=== PATIENT | male | born 1945 | race Caucasian/White ===

== ENCOUNTER 2022-12-07 10:12 | Outpatient (OUT) | payer MEDICARE, OTHER, SELFPAY ==
[2022-12-07 22:19] LABS: Anion Gap 13.2; BUN Creatinine Ratio 16.8; Calcium 8.9 mg/dL (8.5-10.1); Carbon Dioxide 28.4 mmol/L (21.0-32.0); Chloride 99 mmol/L (98-107); Estimated GFR (African America 43 (>=60); Estimated GFR (Non-African Ame 35 (>=60); Glucose 217 mg/dL (74-106); Potassium 3.6 mmol/L (3.5-5.1); Sodium 137 mmol/L (136-145)
== END 2022-12-07 10:13 ==
LOC: LAB 10:23
PROVIDERS: PCP Family Medicine; Visit Provider Nurse Practitioner Family
DX: I50.33 Acute on chronic diastolic (congestive) heart failure (principal); N18.32 Chronic kidney disease, stage 3b
CPT/HCPCS: 36415; 80048

== ENCOUNTER 2023-02-10 11:10 | Outpatient (OUT) | payer MEDICARE, OTHER, SELFPAY ==
[2023-02-10 11:43] LABS: Hematocrit 38.2 % (42.0-54.0); Hemoglobin 12.7 g/dL (14.0-18.0)
[2023-02-10 11:47] LABS: Creatinine Urine Random 67.46 mg/dL (20.00-300.00); Microalbum Creatinine Ratio Ur 25.2 mg/g (0.0-29.9); Microalbumin Urine Random 1.7 mg/dL (<=30.0)
[2023-02-10 12:13] LABS: Albumin Level 3.8 g/dL (3.4-5.0); Anion Gap 11.8; Calcium 8.7 mg/dL (8.5-10.1); Carbon Dioxide 30.2 mmol/L (21.0-32.0); Chloride 99 mmol/L (98-107); Estimated GFR (African America 45 (>=60); Estimated GFR (Non-African Ame 37 (>=60); Glucose 280 mg/dL (74-106); Magnesium 1.8 mg/dL (1.8-2.4); Phosphorus 3.9 mg/dL (2.6-4.7); Sodium 137 mmol/L (136-145); Uric Acid 7.6 mg/dL (3.5-7.2)
[2023-02-10 12:31] LABS: Bilirubin Urine NEGATIVE (NEGATIVE); Blood Urine NEGATIVE (NEGATIVE); Clarity Urine CLEAR (CLEAR); Color Urine YELLOW (YELLOW); Glucose Urine UA 250 mg/dL (NEGATIVE); Ketones Urine NEGATIVE (NEGATIVE); Leukocyte Esterase Urine NEGATIVE (NEGATIVE); Nitrite Urine NEGATIVE (NEGATIVE); Protein Urine NEGATIVE (NEG/TRACE); Specific Gravity Urine 1.015 (1.005-1.025); Urobilinogen Urine 0.2 EU/dL (0.2-1.0)
[2023-02-11 15:11] LABS: PTH, Intact 54 pg/mL (15-65)
== END 2023-02-10 11:11 | disposition home or self-care (01) ==
LOC: LAB 11:10
PROVIDERS: PCP Family Medicine
DX: N18.32 Chronic kidney disease, stage 3b (principal)
CPT/HCPCS: 36415; 80048; 81003; 82042; 82043; 82306; 82570; 83735; 83970; 84100; 84550; 85014; 85018

== ENCOUNTER 2023-03-28 13:01 | Outpatient (OUT) | payer MEDICARE, OTHER, SELFPAY ==
--- NOTE | 2023-03-28 14:02 | CA_ITS ---
Patient: JASON DEAN Exam Date: 03/28/2023 : 1945 Gender:M Ordering : [facility] Admission #: [id number] Family : Order #: [id number] CLICK HERE TO VIEW EXAM ECHOCARDIOGRAM REPORT PROCEDURE: CA ECHO DOPPLER COMPLETE INDICATIONS: Nonrheumatic aortic stenosis, Aortic valve replacement COMPARISON: None. DESCRIPTION: COMPLETE ECHOCARDIOGRAM Real-time transthoracic echocardiography with 2D, M-mode, spectral and color flow Doppler performed. QUALITY: Technical quality was good. LEFT VENTRICLE: Normal chamber size. Borderline left ventricular hypertrophy. LV EF: Global left ventricular systolic function is hyperdynamic. Calculated left ventricular ejection fraction is 70%. DIASTOLIC: Normal diastolic function. ATRIAL SEPTUM: Inadequately seen. LEFT ATRIUM: Normal chamber size. RIGHT ATRIUM: Normal chamber size. RIGHT VENTRICLE: Normal chamber size. Normal right ventricular systolic function. Pacer wire present. TRICUSPID VALVE: Normal mobility and thickness. No stenosis with mild regurgitation. No evidence of pulmonary hypertension. RVSP 33mmHg MITRAL VALVE: Normal mobility and thickness. No evidence of mitral valve stenosis. There is no mitral annular calcification. Mild mitral regurgitation. AORTIC VALVE: Bio-Prosthetic valve appears well seated in the aortic position with elevated Doppler flows; these may be exaggerated due to hyperdynamic left ventricular systolic function. DVI 0.30. No perivalvular regurgitation. No aortic regurgitation. AORTIC ROOT: Normal diameter and appearance. PULMONIC VALVE: Normal thickness and mobility. No stenosis. Trivial regurgitation. PERICARDIUM: No evidence of pericardial effusion. IVC: Collapses with inspirations. Normal size. CONCLUSION: 1. Global left ventricular systolic function is hyperdynamic; visually estimated ejection fraction is 65 to 70% 2. Borderline left ventricular hypertrophy 3. Normal diastolic function 4. The right ventricle is normal in size and systolic function 5. Mild tricuspid regurgitation 6. Mild mitral regurgitation 7. A bioprosthetic aortic valve is seen with elevated Doppler flows; these may be exaggerated due to hyperdynamic left ventricular systolic function. No significant valvular or perivalvular regurgitation Adult Echocardiography Procedure Report Left Ventricle LVEDD (3.7 - 5.6 cm): 4.29 cm LVESD (2.2 - 4.0 cm): 3.00 cm LVIVS thickness (0.6 - 1.2 cm): 1.08 cm LVPW thickness (0.5 - 1.0 cm): 1.04 cm e': 0.11 m/s E - e': 10.81 LVOT Max Gradient: 3.19 mm[Hg] LVOT Area (cm2): 0.89 m/s Peak Velocity (LVOT): 0.89 m/s Mean Velocity (LVOT): 0.57 m/s LVOT Diameter 1.96 cm Left Ventricular Ejection Fraction: 70.04 % Left Atrium LA Volume Index (2D A2C): 32.29 ml/m2 Left Atrium Systolic Dimension: 3.98 cm Mitral Valve MV E to A Ratio: 1.26 Mitral Valve A-Wave Peak Velocity: 0.92 m/s Mitral Valve E-Wave Peak Velocity: 1.17 m/s Right Ventricle RV Internal Diastolic Dimension: 3.29 cm Aorta AO Root Diam: 2.83 cm Ascending Ao Diam: 2.87 cm Aortic Valve AoV Area (Peak Jerardo): 1.00 cm2, 0.90 cm2 AoV Area (VTI): 1.02 cm2, 0.94 cm2 Peak Velocity(Antegrade Flow): 2.98 m/s, 2.39 m/s, 2.65 m/s Peak Gradient(Antegrade Flow): 35.62 mm[Hg], 22.91 mm[Hg], 28.11 mm[Hg] Mean Velocity(Antegrade Flow): 2.05 m/s, 1.67 m/s, 1.73 m/s Mean Gradient(Antegrade Flow): 18.51 mm[Hg], 12.62 mm[Hg], 13.66 mm[Hg] Velocity Time Integral: 76.92 cm, 67.10 cm, 69.69 cm Tricuspid Valve Peak Velocity (Regurgitant Flow): 2.51 m/s, 2.77 m/s, 2.74 m/s Pulmonic Valve Mean Gradient: 3.85 mm[Hg], 3.12 mm[Hg] Mean Velocity: 0.90 m/s, 0.80 m/s Peak Velocity: 1.29 m/s Peak Gradient: 7.03 mm[Hg], 6.20 mm[Hg] Right Atrium Right Atrium Systolic Pressure: 47.10 ml, 47.10 ml Dictated by: Johnathan Bowman M.D. on 03/30/2023 at 16:31 Approved by: Johnathan Bowman M.D. on 03/30/2023 at 16:37
== END 2023-03-28 13:02 | disposition home or self-care (01) ==
LOC: CARD 13:02
PROVIDERS: PCP Family Medicine; Visit Provider Nurse Practitioner Family
DX: I08.3 Combined rheumatic disorders of mitral, aortic and tricuspid valves (principal); Z95.2 Presence of prosthetic heart valve
CPT/HCPCS: 93306

== ENCOUNTER 2023-07-22 12:38 | Emergency (ER) | payer MEDICARE, OTHER, SELFPAY ==
[2023-07-22 12:49] VITALS: BP 162/66; PULSE 71; RESP 18; TEMP 36.5; O2SAT 97; BMI 27.6
--- NOTE | 2023-07-22 13:12 | ED.LOWEXI1 ---
HPI - Extremity Injury (Lower) General Chief Complaint: Extremity Injury, Lower Stated Complaint: LOW EXTREMITY PAIN Time Seen by Provider: 07/22/23 12:50 Source: patient and family Mode of arrival: Wheelchair Limitations: physical limitation History of Present Illness HPI Narrative: the patient was helping his apply a fitted sheet to the bed. He bent over and leaned and felt pain in the left hamstring. This occurred about 4 days ago. He initially had to lay on the floor until the spasms in the hamstring stopped in order to allow the muscles to calm down . The pain lessened but is not going away. He has been taking tylenol for pain. He admits that he has nt decreased his activity since the injury. No application of ice or heat at home. Related Data Previous Rx's Medication Instructions Recorded methocarbamol 750 mg tablet 750 mg PO Q6H PRN pain #30 tabs 07/22/23 Allergies Allergy/AdvReac Type Severity Reaction Status Date / Time Sulfa (Sulfonamide AdvReac Intermediate swelling Verified 07/22/23 12:49 Antibiotics) [facility] Social History Smoking status: Former smoker Exam Narrative Exam Narrative: Nurses notes and vital signs reviewed and patient is not hypoxic. afebrile General: Well-appearing and in no apparent distress. Skin: Warm, dry, no pallor noted. No rash. Cardiovascular: Regular Rate and Rhythm without murmur, gallop or rub. Normal peripheral perfusion. Respiratory: No accessory muscle use or respiratory distress. Lungs are clear to auscultation, no wheezing, rales or rhonchi Musculoskeletal: Left LE with normal ROM. Soft tissue tenderness to the left hamstring without ecchymosis, palpable mass or deficit in movement of the hip and knee. No calf or popliteal tenderness, no lower extremity edema/swelling Neurological: A&O x4. No cranial nerve dysfunction observed. No truncal ataxia. Moves all extremities. Sensation intact. Psychiatric: Cooperative and interactive. Normal mood and affect. Constitutional Vital Signs, click to edit/add: Last Vital Signs Temp 97.7 F 07/22/23 12:49 Pulse 71 07/22/23 12:49 Resp 18 07/22/23 12:49 BP 162/66 H 07/22/23 12:49 Pulse Ox 97 07/22/23 12:49 O2 Del Method Room Air 07/22/23 12:49 Course Vital Signs Vital signs: Vital Signs Temperature 97.7 F 07/22/23 12:49 Pulse Rate 71 07/22/23 12:49 Respiratory Rate 18 07/22/23 12:49 Blood Pressure 162/66 H 07/22/23 12:49 Pulse Oximetry 97 07/22/23 12:49 Oxygen Delivery Method Room Air 07/22/23 12:49 Temperature 97.7 F 07/22/23 12:49 Pulse Rate 71 07/22/23 12:49 Respiratory Rate 18 07/22/23 12:49 Blood Pressure 162/66 H 07/22/23 12:49 Pulse Oximetry 97 07/22/23 12:49 Oxygen Delivery Method Room Air 07/22/23 12:49 MDM - Extremity Injury (Lower) MDM Narrative Medical decision making narrative: Patient has a muscular strain of the left hamstring muscles. He was given reassurance and discharged home with prescription for Robaxin and recommendation to curtail activity to allow the area to heal. Discussed application of heat to the area to facilitate healing. Discharge Plan Discharge Chief Complaint: Extremity Injury, Lower Clinical Impression: Left hamstring muscle strain Qualifiers: Encounter type: initial encounter Qualified Code(s): S76.312A - Strain of muscle, fascia and tendon of the posterior muscle group at thigh level, left thigh, initial encounter Patient Disposition: Home, Self-Care Time of Disposition Decision: 13:18 Prescriptions / Home Meds: New methocarbamol 750 mg tablet 750 mg PO Q6H PRN (Reason: pain) Qty: 30 0RF Instructions: Hamstring Injury (ED), Hamstring Exercises (ED) Stand Alone Forms: Portal Instructions Referrals: Idris Donnelly MD [Primary Care Provider] - 1 week
== END 2023-07-22 13:43 | disposition home or self-care (01) ==
PROVIDERS: Emergency Provider Emergency Medicine; PCP Family Medicine
DX: S76.312A Strain of muscle, fascia and tendon of the posterior muscle group at thigh level, left thigh, initial encounter (principal); Z87.891 Personal history of nicotine dependence; X50.9XXA Other and unspecified overexertion or strenuous movements or postures, initial encounter
CPT/HCPCS: 99283

== ENCOUNTER 2023-08-09 10:54 | Outpatient (OUT) | payer MEDICARE, OTHER, SELFPAY ==
--- OUTSIDE RECORDS SUMMARY | 2023-08-09 11:13 | XMS_ITS | CCD ---
Author Name Unknown Address [address] [place] [address] Organization [facility] Care Team Providers Care Fire Sprinkler Installer Name Role Phone MASROOR, JANETH Admitting Unavailable JORGE, JANETH Attending Unavailable IDRIS JOSE Primary Care Unavailable IDRIS JOSE Referring Unavailable MASROOR, JANETH Surgeon Unavailable SC Procedure Practitioner Unavailab MINE Stafford Surgeon Unavailable SC Procedure Practitioner Unavailab GILBEROT Peña Surgeon Unavailable SC Procedure Practitioner Unavailab BRYAN Nelson AM Surgeon Unavailable SC Procedure Practitioner Unavailab Sonali Fowler Unavailable Darien Escamilla Unavailable MD Idris Jose Primary Care Provider MD Darien Escamilla Attending Provider Idris Jose Primary Care Unavailable Idris Jose Admitting Unavailable Idris Jose Attending Unavailable Idris Jose Primary Care Unavailable Idris Jose Admitting Unavailable Idris Jose Attending Unavailable Idris Jose Primary Care Unavailable Darien Escamilla Attending Unavailable Darien Escamilla Admitting Unavailable Idris Jose Primary Care Unavailable Darien Escamilla Attending Unavailable Darien Escamilla Admitting Unavailable Kylah Valenzuela Unavailable SALVADOR, DR RAJENDRA Ramírez Consulting Unavailable APLRAHEL RAMOS Admitting Unavailable APLRAHEL RAMOS Attending Unavailable DAMON, DR IDRIS Valdivia Primary Care Unavailable RAHEL HENSLEY Consulting Unavailable MISC, DR HAMPTON Admitting Unavailable MISC, DR HAMPTON Attending Unavailable MISC, DR HAMPTON Consulting Unavailable NADERER, DR IDRIS Valdivia Primary Care Unavailable NADERER, DR IDRIS Valdivia Primary Care Unavailable ORLANDO TELLEZ Consulting Unavailable ORLANDO TELLEZ Admitting Unavailable ORLANDO TELLEZ Attending Unavailable FAWWAD, ALLRED H Consulting Unavailable FAWWAD, ALLRED H Primary Care Unavailable FAWWAD, ALLRED H Admitting Unavailable FAWWAD, ALLRED H Attending Unavailable NADERER, DR IDRIS Valdivia Primary Care Unavailable ROSALINDA, ORLANDO Admitting Unavailable WEST, DR RAJENDRA Ramírez Consulting Unavailable ROSALINDA, ORLANDO Attending Unavailable ROSALINDAORLANDO Consulting Unavailable NADERER, DR IDRIS Valdivia Primary Care Unavailable YIFAN, EB Admitting Unavailable YIFAN, EB Attending Unavailable YIFAN, EB Consulting Unavailable ELTAHAWY, DR DENG Admitting Unavailable NADERER, DR IDRIS Valdivia Primary Care Unavailable ELTAHAWY, DR DENG Attending Unavailable ELTAHAWY, DR DENG Consulting Unavailable MISC, DR HAMPTON Admitting Unavailable NADERER, DR IDRIS Valdivia Primary Care Unavailable MISC, DR HAMPTON Attending Unavailable MISC, DR HAMPTON Consulting Unavailable NADERER, DR IDRIS Valdivia Consulting Unavailable NADERER, DR IDRIS Valdivia Primary Care Unavailable NADERER, DR IDRIS Valdivia Admitting Unavailable NADERER, DR IDRIS Valdivia Attending Unavailable NADERER, DR IDRIS Valdivia Consulting Unavailable MARKER ., DR PARSON Admitting Unavailable MARKER ., DR PARSON Attending Unavailable MARKER ., DR PARSON Consulting Unavailable NADERER, DR IDRIS Valdivia Primary Care Unavailable ZIEBER, DR PAPITO Sky Consulting Unavailable NADERER, DR IDRIS Valdivia Primary Care Unavailable NADERER, DR IDRIS Valdivia Admitting Unavailable NADERER, DR IDRIS Valdivia Attending Unavailable NADERER, DR IDRIS Valdivia Consulting Unavailable GRECHNY ., REUBEN AMADO Consulting Unavailabl e HAY ., DR MEMBRENO Consulting Unavailable DERROW, GEOVANNA Consulting Unavailable NEFCY, PETER Consulting Unavailable FAWWAD, ALLRED H Primary Care Unavailable FAWWAD, ALLRED H Admitting Unavailable FAWWAD, ALLRED H Attending Unavailable FAWWAD, ALLRED H Consulting Unavailable NEFCY, PETER Consulting Unavailable ELTAHAWY, KAMILAHAB Attending Unavailable YIFAN, EB Attending Unavailable ROSALINDAORLANDO Referring Unavailable ROSALINDA, ORLANDO Attending Unavailable WITHERELLAMADOR Attending Unavailable YIFAN, EB Attending Unavailable MARYCHAMP Attending Unavailable ORLANDO TELLEZ Referring Unavailable Allergies Allergy Classification Reported Allergen(s) Allergy Type Date of Onset Reaction(s) Facility (5 sources) Sulfonamides (Antibiotic); Translations: [SULFA (SULFONAMIDE ANTIBIOTICS)] Drug allergy (disorder) 02-25-20 17 Rash [facility] Repository (5 sources) Sulfonamides (Antibiotic) Propensity to adverse reactions (Ishaan) 07/31/2013 Skin Rash Skin Rash [employer] Other (1 source) Sulfonamides (Antibiotic) Drug allergy (disorder) 07-06-19 [facility] Repository Medications Current Medications Medication Drug Class(es) Dates Sig (Normalized) Sig (Original) acetaminophen 325 mg oral tablet (6 sources) Start: 06-22-2022 take 650 mg by mouth once daily Acetaminophen Active 650 MG PO Daily June 22, 2022 10:34am Start: 05-07-2020 End: 06-22-2022 take 650 mg by mouth every four hours Acetaminophen Discontinued 650 MG PO Q4H 0 June 02, 2020 12:00am June 22, 2022 10:34am amoxicillin 875 mg / clavulanate 125 mg oral tablet (1 source) Penicillin-class Antibacterial Start: 07-31-2023 take 1 tablet by mouth every twelve hours Amoxicillin-Pot Clavulanate 875-125 MG 1 tablet Orally every 12 hrs for 10 day(s) Jul, Active aspirin 81 mg delayed release oral tablet (9 sources) Platelet Aggregation Inhibitor, Nonsteroidal Anti-inflammatory Drug Start: 04-24-2020 End: 06-02-2020 take 81 mg by mouth once daily Aspirin Active 81 MG PO Daily June 02, 2020 12:00am take 1 tablet by dominic th every twenty-four hours Aspirin 81 MG 1 tablet Orally Once a day Active atorvastatin 40 mg oral tablet (9 sources) HMG-CoA Reductase Inhibitor Start: 09-26-2018 End: 06-02-2020 take 40 mg by mouth once daily in the evening Atorvastatin Active 40 MG PO Every evening June 02, 2020 12:00am azelastine hydrochloride 0.137 mg/actuat metered dose nasal spray (2 sources) Histamine-1 Receptor Antagonist Start: 06-02-2020 Azelastine Active 1 SPRAY NARES-BOTH Daily at bedtime 11 29June 02, 2020 12:00am carvedilol 25 mg oral tablet (11 sources) alpha-Adrenergic Robert, beta-Adrenergic Robert Start: 06-22-2022 take 12.5 mg by mouth twice daily at mealtime Carvedilol Active 12.5 MG PO Twice daily with meals June 22, 2022 10:34am Start: 04-24-2020 End: 06-22-2022 take 25 mg by mouth twice daily at mealtime Carvedilol Discontinued 25 MG PO Twice daily with meals 60 June 02, 2020 12:00am June 22, 2022 10:34am cephalexin 500 mg oral capsule (1 source) Cephalosporin Antibacterial Start: 07-06-2022 take 500 mg by mouth three times daily Cephalexin Active 500 MG PO Three times daily July 06, 2022 12:00am gabapentin 600 mg oral tablet (4 sources) Anti-epileptic Agent Start: 04-24-2020 End: 06-02-2020 take 600 mg by mouth three times daily Gabapentin Active 600 MG PO Three times daily 90 June 02, 2020 12:00am glimepiride 2 mg oral tablet (9 sources) Sulfonylurea Start: 09-26-2018 End: 06-02-2020 take 2 mg by mouth once daily at breakfast Glimepiride Active 2 MG PO Daily with breakfast 30 June 02, 2020 12:00am omeprazole 20 mg delayed release oral capsule (11 sources) Proton Pump Inhibitor Start: 06-02-2020 take 20 mg by mouth twice daily Omeprazole Active 20 MG PO Twice daily 60 June 02, 2020 12:00am Start: 05-07-2020 End: 06-02-2020 take 20 mg by mouth once daily Omeprazole Discontinued 20 MG PO Daily 0 May 07, 2020 1:26pm June 02, 2020 1:26pm Start: 04-24-2020 End: 05-07-2020 take 20 mg by mouth twice daily Omeprazole Discontinue d 20 MG PO Twice daily April 23, 2020 11:00pm May 07, 2020 3:16pm take 2 capsules by m outh every twenty-four hours Omeprazole 20 MG 2 capsules Orally Once a day Active oxyCODONE hydrochloride 5 mg oral tablet (1 source) Opioid Agonist Start: 07-06-2022 take 5-10 mg by mouth every six hours Oxycodone Active 5 - 10 MG PO Q6H 30 July 06, 2022 Start: 07-06-2022 take 5-10 mg by mout h every six hours Oxycodone Active 5 - 10 MG PO Q6H 30 July 06, 2022 pioglitazone 30 mg oral tablet (2 sources) Peroxisome Proliferator Receptor alpha Agonist, Peroxisome Proliferator Receptor gamma Agonist, Thiazolidinedione Start: 06-22-2022 take 30 mg by mouth once daily in the morning Pioglitazone Active 30 MG PO Every morning June 22, 2022 12:00am rivaroxaban 20 mg oral tablet (6 sources) Factor Xa Inhibitor Start: 05-25-2020 End: 06-22-2022 take 1 tablet by mouth once daily in the morning Rivaroxaban (Xarelto) 20 mg tablet Active 20 MG PO Every morning June 22, 2022 10:34am Start: 05-25-2020 End: 06-22-2022 take 1 tablet by mouth twice daily Rivaroxaban (Xarelto) 15 mg Tablet Discontinued 15 MG PO Twice daily 21 04May 25, 2020 12:00am June 22, 2022 10:25am tamsulosin hydrochloride 0.4 mg oral capsule (9 sources) alpha-Adrenergic Robert Start: 09-26-2018 End: 06-02-2020 take 0.4 mg by mouth once daily Tamsulosin Active 0.4 MG PO Daily after supper June 02, 2020 12:00am Warfarin (5 sources) Vitamin K Antagonist Warfarin So dium Active Completed/Discontinued Medications Medication Drug Class(es) Dates Sig (Normalized) Sig (Original) amLODIPine 5 mg oral tablet (2 sources) Dihydropyridine Calcium Channel Robert Start: 05-07-20 End: 06-02-20 take 10 mg by mouth once daily Amlodipine Discontinued 10 MG PO Daily May 07, 2020 12:00am June 02, 2020 1:26pm azelastine / fluticasone (2 sources) Corticosteroid, Histamine-1 Receptor Antagonist Start: 09-27-19 End: 06-02-20 Azelastine-Fluticasone Discontinued 1 SPRAY INTRANASAL Bedtime September 25, 2018 11:00pm June 02, 2020 1:26pm Balsam Ana Maria-Locke Oil (Venelex) Ointment (2 sources) Start: 06-02-20 End: 06-22-20 Balsam Ana Maria-Locke Oil (Venelex) Ointment Discontinued 1 APPLIC TOPICAL Three times daily June 02, 2020 12:00am June 22, 2022 10:19am citalopram 10 mg oral tablet (2 sources) Serotonin Reuptake Inhibitor Start: 06-02-20 End: 06-22-20 take 10 mg by mouth once daily in the morning Citalopram Discontinued 10 MG PO Every morning June 02, 2020 12:00am June 22, 2022 10:22am docusate sodium 100 mg oral capsule (2 sources) Start: 06-02-20 End: 06-22-20 take 1 capsule by mouth twice daily Docusate Sodium (Dok) 100 mg Capsule Discontinued 100 MG PO Twice daily 60 June 02, 2020 12:00am June 22, 2022 10:22am doxazosin 4 mg oral tablet (7 sources) alpha-Adrenergic Robert Start: 09-27-19 End: 06-02-20 take 1 tablet by mouth once daily Doxazosin Discontinued 1 TAB PO Daily September 25, 2018 11:00pm June 02, 2020 1:26pm hydroCHLOROthiazide 50 mg oral tablet (2 sources) Thiazide Diuretic Start: 09-27-19 End: 04-24-20 take 50 mg by mouth once daily Hydrochlorothiazide Discontinued 50 MG PO Daily September 25, 2018 11:00pm April 24, 2020 2:17pm 3 ml insulin aspart, human 100 unt/ml pen injector (2 sources) Insulin Analog Start: 05-07-20 End: 06-02-20 Insulin Aspart U-100 (Novolog Flexpen U-100 Insulin) 100 unit/mL (3 mL) Insulin Pen Discontinued 0 UNITS SUBCUT 3X/Day with meals and bedtime May 07, 2020 12:00am June 02, 2020 1:26pm 3 ml insulin detemir 100 unt/ml pen injector (4 sources) Insulin Analog Start: 05-07-20 End: 06-22-20 Insulin Detemir U-100 (Levemir Flextouch U-100 Insuln) 100 unit/mL (3 mL) Insulin Pen Discontinued 12 UNITS SUBCUT Daily 4 June 02, 2020 12:00am June 22, 2022 10:23am lisinopril 40 mg oral tablet (2 sources) Angiotensin Converting Enzyme Inhibitor Start: 09-27-19 End: 04-24-20 take 1 tablet by mouth once daily Lisinopril Discontinued 1 TAB PO Daily September 25, 2018 11:00pm April 24, 2020 2:17pm suprep bowel prep kit 17.5-3.13-1.6 gm/177ml solution (5 sources) Start: 09-22-19 19 Suprep Bowel Prep Kit 17.5-3.13-1.6 GM/177ML 177ml at 4pm, 177ml at 11pm the day prior to colonoscopy Orally bid for 1 days PLEASE FILL WITH GENERIC IF SUPREP NOT COVERED BY INS Aug, Not-Taking/PRN Start: 09-21-2018 Suprep Bowel P rep Kit 17.5-3.13-1.6 GM/177ML 177ml at 4pm, 177ml at 11pm the day prior to colonoscopy Orally bid for 1 days PLEASE FILL WITH GENERIC IF SUPREP NOT COVERED BY INS Aug, Active montelukast 10 mg oral tablet (11 sources) Leukotriene Receptor Antagonist Start: 09-26-2018 End: 06-22-2022 take 10 mg by mouth once daily Montelukast Discontinued 10 MG PO Daily June 02, 2020 12:00am June 22, 2022 10:34am mupirocin 0.02 mg/mg topical ointment (2 sources) RNA Synthetase Inhibitor Antibacterial Start: 09-26-2018 End: 04-24-2020 apply 1 [IU] topically at bedtime Mupirocin Discontinued 1 UNIT TOPICAL Bedtime September 25, 2018 11:00pm April 24, 2020 2:18pm nebivolol 10 mg oral tablet (2 sources) Start: 09-26-2018 End: 04-24-2020 take 1 tablet by mouth once daily Nebivolol Discontinued 1 TAB PO Daily September 25, 2018 11:00pm April 24, 2020 2:18pm pantoprazole 40 mg delayed release oral tablet (4 sources) Proton Pump Inhibitor Start: 06-22-2022 End: 07-06-2022 take 40 mg by mouth once daily Pantoprazole Discontinued 40 MG PO Daily June 22, 2022 12:00am July 06, 2022 6:17am Start: 09-26-2018 End: 04-24-2020 take 1 tablet by mouth twice daily Pantoprazole Discontinued 1 TAB PO Twice daily September 25, 2018 11:00pm April 24, 2020 2:18pm rOPINIRole 0.25 mg oral tablet (13 sources) Nonergot Dopamine Agonist Start: 09-26-2018 End: 06-22-2022 take 0.25 mg by mouth once daily Ropinirole Discontinued 0.25 MG PO Daily June 22, 2022 12:00am June 22, 2022 10:36am torsemide 5 mg oral tablet (2 sources) Loop Diuretic Start: 09-26-2018 End: 04-24-2020 take 1 tablet by mouth once daily Torsemide Discontinued 1 TAB PO Daily September 25, 2018 11:00pm April 24, 2020 2:18pm Problems Active Problems Problem Classification Problem Date Documented Da te Episodic/Chronic Abdominal pain (5 sources) Left upper quadrant pain; Translations: [Left upper quadrant pain] Episodic Administrative/social admission (2 sources) Other reduced mobility; Translations: [Impaired mobility and activities of daily living] 05-08-2020 Episodic Anxiety disorders (2 sources) Anxiety; Translations: [Anxiety disorder, unspecified] 05-09-2020 Chronic Cancer of prostate (1 source) Personal history of malignant neoplasm of prostate; Translations: [PERSONAL HX MALIG NEOPLASM PROSTATE] Onset: 3 Episodic Cardiac dysrhythmias (6 sources) Paroxysmal atrial fibrillation; Translations: [PAROXYSMAL ATRIAL FIBRILLATION] Onset: 2 Chronic Chronic kidney disease (1 source) Chronic kidney disease, unspecified; Translations: [CHRONIC KIDNEY DISEASE UNSPECIFIED] Onset: 2 Chronic Chronic kidney disease (6 sources) Chronic kidney disease; Translations: [CHRONIC KIDNEY DISEASE STAGE 3B] Onset: 2 Conduction disorders (4 sources) Unspecified right bundle-branch block; Translations: [Presence of cardiac pacemaker] Onset: 2 Chronic Congestive heart failure; nonhypertensive (6 sources) Acute on chronic diastolic (congestive) heart failure; Translations: [ACUTE ON CHRONIC DIASTOLIC CHF] Onset: 3 Chronic Diabetes mellitus with complications (5 sources) Type 2 diabetes mellitus with diabetic chronic kidney disease; Translations: [Type 2 diabetes mellitus with hyperglycemia] Onset: 2 Chronic Diabetes mellitus without complication (1 source) Type 2 diabetes mellitus without complications; Translations: [TYPE 2 DM WITHOUT COMPLICATIONS] Onset: 2 Chronic Diseases of white blood cells (2 sources) Leukocytosis; Translations: [Elevated white blood cell count, unspecified] 05-08-2020 Chronic Disorders of lipid metabolism (1 source) Hyperlipidemia, unspecified; Translations: [HYPERLIPIDEMIA UNSPECIFIED] Onset: 2 Chronic E Codes: Natural/environment (1 source) Bitten by cat, initial encounter Episodic Esophageal disorders (5 sources) Gastroesophageal reflux disease; Translations: [Gastro-esophageal reflux disease without esophagitis] Chronic Essential hypertension (7 sources) Essential hypertension; Translations: [Essential (primary) hypertension] Onset: 2 Chronic Heart valve disorders (9 sources) Presence of prosthetic heart valve; Translations: [Nonrheumatic aortic (valve) stenosis] Onset: 2 Chronic Hypertension with complications and secondary hypertension (1 source) Hypertensive chronic kidney disease with stage 1 through stage 4 chronic kidney disease, or unspecified chronic kidney disease; Translations: [HTN CKD W/STAGE 1-4 CKD/UNS CKD] Onset: 2 Chronic Open wounds of extremities (1 source) Open bite of left hand, initial encounter Episodic Other aftercare (3 sources) Long-term current use of anticoagulant; Translations: [half-way (current) use of anticoagulants] Episodic Other and unspecified benign neoplasm (2 sources) History of polyp of colon; Translations: [Personal history of colonic polyps] 10-02-2018 Episodic Other circulatory disease (2 sources) Orthostatic hypotension; Translations: [Orthostatic hypotension] 05-22-2020 Episodic Other gastrointestinal disorders (2 sources) Dysphagia; Translations: [Dysphagia, unspecified] 05-11-2020 Episodic Other hereditary and degenerative nervous system conditions (2 sources) Restless legs; Translations: [Restless legs syndrome] 05-19-2020 Chronic Other nervous system disorders (7 sources) Cervical myelopathy; Translations: [Disease of spinal cord, unspecified] 04-30-2020 Chronic Other nervous system disorders (6 sources) Carpal tunnel syndrome; Translations: [Carpal tunnel syndrome, bilateral upper limbs] 07-06-2022 Chronic Other nervous system disorders (4 sources) Carpal tunnel syndrome of left wrist; Translations: [Carpal tunnel syndrome, left upper limb] Chronic Other nervous system disorders (1 source) Disease of spinal cord, unspecified Onset: 2 Resolved: 2 Chronic Other nervous system disorders (2 sources) Carpal tunnel syndrome, left upper limb Onset: 2 Resolved: 2 Chronic Other nervous system disorders (2 sources) Postoperative pain ; Translations: [Other acute postprocedural pain] 05-08-2020 Episodic Other nervous system disorders (2 sources) Abnormal gait; Translations: [Unspecified abnormalities of gait and mobility] 05-08-2020 Episodic Paralysis (2 sources) Tetraplegia; Translations: [Quadriplegia, C5-C7 incomplete] 05-08-2020 Chronic Residual codes; unclassified (2 sources) Difficulty sleeping ; Translations: [Sleep deprivation] 05-19-2020 Episodic Residual codes; unclassified (2 sources) Patient encounter status; Translations: [Encounter for prophylactic measures, unspecified] 05-08-2020 Episodic Residual codes; unclassified (1 source) Other specified postprocedural states Episodic Spondylosis; intervertebral disc disorders; other back problems (5 sources) Prolapsed cervical intervertebral disc; Translations: [Other cervical disc displacement, high cervical region] Chronic Unclassified (1 source) Carpal tunnel syndrome, left upper limb; Translations: [Carpal tunnel syndrome, left upper limb] Onset: 3 Unclassified (1 source) Encounter for preprocedural laboratory examination; Translations: [Encounter for preprocedural laboratory examination] Onset: 2 Unclassified (1 source) Encounter for checking and testing of cardiac pacemaker pulse generator [battery]; Translations: [Encounter for checking and testing of cardiac pacemaker pulse generator [battery]] Onset: 2 Unclassified (3 sources) LOW BACK PAIN, UNSPECIFIED; Translations: [LOW BACK PAIN, UNSPECIFIED] Onset: 3 Unclassified (4 sources) CONTACT W/AND (SUSP) EXPOS COVID-19; Translations: [CONTACT W/AND (SUSP) EXPOS COVID-19] Onset: 2 Past or Other Problems Problem Classification Problem Date Documented Date Episodic/Chronic Complications of surgical procedures or medical care (4 sources) Postprocedural hemorrhage of skin and subcutaneous tissue following a dermatologic procedure; Translations: [POSTP H SKIN AND SC TISS FLW DERM PCR] Onset: 05-12-2022 Episodic Other aftercare (2 sources) half-way (current) use of anticoagulants; Translations: [PENITENTIARY CURRNT USE ANTICOAGULANTS] Onset: 05-16-2022 Episodic Other aftercare (1 source) Other long lines operator (current) drug therapy; Translations: [OTH BARTENDER CURRENT DRUG THERAPY] Onset: 05-16-2022 Episodic Other aftercare (1 source) half-way (current) use of aspirin; Translations: [BARTENDER CURRENT USE OF ASPIRIN] Onset: 05-16-2022 Episodic Other connective tissue disease (1 source) Arthrodesis status Onset: 03-18-2022 Resolved: 03-18-2022 Episodic Other connective tissue disease (3 sources) Facial weakness; Translations: [FACIAL WEAKNESS] Onset: 12-15-2021 Episodic Other lower respiratory disease (1 source) Other nonspecific abnormal finding of lung field; Translations: [OTH NONSPECIFIC ABN FIND LNG FIELD] Onset: 04-06-2022 Episodic Other nervous system disorders (1 source) Cedeño's palsy; 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] Onset: 12-20-2021 Episodic Other non-traumatic joint disorders (1 source) Pain in right knee; Translations: [Acute pain of right knee M25.561] Onset: 05-01-2021 Resolved: 05-01-2021 Episodic Other non-traumatic joint disorders (1 source) Pain in right ankle and joints of right foot; Translations: [Acute right ankle pain M25.571] Onset: 05-01-2021 Resolved: 05-01-2021 Episodic Other screening for suspected conditions (not mental disorders or infectious disease) (1 source) Encounter for screening for malignant neoplasm of prostate; Translations: [ENC SCREEN MALIG NEOPLASM PROSTATE] Onset: 12-16-2021 Episodic Screening and history of mental health and substance abuse codes (1 source) Personal history of nicotine dependence; Translations: [PERSONAL HISTORY OF NICOTINE DEPEND] Onset: 05-16-2022 Episodic Spondylosis; intervertebral disc disorders; other back problems (2 sources) Spinal stenosis, cervical region; Translations: [Spinal stenosis, cervical region] Onset: 01-28-2022 Episodic Sprains and strains (2 sources) Sprain of unspecified site of right knee, initial encounter; Translations: [Sprain of unspecified ligament of right ankle, initial encounter] Onset: 05-01-2021 Resolved: 05-01-2021 Episodic Unclassified (1 source) LOW BACK PAIN, UNSPECIFIED; Translations: [LOW BACK PAIN, UNSPECIFIED] Onset: 11-14-2022 Unclassified (1 source) CONTACT W/AND (SUSP) EXPOS COVID-19; Translations: [CONTACT W/AND (SUSP) EXPOS COVID-19] Onset: 04-19-2022 Results Test Name Value Interpretation Reference Range Facility Office Visiton 05-04-2023 Follow-up visit [id number] Jason Bartholomew 1945 Date Provider Department Center 05/04/2023 [id number] MEYER CARD [facility] Family History Problem Relation Age of Onset Heart failure Mother Stroke Brother Heart failure Brother Family Status - Relation Status Age at Mother Brother Level of Service:65159 SC OFFICE/OUTPATIENT ESTABLISHED LOW MDM 20-29 MIN Normal [facility] Office Visiton 04-05-2023 Follow-up visit [id number] Jason Bartholomew 1945 Provider Department Center 04/05/2023 [id number] STOVER CARD [facility] Family History Problem Relation Age of Onset Heart failure Mother Stroke Brother Heart failure Brother Family Status - Relation Status Age at Mother Brother Level of Service:60307 SC OFFICE/OUTPATIENT ESTABLISHED MOD MDM 30-39 MIN Normal [facility] 37on 12-07-2022 37 *Recommend to take acetaminophen or tylenol instead of ibuprofen/aleve/mot rin *Get blood work done to check kidney function *Monitor BP at home. If BP continues to run elevated let us know. Normal [facility] Office Visiton 12-07-2022 Follow-up visit [id number] Jason Bartholomew 1945 Date Provider Department Center 12/07/2022 [id number] HERNANDEZ CARD [facility] Family History Problem Relation Age of Onset Heart failure Mother Stroke Brother Heart failure Brother Family Status - Relation Status Age at Mother Brother Level of Service:79261 SC OFFICE/OUTPATIENT ESTABLISHED MOD MDM 30-39 MIN Reason for Visit and Comments: Congestive Heart Failure [127] Normal [facility] Office Visiton 11-30-2022 Follow-up visit [id number] Jason Bartholomew 1945 Date Provider Department Center 11/30/2022 [id number] SAHA CARD [facility] Family History Problem Relation Age of Onset Heart failure Mother Stroke Brother Heart failure Brother Family Status - Relation Status Age at Mother Brother Level of Service:51871 SC OFFICE/OUTPATIENT ESTABLISHED MOD MDM 30-39 MIN Normal [facility] PROF CHEM 8 (BAS METB)on Anion gap [Moles/Vol] 11.0 mmol/L Normal [facility] Comment on above: Performed By: #### M G, BMP, URIC, ALB, PHOS #### [facility] [facility] [address] [place] [address] Dr. Terence Love Calcium [Mass/Vol] 9.2 mg/dL Normal 8.5-10.1 [facility] Comment on above: Performed By: #### M G, BMP, URIC, ALB, PHOS #### [facility] [address] [place] [address] Dr. Terence Love Chloride [Moles/Vol] 101 mmol/L Normal 98-107 [facility] Comment on above: Performed By: #### M G, BMP, URIC, ALB, PHOS #### [facility] [address] [place] [address] Dr. Terence Love CO2 [Moles/Vol] 32.1 mmol/L Critically high 21.0-32.0 [facility] Comment on above: Performed By: #### M G, BMP, URIC, ALB, PHOS #### [facility] [address] [place] [address] Dr. Terence Love Creatinine [Mass/Vol] 1.70 mg/dL Critically high 0.70-1.30 [facility] Comment on above: Performed By: #### M G, BMP, URIC, ALB, PHOS #### [facility] [address] [place] [address] Dr. Terence Love EGFR-AF CHILEAN 47 mL/min/1.73m2 Critically low >=60 [facility] Comment on above: Performed By: #### M G, BMP, URIC, ALB, PHOS #### [facility] [address] [place] [address] Dr. Terence Love EGFR-NON AF CHILEAN 39 mL/min/1.73m2 Critically low >=60 [facility] Comment on above: Performed By: #### M G, BMP, URIC, ALB, PHOS #### [facility] [address] [place] [address] Dr. Terence Love Glucose [Mass/Vol] 188 mg/dL Critically high 74-106 T [facility] Comment on above: Performed By: #### M G, BMP, URIC, ALB, PHOS #### [facility] [address] [place] [address] Dr. Terence Love Potassium [Moles/Vol] 4.1 mmol/L Normal 3.5-5.1 [facility] Comment on above: Performed By: #### M G, BMP, URIC, ALB, PHOS #### [facility] [address] [place] [address] Dr. Terence Love Sodium [Moles/Vol] 140 mmol/L Normal 136-145 [facility] Comment on above: Performed By: #### M G, BMP, URIC, ALB, PHOS #### [facility] [address] [place] [address] Dr. Terence Love Urea nitrogen [Mass/Vol] 26.0 mg/dL Critically high 7.0-18.0 [facility] Comment on above: Performed By: #### M G, BMP, URIC, ALB, PHOS #### [facility] [address] [place] [address] Dr. Terence Love Urea nitrogen/Creatinine [Mass ratio] 15.3 mg/mg Normal [facility] Comment on above: Performed By: #### M G, BMP, URIC, ALB, PHOS #### [facility] [address] [place] [address] Dr. Terence Love BNPon 11-17-2022 Natriuretic peptide B (Bld) [Mass/Vol] 305.0 pg/mL Normal <=1,800.0 [facility] Comment on above: Performed By: #### M G, BMP, URIC, ALB, PHOS #### [facility] [address] [place] [address] Dr. Terence Love CBC AUTO DIFFon 11-17-2022 BASO # 0.0 103/ul Normal 0.0-0.1 [facility] Comment on above: Performed By: #### M G, BMP, URIC, ALB, PHOS #### [facility] [address] [place] [address] Dr. Terence Love Basophils/100 WBC (Bld) 0.5 % Normal 0.2-2.0 [facility] Comment on above: Performed By: #### M G, BMP, URIC, ALB, PHOS #### [facility] [address] [place] [address] Dr. Terence Love EO # 0.1 103/ul Normal 0.0-0.7 [facility] Comment on above: Performed By: #### M G, BMP, URIC, ALB, PHOS #### [facility] [address] [place] [address] Dr. Terence Love Eosinophils/100 WBC (Bld) 2.0 % Normal 0.9-7.0 [facility] Comment on above: Performed By: #### M G, BMP, URIC, ALB, PHOS #### [facility] [address] [place] [address] Dr. Terence Love Erythrocyte distribution width (RBC) [Ratio] 14.5 % Normal 11.0-15.0 [facility] Comment on above: Performed By: #### M G, BMP, URIC, ALB, PHOS #### [facility] [address] [place] [address] Dr. Terence Love Hematocrit (Bld) [Volume fraction] 40.8 % Critically low 42.0-54.0 [facility] Comment on above: Performed By: #### M G, BMP, URIC, ALB, PHOS #### [facility] [address] [place] [address] Dr. Terence Love Hemoglobin (Bld) [Mass/Vol] 13.3 g/dL Critically low 14.0-18.0 [facility] Comment on above: Performed By: #### M G, BMP, URIC, ALB, PHOS #### [facility] [address] [place] [address] Dr. Terence Love IG # 0.02 10e3/ul Normal 0.00-0.03 [facility] Comment on above: Performed By: #### M G, BMP, URIC, ALB, PHOS #### [facility] [address] [place] [address] Dr. Terence Love IG % 0.3 % Normal 0.0-0.5 [facility] Comment on above: Performed By: #### M G, BMP, URIC, ALB, PHOS #### [facility] [address] [place] [address] Dr. Terence Love LYMPH # 1.1 103/ul Critically low 1.2-3.8 [facility] Comment on above: Performed By: #### M G, BMP, URIC, ALB, PHOS #### [facility] [address] [place] [address] Dr. Terence Love Lymphocytes/100 WBC (Bld) 18.9 % Critically low 20.5-60.0 [facility] Comment on above: Performed By: #### M G, BMP, URIC, ALB, PHOS #### [facility] [address] [place] [address] Dr. Terence Love MANUAL DIFF REQ NO Normal [facility] Comment on above: Performed By: #### M G, BMP, URIC, ALB, PHOS #### [facility] [address] [place] [address] Dr. Terence Love MCH (RBC) [Entitic mass] 30.2 pg Normal 25.9-34.0 [facility] Comment on above: Performed By: #### M G, BMP, URIC, ALB, PHOS #### [facility] [address] [place] [address] Dr. Terence Love MCHC (RBC) [Mass/Vol] 32.6 g/dL Normal 29.9-35.2 [facility] Comment on above: Performed By: #### M G, BMP, URIC, ALB, PHOS #### [facility] [address] [place] [address] Dr. Terence Love MCV (RBC) [Entitic vol] 92.5 fL Normal 80.0-94.0 [facility] Comment on above: Performed By: #### M G, BMP, URIC, ALB, PHOS #### [facility] [address] [place] [address] Dr. Terence Love MONO # 0.7 103/ul Normal 0.3-0.8 [facility] Comment on above: Performed By: #### M G, BMP, URIC, ALB, PHOS #### [facility] [address] [place] [address] Dr. Terence Love Monocytes/100 WBC (Bld) 10.9 % Normal 1.7-12.0 [facility] Comment on above: Performed By: #### M G, BMP, URIC, ALB, PHOS #### [facility] [address] [place] [address] Dr. Terence Love NEUT # 4.1 103/ul Normal 1.4-6.5 [facility] Comment on above: Performed By: #### M G, BMP, URIC, ALB, PHOS #### [facility] [address] [place] [address] Dr. Terence Love Neutrophils/100 WBC (Bld) 67.4 % Normal 43.0-75.0 [facility] Comment on above: Performed By: #### M G, BMP, URIC, ALB, PHOS #### [facility] [address] [place] [address] Dr. Terence Love Platelet mean volume (Bld) [Entitic vol] 10.6 fL Normal 9.5-13.5 [facility] Comment on above: Performed By: #### M G, BMP, URIC, ALB, PHOS #### [facility] [address] [place] [address] Dr. Terence Love PLT 219 103/ul Normal 150-450 [facility] Comment on above: Performed By: #### M G, BMP, URIC, ALB, PHOS #### [facility] [address] [place] [address] Dr. Terence Love RBC 4.41 106/ul Critically low 4.70-6.10 [facility] Comment on above: Performed By: #### M G, BMP, URIC, ALB, PHOS #### [facility] [address] [address] [address] Terence Love WBC 6.0 103/ul Normal 4.0-11.0 [facility] Comment on above: Performed By: #### M G, BMP, URIC, ALB, PHOS #### [facility] [address] [place] [address] Dr. Terence Love PROF 14(COMP METB)on 023 Albumin [Mass/Vol] 3.9 g/dL Normal 3.4-5.0 [facility] Comment on above: Performed By: #### M G, BMP, URIC, ALB, PHOS #### [facility] [address] [place] [address] Dr. Terence Love Albumin/Globulin [Mass ratio] 1.1 {ratio} Normal [facility] Comment on above: Performed By: #### M G, BMP, URIC, ALB, PHOS #### [facility] [address] [place] [address] Dr. Terence Love ALP [Catalytic activity/Vol] 69 U/L Normal 46-116 [facility] Comment on above: Performed By: #### M G, BMP, URIC, ALB, PHOS #### [facility] [address] [place] [address] Dr. Terence Love ALT [Catalytic activity/Vol] 33 U/L Normal 16-63 [facility] Comment on above: Performed By: #### M G, BMP, URIC, ALB, PHOS #### [facility] [address] [place] [address] Dr. Terence Love Anion gap [Moles/Vol] 11.9 mmol/L Normal [facility] Comment on above: Performed By: #### M G, BMP, URIC, ALB, PHOS #### [facility] [address] [place] [address] Dr. Terence Love AST [Catalytic activity/Vol] 21 U/L Normal 15-37 [facility] Comment on above: Performed By: #### M G, BMP, URIC, ALB, PHOS #### [facility] [address] [place] [address] Dr. Terence Love Bilirubin [Mass/Vol] 0.6 mg/dL Normal 0.2-1.0 [facility] Comment on above: Performed By: #### M G, BMP, URIC, ALB, PHOS #### [facility] [address] [place] [address] Dr. Terence Love Calcium [Mass/Vol] 9.3 mg/dL Normal 8.5-10.1 [facility] Comment on above: Performed By: #### M G, BMP, URIC, ALB, PHOS #### [facility] [address] [place] [address] Dr. Terence Love Chloride [Moles/Vol] 101 mmol/L Normal 98-107 [facility] Comment on above: Performed By: #### M G, BMP, URIC, ALB, PHOS #### [facility] [address] [place] [address] Dr. Terence Love CO2 [Moles/Vol] 31.3 mmol/L Normal 21.0-32.0 [facility] Comment on above: Performed By: #### M G, BMP, URIC, ALB, PHOS #### [facility] [address] [place] [address] Dr. Terence Love Creatinine [Mass/Vol] 1.94 mg/dL Critically high 0.70-1.30 [facility] Comment on above: Performed By: #### M G, BMP, URIC, ALB, PHOS #### [facility] [address] [place] [address] Dr. Terence Love EGFR-AF CHILEAN 41 mL/min/1.73m2 Critically low >=60 [facility] Comment on above: Performed By: #### M G, BMP, URIC, ALB, PHOS #### [facility] [address] [place] [address] Dr. Terence Love EGFR-NON AF CHILEAN 34 mL/min/1.73m2 Critically low >=60 [facility] Comment on above: Performed By: #### M G, BMP, URIC, ALB, PHOS #### [facility] [address] [place] [address] Dr. Terence Love Globulin (S) [Mass/Vol] 3.5 g/dL Normal [facility] Comment on above: Performed By: #### M G, BMP, URIC, ALB, PHOS #### [facility] [address] [place] [address] Dr. Terence Love Glucose [Mass/Vol] 127 mg/dL Critically high 74-106 [facility] Comment on above: Performed By: #### M G, BMP, URIC, ALB, PHOS #### [facility] [address] [place] [address] Dr. Terence Love Potassium [Moles/Vol] 4.2 mmol/L Normal 3.5-5.1 [facility] Comment on above: Performed By: #### M G, BMP, URIC, ALB, PHOS #### [facility] [address] [place] [address] Dr. Terence Love Protein [Mass/Vol] 7.4 g/dL Normal 6.4-8.2 [facility] Comment on above: Performed By: #### M G, BMP, URIC, ALB, PHOS #### [facility] [address] [place] [address] Dr. Terence Love Sodium [Moles/Vol] 140 mmol/L Normal 136-145 [facility] Comment on above: Performed By: #### M G, BMP, URIC, ALB, PHOS #### [facility] [address] [place] [address] Dr. Terence Love Urea nitrogen [Mass/Vol] 26.0 mg/dL Critically high 7.0-18.0 [facility] Comment on above: Performed By: #### M G, BMP, URIC, ALB, PHOS #### [facility] [address] [place] [address] Dr. Terence Love Urea nitrogen/Creatinine [Mass ratio] 13.4 mg/mg Normal [facility] Comment on above: Performed By: #### M G, BMP, URIC, ALB, PHOS #### [facility] [address] [address] [address] Terence Love XR CHEST 2 Von 11-17-2022 XR CHEST 2 V EXAM: XR CHEST 2 V HISTORY: Acute on chronic diastolic heart failure COMPARISON: 12/15/2021 TECHNIQUE: Upright PA and lateral chest x-ray FINDINGS: The heart is not enlarged and the vasculature is not distended. 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 No acute infiltrate, effusion or pneumothorax is identified. The osseous structures are grossly intact. There is evidence of prior surgery to the left shoulder. IMPRESSION: No acute infiltrate or evidence of cardiac decompensation. The overall appearance of the chest is unchanged. Electronically authenticated by: GEORGIE CHARLES Date: 2022-11-17 13:11 Normal [facility] CT LSPINE WO CONon 3 CT LSPINE WO CON EXAMINATION: CT LSPINE WO CON HISTORY: Low back pain COMPARISON: 02/21/2020 TECHNIQUE: Axial, Coronal, and Sagittal CT images were created without I.V. contrast material. Dose reduction techniques were achieved by using automated exposure control and/or adjustment of mA and/or kV according to patient size and/or use of iterative reconstruction technique. FINDINGS: PARASPINAL AREA: Normal with no visible mass. Stents of atherosclerosis BONES: Normal alignment with no acute fracture or spondylolisthesis. Moderate degenerative spondylosis and facet osteoarthropathy. DISC LEVELS: 12-L1: Early degenerative disc disease is present without focal protrusion or neural impingement. L1-L2: Early degenerative disc disease is present without focal protrusion or neural impingement. L2-L3: Early degenerative disc disease is present without focal protrusion or neural impingement. L3-L4: Early degenerative disc disease is present without focal protrusion or neural impingement. L4-L5: Severe disc space narrowing with endplate sclerosis and vacuum disc. Moderate diffuse disc/osteophyte complex and facet osteoarthropathy. No definite central canal stenosis. Moderate bilateral foraminal stenosis. L5-S1: Severe disc space narrowing with endplate sclerosis and vacuum disc. Moderate diffuse disc/osteophyte complex and facet osteoarthropathy. No definite central canal stenosis. Moderate bilateral foraminal stenosis. 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 where bilateral foraminal stenosis is observed Electronically authenticated by: RAJENDRA FRANCO Date: 2022-11-15 07:36 Normal [facility] Office Visiton 09-20-2022 Follow-up visit [id number] Jason Bartholomew A 1945 M Date Provider Department Center 09/20/2022 [place] [facility] Family History Problem Relation Age of Onset Heart failure Mother Stroke Brother Heart failure Brother Family Status - Relation Status Age at Mother Brother Level of Service:54950 [place] OFFICE/OUTPATIENT ESTABLISHED MOD MDM 30-39 MIN Reason for Visit and Comments: Follow-up [658348] - 6 month Normal [facility] ALBUMINon 08-12-2022 Albumin [Mass/Vol] 3.8 g/dL Normal 3.4-5.0 [facility] Comment on above: Performed By: #### M G, BMP, URIC, ALB, PHOS #### [facility] [address] [place] [address] Dr. Terence Love HEMOGRAM AND PLATELon 2022 Hematocrit (Bld) [Volume fraction] 38.3 % Critically low 42.0-54.0 [facility] Comment on above: Performed By: #### M G, BMP, URIC, ALB, PHOS #### [facility] [address] [place] [address] Dr. Terence Love Hemoglobin (Bld) [Mass/Vol] 12.5 g/dL Critically low 14.0-18.0 [facility] Comment on above: Performed By: #### M G, BMP, URIC, ALB, PHOS #### [facility] [address] [place] [address] Dr. Terence Love MCH (RBC) [Entitic mass] 29.7 pg Normal 25.9-34.0 [facility] Comment on above: Performed By: #### M G, BMP, URIC, ALB, PHOS #### [facility] [address] [place] [address] Dr. Terence Love MCHC (RBC) [Mass/Vol] 32.6 g/dL Normal 29.9-35.2 [facility] Comment on above: Performed By: #### M G, BMP, URIC, ALB, PHOS #### [facility] [address] [place] [address] Dr. Terence Love MCV (RBC) [Entitic vol] 91.0 fL Normal 80.0-94.0 [facility] Comment on above: Performed By: #### M G, BMP, URIC, ALB, PHOS #### [facility] [address] [place] [address] Dr. Terence Love PLT 192 103/ul Normal 150-450 [facility] Comment on above: Performed By: #### M G, BMP, URIC, ALB, PHOS #### [facility] [address] [place] [address] Dr. Terence Love RBC 4.21 106/ul Critically low 4.70-6.10 [facility] Comment on above: Performed By: #### M G, BMP, URIC, ALB, PHOS #### [facility] [address] [place] [address] Dr. Terence Love WBC 6.2 103/ul Normal 4.0-11.0 [facility] Comment on above: Performed By: #### M G, BMP, URIC, ALB, PHOS #### [facility] [address] [place] [address] Dr. Terence Love MAGNESIUMon 08-12-2022 Magnesium [Mass/Vol] 1.8 mg/dL Normal 1.8-2.4 [facility] Comment on above: Performed By: #### B MP #### [facility] [address] [place] [address] Dr. Terence Love PHOSPHORUSon 08-12-2022 Phosphate [Mass/Vol] 4.1 mg/dL Normal 2.6-4.7 [facility] Comment on above: Performed By: #### B MP #### [facility] [address] [place] [address] Dr. Terence Love PROF CHEM 8 (BAS METB)on Anion gap [Moles/Vol] 14.2 mmol/L Normal [facility] Comment on above: Performed By: #### M G, BMP, URIC, ALB, PHOS #### [facility] [address] [place] [address] Dr. Terence Love Calcium [Mass/Vol] 9.4 mg/dL Normal 8.5-10.1 [facility] Comment on above: Performed By: #### M G, BMP, URIC, ALB, PHOS #### [facility] [address] [place] [address] Dr. Terence Love Chloride [Moles/Vol] 102 mmol/L Normal 98-107 [facility] Comment on above: Performed By: #### M G, BMP, URIC, ALB, PHOS #### [facility] [address] [place] [address] Dr. Terence Love CO2 [Moles/Vol] 29.4 mmol/L Normal 21.0-32.0 [facility] Comment on above: Performed By: #### M G, BMP, URIC, ALB, PHOS #### [facility] [address] [place] [address] Dr. Terence Love Creatinine [Mass/Vol] 1.54 mg/dL Critically high 0.70-1.30 [facility] Comment on above: Performed By: #### M G, BMP, URIC, ALB, PHOS #### [facility] [address] [place] [address] Dr. Terence Love EGFR-AF CHILEAN 53 mL/min/1.73m2 Critically low >=60 [facility] Comment on above: Performed By: #### M G, BMP, URIC, ALB, PHOS #### [facility] [address] [place] [address] Dr. Terence Love EGFR-NON AF CHILEAN 44 mL/min/1.73m2 Critically low >=60 [facility] Comment on above: Performed By: #### M G, BMP, URIC, ALB, PHOS #### [facility] [address] [place] [address] Dr. Terence Love Glucose [Mass/Vol] 196 mg/dL Critically high 74-106 T [facility] Comment on above: Performed By: #### M G, BMP, URIC, ALB, PHOS #### [facility] [address] [address] [address] Terence Love Potassium [Moles/Vol] 4.6 mmol/L Normal 3.5-5.1 [facility] Comment on above: Performed By: #### M G, BMP, URIC, ALB, PHOS #### [facility] [address] [address] [address] Terence Love Sodium [Moles/Vol] 141 mmol/L Normal 136-145 [facility] Comment on above: Performed By: #### M G, BMP, URIC, ALB, PHOS #### [facility] [address] [address] [address] Terence Love Urea nitrogen [Mass/Vol] 26.0 mg/dL Critically high 7.0-18.0 [facility] Comment on above: Performed By: #### M G, BMP, URIC, ALB, PHOS #### [facility] [address] [address] [address] Terence Love Urea nitrogen/Creatinine [Mass ratio] 16.9 mg/mg Normal [facility] Comment on above: Performed By: #### M G, BMP, URIC, ALB, PHOS #### [facility] [address] [address] [address] Terence Love URIC ACID SERUMon 08-12-2022 Urate [Mass/Vol] 6.0 mg/dL Normal 3.5-7.2 [facility] Comment on above: Performed By: #### M G, BMP, URIC, ALB, PHOS #### [facility] [address] [address] [address] Terence Love Glucose Glucometer (BldC) [M ass/Vol]Ordered By: Darien Escamilla on 07-06-2022 Glucose [Mass/Vol] 82 mg/dL [facility] Comment on above: Random Glucose Refer ence Range is dependent on time and content of last meal. Glucose of more than 200 mg/dL in a nonstressed, ambulatory subject supports the diagnosis of Diabetes Mellitus. Glucose Poct Glucometerson 0 07-06-2022 Commemt1 Glu2: Cleaned Meter Normal [facility] Comment on above: Result Comment: PERF ORMED BY: [address] [place] [address] PATHOLOGIST GUINEA PIG BREEDER KEZIA MUÑOZ M.D. Performed By: #### G LULS #### Point of Care testing , Glucose [Mass/Vol] 82 mg/dL Normal [facility] Comment on above: Result Comment: [facility] Glucose Reference Range is dependent on time and content of last meal. Glucose of more than 200 mg/dL in a nonstressed, ambulatory subject supports the diagnosis of Diabetes Mellitus. Performed By: #### G LULS #### Point of Care testing , No Panel InformationOrdered By: Darien Escamilla on 07-06-2022 Bedside Glucose Comment Glu2: cleaned meter [facility] Basic Metabolic Panelon 12-2 Anion gap [Moles/Vol] 10.3 mmol/L Normal 6.0-15.[address] [facility] Comment on above: Performed By: #### C BC, BMP #### [facility] [address] [place] [address] [place] Calcium [Mass/Vol] 9.3 mg/dL Normal 8.2-10.2 [facility] Comment on above: Result Comment: PERF ORMED BY: [facility] [address] [place] [address] PATHOLOGIST GUINEA PIG BREEDER KEZIA MUÑOZ M.D. Performed By: #### C BC, BMP #### [facility] [address] [place] [address] [place] Chloride [Moles/Vol] 102 mmol/L Normal 95-[address] [facility] Comment on above: Performed By: #### C BC, BMP #### [facility] [address] [id number] [place] CO2 [Moles/Vol] 28.3 mmol/L Normal 22.0-30.0 [facility] Comment on above: Performed By: #### C BC, BMP #### [facility] [address] [id number] [place] Creatinine [Mass/Vol] 1.62 mg/dL High 0.64-1.27 [facility] Comment on above: Performed By: #### C BC, BMP #### [facility] [address] Estimated GFR ( [place] 50 [facility] Comment on above: Result Comment: GFR estimated reference range: According to KDOQI guidelines, <60 ml/min/1.73m2 is sufficient to diagnose a patient with chronic kidney disease. Performed By: #### C BC, BMP #### [facility] [address] Estimated GFR (Non- Am 41 [facility] Comment on above: Performed By: #### C BC, BMP #### [address] Glucose [Mass/Vol] 202 mg/dL High 70-100 [facility] Comment on above: Result Comment: [place] Glucose Reference Range is dependent on time and content of last meal. Glucose of more than 200 mg/dL in a nonstressed, ambulatory subject supports the diagnosis of Diabetes Mellitus. ADA recommended reference range Performed By: #### C BC, BMP #### [address] Potassium [Moles/Vol] 4.6 mmol/L Normal 3.5-5.1 [facility] Comment on above: Performed By: #### C BC, BMP #### [place] [address] [place] Sodium [Moles/Vol] 136 mmol/L Normal 136-146 [facility] Comment on above: Performed By: #### C BC, BMP #### [facility] [address] Urea nitrogen [Mass/Vol] 25 mg/dL High 9-23 [facility] Comment on above: Performed By: #### C BC, BMP #### [place] [address] [place] Basophils Auto (Bld) [#/Vol] Ordered By: Darien Escamilla on 06-22-2022 Basophils (Bld) [#/Vol] 0.0 10*3/uL 0.0-0.2 [facility] Basophils/100 WBC Auto (Bld) Ordered By: Darien Escamilla on 06-22-2022 Basophils/100 WBC (Bld) 0.5 % . [facility] Complete Blood Count Auto Di ffon 06-22-2022 Basophils (Bld) [#/Vol] 0.0 10*3/uL Normal 0.0-0.2 [facility] Comment on above: Result Comment: PERF ORMED BY: [place] [address] PATHOLOGIST GUINEA PIG BREEDER KEZIA MUÑOZ M.D. Performed By: #### C BC, BMP #### [address] Basophils/100 WBC (Bld) 0.5 % Normal . [facility] Comment on above: Performed By: #### C BC, BMP #### [address] Eosinophils (Bld) [#/Vol] 0.1 10*3/uL Normal 0.0-0.45 [facility] Comment on above: Performed By: #### C BC, BMP #### [address] Eosinophils/100 WBC (Bld) 1.5 % Normal . [facility] Comment on above: Performed By: #### C BC, BMP #### [address] Erythrocyte distribution width (RBC) [Ratio] 14.3 % Normal 12.0-14.8 [facility] Comment on above: Performed By: #### C BC, BMP #### [address] Hematocrit (Bld) [Volume fraction] 38.3 % Low 38.8-50.0 [facility] Comment on above: Performed By: #### C BC, BMP #### [address] Hemoglobin (Bld) [Mass/Vol] 12.6 g/dL Low 13.0-17.0 [facility] Comment on above: Performed By: #### C BC, BMP #### [facility] [address] Lymphocytes (Bld) [#/Vol] 0.9 10*3/uL Low 1.00-4.8 [facility] Comment on above: Performed By: #### C BC, BMP #### [facility] [address] [place] [address] [place] Lymphocytes/100 WBC (Bld) 16.3 % Normal . [facility] Comment on above: Performed By: #### C BC, BMP #### [facility] [address] MCH (RBC) [Entitic mass] 29.8 pg Normal 27.5-35.2 [facility] Comment on above: Performed By: #### C BC, BMP #### [facility] [address] MCV (RBC) [Entitic vol] 90.2 fL Normal 83.5-101 [facility] Comment on above: Performed By: #### C BC, BMP #### [address] Mean Corpuscular HGB Conc 33.0 g/dL Normal 32.5-35.6 [facility] Comment on above: Performed By: #### C BC, BMP #### [facility] [address] [place] [address] [place] Monocytes (Bld) [#/Vol] 0.6 10*3/uL Normal 0.0-0.8 [facility] Comment on above: Performed By: #### C BC, BMP #### [facility] [address] [place] [address] [place] Monocytes/100 WBC (Bld) 9.9 % Normal . [facility] Comment on above: Performed By: #### C BC, BMP #### [facility] [address] [place] [address] [place] Neutrophils (Bld) [#/Vol] 4.2 10*3/uL Normal 1.8-7.7 [facility] Comment on above: Performed By: #### C BC, BMP #### [facility] [address] Neutrophils/100 WBC (Bld) 71.8 % Normal . [facility] Comment on above: Performed By: #### C BC, BMP #### [facility] [address] NRBC% 0.2 /100{WBC} Normal 0-0.5 [facility] Comment on above: Performed By: #### C BC, BMP #### [facility] [address] Platelet mean volume (Bld) [Entitic vol] 9.0 fL Normal 6.6-10.1 [facility] Comment on above: Performed By: #### C BC, BMP #### [facility] [address] [place] [address] [place] Platelets (Bld) [#/Vol] 180 10*3/uL Normal 150-450 [facility] Comment on above: Performed By: #### C BC, BMP #### [facility] [address] RBC (Bld) [#/Vol] 4.25 10*6/uL Normal 3.90-5.60 [facility] Comment on above: Performed By: #### C BC, BMP #### [facility] [address] [place] [address] [place] WBC (Bld) [#/Vol] 5.8 10*3/uL Normal 4.1-10.5 [facility] Comment on above: Performed By: #### C BC, BMP #### [facility] [address] [place] [address] [place] Creatinine and Glomerular fi ltration rate.predicted panel (S/P/Bld)Ordered By: Darien Escamilla on 06-22-2022 Creatinine [Mass/Vol] 1.62 mg/dL 0.64-1.27 [facility] ECG 12 lead ECGon 06-22-2022 ECG 12 lead ECG [facility] [place] [address] Electrocardiograph Report Signed Patient: Jason Bartholomew MR#: [id number] : 1945 Acct:[id number] Age/Sex: 76 / M ADM Date: 06/22/22 Loc: PS Room: Type: [facility] Attending Dr: Darien Escamilla MD Ordering Provider: Darien Escamilla MD Date of Service: 06/22/22 ECG/ECG 12 lead ECG: surgery 07-06-2022 Copies to: Test Reason : Blood Pressure : / mmHG Vent. Rate : 071 BPM Atrial Rate : 071 BPM P-R Int : 166 ms QRS Dur : 144 ms QT Int : 408 ms P-R-T Axes : 032 -20 023 degrees QTc Int : 443 ms Normal sinus rhythm Right bundle branch block Abnormal ECG When compared with ECG of 24-APR-2020 14:53, Sinus rhythm has replaced Electronic atrial pacemaker Confirmed by GABBY CELIS DO ([id number]) on 06/22/2022 1:06:31 PM Referred By: DR ESCAMILLA Electronically Signed By:GABBY CELIS DO Transcribed By: MUS Signed By Gabby Celis DO 06/22 1306 Normal [facility] Eosinophils Auto (Bld) [#/Vo l]Ordered By: Darien Escamilla on 06-22-2022 Eosinophils (Bld) [#/Vol] 0.1 10*3/uL 0.0-0.45 [facility] Eosinophils/100 WBC Auto (Bl d)Ordered By: Darien Escamilla on 06-22-2022 Eosinophils/100 WBC (Bld) 1.5 % . [facility] Erythrocyte distribution wid th Auto (RBC) [Ratio]Ordered By: Darien Escamilla on 06-22-2022 Erythrocyte distribution width (RBC) [Ratio] 14.3 % 12.0-14.8 [facility] Estimated glomerular filtrat ion rate (GFR) non- AmericanOrdered By: Darien Escamilla on 06-22-2022 GFR/1.73 sq M.predicted among non-blacks MDRD (S/P/Bld) [Vol rate/Area] 41 mL/Min [facility] Hematocrit Auto (Bld) [Volum e fraction]Ordered By: Darien Escamilla on 06-22-2022 Hematocrit (Bld) [Volume fraction] 38.3 % 38.8-50.0 [facility] Hemoglobin [Mass/volume] in BloodOrdered By: Darien Escamilla on 06-22-2022 Hemoglobin (Bld) [Mass/Vol] 12.6 g/dL 13.0-17.0 [facility] Leukocytes [#/volume] correc jose for nucleated erythrocytes in Blood by Automated counOrdered By: Darien Escamilla on 06-22-2022 WBC corrected for nucl RBC Auto (Bld) [#/Vol] 5.8 10*3/uL 4.1-10.5 [facility] Lymphocytes Auto (Bld) [#/Vo l]Ordered By: Darien Escamilla on 06-22-2022 Lymphocytes (Bld) [#/Vol] 0.9 10*3/uL 1.00-4.8 [facility] Lymphocytes/100 WBC Auto (Bl d)Ordered By: Darien Escamilla on 06-22-2022 Lymphocytes/100 WBC (Bld) 16.3 % . [facility] MCH Auto (RBC) [Entitic mass ]Ordered By: Darien Escamilla on 06-22-2022 MCH (RBC) [Entitic mass] 29.8 pg 27.5-35.2 [facility] MCHC Auto (RBC) [Mass/Vol]Or dered By: Darien Escamilla on 06-22-2022 MCHC (RBC) [Mass/Vol] 33.0 g/dL 32.5-35.6 [facility] MCV Auto (RBC) [Entitic vol] Ordered By: Darien Escamilla on 06-22-2022 MCV (RBC) [Entitic vol] 90.2 fL 83.5-101 [facility] Monocytes Auto (Bld) [#/Vol] Ordered By: Darien Escamilla on 06-22-2022 Monocytes (Bld) [#/Vol] 0.6 10*3/uL 0.0-0.8 [facility] Monocytes/100 WBC Auto (Bld) Ordered By: Darien Escamilla on 06-22-2022 Monocytes/100 WBC (Bld) 9.9 % . [facility] Neutrophils Auto (Bld) [#/Vo l]Ordered By: Darien Escamilla on 06-22-2022 Neutrophils (Bld) [#/Vol] 4.2 10*3/uL 1.8-7.7 [facility] Neutrophils/100 WBC Auto (Bl d)Ordered By: Darien Escamilla on 06-22-2022 Neutrophils/100 WBC (Bld) 71.8 % . [facility] No Panel InformationOrdered By: Darien Escamilla on 06-22-2022 Estimated GFR () 50 mL/Min [facility] Comment on above: GFR estimated refere nce range: According to KDOQI guidelines, <60 ml/min/1.73m2 is sufficient to diagnose a patient with chronic kidney disease. Pharmacy Creatinine Clearance (Chem N/A [facility] Nucleated erythrocytes [Pres ence] in Blood by Automated countOrdered By: Darien Escamilla on 06-22-2022 Nucleated RBC Auto Ql (Bld) 0.2 /100{WBC} 0-0.5 [facility] Platelet mean volume Auto (B ld) [Entitic vol]Ordered By: Darien Escamilla on 06-22-2022 Platelet mean volume (Bld) [Entitic vol] 9.0 fL 6.6-10.1 [facility] Platelets Auto (Bld) [#/Vol] Ordered By: Darien Escamilla on 06-22-2022 Platelets (Bld) [#/Vol] 180 10*3/uL 150-450 [facility] RBC Auto (Bld) [#/Vol]Ordere d By: Darien Escamilla on 06-22-2022 RBC (Bld) [#/Vol] 4.25 10*6/uL 3.90-5.60 [facility] Serum or plasma anion gap de terminationOrdered By: Darien Escamilla on 06-22-2022 Anion gap [Moles/Vol] 10.3 mmol/L 6.0-15.[address] [facility] Serum or plasma calcium abhishek urement (mass/volume)Ordered By: Darien Escamilla on 06-22-2022 Calcium [Mass/Vol] 9.3 mg/dL 8.2-10.2 [facility] Serum or plasma chloride abraham surement (moles/volume)Ordered By: Darien Escamilla on 06-22-2022 Chloride [Moles/Vol] 102 mmol/L 95-[address] [facility] Serum or plasma glucose abhishek urement (mass/volume)Ordered By: Darien Escamilla on 06-22-2022 Glucose [Mass/Vol] 202 mg/dL 70-100 [facility] Comment on above: ADA recommended refe rence rangeRandom Glucose Reference Range is dependent on time and content of last meal. Glucose of more than 200 mg/dL in a nonstressed, ambulatory subject supports the diagnosis of Diabetes Mellitus. Serum or plasma potassium me asurement (moles/volume)Ordered By: Darein Escamilla on 06-22-2022 Potassium [Moles/Vol] 4.6 mmol/L 3.5-5.1 [facility] Serum or plasma sodium measu rement (moles/volume)Ordered By: Darien Escamilla on 06-22-2022 Sodium [Moles/Vol] 136 mmol/L 136-146 [facility] Serum or plasma total carbon dioxide measurement (moles/volume)Ordered By: Darien Escamilla on 06-22-2022 CO2 [Moles/Vol] 28.3 mmol/L 22.0-30.0 [facility] Serum or plasma urea nitroge n measurement (mass/volume)Ordered By: Darien Escamilla on 06-22-2022 Urea nitrogen [Mass/Vol] 25 mg/dL 9-23 [facility] WBC Auto (Bld) [#/Vol]Ordere d By: Darien Escamilla on 06-22-2022 WBC (Bld) [#/Vol] 5.8 10*3/uL 4.1-10.5 [facility] Covid-19 PCR (CVDTBH)on 04-02 SARS-CoV-2 (COVID-19) RNA KOLTON+probe Ql (Unsp spec) Not detected Normal NOT DETECTED [facility] Comment on above: Result Comment: This test is not yet approved or cleared by the [place] FDA. When there are no FDA-approved or cleared tests available, and other criteria are met, FDA can make tests available under an emergency access mechanism called an Emergency Use Authorization (EUA). The EUA for this test is supported by the Mail Handler of Health and Human Service's (HHS's) declaration that circumstances exist to justify the emergency use of in vitro diagnostics for the detection and/or diagnosis of the virus that causes COVID-19. This EUA will remain in effect (meaning this test can be used) for the duration of the COVID-19 declaration justifying emergency of IVDs, unless it is terminated or revoked by FDA (after which the test may no longer be used). When diagnostic testing is negative, the possibility of a false negative should be considered in the context of a patient's recent exposures and the presence of clinical signs and symptoms consistent with SARS-CoV-2. Performed By: #### C [facility] #### [facility] [address] [place] [address] Dr. Terence Love CTA CHEST WO W CONon 022 CTA CHEST WO W CON EXAMINATION: CTA CHEST WO W CON HISTORY: Paroxysmal atrial fibrillation COMPARISON: No relevant comparison available. TECHNIQUE: Axial, Coronal, and Sagittal images were created without and with IV contrast. Dose reduction techniques were achieved by using automated exposure control and/or adjustment of mA and/or kV according to patient size and/or use of iterative reconstruction technique. FINDINGS: LUNGS: Mild dependent opacities, atelectasis is favored. Scattered subcentimeter pulmonary nodules the largest in the right upper lobe measures 4.5 mm axial image 50. PLEURA: No mass, effusion, or pneumothorax. VASCULATURE: No abnormality. SIL: No mass or adenopathy. MEDIASTINUM: No mass or adenopathy. CARDIAC: No enlargement or pericardial effusion. Pacemaker wires. Mild coronary atherosclerosis AORTA: Suspected aortic valve replacement. No aortic aneurysm or dissection. CHEST WALL: Left pacemaker. Hypodense right thyroid nodule BONES: No bone lesion or fracture. LIMITED ABDOMEN: No suspicious findings. Limited images of the upper abdomen. OTHER: Negative. IMPRESSION: Scattered pulmonary nodules measuring up to 4.5 mm, nonspecific Electronically authenticated by: RAJENDRA FRANCO Date: 2022-04-04 08:00 Normal [facility] CBC AUTO DIFFon 04-02-2022 BASO # 0.0 103/ul Normal 0.0-0.1 [facility] Comment on above: Performed By: #### M G, BMP, URIC, ALB, PHOS #### [facility] [address] [place] [address] Dr. Terence Love Basophils/100 WBC (Bld) 0.5 % Normal 0.2-2.0 [facility] Comment on above: Performed By: #### M G, BMP, URIC, ALB, PHOS #### [facility] [address] [place] [address] Dr. Terence Love EO # 0.1 103/ul Normal 0.0-0.7 [facility] Comment on above: Performed By: #### M G, BMP, URIC, ALB, PHOS #### [facility] [address] [place] [address] Dr. Terence Love Eosinophils/100 WBC (Bld) 1.9 % Normal 0.9-7.0 [facility] Comment on above: Performed By: #### M G, BMP, URIC, ALB, PHOS #### [facility] [address] [place] [address] Dr. Terence Love Erythrocyte distribution width (RBC) [Ratio] 13.8 % Normal 11.0-15.0 [facility] Comment on above: Performed By: #### M G, BMP, URIC, ALB, PHOS #### [facility] [address] [place] [address] Dr. Terence Love Hematocrit (Bld) [Volume fraction] 40.9 % Critically low 42.0-54.0 [facility] Comment on above: Performed By: #### M G, BMP, URIC, ALB, PHOS #### [facility] [address] [place] [address] Dr. Terence Love Hemoglobin (Bld) [Mass/Vol] 13.6 g/dL Critically low 14.0-18.0 [facility] Comment on above: Performed By: #### M G, BMP, URIC, ALB, PHOS #### [facility] [address] [place] [address] Dr. Terence Love IG # 0.02 10e3/ul Normal 0.00-0.03 [facility] Comment on above: Performed By: #### M G, BMP, URIC, ALB, PHOS #### [facility] [address] [place] [address] Dr. Terence Love IG % 0.3 % Normal 0.0-0.5 [facility] Comment on above: Performed By: #### M G, BMP, URIC, ALB, PHOS #### [facility] [address] [place] [address] Dr. Terence Love LYMPH # 1.1 103/ul Critically low 1.2-3.8 [facility] Comment on above: Performed By: #### M G, BMP, URIC, ALB, PHOS #### [facility] [address] [place] [address] Dr. Terence Love Lymphocytes/100 WBC (Bld) 16.9 % Critically low 20.5-60.0 [facility] Comment on above: Performed By: #### M G, BMP, URIC, ALB, PHOS #### [facility] [address] [place] [address] Dr. Terence Love MANUAL DIFF REQ NO Normal [facility] Comment on above: Performed By: #### M G, BMP, URIC, ALB, PHOS #### [facility] [address] [place] [address] Dr. Terence Love MCH (RBC) [Entitic mass] 30.3 pg Normal 25.9-34.0 [facility] Comment on above: Performed By: #### M G, BMP, URIC, ALB, PHOS #### [facility] [address] [place] [address] Dr. Terence Love MCHC (RBC) [Mass/Vol] 33.3 g/dL Normal 29.9-35.2 [facility] Comment on above: Performed By: #### M G, BMP, URIC, ALB, PHOS #### [facility] [address] [place] [address] Dr. Terence Love MCV (RBC) [Entitic vol] 91.1 fL Normal 80.0-94.0 [facility] Comment on above: Performed By: #### M G, BMP, URIC, ALB, PHOS #### [facility] [address] [place] [address] Dr. Terence Love MONO # 0.6 103/ul Normal 0.3-0.8 [facility] Comment on above: Performed By: #### M G, BMP, URIC, ALB, PHOS #### [facility] [address] [place] [address] Dr. Terence Love Monocytes/100 WBC (Bld) 10.1 % Normal 1.7-12.0 [facility] Comment on above: Performed By: #### M G, BMP, URIC, ALB, PHOS #### [facility] [address] [place] [address] Dr. Terence Love NEUT # 4.4 103/ul Normal 1.4-6.5 [facility] Comment on above: Performed By: #### M G, BMP, URIC, ALB, PHOS #### [facility] [address] [place] [address] Dr. Terence Love Neutrophils/100 WBC (Bld) 70.3 % Normal 43.0-75.0 [facility] Comment on above: Performed By: #### M G, BMP, URIC, ALB, PHOS #### [facility] [address] [place] [address] Dr. Terence Love Platelet mean volume (Bld) [Entitic vol] 10.6 fL Normal 9.5-13.5 [facility] Comment on above: Performed By: #### M G, BMP, URIC, ALB, PHOS #### [facility] [address] [place] [address] Dr. Terence Love PLT 179 103/ul Normal 150-450 [facility] Comment on above: Performed By: #### M G, BMP, URIC, ALB, PHOS #### [facility] [address] [place] [address] Dr. Terence Love RBC 4.49 106/ul Critically low 4.70-6.10 [facility] Comment on above: Performed By: #### M G, BMP, URIC, ALB, PHOS #### [facility] [address] [address] [address] Terence Love WBC 6.2 103/ul Normal 4.0-11.0 [facility] Comment on above: Performed By: #### M G, BMP, URIC, ALB, PHOS #### [facility] [address] [place] [address] Dr. Terence Love PROF CHEM 8 (BAS METB)on Anion gap [Moles/Vol] 8.8 mmol/L Normal [facility] Comment on above: Performed By: #### B MP #### [facility] [address] [place] [address] Dr. Terence Love Calcium [Mass/Vol] 9.1 mg/dL Normal 8.5-10.1 [facility] Comment on above: Performed By: #### B MP #### [facility] [address] [place] [address] Dr. Terence Love Chloride [Moles/Vol] 102 mmol/L Normal 98-107 [facility] Comment on above: Performed By: #### B MP #### [facility] [address] [place] [address] Dr. Terence Love CO2 [Moles/Vol] 31.6 mmol/L Normal 21.0-32.0 [facility] Comment on above: Performed By: #### B MP #### [facility] [address] [place] [address] Dr. Terence Love Creatinine [Mass/Vol] 1.48 mg/dL Critically high 0.70-1.30 [facility] Comment on above: Performed By: #### B MP #### [facility] [address] [place] [address] Dr. Terence Love EGFR-AF CHILEAN 56 mL/min/1.73m2 Critically low >=60 [facility] Comment on above: Performed By: #### B MP #### [facility] [address] [place] [address] Dr. Terence Love EGFR-NON AF CHILEAN 46 mL/min/1.73m2 Critically low >=60 [facility] Comment on above: Performed By: #### B MP #### [facility] [address] [address] [address] Terence Love Glucose [Mass/Vol] 125 mg/dL Critically high 74-106 [facility] Comment on above: Performed By: #### B MP #### [facility] [address] [address] [address] Terence Love Potassium [Moles/Vol] 4.4 mmol/L Normal 3.5-5.1 [facility] Comment on above: Performed By: #### B MP #### [facility] [address] [address] [address] Terence Love Sodium [Moles/Vol] 138 mmol/L Normal 136-145 [facility] Comment on above: Performed By: #### B MP #### [facility] [address] [address] [address] Terence Love Urea nitrogen [Mass/Vol] 24.0 mg/dL Critically high 7.0-18.0 [facility] Comment on above: Performed By: #### B MP #### [facility] [address] [address] [address] Terence Love Urea nitrogen/Creatinine [Mass ratio] 16.2 mg/mg Normal [facility] Comment on above: Performed By: #### B MP #### [facility] [address] [address] [address] Terence Love PROF CHEM 8 (BAS METB)on Anion gap [Moles/Vol] 13.4 mmol/L Normal [facility] Comment on above: Performed By: #### M G, BMP, URIC, ALB, PHOS #### [facility] [address] [place] [address] Dr. Terence Love Calcium [Mass/Vol] 9.1 mg/dL Normal 8.5-10.1 [facility] Comment on above: Performed By: #### M G, BMP, URIC, ALB, PHOS #### [facility] [address] [place] [address] [address] Terence Love Chloride [Moles/Vol] 103 mmol/L Normal 98-107 [facility] Comment on above: Performed By: #### M G, BMP, URIC, ALB, PHOS #### [facility] [address] [place] [address] [address] Terence Love CO2 [Moles/Vol] 27.9 mmol/L Normal 21.0-32.0 [facility] Comment on above: Performed By: #### M G, BMP, URIC, ALB, PHOS #### [facility] [address] [place] [address] [address] Terence Love Creatinine [Mass/Vol] 1.66 mg/dL Critically high 0.70-1.30 [facility] Comment on above: Performed By: #### M G, BMP, URIC, ALB, PHOS #### [facility] [address] [place] [address] Dr. Terence Love EGFR-AF CHILEAN 49 mL/min/1.73m2 Critically low >=60 [facility] Comment on above: Performed By: #### M G, BMP, URIC, ALB, PHOS #### [facility] [address] [place] [address] Dr. Terence Love EGFR-NON AF CHILEAN 40 mL/min/1.73m2 Critically low >=60 [facility] Comment on above: Performed By: #### M G, BMP, URIC, ALB, PHOS #### [facility] [address] [place] [address] Dr. Terence Love Glucose [Mass/Vol] 211 mg/dL Critically high 74-106 [facility] Comment on above: Performed By: #### M G, BMP, URIC, ALB, PHOS #### [facility] [address] [place] [address] [address] Terence Love Potassium [Moles/Vol] 4.3 mmol/L Normal 3.5-5.1 [facility] Comment on above: Performed By: #### M G, BMP, URIC, ALB, PHOS #### [facility] [address] [address] [address] Terence Love Sodium [Moles/Vol] 140 mmol/L Normal 136-145 [facility] Comment on above: Performed By: #### M G, BMP, URIC, ALB, PHOS #### [facility] [address] [place] [address] [address] Terence Love Urea nitrogen [Mass/Vol] 31.0 mg/dL Critically high 7.0-18.0 [facility] Comment on above: Performed By: #### M G, BMP, URIC, ALB, PHOS #### [facility] [address] [place] [address] [address] Terence Love Urea nitrogen/Creatinine [Mass ratio] 18.7 mg/mg Normal [facility] Comment on above: Performed By: #### M G, BMP, URIC, ALB, PHOS #### [facility] [address] [place] [address] [address] Terence Love ECHOCARDIO M/2D COMPLETEon 0 02-02-2022 ECHOCARDIO M/2D COMPLETE Patient: JASON BARTHOLOMEW Exam Date: 02/02/2022 : 1945 Gender:M Ordering : DR ISH STOVER M.D. Admission #: [id number] Family : DR IDRIS JOSE . Order #: [id number] CLICK HERE TO VIEW EXAM ECHOCARDIOGRAM REPORT PROCEDURE: CARDIO PULMONARY ECHOCARDIO M/2D COMP INDICATIONS: Minimally invasive aortic valve replacement; 21 mm Zhang Inspiris Bovine COMPARISON: None. DESCRIPTION: COMPLETE ECHOCARDIOGRAM Real-time transthoracic echocardiography with 2D, M-mode, spectral and color flow Doppler performed. QUALITY: Technical quality was adequate. 69 191# 118/64 HR 83 LEFT VENTRICLE: Normal chamber size. Normal left ventricular wall thickness. Global left ventricular systolic function is normal. Visual estimation of left ventricular ejection fraction is 65%. No regional wall motion abnormalities. LV EF: DIASTOLIC: Grade II diastolic dysfunction. ATRIAL SEPTUM: LEFT ATRIUM: Left atrium is at upper normal limits in size. RIGHT ATRIUM: Normal chamber size. Pacemaker wire is seen. RIGHT VENTRICLE: Normal chamber size. Normal right ventricular systolic function. Pacemaker wire is seen. TRICUSPID VALVE: Normal mobility and thickness. No stenosis with mild regurgitation. No evidence of pulmonary hypertension. RVSP 29 mmHg MITRAL VALVE: Normal mobility and thickness. No evidence of mitral valve stenosis. Mild mitral annular calcification. Trivial mitral regurgitation. AORTIC VALVE: Bioprosthetic valve appears well seated in the aortic position with increased Doppler flows (peak velocity 3.04 m/s) with a slight increase from previous 2.6 m/s. Mean gradient 19 mmHg. No aortic regurgitation. AORTIC ROOT: Normal diameter and appearance. PULMONIC VALVE: Not well visualized. No stenosis. Trivial regurgitation. PERICARDIUM: No evidence of pericardial effusion. IVC: Collapses with inspirations. IVC is normal in size. PLEURA: CONCLUSION: 1. Left ventricular systolic function is normal. LVEF is 65%. 2. Normal right ventricular systolic function. 3. Bioprosthetic aortic valve is seen with mildly increased Doppler flows. 4. Mild tricuspid regurgitation. 5. Normal right-sided pressures. 6. No pericardial effusion. Adult Echocardiography Procedure Report Left Ventricle Left Atrium Mitral Valve Right Ventricle Aorta Aortic Valve Peak Velocity (Antegrade Flow): 3.04 m/s, 3.03 m/s, 3.04 m/s AoV Area (Peak Jerardo): 0.89 cm2, 0.89 cm2, 0.88 cm2, 0.88 cm2, 0.88 cm2, 0.88 cm2, 0.89 cm2, 0.89 cm2 AoV Area (VTI): 0.93 cm2, 0.93 cm2 Peak Velocity(Antegrade Flow): 3.04 m/s, 3.04 m/s Peak Gradient(Antegrade Flow): 37.01 mm[Hg], 37.01 mm[Hg] Mean Velocity(Antegrade Flow): 2.01 m/s Mean Gradient(Antegrade Flow): 18.89 mm[Hg] Velocity Time Integral: 71.50 cm Tricuspid Valve Peak Velocity (Regurgitant Flow): 2.04 m/s, 2.56 m/s Peak Velocity: 0.53 m/s Pulmonic Valve PV Max Jerardo (0.6 - 0.9 m per sec): 1.39 m/s PV Max Gradient: 7.70 mm[Hg] Right Atrium Dictated by: Dedrick Boyd M.D. on 02/02/2022 at 16:50 Approved by: Dedrick Boyd M.D. on 02/02/2022 at 16:[address] [facility] MR cervical spine wo conon 0 01-28-2022 MR cervical spine wo con [facility] [place] [address] [place] [address] MRI Report Signed Patient: Jason Bartholomew MR#: [id number] : 1945 Acct:[id number] Age/Sex: 76 / M ADM Date: 01/28/22 Loc: MR Room: Type: [facility] Attending Dr: Idris Jose MD Copies to: Idris Jose MD Ordering Provider: Idris Jose MD Date of Service: 01/28/22 MR/MR cervical spine wo con: M48.02 MR cervical spine wo con 01/28/2022 8:32 AM SIGNS AND SYMPTOMS: Bilateral hand numbness, history of cervical fracture radiographs from 02/11/2021 and MRI from 05/06/2020 PROTOCOL: Multiplanar multisequence MR images of the cervical spine were obtained without contrast COMPARISON: October 2020 FINDINGS: The bones of the cervical spine are in anatomic alignment. There is preservation of vertebral body. There is anterior fusion at C3-C4. There is moderate disc height loss at C5-C6 and C6-C7. The marrow signal is within normal limits. T2 hyperintense signal accompanied by atrophy within the cord at the C3-C4 disc level. This is consistent with chronic myelomalacia. No epidural or paraspinous fluid collection is appreciated. The visualized paraspinous soft tissues are within normal limits. The prevertebral soft tissues are within normal limits. At C2-C3: Facet and uncovertebral joint degenerative changes are present contributing to mild to moderate narrowing of the neural foramen bilaterally without spinal canal narrowing. This is unchanged. At C3-C4: Facet and uncovertebral degenerative changes are present contributing to severe left and moderate right neural foraminal narrowing with mild spinal canal. Spinal canal narrowing has improved in the interval. At C4-C5: Facet and uncovertebral joint degenerative changes are present contributing to severe bilateral neural foraminal narrowing with mild spinal canal narrowing. This is unchanged. At C5-C6: There is a broad-based disc bulge with right greater than left facet and uncovertebral joint degenerative change contributing to moderate to severe right and mild left neural foraminal narrowing. There is mild spinal canal narrowing. Neural foraminal narrowing slightly greater on the right when compared to the prior exam. At C6-C7: There is a broad-based disc bulge with facet and uncovertebral degenerative change contributing to mild right neural foraminal narrowing with mild spinal canal narrowing. This is slightly worse when compared to the prior exam. At C7-T1: There is uncovertebral joint spurring right greater than left. There is mild right neural foraminal narrowing. This is unchanged. MR/MR cervical spine wo con IMPRESSION: At C3-C4: Facet and uncovertebral degenerative changes are present contributing to severe left and moderate right neural foraminal narrowing with mild spinal canal. Spinal canal narrowing has improved in the interval. Chronic myelomalacia has developed in this location within the spinal cord. At C5-C6: There is a broad-based disc bulge with right greater than left facet and uncovertebral joint degenerative change contributing to moderate to severe right and mild left neural foraminal narrowing. There is mild spinal canal narrowing. Neural foraminal narrowing slightly greater on the right when compared to the prior exam. At C6-C7: There is a broad-based disc bulge with facet and uncovertebral degenerative change contributing to mild right neural foraminal narrowing with mild spinal canal narrowing. This is sl ightly worse when compared to the prior exam. Impression dictated by: Elie Gerardo M.D.01/28/2022 12:25 PM Dictation Location: [place] [address] Transcribed By: [facility] 01/28/22 1225 Dictated By: Elie Gerardo II, MD 01/28/22 1211 Signed By: 01/28/22 1225 [facility] PTH INTACTon 01-08-2022 PTH, Intact 27 pg/mL Normal 15-65 [facility] Comment on above: Performed By: #### M G, BMP, URIC, ALB, PHOS #### [facility] [address] [place] [address] Dr. Terence Love ALBUMINon 01-07-2022 Albumin [Mass/Vol] 3.9 g/dL Normal 3.4-5.0 [facility] Comment on above: Performed By: #### M G, BMP, URIC, ALB, PHOS #### [facility] [address] [address] [address] Terence Love CBC AUTO DIFFon 01-07-2022 BASO # 0.0 103/ul Normal 0.0-0.1 [facility] Comment on above: Performed By: #### C BC #### [facility] [address] [place] [address] [address] Terence Love Basophils/100 WBC (Bld) 0.3 % Normal 0.2-2.0 [facility] Comment on above: Performed By: #### C BC #### [facility] [address] [place] [address] Dr. Terence Love EO # 0.1 103/ul Normal 0.0-0.7 [facility] Comment on above: Performed By: #### C BC #### [facility] [address] [place] [address] Dr. Terence Love Eosinophils/100 WBC (Bld) 2.0 % Normal 0.9-7.0 [facility] Comment on above: Performed By: #### C BC #### [facility] [address] [place] [address] Dr. Terence Love Erythrocyte distribution width (RBC) [Ratio] 13.9 % Normal 11.0-15.0 [facility] Comment on above: Performed By: #### C BC #### [facility] [address] [place] [address] Dr. Terence Love Hematocrit (Bld) [Volume fraction] 45.2 % Normal 42.0-54.0 [facility] Comment on above: Performed By: #### C BC #### [facility] [address] [place] [address] Dr. Terence Love Hemoglobin (Bld) [Mass/Vol] 14.4 g/dL Normal 14.0-18.0 [facility] Comment on above: Performed By: #### C BC #### [facility] [address] [place] [address] Dr. Terence Love IG # 0.03 10e3/ul Normal 0.00-0.03 [facility] Comment on above: Performed By: #### C BC #### [facility] [address] [place] [address] Dr. Terence Love IG % 0.5 % Normal 0.0-0.5 [facility] Comment on above: Performed By: #### C BC #### [facility] [address] [place] [address] [address] Terence Love LYMPH # 1.0 103/ul Critically low 1.2-3.8 [facility] Comment on above: Performed By: #### C BC #### [facility] [address] [place] [address] [address] Terence Love Lymphocytes/100 WBC (Bld) 16.3 % Critically low 20.5-60.0 [facility] Comment on above: Performed By: #### C BC #### [facility] [address] [place] [address] [address] Terence Love MANUAL DIFF REQ NO Normal [facility] Comment on above: Performed By: #### C BC #### [facility] [address] [place] [address] Dr. Terence Love MCH (RBC) [Entitic mass] 29.3 pg Normal 25.9-34.0 [facility] Comment on above: Performed By: #### C BC #### [facility] [address] [place] [address] Dr. Terence Love MCHC (RBC) [Mass/Vol] 31.9 g/dL Normal 29.9-35.2 [facility] Comment on above: Performed By: #### C BC #### [facility] [address] [place] [address] Dr. Terence Love MCV (RBC) [Entitic vol] 92.1 fL Normal 80.0-94.0 [facility] Comment on above: Performed By: #### C BC #### [facility] [address] [place] [address] [address] Terence Love MONO # 0.6 103/ul Normal 0.3-0.8 [facility] Comment on above: Performed By: #### C BC #### [facility] [address] [place] [address] Dr. Terence Love Monocytes/100 WBC (Bld) 9.3 % Normal 1.7-12.0 [facility] Comment on above: Performed By: #### C BC #### [facility] [address] [place] [address] Dr. Terence Love NEUT # 4.4 103/ul Normal 1.4-6.5 [facility] Comment on above: Performed By: #### C BC #### [facility] [address] [place] [address] Dr. Terence Love Neutrophils/100 WBC (Bld) 71.6 % Normal 43.0-75.0 [facility] Comment on above: Performed By: #### C BC #### [facility] [address] [place] [address] Dr. Terence Love Platelet mean volume (Bld) [Entitic vol] 10.8 fL Normal 9.5-13.5 [facility] Comment on above: Performed By: #### C BC #### [facility] [address] [place] [address] Dr. Terence Love PLT 203 103/ul Normal 150-450 [facility] Comment on above: Performed By: #### C BC #### [facility] [address] [place] [address] Dr. Terence Love RBC 4.91 106/ul Normal 4.70-6.10 [facility] Comment on above: Performed By: #### C BC #### [facility] [address] [place] [address] Dr. Terence Love WBC 6.1 103/ul Normal 4.0-11.0 [facility] Comment on above: Performed By: #### C BC #### [facility] [address] [place] [address] Dr. Terence Love MAGNESIUMon 01-07-2022 Magnesium [Mass/Vol] 1.7 mg/dL Critically low 1.8-2.4 [facility] Comment on above: Performed By: #### M G, BMP, URIC, ALB, PHOS #### [facility] [address] [place] [address] Dr. Terence Love MICROALB CREAT RATIO RANDOMo n 01-07-2022 mALB 2.3 mg/L Normal <=30.0 [facility] Comment on above: Performed By: #### M CRR #### [facility] [address] [place] [address] [address] Terence DOMINGUEZ CR RATIO 18.9 mg/g Normal 0.0-29.9 [facility] Comment on above: Performed By: #### M CRR #### [facility] [address] [place] [address] [address] Terence DOMINGUEZ CR RATIO RANGE SEE BELOW Normal [facility] Comment on above: Result Comment: NO M ICROALBUMINURIA 0-29 MG/G CLINICAL MICROALBUMINURIA 30-300 MG/G MACROALBUMINURIA >300 MG/G Performed By: #### M CRR #### [facility] [address] [place] [address] Dr. Terence Love URINE CREAT 121.78 mg/dL Normal 20.00-300.00 [facility] Comment on above: Performed By: #### M CRR #### [facility] [address] [place] [address] Dr. Terence Love PHOSPHORUSon 01-07-2022 Phosphate [Mass/Vol] 4.2 mg/dL Normal 2.6-4.7 [facility] Comment on above: Performed By: #### M G, BMP, URIC, ALB, PHOS #### [facility] [address] [place] [address] [address] Terence Love PROF CHEM 8 (BAS METB)on Anion gap [Moles/Vol] 11.0 mmol/L Normal [facility] Comment on above: Performed By: #### M G, BMP, URIC, ALB, PHOS #### [facility] [address] [place] [address] [address] Terence Love Calcium [Mass/Vol] 9.2 mg/dL Normal 8.5-10.1 [facility] Comment on above: Performed By: #### M G, BMP, URIC, ALB, PHOS #### [facility] [address] [place] [place] [address] [address] Terence Love Chloride [Moles/Vol] 102 mmol/L Normal 98-107 [facility] Comment on above: Performed By: #### M G, BMP, URIC, ALB, PHOS #### [facility] [address] [place] [address] [address] Terence Love CO2 [Moles/Vol] 29.2 mmol/L Normal 21.0-32.0 [facility] Comment on above: Performed By: #### M G, BMP, URIC, ALB, PHOS #### [facility] [address] [place] [address] [address] Terence Love Creatinine [Mass/Vol] 1.58 mg/dL Critically high 0.70-1.30 [facility] Comment on above: Performed By: #### M G, BMP, URIC, ALB, PHOS #### [facility] [address] [place] [address] Dr. Terence Love EGFR-AF CHILEAN 52 mL/min/1.73m2 Critically low >=60 [facility] Comment on above: Performed By: #### M G, BMP, URIC, ALB, PHOS #### [facility] [address] [place] [address] Dr. Terence Love EGFR-NON AF CHILEAN 43 mL/min/1.73m2 Critically low >=60 [facility] Comment on above: Performed By: #### M G, BMP, URIC, ALB, PHOS #### [facility] [address] [place] [address] Dr. Terence Love Glucose [Mass/Vol] 220 mg/dL Critically high 74-106 [facility] Comment on above: Performed By: #### M G, BMP, URIC, ALB, PHOS #### [facility] [address] [place] [address] [address] Terence Love Potassium [Moles/Vol] 4.9 mmol/L Normal 3.5-5.1 [facility] Comment on above: Performed By: #### M G, BMP, URIC, ALB, PHOS #### [facility] [address] [place] [address] [address] Terence Love Sodium [Moles/Vol] 138 mmol/L Normal 136-145 [facility] Comment on above: Performed By: #### M G, BMP, URIC, ALB, PHOS #### [facility] [address] [place] [address] Dr. Terence Love Urea nitrogen [Mass/Vol] 22.0 mg/dL Critically high 7.0-18.0 [facility] Comment on above: Performed By: #### M G, BMP, URIC, ALB, PHOS #### [facility] [address] [place] [address] Dr. Terence Love Urea nitrogen/Creatinine [Mass ratio] 13.9 mg/mg Normal [facility] Comment on above: Performed By: #### M G, BMP, URIC, ALB, PHOS #### [facility] [address] [place] [address] Dr. Terence Love UA RANDOMon 01-07-2022 Bilirubin Ql (U) Negative Normal NEGATIVE [facility] Comment on above: Performed By: #### M G, BMP, URIC, ALB, PHOS #### [facility] [address] [place] [address] Dr. Terence Love Clarity (U) CLEAR Normal CLEAR [facility] Comment on above: Performed By: #### M G, BMP, URIC, ALB, PHOS #### [facility] [address] [place] [address] Dr. Terence Love Color (U) YELLOW Normal YELLOW [facility] Comment on above: Performed By: #### M G, BMP, URIC, ALB, PHOS #### [facility] [address] [place] [address] Dr. Terence Love Glucose Ql (U) 250 mg/dl Abnormal NEGATIVE [facility] Comment on above: Performed By: #### M G, BMP, URIC, ALB, PHOS #### [facility] [address] [place] [address] Dr. Terence Love Hemoglobin Ql (U) Negative Normal NEGATIVE [facility] Comment on above: Performed By: #### M G, BMP, URIC, ALB, PHOS #### [facility] [address] [place] [address] Dr. Terence Love Ketones Ql (U) Negative Normal NEGATIVE [facility] Comment on above: Performed By: #### M G, BMP, URIC, ALB, PHOS #### [facility] [address] [place] [address] Dr. Terence Love LEUKOCYTES Negative Normal NEGATIVE [facility] Comment on above: Performed By: #### M G, BMP, URIC, ALB, PHOS #### [facility] [address] [place] [address] Dr. Terence Love Nitrite Ql (U) Negative Normal NEGATIVE [facility] Comment on above: Performed By: #### M G, BMP, URIC, ALB, PHOS #### [facility] [address] [place] [address] Dr. Terence Love pH (U) 5.5 [pH] Normal 5-9 [facility] Comment on above: Performed By: #### M G, BMP, URIC, ALB, PHOS #### [facility] [address] [place] [address] Dr. Terence Love SPEC GRAVITY 1.020 Normal 1.005-<=1.[address] [facility] Comment on above: Performed By: #### M G, BMP, URIC, ALB, PHOS #### [facility] [address] [place] [address] Dr. Terence Love UA PROTEIN Negative Normal NEGATIVE/ TRACE [facility] Comment on above: Performed By: #### M G, BMP, URIC, ALB, PHOS #### [facility] [address] [place] [address] Dr. Terence Love Urobilinogen Qn (U) 0.2 {Cherise'U}/dL Normal 0.2 - 1. 0 [facility] Comment on above: Performed By: #### M G, BMP, URIC, ALB, PHOS #### [facility] [address] [place] [address] Dr. Terence Love URIC ACID SERUMon 01-07-2022 Urate [Mass/Vol] 5.7 mg/dL Normal 3.5-7.2 [facility] Comment on above: Performed By: #### M G, BMP, URIC, ALB, PHOS #### [facility] [address] [place] [address] Dr. Terence Love VITAMIN D 25 OHon 01-07-2022 VIT D 25-OH 32.1 ng/mL Normal [facility] Comment on above: Performed By: #### V ITAD #### [facility] [address] [place] [address] Dr. Terence Love VIT D RANGES SEE BELOW Normal [facility] Comment on above: Result Comment: <20 ng/mL Vit D deficient 20 - <30 ng/mL Vit D insufficient 30 - 100 ng/mL Vit D sufficient >100 ng/mL Potential Toxicity Performed By: #### V ITAD #### [facility] [address] [place] [address] Dr. Terence Love CBC W MANUAL DIFFon 12-17-19 22 ATYPICAL LYMPH # 0.29 103/ul Normal [facility] Comment on above: Performed By: #### M G, BMP, URIC, ALB, PHOS #### [facility] [address] [place] [address] Dr. Terence Love ATYPICAL LYMPH % 3 % Normal [facility] Comment on above: Performed By: #### M G, BMP, URIC, ALB, PHOS #### [facility] [address] [place] [address] Dr. Terence Love BAND # 0.2 103/ul Normal 0.0-0.3 [facility] Comment on above: Performed By: #### M G, BMP, URIC, ALB, PHOS #### [facility] [address] [place] [address] Dr. Terence Love BAND % 2 % Normal 0-5 [facility] Comment on above: Performed By: #### M G, BMP, URIC, ALB, PHOS #### [facility] [address] [place] [address] Dr. Terence Love BASOM # 0.00 103/ul Normal 0.00-0.10 [facility] Comment on above: Performed By: #### M G, BMP, URIC, ALB, PHOS #### [facility] [facility] [address] [address] [address] Terence Love BASOM % 0.0 % Critically low 0.2-2.0 [facility] Comment on above: Performed By: #### M G, BMP, URIC, ALB, PHOS #### [facility] [address] [address] [address] Terence Love BLAST # Normal [facility] Comment on above: Performed By: #### M G, BMP, URIC, ALB, PHOS #### [facility] [address] [address] [address] Terence Love BLAST % Normal [facility] Comment on above: Performed By: #### M G, BMP, URIC, ALB, PHOS #### [facility] [address] [address] [address] Terence Love CORRECTED WBC Normal 4.0-11.0 [facility] Comment on above: Performed By: #### M G, BMP, URIC, ALB, PHOS #### [facility] [address] [address] [address] Terence Love EOS # 0.00 103/ul Normal 0.00-0.70 [facility] Comment on above: Performed By: #### M G, BMP, URIC, ALB, PHOS #### [facility] [address] [address] [address] Terence Love EOS% 0.0 % Critically low 0.9-7.0 [facility] Comment on above: Performed By: #### M G, BMP, URIC, ALB, PHOS #### [facility] [address] [address] [address] Terence Love HCT 41.3 % Critically low 42.0-54.0 [facility] Comment on above: Performed By: #### M G, BMP, URIC, ALB, PHOS #### [facility] [address] [address] [address] Terence Love HGB 13.8 g/dl Critically low 14.0-18.0 [facility] Comment on above: Performed By: #### M G, BMP, URIC, ALB, PHOS #### [facility] [address] [place] [address] Dr. Terence Love LYMPHM # 0.19 103/ul Critically low 1.20-3.80 [facility] Comment on above: Performed By: #### M G, BMP, URIC, ALB, PHOS #### [facility] [address] [place] [address] Dr. Terence Love LYMPHM% 2.0 % Critically low 20.5-60.0 [facility] Comment on above: Performed By: #### M G, BMP, URIC, ALB, PHOS #### [facility] [address] [place] [address] Dr. Terence Love MCH 29.4 pg Normal 25.9-34.0 [facility] Comment on above: Performed By: #### M G, BMP, URIC, ALB, PHOS #### [facility] [address] [place] [address] Dr. Terence Love MCHC 33.4 g/dl Normal 29.9-35.2 [facility] Comment on above: Performed By: #### M G, BMP, URIC, ALB, PHOS #### [facility] [address] [place] [address] Dr. Terence Love MCV 87.9 fL Normal 80.0-94.0 [facility] Comment on above: Performed By: #### M G, BMP, URIC, ALB, PHOS #### [facility] [address] [place] [address] Dr. Terence Love METAMYELOCYTE # Normal [facility] Comment on above: Performed By: #### M G, BMP, URIC, ALB, PHOS #### [facility] [address] [place] [address] Dr. Terence Love METAMYELOCYTE % Normal [facility] Comment on above: Performed By: #### M G, BMP, URIC, ALB, PHOS #### [facility] [address] [place] [address] Dr. Terence Love MONOM# 0.10 103/ul Critically low 0.30-0.80 [facility] Comment on above: Performed By: #### M G, BMP, URIC, ALB, PHOS #### [facility] [address] [place] [address] Dr. Terence Love MONOM% 1.0 % Critically low 1.7-12.0 [facility] Comment on above: Performed By: #### M G, BMP, URIC, ALB, PHOS #### [facility] [address] [address] [address] Terence Love MPV 10.7 fL Normal 9.5-13.5 [facility] Comment on above: Performed By: #### M G, BMP, URIC, ALB, PHOS #### [facility] [address] [place] [address] Dr. Terence Love MYELOCYTE # Normal [facility] Comment on above: Performed By: #### M G, BMP, URIC, ALB, PHOS #### [facility] [address] [place] [address] Dr. eTrence Love MYELOCYTE % Normal [facility] Comment on above: Performed By: #### M G, BMP, URIC, ALB, PHOS #### [facility] [address] [place] [address] Dr. Terence Love NRBC Normal [facility] Comment on above: Performed By: #### M G, BMP, URIC, ALB, PHOS #### [facility] [address] [place] [address] Dr. Terence Love PLT 214 103/ul Normal 150-450 [facility] Comment on above: Performed By: #### M G, BMP, URIC, ALB, PHOS #### [facility] [address] [place] [address] Dr. Terence Love RBC 4.70 106/ul Normal 4.70-6.10 [facility] Comment on above: Performed By: #### M G, BMP, URIC, ALB, PHOS #### [facility] [address] [place] [address] Dr. Terence Love RDW 13.2 % Normal 11.0-15.0 [facility] Comment on above: Performed By: #### M G, BMP, URIC, ALB, PHOS #### [facility] [address] [place] [address] Dr. Terence Love SEG # 8.83 103/ul Critically high 1.40-6.50 [facility] Comment on above: Performed By: #### M G, BMP, URIC, ALB, PHOS #### [facility] [address] [place] [address] Dr. Terence Love SEG % 92.0 % Critically high 43.0-75.0 [facility] Comment on above: Performed By: #### M G, BMP, URIC, ALB, PHOS #### [facility] [address] [place] [address] Dr. Terence Love WBC 9.6 103/ul Normal 4.0-11.0 [facility] Comment on above: Performed By: #### M G, BMP, URIC, ALB, PHOS #### [facility] [address] [place] [address] Dr. Terence Love PROF CHEM 8 (BAS METB)on Anion gap [Moles/Vol] 13.7 mmol/L Normal [facility] Comment on above: Performed By: #### M G, BMP, URIC, ALB, PHOS #### [facility] [address] [place] [address] Dr. Terence Love Calcium [Mass/Vol] 9.1 mg/dL Normal 8.5-10.1 [facility] Comment on above: Performed By: #### M G, BMP, URIC, ALB, PHOS #### [facility] [address] [place] [address] Dr. Terence Love Chloride [Moles/Vol] 102 mmol/L Normal 98-107 [facility] Comment on above: Performed By: #### M G, BMP, URIC, ALB, PHOS #### [facility] [address] [place] [address] Dr. Terence Love CO2 [Moles/Vol] 25.2 mmol/L Normal 21.0-32.0 [facility] Comment on above: Performed By: #### M G, BMP, URIC, ALB, PHOS #### [facility] [address] [place] [address] Dr. Terence Love Creatinine [Mass/Vol] 1.57 mg/dL Critically high 0.70-1.30 [facility] Comment on above: Performed By: #### M G, BMP, URIC, ALB, PHOS #### [facility] [address] [address] [address] Terence Love EGFR-AF CHILEAN 52 mL/min/1.73m2 Critically low >=60 [facility] Comment on above: Performed By: #### M G, BMP, URIC, ALB, PHOS #### [facility] [address] [place] [address] Dr. Terence Love EGFR-NON AF CHILEAN 43 mL/min/1.73m2 Critically low >=60 [facility] Comment on above: Performed By: #### M G, BMP, URIC, ALB, PHOS #### [facility] [address] [place] [address] Dr. Terence Love Glucose [Mass/Vol] 193 mg/dL Critically high 74-106 [facility] Comment on above: Performed By: #### M G, BMP, URIC, ALB, PHOS #### [facility] [address] [place] [address] Dr. Terence Love Potassium [Moles/Vol] 3.9 mmol/L Normal 3.5-5.1 [facility] Comment on above: Performed By: #### M G, BMP, URIC, ALB, PHOS #### [facility] [address] [address] [address] Terence Love Sodium [Moles/Vol] 137 mmol/L Normal 136-145 [facility] Comment on above: Performed By: #### M G, BMP, URIC, ALB, PHOS #### [facility] [address] [place] [address] Dr. Terence Love Urea nitrogen [Mass/Vol] 26.0 mg/dL Critically high 7.0-18.0 [facility] Comment on above: Performed By: #### M G, BMP, URIC, ALB, PHOS #### [facility] [address] [place] [address] Dr. Terence Love Urea nitrogen/Creatinine [Mass ratio] 16.6 mg/mg Normal [facility] Comment on above: Performed By: #### M G, BMP, URIC, ALB, PHOS #### [facility] [address] [place] [address] Dr. Terence Love CBC AUTO DIFFon 12-15-2021 BASO # 0.0 103/ul Normal 0.0-0.1 [facility] Comment on above: Performed By: #### M G, BMP, URIC, ALB, PHOS #### [facility] [address] [place] [address] Dr. Terence Love Basophils/100 WBC (Bld) 0.4 % Normal 0.2-2.0 [facility] Comment on above: Performed By: #### M G, BMP, URIC, ALB, PHOS #### [facility] [address] [place] [address] Dr. Terence Love EO # 0.1 103/ul Normal 0.0-0.7 [facility] Comment on above: Performed By: #### M G, BMP, URIC, ALB, PHOS #### [facility] [address] [place] [address] Dr. Terence Love Eosinophils/100 WBC (Bld) 1.2 % Normal 0.9-7.0 [facility] Comment on above: Performed By: #### M G, BMP, URIC, ALB, PHOS #### [facility] [address] [place] [address] Dr. Terence Love Erythrocyte distribution width (RBC) [Ratio] 13.2 % Normal 11.0-15.0 [facility] Comment on above: Performed By: #### M G, BMP, URIC, ALB, PHOS #### [facility] [address] [place] [address] Dr. Terence Love Hematocrit (Bld) [Volume fraction] 43.3 % Normal 42.0-54.0 [facility] Comment on above: Performed By: #### M G, BMP, URIC, ALB, PHOS #### [facility] [address] [place] [address] Dr. Terence Love Hemoglobin (Bld) [Mass/Vol] 14.1 g/dL Normal 14.0-18.0 [facility] Comment on above: Performed By: #### M G, BMP, URIC, ALB, PHOS #### [facility] [address] [place] [address] Dr. Terence Love IG # 0.02 10e3/ul Normal 0.00-0.03 [facility] Comment on above: Performed By: #### M G, BMP, URIC, ALB, PHOS #### [facility] [address] [place] [address] Dr. Terence Love IG % 0.3 % Normal 0.0-0.5 [facility] Comment on above: Performed By: #### M G, BMP, URIC, ALB, PHOS #### [facility] [address] [place] [address] Dr. Terence Love LYMPH # 1.3 103/ul Normal 1.2-3.8 [facility] Comment on above: Performed By: #### M G, BMP, URIC, ALB, PHOS #### [facility] [address] [place] [address] Dr. Terence Love Lymphocytes/100 WBC (Bld) 18.0 % Critically low 20.5-60.0 [facility] Comment on above: Performed By: #### M G, BMP, URIC, ALB, PHOS #### [facility] [address] [place] [address] Dr. Terence Love MANUAL DIFF REQ NO Normal [facility] Comment on above: Performed By: #### M G, BMP, URIC, ALB, PHOS #### [facility] [address] [place] [address] Dr. Terence Love MCH (RBC) [Entitic mass] 29.4 pg Normal 25.9-34.0 [facility] Comment on above: Performed By: #### M G, BMP, URIC, ALB, PHOS #### [facility] [address] [place] [address] Dr. Terence Love MCHC (RBC) [Mass/Vol] 32.6 g/dL Normal 29.9-35.2 [facility] Comment on above: Performed By: #### M G, BMP, URIC, ALB, PHOS #### [facility] [address] [place] [address] Dr. Terence Love MCV (RBC) [Entitic vol] 90.2 fL Normal 80.0-94.0 [facility] Comment on above: Performed By: #### M G, BMP, URIC, ALB, PHOS #### [facility] [address] [place] [address] Dr. Terence Love MONO # 0.8 103/ul Normal 0.3-0.8 [facility] Comment on above: Performed By: #### M G, BMP, URIC, ALB, PHOS #### [facility] [address] [place] [address] Dr. Terence Love Monocytes/100 WBC (Bld) 11.2 % Normal 1.7-12.0 [facility] Comment on above: Performed By: #### M G, BMP, URIC, ALB, PHOS #### [facility] [address] [place] [address] Dr. Terence Love NEUT # 5.0 103/ul Normal 1.4-6.5 [facility] Comment on above: Performed By: #### M G, BMP, URIC, ALB, PHOS #### [facility] [address] [place] [address] Dr. Terence Love Neutrophils/100 WBC (Bld) 68.9 % Normal 43.0-75.0 [facility] Comment on above: Performed By: #### M G, BMP, URIC, ALB, PHOS #### [facility] [address] [place] [address] Dr. Terence Love Platelet mean volume (Bld) [Entitic vol] 10.5 fL Normal 9.5-13.5 [facility] Comment on above: Performed By: #### M G, BMP, URIC, ALB, PHOS #### [facility] [address] [address] [address] Terence Love PLT 211 103/ul Normal 150-450 [facility] Comment on above: Performed By: #### M G, BMP, URIC, ALB, PHOS #### [facility] [address] [address] [address] Terence Love RBC 4.80 106/ul Normal 4.70-6.10 [facility] Comment on above: Performed By: #### M G, BMP, URIC, ALB, PHOS #### [facility] [address] [place] [address] Dr. Terence Love WBC 7.3 103/ul Normal 4.0-11.0 [facility] Comment on above: Performed By: #### M G, BMP, URIC, ALB, PHOS #### [facility] [address] [place] [address] STROKE HEAD WOon 12-16-[address] STROKE HEAD WO NONCONTRAST HEAD CT COMPARISON: .Head CT 10/23/32 CLINICAL HISTORY: .mental status change TECHNIQUE: Routine noncontrast images of the brain obtained. CT examination of the head without IV contrast. Dose reduction techniques were achieved by using: automated exposure control and/or adjustment of mA and /or kV according to patient size and/or use of iterative reconstruction technique. FINDINGS: Paranasal sinuses and mastoid air cells are clear. Intraorbital contents are unremarkable. No acute bony abnormality. Intracranially, there is no evidence of hemorrhage, mass effect, or midline shift. Ventricles and cisternal spaces are age appropriate. Dense carotid calcifications. IMPRESSION: No acute intracranial abnormality. Electronically authenticated by: GEOVANNA URBINA Date: 2021-12-15 14:54 Normal [facility] CTA HEAD WO W CONon 12-16-19 22 CTA HEAD WO W CON EXAMINATION: CTA HEAD WO W CON, CTA NECK WO W CON HISTORY: Cerebrovascular accident ; right facial droop and weakness COMPARISON: CT head without contrast 12/15/2021 TECHNIQUE: Axial, Coronal, and Sagittal CT images with IV contrast. Multi-planar/3-D imaging to optimize visualization of vascular anatomy. Percent stenosis is based on NASCET criteria. Dose reduction techniques were achieved by using automated exposure control and/or adjustment of mA and/or kV according to patient size and/or use of iterative reconstruction technique. FINDINGS: HEAD: VASCULATURE: Mild atherosclerotic disease of the parasellar carotid arteries.. No significant stenosis. No visible aneurysm or vascular malformation. VENTRICLES: Normal for age. No enlargement or displacement. CEREBRUM: Normal for age. No excessive atrophy, mass, or hemorrhage, or abnormal enhancement. CEREBELLUM: Normal for age. No excessive atrophy, mass, or hemorrhage, or abnormal enhancement. BRAINSTEM: Normal for age. No excessive atrophy, mass, or hemorrhage, or abnormal enhancement. BASAL CISTERNS: Normal. No subarachnoid hemorrhage or effacement. SKULL: Negative. NECK: RIGHT INTERNAL CAROTID: Mild atherosclerotic narrowing of the bulb and proximal ICA. EXTERNAL CAROTID: No hemodynamically significant stenosis or dissection. COMMON CAROTID: No hemodynamically significant stenosis or dissection. VERTEBRAL: Moderate atherosclerotic narrowing at base of skull. LEFT INTERNAL CAROTID: No hemodynamically significant stenosis or dissection. EXTERNAL CAROTID: No hemodynamically significant stenosis or dissection. COMMON CAROTID: No hemodynamically significant stenosis or dissection. VERTEBRAL: Moderate atherosclerotic narrowing at base of skull. OTHER: 1.5 cm nodule versus colloid cyst within right thyroid lobe. C3-C4 anterior mechanical fusion. Multilevel moderate degenerative disc disease and marked degenerative facet arthropathy of the cervical spine. IMPRESSION: 1. No aneurysm or occlusion of the carotid arteries, vertebral arteries, or [place]. 2. 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 3. No specific findings to account for patient's symptoms. Electronically authenticated by: PAPITO GUAMAN Date: 2021-12-15 17:12 Normal [facility] Covid-19 PCR (CVDTB)on 12-01 SARS-CoV-2 (COVID-19) RNA KOLTON+probe Ql (Unsp spec) Not detected Normal NOT DETECTED [facility] Comment on above: Result Comment: When diagnostic testing is negative, the possibility of a false negative should be considered in the context of a patient's recent exposures and the presence of clinical signs and symptoms consistent with SARS-CoV-2. This test is not yet approved or cleared by the [place] FDA. When there are no FDA-approved or cleared tests available, and other criteria are met, FDA can make tests available under an emergency access mechanism called an Emergency Use Authorization (EUA). The EUA for this test is supported by the [place] of Health and Human Service's declaration that circumstances exist to justify the emergency use of in vitro diagnostics for the detection and/or diagnosis of the virus that causes COVID-19. This EUA will remain in effect for the duration of the COVID-19 declaration justifying emergency of IVDs, unless it is terminated or revoked by the FDA (after which the test may no longer be used). Performed By: #### M G, BMP, URIC, ALB, PHOS #### [facility] [address] [place] [address] Dr. Terence Love ER URINE PROFILEon 2 Bilirubin Ql (U) Negative Normal NEGATIVE [facility] Comment on above: Performed By: #### M G, BMP, URIC, ALB, PHOS #### [facility] [address] [place] [address] Dr. Terence Love Clarity (U) CLEAR Normal CLEAR [facility] Comment on above: Performed By: #### M G, BMP, URIC, ALB, PHOS #### [facility] [address] [place] [address] Dr. Terence Love Color (U) LT. YELLOW Normal YELLOW [facility] Comment on above: Performed By: #### M G, BMP, URIC, ALB, PHOS #### [facility] [address] [place] [address] Dr. Terence Love ERUAHD A micrscopic examination will be performed if indicated. Normal [facility] Comment on above: Performed By: #### M G, BMP, URIC, ALB, PHOS #### [facility] [address] [place] [address] Dr. Terence Love Glucose Ql (U) 100 mg/dl Abnormal NEGATIVE [facility] Comment on above: Performed By: #### M G, BMP, URIC, ALB, PHOS #### [facility] [address] [place] [address] Dr. Terence Love Hemoglobin Ql (U) Negative Normal NEGATIVE [facility] Comment on above: Performed By: #### M G, BMP, URIC, ALB, PHOS #### [facility] [address] [place] [address] Dr. Terence Love Ketones Ql (U) Negative Normal NEGATIVE [facility] Comment on above: Performed By: #### M G, BMP, URIC, ALB, PHOS #### [facility] [address] [place] [address] Dr. Terence Love LEUKOCYTES Negative Normal NEGATIVE [facility] Comment on above: Performed By: #### M G, BMP, URIC, ALB, PHOS #### [facility] [address] [place] [address] Dr. Terence Love Nitrite Ql (U) Negative Normal NEGATIVE [facility] Comment on above: Performed By: #### M G, BMP, URIC, ALB, PHOS #### [facility] [address] [place] [address] Dr. Terence Love pH (U) 5.5 [pH] Normal 5-9 [facility] Comment on above: Performed By: #### M G, BMP, URIC, ALB, PHOS #### [facility] [address] [place] [address] Dr. Terence Love SPEC GRAVITY 1.010 Normal 1.005-<=1.[address] [facility] Comment on above: Performed By: #### M G, BMP, URIC, ALB, PHOS #### [facility] [address] [place] [address] Dr. Terence Love UA PROTEIN Negative Normal NEGATIVE/ TRACE [facility] Comment on above: Performed By: #### M G, BMP, URIC, ALB, PHOS #### [facility] [address] [place] [address] Dr. Terence Love UR MICRO IND NOT INDICATED Normal [facility] Comment on above: Performed By: #### M G, BMP, URIC, ALB, PHOS #### [facility] [address] [place] [address] Dr. Terence Love Urobilinogen Qn (U) 0.2 {Cherise'U}/dL Normal 0.2 - 1. 0 [facility] Comment on above: Performed By: #### M G, BMP, URIC, ALB, PHOS #### [facility] [address] [place] [address] Dr. Terence Love POINT OF CARE GLUCOSEon 12-01 Glucose [Mass/Vol] 124 mg/dL Critically high 74-106 [facility] Comment on above: Performed By: #### M G, BMP, URIC, ALB, PHOS #### [facility] [address] [place] [address] Dr. Terence Love PROF 14(COMP METB)on 022 Albumin [Mass/Vol] 4.0 g/dL Normal 3.4-5.0 [facility] Comment on above: Performed By: #### M G, BMP, URIC, ALB, PHOS #### [facility] [address] [place] [address] Dr. Terence Love Albumin/Globulin [Mass ratio] 1.1 {ratio} Normal [facility] Comment on above: Performed By: #### M G, BMP, URIC, ALB, PHOS #### [facility] [address] [place] [address] Dr. Terence Love ALP [Catalytic activity/Vol] 81 U/L Normal 46-116 [facility] Comment on above: Performed By: #### M G, BMP, URIC, ALB, PHOS #### [facility] [address] [place] [address] Dr. Terence Love ALT [Catalytic activity/Vol] 29 U/L Normal 16-63 [facility] Comment on above: Performed By: #### M G, BMP, URIC, ALB, PHOS #### [facility] [address] [place] [address] Dr. Terence Love Anion gap [Moles/Vol] 14.5 mmol/L Normal [facility] Comment on above: Performed By: #### M G, BMP, URIC, ALB, PHOS #### [facility] [address] [place] [address] Dr. Terence Love AST [Catalytic activity/Vol] 18 U/L Normal 15-37 [facility] Comment on above: Performed By: #### M G, BMP, URIC, ALB, PHOS #### [facility] [address] [place] [address] Dr. Terence Love Bilirubin [Mass/Vol] 0.8 mg/dL Normal 0.2-1.0 [facility] Comment on above: Performed By: #### M G, BMP, URIC, ALB, PHOS #### [facility] [address] [place] [address] Dr. Terence Love Calcium [Mass/Vol] 9.3 mg/dL Normal 8.5-10.1 [facility] Comment on above: Performed By: #### M G, BMP, URIC, ALB, PHOS #### [facility] [address] [place] [address] Dr. Terence Love Chloride [Moles/Vol] 102 mmol/L Normal 98-107 [facility] Comment on above: Performed By: #### M G, BMP, URIC, ALB, PHOS #### [facility] [address] [place] [address] Dr. Terence Love CO2 [Moles/Vol] 26.7 mmol/L Normal 21.0-32.0 [facility] Comment on above: Performed By: #### M G, BMP, URIC, ALB, PHOS #### [facility] [address] [place] [address] Dr. Terence Love Creatinine [Mass/Vol] 1.56 mg/dL Critically high 0.70-1.30 [facility] Comment on above: Performed By: #### M G, BMP, URIC, ALB, PHOS #### [facility] [address] [place] [address] Dr. Terence Love EGFR-AF CHILEAN 52 mL/min/1.73m2 Critically low >=60 [facility] Comment on above: Performed By: #### M G, BMP, URIC, ALB, PHOS #### [facility] [address] [place] [address] Dr. Terence Love EGFR-NON AF CHILEAN 43 mL/min/1.73m2 Critically low >=60 [facility] Comment on above: Performed By: #### M G, BMP, URIC, ALB, PHOS #### [facility] [address] [place] [address] Dr. Terence Love Globulin (S) [Mass/Vol] 3.6 g/dL Normal [facility] Comment on above: Performed By: #### M G, BMP, URIC, ALB, PHOS #### [facility] [address] [place] [address] Dr. Terence Love Glucose [Mass/Vol] 179 mg/dL Critically high 74-106 [facility] Comment on above: Performed By: #### M G, BMP, URIC, ALB, PHOS #### [facility] [address] [place] [address] Dr. Terence Love Potassium [Moles/Vol] 4.2 mmol/L Normal 3.5-5.1 [facility] Comment on above: Performed By: #### M G, BMP, URIC, ALB, PHOS #### [facility] [address] [place] [address] Dr. Terence Love Protein [Mass/Vol] 7.6 g/dL Normal 6.4-8.2 [facility] Comment on above: Performed By: #### M G, BMP, URIC, ALB, PHOS #### [facility] [address] [place] [address] Dr. Terence Love Sodium [Moles/Vol] 139 mmol/L Normal 136-145 [facility] Comment on above: Performed By: #### M G, BMP, URIC, ALB, PHOS #### [facility] [address] [address] [address] Terence Love Urea nitrogen [Mass/Vol] 26.0 mg/dL Critically high 7.0-18.0 [facility] Comment on above: Performed By: #### M G, BMP, URIC, ALB, PHOS #### [facility] [address] [place] [address] Dr. Terence Love Urea nitrogen/Creatinine [Mass ratio] 16.7 mg/mg Normal [facility] Comment on above: Performed By: #### M G, BMP, URIC, ALB, PHOS #### [facility] [address] [place] [address] Dr. Terence Love PROTIMEon 12-15-2021 INR Coag (PPP) [Relative time] 1.01 {INR} Normal [facility] Comment on above: Performed By: #### M G, BMP, URIC, ALB, PHOS #### [facility] [address] [place] [address] Dr. Terence Love INR GUIDELINES SEE BELOW Normal [facility] Comment on above: Result Comment: THERESA RED INR: 2.0 - 3.0 CONDITIONS NOT LISTED BELOW 2.5 - 3.5 FOR PROSTHETIC HEART VALVE REPLACEMENT 2.5 - 3.5 RECURRENT THROMBOSIS Performed By: #### M G, BMP, URIC, ALB, PHOS #### [facility] [address] [place] [address] Dr. Terence Love PT Coag (PPP) [Time] 10.9 s Normal 9.0-11.6 [facility] Comment on above: Performed By: #### M G, BMP, URIC, ALB, PHOS #### [facility] [address] [place] [address] Dr. Terence Love PTTon 12-15-2021 aPTT Coag (Bld) [Time] 26.8 s Normal 22.3-36.2 [facility] Comment on above: Performed By: #### M G, BMP, URIC, ALB, PHOS #### [facility] [address] [place] [address] Dr. Terence Love TROPONIN, HIGH SENSITIVITYon 12-15-2021 HSTROP 6.0 pg/mL Normal 4.0-76.1 [facility] Comment on above: Result Comment: CUT- OFF POINTS HAVE BEEN ESTABLISHED BASED ON THE FOURTH UNIVERSAL DEFINITIONS OF MYOCARDIAL INFARCTION. THE UPPER REFERENCE LIMIT (URL) OF TROPONIN, DEFINED THE 99TH PERCENTILE OF cTnI DISTRIBUTION IN A REFERENCE POPULATION, HAS BEEN CONFIRMED THE DECISION THRESHOLD FOR CT DIAGNOSIS. Performed By: #### M G, BMP, URIC, ALB, PHOS #### [facility] [address] [address] [address] Terence Love TSHon 12-15-2021 TSH 1.163 uIU/mL Normal 0.358-3.740 [facility] Comment on above: Performed By: #### M G, BMP, URIC, ALB, PHOS #### [facility] [address] [address] [address] Terence Love XR CHEST 2 Von 12-15-2021 XR CHEST 2 V EXAM: XR CHEST 2 V HISTORY: Cerebrovascular accident . This is a 76-year-old with facial droop and weakness on the right side of the face the past 6 months. COMPARISON: 06/21/2020 TECHNIQUE: PA and lateral chest x-ray FINDINGS: The left-sided pacemaker remains in place. The heart is not enlarged and the vasculature is not distended. No acute infiltrate, effusion or pneumothorax is identified. Mild degenerative changes are seen in the spine. IMPRESSION: No acute infiltrate or evidence of cardiac decompensation. The overall appearance of the chest is unchanged. Electronically authenticated by: GEORGIE CHARLES Date: 2021-12-15 14:50 Normal [facility] CBC AUTO DIFFon 12-14-2021 BASO # 0.0 103/ul Normal 0.0-0.1 [facility] Comment on above: Performed By: #### M G, BMP, URIC, ALB, PHOS #### [facility] [address] [place] [address] Dr. Terence Love Basophils/100 WBC (Bld) 0.6 % Normal 0.2-2.0 [facility] Comment on above: Performed By: #### M G, BMP, URIC, ALB, PHOS #### [facility] [address] [address] [address] Terence Love EO # 0.1 103/ul Normal 0.0-0.7 [facility] Comment on above: Performed By: #### M G, BMP, URIC, ALB, PHOS #### [facility] [address] [address] [address] Terence Love Eosinophils/100 WBC (Bld) 1.4 % Normal 0.9-7.0 [facility] Comment on above: Performed By: #### M G, BMP, URIC, ALB, PHOS #### [facility] [address] [place] [address] Dr. Terence Love Erythrocyte distribution width (RBC) [Ratio] 13.2 % Normal 11.0-15.0 [facility] Comment on above: Performed By: #### M G, BMP, URIC, ALB, PHOS #### [facility] [address] [place] [address] Dr. Terence Love Hematocrit (Bld) [Volume fraction] 40.6 % Critically low 42.0-54.0 [facility] Comment on above: Performed By: #### M G, BMP, URIC, ALB, PHOS #### [facility] [address] [place] [address] Dr. Terence Love Hemoglobin (Bld) [Mass/Vol] 13.3 g/dL Critically low 14.0-18.0 [facility] Comment on above: Performed By: #### M G, BMP, URIC, ALB, PHOS #### [facility] [address] [place] [address] Dr. Terence Love IG # 0.03 10e3/ul Normal 0.00-0.03 [facility] Comment on above: Performed By: #### M G, BMP, URIC, ALB, PHOS #### [facility] [address] [place] [address] Dr. Terence Love IG % 0.4 % Normal 0.0-0.5 [facility] Comment on above: Performed By: #### M G, BMP, URIC, ALB, PHOS #### [facility] [address] [place] [address] Dr. Terence Love LYMPH # 1.2 103/ul Normal 1.2-3.8 [facility] Comment on above: Performed By: #### M G, BMP, URIC, ALB, PHOS #### [facility] [address] [place] [address] Dr. Terence Love Lymphocytes/100 WBC (Bld) 17.5 % Critically low 20.5-60.0 [facility] Comment on above: Performed By: #### M G, BMP, URIC, ALB, PHOS #### [facility] [address] [place] [address] Dr. Terence Love MANUAL DIFF REQ NO Normal [facility] Comment on above: Performed By: #### M G, BMP, URIC, ALB, PHOS #### [facility] [address] [place] [address] Dr. Terence Love MCH (RBC) [Entitic mass] 29.6 pg Normal 25.9-34.0 [facility] Comment on above: Performed By: #### M G, BMP, URIC, ALB, PHOS #### [facility] [address] [place] [address] Dr. Terence Love MCHC (RBC) [Mass/Vol] 32.8 g/dL Normal 29.9-35.2 [facility] Comment on above: Performed By: #### M G, BMP, URIC, ALB, PHOS #### [facility] [address] [place] [address] Dr. Terence Love MCV (RBC) [Entitic vol] 90.4 fL Normal 80.0-94.0 [facility] Comment on above: Performed By: #### M G, BMP, URIC, ALB, PHOS #### [facility] [address] [place] [address] Dr. Terence Love MONO # 0.7 103/ul Normal 0.3-0.8 [facility] Comment on above: Performed By: #### M G, BMP, URIC, ALB, PHOS #### [facility] [address] [place] [address] Dr. Terence Love Monocytes/100 WBC (Bld) 10.4 % Normal 1.7-12.0 [facility] Comment on above: Performed By: #### M G, BMP, URIC, ALB, PHOS #### [facility] [address] [place] [address] Dr. Terence Love NEUT # 4.8 103/ul Normal 1.4-6.5 [facility] Comment on above: Performed By: #### M G, BMP, URIC, ALB, PHOS #### [facility] [address] [address] [address] Terence Love Neutrophils/100 WBC (Bld) 69.7 % Normal 43.0-75.0 [facility] Comment on above: Performed By: #### M G, BMP, URIC, ALB, PHOS #### [facility] [address] [address] [address] Terence Love Platelet mean volume (Bld) [Entitic vol] 11.0 fL Normal 9.5-13.5 [facility] Comment on above: Performed By: #### M G, BMP, URIC, ALB, PHOS #### [facility] [address] [place] [address] Dr. Terence Love PLT 202 103/ul Normal 150-450 [facility] Comment on above: Performed By: #### M G, BMP, URIC, ALB, PHOS #### [facility] [address] [place] [address] Dr. Terence Love RBC 4.49 106/ul Critically low 4.70-6.10 [facility] Comment on above: Performed By: #### M G, BMP, URIC, ALB, PHOS #### [facility] [address] [place] [address] Dr. Terence Love WBC 6.9 103/ul Normal 4.0-11.0 [facility] Comment on above: Performed By: #### M G, BMP, URIC, ALB, PHOS #### [facility] [address] [place] [address] Dr. Terence Love GLYCOHEMOGLOBIN A1Con 2021 ADA RECOMMENDATION SEE BELOW Normal [facility] Comment on above: Result Comment: ADA RECOMMENDED LIMIT 4.0 - 6.0 ADA THERAPEUTIC TARGET < 7.0 ACTION SUGGESTED > 7.0 Performed By: #### M G, BMP, URIC, ALB, PHOS #### [facility] [address] [place] [address] Dr. Terence Love Glucose [Mass/Vol] 180 mg/dL Normal [facility] Comment on above: Performed By: #### M G, BMP, URIC, ALB, PHOS #### [facility] [address] [address] [address] Terence Love HbA1c (Bld) [Mass fraction] 7.9 % Critically high 4.5-6.2 [facility] Comment on above: Performed By: #### M G, BMP, URIC, ALB, PHOS #### [facility] [address] [address] [address] Terence Love LIPID PROFILEon 12-14-2021 CHOL-HDL RATIO NORM SEE BELOW Normal [facility] Comment on above: Result Comment: 3.3 - 4.4 LOW RISK 4.4 - 7.1 AVERAGE RISK 7.1 - 11.0 MODERATE RISK >11.0 HIGH RISK Performed By: #### M G, BMP, URIC, ALB, PHOS #### [facility] [address] [place] [address] Dr. Terence Love Cholesterol [Mass/Vol] 156 mg/dL Normal <=200 Th [facility] Comment on above: Performed By: #### M G, BMP, URIC, ALB, PHOS #### [facility] [address] [place] [address] Dr. Terence Love Cholesterol in HDL [Mass/Vol] 55 mg/dL Normal 40-60 [facility] Comment on above: Performed By: #### M G, BMP, URIC, ALB, PHOS #### [facility] [address] [address] [address] Terence Love Cholesterol in LDL [Mass/Vol] 76.2 mg/dL Normal [facility] Comment on above: Performed By: #### M G, BMP, URIC, ALB, PHOS #### [facility] [address] [place] [address] Dr. Terence Love Cholesterol.total/Dotty sterol in HDL [Mass ratio] 2.8 {ratio} Normal [facility] Comment on above: Performed By: #### M G, BMP, URIC, ALB, PHOS #### [facility] [address] [place] [address] Dr. Terence Love HDL NORMAL > or = 60 mg/dl - LOW CARDIOVASCULAR RISK <40 mg/dl - HIGH CARDIOVASCULAR RISK Normal [facility] Comment on above: Performed By: #### M G, BMP, URIC, ALB, PHOS #### [facility] [address] [address] [address] Terence Love LDL CALC NORMAL SEE BELOW Normal [facility] Comment on above: Result Comment: <100 mg/dl OPTIMAL 100 - 129 mg/dl NEAR OR ABOVE OPTIMAL 130 - 159 mg/dl BORDERLINE HIGH 160 - 189 mg/dl HIGH >190 mg/dl VERY HIGH Performed By: #### M G, BMP, URIC, ALB, PHOS #### [facility] [address] [address] [address] Terence Love Triglyceride [Mass/Vol] 124 mg/dL Normal <=150 T [facility] Comment on above: Performed By: #### M G, BMP, URIC, ALB, PHOS #### [facility] [address] [address] [address] Terence Love VLDL CALC 24.8 mg/dL Normal [facility] Comment on above: Performed By: #### M G, BMP, URIC, ALB, PHOS #### [facility] [address] [address] [address] Terence Love MICROALBUMIN, RAND URon 12-01 mALB 1.3 mg/L Normal <=30.0 [facility] Comment on above: Performed By: #### M G, BMP, URIC, ALB, PHOS #### [facility] [address] [place] [address] Dr. Terence Love PROF CHEM 8 (BAS METB)on Anion gap [Moles/Vol] 8.9 mmol/L Normal [facility] Comment on above: Performed By: #### M G, BMP, URIC, ALB, PHOS #### [facility] [address] [place] [address] Dr. Terence Love Calcium [Mass/Vol] 8.6 mg/dL Normal 8.5-10.1 [facility] Comment on above: Performed By: #### M G, BMP, URIC, ALB, PHOS #### [facility] [address] [address] [address] Terence Love Chloride [Moles/Vol] 104 mmol/L Normal 98-107 [facility] Comment on above: Performed By: #### M G, BMP, URIC, ALB, PHOS #### [facility] [address] [place] [address] Dr. Terence Love CO2 [Moles/Vol] 30.5 mmol/L Normal 21.0-32.0 [facility] Comment on above: Performed By: #### M G, BMP, URIC, ALB, PHOS #### [facility] [address] [place] [address] Dr. Terence Love Creatinine [Mass/Vol] 1.71 mg/dL Critically high 0.70-1.30 [facility] Comment on above: Performed By: #### M G, BMP, URIC, ALB, PHOS #### [facility] [address] [place] [address] Dr. Terence Love EGFR-AF CHILEAN 47 mL/min/1.73m2 Critically low >=60 [facility] Comment on above: Performed By: #### M G, BMP, URIC, ALB, PHOS #### [facility] [address] [place] [address] Dr. Terence Love EGFR-NON AF CHILEAN 39 mL/min/1.73m2 Critically low >=60 [facility] Comment on above: Performed By: #### M G, BMP, URIC, ALB, PHOS #### [facility] [address] [place] [address] Dr. Terence Love Glucose [Mass/Vol] 214 mg/dL Critically high 74-106 [facility] Comment on above: Performed By: #### M G, BMP, URIC, ALB, PHOS #### [facility] [address] [place] [address] Dr. Terence Love Potassium [Moles/Vol] 4.4 mmol/L Normal 3.5-5.1 [facility] Comment on above: Performed By: #### M G, BMP, URIC, ALB, PHOS #### [facility] [address] [address] [address] Terence Love Sodium [Moles/Vol] 139 mmol/L Normal 136-145 [facility] Comment on above: Performed By: #### M G, BMP, URIC, ALB, PHOS #### [facility] [address] [address] [address] Terence Love Urea nitrogen [Mass/Vol] 32.0 mg/dL Critically high 7.0-18.0 [facility] Comment on above: Performed By: #### M G, BMP, URIC, ALB, PHOS #### [facility] [address] [address] [address] Terence Love Urea nitrogen/Creatinine [Mass ratio] 18.7 mg/mg Normal [facility] Comment on above: Performed By: #### M G, BMP, URIC, ALB, PHOS #### [facility] [address] [address] [address] Terence Love SGOTon 12-14-2021 AST [Catalytic activity/Vol] 14 U/L Critically low 15-37 [facility] Comment on above: Performed By: #### M G, BMP, URIC, ALB, PHOS #### [facility] [address] [place] [address] Dr. Te[facility] 12-14-2021 ALT [Catalytic activity/Vol] 27 U/L Normal 16-63 [facility] Comment on above: Performed By: #### M G, BMP, URIC, ALB, PHOS #### [facility] [address] [address] [address] Terence Love XR knee RT 4V*on 05-01-2021 XR knee RT 4V* [facility] [employer] Other XR knee RT 4V* [facility] [employer] Other XR knee RT 4V* [address] [place] [address] [employer] Other XR knee RT 4V* [place] [address] No rt [employer] Other XR knee RT 4V* XRay Report [employer] Other XR knee RT 4V* Signed [employer] Other XR knee RT 4V* Patient: Jason Bartholomew MR#: [id number] [employer] Other XR knee RT 4V* 778 [employer] Other XR knee RT 4V* : 1945 Acct:[id number] [employer] Other XR knee RT 4V* Age/Sex: 75 / M ADM Date: 05/01/21 [employer] Other XR knee RT 4V* Loc: XDUCLY Room: Type: [facility] [employer] Other XR knee RT 4V* Attending Dr: Sonali JUNG [employer] Other XR knee RT 4V* Ordering Provider: ERICH Rosen [employer] Other XR knee RT 4V* Date of Service: 05/01/21 [employer] Other XR knee RT 4V* XR/XR knee RT 4V*: Acute pain of right knee [employer] Other XR knee RT 4V* ([id number]) XR/XR ankle RT min 3V*: Acute pain of right knee;Acute right ankle pain [employer] Other XR knee RT 4V* Copies to: ERICH Rosen [employer] Other XR knee RT 4V* CLINICAL DATA: Patient was moving a box and slipped and fell yesterday. Lateral right ankle and [employer] Other XR knee RT 4V* medial right knee pain. [facility] [employer] Other XR knee RT 4V* RIGHT ANKLE - 3 views [facility] [employer] Other XR knee RT 4V* COMPARISON: None [place] [employer] Other XR knee RT 4V* AP, lateral and oblique views were obtained. There is osteopenia. There is no evidence of [place] [employer] Other XR knee RT 4V* fracture or dislocation. There are minor degenerative changes with spurring at the dorsum of the [place] [employer] Other XR knee RT 4V* talus and calcaneal spurs. There is mild anterolateral soft tissue swelling. There is [employer] Other XR knee RT 4V* atherosclerotic disease. [employer] Other XR knee RT 4V* XR/XR ankle RT min 3V* [place] [employer] Other XR knee RT 4V* IMPRESSION: [facility] [employer] Other XR knee RT 4V* NO DEFINITE ACUTE BONY INJURY. [place] [employer] Other XR knee RT 4V* RIGHT KNEE - 4 views [place] [employer] Other XR knee RT 4V* AP, lateral and both oblique views were obtained. There is no acute fracture or dislocation. There [place] [employer] Other XR knee RT 4V* is mild narrowing of the medial tibiofemoral and patellofemoral joint compartments. There is mild [employer] Other XR knee RT 4V* marginal spurring. There is a trace amount of joint fluid. No focal soft tissue swelling is noted. [employer] Other XR knee RT 4V* OSTEOPENIA AND DEGENERATIVE CHANGES. [employer] Other XR knee RT 4V* NO ACUTE BONY INJURY. [employer] Other XR knee RT 4V* Impression dictated by: Char Jade M.D.05/01/2021 12:06 PM [employer] Other XR knee RT 4V* Dictation Location: [place] [address] [employer] Other XR knee RT 4V* Transcribed By: STEVEN 05/01/21 1206 [employer] Other XR knee RT 4V* Dictated By: Char Jade MD 05/01/21 1203 [employer] Other XR knee RT 4V* Signed By: [employer] Other XR knee RT 4V* 05/01/21 120 [employer] Other Cardiovascular Lab Reporton 06-14-2019 Cardiovascular Lab Report [facility] Patient Name: Puma [facility] A MR #: [id number] Department of Physician: Gilberto Manning M.D. Division of Service Date: 06/12/2019 Cardiology Birthdate: 1945 Adult Cardiovascular Room #: 3CD [id number] [place] [address] Cardiovascular Laboratory Report INDICATIONS: The patient is a gentleman who is post aortic valve replacement. He had intermittent complete heart block. 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 He needs a permanent pacemaker, however, because of the situation, we elected to place an emergent transvenous pacemaker to stabilize the patient. His sternal wires at one point stopped working and he had to be paced transcutaneously. He was brought to the EP suite, sterile prepped and draped. He had an existing introducer sheath in his right internal jugular vein. That sheath was exchanged out for a new one and a balloon-tipped temporary pacemaker wire was placed successfully with no complications. During the procedure at point, the transcutaneous pacemaker was also not functioning, so it was apparent this transvenous pacemaker was absolutely necessary. The pacemaker was sewn in place and he will subsequently go on to a permanent pacing today. There were no apparent complications. ASSESSMENT: Placement of a temporary transvenous pacemaker for complete heart block under the situation described. Administratively Signed Eliza Lee M.D. 07/19/2019 10:45 A Gilberto aMnning M.D. Date Dict: 06/14/201909:06 Skip/Gilberto Manning M.D. Date Trans: 06/14/2019 10:16 Skip/bert [id number] cc: Idris Jose M.D. [address] [facility] [address] Normal [facility] BASIC METABOLIC PANELon 06-02 Calcium [Mass/Vol] 8.8 mg/dL Normal 8.6-10.3 [facility] Comment on above: Order Comment: No: D o not add to previous draw Performed By: #### 1 69, [id number] ####[facility] [facility] [place] [address], [facility] Chloride [Moles/Vol] 104 mmol/L Normal 98-107 [facility] Comment on above: Order Comment: No: D o not add to previous draw Performed By: #### 1 69, [id number] ####[facility] [facility] [address], [place] CO2 [Moles/Vol] 28 mmol/L Normal 21-31 [facility] Comment on above: Order Comment: No: D o not add to previous draw Performed By: #### 1 69, [id number] ####[facility] [facility] [place] [address], [place] Creatinine [Mass/Vol] 1.39 mg/dL High 0.70-1.30 The [facility] Comment on above: Order Comment: No: D o not add to previous draw Performed By: #### 1 69, [id number] ####[facility] [place] [address], [facility] GFR/1.73 sq M predicted among blacks MDRD (S/P/Bld) [Vol rate/Area] 60 ml/min/1.73sq m Abnormal >60 The [facility] Comment on above: Order Comment: No: D o not add to previous draw Result Comment: Calc ulation may not be valid for patients over 70 years Performed By: #### 1 69, 79510 ####[facility] [facility] [id number], [facility] GFR/1.73 sq M predicted among non-blacks MDRD (S/P/Bld) [Vol rate/Area] 50 ml/min/1.73sq m Abnormal >60 [facility] Comment on above: Order Comment: No: D o not add to previous draw Result Comment: Calc ulation may not be valid for patients over 70 years Performed By: #### 1 69, 30835 ####[facility] [facility] [address], [facility] Glucose [Mass/Vol] 128 mg/dL High 70-100 [facility] Comment on above: Order Comment: No: D o not add to previous draw Performed By: #### 1 69, 51264 ####[facility] [place] [address], [place] Potassium [Moles/Vol] 3.3 mmol/L Low 3.5-5.1 [facility] Comment on above: Order Comment: No: D o not add to previous draw Performed By: #### 1 69, 13140 ####[facility] [place] [address], [place] Sodium [Moles/Vol] 143 mmol/L Normal 136-145 The [facility] Comment on above: Order Comment: No: D o not add to previous draw Performed By: #### 1 0070, 39066 ####[facility] [place] [address], [facility] Urea nitrogen [Mass/Vol] 40 mg/dL High 7-25 [facility] Comment on above: Order Comment: No: D o not add to previous draw Performed By: #### 1 0, 00016 ####[facility] [place] [address], [facility] CBC COMPLETE BLOOD COUNTon 08-14-2018 Erythrocyte distribution width (RBC) [Ratio] 14.0 % Normal 11.5-15.0 [facility] Comment on above: Order Comment: No: D o not add to previous draw Dup Performed By: #### 5 0608 #### [facility] [address] [place] [address], [facility] Hematocrit (Bld) [Volume fraction] 30.5 % Low 39.0-50.0 [facility] Comment on above: Order Comment: No: D o not add to previous draw Dup Performed By: #### 5 0608 #### [facility] [address] [place] [address], [facility] Hemoglobin (Bld) [Mass/Vol] 9.9 g/dL Low 13.0-17.0 [facility] Comment on above: Order Comment: No: D o not add to previous draw Dup Performed By: #### 5 0608 #### [facility] [address] [place] [address], [place] MCH (RBC) [Entitic mass] 30.0 pg Normal 27.0-33.0 [facility] Comment on above: Order Comment: No: D o not add to previous draw Dup Performed By: #### 5 0608 #### [facility] [address] [place] [address], [place] MCHC (RBC) [Mass/Vol] 32.5 g/dL Normal 32.0-35.0 [facility] Comment on above: Order Comment: No: D o not add to previous draw Dup Performed By: #### 5 0608 #### [facility] [address] [place] [address], [facility] MCV (RBC) [Entitic vol] 92.4 fL Normal 82.0-98.0 T [facility] Comment on above: Order Comment: No: D o not add to previous draw Dup Performed By: #### 5 0608 #### [facility] [address] [place] [address], [facility] Nucleated RBC/100 WBC (Bld) [Ratio] 0 % Normal 0-0 [facility] Comment on above: Order Comment: No: D o not add to previous draw Dup Performed By: #### 5 0608 #### [facility] [address] [facility] [place] [address], [facility] PLAT CNT 154 10*3/uL Normal 150-400 [facility] Comment on above: Order Comment: No: D o not add to previous draw Dup Performed By: #### 5 0608 #### [facility] [address] [facility] [place] [address], [facility] RBC (Bld) [#/Vol] 3.30 10*6/uL Low 4.20-5.70 The [facility] Comment on above: Order Comment: No: D o not add to previous draw Dup Performed By: #### 5 0608 #### [facility] [address] [place] [id number], [facility] WBC (Bld) [#/Vol] 11.68 10*3/uL High 4.00-10.60 [facility] Comment on above: Order Comment: No: D o not add to previous draw Dup Performed By: #### 5 0608 #### [facility] [address] [place] [id number], [facility] MAGNESIUM BLOODon 12-12-2019 Magnesium [Mass/Vol] 1.8 mg/dL Low 1.9-2.7 [facility] Comment on above: Order Comment: No: D o not add to previous draw Performed By: #### 8 7002 #### [facility] [address] [facility] [address], [facility] POC GLUCOSE LABon 06-13-2019 Glucose [Mass/Vol] 341 mg/dL High 70-100 [facility] Comment on above: Performed By: #### 8 5499 #### [facility] [address] [facility] [place] [address], [facility] Glucose [Mass/Vol] 124 mg/dL High 70-100 [facility] Comment on above: Performed By: #### 3 0738 #### [facility] [address] [facility] [place] [address], [facility] PORTABLE CHEST 1 VIEWon 06-02 PORTABLE CHEST 1 VIEW [facility] Department of Radiology [address] [place] [address] [id number] Patient Name: JASON BARTHOLOMEW : 1945 Sex: M Age: Race: White Pt. Location: [id number] Patient Status: I Ordered Date: 06/13/2019 7:00:00 AM Completed Date: 06/13/2019 08:06 AM Requesting Provider: YA LITTLE Attending Provider: JANETH HUTTON Report Copy To: Signs & Symptoms: Post Chest Tube Removal History: See Comments Comments: R/O Pneumothorax Exam: PORTABLE CHEST 1 VIEW PORTABLE CHEST 1 VIEW 06/13/2019 8:06 AM EST SIGNS AND SYMPTOMS: Post Chest Tube Removal TECHNOLOGIST COMMENTS: post chest tube removal QUESTION FOR THE RADIOLOGIST: R/O Pneumothorax PROTOCOL: AP(PA) view was obtained. COMPARISON: Prior study from the day before. FINDINGS: Frontal view of the chest revealed mild cardiomegaly. No change in left subclavian pacemaker with intact wires to meeting the right atrium and right ventricle. Interval removal of right chest tube, and mediastinal drains since prior exam with no evidence of pneumothorax. No focal infiltrates, effusion or pulmonary edema. Platelike atelectasis in the right midlung zone. 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 IMPRESSION: Interval removal of right chest tube and mediastinal drain with no evidence of pneumothorax. Platelike atelectasis in the right midlung. No acute pathology is appreciated. Electronically signed by:Noreen Menendez. Transcribed by: [email or web address], User Resident: Electronically Signed by: NOREEN MENENDEZ @ 06/13/2019 08:20 AM Normal [facility] Comment on above: Order Comment: R/O P neumothorax PROTHROMBIN TIMEon 9 INR Coag (PPP) [Relative time] 1.14 {INR} Normal 0.91-1.16 [facility] Comment on above: Order Comment: No: D o not add to previous draw Result Comment: ACCC P RECOMMENDED INR FOR WARFARIN THERAPY ------- CONDITION INR PROPHYLAXIS OF VENOUS THROMBOSIS 2-3 (HIGH-RISK SURGERY) TREATMENT OF VENOUS THROMBOSIS 2-3 TREATMENT OF PULMONARY EMBOLISM 2-3 PREVENTION OF SYSTEMIC EMBOLISM: 2-3 ACUTE MYOCARDIAL INFARCTION TISSUE HEART VALVES VALVULAR HEART DISEASE ATRIAL FIBRILLATION RECURRENT SYSTEMIC EMBOLISM MECHANICAL HEART VALVE 2.5-3.5 FROM: ORAL ANTICOAGULANTS. MECHANISM OF ACTION, CLINICAL EFFECTIVENESS, AND OPTIMAL THERAPEUTIC RANGE. CHEST 1995;108:231S-246S. Performed By: #### 8 5499 #### [facility] [address] PT Coag (PPP) [Time] 14.7 s Normal 12.3-14.8 [facility] Comment on above: Order Comment: No: D o not add to previous draw Result Comment: ALL RESULTS MUST BE INTERPRETED WITH RESPECT TO BLOOD DRAWING ARTIFACT OR DILUTION ERROR OF ANTICOAGULANT AT THE TIME OF SAMPLING. Performed By: #### 8 5499 #### [facility] [address] BASIC METABOLIC PANELon 12- Calcium [Mass/Vol] 9.1 mg/dL Normal 8.6-10.3 [facility] Comment on above: Order Comment: No: D o not add to previous draw Performed By: #### 8 5499 #### [facility] [address] [facility] [place] [address], [facility] Chloride [Moles/Vol] 110 mmol/L High 98-107 [facility] Comment on above: Order Comment: No: D o not add to previous draw Performed By: #### 8 5499 #### [facility] [address] [facility]. [place] [id number], [facility] CO2 [Moles/Vol] 27 mmol/L Normal 21-31 The [facility] Comment on above: Order Comment: No: D o not add to previous draw Performed By: #### 8 5499 #### [facility] [address] [facility] [place] [address], [facility] Creatinine [Mass/Vol] 1.48 mg/dL High 0.70-1.30 [facility] Comment on above: Order Comment: No: D o not add to previous draw Performed By: #### 8 5499 #### [facility] [address] [place] [address], [facility] GFR/1.73 sq M predicted among blacks MDRD (S/P/Bld) [Vol rate/Area] 56 ml/min/1.73sq m Abnormal >60 [facility] Comment on above: Order Comment: No: D o not add to previous draw Result Comment: Calc ulation may not be valid for patients over 70 years Performed By: #### 8 5499 #### [facility] [address] [place] [address], [facility] GFR/1.73 sq M predicted among non-blacks MDRD (S/P/Bld) [Vol rate/Area] 46 ml/min/1.73sq m Abnormal >60 [facility] Comment on above: Order Comment: No: D o not add to previous draw Result Comment: Calc ulation may not be valid for patients over 70 years Performed By: #### 8 5499 #### [facility] [address] [place] [address], [facility] Glucose [Mass/Vol] 152 mg/dL High 70-100 [facility] Comment on above: Order Comment: No: D o not add to previous draw Performed By: #### 8 5499 #### [facility] [address] [place] [address], [facility] Potassium [Moles/Vol] 3.4 mmol/L Low 3.5-5.1 [facility] Comment on above: Order Comment: No: D o not add to previous draw Performed By: #### 8 5499 #### [facility] [address] [place] [address], [place] Sodium [Moles/Vol] 147 mmol/L High 136-145 [facility] Comment on above: Order Comment: No: D o not add to previous draw Performed By: #### 8 5499 #### [facility] [address] [place] [address], [facility] Urea nitrogen [Mass/Vol] 54 mg/dL High 7-25 [facility] Comment on above: Order Comment: No: D o not add to previous draw Performed By: #### 8 5499 #### [facility] [address] [place] [address], [facility] CBC COMPLETE BLOOD COUNTon 1 08-13-2018 Erythrocyte distribution width (RBC) [Ratio] 14.4 % Normal 11.5-15.0 [facility] Comment on above: Order Comment: No: D o not add to previous draw Dup Performed By: #### 5 0608 #### [facility] [address] [place] [address], [facility] Hematocrit (Bld) [Volume fraction] 27.7 % Low 39.0-50.0 [facility] Comment on above: Order Comment: No: D o not add to previous draw Dup Performed By: #### 5 0608 #### [facility] [address] [place] [id number], [facility] Hemoglobin (Bld) [Mass/Vol] 9.0 g/dL Low 13.0-17.0 [facility] Comment on above: Order Comment: No: D o not add to previous draw Dup Performed By: #### 5 0608 #### [facility] [address] [place] [address], [facility] MCH (RBC) [Entitic mass] 30.0 pg Normal 27.0-33.0 [facility] Comment on above: Order Comment: No: D o not add to previous draw Dup Performed By: #### 5 0608 #### [facility] [address] [place] [address], [facility] MCHC (RBC) [Mass/Vol] 32.5 g/dL Normal 32.0-35.0 [facility] Comment on above: Order Comment: No: D o not add to previous draw Dup Performed By: #### 5 0608 #### [facility] [address] [place] [address], [facility] MCV (RBC) [Entitic vol] 92.3 fL Normal 82.0-98.0 T he [facility] Comment on above: Order Comment: No: D o not add to previous draw Dup Performed By: #### 5 0608 #### [facility] [address] [place] [address], [place] Nucleated RBC/100 WBC (Bld) [Ratio] 0 % Normal 0-0 [facility] Comment on above: Order Comment: No: D o not add to previous draw Dup Performed By: #### 5 0608 #### [facility] [address] [place] [address], [place] PLAT CNT 121 10*3/uL Low 150-400 [facility] Comment on above: Order Comment: No: D o not add to previous draw Dup Performed By: #### 5 0608 #### [facility] [address] [place] [address], [place] RBC (Bld) [#/Vol] 3.00 10*6/uL Low 4.20-5.70 The [facility] Comment on above: Order Comment: No: D o not add to previous draw Dup Performed By: #### 5 0608 #### [facility] [address] [place] [address], [place] WBC (Bld) [#/Vol] 10.60 10*3/uL Normal 4.00-10.60 [facility] Comment on above: Order Comment: No: D o not add to previous draw Dup Performed By: #### 5 0608 #### [facility] [address] [place] [address], [facility] Cardiovascular Lab Reporton 06-12-2019 Cardiovascular Lab Report [facility] Patient Name: [facility] A MR #: [id number] Department of Physician: Bryan Curtis, Medicine MMichelle Division of Service Date: 06/11/2019 Cardiology Birthdate: 1945 Adult Cardiovascular Room #: 3CD [id number] [facility] [address] [place] [id number] Cardiovascular Laboratory Report DONOR RECRUITER: Hardeep Grimes M.D. PROCEDURE: Pacemaker in the patient with complete AV block for minutes at a time requiring external pacing. Of note, the patient required a temporary wire and he was pacing externally. He was brought down to the lab and then temporary wire was put in then he was taken to the EP lab and a dual-chamber pacemaker was put in as well on an emergency basis. PROCEDURE IN DETAIL: The patient received sedation for the temporary pacer and though understood that he was going to get a permanent pacer consent was not truly available even in short time frame from the temporary wire to the pacemaker. He had received sedation, but he knew prior but the temp was emergency as the pauses were long and repeated. He and his are in total agreement for getting this placement. The patient was given antibiotics and then brought to the EP lab and the left upper chest was prepped and draped in the usual sterile fashion. A 1% lidocaine was used to locally anesthetize the left upper chest and the modified Seldinger technique was used to access the vein x2 and an incision was made with these access wires medial and caudal to the deltopectoral groove and blunt dissection was used down to the prepectoral fascia. Electrocautery was used to hemostasis. A 7-Danish SafeSheath was then advanced over the first guidewire. The guidewire and dilator were removed and SafeSheath was flushed. A pace sensing lead was then advanced under fluoroscopic guidance and positioned in the right ventricle with adequate sensing and pacing characteristics. Then the sheath was removed and a second SafeSheath was advanced under fluoroscopic guidance and the dilator wire removed and the SafeSheath was flushed. A pace sensing lead was then advanced under fluoroscopic guidance and the patient had a huge coughing spell, so I had the RV rechecked and sure enough the sensing decreased a little, but more importantly the pacing threshold had significantly increased thus I repositioned the RV lead. Unfortunately, the patient had no response and he I believe remained stable throughout the case with adequate sensing and pacing characteristics. Then, the RA lead was placed with adequate sensing and pacing characteristics and the sheath was removed and both leads were sutured to the prepectoral fascia and pectoralis muscle using 0 nonabsorbable suture. A pocket was fashioned. The pocket was irrigated with antibiotic solution. The leads were connected to the pulse generator. This was placed in the pocket and then the incision closed with a 2-0, 3-0, and 4-0 absorbable sutures. The top layer was done in a subcuticular technique. The patient tolerated the procedure well. DEVICE DATA: Medtronic battery/pulse generator, model #W1DI01, serial #[id number]. Leads/[employer]. RA model #5076-45, serial #[id number]. RV lead, model #85078-98, serial #[id number]. MEASURED DATA: RA lead, P-wage 1.4 mV, impedance 419 ohms and a threshold of 0.5 V at 0.4 milliseconds. RV lead has no sensing down to a date of 40 and even 30, impedance of 428 ohms and threshold of 1.1 V at 0.4 milliseconds. The patient required 6 mg of Versed and 125 mcg of fentanyl. He required 62 minutes of sedation. SUSAN PARAMETERS: DDDR, lower rate of 60, upper rate of 130. Paced AV interval equals 189 milliseconds. Sensed AV interval equals 150 milliseconds. CONCLUSION: Successful dual-chamber placement implant. Electronically Signed by: Brayn Curtis M.D. 07/09/2019 03:38 P Bryan Curtis M.D. Date Dict: 06/12/2019/06:41 Skip/Bryan Curtis M.D. Date Trans: 06/12/2019 07:42 Darren [id number] cc: Idirs Jose M.D. [address] [facility] [address] [facility] BLOOD 06-12-2019 Magnesium [Mass/Vol] 2.2 mg/dL Normal 1.9-2.7 The [facility] Comment on above: Order Comment: No: D o not add to previous draw Performed By: #### 8 [id number] #### [facility] [address] [facility] [address], [facility] POC GLUCOSE LABon 06-12-2019 Glucose [Mass/Vol] 219 mg/dL High 70-100 [facility] Comment on above: Performed By: #### 8 5499 #### [facility] [address] [facility] [place] [address], [place] Glucose [Mass/Vol] 56 mg/dL Low 70-100 [facility] Comment on above: Performed By: #### 3 0738 #### [facility] [address] [facility] [place] [address], [place] Glucose [Mass/Vol] 270 mg/dL High 70-100 [facility] Comment on above: Performed By: #### 8 5499 #### [facility] [address] [facility] [place] [address], [place] Glucose [Mass/Vol] 156 mg/dL High 70-100 [facility] Comment on above: Performed By: #### 3 0313 #### [facility] [address] [facility] [place] [address], [facility] PORTABLE CHEST 1 VIEWon 06-02 PORTABLE CHEST 1 VIEW [facility] Department of Radiology [address] [place] [address] Patient Name: JASON BARTHOLOMEW : 1945 Sex: M Age: Race: White Pt. Location: [id number] Patient Status: I Ordered Date: 06/12/2019 5:00:00 AM Completed Date: 06/12/2019 06:42 AM Requesting Provider: ANDRAE CÁRDENAS Attending Provider: JANETH HUTTON Report Copy To: Signs & Symptoms: CABG History: See Comments Comments: R/O Pneumothorax Exam: PORTABLE CHEST 1 VIEW PORTABLE CHEST 1 VIEW 06/12/2019 6:42 AM EST SIGNS AND SYMPTOMS: CABG TECHNOLOGIST COMMENTS: s/p CABG QUESTION FOR THE RADIOLOGIST: R/O Pneumothorax PROTOCOL: AP(PA) view was obtained. COMPARISON: May 12 0742 hours FINDINGS: June 12: Heart remains mildly prominent centrally by AP technique. Bipolar pacers in place. Used to drain and chest tubes remain. No pneumothorax. Differential lung densities due to rotational artifact. Right chest tube remains in place. Right midlung field infiltrate has probably completely cleared. No significant effusion. Right central line is in satisfactory position. IMPRESSION: Satisfactory postoperative appearance. Rotational artifact. No pneumothorax. Electronically signed by:Lazaro Capone. Transcribed by: [email or web address], User Resident: Electronically Signed by: LAZARO CAPONE @ 06/12/2019 08:09 AM Normal [facility] Comment on above: Order Comment: R/O P neumothorax US RENALon 06-12-2019 US RENAL [facility] Department of Radiology [address] [place] [id number] Patient Name: JASON BARTHOLOMEW : 1945 Sex: M Age: Race: White Pt. Location: [id number] Patient Status: I Ordered Date: 06/10/2019 3:25:00 PM Completed Date: 06/12/2019 09:37 AM Requesting Provider: BLAKE SALAZAR Attending Provider: JANETH HUTTON Report Copy To: Signs & Symptoms: Decreased Urine Output/Anuria History: See Comments Comments: R/O Hydronephrosis Exam: US RENAL US RENAL 06/12/2019 9:37 AM EST SIGNS AND SYMPTOMS: Decreased Urine Output/Anuria TECHNOLOGIST COMMENTS: decreased urine output, rule out hydronephrosis QUESTION FOR THE RADIOLOGIST: R/O Hydronephrosis TECHNIQUE: Limited retroperitoneal ultrasound. COMPARISON: none FINDINGS: The right kidney measures 11. 2 x 6.3 x 6.2 cm and the left kidney measures 12.0 x 6.3 x 6.3 cm. No cyst, mass or hydronephrosis was identified. IMPRESSION: Unremarkable renal ultrasound, no evidence of hydronephrosis. Electronically signed by:Gabby Bedolla. Transcribed by: [email or web address], User Resident: Electronically Signed by: GABBY BEDOLLA @ 06/12/2019 10:27 AM Normal [facility] Comment on above: Order Comment: R/O H ydronephrosis ARTERIAL BLOOD GAS WITH ICAo n 06-11-2019 BASE EXCESS 3 mmol/L Normal -2-3 [facility] Comment on above: Performed By: #### 8 4511 ####[facility] [place] [address], [facility] DELIVERY SYSTEMS BIPAP 06/07 Normal [facility] Comment on above: Performed By: #### 8 4511 ####[facility] [place] [address], [facility] FIO2 40 % Normal [facility] Comment on above: Performed By: #### 8 4511 ####[facility] [place] [address], [place] HCO3 (Bld) [Moles/Vol] 26 mmol/L Normal 21-28 Th e [facility] Comment on above: Performed By: #### 8 4511 ####[facility] [place] [address], [facility] IONIZED CALCIUM 1.20 mmol/L Normal 1.13-1.32 The [facility] Comment on above: Performed By: #### 8 4511 ####[facility] [place] [address], [place] Oxygen (Bld) [Partial pressure] 62 mm[Hg] Low 83-108 [facility] Comment on above: Performed By: #### 8 4511 ####[facility] [place] [address], [facility] Oxygen saturation in Blood 93.8 % Low 94.0-97.0 [facility] Comment on above: Performed By: #### 8 4511 ####[facility] [place] [address], [facility] PCO2 32 mmHg Low 35-45 [facility] Comment on above: Performed By: #### 8 4511 ####[facility] [place] [address], [place] pH (Bld) 7.52 [pH] High 7.35-7.45 [facility] Comment on above: Performed By: #### 8 4511 ####[facility] [place] [address], [place] BASIC METABOLIC PANELon 12-1 0-2019 Calcium [Mass/Vol] 9.1 mg/dL Normal 8.6-10.3 [facility] Comment on above: Order Comment: No: D o not add to previous draw Performed By: #### 0 0071 ####[facility] [facility] [place] [address], [facility] Chloride [Moles/Vol] 107 mmol/L Normal 98-107 [facility] Comment on above: Order Comment: No: D o not add to previous draw Performed By: #### 0 0071 ####[facility] [place] [address], [facility] CO2 [Moles/Vol] 28 mmol/L Normal 21-31 [facility] Comment on above: Order Comment: No: D o not add to previous draw Performed By: #### 0 0071 ####[facility] [facility] [place] [address], [facility] Creatinine [Mass/Vol] 2.17 mg/dL High 0.70-1.30 [facility] Comment on above: Order Comment: No: D o not add to previous draw Performed By: #### 0 0071 ####[facility] [facility] [place] [address], [facility] GFR/1.73 sq M predicted among blacks MDRD (S/P/Bld) [Vol rate/Area] 36 ml/min/1.73sq m Abnormal >60 [facility] Comment on above: Order Comment: No: D o not add to previous draw Result Comment: Calc ulation may not be valid for patients over 70 years Performed By: #### 0 0071 ####[facility] [facility] [place] [address], [facility] GFR/1.73 sq M predicted among non-blacks MDRD (S/P/Bld) [Vol rate/Area] 30 ml/min/1.73sq m Abnormal >60 [facility] Comment on above: Order Comment: No: D o not add to previous draw Result Comment: Calc ulation may not be valid for patients over 70 years Performed By: #### 0 0071 ####[facility] [place] [address], [place] Glucose [Mass/Vol] 121 mg/dL High 70-100 [facility] Comment on above: Order Comment: No: D o not add to previous draw Performed By: #### 0 0071 ####[facility] [place] [address], [place] Potassium [Moles/Vol] 3.5 mmol/L Normal 3.5-5.1 [facility] Comment on above: Order Comment: No: D o not add to previous draw Performed By: #### 0 0071 ####[facility] [place] [address], [place] Sodium [Moles/Vol] 143 mmol/L Normal 136-145 [facility] Comment on above: Order Comment: No: D o not add to previous draw Performed By: #### 0 0071 ####[facility] [place] [address], [place] Urea nitrogen [Mass/Vol] 66 mg/dL High 7-25 [facility] Comment on above: Order Comment: No: D o not add to previous draw Performed By: #### 0 0071 ####[facility] [place] [address], [place] Calcium [Mass/Vol] 9.2 mg/dL Normal 8.6-10.3 [facility] Comment on above: Order Comment: No: D o not add to previous draw Performed By: #### 8 [id number] #### [facility] [address] [place] [address], [place] Chloride [Moles/Vol] 105 mmol/L Normal 98-107 [facility] Comment on above: Order Comment: No: D o not add to previous draw Performed By: #### 8 5499 #### [facility] [address] [place] [address], [place] CO2 [Moles/Vol] 26 mmol/L Normal 21-31 [facility] Comment on above: Order Comment: No: D o not add to previous draw Performed By: #### 8 5499 #### [facility] [address] [place] [address], [place] Creatinine [Mass/Vol] 2.43 mg/dL High 0.70-1.30 [facility] Comment on above: Order Comment: No: D o not add to previous draw Performed By: #### 8 5499 #### [facility] [address] [place] [address], [place] GFR/1.73 sq M predicted among blacks MDRD (S/P/Bld) [Vol rate/Area] 32 ml/min/1.73sq m Abnormal >60 [facility] Comment on above: Order Comment: No: D o not add to previous draw Result Comment: Calc ulation may not be valid for patients over 70 years Performed By: #### 8 [id number] #### [facility] [address] [place] [address], [place] GFR/1.73 sq M predicted among non-blacks MDRD (S/P/Bld) [Vol rate/Area] 26 ml/min/1.73sq m Abnormal >60 [facility] Comment on above: Order Comment: No: D o not add to previous draw Result Comment: Calc ulation may not be valid for patients over 70 years Performed By: #### 8 5499 #### [facility] [address] [place] [address], [place] Glucose [Mass/Vol] 160 mg/dL High 70-100 [facility] Comment on above: Order Comment: No: D o not add to previous draw Performed By: #### 8 5499 #### [facility] [address] [place] [address], [place] Potassium [Moles/Vol] 3.6 mmol/L Normal 3.5-5.1 [facility] Comment on above: Order Comment: No: D o not add to previous draw Performed By: #### 8 5499 #### [facility] [address] [place] [address], [place] Sodium [Moles/Vol] 140 mmol/L Normal 136-145 [facility] Comment on above: Order Comment: No: D o not add to previous draw Performed By: #### 8 5499 #### [facility] [address] [place] [address], [place] Urea nitrogen [Mass/Vol] 68 mg/dL High 7-25 [facility] Comment on above: Order Comment: No: D o not add to previous draw Performed By: #### 8 [id number] #### [facility] [address] [place] [address], [facility] CBC COMPLETE BLOOD COUNTon 1 08-12-2018 Erythrocyte distribution width (RBC) [Ratio] 14.3 % Normal 11.5-15.0 [facility] Comment on above: Order Comment: No: D o not add to previous draw Performed By: #### 3 0313 #### [facility] [address] [place] [address], [place] Hematocrit (Bld) [Volume fraction] 25.1 % Low 39.0-50.0 [facility] Comment on above: Order Comment: No: D o not add to previous draw Performed By: #### 3 0313 #### [facility] [address] [place] [address], [place] Hemoglobin (Bld) [Mass/Vol] 8.3 g/dL Low 13.0-17.0 [facility] Comment on above: Order Comment: No: D o not add to previous draw Performed By: #### 3 0313 #### [facility] [address] [place] [address], [place] MCH (RBC) [Entitic mass] 29.9 pg Normal 27.0-33.0 [facility] Comment on above: Order Comment: No: D o not add to previous draw Performed By: #### 3 0313 #### [facility] [address] [place] [id number], [facility] MCHC (RBC) [Mass/Vol] 33.1 g/dL Normal 32.0-35.0 [facility] Comment on above: Order Comment: No: D o not add to previous draw Performed By: #### 3 0313 #### [facility] [address] [place] [id number], [facility] MCV (RBC) [Entitic vol] 90.3 fL Normal 82.0-98.0 [facility] Comment on above: Order Comment: No: D o not add to previous draw Performed By: #### 3 0313 #### [facility] [address] [place] [address], [facility] Nucleated RBC/100 WBC (Bld) [Ratio] 0 % Normal 0-0 [facility] Comment on above: Order Comment: No: D o not add to previous draw Performed By: #### 3 0313 #### [facility] [address] [place] [id number], [place] PLAT CNT 101 10*3/uL Low 150-400 [facility] Comment on above: Order Comment: No: D o not add to previous draw Performed By: #### 3 0313 #### [facility] [address] [place] [id number], [place] RBC (Bld) [#/Vol] 2.78 10*6/uL Low 4.20-5.70 [facility] Comment on above: Order Comment: No: D o not add to previous draw Performed By: #### 3 0313 #### [facility] [address] [place] [id number], [place] WBC (Bld) [#/Vol] 14.45 10*3/uL High 4.00-10.60 [facility] Comment on above: Order Comment: No: D o not add to previous draw Performed By: #### 3 0313 #### [facility] [address] [place] [address], [facility] Cardiovascular Lab Reporton 06-11-2019 Cardiovascular Lab Report [facility] Patient Name: Jason Bartholomew [facility] Skip MR #: [id number] Department of Physician: Gilberto Manning M.D. Division of Service Date: 06/11/2019 Cardiology Birthdate: 1945 Adult Cardiovascular Room #: [facility] [address] [place] [address] Cardiovascular Laboratory Report INDICATIONS: This is the gentleman who 4 days ago underwent aortic valve replacement. He has had intermittent complete heart block with asystolic. His sternal wires were noted earlier in the day to not be functioning intermittently and then were not functioning at all. He was being rescued paced from external pacing pad. He was brought emergently down to the veterinarian laboratory animal care. It was an emergent procedure. He was brought to the lab sterile prepped and draped. He had an existing right internal jugular vein Cordis, which was exchanged out and a balloon tipped pacemaker was placed into the right ventricular apex. Pacer function was confirmed. It was sutured in. He had been given vancomycin in preparation for permanent pacemaker today. Total fluoroscopy time was 1.24 minutes. ASSESSMENT: Emergent placement of a temporary pacemaker for complete heart block with no escape rhythm in a patient status post aortic valve replacement. The patient will go for temporary pacemaker. Electronically Signed by: Gilberto Manning M.D. 06/14/2019 01:03 P Gilberto Manning M.D. Date Dict: 06/11/2019/11:32 A/Gilberto Manning M.D. Date Trans: 06/11/2019 01:20 P/mmo [id number] cc: Idris Jose M.D. [address] [place] [id number] Normal [facility] Cardiovascular Lab Report [facility] Patient Name: Jason Bartholomew [facility] Skip MR #: [id number] Department of Physician: Gilberto Manning M.D. Division of Service Date: 06/11/2019 Cardiology Birthdate: 1945 Adult Cardiovascular Room #: [id number] [facility] [address] [facility]. [place] [address] Cardiovascular Laboratory Report INDICATIONS: This is the gentleman who 4 days ago underwent aortic valve replacement. He has had intermittent complete heart block with asystolic. His sternal wires were noted earlier in the day to not be functioning intermittently and then were not functioning at all. He was being rescued paced from external pacing pad. He was brought emergently down to the veterinarian laboratory animal care. It was an emergent procedure. He was brought to the lab sterile prepped and draped. He had an existing right internal jugular vein Cordis, which was exchanged out and a balloon tipped pacemaker was placed into the right ventricular apex. Pacer function was confirmed. It was sutured in. He had been given vancomycin in preparation for permanent pacemaker today. Total fluoroscopy time was 1.24 minutes. ASSESSMENT: Emergent placement of a temporary pacemaker for complete heart block with no escape rhythm in a patient status post aortic valve replacement. The patient will go for temporary pacemaker. Electronically Signed by: Gilberto Manning M.D. 06/14/2019 01:03 P Gilberto Manning M.D. Date Dict: 06/11/2019/11:32 Skip/Gilberto Manning M.D. Date Trans: 06/11/2019 01:20 P/mmo [id number] cc: Idris Jose M.D. [address] [place] [id number] Normal [facility] MAGNESIUM BLOODon 06-11-2019 Magnesium [Mass/Vol] 2.4 mg/dL Normal 1.9-2.7 [facility] Comment on above: Order Comment: No: D o not add to previous draw Performed By: #### 8 [id number] #### [facility] [address] [address], [facility] PHOSPHORUS BLOODon 9 Phosphate [Mass/Vol] 3.7 mg/dL Normal 2.5-5.0 [facility] Comment on above: Order Comment: No: D o not add to previous draw Performed By: #### 8 7002 #### [facility] [address] [facility] [place] [address], [facility] POC GLUCOSE LABon 06-11-2019 Glucose [Mass/Vol] 181 mg/dL High 70-100 [facility] Comment on above: Performed By: #### 8 5499 #### [facility] [address] [facility] [place] [address], [facility] Glucose [Mass/Vol] 121 mg/dL High 70-100 [facility] Comment on above: Performed By: #### 8 5499 ####[facility] [facility] [address], [facility] Glucose [Mass/Vol] 153 mg/dL High 70-100 [facility] Comment on above: Performed By: #### 8 5499 ####[facility] [facility] [address], [facility] PORTABLE CHEST 1 VIEWon 06-02 PORTABLE CHEST 1 VIEW [facility] Department of Radiology [address] [place] [id number] Patient Name: JASON BARTHOLOMEW : 1945 Sex: M Age: Race: White Pt. Location: [id number] Patient Status: I Ordered Date: 06/11/2019 6:30:00 AM Completed Date: 06/11/2019 07:57 AM Requesting Provider: YA LITTLE Attending Provider: JANETH HUTTON Report Copy To: Signs & Symptoms: Post OP History: See Comments Comments: R/O Pneumothorax, post-op AVR Exam: PORTABLE CHEST 1 VIEW PORTABLE CHEST 1 VIEW 06/11/2019 7:57 AM EST SIGNS AND SYMPTOMS: Post OP TECHNOLOGIST COMMENTS: Shortness of breath QUESTION FOR THE RADIOLOGIST: R/O Pneumothorax, post-op AVR PROTOCOL: AP(PA) view was obtained. COMPARISON: June 10, 2019 FINDINGS: Frontal view of the chest again revealed mild cardiomegaly. Prosthetic aortic valve is again visualized. Left lung and costophrenic recesses are clear. There is blunting of the right costophrenic angle and improvement in right upper lobe consolidation since prior study. No change in right chest tube and mediastinal drain since prior examination IMPRESSION: No residual pneumothorax and no change in right chest tube and mediastinal drain. Small right pleural effusion and progressive improvement in right upper lobe consolidation over the past few days Electronically signed by:Noreen Menendez. Transcribed by: [email or web address], User Resident: Electronically Signed by: NOREEN MENENDEZ @ 06/11/2019 08:37 AM Normal [facility] Comment on above: Order Comment: R/O P neumothorax, post-op AVR *BLOOD CULTUREon 06-10-2019 Bacteria identified Cx Nom (Bld) Clinical Report: (D) Specimen: BLOOD CULTURE Collected: 06/10/2019 14:21 Status: Final Last Updated: 06/16/2019 06:09 CULT RES (Final) No Growth Day 5 Normal [facility] Comment on above: Performed By: #### 3 0313 #### [facility] [address] [place] [address], [place] BASIC METABOLIC PANELon 12-0 Calcium [Mass/Vol] 9.4 mg/dL Normal 8.6-10.3 [facility] Comment on above: Order Comment: No: D o not add to previous draw Performed By: #### 8 [id number] #### [facility] [address] [place] [address], [place] Chloride [Moles/Vol] 101 mmol/L Normal 98-107 [facility] Comment on above: Order Comment: No: D o not add to previous draw Performed By: #### 8 5499 #### [facility] [address] [place] [address], [place] CO2 [Moles/Vol] 25 mmol/L Normal 21-31 [facility] Comment on above: Order Comment: No: D o not add to previous draw Performed By: #### 8 5499 #### [facility] [address] [place] [address], [place] Creatinine [Mass/Vol] 2.71 mg/dL High 0.70-1.30 [facility] Comment on above: Order Comment: No: D o not add to previous draw Performed By: #### 8 5499 #### [facility] [address] [place] [address], [place] GFR/1.73 sq M predicted among blacks MDRD (S/P/Bld) [Vol rate/Area] 28 ml/min/1.73sq m Abnormal >60 [facility] Comment on above: Order Comment: No: D o not add to previous draw Result Comment: Calc ulation may not be valid for patients over 70 years Performed By: #### 8 5499 #### [facility] [address] [place] [address], [place] GFR/1.73 sq M predicted among non-blacks MDRD (S/P/Bld) [Vol rate/Area] 23 ml/min/1.73sq m Abnormal >60 [facility] Comment on above: Order Comment: No: D o not add to previous draw Result Comment: Calc ulation may not be valid for patients over 70 years Performed By: #### 8 5499 #### [facility] [address] [place] [address], [place] Glucose [Mass/Vol] 246 mg/dL High 70-100 [facility] Comment on above: Order Comment: No: D o not add to previous draw Performed By: #### 8 5499 #### [facility] [address] [place] [address], [place] Potassium [Moles/Vol] 4.3 mmol/L Normal 3.5-5.1 [facility] Comment on above: Order Comment: No: D o not add to previous draw Performed By: #### 8 5499 #### [facility] [address] [place] [address], [place] Sodium [Moles/Vol] 139 mmol/L Normal 136-145 [facility] Comment on above: Order Comment: No: D o not add to previous draw Performed By: #### 8 5499 #### [facility] [address] [place] [address], [place] Urea nitrogen [Mass/Vol] 59 mg/dL High 7-25 [facility] Comment on above: Order Comment: No: D o not add to previous draw Performed By: #### 8 5499 #### [facility] [address] [place] [address], [place] Calcium [Mass/Vol] 9.6 mg/dL Normal 8.6-10.3 [facility] Comment on above: Performed By: #### 8 5499 #### [facility] [address] [place] [address], [place] Chloride [Moles/Vol] 104 mmol/L Normal 98-107 [facility] Comment on above: Performed By: #### 8 5499 #### [facility] [address] [place] [address], [place] CO2 [Moles/Vol] 25 mmol/L Normal 21-31 [facility] Comment on above: Performed By: #### 8 5499 #### [facility] [address] [place] [address], [place] Creatinine [Mass/Vol] 2.12 mg/dL High 0.70-1.30 [facility] Comment on above: Performed By: #### 8 5499 #### [facility] [address] [place] [address], [place] GFR/1.73 sq M predicted among blacks MDRD (S/P/Bld) [Vol rate/Area] 37 ml/min/1.73sq m Abnormal >60 [facility] Comment on above: Result Comment: Calc ulation may not be valid for patients over 70 years Performed By: #### 8 [id number] #### [facility] [address] [place] [address], [place] GFR/1.73 sq M predicted among non-blacks MDRD (S/P/Bld) [Vol rate/Area] 31 ml/min/1.73sq m Abnormal >60 [facility] Comment on above: Result Comment: Calc ulation may not be valid for patients over 70 years Performed By: #### 8 [id number] #### [facility] [address] [place] [address], [place] Glucose [Mass/Vol] 170 mg/dL High 70-100 [facility] Comment on above: Performed By: #### 8 5499 #### [facility] [address] [place] [address], [facility] Potassium [Moles/Vol] 3.3 mmol/L Low 3.5-5.1 [facility] Comment on above: Performed By: #### 8 5499 #### [facility] [address] [place] [address], [place] Sodium [Moles/Vol] 141 mmol/L Normal 136-145 [facility] Comment on above: Performed By: #### 8 5499 #### [facility] [address] [place] [address], [facility] Urea nitrogen [Mass/Vol] 52 mg/dL High 7-25 [facility] Comment on above: Performed By: #### 8 [id number] #### [facility] [address] [place] [address], [facility] CBC COMPLETE BLOOD COUNTon 08-11-2018 Erythrocyte distribution width (RBC) [Ratio] 14.6 % Normal 11.5-15.0 [facility] Comment on above: Order Comment: No: D o not add to previous draw Performed By: #### 3 0313 #### [facility] [address] [place] [address], [facility] Hematocrit (Bld) [Volume fraction] 27.8 % Low 39.0-50.0 [facility] Comment on above: Order Comment: No: D o not add to previous draw Performed By: #### 3 0313 #### [facility] [address] [place] [address], [facility] Hemoglobin (Bld) [Mass/Vol] 9.4 g/dL Low 13.0-17.0 [facility] Comment on above: Order Comment: No: D o not add to previous draw Performed By: #### 3 0313 #### [facility] [address] [place] [address], [place] IMM PLATELET FRAC 5.2 % Normal 0.8-6.3 [facility] Comment on above: Order Comment: No: D o not add to previous draw Performed By: #### 3 0313 #### [facility] [address] [place] [address], [facility] MCH (RBC) [Entitic mass] 29.9 pg Normal 27.0-33.0 [facility] Comment on above: Order Comment: No: D o not add to previous draw Performed By: #### 3 0313 #### [facility] [address] [facility] [address], [facility] MCHC (RBC) [Mass/Vol] 33.8 g/dL Normal 32.0-35.0 [facility] Comment on above: Order Comment: No: D o not add to previous draw Performed By: #### 3 0313 #### [facility] [address] [place] [address], [facility] MCV (RBC) [Entitic vol] 88.5 fL Normal 82.0-98.0 [facility] Comment on above: Order Comment: No: D o not add to previous draw Performed By: #### 3 0313 #### [facility] [address] Nucleated RBC/100 WBC (Bld) [Ratio] 0 % Normal 0-0 [facility] Comment on above: Order Comment: No: D o not add to previous draw Performed By: #### 3 0313 #### [facility] [address] [place] [address], [facility] PLAT CNT 96 10*3/uL Low 150-400 [facility] Comment on above: Order Comment: No: D o not add to previous draw Performed By: #### 3 0313 #### [facility] [address] [place] [address], [facility] RBC (Bld) [#/Vol] 3.14 10*6/uL Low 4.20-5.70 [facility] Comment on above: Order Comment: No: D o not add to previous draw Performed By: #### 3 0313 #### [facility] [address] [place] [address], [facility] WBC (Bld) [#/Vol] 17.03 10*3/uL High 4.00-10.60 [facility] Comment on above: Order Comment: No: D o not add to previous draw Performed By: #### 3 0313 #### [facility] [address] [place] [address], [facility] CREATININE URINE RANDOMon Creatinine [Mass/Vol] 77.0 mg/dL Normal [facility] Comment on above: Order Comment: No: D o not add to previous draw Result Comment: Ther e are no established reference values for random urine specimens Performed By: #### 8 [id number] #### [facility] [address] [place] [address], [facility] MAGNESIUM BLOODon 06-10-2019 Magnesium [Mass/Vol] 2.6 mg/dL Normal 1.9-2.7 [facility] Comment on above: Performed By: #### 8 [id number] #### [facility] [address] [facility] [address], [facility] Magnesium [Mass/Vol] 1.8 mg/dL Low 1.9-2.7 [facility] Comment on above: Order Comment: No: D o not add to previous draw Performed By: #### 8 [id number] #### [facility] [address] [place] [address], [facility] OSMOLALITY BLOODon 9 Osmolality [Osmolality] 308 mOsm/kg High 285-305 [facility] Comment on above: Performed By: #### 8 [id number] #### [facility] [address] [place] [id number], [facility] PHOSPHORUS BLOODon 9 Phosphate [Mass/Vol] 2.9 mg/dL Normal 2.5-5.0 [facility] Comment on above: Order Comment: No: D o not add to previous draw Performed By: #### 8 [id number] #### [facility] [address] [facility] [place] [address], [facility] POC GLUCOSE LABon 06-10-2019 Glucose [Mass/Vol] 153 mg/dL High 70-100 The [facility] Comment on above: Performed By: #### 8 [id number] #### [facility] [address] [facility] [place] [address], [place] Glucose [Mass/Vol] 186 mg/dL High 70-100 [facility] Comment on above: Performed By: #### 8 [id number] #### [facility] [address] [facility] [place] [address], [place] Glucose [Mass/Vol] 256 mg/dL High 70-100 [facility] Comment on above: Performed By: #### 8 [id number] ####[facility] [facility] [address], [facility] Glucose [Mass/Vol] 178 mg/dL High 70-100 [facility] Comment on above: Performed By: #### 3 0738 #### [facility] [address] [facility] [place] [address], [facility] PORTABLE CHEST 1 VIEWon PORTABLE CHEST 1 VIEW [facility] Department of Radiology [address] [place] [id number] Patient Name: JASON BARTHOLOMEW : 1945 Sex: M Age: Race: White Pt. 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 COMPARISON: June 09 FINDINGS: The heart remains mildly enlarged. Round infiltrate noted right midlung field. There is mild interstitial prominence. No gross effusion or additional signs of airspace disease. IMPRESSION: Diminishing right midlung field infiltrate. Chronic cardiomegaly. Electronically signed by:Lazaro Capone. Transcribed by: [email or web address], User Resident: Electronically Signed by: LAZARO CAPONE @ 06/10/2019 07:38 AM Normal [facility] Comment on above: Order Comment: R/O P neumothorax SODIUM URINE RANDOMon 2018 Sodium (U) [Moles/Vol] 65 mmol/L Normal Th e [facility] Comment on above: Order Comment: No: D o not add to previous draw Result Comment: Ther e are no established reference values for random urine specimens Performed By: #### 8 [id number] #### [facility] [address] [place] [address], [facility] APTTon 06-09-2019 aPTT Coag (Bld) [Time] 31.4 s Normal 25.0-35.0 Th e [facility] Comment on above: Order Comment: No: D o not add to previous draw Dup Result Comment: ALL RESULTS MUST BE INTERPRETED WITH RESPECT TO BLOOD DRAWING ARTIFACT OR DILUTION ERROR OF ANTICOAGULANT AT THE TIME OF SAMPLING. THE APTT SHOULD NOT BE USED TO MONITOR UNFRACTIONATED HEPARIN THERAPY, THIS LABORATORY NO LONGER HAS AN ESTABLISHED THERAPEUTIC RANGE BASED ON THE APTT. IT IS RECOMMENDED THAT THE [facility] - HEPARIN ASSAY (ANTI-XA ACTIVITY) BE USED FOR THIS PURPOSE. Performed By: #### 5 0608 #### [facility] [address] aPTT Coag (Bld) [Time] 31.1 s Normal 25.0-35.0 Th e [facility] Comment on above: Order Comment: No: D o not add to previous draw Result Comment: ALL RESULTS MUST BE INTERPRETED WITH RESPECT TO BLOOD DRAWING ARTIFACT OR DILUTION ERROR OF ANTICOAGULANT AT THE TIME OF SAMPLING. THE APTT SHOULD NOT BE USED TO MONITOR UNFRACTIONATED HEPARIN THERAPY, THIS LABORATORY NO LONGER HAS AN ESTABLISHED THERAPEUTIC RANGE BASED ON THE APTT. IT IS RECOMMENDED THAT THE [facility] - HEPARIN ASSAY (ANTI-XA ACTIVITY) BE USED FOR THIS PURPOSE. Performed By: #### 8 [id number] #### [facility] [address] ARTERIAL BLOOD GAS WITH ICAo n 06-09-2019 BASE EXCESS -4 mmol/L Low -2-3 [facility] Comment on above: Performed By: #### 8 4511 ####[facility] [facility].[address] [employer] BiPAP Normal [facility] Comment on above: Performed By: #### 8 4511 ####[facility] [facility] [place] [address], [facility] FIO2 100 % Normal [facility] Comment on above: Performed By: #### 8 4511 ####[facility] [facility] [place] [address], [facility] HCO3 (Bld) [Moles/Vol] 19 mmol/L Low 21-28 Th e [facility] Comment on above: Performed By: #### 8 4511 ####[facility] [place] [address], [facility] IONIZED CALCIUM 1.24 mmol/L Normal 1.13-1.32 The [facility] Comment on above: Performed By: #### 8 4511 ####[facility] [place] [address], [facility] Oxygen (Bld) [Partial pressure] 179 mm[Hg] Critically high 83-108 [facility] Comment on above: Performed By: #### 8 4511 ####[facility] [place] [address], [facility] Oxygen saturation in Blood 96.9 % Normal 94.0-97.0 [facility] Comment on above: Performed By: #### 8 4511 ####[facility] [facility] [address], [facility] PCO2 29 mmHg Low 35-45 [facility] Comment on above: Performed By: #### 8 4511 ####[facility] [facility] [address], [facility] PEEP 6.0 CMH20 Normal [facility] Comment on above: Performed By: #### 8 4511 ####[facility] [address], [facility] pH (Bld) 7.43 [pH] Normal 7.35-7.45 [facility] Comment on above: Performed By: #### 8 4511 ####[facility] [facility] [address], [facility] PRESSURE SUPPORT 12 Normal [facility] Comment on above: Performed By: #### 8 4511 ####[facility] [facility] [address], [facility] BASE EXCESS -5 mmol/L Low -2-3 The [facility] Comment on above: Order Comment: RESUL TS CHECKED AND CALLED. ACCURATELY READ BACK BY Savanna TRUONG RN-SAMPLE IS MIXED Performed By: #### 8 4511 ####[facility] [employer] NASAL CANNULA Normal The [facility] Comment on above: Order Comment: RESUL TS CHECKED AND CALLED. ACCURATELY READ BACK BY Savanna TRUONG RN-SAMPLE IS MIXED Performed By: #### 8 4511 ####[facility] HCO3 (Bld) [Moles/Vol] 18 mmol/L Low 21-28 Th e [facility] Comment on above: Order Comment: RESUL TS CHECKED AND CALLED. ACCURATELY READ BACK BY Savanna TRUONG RN-SAMPLE IS MIXED Performed By: #### 8 4511 ####[facility] IONIZED CALCIUM 1.23 mmol/L Normal 1.13-1.32 [facility] Comment on above: Order Comment: RESUL TS CHECKED AND CALLED. ACCURATELY READ BACK BY Savanna TRUONG RN-SAMPLE IS MIXED Performed By: #### 8 4511 ####[facility] [facility] [place] [address], [facility] LPM 6.0 LPM Normal [facility] Comment on above: Order Comment: RESUL TS CHECKED AND CALLED. ACCURATELY READ BACK BY Savanna TRUONG RN-SAMPLE IS MIXED Performed By: #### 8 4511 ####[facility] Oxygen (Bld) [Partial pressure] 40 mm[Hg] Critically low 83-108 [facility] Comment on above: Order Comment: RESUL TS CHECKED AND CALLED. ACCURATELY READ BACK BY Savanna TRUONG RN-SAMPLE IS MIXED Performed By: #### 8 4511 ####[facility] [place] [address], [facility] Oxygen saturation in Blood 80.5 % Critically low 94.0-97.0 [facility] Comment on above: Order Comment: RESUL TS CHECKED AND CALLED. ACCURATELY READ BACK BY Savanna TRUONG, RN-SAMPLE IS MIXED Performed By: #### 8 4511 ####[facility] [place] [address], [facility] PCO2 27 mmHg Low 35-45 [facility] Comment on above: Order Comment: RESUL TS CHECKED AND CALLED. ACCURATELY READ BACK BY Savanna TRUONG, RN-SAMPLE IS MIXED Performed By: #### 8 4511 ####[facility] [place] [address], [facility] pH (Bld) 7.43 [pH] Normal 7.35-7.45 [facility] Comment on above: Order Comment: RESUL TS CHECKED AND CALLED. ACCURATELY READ BACK BY Savanna TRUONG, RN-SAMPLE IS MIXED Performed By: #### 8 4511 ####[facility] [place] [address], [facility] BASIC METABOLIC PANELon 12-0 Calcium [Mass/Vol] 9.1 mg/dL Normal 8.6-10.3 [facility] Comment on above: Order Comment: No: D o not add to previous draw Performed By: #### 8 7002 #### [facility] [address] [place] [address], [place] Chloride [Moles/Vol] 106 mmol/L Normal 98-107 [facility] Comment on above: Order Comment: No: D o not add to previous draw Performed By: #### 8 7002 #### [facility] [address] [place] [address], [place] CO2 [Moles/Vol] 19 mmol/L Low 21-31 The [facility] Comment on above: Order Comment: No: D o not add to previous draw Performed By: #### 8 7002 #### [facility] [address] [place] [address], [place] Creatinine [Mass/Vol] 2.33 mg/dL High 0.70-1.30 [facility] Comment on above: Order Comment: No: D o not add to previous draw Performed By: #### 8 7002 #### [facility] [address] [place] [address], [place] GFR/1.73 sq M predicted among blacks MDRD (S/P/Bld) [Vol rate/Area] 33 ml/min/1.73sq m Abnormal >60 The [facility] Comment on above: Order Comment: No: D o not add to previous draw Result Comment: Calc ulation may not be valid for patients over 70 years Performed By: #### 8 7002 #### [facility] [address] [place] [address], [facility] GFR/1.73 sq M predicted among non-blacks MDRD (S/P/Bld) [Vol rate/Area] 27 ml/min/1.73sq m Abnormal >60 [facility] Comment on above: Order Comment: No: D o not add to previous draw Result Comment: Calc ulation may not be valid for patients over 70 years Performed By: #### 8 7002 #### [facility] [address] [place] [address], [place] Glucose [Mass/Vol] 215 mg/dL High 70-100 [facility] Comment on above: Order Comment: No: D o not add to previous draw Performed By: #### 8 7002 #### [facility] [address] [place] [address], [place] Potassium [Moles/Vol] 4.1 mmol/L Normal 3.5-5.1 [facility] Comment on above: Order Comment: No: D o not add to previous draw Performed By: #### 8 7002 #### [facility] [address] [place] [address], [place] Sodium [Moles/Vol] 137 mmol/L Normal 136-145 [facility] Comment on above: Order Comment: No: D o not add to previous draw Performed By: #### 8 7002 #### [facility] [address] [place] [address], [place] Urea nitrogen [Mass/Vol] 49 mg/dL High 7-25 [facility] Comment on above: Order Comment: No: D o not add to previous draw Performed By: #### 8 7002 #### [facility] [address] [place] [address], [place] Calcium [Mass/Vol] 9.2 mg/dL Normal 8.6-10.3 [facility] Comment on above: Order Comment: No: D o not add to previous draw Performed By: #### 8 7002 #### [facility] [address] [place] [address], [place] Chloride [Moles/Vol] 108 mmol/L High 98-107 [facility] Comment on above: Order Comment: No: D o not add to previous draw Performed By: #### 8 7002 #### [facility] [address] [place] [address], [place] CO2 [Moles/Vol] 24 mmol/L Normal 21-31 [facility] Comment on above: Order Comment: No: D o not add to previous draw Performed By: #### 8 7002 #### [facility] [address] [place] [address], [place] Creatinine [Mass/Vol] 1.71 mg/dL High 0.70-1.30 [facility] Comment on above: Order Comment: No: D o not add to previous draw Performed By: #### 8 7002 #### [facility] [address] [place] [address], [place] GFR/1.73 sq M predicted among blacks MDRD (S/P/Bld) [Vol rate/Area] 47 ml/min/1.73sq m Abnormal >60 [facility] Comment on above: Order Comment: No: D o not add to previous draw Result Comment: Calc ulation may not be valid for patients over 70 years Performed By: #### 8 7002 #### [facility] [address] [place] [address], [place] GFR/1.73 sq M predicted among non-blacks MDRD (S/P/Bld) [Vol rate/Area] 39 ml/min/1.73sq m Abnormal >60 [facility] Comment on above: Order Comment: No: D o not add to previous draw Result Comment: Calc ulation may not be valid for patients over 70 years Performed By: #### 8 7002 #### [facility] [address] [place] [address], [place] Glucose [Mass/Vol] 89 mg/dL Normal 70-100 [facility] Comment on above: Order Comment: No: D o not add to previous draw Performed By: #### 8 7002 #### [facility] [address] [place] [address], [place] Potassium [Moles/Vol] 3.8 mmol/L Normal 3.5-5.1 [facility] Comment on above: Order Comment: No: D o not add to previous draw Performed By: #### 8 7002 #### [facility] [address] [place] [address], [place] Sodium [Moles/Vol] 140 mmol/L Normal 136-145 [facility] Comment on above: Order Comment: No: D o not add to previous draw Performed By: #### 8 7002 #### [facility] [address] [place] [address], [place] Urea nitrogen [Mass/Vol] 36 mg/dL High 7-25 [facility] Comment on above: Order Comment: No: D o not add to previous draw Performed By: #### 8 7002 #### [facility] [address] [place] [address], [place] CBC COMPLETE BLOOD COUNTon 1 08-10-2018 Erythrocyte distribution width (RBC) [Ratio] 14.9 % Normal 11.5-15.0 [facility] Comment on above: Order Comment: No: D o not add to previous draw Performed By: #### 3 0313 #### [facility] [address] [place] [address], [facility] Hematocrit (Bld) [Volume fraction] 26.4 % Low 39.0-50.0 [facility] Comment on above: Order Comment: No: D o not add to previous draw Performed By: #### 3 0313 #### [facility] [address] [place] [address], [facility] Hemoglobin (Bld) [Mass/Vol] 9.0 g/dL Low 13.0-17.0 [facility] Comment on above: Order Comment: No: D o not add to previous draw Performed By: #### 3 0313 #### [facility] [address] [place] [address], [facility] IMM PLATELET FRAC 5.0 % Normal 0.8-6.3 The [facility] Comment on above: Order Comment: No: D o not add to previous draw Performed By: #### 3 0313 #### [facility] [address] [place] [address], [facility] MCH (RBC) [Entitic mass] 30.2 pg Normal 27.0-33.0 [facility] Comment on above: Order Comment: No: D o not add to previous draw Performed By: #### 3 0313 #### [facility] [address] [place] [address], [facility] MCHC (RBC) [Mass/Vol] 34.1 g/dL Normal 32.0-35.0 [facility] Comment on above: Order Comment: No: D o not add to previous draw Performed By: #### 3 0313 #### [facility] [address] [place] [address], [facility] MCV (RBC) [Entitic vol] 88.6 fL Normal 82.0-98.0 T he [facility] Comment on above: Order Comment: No: D o not add to previous draw Performed By: #### 3 0313 #### [facility] [address] [place] [id number], [facility] Nucleated RBC/100 WBC (Bld) [Ratio] 0 % Normal 0-0 [facility] Comment on above: Order Comment: No: D o not add to previous draw Performed By: #### 3 0313 #### [facility] [address] [place] [address], [place] PLAT CNT 81 10*3/uL Low 150-400 [facility] Comment on above: Order Comment: No: D o not add to previous draw Result Comment: Prev iously Resulted 81 Performed By: #### 3 0313 #### [facility] [address] [place] [address], [facility] RBC (Bld) [#/Vol] 2.98 10*6/uL Low 4.20-5.70 The [facility] Comment on above: Order Comment: No: D o not add to previous draw Performed By: #### 3 0313 #### [facility] [address] [place] [id number], [place] WBC (Bld) [#/Vol] 10.77 10*3/uL High 4.00-10.60 The [facility] Comment on above: Order Comment: No: D o not add to previous draw Performed By: #### 3 0313 #### [facility] [address] [place] [address], [facility] Erythrocyte distribution width (RBC) [Ratio] 14.7 % Normal 11.5-15.0 [facility] Comment on above: Order Comment: No: D o not add to previous draw Performed By: #### 3 3 #### [facility] [address] [place] Hematocrit (Bld) [Volume fraction] 23.6 % Low 39.0-50.0 [facility] Comment on above: Order Comment: No: D o not add to previous draw Performed By: #### 3 0313 #### [facility] [address] [place] [address], [facility] Hemoglobin (Bld) [Mass/Vol] 7.9 g/dL Low 13.0-17.0 [facility] Comment on above: Order Comment: No: D o not add to previous draw Performed By: #### 3 0313 #### [facility] [address] [place] [address], [facility] IMM PLATELET FRAC 5.4 % Normal 0.8-6.3 The [facility] Comment on above: Order Comment: No: D o not add to previous draw Performed By: #### 3 0313 #### [facility] [address] [place] [address], [facility] MCH (RBC) [Entitic mass] 29.5 pg Normal 27.0-33.0 [facility] Comment on above: Order Comment: No: D o not add to previous draw Performed By: #### 3 0313 #### [facility] [address] [place] [id number], [facility] MCHC (RBC) [Mass/Vol] 33.5 g/dL Normal 32.0-35.0 [facility] Comment on above: Order Comment: No: D o not add to previous draw Performed By: #### 3 0313 #### [facility] [address] [place] [address], [facility] MCV (RBC) [Entitic vol] 88.1 fL Normal 82.0-98.0 T is[facility] Comment on above: Order Comment: No: D o not add to previous draw Performed By: #### 3 0313 #### [facility] [address] [place] [id number] Nucleated RBC/100 WBC (Bld) [Ratio] 0 % Normal 0-0 [facility] Comment on above: Order Comment: No: D o not add to previous draw Performed By: #### 3 0313 #### [facility] [address] [place] [address], [facility] PLAT CNT 81 10*3/uL Low 150-400 The [facility] Comment on above: Order Comment: No: D o not add to previous draw Performed By: #### 3 0313 #### [facility] [address] [place] [id number], [facility] RBC (Bld) [#/Vol] 2.68 10*6/uL Low 4.20-5.70 The [facility] Comment on above: Order Comment: No: D o not add to previous draw Performed By: #### 3 0313 #### [facility] [address] [place] [id number], [facility] WBC (Bld) [#/Vol] 10.66 10*3/uL High 4.00-10.60 [facility] Comment on above: Order Comment: No: D o not add to previous draw Performed By: #### 3 0313 #### [facility] [address] [place] [address], [facility] MAGNESIUM BLOODon 06-09-2019 Magnesium [Mass/Vol] 2.0 mg/dL Normal 1.9-2.7 [facility] Comment on above: Order Comment: No: D o not add to previous draw Performed By: #### 8 7002 #### [facility] [address] [place] [address], [facility] PHOSPHORUS BLOODon 9 Phosphate [Mass/Vol] 3.5 mg/dL Normal 2.5-5.0 [facility] Comment on above: Order Comment: No: D o not add to previous draw Performed By: #### 8 7002 #### [facility] [address] [place] [address], [place] POC GLUCOSE LABon 06-09-2019 Glucose [Mass/Vol] 235 mg/dL High 70-100 [facility] Comment on above: Performed By: #### 8 5499 #### [facility] [address] [place] [address], [place] Glucose [Mass/Vol] 201 mg/dL High 70-100 [facility] Comment on above: Performed By: #### 3 0738 #### [facility] [address] [place] [address], [place] Glucose [Mass/Vol] 180 mg/dL High 70-100 [facility] Comment on above: Performed By: #### 8 5499 #### [facility] [address] [place] [address], [place] Glucose [Mass/Vol] 160 mg/dL High 70-100 [facility] Comment on above: Performed By: #### 8 [id number] #### [facility] [address] [place] [address], [place] Glucose [Mass/Vol] 92 mg/dL Normal 70-100 [facility] Comment on above: Performed By: #### 8 [id number] #### [facility] [address] [place] [address], [place] Glucose [Mass/Vol] 115 mg/dL High 70-100 [facility] Comment on above: Performed By: #### 8 [id number] #### [facility] [address] [place] [address], [place] Glucose [Mass/Vol] 130 mg/dL High 70-100 [facility] Comment on above: Performed By: #### 3 0738 #### [facility] [address] [place] [address], [place] Glucose [Mass/Vol] 210 mg/dL High 70-100 [facility] Comment on above: Performed By: #### 8 [id number] #### [facility] [address] [facility]. [address] Glucose [Mass/Vol] 240 mg/dL High 70-100 The [facility] Comment on above: Performed By: #### 3 0738 #### [facility] [address] [facility]. [address] PORTABLE CHEST 1 VIEWon PORTABLE CHEST 1 VIEW [facility] Department of Radiology [address] [place] [id number] Patient Name: JASON BARTHOLOMEW : 1945 Sex: M Age: Race: White Pt. Location: [id number] Patient Status: I Ordered Date: 06/09/2019 3:25:00 PM Completed Date: 06/09/2019 03:40 PM Requesting Provider: JANETH HUTTON Attending Provider: JANETH HUTTON Report Copy To: Signs & Symptoms: Shortness of Breath History: See Comments Comments: R/O Pneumothorax Exam: PORTABLE CHEST 1 VIEW PORTABLE CHEST 1 VIEW 06/09/2019 3:40 PM EST SIGNS AND SYMPTOMS: Shortness of Breath TECHNOLOGIST COMMENTS: Shortness of Breath post cabg done on expiration for pneumo QUESTION FOR THE RADIOLOGIST: R/O Pneumothorax PROTOCOL: AP(PA) view was obtained. COMPARISON: June 09 0835 hours FINDINGS: June 09 1530 hours: The right apical pneumothorax is resolved. The heart is enlarged. No gross effusion. There is consolidation right midlung which is slightly more prominent. No additional signs of CHF. Right chest tube remains in position. IMPRESSION: Resolution of pneumothorax. Chronic cardiomegaly. Worsening infiltrate right midlung. Electronically signed by:Lazaro Capone. Transcribed by: [email or web address], User Resident: Electronically Signed by: LAZARO CAPONE @ 06/10/2019 08:11 AM Normal The [facility] Comment on above: Order Comment: R/O P neumothorax PORTABLE CHEST 1 VIEW [facility] Department of Radiology [address] [place] [id number] Patient Name: JASON BARTHOLOMEW : 1945 Sex: M Age: Race: White Pt. Location: [address] [place] [address] Patient Status: I Ordered Date: 06/09/2019 8:15:00 AM Completed Date: 06/09/2019 09:01 AM Requesting Provider: YA LITTLE Attending Provider: JANETH HUTTON Report Copy To: Signs & Symptoms: Post CABG History: See Comments Comments: R/O Pneumothorax Exam: PORTABLE CHEST 1 VIEW PORTABLE CHEST 1 VIEW 06/09/2019 9:01 AM EST SIGNS AND SYMPTOMS: Post CABG TECHNOLOGIST COMMENTS: R/O Pneumothorax per ordering physician. QUESTION FOR THE RADIOLOGIST: R/O Pneumothorax PROTOCOL: AP(PA) view was obtained. COMPARISON: Chest radiograph June 08, 2019 FINDINGS: Cardiomediastinal silhouette remains unchanged. Interval removal of [place]-Teresa catheter. Mediastinal drain present. Aortic valve prosthesis. Right-sided chest tube remains with small right apical pneumothorax measuring 6 mm from the pleura. No significant change in right-sided loculated pleural effusion or right-sided upper lobe airspace disease. Left lung is clear. No subdiaphragmatic free air. IMPRESSION: 1. Small right apical pneumothorax. 2. Interval removal of [place]-Teresa catheter. Remaining tubes are stable. 3. No significant change in right-sided pleural parenchymal process. Findings were discussed with FADIA Thomas at 9:15 AM on 06/09/2019. Approved by:Misbah Jo on 06/09/2019 9:16 AM EST. I, Noreen Menendez, have reviewed the images and report and concur with these findings. Electronically signed by:Noreen Menendez. Transcribed by: [email or web address], User Resident: MISBAH JO Electronically Signed by: NOREEN MENENDEZ @ 06/10/2019 07:11 AM I personally read this/these film(s) with this resident Normal [facility] Comment on above: Order Comment: R/O P neumothorax PROTHROMBIN TIMEon 9 INR Coag (PPP) [Relative time] 1.26 {INR} High 0.91-1.16 [facility] Comment on above: Order Comment: No: D o not add to previous draw Dup Result Comment: ACCC P RECOMMENDED INR FOR WARFARIN THERAPY ------- CONDITION INR PROPHYLAXIS OF VENOUS THROMBOSIS 2-3 (HIGH-RISK SURGERY) TREATMENT OF VENOUS THROMBOSIS 2-3 TREATMENT OF PULMONARY EMBOLISM 2-3 PREVENTION OF SYSTEMIC EMBOLISM: 2-3 ACUTE MYOCARDIAL INFARCTION TISSUE HEART VALVES VALVULAR HEART DISEASE ATRIAL FIBRILLATION RECURRENT SYSTEMIC EMBOLISM MECHANICAL HEART VALVE 2.5-3.5 FROM: ORAL ANTICOAGULANTS. MECHANISM OF ACTION, CLINICAL EFFECTIVENESS, AND OPTIMAL THERAPEUTIC RANGE. CHEST 1995;108:231S-246S. Performed By: #### 5 [id number] #### [facility] [address] [facility] [address], [facility] PT Coag (PPP) [Time] 15.9 s High 12.3-14.8 [facility] Comment on above: Order Comment: No: D o not add to previous draw Dup Result Comment: ALL RESULTS MUST BE INTERPRETED WITH RESPECT TO BLOOD DRAWING ARTIFACT OR DILUTION ERROR OF ANTICOAGULANT AT THE TIME OF SAMPLING. Performed By: #### 5 [id number] #### [facility] [address] [facility] [address], [facility] INR Coag (PPP) [Relative time] 1.30 {INR} High 0.91-1.16 [facility] Comment on above: Order Comment: No: D o not add to previous draw Result Comment: ACCC P RECOMMENDED INR FOR WARFARIN THERAPY ------- CONDITION INR PROPHYLAXIS OF VENOUS THROMBOSIS 2-3 (HIGH-RISK SURGERY) TREATMENT OF VENOUS THROMBOSIS 2-3 TREATMENT OF PULMONARY EMBOLISM 2-3 PREVENTION OF SYSTEMIC EMBOLISM: 2-3 ACUTE MYOCARDIAL INFARCTION TISSUE HEART VALVES VALVULAR HEART DISEASE ATRIAL FIBRILLATION RECURRENT SYSTEMIC EMBOLISM MECHANICAL HEART VALVE 2.5-3.5 FROM: ORAL ANTICOAGULANTS. MECHANISM OF ACTION, CLINICAL EFFECTIVENESS, AND OPTIMAL THERAPEUTIC RANGE. CHEST 1995;108:231S-246S. Performed By: #### 8 [id number] #### [facility] [address] [place] [address], [facility] PT Coag (PPP) [Time] 16.3 s High 12.3-14.8 [facility] Comment on above: Order Comment: No: D o not add to previous draw Result Comment: ALL RESULTS MUST BE INTERPRETED WITH RESPECT TO BLOOD DRAWING ARTIFACT OR DILUTION ERROR OF ANTICOAGULANT AT THE TIME OF SAMPLING. Performed By: #### 8 [id number] #### [facility] [address] [facility]. [address] APTTon 06-08-2019 aPTT Coag (Bld) [Time] 31.6 s Normal 25.0-35.0 [facility] Comment on above: Order Comment: No: D o not add to previous draw Result Comment: ALL RESULTS MUST BE INTERPRETED WITH RESPECT TO BLOOD DRAWING ARTIFACT OR DILUTION ERROR OF ANTICOAGULANT AT THE TIME OF SAMPLING. THE APTT SHOULD NOT BE USED TO MONITOR UNFRACTIONATED HEPARIN THERAPY, THIS LABORATORY NO LONGER HAS AN ESTABLISHED THERAPEUTIC RANGE BASED ON THE APTT. IT IS RECOMMENDED THAT THE [facility] - HEPARIN ASSAY (ANTI-XA ACTIVITY) BE USED FOR THIS PURPOSE. Performed By: #### 8 [id number] #### [facility] [address] [facility] [address], [facility] aPTT Coag (Bld) [Time] 32.6 s Normal 25.0-35.0 [facility] Comment on above: Order Comment: No: D o not add to previous draw Dup Result Comment: ALL RESULTS MUST BE INTERPRETED WITH RESPECT TO BLOOD DRAWING ARTIFACT OR DILUTION ERROR OF ANTICOAGULANT AT THE TIME OF SAMPLING. THE APTT SHOULD NOT BE USED TO MONITOR UNFRACTIONATED HEPARIN THERAPY, THIS LABORATORY NO LONGER HAS AN ESTABLISHED THERAPEUTIC RANGE BASED ON THE APTT. IT IS RECOMMENDED THAT THE [facility]FH - HEPARIN ASSAY (ANTI-XA ACTIVITY) BE USED FOR THIS PURPOSE. Performed By: #### 5 [id number] #### [facility] [address] ARTERIAL BLOOD GAS WITH ICAo n 06-08-2019 BASE EXCESS -1 mmol/L Normal -2-3 [facility] Comment on above: Performed By: #### 8 [id number] ####[facility] [place] [address], [facility] [employer] NASAL CANNULA Normal [facility] Comment on above: Performed By: #### 8 [id number] ####[facility] [place] [address], [facility] HCO3 (Bld) [Moles/Vol] 24 mmol/L Normal 21-28 Th e [facility] Comment on above: Performed By: #### 8 [id number] ####[facility] [place] [address], [facility] IONIZED CALCIUM 1.37 mmol/L High 1.13-1.32 [facility] Comment on above: Performed By: #### 8 [id number] ####[facility] [place] [address], [facility] LPM 2.0 LPM Normal [facility] Comment on above: Performed By: #### 8 [id number] ####[facility] [place] [address], [facility] Oxygen (Bld) [Partial pressure] 93 mm[Hg] Normal 83-108 [facility] Comment on above: Performed By: #### 8 [id number] ####[facility] [place] [address], [facility] Oxygen saturation in Blood 96.6 % Normal 94.0-97.0 [facility] Comment on above: Performed By: #### 8 [id number] ####[facility] [place] [address], [place] PCO2 39 mmHg Normal 35-45 [facility] Comment on above: Performed By: #### 8 [id number] ####[facility] [place] [address], [place] pH (Bld) 7.40 [pH] Normal 7.35-7.45 [facility] Comment on above: Performed By: #### 8 [id number] ####[facility] [place] [address], [facility] BASIC METABOLIC PANELon 12-0 Calcium [Mass/Vol] 9.6 mg/dL Normal 8.6-10.3 [facility] Comment on above: Order Comment: post op day 1No: Do not add to previous draw Performed By: #### 8 [id number] #### [facility] [address] [place] [address], [place] Chloride [Moles/Vol] 107 mmol/L Normal 98-107 [facility] Comment on above: Order Comment: post op day 1No: Do not add to previous draw Performed By: #### 8 [id number] #### [facility] [address] [place] [address], [place] CO2 [Moles/Vol] 24 mmol/L Normal 21-31 [facility] Comment on above: Order Comment: post op day 1No: Do not add to previous draw Performed By: #### 8 [id number] #### [facility] [address] [place] [address], [place] Creatinine [Mass/Vol] 1.55 mg/dL High 0.70-1.30 [facility] Comment on above: Order Comment: post op day 1No: Do not add to previous draw Performed By: #### 8 [id number] #### [facility] [address] [place] [address], [place] GFR/1.73 sq M predicted among blacks MDRD (S/P/Bld) [Vol rate/Area] 53 ml/min/1.73sq m Abnormal >60 [facility] Comment on above: Order Comment: post op day 1No: Do not add to previous draw Result Comment: Calc ulation may not be valid for patients over 70 years Performed By: #### 8 [id number] #### [facility] [address] [place] [address], [place] GFR/1.73 sq M predicted among non-blacks MDRD (S/P/Bld) [Vol rate/Area] 44 ml/min/1.73sq m Abnormal >60 [facility] Comment on above: Order Comment: post op day 1No: Do not add to previous draw Result Comment: Calc ulation may not be valid for patients over 70 years Performed By: #### 8 [id number] #### [facility] [address] [place] [address], [place] Glucose [Mass/Vol] 103 mg/dL High 70-100 [facility] Comment on above: Order Comment: post op day 1No: Do not add to previous draw Performed By: #### 8 [id number] #### [facility] [address] [place] [address], [place] Potassium [Moles/Vol] 4.1 mmol/L Normal 3.5-5.1 [facility] Comment on above: Order Comment: post op day 1No: Do not add to previous draw Performed By: #### 8 [id number] #### [facility] [address] [place] [address], [place] Sodium [Moles/Vol] 138 mmol/L Normal 136-145 [facility] Comment on above: Order Comment: post op day 1No: Do not add to previous draw Performed By: #### 8 [id number] #### [facility] [address] [place] [address], [place] Urea nitrogen [Mass/Vol] 29 mg/dL High 7-25 [facility] Comment on above: Order Comment: post op day 1No: Do not add to previous draw Performed By: #### 8 [id number] #### [facility] [address] [place] [address], [place] CBC COMPLETE BLOOD COUNTon 1 08-09-2018 Erythrocyte distribution width (RBC) [Ratio] 13.9 % Normal 11.5-15.0 The [facility] [place] [facility] Comment on above: Order Comment: No: D o not add to previous draw Dup Performed By: #### 5 [id number] #### [facility] [address] [place] [address], [facility] Hematocrit (Bld) [Volume fraction] 18.6 % Low 39.0-50.0 [facility] Comment on above: Order Comment: No: D o not add to previous draw Dup Performed By: #### 5 [id number] #### [facility] [address] [place] [address], [facility] Hemoglobin (Bld) [Mass/Vol] 6.4 g/dL Low 13.0-17.0 [facility] Comment on above: Order Comment: No: D o not add to previous draw Dup Performed By: #### 5 0608 #### [facility] [address] [facility] [address], [facility] IMM PLATELET FRAC 3.7 % Normal 0.8-6.3 The [facility] Comment on above: Order Comment: No: D o not add to previous draw Dup Performed By: #### 5 [id number] #### [facility] [address] [facility] [address], [facility] MCH (RBC) [Entitic mass] 29.6 pg Normal 27.0-33.0 [facility] Comment on above: Order Comment: No: D o not add to previous draw Dup Performed By: #### 5 [id number] #### [facility] [address] [facility] [address], [facility] MCHC (RBC) [Mass/Vol] 34.4 g/dL Normal 32.0-35.0 [facility] Comment on above: Order Comment: No: D o not add to previous draw Dup Performed By: #### 5 [id number] #### [facility] [address] [place] [address], [facility] MCV (RBC) [Entitic vol] 86.1 fL Normal 82.0-98.0 Salomon mason [facility] Comment on above: Order Comment: No: D o not add to previous draw Dup Performed By: #### 5 [id number] #### [facility] [address] [place] [id number], [facility] Nucleated RBC/100 WBC (Bld) [Ratio] 0 % Normal 0-0 [facility] Comment on above: Order Comment: No: D o not add to previous draw Dup Performed By: #### 5 [id number] #### [facility] [address] [place] [address], [facility] PLAT CNT 103 10*3/uL Low 150-400 The [facility] Comment on above: Order Comment: No: D o not add to previous draw Dup Performed By: #### 5 0608 #### [facility] [address] [place] [address], [facility] RBC (Bld) [#/Vol] 2.16 10*6/uL Low 4.20-5.70 The [facility] Comment on above: Order Comment: No: D o not add to previous draw Dup Performed By: #### 5 0608 #### [facility] [address] [facility] [address], [facility] WBC (Bld) [#/Vol] 9.48 10*3/uL Normal 4.00-10.60 The [facility] Comment on above: Order Comment: No: D o not add to previous draw Dup Performed By: #### 5 [id number] #### [facility] [address] [place] [address], [facility] COOXIMETRYon 06-08-2019 COHB 3 % Normal [facility] Comment on above: Performed By: #### 7 0207 ####[facility] [place] [address], [facility] METHB 1 % Normal [facility] Comment on above: Performed By: #### 7 7 ####[facility] [place] [address], [facility] Oxygen saturation in Blood 67.9 % Normal 65.0-75.0 [facility] Comment on above: Performed By: #### 7 0207 ####[facility] [place] [address], [facility] THB 6.6 g/dL Normal [facility] Comment on above: Performed By: #### 7 0207 ####[facility] [place] [address], [facility] HEMOGLOBINon 06-08-2019 Hemoglobin (Bld) [Mass/Vol] 7.5 g/dL Low 13.0-17.0 [facility] Comment on above: Order Comment: No: D o not add to previous draw Dup Performed By: #### 5 0608 #### [facility] [address] [place] [address], [facility] Hemoglobin (Bld) [Mass/Vol] 8.3 g/dL Low 13.0-17.0 [facility] Comment on above: Order Comment: No: D o not add to previous draw Performed By: #### 3 0313 #### [facility] [address] [place] [address], [facility] LACTATE BLOODon 06-08-2019 Lactate [Moles/Vol] 0.8 mmol/L Normal 0.5-2.2 The [facility] Comment on above: Order Comment: post op day 1No: Do not add to previous draw Performed By: #### 8 [id number] #### [facility] [address] [place] [address], [facility] MAGNESIUM BLOODon 06-08-2019 Magnesium [Mass/Vol] 2.2 mg/dL Normal 1.9-2.7 The [facility] Comment on above: Order Comment: post op day 1No: Do not add to previous draw Performed By: #### 8 [id number] #### [facility] [address] [place], [place] [id number] [place] [address] Operative Reporton 9 Operative Report MR#: [id number] I [facility] Pt. Name: Jason Bartholomew Room #: [id number] Discharge Date: Birthdate: 1945 OPERATIVE REPORT DATE OF SURGERY: 06/07/2019 SURGEON: Janeth Hutton MD PREOPERATIVE DIAGNOSIS: Postoperative bleeding status post minimally invasive aortic valve replacement. POSTOPERATIVE DIAGNOSIS: Postoperative bleeding status post minimally invasive aortic valve replacement. OPERATION: Exploration of right medial thoracotomy wound and washout of the chest, correction of coagulopathy. DONOR RECRUITER: Mattie. ANESTHESIA: General with endotracheal intubation. ANESTHESIOLOGIST: Dr. Dobbins. INDICATIONS: This is a 73-year-old male who has just undergone minimally invasive aortic valve replacement. Postoperatively, he had 1 L output in 4 hours and was taken back to the operating room for exploration and control of bleeding. PROCEDURE IN DETAIL: The patient was brought to the operating room, and prepped and draped in the routine fashion. Previous incision was opened. At this time, the lab called back with repeat PTT and was found to have a PTT of 73 with significant heparin content in the blood. Chest was re-explored and large amount of blood and clot blood was removed from the pleural cavity as well as from the surgical field involving the proximal aorta and the right atrial region. Clot was removed and the wound was copiously irrigated with saline, which was noted from the suture line. However, the coagulopathy seemed to be the big part. FFP was given. Protamine was given and a 4-0 Prolene pledgeted stitch was placed. There was no more bleeding noted after we corrected all these parameters. The Oneil drains were left and the chest was closed with #2 pericostal, #1 rectal fascial, 2-0 Vicryl, 4-0 Monocryl stitches. The patient was taken back to the ICU in a stable condition. TACHO was done, which showed good ventricular function and no paravalvular leaks. Electronically Signed by: Janeth Hutton MD 06/11/2019 01:27 P Janeth Hutton MD Date Dict: 06/07/2019/07:23 P/Janeth Hutton MD Date Trans: 06/08/2019 08:25 Skip/bert [id number] cc: Idris Jose M.D. [address] [facility] [address] [place] [facility] Operative Report MR#: [id number] I [facility] Pt. Name: Jason Bartholomew Room #: [id number] Discharge Date: Birthdate: 1945 OPERATIVE REPORT DATE OF SURGERY: 06/07/2019 SURGEON: Janeth Hutton MD PREOPERATIVE DIAGNOSIS: Severe aortic stenosis. POSTOPERATIVE DIAGNOSIS: Severe aortic stenosis. OPERATION: Minimally invasive aortic valve replacement with 21 mm Inspiris pericardial valve via right mini-thoracotomy. ASSISTANTS: Loc and Deb. ANESTHESIA: General with endotracheal intubation. ANESTHESIOLOGIST: Dr. Dobbins. CARDIOPULMONARY BYPASS TIME: 129 minutes. CROSS-CLAMP TIME: 80 minutes. INDICATIONS: This is a 73-year-old male with worsening symptomatic severe aortic stenosis. He was taken to the operating room for the above procedure. He also had chronic kidney disease with creatinine of 1.9. PROCEDURE IN DETAIL: The patient was brought to the operating room, and prepped and draped in the routine fashion. Surgery was started in the right groin, where a 2-inch incision was made and femoral artery and vein were dissected out. Next, an incision was made in the right chest in 2nd intercostal space in the parasternal location. The muscles were divided and down through the 2nd intercostal space, the internal mammary artery and vein were clipped and divided. At this time, the patient was heparinized and femoral artery and vein were cannulated in the usual fashion with TACHO guidance. Cardiopulmonary bypass was initiated and ventilation was stopped at this point. Chest was entered and the pericardium was opened longitudinally. The traction stitches were placed and a superior pulmonary vein vent was placed. Transthoracic Vince clamp was applied. Cold blood antegrade cardioplegia was given directly in the aortic root, total of 1 L after which the oblique aortotomy was performed and direct coronary ostial cardioplegia delivery was performed through the left as well as the right coronary arteries. The valve was a little difficult to expose. However, we were able to expose all the regions adequately with multiple maneuvers. It was a trileaflet valve with severe calcification in the anulus and the leaflets were divided and sent for pathology. The anulus was carefully debrided and decalcified. A #21 Zhang Inspiris valve was chosen to be the right size. This was placed in a supra-annular position using two Ethibond pledgeted stitches using cor-knots. The valve seated quite well and the LV vent was not functioning very well, therefore we used direct LV vent through the surgical site. Aortotomy was closed in 2 layers using 4-0 Prolene pledgeted stitches and the patient was placed in a Trendelenburg position. The cross-clamp was released. Aortic root vent was turned on through a 14-gauge Angiocath. LV vent was removed and superior pulmonary vein entry site was tied down. Ventricular pacing wires were placed and atrial pacing wires were also placed. The patient soon had to be cardioverted and then regained his own sinus rhythm. After adequate de-airing had been done, the aortic root vent was moved and the aortotomy was secured with 4-0 Prolene pledgeted stitches. Ventilation was begun and the patient was weaned off cardiopulmonary bypass. A TACHO was done showed good ventricular function. No paravalvular leak. Excellent aortic valve function. After completion of protamine administration, arterial cannula was removed. Venous cannula was removed. Hemostasis was secured. Two Oneil drains were placed, one in the pericardium, one in the pericardiophrenic angle. The 3rd costal cartilage which had been divided was sutured back with the 0 Ethibond stitch and #1 pericostal stitch was placed and the fascia was closed with #1 Vicryl, 2-0 Vicryl, 4-0 Monocryl stitch was used to close the skin. The leg wound was also closed in layers using 0 Vicryl, 2-0 Vicryl, 4-0 Monocryl stitches. The patient tolerated the procedure well, was taken to the ICU in stable condition. Electronically Signed by: Janeth Hutton MD 06/11/2019 01:27 P Janeth Hutton MD Date Dict: 06/07/2019/01:52 P/Janeth Hutton MD Date Trans: 06/08/2019 01:08 Skip/bert [id number] cc: Idris Jose M.D. [address] [facility] [address] Normal The [facility] POC GLUCOSE LABon 06-08-2019 Glucose [Mass/Vol] 104 mg/dL High 70-100 [facility] Comment on above: Performed By: #### 3 0738 #### [facility] [address] [place] [address], [place] Glucose [Mass/Vol] 79 mg/dL Normal 70-100 [facility] Comment on above: Performed By: #### 8 [id number] #### [facility] [address] [place] [address], [place] Glucose [Mass/Vol] 105 mg/dL High 70-100 [facility] Comment on above: Performed By: #### 3 0738 #### [facility] [address] [place] [address], [place] Glucose [Mass/Vol] 112 mg/dL High 70-100 [facility] Comment on above: Performed By: #### 3 0313 #### [facility] [address] [place] [address], [place] Glucose [Mass/Vol] 134 mg/dL High 70-100 [facility] Comment on above: Performed By: #### 3 0313 #### [facility] [address] [place] [address], [place] Glucose [Mass/Vol] 99 mg/dL Normal 70-100 [facility] Comment on above: Performed By: #### 3 0738 #### [facility] [address] [place] [address], [place] Glucose [Mass/Vol] 97 mg/dL Normal 70-100 The [facility] Comment on above: Performed By: #### 3 0738 #### [facility] [address] [place] [address], [place] Glucose [Mass/Vol] 117 mg/dL High 70-100 The [facility] Comment on above: Performed By: #### 8 5499 #### [facility] [address] [place] [address], [place] Glucose [Mass/Vol] 96 mg/dL Normal 70-100 The [facility] Comment on above: Performed By: #### 8 5499 #### [facility] [address] [place] [address], [place] Glucose [Mass/Vol] 105 mg/dL High 70-100 The [facility] Comment on above: Performed By: #### 8 5499 #### [facility] [address] [place] [address], [facility] PORTABLE CHEST 1 VIEWon 12-0 PORTABLE CHEST 1 VIEW [facility] Department of Radiology [address] [place], [place] [id number] Patient Name: JASON BARTHOLOMEW : 1945 Sex: M Age: Race: White Pt. Location: [id number] Patient Status: I Ordered Date: 06/08/2019 7:00:00 AM Completed Date: 06/08/2019 06:07 AM Requesting Provider: YA LITTLE Attending Provider: JANETH HUTTON Report Copy To: Signs & Symptoms: Post CABG History: See Comments Comments: Check Chest Tube Position Exam: PORTABLE CHEST 1 VIEW PORTABLE CHEST 1 VIEW 06/08/2019 6:07 AM EST SIGNS AND SYMPTOMS: Post CABG TECHNOLOGIST COMMENTS: s/p CABG, chest tubes QUESTION FOR THE RADIOLOGIST: Check Chest Tube Position PROTOCOL: AP(PA) view was obtained. COMPARISON: June 07, 2019 FINDINGS: Interval removal of the ET tube, enteric tube since prior study. Right side chest the tube, right-sided [place]-Teresa catheter again noted, and mediastinal drain are similar to prior study. The right side loculated pleural effusion, unchanged. Worsening of airspace disease in the right lung especially the upper lobe. Left lung is clear. Stable cardiovascular silhouette. IMPRESSION: 1. Satisfactory position of the supportive lines and tubes with interval removal of the ET tube and enteric tube. 2. Worsening of the right lung airspace disease. Approved by:Nicholas Casey on 06/08/2019 6:17 AM EST. I, Noreen Menendez, have reviewed the images and report and concur with these findings. Electronically signed by:Noreen Menendez. Transcribed by: [email or web address], User Resident: NICHOLAS CASEY Electronically Signed by: NOREEN MENENDEZ @ 06/08/2019 03:39 PM I personally read this/these film(s) with this resident Normal The [facility] Comment on above: Order Comment: Check Chest Tube Position PROTHROMBIN TIMEon 9 INR Coag (PPP) [Relative time] 1.30 {INR} High 0.91-1.16 The [facility] Comment on above: Order Comment: post op day 1No: Do not add to previous draw Result Comment: ACCC P RECOMMENDED INR FOR WARFARIN THERAPY ------- CONDITION INR PROPHYLAXIS OF VENOUS THROMBOSIS 2-3 (HIGH-RISK SURGERY) TREATMENT OF VENOUS THROMBOSIS 2-3 TREATMENT OF PULMONARY EMBOLISM 2-3 PREVENTION OF SYSTEMIC EMBOLISM: 2-3 ACUTE MYOCARDIAL INFARCTION TISSUE HEART VALVES VALVULAR HEART DISEASE ATRIAL FIBRILLATION RECURRENT SYSTEMIC EMBOLISM MECHANICAL HEART VALVE 2.5-3.5 FROM: ORAL ANTICOAGULANTS. MECHANISM OF ACTION, CLINICAL EFFECTIVENESS, AND OPTIMAL THERAPEUTIC RANGE. CHEST 1995;108:231S-246S. Performed By: #### 8 [id number] #### [facility] [address] [facility]. [address] PT Coag (PPP) [Time] 16.3 s High 12.3-14.8 [facility] Comment on above: Order Comment: post op day 1No: Do not add to previous draw Result Comment: ALL RESULTS MUST BE INTERPRETED WITH RESPECT TO BLOOD DRAWING ARTIFACT OR DILUTION ERROR OF ANTICOAGULANT AT THE TIME OF SAMPLING. Performed By: #### 8 [id number] #### [facility] [address] [facility]. [address] RBC'S 2 UNITSon 06-08-2019 CROSSMATCH INTERP 1 COMP Normal [facility] Comment on above: Performed By: #### 8 6002 ####[facility] CROSSMATCH INTERP 2 COMP Normal [facility] Comment on above: Performed By: #### 8 6002 ####[facility] PRODUCT CODE 1 E0336 Normal The [facility] Comment on above: Performed By: #### 8 6002 ####[facility] [facility] [place] [address] PRODUCT CODE 2 E0336 Normal The [facility] Comment on above: Performed By: #### 8 6002 ####[facility] [place] [address], [facility] PRODUCT STATUS 1 RE Normal The [facility] Comment on above: Result Comment: Resu lt changed by IF on 06/10/2019 07:04. The previous value was XM. Performed By: #### 8 6002 ####[facility] [facility] [place] [address], [facility] PRODUCT STATUS 2 PT Normal The [facility] Comment on above: Result Comment: Resu lt changed by IF on 06/08/2019 23:37. The previous value was XM. Result changed by IF on 06/09/2019 02:00. The previous value was IS. Performed By: #### 8 6002 ####[facility] [facility] [place] [address], [facility] UNIT ABO 1 A Normal [facility] Comment on above: Performed By: #### 8 6002 ####[facility] [facility] [place] [address], [facility] UNIT ABO 2 A Normal [facility] Comment on above: Performed By: #### 8 6002 ####[facility] [place] [address], [facility] UNIT ID 1 [id number] Normal The [facility] Comment on above: Performed By: #### 8 6002 ####[facility] [place] [address], [facility] UNIT ID 2 [id number] Normal The [facility] Comment on above: Performed By: #### 8 6002 ####[facility] [place] [address], [place] UNIT RH 1 Positive Normal The [facility] Comment on above: Performed By: #### 8 6002 ####[facility] [place] [address], [place] UNIT RH 2 Positive Normal [facility] Comment on above: Performed By: #### 8 6002 ####[facility] [place] [address], [place] ACTIVATED CLOTTING TIMEon ACTIVATED CLOTTING TIME 121 sec Normal 82-152 T he [facility] Comment on above: Performed By: #### 8 [id number] #### [facility] [address] [place] [address], [place] ACTIVATED CLOTTING TIME 104 sec Normal 82-152 T he [facility] Comment on above: Performed By: #### 8 [id number] #### [facility] [address] [place] [address], [place] ACTIVATED CLOTTING TIME 443 sec High 82-152 T he [facility] Comment on above: Performed By: #### 8 5499 #### [facility] [address] [place] [address], [place] ACTIVATED CLOTTING TIME 467 sec High 82-152 T he [facility] Comment on above: Performed By: #### 8 [id number] #### [facility] [address] [place] [address], [place] ACTIVATED CLOTTING TIME 380 sec High 82-152 T he [facility] Comment on above: Performed By: #### 8 [id number] #### [facility] [address] [place] [address], [place] ACTIVATED CLOTTING TIME 443 sec High 82-152 T he [facility] Comment on above: Performed By: #### 8 [id number] #### [facility] [address] [place] [address], [place] ACTIVATED CLOTTING TIME 479 sec High 82-152 T he [facility] Comment on above: Performed By: #### 8 [id number] #### [facility] [address] [place] [address], [facility] ACTIVATED CLOTTING TIME 121 sec Normal 82-152 T he [facility] Comment on above: Performed By: #### 8 [id number] #### [facility] [address] [place] [address], [facility] APTTon 06-07-2019 aPTT Coag (Bld) [Time] 63.3 s High 25.0-35.0 Th e [facility] Comment on above: Result Comment: ALL RESULTS MUST BE INTERPRETED WITH RESPECT TO BLOOD DRAWING ARTIFACT OR DILUTION ERROR OF ANTICOAGULANT AT THE TIME OF SAMPLING. THE APTT SHOULD NOT BE USED TO MONITOR UNFRACTIONATED HEPARIN THERAPY, THIS LABORATORY NO LONGER HAS AN ESTABLISHED THERAPEUTIC RANGE BASED ON THE APTT. IT IS RECOMMENDED THAT THE [facility] - HEPARIN ASSAY (ANTI-XA ACTIVITY) BE USED FOR THIS PURPOSE. RESULTS CHECKED AND CALLED. ACCURATELY READ BACK BY Kylah Truong RN @ 19:52 Performed By: #### 8 [id number] #### [facility] [address] [place] [address], [facility] aPTT Coag (Bld) [Time] 72.3 s Critically high 25.0-35. 0 The [facility] Comment on above: Order Comment: No: D o not add to previous draw Result Comment: ALL RESULTS MUST BE INTERPRETED WITH RESPECT TO BLOOD DRAWING ARTIFACT OR DILUTION ERROR OF ANTICOAGULANT AT THE TIME OF SAMPLING. THE APTT SHOULD NOT BE USED TO MONITOR UNFRACTIONATED HEPARIN THERAPY, THIS LABORATORY NO LONGER HAS AN ESTABLISHED THERAPEUTIC RANGE BASED ON THE APTT. IT IS RECOMMENDED THAT THE [facility] - HEPARIN ASSAY (ANTI-XA ACTIVITY) BE USED FOR THIS PURPOSE. CLINICAL SIGNIFICANCE OF THE PTT RESULT IS QUESTIONABLE IN THE PRESENCE OF HEPARIN. RESULTS CHECKED AND CALLED. ACCURATELY READ BACK BY WALI MCKINNON RN @ 18:39 Performed By: #### 8 [id number] #### [facility] [address] [place] [address], [facility] aPTT Coag (Bld) [Time] 32.6 s Normal 25.0-35.0 Th e [facility] Comment on above: Result Comment: ALL RESULTS MUST BE INTERPRETED WITH RESPECT TO BLOOD DRAWING ARTIFACT OR DILUTION ERROR OF ANTICOAGULANT AT THE TIME OF SAMPLING. THE APTT SHOULD NOT BE USED TO MONITOR UNFRACTIONATED HEPARIN THERAPY, THIS LABORATORY NO LONGER HAS AN ESTABLISHED THERAPEUTIC RANGE BASED ON THE APTT. IT IS RECOMMENDED THAT THE [facility] - HEPARIN ASSAY (ANTI-XA ACTIVITY) BE USED FOR THIS PURPOSE. Performed By: #### 8 [id number] #### [facility] [address] ARTERIAL BLOOD GAS WITH ICAo n 06-07-2019 BASE EXCESS -3 mmol/L Low -2-3 [facility] Comment on above: Performed By: #### 8 4511 ####[facility] [facility].[address] DELIVERY SYSTEMS VENTILATOR Normal [facility] Comment on above: Performed By: #### 8 4511 ####[facility] [facility] FIO2 40 % Normal [facility] Comment on above: Performed By: #### 8 4511 ####[facility] [facility].[address] HCO3 (Bld) [Moles/Vol] 22 mmol/L Normal 21-28 Th e [facility] Comment on above: Performed By: #### 8 4511 ####[facility] IONIZED CALCIUM 1.38 mmol/L High 1.13-1.32 The [facility] Comment on above: Performed By: #### 8 4511 ####[facility] [facility] [place] [address], [facility] MIN VOLUME 14.5 Normal [facility] Comment on above: Performed By: #### 8 4511 ####[facility] [place] [address], [facility] MODALITY Positive Normal The [facility] Comment on above: Performed By: #### 8 4511 ####[facility] [place] [address], [facility] Oxygen (Bld) [Partial pressure] 144 mm[Hg] Critically high 83-108 The [facility] Comment on above: Performed By: #### 8 4511 ####[facility] [facility] [place] [id number] [place] [address] Oxygen saturation in Blood 96.7 % Normal 94.0-97.0 The [facility] Comment on above: Performed By: #### 8 4511 ####[facility] [facility] [place] [address], [facility] PCO2 35 mmHg Normal 35-45 The [facility] Comment on above: Performed By: #### 8 4511 ####[facility] [facility] [place] [address], [facility] PEEP 8.0 CMH20 Normal The [facility] Comment on above: Performed By: #### 8 4511 ####[facility] [facility] [address], [facility] pH (Bld) 7.40 [pH] Normal 7.35-7.45 The [facility] Comment on above: Performed By: #### 8 4511 ####[facility] [facility] [address], [facility] PRESSURE SUPPORT 8 Normal The [facility] Comment on above: Performed By: #### 8 4511 ####[facility] [facility] [address], [facility] BASE EXCESS -2 mmol/L Normal -2-3 The [facility] Comment on above: Performed By: #### 8 4511 ####[facility] [facility] [address], [facility] DELIVERY SYSTEMS VENT Normal The [facility] Comment on above: Performed By: #### 8 4511 ####[facility] [place] [address], [facility] FIO2 40 % Normal The [facility] Comment on above: Performed By: #### 8 4511 ####[facility] [place] [address], [facility] HCO3 (Bld) [Moles/Vol] 23 mmol/L Normal 21-28 Th e [facility] Comment on above: Performed By: #### 8 4511 ####[facility] [place] [address], [facility] IONIZED CALCIUM 1.48 mmol/L High 1.13-1.32 The [facility] Comment on above: Performed By: #### 8 4511 ####[facility] [place] [address], [facility] MIN VOLUME 6.0 Normal [facility] Comment on above: Performed By: #### 8 4511 ####[facility] [place] [address], [facility] MODALITY SIMV Normal [facility] Comment on above: Performed By: #### 8 4511 ####[facility] [place] [address], [facility] Oxygen (Bld) [Partial pressure] 105 mm[Hg] Normal 83-108 The [facility] Comment on above: Performed By: #### 8 4511 ####[facility] [place] [address], [facility] Oxygen saturation in Blood 96.7 % Normal 94.0-97.0 The [facility] Comment on above: Performed By: #### 8 4511 ####[facility] [place] [address], [facility] PCO2 42 mmHg Normal 35-45 The [facility] Comment on above: Performed By: #### 8 4511 ####[facility] [place] [address], [facility] PEEP 8.0 CMH20 Normal [facility] Comment on above: Performed By: #### 8 4511 ####[facility] [place] [address], [facility] pH (Bld) 7.35 [pH] Normal 7.35-7.45 The [facility] Comment on above: Performed By: #### 8 4511 ####[facility] [place] [address], [facility] PRESSURE SUPPORT 5 Normal The [facility] Comment on above: Performed By: #### 8 4511 ####[facility] [place] [address], [facility] TIDAL VOLUME (VT) CC 500 cc Normal [facility] Comment on above: Performed By: #### 8 4511 ####[facility] [place] [address], [facility] BASE EXCESS 0 mmol/L Normal -2-3 [facility] Comment on above: Performed By: #### 8 [id number] #### [facility] [address] [place] [address], [place] DELIVERY SYSTEMS VENT Normal [facility] Comment on above: Performed By: #### 8 [id number] #### [facility] [address] [place] [address], [place] FIO2 40 % Normal [facility] Comment on above: Performed By: #### 8 [id number] #### [facility] [address] [place] [address], [place] HCO3 (Bld) [Moles/Vol] 24 mmol/L Normal 21-28 Th e [facility] Comment on above: Performed By: #### 8 [id number] #### [facility] [address] [place] [address], [place] IONIZED CALCIUM 1.34 mmol/L High 1.13-1.32 The [facility] Comment on above: Performed By: #### 8 5499 #### [facility] [address] [place] [address], [place] MIN VOLUME 11.0 Normal The [facility] Comment on above: Performed By: #### 8 [id number] #### [facility] [address] [place] [address], [facility] MODALITY Positive Normal The [facility] Comment on above: Performed By: #### 8 [id number] #### [facility] [address] [place] [address], [place] Oxygen (Bld) [Partial pressure] 157 mm[Hg] Critically high 83-108 The [facility] Comment on above: Performed By: #### 8 [id number] #### [facility] [address] [place] [address], [place] Oxygen saturation in Blood 96.5 % Normal 94.0-97.0 The [facility] Comment on above: Performed By: #### 8 [id number] #### [facility] [address] [place] [address], [facility] PCO2 33 mmHg Low 35-45 The [facility] Comment on above: Performed By: #### 8 [id number] #### [facility] [address] [place] [address], [place] PEEP 8.0 CMH20 Normal The [facility] Comment on above: Performed By: #### 8 [id number] #### [facility] [address] [place] [address], [place] pH (Bld) 7.46 [pH] High 7.35-7.45 The [facility] Comment on above: Performed By: #### 8 [id number] #### [facility] [address] [place] [address], [facility] PRESSURE SUPPORT 10 Normal [facility] Comment on above: Performed By: #### 8 [id number] #### [facility] [address] [place] [address], [facility] BASE EXCESS -2 mmol/L Normal -2-3 The [facility] Comment on above: Order Comment: R/O P neumothorax Performed By: #### 8 4511 ####[facility] [place] [address], [facility] DELIVERY SYSTEMS VENT Normal [facility] Comment on above: Order Comment: R/O P neumothorax Performed By: #### 8 4511 ####[facility] [facility] FIO2 50 % Normal [facility] Comment on above: Order Comment: R/O P neumothorax Performed By: #### 8 4511 ####[facility] [facility] [address], [facility] HCO3 (Bld) [Moles/Vol] 23 mmol/L Normal 21-28 e [facility] Comment on above: Order Comment: R/O P neumothorax Performed By: #### 8 4511 ####[facility] [facility] [address], [facility] IONIZED CALCIUM 1.39 mmol/L High 1.13-1.32 The [facility] Comment on above: Order Comment: R/O P neumothorax Performed By: #### 8 4511 ####[facility] [facility] [place] [address], [facility] MIN VOLUME 6.0 Normal [facility] Comment on above: Order Comment: R/O P neumothorax Performed By: #### 8 4511 ####[facility] [place] [address], [facility] MODALITY SIMV Normal The [facility] Comment on above: Order Comment: R/O P neumothorax Performed By: #### 8 4511 ####[facility] [place] [address], [facility] Oxygen (Bld) [Partial pressure] 168 mm[Hg] Critically high 83-108 The [facility] Comment on above: Order Comment: R/O P neumothorax Performed By: #### 8 4511 ####[facility] [place] [address], [facility] Oxygen saturation in Blood 97.2 % High 94.0-97.0 The [facility] Comment on above: Order Comment: R/O P neumothorax Performed By: #### 8 4511 ####[facility] [place] [address], [facility] PCO2 42 mmHg Normal 35-45 The [facility] Comment on above: Order Comment: R/O P neumothorax Performed By: #### 8 4511 ####[facility] [place] [address], [facility] PEEP 8.0 CMH20 Normal [facility] Comment on above: Order Comment: R/O P neumothorax Performed By: #### 8 4511 ####[facility] [place] [address], [facility] pH (Bld) 7.35 [pH] Normal 7.35-7.45 [facility] Comment on above: Order Comment: R/O P neumothorax Performed By: #### 8 4511 ####[facility] [place] [address], [facility] PRESSURE SUPPORT 5 Normal [facility] Comment on above: Order Comment: R/O P neumothorax Performed By: #### 8 4511 ####[facility] [place] [address], [facility] TIDAL VOLUME (VT) CC 500 cc Normal [facility] Comment on above: Order Comment: R/O P neumothorax Performed By: #### 8 4511 ####[facility] [place] [address], [facility] BASIC METABOLIC PANELon 12-0 Calcium [Mass/Vol] 10.1 mg/dL Normal 8.6-10.3 [facility] Comment on above: Order Comment: No: D o not add to previous draw Performed By: #### 8 5499 #### [facility] [address] [place] [address], [facility] Chloride [Moles/Vol] 107 mmol/L Normal 98-107 [facility] Comment on above: Order Comment: No: D o not add to previous draw Performed By: #### 8 5499 #### [facility] [address] [place] [address], [facility] CO2 [Moles/Vol] 24 mmol/L Normal 21-31 [facility] Comment on above: Order Comment: No: D o not add to previous draw Performed By: #### 8 5499 #### [facility] [address] [place] [address], [place] Creatinine [Mass/Vol] 1.66 mg/dL High 0.70-1.30 [facility] Comment on above: Order Comment: No: D o not add to previous draw Performed By: #### 8 5499 #### [facility] [address] [place] [address], [place] GFR/1.73 sq M predicted among blacks MDRD (S/P/Bld) [Vol rate/Area] 49 ml/min/1.73sq m Abnormal >60 [facility] Comment on above: Order Comment: No: D o not add to previous draw Result Comment: Calc ulation may not be valid for patients over 70 years Performed By: #### 8 5499 #### [facility] [address] [place] [address], [place] GFR/1.73 sq M predicted among non-blacks MDRD (S/P/Bld) [Vol rate/Area] 41 ml/min/1.73sq m Abnormal >60 [facility] Comment on above: Order Comment: No: D o not add to previous draw Result Comment: Calc ulation may not be valid for patients over 70 years Performed By: #### 8 5499 #### [facility] [address] [place] [address], [place] Glucose [Mass/Vol] 115 mg/dL High 70-100 [facility] Comment on above: Order Comment: No: D o not add to previous draw Performed By: #### 8 5499 #### [facility] [address] [place] [address], [place] Sodium [Moles/Vol] 136 mmol/L Normal 136-145 [facility] Comment on above: Order Comment: No: D o not add to previous draw Performed By: #### 8 5499 #### [facility] [address] [place] [address], [place] Urea nitrogen [Mass/Vol] 31 mg/dL High 7-25 [facility] Comment on above: Order Comment: No: D o not add to previous draw Performed By: #### 8 5499 #### [facility] [address] [place] [address], [place] Calcium [Mass/Vol] 9.4 mg/dL Normal 8.6-10.3 [facility] Comment on above: Order Comment: No: D o not add to previous draw Performed By: #### 8 7002 #### [facility] [address] [place] [address], [place] Chloride [Moles/Vol] 104 mmol/L Normal 98-107 [facility] Comment on above: Order Comment: No: D o not add to previous draw Performed By: #### 8 7002 #### [facility] [address] [place] [address], [place] CO2 [Moles/Vol] 23 mmol/L Normal 21-31 [facility] Comment on above: Order Comment: No: D o not add to previous draw Performed By: #### 8 7002 #### [facility] [address] [place] [address], [place] Creatinine [Mass/Vol] 1.73 mg/dL High 0.70-1.30 [facility] Comment on above: Order Comment: No: D o not add to previous draw Performed By: #### 8 7002 #### [facility] [address] [place] [address], [facility] GFR/1.73 sq M predicted among blacks MDRD (S/P/Bld) [Vol rate/Area] 47 ml/min/1.73sq m Abnormal >60 [facility] Comment on above: Order Comment: No: D o not add to previous draw Result Comment: Calc ulation may not be valid for patients over 70 years Performed By: #### 8 7002 #### [facility] [address] [place] [address], [facility] GFR/1.73 sq M predicted among non-blacks MDRD (S/P/Bld) [Vol rate/Area] 39 ml/min/1.73sq m Abnormal >60 [facility] Comment on above: Order Comment: No: D o not add to previous draw Result Comment: Calc ulation may not be valid for patients over 70 years Performed By: #### 8 7002 #### [facility] [address] [place] [address], [place] Glucose [Mass/Vol] 128 mg/dL High 70-100 [facility] Comment on above: Order Comment: No: D o not add to previous draw Performed By: #### 8 7002 #### [facility] [address] [place] [address], [place] Potassium [Moles/Vol] 3.9 mmol/L Normal 3.5-5.1 [facility] Comment on above: Order Comment: No: D o not add to previous draw Performed By: #### 8 5499 #### [facility] [address] [place] [address], [place] Performed By: #### 8 7002 #### [facility] [address] [place] [address], [place] Sodium [Moles/Vol] 134 mmol/L Low 136-145 [facility] Comment on above: Order Comment: No: D o not add to previous draw Performed By: #### 8 7002 #### [facility] [address] [place] [address], [place] Urea nitrogen [Mass/Vol] 34 mg/dL High 7-25 [facility] Comment on above: Order Comment: No: D o not add to previous draw Performed By: #### 8 7002 #### [facility] [address] [place] [address], [place] Calcium [Mass/Vol] 10.7 mg/dL High 8.6-10.3 [facility] Comment on above: Performed By: #### 4 1000, 85524, 63770 ####[facility] [place] [address], [place] Chloride [Moles/Vol] 101 mmol/L Normal 98-107 [facility] Comment on above: Performed By: #### 4 1000, 51498, 35084 ####[facility] [place] [address], [place] CO2 [Moles/Vol] 20 mmol/L Low 21-31 [facility] Comment on above: Performed By: #### 4 1000, 56057, 27053 ####[facility] [place] [address], [facility] Creatinine [Mass/Vol] 1.79 mg/dL High 0.70-1.30 [facility] Comment on above: Performed By: #### 4 999, 80346, 29555 ####[facility] [facility] [address], [facility] GFR/1.73 sq M predicted among blacks MDRD (S/P/Bld) [Vol rate/Area] 45 ml/min/1.73sq m Abnormal >60 [facility] Comment on above: Result Comment: Calc ulation may not be valid for patients over 70 years Performed By: #### 4 999, 40852, 40307 ####[facility] [facility] [place] [address], [facility] GFR/1.73 sq M predicted among non-blacks MDRD (S/P/Bld) [Vol rate/Area] 37 ml/min/1.73sq m Abnormal >60 [facility] Comment on above: Result Comment: Calc ulation may not be valid for patients over 70 years Performed By: #### 4 999, 41910, 96706 ####[facility] [facility] [place] [address], [facility] Glucose [Mass/Vol] 219 mg/dL High 70-100 [facility] Comment on above: Performed By: #### 4 999, 61934, 61040 ####[facility] [facility] [place] [address], [facility] Potassium [Moles/Vol] 4.2 mmol/L Normal 3.5-5.1 [facility] Comment on above: Performed By: #### 4 999, 09649, 81734 ####[facility] [facility] [address], [facility] Sodium [Moles/Vol] 128 mmol/L Low 136-145 [facility] Comment on above: Performed By: #### 4 999, 63000, 13615 ####[facility] [facility] Urea nitrogen [Mass/Vol] 37 mg/dL High 7-25 [facility] Comment on above: Performed By: #### 4 1000, 65378, 10535 ####[facility] [place] [address], [facility] CARDIAC MAGNESIUM BLOODon Magnesium [Mass/Vol] 2.1 mg/dL Normal 1.9-2.7 [facility] Comment on above: Performed By: #### 8 7002 #### [facility] [address] CBC COMPLETE BLOOD COUNTon 1 08-08-2018 Hematocrit (Bld) [Volume fraction] 23.0 % Low 39.0-50.0 [facility] Comment on above: Order Comment: No: D o not add to previous draw Dup Performed By: #### 5 0608 #### [facility] [address] [place] [address], [facility] MCH (RBC) [Entitic mass] 29.4 pg Normal 27.0-33.0 [facility] Comment on above: Order Comment: No: D o not add to previous draw Dup Performed By: #### 5 0608 #### [facility] [address] [place] [address], [facility] MCHC (RBC) [Mass/Vol] 33.9 g/dL Normal 32.0-35.0 [facility] Comment on above: Order Comment: No: D o not add to previous draw Dup Performed By: #### 5 0608 #### [facility] [address] [place] [address], [facility] MCV (RBC) [Entitic vol] 86.8 fL Normal 82.0-98.0 T isabella [facility] Comment on above: Order Comment: No: D o not add to previous draw Dup Performed By: #### 5 0608 #### [facility] [address] [place] [id number], [facility] PLAT CNT 101 10*3/uL Low 150-400 [facility] Comment on above: Order Comment: No: D o not add to previous draw Dup Performed By: #### 5 0608 #### [facility] [address] [place] [address], [facility] RBC (Bld) [#/Vol] 2.65 10*6/uL Low 4.20-5.70 [facility] Comment on above: Order Comment: No: D o not add to previous draw Dup Performed By: #### 5 0608 #### [facility] [address] [place] [id number], [facility] WBC (Bld) [#/Vol] 11.51 10*3/uL High 4.00-10.60 [facility] Comment on above: Order Comment: No: D o not add to previous draw Dup Performed By: #### 5 0608 #### [facility] [address] [place] [id number], [facility] Erythrocyte distribution width (RBC) [Ratio] 13.2 % Normal 11.5-15.0 [facility] Comment on above: Order Comment: No: D o not add to previous draw Dup Performed By: #### 5 0608 #### [facility] [address] [place] [id number], [facility] Hematocrit (Bld) [Volume fraction] 24.4 % Low 39.0-50.0 [facility] Comment on above: Performed By: #### 5 0608 #### [facility] [address] [place] [id number], [facility] Hemoglobin (Bld) [Mass/Vol] 8.1 g/dL Low 13.0-17.0 [facility] Comment on above: Performed By: #### 5 0608 #### [facility] [address] MCH (RBC) [Entitic mass] 29.1 pg Normal 27.0-33.0 [facility] Comment on above: Performed By: #### 5 0608 #### [facility] [address] [place] [address], [facility] MCHC (RBC) [Mass/Vol] 33.2 g/dL Normal 32.0-35.0 [facility] Comment on above: Performed By: #### 5 0608 #### [facility] [address] [facility] [place] [address], [facility] MCV (RBC) [Entitic vol] 87.8 fL Normal 82.0-98.0 [facility] Comment on above: Performed By: #### 5 0608 #### [facility] [address] [facility]. [address] Nucleated RBC/100 WBC (Bld) [Ratio] 0 % Normal 0-0 [facility] Comment on above: Order Comment: No: D o not add to previous draw Dup Performed By: #### 5 0608 #### [facility] [address] Order Comment: No: D o not add to previous draw Performed By: #### 3 0313 #### [facility] [address] [facility] [place] [address], [facility] PLAT CNT 125 10*3/uL Low 150-400 [facility] Comment on above: Performed By: #### 5 0608 #### [facility] [address] [facility] [place] [address], [facility] RBC (Bld) [#/Vol] 2.78 10*6/uL Low 4.20-5.70 [facility] Comment on above: Performed By: #### 5 0608 #### [facility] [address] [place] [address], [facility] WBC (Bld) [#/Vol] 14.37 10*3/uL High 4.00-10.60 [facility] Comment on above: Performed By: #### 5 0608 #### [facility] [address] Erythrocyte distribution width (RBC) [Ratio] 13.1 % Normal 11.5-15.0 [facility] Comment on above: Order Comment: No: D o not add to previous draw Dup Performed By: #### 5 0608 #### [facility] [address] [place] [address], [facility] Hematocrit (Bld) [Volume fraction] 25.4 % Low 39.0-50.0 [facility] Comment on above: Order Comment: No: D o not add to previous draw Dup Performed By: #### 5 0608 #### [facility] [address] [facility] [address] Hemoglobin (Bld) [Mass/Vol] 8.7 g/dL Low 13.0-17.0 [facility] Comment on above: Order Comment: No: D o not add to previous draw Dup Performed By: #### 5 0608 #### [facility] [address] [place] [address], [facility] MCH (RBC) [Entitic mass] 29.6 pg Normal 27.0-33.0 [facility] Comment on above: Order Comment: No: D o not add to previous draw Dup Performed By: #### 5 0608 #### [facility] [address] [place] [address], [facility] MCHC (RBC) [Mass/Vol] 34.3 g/dL Normal 32.0-35.0 [facility] Comment on above: Order Comment: No: D o not add to previous draw Dup Performed By: #### 5 0608 #### [facility] [address] [place] [address], [facility] MCV (RBC) [Entitic vol] 86.4 fL Normal 82.0-98.0 T he [facility] Comment on above: Order Comment: No: D o not add to previous draw Dup Performed By: #### 5 0608 #### [facility] [address] [place] [address], [facility] PLAT CNT 145 10*3/uL Low 150-400 [facility] Comment on above: Order Comment: No: D o not add to previous draw Dup Performed By: #### 5 0608 #### [facility] [address] [place] [address], [facility] Order Comment: No: D o not add to previous draw Performed By: #### 3 0313 #### [facility] [address] [place] [address], [facility] RBC (Bld) [#/Vol] 2.94 10*6/uL Low 4.20-5.70 [facility] Comment on above: Order Comment: No: D o not add to previous draw Dup Performed By: #### 5 0608 #### [facility] [address] [place] [address], [facility] WBC (Bld) [#/Vol] 13.47 10*3/uL High 4.00-10.60 [facility] Comment on above: Order Comment: No: D o not add to previous draw Dup Performed By: #### 5 0608 #### [facility] [address] [place] [address], [facility] Hematocrit (Bld) [Volume fraction] 22.6 % Low 39.0-50.0 [facility] Comment on above: Order Comment: No: D o not add to previous draw Performed By: #### 3 0313 #### [facility] [address] [place] [id number], [facility] Hemoglobin (Bld) [Mass/Vol] 7.7 g/dL Low 13.0-17.0 [facility] Comment on above: Order Comment: No: D o not add to previous draw Performed By: #### 3 0313 #### [facility] [address] [place] [id number], [facility] MCH (RBC) [Entitic mass] 30.0 pg Normal 27.0-33.0 [facility] Comment on above: Order Comment: No: D o not add to previous draw Performed By: #### 3 0313 #### [facility] [address] [place] [address], [facility] MCHC (RBC) [Mass/Vol] 34.1 g/dL Normal 32.0-35.0 [facility] Comment on above: Order Comment: No: D o not add to previous draw Performed By: #### 3 0313 #### [facility] [address] [place] [address], [facility] MCV (RBC) [Entitic vol] 87.9 fL Normal 82.0-98.0 [facility] Comment on above: Order Comment: No: D o not add to previous draw Performed By: #### 3 0313 #### [facility] [address] [place] [address], [facility] RBC (Bld) [#/Vol] 2.57 10*6/uL Low 4.20-5.70 [facility] Comment on above: Order Comment: No: D o not add to previous draw Performed By: #### 3 0313 #### [facility] [address] [place] [address], [place] WBC (Bld) [#/Vol] 12.23 10*3/uL High 4.00-10.60 [facility] Comment on above: Order Comment: No: D o not add to previous draw Performed By: #### 3 0313 #### [facility] [address] [place] [address], [facility] Erythrocyte distribution width (RBC) [Ratio] 12.7 % Normal 11.5-15.0 [facility] Comment on above: Order Comment: No: D o not add to previous draw Performed By: #### 3 0313 #### [facility] [address] Performed By: #### 5 0608 #### [facility] [address] [facility] [address] Hematocrit (Bld) [Volume fraction] 21.9 % Low 39.0-50.0 [facility] Comment on above: Performed By: #### 5 0608 #### [facility] [address] [facility] [address] Hemoglobin (Bld) [Mass/Vol] 7.2 g/dL Low 13.0-17.0 [facility] Comment on above: Performed By: #### 5 0608 #### [facility] [address] [facility]. [address] MCH (RBC) [Entitic mass] 29.6 pg Normal 27.0-33.0 [facility] Comment on above: Performed By: #### 5 0608 #### [facility] [address] MCHC (RBC) [Mass/Vol] 32.9 g/dL Normal 32.0-35.0 [facility] Comment on above: Performed By: #### 5 0608 #### [facility] [address] [facility] MCV (RBC) [Entitic vol] 90.1 fL Normal 82.0-98.0 T isabella [facility] Comment on above: Performed By: #### 5 0608 #### [facility] [address] [place] [address], [facility] PLAT CNT 168 10*3/uL Normal 150-400 [facility] Comment on above: Performed By: #### 5 0608 #### [facility] [address] [place] [address], [facility] RBC (Bld) [#/Vol] 2.43 10*6/uL Low 4.20-5.70 [facility] Comment on above: Performed By: #### 5 0608 #### [facility] [address] [place] [address], [facility] WBC (Bld) [#/Vol] 17.05 10*3/uL High 4.00-10.60 [facility] Comment on above: Performed By: #### 5 0608 #### [facility] [address] [place] [address], [facility] Hemoglobin (Bld) [Mass/Vol] 7.8 g/dL Low 12.0-17.0 [facility] Comment on above: Order Comment: No: D o not add to previous draw Dup Performed By: #### 5 0608 #### [facility] [address] [place] [address], [facility] Performed By: #### 8 5499 #### [facility] [address] [place] [address], [facility] COOXIMETRYon 06-07-2019 COHB 2 % Normal [facility] Comment on above: Performed By: #### 7 0207 ####[facility] [place] [address], [facility] METHB 1 % Normal [facility] Comment on above: Performed By: #### 7 7 ####[facility] [place] [address], [facility] Oxygen saturation in Blood 72.8 % Normal 65.0-75.0 [facility] Comment on above: Performed By: #### 7 0207 ####[facility] [place] [address], [facility] THB 8.5 g/dL Normal [facility] Comment on above: Performed By: #### 7 0207 ####[facility] [place] [address], [facility] FIBRINOGENon 06-07-2019 FIBRINOGEN 217 mg/dL Normal 150-425 [facility] Comment on above: Performed By: #### 8 5499 #### [facility] [address] [place] [address], [facility] FRESH FROZEN PLASMA 2 UNITSo n 06-07-2019 PRODUCT CODE 1 E2701 Normal The [facility] Comment on above: Performed By: #### 8 7002 #### [facility] [address] [place] [address], [facility] PRODUCT CODE 2 E2701 Normal The [facility] Comment on above: Performed By: #### 8 7002 #### [facility] [address] [place] [address], [facility] PRODUCT STATUS 1 PT Normal [facility] Comment on above: Result Comment: Resu lt changed by IF on 06/07/2019 19:01. The previous value was XM. Result changed by IF on 06/08/2019 00:30. The previous value was IS. Performed By: #### 8 7002 #### [facility] [address] [place] [address], [facility] PRODUCT STATUS 2 PT Normal [facility] Comment on above: Result Comment: Resu lt changed by IF on 06/07/2019 19:01. The previous value was XM. Result changed by IF on 06/07/2019 19:40. The previous value was IS. Result changed by IF on 06/07/2019 21:57. The previous value was XM. Result changed by IF on 06/08/2019 00:30. The previous value was IS. Performed By: [id number] #### [facility] [address] [place] [address], [facility] UNIT ABO 1 AB Normal [facility] Comment on above: Performed By: [id number] #### [facility] [address] [place] [address], [facility] UNIT ABO 2 AB Normal [facility] Comment on above: Performed By: [id number] #### [facility] [address] [place] [address], [facility] UNIT ID 1 [id number] Normal The [facility] Comment on above: Performed By: #### 8 7002 #### [facility] [address] [place] [address], [facility] UNIT ID 2 [id number] Normal The [facility] Comment on above: Performed By: #### 8 7002 #### [facility] [address] [place] [address], [facility] UNIT RH 1 Positive Normal The [facility] Comment on above: Performed By: #### 8 7002 #### [facility] [address] [place] [address], [facility] UNIT RH 2 Positive Normal The [facility] Comment on above: Performed By: #### 8 7002 #### [facility] [address] [facility] [place] [address], [facility] LACTATE BLOODon 06-07-2019 Lactate [Moles/Vol] 1.7 mmol/L Normal 0.5-2.2 The [facility] Comment on above: Order Comment: No: D o not add to previous draw Performed By: #### 8 5499 #### [facility] [address] [place] [address], [place] Lactate [Moles/Vol] 1.3 mmol/L Normal 0.5-2.2 The [facility] Comment on above: Order Comment: No: D o not add to previous draw Performed By: #### 8 7002 #### [facility] [address] [place] [address], [place] Lactate [Moles/Vol] 1.4 mmol/L Normal 0.5-2.2 The [facility] Comment on above: Performed By: #### 8 [id number] #### [facility] [address] [place] [address], [facility] MAGNESIUM BLOODon 06-07-2019 Magnesium [Mass/Vol] 2.0 mg/dL Normal 1.9-2.7 The [facility] Comment on above: Order Comment: No: D o not add to previous draw Performed By: #### 8 [id number] #### [facility] [address] [place] [address], [facility] Magnesium [Mass/Vol] 2.7 mg/dL Normal 1.9-2.7 The [facility] Comment on above: Performed By: #### 4 1000, 62783, 97550 ####[facility] [facility] [place] [address], [facility] OSMOLALITY BLOODon 9 Osmolality [Osmolality] 292 mOsm/kg Normal 285-305 The [facility] Comment on above: Order Comment: No: D o not add to previous draw Performed By: #### 8 7002 #### [facility] [address] [address], [facility] PERFUSION BLOOD PANELon 12-0 BASE EXCESS -2.0 mmol/L Normal -2.0-3.0 The [facility] Comment on above: Performed By: #### 8 5499 #### [facility] [address] [place] [address], [facility] Glucose [Mass/Vol] 125 mg/dL High 70-105 [facility] Comment on above: Performed By: #### 8 5499 #### [facility] [address] [place] [address], [facility] Hematocrit (Bld) [Volume fraction] 27 % Low 38-51 The [facility] Comment on above: Performed By: #### 8 5499 #### [facility] [address] [place] [address], [facility] Hemoglobin (Bld) [Mass/Vol] 9.2 g/dL Low 12.0-17.0 [facility] Comment on above: Performed By: #### 8 5499 #### [facility] [address] [place] [address], [facility] IONIZED CALCIUM 1.36 mmol/L High 1.12-1.32 [facility] Comment on above: Performed By: #### 8 5499 #### [facility] [address] [place] [address], [facility] Oxygen (Bld) [Partial pressure] 300.0 mm[Hg] High 80.0-105.0 [facility] Comment on above: Performed By: #### 8 5499 #### [facility] [address] [place] [address], [facility] PCO2 50.8 mmHg High 35.0-45.0 [facility] Comment on above: Performed By: #### 8 5499 #### [facility] [address] [address], [facility] pH (Bld) 7.30 [pH] Low 7.35-7.45 [facility] Comment on above: Performed By: #### 8 5499 #### [facility] [address] [place] [id number], [facility] Potassium [Moles/Vol] 3.6 mmol/L Normal 3.5-4.9 [facility] Comment on above: Performed By: #### 8 5499 #### [facility] [address] [place] [address], [facility] Sodium [Moles/Vol] 138 mmol/L Normal 138-146 [facility] Comment on above: Performed By: #### 8 5499 #### [facility] [address] [place] [id number], [place] BASE EXCESS -6.0 mmol/L Low -2.0-3.0 The [facility] Comment on above: Performed By: #### 8 5499 #### [facility] [address] [place] [address], [facility] Glucose [Mass/Vol] 186 mg/dL High 70-105 [facility] Comment on above: Performed By: #### 8 5499 #### [facility] [address] [place] [address], [facility] Hematocrit (Bld) [Volume fraction] 21 % Low 38-51 The [facility] Comment on above: Performed By: #### 8 5499 #### [facility] [address] [place] [address], [facility] Hemoglobin (Bld) [Mass/Vol] 7.1 g/dL Low 12.0-17.0 The [facility] Comment on above: Performed By: #### 8 5499 #### [facility] [address] [place] [address], [facility] IONIZED CALCIUM 1.71 mmol/L Critically high 1.12-1.32 [facility] Comment on above: Performed By: #### 8 5499 #### [facility] [address] [place] [address], [facility] Oxygen (Bld) [Partial pressure] 112.0 mm[Hg] High 80.0-105.0 The [facility] Comment on above: Performed By: #### 8 [id number] #### [facility] [address] [place] [address], [facility] PCO2 44.6 mmHg Normal 35.0-45.0 The [facility] Comment on above: Performed By: #### 8 [id number] #### [facility] [address] [place] [address], [facility] pH (Bld) 7.26 [pH] Low 7.35-7.45 The [facility] Comment on above: Performed By: #### 8 5499 #### [facility] [address] [place] [address], [facility] Potassium [Moles/Vol] 4.2 mmol/L Normal 3.5-4.9 [facility] Comment on above: Performed By: #### 8 5499 #### [facility] [address] [place] [address], [facility] Sodium [Moles/Vol] 132 mmol/L Low 138-146 The [facility] Comment on above: Performed By: #### 8 5499 #### [facility] [address] [place] [address], [facility] BASE EXCESS -6.0 mmol/L Low -2.0-3.0 The [facility] Comment on above: Performed By: #### 8 5499 #### [facility] [address] [place] [address], [facility] Glucose [Mass/Vol] 211 mg/dL High 70-105 [facility] Comment on above: Performed By: #### 8 [id number] #### [facility] [address] [place] [address], [facility] Hematocrit (Bld) [Volume fraction] 21 % Low 38-51 The [facility] Comment on above: Performed By: #### 8 [id number] #### [facility] [address] [place] [address], [facility] Hemoglobin (Bld) [Mass/Vol] 7.1 g/dL Low 12.0-17.0 The [facility] Comment on above: Performed By: #### 8 5499 #### [facility] [address] [place] [id number], [facility] IONIZED CALCIUM 1.71 mmol/L Critically high 1.12-1.32 The [facility] Comment on above: Performed By: #### 8 [id number] #### [facility] [address] [place] [address], [facility] Oxygen (Bld) [Partial pressure] 103.0 mm[Hg] Normal 80.0-105.0 The [facility] Comment on above: Performed By: #### 8 [id number] #### [facility] [address] [place] [address], [facility] PCO2 39.8 mmHg Normal 35.0-45.0 The [facility] Comment on above: Performed By: #### 8 5499 #### [facility] [address] [place] [address], [facility] pH (Bld) 7.30 [pH] Low 7.35-7.45 The [facility] Comment on above: Performed By: #### 8 5499 #### [facility] [address] [place] [address], [place] Potassium [Moles/Vol] 4.1 mmol/L Normal 3.5-4.9 [facility] Comment on above: Performed By: #### 8 5499 #### [facility] [address] [place] [address], [place] Sodium [Moles/Vol] 130 mmol/L Low 138-146 The [facility] Comment on above: Performed By: #### 8 5499 #### [facility] [address] [place] [address], [facility] BASE EXCESS -2.0 mmol/L Normal -2.0-3.0 The [facility] Comment on above: Performed By: #### 3 0738 #### [facility] [address] [place] [address], [place] Glucose [Mass/Vol] 219 mg/dL High 70-105 [facility] Comment on above: Performed By: #### 3 0738 #### [facility] [address] [place] [address], [place] Hematocrit (Bld) [Volume fraction] 26 % Low 38-51 The [facility] Comment on above: Performed By: #### 3 0738 #### [facility] [address] [place] [address], [facility] Hemoglobin (Bld) [Mass/Vol] 8.8 g/dL Low 12.0-17.0 The [facility] Comment on above: Performed By: #### 3 0738 #### [facility] [address] [place] [address], [facility] IONIZED CALCIUM 1.07 mmol/L Low 1.12-1.32 [facility] Comment on above: Performed By: #### 3 0738 #### [facility] [address] [place] [id number], [facility] Oxygen (Bld) [Partial pressure] 308.0 mm[Hg] High 80.0-105.0 The [facility] Comment on above: Performed By: #### 3 0738 #### [facility] [address] [place] [address], [facility] PCO2 33.2 mmHg Low 35.0-45.0 The [facility] Comment on above: Performed By: #### 3 0738 #### [facility] [address] [place] [address], [facility] pH (Bld) 7.42 [pH] Normal 7.35-7.45 [facility] Comment on above: Performed By: #### 3 0738 #### [facility] [address] [place] [address], [place] Potassium [Moles/Vol] 5.3 mmol/L High 3.5-4.9 The [facility] Comment on above: Performed By: #### 3 0738 #### [facility] [address] [place] [address], [place] Sodium [Moles/Vol] 130 mmol/L Low 138-146 [facility] Comment on above: Performed By: #### 3 0738 #### [facility] [address] [place] [address], [facility] BASE EXCESS 0.0 mmol/L Normal -2.0-3.0 [facility] Comment on above: Performed By: #### 8 [id number] #### [facility] [address] [place] [address], [place] Glucose [Mass/Vol] 187 mg/dL High 70-105 [facility] Comment on above: Performed By: #### 8 5499 #### [facility] [address] [place] [address], [facility] Hematocrit (Bld) [Volume fraction] 23 % Low 38-51 [facility] Comment on above: Performed By: #### 8 5499 #### [facility] [address] [place] [address], [facility] IONIZED CALCIUM 1.13 mmol/L Normal 1.12-1.32 [facility] Comment on above: Performed By: #### 8 5499 #### [facility] [address] [place] [address], [facility] Oxygen (Bld) [Partial pressure] 434.0 mm[Hg] High 80.0-105.0 [facility] Comment on above: Performed By: #### 8 5499 #### [facility] [address] [place] [address], [facility] PCO2 37.2 mmHg Normal 35.0-45.0 [facility] Comment on above: Performed By: #### 8 5499 #### [facility] [address] [place] [address], [facility] pH (Bld) 7.43 [pH] Normal 7.35-7.45 [facility] Comment on above: Performed By: #### 8 5499 #### [facility] [address] [place] [address], [facility] Potassium [Moles/Vol] 4.7 mmol/L Normal 3.5-4.9 [facility] Comment on above: Performed By: #### 8 5499 #### [facility] [address] [place] [address], [facility] Sodium [Moles/Vol] 131 mmol/L Low 138-146 [facility] Comment on above: Performed By: #### 8 5499 #### [facility] [address] [place] [address], [facility] BASE EXCESS -2.0 mmol/L Normal -2.0-3.0 The [facility] Comment on above: Performed By: #### 8 5499 #### [facility] [address] [place] [address], [facility] Glucose [Mass/Vol] 163 mg/dL High 70-105 [facility] Comment on above: Performed By: #### 8 5499 #### [facility] [address] [place] [address], [facility] Hematocrit (Bld) [Volume fraction] 28 % Low 38-51 [facility] Comment on above: Performed By: #### 8 5499 #### [facility] [address] [place] [address], [facility] Hemoglobin (Bld) [Mass/Vol] 9.5 g/dL Low 12.0-17.0 [facility] Comment on above: Performed By: #### 8 5499 #### [facility] [address] [place] [address], [facility] IONIZED CALCIUM 1.12 mmol/L Normal 1.12-1.32 The [facility] Comment on above: Performed By: #### 8 5499 #### [facility] [address] [place] [address], [facility] Oxygen (Bld) [Partial pressure] 372.0 mm[Hg] High 80.0-105.0 [facility] Comment on above: Performed By: #### 8 5499 #### [facility] [address] [place] [address], [facility] PCO2 39.6 mmHg Normal 35.0-45.0 [facility] Comment on above: Performed By: #### 8 5499 #### [facility] [address] [place] [address], [facility] pH (Bld) 7.37 [pH] Normal 7.35-7.45 [facility] Comment on above: Performed By: #### 8 5499 #### [facility] [address] [place] [address], [facility] Potassium [Moles/Vol] 4.3 mmol/L Normal 3.5-4.9 [facility] Comment on above: Performed By: #### 8 5499 #### [facility] [address] [place] [address], [facility] Sodium [Moles/Vol] 131 mmol/L Low 138-146 [facility] Comment on above: Performed By: #### 8 5499 #### [facility] [address] [place] [address], [facility] BASE EXCESS -3.0 mmol/L Low -2.0-3.0 The [facility] Comment on above: Performed By: #### 8 5499 #### [facility] [address] [place] [address], [facility] Glucose [Mass/Vol] 159 mg/dL High 70-105 [facility] Comment on above: Performed By: #### 8 5499 #### [facility] [address] [place] [id number], [facility] Hematocrit (Bld) [Volume fraction] 30 % Low 38-51 [facility] Comment on above: Performed By: #### 8 5499 #### [facility] [address] [place] [address], [facility] Hemoglobin (Bld) [Mass/Vol] 10.2 g/dL Low 12.0-17.0 [facility] Comment on above: Performed By: #### 8 5499 #### [facility] [address] [place] [address], [facility] IONIZED CALCIUM 1.18 mmol/L Normal 1.12-1.32 [facility] Comment on above: Performed By: #### 8 5499 #### [facility] [address] [place] [address], [facility] Oxygen (Bld) [Partial pressure] 207.0 mm[Hg] High 80.0-105.0 [facility] Comment on above: Performed By: #### 8 5499 #### [facility] [address] [place] [address], [facility] PCO2 41.7 mmHg Normal 35.0-45.0 [facility] Comment on above: Performed By: #### 8 5499 #### [facility] [address] [place] [address], [facility] pH (Bld) 7.34 [pH] Low 7.35-7.45 [facility] Comment on above: Performed By: #### 8 5499 #### [facility] [address] [place] [address], [facility] Potassium [Moles/Vol] 4.3 mmol/L Normal 3.5-4.9 [facility] Comment on above: Performed By: #### 8 5499 #### [facility] [address] [place] [address], [place] Sodium [Moles/Vol] 132 mmol/L Low 138-146 [facility] Comment on above: Performed By: #### 8 5499 #### [facility] [address] [place] [address], [facility] Hematocrit (Bld) [Volume fraction] 30 % Low 38-51 [facility] Comment on above: Performed By: #### 8 [id number] #### [facility] [address] [place] [address], [place] Hemoglobin (Bld) [Mass/Vol] 10.2 g/dL Low 12.0-17.0 [facility] Comment on above: Performed By: #### 8 5499 #### [facility] [address] [place] [address], [place] Oxygen (Bld) [Partial pressure] 48.0 mm[Hg] Normal [facility] Comment on above: Performed By: #### 8 5499 #### [facility] [address] [place] [address], [place] BASE EXCESS -1.0 mmol/L Normal -2.0-3.0 [facility] Comment on above: Performed By: #### 8 5499 #### [facility] [address] [place] [address], [place] Glucose [Mass/Vol] 113 mg/dL High 70-105 [facility] Comment on above: Performed By: #### 8 5499 #### [facility] [address] [place] [address], [place] Hematocrit (Bld) [Volume fraction] 28 % Low 38-51 [facility] Comment on above: Performed By: #### 8 [id number] #### [facility] [address] [place] [address], [place] Hemoglobin (Bld) [Mass/Vol] 9.5 g/dL Low 12.0-17.0 [facility] Comment on above: Performed By: #### 8 5499 #### [facility] [address] [place] [address], [place] IONIZED CALCIUM 1.18 mmol/L Normal 1.12-1.32 [facility] Comment on above: Performed By: #### 8 5499 #### [facility] [address] [place] [address], [facility] Oxygen (Bld) [Partial pressure] 250.0 mm[Hg] High 80.0-105.0 [facility] Comment on above: Performed By: #### 8 [id number] #### [facility] [address] [place] [address], [place] PCO2 36.1 mmHg Normal 35.0-45.0 [facility] Comment on above: Performed By: #### 8 [id number] #### [facility] [address] [place] [address], [place] pH (Bld) 7.42 [pH] Normal 7.35-7.45 [facility] Comment on above: Performed By: #### 8 [id number] #### [facility] [address] [place] [address], [place] Potassium [Moles/Vol] 4.1 mmol/L Normal 3.5-4.9 [facility] Comment on above: Performed By: #### 8 5499 #### [facility] [address] [place] [address], [place] Sodium [Moles/Vol] 130 mmol/L Low 138-146 [facility] Comment on above: Performed By: #### 8 5499 #### [facility] [address] [place] [address], [place] PHOSPHORUS BLOODon 9 Phosphate [Mass/Vol] 3.8 mg/dL Normal 2.5-5.0 [facility] Comment on above: Order Comment: No: D o not add to previous draw Performed By: #### 8 [id number] #### [facility] [address] [place] [address], [place] Phosphate [Mass/Vol] 3.4 mg/dL Normal 2.5-5.0 [facility] Comment on above: Performed By: #### 4 1000, [address], 45182 ####[facility] [facility] [address], [facility] POC GLUCOSE LABon 06-07-2019 Glucose [Mass/Vol] 104 mg/dL High 70-100 [facility] Comment on above: Performed By: #### 8 5499 #### [facility] [address] [place] [address], [place] Glucose [Mass/Vol] 120 mg/dL High 70-100 [facility] Comment on above: Performed By: #### 8 5499 ####[facility] [facility] [address], [place] Glucose [Mass/Vol] 146 mg/dL High 70-100 [facility] Comment on above: Performed By: #### 8 5499 #### [facility] [address] [facility] [place] [address], [place] Glucose [Mass/Vol] 151 mg/dL High 70-100 [facility] Comment on above: Performed By: #### 8 5499 #### [facility] [address] [facility] [place] [address], [place] Glucose [Mass/Vol] 150 mg/dL High 70-100 [facility] on above: Performed By: #### 8 5499 #### [facility] [address] [facility] [place] [address], [place] Glucose [Mass/Vol] 128 mg/dL High 70-100 [facility] Comment on above: Performed By: #### [id number] #### [facility] [address] [facility] [place] [address], [place] PORTABLE CHEST 1 VIEWon PORTABLE CHEST 1 VIEW [facility] Department of Radiology [address] [place] [id number] Patient Name: JASON BARTHOLOMEW : 1945 Sex: M Age: Race: White Pt. Location: [id number] Patient Status: I Ordered Date: 06/07/2019 1:45:00 PM Completed Date: 06/07/2019 02:49 PM Requesting Provider: YA LITTLE Attending Provider: JANETH HUTTON Report Copy To: Signs & Symptoms: Post CABG History: See Comments Comments: Check Chest Tube Position, ON ARRIVAL TO CVU Exam: PORTABLE CHEST 1 VIEW PORTABLE CHEST 1 VIEW 06/07/2019 2:49 PM EST SIGNS AND SYMPTOMS: Post CABG TECHNOLOGIST COMMENTS: Post CABG QUESTION FOR THE RADIOLOGIST: Check Chest Tube Position, ON ARRIVAL TO CVU PROTOCOL: AP(PA) view was obtained. COMPARISON: None FINDINGS: Right chest tube. No evidence of right-sided pneumothorax. [place]-Teresa catheter present tip is just inside the right pulmonary artery. Endotracheal tube present tip is 4 cm above the wm and nasogastric tube present coiled below the diaphragm. Mediastinal drain present coiled over the heart. Status post aortic valve replacement. There is some vague increased density in the right upper lung may represent atelectasis cannot exclude small IMPRESSION: * Tubes and lines as described. * Date/subtle airspace density upper right lung likely atelectasis cannot exclude early developing pneumonia * No pneumothorax Electronically signed by:Paige Hameed. Transcribed by: [email or web address], User Resident: Electronically Signed by: PAIGE HAMEED @ 06/07/2019 03:11 PM Normal [facility] Comment on above: Order Comment: Check Chest Tube Position, ON ARRIVAL TO CVU PORTABLE CHEST FOREIGN BODYo n 06-07-2019 PORTABLE CHEST FOREIGN BODY [facility] Department of Radiology [address] [place] [id number] Patient Name: JASON BARTHOLOMEW : 1945 Sex: M Age: Race: White Pt. Location: [id number] Patient Status: I Ordered Date: 06/07/2019 7:00:00 PM Completed Date: 06/07/2019 07:20 PM Requesting Provider: JANETH HUTTON Attending Provider: JANETH HUTTON Report Copy To: Signs & Symptoms: R/O foreign body History: R/O foreign body Comments: R/O foreign body Exam: PORTABLE CHEST FOREIGN BODY PORTABLE CHEST FOREIGN BODY 06/07/2019 7:20 PM EST SIGNS AND SYMPTOMS: R/O foreign body TECHNOLOGIST COMMENTS: R/O foreign body QUESTION FOR THE RADIOLOGIST: R/O foreign body PROTOCOL: AP(PA) view was obtained. COMPARISON: Earlier on the same day FINDINGS: Right-sided chest tube, mediastinal drain, ET tube, enteric tube, and [place]-Teresa catheter are in satisfactory position with no significant change since prior study. There are multiple small needle shape radiopaque density with threadlike line seen in the right lower chest and right upper quadrant of the abdomen. Patchy opacity in the right lung with loculated small pleural effusion over the lateral side and in the minor fissure slightly increased since prior study. Left lung is clear. Cardiac mediastinal silhouette is enlarged, unchanged with prosthetic aortic valve in place. IMPRESSION: 1. Satisfactory position of supportive lines and tubes. 2. There are multiple small needle shape radiopaque density with threadlike line seen on the right lower chest and right upper quadrant, this could be outside of the body over the skin, please correlate clinically. No other radiopaque foreign body identified. 3. Right lung airspace disease with loculated/layering pleural effusion, slightly increased since prior study. Approved by:Nicholas Casey on 06/07/2019 7:55 PM EST. I, Noreen Menendez, have reviewed the images and report and concur with these findings. Electronically signed by:Noreen Menendez. Transcribed by: [email or web address], User Resident: NICHOLAS CASEY Electronically Signed by: NOREEN MENENDEZ @ 06/08/2019 06:13 AM I personally read this/these film(s) with this resident Normal [facility] Comment on above: Order Comment: R/O f oreign body PROTHROMBIN TIMEon 9 INR Coag (PPP) [Relative time] 1.44 {INR} High 0.91-1.16 [facility] Comment on above: Result Comment: ACCC P RECOMMENDED INR FOR WARFARIN THERAPY ------- CONDITION INR PROPHYLAXIS OF VENOUS THROMBOSIS 2-3 (HIGH-RISK SURGERY) TREATMENT OF VENOUS THROMBOSIS 2-3 TREATMENT OF PULMONARY EMBOLISM 2-3 PREVENTION OF SYSTEMIC EMBOLISM: 2-3 ACUTE MYOCARDIAL INFARCTION TISSUE HEART VALVES VALVULAR HEART DISEASE ATRIAL FIBRILLATION RECURRENT SYSTEMIC EMBOLISM MECHANICAL HEART VALVE 2.5-3.5 FROM: ORAL ANTICOAGULANTS. MECHANISM OF ACTION, CLINICAL EFFECTIVENESS, AND OPTIMAL THERAPEUTIC RANGE. CHEST 1995;108:231S-246S. Performed By: #### [id number] #### [facility] [address] [place] [address], [place] PT Coag (PPP) [Time] 17.7 s High 12.3-14.8 [facility] Comment on above: Result Comment: ALL RESULTS MUST BE INTERPRETED WITH RESPECT TO BLOOD DRAWING ARTIFACT OR DILUTION ERROR OF ANTICOAGULANT AT THE TIME OF SAMPLING. Performed By: #### 8 [id number] #### [facility] [address] [place] [address], [place] INR Coag (PPP) [Relative time] 1.33 {INR} High 0.91-1.16 [facility] Comment on above: Order Comment: No: D o not add to previous draw Result Comment: ACCC P RECOMMENDED INR FOR WARFARIN THERAPY ------- CONDITION INR PROPHYLAXIS OF VENOUS THROMBOSIS 2-3 (HIGH-RISK SURGERY) TREATMENT OF VENOUS THROMBOSIS 2-3 TREATMENT OF PULMONARY EMBOLISM 2-3 PREVENTION OF SYSTEMIC EMBOLISM: 2-3 ACUTE MYOCARDIAL INFARCTION TISSUE HEART VALVES VALVULAR HEART DISEASE ATRIAL FIBRILLATION RECURRENT SYSTEMIC EMBOLISM MECHANICAL HEART VALVE 2.5-3.5 FROM: ORAL ANTICOAGULANTS. MECHANISM OF ACTION, CLINICAL EFFECTIVENESS, AND OPTIMAL THERAPEUTIC RANGE. CHEST 1995;108:231S-246S. Performed By: #### 8 [id number] #### [facility] [address] [place] [address], [place] PT Coag (PPP) [Time] 16.6 s High 12.3-14.8 [facility] Comment on above: Order Comment: No: D o not add to previous draw Result Comment: ALL RESULTS MUST BE INTERPRETED WITH RESPECT TO BLOOD DRAWING ARTIFACT OR DILUTION ERROR OF ANTICOAGULANT AT THE TIME OF SAMPLING. Performed By: #### [id number] #### [facility] [address] [facility]. [address] INR Coag (PPP) [Relative time] 1.42 {INR} High 0.91-1.16 [facility] Comment on above: Result Comment: ACCC P RECOMMENDED INR FOR WARFARIN THERAPY ------- CONDITION INR PROPHYLAXIS OF VENOUS THROMBOSIS 2-3 (HIGH-RISK SURGERY) TREATMENT OF VENOUS THROMBOSIS 2-3 TREATMENT OF PULMONARY EMBOLISM 2-3 PREVENTION OF SYSTEMIC EMBOLISM: 2-3 ACUTE MYOCARDIAL INFARCTION TISSUE HEART VALVES VALVULAR HEART DISEASE ATRIAL FIBRILLATION RECURRENT SYSTEMIC EMBOLISM MECHANICAL HEART VALVE 2.5-3.5 FROM: ORAL ANTICOAGULANTS. MECHANISM OF ACTION, CLINICAL EFFECTIVENESS, AND OPTIMAL THERAPEUTIC RANGE. CHEST 1995;108:231S-246S. Performed By: #### [id number] #### [facility] [address] [facility] [address], [facility] PT Coag (PPP) [Time] 17.5 s High 12.3-14.8 [facility] Comment on above: Result Comment: ALL RESULTS MUST BE INTERPRETED WITH RESPECT TO BLOOD DRAWING ARTIFACT OR DILUTION ERROR OF ANTICOAGULANT AT THE TIME OF SAMPLING. Performed By: #### 8 [id number] #### [facility] [address] [place] [address], [facility] RBC'S 2 UNITSon 06-07-2019 CROSSMATCH INTERP 1 COMP Normal The [facility] Comment on above: Performed By: #### [id number] ####[facility] [place] [address], [facility] CROSSMATCH INTERP 2 COMP Normal The [facility] Comment on above: Performed By: #### 8 [id number] ####[facility] [place] [address], [facility] PRODUCT CODE 1 E0336 Normal The [facility] Comment on above: Performed By: #### 8 [id number] ####[facility] [facility] [address], [facility] PRODUCT CODE 2 E0336 Normal The [facility] Comment on above: Performed By: #### 8 [id number] ####[facility] [place] [address], [facility] PRODUCT STATUS 1 PT Normal The [facility] Comment on above: Result Comment: Resu lt changed by IF on 06/07/2019 18:23. The previous value was XM. Result changed by IF on 06/07/2019 19:40. The previous value was IS. Result changed by IF on 06/08/2019 04:52. The previous value was XM. Result changed by IF on 06/09/2019 00:30. The previous value was IS. Performed By: #### [id number] ####[facility] [facility] [place] [address], [facility] PRODUCT STATUS 2 PT Normal The [facility] Comment on above: Result Comment: Resu lt changed by IF on 06/07/2019 18:23. The previous value was XM. Result changed by IF on 06/07/2019 19:40. The previous value was IS. Result changed by IF on 06/08/2019 03:43. The previous value was XM. Result changed by IF on 06/09/2019 00:30. The previous value was IS. Performed By: #### 8 [id number] ####[facility] [facility] [place] [address], [facility] UNIT ABO 1 AB Normal [facility] Comment on above: Performed By: #### 8 [id number] ####[facility] [place] [address], [facility] UNIT ABO 2 AB Normal [facility] Comment on above: Performed By: #### 8 [id number] ####[facility] [place] [address], [facility] UNIT ID 1 [id number] Normal The [facility] Comment on above: Performed By: #### 8 [id number] ####[facility] [place] [address], [facility] UNIT ID 2 [id number] Normal The [facility] Comment on above: Performed By: #### 8 [id number] ####[facility] [place] [address], [facility] UNIT RH 1 Positive Normal [facility] Comment on above: Performed By: #### 8 [id number] ####[facility] [place] [address], [facility] UNIT RH 2 Positive Normal [facility] Comment on above: Performed By: #### 8 [id number] ####[facility] [place] [address], [place] CROSSMATCH INTERP 1 COMP Normal [facility] Comment on above: Performed By: #### 8 [id number] #### [facility] [address] [place] [address], [place] CROSSMATCH INTERP 2 COMP Normal [facility] Comment on above: Performed By: #### 8 [id number] #### [facility] [address] [place] [address], [place] PRODUCT CODE 1 E0336 Normal The [facility] Comment on above: Performed By: #### 8 [id number] #### [facility] [address] [place] [address], [facility] PRODUCT CODE 2 E0336 Normal [facility] Comment on above: Performed By: #### 8 [id number] #### [facility] [address] [place] [address], [facility] PRODUCT STATUS 1 PT Normal The [facility] Comment on above: Result Comment: Resu lt changed by IF on 06/07/2019 09:27. The previous value was XM. Result changed by IF on 06/07/2019 14:24. The previous value was IS. Result changed by IF on 06/07/2019 15:56. The previous value was XM. Result changed by IF on 06/08/2019 00:30. The previous value was IS. Performed By: #### 8 [id number] #### [facility] [address] [place], [place] [id number] [place] [address] PRODUCT STATUS 2 PT Normal The [facility] Comment on above: Result Comment: Resu lt changed by IF on 06/07/2019 09:27. The previous value was XM. Result changed by IF on 06/07/2019 14:24. The previous value was IS. Result changed by IF on 06/07/2019 17:35. The previous value was XM. Result changed by IF on 06/08/2019 00:30. The previous value was IS. Performed By: #### 8 [id number] #### [facility] [address] [place] [address], [facility] UNIT ABO 1 AB Normal [facility] Comment on above: Performed By: #### 8 [id number] #### [facility] [address] [place] [address], [place] UNIT ABO 2 AB Normal [facility] Comment on above: Performed By: #### 8 [id number] #### [facility] [address] [place] [address], [place] UNIT ID 1 [id number] Normal The [facility] Comment on above: Performed By: #### 8 [id number] #### [facility] [address] UNIT ID 2 [id number] Normal The [facility] Comment on above: Performed By: #### 8 [id number] #### [facility] [address] UNIT RH 1 Positive Normal [facility] Comment on above: Performed By: #### 8 [id number] #### [facility] [address] [place] [address], [facility] UNIT RH 2 Positive Normal [facility] Comment on above: Performed By: #### 8 [id number] #### [facility] [address] UFH HEPARIN ASSAYon 06-07-20 19 UNFRACTIONATED HEPARIN 0.18 IU/mL Low 0.30-0.70 Th e [facility] Comment on above: Result Comment: Izzy roxaban and Apixaban will interfere with the anti Xa assay used to monitor UFH and LMWH. Added per Protocol Performed By: #### 8 [id number] #### [facility] [address] [place] [address], [facility] UNFRACTIONATED HEPARIN 0.40 IU/mL Normal 0.30-0.70 Th e [facility] Comment on above: Result Comment: [place]clenny roxaban and Apixaban will interfere with the anti Xa assay used to monitor UFH and LMWH. UFH add per Protocol Performed By: #### 8 [id number] #### [facility] [address] Vital Signs Date Time Vital Sign Value Performing Clinician Facility 07-28-2023 14:00-0500 Body height 175.26 cm Sonali Hadadd [facility] Other 07-28-2023 14:00-0500 Body mass index (BMI) [Ratio] 28.35 kg/m2 Sonali Haddad [facility] Other 07-28-2023 14:00-0500 Body temperature 97.6 [degF] Sonali Haddad [facility] Other 07-28-2023 14:00-0500 Body weight 87.09 kg Sonali Haddad Other [facility] Other 07-28-2023 14:00-0500 Diastolic blood pressure 84 mm[Hg] Sonali Haddad Other [facility] Other 07-28-2023 14:00-0500 Respiratory rate 18 /min Sonali Haddad [facility] Other 07-28-2023 14:00-0500 SaO2% (BldA) [Mass fraction] 97 % Sonali Haddad Other [facility] Other 07-28-2023 14:00-0500 Systolic blood pressure 114 mm[Hg] Sonali Haddad [facility] Other 07-21-2022 14:00-0500 Body height 175.26 cm Kylah Valenzuela Other [facility] Other 07-21-2022 14:00-0500 Body mass index (BMI) [Ratio] 27.32 kg/m2 Kylah Valenzuela Other [facility] Other 07-21-2022 14:00-0500 Body weight 83.92 kg Kylah Valenzuela Other [facility] Other 07-06-2022 08:35-0500 Diastolic blood pressure 80 mm[Hg] MD Idris Jose Work Phone: [facility] 07-06-2022 08:35-0500 Heart rate 63 /min MD Idris Jose Work Phone: [facility] 07-06-2022 08:35-0500 Respiratory rate 16 /min MD Idris Jose Work Phone: [facility] 07-06-2022 08:35-0500 SaO2% (BldA) [Mass fraction] 95 % MD Idris Jose Work Phone: [facility] 07-06-2022 08:35-0500 Systolic blood pressure 159 mm[Hg] MD Idris Jose Work Phone: [facility] 07-06-2022 07:37-0500 Body mass index (BMI) [Ratio] 27.3 kg/m2 MD Idris Jose Work Phone: [facility] 07-06-2022 07:27-0500 Body height 175.26 cm MD Idris Jose Work Phone: [facility] 07-06-2022 07:27-0500 Body weight 83.91 kg MD Idris Jose Work Phone: [facility] 07-06-2022 06:11-0500 Body temperature 97.9 [degF] MD Idris Jose Work Phone: [facility] 03-18-2022 11:20-0400 Body height 175.26 cm Darien Escamilla Other [facility] Other 03-18-2022 11:20-0400 Body mass index (BMI) [Ratio] 27.32 kg/m2 Darien Escamilla Other [facility] Other 03-18-2022 11:20-0400 Body weight 83.92 kg Darien Escamilla Other [facility] Other 05-01-2021 11:40-0400 Body height 175.26 cm Sonali Haddad Other [facility] Other 05-01-2021 11:40-0400 Body mass index (BMI) [Ratio] 28.06 kg/m2 Sonali Haddad Other [facility] Other 05-01-2021 11:40-0400 Body temperature 96.4 [degF] Sonali Haddad Other [facility] Other 05-01-2021 11:40-0400 Body weight 86.18 kg Sonali Haddad Other [facility] Other 05-01-2021 11:40-0400 Diastolic blood pressure 71 mm[Hg] Sonali Haddad Other [facility] Other 05-01-2021 11:40-0400 Respiratory rate 18 /min Sonali Haddad Other [facility] Other 05-01-2021 11:40-0400 SaO2% (BldA) [Mass fraction] 99 % Sonali Haddad Other [facility] Other 05-01-2021 11:40-0400 Systolic blood pressure 161 mm[Hg] Sonali Haddad Other [facility] Other 06-07-2019 22:15-0500 Respiratory rate 12 /min JANETH HUTTON [facility] Comment on above: Performed By: #### [id number] ####[place] [id number] [place] [address], [facility] 06-07-2019 16:49-0500 Respiratory rate 12 /min JANETH HUTTON [facility] Comment on above: Order Comment: R/O Pneumothorax Performed By: #### [id number] ####[facility] Encounters Encounter Date Encounter Type Care Provider Facility Start: 07-28-2023 End: 07-28-2023 ambulatory Sonali Haddad [facility] Other Start: 07-28-2023 Office outpatient visit 15 minutes Sonali Haddad [facility] Start: 05-04-2023 ambulatory [facility] Start: 04-05-2023 End: 04-05-2023 ambulatory IS[facility] Start: 03-21-2023 End: 03-21-2023 ambulatory [facility] Start: 12-07-2022 End: 12-07-2022 ambulatory CHAMP [facility] Start: 11-30-2022 End: 11-30-2022 ambulatory SHAIKH Iván YOON Facility:[facility] Start: 11-17-2022 End: 11-18-2022 ambulatory SHAIKH Iván YOON Facility:[facility] Start: 11-14-2022 End: 11-15-[address] RAJENDRA FRANCO Facility:[facility] Start: 09-20-2022 End: 09-20-2022 ambulatory [facility] Start: 08-30-2022 End: 08-30-2022 ambulatory [facility] Start: 08-12-2022 End: 08-13-[address] DOCTOR LADD Facility:[facility] Start: 07-21-2022 End: 07-21-2022 ambulatory Kylah Valenzuela [facility] Other Start: 07-21-2022 Postop follow up vis it related to original px Kylah Valenzuela [facility] Start: 07-06-2022 End: 07-06-2022 ambulatory Idris Jose Facility:[facility] Start: 07-06-2022 End: 07-06-2022 Admission to same day surgery center MD Idris Jose Work Phone: [facility] [place] Start: 07-06-2022 End: 07-06-2022 ambulatory MD Idris Jose Work Phone: [facility] Work Phone: Start: 06-22-2022 End: 06-22-2022 ambulatory Idris Jose Facility:[facility] Start: 06-22-2022 End: 06-22-2022 ambulatory MD Idris Jose Work Phone: [facility] Work Phone: Start: 06-22-2022 End: 06-22-2022 Patient encounter procedure MD Idris Jose Work Phone: [facility]Pre[facility] Start: 06-10-2022 End: 06-10-2022 ambulatory EB SAHA [facility] Start: 06-02-2022 End: 06-02-2022 ambulatory Darien Escamilla [facility] Other Start: 06-02-2022 Office outpatient visit 25 minutes Darien Escamilla [facility] Start: 05-12-2022 End: 05-12-[address] EB BETANCOURT . Facility:[facility] Start: 04-19-2022 End: 04-20-[address] IDRIS JOSE Facility:[facility] Start: 04-02-2022 End: 04-03-[address] IDRIS JOSE Facility:[facility] Start: 03-18-2022 End: 03-18-2022 ambulatory Darien Escamilla Other [facility] Other Start: 03-18-2022 Office outpatient visit 15 minutes Darien Escamilla [facility] Start: 02-09-2022 End: 02-10-[address] IDRIS JOSE Facility:[facility] Start: 02-02-2022 End: 02-03-[address] ISH STOVER Facility:[facility] Start: 01-28-2022 ambulatory Facility:[id number] Start: 01-28-2022 End: 01-28-2022 ambulatory Idris Jose Facility:[facility] Start: 01-12-2022 ambulatory Facility:9 [id number] Start: 01-12-2022 End: 01-12-2022 ambulatory Idris Jose Facility:[facility] Start: 01-07-2022 End: 01-08-[address] DOCTOR LADD Facility:[facility] Start: 12-15-2021 End: 12-16-[address] PAPITO GUAMAN Facility:[facility] Start: 12-14-2021 End: 12-15-[address] IDRIS JOSE Facility:[facility] Start: 05-01-2021 Office outpatient visit 15 minutes Sonali Haddad [facility] Start: 06-07-2019 End: 06-13-2019 [facility] Procedures Date Procedure Procedure Detail Performing Clinician Start: 11-17-[address] RAJENDRA FRANCO Comment on above: Performed By: #### M G, BMP, URIC, ALB, PHOS #### [facility] [address] [place] [address] Dr. Terence Love Start: 09-20-2022 Follow-up visit Follow-up ORLANDO ABDON ROBERTS Start: 07-06-2022 Decompression of med yakelin nerve MD Idris Jose Work Phone: Start: 12-14-[address] RAJENDRA FRANCO Comment on above: Performed By: #### M G, BMP, URIC, ALB, PHOS #### [facility] [address] [place] [address] Dr. Terence Love Start: 06-12-2019 INSERTION OF PACEMAK ER LEAD INTO R VENTRICLE, PERC APPROACH GILBERTO MANNING Start: 06-11-2019 INSERT PACE. DUAL CH AM IN CHEST SUBCU/FASCIA, OPEN BRYAN CURTIS Start: 06-11-2019 INSERTION OF PACEMAK ER LEAD INTO R VENTRICLE, PERC APPROACH GILBERTO MANNING Start: 06-11-2019 INSERTION OF PACEMAK ER LEAD INTO RIGHT ATRIUM, PERC APPROACH BRYANSkip CURTIS Start: 06-07-2019 EXTIRPATION OF MATTE R FROM RIGHT PLEURA, OPEN APPROACH JANETH MASROOR Start: 06-07-2019 MEASURE OF ARTERIAL SATURATION, PERIPHERAL, PERC APPROACH JANETH MASROOR Start: 06-07-2019 Performance of Cardi ac Output, Continuous JANETH MASROOR Start: 06-07-2019 REPLACEMENT OF AORTI C VALVE WITH AUTOL SUB, OPEN APPROACH JANETH MASROOR Start: 06-07-2019 TRANSFUSE NONAUT FRO BRIJESH PLASMA IN PERIPH VEIN, PERC JANETH MASROOR Start: 06-07-2019 TRANSFUSE NONAUT RED BLOOD CELLS IN PERIPH VEIN, PERC JANETH MASROOR Start: 06-07-2019 ULTRASONOGRAPHY OF R IGHT AND LEFT HEART, TRANSESOPHAGEAL MINE DOBBINS Plan of Treatment Date Care Activity Detail Author Start: 07-06-2022 End: 07-06-2022 [facility] Patient referral [facility] Work Phone: Immunizations Immunization Date Immunization Notes Care Provider Fa [facility]3]ty 05-06-2022 COVID-19 mRNA Bivale nt Booster (Moderna) MD Idris Jose Work Phone: [facility] 09-02-2020 COVID-19 mRNA-1273 (Moderna) MD Idris Jose Work Phone: [facility] 08-05-2020 COVID-19 mRNA-1273 (Moderna) MD Idris Jose Work Phone: [facility] Payers Date Payer Category Payer Self-pay [id number] 1961 Medicare [id number] 1961 Private Health Insurance [id number] 1945 Unknown [id number] [id number] 47 1945 Unknown [id number] 2.16.840.1.935789.3.579.2.3 56 1945 Unknown [id number] 2.16.840.1.667235.3.579.2.3 56 1945 Unknown [id number] 2.16.840.1.305727.3.579.2.5 93 1943 Unknown [id number] 2.16.840.1.681154.3.579.2.5 93 1943 Unknown [id number] 2.16.840.1.349663.3.579.2.5 93 1943 Unknown [id number] 2.16.840.1.695552.3.579.2.5 93 1943 Unknown [id number] 2.16.840.1.513141.3.579.2.5 93 1943 Unknown [id number] 2.16.840.1.413926.3.579.2.5 93 1943 Unknown [id number] 2.16.840.1.875597.3.579.2.5 93 1943 Unknown [id number] 2.16.840.1.597153.3.579.2.5 93 1943 Unknown [id number] 2.16.840.1.778904.3.579.2.5 93 1943 Unknown [id number] 2.16.840.1.601363.3.579.2.5 93 1943 Unknown [id number] 2.16.840.1.921380.3.579.2.5 93 1943 Unknown [id number] 2.16.840.1.082142.3.579.2.5 93 Medicare [id number] Private Health Insurance Unknown [employer] Benefit [id number] Unknown [id number] Unknown [id number] 31 Unknown [id number] 31 Unknown [id number] 31 Social History Date Type Detail Facility Unknown if ever smoked [employer] Other Sex Assigned At Sex Assigned At Bir th [employer] Other Start: 06-22-2022 End: 07-06-2022 Tobacco smoking status PRIS Ex-smoker (finding) [facility] Start: 1945 Sex Assigned At Male F [facility] Medical Equipment Procedure Code Equipment Code Equipment Origin al Text Equipment Identifier Dates Intervertebral-b yosvany internal spinal fixation system [id number] FDA Start: 04-29-2020 Spinal fixation plate, non-bioabsorbable ()[id number] FDA Start: 04-29-2020 Spinal fixation plate, non-bioabsorbable ()[id number] FDA Start: 05-01-2020 Spinal fixation plate, non-bioabsorbable ()[id number] FDA Start: 04-29-2020 Goals Date Patient Goal Desired Activity /State Clinical Notes 05-01-2021 to 07-28-2023 Note Date & Type Note Facility 07-28-2023 Evaluation note Encounter Date Diagnosis Assessment Notes Jul, Open bite of left hand, initial encounter (ICD-10 - S61.452A) Keep the wound clean and dry. Apply antibiotic ointment and a dressing to the wound daily. Take Tylenol as needed for pain. Take the amoxicillin with clavulanate as prescribed until gone. Follow-up with your primary care physician or go to the ER for any signs of fever chills drainage pain or any other concerns. Jul, Bitten by cat, initial encounter (ICD-10 - W55.01XA) [employer] Other 11-02-2023 NoteCardiology Clinic Note Subjective Jason Bartholomew is a 77 y.o. year old male patientWith past medical history of heart failure preserved ejection fraction, hypertension, paroxysmal atrial fibrillation status post ablation on Xarelto, aortic valve stenosis status post bioprosthetic AVR, and stage III CKD seen in follow-up. Patient Active Problem List Diagnosis Aortic valve stenosis Carcinoma of prostate (CMS/HCC) Carotid atherosclerosis Essential hypertension History of deep vein thrombosis Stage 3 chronic kidney disease (CMS/HCC) Type 2 diabetes mellitus (CMS/HCC) Paroxysmal atrial fibrillation (CMS/HCC) Arthritis of right knee Laceration of left lower extremity Laceration without foreign body, left lower leg, initial encounter Osteoarthritis of knee CHF (congestive heart failure), NYHA class III, acute on chronic, diastolic (CMS/HCC) Chronic rhinitis Hematospermia Family History Problem Relation Name Age of Onset Heart failure Mother Stroke Brother Heart failure Brother Social History Tobacco Use Smoking status: Former Years: 10.00 Types: Cigarettes Quit date: 1959 Years since quittin.8 Smokeless tobacco: Never Substance Use Topics Alcohol use: Yes Comment: OCCASIONAL Update: 05/04/2023 Here for sick visit to follow-up on hypotension Blood pressure was systolic in the 70s prior to appointment, BP here is 155 systolic He has a wrist monitor He has had intermittent lightheadedness Review of Systems Cardiovascular: Negative for chest pain, dyspnea on exertion, irregular heartbeat and leg swelling. Neurological: Positive for light-headedness. Objective Visit Vitals BP 155/72 (BP Location: Right arm, Patient Position: Sitting) Pulse 79 Ht 1.753 m (5' 9 ) Wt 87.5 kg (193 lb) SpO2 99% BMI 28.50 kg/m??? Smoking Status Former BSA 2.06 m??? Physical Exam General: Awake, alert, NAD Pulm: Breath sounds clear to ascultation bilaterally with no wheeze, crackles or rhonchi Cards: Regular rate and rhythm, S1, S2. No S3 or S4 gallop. Murmur: none Extr: Lower extremity edema: None. Skin: warm, dry, well perfused Neuro: A&Ox3, No gross deficits Allergies Allergies Allergen Reactions Sulfa (Sulfonamide Antibiotics) Swelling Medications Current Outpatient Medications: aspirin 81 mg EC tablet, Take 1 tablet by mouth in the morning., Disp: , Rfl: atorvastatin (Lipitor) 40 mg tablet, Take 1 tablet by mouth in the evening., Disp: , Rfl: azelastine-fluticasone 137-50 mcg/spray spray,non-aerosol, INSTILL 2 SPRAYS INTO EACH NOSTRIL 2 TIMES DAILY, Disp: , Rfl: carvedilol (Coreg) 25 mg tablet, Take 6.25 tablets by mouth in the morning and at bedtime., Disp: , Rfl: famotidine (Pepcid) 20 mg tablet, Take 1 tablet (20 mg) by mouth in the morning and at bedtime., Disp: 60 tablet, Rfl: 0 furosemide (Lasix) 20 mg tablet, Take 1 tablet (20 mg) by mouth with breakfast and with evening meal., Disp: 180 tablet, Rfl: 3 gabapentin (Neurontin) 600 mg tablet, Take 1 tablet by mouth in the morning, at noon, and at bedtime., Disp: , Rfl: glimepiride (Amaryl) 2 mg tablet, Take 1 tablet by mouth with breakfast., Disp: , Rfl: montelukast (Singulair) 10 mg tablet, Take 1 tablet by mouth in the morning., Disp: , Rfl: omeprazole (PriLOSEC) [address] capsule, Take 20 mg by mouth in the morning and 20 mg in the evening., Disp: , Rfl: pantoprazole (ProtoNix) 40 mg EC tablet, Take 1 tablet twice a day by oral route for 90 days., Disp: , Rfl: pioglitazone (Actos) 30 mg tablet, Take 30 mg by mouth in the morning., Disp: , Rfl: rOPINIRole (Requip) 0.25 mg tablet, Take 1 tablet as needed by oral route for 90 days., Disp: , Rfl: tamsulosin (Flomax) 0.4 mg 24 hr capsule, Take 1 capsule as needed by oral route for 90 days., Disp: , Rfl: Xarelto 20 mg tablet, TAKE 1 TABLET WITH EVENING MEAL, TAKE WITH FOOD, Disp: 90 tablet, Rfl: 3 hydrALAZINE (Apresoline) 25 mg tablet, TAKE 1 TABLET IN THE MORNING AND AT BEDTIME (Patient not taking: Reported on 05/04/2023), Disp: 180 tablet, Rfl: 3 Recent Labs 02/10/2023 Hemoglobin 12.7, hematocrit 38.2, Sodium 137, potassium 4, chloride 99, CO2 30.2, serum creatinine one-point1.79, estimated GFR 37%, magnesium 1.8 Imaging and other tests ECHO (04/21/2022) Left Ventricle: The left ventricle is normal size. The EF is 55 % visually. Right Ventricle: The right ventricle is normal in size. Right ventricular systolic function appears normal. Left Atrium: The left atrium is moderately to severely enlarged. Left Atrium Appendage: Normal left atrial appendage, no thrombus seen. Aortic Valve: Doppler flows of the prosthetic aortic valve are abnormally high, however with short acceleration time of 92 msec and DVI of 0.45 and a calculated ALEJANDRO 1.35cm2 and iEOA of 0.67 denoting the possibility of PPM (Patient prothesis mismatch) as the cause of the elevated velocity. EP study 04/2022 EP study LA baseline (more content not included)...[facility] 05-04-2023 NotePatient here today c/o hypotension and lightheadedness. BP before he came today was 78/51. Says he's taking carvedilol 6.25mg bid. Denies chest pain, SOB, and bleeding on warfarin. Review of Systems Gastrointestinal: Positive for heartburn. Neurological: Positive for light-headedness. All other systems reviewed and are negative.[facility] Chief Complaint: Patient here for 4 mo follow up acute on chronic diastolic heart failure, aortic valve stenosis, hypertension, and PAF. He had echo last week. Denies chest pain and bleeding on Xarelto. Says his HAJI remains unchanged. HPI: Florencio Bartholomew is a 77 y.o. male With a history of aortic valve stenosis s/p bioprosthetic aortic valve replacement here in routine follow-up He has been doing fairly well. He tells me of problems with his cervical spine that apparently occurred after a fall during his hospitalization for valve replacement. 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 This makes his walk challenging. He appears to be deconditioned because of it. He denies chest pain, he has had no palpitations, he denies orthopnea or paroxysmal tunnel dyspnea. He has had no significant lower extremity edema although because of the neurological deficits his right leg tends to swell up. His shortness of breath has been stable since his valve surgery. He does not believe this is worsened. He has not gained any unintentional weight and indeed has lost weight recently. Cardiology ROS: Review of Systems Cardiovascular: Positive for dyspnea on exertion. Hematologic/Lymphatic: Bruises/bleeds easily. Musculoskeletal: Positive for muscle weakness and myalgias. Neurological: Positive for light-headedness. All other systems reviewed and are negative. Past Medical History He has a past medical history of Atrial fibrillation (CMS/HCC), Cedeño's palsy, BPH (benign prostatic hyperplasia), Coronary artery disease, Diabetes mellitus (CMS/HCC), GERD (gastroesophageal reflux disease), Hyperlipidemia, and Hypertension. Surgical History He has a past surgical history that includes Appendectomy; Carotid endarterectomy; Cardiac valve replacement; Shoulder surgery; Insert / replace / remove pacemaker; and Carpal tunnel release (Left, 07/06/2022). Social History He reports that he quit smoking about 63 years ago. His smoking use included cigarettes. He has never used smokeless tobacco. He reports current alcohol use. No history on file for drug use. Family History Family History Problem Relation Name Age of Onset Heart failure Mother Stroke Brother Heart failure Brother Allergies Sulfa (sulfonamide antibiotics) Medications Current Outpatient Medications: aspirin 81 mg EC tablet, Take 1 tablet by mouth in the morning., Disp: , Rfl: atorvastatin (Lipitor) 40 mg tablet, Take 1 tablet by mouth in the evening., Disp: , Rfl: azelastine-fluticasone 137-50 mcg/spray spray,non-aerosol, INSTILL 2 SPRAYS INTO EACH NOSTRIL 2 TIMES DAILY, Disp: , Rfl: carvedilol (Coreg) 25 mg tablet, Take 1 tablet by mouth in the morning and at bedtime., Disp: , Rfl: famotidine (Pepcid) 20 mg tablet, Take 1 tablet (20 mg) by mouth in the morning and at bedtime., Disp: 60 tablet, Rfl: 0 furosemide (Lasix) 20 mg tablet, Take 1 tablet (20 mg) by mouth with breakfast and with evening meal., Disp: 60 tablet, Rfl: 3 gabapentin (Neurontin) 600 mg tablet, Take 1 tablet by mouth in the morning, at noon, and at bedtime., Disp: , Rfl: glimepiride (Amaryl) 2 mg tablet, Take 1 tablet by mouth with breakfast., Disp: , Rfl: hydrALAZINE (Apresoline) 25 mg tablet, TAKE 1 TABLET IN THE MORNING AND AT BEDTIME, Disp: 180 tablet, Rfl: 3 montelukast (Singulair) 10 mg tablet, Take 1 tablet by mouth in the morning., Disp: , Rfl: omeprazole (PriLOSEC) [address] capsule, Take 20 mg by mouth in the morning and 20 mg in the evening., Disp: , Rfl: pioglitazone (Actos) 30 mg tablet, Take 30 mg by mouth in the morning., Disp: , Rfl: rOPINIRole (Requip) 0.25 mg tablet, Take 1 tablet as needed by oral route for 90 days., Disp: , Rfl: tamsulosin (Flomax) 0.4 mg 24 hr capsule, Take 1 capsule as needed by oral route for 90 days., Disp: , Rfl: Xarelto 20 mg tablet, TAKE 1 TABLET WITH EVENING MEAL, TAKE WITH FOOD, Disp: 90 tablet, Rfl: 3 Last Recorded Vitals BP 152/86 (BP Location: Left arm, Patient Position: Sitting) Pulse 80 Ht 1.753 m (5' 9 ) Wt 87.5 kg (193 lb) SpO2 97% BMI 28.50 kg/m??? Physical Examination: GENERAL: alert and oriented x3, well developed, in no acute distress. HEAD: atraumatic, normocephalic. EYES: JYOTHI, EOMI. NECK: trachea midline, no JVD present, no carotid bruits present. CARDIAC: S1, S2 present. RRR. Harsh, ejection systolic murmur heard best over the second right intercostal space with radiation to the right carotid. RESPIRATORY: CTAB, no increased effort of breathing, no rales, rhonchi, or wheezing. ABDOMEN: soft, nontender, nondistended. EXTREMITIES: no lower extremity edema, peripheral pulses are 2+ bilaterally. No rash/skin discoloration present. NEURO: strength/sensation equal and symmetric in bilateral upper and lower extremities. PSYCH: appropriate mood, affect, and judgement. In (more content not included)...[facility]06-07-2023 NotePatient here for 1 week follow up CHF. His lasix was increased to 20mg bid at last apt. He is down 8# since last visit. He is breathing better and LE edema is much better. Review of Systems Constitutional: Positive for weight loss (8# since 11/30/2022). Cardiovascular: Positive for dyspnea on exertion (improving) and leg swelling (improving). Musculoskeletal: Positive for arthritis and joint pain. Gastrointestinal: Positive for heartburn. Neurological: Positive for light-headedness. All other systems reviewed and are negative.[facility] 12-07-2022 NoteCardiovascular Medicine [facility] SUBJECTIVE Chief Complaint Patient presents with Congestive Heart Failure Jason Bartholmoew is a 77 y.o. male here for follow-up. HPI Patient here for 1 week follow up CHF. His lasix was increased to 20mg bid at last apt. He is down 8# since last visit. He is breathing better and LE edema is much better. His BP is elevated today. He reports he just took his medications about 30 mins prior to appt. He admits he is currently taking ibuprofen daily for his hip pain. Advised he avoid ibuprofen/motrion/aleve/naproxen as this can elevate his BP. Recommended switching to tylenol, can take 1000mg [id number]. He states he is feeling much better since we saw him last week. His leg swelling and breathing are better. He denies CP, orthopnea, palpitations. Last HPI per LITA Saha: Jason Bartholomew is a 77 y.o. male here for ble edema, SOB. Admits weight gain, leg swelling and orthopnea. He saw PCP last week and started lasix 40 mg daily- he decreased it to 20 mg daily r/t dizziness and low b/p. States leg swelling is a bit better than last week. Currently he is up 4 pounds from his visit in Jun. He does not follow a fluid restriction, or sodium restriction. States last night he had a couple beers (2) with Cracklins (fried pork fat). States this week he had peanuts and I looked at the label and there is not that much salt. Previous HPI per Dr Tellez Pt had afib ablation on 04/21/2022 Patient had a device check performed on 08/30/2022 this revealed that his A-fib burden is nil since ablation. Thresholds are good. He is paced in the atrium 42% of the time and 3.4% in the ventricle. Echocardiogram on 06/16/2021 shows EF of 55%04/21/2022 Patient Active Problem List Diagnosis Aortic valve stenosis Carcinoma of prostate (CMS/HCC) Carotid atherosclerosis Essential hypertension History of deep vein thrombosis Stage 3 chronic kidney disease (CMS/HCC) Type 2 diabetes mellitus (CMS/HCC) Paroxysmal atrial fibrillation (CMS/HCC) Arthritis of right knee Laceration of left lower extremity Laceration without foreign body, left lower leg, initial encounter Osteoarthritis of knee CHF (congestive heart failure), NYHA class III, acute on chronic, diastolic (CMS/HCC) Past Medical History: Diagnosis Date Atrial fibrillation (CMS/HCC) Cedeño's palsy BPH (benign prostatic hyperplasia) Coronary artery disease Diabetes mellitus (CMS/HCC) GERD (gastroesophageal reflux disease) Hyperlipidemia Hypertension Family History Problem Relation Name Age of Onset Heart failure Mother Stroke Brother Heart failure Brother Social History Tobacco Use Smoking status: Former Years: 10.00 Types: Cigarettes Quit date: 1959 Years since quittin.4 Smokeless tobacco: Never Substance Use Topics Alcohol use: Yes Comment: OCCASIONAL Allergies Allergen Reactions Sulfa (Sulfonamide Antibiotics) Swelling ROS Constitutional: Positive for weight loss (8# since 11/30/2022). Cardiovascular: Positive for dyspnea on exertion (improving) and leg swelling (improving). Musculoskeletal: Positive for arthritis and joint pain. Gastrointestinal: Positive for heartburn. Neurological: Positive for light-headedness. All other systems reviewed and are negative. OBJECTIVE Visit Vitals BP 162/77 (BP Location: Left arm, Patient Position: Sitting) Pulse 90 Ht 1.753 m (5' 9 ) Wt 86.2 kg (190 lb) SpO2 98% BMI 28.06 kg/m??? Smoking Status Former BSA 2.05 m??? Medications: Current Outpatient Medications: aspirin 81 mg EC tablet, Take 1 tablet by mouth in the morning., Disp: , Rfl: atorvastatin (Lipitor) 40 mg tablet, Take 1 tablet by mouth in the evening., Disp: , Rfl: azelastine-fluticasone 137-50 mcg/spray spray,non-aerosol, INSTILL 2 SPRAYS INTO EACH NOSTRIL 2 TIMES DAILY, Disp: , Rfl: carvedilol (Coreg) 25 mg tablet, Take 1 tablet by mouth in the morning and at bedtime., Disp: , Rfl: furosemide (Lasix) 20 mg tablet, Take 1 tablet (20 mg) by mouth with breakfast and with evening meal., Disp: 60 tablet, Rfl: 3 gabapentin (Neurontin) 600 mg tablet, Take 1 tablet by mouth in the morning, at noon, and at bedtime., Disp: , Rfl: glimepiride (Amaryl) 2 mg tablet, Take 1 tablet by mouth with breakfast., Disp: , Rfl: hydrALAZINE (Apresoline) 25 mg tablet, Take 1 tablet (25 mg) by mouth in the morning and at bedtime., Disp: 180 tablet, Rfl: 3 montelukast (Singulair) 10 mg tablet, Take 1 tablet by mouth in the morning., Disp: , Rfl: omeprazole (PriLOSEC) [address] capsule, Take 20 mg by mouth in the morning and 20 mg in the evening., Disp: , Rfl: pioglitazone (Actos) 30 mg tablet, Take 30 mg by mouth in the morning., Disp: , Rfl: rivaroxaban (Xarelto) 20 mg tablet, Take 1 tablet (20 mg) by mouth with evening meal. Take with food., Disp: 90 tablet, Rfl: 3 r (more content not included)...[facility]05-31-2023 NoteCurrently in sinus rhythm per EKG today. Continue coreg and xarelto anticoagulationUnThe [facility] 11-30-2022 NoteHypertension is stable- D/W pt that his low b/p is not really hypotensive.[facility]05-31-2023 NoteNYHC III- SOB with ADLs, minimal exertion. + edema and weight gain with CKD Continue GDMT- Asked pt to increase lasix back to 40 mg daily or 20 mg bid. He is currently taking 20 mg daily r/t low b/p and dizziness B/P 116/70 at home Had extended d/w pt regarding low sodium diet, and fluid restriction of 1.5-2L/day, and to weight himself daily- call office for weight gain of 2 pounds in 1 day or 5 pounds in 1 week- he voiced understanding Monitor daily weights, I&O, fluid restriction 1.5-2L/day, renal function and electrolytes- please maintain K+>4 and Mg > 2UnThe [facility] 11-30-2022 NoteF/U with nephrologyUnThe [facility]05-31-2023 NotePatient here c/o LE edema and increased SOB. Dr. Yoon started him on lasix 40mg recently. Then it was cut down to 20mg daily. He does get a little lightheaded from the furosemide, but it is better with loser dose. Had labs and CXR 2 weeks ago, and labs again this afternoon. Review of Systems Cardiovascular: Positive for dyspnea on exertion and leg swelling. Gastrointestinal: Positive for heartburn. All other systems reviewed and are negative.[facility] 11-30-2022 NoteUTP CARDIOLOGY PROGRESS NOTE HPI: Jason Bartholomew is a 77 y.o. male here for ble edema, SOB. Admits weight gain, leg swelling and orthopnea. He saw PCP last week and started lasix 40 mg daily- he decreased it to 20 mg daily r/t dizziness and low b/p. States leg swelling is a bit better than last week. Currently he is up 4 pounds from his visit in Jun. He does not follow a fluid restriction, or sodium restriction. States last night he had a couple beers (2) with Cracklins (fried pork fat). States this week he had peanuts and I looked at the label and there is not that much salt. Review of Systems Constitutional: Negative. Respiratory: Positive for shortness of breath. + orthopnea Cardiovascular: Positive for leg swelling. Negative for chest pain and palpitations. Neurological: Negative. All other systems reviewed and are negative. Previous HPI per Dr Tellez Pt had afib ablation on 04/21/2022 Patient had a device check performed on 08/30/2022 this revealed that his A-fib burden is nil since ablation. Thresholds are good. He is paced in the atrium 42% of the time and 3.4% in the ventricle. Echocardiogram on 06/16/2021 shows EF of 55%04/21/2022 EP study LA baseline (mmHg) 1st and 2nd 19/11 (HR 100bpm), 21/6 LA 600ms pacing (mmHg) NA LA 550ms pacing (mmHg) NA AHms 111 HVms 70 VERPms 600/240, VA condunction- AV Wenkebach ms 430 AH jump ms NA AVNERP ms Straight to AVNERP AERP ms 600/250 POST PROCEDURE DIAGNOSIS 1. Persistent atrial fibrillation s/p PVI ([facility]). 2. Atrial flutter s/p CTI ablation, confirmed block. 3. EP study revealing no VA conduction. 4. No inducible arrhythmia with Adenosine. 5. Mildly elevated LA filling pressures with tachycardia Prior HPI: Jason Bartholomew is a 77 y.o. year old with past medical history of aortic valve stenosis s/p AVR, CAD, hypertension, recent admission to [facility] ED in December for possible stroke like symptoms and was discharged with Dx of Cedeño's Palsy. Since then he has been feeling reasonably well. He has some weakness of the left arm because of his underlying cervical neuropathy. Device check that was performed by me personally reveals the patient to have atrial fibrillation on numerous occasions. His last episode was noted on 03/18/2022 where he was in A. fib most of the day. Patient does endorse some fatigue. Visit Vitals BP 136/78 (BP Location: Left arm, Patient Position: Sitting) Pulse 71 Ht 1.753 m (5' 9 ) Wt 89.8 kg (198 lb) SpO2 97% BMI 29.24 kg/m??? Smoking Status Former BSA 2.09 m??? Allergies Allergen Reactions Sulfa (Sulfonamide Antibiotics) Swelling Medications: Current Outpatient Medications on File Prior to Visit Medication Sig Dispense Refill aspirin 81 mg EC tablet Take 1 tablet by mouth in the morning. atorvastatin (Lipitor) 40 mg tablet Take 1 tablet by mouth in the evening. azelastine-fluticasone 137-50 mcg/spray spray,non-aerosol INSTILL 2 SPRAYS INTO EACH NOSTRIL 2 TIMES DAILY carvedilol (Coreg) 25 mg tablet Take 1 tablet by mouth in the morning and at bedtime. furosemide (Lasix) 40 mg tablet Take 20 mg by mouth in the morning. gabapentin (Neurontin) 600 mg tablet Take 1 tablet by mouth in the morning, at noon, and at bedtime. glimepiride (Amaryl) 2 mg tablet Take 1 tablet by mouth with breakfast. montelukast (Singulair) 10 mg tablet Take 1 tablet by mouth in the morning. omeprazole (PriLOSEC) [address] capsule Take 20 mg by mouth in the morning and 20 mg in the evening. pioglitazone (Actos) 30 mg tablet Take 30 mg by mouth in the morning. rivaroxaban (Xarelto) 20 mg tablet Take 1 tablet (20 mg) by mouth with evening meal. Take with food. 90 tablet 3 rOPINIRole (Requip) 0.25 mg tablet Take 1 tablet as needed by oral route for 90 days. tamsulosin (Flomax) 0.4 mg 24 hr capsule Take 1 capsule as needed by oral route for 90 days. famotidine (Pepcid) 20 mg tablet Take 1 tablet (20 mg) by mouth in the morning and at bedtime. 60 tablet 0 hydrALAZINE (Apresoline) 25 mg tablet Take 1 tablet (25 mg) by mouth in the morning and at bedtime. 180 tablet 3 [DISCONTINUED] oxyCODONE (Roxicodone) 5 mg immediate release tablet TAKE 1 TO 2 TABLET(S) BY MOUTH EVERY 6 HOURS NEEDED FOR PAIN [DISCONTINUED] pantoprazole (ProtoNix) 40 mg EC tablet [DISCONTINUED] torsemide (Demadex) 5 mg tablet Take 5 mg by mouth in the morning. [DISCONTINUED] valACYclovir (Valtrex) 1 gram tablet Take 1,000 mg by mouth every 8 (eight) hours. No current facility-administered medications on file prior to visit. Physical Exam: Constitutional: Appearance: Normal appearance. Without apparent distress, obese, chronically ill HENT: Head: Normocephalic and atraumatic. Nose: Nose normal. Mouth/Throat: Mouth: Mucous membranes are moist. Eyes: Extraocular Movements: Extraocular movements intact. Conjunctiva/sclera: Conjunctivae normal. Neck: Vascular: No JVD. Cardiovascular: Rate and Rhythm: (more content not included)...[facility]03-21-2023 NoteUT Electrophysiology Consult Note Reason for Consultation: Afib Pt had afib ablation on 04/21/2022 Patient had a device check performed on 08/30/2022 this revealed that his A-fib burden is nil since ablation. Thresholds are good. He is paced in the atrium 42% of the time and 3.4% in the ventricle. Echocardiogram on 06/16/2021 shows EF of 55%04/21/2022 EP study LA baseline (mmHg) 1st and 2nd 19/11 (HR 100bpm), / LA 600ms pacing (mmHg) NA LA 550ms pacing (mmHg) NA AHms 111 HVms 70 VERPms 600/240, VA condunction- AV Wenkebach ms 430 AH jump ms NA AVNERP ms Straight to AVNERP AERP ms 600/250 POST PROCEDURE DIAGNOSIS 1. Persistent atrial fibrillation s/p PVI ([facility]). 2. Atrial flutter s/p CTI ablation, confirmed block. 3. EP study revealing no VA conduction. 4. No inducible arrhythmia with Adenosine. 5. Mildly elevated LA filling pressures with tachycardia Prior HPI: Jason Bartholomew is a 77 y.o. year old with past medical history of aortic valve stenosis s/p AVR, CAD, hypertension, recent admission to [facility] ED in December for possible stroke like symptoms and was discharged with Dx of Cedeño's Palsy. Since then he has been feeling reasonably well. He has some weakness of the left arm because of his underlying cervical neuropathy. Device check that was performed by me personally reveals the patient to have atrial fibrillation on numerous occasions. His last episode was noted on 03/18/2022 where he was in A. fib most of the day. Patient does endorse some fatigue. PMH: Past Medical History: Diagnosis Date Atrial fibrillation (CMS/HCC) Cedeño's palsy BPH (benign prostatic hyperplasia) Coronary artery disease Diabetes mellitus (CMS/HCC) GERD (gastroesophageal reflux disease) Hyperlipidemia Hypertension As above PSH: Past Surgical History: Procedure Laterality Date APPENDECTOMY CARDIAC VALVE REPLACEMENT CAROTID ENDARTERECTOMY CARPAL TUNNEL RELEASE Left 07/06/2022 INSERT / REPLACE / REMOVE PACEMAKER SHOULDER SURGERY SH: Social Determinants of Health Tobacco Use: Medium Risk Smoking Tobacco Use: Former Smokeless Tobacco Use: Never Passive Exposure: Not on file Alcohol Use: Not on file Financial Resource Strain: Not on file Food Insecurity: Not on file Transportation Needs: Not on file Physical Activity: Not on file Stress: Not on file Social Connections: Not on file Intimate Partner Violence: Not on file Depression: Not on file Housing Stability: Not on file Meds: Current Outpatient Medications on File Prior to Visit Medication Sig Dispense Refill aspirin 81 mg EC tablet Take 1 tablet by mouth in the morning. atorvastatin (Lipitor) 40 mg tablet Take 1 tablet by mouth in the evening. azelastine-fluticasone 137-50 mcg/spray spray,non-aerosol INSTILL 2 SPRAYS INTO EACH NOSTRIL 2 TIMES DAILY carvedilol (Coreg) 25 mg tablet Take 1 tablet by mouth in the morning and at bedtime. gabapentin (Neurontin) 600 mg tablet Take 1 tablet by mouth in the morning, at noon, and at bedtime. glimepiride (Amaryl) 2 mg tablet Take 1 tablet by mouth with breakfast. montelukast (Singulair) 10 mg tablet Take 1 tablet by mouth in the morning. omeprazole (PriLOSEC) [address] capsule Take 20 mg by mouth in the morning and 20 mg in the evening. pantoprazole (ProtoNix) 40 mg EC tablet pioglitazone (Actos) 30 mg tablet Take 30 mg by mouth in the morning. rivaroxaban (Xarelto) 20 mg tablet Take 1 tablet (20 mg) by mouth with evening meal. Take with food. 90 tablet 3 rOPINIRole (Requip) 0.25 mg tablet Take 1 tablet as needed by oral route for 90 days. tamsulosin (Flomax) 0.4 mg 24 hr capsule Take 1 capsule as needed by oral route for 90 days. torsemide (Demadex) 5 mg tablet Take 5 mg by mouth in the morning. famotidine (Pepcid) 20 mg tablet Take 1 tablet (20 mg) by mouth in the morning and at bedtime. 60 tablet 0 hydrALAZINE (Apresoline) 25 mg tablet Take 1 tablet (25 mg) by mouth in the morning and at bedtime. (Patient not taking: No sig reported) 180 tablet 3 oxyCODONE (Roxicodone) 5 mg immediate release tablet TAKE 1 TO 2 TABLET(S) BY MOUTH EVERY 6 HOURS NEEDED FOR PAIN valACYclovir (Valtrex) 1 gram tablet Take 1,000 mg by mouth every 8 (eight) hours. No current facility-administered medications on file prior to visit. ROS: Cardio Basic Cardiovascular Symptoms: no lightheadedness, no leg edema, no syncope, no orthopnea, Positive for orthopnea. Constitutional: no fever, no night sweats, no significant weight gain, no significant weight loss, no exercise intolerance Eyes Eyes: no dry eyes, no irritation, no vision change ENMT Ears: no difficulty hearing, no ear pain Nose: no frequent nosebleeds, Mouth/Throat: no sore throat, no bleeding gums, no snoring, no dry mouth, no mouth ulcers, no oral abnormalities, no teeth problems Respiratory Respiratory: no cough, no wheezing, no coughing up blood, no sleep apnea Musculoskeletal Mus (more content not included)...[facility]01-19-2023 Evaluation note* Encounter Date Diagnosis Assessment Notes Treatment Notes Treatment Clinical Notes Jul, Status post carpal tunnel release (ICD-10 - Z98.890) Mr Bartholomew is doing well. 3 sutures removed. Edcuation completed to continue strenghting hands with exercises given. Patient can be return on as needed basis [employer] Other 12-09-2022 NoteP A fib s/p A fib ablation with Dr Tellez Remains on xarelto anticoagulation, and coreg. EKG today sinus rhythm with Rt BBB- Lt axis deviation.[facility]12-09-2022 NotePatient here for follow up afib ablation on 04/[address] Tellez. Had some melanoma removed from his chest and has been bleeding heavily. He was started on hydralazine in Apr and isn't sure if he's still taking it. Review of Systems Cardiovascular: Positive for palpitations. Hematologic/Lymphatic: Bruises/bleeds easily. Musculoskeletal: Positive for muscle weakness. Neurological: Positive for headaches. All other systems reviewed and are negative.[facility] 06-10-2022 NoteUTP CARDIOLOGY PROGRESS NOTE HPI: Jason Bartholomew is a 76 y.o. male here for Atrial Fibrillation, Valve Disorder, and Coronary Artery Disease Presents today for f/U s/p recent a fib ablation. Denied chest pain, shortness of breath, orthopnea, palpiations. States he had Lt upper chest basal cell CA removed this week and site continues to ooze/bleed. Denied leg pain/groin pain, fever, chills, Abd or back pain. States b/p at home is well controlled- 120/70 Visit Vitals BP (!) 190/93 (BP Location: Right arm, Patient Position: Sitting) Pulse 82 Ht 1.753 m (5' 9 ) Wt 88 kg (194 lb) SpO2 97% BMI 28.65 kg/m??? Smoking Status Former BSA 2.07 m??? Allergies Allergen Reactions Sulfa (Sulfonamide Antibiotics) Swelling Medications: Current Outpatient Medications on File Prior to Visit Medication Sig Dispense Refill aspirin 81 mg EC tablet Take 1 tablet by mouth in the morning. atorvastatin (Lipitor) 40 mg tablet Take 1 tablet by mouth in the evening. azelastine-fluticasone 137-50 mcg/spray spray,non-aerosol INSTILL 2 SPRAYS INTO EACH NOSTRIL 2 TIMES DAILY carvedilol (Coreg) 25 mg tablet Take 1 tablet by mouth in the morning and at bedtime. gabapentin (Neurontin) 600 mg tablet Take 1 tablet by mouth in the morning, at noon, and at bedtime. glimepiride (Amaryl) 2 mg tablet Take 1 tablet by mouth with breakfast. montelukast (Singulair) 10 mg tablet Take 1 tablet by mouth in the morning. pioglitazone (Actos) 30 mg tablet Take 30 mg by mouth in the morning. rivaroxaban (Xarelto) 20 mg tablet Take 1 tablet (20 mg) by mouth with evening meal. Take with food. 90 tablet 3 rOPINIRole (Requip) 0.25 mg tablet Take 1 tablet as needed by oral route for 90 days. tamsulosin (Flomax) 0.4 mg 24 hr capsule Take 1 capsule as needed by oral route for 90 days. famotidine (Pepcid) 20 mg tablet Take 1 tablet (20 mg) by mouth in the morning and at bedtime. 60 tablet 0 hydrALAZINE (Apresoline) 25 mg tablet Take 1 tablet (25 mg) by mouth in the morning and at bedtime. (Patient not taking: Reported on 06/10/2022) 180 tablet 3 [DISCONTINUED] blood sugar diagnostic strip [DISCONTINUED] doxazosin (Cardura) 4 mg tablet 1 (one) time each day at the same time. [DISCONTINUED] doxycycline (Vibramycin) 100 mg capsule doxycycline hyclate 100 mg capsule TAKE 1 CAPSULE BY MOUTH TWICE DAILY FOR 10 DAYS [DISCONTINUED] hydroCHLOROthiazide (HYDRODiuril) 50 mg tablet [DISCONTINUED] HYDROcodone-acetaminophen (Antimony) 5-325 mg tablet [DISCONTINUED] lisinopril 40 mg tablet [DISCONTINUED] nebivolol (Bystolic) 10 mg tablet [DISCONTINUED] omeprazole (PriLOSEC) [address] capsule Take 20 mg by mouth in the morning and 20 mg in the evening. [DISCONTINUED] pantoprazole (ProtoNix) 40 mg EC tablet Take 1 tablet twice a day by oral route for 90 days. [DISCONTINUED] potassium chloride CR (Klor-Con) 10 mEq ER tablet potassium chloride ER 10 mEq tablet,extended release TAKE 1 TABLET BY MOUTH DAILY NEEDED (take with lasix DAILY for the next 2-3 days, may take NEEDED for leg swelling and SHORTNESS OF BREATH) [DISCONTINUED] silver sulfADIAZINE (SSD) 1 % cream SSD 1 % topical cream APPLY a /16 (1.5mm) thick layer to entire burn area TWICE DAILY (topically) [DISCONTINUED] torsemide (Demadex) 5 mg tablet Take 5 mg by mouth in the morning. No current facility-administered medications on file prior to visit. Physical Exam: Constitutional: Appearance: Normal appearance. Without apparent distress HENT: Head: Normocephalic and atraumatic. Nose: Nose normal. Mouth/Throat: Mouth: Mucous membranes are moist. Eyes: Extraocular Movements: Extraocular movements intact. Conjunctiva/sclera: Conjunctivae normal. Neck: Vascular: No JVD. Cardiovascular: Rate and Rhythm: Normal rate and regular rhythm. Pulses: Dorsalis pedis pulses are 3 on the right side and 3on the left side. Posterior tibial pulses are 3 on the right side and 3 on the left side. Heart sounds: Normal heart sounds, S1 normal and S2 normal. Pulmonary: Effort: Pulmonary effort is normal. Breath sounds: Normal breath sounds. Abdominal: General: Bowel sounds are normal. Palpations: Abdomen is soft. Musculoskeletal: General: Normal range of motion. Cervical back: Normal range of motion. Right lower leg: No edema. Left lower leg: No edema. Skin: General: Skin is warm and dry. Capillary Refill: Capillary refill takes less than 2 seconds. Neurological: General: No focal deficit present. Mental Status: She is alert and oriented to person, place, and time. Psychiatric: Mood and Affect: Mood normal. Behavior: Behavior normal. Thought Content: Thought content normal. Judgment: Judgment normal. Labs: stable Last lab values have been reviewed CV Testin04/21/22 EP- PROCEDURES PERFORMED: 1. Sonosite guided venous access as noted below and images stored in PACS. 2. Comprehensive EP study and catheter ablation for pers (more content not included)...[facility]12-01-2022 Evaluation note* Encounter Date Diagnosis Assessment Notes Treatment Notes Treatment Clinical Notes Jun, Carpal tunnel syndrome, left (ICD-10 - G56.02) I independently reviewed the EMG which shows left carpal tunnel. Patient has a positive phalens test with worsening of daily activies with use of the left hand, and difficulty holding phone without numbness. I reviewed th EMG results face to face with the patient and discussed treatment options, along with risks and benefits of surgery. Risks and benefits include regional pain syndrome, incomplete relief of symptoms, nerve damage, and infection. Patient would like to proceed. Will schedule for surgery.The patient has comorbidity/pre-exist ing cardiac disease and will need cardiac clearance and to be off anticoagualtion thaerapy. Jun, half-way current use of anticoagulant therapy (ICD-10 - Z79.01) Jun, Primary hypertension (ICD-10 - I10) [employer] Other 09-16-2022 Evaluation note* Encounter Date Diagnosis Assessment Notes Treatment Notes Treatment Clinical Notes Mar, Cervical myelopathy (ICD-10 - G95.9) After a fall the patient had some change in numbness in his hands but the MRI today which was independently reviewed shows no evidence of significant cord compression. His postop x-ray actually looks good. The numbness in his hands seems to have gotten a little bit better since its initial event. He walks the same his arm function is the same. Mar, History of fusion of cervical spine (ICD-10 - Z98.1) Mar, Carpal tunnel syndrome, left (ICD-10 - G56.02) He is bothered by carpal tunnel on the left that continues to bother him nightly, multiple other times, and when doing certain daily activities. Given the symptoms he already has in his hands and the fact that this carpal tunnel is significant enough I would recommend a new EMG of the left upper extremity and then reevaluate this with him. The patient agrees. A referral will be sent [employer] Other 10-30-2021 Evaluation note* Encounter Date Diagnosis Assessment Notes Treatment Notes Treatment Clinical Notes Apr, Acute pain of right knee (ICD-10 - M25.561) Apr, Sprain of right knee, unspecified ligament, initial encounter (ICD-10 - S83.91XA) Wear the Reagan wrap to your knee and ankle for comfort and compression. Continue to use your crutches for the next few days. Follow-up with your family physician if no improvement in 4 to 5 days. You may take Tylenol or Motrin as needed for pain. Apr, Acute right ankle pain (ICD-10 - M25.571) Apr, Sprain of right ankle, unspecified ligament, initial encounter (ICD-10 - S93.401A) [employer] Other Evaluation noteNo assessment information available [facility] Work Phone: Hisesrn general Narrative - Reported* Type Description Date Medical History HTN Medical History DM II Medical History GERD Medical History hyperlipidemia Medical History asthma Surgical History BILATERAL ROTATOR CUFF Surgical History APPENDECTOMY Surgical History neck surgery on vessles Surgical History carpal tunnel release right Surgical History cardiac pacemeker Surgical History broken neck Hospitalization History see above [employer] Other Hisfdtp general Narrative - Reported* Type Description Date Medical History HTN Medical History DM II Medical History GERD Medical History hyperlipidemia Medical History asthma Surgical History BILATERAL ROTATOR CUFF Surgical History APPENDECTOMY Surgical History neck surgery on vessles Surgical History carpal tunnel release right Surgical History cardiac pacemeker Surgical History broken neck Surgical History carpel tunnel L Hospitalization History see above [employer] Other Hisjdrx general Narrative - Reported* Type Description Date Medical History HTN (hypertension) Medical History Diabetes Medical History Hyperlipidemia Medical History Asthma Surgical History BILATERAL ROTATOR CUFF Surgical History APPENDECTOMY Surgical History neck surgery on vessles Surgical History carpal tunnel release right Surgical History cardiac pacemeker Surgical History broken neck Surgical History carpel tunnel L Hospitalization History see above [employer] Other Hospital Discharge instructions Additional Instructions DISCHARGE INSTRUCTIONS FOR CARPAL TUNNEL RELEASE DIET -No restrictions unless diabetic or cardiac patient ACTIVITY -Activity as tolerated -Use hand is much as possible. -May drive in the a.m. as tolerated; may ride in car -Remove the white dressing 48 hours after surgery -Keep incision clean and dry, when showering place a bag with a rubber band over the operative area -Apply small amount of antibiotic ointment 1 time daily to wound after dressing is off OTHER -Call your physician's office for any fever, chills, nausea, vomiting, drainage, or headache. -Please call your physician's office and make an appointment to see your physician in two weeks.[facility] Work Phone: Summary Purpose Family History Relationship Condition Age at Onset Recorded Date/T sarina brother Heart disease Unknown Cerebrovascular accident (CVA) Unknown Not Specified Heart disease Unknown father Cerebrovascular accident (CVA) Unknown Advance Directives Advance Directive Response Recorded Date/ Time Advance Directives No October 01 11:34am Hospital Course Note MR#: [id number] [facility] Pt. Name: Jason Bartholomew Admitted: 06/07/2019 Discharged: 06/13/2019 Date of : 1945 Physician: Janeth Hutton MD DISCHARGE SUMMARY REASON FOR HOSPITALIZATION: Aortic valve disease. SURGERY/PROCEDURE: Minimally invasive aortic valve replacement with 21 mm Inspiris pericardial valve via right mini-thoracotomy. SURGERY DATE: 06/07/2019. CLINICAL COURSE: The patient is a 73-year-old male with history of severe aortic stenosis. He also has a past medical history of hypertension, type 2 diabetes, and chronic kidney disease. He was found to have severe aortic stenosis with worsening exertional dyspnea and activity intolerance. He tolerated the surgery well and was discharged to the ICU. He experienced postoperative bleeding, where he had a 1 L output in 4 hours. He was taken back to the operating room for exploration and control of bleeding. A clot was removed and the wound was copiously irrigated with saline. He was also fo (more content not included)... Reason for Referral Reason EMG/NCV LUE Diagnosis 1 Carpal tunnel syndro me, left (G56.02) Referral Organization [facility] Referring Provider First Name Darien Referring Provider Last Name Pina Referring Provider Specialty Neurologica l Surgery Referred Organization [facility] Referred Provider Papito Mortensen Referred Address [address] [place], [place],[address] Referred Provider Specialty Neurology Referral Priority Routine Chief Complaint and Reason for Visit Chief Complaint Left Carpal Tunnel Chief Complaint Left Carpal Tunnel Left Carpal Tunnel Additional Source Comments (unrecognized sect ion and content) No Status Records FoundNo Status Records FoundNo Status Records FoundNo Status Records FoundNo Status Records Found INFORMATION SOURCE (unrecogn ized section and content) DATE CREATED AUTHOR 05/16/2020 [facility] DATE CREATED AUTHOR AUTHOR'S ORGANIZ ATION 04/04/2022 [facility] DATE CREATED AUTHOR AUTHOR'S ORGANIZ ATION 08/06/2022 [facility] DATE CREATED AUTHOR AUTHOR'S ORGANIZ ATION 12/13/2022 [facility] DATE CREATED AUTHOR AUTHOR'S ORGANIZ ATION 05/05/2023 [facility] REASON FOR VISIT (unrecogniz ed section and content) RIGHT ANKLE AND KNEE INJURYc /o Hand Numbness new MRIfollow up EMG2 wk po/ ctr left/ [id number] BITE Care Teams (unrecognized sec tion and content) Team Status: Inactive Member Role Status Dates Idris Jose MD Primary Care Provider Active Darien Escamilla MD Attending Provider Active Team Status: Active Member Role Status Dates Idris Jose MD Primary Care Provider Active Goals (unrecognized section and content) Goals may be documented in a n alternate section FOR RECORDS PERTAINING TO PATIENTS WHO ARE OR HAVE BEEN ENROLLED IN A CHEMICAL DEPENDENCY/SUBSTANCEABUSE PROGRAM, SOME INFORMATION MAY BE OMITTED. This clinical summary was aggregated from multiple sources. Caution should be exercised in using it in the provision of clinical care. This summary normalizes information from multiple sources, and as a consequence, information in this document may materially change the coding, format and clinical context of patient data. In addition, data may be omitted in some cases. CLINICAL DECISIONS SHOULD BE BASED ON THE PRIMARY CLINICAL RECORDS. [facility] [employer] [facility]. provides no warranty or guarantee of the accuracy or completeness of information in this document.
[2023-08-09 11:27] LABS: Hematocrit 35.7 % (42.0-54.0); Mean Corpuscular HGB Conc 30.8 g/dL (29.9-35.2); Mean Corpuscular Volume 87.7 fL (80.0-94.0); Mean Platelet Volume 10.9 fL (9.5-13.5); Platelet Count 244 10^3/uL (150-450); Red Blood Count 4.07 10^6/uL (4.70-6.10); Red Cell Distribution Width 15.3 % (11.0-15.0); White Blood Count 7.4 10^3/uL (4.0-11.0)
[2023-08-09 11:57] LABS: Albumin Level 3.4 g/dL (3.4-5.0); Anion Gap 13.3; BUN Creatinine Ratio 14.8; Calcium 8.6 mg/dL (8.5-10.1); Carbon Dioxide 29.5 mmol/L (21.0-32.0); Chloride 100 mmol/L (98-107); Estimated GFR (African America 43 (>=60); Estimated GFR (Non-African Ame 36 (>=60); Glucose 231 mg/dL (74-106); Magnesium 1.7 mg/dL (1.8-2.4); Phosphorus 3.8 mg/dL (2.6-4.7); Potassium 3.8 mmol/L (3.5-5.1); Sodium 139 mmol/L (136-145); Uric Acid 7.4 mg/dL (3.5-7.2)
== END 2023-08-09 10:55 | disposition home or self-care (01) ==
LOC: LAB 10:55
PROVIDERS: PCP Family Medicine
DX: N18.32 Chronic kidney disease, stage 3b (principal)
CPT/HCPCS: 36415; 80048; 82042; 83735; 84100; 84550; 85027

== ENCOUNTER 2023-10-30 08:50 | Outpatient (OUT) | payer MEDICARE, OTHER, SELFPAY ==
--- NOTE | 2023-10-30 | PCN_ITS ---
CARDIAC STRESS TEST Requesting Physician: Procedure Date: 10/30/2023 INDICATION: Chest pain, preoperative evaluation. METHOD: After risks, benefits, and alternatives were explained, written informed consent was obtained. The patient was brought to the Stress Lab in a resting and fasting state. He underwent a Lexiscan pharmacological stress test. Technetium Cardiolite was injected per protocol. He was monitored for the standard duration and discharged in a stable state. There were no complications. STRESS TEST INFORMATION: 0.4 mg of IV Lexiscan was infused. Resting heart rate was 61 beats per minute, increasing to a maximum of 85 beats per minute. Resting blood pressure was 162/82, with a maximum blood pressure of 168/76. ELECTROCARDIOGRAPHY: Rest EKG showed sinus rhythm, first degree AV block, right bundle branch block. Abnormal EKG. DURING INFUSION AND RECOVERY: No significant ST-T wave changes noted. No significant arrhythmia seen. FINAL IMPRESSIONS: 1. No ischemic EKG changes seen on Lexiscan pharmacologic stress test. 2. Nuclear images are to be read, interpreted and reported in a separate dictation. [facility] NURSING FACILITYVenkata
--- NOTE | 2023-10-30 08:30 | NM_ITS ---
Patient Name: JASON DEAN MR#: [id number] : 1945 Exam Date: 10/30/2023 Ordering Doctor: DR ISH STOVER M.D. RADIOLOGY REPORT PROCEDURE: NM DIONISIO PERF SPECT REST STR COMPARISON: None. INDICATIONS: CHEST PAIN, SOB, ENCOUNTER FOR OTHER PREPROCEDURAL TECHNIQUE: Exam Description: Stress/Rest one day protocol gated SPECT Rest Imagin.0 mCi Tc-99m Cardiolite IV on 10/30/2023 Stress Imaging 29.9 mCi Tc-99m Cardiolite IV on 10/30/2023 Exercise Protocol: 0.4 mg Lexiscan given IV Heart Rate (bpm): Rest: 61 Max: 85 PMHR: 60 Blood Pressure: Rest: 162/82 Max: 168/76 Symptoms: Rest and peak stress ECG findings were pending and the exercise portion of the study was pending per attending physician Dr. MONGE . For more details please see separate cardiac stress test report. FINDINGS: QUALITY OF STUDY: Excellent. PERFUSION DEFECT: None. LOCATION: N/A SIZE: N/A. SEVERITY: N/A. TYPE: N/A. WALL MOTION: Normal. LV SIZE: Normal. 81 mL. TID / TCD: None; 0.9 LVEF: Normal. Calculated EF 74%. SUMMARY: Myocardial perfusion imaging study is NORMAL. CONCLUSION: 1. Normal nuclear medicine myocardial perfusion scan. Dictated by: Ronan Mackenzie M.D. on 10/30/2023 at 14:05 Approved by: Ronan Mackenzie M.D. on 10/30/2023 at 14:06
[2023-10-30] MEDS: REGADENOSON 0.4 MG/5 ML SYRINGE 0.400000000000000022 MG IV (11:06)
== END 2023-10-30 08:51 | disposition home or self-care (01) ==
LOC: NM 08:50
PROVIDERS: PCP Family Medicine; Visit Provider Internal Medicine Interventional Cardiology
DX: Z01.818 Encounter for other preprocedural examination (principal); R07.9 Chest pain, unspecified
CPT/HCPCS: 78452; 93017; A9500; J2785

== ENCOUNTER 2023-12-11 13:33 | Outpatient (OUT) | payer MEDICARE, OTHER, SELFPAY ==
--- NOTE | 2023-12-11 13:37 | US_ITS ---
[address] [address] Patient Name: JASON DEAN MRN: [id number] date: 1945 Sex: M Assigned Patient Location: [place] Current Patient Location: [place] Accession/Order Number: [id number] Exam Date: 12/11/2023 13:38 Report Date: 12/11/2023 15:47 At the request of: CHRIS JOSE Procedure: US arterial duplex LE BI EXAMINATION: US arterial duplex LE BI HISTORY: Peripheral Vascular Disease I73.9 COMPARISON: No relevant comparison available. TECHNIQUE: Color duplex Doppler ultrasound evaluation analysis was performed in the usual manner. FINDINGS: RIGHT LOWER EXTREMITY ARTERIAL Mild atherosclerotic plaque. Triphasic waveforms proximally. Biphasic waveforms popliteal and posterior tibial arteries External Iliac PSV: 95.1 cm/s External Iliac EDV: 0.0 cm/s Common Femoral PSV: 91.1 cm/s Common Femoral EDV: 0.0 cm/s Superficial Femoral Proximal PSV: 118.2 cm/s Proximal EDV: 0.0 cm/s Mid PSV: 94.9 cm/s Mid EDV: 0.0 cm/s Distal PSV: 157.4 cm/s Distal EDV: 0.0 cm/s Popliteal Proximal PSV: 92.5 cm/s Popliteal Proximal EDV: 0.0 cm/s Posterior Tibial Proximal PSV: 72.5 cm/s Proximal EDV: 6.3 cm/s Mid PSV: 56.4 cm/s Mid EDV: 6.3 cm/s Distal PSV: 64.7 cm/s Distal EDV: 0.0 cm/s Anterior Tibial Proximal PSV: 61.2 cm/s Proximal EDV: 0.0 cm/s Mid PSV: 96.7 cm/s Mid EDV: 0.0 cm/s Distal PSV: 95.1 cm/s Distal EDV: 7.9 cm/s LEFT LOWER EXTREMITY ARTERIAL Mild atherosclerotic plaque. Triphasic waveforms proximally. Biphasic waveform distal popliteal posterior tibial and anterior tibial arteries External Iliac PSV: 131.9 cm/s External Iliac EDV: 0.0 cm/s Common Femoral PSV: 155.5 cm/s Common Femoral EDV: 0.0 cm/s Superficial Femoral Proximal PSV: 115.9 cm/s Proximal EDV: 0.0 cm/s Mid PSV: 102.0 cm/s Mid EDV: 0.0 cm/s Distal PSV: 113.6 cm/s Distal EDV: 0.0 cm/s Popliteal Proximal PSV: Popliteal Proximal EDV: Posterior Tibial Proximal PSV: 35.7 cm/s Proximal EDV: 0.0 cm/s Mid PSV: 21.7 cm/s Mid EDV: 0.0 cm/s Distal PSV: 37.4 cm/s Distal EDV: Anterior Tibial Proximal PSV: 78.6 cm/s Proximal EDV: 0.0 cm/s Mid PSV: 74.7 cm/s Mid EDV: 0.0 cm/s Distal PSV: 127.9 cm/s Distal EDV: 9.7 cm/s US/US arterial duplex LE BI IMPRESSION: Wave forms suggest mild distal peripheral arterial disease Electronically authenticated by: RAJENDRA FRANCO Date: 12/11/2023 15:47
== END 2023-12-11 13:34 | disposition home or self-care (01) ==
LOC: US 13:33
PROVIDERS: PCP Family Medicine; Visit Provider Family Medicine
DX: E78.5 Hyperlipidemia, unspecified (principal); E11.65 Type 2 diabetes mellitus with hyperglycemia; I10 Essential (primary) hypertension; Z79.899 Other long term (current) drug therapy; Z12.5 Encounter for screening for malignant neoplasm of prostate; I73.9 Peripheral vascular disease, unspecified; R60.0 Localized edema
CPT/HCPCS: 93925

== ENCOUNTER 2024-03-06 13:00 | Outpatient (OUT) | payer MEDICARE, OTHER, SELFPAY ==
[2024-03-06 13:29] LABS: Bilirubin Urine NEGATIVE (NEGATIVE); Blood Urine NEGATIVE (NEGATIVE); Clarity Urine CLEAR (CLEAR); Color Urine LT. YELLOW (YELLOW); Glucose Urine UA NEGATIVE (NEGATIVE); Ketones Urine NEGATIVE (NEGATIVE); Leukocyte Esterase Urine NEGATIVE (NEGATIVE); Nitrite Urine NEGATIVE (NEGATIVE); Protein Urine NEGATIVE (NEG/TRACE); Urobilinogen Urine 0.2 EU/dL (0.2-1.0)
[2024-03-06 13:30] LABS: Hematocrit 28.2 % (42.0-54.0); Hemoglobin 8.7 g/dL (14.0-18.0); Mean Corpuscular HGB Conc 30.9 g/dL (29.9-35.2); Mean Corpuscular Hemoglobin 25.8 pg (25.9-34.0); Mean Corpuscular Volume 83.7 fL (80.0-94.0); Mean Platelet Volume 10.4 fL (9.5-13.5); Platelet Count 248 10^3/uL (150-450); Red Blood Count 3.37 10^6/uL (4.70-6.10); White Blood Count 4.9 10^3/uL (4.0-11.0)
[2024-03-06 13:47] LABS: Albumin Level 3.7 g/dL (3.4-5.0); BUN Creatinine Ratio 14.5; Chloride 101 mmol/L (98-107); Estimated GFR (African America 46 (>=60); Estimated GFR (Non-African Ame 38 (>=60); Glucose 188 mg/dL (74-106); Magnesium 1.8 mg/dL (1.8-2.4); Phosphorus 3.6 mg/dL (2.6-4.7); Potassium 3.8 mmol/L (3.5-5.1); Sodium 140 mmol/L (136-145); Uric Acid 8.2 mg/dL (3.5-7.2)
[2024-03-06 13:53] LABS: Creatinine Urine Random 29.42 mg/dL (20.00-300.00); Microalbumin Urine Random <1.3 mg/dL (<=30.0)
[2024-03-06 13:54] LABS: Anion Gap 11.8
== END 2024-03-06 13:01 | disposition home or self-care (01) ==
LOC: LAB 13:00
PROVIDERS: PCP Family Medicine
DX: N18.32 Chronic kidney disease, stage 3b (principal)
CPT/HCPCS: 36415; 80048; 81003; 82042; 82043; 82570; 83735; 84100; 84550; 85027

== ENCOUNTER 2024-03-23 12:18 | Emergency (ER) | payer MEDICARE, OTHER, SELFPAY ==
[2024-03-23 12:25] VITALS: BP 167/76; PULSE 91; O2SAT 97; BMI 27.0
--- NOTE | 2024-03-23 12:28 | XR_ITS ---
[address] [address] Patient Name: JASON DEAN MRN: [id number] date: 1945 Sex: M Assigned Patient Location: ER Current Patient Location: ER Accession/Order Number: [id number] Exam Date: 03/23/2024 12:45 Report Date: 03/23/2024 13:51 At the request of: ROSITA VAZ Procedure: XR tibia fibula RT 2V EXAM: XR tibia fibula RT 2V HISTORY: Fall, injury COMPARISON: None. FINDINGS/IMPRESSION: 1. No acute fracture or dislocation. 2. Moderate degeneration at the medial compartment with joint space loss and marginal osteophytes. 3. Subcutaneous soft tissue edema of the below-knee lower extremity. 4. Mild degeneration of the ankle joint. 5. Calcaneal Achilles and plantar enthesophyte. 6. No ankle joint effusion. Electronically authenticated by: DIVYA EDMONDS Date: 03/23/2024 13:51
--- NOTE | 2024-03-23 12:30 | ED.LOWEXI1 ---
HPI HPI - Extremity Injury (Lower) General Chief Complaint: Extremity Injury, Lower Stated Complaint: LOWER RIGHT EXTREMITY INJURY Time Seen by Provider: 03/23/24 12:26 Source: patient Mode of arrival: walk-in History of Present Illness HPI Narrative: 78-year-old male presents to the emergency department for an injury to his right lower anterior leg. A week ago today he fell and scraped his knee in a minor fashion and created a large abrasion on the right lower anterior leg. Its become a bit more swollen and painful so he came in to get checked. He is not sure when his last tetanus shot was, he thinks it may have been more than 10 years. Related Data Home Medications ?Medication ?Instructions ?Recorded ?Confirmed atorvastatin 40 mg tablet mg 03/23/24 azelastine 137 mcg (0.1 %) nasal intranasal 03/23/24 spray azelastine 137 mcg-fluticasone 50 intranasal 03/23/24 mcg/spray nasal spray carvedilol 6.25 mg tablet mg 03/23/24 furosemide 20 mg tablet mg 03/23/24 gabapentin 600 mg tablet mg 03/23/24 glimepiride 2 mg tablet mg 03/23/24 hydralazine 25 mg tablet mg 03/23/24 montelukast 10 mg tablet mg 03/23/24 pioglitazone 30 mg tablet mg 03/23/24 rivaroxaban 20 mg tablet (Xarelto) mg 03/23/24 ropinirole 0.25 mg tablet mg 03/23/24 tamsulosin 0.4 mg capsule mg PO 03/23/24 Previous Rx's ?Medication ?Instructions ?Recorded methocarbamol 750 mg tablet 750 mg PO Q6H PRN pain #30 tabs 07/22/23 amoxicillin 875 mg-potassium 1 tab PO BID #20 tabs 03/23/24 clavulanate 125 mg tablet Allergies Allergy/AdvReac Type Severity Reaction Status Date / Time Sulfa (Sulfonamide AdvReac Intermediate swelling Verified 07/22/23 12:49 Antibiotics) Opioid HPI Opioid Management Most Recent Pain and Opioid Data: No Data to Display Review of Systems ROS Narrative A ten point review of systems is negative except as noted above. PFSH PFSH Social History Smoking status: Former smoker Exam Narrative Exam Narrative: Nurses note and vital signs reviewed and patient is not hypoxic. General: The patient appears well and in no apparent distress. Patient is resting comfortably on cart. Skin: Warm, dry, no pallor noted. There is no rash noted. Head: Normocephalic, atraumatic Eye: Normal conjunctiva, no drainage Ears, Nose, Mouth, and Throat: oral mucosa is moist. Nares patent. Cardiovascular: Not tachycardic Respiratory: Patient is in no distress, no accessory muscle use, lungs are clear to auscultation, no wheezing, rales or rhonchi Back: non-tender GI: Normal bowel sounds, no tenderness to palpation, no masses appreciated. No rebound, guarding, or rigidity noted. Musculoskeletal: He has a superficial abrasion of the right knee anteriorly. In the mid tibial region he has a larger abrasion with eschar at the center. There is some swelling around it and some mild erythema as well. Neurological: A&O, normal speech Psychiatric: Cooperative Constitutional Vital Signs, click to edit/add: Last Vital Signs Pulse 91 H 03/23/24 12:25 Resp 20 03/23/24 12:25 BP 167/76 H 03/23/24 12:25 Pulse Ox 97 03/23/24 12:25 O2 Del Method Room Air 03/23/24 12:25 Course Vital Signs Vital signs: Vital Signs Pulse Rate 91 H 03/23/24 12:25 Respiratory Rate 20 03/23/24 12:25 Blood Pressure 167/76 H 03/23/24 12:25 Pulse Oximetry 97 03/23/24 12:25 Oxygen Delivery Method Room Air 03/23/24 12:25 Pulse Rate 91 H 03/23/24 12:25 Respiratory Rate 20 03/23/24 12:25 Blood Pressure 167/76 H 03/23/24 12:25 Pulse Oximetry 97 03/23/24 12:25 Oxygen Delivery Method Room Air 03/23/24 12:25 MDM - Extremity Injury (Lower) MDM Narrative Medical decision making narrative: Blood work is appropriate, WBC not elevated. My clinical impression is that he has cellulitis and at this point I do not feel that he requires admission to the hospital. He was given IV Ancef and prescribed Augmentin and he will see his doctor in a few days for recheck. To return if symptoms worsen. Treatment diagnosis and follow-up were discussed with the patient. Differential Diagnosis Differential diagnosis: Likely other (Contusion, hematoma, fracture, cellulitis) Lab Data Attestation: I reviewed the patient's lab results. Lab results narrative: WBC normal Imaging Data Right tibia: Radiologist's impression: Procedure: XR tibia fibula RT 2V EXAM: XR tibia fibula RT 2V HISTORY: Fall, injury COMPARISON: None. FINDINGS/IMPRESSION: 1. No acute fracture or dislocation. 2. Moderate degeneration at the medial compartment with joint space loss and marginal osteophytes. 3. Subcutaneous soft tissue edema of the below-knee lower extremity. 4. Mild degeneration of the ankle joint. 5. Calcaneal Achilles and plantar enthesophyte. 6. No ankle joint effusion. Electronically authenticated by: DIVYA EDMONDS Date: 03/23/2024 13 Discharge Plan Discharge Chief Complaint: Extremity Injury, Lower Clinical Impression: Cellulitis of right leg Patient Disposition: Home, Self-Care Time of Disposition Decision: 14:07 Condition: Good Mode of Transportation: Private Vehicle Prescriptions / Home Meds: New amoxicillin-pot clavulanate 875-125 mg tablet 1 tab PO BID Qty: 20 0RF No Action methocarbamol 750 mg tablet 750 mg PO Q6H PRN (Reason: pain) Qty: 30 0RF atorvastatin 40 mg tablet carvedilol 6.25 mg tablet gabapentin 600 mg tablet hydralazine 25 mg tablet glimepiride 2 mg tablet tamsulosin 0.4 mg capsule PO ropinirole 0.25 mg tablet montelukast 10 mg tablet furosemide 20 mg tablet azelastine 137 mcg (0.1 %) spray,non-aerosol INTRANASAL pioglitazone 30 mg tablet Xarelto 20 mg tablet azelastine-fluticasone 137-50 mcg/spray spray,non-aerosol INTRANASAL Print Language: [place] Instructions: Cellulitis (ED) Additional Instructions: See your family doctor in 3 to 4 days. Return to ED if symptoms worsen or you develop a fever. Referrals: Idris Donnelly MD [Primary Care Provider] - 1 week
--- OUTSIDE RECORDS SUMMARY | 2024-03-23 12:36 | XMS_ITS | CCD ---
Author Organization [facility] Care Team Providers Care Human Anatomy Teacher Name Role Phone MASROOR, JANETH Admitting Unavailable KELSEYROOR, JANETH Attending Unavailable IDRIS JOSE Primary Care Unavailable ZACHEREIDRIS Sky Referring Unavailable MASROOR, JANETH Surgeon Unavailable [place] Procedure Practitioner Unavailab MINE Stafford Surgeon Unavailable [place] Procedure Practitioner Unavailab GILBERTO Peña Surgeon Unavailable [place] Procedure Practitioner Unavailab BRYAN Nelson AM Surgeon Unavailable [place] Procedure Practitioner Unavailab Sonali Fowler Unavailable Darien Escamilla Unavailable MD Idris Jose Primary Care Provider MD Darien Escamilla Attending Provider [phone] Idris Jose Primary Care Unavailable Idris Jose Admitting Unavailable Idris Jose Attending Unavailable Idris Jose Primary Care Unavailable Idris Jose Admitting Unavailable Idris Jose Attending Unavailable Idris Jose Primary Care Unavailable Darien Escamilla Attending Unavailable Darien Escamilla Admitting Unavailable Idris Jose Primary Care Unavailable Darien Escamilla Attending Unavailable Darien Escamilla Admitting Unavailable Kylah Valenzuela Unavailable DR RAJENDRA FRANCO V Consulting Unavailable APLING, RAHEL B Admitting Unavailable APLINGRAHEL Attending Unavailable ZACHEREJose Daniel, DR IDRIS Valdivia Primary Care Unavailable APLING, RAHEL Gopal Consulting Unavailable MISC, DR HAMPTON Admitting Unavailable MISC, DR HAMPTON Attending Unavailable MISC, DR HAMPTON Consulting Unavailable NADERER, DR IDRIS Valdivia Primary Care Unavailable NADERER, DR IDRIS Valdivia Primary Care Unavailable ORLANDO TELLEZ Consulting Unavailable ORLANDO TELLEZ Admitting Unavailable ORLANDO TELLEZ Attending Unavailable SHAIKH EDDY H Consulting Unavailable SHAIKH EDDY H Primary Care Unavailable FAWWAD, ALLRED H Admitting Unavailable FAWWAD, ALLRED H Attending Unavailable NADERER, DR IDRIS Valdivia Primary Care Unavailable ROSALINDAORLANDO Admitting Unavailable WEST, DR RAJENDRA Ramírez Consulting Unavailable ROSALINDA, ORLANDO Attending Unavailable ROSALINDAORLANDO Bangura Consulting Unavailable NADERER, DR IDRIS Valdivia Primary [...] H Consulting Unavailable NEFCY, PETER Consulting Unavailable Naderer Idris MALDONADO Primary Care Provider RAHEL HENSLEY Attending Unavailable NADERER, IDRIS Attending Unavailable ORLANDO TELLEZ Referring Unavailable ELTAHAWY, ISH Attending Unavailable ROSALINDAORLANDO Bangura Referring Unavailable ELTAHAWY, ISH Referring Unavailable ROSALINDAORLANDO Referring Unavailable ELTAHAWY, ISH Attending Unavailable WITHERELLAMADOR Attending Unavailable Allergies Allergy Classification Reported Allergen(s) Allergy Type Date of Onset Reaction(s) Facility (5 sources) Sulfonamides (Antibiotic); Translations: [SULFA (SULFONAMIDE ANTIBIOTICS)] Drug allergy (disorder) 02-25-20 17 Rash [facility] Repository (5 sources) Sulfonamides (Antibiotic) Propensity to adverse reactions (Ishaan) 07/31/2013 Skin Rash Skin Rash [facility] Other (1 source) Sulfonamides (Antibiotic) Drug allergy (disorder) 07-06-19 23 [facility] Repository Medications Current Medications Medication Drug Class(es) [...] 2022 12:00am gabapentin 600 mg oral tablet (5 sources) Anti-epileptic Agent Start: 08-08-2023 take 1 tablet by mouth three times daily gabapentin (Neurontin) 600 MG tablet Indications: Spinal stenosis, cervical region TAKE 1 TABLET BY MOUTH THREE TIMES DAILY 90 tablet 2 08/08/2023 Active Start: 04-24-2020 End: 06-02-2020 take 600 mg [...] 5 - 10 MG PO Q6H 30 8 July 06, 2022 Start: 07-06-2022 take 5-10 mg by mout h every six hours Oxycodone Active 5 - 10 MG PO Q6H 30 July 06, 2022 pioglitazone 30 mg oral tablet (3 sources) Peroxisome Proliferator Receptor alpha Agonist, Peroxisome Proliferator Receptor gamma Agonist, Thiazolidinedione Start: 06-19-2023 take 1 tablet by mouth once daily pioglitazone (Actos) 30 MG tablet Indications: Type 2 diabetes mellitus with hyperglycemia (CMS/HCC) TAKE 1 TABLET BY MOUTH DAILY 90 tablet 3 06/19/2023 Active Start: 06-22-2022 take 30 mg by mouth [...] Active 0.4 MG PO Daily after supper 30 June 02, 2020 12:00am Warfarin (5 sources) [...] 1 SPRAY INTRANASAL Bedtime September 25, 2018 11:00June 02, 2020 1:26pm Balsam [place] Oil (Venelex) Ointment (2 sources) Start: 06-02-20 End: 06-22-20 Balsam [place] Oil (Venelex) Ointment Discontinued 1 APPLIC TOPICAL [...] Capsule Discontinued 100 MG PO Twice daily June 02, 2020 12:00am June 22, [...] Insulin Pen Discontinued 12 UNITS SUBCUT Daily 10 30June 02, 2020 12:00am June 22, 2022 10:23am lisinopril 40 mg oral tablet (2 sources) Angiotensin Converting Enzyme Inhibitor Start: 09-27-19 End: 04-24-20 take 1 tablet by mouth once daily Lisinopril Discontinued 1 TAB PO Daily September 25, 2018 11:00pm April 24, 2020 2:17pm suprep bowel prep kit 17.5-3.13-1.6 gm/177ml solution (5 sources) Start: 09-22-19 Suprep Bowel Prep Kit 17.5-3.13-1.6 GM/177ML 177ml [...] NEOPLASM PROSTATE] Onset: 3 Episodic Cardiac dysrhythmias (4 sources) Paroxysmal atrial fibrillation; Translations: [PAROXYSMAL ATRIAL [...] Onset: 2 Chronic Congestive heart failure; nonhypertensive (4 sources) Acute on chronic diastolic (congestive) heart failure; Translations: [ACUTE ON CHRONIC DIASTOLIC CHF] Onset: 3 Chronic Coronary atherosclerosis and other heart disease (4 sources) Unstable angina; Translations: [Atherosclerotic heart disease of samish coronary artery without angina pectoris] Onset: 4 Chronic Diabetes mellitus with complications (5 sources) [...] sources) Long-term current use of anticoagulant; Translations: [terminal carman (current) use of anticoagulants] Episodic Other and [...] Translations: [CONTACT W/AND (SUSP) EXPOS COVID-19] Onset: Past or Other Problems Problem Classification Problem Date Documented Date Episodic/Chronic Complications of surgical procedures or medical care (4 sources) Postprocedural hemorrhage of skin and subcutaneous tissue following a dermatologic procedure; Translations: [POSTP H SKIN AND SC TISS FLW DERM PCR] Onset: 05-12-2022 Episodic Other aftercare (2 sources) half-way (current) use of anticoagulants; Translations: [PHARMACY MANAGER CURRNT USE ANTICOAGULANTS] Onset: 05-16-2022 Episodic Other aftercare (1 source) Other long-term (current) drug therapy; Translations: [OTH LONG-TERM CURRENT DRUG THERAPY] Onset: 05-16-2022 Episodic Other aftercare (1 source) half-way (current) use of aspirin; Translations: [PHARMACY MANAGER CURRENT USE OF ASPIRIN] Onset: 05-16-2022 Episodic Other connective tissue disease (1 source) Arthrodesis status Onset: 03-18-2022 Resolved: 03-18-2022 Episodic Other connective tissue disease (3 sources) Facial weakness; Translations: [FACIAL WEAKNESS] Onset: 12-15-2021 Episodic Other lower respiratory disease (1 source) Other nonspecific abnormal finding of lung field; Translations: [OTH NONSPECIFIC ABN FIND LNG FIELD] Onset: 04-06-2022 Episodic Other lower respiratory disease (2 sources) Other forms of dyspnea; Translations: [Other forms of dyspnea] Onset: 10-18-2023 Episodic Other nervous system disorders (1 source) [...] Test Name Value Interpretation Reference Range Facility 36on 11-02-2023 36 Regarding stress test result from 10/30/2023: MD Veronica Rios MA Please let him know the stress test was normal Thanks Patient's made aware and she verbalized understanding. Normal [facility] Office Visiton 10-18-2023 Follow-up visit [id number] Jason Bartholomew 1945 M Date Provider Department Center 10/18/2023 ISH GARCIA DEONTE [facility] Family History Problem Relation Age of Onset Heart failure Mother Stroke Brother Heart failure Brother Family Status - Relation Status Age at Mother Brother Level of Service:78438 [place] OFFICE/OUTPATIENT ESTABLISHED MOD MDM 30 MIN [facility] WITH PLATELET NO DI FFERENTIALon 08-09-2023 Erythrocyte distribution width (RBC) [Ratio] 15.3 % High 11.0 - 15.0 % [facility] Hematocrit (Bld) [Volume fraction] 35.7 % Low 42.0 - 54.0 % [facility] Hemoglobin (Bld) [Mass/Vol] 11.0 g/dL Low 14.0 - 18.0 g/dL [facility] Interpretation and review of laboratory results Abnormal [facility] MCH (RBC) [Entitic mass] 27.0 pg 25.9 - 34.0 pg [facility] MCHC (RBC) [Mass/Vol] 30.8 g/dL 29.9 - 35.2 g/dL [facility] MCV (RBC) [Entitic vol] 87.7 fL 80.0 - 94.0 fL [facility] Platelet mean volume (Bld) [Entitic vol] 10.9 fL 9.5 - 13.5 fL [facility] PLT 244 [facility] RBC 4.07 Low [facility] WBC 7.4 [facility] Vis[facility] 05-04-2023 Follow-up visit [id number] Jason Bartholomew 1945 Date Provider Department Center 05/04/2023 [id number] MEYER DEONTE [facility] Family History Problem Relation Age of Onset Heart failure Mother Stroke Brother Heart failure Brother Family Status - Relation Status Age at Mother Brother Level of Service:76034 [place] OFFICE/OUTPATIENT ESTABLISHED LOW MDM 20-29 MIN Normal [facility] Office Visiton 04-05-2023 Follow-up visit [id number] Jason Bartholomew 1945 Date Provider Department Center 04/05/2023 271-ISH [place] DEONTE [facility] Family History Problem Relation Age of Onset Heart failure Mother Stroke Brother Heart failure Brother Family Status - Relation Status Age at Mother Brother Level of Service:57927 [place] OFFICE/OUTPATIENT ESTABLISHED MOD MDM 30-39 MIN Normal [facility] PROF CHEM 8 (BAS METB)on Anion gap [Moles/Vol] 11.0 mmol/L Normal [facility] Comment on above: Performed By: #### M G, BMP, URIC, ALB, PHOS #### [facility] [address] [place], [place] [address] Dr. Terence Love Calcium [Mass/Vol] 9.2 mg/dL Normal 8.5-10.1 [facility] Comment on above: Performed By: #### M G, BMP, URIC, ALB, PHOS #### [facility] [address] [place] [address] [address] Terence Love Chloride [Moles/Vol] 101 mmol/L Normal 98-107 [facility] Comment on above: Performed By: #### M G, BMP, URIC, ALB, PHOS #### [facility] [address] [place] [address] Dr. Terence Love CO2 [Moles/Vol] 32.1 mmol/L Critically high 21.0-32.0 [facility] Comment on above: Performed By: #### M G, BMP, URIC, ALB, PHOS #### [facility] [address] [place] [address] Dr. Terence Love Creatinine [Mass/Vol] 1.70 mg/dL Critically high 0.70-1.30 [facility] Comment on above: Performed By: #### M G, BMP, URIC, ALB, PHOS #### [facility] [address] [place] [address] Dr. Terence Love EGFR-AF TOGOLESE 47 mL/min/1.73m2 Critically low >=60 [facility] Comment on above: Performed By: #### M G, BMP, URIC, ALB, PHOS #### [facility] [address] [place] [address] Dr. Terence Love EGFR-NON AF TOGOLESE 39 mL/min/1.73m2 Critically low >=60 [facility] Comment on above: Performed By: #### M G, BMP, URIC, ALB, PHOS #### [facility] [address] [place] [address] Dr. Terence Love Glucose [Mass/Vol] 188 mg/dL Critically high 74-106 [facility] Comment on above: Performed By: #### M G, BMP, URIC, ALB, PHOS #### [facility] [address] [place] [address] Dr. Terence Love Potassium [Moles/Vol] 4.1 mmol/L Normal 3.5-5.1 [facility] Comment on above: Performed By: #### M G, BMP, URIC, ALB, PHOS #### [facility] [address] [place] [address] Dr. Terence Love Sodium [Moles/Vol] 140 mmol/L Normal 136-145 [facility] Comment on above: Performed By: #### M G, BMP, URIC, ALB, PHOS #### [facility] [address] [place] [address] Dr. Terence Love Urea nitrogen [Mass/Vol] 26.0 mg/dL Critically high 7.0-18.0 [facility] Comment on above: Performed By: #### M G, BMP, URIC, ALB, PHOS #### [facility] [address] [place] [address] Dr. Terence Love Urea nitrogen/Creatinine [Mass ratio] 15.3 mg/mg Normal [facility] Comment on above: Performed By: #### M G, BMP, URIC, ALB, PHOS #### [facility] [address] [place] [address] Dr. Terence Love BNPon 11-17-2022 Natriuretic peptide B (Bld) [Mass/Vol] 305.0 pg/mL Normal <=1,800.0 [facility] Comment on above: Performed By: #### M G, BMP, URIC, ALB, PHOS #### [facility] [address] [place] [address] Dr. Terence Love CBC AUTO DIFFon 11-17-2022 BASO # 0.0 103/ul Normal 0.0-0.1 [facility] Comment on above: Performed By: #### M G, BMP, URIC, ALB, PHOS #### [facility] [address] [place] [address] Dr. Terence Love Basophils/100 WBC (Bld) 0.5 % Normal 0.2-2.0 [facility] Comment on above: Performed By: #### M G, BMP, URIC, ALB, PHOS #### [facility] [address] [place] [address] Dr. Terence Love EO # 0.1 103/ul Normal 0.0-0.7 [facility] Comment on above: Performed By: #### M G, BMP, URIC, ALB, PHOS #### [facility] [address] [place] [address] Dr. Terence Love Eosinophils/100 WBC (Bld) 2.0 % Normal 0.9-7.0 [facility] Comment on above: Performed By: #### M G, BMP, URIC, ALB, PHOS #### [facility] [address] [place] [address] Dr. Terence Love Erythrocyte distribution width (RBC) [Ratio] 14.5 % Normal 11.0-15.0 [facility] Comment on above: Performed By: #### M G, BMP, URIC, ALB, PHOS #### [facility] [address] [place] [address] Dr. Terence Love Hematocrit (Bld) [Volume fraction] 40.8 % Critically low 42.0-54.0 [facility] Comment on above: Performed By: #### M G, BMP, URIC, ALB, PHOS #### [facility] [address] [place] [address] Dr. Terence Love Hemoglobin (Bld) [Mass/Vol] 13.3 g/dL Critically low 14.0-18.0 [facility] Comment on above: Performed By: #### M G, BMP, URIC, ALB, PHOS #### [facility] [address] [place] [address] Dr. Terence Love IG # 0.02 10e3/ul Normal 0.00-0.03 [facility] Comment on above: Performed By: #### M G, BMP, URIC, ALB, PHOS #### [facility] [address] [place] [address] Dr. Terence Love IG % 0.3 % Normal 0.0-0.5 [facility] Comment on above: Performed By: #### M G, BMP, URIC, ALB, PHOS #### [facility] [address] [place] [address] Dr. Terence Love LYMPH # 1.1 103/ul Critically low 1.2-3.8 [facility] Comment on above: Performed By: #### M G, BMP, URIC, ALB, PHOS #### [facility] [address] [place] [address] Dr. Terence Love Lymphocytes/100 WBC (Bld) 18.9 % Critically low 20.5-60.0 [facility] Comment on above: Performed By: #### M G, BMP, URIC, ALB, PHOS #### [facility] [address] [place] [address] Dr. eTrence Love MANUAL DIFF REQ NO Normal [facility] Comment on above: Performed By: #### M G, BMP, URIC, ALB, PHOS #### [facility] [address] [place] [address] Dr. Terence Love MCH (RBC) [Entitic mass] 30.2 pg Normal 25.9-34.0 [facility] Comment on above: Performed By: #### M G, BMP, URIC, ALB, PHOS #### [facility] [address] [place] [address] Dr. Terence Love MCHC (RBC) [Mass/Vol] 32.6 g/dL Normal 29.9-35.2 [facility] Comment on above: Performed By: #### M G, BMP, URIC, ALB, PHOS #### [facility] [address] [place] [address] Dr. Terence Love MCV (RBC) [Entitic vol] 92.5 fL Normal 80.0-94.0 [facility] Comment on above: Performed By: #### M G, BMP, URIC, ALB, PHOS #### [facility] [address] [place] [address] Dr. Terence Love MONO # 0.7 103/ul Normal 0.3-0.8 [facility] Comment on above: Performed By: #### M G, BMP, URIC, ALB, PHOS #### [facility] [address] [place] [address] Dr. Terence Love Monocytes/100 WBC (Bld) 10.9 % Normal 1.7-12.0 [facility] Comment on above: Performed By: #### M G, BMP, URIC, ALB, PHOS #### [facility] [address] [place] [address] Dr. Terence Love NEUT # 4.1 103/ul Normal 1.4-6.5 [facility] Comment on above: Performed By: #### M G, BMP, URIC, ALB, PHOS #### [facility] [address] [place] [address] Dr. Terence Love Neutrophils/100 WBC (Bld) 67.4 % Normal 43.0-75.0 [facility] Comment on above: Performed By: #### M G, BMP, URIC, ALB, PHOS #### [facility] [address] [place] [address] Dr. Terence Love Platelet mean volume (Bld) [Entitic vol] 10.6 fL Normal 9.5-13.5 [facility] Comment on above: Performed By: #### M G, BMP, URIC, ALB, PHOS #### [facility] [address] [place] [address] Dr. Terence Love PLT 219 103/ul Normal 150-450 [facility] Comment on above: Performed By: #### M G, BMP, URIC, ALB, PHOS #### [facility] [address] [place] [address] Dr. Terence Love RBC 4.41 106/ul Critically low 4.70-6.10 [facility] Comment on above: Performed By: #### M G, BMP, URIC, ALB, PHOS #### [facility] [address] [place] [address] Dr. Terence Love WBC 6.0 103/ul Normal 4.0-11.0 [facility] Comment on above: Performed By: #### M G, BMP, URIC, ALB, PHOS #### [facility] [address] [place] [address] Dr. Terence Love PROF 14(COMP METB)on 023 Albumin [Mass/Vol] 3.9 g/dL Normal 3.4-5.0 [facility] Comment on above: Performed By: #### M G, BMP, URIC, ALB, PHOS #### [facility] [address] [place] [address] Dr. Terence Love Albumin/Globulin [Mass ratio] 1.1 {ratio} Normal [facility] Comment on above: Performed By: #### M G, BMP, URIC, ALB, PHOS #### [facility] [address] [place] [address] [address] Terence Love ALP [Catalytic activity/Vol] 69 U/L Normal 46-116 [facility] Comment on above: Performed By: #### M G, BMP, URIC, ALB, PHOS #### [facility] [address] [place] [address] [address] Terence Love ALT [Catalytic activity/Vol] 33 U/L Normal 16-63 [facility] Comment on above: Performed By: #### M G, BMP, URIC, ALB, PHOS #### [facility] [address] [place] [address] Dr. Terence Love Anion gap [Moles/Vol] 11.9 mmol/L Normal [facility] Comment on above: Performed By: #### M G, BMP, URIC, ALB, PHOS #### [facility] [address] [place] [address] Dr. Terence Love AST [Catalytic activity/Vol] 21 U/L Normal 15-37 [facility] Comment on above: Performed By: #### M G, BMP, URIC, ALB, PHOS #### [facility] [address] [place] [address] Dr. Terence Love Bilirubin [Mass/Vol] 0.6 mg/dL Normal 0.2-1.0 [facility] Comment on above: Performed By: #### M G, BMP, URIC, ALB, PHOS #### [facility] [address] [place] [address] Dr. Terence Love Calcium [Mass/Vol] 9.3 mg/dL Normal 8.5-10.1 [facility] Comment on above: Performed By: #### M G, BMP, URIC, ALB, PHOS #### [facility] [address] [place] [address] Dr. Terence Love Chloride [Moles/Vol] 101 mmol/L Normal 98-107 [facility] Comment on above: Performed By: #### M G, BMP, URIC, ALB, PHOS #### [facility] [address] [place] [address] [address] Terence Love CO2 [Moles/Vol] 31.3 mmol/L Normal 21.0-32.0 [facility] Comment on above: Performed By: #### M G, BMP, URIC, ALB, PHOS #### [facility] [address] [place] [address] [address] Terence Love Creatinine [Mass/Vol] 1.94 mg/dL Critically high 0.70-1.30 [facility] Comment on above: Performed By: #### M G, BMP, URIC, ALB, PHOS #### [facility] [address] [place] [address] Dr. Terence Love EGFR-AF TOGOLESE 41 mL/min/1.73m2 Critically low >=60 [facility] Comment on above: Performed By: #### M G, BMP, URIC, ALB, PHOS #### [facility] [address] [place] [address] Dr. Terence Love EGFR-NON AF TOGOLESE 34 mL/min/1.73m2 Critically low >=60 [facility] Comment on above: Performed By: #### M G, BMP, URIC, ALB, PHOS #### [facility] [address] [place] [address] [address] Terence Love Globulin (S) [Mass/Vol] 3.5 g/dL Normal [facility] Comment on above: Performed By: #### M G, BMP, URIC, ALB, PHOS #### [facility] [address] [place] [address] [address] Terence Love Glucose [Mass/Vol] 127 mg/dL Critically high 74-106 [facility] Comment on above: Performed By: #### M G, BMP, URIC, ALB, PHOS #### [facility] [address] [place] [address] [address] Terence Love Potassium [Moles/Vol] 4.2 mmol/L Normal 3.5-5.1 [facility] Comment on above: Performed By: #### M G, BMP, URIC, ALB, PHOS #### [facility] [address] [place] [address] [address] Terence Love Protein [Mass/Vol] 7.4 g/dL Normal 6.4-8.2 [facility] Comment on above: Performed By: #### M G, BMP, URIC, ALB, PHOS #### [facility] [address] [place] [address] [address] Terence Love Sodium [Moles/Vol] 140 mmol/L Normal 136-145 [facility] Comment on above: Performed By: #### M G, BMP, URIC, ALB, PHOS #### [facility] [address] [place] [address] Dr. Terence Love Urea nitrogen [Mass/Vol] 26.0 mg/dL Critically high 7.0-18.0 [facility] Comment on above: Performed By: #### M G, BMP, URIC, ALB, PHOS #### [facility] [address] [place] [address] [address] Terence Love Urea nitrogen/Creatinine [Mass ratio] 13.4 mg/mg Normal [facility] Comment on above: Performed By: #### M G, BMP, URIC, ALB, PHOS #### [facility] [address] [place] [address] Dr. Terence Love XR CHEST 2 Von [...] GEORGIE CHARLES Date: 2022-11-17 13:11 Normal [facility] CT LSPINE WO CONon 05-16-[address] [facility] WO CON EXAMINATION: [facility] CON HISTORY: Low back pain COMPARISON: 02/21/2020 [...] by: RAJENDRA FRANCO Date: 2022-11-15 07:36 Normal [facility] ALBUMINon 08-12-2022 Albumin [Mass/Vol] 3.8 g/dL Normal 3.4-5.0 [facility] Comment on above: Performed By: #### M G, BMP, URIC, ALB, PHOS #### [facility] [address] [place] [address] [address] Terence Love HEMOGRAM AND PLATELon 2022 Hematocrit (Bld) [Volume fraction] 38.3 % Critically low 42.0-54.0 [facility] Comment on above: Performed By: #### M G, BMP, URIC, ALB, PHOS #### [facility] [address] [place] [address] [address] Terence Love Hemoglobin (Bld) [Mass/Vol] 12.5 g/dL Critically low 14.0-18.0 [facility] Comment on above: Performed By: #### M G, BMP, URIC, ALB, PHOS #### [facility] [address] [place] [address] Dr. Terence Love MCH (RBC) [Entitic mass] 29.7 pg Normal 25.9-34.0 [facility] Comment on above: Performed By: #### M G, BMP, URIC, ALB, PHOS #### [facility] [address] [place] [address] Dr. Terence Love MCHC (RBC) [Mass/Vol] 32.6 g/dL Normal 29.9-35.2 [facility] Comment on above: Performed By: #### M G, BMP, URIC, ALB, PHOS #### [facility] [address] [place] [address] Dr. Terence Love MCV (RBC) [Entitic vol] 91.0 fL Normal 80.0-94.0 [facility] Comment on above: Performed By: #### M G, BMP, URIC, ALB, PHOS #### [facility] [address] [place] [address] Dr. eTrence Love PLT 192 103/ul Normal 150-450 [facility] Comment on above: Performed By: #### M G, BMP, URIC, ALB, PHOS #### [facility] [address] [place] [address] Dr. Terence Love RBC 4.21 106/ul Critically low 4.70-6.10 [facility] Comment on above: Performed By: #### M G, BMP, URIC, ALB, PHOS #### [facility] [address] [place] [address] Dr. Terence Love WBC 6.2 103/ul Normal 4.0-11.0 [facility] Comment on above: Performed By: #### M G, BMP, URIC, ALB, PHOS #### [facility] [address] [place] [address] Dr. Terence Love MAGNESIUMon 08-12-2022 Magnesium [Mass/Vol] 1.8 mg/dL Normal 1.8-2.4 [facility] Comment on above: Performed By: #### B MP #### [facility] [address] [place] [address] Dr. Terence Love PHOSPHORUSon 08-12-2022 Phosphate [Mass/Vol] 4.1 mg/dL Normal 2.6-4.7 [facility] Comment on above: Performed By: #### B MP #### [facility] [address] [place] [address] Dr. Terence Love PROF CHEM 8 (BAS METB)on Anion gap [Moles/Vol] 14.2 mmol/L Normal [facility] Comment on above: Performed By: #### M G, BMP, URIC, ALB, PHOS #### [facility] [address] [place] [address] Dr. Terence Love Calcium [Mass/Vol] 9.4 mg/dL Normal 8.5-10.1 [facility] Comment on above: Performed By: #### M G, BMP, URIC, ALB, PHOS #### [facility] [address] [place] [address] Dr. Terence Love Chloride [Moles/Vol] 102 mmol/L Normal 98-107 [facility] Comment on above: Performed By: #### M G, BMP, URIC, ALB, PHOS #### [facility] [address] [place] [address] Dr. Terence Love CO2 [Moles/Vol] 29.4 mmol/L Normal 21.0-32.0 [facility] Comment on above: Performed By: #### M G, BMP, URIC, ALB, PHOS #### [facility] [address] [place] [address] Dr. Terence Love Creatinine [Mass/Vol] 1.54 mg/dL Critically high 0.70-1.30 [facility] Comment on above: Performed By: #### M G, BMP, URIC, ALB, PHOS #### [facility] [address] [place], [place] [id number] Dr. Terence Love EGFR-AF TOGOLESE 53 mL/min/1.73m2 Critically low >=60 [facility] Comment on above: Performed By: #### M G, BMP, URIC, ALB, PHOS #### [facility] [address] [place] [address] Dr. Terence Love EGFR-NON AF TOGOLESE 44 mL/min/1.73m2 Critically low >=60 [facility] Comment on above: Performed By: #### M G, BMP, URIC, ALB, PHOS #### [facility] [address] [place] [address] Dr. Terence Love Glucose [Mass/Vol] 196 mg/dL Critically high 74-106 [facility] Comment on above: Performed By: #### M G, BMP, URIC, ALB, PHOS #### [facility] [address] [place] [address] Dr. Terence Love Potassium [Moles/Vol] 4.6 mmol/L Normal 3.5-5.1 [facility] Comment on above: Performed By: #### M G, BMP, URIC, ALB, PHOS #### [facility] [address] [place] [address] Dr. Terence Love Sodium [Moles/Vol] 141 mmol/L Normal 136-145 [facility] Comment on above: Performed By: #### M G, BMP, URIC, ALB, PHOS #### [facility] [address] [place] [address] Dr. Terence Love Urea nitrogen [Mass/Vol] 26.0 mg/dL Critically high 7.0-18.0 [facility] Comment on above: Performed By: #### M G, BMP, URIC, ALB, PHOS #### [facility] [address] [place] [address] Dr. Terence Love Urea nitrogen/Creatinine [Mass ratio] 16.9 mg/mg Normal [facility] Comment on above: Performed By: #### M G, BMP, URIC, ALB, PHOS #### [facility] [address] [place] [address] Dr. Terence Love URIC ACID SERUMon 08-12-2022 Urate [Mass/Vol] 6.0 mg/dL Normal 3.5-7.2 [facility] Comment on above: Performed By: #### M G, BMP, URIC, ALB, PHOS #### [facility] [address] [place], [place] [address] Dr. Terence Love Glucose Glucometer (dC) [M ass/Vol]Ordered By: Darien Escamilla on 07-06-2022 Glucose [Mass/Vol] 82 mg/dL [facility] Comment on above: Random Glucose Refer ence Range is dependent on time and content of last meal. Glucose of more than 200 mg/dL in a nonstressed, ambulatory subject supports the diagnosis of Diabetes Mellitus. Glucose Poct Glucometerson 0 07-06-2022 Commemt1 Glu2: Cleaned Meter Normal [facility] Comment on above: Result Comment: PERF ORMED BY: [place] [address] PATHOLOGIST [employer] KEZIA MUÑOZ M.D. Performed By: #### G LULS #### Point of Care testing , Glucose [Mass/Vol] 82 mg/dL Normal [facility] Comment on above: Result Comment: [place] Glucose Reference Range is dependent on time and content of last meal. Glucose of more than 200 mg/dL in a nonstressed, ambulatory subject supports the diagnosis of Diabetes Mellitus. Performed By: #### G LULS #### Point of Care testing , No Panel InformationOrdered By: Darien Escamilla on 07-06-2022 Bedside Glucose Comment Glu2: cleaned meter [facility] Basic Metabolic Panelon 12-2 Anion gap [Moles/Vol] 10.3 mmol/L Normal 6.0-15.0 [facility] Comment on above: Performed By: #### C BC, BMP #### [facility] [address] Calcium [Mass/Vol] 9.3 mg/dL Normal 8.2-10.2 [facility] Comment on above: Result Comment: PERF ORMED BY: [place] [address] PATHOLOGIST [employer] KEZIA MUÑOZ M.D. Performed By: #### C BC, BMP #### [address] Chloride [Moles/Vol] 102 mmol/L Normal 95-114 [facility] Comment on above: Performed By: #### C BC, BMP #### [address] CO2 [Moles/Vol] 28.3 mmol/L Normal 22.0-30.0 [facility] Comment on above: Performed By: #### C BC, BMP #### [address] Creatinine [Mass/Vol] 1.62 mg/dL High 0.64-1.27 [facility] Comment on above: Performed By: #### C BC, BMP #### [address] Estimated GFR ( [place] 50 [facility] Comment on above: Result Comment: GFR estimated reference range: According to KDOQI guidelines, <60 ml/min/1.73m2 is sufficient to diagnose a patient with chronic kidney disease. Performed By: #### C BC, BMP #### [address] Estimated GFR (Non- Am 41 Normal [facility] Comment on above: Performed By: #### C BC, BMP #### [address] Glucose [Mass/Vol] 202 mg/dL High 70-100 [facility] Comment on above: Result Comment: [place] om Glucose Reference Range is dependent on time and content of last meal. Glucose of more than 200 mg/dL in a nonstressed, ambulatory subject supports the diagnosis of Diabetes Mellitus. ADA recommended reference range Performed By: #### C BC, BMP #### [address] Potassium [Moles/Vol] 4.6 mmol/L Normal 3.5-5.1 [facility] Comment on above: Performed By: #### C BC, BMP #### [facility] [address] Sodium [Moles/Vol] 136 mmol/L Normal 136-146 [facility] Comment on above: Performed By: #### C BC, BMP #### [facility] [address] Urea nitrogen [Mass/Vol] 25 mg/dL High 9-23 [facility] Comment on above: Performed By: #### C BC, BMP #### [facility] [address] Basophils Auto (Bld) [#/Vol] Ordered By: Darien Escamilla on 06-22-2022 Basophils (Bld) [#/Vol] 0.0 10*3/uL 0.0-0.2 [facility] Basophils/100 WBC Auto (Bld) Ordered By: Darien Escamilla on 06-22-2022 Basophils/100 WBC (Bld) 0.5 % . [facility] Complete Blood Count Auto Di ffon 06-22-2022 Basophils (Bld) [#/Vol] 0.0 10*3/uL Normal 0.0-0.2 [facility] Comment on above: Result Comment: PERF ORMED BY: [place] [address] PATHOLOGIST [employer] KEZIA MUÑOZ M.D. Performed By: #### C BC, BMP #### [address] Basophils/100 WBC (Bld) 0.5 % Normal . [facility] Comment on above: Performed By: #### C BC, BMP #### [facility] [address] [place] [address] [place] Eosinophils (Bld) [#/Vol] 0.1 10*3/uL Normal 0.0-0.45 [facility] Comment on above: Performed By: #### C BC, BMP #### [facility] [address] [place] [address] [place] Eosinophils/100 WBC (Bld) 1.5 % Normal . [facility] Comment on above: Performed By: #### C BC, BMP #### [address] Erythrocyte distribution width (RBC) [Ratio] 14.3 % Normal 12.0-14.8 [facility] Comment on above: Performed By: #### C BC, BMP #### [address] Hematocrit (Bld) [Volume fraction] 38.3 % Low 38.8-50.0 [facility] Comment on above: Performed By: #### C BC, BMP #### [address] Hemoglobin (Bld) [Mass/Vol] 12.6 g/dL Low 13.0-17.0 [facility] Comment on above: Performed By: #### C BC, BMP #### [address] Lymphocytes (Bld) [#/Vol] 0.9 10*3/uL Low 1.00-4.8 [facility] Comment on above: Performed By: #### C BC, BMP #### [address] Lymphocytes/100 WBC (Bld) 16.3 % Normal . [facility] Comment on above: Performed By: #### C BC, BMP #### [address] MCH (RBC) [Entitic mass] 29.8 pg Normal 27.5-35.2 [facility] Comment on above: Performed By: #### C BC, BMP #### [address] MCV (RBC) [Entitic vol] 90.2 fL Normal 83.5-101 [facility] Comment on above: Performed By: #### C BC, BMP #### [address] Mean Corpuscular HGB Conc 33.0 g/dL Normal 32.5-35.6 [facility] Comment on above: Performed By: #### C BC, BMP #### [facility] [address] [place] [address] [place] Monocytes (Bld) [#/Vol] 0.6 10*3/uL Normal 0.0-0.8 [facility] Comment on above: Performed By: #### C BC, BMP #### [facility] [address] [place] [address] [place] Monocytes/100 WBC (Bld) 9.9 % Normal . [facility] Comment on above: Performed By: #### C BC, BMP #### [facility] [address] Neutrophils (Bld) [#/Vol] 4.2 10*3/uL Normal 1.8-7.7 [facility] Comment on above: Performed By: #### C BC, BMP #### [place] [address] [place] Neutrophils/100 WBC (Bld) 71.8 % Normal . [facility] Comment on above: Performed By: #### C BC, BMP #### [place] [address] [place] NRBC% 0.2 /100{WBC} Normal 0-0.5 [facility] Comment on above: Performed By: #### C BC, BMP #### [facility] [address] [place] [address] [place] Platelet mean volume (Bld) [Entitic vol] 9.0 fL Normal 6.6-10.1 [facility] Comment on above: Performed By: #### C BC, BMP #### [facility] [address] [place] [address] [place] Platelets (Bld) [#/Vol] 180 10*3/uL Normal 150-450 [facility] Comment on above: Performed By: #### C BC, BMP #### [facility] [address] [place] [address] [place] RBC (Bld) [#/Vol] 4.25 10*6/uL Normal 3.90-5.60 [facility] Comment on above: Performed By: #### C BC, BMP #### [facility] [address] WBC (Bld) [#/Vol] 5.8 10*3/uL Normal 4.1-10.5 [facility] Comment on above: Performed By: #### C BC, BMP #### [facility] [address] Creatinine and Glomerular fi ltration rate.predicted panel (S/P/Bld)Ordered By: Darien Escamilla on 06-22-2022 Creatinine [Mass/Vol] 1.62 mg/dL 0.64-1.27 [facility] ECG 12 lead ECGon 06-22-2022 ECG 12 lead ECG [facility] [place] [address] [place] [address] Electrocardiograph Report Signed Patient: Jason Bartholomew MR#: [id number] : 1945 Acct:[id number] Age/Sex: 76 / M ADM Date: 06/22/22 Loc: Room: Type: [facility] Attending Dr: Darien Escamilla MD Ordering Provider: [...] By Gabby Celis DO 06/22 1306 Normal [facility] Eosinophils Auto (Bld) [#/Vo l]Ordered By: Darien Escamilla on 06-22-2022 Eosinophils (Bld) [#/Vol] 0.1 10*3/uL 0.0-0.45 [facility] Eosinophils/100 WBC Auto (Bl d)Ordered By: Darien Escamilla on 06-22-2022 Eosinophils/100 WBC (Bld) 1.5 % . [facility] Erythrocyte distribution wid th Auto (RBC) [Ratio]Ordered By: Darien Escamilla on 06-22-2022 Erythrocyte distribution width (RBC) [Ratio] 14.3 % 12.0-14.8 [facility] Estimated glomerular filtrat ion rate (GFR) non- AmericanOrdered By: Darien Escamilla on 06-22-2022 GFR/1.73 sq M.predicted among non-blacks MDRD (S/P/Bld) [Vol rate/Area] 41 mL/Min [facility] Hematocrit Auto (Bld) [Volum e fraction]Ordered By: Darien Escamilla on 06-22-2022 Hematocrit (Bld) [Volume fraction] 38.3 % 38.8-50.0 [facility] Hemoglobin [Mass/volume] in BloodOrdered By: Darien Escamilla on 06-22-2022 Hemoglobin (Bld) [Mass/Vol] 12.6 g/dL 13.0-17.0 [facility] Leukocytes [#/volume] correc jose for nucleated erythrocytes in Blood by Automated counOrdered By: Darien Escamilla on 06-22-2022 WBC corrected for nucl RBC Auto (Bld) [#/Vol] 5.8 10*3/uL 4.1-10.5 [facility] Lymphocytes Auto (Bld) [#/Vo l]Ordered By: Darien Escamilla on 06-22-2022 Lymphocytes (Bld) [#/Vol] 0.9 10*3/uL 1.00-4.8 [facility] Lymphocytes/100 WBC Auto (Bl d)Ordered By: Darien Escamilla on 06-22-2022 Lymphocytes/100 WBC (Bld) 16.3 % . [facility] MCH Auto (RBC) [Entitic mass ]Ordered By: Darien Escamilla on 06-22-2022 MCH (RBC) [Entitic mass] 29.8 pg 27.5-35.2 [facility] MCHC Auto (RBC) [Mass/Vol]Or dered By: Darien Escamilla on 06-22-2022 MCHC (RBC) [Mass/Vol] 33.0 g/dL 32.5-35.6 [facility] MCV Auto (RBC) [Entitic vol] Ordered By: Darien Escamilla on 06-22-2022 MCV (RBC) [Entitic vol] 90.2 fL 83.5-101 [facility] Monocytes Auto (Bld) [#/Vol] Ordered By: Darien Escamilla on 06-22-2022 Monocytes (Bld) [#/Vol] 0.6 10*3/uL 0.0-0.8 [facility] Monocytes/100 WBC Auto (Bld) Ordered By: Darien Escamilla on 06-22-2022 Monocytes/100 WBC (Bld) 9.9 % . [facility] Neutrophils Auto (Bld) [#/Vo l]Ordered By: Darien Escamilla on 06-22-2022 Neutrophils (Bld) [#/Vol] 4.2 10*3/uL 1.8-7.7 [facility] Neutrophils/100 WBC Auto (Bl d)Ordered By: Darien Escamilla on 06-22-2022 Neutrophils/100 WBC (Bld) 71.8 % . [facility] No Panel InformationOrdered By: Darien Escamilla on 06-22-2022 Estimated GFR () 50 mL/Min [facility] Comment on above: GFR estimated refere nce range: According to KDOQI guidelines, <60 ml/min/1.73m2 is sufficient to diagnose a patient with chronic kidney disease. Pharmacy Creatinine Clearance (Chem N/A [facility] Nucleated erythrocytes [Pres ence] in Blood by Automated countOrdered By: Darien Escamilla on 06-22-2022 Nucleated RBC Auto Ql (Bld) 0.2 /100{WBC} 0-0.5 [facility] Platelet mean volume Auto (B ld) [Entitic vol]Ordered By: Darien Escamilla on 06-22-2022 Platelet mean volume (Bld) [Entitic vol] 9.0 fL 6.6-10.1 [facility] Platelets Auto (Bld) [#/Vol] Ordered By: Darien Escamilla on 06-22-2022 Platelets (Bld) [#/Vol] 180 10*3/uL 150-450 [facility] RBC Auto (Bld) [#/Vol]Ordere d By: Darien Escamilla on 06-22-2022 RBC (Bld) [#/Vol] 4.25 10*6/uL 3.90-5.60 [facility] Serum or plasma anion gap de terminationOrdered By: Darien Escamilla on 06-22-2022 Anion gap [Moles/Vol] 10.3 mmol/L 6.0-15.0 [facility] Serum or plasma calcium abhishek urement (mass/volume)Ordered By: Darien Escamilla on 06-22-2022 Calcium [Mass/Vol] 9.3 mg/dL 8.2-10.2 [facility] Serum or plasma chloride abraham surement (moles/volume)Ordered By: Darien Escamilla on 06-22-2022 Chloride [Moles/Vol] 102 mmol/L 95-114 [facility] Serum or plasma glucose abhishek urement (mass/volume)Ordered By: Darien Escamilla on 06-22-2022 Glucose [Mass/Vol] 202 mg/dL 70-100 [facility] Comment on above: ADA recommended refe rence rangeRandom Glucose Reference Range is dependent on time and content of last meal. Glucose of more than 200 mg/dL in a nonstressed, ambulatory subject supports the diagnosis of Diabetes Mellitus. Serum or plasma potassium me asurement (moles/volume)Ordered By: Darien Escamilla on 06-22-2022 Potassium [Moles/Vol] 4.6 mmol/L 3.5-5.1 [facility] Serum or plasma sodium measu rement (moles/volume)Ordered By: Darien Escamilla on 06-22-2022 Sodium [Moles/Vol] 136 mmol/L 136-146 [facility] Serum or plasma total carbon dioxide measurement (moles/volume)Ordered By: Darien Escamilla on 06-22-2022 CO2 [Moles/Vol] 28.3 mmol/L 22.0-30.0 [facility] Serum or plasma urea nitroge n measurement (mass/volume)Ordered By: Darien Escamilla on 06-22-2022 Urea nitrogen [Mass/Vol] 25 mg/dL 03-25 [facility] WBC Auto (Bld) [#/Vol]Ordere d By: Darienaroldo Escamilla on 06-22-2022 WBC (Bld) [#/Vol] 5.8 10*3/uL 4.1-10.5 [facility] Covid-19 PCR ([facility])on 04-02 SARS-CoV-2 (COVID-19) RNA KOLTON+probe Ql (Unsp spec) Not detected Normal NOT DETECTED [facility] Comment on above: Result Comment: This test is not yet approved or cleared by the [place] FDA. When there are no FDA-approved or cleared tests available, and other criteria are met, FDA can make tests available under an emergency access mechanism called an Emergency Use Authorization (EUA). The EUA for this test is supported by the [place] of Health and Human Service's (HHS's) declaration [...] consistent with SARS-CoV-2. Performed By: #### [facility] #### [facility] [address] [address] [address] Terence Love CTA CHEST WO W [...] by: RAJENDRA FRANCO Date: 2022-04-04 08:00 Normal [facility] CBC AUTO DIFFon 04-02-2022 BASO # 0.0 103/ul Normal 0.0-0.1 [facility] Comment on above: Performed By: #### M G, BMP, URIC, ALB, PHOS #### [facility] [address] [place] [address] Dr. Terence Love Basophils/100 WBC (Bld) 0.5 % Normal 0.2-2.0 [facility] Comment on above: Performed By: #### M G, BMP, URIC, ALB, PHOS #### [facility] [address] [place] [address] Dr. Terence Love EO # 0.1 103/ul Normal 0.0-0.7 [facility] Comment on above: Performed By: #### M G, BMP, URIC, ALB, PHOS #### [facility] [address] [place] [address] Dr. Terence Love Eosinophils/100 WBC (Bld) 1.9 % Normal 0.9-7.0 [facility] Comment on above: Performed By: #### M G, BMP, URIC, ALB, PHOS #### [facility] [address] [place] [address] Dr. Terence Love Erythrocyte distribution width (RBC) [Ratio] 13.8 % Normal 11.0-15.0 [facility] Comment on above: Performed By: #### M G, BMP, URIC, ALB, PHOS #### [facility] [address] [place] [address] Dr. Terence Love Hematocrit (Bld) [Volume fraction] 40.9 % Critically low 42.0-54.0 [facility] Comment on above: Performed By: #### M G, BMP, URIC, ALB, PHOS #### [facility] [address] [place] [address] Dr. Terence Love Hemoglobin (Bld) [Mass/Vol] 13.6 g/dL Critically low 14.0-18.0 [facility] Comment on above: Performed By: #### M G, BMP, URIC, ALB, PHOS #### [facility] [address] [place] [address] Dr. Terence Love IG # 0.02 10e3/ul Normal 0.00-0.03 [facility] Comment on above: Performed By: #### M G, BMP, URIC, ALB, PHOS #### [facility] [address] [place] [address] Dr. Terence Love IG % 0.3 % Normal 0.0-0.5 [facility] Comment on above: Performed By: #### M G, BMP, URIC, ALB, PHOS #### [facility] [address] [place] [address] Dr. Terence Love LYMPH # 1.1 103/ul Critically low 1.2-3.8 [facility] Comment on above: Performed By: #### M G, BMP, URIC, ALB, PHOS #### [facility] [address] [place] [address] Dr. Terence Love Lymphocytes/100 WBC (Bld) 16.9 % Critically low 20.5-60.0 [facility] Comment on above: Performed By: #### M G, BMP, URIC, ALB, PHOS #### [facility] [address] [place] [address] Dr. Terence Love MANUAL DIFF REQ NO Normal [facility] Comment on above: Performed By: #### M G, BMP, URIC, ALB, PHOS #### [facility] [address] [place] [address] Dr. Terence Love MCH (RBC) [Entitic mass] 30.3 pg Normal 25.9-34.0 [facility] Comment on above: Performed By: #### M G, BMP, URIC, ALB, PHOS #### [facility] [address] [place] [address] Dr. Terence Love MCHC (RBC) [Mass/Vol] 33.3 g/dL Normal 29.9-35.2 [facility] Comment on above: Performed By: #### M G, BMP, URIC, ALB, PHOS #### [facility] [address] [place] [address] Dr. Terence Love MCV (RBC) [Entitic vol] 91.1 fL Normal 80.0-94.0 [facility] Comment on above: Performed By: #### M G, BMP, URIC, ALB, PHOS #### [facility] [address] [place] [address] Dr. Terence Love MONO # 0.6 103/ul Normal 0.3-0.8 [facility] Comment on above: Performed By: #### M G, BMP, URIC, ALB, PHOS #### [facility] [address] [place] [address] Dr. Terence Love Monocytes/100 WBC (Bld) 10.1 % Normal 1.7-12.0 [facility] Comment on above: Performed By: #### M G, BMP, URIC, ALB, PHOS #### [facility] [address] [place] [address] Dr. Terence Love NEUT # 4.4 103/ul Normal 1.4-6.5 [facility] Comment on above: Performed By: #### M G, BMP, URIC, ALB, PHOS #### [facility] [address] [place] [address] Dr. Terence Love Neutrophils/100 WBC (Bld) 70.3 % Normal 43.0-75.0 [facility] Comment on above: Performed By: #### M G, BMP, URIC, ALB, PHOS #### [facility] [address] [place] [address] Dr. Terence Love Platelet mean volume (Bld) [Entitic vol] 10.6 fL Normal 9.5-13.5 [facility] Comment on above: Performed By: #### M G, BMP, URIC, ALB, PHOS #### [facility] [address] [place] [address] Dr. Terence Love PLT 179 103/ul Normal 150-450 [facility] [facility] Comment on above: Performed By: #### M G, BMP, URIC, ALB, PHOS #### [facility] [address] [place] [address] Dr. Terence Love RBC 4.49 106/ul Critically low 4.70-6.10 [facility] Comment on above: Performed By: #### M G, BMP, URIC, ALB, PHOS #### [facility] [address] [place] [address] Dr. Terence Love WBC 6.2 103/ul Normal 4.0-11.0 [facility] Comment on above: Performed By: #### M G, BMP, URIC, ALB, PHOS #### [facility] [address] [place] [address] Dr. Terence Love PROF CHEM 8 (BAS METB)on Anion gap [Moles/Vol] 8.8 mmol/L Normal [facility] Comment on above: Performed By: #### B MP #### [facility] [address] [place] [address] Dr. Terence Love Calcium [Mass/Vol] 9.1 mg/dL Normal 8.5-10.1 [facility] Comment on above: Performed By: #### B MP #### [facility] [address] [place] [address] Dr. Terence Love Chloride [Moles/Vol] 102 mmol/L Normal 98-107 [facility] Comment on above: Performed By: #### B MP #### [facility] [address] [place] [address] Dr. Terence Love CO2 [Moles/Vol] 31.6 mmol/L Normal 21.0-32.0 [facility] Comment on above: Performed By: #### B MP #### [facility] [address] [address] [address] Terence Love Creatinine [Mass/Vol] 1.48 mg/dL Critically high 0.70-1.30 [facility] Comment on above: Performed By: #### B MP #### [facility] [address] [address] [address] Terence Love EGFR-AF TOGOLESE 56 mL/min/1.73m2 Critically low >=60 [facility] Comment on above: Performed By: #### B MP #### [facility] [address] [address] [address] Terence Love EGFR-NON AF TOGOLESE 46 mL/min/1.73m2 Critically low >=60 [facility] Comment on above: Performed By: #### B MP #### [facility] [address] [address] [address] Terence Love Glucose [Mass/Vol] 125 mg/dL Critically high 74-106 [facility] Comment on above: Performed By: #### B MP #### [facility] [address] [address] [address] Terence Love Potassium [Moles/Vol] 4.4 mmol/L Normal 3.5-5.1 [facility] Comment on above: Performed By: #### B MP #### [facility] [address] [address] [address] Terence Love Sodium [Moles/Vol] 138 mmol/L Normal 136-145 [facility] Comment on above: Performed By: #### B MP #### [facility] [address] [address] [address] Terence Love Urea nitrogen [Mass/Vol] 24.0 mg/dL Critically high 7.0-18.0 [facility] Comment on above: Performed By: #### B MP #### [facility] [address] [address] [address] Terence Love Urea nitrogen/Creatinine [Mass ratio] 16.2 mg/mg Normal [facility] Comment on above: Performed By: #### B MP #### [facility] [address] [place] [address] Dr. Terence Love PROF CHEM 8 (BAS METB)on Anion gap [Moles/Vol] 13.4 mmol/L Normal [facility] Comment on above: Performed By: #### M G, BMP, URIC, ALB, PHOS #### [facility] [address] [place] [address] Dr. Terence Love Calcium [Mass/Vol] 9.1 mg/dL Normal 8.5-10.1 [facility] Comment on above: Performed By: #### M G, BMP, URIC, ALB, PHOS #### [facility] [address] [place] [address] Dr. Terence Love Chloride [Moles/Vol] 103 mmol/L Normal 98-107 [facility] Comment on above: Performed By: #### M G, BMP, URIC, ALB, PHOS #### [facility] [address] [place] [address] Dr. Terence Love CO2 [Moles/Vol] 27.9 mmol/L Normal 21.0-32.0 [facility] Comment on above: Performed By: #### M G, BMP, URIC, ALB, PHOS #### [facility] [address] [place] [address] Dr. Terence Love Creatinine [Mass/Vol] 1.66 mg/dL Critically high 0.70-1.30 [facility] Comment on above: Performed By: #### M G, BMP, URIC, ALB, PHOS #### [facility] [address] [place] [address] Dr. Terence Love EGFR-AF TOGOLESE 49 mL/min/1.73m2 Critically low >=60 [facility] Comment on above: Performed By: #### M G, BMP, URIC, ALB, PHOS #### [facility] [address] [place] [address] Dr. Terence Love EGFR-NON AF TOGOLESE 40 mL/min/1.73m2 Critically low >=60 [facility] Comment on above: Performed By: #### M G, BMP, URIC, ALB, PHOS #### [facility] [address] [address] [address] Terence Love Glucose [Mass/Vol] 211 mg/dL Critically high 74-106 [facility] Comment on above: Performed By: #### M G, BMP, URIC, ALB, PHOS #### [facility] [address] [place] [address] Dr. Terence Love Potassium [Moles/Vol] 4.3 mmol/L Normal 3.5-5.1 [facility] Comment on above: Performed By: #### M G, BMP, URIC, ALB, PHOS #### [facility] [address] [place] [address] Dr. Terence Love Sodium [Moles/Vol] 140 mmol/L Normal 136-145 [facility] Comment on above: Performed By: #### M G, BMP, URIC, ALB, PHOS #### [facility] [address] [place] [address] Dr. Terence Love Urea nitrogen [Mass/Vol] 31.0 mg/dL Critically high 7.0-18.0 [facility] Comment on above: Performed By: #### M G, BMP, URIC, ALB, PHOS #### [facility] [address] [place] [address] Dr. Terence Love Urea nitrogen/Creatinine [Mass ratio] 18.7 mg/mg Normal [facility] Comment on above: Performed By: #### M G, BMP, URIC, ALB, PHOS #### [facility] [address] [place] [address] Dr. Terence Love ECHOCARDIO M/2D COMPLETEon 0 02-02-2022 ECHOCARDIO M/2D COMPLETE Patient: JASON BARTHOLOMEW Exam Date: 02/02/2022 : 1945 Gender:M Ordering : DR ISH STOVER M.D. Admission #: [id number] Family : DR IDRIS JOSE . Order #: [id number] CLICK HERE TO VIEW EXAM ECHOCARDIOGRAM REPORT [...] Boyd M.D. on 02/02/2022 at 16:56 Normal [facility] MR cervical spine wo conon 0 01-28-2022 MR cervical spine wo con [facility] [place] [address] MRI Report Signed Patient: Jason Bartholomew MR#: [id number] : 1945 Acct:[id number] Age/Sex: 76 / M ADM Date: 01/28/22 Loc: Room: Type: [facility] Attending Dr: Idris Jose MD Copies to: [...] Elie Gerardo M.D.01/28/2022 12:25 PM Dictation Location: [place] [address] Transcribed By: STEVEN 01/28/22 1225 Dictated By: Elie Gerardo II, MD 01/28/22 1211 Signed By: 01/28/22 1225 Normal [facility] PTH INTACTon 01-08-2022 PTH, Intact 27 pg/mL Normal 15-65 [facility] Comment on above: Performed By: #### M G, BMP, URIC, ALB, PHOS #### [facility] [address] [place] [address] Dr. Terence Love ALBUMINon 01-07-2022 Albumin [Mass/Vol] 3.9 g/dL Normal 3.4-5.0 [facility] Comment on above: Performed By: #### M G, BMP, URIC, ALB, PHOS #### [facility] [address] [place] [address] Dr. Terence Love CBC AUTO DIFFon 01-07-2022 BASO # 0.0 103/ul Normal 0.0-0.1 [facility] Comment on above: Performed By: #### C BC #### [facility] [address] [place] [address] Dr. Terence Love Basophils/100 WBC (Bld) 0.3 % Normal 0.2-2.0 [facility] Comment on above: Performed By: #### C BC #### [facility] [address] [place] [address] Dr. Terence Love EO # 0.1 103/ul Normal 0.0-0.7 [facility] Comment on above: Performed By: #### C BC #### [facility] [address] [place] [address] Dr. Terence Love Eosinophils/100 WBC (Bld) 2.0 % Normal 0.9-7.0 [facility] Comment on above: Performed By: #### C BC #### [facility] [address] [place] [address] Dr. Terence Love Erythrocyte distribution width (RBC) [Ratio] 13.9 % Normal 11.0-15.0 [facility] Comment on above: Performed By: #### C BC #### [facility] [address] [place] [address] Dr. Terence Love Hematocrit (Bld) [Volume fraction] 45.2 % Normal 42.0-54.0 [facility] Comment on above: Performed By: #### C BC #### [facility] [address] [place] [address] Dr. Terence Love Hemoglobin (Bld) [Mass/Vol] 14.4 g/dL Normal 14.0-18.0 [facility] Comment on above: Performed By: #### C BC #### [facility] [address] [place] [address] Dr. Terence Love IG # 0.03 10e3/ul Normal 0.00-0.03 [facility] Comment on above: Performed By: #### C BC #### [facility] [address] [place] [address] Dr. Terence Love IG % 0.5 % Normal 0.0-0.5 [facility] Comment on above: Performed By: #### C BC #### [facility] [address] [place] [address] Dr. Terence Love LYMPH # 1.0 103/ul Critically low 1.2-3.8 [facility] Comment on above: Performed By: #### C BC #### [facility] [address] [place] [address] Dr. Terence Love Lymphocytes/100 WBC (Bld) 16.3 % Critically low 20.5-60.0 [facility] Comment on above: Performed By: #### C BC #### [facility] [address] [place] [address] Dr. Terence Love MANUAL DIFF REQ NO Normal [facility] Comment on above: Performed By: #### C BC #### [facility] [address] [place] [address] Dr. Terence Love MCH (RBC) [Entitic mass] 29.3 pg Normal 25.9-34.0 [facility] Comment on above: Performed By: #### C BC #### [facility] [address] [place] [address] Dr. Terence Love MCHC (RBC) [Mass/Vol] 31.9 g/dL Normal 29.9-35.2 [facility] Comment on above: Performed By: #### C BC #### [facility] [address] [address] [address] Terence Love MCV (RBC) [Entitic vol] 92.1 fL Normal 80.0-94.0 [facility] Comment on above: Performed By: #### C BC #### [facility] [address] [address] [address] Terence Love MONO # 0.6 103/ul Normal 0.3-0.8 [facility] Comment on above: Performed By: #### C BC #### [facility] [address] [address] [address] Terence Love Monocytes/100 WBC (Bld) 9.3 % Normal 1.7-12.0 [facility] Comment on above: Performed By: #### C BC #### [facility] [address] [place] [address] Dr. Terence Love NEUT # 4.4 103/ul Normal 1.4-6.5 [facility] Comment on above: Performed By: #### C BC #### [facility] [address] [place] [address] Dr. Terence Love Neutrophils/100 WBC (Bld) 71.6 % Normal 43.0-75.0 [facility] Comment on above: Performed By: #### C BC #### [facility] [address] [address] [address] Terence Love Platelet mean volume (Bld) [Entitic vol] 10.8 fL Normal 9.5-13.5 [facility] Comment on above: Performed By: #### C BC #### [facility] [address] [address] [address] Terence Love PLT 203 103/ul Normal 150-450 [facility] Comment on above: Performed By: #### C BC #### [facility] [address] [address] [address] Terence Love RBC 4.91 106/ul Normal 4.70-6.10 [facility] Comment on above: Performed By: #### C BC #### [facility] [address] [place] [address] Dr. Terence Love WBC 6.1 103/ul Normal 4.0-11.0 [facility] Comment on above: Performed By: #### C BC #### [facility] [address] [place] [address] Dr. Ternece Love MAGNESIUMon 01-07-2022 Magnesium [Mass/Vol] 1.7 mg/dL Critically low 1.8-2.4 [facility] Comment on above: Performed By: #### M G, BMP, URIC, ALB, PHOS #### [facility] [address] [place] [address] Dr. Terence Love MICROALB CREAT RATIO RANDOMo n 01-07-2022 mALB 2.3 mg/L Normal <=30.0 [facility] Comment on above: Performed By: #### M CRR #### [facility] [address] [place] [address] Dr. Terence Love MALB CR RATIO 18.9 mg/g Normal 0.0-29.9 [facility] Comment on above: Performed By: #### M CRR #### [facility] [address] [place] [address] Dr. Terence Love MALB CR RATIO RANGE SEE BELOW Normal [facility] Comment on above: Result Comment: NO M ICROALBUMINURIA 0-29 MG/G CLINICAL MICROALBUMINURIA 30-300 MG/G MACROALBUMINURIA >300 MG/G Performed By: #### M CRR #### [facility] [address] [place] [address] Dr. Terence Love URINE CREAT 121.78 mg/dL Normal 20.00-300.00 [facility] Comment on above: Performed By: #### M CRR #### [facility] [address] [place] [address] Dr. Terence Love PHOSPHORUSon 01-07-2022 Phosphate [Mass/Vol] 4.2 mg/dL Normal 2.6-4.7 [facility] Comment on above: Performed By: #### M G, BMP, URIC, ALB, PHOS #### [facility] [address] [place] [address] Dr. Terence Love PROF CHEM 8 (BAS METB)on Anion gap [Moles/Vol] 11.0 mmol/L Normal Th [facility] Comment on above: Performed By: #### M G, BMP, URIC, ALB, PHOS #### [facility] [address] [address] [address] Terence Love Calcium [Mass/Vol] 9.2 mg/dL Normal 8.5-10.1 [facility] Comment on above: Performed By: #### M G, BMP, URIC, ALB, PHOS #### [facility] [address] [place] [address] Dr. Terence Love Chloride [Moles/Vol] 102 mmol/L Normal 98-107 [facility] Comment on above: Performed By: #### M G, BMP, URIC, ALB, PHOS #### [facility] [address] [place] [address] Dr. Terence Love CO2 [Moles/Vol] 29.2 mmol/L Normal 21.0-32.0 [facility] Comment on above: Performed By: #### M G, BMP, URIC, ALB, PHOS #### [facility] [address] [place] [address] Dr. Terence Love Creatinine [Mass/Vol] 1.58 mg/dL Critically high 0.70-1.30 [facility] Comment on above: Performed By: #### M G, BMP, URIC, ALB, PHOS #### [facility] [address] [place] [address] Dr. Terence Love EGFR-AF TOGOLESE 52 mL/min/1.73m2 Critically low >=60 [facility] Comment on above: Performed By: #### M G, BMP, URIC, ALB, PHOS #### [facility] [address] [place] [address] Dr. Terence Love EGFR-NON AF TOGOLESE 43 mL/min/1.73m2 Critically low >=60 [facility] Comment on above: Performed By: #### M G, BMP, URIC, ALB, PHOS #### [facility] [address] [address] [address] Terence Love Glucose [Mass/Vol] 220 mg/dL Critically high 74-106 [facility] Comment on above: Performed By: #### M G, BMP, URIC, ALB, PHOS #### [facility] [address] [place] [address] Dr. Terence Love Potassium [Moles/Vol] 4.9 mmol/L Normal 3.5-5.1 [facility] Comment on above: Performed By: #### M G, BMP, URIC, ALB, PHOS #### [facility] [address] [place] [address] Dr. Terence Love Sodium [Moles/Vol] 138 mmol/L Normal 136-145 [facility] Comment on above: Performed By: #### M G, BMP, URIC, ALB, PHOS #### [facility] [address] [place] [address] Dr. Terence Love Urea nitrogen [Mass/Vol] 22.0 mg/dL Critically high 7.0-18.0 [facility] Comment on above: Performed By: #### M G, BMP, URIC, ALB, PHOS #### [facility] [address] [place] [address] Dr. Terence Love Urea nitrogen/Creatinine [Mass ratio] 13.9 mg/mg Normal [facility] Comment on above: Performed By: #### M G, BMP, URIC, ALB, PHOS #### [facility] [address] [place] [address] Dr. Terence Love UA RANDOMon 01-07-2022 Bilirubin Ql (U) Negative Normal NEGATIVE [facility] Comment on above: Performed By: #### M G, BMP, URIC, ALB, PHOS #### [facility] [address] [place] [address] Dr. Terence Love Clarity (U) CLEAR Normal CLEAR [facility] Comment on above: Performed By: #### M G, BMP, URIC, ALB, PHOS #### [facility] [address] [address] [address] Terence Love Color (U) YELLOW Normal YELLOW [facility] Comment on above: Performed By: #### M G, BMP, URIC, ALB, PHOS #### [facility] [address] [place] [address] Dr. Terence Love Glucose Ql (U) 250 mg/dl Abnormal NEGATIVE [facility] Comment on above: Performed By: #### M G, BMP, URIC, ALB, PHOS #### [facility] [address] [place] [address] Dr. Terence Love Hemoglobin Ql (U) Negative Normal NEGATIVE [facility] Comment on above: Performed By: #### M G, BMP, URIC, ALB, PHOS #### [facility] [address] [place] [address] Dr. Terence Love Ketones Ql (U) Negative Normal NEGATIVE [facility] Comment on above: Performed By: #### M G, BMP, URIC, ALB, PHOS #### [facility] [address] [place] [address] Dr. Terence Love LEUKOCYTES Negative Normal NEGATIVE [facility] Comment on above: Performed By: #### M G, BMP, URIC, ALB, PHOS #### [facility] [address] [place] [address] Dr. Terence Love Nitrite Ql (U) Negative Normal NEGATIVE [facility] Comment on above: Performed By: #### M G, BMP, URIC, ALB, PHOS #### [facility] [address] [place] [address] Dr. Terence Love pH (U) 5.5 [pH] Normal 5-9 [facility] Comment on above: Performed By: #### M G, BMP, URIC, ALB, PHOS #### [facility] [address] [place] [address] Dr. Terence Love SPEC GRAVITY 1.020 Normal 1.005-<=1.02 5 [facility] Comment on above: Performed By: #### M G, BMP, URIC, ALB, PHOS #### [facility] [address] [place] [address] Dr. Terence Love UA PROTEIN Negative Normal NEGATIVE/ TRACE [facility] Comment on above: Performed By: #### M G, BMP, URIC, ALB, PHOS #### [facility] [address] [place] [address] Dr. Terence Love Urobilinogen Qn (U) 0.2 {Cherise'U}/dL Normal 0.2 - 1. 0 [facility] Comment on above: Performed By: #### M G, BMP, URIC, ALB, PHOS #### [facility] [address] [place] [address] Dr. Terence Love URIC ACID SERUMon 01-07-2022 Urate [Mass/Vol] 5.7 mg/dL Normal 3.5-7.2 [facility] Comment on above: Performed By: #### M G, BMP, URIC, ALB, PHOS #### [facility] [address] [place] [address] Dr. Terence Love VITAMIN D 25 OHon 01-07-2022 VIT D 25-OH 32.1 ng/mL Normal [facility] Comment on above: Performed By: #### V ITAD #### [facility] [address] [place] [address] Dr. Terence Love VIT D RANGES SEE BELOW Normal [facility] Comment on above: Result Comment: <20 ng/mL Vit D deficient 20 - <30 ng/mL Vit D insufficient 30 - 100 ng/mL Vit D sufficient >100 ng/mL Potential Toxicity Performed By: #### V ITAD #### [facility] [address] [place] [address] Dr. Terence Love CBC W MANUAL DIFFon 12-17-19 22 ATYPICAL LYMPH # 0.29 103/ul Normal [facility] Comment on above: Performed By: #### M G, BMP, URIC, ALB, PHOS #### [facility] [address] [place] [address] Dr. Terence Love ATYPICAL LYMPH % 3 % Normal [facility] Comment on above: Performed By: #### M G, BMP, URIC, ALB, PHOS #### [facility] [address] [place] [address] Dr. Terence Love BAND # 0.2 103/ul Normal 0.0-0.3 [facility] Comment on above: Performed By: #### M G, BMP, URIC, ALB, PHOS #### [facility] [address] [place] [address] Dr. Terence Love BAND % 2 % Normal 0-5 [facility] Comment on above: Performed By: #### M G, BMP, URIC, ALB, PHOS #### [facility] [address] [place] [address] Dr. Terence Love BASOM # 0.00 103/ul Normal 0.00-0.10 [facility] Comment on above: Performed By: #### M G, BMP, URIC, ALB, PHOS #### [facility] [address] [place] [address] Dr. Terence Love BASOM % 0.0 % Critically low 0.2-2.0 [facility] Comment on above: Performed By: #### M G, BMP, URIC, ALB, PHOS #### [facility] [address] [place] [address] Dr. Terence Love BLAST # Normal [facility] Comment on above: Performed By: #### M G, BMP, URIC, ALB, PHOS #### [facility] [address] [place] [address] Dr. Terence Love BLAST % Normal [facility] Comment on above: Performed By: #### M G, BMP, URIC, ALB, PHOS #### [facility] [address] [place] [address] Dr. Terence Love CORRECTED WBC Normal 4.0-11.0 [facility] Comment on above: Performed By: #### M G, BMP, URIC, ALB, PHOS #### [facility] [address] [place] [address] Dr. Terence Love EOS # 0.00 103/ul Normal 0.00-0.70 [facility] Comment on above: Performed By: #### M G, BMP, URIC, ALB, PHOS #### [facility] [address] [place] [address] Dr. Terence Love EOS% 0.0 % Critically low 0.9-7.0 [facility] Comment on above: Performed By: #### M G, BMP, URIC, ALB, PHOS #### [facility] [address] [place] [address] Dr. Terence Love HCT 41.3 % Critically low 42.0-54.0 [facility] Comment on above: Performed By: #### M G, BMP, URIC, ALB, PHOS #### [facility] [address] [place] [address] Dr. Terence Love HGB 13.8 g/dl Critically low 14.0-18.0 [facility] Comment on above: Performed By: #### M G, BMP, URIC, ALB, PHOS #### [facility] [address] [place] [address] Dr. Terence Loev LYMPHM # 0.19 103/ul Critically low 1.20-3.80 [facility] Comment on above: Performed By: #### M G, BMP, URIC, ALB, PHOS #### [facility] [address] [place] [address] Dr. Terence Love LYMPHM% 2.0 % Critically low 20.5-60.0 [facility] Comment on above: Performed By: #### M G, BMP, URIC, ALB, PHOS #### [facility] [address] [place] [address] Dr. Terence Love MCH 29.4 pg Normal 25.9-34.0 [facility] Comment on above: Performed By: #### M G, BMP, URIC, ALB, PHOS #### [facility] [address] [place] [address] Dr. Terence Love MCHC 33.4 g/dl Normal 29.9-35.2 [facility] [facility] Comment on above: Performed By: #### M G, BMP, URIC, ALB, PHOS #### [facility] [address] [place] [address] Dr. Terence Love MCV 87.9 fL Normal 80.0-94.0 [facility] Comment on above: Performed By: #### M G, BMP, URIC, ALB, PHOS #### [facility] [address] [place] [address] Dr. Terence Love METAMYELOCYTE # Normal [facility] Comment on above: Performed By: #### M G, BMP, URIC, ALB, PHOS #### [facility] [address] [address] [address] Terence Love METAMYELOCYTE % Normal [facility] Comment on above: Performed By: #### M G, BMP, URIC, ALB, PHOS #### [facility] [address] [place] [address] Dr. Terence Love MONOM# 0.10 103/ul Critically low 0.30-0.80 [facility] Comment on above: Performed By: #### M G, BMP, URIC, ALB, PHOS #### [facility] [address] [place] [address] Dr. Terence Love MONOM% 1.0 % Critically low 1.7-12.0 [facility] Comment on above: Performed By: #### M G, BMP, URIC, ALB, PHOS #### [facility] [address] [place] [address] Dr. Terence Love MPV 10.7 fL Normal 9.5-13.5 [facility] Comment on above: Performed By: #### M G, BMP, URIC, ALB, PHOS #### [facility] [address] [place] [address] Dr. Terence Love MYELOCYTE # Normal [facility] Comment on above: Performed By: #### M G, BMP, URIC, ALB, PHOS #### [facility] [address] [place] [address] Dr. Terence Love MYELOCYTE % Normal [facility] Comment on above: Performed By: #### M G, BMP, URIC, ALB, PHOS #### [facility] [address] [place] [address] Dr. Terence Love NRBC Normal [facility] Comment on above: Performed By: #### M G, BMP, URIC, ALB, PHOS #### [facility] [address] [place] [address] Dr. Terence Love PLT 214 103/ul Normal 150-450 [facility] Comment on above: Performed By: #### M G, BMP, URIC, ALB, PHOS #### [facility] [address] [place] [address] Dr. Terence Love RBC 4.70 106/ul Normal 4.70-6.10 [facility] Comment on above: Performed By: #### M G, BMP, URIC, ALB, PHOS #### [facility] [address] [place] [address] Dr. Terence Love RDW 13.2 % Normal 11.0-15.0 [facility] Comment on above: Performed By: #### M G, BMP, URIC, ALB, PHOS #### [facility] [address] [place] [address] Dr. Terence Love SEG # 8.83 103/ul Critically high 1.40-6.50 [facility] Comment on above: Performed By: #### M G, BMP, URIC, ALB, PHOS #### [facility] [address] [place] [address] Dr. Terence Love SEG % 92.0 % Critically high 43.0-75.0 [facility] Comment on above: Performed By: #### M G, BMP, URIC, ALB, PHOS #### [facility] [address] [place] [address] Dr. Terence Love WBC 9.6 103/ul Normal 4.0-11.0 [facility] Comment on above: Performed By: #### M G, BMP, URIC, ALB, PHOS #### [facility] [address] [place] [address] Dr. Terence Love PROF CHEM 8 (BAS METB)on Anion gap [Moles/Vol] 13.7 mmol/L Normal Th [facility] Comment on above: Performed By: #### M G, BMP, URIC, ALB, PHOS #### [facility] [address] [address] [address] Terence Love Calcium [Mass/Vol] 9.1 mg/dL Normal 8.5-10.1 [facility] Comment on above: Performed By: #### M G, BMP, URIC, ALB, PHOS #### [facility] [address] [place] [address] Dr. Terence Love Chloride [Moles/Vol] 102 mmol/L Normal 98-107 [facility] Comment on above: Performed By: #### M G, BMP, URIC, ALB, PHOS #### [facility] [address] [place] [address] Dr. Terence Love CO2 [Moles/Vol] 25.2 mmol/L Normal 21.0-32.0 [facility] Comment on above: Performed By: #### M G, BMP, URIC, ALB, PHOS #### [facility] [address] [place] [address] Dr. Terence Love Creatinine [Mass/Vol] 1.57 mg/dL Critically high 0.70-1.30 [facility] Comment on above: Performed By: #### M G, BMP, URIC, ALB, PHOS #### [facility] [address] [place] [address] Dr. Terence Love EGFR-AF TOGOLESE 52 mL/min/1.73m2 Critically low >=60 [facility] Comment on above: Performed By: #### M G, BMP, URIC, ALB, PHOS #### [facility] [address] [place] [address] Dr. eTrence Love EGFR-NON AF TOGOLESE 43 mL/min/1.73m2 Critically low >=60 [facility] Comment on above: Performed By: #### M G, BMP, URIC, ALB, PHOS #### [facility] [address] [place] [address] Dr. Terence Love Glucose [Mass/Vol] 193 mg/dL Critically high 74-106 [facility] Comment on above: Performed By: #### M G, BMP, URIC, ALB, PHOS #### [facility] [address] [place] [address] Dr. Terence Love Potassium [Moles/Vol] 3.9 mmol/L Normal 3.5-5.1 [facility] Comment on above: Performed By: #### M G, BMP, URIC, ALB, PHOS #### [facility] [address] [place] [address] Dr. Terence Love Sodium [Moles/Vol] 137 mmol/L Normal 136-145 [facility] Comment on above: Performed By: #### M G, BMP, URIC, ALB, PHOS #### [facility] [address] [place] [address] Dr. Terence Love Urea nitrogen [Mass/Vol] 26.0 mg/dL Critically high 7.0-18.0 [facility] Comment on above: Performed By: #### M G, BMP, URIC, ALB, PHOS #### [facility] [address] [place] [address] Dr. Terence Love Urea nitrogen/Creatinine [Mass ratio] 16.6 mg/mg Normal [facility] Comment on above: Performed By: #### M G, BMP, URIC, ALB, PHOS #### [facility] [address] [place] [address] Dr. Terence Love CBC AUTO DIFFon 12-15-2021 BASO # 0.0 103/ul Normal 0.0-0.1 [facility] Comment on above: Performed By: #### M G, BMP, URIC, ALB, PHOS #### [facility] [address] [place] [address] Dr. Terence Love Basophils/100 WBC (Bld) 0.4 % Normal 0.2-2.0 [facility] Comment on above: Performed By: #### M G, BMP, URIC, ALB, PHOS #### [facility] [address] [place] [address] Dr. Terence Love EO # 0.1 103/ul Normal 0.0-0.7 [facility] Comment on above: Performed By: #### M G, BMP, URIC, ALB, PHOS #### [facility] [address] [place] [address] Dr. Terence Love Eosinophils/100 WBC (Bld) 1.2 % Normal 0.9-7.0 [facility] Comment on above: Performed By: #### M G, BMP, URIC, ALB, PHOS #### [facility] [address] [place] [address] Dr. Terence Love Erythrocyte distribution width (RBC) [Ratio] 13.2 % Normal 11.0-15.0 [facility] Comment on above: Performed By: #### M G, BMP, URIC, ALB, PHOS #### [facility] [address] [place] [address] Dr. Terence Love Hematocrit (Bld) [Volume fraction] 43.3 % Normal 42.0-54.0 [facility] Comment on above: Performed By: #### M G, BMP, URIC, ALB, PHOS #### [facility] [address] [place] [address] Dr. Terence Love Hemoglobin (Bld) [Mass/Vol] 14.1 g/dL Normal 14.0-18.0 [facility] Comment on above: Performed By: #### M G, BMP, URIC, ALB, PHOS #### [facility] [address] [place] [address] Dr. Terence Love IG # 0.02 10e3/ul Normal 0.00-0.03 [facility] Comment on above: Performed By: #### M G, BMP, URIC, ALB, PHOS #### [facility] [address] [place] [address] Dr. Terence Love IG % 0.3 % Normal 0.0-0.5 [facility] Comment on above: Performed By: #### M G, BMP, URIC, ALB, PHOS #### [facility] [address] [place] [address] Dr. Terence Love LYMPH # 1.3 103/ul Normal 1.2-3.8 [facility] Comment on above: Performed By: #### M G, BMP, URIC, ALB, PHOS #### [facility] [address] [place] [address] Dr. Terence Love Lymphocytes/100 WBC (Bld) 18.0 % Critically low 20.5-60.0 [facility] Comment on above: Performed By: #### M G, BMP, URIC, ALB, PHOS #### [facility] [address] [place] [address] Dr. Terence Love MANUAL DIFF REQ NO Normal [facility] Comment on above: Performed By: #### M G, BMP, URIC, ALB, PHOS #### [facility] [address] [place] [address] Dr. Terence Love MCH (RBC) [Entitic mass] 29.4 pg Normal 25.9-34.0 [facility] Comment on above: Performed By: #### M G, BMP, URIC, ALB, PHOS #### [facility] [address] [place] [address] Dr. Terence Love MCHC (RBC) [Mass/Vol] 32.6 g/dL Normal 29.9-35.2 [facility] Comment on above: Performed By: #### M G, BMP, URIC, ALB, PHOS #### [facility] [address] [place] [address] Dr. Terence Love MCV (RBC) [Entitic vol] 90.2 fL Normal 80.0-94.0 [facility] Comment on above: Performed By: #### M G, BMP, URIC, ALB, PHOS #### [facility] [address] [place] [address] Dr. Terence Love MONO # 0.8 103/ul Normal 0.3-0.8 [facility] Comment on above: Performed By: #### M G, BMP, URIC, ALB, PHOS #### [facility] [address] [place] [address] Dr. Terence Love Monocytes/100 WBC (Bld) 11.2 % Normal 1.7-12.0 [facility] Comment on above: Performed By: #### M G, BMP, URIC, ALB, PHOS #### [facility] [address] [place] [address] Dr. Terence Love NEUT # 5.0 103/ul Normal 1.4-6.5 [facility] Comment on above: Performed By: #### M G, BMP, URIC, ALB, PHOS #### [facility] [address] [place] [address] Dr. Terence Love Neutrophils/100 WBC (Bld) 68.9 % Normal 43.0-75.0 [facility] Comment on above: Performed By: #### M G, BMP, URIC, ALB, PHOS #### [facility] [address] [place] [address] Dr. Terence Love Platelet mean volume (Bld) [Entitic vol] 10.5 fL Normal 9.5-13.5 [facility] Comment on above: Performed By: #### M G, BMP, URIC, ALB, PHOS #### [facility] [address] [place] [address] Dr. Terence Love PLT 211 103/ul Normal 150-450 [facility] Comment on above: Performed By: #### M G, BMP, URIC, ALB, PHOS #### [facility] [address] [place] [address] Dr. Terence Love RBC 4.80 106/ul Normal 4.70-6.10 [facility] Comment on above: Performed By: #### M G, BMP, URIC, ALB, PHOS #### [facility] [address] [place] [address] Dr. Terence Love WBC 7.3 103/ul Normal 4.0-11.0 [facility] Comment on above: Performed By: #### M G, BMP, URIC, ALB, PHOS #### [facility] [address] [place] [address] STROKE HEAD WOon 12-16-19 CT STROKE HEAD WO NONCONTRAST HEAD CT [...] by: GEOVANNA URBINA Date: 2021-12-15 14:54 Normal [facility] CTA HEAD WO W CONon 12-16-19 22 [...] of the carotid arteries, vertebral arteries, or [place]. 2. 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 3. No specific findings to account for patient's symptoms. Electronically authenticated by: PAPITO GUAMAN Date: 2021-12-15 17:12 Normal [facility] Covid-19 PCR (CVDTB)on 12-01 SARS-CoV-2 (COVID-19) RNA KOLTON+probe Ql (Unsp spec) Not detected Normal NOT DETECTED [facility] Comment on above: Result Comment: When diagnostic [...] for this test is supported by the [employer] of Health and Human Service's declaration that [...] M G, BMP, URIC, ALB, PHOS #### [facility] [address] [place] [address] Dr. Terence Love ER URINE PROFILEon 2 Bilirubin Ql (U) Negative Normal NEGATIVE [facility] Comment on above: Performed By: #### M G, BMP, URIC, ALB, PHOS #### [facility] [address] [place] [address] Dr. Terence Love Clarity (U) CLEAR Normal CLEAR [facility] Comment on above: Performed By: #### M G, BMP, URIC, ALB, PHOS #### [facility] [address] [place] [address] Dr. Terence Love Color (U) LT. YELLOW Normal YELLOW [facility] Comment on above: Performed By: #### M G, BMP, URIC, ALB, PHOS #### [facility] [address] [place] [address] Dr. Terence TORIBIO A micrscopic examination will be performed if indicated. Normal [facility] Comment on above: Performed By: #### M G, BMP, URIC, ALB, PHOS #### [facility] [address] [address] [address] Terence Love Glucose Ql (U) 100 mg/dl Abnormal NEGATIVE [facility] Comment on above: Performed By: #### M G, BMP, URIC, ALB, PHOS #### [facility] [address] [place] [address] Dr. Terence Love Hemoglobin Ql (U) Negative Normal NEGATIVE [facility] Comment on above: Performed By: #### M G, BMP, URIC, ALB, PHOS #### [facility] [address] [place] [address] Dr. Terence Love Ketones Ql (U) Negative Normal NEGATIVE [facility] Comment on above: Performed By: #### M G, BMP, URIC, ALB, PHOS #### [facility] [address] [place] [address] Dr. Terence Love LEUKOCYTES Negative Normal NEGATIVE [facility] Comment on above: Performed By: #### M G, BMP, URIC, ALB, PHOS #### [facility] [address] [address] [address] Terence Love Nitrite Ql (U) Negative Normal NEGATIVE [facility] Comment on above: Performed By: #### M G, BMP, URIC, ALB, PHOS #### [facility] [address] [address] [address] Terence Love pH (U) 5.5 [pH] Normal 5-9 [facility] Comment on above: Performed By: #### M G, BMP, URIC, ALB, PHOS #### [facility] [address] [place] [address] Dr. Terence Love SPEC GRAVITY 1.010 Normal 1.005-<=1.02 5 [facility] Comment on above: Performed By: #### M G, BMP, URIC, ALB, PHOS #### [facility] [address] [place] [address] Dr. Terence Love UA PROTEIN Negative Normal NEGATIVE/ TRACE [facility] Comment on above: Performed By: #### M G, BMP, URIC, ALB, PHOS #### [facility] [address] [place] [address] Dr. Terence Love UR MICRO IND NOT INDICATED Normal [facility] Comment on above: Performed By: #### M G, BMP, URIC, ALB, PHOS #### [facility] [address] [place] [address] Dr. Terence Love Urobilinogen Qn (U) 0.2 {Cherise'U}/dL Normal 0.2 - 1. 0 [facility] Comment on above: Performed By: #### M G, BMP, URIC, ALB, PHOS #### [facility] [address] [place] [address] Dr. Terence Love POINT OF CARE GLUCOSEon 12-01 Glucose [Mass/Vol] 124 mg/dL Critically high 74-106 [facility] Comment on above: Performed By: #### M G, BMP, URIC, ALB, PHOS #### [facility] [address] [place] [address] Dr. Terence Love PROF 14(COMP METB)on 022 Albumin [Mass/Vol] 4.0 g/dL Normal 3.4-5.0 [facility] Comment on above: Performed By: #### M G, BMP, URIC, ALB, PHOS #### [facility] [address] [place] [address] Dr. Terence Love Albumin/Globulin [Mass ratio] 1.1 {ratio} Normal [facility] Comment on above: Performed By: #### M G, BMP, URIC, ALB, PHOS #### [facility] [address] [place] [address] Dr. Terence Love ALP [Catalytic activity/Vol] 81 U/L Normal 46-116 [facility] Comment on above: Performed By: #### M G, BMP, URIC, ALB, PHOS #### [facility] [address] [place] [address] Dr. Terence Love ALT [Catalytic activity/Vol] 29 U/L Normal 16-63 [facility] Comment on above: Performed By: #### M G, BMP, URIC, ALB, PHOS #### [facility] [address] [place] [address] Dr. Terence Love Anion gap [Moles/Vol] 14.5 mmol/L Normal Th [facility] Comment on above: Performed By: #### M G, BMP, URIC, ALB, PHOS #### [facility] [address] [place] [address] Dr. Terence Love AST [Catalytic activity/Vol] 18 U/L Normal 15-37 [facility] Comment on above: Performed By: #### M G, BMP, URIC, ALB, PHOS #### [facility] [address] [place] [address] Dr. Terence Love Bilirubin [Mass/Vol] 0.8 mg/dL Normal 0.2-1.0 [facility] Comment on above: Performed By: #### M G, BMP, URIC, ALB, PHOS #### [facility] [address] [place] [address] Dr. Terence Love Calcium [Mass/Vol] 9.3 mg/dL Normal 8.5-10.1 [facility] Comment on above: Performed By: #### M G, BMP, URIC, ALB, PHOS #### [facility] [address] [place] [address] Dr. Terence Love Chloride [Moles/Vol] 102 mmol/L Normal 98-107 [facility] Comment on above: Performed By: #### M G, BMP, URIC, ALB, PHOS #### [facility] [address] [place] [address] Dr. Terence Love CO2 [Moles/Vol] 26.7 mmol/L Normal 21.0-32.0 [facility] Comment on above: Performed By: #### M G, BMP, URIC, ALB, PHOS #### [facility] [address] [place] [address] Dr. Terence Love Creatinine [Mass/Vol] 1.56 mg/dL Critically high 0.70-1.30 [facility] Comment on above: Performed By: #### M G, BMP, URIC, ALB, PHOS #### [facility] [address] [place] [address] Dr. Terence Love EGFR-AF TOGOLESE 52 mL/min/1.73m2 Critically low >=60 [facility] Comment on above: Performed By: #### M G, BMP, URIC, ALB, PHOS #### [facility] [address] [place] [address] Dr. Terence Love EGFR-NON AF TOGOLESE 43 mL/min/1.73m2 Critically low >=60 [facility] Comment on above: Performed By: #### M G, BMP, URIC, ALB, PHOS #### [facility] [address] [place] [address] Dr. Terence Love Globulin (S) [Mass/Vol] 3.6 g/dL Normal [facility] Comment on above: Performed By: #### M G, BMP, URIC, ALB, PHOS #### [facility] [address] [place] [address] Dr. Terence Love Glucose [Mass/Vol] 179 mg/dL Critically high 74-106 [facility] Comment on above: Performed By: #### M G, BMP, URIC, ALB, PHOS #### [facility] [address] [place] [address] Dr. Terence Love Potassium [Moles/Vol] 4.2 mmol/L Normal 3.5-5.1 [facility] Comment on above: Performed By: #### M G, BMP, URIC, ALB, PHOS #### [facility] [address] [place] [address] Dr. Terence Love Protein [Mass/Vol] 7.6 g/dL Normal 6.4-8.2 [facility] Comment on above: Performed By: #### M G, BMP, URIC, ALB, PHOS #### [facility] [address] [address] [address] Terence Love Sodium [Moles/Vol] 139 mmol/L Normal 136-145 [facility] Comment on above: Performed By: #### M G, BMP, URIC, ALB, PHOS #### [facility] [address] [place] [address] Dr. Terence Love Urea nitrogen [Mass/Vol] 26.0 mg/dL Critically high 7.0-18.0 [facility] Comment on above: Performed By: #### M G, BMP, URIC, ALB, PHOS #### [facility] [address] [place] [address] Dr. Terence Love Urea nitrogen/Creatinine [Mass ratio] 16.7 mg/mg Normal [facility] Comment on above: Performed By: #### M G, BMP, URIC, ALB, PHOS #### [facility] [address] [place] [address] Dr. Terence Love PROTIMEon 12-15-2021 INR Coag (PPP) [Relative time] 1.01 {INR} Normal [facility] Comment on above: Performed By: #### M G, BMP, URIC, ALB, PHOS #### [facility] [address] [place] [address] Dr. Terence Love INR GUIDELINES SEE BELOW Normal [facility] Comment on above: Result Comment: THERESA RED INR: 2.0 - 3.0 CONDITIONS NOT LISTED BELOW 2.5 - 3.5 FOR PROSTHETIC HEART VALVE REPLACEMENT 2.5 - 3.5 RECURRENT THROMBOSIS Performed By: #### M G, BMP, URIC, ALB, PHOS #### [facility] [address] [place] [address] Dr. Terence Love PT Coag (PPP) [Time] 10.9 s Normal 9.0-11.6 [facility] Comment on above: Performed By: #### M G, BMP, URIC, ALB, PHOS #### [facility] [address] [place] [address] Dr. Terence Love PTTon 12-15-2021 aPTT Coag (Bld) [Time] 26.8 s Normal 22.3-36.2 Th [facility] Comment on above: Performed By: #### M G, BMP, URIC, ALB, PHOS #### [facility] [address] [address] [address] Terence Love TROPONIN, HIGH SENSITIVITYon 12-15-2021 HSTROP 6.0 pg/mL Normal 4.0-76.1 [facility] Comment on above: Result Comment: CUT- OFF POINTS HAVE BEEN ESTABLISHED BASED ON THE FOURTH UNIVERSAL DEFINITIONS OF MYOCARDIAL INFARCTION. THE UPPER REFERENCE LIMIT (URL) OF TROPONIN, DEFINED THE 99TH PERCENTILE OF cTnI DISTRIBUTION IN A REFERENCE POPULATION, HAS BEEN CONFIRMED THE DECISION THRESHOLD FOR [place] DIAGNOSIS. Performed By: #### M G, BMP, URIC, ALB, PHOS #### [facility] [address] [address] [address] [facility] TSH 1.163 uIU/mL Normal 0.358-3.740 [facility] Comment on above: Performed By: #### M G, BMP, URIC, ALB, PHOS #### [facility] [address] [address] [address] Terence Love XR CHEST 2 Von [...] by: GEORGIE CHARLES Date: 2021-12-15 14:50 Normal [facility] CBC AUTO DIFFon 12-14-2021 BASO # 0.0 103/ul Normal 0.0-0.1 [facility] Comment on above: Performed By: #### M G, BMP, URIC, ALB, PHOS #### [facility] [address] [place] [address] Dr. Terence Love Basophils/100 WBC (Bld) 0.6 % Normal 0.2-2.0 [facility] Comment on above: Performed By: #### M G, BMP, URIC, ALB, PHOS #### [facility] [address] [place] [address] Dr. Terence Love EO # 0.1 103/ul Normal 0.0-0.7 [facility] Comment on above: Performed By: #### M G, BMP, URIC, ALB, PHOS #### [facility] [address] [place] [address] Dr. Terence Love Eosinophils/100 WBC (Bld) 1.4 % Normal 0.9-7.0 [facility] Comment on above: Performed By: #### M G, BMP, URIC, ALB, PHOS #### [facility] [address] [place] [address] Dr. Terence Love Erythrocyte distribution width (RBC) [Ratio] 13.2 % Normal 11.0-15.0 [facility] Comment on above: Performed By: #### M G, BMP, URIC, ALB, PHOS #### [facility] [address] [place] [address] Dr. Terence Love Hematocrit (Bld) [Volume fraction] 40.6 % Critically low 42.0-54.0 [facility] Comment on above: Performed By: #### M G, BMP, URIC, ALB, PHOS #### [facility] [address] [place] [address] Dr. Terence Love Hemoglobin (Bld) [Mass/Vol] 13.3 g/dL Critically low 14.0-18.0 [facility] Comment on above: Performed By: #### M G, BMP, URIC, ALB, PHOS #### [facility] [address] [place] [address] Dr. Terence Love IG # 0.03 10e3/ul Normal 0.00-0.03 [facility] Comment on above: Performed By: #### M G, BMP, URIC, ALB, PHOS #### [facility] [address] [place] [address] Dr. Terence Love IG % 0.4 % Normal 0.0-0.5 [facility] Comment on above: Performed By: #### M G, BMP, URIC, ALB, PHOS #### [facility] [address] [place] [address] Dr. Terence Love LYMPH # 1.2 103/ul Normal 1.2-3.8 [facility] Comment on above: Performed By: #### M G, BMP, URIC, ALB, PHOS #### [facility] [address] [place] [address] Dr. Terence Love Lymphocytes/100 WBC (Bld) 17.5 % Critically low 20.5-60.0 [facility] Comment on above: Performed By: #### M G, BMP, URIC, ALB, PHOS #### [facility] [address] [place] [address] Dr. Terence Love MANUAL DIFF REQ NO Normal [facility] Comment on above: Performed By: #### M G, BMP, URIC, ALB, PHOS #### [facility] [address] [place] [address] Dr. Terence Love MCH (RBC) [Entitic mass] 29.6 pg Normal 25.9-34.0 [facility] Comment on above: Performed By: #### M G, BMP, URIC, ALB, PHOS #### [facility] [address] [place] [address] Dr. Terence Love MCHC (RBC) [Mass/Vol] 32.8 g/dL Normal 29.9-35.2 [facility] Comment on above: Performed By: #### M G, BMP, URIC, ALB, PHOS #### [facility] [address] [place] [address] Dr. Terence Love MCV (RBC) [Entitic vol] 90.4 fL Normal 80.0-94.0 [facility] Comment on above: Performed By: #### M G, BMP, URIC, ALB, PHOS #### [facility] [address] [place] [address] Dr. Terence Love MONO # 0.7 103/ul Normal 0.3-0.8 [facility] Comment on above: Performed By: #### M G, BMP, URIC, ALB, PHOS #### [facility] [address] [place] [address] Dr. Terence Love Monocytes/100 WBC (Bld) 10.4 % Normal 1.7-12.0 [facility] Comment on above: Performed By: #### M G, BMP, URIC, ALB, PHOS #### [facility] [address] [place] [address] Dr. Terence Love NEUT # 4.8 103/ul Normal 1.4-6.5 [facility] Comment on above: Performed By: #### M G, BMP, URIC, ALB, PHOS #### [facility] [address] [place] [address] Dr. Terence Love Neutrophils/100 WBC (Bld) 69.7 % Normal 43.0-75.0 [facility] Comment on above: Performed By: #### M G, BMP, URIC, ALB, PHOS #### [facility] [address] [place] [address] Dr. Terence Love Platelet mean volume (Bld) [Entitic vol] 11.0 fL Normal 9.5-13.5 [facility] Comment on above: Performed By: #### M G, BMP, URIC, ALB, PHOS #### [facility] [address] [place] [address] Dr. Terence Love PLT 202 103/ul Normal 150-450 [facility] Comment on above: Performed By: #### M G, BMP, URIC, ALB, PHOS #### [facility] [address] [place] [address] Dr. Terence Love RBC 4.49 106/ul Critically low 4.70-6.10 [facility] Comment on above: Performed By: #### M G, BMP, URIC, ALB, PHOS #### [facility] [address] [address] [address] Terence Love WBC 6.9 103/ul Normal 4.0-11.0 [facility] Comment on above: Performed By: #### M G, BMP, URIC, ALB, PHOS #### [facility] [address] [address] [address] Terence Love GLYCOHEMOGLOBIN A1Con 2021 ADA RECOMMENDATION SEE BELOW Normal [facility] Comment on above: Result Comment: ADA RECOMMENDED LIMIT 4.0 - 6.0 ADA THERAPEUTIC TARGET < 7.0 ACTION SUGGESTED > 7.0 Performed By: #### M G, BMP, URIC, ALB, PHOS #### [facility] [address] [place] [address] Dr. Terence Love Glucose [Mass/Vol] 180 mg/dL Normal [facility] Comment on above: Performed By: #### M G, BMP, URIC, ALB, PHOS #### [facility] [address] [place] [address] Dr. Terence Love HbA1c (Bld) [Mass fraction] 7.9 % Critically high 4.5-6.2 [facility] Comment on above: Performed By: #### M G, BMP, URIC, ALB, PHOS #### [facility] [address] [place] [address] Dr. Terence Love LIPID PROFILEon 12-14-2021 CHOL-HDL RATIO NORM SEE BELOW Normal [facility] Comment on above: Result Comment: 3.3 - 4.4 LOW RISK 4.4 - 7.1 AVERAGE RISK 7.1 - 11.0 MODERATE RISK >11.0 HIGH RISK Performed By: #### M G, BMP, URIC, ALB, PHOS #### [facility] [address] [place] [address] Dr. Terence Love Cholesterol [Mass/Vol] 156 mg/dL Normal <=200 Th [facility] Comment on above: Performed By: #### M G, BMP, URIC, ALB, PHOS #### [facility] [address] [place] [address] Dr. Terence Love Cholesterol in HDL [Mass/Vol] 55 mg/dL Normal 40-60 [facility] Comment on above: Performed By: #### M G, BMP, URIC, ALB, PHOS #### [facility] [address] [address] [address] Terence Love Cholesterol in LDL [Mass/Vol] 76.2 mg/dL Normal [facility] Comment on above: Performed By: #### M G, BMP, URIC, ALB, PHOS #### [facility] [address] [address] [address] Terence Love Cholesterol.total/Dotty sterol in HDL [Mass ratio] 2.8 {ratio} Normal [facility] Comment on above: Performed By: #### M G, BMP, URIC, ALB, PHOS #### [facility] [address] [place] [address] Dr. Terence Love HDL NORMAL > or = 60 mg/dl - LOW CARDIOVASCULAR RISK <40 mg/dl - HIGH CARDIOVASCULAR RISK Normal [facility] Comment on above: Performed By: #### M G, BMP, URIC, ALB, PHOS #### [facility] [address] [place] [address] Dr. Terence Love LDL CALC NORMAL SEE BELOW Normal [facility] Comment on above: Result Comment: <100 mg/dl OPTIMAL 100 - 129 mg/dl NEAR OR ABOVE OPTIMAL 130 - 159 mg/dl BORDERLINE HIGH 160 - 189 mg/dl HIGH >190 mg/dl VERY HIGH Performed By: #### M G, BMP, URIC, ALB, PHOS #### [facility] [address] [address] [address] Terence Lvoe Triglyceride [Mass/Vol] 124 mg/dL Normal <=150 [facility] Comment on above: Performed By: #### M G, BMP, URIC, ALB, PHOS #### [facility] [address] [place] [address] Dr. Terence Love VLDL CALC 24.8 mg/dL Normal [facility] Comment on above: Performed By: #### M G, BMP, URIC, ALB, PHOS #### [facility] [address] [place] [address] Dr. Terence Love MICROALBUMIN, RAND URon 06- mALB 1.3 mg/L Normal <=30.0 [facility] Comment on above: Performed By: #### M G, BMP, URIC, ALB, PHOS #### [facility] [address] [place] [address] Dr. Terence Love PROF CHEM 8 (BAS METB)on Anion gap [Moles/Vol] 8.9 mmol/L Normal [facility] Comment on above: Performed By: #### M G, BMP, URIC, ALB, PHOS #### [facility] [address] [place] [address] Dr. Terence Love Calcium [Mass/Vol] 8.6 mg/dL Normal 8.5-10.1 [facility] Comment on above: Performed By: #### M G, BMP, URIC, ALB, PHOS #### [facility] [address] [place] [address] Dr. Terence Love Chloride [Moles/Vol] 104 mmol/L Normal 98-107 [facility] Comment on above: Performed By: #### M G, BMP, URIC, ALB, PHOS #### [facility] [address] [place] [address] Dr. Terence Love CO2 [Moles/Vol] 30.5 mmol/L Normal 21.0-32.0 [facility] Comment on above: Performed By: #### M G, BMP, URIC, ALB, PHOS #### [facility] [address] [place] [address] Dr. Terence Love Creatinine [Mass/Vol] 1.71 mg/dL Critically high 0.70-1.30 [facility] Comment on above: Performed By: #### M G, BMP, URIC, ALB, PHOS #### [facility] [address] [place] [address] Dr. Terence Love EGFR-AF TOGOLESE 47 mL/min/1.73m2 Critically low >=60 [facility] Comment on above: Performed By: #### M G, BMP, URIC, ALB, PHOS #### [facility] [address] [place] [address] Dr. Terence Love EGFR-NON AF TOGOLESE 39 mL/min/1.73m2 Critically low >=60 [facility] Comment on above: Performed By: #### M G, BMP, URIC, ALB, PHOS #### [facility] [address] [place] [address] Dr. Terence Love Glucose [Mass/Vol] 214 mg/dL Critically high 74-106 [facility] Comment on above: Performed By: #### M G, BMP, URIC, ALB, PHOS #### [facility] [address] [place] [address] Dr. Terence Love Potassium [Moles/Vol] 4.4 mmol/L Normal 3.5-5.1 [facility] Comment on above: Performed By: #### M G, BMP, URIC, ALB, PHOS #### [facility] [address] [place] [address] Dr. Terence Love Sodium [Moles/Vol] 139 mmol/L Normal 136-145 [facility] Comment on above: Performed By: #### M G, BMP, URIC, ALB, PHOS #### [facility] [address] [place] [address] Dr. Terence Love Urea nitrogen [Mass/Vol] 32.0 mg/dL Critically high 7.0-18.0 [facility] Comment on above: Performed By: #### M G, BMP, URIC, ALB, PHOS #### [facility] [address] [place] [address] Dr. Terence Love Urea nitrogen/Creatinine [Mass ratio] 18.7 mg/mg Normal [facility] Comment on above: Performed By: #### M G, BMP, URIC, ALB, PHOS #### [facility] [address] [place] [address] Dr. Terence Sánchez 12-14-2021 AST [Catalytic activity/Vol] 14 U/L Critically low 15-37 [facility] Comment on above: Performed By: #### M G, BMP, URIC, ALB, PHOS #### [facility] [address] [address] [address] Terence [facility] 12-14-2021 ALT [Catalytic activity/Vol] 27 U/L Normal 16-63 [facility] Comment on above: Performed By: #### M G, BMP, URIC, ALB, PHOS #### [facility] [address] [place], [place] [address] Dr. Terence Love XR knee RT 4V*on 05-01-2021 XR knee RT 4V* [facility] [employer] Other XR knee RT 4V* [facility] [employer] Other XR knee RT 4V* [address] [place] [address] [employer] Other XR knee RT 4V* [place] [address] No rt [employer] Other XR knee RT 4V* XRay Report [facility] Other XR knee RT 4V* Signed [email or web address] Other XR knee RT 4V* Patient: Jason Bartholomew MR#: [id number] [employer] Other XR knee RT 4V* 778 [email or web address] Other XR knee RT 4V* : 1945 Acct:[id number] [employer] Other XR knee RT 4V* Age/Sex: 75 / M ADM Date: 05/01/21 [employer] Other XR knee RT 4V* Loc: XDUCLY Room: Type: REG CLI [employer] Other XR knee RT 4V* Attending Dr: Sonali JUNG [employer] Other XR knee RT 4V* Ordering Provider: ERICH Rosen [employer] Other XR knee RT 4V* Date of Service: 05/01/21 [employer] Other XR knee RT 4V* XR/XR knee RT 4V*: Acute pain of right knee [employer] Other XR knee RT 4V* ([id number]) XR/XR ankle RT min 3V*: Acute pain of right knee;Acute right ankle pain [employer] Other XR knee RT 4V* Copies to: ARIANE RosenC [employer] Other XR knee RT 4V* CLINICAL DATA: Patient was moving a box and slipped and fell yesterday. Lateral right ankle and [employer] Other XR knee RT 4V* medial right knee pain. [employer] Other XR knee RT 4V* RIGHT ANKLE - 3 views [employer] Other XR knee RT 4V* COMPARISON: None [facility] [employer] Other XR knee RT 4V* AP, lateral and oblique views were obtained. There is osteopenia. There is no evidence of [employer] Other XR knee RT 4V* fracture or dislocation. There are minor degenerative changes with spurring at the dorsum of the [employer] Other XR knee RT 4V* talus and calcaneal spurs. There is mild anterolateral soft tissue swelling. There is [employer] Other XR knee RT 4V* atherosclerotic disease. [employer] Other XR knee RT 4V* XR/XR ankle RT min 3V* [employer] Other XR knee RT 4V* IMPRESSION: [employer] [facility] be2 Other XR knee RT 4V* NO DEFINITE ACUTE BONY INJURY. [employer] Other XR knee RT 4V* RIGHT KNEE - 4 views [employer] Other XR knee RT 4V* AP, lateral and both oblique views were obtained. There is no acute fracture or dislocation. There [employer] Other XR knee RT 4V* is mild narrowing of the medial tibiofemoral and patellofemoral joint compartments. There is mild [employer] Other XR knee RT 4V* marginal spurring. There is a trace amount of joint fluid. No focal soft tissue swelling is noted. [employer] Other XR knee RT 4V* OSTEOPENIA AND DEGENERATIVE CHANGES. [employer] Other XR knee RT 4V* NO ACUTE BONY INJURY. [employer] Other XR knee RT 4V* Impression dictated by: Char Jade M.D.05/01/2021 12:06 PM [employer] Other XR knee RT 4V* Dictation Location: [place] [address] [employer] Other XR knee RT 4V* Transcribed By: STEVEN 05/01/21 1206 [employer] Other XR knee RT 4V* Dictated By: Char Jade MD 05/01/21 1203 [employer] Other XR knee RT 4V* Signed By: [email or web address] Other XR knee RT 4V* 05/01/21 1206 [facility] Other Cardiovascular Lab Reporton 06-14-2019 Cardiovascular Lab Report [facility] Patient Name: Jason Bartholomew [facility] A MR #: [id number] Department of Physician: Gilberto Manning M.D. Division of Service Date: 06/12/2019 Cardiology Birthdate: 1945 Adult Cardiovascular Room #: [id number] [place] [address] [address] [place], [place] [address] Cardiovascular Laboratory Report INDICATIONS: The patient is [...] Eliza Lee M.D. 07/19/2019 10:45 A Gilberto Manning M.D. Date Dict: 06/14/2019/09:06 Skip/Gilberto Manning M.D. Date Trans: 06/14/2019 10:16 Skip/bert [id number] cc: Idris Jose M.D. [address] [facility] [address] Normal The [facility] BASIC METABOLIC PANELon 06-02 Calcium [Mass/Vol] 8.8 mg/dL Normal 8.6-10.3 [facility] Comment on above: Order Comment: No: D o not add to previous draw Performed By: #### 1 0070, 37147 ####[facility] [place] [address], [facility] Chloride [Moles/Vol] 104 mmol/L Normal 98-107 [facility] Comment on above: Order Comment: No: D o not add to previous draw Performed By: #### 1 69, 13005 ####[facility] [place] [address], [place] CO2 [Moles/Vol] 28 mmol/L Normal 21-31 The [facility] Comment on above: Order Comment: No: D o not add to previous draw Performed By: #### 1 69, [address] ####[id number] [place] [address], [facility] Creatinine [Mass/Vol] 1.39 mg/dL High 0.70-1.30 [facility] Comment on above: Order Comment: No: D o not add to previous draw Performed By: #### 1 69, [address]73 ####[address] [place] [address], [facility] GFR/1.73 sq M predicted among blacks MDRD (S/P/Bld) [Vol rate/Area] 60 ml/min/1.73sq m Abnormal >60 [facility] Comment on above: Order Comment: No: D o not add to previous draw Result Comment: Calc ulation may not be valid for patients over 70 years Performed By: #### 1 69, [address]8762 ####[id number] [facility].[place] [id number], [facility] GFR/1.73 sq M predicted among non-blacks MDRD (S/P/Bld) [Vol rate/Area] 50 ml/min/1.73sq m Abnormal >60 [facility] Comment on above: Order Comment: No: D o not add to previous draw Result Comment: Calc ulation may not be valid for patients over 70 years Performed By: #### 1 69, 93975 ####[address] [place] [address], [facility] Glucose [Mass/Vol] 128 mg/dL High 70-100 [facility] Comment on above: Order Comment: No: D o not add to previous draw Performed By: #### 1 69, 37159 ####[facility] [place] [address], [facility] Potassium [Moles/Vol] 3.3 mmol/L Low 3.5-5.1 [facility] Comment on above: Order Comment: No: D o not add to previous draw Performed By: #### 1 69, 54800 ####[facility] [place] [address], [facility] Sodium [Moles/Vol] 143 mmol/L Normal 136-145 [facility] Comment on above: Order Comment: No: D o not add to previous draw Performed By: #### 1 69, 67035 ####[facility] [facility] [address], [facility] Urea nitrogen [Mass/Vol] 40 mg/dL High 7-25 [facility] Comment on above: Order Comment: No: D o not add to previous draw Performed By: #### 1 69, 94471 ####[facility] [facility] [address], [facility] CBC COMPLETE BLOOD COUNTon 08-14-2018 Erythrocyte distribution width (RBC) [Ratio] 14.0 % Normal 11.5-15.0 [facility] Comment on above: Order Comment: No: D o not add to previous draw Dup Performed By: #### 5 0608 #### [facility] [address] [place] [address], [facility] Hematocrit (Bld) [Volume fraction] 30.5 % Low 39.0-50.0 [facility] Comment on above: Order Comment: No: D o not add to previous draw Dup Performed By: #### 5 0608 #### [facility] [address] Hemoglobin (Bld) [Mass/Vol] 9.9 g/dL Low 13.0-17.0 [facility] Comment on above: Order Comment: No: D o not add to previous draw Dup Performed By: #### 5 0608 #### [facility] [address] [place] [address], [facility] MCH (RBC) [Entitic mass] 30.0 pg Normal 27.0-33.0 [facility] Comment on above: Order Comment: No: D o not add to previous draw Dup Performed By: #### 5 0608 #### [facility] [address] [facility]. [address] MCHC (RBC) [Mass/Vol] 32.5 g/dL Normal 32.0-35.0 [facility] Comment on above: Order Comment: No: D o not add to previous draw Dup Performed By: #### 5 0608 #### [facility] [address] [place] [address], [facility] MCV (RBC) [Entitic vol] 92.4 fL Normal 82.0-98.0 T [facility] Comment on above: Order Comment: No: D o not add to previous draw Dup Performed By: #### 5 0608 #### [facility] [address] [facility]. [address] Nucleated RBC/100 WBC (Bld) [Ratio] 0 % Normal 0-0 [facility] Comment on above: Order Comment: No: D o not add to previous draw Dup Performed By: #### 5 0608 #### [facility] [address] [place] [address], [facility] PLAT CNT 154 10*3/uL Normal 150-400 [facility] Comment on above: Order Comment: No: D o not add to previous draw Dup Performed By: #### 5 0608 #### [facility] [address] [facility] [place] [address], [facility] RBC (Bld) [#/Vol] 3.30 10*6/uL Low 4.20-5.70 [facility] Comment on above: Order Comment: No: D o not add to previous draw Dup Performed By: #### 5 0608 #### [facility] [address] [facility] [place] [address], [facility] WBC (Bld) [#/Vol] 11.68 10*3/uL High 4.00-10.60 [facility] Comment on above: Order Comment: No: D o not add to previous draw Dup Performed By: #### 5 0608 #### [facility] [address] [place] [address], [facility] MAGNESIUM BLOODon 06-13-2019 Magnesium [Mass/Vol] 1.8 mg/dL Low 1.9-2.7 [facility] Comment on above: Order Comment: No: D o not add to previous draw Performed By: #### 8 7002 #### [facility] [address] [place] [address], [facility] POC GLUCOSE LABon 06-13-2019 Glucose [Mass/Vol] 341 mg/dL High 70-100 [facility] Comment on above: Performed By: #### 8 5499 #### [facility] [address] [place] [address], [facility] Glucose [Mass/Vol] 124 mg/dL High 70-100 [facility] Comment on above: Performed By: #### 3 0738 #### [facility] [address] [place] [address], [facility] PORTABLE CHEST 1 VIEWon 06-02 PORTABLE CHEST 1 VIEW [facility] Department of Radiology [address] [place] [id number] Patient Name: JASON BARTHOLOMEW : 1945 Sex: M Age: Race: White Pt. Location: [address] [place] [address] Patient Status: I Ordered Date: 06/13/2019 7:00:00 [...] appreciated. Electronically signed by:Noreen Menendez. Transcribed by: [email or web address], User Resident: Electronically Signed by: NOREEN MENENDEZ @ 06/13/2019 08:20 AM [place] [facility] Comment on above: Order Comment: R/O P neumothorax PROTHROMBIN TIMEon 9 INR Coag (PPP) [Relative time] 1.14 {INR} Normal 0.91-1.16 [facility] Comment on above: Order Comment: No: D o not add to previous draw Result Comment: [facility] P RECOMMENDED INR FOR WARFARIN THERAPY ------- [...] 1995;108:[id number]-246S. Performed By: #### 8 5499 #### [facility] [address] [facility] PT Coag (PPP) [Time] 14.7 s Normal 12.3-14.8 [facility] Comment on above: Order Comment: No: D o not add to previous draw Result Comment: ALL RESULTS MUST BE INTERPRETED WITH RESPECT TO BLOOD DRAWING ARTIFACT OR DILUTION ERROR OF ANTICOAGULANT AT THE TIME OF SAMPLING. Performed By: #### 8 5499 #### [facility] [address] BASIC METABOLIC PANELon 06-02 Calcium [Mass/Vol] 9.1 mg/dL Normal 8.6-10.3 [facility] Comment on above: Order Comment: No: D o not add to previous draw Performed By: #### 8 5499 #### [facility] [address] [place] [address], [place] Chloride [Moles/Vol] 110 mmol/L High 98-107 [facility] Comment on above: Order Comment: No: D o not add to previous draw Performed By: #### 8 5499 #### [facility] [address] [place] [address], [place] CO2 [Moles/Vol] 27 mmol/L Normal 21-31 [facility] Comment on above: Order Comment: No: D o not add to previous draw Performed By: #### 8 5499 #### [facility] [address] [place] [address], [place] Creatinine [Mass/Vol] 1.48 mg/dL High 0.70-1.30 [facility] Comment on above: Order Comment: No: D o not add to previous draw Performed By: #### 8 5499 #### [facility] [address] [place] [address], [place] GFR/1.73 sq M predicted among blacks MDRD (S/P/Bld) [Vol rate/Area] 56 ml/min/1.73sq m Abnormal >60 [facility] Comment on above: Order Comment: No: D o not add to previous draw Result Comment: Calc ulation may not be valid for patients over 70 years Performed By: #### 8 5499 #### [facility] [address] [place] [address], [place] GFR/1.73 sq M predicted among non-blacks MDRD (S/P/Bld) [Vol rate/Area] 46 ml/min/1.73sq m Abnormal >60 [facility] Comment on above: Order Comment: No: D o not add to previous draw Result Comment: Calc ulation may not be valid for patients over 70 years Performed By: #### 8 5499 #### [facility] [address] [place] [address], [place] Glucose [Mass/Vol] 152 mg/dL High 70-100 The [facility] Comment on above: Order Comment: No: D o not add to previous draw Performed By: #### 8 5499 #### [facility] [address] [place] [address], [place] Potassium [Moles/Vol] 3.4 mmol/L Low 3.5-5.1 The [facility] Comment on above: Order Comment: No: D o not add to previous draw Performed By: #### 8 5499 #### [facility] [address] [place] [address], [place] Sodium [Moles/Vol] 147 mmol/L High 136-145 The [facility] Comment on above: Order Comment: No: D o not add to previous draw Performed By: #### 8 5499 #### [facility] [address] [place] [address], [place] Urea nitrogen [Mass/Vol] 54 mg/dL High 7-25 The [facility] Comment on above: Order Comment: No: D o not add to previous draw Performed By: #### 8 5499 #### [facility] [address] [place] [id number], [place] CBC COMPLETE BLOOD COUNTon 1 08-13-2018 Erythrocyte distribution width (RBC) [Ratio] 14.4 % Normal 11.5-15.0 The [facility] Comment on above: Order Comment: No: D o not add to previous draw Dup Performed By: #### 5 0608 #### [facility] [address] [place] [address], [place] Hematocrit (Bld) [Volume fraction] 27.7 % Low 39.0-50.0 The [facility] Comment on above: Order Comment: No: D o not add to previous draw Dup Performed By: #### 5 0608 #### [facility] [address] [place] [address], [place] Hemoglobin (Bld) [Mass/Vol] 9.0 g/dL Low 13.0-17.0 The [facility] Comment on above: Order Comment: No: D o not add to previous draw Dup Performed By: #### 5 0608 #### [facility] [address] [place] [address], [facility] MCH (RBC) [Entitic mass] 30.0 pg Normal 27.0-33.0 The [facility] Comment on above: Order Comment: No: D o not add to previous draw Dup Performed By: #### 5 0608 #### [facility] [address] [place] [id number], [facility] MCHC (RBC) [Mass/Vol] 32.5 g/dL Normal 32.0-35.0 The [facility] Comment on above: Order Comment: No: D o not add to previous draw Dup Performed By: #### 5 0608 #### [facility] [address] [place] [address], [facility] MCV (RBC) [Entitic vol] 92.3 fL Normal 82.0-98.0 T [facility] Comment on above: Order Comment: No: D o not add to previous draw Dup Performed By: #### 5 0608 #### [facility] [address] [place] [address], [facility] Nucleated RBC/100 WBC (Bld) [Ratio] 0 % Normal 0-0 The [facility] Comment on above: Order Comment: No: D o not add to previous draw Dup Performed By: #### 5 0608 #### [facility] [address] [place] [id number], [place] PLAT CNT 121 10*3/uL Low 150-400 [facility] Comment on above: Order Comment: No: D o not add to previous draw Dup Performed By: #### 5 0608 #### [facility] [address] [place] [address], [facility] RBC (Bld) [#/Vol] 3.00 10*6/uL Low 4.20-5.70 The [facility] Comment on above: Order Comment: No: D o not add to previous draw Dup Performed By: #### 5 0608 #### [facility] [address] [facility] WBC (Bld) [#/Vol] 10.60 10*3/uL Normal 4.00-10.60 The [facility] Comment on above: Order Comment: No: D o not add to previous draw Dup Performed By: #### 5 0608 #### [facility] [address] [facility] Cardiovascular Lab Reporton 06-12-2019 Cardiovascular Lab Report [facility] Patient Name: Puma [facility]ly [facility] Skip MR #: [id number] Department of Physician: Bryan Curtis, Medicine M.DWalt Division of Service Date: 06/11/2019 Cardiology Birthdate: 1945 Adult Cardiovascular Room #: [id number] [facility] [address] [place] [address] Cardiovascular Laboratory Report AUTOMOTIVE PARTS MANAGER: Hardeep Grimes M.D. PROCEDURE: Pacemaker in the [...] fascia. Electrocautery was used to hemostasis. A 7-[place] SafeSheath was then advanced over the first [...] patient tolerated the procedure well. DEVICE DATA: MedControl4 battery/pulse generator, model #W1DI01, serial #[id number]. Leads/Medtronic. RA model #5076-45, serial #[id number]. RV lead, model #20559-55, serial #[id number]. MEASURED DATA: RA lead, P-wage 1.4 mV, [...] Successful dual-chamber placement implant. Electronically Signed by: Bryan Curtis M.D. 07/09/2019 03:38 P Bryan Curtis M.D. Date Dict: 06/12/2019/06:41 Skip/Bryan Curtis M.D. Date Trans: 06/12/2019 07:42 A/mmo [id number] cc: Idris Jose M.D. [address] [facility] [address] Normal The [facility] MAGNESIUM BLOODon 06-12-2019 Magnesium [Mass/Vol] 2.2 mg/dL Normal 1.9-2.7 The [facility] Comment on above: Order Comment: No: D o not add to previous draw Performed By: #### 8 5499 #### [facility] [address] [place] [address], [facility] POC GLUCOSE LABon 06-12-2019 Glucose [Mass/Vol] 219 mg/dL High 70-100 The [facility] Comment on above: Performed By: #### 8 5499 #### [facility] [address] [place] [address], [place] Glucose [Mass/Vol] 56 mg/dL Low 70-100 The [facility] Comment on above: Performed By: #### 3 0738 #### [facility] [address] [place] [address], [place] Glucose [Mass/Vol] 270 mg/dL High 70-100 The [facility] Comment on above: Performed By: #### 8 5499 #### [facility] [address] [place] [address], [place] Glucose [Mass/Vol] 156 mg/dL High 70-[address] [facility] [address] Comment on above: Performed By: #### 3 0313 #### [address] PORTABLE CHEST 1 VIEWon 06-02 PORTABLE CHEST 1 VIEW [facility] Department of Radiology [address] [place] [phone] Patient Name: JASON BARTHOLOMEW : 1945 Sex: M Age: Race: White Pt. Location: [id number] Patient Status: I Ordered Date: 06/12/2019 5:00:00 [...] pneumothorax. Electronically signed by:Lazaro Capone. Transcribed by: [email or web address], User Resident: Electronically Signed by: LAZARO CAPONE @ 06/12/2019 08:09 AM Normal The [facility] Comment on above: Order Comment: R/O P neumothorax US RENALon 06-12-2019 RENAL [facility] Department of Radiology [address] [place] [phone] Patient Name: JASON BARTHOLOMEW : 1945 Sex: M Age: Race: White Pt. Location: [id number] Patient Status: I Ordered Date: 06/10/2019 3:25:00 [...] hydronephrosis. Electronically signed by:Gabby Bedolla. Transcribed by: [email or web address], User Resident: Electronically Signed by: GABBY BEDOLLA @ 06/12/2019 10:27 AM Normal [facility] Comment on above: Order Comment: R/O H ydronephrosis ARTERIAL BLOOD GAS WITH ICAo n 06-11-2019 BASE EXCESS 3 mmol/L Normal -2-3 [facility] Comment on above: Performed By: #### 8 4511 ####[facility] [place] [address], [facility] DELIVERY SYSTEMS BIPAP 06/07 Normal [facility] Comment on above: Performed By: #### 8 4511 ####[facility] [place] [address], [place] FIO2 40 % Normal [facility] Comment on above: Performed By: #### 8 4511 ####[facility] [place] [address], [place] HCO3 (Bld) [Moles/Vol] 26 mmol/L Normal 21-28 Th e [facility] Comment on above: Performed By: #### 8 4511 ####[facility] [place] [address], [place] IONIZED CALCIUM 1.20 mmol/L Normal 1.13-1.32 The [facility] Comment on above: Performed By: #### 8 4511 ####[facility] [place] [address], [place] Oxygen (Bld) [Partial pressure] 62 mm[Hg] Low 83-108 The [facility] Comment on above: Performed By: #### 8 4511 ####[facility] [place] [address], [place] Oxygen saturation in Blood 93.8 % Low 94.0-97.0 The [facility] Comment on above: Performed By: #### 8 4511 ####[facility] [place] [address], [facility] PCO2 32 mmHg Low 35-45 The [facility] Comment on above: Performed By: #### 8 4511 ####[facility] [place] [address], [facility] pH (Bld) 7.52 [pH] High 7.35-7.45 The [facility] Comment on above: Performed By: #### 8 4511 ####[facility] [place] [address], [facility] BASIC METABOLIC PANELon 12- Calcium [Mass/Vol] 9.1 mg/dL Normal 8.6-10.3 [facility] Comment on above: Order Comment: No: D o not add to previous draw Performed By: #### 0 0071 ####[facility] [place] [address], [place] Chloride [Moles/Vol] 107 mmol/L Normal 98-107 [facility] Comment on above: Order Comment: No: D o not add to previous draw Performed By: #### 0 0071 ####[facility] [place] [address], [place] CO2 [Moles/Vol] 28 mmol/L Normal 21-31 [facility] Comment on above: Order Comment: No: D o not add to previous draw Performed By: #### 0 0071 ####[facility] [place] [address], [place] Creatinine [Mass/Vol] 2.17 mg/dL High 0.70-1.30 The [facility] Comment on above: Order Comment: No: D o not add to previous draw Performed By: #### 0 0071 ####[facility] [place] [address], [place] GFR/1.73 sq M predicted among blacks MDRD (S/P/Bld) [Vol rate/Area] 36 ml/min/1.73sq m Abnormal >60 [facility] Comment on above: Order Comment: No: D o not add to previous draw Result Comment: Calc ulation may not be valid for patients over 70 years Performed By: #### 0 0071 ####[facility] [place] [address], [facility] GFR/1.73 sq M predicted among non-blacks MDRD (S/P/Bld) [Vol rate/Area] 30 ml/min/1.73sq m Abnormal >60 [facility] Comment on above: Order Comment: No: D o not add to previous draw Result Comment: Calc ulation may not be valid for patients over 70 years Performed By: #### 0 0071 ####[facility] [place] [address], [facility] Glucose [Mass/Vol] 121 mg/dL High 70-100 [facility] Comment on above: Order Comment: No: D o not add to previous draw Performed By: #### 0 0071 ####[facility] [place] [address], [facility] Potassium [Moles/Vol] 3.5 mmol/L Normal 3.5-5.1 The [facility] Comment on above: Order Comment: No: D o not add to previous draw Performed By: #### 0 0071 ####[facility] [place] [address], [place] Sodium [Moles/Vol] 143 mmol/L Normal 136-145 The [facility] Comment on above: Order Comment: No: D o not add to previous draw Performed By: #### 0 0071 ####[facility] [place] [address], [place] Urea nitrogen [Mass/Vol] 66 mg/dL High 7-25 The [facility] Comment on above: Order Comment: No: D o not add to previous draw Performed By: #### 0 0071 ####[facility] [place] [address], [place] Calcium [Mass/Vol] 9.2 mg/dL Normal 8.6-10.3 [facility] Comment on above: Order Comment: No: D o not add to previous draw Performed By: #### 8 5499 #### [facility] [address] [place] [address], [place] Chloride [Moles/Vol] 105 mmol/L Normal 98-107 The [facility] Comment on above: Order Comment: No: D o not add to previous draw Performed By: #### 8 5499 #### [facility] [address] [place] [address], [place] CO2 [Moles/Vol] 26 mmol/L Normal 21-31 [facility] Comment on above: Order Comment: No: D o not add to previous draw Performed By: #### 8 5499 #### [facility] [address] [place] [address], [place] Creatinine [Mass/Vol] 2.43 mg/dL High 0.70-1.30 [facility] Comment on above: Order Comment: No: D o not add to previous draw Performed By: #### 8 5499 #### [facility] [address] [place] [address], [place] GFR/1.73 sq M predicted among blacks MDRD (S/P/Bld) [Vol rate/Area] 32 ml/min/1.73sq m Abnormal >60 [facility] Comment on above: Order Comment: No: D o not add to previous draw Result Comment: Calc ulation may not be valid for patients over 70 years Performed By: #### 8 5499 #### [facility] [address] [place] [address], [place] GFR/1.73 sq M predicted among non-blacks MDRD (S/P/Bld) [Vol rate/Area] 26 ml/min/1.73sq m Abnormal >60 [facility] Comment on above: Order Comment: No: D o not add to previous draw Result Comment: Calc ulation may not be valid for patients over 70 years Performed By: #### 8 5499 #### [facility] [address] [place] [address], [place] Glucose [Mass/Vol] 160 mg/dL High 70-100 The [facility] Comment on above: Order Comment: No: D o not add to previous draw Performed By: #### 8 5499 #### [facility] [address] [place] [address], [place] Potassium [Moles/Vol] 3.6 mmol/L Normal 3.5-5.1 [facility] Comment on above: Order Comment: No: D o not add to previous draw Performed By: #### 8 5499 #### [facility] [address] [place] [address], [place] Sodium [Moles/Vol] 140 mmol/L Normal 136-145 The [facility] Comment on above: Order Comment: No: D o not add to previous draw Performed By: #### 8 5499 #### [facility] [address] [place] [address], [place] Urea nitrogen [Mass/Vol] 68 mg/dL High 7-25 The [facility] Comment on above: Order Comment: No: D o not add to previous draw Performed By: #### 8 5499 #### [facility] [address] [place] [address], [place] CBC COMPLETE BLOOD COUNTon 08-12-2018 Erythrocyte distribution width (RBC) [Ratio] 14.3 % Normal 11.5-15.0 The [facility] Comment on above: Order Comment: No: D o not add to previous draw Performed By: #### 3 0313 #### [facility] [address] [place] [address], [facility] Hematocrit (Bld) [Volume fraction] 25.1 % Low 39.0-50.0 The [facility] Comment on above: Order Comment: No: D o not add to previous draw Performed By: #### 3 0313 #### [facility] [address] [place] [address], [facility] Hemoglobin (Bld) [Mass/Vol] 8.3 g/dL Low 13.0-17.0 The [facility] Comment on above: Order Comment: No: D o not add to previous draw Performed By: #### 3 0313 #### [facility] [address] [place] [address], [facility] MCH (RBC) [Entitic mass] 29.9 pg Normal 27.0-33.0 The [facility] Comment on above: Order Comment: No: D o not add to previous draw Performed By: #### 3 0313 #### [facility] [address] [place] [address], [facility] MCHC (RBC) [Mass/Vol] 33.1 g/dL Normal 32.0-35.0 The [facility] Comment on above: Order Comment: No: D o not add to previous draw Performed By: #### 3 0313 #### [facility] [address] [facility] [place] [address], [facility] MCV (RBC) [Entitic vol] 90.3 fL Normal 82.0-98.0 T [facility] Comment on above: Order Comment: No: D o not add to previous draw Performed By: #### 3 0313 #### [facility] [address] [facility] [address], [facility] Nucleated RBC/100 WBC (Bld) [Ratio] 0 % Normal 0-0 The [facility] Comment on above: Order Comment: No: D o not add to previous draw Performed By: #### 3 0313 #### [facility] [address] [facility]. [address] PLAT CNT 101 10*3/uL Low 150-400 [facility] Comment on above: Order Comment: No: D o not add to previous draw Performed By: #### 3 0313 #### [facility] [address] [place] [address], [facility] RBC (Bld) [#/Vol] 2.78 10*6/uL Low 4.20-5.70 The [facility] Comment on above: Order Comment: No: D o not add to previous draw Performed By: #### 3 0313 #### [facility] [address] [place] [address], [facility] WBC (Bld) [#/Vol] 14.45 10*3/uL High 4.00-10.60 The [facility] Comment on above: Order Comment: No: D o not add to previous draw Performed By: #### 3 0313 #### [facility] [address] Cardiovascular Lab Reporton 06-11-2019 Cardiovascular Lab Report [facility] Patient Name: Jason Bartholomew [facility] Skip MR #: [id number] Department of Physician: Gilberto Manning M.D. Division of Service Date: 06/11/2019 Cardiology Birthdate: 1945 Adult Cardiovascular Room #: [place] [address] Cardiovascular Laboratory Report INDICATIONS: This is the gentleman who 4 days ago underwent aortic valve replacement. He has had intermittent complete heart block with asystolic. His sternal wires were noted earlier in the day to not be functioning intermittently and then were not functioning at all. He was being rescued paced from external pacing pad. He was brought emergently down to the stores laborer. It was an emergent procedure. He was [...] A/Gilberto Manning M.D. Date Trans: 06/11/2019 01:20 P/bert [id number] cc: Idris Jose M.D. [address] [facility] [address] Normal The [facility] Cardiovascular Lab Report [facility] Patient Name: Puma [facility] A MR #: [id number] Department of Physician: Gilberto Manning M.D. Division of Service Date: 06/11/2019 Cardiology Birthdate: 1945 Adult Cardiovascular Room #: [id number] [address] [place] [address] Cardiovascular Laboratory Report INDICATIONS: This is the gentleman who 4 days ago underwent aortic valve replacement. He has had intermittent complete heart block with asystolic. His sternal wires were noted earlier in the day to not be functioning intermittently and then were not functioning at all. He was being rescued paced from external pacing pad. He was brought emergently down to the stores laborer. It was an emergent procedure. He was [...] Manning M.D. Date Trans: 06/11/2019 01:20 P/mmo [id number] cc: Idris Jose M.D. [address] [facility] [address] Normal The [facility] MAGNESIUM BLOODon 06-11-2019 Magnesium [Mass/Vol] 2.4 mg/dL Normal 1.9-2.7 The [facility] Comment on above: Order Comment: No: D o not add to previous draw Performed By: #### 8 5499 #### [facility] [address] [place] [address], [facility] PHOSPHORUS BLOODon 9 Phosphate [Mass/Vol] 3.7 mg/dL Normal 2.5-5.0 The [facility] Comment on above: Order Comment: No: D o not add to previous draw Performed By: #### 8 7002 #### [facility] [address] [place] [address], [facility] POC GLUCOSE LABon 06-11-2019 Glucose [Mass/Vol] 181 mg/dL High 70-100 The [facility] Comment on above: Performed By: #### 8 5499 #### [facility] [address] [place] [address], [facility] Glucose [Mass/Vol] 121 mg/dL High 70-100 The [facility] Comment on above: Performed By: #### 8 5499 ####[facility] [place] [address], [facility] Glucose [Mass/Vol] 153 mg/dL High 70-100 [facility] Comment on above: Performed By: #### 8 5499 ####[facility] [place] [address], [facility] PORTABLE CHEST 1 VIEWon 06-02 PORTABLE CHEST 1 VIEW [facility] Department of Radiology [address] [place] [phone] Patient Name: JASON BARTHOLOMEW : 1945 Sex: M Age: Race: White Pt. Location: [id number] Patient Status: I Ordered Date: 06/11/2019 6:30:00 [...] days Electronically signed by:Noreen Menendez. Transcribed by: [email or web address], User Resident: Electronically Signed by: NOREEN MENENDEZ @ 06/11/2019 08:37 AM Normal [facility] Comment on above: Order Comment: R/O P neumothorax, post-op AVR *BLOOD CULTUREon 06-10-2019 Bacteria identified Cx Nom (Bld) Clinical Report: (D) Specimen: BLOOD CULTURE Collected: 06/10/2019 14:21 Status: Final Last Updated: 06/16/2019 06:09 CULT RES (Final) No Growth Day 5 Normal [facility] Comment on above: Performed By: #### 3 0313 #### [facility] [address] [facility] [place], [place] [id number] [place] [address] BASIC METABOLIC PANELon 12-0 Calcium [Mass/Vol] 9.4 mg/dL Normal 8.6-10.3 [facility] Comment on above: Order Comment: No: D o not add to previous draw Performed By: #### 8 5499 #### [facility] [address] [place] [address], [place] Chloride [Moles/Vol] 101 mmol/L Normal 98-107 [facility] Comment on above: Order Comment: No: D o not add to previous draw Performed By: #### 8 5499 #### [facility] [address] [place] [address], [place] CO2 [Moles/Vol] 25 mmol/L Normal 21-31 The [facility] Comment on above: Order Comment: No: D o not add to previous draw Performed By: #### 8 5499 #### [facility] [address] [place] [address], [place] Creatinine [Mass/Vol] 2.71 mg/dL High 0.70-1.30 [facility] Comment on above: Order Comment: No: D o not add to previous draw Performed By: #### 8 [id number] #### [facility] [address] [place] [address], [place] GFR/1.73 sq M predicted among blacks MDRD (S/P/Bld) [Vol rate/Area] 28 ml/min/1.73sq m Abnormal >60 [facility] Comment on above: Order Comment: No: D o not add to previous draw Result Comment: Calc ulation may not be valid for patients over 70 years Performed By: #### 8 [id number] #### [facility] [address] [place] [address], [place] GFR/1.73 sq M predicted among non-blacks MDRD (S/P/Bld) [Vol rate/Area] 23 ml/min/1.73sq m Abnormal >60 [facility] Comment on above: Order Comment: No: D o not add to previous draw Result Comment: Calc ulation may not be valid for patients over 70 years Performed By: #### 8 [id number] #### [facility] [address] [place] [address], [place] Glucose [Mass/Vol] 246 mg/dL High 70-100 [facility] Comment on above: Order Comment: No: D o not add to previous draw Performed By: #### 8 5499 #### [facility] [address] [place] [address], [place] Potassium [Moles/Vol] 4.3 mmol/L Normal 3.5-5.1 [facility] Comment on above: Order Comment: No: D o not add to previous draw Performed By: #### 8 5499 #### [facility] [address] [place] [address], [place] Sodium [Moles/Vol] 139 mmol/L Normal 136-145 [facility] Comment on above: Order Comment: No: D o not add to previous draw Performed By: #### 8 5499 #### [facility] [address] [place] [address], [place] Urea nitrogen [Mass/Vol] 59 mg/dL High 7-25 [facility] Comment on above: Order Comment: No: D o not add to previous draw Performed By: #### 8 5499 #### [facility] [address] [place] [address], [place] Calcium [Mass/Vol] 9.6 mg/dL Normal 8.6-10.3 [facility] Comment on above: Performed By: #### 8 5499 #### [facility] [address] [place] [address], [place] Chloride [Moles/Vol] 104 mmol/L Normal 98-107 The [facility] Comment on above: Performed By: #### 8 5499 #### [facility] [address] [place] [address], [place] CO2 [Moles/Vol] 25 mmol/L Normal 21-31 [facility] Comment on above: Performed By: #### 8 5499 #### [facility] [address] [place] [address], [place] Creatinine [Mass/Vol] 2.12 mg/dL High 0.70-1.30 The [facility] Comment on above: Performed By: #### 8 5499 #### [facility] [address] [place] [address], [place] GFR/1.73 sq M predicted among blacks MDRD (S/P/Bld) [Vol rate/Area] 37 ml/min/1.73sq m Abnormal >60 [facility] Comment on above: Result Comment: Calc ulation may not be valid for patients over 70 years Performed By: #### 8 5499 #### [facility] [address] [place] [address], [place] GFR/1.73 sq M predicted among non-blacks MDRD (S/P/Bld) [Vol rate/Area] 31 ml/min/1.73sq m Abnormal >60 [facility] Comment on above: Result Comment: Calc ulation may not be valid for patients over 70 years Performed By: #### 8 5499 #### [facility] [address] [place] [address], [place] Glucose [Mass/Vol] 170 mg/dL High 70-100 [facility] Comment on above: Performed By: #### 8 5499 #### [facility] [address] [place] [address], [place] Potassium [Moles/Vol] 3.3 mmol/L Low 3.5-5.1 [facility] Comment on above: Performed By: #### 8 5499 #### [facility] [address] [place] [address], [place] Sodium [Moles/Vol] 141 mmol/L Normal 136-145 [facility] Comment on above: Performed By: #### 8 5499 #### [facility] [address] [place] [address], [place] Urea nitrogen [Mass/Vol] 52 mg/dL High 7-25 The [facility] Comment on above: Performed By: #### 8 [id number] #### [facility] [address] [place] [address], [place] CBC COMPLETE BLOOD COUNTon 1 08-11-2018 Erythrocyte distribution width (RBC) [Ratio] 14.6 % Normal 11.5-15.0 The [facility] Comment on above: Order Comment: No: D o not add to previous draw Performed By: #### 3 0313 #### [facility] [address] [place] [address], [place] Hematocrit (Bld) [Volume fraction] 27.8 % Low 39.0-50.0 [facility] Comment on above: Order Comment: No: D o not add to previous draw Performed By: #### 3 0313 #### [facility] [address] [place] [address], [facility] Hemoglobin (Bld) [Mass/Vol] 9.4 g/dL Low 13.0-17.0 The [facility] Comment on above: Order Comment: No: D o not add to previous draw Performed By: #### 3 0313 #### [facility] [address] [place] [address], [facility] IMM PLATELET FRAC 5.2 % Normal 0.8-6.3 [facility] Comment on above: Order Comment: No: D o not add to previous draw Performed By: #### 3 3 #### [facility] [address] [place] [address], [facility] MCH (RBC) [Entitic mass] 29.9 pg Normal 27.0-33.0 The [facility] Comment on above: Order Comment: No: D o not add to previous draw Performed By: #### 3 0313 #### [facility] [address] [place] [address], [facility] MCHC (RBC) [Mass/Vol] 33.8 g/dL Normal 32.0-35.0 [facility] Comment on above: Order Comment: No: D o not add to previous draw Performed By: #### 3 0313 #### [facility] [address] [place] [address], [facility] MCV (RBC) [Entitic vol] 88.5 fL Normal 82.0-98.0 [facility] Comment on above: Order Comment: No: D o not add to previous draw Performed By: #### 3 0313 #### [facility] [address] [place] [address], [facility] Nucleated RBC/100 WBC (Bld) [Ratio] 0 % Normal 0-0 The [facility] Comment on above: Order Comment: No: D o not add to previous draw Performed By: #### 3 0313 #### [facility] [address] [place] [address], [facility] PLAT CNT 96 10*3/uL Low 150-400 The [facility] Comment on above: Order Comment: No: D o not add to previous draw Performed By: #### 3 0313 #### [facility] [address] [place] [address], [place] RBC (Bld) [#/Vol] 3.14 10*6/uL Low 4.20-5.70 [facility] Comment on above: Order Comment: No: D o not add to previous draw Performed By: #### 3 0313 #### [facility] [address] [place] [address], [place] WBC (Bld) [#/Vol] 17.03 10*3/uL High 4.00-10.60 The [facility] Comment on above: Order Comment: No: D o not add to previous draw Performed By: #### 3 0313 #### [facility] [address] [place] [address], [place] CREATININE URINE RANDOMon Creatinine [Mass/Vol] 77.0 mg/dL Normal The [facility] Comment on above: Order Comment: No: D o not add to previous draw Result Comment: Ther e are no established reference values for random urine specimens Performed By: #### 8 [id number] #### [facility] [address] [place] [address], [facility] MAGNESIUM BLOODon 06-10-2019 Magnesium [Mass/Vol] 2.6 mg/dL Normal 1.9-2.7 The [facility] Comment on above: Performed By: #### 8 5499 #### [facility] [address] [place] [address], [place] Magnesium [Mass/Vol] 1.8 mg/dL Low 1.9-2.7 The [facility] Comment on above: Order Comment: No: D o not add to previous draw Performed By: #### 8 5499 #### [facility] [address] [place] [address], [facility] OSMOLALITY BLOODon 9 Osmolality [Osmolality] 308 mOsm/kg High 285-305 The [facility] Comment on above: Performed By: #### 8 5499 #### [facility] [address] [place] [address], [place] PHOSPHORUS BLOODon 9 Phosphate [Mass/Vol] 2.9 mg/dL Normal 2.5-5.0 The [facility] Comment on above: Order Comment: No: D o not add to previous draw Performed By: #### 8 5499 #### [facility] [address] [place] [address], [facility] POC GLUCOSE LABon 06-10-2019 Glucose [Mass/Vol] 153 mg/dL High 70-100 [facility] Comment on above: Performed By: #### 8 5499 #### [facility] [address] [facility] [place] [address], [place] Glucose [Mass/Vol] 186 mg/dL High 70-100 [facility] Comment on above: Performed By: #### 8 5499 #### [facility] [address] [place] [address], [place] Glucose [Mass/Vol] 256 mg/dL High 70-100 [facility] Comment on above: Performed By: #### 8 5499 ####[facility] [place] [address], [place] Glucose [Mass/Vol] 178 mg/dL High 70-100 [facility] Comment on above: Performed By: #### 3 0738 #### [facility] [address] PORTABLE CHEST 1 VIEWon PORTABLE CHEST 1 VIEW [facility] Department of Radiology [address] [place] [id number] Patient Name: JASON BARTHOLOMEW : 1945 Sex: M Age: Race: White Pt. Location: [id number] Patient Status: I Ordered Date: 06/10/2019 5:00:00 [...] cardiomegaly. Electronically signed by:Lazaro Capone. Transcribed by: [email or web address], User Resident: Electronically Signed by: LAZARO CAPONE @ 06/10/2019 07:38 AM Normal The [facility] Comment on above: Order Comment: R/O P neumothorax SODIUM URINE RANDOMon 2018 Sodium (U) [Moles/Vol] 65 mmol/L Normal Th e [facility] Comment on above: Order Comment: No: D o not add to previous draw Result Comment: Ther e are no established reference values for random urine specimens Performed By: #### 8 5499 #### [facility] [address] [place] [address], [facility] APTTon 06-09-2019 aPTT Coag (Bld) [Time] 31.4 s Normal 25.0-35.0 Th e [facility] Comment on above: Order Comment: [...] PURPOSE. Performed By: #### 5 0608 #### [facility] [address] [facility] [address], [facility] aPTT Coag (Bld) [Time] 31.1 s Normal 25.0-35.0 Th e [facility] Comment on above: Order Comment: [...] PURPOSE. Performed By: #### 8 5499 #### [facility] [address] [place] [address], [facility] ARTERIAL BLOOD GAS WITH ICAo n 06-09-2019 BASE EXCESS -4 mmol/L Low -2-3 [facility] Comment on above: Performed By: #### 8 4511 ####[facility] [place] [address], [facility] DELIVERY SYSTEMS BiPAP Normal The [facility] Comment on above: Performed By: #### 8 4511 ####[facility] [place] [address], [facility] FIO2 100 % Normal The [facility] Comment on above: Performed By: #### 8 4511 ####[facility] [place] [address], [facility] HCO3 (Bld) [Moles/Vol] 19 mmol/L Low 21-28 Th e [facility] Comment on above: Performed By: #### 8 4511 ####[facility] [place] [address], [facility] IONIZED CALCIUM 1.24 mmol/L Normal 1.13-1.32 [facility] Comment on above: Performed By: #### 8 4511 ####[facility] [place] [address], [place] Oxygen (Bld) [Partial pressure] 179 mm[Hg] Critically high 83-108 The [facility] Comment on above: Performed By: #### 8 4511 ####[facility] [place] [address], [facility] Oxygen saturation in Blood 96.9 % Normal 94.0-97.0 The [facility] Comment on above: Performed By: #### 8 4511 ####[facility] [place] [address], [place] PCO2 29 mmHg Low 35-45 The [facility] Comment on above: Performed By: #### 8 4511 ####[facility] [place] [address], [place] PEEP 6.0 CMH20 Normal The [facility] Comment on above: Performed By: #### 8 4511 ####[facility] [facility] pH (Bld) 7.43 [pH] Normal 7.35-7.45 The [facility] Comment on above: Performed By: #### 8 4511 ####[facility] [place] [address], [facility] PRESSURE SUPPORT 12 Normal The [facility] Comment on above: Performed By: #### 8 4511 ####[facility] [facility].[address] BASE EXCESS -5 mmol/L Low -2-3 [facility] Comment on above: Order Comment: RESUL TS CHECKED AND CALLED. ACCURATELY READ BACK BY Savanna TRUONG RN-SAMPLE IS MIXED Performed By: #### 8 4511 ####[address] [employer] NASAL CANNULA Normal The [facility] Comment on above: Order Comment: RESUL TS CHECKED AND CALLED. ACCURATELY READ BACK BY Savanna TRUONG RN-SAMPLE IS MIXED Performed By: #### 8 4511 ####[place] [id number] [facility].[address] HCO3 (Bld) [Moles/Vol] 18 mmol/L Low 21-28 Th e [facility] Comment on above: Order Comment: RESUL TS CHECKED AND CALLED. ACCURATELY READ BACK BY Savanna TRUONG RN-SAMPLE IS MIXED Performed By: #### 8 4511 ####[facility] [facility].[address] IONIZED CALCIUM 1.23 mmol/L Normal 1.13-1.32 The [facility] Comment on above: Order Comment: RESUL TS CHECKED AND CALLED. ACCURATELY READ BACK BY Savanna TRUONG RN-SAMPLE IS MIXED Performed By: #### 8 4511 ####[address] [place] [address], [facility] LPM 6.0 LPM Normal The [facility] Comment on above: Order Comment: RESUL TS CHECKED AND CALLED. ACCURATELY READ BACK BY Savanna TRUONG, RN-SAMPLE IS MIXED Performed By: #### 8 4511 ####[facility] [place] [address], [facility] Oxygen (Bld) [Partial pressure] 40 mm[Hg] Critically low 83-108 The [facility] Comment on above: Order Comment: RESUL TS CHECKED AND CALLED. ACCURATELY READ BACK BY Savanna TRUONG, RN-SAMPLE IS MIXED Performed By: #### 8 4511 ####[facility] [facility] Oxygen saturation in Blood 80.5 % Critically low 94.0-97.0 The [facility] Comment on above: Order Comment: RESUL TS CHECKED AND CALLED. ACCURATELY READ BACK BY Savanna TRUONG, RN-SAMPLE IS MIXED Performed By: #### 8 4511 ####[facility] [place] [address], [facility] PCO2 27 mmHg Low 35-45 The [facility] Comment on above: Order Comment: RESUL TS CHECKED AND CALLED. ACCURATELY READ BACK BY Savanna TRUONG, RN-SAMPLE IS MIXED Performed By: #### 8 4511 ####[facility] [place] [address], [facility] pH (Bld) 7.43 [pH] Normal 7.35-7.45 The [facility] Comment on above: Order Comment: RESUL TS CHECKED AND CALLED. ACCURATELY READ BACK BY Savanna TRUONG, RN-SAMPLE IS MIXED Performed By: #### 8 4511 ####[facility] [place] [address], [facility] BASIC METABOLIC PANELon 12-0 Calcium [Mass/Vol] 9.1 mg/dL Normal 8.6-10.3 The [facility] Comment on above: Order Comment: No: D o not add to previous draw Performed By: #### 8 7002 #### [facility] [address] [place] [address], [place] Chloride [Moles/Vol] 106 mmol/L Normal 98-107 The [facility] Comment on above: Order Comment: No: D o not add to previous draw Performed By: #### 8 7002 #### [facility] [address] [place] [address], [place] CO2 [Moles/Vol] 19 mmol/L Low 21-31 The [facility] Comment on above: Order Comment: No: D o not add to previous draw Performed By: #### 8 7002 #### [facility] [address] [place] [address], [facility] Creatinine [Mass/Vol] 2.33 mg/dL High 0.70-1.30 The [facility] Comment on above: Order Comment: No: D o not add to previous draw Performed By: #### 8 7002 #### [facility] [address] [place] [address], [place] GFR/1.73 sq M predicted among blacks MDRD (S/P/Bld) [Vol rate/Area] 33 ml/min/1.73sq m Abnormal >60 [facility] Comment on above: Order Comment: No: D o not add to previous draw Result Comment: Calc ulation may not be valid for patients over 70 years Performed By: #### 8 7002 #### [facility] [address] [place] [address], [place] GFR/1.73 sq M predicted among non-blacks MDRD (S/P/Bld) [Vol rate/Area] 27 ml/min/1.73sq m Abnormal >60 [facility] Comment on above: Order Comment: No: D o not add to previous draw Result Comment: Calc ulation may not be valid for patients over 70 years Performed By: #### 8 7002 #### [facility] [address] [place] [address], [place] Glucose [Mass/Vol] 215 mg/dL High 70-100 The [facility] Comment on above: Order Comment: No: D o not add to previous draw Performed By: #### 8 7002 #### [facility] [address] [place] [address], [place] Potassium [Moles/Vol] 4.1 mmol/L Normal 3.5-5.1 The [facility] Comment on above: Order Comment: No: D o not add to previous draw Performed By: #### 8 700 #### [facility] [address] [place] [address], [place] Sodium [Moles/Vol] 137 mmol/L Normal 136-145 The [facility] Comment on above: Order Comment: No: D o not add to previous draw Performed By: #### 8 700 #### [facility] [address] [place] [address], [place] Urea nitrogen [Mass/Vol] 49 mg/dL High 7-25 The [facility] Comment on above: Order Comment: No: D o not add to previous draw Performed By: #### 8 700 #### [facility] [address] [place] [address], [place] Calcium [Mass/Vol] 9.2 mg/dL Normal 8.6-10.3 The [facility] Comment on above: Order Comment: No: D o not add to previous draw Performed By: #### 8 700 #### [facility] [address] [place] [address], [place] Chloride [Moles/Vol] 108 mmol/L High 98-107 The [facility] Comment on above: Order Comment: No: D o not add to previous draw Performed By: #### 8 700 #### [facility] [address] [place] [address], [place] CO2 [Moles/Vol] 24 mmol/L Normal 21-[address] [facility] Comment on above: Order Comment: No: D o not add to previous draw Performed By: #### 8 7002 #### [facility] [address] [place] [address], [place] Creatinine [Mass/Vol] 1.71 mg/dL High 0.70-1.30 The [facility] Comment on above: Order Comment: No: D o not add to previous draw Performed By: #### 8 7002 #### [facility] [address] [place] [address], [facility] GFR/1.73 sq M predicted among blacks MDRD (S/P/Bld) [Vol rate/Area] 47 ml/min/1.73sq m Abnormal >60 [facility] Comment on above: Order Comment: No: D o not add to previous draw Result Comment: Calc ulation may not be valid for patients over 70 years Performed By: #### 8 7002 #### [facility] [address] [place] [address], [facility] GFR/1.73 sq M predicted among non-blacks MDRD (S/P/Bld) [Vol rate/Area] 39 ml/min/1.73sq m Abnormal >60 [facility] Comment on above: Order Comment: No: D o not add to previous draw Result Comment: Calc ulation may not be valid for patients over 70 years Performed By: #### 8 7002 #### [facility] [address] [place] [address], [place] Glucose [Mass/Vol] 89 mg/dL Normal 70-100 [facility] Comment on above: Order Comment: No: D o not add to previous draw Performed By: #### 8 7002 #### [facility] [address] [place] [address], [place] Potassium [Moles/Vol] 3.8 mmol/L Normal 3.5-5.1 [facility] Comment on above: Order Comment: No: D o not add to previous draw Performed By: #### 8 7002 #### [facility] [address] [place] [address], [facility] Sodium [Moles/Vol] 140 mmol/L Normal 136-145 The [facility] Comment on above: Order Comment: No: D o not add to previous draw Performed By: #### 8 7002 #### [facility] [address] [place] [address], [facility] Urea nitrogen [Mass/Vol] 36 mg/dL High 7-25 [facility] Comment on above: Order Comment: No: D o not add to previous draw Performed By: #### 8 7002 #### [facility] [address] [place] [address], [facility] CBC COMPLETE BLOOD COUNTon 1 08-10-2018 Erythrocyte distribution width (RBC) [Ratio] 14.9 % Normal 11.5-15.0 [facility] Comment on above: Order Comment: No: D o not add to previous draw Performed By: #### 3 0313 #### [facility] [address] [place] [address], [facility] Hematocrit (Bld) [Volume fraction] 26.4 % Low 39.0-50.0 [facility] Comment on above: Order Comment: No: D o not add to previous draw Performed By: #### 3 3 #### [facility] [address] [place] [address], [facility] Hemoglobin (Bld) [Mass/Vol] 9.0 g/dL Low 13.0-17.0 [facility] Comment on above: Order Comment: No: D o not add to previous draw Performed By: #### 3 0313 #### [facility] [address] [place] [address], [facility] IMM PLATELET FRAC 5.0 % Normal 0.8-6.3 [facility] Comment on above: Order Comment: No: D o not add to previous draw Performed By: #### 3 0313 #### [facility] [address] [place] [address], [facility] MCH (RBC) [Entitic mass] 30.2 pg Normal 27.0-33.0 The [facility] Comment on above: Order Comment: No: D o not add to previous draw Performed By: #### 3 3 #### [facility] [address] [place] [address], [facility] MCHC (RBC) [Mass/Vol] 34.1 g/dL Normal 32.0-35.0 The [facility] Comment on above: Order Comment: No: D o not add to previous draw Performed By: #### 3 3 #### [facility] [address] [facility] [place] [address], [facility] MCV (RBC) [Entitic vol] 88.6 fL Normal 82.0-98.0 T he [facility] Comment on above: Order Comment: No: D o not add to previous draw Performed By: #### 3 3 #### [facility] [address] [facility] [place], [place] [address], [facility] Nucleated RBC/100 WBC (Bld) [Ratio] 0 % Normal 0-0 The [facility] Comment on above: Order Comment: No: D o not add to previous draw Performed By: #### 3 3 #### [facility] [address] [place] [address], [facility] PLAT CNT 81 10*3/uL Low 150-400 [facility] Comment on above: Order Comment: No: D o not add to previous draw Result Comment: Prev iously Resulted 81 Performed By: #### 3 3 #### [facility] [address] [place] [address], [facility] RBC (Bld) [#/Vol] 2.98 10*6/uL Low 4.20-5.70 [facility] Comment on above: Order Comment: No: D o not add to previous draw Performed By: #### 3 3 #### [facility] [address] [place] [address], [facility] WBC (Bld) [#/Vol] 10.77 10*3/uL High 4.00-10.60 [facility] Comment on above: Order Comment: No: D o not add to previous draw Performed By: #### 3 3 #### [facility] [address] [place] [address], [facility] Erythrocyte distribution width (RBC) [Ratio] 14.7 % Normal 11.5-15.0 [facility] Comment on above: Order Comment: No: D o not add to previous draw Performed By: #### 3 3 #### [facility] [address] [place] [address], [facility] Hematocrit (Bld) [Volume fraction] 23.6 % Low 39.0-50.0 The [facility] Comment on above: Order Comment: No: D o not add to previous draw Performed By: #### 3 3 #### [facility] [address] [place] [address], [facility] Hemoglobin (Bld) [Mass/Vol] 7.9 g/dL Low 13.0-17.0 [facility] Comment on above: Order Comment: No: D o not add to previous draw Performed By: #### 3 3 #### [facility] [address] [place] [id number], [facility] IMM PLATELET FRAC 5.4 % Normal 0.8-6.3 [facility] Comment on above: Order Comment: No: D o not add to previous draw Performed By: #### 3 0313 #### [facility] [address] [place] [address], [facility] MCH (RBC) [Entitic mass] 29.5 pg Normal 27.0-33.0 [facility] Comment on above: Order Comment: No: D o not add to previous draw Performed By: #### 3 0313 #### [facility] [address] [place] [address], [facility] MCHC (RBC) [Mass/Vol] 33.5 g/dL Normal 32.0-35.0 [facility] Comment on above: Order Comment: No: D o not add to previous draw Performed By: #### 3 0313 #### [facility] [address] [place] [id number], [facility] MCV (RBC) [Entitic vol] 88.1 fL Normal 82.0-98.0 T he [facility] Comment on above: Order Comment: No: D o not add to previous draw Performed By: #### 3 0313 #### [facility] [address] [place] [address], [facility] Nucleated RBC/100 WBC (Bld) [Ratio] 0 % Normal 0-0 [facility] Comment on above: Order Comment: No: D o not add to previous draw Performed By: #### 3 0313 #### [facility] [address] [place] [address], [facility] PLAT CNT 81 10*3/uL Low 150-400 [facility] Comment on above: Order Comment: No: D o not add to previous draw Performed By: #### 3 3 #### [facility] [address] [place] [id number], [facility] RBC (Bld) [#/Vol] 2.68 10*6/uL Low 4.20-5.70 [facility] Comment on above: Order Comment: No: D o not add to previous draw Performed By: #### 3 0313 #### [facility] [address] [place] [id number], [facility] WBC (Bld) [#/Vol] 10.66 10*3/uL High 4.00-10.60 [facility] Comment on above: Order Comment: No: D o not add to previous draw Performed By: #### 3 0313 #### [facility] [address] [place] [address], [place] MAGNESIUM BLOODon 06-09-2019 Magnesium [Mass/Vol] 2.0 mg/dL Normal 1.9-2.7 The [facility] Comment on above: Order Comment: No: D o not add to previous draw Performed By: #### 8 7002 #### [facility] [address] [place] [address], [place] PHOSPHORUS BLOODon 9 Phosphate [Mass/Vol] 3.5 mg/dL Normal 2.5-5.0 The [facility] Comment on above: Order Comment: No: D o not add to previous draw Performed By: #### 8 7002 #### [facility] [address] [place] [address], [place] POC GLUCOSE LABon 06-09-2019 Glucose [Mass/Vol] 235 mg/dL High 70-[address] [facility] Comment on above: Performed By: #### 8 5499 #### [facility] [address] [place] [address], [place] Glucose [Mass/Vol] 201 mg/dL High 70-[address] [facility] Comment on above: Performed By: #### 3 0738 #### [facility] [address] [place] [address], [place] Glucose [Mass/Vol] 180 mg/dL High 70-[address] [facility] Comment on above: Performed By: #### 8 5499 #### [facility] [address] [place] [address], [place] Glucose [Mass/Vol] 160 mg/dL High 70-[address] [facility] Comment on above: Performed By: #### 8 5499 #### [facility] [address] [place] [address], [place] Glucose [Mass/Vol] 92 mg/dL Normal 70-[address] [facility] Comment on above: Performed By: #### 8 5499 #### [facility] [address] [place] [address], [place] Glucose [Mass/Vol] 115 mg/dL High 70-100 The [facility] Comment on above: Performed By: #### 8 5499 #### [facility] [address] [place] [address], [place] Glucose [Mass/Vol] 130 mg/dL High 70-100 The [facility] Comment on above: Performed By: #### 3 0738 #### [facility] [address] [place] [address], [place] Glucose [Mass/Vol] 210 mg/dL High 70-100 The [facility] Comment on above: Performed By: #### 8 5499 #### [facility] [address] [place] [address], [place] Glucose [Mass/Vol] 240 mg/dL High 70-100 The [facility] Comment on above: Performed By: #### 3 0738 #### [facility] [address] [place] [address], [facility] PORTABLE CHEST 1 VIEWon 12-0 PORTABLE CHEST 1 VIEW [facility] Department of Radiology [address] [place] [id number] Patient Name: JASON BARTHOLOMEW : 1945 Sex: M Age: Race: White Pt. Location: [id number] Patient Status: I Ordered Date: 06/09/2019 3:25:00 [...] midlung. Electronically signed by:Lazaro Capone. Transcribed by: [email or web address], User Resident: Electronically Signed by: LAZARO CAPONE @ 06/10/2019 08:11 AM Normal [facility] Comment on above: Order Comment: R/O P neumothorax PORTABLE CHEST 1 VIEW [facility] Department of Radiology [address] [place] [id number] Patient Name: JASON BARTHOLOMEW : 1945 Sex: M Age: Race: White Pt. Location: [id number] Patient Status: I Ordered Date: 06/09/2019 8:15:00 [...] Cardiomediastinal silhouette remains unchanged. Interval removal of [place]-Teresa catheter. Mediastinal drain present. Aortic valve prosthesis. Right-sided chest tube remains with small right apical pneumothorax measuring 6 mm from the pleura. No significant change in right-sided loculated pleural effusion or right-sided upper lobe airspace disease. Left lung is clear. No subdiaphragmatic free air. IMPRESSION: 1. Small right apical pneumothorax. 2. Interval removal of [place]-Teresa catheter. Remaining tubes are stable. 3. No significant change in right-sided pleural parenchymal process. Findings were discussed with FADIA Thomas at 9:15 AM on 06/09/2019. Approved by:Misbah Jo on 06/09/2019 9:16 AM EST. I, Noreen Menendez, have reviewed the images and report and concur with these findings. Electronically signed by:Noreen Menendez. Transcribed by: [email or web address], User Resident: MISBAH JO Electronically Signed by: NOREEN MENENDEZ @ 06/10/2019 07:11 AM I personally read this/these film(s) with this resident Normal [facility] Comment on above: Order Comment: R/O P neumothorax PROTHROMBIN TIMEon 9 INR Coag (PPP) [Relative time] 1.26 {INR} High 0.91-1.16 [facility] Comment on above: Order Comment: No: D o not add to previous draw Dup Result Comment: [facility] P RECOMMENDED INR FOR WARFARIN THERAPY ------- [...] 1995;108:231S-246S. Performed By: #### 5 0608 #### [facility] [address] [place] [address], [facility] PT Coag (PPP) [Time] 15.9 s High 12.3-14.8 [facility] Comment on above: Order Comment: No: D o not add to previous draw Dup Result Comment: ALL RESULTS MUST BE INTERPRETED WITH RESPECT TO BLOOD DRAWING ARTIFACT OR DILUTION ERROR OF ANTICOAGULANT AT THE TIME OF SAMPLING. Performed By: #### 5 0608 #### [facility] [address] [place] [address], [place] INR Coag (PPP) [Relative time] 1.30 {INR} High 0.91-1.16 [facility] Comment on above: Order Comment: No: D o not add to previous draw Result Comment: [facility] P RECOMMENDED INR FOR WARFARIN THERAPY ------- [...] 1995;108:231S-246S. Performed By: #### 8 5499 #### [address] PT Coag (PPP) [Time] 16.3 s High 12.3-14.8 [facility] Comment on above: Order Comment: No: D o not add to previous draw Result Comment: ALL RESULTS MUST BE INTERPRETED WITH RESPECT TO BLOOD DRAWING ARTIFACT OR DILUTION ERROR OF ANTICOAGULANT AT THE TIME OF SAMPLING. Performed By: #### 8 5499 #### [facility] [address] APTTon 06-08-2019 aPTT Coag (Bld) [Time] 31.6 s Normal 25.0-35.0 Th e [facility] Comment on above: Order Comment: [...] PURPOSE. Performed By: #### 8 5499 #### [facility] [address] aPTT Coag (Bld) [Time] 32.6 s Normal 25.0-35.0 Th e [facility] Comment on above: Order Comment: [...] PURPOSE. Performed By: #### 5 0608 #### [facility] [address] ARTERIAL BLOOD GAS WITH ICAo n 06-08-2019 BASE EXCESS -1 mmol/L Normal -2-3 [facility] Comment on above: Performed By: #### 8 4511 ####[facility] [employer] NASAL CANNULA Normal [facility] Comment on above: Performed By: #### 8 4511 ####[facility] HCO3 (Bld) [Moles/Vol] 24 mmol/L Normal 21-28 Th e [facility] Comment on above: Performed By: #### 8 4511 ####[facility] IONIZED CALCIUM 1.37 mmol/L High 1.13-1.32 [facility] Comment on above: Performed By: #### 8 4511 ####[facility] [place] [address], [facility] LPM 2.0 LPM Normal [facility] Comment on above: Performed By: #### 8 4511 ####[facility] [place] [address], [facility] Oxygen (Bld) [Partial pressure] 93 mm[Hg] Normal 83-108 [facility] Comment on above: Performed By: #### 8 4511 ####[facility] [place] [address], [facility] Oxygen saturation in Blood 96.6 % Normal 94.0-97.0 [facility] Comment on above: Performed By: #### 8 4511 ####[facility] [place] [address], [place] PCO2 39 mmHg Normal 35-45 [facility] Comment on above: Performed By: #### 8 4511 ####[facility] [place] [address], [facility] pH (Bld) 7.40 [pH] Normal 7.35-7.45 [facility] Comment on above: Performed By: #### 8 4511 ####[facility] [place] [address], [facility] BASIC METABOLIC PANELon 12-0 Calcium [Mass/Vol] 9.6 mg/dL Normal 8.6-10.3 [facility] Comment on above: Order Comment: post op day 1No: Do not add to previous draw Performed By: #### 8 5499 #### [facility] [address] [place] [address], [place] Chloride [Moles/Vol] 107 mmol/L Normal 98-107 [facility] Comment on above: Order Comment: post op day 1No: Do not add to previous draw Performed By: #### 8 5499 #### [facility] [address] [place] [address], [place] CO2 [Moles/Vol] 24 mmol/L Normal 21-31 The [facility] Comment on above: Order Comment: post op day 1No: Do not add to previous draw Performed By: #### 8 5499 #### [facility] [address] [place] [address], [place] Creatinine [Mass/Vol] 1.55 mg/dL High 0.70-1.30 [facility] Comment on above: Order Comment: post op day 1No: Do not add to previous draw Performed By: #### 8 5499 #### [facility] [address] [place] [address], [place] GFR/1.73 sq M predicted among blacks MDRD (S/P/Bld) [Vol rate/Area] 53 ml/min/1.73sq m Abnormal >60 [facility] Comment on above: Order Comment: post op day 1No: Do not add to previous draw Result Comment: Calc ulation may not be valid for patients over 70 years Performed By: #### 8 5499 #### [facility] [address] [place] [address], [place] GFR/1.73 sq M predicted among non-blacks MDRD (S/P/Bld) [Vol rate/Area] 44 ml/min/1.73sq m Abnormal >60 [facility] Comment on above: Order Comment: post op day 1No: Do not add to previous draw Result Comment: Calc ulation may not be valid for patients over 70 years Performed By: #### 8 5499 #### [facility] [address] [place] [address], [place] Glucose [Mass/Vol] 103 mg/dL High 70-100 [facility] Comment on above: Order Comment: post op day 1No: Do not add to previous draw Performed By: #### 8 5499 #### [facility] [address] [place] [address], [place] Potassium [Moles/Vol] 4.1 mmol/L Normal 3.5-5.1 [facility] Comment on above: Order Comment: post op day 1No: Do not add to previous draw Performed By: #### 8 5499 #### [facility] [address] [place] [address], [place] Sodium [Moles/Vol] 138 mmol/L Normal 136-145 The [facility] Comment on above: Order Comment: post op day 1No: Do not add to previous draw Performed By: #### 8 5499 #### [facility] [address] [place] [address], [facility] Urea nitrogen [Mass/Vol] 29 mg/dL High 7-25 The [facility] Comment on above: Order Comment: post op day 1No: Do not add to previous draw Performed By: #### 8 5499 #### [facility] [address] [place] [address], [facility] CBC COMPLETE BLOOD COUNTon 1 08-09-2018 Erythrocyte distribution width (RBC) [Ratio] 13.9 % Normal 11.5-15.0 [facility] Comment on above: Order Comment: No: D o not add to previous draw Dup Performed By: #### 5 0608 #### [facility] [address] [place] [address], [facility] Hematocrit (Bld) [Volume fraction] 18.6 % Low 39.0-50.0 The [facility] Comment on above: Order Comment: No: D o not add to previous draw Dup Performed By: #### 5 0608 #### [facility] [address] [place] [address], [facility] Hemoglobin (Bld) [Mass/Vol] 6.4 g/dL Low 13.0-17.0 [facility] Comment on above: Order Comment: No: D o not add to previous draw Dup Performed By: #### 5 0608 #### [facility] [address] [place] [address], [place] IMM PLATELET FRAC 3.7 % Normal 0.8-6.3 [facility] Comment on above: Order Comment: No: D o not add to previous draw Dup Performed By: #### 5 0608 #### [facility] [address] [place] [address], [facility] MCH (RBC) [Entitic mass] 29.6 pg Normal 27.0-33.0 [facility] Comment on above: Order Comment: No: D o not add to previous draw Dup Performed By: #### 5 0608 #### [facility] [address] [place] [id number], [facility] MCHC (RBC) [Mass/Vol] 34.4 g/dL Normal 32.0-35.0 [facility] Comment on above: Order Comment: No: D o not add to previous draw Dup Performed By: #### 5 0608 #### [facility] [address] [facility] [place] [address], [facility] MCV (RBC) [Entitic vol] 86.1 fL Normal 82.0-98.0 T he [facility] Comment on above: Order Comment: No: D o not add to previous draw Dup Performed By: #### 5 0608 #### [facility] [address] [facility] [place] [address], [facility] Nucleated RBC/100 WBC (Bld) [Ratio] 0 % Normal 0-0 [facility] Comment on above: Order Comment: No: D o not add to previous draw Dup Performed By: #### 5 0608 #### [facility] [address] [place] [address], [facility] PLAT CNT 103 10*3/uL Low 150-400 [facility] Comment on above: Order Comment: No: D o not add to previous draw Dup Performed By: #### 5 0608 #### [facility] [address] [place] [id number], [facility] RBC (Bld) [#/Vol] 2.16 10*6/uL Low 4.20-5.70 [facility] Comment on above: Order Comment: No: D o not add to previous draw Dup Performed By: #### 5 0608 #### [facility] [address] [place] [address], [facility] WBC (Bld) [#/Vol] 9.48 10*3/uL Normal 4.00-10.60 [facility] Comment on above: Order Comment: No: D o not add to previous draw Dup Performed By: #### 5 0608 #### [facility] [address] [place] [address], [facility] COOXIMETRYon 06-08-2019 COHB 3 % Normal The [facility] Comment on above: Performed By: #### 7 0207 ####[facility] [place] [address], [facility] METHB 1 % Normal The [facility] Comment on above: Performed By: #### 7 0207 ####[facility] [place] [address], [facility] Oxygen saturation in Blood 67.9 % Normal 65.0-75.0 [facility] Comment on above: Performed By: #### 7 0207 ####[facility] [place] [address], [facility] THB 6.6 g/dL Normal The [facility] Comment on above: Performed By: #### 7 0207 ####[facility] [place] [address], [facility] HEMOGLOBINon 06-08-2019 Hemoglobin (Bld) [Mass/Vol] 7.5 g/dL Low 13.0-17.0 [facility] Comment on above: Order Comment: No: D o not add to previous draw Dup Performed By: #### 5 0608 #### [facility] [address] [place] [address], [facility] Hemoglobin (Bld) [Mass/Vol] 8.3 g/dL Low 13.0-17.0 The [facility] Comment on above: Order Comment: No: D o not add to previous draw Performed By: #### 3 0313 #### [facility] [address] LACTATE BLOODon 06-08-2019 Lactate [Moles/Vol] 0.8 mmol/L Normal 0.5-2.2 [facility] Comment on above: Order Comment: post op day 1No: Do not add to previous draw Performed By: #### 8 5499 #### [facility] [address] MAGNESIUM BLOODon 06-08-2019 Magnesium [Mass/Vol] 2.2 mg/dL Normal 1.9-2.7 The [facility] Comment on above: Order Comment: post op day 1No: Do not add to previous draw Performed By: #### 8 5499 #### [facility] [address] Operative Reporton 9 Operative Report MR#: [id number] I [facility] Pt. Name: Jason Bartholomew Room #: [id number] Discharge Date: Birthdate: 1945 OPERATIVE REPORT DATE OF SURGERY: 06/07/2019 SURGEON: Janeth Hutton MD PREOPERATIVE DIAGNOSIS: Postoperative bleeding status post minimally invasive aortic valve replacement. POSTOPERATIVE DIAGNOSIS: Postoperative bleeding status post minimally invasive aortic valve replacement. OPERATION: Exploration of right medial thoracotomy wound and washout of the chest, correction of coagulopathy. AUTOMOTIVE PARTS MANAGER: Mattie. ANESTHESIA: General with endotracheal intubation. ANESTHESIOLOGIST: [...] P/Janeth Hutton MD Date Trans: 06/08/2019 08:25 A/bert [id number] cc: Idris Jose M.D. [address] [facility] [address] [place] The [facility] Operative Report MR#: [id number] I [facility] Pt. Name: Jason Bartholomew Room #: [id number] Discharge Date: Birthdate: 1945 OPERATIVE REPORT DATE OF SURGERY: 06/07/2019 SURGEON: Janeth Hutton MD PREOPERATIVE DIAGNOSIS: Severe aortic stenosis. POSTOPERATIVE DIAGNOSIS: Severe aortic stenosis. OPERATION: Minimally invasive aortic valve replacement with 21 mm Inspiris pericardial valve via right mini-thoracotomy. ASSISTANTS: Herman. ANESTHESIA: General with endotracheal intubation. ANESTHESIOLOGIST: Dr. [...] P/Janeth Hutton MD Date Trans: 06/08/2019 01:08 A/bert [id number] cc: Idris Jose M.D. [address] [facility] [id number] Normal The [facility] POC GLUCOSE LABon 06-08-2019 Glucose [Mass/Vol] 104 mg/dL High 70-100 The [facility] Comment on above: Performed By: #### 3 0738 #### [facility] [address] [place] [address], [place] Glucose [Mass/Vol] 79 mg/dL Normal 70-100 [facility] Comment on above: Performed By: #### 8 5499 #### [facility] [address] [place] [address], [place] Glucose [Mass/Vol] 105 mg/dL High 70-100 The [facility] Comment on above: Performed By: #### 3 0738 #### [facility] [address] [place] [address], [place] Glucose [Mass/Vol] 112 mg/dL High 70-[address] [facility] Comment on above: Performed By: #### 3 0313 #### [facility] [address] [place] [address], [place] Glucose [Mass/Vol] 134 mg/dL High 70-100 [facility] Comment on above: Performed By: #### 3 0313 #### [facility] [address] [place] [address], [place] Glucose [Mass/Vol] 99 mg/dL Normal 70-100 [facility] Comment on above: Performed By: #### 3 0738 #### [facility] [address] [place] [address], [place] Glucose [Mass/Vol] 97 mg/dL Normal 70-[address] [facility] [address] [facility] Comment on above: Performed By: #### 3 0738 #### [facility] [address] [address], [place] Glucose [Mass/Vol] 117 mg/dL High 70-[address] [facility] Comment on above: Performed By: #### 8 [id number] #### [facility] [address] [place] [address], [place] Glucose [Mass/Vol] 96 mg/dL Normal 70-[address] [facility] Comment on above: Performed By: #### 8 [id number] #### [facility] [address] [place] [address], [place] Glucose [Mass/Vol] 105 mg/dL High 70-[address] [facility] Comment on above: Performed By: #### 8 [id number] #### [facility] [address] [place] [address], [place] PORTABLE CHEST 1 VIEWon 12-0 PORTABLE CHEST 1 VIEW [facility] Department of Radiology [address] [place] [id number] Patient Name: JASON BARTHOLOMEW : 1945 Sex: M Age: Race: White Pt. Location: [id number] Patient Status: I Ordered Date: 06/08/2019 7:00:00 [...] study. Right side chest the tube, right-sided [place]resa catheter again noted, and mediastinal drain are [...] findings. Electronically signed by:Noreen Menendez. Transcribed by: [email or web address], User Resident: NICHOLAS CASEY Electronically Signed by: NORENE MENENDEZ @ 06/08/2019 03:39 PM I personally read this/these film(s) with this resident Normal The [facility] Comment on above: Order Comment: Check Chest Tube Position PROTHROMBIN TIMEon 9 INR Coag (PPP) [Relative time] 1.30 {INR} High 0.91-1.16 The [facility] Comment on above: Order Comment: [...] 1995;108:[id number]. Performed By: #### 8 [id number] #### [facility] [address] [place] [address], [facility] PT Coag (PPP) [Time] 16.3 s High 12.3-14.8 The [facility] Comment on above: Order Comment: post op day 1No: Do not add to previous draw Result Comment: ALL RESULTS MUST BE INTERPRETED WITH RESPECT TO BLOOD DRAWING ARTIFACT OR DILUTION ERROR OF ANTICOAGULANT AT THE TIME OF SAMPLING. Performed By: #### 8 [id number] #### [facility] [address] [address], [facility] RBC'S 2 UNITSon 06-08-2019 CROSSMATCH INTERP 1 COMP Normal [facility] Comment on above: Performed By: #### 8 6002 ####[facility] [place] [address], [facility] CROSSMATCH INTERP 2 COMP Normal [facility] Comment on above: Performed By: #### 8 6002 ####[facility] [place] [address], [facility] PRODUCT CODE 1 E0336 Normal The [facility] Comment on above: Performed By: #### 8 6002 ####[facility] [place] [address], [facility] PRODUCT CODE 2 E0336 Normal The [facility] Comment on above: Performed By: #### 8 6002 ####[facility] [place] [address], [facility] PRODUCT STATUS 1 RE Normal The [facility] Comment on above: Result Comment: Resu lt changed by IF on 06/10/2019 07:04. The previous value was XM. Performed By: #### 8 6002 ####[facility] [place] [address], [facility] PRODUCT STATUS 2 PT Normal The [facility] Comment on above: Result Comment: Resu lt changed by IF on 06/08/2019 23:37. The previous value was XM. Result changed by IF on 06/09/2019 02:00. The previous value was IS. Performed By: #### 8 6002 ####[facility] [place] [address], [place] UNIT ABO 1 A Normal The [facility] Comment on above: Performed By: #### 8 6002 ####[facility] UNIT ABO 2 A Normal The [facility] Comment on above: Performed By: #### 8 6002 ####[facility] UNIT ID 1 [id number] Normal The [facility] Comment on above: Performed By: #### 8 6002 ####[facility] UNIT ID 2 [id number] Normal The [facility] Comment on above: Performed By: #### 8 6002 ####[facility] UNIT RH 1 Positive Normal [facility] Comment on above: Performed By: #### 8 6002 ####[facility] UNIT RH 2 Positive Normal [facility] Comment on above: Performed By: #### 8 6002 ####[facility] [place] [address], [facility] ACTIVATED CLOTTING TIMEon ACTIVATED CLOTTING TIME 121 sec Normal 82-152 T [facility] Comment on above: Performed By: #### 8 [id number] #### [facility] [address] [place] [address], [facility] ACTIVATED CLOTTING TIME 104 sec Normal 82-152 T [facility] Comment on above: Performed By: #### 8 5499 #### [facility] [address] [place] [address], [facility] ACTIVATED CLOTTING TIME 443 sec High 82-152 T [facility] Comment on above: Performed By: #### 8 5499 #### [facility] [address] [place] [address], [facility] ACTIVATED CLOTTING TIME 467 sec High 82-152 T he [facility] Comment on above: Performed By: #### 8 5499 #### [facility] [address] [place] [address], [facility] ACTIVATED CLOTTING TIME 380 sec High 82-152 T he [facility] Comment on above: Performed By: #### 8 5499 #### [facility] [address] [place] [address], [facility] ACTIVATED CLOTTING TIME 443 sec High 82-152 T [facility] Comment on above: Performed By: #### 8 5499 #### [facility] [address] [place] [address], [facility] ACTIVATED CLOTTING TIME 479 sec High 82-152 T [facility] Comment on above: Performed By: #### 8 [id number] #### [facility] [address] [place] [address], [facility] ACTIVATED CLOTTING TIME 121 sec Normal 82-152 T [facility] Comment on above: Performed By: #### 8 [id number] #### [facility] [address] [place] [address], [facility] APTTon 06-07-2019 aPTT Coag (Bld) [Time] 63.3 s High 25.0-35.0 Th e [facility] Comment on above: Result Comment: [...] 19:52 Performed By: #### 8 [id number] #### [facility] [address] [place] [address], [facility] aPTT Coag (Bld) [Time] 72.3 s Critically high 25.0-35. 0 The [facility] Comment on above: Order Comment: [...] 18:39 Performed By: #### 8 [id number] #### [facility] [address] [place] [address], [facility] aPTT Coag (Bld) [Time] 32.6 s Normal 25.0-35.0 Th e [facility] Comment on above: Result Comment: [...] PURPOSE. Performed By: #### 8 [id number] #### [facility] [address] [place] [address], [facility] ARTERIAL BLOOD GAS WITH ICAo n 06-07-2019 BASE EXCESS -3 mmol/L Low -2-3 [facility] Comment on above: Performed By: #### 8 4511 ####[facility] [place] [address], [facility] DELIVERY SYSTEMS VENTILATOR Normal [facility] Comment on above: Performed By: #### 8 4511 ####[facility] [place] [address], [facility] FIO2 40 % Normal [facility] Comment on above: Performed By: #### 8 4511 ####[facility] [place] [address], [facility] HCO3 (Bld) [Moles/Vol] 22 mmol/L Normal 21-28 Th e [facility] Comment on above: Performed By: #### 8 4511 ####[facility] [facility] [place] [address], [facility] IONIZED CALCIUM 1.38 mmol/L High 1.13-1.32 [facility] Comment on above: Performed By: #### 8 4511 ####[facility] [place] [address], [facility] MIN VOLUME 14.5 Normal The [facility] Comment on above: Performed By: #### 8 4511 ####[facility] [place] [address], [facility] MODALITY Positive Normal The [facility] Comment on above: Performed By: #### 8 4511 ####[facility], [place] [address] [place] [address] Oxygen (Bld) [Partial pressure] 144 mm[Hg] Critically high 83-108 The [facility] Comment on above: Performed By: #### 8 4511 ####[facility] [place] [address], [facility] Oxygen saturation in Blood 96.7 % Normal 94.0-97.0 The [facility] Comment on above: Performed By: #### 8 4511 ####[facility] [place] [address], [facility] PCO2 35 mmHg Normal 35-45 The [facility] Comment on above: Performed By: #### 8 4511 ####[facility] [place] [address], [facility] PEEP 8.0 CMH20 Normal The [facility] Comment on above: Performed By: #### 8 4511 ####[facility], [address] pH (Bld) 7.40 [pH] Normal 7.35-7.45 The [facility] Comment on above: Performed By: #### 8 4511 ####[facility] [facility].[address] PRESSURE SUPPORT 8 Normal The [facility] Comment on above: Performed By: #### 8 4511 ####[facility] BASE EXCESS -2 mmol/L Normal -2-3 The [facility] Comment on above: Performed By: #### 8 4511 ####[facility] DELIVERY SYSTEMS VENT Normal The [facility] Comment on above: Performed By: #### 8 4511 ####[facility] [facility].[address] FIO2 40 % Normal [facility] Comment on above: Performed By: #### 8 4511 ####[facility] HCO3 (Bld) [Moles/Vol] 23 mmol/L Normal 21-28 Th e [facility] Comment on above: Performed By: #### 8 4511 ####[facility] [facility].[address] IONIZED CALCIUM 1.48 mmol/L High 1.13-1.32 The [facility] Comment on above: Performed By: #### 8 4511 ####[facility] [place] [address], [facility] MIN VOLUME 6.0 Normal [facility] Comment on above: Performed By: #### 8 4511 ####[facility] [place] [address], [facility] MODALITY SIMV Normal [facility] Comment on above: Performed By: #### 8 4511 ####[facility] [place] [address], [facility] Oxygen (Bld) [Partial pressure] 105 mm[Hg] Normal 83-108 [facility] Comment on above: Performed By: #### 8 4511 ####[facility] [place] [address], [facility] Oxygen saturation in Blood 96.7 % Normal 94.0-97.0 [facility] Comment on above: Performed By: #### 8 4511 ####[facility] [place] [address], [facility] PCO2 42 mmHg Normal 35-45 [facility] Comment on above: Performed By: #### 8 4511 ####[facility] [place] [address], [facility] PEEP 8.0 CMH20 Normal [facility] Comment on above: Performed By: #### 8 4511 ####[facility] [place] [address], [facility] pH (Bld) 7.35 [pH] Normal 7.35-7.45 [facility] Comment on above: Performed By: #### 8 4511 ####[facility] [place] [address], [facility] PRESSURE SUPPORT 5 Normal [facility] Comment on above: Performed By: #### 8 4511 ####[facility] [place] [address], [place] TIDAL VOLUME (VT) CC 500 cc Normal [facility] Comment on above: Performed By: #### 8 4511 ####[facility] [place] [address], [place] BASE EXCESS 0 mmol/L Normal -2-3 [facility] Comment on above: Performed By: #### 8 5499 #### [facility] [address] [place] [address], [place] DELIVERY SYSTEMS VENT Normal [facility] Comment on above: Performed By: #### 8 5499 #### [facility] [address] [place] [address], [place] FIO2 40 % Normal [facility] Comment on above: Performed By: #### 8 5499 #### [facility] [address] [place] [address], [place] HCO3 (Bld) [Moles/Vol] 24 mmol/L Normal 21-28 e [facility] Comment on above: Performed By: #### 8 5499 #### [facility] [address] [place] [address], [place] IONIZED CALCIUM 1.34 mmol/L High 1.13-1.32 The [facility] Comment on above: Performed By: #### 8 5499 #### [facility] [address] [place] [address], [place] MIN VOLUME 11.0 Normal The [facility] Comment on above: Performed By: #### 8 5499 #### [facility] [address] [place] [address], [place] MODALITY Positive Normal The [facility] Comment on above: Performed By: #### 8 5499 #### [facility] [address] [place] [address], [place] Oxygen (Bld) [Partial pressure] 157 mm[Hg] Critically high 83-108 The [facility] Comment on above: Performed By: #### 8 5499 #### [facility] [address] [place] [address], [place] Oxygen saturation in Blood 96.5 % Normal 94.0-97.0 The [facility] Comment on above: Performed By: #### 8 5499 #### [facility] [address] [place] [address], [place] PCO2 33 mmHg Low 35-45 [facility] Comment on above: Performed By: #### 8 5499 #### [facility] [address] [place] [address], [place] PEEP 8.0 CMH20 Normal [facility] Comment on above: Performed By: #### 8 5499 #### [facility] [address] [place] [address], [place] pH (Bld) 7.46 [pH] High 7.35-7.45 The [facility] Comment on above: Performed By: #### 8 5499 #### [facility] [address] [place] [address], [place] PRESSURE SUPPORT 10 Normal [facility] Comment on above: Performed By: #### 8 5499 #### [facility] [address] [place] [address], [facility] BASE EXCESS -2 mmol/L Normal -2-3 [facility] Comment on above: Order Comment: R/O P neumothorax Performed By: #### 8 4511 ####[facility] [place] [address], [facility] DELIVERY SYSTEMS VENT Normal The [facility] Comment on above: Order Comment: R/O P neumothorax Performed By: #### 8 4511 ####[facility] [place] [address], [place] FIO2 50 % Normal [facility] Comment on above: Order Comment: R/O P neumothorax Performed By: #### 8 4511 ####[facility] [place] [address], [place] HCO3 (Bld) [Moles/Vol] 23 mmol/L Normal 21-28 e [facility] Comment on above: Order Comment: R/O P neumothorax Performed By: #### 8 4511 ####[facility] [place] [address], [facility] IONIZED CALCIUM 1.39 mmol/L High 1.13-1.32 [facility] Comment on above: Order Comment: R/O P neumothorax Performed By: #### 8 4511 ####[facility] [place] [address], [facility] MIN VOLUME 6.0 Normal [facility] Comment on above: Order Comment: R/O P neumothorax Performed By: #### 8 4511 ####[facility] [place] [address], [facility] MODALITY SIMV Normal [facility] Comment on above: Order Comment: R/O P neumothorax Performed By: #### 8 4511 ####[facility] [place] [address], [facility] Oxygen (Bld) [Partial pressure] 168 mm[Hg] Critically high 83-108 The [facility] Comment on above: Order Comment: R/O P neumothorax Performed By: #### 8 4511 ####[facility] [place] [address], [facility] Oxygen saturation in Blood 97.2 % High 94.0-97.0 The [facility] Comment on above: Order Comment: R/O P neumothorax Performed By: #### 8 4511 ####[facility] [place] [address], [facility] PCO2 42 mmHg Normal 35-45 The [facility] Comment on above: Order Comment: R/O P neumothorax Performed By: #### 8 4511 ####[facility] [place] [address], [place] PEEP 8.0 CMH20 Normal The [facility] Comment on above: Order Comment: R/O P neumothorax Performed By: #### 8 4511 ####[facility] [place] [address], [facility] pH (Bld) 7.35 [pH] Normal 7.35-7.45 [facility] Comment on above: Order Comment: R/O P neumothorax Performed By: #### 8 4511 ####[facility] [place] [address], [facility] PRESSURE SUPPORT 5 Normal [facility] Comment on above: Order Comment: R/O P neumothorax Performed By: #### 8 4511 ####[facility] [place] [address], [facility] TIDAL VOLUME (VT) CC 500 cc Normal The [facility] Comment on above: Order Comment: R/O P neumothorax Performed By: #### 8 4511 ####[facility] [place] [address], [facility] BASIC METABOLIC PANELon 12-0 2019 Calcium [Mass/Vol] 10.1 mg/dL Normal 8.6-10.3 [facility] Comment on above: Order Comment: No: D o not add to previous draw Performed By: #### 8 [id number] #### [facility] [address] [place] [address], [place] Chloride [Moles/Vol] 107 mmol/L Normal 98-107 The [facility] Comment on above: Order Comment: No: D o not add to previous draw Performed By: #### 8 5499 #### [facility] [address] [place] [address], [place] CO2 [Moles/Vol] 24 mmol/L Normal 21-31 The [facility] Comment on above: Order Comment: No: D o not add to previous draw Performed By: #### 8 5499 #### [facility] [address] [place] [address], [place] Creatinine [Mass/Vol] 1.66 mg/dL High 0.70-1.30 The [facility] Comment on above: Order Comment: No: D o not add to previous draw Performed By: #### 8 5499 #### [facility] [address] [place] [address], [place] GFR/1.73 sq M predicted among blacks MDRD (S/P/Bld) [Vol rate/Area] 49 ml/min/1.73sq m Abnormal >60 [facility] Comment on above: Order Comment: No: D o not add to previous draw Result Comment: Calc ulation may not be valid for patients over 70 years Performed By: #### 8 [id number] #### [facility] [address] [place] [address], [place] GFR/1.73 sq M predicted among non-blacks MDRD (S/P/Bld) [Vol rate/Area] 41 ml/min/1.73sq m Abnormal >60 [facility] Comment on above: Order Comment: No: D o not add to previous draw Result Comment: Calc ulation may not be valid for patients over 70 years Performed By: #### 8 [id number] #### [facility] [address] [place] [address], [place] Glucose [Mass/Vol] 115 mg/dL High 70-100 The [facility] Comment on above: Order Comment: No: D o not add to previous draw Performed By: #### 8 5499 #### [facility] [address] [place] [address], [place] Sodium [Moles/Vol] 136 mmol/L Normal 136-145 The [facility] Comment on above: Order Comment: No: D o not add to previous draw Performed By: #### 8 5499 #### [facility] [address] [place] [address], [place] Urea nitrogen [Mass/Vol] 31 mg/dL High 7-25 The [facility] Comment on above: Order Comment: No: D o not add to previous draw Performed By: #### 8 5499 #### [facility] [address] [place] [address], [place] Calcium [Mass/Vol] 9.4 mg/dL Normal 8.6-10.3 [facility] Comment on above: Order Comment: No: D o not add to previous draw Performed By: #### 8 7002 #### [facility] [address] [place] [address], [place] Chloride [Moles/Vol] 104 mmol/L Normal 98-107 The [facility] Comment on above: Order Comment: No: D o not add to previous draw Performed By: #### 8 7002 #### [facility] [address] [place] [address], [place] CO2 [Moles/Vol] 23 mmol/L Normal 21-31 The [facility] Comment on above: Order Comment: No: D o not add to previous draw Performed By: #### 8 7002 #### [facility] [address] [place] [address], [place] Creatinine [Mass/Vol] 1.73 mg/dL High 0.70-1.30 The [facility] Comment on above: Order Comment: No: D o not add to previous draw Performed By: #### 8 7002 #### [facility] [address] [place] [address], [place] GFR/1.73 sq M predicted among blacks MDRD (S/P/Bld) [Vol rate/Area] 47 ml/min/1.73sq m Abnormal >60 [facility] Comment on above: Order Comment: No: D o not add to previous draw Result Comment: Calc ulation may not be valid for patients over 70 years Performed By: #### 8 7002 #### [facility] [address] [place] [address], [place] GFR/1.73 sq M predicted among non-blacks MDRD (S/P/Bld) [Vol rate/Area] 39 ml/min/1.73sq m Abnormal >60 [facility] Comment on above: Order Comment: No: D o not add to previous draw Result Comment: Calc ulation may not be valid for patients over 70 years Performed By: #### 8 7002 #### [facility] [address] [place] [address], [place] Glucose [Mass/Vol] 128 mg/dL High 70-100 [facility] Comment on above: Order Comment: No: D o not add to previous draw Performed By: #### 8 7002 #### [facility] [address] [place] [address], [place] Potassium [Moles/Vol] 3.9 mmol/L Normal 3.5-5.1 [facility] Comment on above: Order Comment: No: D o not add to previous draw Performed By: #### 8 5499 #### [facility] [address] [place] [address], [place] Performed By: #### 8 7002 #### [facility] [address] [place] [address], [place] Sodium [Moles/Vol] 134 mmol/L Low 136-145 [facility] Comment on above: Order Comment: No: D o not add to previous draw Performed By: #### 8 7002 #### [facility] [address] [place] [address], [place] Urea nitrogen [Mass/Vol] 34 mg/dL High 7-25 The [facility] Comment on above: Order Comment: No: D o not add to previous draw Performed By: #### 8 7002 #### [facility] [address] [place] [address], [place] Calcium [Mass/Vol] 10.7 mg/dL High 8.6-10.3 [facility] Comment on above: Performed By: #### 4 1000, 03239, 14960 ####[facility] [place] [address], [facility] Chloride [Moles/Vol] 101 mmol/L Normal 98-107 [facility] Comment on above: Performed By: #### 4 1000, 94885, 07025 ####[facility] [place] [address], [place] CO2 [Moles/Vol] 20 mmol/L Low 21-31 [facility] Comment on above: Performed By: #### 4 1000, 02292, 97544 ####[facility] [place] [address], [facility] Creatinine [Mass/Vol] 1.79 mg/dL High 0.70-1.30 The [facility] Comment on above: Performed By: #### 4 999, 06607, 39346 ####[facility] [place] [address], [place] GFR/1.73 sq M predicted among blacks MDRD (S/P/Bld) [Vol rate/Area] 45 ml/min/1.73sq m Abnormal >60 [facility] Comment on above: Result Comment: Calc ulation may not be valid for patients over 70 years Performed By: #### 4 999, 81729, 29509 ####[facility] [place] [address], [place] GFR/1.73 sq M predicted among non-blacks MDRD (S/P/Bld) [Vol rate/Area] 37 ml/min/1.73sq m Abnormal >60 [facility] Comment on above: Result Comment: Calc ulation may not be valid for patients over 70 years Performed By: #### 4 1000, 34008, 10463 ####[facility] Glucose [Mass/Vol] 219 mg/dL High 70-100 [facility] Comment on above: Performed By: #### 4 1000, 17203, 36952 ####[facility] [place] [address], [facility] Potassium [Moles/Vol] 4.2 mmol/L Normal 3.5-5.1 The [facility] Comment on above: Performed By: #### 4 1000, 56826, 21685 ####[facility] [facility] [address], [facility] Sodium [Moles/Vol] 128 mmol/L Low 136-145 [facility] Comment on above: Performed By: #### 4 1000, 22012, 45379 ####[facility] [facility] Urea nitrogen [Mass/Vol] 37 mg/dL High 7-25 The [facility] Comment on above: Performed By: #### 4 1000, 56159, 35110 ####[facility] [facility].[address] CARDIAC MAGNESIUM BLOODon Magnesium [Mass/Vol] 2.1 mg/dL Normal 1.9-2.7 The [facility] Comment on above: Performed By: #### 8 7002 #### [facility] [address] [facility] CBC COMPLETE BLOOD COUNTon 1 08-08-2018 Hematocrit (Bld) [Volume fraction] 23.0 % Low 39.0-50.0 The [facility] Comment on above: Order Comment: No: D o not add to previous draw Dup Performed By: #### 5 5346 #### [facility] [address] [place] [address], [facility] MCH (RBC) [Entitic mass] 29.4 pg Normal 27.0-33.0 [facility] Comment on above: Order Comment: No: D o not add to previous draw Dup Performed By: #### 5 0608 #### [facility] [address] [place] [id number], [facility] MCHC (RBC) [Mass/Vol] 33.9 g/dL Normal 32.0-35.0 [facility] Comment on above: Order Comment: No: D o not add to previous draw Dup Performed By: #### 5 0608 #### [facility] [address] [place] [address], [facility] MCV (RBC) [Entitic vol] 86.8 fL Normal 82.0-98.0 [facility] Comment on above: Order Comment: No: D o not add to previous draw Dup Performed By: #### 5 0608 #### [facility] [address] [place] [id number], [facility] PLAT CNT 101 10*3/uL Low 150-400 [facility] Comment on above: Order Comment: No: D o not add to previous draw Dup Performed By: #### 5 0608 #### [facility] [address] [facility] [place] [id number], [facility] RBC (Bld) [#/Vol] 2.65 10*6/uL Low 4.20-5.70 [facility] Comment on above: Order Comment: No: D o not add to previous draw Dup Performed By: #### 5 0608 #### [facility] [address] [place] [address], [facility] WBC (Bld) [#/Vol] 11.51 10*3/uL High 4.00-10.60 [facility] Comment on above: Order Comment: No: D o not add to previous draw Dup Performed By: #### 5 0608 #### [facility] [address] [place] [address], [facility] Erythrocyte distribution width (RBC) [Ratio] 13.2 % Normal 11.5-15.0 The [facility] Comment on above: Order Comment: No: D o not add to previous draw Dup Performed By: #### 5 0608 #### [facility] [address] [place] [address], [facility] Hematocrit (Bld) [Volume fraction] 24.4 % Low 39.0-50.0 [facility] Comment on above: Performed By: #### 5 0608 #### [facility] [address] [place] [address], [facility] Hemoglobin (Bld) [Mass/Vol] 8.1 g/dL Low 13.0-17.0 [facility] Comment on above: Performed By: #### 5 0608 #### [facility] [address] [place] [address], [facility] MCH (RBC) [Entitic mass] 29.1 pg Normal 27.0-33.0 The [facility] Comment on above: Performed By: #### 5 0608 #### [facility] [address] MCHC (RBC) [Mass/Vol] 33.2 g/dL Normal 32.0-35.0 The [facility] Comment on above: Performed By: #### 5 0608 #### [facility] [address] [place] [address], [facility] MCV (RBC) [Entitic vol] 87.8 fL Normal 82.0-98.0 T isabella [facility] Comment on above: Performed By: #### 5 0608 #### [facility] [address] [place] [address], [facility] Nucleated RBC/100 WBC (Bld) [Ratio] 0 % Normal 0-0 The [facility] Comment on above: Order Comment: No: D o not add to previous draw Dup Performed By: #### 5 0608 #### [facility] [address] Order Comment: No: D o not add to previous draw Performed By: #### 3 0313 #### [facility] [address] [place] [address], [facility] PLAT CNT 125 10*3/uL Low 150-400 [facility] Comment on above: Performed By: #### 5 0608 #### [facility] [address] [place] [address], [facility] RBC (Bld) [#/Vol] 2.78 10*6/uL Low 4.20-5.70 [facility] Comment on above: Performed By: #### 5 0608 #### [facility] [address] [place] [address], [facility] WBC (Bld) [#/Vol] 14.37 10*3/uL High 4.00-10.60 [facility] Comment on above: Performed By: #### 5 0608 #### [facility] [address] [place] [address], [facility] Erythrocyte distribution width (RBC) [Ratio] 13.1 % Normal 11.5-15.0 The [facility] Comment on above: Order Comment: No: D o not add to previous draw Dup Performed By: #### 5 0608 #### [facility] [address] [place] [address], [facility] Hematocrit (Bld) [Volume fraction] 25.4 % Low 39.0-50.0 The [facility] Comment on above: Order Comment: No: D o not add to previous draw Dup Performed By: #### 5 0608 #### [facility] [address] [place] [address], [facility] Hemoglobin (Bld) [Mass/Vol] 8.7 g/dL Low 13.0-17.0 The [facility] Comment on above: Order Comment: No: D o not add to previous draw Dup Performed By: #### 5 0608 #### [facility] [address] [place] [address], [facility] MCH (RBC) [Entitic mass] 29.6 pg Normal 27.0-33.0 [facility] Comment on above: Order Comment: No: D o not add to previous draw Dup Performed By: #### 5 0608 #### [facility] [address] [place] [address], [facility] MCHC (RBC) [Mass/Vol] 34.3 g/dL Normal 32.0-35.0 [facility] Comment on above: Order Comment: No: D o not add to previous draw Dup Performed By: #### 5 0608 #### [facility] [address] [facility] [address], [facility] MCV (RBC) [Entitic vol] 86.4 fL Normal 82.0-98.0 T [facility] Comment on above: Order Comment: No: D o not add to previous draw Dup Performed By: #### 5 0608 #### [facility] [address] [place] [address], [facility] PLAT CNT 145 10*3/uL Low 150-400 [facility] Comment on above: Order Comment: No: D o not add to previous draw Dup Performed By: #### 5 0608 #### [facility] [address] [facility] [address], [facility] Order Comment: No: D o not add to previous draw Performed By: #### 3 0313 #### [facility] [address] [place] [address], [facility] RBC (Bld) [#/Vol] 2.94 10*6/uL Low 4.20-5.70 [facility] Comment on above: Order Comment: No: D o not add to previous draw Dup Performed By: #### 5 0608 #### [facility] [address] [place] [address], [facility] WBC (Bld) [#/Vol] 13.47 10*3/uL High 4.00-10.60 The [facility] Comment on above: Order Comment: No: D o not add to previous draw Dup Performed By: #### 5 0608 #### [facility] [address] [place] [address], [facility] Hematocrit (Bld) [Volume fraction] 22.6 % Low 39.0-50.0 The [facility] Comment on above: Order Comment: No: D o not add to previous draw Performed By: #### 3 0313 #### [facility] [address] [place] [id number], [facility] Hemoglobin (Bld) [Mass/Vol] 7.7 g/dL Low 13.0-17.0 [facility] Comment on above: Order Comment: No: D o not add to previous draw Performed By: #### 3 0313 #### [facility] [address] [place] [address], [facility] MCH (RBC) [Entitic mass] 30.0 pg Normal 27.0-33.0 [facility] Comment on above: Order Comment: No: D o not add to previous draw Performed By: #### 3 0313 #### [facility] [address] [place] [address], [facility] MCHC (RBC) [Mass/Vol] 34.1 g/dL Normal 32.0-35.0 [facility] Comment on above: Order Comment: No: D o not add to previous draw Performed By: #### 3 0313 #### [facility] [address] [place] [address], [facility] MCV (RBC) [Entitic vol] 87.9 fL Normal 82.0-98.0 T isabella [facility] Comment on above: Order Comment: No: D o not add to previous draw Performed By: #### 3 0313 #### [facility] [address] [place] [id number], [facility] RBC (Bld) [#/Vol] 2.57 10*6/uL Low 4.20-5.70 [facility] Comment on above: Order Comment: No: D o not add to previous draw Performed By: #### 3 0313 #### [facility] [address] [place] [address], [facility] WBC (Bld) [#/Vol] 12.23 10*3/uL High 4.00-10.60 [facility] Comment on above: Order Comment: No: D o not add to previous draw Performed By: #### 3 0313 #### [facility] [address] [place] [address], [facility] Erythrocyte distribution width (RBC) [Ratio] 12.7 % Normal 11.5-15.0 [facility] Comment on above: Order Comment: No: D o not add to previous draw Performed By: #### 3 0313 #### [facility] [address] Performed By: #### 5 0608 #### [facility] [address] [place] [address], [facility] Hematocrit (Bld) [Volume fraction] 21.9 % Low 39.0-50.0 [facility] Comment on above: Performed By: #### 5 0608 #### [facility] [address] [place] [address], [facility] Hemoglobin (Bld) [Mass/Vol] 7.2 g/dL Low 13.0-17.0 [facility] Comment on above: Performed By: #### 5 0608 #### [facility] [address] [place] [address], [facility] MCH (RBC) [Entitic mass] 29.6 pg Normal 27.0-33.0 [facility] Comment on above: Performed By: #### 5 0608 #### [facility] [address] [place] [address], [facility] MCHC (RBC) [Mass/Vol] 32.9 g/dL Normal 32.0-35.0 [facility] Comment on above: Performed By: #### 5 0608 #### [facility] [address] [place] [address], [facility] MCV (RBC) [Entitic vol] 90.1 fL Normal 82.0-98.0 T he [facility] Comment on above: Performed By: #### 5 0608 #### [facility] [address] [place] [address], [facility] PLAT CNT 168 10*3/uL Normal 150-400 [facility] Comment on above: Performed By: #### 5 0608 #### [facility] [address] [place] [address], [facility] RBC (Bld) [#/Vol] 2.43 10*6/uL Low 4.20-5.70 [facility] Comment on above: Performed By: #### 5 0608 #### [facility] [address] [place] [address], [facility] WBC (Bld) [#/Vol] 17.05 10*3/uL High 4.00-10.60 [facility] Comment on above: Performed By: #### 5 0608 #### [facility] [address] [place] [address], [facility] Hemoglobin (Bld) [Mass/Vol] 7.8 g/dL Low 12.0-17.0 [facility] Comment on above: Order Comment: No: D o not add to previous draw Dup Performed By: #### 5 0608 #### [facility] [address] Performed By: #### 8 5499 #### [facility] [address] [place] [address], [facility] COOXIMETRYon 06-07-2019 COHB 2 % Normal The [facility] Comment on above: Performed By: #### 7 0207 ####[facility] [place] [address], [facility] METHB 1 % Normal [facility] Comment on above: Performed By: #### 7 0207 ####[facility] [place] [address], [facility] Oxygen saturation in Blood 72.8 % Normal 65.0-75.0 [facility] Comment on above: Performed By: #### 7 0207 ####[facility] [place] [address], [facility] THB 8.5 g/dL Normal The [facility] Comment on above: Performed By: #### 7 0207 ####[facility] [place] [address], [facility] FIBRINOGENon 06-07-2019 FIBRINOGEN 217 mg/dL Normal 150-425 [facility] Comment on above: Performed By: #### 8 5499 #### [facility] [address] [place] [address], [facility] FRESH FROZEN PLASMA 2 UNITSo n 06-07-2019 PRODUCT CODE 1 E2701 Normal [facility] Comment on above: Performed By: #### 8 7002 #### [facility] [address] [place] [address], [facility] PRODUCT CODE 2 E2701 Normal [facility] Comment on above: Performed By: #### 8 7002 #### [facility] [address] [place] [address], [facility] PRODUCT STATUS 1 PT Normal [facility] Comment on above: Result Comment: Resu lt changed by IF on 06/07/2019 19:01. The previous value was XM. Result changed by IF on 06/08/2019 00:30. The previous value was IS. Performed By: #### 8 7002 #### [facility] [address] [place] [address], [facility] PRODUCT STATUS 2 PT Normal The [facility] Comment on above: Result Comment: Resu lt changed by IF on 06/07/2019 19:01. The previous value was XM. Result changed by IF on 06/07/2019 19:40. The previous value was IS. Result changed by IF on 06/07/2019 21:57. The previous value was XM. Result changed by IF on 06/08/2019 00:30. The previous value was IS. Performed By: #### 8 700 #### [facility] [address] [place] [address], [facility] UNIT ABO 1 AB Normal The [facility] Comment on above: Performed By: #### 8 7001 #### [facility] [address] [place] [address], [facility] UNIT ABO 2 AB Normal The [facility] Comment on above: Performed By: #### 8 7001 #### [facility] [address] [place] [address], [facility] UNIT ID 1 [id number] Normal The [facility] Comment on above: Performed By: #### 8 7001 #### [facility] [address] [place] [address], [facility] UNIT ID 2 [id number] Normal The [facility] Comment on above: Performed By: #### 8 7001 #### [facility] [address] [place] [address], [facility] UNIT RH 1 Positive Normal The [facility] Comment on above: Performed By: #### 8 7001 #### [facility] [address] [place] [address], [place] UNIT RH 2 Positive Normal The [facility] Comment on above: Performed By: #### 8 7001 #### [facility] [address] [place] [address], [place] LACTATE BLOODon 06-07-2019 Lactate [Moles/Vol] 1.7 mmol/L Normal 0.5-2.2 [facility] Comment on above: Order Comment: No: D o not add to previous draw Performed By: #### 8 5499 #### [facility] [address] [place] [address], [facility] Lactate [Moles/Vol] 1.3 mmol/L Normal 0.5-2.2 [facility] Comment on above: Order Comment: No: D o not add to previous draw Performed By: #### 8 7002 #### [facility] [address] [place] [address], [facility] Lactate [Moles/Vol] 1.4 mmol/L Normal 0.5-2.2 [facility] Comment on above: Performed By: #### 8 5499 #### [facility] [address] [place] [address], [facility] MAGNESIUM BLOODon 06-07-2019 Magnesium [Mass/Vol] 2.0 mg/dL Normal 1.9-2.7 [facility] Comment on above: Order Comment: No: D o not add to previous draw Performed By: #### 8 5499 #### [facility] [address] [place] [address], [facility] Magnesium [Mass/Vol] 2.7 mg/dL Normal 1.9-2.7 [facility] Comment on above: Performed By: #### 4 1000, 92194, 80893 ####[facility] [place] [address], [facility] OSMOLALITY BLOODon 9 Osmolality [Osmolality] 292 mOsm/kg Normal 285-305 [facility] Comment on above: Order Comment: No: D o not add to previous draw Performed By: #### 8 7002 #### [facility] [address] [place] [address], [facility] PERFUSION BLOOD PANELon 12-0 BASE EXCESS -2.0 mmol/L Normal -2.0-3.0 The [facility] Comment on above: Performed By: #### 8 5499 #### [facility] [address] [place] [address], [facility] Glucose [Mass/Vol] 125 mg/dL High 70-105 [facility] Comment on above: Performed By: #### 8 5499 #### [facility] [address] [place] [address], [facility] Hematocrit (Bld) [Volume fraction] 27 % Low 38-51 [facility] Comment on above: Performed By: #### 8 5499 #### [facility] [address] [place] [address], [facility] Hemoglobin (Bld) [Mass/Vol] 9.2 g/dL Low 12.0-17.0 [facility] Comment on above: Performed By: #### 8 5499 #### [facility] [address] [place] [address], [facility] IONIZED CALCIUM 1.36 mmol/L High 1.12-1.32 [facility] Comment on above: Performed By: #### [id number] #### [facility] [address] [place] [address], [facility] Oxygen (Bld) [Partial pressure] 300.0 mm[Hg] High 80.0-105.0 [facility] Comment on above: Performed By: #### [id number] #### [facility] [address] [place] [id number], [facility] PCO2 50.8 mmHg High 35.0-45.0 [facility] Comment on above: Performed By: #### [id number] #### [facility] [address] [place] [address], [facility] pH (Bld) 7.30 [pH] Low 7.35-7.45 [facility] Comment on above: Performed By: #### [id number] #### [facility] [address] [place] [address], [facility] Potassium [Moles/Vol] 3.6 mmol/L Normal 3.5-4.9 [facility] Comment on above: Performed By: #### [id number] #### [facility] [address] [place] [address], [facility] Sodium [Moles/Vol] 138 mmol/L Normal 138-146 The [facility] Comment on above: Performed By: #### 8 5499 #### [facility] [address] [place] [address], [facility] BASE EXCESS -6.0 mmol/L Low -2.0-3.0 The [facility] Comment on above: Performed By: #### 8 5499 #### [facility] [address] [place] [address], [facility] Glucose [Mass/Vol] 186 mg/dL High 70-105 [facility] Comment on above: Performed By: #### 8 5499 #### [facility] [address] [place] [address], [facility] Hematocrit (Bld) [Volume fraction] 21 % Low 38-51 The [facility] Comment on above: Performed By: #### 8 5499 #### [facility] [address] [place] [address], [facility] Hemoglobin (Bld) [Mass/Vol] 7.1 g/dL Low 12.0-17.0 The [facility] Comment on above: Performed By: #### 8 5499 #### [facility] [address] [place] [address], [facility] IONIZED CALCIUM 1.71 mmol/L Critically high 1.12-1.32 The [facility] Comment on above: Performed By: #### 8 5499 #### [facility] [address] [place] [address], [facility] Oxygen (Bld) [Partial pressure] 112.0 mm[Hg] High 80.0-105.0 [facility] Comment on above: Performed By: #### 8 5499 #### [facility] [address] [place] [address], [place] PCO2 44.6 mmHg Normal 35.0-45.0 [facility] Comment on above: Performed By: #### 8 5499 #### [facility] [address] [place] [address], [place] pH (Bld) 7.26 [pH] Low 7.35-7.45 The [facility] Comment on above: Performed By: #### 8 5499 #### [facility] [address] [place] [address], [place] Potassium [Moles/Vol] 4.2 mmol/L Normal 3.5-4.9 [facility] Comment on above: Performed By: #### 8 5499 #### [facility] [address] [place] [address], [place] Sodium [Moles/Vol] 132 mmol/L Low 138-146 [facility] Comment on above: Performed By: #### 8 5499 #### [facility] [address] [place] [address], [place] BASE EXCESS -6.0 mmol/L Low -2.0-3.0 The [facility] Comment on above: Performed By: #### 8 5499 #### [facility] [address] [place] [address], [place] Glucose [Mass/Vol] 211 mg/dL High 70-105 [facility] Comment on above: Performed By: #### 8 5499 #### [facility] [address] [place] [address], [place] Hematocrit (Bld) [Volume fraction] 21 % Low 38-51 The [facility] Comment on above: Performed By: #### 8 5499 #### [facility] [address] [place] [address], [facility] Hemoglobin (Bld) [Mass/Vol] 7.1 g/dL Low 12.0-17.0 [facility] Comment on above: Performed By: #### 8 5499 #### [facility] [address] [place] [address], [facility] IONIZED CALCIUM 1.71 mmol/L Critically high 1.12-1.32 The [facility] Comment on above: Performed By: #### 8 5499 #### [facility] [address] [place] [address], [facility] Oxygen (Bld) [Partial pressure] 103.0 mm[Hg] Normal 80.0-105.0 [facility] Comment on above: Performed By: #### 8 5499 #### [facility] [address] [place] [address], [facility] PCO2 39.8 mmHg Normal 35.0-45.0 [facility] Comment on above: Performed By: #### 8 5499 #### [facility] [address] [place] [address], [facility] pH (Bld) 7.30 [pH] Low 7.35-7.45 [facility] Comment on above: Performed By: #### 8 5499 #### [facility] [address] [place] [address], [place] Potassium [Moles/Vol] 4.1 mmol/L Normal 3.5-4.9 [facility] Comment on above: Performed By: #### 8 5499 #### [facility] [address] [place] [address], [place] Sodium [Moles/Vol] 130 mmol/L Low 138-146 [facility] Comment on above: Performed By: #### 8 5499 #### [facility] [address] [place] [address], [facility] BASE EXCESS -2.0 mmol/L Normal -2.0-3.0 [facility] Comment on above: Performed By: #### 3 0738 #### [facility] [address] [place] [address], [facility] Glucose [Mass/Vol] 219 mg/dL High 70-105 [facility] Comment on above: Performed By: #### 3 0738 #### [facility] [address] [facility] Hematocrit (Bld) [Volume fraction] 26 % Low 38-51 [facility] Comment on above: Performed By: #### 3 0738 #### [facility] [address] [facility] Hemoglobin (Bld) [Mass/Vol] 8.8 g/dL Low 12.0-17.0 [facility] Comment on above: Performed By: #### 3 0738 #### [facility] [address] [place] [address], [facility] IONIZED CALCIUM 1.07 mmol/L Low 1.12-1.32 [facility] Comment on above: Performed By: #### 3 0738 #### [facility] [address] [facility] Oxygen (Bld) [Partial pressure] 308.0 mm[Hg] High 80.0-105.0 [facility] Comment on above: Performed By: #### 3 0738 #### [facility] [address] [place] [address], [facility] PCO2 33.2 mmHg Low 35.0-45.0 [facility] Comment on above: Performed By: #### 3 0738 #### [facility] [address] [place] [address], [facility] pH (Bld) 7.42 [pH] Normal 7.35-7.45 [facility] Comment on above: Performed By: #### 3 0738 #### [facility] [address] [place] [address], [facility] Potassium [Moles/Vol] 5.3 mmol/L High 3.5-4.9 [facility] Comment on above: Performed By: #### 3 0738 #### [facility] [address] [place] [address], [facility] Sodium [Moles/Vol] 130 mmol/L Low 138-146 [facility] Comment on above: Performed By: #### 3 0738 #### [facility] [address] [place] [address], [facility] BASE EXCESS 0.0 mmol/L Normal -2.0-3.0 [facility] Comment on above: Performed By: #### 8 5499 #### [facility] [address] [place] [address], [facility] Glucose [Mass/Vol] 187 mg/dL High 70-105 [facility] Comment on above: Performed By: #### 8 5499 #### [facility] [address] [place] [address], [facility] Hematocrit (Bld) [Volume fraction] 23 % Low 38-51 [facility] Comment on above: Performed By: #### 8 5499 #### [facility] [address] [place] [address], [facility] IONIZED CALCIUM 1.13 mmol/L Normal 1.12-1.32 [facility] Comment on above: Performed By: #### 8 5499 #### [facility] [address] [place] [address], [facility] Oxygen (Bld) [Partial pressure] 434.0 mm[Hg] High 80.0-105.0 [facility] Comment on above: Performed By: #### 8 5499 #### [facility] [address] [place] [address], [facility] PCO2 37.2 mmHg Normal 35.0-45.0 [facility] Comment on above: Performed By: #### 8 5499 #### [facility] [address] [place] [address], [facility] pH (Bld) 7.43 [pH] Normal 7.35-7.45 [facility] Comment on above: Performed By: #### 8 5499 #### [facility] [address] [place] [address], [facility] Potassium [Moles/Vol] 4.7 mmol/L Normal 3.5-4.9 [facility] Comment on above: Performed By: #### 8 5499 #### [facility] [address] [place] [address], [place] Sodium [Moles/Vol] 131 mmol/L Low 138-146 [facility] Comment on above: Performed By: #### 8 5499 #### [facility] [address] [place] [address], [facility] BASE EXCESS -2.0 mmol/L Normal -2.0-3.0 [facility] Comment on above: Performed By: #### 8 5499 #### [facility] [address] [place] [address], [place] Glucose [Mass/Vol] 163 mg/dL High 70-105 [facility] Comment on above: Performed By: #### 8 5499 #### [facility] [address] [place] [address], [place] Hematocrit (Bld) [Volume fraction] 28 % Low 38-51 [facility] Comment on above: Performed By: #### 8 5499 #### [facility] [address] [place] [address], [facility] Hemoglobin (Bld) [Mass/Vol] 9.5 g/dL Low 12.0-17.0 [facility] Comment on above: Performed By: #### 8 5499 #### [facility] [address] [place] [address], [facility] IONIZED CALCIUM 1.12 mmol/L Normal 1.12-1.32 [facility] Comment on above: Performed By: #### 8 5499 #### [facility] [address] [facility] [address], [facility] Oxygen (Bld) [Partial pressure] 372.0 mm[Hg] High 80.0-105.0 [facility] Comment on above: Performed By: #### 8 5499 #### [facility] [address] [facility] [address], [facility] PCO2 39.6 mmHg Normal 35.0-45.0 The [facility] Comment on above: Performed By: #### 8 5499 #### [facility] [address] [place] [address], [facility] pH (Bld) 7.37 [pH] Normal 7.35-7.45 [facility] Comment on above: Performed By: #### 8 5499 #### [facility] [address] [place] [address], [facility] Potassium [Moles/Vol] 4.3 mmol/L Normal 3.5-4.9 [facility] Comment on above: Performed By: #### 8 5499 #### [facility] [address] [place] [address], [facility] Sodium [Moles/Vol] 131 mmol/L Low 138-146 [facility] Comment on above: Performed By: #### 8 5499 #### [facility] [address] [place] [address], [facility] BASE EXCESS -3.0 mmol/L Low -2.0-3.0 [facility] Comment on above: Performed By: #### 8 5499 #### [facility] [address] [place] [address], [place] Glucose [Mass/Vol] 159 mg/dL High 70-105 [facility] Comment on above: Performed By: #### 8 5499 #### [facility] [address] [place] [address], [facility] Hematocrit (Bld) [Volume fraction] 30 % Low 38-51 [facility] Comment on above: Performed By: #### 8 5499 #### [facility] [address] [place] [address], [facility] Hemoglobin (Bld) [Mass/Vol] 10.2 g/dL Low 12.0-17.0 [facility] Comment on above: Performed By: #### 8 5499 #### [facility] [address] [place] [address], [facility] IONIZED CALCIUM 1.18 mmol/L Normal 1.12-1.32 [facility] Comment on above: Performed By: #### 8 5499 #### [facility] [address] [place] [address], [facility] Oxygen (Bld) [Partial pressure] 207.0 mm[Hg] High 80.0-105.0 [facility] Comment on above: Performed By: #### 8 5499 #### [facility] [address] [place] [address], [facility] PCO2 41.7 mmHg Normal 35.0-45.0 [facility] Comment on above: Performed By: #### 8 5499 #### [facility] [address] [place] [address], [facility] pH (Bld) 7.34 [pH] Low 7.35-7.45 [facility] Comment on above: Performed By: #### 8 5499 #### [facility] [address] [place] [address], [facility] Potassium [Moles/Vol] 4.3 mmol/L Normal 3.5-4.9 [facility] Comment on above: Performed By: #### 8 5499 #### [facility] [address] [place] [address], [facility] Sodium [Moles/Vol] 132 mmol/L Low 138-146 [facility] Comment on above: Performed By: #### 8 5499 #### [facility] [address] [place] [address], [facility] Hematocrit (Bld) [Volume fraction] 30 % Low 38-51 [facility] Comment on above: Performed By: #### 8 5499 #### [facility] [address] [place] [address], [facility] Hemoglobin (Bld) [Mass/Vol] 10.2 g/dL Low 12.0-17.0 [facility] Comment on above: Performed By: #### 8 5499 #### [facility] [address] [place] [address], [facility] Oxygen (Bld) [Partial pressure] 48.0 mm[Hg] Normal [facility] Comment on above: Performed By: #### 8 5499 #### [facility] [address] [place] [address], [facility] BASE EXCESS -1.0 mmol/L Normal -2.0-3.0 [facility] Comment on above: Performed By: #### 8 5499 #### [facility] [address] [place] [address], [place] Glucose [Mass/Vol] 113 mg/dL High 70-105 [facility] Comment on above: Performed By: #### 8 5499 #### [facility] [address] [place] [address], [facility] Hematocrit (Bld) [Volume fraction] 28 % Low 38-51 [facility] Comment on above: Performed By: #### 8 5499 #### [facility] [address] [place] [address], [facility] Hemoglobin (Bld) [Mass/Vol] 9.5 g/dL Low 12.0-17.0 [facility] Comment on above: Performed By: #### 8 5499 #### [facility] [address] [place] [address], [facility] IONIZED CALCIUM 1.18 mmol/L Normal 1.12-1.32 [facility] Comment on above: Performed By: #### 8 5499 #### [facility] [address] [place] [address], [facility] Oxygen (Bld) [Partial pressure] 250.0 mm[Hg] High 80.0-105.0 [facility] Comment on above: Performed By: #### 8 5499 #### [facility] [address] [place] [address], [facility] PCO2 36.1 mmHg Normal 35.0-45.0 [facility] Comment on above: Performed By: #### 8 5499 #### [facility] [address] [place] [address], [facility] pH (Bld) 7.42 [pH] Normal 7.35-7.45 [facility] Comment on above: Performed By: #### 8 5499 #### [facility] [address] [place] [address], [place] Potassium [Moles/Vol] 4.1 mmol/L Normal 3.5-4.9 [facility] Comment on above: Performed By: #### 8 5499 #### [facility] [address] [place] [address], [facility] Sodium [Moles/Vol] 130 mmol/L Low 138-146 [facility] Comment on above: Performed By: #### 8 5499 #### [facility] [address] [place] [address], [place] PHOSPHORUS BLOODon 9 Phosphate [Mass/Vol] 3.8 mg/dL Normal 2.5-5.0 [facility] Comment on above: Order Comment: No: D o not add to previous draw Performed By: #### 8 5499 #### [facility] [address] [place] [address], [place] Phosphate [Mass/Vol] 3.4 mg/dL Normal 2.5-5.0 [facility] Comment on above: Performed By: #### 4 1000, [address], [address]7020 ####[facility] [place] [address], [place] POC GLUCOSE LABon 06-07-2019 Glucose [Mass/Vol] 104 mg/dL High 70-100 [facility] Comment on above: Performed By: #### 8 5499 #### [facility] [address] [place] [address], [place] Glucose [Mass/Vol] 120 mg/dL High 70-100 [facility] Comment on above: Performed By: #### 8 5499 ####[facility] [place] [address], [place] Glucose [Mass/Vol] 146 mg/dL High 70-100 [facility] Comment on above: Performed By: #### 8 5499 #### [facility] [address] [place] [address], [place] Glucose [Mass/Vol] 151 mg/dL High 70-100 [facility] Comment on above: Performed By: #### 8 5499 #### [facility] [address] [place] [address], [facility] Glucose [Mass/Vol] 150 mg/dL High 70-100 [facility] Comment on above: Performed By: #### 8 5499 #### [facility] [address] [place] [address], [facility] Glucose [Mass/Vol] 128 mg/dL High 70-100 [facility] on above: Performed By: #### 8 5499 #### [facility] [address] [place] [address], [facility] PORTABLE CHEST 1 VIEWon PORTABLE CHEST 1 VIEW [facility] Department of Radiology [address] [place] [address] [phone] Patient Name: JASON BARTHOLOMEW : 1945 Sex: M Age: Race: White Pt. Location: [id number] Patient Status: I Ordered Date: 06/07/2019 1:45:00 [...] chest tube. No evidence of right-sided pneumothorax. [place]-Teresa catheter present tip is just inside the [...] pneumothorax Electronically signed by:Paige Hameed. Transcribed by: [email or web address], User Resident: Electronically Signed by: PAIGE HAMEED @ 06/07/2019 03:11 PM Normal [facility] Comment on above: Order Comment: Check Chest Tube Position, ON ARRIVAL TO CVU PORTABLE CHEST FOREIGN BODYo n 06-07-2019 PORTABLE CHEST FOREIGN BODY [facility] Department of Radiology [address] [place] [phone] Patient Name: JASON BARTHOLOMEW : 1945 Sex: M Age: Race: White Pt. Location: [id number] Patient Status: I Ordered Date: 06/07/2019 7:00:00 [...] mediastinal drain, ET tube, enteric tube, and [place]-Teresa catheter are in satisfactory position with no [...] findings. Electronically signed by:Noreen Menendez. Transcribed by: [email or web address], User Resident: NICHOLAS CASEY Electronically Signed by: NOREEN MENENDEZ @ 06/08/2019 06:13 AM I personally read this/these film(s) with this resident Normal [facility] Comment on above: Order Comment: R/O f oreign body PROTHROMBIN TIMEon 9 INR Coag (PPP) [Relative time] 1.44 {INR} High 0.91-1.16 [facility] Comment on above: Result Comment: [...] 1995;108:231S-246S. Performed By: #### 8 5499 #### [facility] [address] PT Coag (PPP) [Time] 17.7 s High 12.3-14.8 [facility] Comment on above: Result Comment: ALL RESULTS MUST BE INTERPRETED WITH RESPECT TO BLOOD DRAWING ARTIFACT OR DILUTION ERROR OF ANTICOAGULANT AT THE TIME OF SAMPLING. Performed By: #### 8 5499 #### [facility] [address] [place] [address], [facility] INR Coag (PPP) [Relative time] 1.33 {INR} High 0.91-1.16 [facility] Comment on above: Order Comment: [...] 1995;108:231S-246S. Performed By: #### 8 5499 #### [facility] [address] [place] [address], [facility] PT Coag (PPP) [Time] 16.6 s High 12.3-14.8 [facility] Comment on above: Order Comment: No: D o not add to previous draw Result Comment: ALL RESULTS MUST BE INTERPRETED WITH RESPECT TO BLOOD DRAWING ARTIFACT OR DILUTION ERROR OF ANTICOAGULANT AT THE TIME OF SAMPLING. Performed By: #### 8 5499 #### [facility] [address] [facility] INR Coag (PPP) [Relative time] 1.42 {INR} High 0.91-1.16 [facility] Comment on above: Result Comment: [...] CLINICAL EFFECTIVENESS, AND OPTIMAL THERAPEUTIC RANGE. CHEST 1994;108:231S-246S. Performed By: #### 8 5499 #### [facility] [address] [place] [address], [facility] PT Coag (PPP) [Time] 17.5 s High 12.3-14.8 [facility] Comment on above: Result Comment: ALL RESULTS MUST BE INTERPRETED WITH RESPECT TO BLOOD DRAWING ARTIFACT OR DILUTION ERROR OF ANTICOAGULANT AT THE TIME OF SAMPLING. Performed By: #### 8 5499 #### [facility] [address] [place] [address], [facility] RBC'S 2 UNITSon 06-07-2019 CROSSMATCH INTERP 1 COMP Normal [facility] Comment on above: Performed By: #### 8 6002 ####[facility] [place] [address], [facility] CROSSMATCH INTERP 2 COMP Normal [facility] Comment on above: Performed By: #### 8 6002 ####[facility] [facility] PRODUCT CODE 1 E0336 Normal [facility] Comment on above: Performed By: #### 8 6002 ####[facility] [place] [address], [facility] PRODUCT CODE 2 E0336 Normal [facility] Comment on above: Performed By: #### 8 6002 ####[facility] [place] [address], [facility] PRODUCT STATUS 1 PT Normal [facility] Comment on above: Result Comment: Resu lt changed by IF on 06/07/2019 18:23. The previous value was XM. Result changed by IF on 06/07/2019 19:40. The previous value was IS. Result changed by IF on 06/08/2019 04:52. The previous value was XM. Result changed by IF on 06/09/2019 00:30. The previous value was IS. Performed By: #### [id number] ####[facility] PRODUCT STATUS 2 PT Normal [facility] Comment on above: Result Comment: Resu lt changed by IF on 06/07/2019 18:23. The previous value was XM. Result changed by IF on 06/07/2019 19:40. The previous value was IS. Result changed by IF on 06/08/2019 03:43. The previous value was XM. Result changed by IF on 06/09/2019 00:30. The previous value was IS. Performed By: #### [id number] ####[facility] [facility].[address] UNIT ABO 1 AB Normal The [facility] Comment on above: Performed By: #### [id number] ####[facility] [facility] HEALTH.[address] UNIT ABO 2 AB Normal The [facility] Comment on above: Performed By: #### [id number] ####[facility].[address] UNIT ID 1 [id number] Normal The [facility] Comment on above: Performed By: #### 8 [id number] ####[facility].[address] UNIT ID 2 [id number] Normal The [facility] Comment on above: Performed By: #### 8 [id number] ####[facility] UNIT RH 1 Positive Normal The [facility] Comment on above: Performed By: #### 8 [id number] ####[facility].[address] UNIT RH 2 Positive Normal The [facility] Comment on above: Performed By: #### 8 [id number] ####[facility] [place] [address], [facility] CROSSMATCH INTERP 1 COMP Normal [facility] Comment on above: Performed By: #### [id number] #### [facility] [address] [place] [address], [place] CROSSMATCH INTERP 2 COMP Normal [facility] Comment on above: Performed By: #### [id number] #### [facility] [address] [place] [address], [facility] PRODUCT CODE 1 E0336 Normal The [facility] Comment on above: Performed By: #### [id number] #### [facility] [address] [place] [address], [facility] PRODUCT CODE 2 E0336 Normal The [facility] Comment on above: Performed By: #### [id number] #### [facility] [address] [place] [address], [facility] PRODUCT STATUS 1 PT Normal The [facility] Comment on above: Result Comment: Resu lt changed by IF on 06/07/2019 09:27. The previous value was XM. Result changed by IF on 06/07/2019 14:24. The previous value was IS. Result changed by IF on 06/07/2019 15:56. The previous value was XM. Result changed by IF on 06/08/2019 00:30. The previous value was IS. Performed By: #### [id number] #### [facility] [address] [place] [address], [facility] PRODUCT STATUS 2 PT Normal The [facility] Comment on above: Result Comment: Resu lt changed by IF on 06/07/2019 09:27. The previous value was XM. Result changed by IF on 06/07/2019 14:24. The previous value was IS. Result changed by IF on 06/07/2019 17:35. The previous value was XM. Result changed by IF on 06/08/2019 00:30. The previous value was IS. Performed By: #### [id number] #### [facility] [address] UNIT ABO 1 AB Normal [facility] Comment on above: Performed By: #### [id number] #### [facility] [address] UNIT ABO 2 AB Normal [facility] Comment on above: Performed By: #### 8 [id number] #### [facility] [address] UNIT ID 1 [id number] Normal The [facility] Comment on above: Performed By: #### 8 [id number] #### [facility] 3000 [facility]. [address] UNIT ID 2 [id number] Normal The [facility] Comment on above: Performed By: #### 8 [id number] #### [facility] 3000 [facility]. [address] UNIT RH 1 Positive Normal [facility] Comment on above: Performed By: #### 8 [id number] #### [facility] 3000 [facility]. [address] UNIT RH 2 Positive Normal [facility] Comment on above: Performed By: #### [id number] #### [facility] [address] UFH HEPARIN ASSAYon 06-07-20 19 UNFRACTIONATED HEPARIN 0.18 IU/mL Low 0.30-0.70 Th e [facility] Comment on above: Result Comment: [place] roxaban and Apixaban will interfere with the anti Xa assay used to monitor UFH and LMWH. Added per Protocol Performed By: #### 8 [id number] #### [facility]. [address] UNFRACTIONATED HEPARIN 0.40 IU/mL Normal 0.30-0.70 Th e [facility] Comment on above: Result Comment: [place] roxaban and Apixaban will interfere with the anti Xa assay used to monitor UFH and LMWH. UFH add per Protocol Performed By: #### 8 [id number] #### [facility] [address] Vital Signs Date Time Vital Sign Value Performing Clinician Facility 07-28-2023 14:00-0500 Body height 175.26 cm Sonali Haddad Other [facility] Other 07-28-2023 14:00-0500 Body mass index (BMI) [Ratio] 28.35 kg/m2 Sonali Haddad Other [facility] Other 07-28-2023 14:00-0500 Body temperature 97.6 [degF] Sonali Haddad Other [facility] Other 07-28-2023 14:00-0500 Body weight 87.09 kg Sonali Haddad Other [facility] Other 07-28-2023 14:00-0500 Diastolic blood pressure 84 mm[Hg] Sonali Haddad Other [facility] Other 07-28-2023 14:00-0500 Respiratory rate 18 /min Sonali Haddad Other [facility] Other 07-28-2023 14:00-0500 SaO2% (BldA) [Mass fraction] 97 % Sonali Haddad Other [facility] Other 07-28-2023 14:00-0500 Systolic blood pressure 114 mm[Hg] Sonali Haddad Other [place] [facility] Other 07-21-2022 14:00-0500 Body height 175.26 cm Kylah Valenzuela Other [facility] Other 07-21-2022 14:00-0500 Body mass index (BMI) [Ratio] 27.32 kg/m2 Kylah [email or web address] Other [facility] Other 07-21-2022 14:00-0500 Body weight 83.92 kg Kylah Valenzuela Other [facility] Other 07-06-2022 08:35-0500 Diastolic blood pressure 80 mm[Hg] MD Idris Jose Work Phone: [facility] 07-06-2022 08:35-0500 Heart rate 63 /min MD Idris Jose Work Phone: [facility] 07-06-2022 08:35-0500 Respiratory rate 16 /min MD Idris Jose Work Phone: [facility] 07-06-2022 08:35-0500 SaO2% (BldA) [Mass fraction] 95 % MD Idris Jose Work Phone: [facility] 07-06-2022 08:35-0500 Systolic blood pressure 159 mm[Hg] MD Idris Jose Work Phone: [facility] 07-06-2022 07:37-0500 Body mass index (BMI) [Ratio] 27.3 kg/m2 MD Idris Jose Work Phone: [facility] 07-06-2022 07:27-0500 Body height 175.26 cm MD Idris Jose Work Phone: [facility] 07-06-2022 07:27-0500 Body weight 83.91 kg MD Idris Jose Work Phone: [facility] 07-06-2022 06:11-0500 Body temperature 97.9 [degF] MD Idris Jose Work Phone: [facility] 03-18-2022 11:20-0400 Body height 175.26 cm Darien Escamilla Other [facility] Other 03-18-2022 11:20-0400 Body mass index (BMI) [Ratio] 27.32 kg/m2 Darien Escamilla Other [facility] Other 03-18-2022 11:20-0400 Body weight 83.92 kg Darien Escamilla Other [facility] Other 05-01-2021 11:40-0400 Body height 175.26 cm Sonali Haddad Other [facility] Other 05-01-2021 11:40-0400 Body mass index (BMI) [Ratio] 28.06 kg/m2 Sonali Catie Other [facility] Other 05-01-2021 11:40-0400 Body temperature 96.4 [degF] Sonali Haddad Other [facility] Other 05-01-2021 11:40-0400 Body weight 86.18 kg Sonali Catie Other [facility] Other 05-01-2021 11:40-0400 Diastolic blood pressure 71 mm[Hg] Sonali Catie Other [facility] Other 05-01-2021 11:40-0400 Respiratory rate 18 /min Sonali Haddad Other [facility] Other 05-01-2021 11:40-0400 SaO2% (BldA) [Mass fraction] 99 % Sonali Haddad Other [facility] Other 05-01-2021 11:40-0400 Systolic blood pressure 161 mm[Hg] Sonali Haddad Other [facility] Other 06-07-2019 22:15-0500 Respiratory rate 12 /min JANETH [facility] Comment on above: Performed By: #### [id number] ####[facility] 06-07-2019 16:49-0500 Respiratory rate 12 /min [facility] Comment on above: Order Comment: R/O Pneumothorax Performed By: #### [id number] ####[address] Encounters Encounter Date Encounter Type Care Provider Facility Start: 03-12-2024 End: 03-12-2024 ambulatory [facility] Start: 12-04-2023 End: 12-04-2023 ambulatory IDRIS JOSE Not Available Start: 10-18-2023 End: 10-18-2023 ambulatory [facility] Start: 09-28-2023 End: 09-28-2023 ambulatory [facility] Start: 09-12-2023 End: 09-12-2023 ambulatory [facility] Start: 08-21-2023 End: 08-21-2023 ambulatory RAHEL HENSLEY Not Available Start: 08-09-2023 [facility] Result Encounter Generic External Data Provider [facility] External Department Unsolicited Start: 08-09-2023 Clinisync Result Encounter Generic External Data Provider [facility] External Department Unsolicited Start: 07-28-2023 End: 07-28-2023 ambulatory Sonali Haddad Other [place] [facility] Other Start: 07-28-2023 Office outpatient visit 15 minutes Sonali Haddad [facility] Start: 05-04-2023 ambulatory AMADOR MEYER [facility] Start: 04-05-2023 End: 04-05-2023 ambulatory EHAB CK [facility] Start: 03-21-2023 End: 03-21-2023 ambulatory ORLANDO TELLEZ [facility] Start: 11-30-2022 ambulatory SHAIKH Iván EDDY Facilit y:H1 Start: 11-17-2022 End: 11-18-2022 ambulatory SHAIKH Iván EDDY Facility:H1 Start: 11-14-2022 End: 11-15-[address] RAJENDRA FRANCO Facility:H1 Start: 08-12-2022 End: 08-13-[address] DOCTOR LADD Facility:H1 Start: 07-21-2022 End: 07-21-2022 ambulatory Kylah Valenzuela Other [facility] Other Start: 07-21-2022 Postop follow up vis it related to original px Kylah Valenzuela [facility] Start: 07-06-2022 End: 07-06-2022 ambulatory Idris Jose Facility:[facility] Start: 07-06-2022 End: 07-06-2022 Admission to same day surgery center MD Idris Jose Work Phone: [facility] [place] Start: 07-06-2022 End: 07-06-2022 ambulatory MD Idris Jose Work Phone: [facility] Work Phone: Start: 06-22-2022 End: 06-22-2022 ambulatory Idris Jose Facility:[facility] Start: 06-22-2022 End: 06-22-2022 ambulatory MD Idris Jose Work Phone: [facility] Work Phone: Start: 06-22-2022 End: 06-22-2022 Patient encounter procedure MD Idris Jose Work Phone: [facility] Start: 06-02-2022 End: 06-02-2022 ambulatory Darien Escamilla Other [facility] Other Start: 06-02-2022 Office outpatient visit 25 minutes Darien Escamilla [facility] Start: 05-12-2022 End: 05-12-[address] EB BETANCOURT . Facility:H1 Start: 04-19-2022 End: 04-20-[address] IDRIS JOSE Facility:H1 Start: 04-02-2022 End: 04-03-[address] IDRIS JOSE Facility:H1 Start: 03-18-2022 End: 03-18-2022 ambulatory Darien Escamilla Other [facility] Other Start: 03-18-2022 Office outpatient visit 15 minutes Darien Escamilla [facility] Start: 02-09-2022 End: 02-10-[address] IDRIS JOSE Facility:H1 Start: 02-02-2022 End: 02-03-[address] ISH STOVER Facility:H1 Start: 01-28-2022 ambulatory Facility:[id number] Start: 01-28-2022 End: 01-28-2022 ambulatory Idris Jose Facility:[facility] Start: 01-12-2022 ambulatory Facility:[id number] Start: 01-12-2022 End: 01-12-2022 ambulatory Idris Jose Facility:[facility] Start: 01-07-2022 End: 01-08-[address] DOCTOR LADD Facility:H1 Start: 12-15-2021 End: 12-16-[address] PAPITO GUAMAN Facility:H1 Start: 12-14-2021 End: 12-15-[address] IDRIS JOSE Facility:H1 Start: 05-01-2021 Office outpatient visit 15 minutes Sonali Haddad [facility] Start: 06-07-2019 End: 06-13-2019 Evaluation and management of inpatient JANETH MASROOR Facility:[facility] Procedures Date Procedure Procedure Detail Performing Clinician Start: 08-09-2023 [facility] CBC WITH PLATEL ET NO DIFFERENTIAL Generic External Data Provider Start: 11-17-[address] RAJENDRA FRANCO Comment on above: Performed By: #### M G, BMP, URIC, ALB, PHOS #### [facility] [address] [address] [address] Terence Love Start: 07-06-2022 Decompression of med yakelin nerve MD Idris Jose Work Phone: Start: 12-14-[address] RAJENDRA FRANCO Comment on above: Performed By: #### M G, BMP, URIC, ALB, PHOS #### [facility] [address] [address] [address] Terence Love Start: 06-12-2019 INSERTION OF PACEMAK ER LEAD INTO R VENTRICLE, PERC APPROACH GILBERTO MANNING Start: 06-11-2019 INSERT PACE. DUAL CH AM IN CHEST SUBCU/FASCIA, OPEN BRYAN CURTIS Start: 06-11-2019 INSERTION OF PACEMAK ER LEAD INTO R VENTRICLE, PERC APPROACH GILBERTO MANNING Start: 06-11-2019 INSERTION OF PACEMAK ER LEAD INTO RIGHT ATRIUM, PERC APPROACH BRYAN CURTIS Start: 06-07-2019 EXTIRPATION OF MATTE R [...] Treatment Date Care Activity Detail Author Start: 03-03-2023 Influenza vaccination Influenza Vacc ine (#1) [facility] Start: 07-06-2022 End: 07-06-2022 [facility] Start: 12-01-2017 Hemoglobin A1c measurement Diabetes: Hemoglobin A1C [facility] Start: 1962 Urine screening for protein Diabetes: Urine Protein Screening [facility] Start: 1953 Glaucoma screening Diabetes: R etinopathy Screening [facility] Start: 1945 Medicare Annual Wellness (AWV) Medicare Annual Wellness (AWV) [facility] Patient referral [facility] Work Phone: Immunizations Immunization Date Immunization Notes Care Provider Fa cility 05-06-2022 COVID-19 mRNA Bivale nt Booster (Moderna) MD Idris Jose Work Phone: [facility] 05-06-2022 influenza virus vaccine, unspecified formulation Generic Provider [facility] 09-02-2020 COVID-19 mRNA-1273 (Moderna) MD Idris Jose Work Phone: [facility] 08-05-2020 COVID-19 mRNA-1273 (Moderna) MD Idris Jose Work Phone: [facility] Payers Date Payer Category Payer Self-pay [id number] 2017 Managed Care HMO (unspecified) AETNA AETNA [id number] 2017-Present [address] [place] [address] HMO [id number] 2008 Medicare MEDICARE MEDICAR E PART B [id number] 2008-Present [address] [address] [place] [address] Medicare [id number] 1959 Medicare [id number] 1959 Private Health Insurance [id number] 1945 Unknown [id number] 2.16.840.1.092387.3.579.2 .647 1945 Unknown [id number] 2.16.840.1.347265.3.579.2 .356 1943 Unknown [id number] 2.16.840.1.464983.3.579.2 .356 1943 Unknown [id number] 2.16.840.1.825663.3.579.2 .593 1943 Unknown [id number] 2.16.840.1.305768.3.579.2 .593 1943 Unknown [id number] 2.16.840.1.026076.3.579.2 .593 1943 Unknown [id number] 2.16.840.1.201999.3.579.2 .593 1943 Unknown [id number] 2.16.840.1.156851.3.579.2 .593 1943 Unknown [id number] 2.16.840.1.701300.3.579.2 .593 1943 Unknown [id number] 2.16.840.1.149724.3.579.2 .593 1943 Unknown [id number] 2.16.840.1.558380.3.579.2 .593 1943 Unknown [id number] 2.16.840.1.405791.3.579.2 .593 1943 Unknown [id number] 2.16.840.1.646196.3.579.2 .593 1943 Unknown [id number] 2.16.840.1.773345.3.579.2 .593 1943 Unknown [id number] 2.16.840.1.924687.3.579.2 .593 1943 Unknown [id number] 2.16.840.1.524018.3.579.2 .1259 1945 Unknown [id number] 2.16.840.1.548409.3.579.2 .1259 Medicare [id number] Private Health Insurance Unknown [employer] Benefit [id number] Unknown [id number] 2.16.840.1.147259.3.579.2 .531 Unknown [id number] 2.16.840.1.261017.3.579.2 .531 Unknown [id number] 2.16.840.1.604966.3.579.2 .531 Unknown [id number] 2.16.840.1.353217.3.579.2 .531 Social History Date Type Detail Facility Unknown if ever smoked [facility] Other Start: 12-22-2022 Sex Assigned At N [facility] Other Start: 06-22-2022 End: 07-06-2022 Tobacco smoking status [facility] Ex-smoker (finding) [facility] Start: 1945 Sex Assigned At Male [facility] Start: 12-22-2022 Tobacco smoking status [facility] Never smoked tobacco [facility] Start: 12-22-2022 Alcohol intake Current drinke r of alcohol (finding) [facility] Start: 12-22-2022 History of Social function [facility] Start: 12-22-2022 Alcohol Comment Caffeine 2-3 c ups per day [facility] Start: 1945 Sex Assigned At Not on file N [facility] Medical Equipment Procedure Code Equipment Code Equipment Origin al Text Equipment Identifier Dates Intervertebral-b yosvany internal spinal fixation system [id number] FDA Start: 04-29-2020 Spinal fixation plate, non-bioabsorbable ()[id number] FDA Start: 04-29-2020 Spinal fixation plate, non-bioabsorbable ()[id number] FDA Start: 05-01-2020 Spinal fixation plate, non-bioabsorbable ()[id number] FDA Start: 04-29-2020 Goals Date Patient Goal Desired Activity /State Clinical Notes 05-01-2021 to 10-18-2023 Note Date & Type Note Facility 10-18-2023 Note [facility] Cardiology Clinic Note Chief Complaint: Patient here for follow up echo performed at [facility] a few weeks ago. Had routine labs in Aug 2023. Says his BP has been very good lately. C/o LE edema. Says his R ankle turns blue. Denies chest pain, SOB, palpitations, and lightheadedness/syncope, and bleeding on Xarelto. HPI: Florencio Bartholomew is a 78 y.o. male With a history of mild to moderate coronary artery disease, prior aortic valve replacement with a bioprosthetic valve here in routine follow-up States that he is more short of breath than he used to be several months ago. Denies chest pain. No orthopnea, no paroxysmal external dyspnea, no lower extremity edema. Cardiology ROS: Review of Systems Constitutional: Positive for malaise/fatigue. Cardiovascular: Positive for leg swelling. Skin: Positive for color change. Musculoskeletal: Positive for muscle weakness and myalgias. Gastrointestinal: Positive for heartburn. Neurological: Positive for [...] He reports that he quit smoking about 64 years ago. His smoking use included cigarettes. [...] on 05/04/2023), Disp: 180 tablet, Rfl: 3 montelukast (Singulair) [...] tablet, Rfl: 3 Last Recorded Vitals BP 142/66 (BP Location: Right arm, Patient Position: Sitting) Pulse 66 Ht 1.753 m (5' 9 ) Wt 86.6 kg (191 lb) SpO2 96% BMI 28.21 kg/m??? Physical Examination: GENERAL: alert and oriented x3, well developed, in no acute distress. HEAD: atraumatic, normocephalic. EYES: JYOTHI, EOMI. NECK: trachea midline, no JVD present, no carotid bruits present. CARDIAC: S1, S2 present. RRR. 2 out of 6 harsh ejection systolic murmur heard best over the aortic area. No radiation. RESPIRATORY: CTAB, no increased effort of breathing, no rales, rhonchi, or wheezing. ABDOMEN: soft, nontender, nondistended. EXTREMITIES: no lower extremity edema, peripheral pulses are 2+ bilaterally. No rash/skin discoloration present. NEURO: strength/sensation equal and symmetric in bilateral upper and lower extremities. PSYCH: appropriate mood, affect, and judgement. INVESTIGATIONS: Echocardiogram-[facility] Name: JASON BARTHOLOMEW Study Date: 09/28/2023 02:28 PM B/P: / HR: Date of : 1945 Location: [facility] Height: 69 in. Age: 78 year(s) Patient Room : Weight: 193 lb. Gender: Male Patient Status: OutPt BSA: 2.03 m2 Indica (more content not included)... [facility] 07-28-2023 Evaluation note Encounter Date Diagnosis Assessment [...] by cat, initial encounter (ICD-10 - W55.01XA) [facility] Other 11-02-2023 NotePatient here today c/o hypotension and lightheadedness. BP before he came today was 78/51. Says he's taking carvedilol 6.25mg bid. Denies chest pain, SOB, and bleeding on warfarin. Review of Systems Gastrointestinal: Positive for heartburn. Neurological: Positive for light-headedness. All other systems reviewed and are negative.[facility] 05-04-2023 NoteCardiology Clinic Note Subjective Jason Bartholomew is [...] EP study LA baseline (more content not included)...[facility] [...] affect, and judgement. In (more content not included)...[facility]01-19-2023 Evaluation note* Encounter Date Diagnosis Assessment Notes Treatment Notes Treatment Clinical Notes Jul, Status post carpal tunnel release (ICD-10 - Z98.890) Mr Bartholomew is doing well. 3 sutures removed. Edcuation completed to continue strenghting hands with exercises given. Patient can be return on as needed basis [facility] Other 12-01-2022 Evaluation note* Encounter Date Diagnosis Assessment Notes [...] and to be off anticoagualtion thaerapy. Jun, terminal carman current use of anticoagulant therapy (ICD-10 - Z79.01) Jun, Primary hypertension (ICD-10 - I10) [facility] Other 09-16-2022 Evaluation note* Encounter Date Diagnosis [...] patient agrees. A referral will be sent [facility] Other 10-30-2021 Evaluation note* Encounter Date Diagnosis [...] unspecified ligament, initial encounter (ICD-10 - S93.401A) [facility] Other Evaluation noteNo assessment information available [facility] Work Phone: Hisuygv general Narrative - Reported* Type Description Date Medical History HTN Medical History DM II Medical History GERD Medical History hyperlipidemia Medical History asthma Surgical History BILATERAL ROTATOR CUFF Surgical History APPENDECTOMY Surgical History neck surgery on vessles Surgical History carpal tunnel release right Surgical History cardiac pacemeker Surgical History broken neck Hospitalization History see above [facility] Other [facility] general Narrative - Reported* Type Description Date Medical History HTN Medical History DM II Medical History GERD Medical History hyperlipidemia Medical History asthma Surgical History BILATERAL ROTATOR CUFF Surgical History APPENDECTOMY Surgical History neck surgery on vessles Surgical History carpal tunnel release right Surgical History cardiac pacemeker Surgical History broken neck Surgical History carpel tunnel L Hospitalization History see above [facility] Other Hispytt general Narrative - Reported* Type Description Date Medical History HTN (hypertension) Medical History Diabetes Medical History Hyperlipidemia Medical History Asthma Surgical History BILATERAL ROTATOR CUFF Surgical History APPENDECTOMY Surgical History neck surgery on vessles Surgical History carpal tunnel release right Surgical History cardiac pacemeker Surgical History broken neck Surgical History carpel tunnel L Hospitalization History see above [facility] Other Hospital Discharge instructions Additional Instructions DISCHARGE [...] appointment to see your physician in two weeks.[facility] Work Phone: Summary Purpose Family History No Family History Records Found Relationship Condition Age at Onset Recorded Date/T sarina brother Heart disease Unknown Cerebrovascular accident (CVA) Unknown Not Specified Heart disease Unknown father Cerebrovascular accident (CVA) Unknown Advance Directives No Advanced Directives Records Found Advance Directive Response Recorded Date/ Time Advance Directives No October 01 11:34am Hospital Course Note MR#: [id number] [facility] Pt. Name: Jason Bartholomew Admitted: 06/07/2019 Discharged: [...] tunnel syndro me, left (G56.02) Referral Organization [facility] Referring Provider First Name Darien Referring Provider Last Name Pina Referring Provider Specialty Neurologica l Surgery Referred Organization [facility] Referred Provider Papito Mortensen Referred Address [id number] [place], [place],[address] Referred Provider Specialty Neurology Referral Priority Routine [...] section and content) DATE CREATED AUTHOR 05/16/2020 [facility] DATE CREATED AUTHOR AUTHOR'S ORGANIZ ATION 04/04/2022 [facility] DATE CREATED AUTHOR AUTHOR'S ORGANIZ ATION 08/06/2022 [facility] DATE CREATED AUTHOR AUTHOR'S ORGANIZ ATION 12/13/2022 [facility] DATE CREATED AUTHOR AUTHOR'S ORGANIZ ATION 12/05/2023 [facility] EPIC DATE CREATED AUTHOR AUTHOR'S ORGANIZ ATION 03/13/2024 [facility] REASON FOR VISIT (unrecogniz ed section and content) RIGHT ANKLE AND KNEE INJURYc /o Hand Numbness new MRIfollow up EMG2 wk po/ ctr [id number] BITE Care Teams (unrecognized sec tion and content) Team Status: Inactive Member Role Status Dates Idris Jose MD Primary Care Provider Active Darien Escamilla MD Attending Provider Active Team Status: Active Member Role Status Dates Idris Jose MD Primary Care Provider Active 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 [facility] [employer] [facility]. provides no warranty or guarantee of the accuracy or completeness of information in this document.
[2024-03-23 12:44] LABS: Basophils Percent Auto 0.3 % (0.2-2.0); Eosinophils Absolute Auto 0.1 10^3/uL (0.0-0.7); Eosinophils Percent Auto 0.6 % (0.9-7.0); Hematocrit 28.9 % (42.0-54.0); Hemoglobin 8.9 g/dL (14.0-18.0); Immature Granulocytes Abs Auto 0.03 10^3/uL (0.00-0.03); Immature Granulocytes Pct Auto 0.3 % (0.0-0.5); Lymphocytes Absolute Auto 0.8 10^3/uL (1.2-3.8); Lymphocytes Percent Auto 9.2 % (20.5-60.0); Mean Corpuscular HGB Conc 30.8 g/dL (29.9-35.2); Mean Corpuscular Hemoglobin 25.9 pg (25.9-34.0); Mean Corpuscular Volume 84.3 fL (80.0-94.0); Mean Platelet Volume 10.3 fL (9.5-13.5); Monocytes Absolute Auto 0.6 10^3/uL (0.3-0.8); Monocytes Percent Auto 6.9 % (1.7-12.0); Neutrophils Absolute Auto 7.1 10^3/uL (1.4-6.5); Neutrophils Percent Auto 82.7 % (43.0-75.0); Platelet Count 256 10^3/uL (150-450); Red Blood Count 3.43 10^6/uL (4.70-6.10); Red Cell Distribution Width 19.2 % (11.0-15.0); White Blood Count 8.7 10^3/uL (4.0-11.0)
[2024-03-23] MEDS: ADACEL DIPH,PERTUSS(ACELL),TET VAC/PF 0.5 ML ADULT SYRINGE IM (12:50)
[2024-03-23 12:55] LABS: Anion Gap 11.2; BUN Creatinine Ratio 15.2; Calcium 8.8 mg/dL (8.5-10.1); Carbon Dioxide 30.5 mmol/L (21.0-32.0); Chloride 98 mmol/L (98-107); Estimated GFR (African America 41 (>=60); Estimated GFR (Non-African Ame 34 (>=60); Glucose 271 mg/dL (74-106); Potassium 3.7 mmol/L (3.5-5.1); Sodium 136 mmol/L (136-145)
[2024-03-23] MEDS: CEFAZOLIN SODIUM/DEXTROSE,ISO 1 GM/50 ML PREMIX IV (13:22)
== END 2024-03-23 14:22 | disposition home or self-care (01) ==
PROVIDERS: Emergency Provider Emergency Medicine; PCP Family Medicine
DX: L03.115 Cellulitis of right lower limb (principal); Z87.891 Personal history of nicotine dependence; Z23 Encounter for immunization
CPT/HCPCS: 36415; 73590; 80048; 85025; 90471; 90715; 96365; 99285; J0690

== ENCOUNTER 2024-04-24 13:55 | Outpatient (OUT) | payer MEDICARE, OTHER, SELFPAY ==
--- NOTE | 2024-04-24 14:00 | CA_ITS ---
Patient Name: JASON DEAN MR#: [id number] : 1945 Exam Date: 04/24/2024 Ordering Doctor: DR ISH STOVER M.D. ECHOCARDIOGRAM REPORT PROCEDURE: CA ECHO DOPPLER COMPLETE INDICATIONS: Aortic valve stenosis - aortic valve replacement, pacemaker, hypertension, diabetes COMPARISON: None. DESCRIPTION: COMPLETE ECHOCARDIOGRAM Real-time transthoracic echocardiography with 2D, M-mode, spectral and color flow Doppler performed. QUALITY: Technical quality was good. LEFT VENTRICLE: Normal chamber size. Normal left ventricular wall thickness. Normal systolic function. LV EF: Normal left ventricular ejection fraction, (55-60%). DIASTOLIC: Grade II diastolic dysfunction. ATRIAL SEPTUM: Visually appears intact. LEFT ATRIUM: Mild dilatation. RIGHT ATRIUM: Moderate dilatation. RIGHT VENTRICLE: Mild chamber dilatation. Normal right ventricular systolic function. Pacer wire present. TRICUSPID VALVE: Normal mobility and thickness. No stenosis with mild regurgitation. Doppler studies reveal moderately (45-60) elevated right sided pressures. RVSP 55 mmHg MITRAL VALVE: Normal mobility and thickness. Mild mitral regurgitation. AORTIC VALVE: Bio-Prosthetic valve appears well seated in the aortic position with abnormal doppler flow. Mean gradient 12 mmHg. DVI 0.3. No aortic regurgitation. AORTIC ROOT: Normal diameter and appearance. PULMONIC VALVE: Normal thickness and mobility. No stenosis. Trivial regurgitation. PERICARDIUM: No evidence of pericardial effusion. IVC: IVC is dilated (2.3 cm) with no collapse. PLEURA: CONCLUSION: 1. Normal left ventricular size and systolic function. LVEF is 55-60%. 2. Mildly dilated right ventricle with normal systolic function. 3. Grade II diastolic dysfunction. 4. Bioprosthetic aortic valve with normal Doppler flows and no regurgitation. 5. Mild mitral and tricuspid regurgitation. 6. Moderately elevated right sided pressures. RVSP is 55 mmHg. Adult Echocardiography Procedure Report Left Ventricle LVEDD (3.7 - 5.6 cm): 4.13 cm LVESD (2.2 - 4.0 cm): 2.96 cm LVIVS thickness (0.6 - 1.2 cm): 0.95 cm LVPW thickness (0.5 - 1.0 cm): 0.80 cm e': 0.07 m/s E - e': 12.19 LVOT Max Gradient: 2.44 mm[Hg] LVOT Area (cm2): 0.78 m/s Peak Velocity (LVOT): 0.78 m/s Mean Velocity (LVOT): 0.53 m/s LVOT Diameter 1.80 cm Left Atrium LA Volume Index (2D A2C): 32.63 ml/m2 Left Atrium Systolic Dimension: 4.08 cm Mitral Valve MV E to A Ratio: 0.92 Mitral Valve A-Wave Peak Velocity: 0.94 m/s Mitral Valve E-Wave Peak Velocity: 0.86 m/s Right Ventricle Aorta AO Root Diam: 2.93 cm Aortic Valve AoV Area (Peak Jerardo): 0.79 cm2, 0.79 cm2 AoV Area (VTI): 0.96 cm2, 0.96 cm2 Peak Velocity(Antegrade Flow): 2.51 m/s Peak Gradient(Antegrade Flow): 25.22 mm[Hg] Mean Velocity(Antegrade Flow): 1.59 m/s Mean Gradient(Antegrade Flow): 12.25 mm[Hg] Velocity Time Integral: 58.22 cm Tricuspid Valve Peak Velocity (Regurgitant Flow): 2.62 m/s, 3.17 m/s Pulmonic Valve Mean Gradient: 3.83 mm[Hg] Mean Velocity: 0.91 m/s Peak Velocity: 1.36 m/s, 1.32 m/s Peak Gradient: 7.01 mm[Hg], 7.35 mm[Hg] Right Atrium Right Atrium Systolic Pressure: 63.28 ml, 63.28 ml Dictated by: Dedrick Boyd M.D. on 04/24/2024 at 19:05 Approved by: Dedrick Boyd M.D. on 04/24/2024 at 19:15
== END 2024-04-24 13:56 | disposition home or self-care (01) ==
LOC: CARD 13:55
PROVIDERS: PCP Family Medicine; Visit Provider Internal Medicine Interventional Cardiology
DX: I35.0 Nonrheumatic aortic (valve) stenosis (principal)
CPT/HCPCS: 93306

== ENCOUNTER 2024-05-01 12:10 | Outpatient (OUT) | payer MEDICARE, OTHER, SELFPAY ==
--- OUTSIDE RECORDS SUMMARY | 2024-05-01 12:33 | XMS_ITS | CCD ---
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 Name Role Phone MASROOR, JANETH Admitting Unavailable JAKEOR, JANETH Attending Unavailable IDRIS JOSE Primary Care Unavailable IDRIS JOSE Referring Unavailable MASROOR, JANETH Surgeon Unavailable ND Procedure Practitioner Unavailab MINE Stafford Surgeon Unavailable ND Procedure Practitioner Unavailab GILBERTO Peña Surgeon Unavailable ND Procedure Practitioner Unavailab BRYAN Nelson AM Surgeon Unavailable ND Procedure Practitioner Unavailab Sonali Fowler Unavailable Darien Escamilla Unavailable MD Idris Jose Primary Care Provider [phone] MD Darien Escamilla Attending Provider [phone] Idris Jose Primary Care Unavailable Idris Jose Admitting Unavailable Idris Jose Attending Unavailable Idris Jose Primary Care Unavailable Idris Jose Admitting Unavailable Idris Jose Attending Unavailable Idris Jose Primary Care Unavailable Darien Escamilla Attending Unavailable Darien Escamilla Admitting Unavailable Idris Jose Primary Care Unavailable Darien Escamilla Attending Unavailable Darien Escamilla Admitting Unavailable Kylah Valenzuela Unavailable TIFTONDR RAJENDRA V Consulting Unavailable APLINGRAHEL Admitting Unavailable APLINGRAHEL Attending Unavailable ZACHEREJose Daniel, DR IDRIS Valdivia Primary Care Unavailable RAHEL HENSLEY Consulting Unavailable MISC, DR HAMPTON Admitting Unavailable MISC, DR HAMPTON Attending Unavailable MISC, DR HAMPTON Consulting Unavailable NADERER, DR IDRIS Valdivia Primary Care Unavailable NADERER, DR IDRIS Valdivia Primary Care Unavailable ORLANDO TELLEZ Consulting Unavailable ORLANDO TELLEZ Admitting Unavailable ORLANDO TELLEZ Attending Unavailable SHAIKH Iván EDDY Consulting Unavailable FAWWAD, ALLRED H Primary Care Unavailable FAWWAD, ALLRED H Admitting Unavailable FAWWAD, ALLRED H Attending Unavailable NADERER, DR IDRIS Valdivia Primary Care Unavailable ROSALINDA, ORLANDO Admitting Unavailable WEST, DR RAJENDRA Ramírez Consulting Unavailable ROSALINDA, ORLANDO Attending Unavailable ROSALINDA, ORLANDO Consulting Unavailable NADERER, DR IDRIS Valdivia Primary [...] H Consulting Unavailable NEFCY, PETER Consulting Unavailable NadIdris admae MD Primary Care Provider RAHEL HENSLEY Attending Unavailable NADERER, IDRIS Attending Unavailable NADERER, IDRIS Attending Unavailable NADEREJose Daniel, IDRIS Attending Unavailable Idris Jose MD Primary Care Provider Idris Jose MD Primary Care Provider [phone] LION LLOYD Attending Unavailable IDRIS JOSE Referring Unavailable NADEREJose Daniel, IDRIS Primary Care Unavailable LEXI GOLDMAN Attending Unavailable NADEREIRDIS Sky Referring Unavailable NADERER, IDRIS Primary Care Unavailable ISH STOVER Referring Unavailable ISH STOVER Attending Unavailable ORLANDO TELLEZ Referring Unavailable ISH STOVER Attending Unavailable ORLANDO TELLEZ Referring Unavailable AMADOR MEYER Attending Unavailable Allergies Allergy Classification Reported Allergen(s) Allergy Type Date of Onset Reaction(s) Facility (6 sources) Sulfonamides (Antibiotic); Translations: [SULFA (SULFONAMIDE ANTIBIOTICS)] Drug allergy (disorder) 10-05-19 17 Rash [facility] Repository (5 sources) Sulfonamides (Antibiotic) Propensity to adverse reactions (Ishaan) 07/31/2013 Skin Rash Skin Rash [facility] Other (1 source) Sulfonamides (Antibiotic) Drug allergy (disorder) 07-06-19 23 [facility] Repository (6 sources) Sulfonamides (Antibiotic) Drug Allergy 10-05-19 17 Swelling, Unknown [facility] Medications Current Medications Medication Drug Class(es) Dates [...] mg / clavulanate 125 mg oral tablet (3 sources) Penicillin-class Antibacterial Start: 04-10-2024 End: 04-24-2024 take 1 tablet by mouth in the morning amoxicillin-clavulanate (Augmentin) 875-125 MG tablet Indications: Cellulitis of right lower leg Take 1 tablet (875 mg) by mouth in the morning and 1 tablet (875 mg) before bedtime. Do all this for 14 days. 28 tablet 04/10/2024 04/24/2024 Active Start: 07-31-2023 take 1 tablet by dominic th every twelve hours Amoxicillin-Pot Clavulanate 875-125 MG 1 tablet Orally every 12 hrs for 10 day(s) Jul, Active aspirin 81 mg delayed release oral tablet (15 sources) Platelet Aggregation Inhibitor, Nonsteroidal Anti-inflammatory Drug Start: 04-24-2020 End: 06-02-2020 take 81 mg by mouth once daily Aspirin Active 81 MG PO Daily June 02, 2020 12:00am take 1 tablet by dominic th every twenty-four hours Aspirin 81 MG 1 tablet Orally Once a day Active atorvastatin 40 mg oral tablet (15 sources) HMG-CoA Reductase Inhibitor Start: 01-08-2024 atorvastatin (Lipito r) 40 MG tablet Indications: Dyslipidemia (CMS/HCC) TAKE 1 TABLET DAILY 90 tablet 3 01/08/2024 Active Start: 09-26-2018 End: 06-02-2020 take 40 mg by mouth once daily in the evening Atorvastatin Active 40 MG PO Every evening June 02, 2020 12:00am azelastine hydrochloride 0.137 mg/actuat metered dose nasal spray (2 sources) Histamine-1 Receptor Antagonist Start: 06-02-2020 Azelastine Active 1 SPRAY NARES-BOTH Daily at bedtime 11 29June 02, 2020 12:00am Azelastine & Fluticasone 137 & 50 MCG/ACT therapy (3 sources) Start: 10-23-2023 take 2 spray(s) nasal route in the morning Azelastine & Fluticasone 137 & 50 MCG/ACT therapy Indications: Seasonal allergic rhinitis due to pollen Administer 2 sprays into affected nostril(s) in the morning and at noon 3 each 3 10/23/2023 Active azelastine hydrochloride 0.137 mg/actuat / fluticasone propionate 0.05 mg/actuat metered dose nasal spray (5 sources) Corticosteroid, Histamine-1 Receptor Antagonist Start: 11-01-2022 take 2 spray(s) nasal route twice daily azelastine-flutic asone (DYMISTA) 137-50 mcg/spray spray,non-aerosol Indications: Chronic rhinitis USE 2 SPRAYS IN EACH NOSTRIL TWICE DAILY 69 g 11/01/2022 Active Start: 09-26-2018 End: 06-02-2020 Azelastine-Fluticasone Disco ntinued 1 SPRAY INTRANASAL Bedtime September 25, 2018 11:00pm June 02, 2020 1:26pm carvedilol 6.25 mg oral tablet (17 sources) alpha-Adrenergic Robert, beta-Adrenergic Robert Start: 08-09-2023 carvedilol (Core g) 6.25 MG tablet 08/09/2023 Active Start: 06-22-2022 take 12.5 mg by mout h twice daily at mealtime Carvedilol Active 12.5 MG PO Twice daily with meals June 22, 2022 10:34am Start: 04-24-2020 End: 06-22-2022 take 25 mg by mouth twice daily at mealtime Carvedilol Discontinued 25 MG PO Twice daily with meals 60 June 02, 2020 12:00am June 22, 2022 10:34am take 1 tablet by dominic th in the morning, then take 1 tablet by mouth at bedtime carvediloL (COREG) 12.5 mg tablet Take 1 tablet (12.5 mg total) by mouth in the morning and 1 tablet (12.5 mg total) before bedtime. Active cephalexin 500 mg oral capsule (1 source) Cephalosporin Antibacterial Start: 07-06-2022 take 500 mg by mouth three times daily Cephalexin Active 500 MG PO Three times daily July 06, 2022 12:00am furosemide 20 mg oral tablet (3 sources) Loop Diuretic take 1 tablet by mouth once daily as needed furosemide (Lasix) 20 MG tablet TAKE 1 TABLET BY MOUTH DAILY NEEDED (take for the next 2-3 days, may take NEEDED for leg swelling and SHORTNESS OF BREATH) Active gabapentin 600 mg oral tablet (11 sources) Anti-epileptic Agent Start: 08-13-2021 take 1 tablet by mouth three times daily gabapentin (NEURONTIN) 600 mg tablet Take 1 tablet (600 mg total) by mouth 3 (three) times a day. 08/13/2021 Active Start: 04-24-2020 End: 06-02-2020 take 600 mg by mouth three times daily Gabapentin Active 600 MG PO Three times daily June 02, 2020 12:00am glimepiride 2 mg oral tablet (15 sources) Sulfonylurea Start: 12-27-2023 take 1 tablet by mouth in the morning glimepiride (Amaryl) 2 MG tablet Indications: Type 2 diabetes mellitus with hyperglycemia, with long-term current use of insulin ([facility]) Take 1 tablet (2 mg) by mouth in the morning and 1 tablet (2 mg) before bedtime. 180 tablet 3 12/27/2023 Active Start: 09-26-2018 End: 06-02-2020 take 2 mg by mouth once daily at breakfast Glimepiride Active 2 MG PO Daily with breakfast June 02, 2020 12:00am hydrALAZINE hydrochloride 25 mg oral tablet (3 sources) Arteriolar Vasodilator Start: 11-23-2023 hydrALAZINE (Apresoline) 25 MG tablet 11/23/2023 Active montelukast 10 mg oral tablet (17 sources) Leukotriene Receptor Antagonist Start: 07-25-2022 take 1 tablet by mouth in the morning montelukast (SINGULAIR) 10 mg tablet Indications: Chronic rhinitis Take 1 tablet (10 mg total) by mouth in the morning. 90 tablet 2 07/25/2022 Active Start: 09-26-2018 End: 06-22-2022 take 10 mg by mouth once daily Montelukast Discontinue d 10 MG PO Daily June 02, 2020 12:00am June 22, 2022 10:34am omeprazole 20 mg delayed release oral capsule (14 sources) Proton Pump Inhibitor Start: 06-02-2020 take 20 mg by mouth twice daily Omeprazole Active 20 MG PO Twice daily June 02, 2020 12:00am Start: 05-07-2020 End: [...] MG PO Q6H 30 July 06, 2022 pantoprazole 40 mg delayed release oral tablet (7 sources) Proton Pump Inhibitor Start: 09-12-2023 take 1 tablet by mouth twice daily pantoprazole (ProtoNix) 40 MG EC tablet Indications: Gastroesophageal reflux disease, unspecified whether esophagitis present Take 1 tablet twice a day by oral route for 90 days. 180 tablet 3 09/12/2023 Active Start: 06-22-2022 End: 07-06-2022 take 40 mg by mouth once daily Pantoprazole Discontinu ed 40 MG PO Daily June 22, 2022 12:00am July 06, 2022 6:17am Start: 09-26-2018 End: 04-24-2020 take 1 tablet by mouth twice daily Pantoprazole Discontinued 1 TAB PO Twice daily September 25, 2018 11:00pm April 24, 2020 2:18pm pioglitazone 30 mg oral tablet (6 sources) Peroxisome Proliferator Receptor alpha Agonist, Peroxisome Proliferator Receptor gamma Agonist, Thiazolidinedione Start: 01-08-2024 pioglitazone (Actos) 30 MG tablet Indications: Type 2 diabetes mellitus with hyperglycemia (CMS/HCC) TAKE 1 TABLET DAILY 90 tablet 3 01/08/2024 Active Start: 06-19-2023 take 1 tablet by dominic th once daily pioglitazone (Actos) 30 MG tablet Indications: Type 2 diabetes mellitus with hyperglycemia (CMS/HCC) TAKE 1 TABLET BY MOUTH DAILY 90 tablet 3 06/19/2023 Active Start: 06-22-2022 take 30 mg by mouth once daily in the morning Pioglitazone Active 30 MG PO Every morning June 22, 2022 12:00am rivaroxaban 20 mg oral tablet (12 sources) Factor Xa Inhibitor Start: 04-03-2023 Xarelto 20 MG tablet TAKE 1 TABLET WITH EVENING MEAL, TAKE WITH FOOD 04/03/2023 Active Start: 05-25-2020 End: 06-22-2022 take 1 tablet by mouth once daily in the morning Rivaroxaban (Xarelto) 20 mg tablet Active 20 MG PO Every morning June 22, 2022 10:34am Start: 05-25-2020 End: 06-22-2022 take 1 tablet by mouth twice daily Rivaroxaban (Xarelto) 15 mg Tablet Discontinued 15 MG PO Twice daily 21 04May 25, 2020 12:00am June 22, 2022 10:25am rOPINIRole 0.25 mg oral tablet (19 sources) Nonergot Dopamine Agonist Start: 01-03-2024 End: 01-02-2025 take 1 tablet by mouth at bedtime rOPINIRole (Requip) 0.25 MG tablet Indications: Restless legs Take 1 tablet (0.25 mg) by mouth at bedtime 90 tablet 3 01/03/2024 01/02/2025 Active Start: 09-26-2018 End: 06-22-2022 take 0.25 mg by mouth once daily Ropinirole Discontinued 0.25 MG PO Daily June 22, 2022 12:00am June 22, 2022 10:36am tamsulosin hydrochloride 0.4 mg oral capsule (15 sources) alpha-Adrenergic Robert Start: 08-17-2021 take 1 capsule by mouth in the morning tamsulosin (FLOMAX) 0.4 mg capsule Take 1 capsule (0.4 mg total) by mouth in the morning. 08/17/2021 Active Start: 09-26-2018 End: 06-02-2020 take 0.4 mg [...] 07, 2020 12:00am June 02, 2020 1:26pm Balsam [place] Oil (Venelex) Ointment (2 sources) Start: 06-02-20 End: 06-22-20 Balsam [place] Oil (Venelex) Ointment Discontinued 1 APPLIC TOPICAL [...] 25, 2018 11:00pm April 24, 2020 2:17pm sodium hypochlorite 1.25 mg/ml topical solution (4 sources) Start: 04-26-20 End: 04-26-20 1 Application, topical, Once, On Mon04/26/24 at 1430, For 1 dose Start: 04-19-2024 sodium hypochl orite (DAKIN'S SOLUTION) 0.25 % external solution Indications: Hematoma of right lower leg Apply onto gauze and apply to leg ulcer two times daily. 473 mL 1 04/19/2024 Active 3 ml insulin aspart, human 100 unt/ml pen injector (2 sources) Insulin Analog Start: 05-07-2020 End: 06-02-2020 Insulin Aspart U-100 (Novolog Flexpen U-100 Insulin) 100 unit/mL (3 mL) Insulin Pen Discontinued 0 UNITS SUBCUT 3X/Day with meals and bedtime May 07, 2020 12:00am June 02, 2020 1:26pm 3 ml insulin detemir 100 unt/ml pen injector (4 sources) Insulin Analog Start: 05-07-2020 End: 06-22-2022 Insulin Detemir U-100 (Levemir Flextouch U-100 Insuln) 100 unit/mL (3 mL) Insulin Pen Discontinued 12 UNITS SUBCUT Daily 10 30June 02, 2020 12:00am June 22, 2022 10:23am lidocaine 25 mg/ml / prilocaine 25 mg/ml topical cream (1 source) Antiarrhythmic, Amide Local Anesthetic Start: 04-26-2024 End: 04-26-2024 1 Application, topical, Once, On Mon04/26/24 at 1415, For 1 dose, If no allergy, apply topically to wounds with each wound care appointment with practitioner for pain control. Start: 04-26-2024 End: 04-26-2024 1 Application, topical, Once , On Mon04/26/24 at 1415, For 1 dose, If no allergy, apply topically to wounds with each wound care appointment with practitioner for pain control. lisinopril 40 mg oral tablet (5 sources) Angiotensin Converting Enzyme Inhibitor Start: 09-26-2018 End: 04-24-2020 take 1 tablet by mouth once daily Lisinopril Discontinued 1 TAB PO Daily September 25, 2018 11:00pm April 24, 2020 2:17pm lisinopril 40 MG tablet Oral for 90 Active suprep bowel prep kit 17.5-3.13-1.6 gm/177ml solution (5 sources) Start: 09-21-2018 Suprep Bowel P rep Kit [...] SUPREP NOT COVERED BY INS Aug, Active mupirocin 0.02 mg/mg topical ointment (2 sources) [...] 25, 2018 11:00pm April 24, 2020 2:18pm torsemide 5 mg oral tablet (5 sources) Loop Diuretic Start: 09-26-2018 End: 04-24-2020 take 1 tablet by mouth once daily Torsemide Discontinued 1 TAB PO Daily September 25, 2018 11:00pm April 24, 2020 2:18pm Problems Active Problems Problem Classification Problem Date Documented Date Episodic/Chronic Abdominal pain (5 sources) Left upper quadrant pain; Translations: [Left upper quadrant pain] Episodic Administrative/social admission (2 sources) Other reduced mobility; Translations: [Impaired mobility and activities of daily living] 05-08-2020 Episodic Anxiety disorders (5 sources) Anxiety; Translations: [Anxiety disorder, unspecified] Onset: 10-18-2023 05-09-2020 Chronic Cancer of prostate (3 sources) Carcinoma of prostate; Translations: [Malignant neoplasm of prostate] Onset: 05-17-2019 04-19-2024 Chronic Cancer of prostate (1 source) Personal history of malignant neoplasm of prostate; Translations: [PERSONAL HX MALIG NEOPLASM PROSTATE] Onset: 11-22-2022 Episodic Cardiac dysrhythmias (10 sources) Paroxysmal atrial fibrillation; Translations: [Paroxysmal atrial fibrillation] Onset: 03-22-2022 Chronic Chronic kidney disease (10 sources) Chronic kidney disease, unspecified; Translations: [Chronic kidney disease stage 3B ] Onset: 05-17-2019 12-04-2023 Chronic Chronic kidney disease (6 sources) Chronic kidney disease; Translations: [CHRONIC KIDNEY DISEASE STAGE 3B] Onset: 03-09-2022 Chronic ulcer of skin (7 sources) Ulcer of lower extremity; Translations: [Non-pressure chronic ulcer of unspecified part of right lower leg with fat layer exposed] Onset: 04-19-2024 04-19-2024 Chronic Conduction disorders (10 sources) Unspecified right bundle-branch block; Translations: [Presence of cardiac pacemaker] Onset: 12-20-2021 11-03-2023 Chronic Congestive heart failure; nonhypertensive (13 sources) Acute on chronic diastolic (congestive) heart failure; Translations: [Chronic heart failure co-occurrent with normal ejection fraction] Onset: 11-17-2022 Chronic Coronary atherosclerosis and other heart disease (4 sources) Unstable angina; Translations: [Atherosclerotic heart disease of [place] coronary artery without angina pectoris] Onset: 10-18-2023 Chronic Diabetes mellitus with complications (17 sources) Type 2 diabetes mellitus with diabetic chronic kidney disease; Translations: [Type 2 diabetes mellitus with hyperglycemia] Onset: 12-14-2021 Chronic Diabetes mellitus without complication (1 source) Type 2 diabetes mellitus without complications; Translations: [TYPE 2 DM WITHOUT COMPLICATIONS] Onset: 12-20-2021 Chronic Diseases of white blood cells (5 sources) Leukocytosis; Translations: [Elevated white blood cell count, unspecified] Onset: 10-18-2023 05-08-2020 Chronic Disorders of lipid metabolism (7 sources) Hyperlipidemia, unspecified; Translations: [Dyslipidemia] Onset: 12-16-2021 11-03-2023 Chronic E Codes: Natural/environment (1 source) Bitten by cat, initial encounter Episodic Esophageal disorders (11 sources) Gastroesophageal reflux disease; Translations: [Gastro-esophageal reflux disease without esophagitis] Onset: 11-03-2023 11-03-2023 Chronic Essential hypertension (13 sources) Essential hypertension; Translations: [Essential (primary) hypertension] Onset: 05-17-2019 Chronic Heart valve disorders (15 sources) Presence of prosthetic heart valve; Translations: [Nonrheumatic aortic (valve) stenosis] Onset: 12-18-2020 Chronic Hyperplasia of prostate (6 sources) Benign prostatic hypertrophy without outflow obstruction; Translations: [Benign prostatic hyperplasia without lower urinary tract symptoms] Onset: 11-03-2023 11-03-2023 Chronic Hypertension with complications and secondary hypertension (3 sources) Hypertensive chronic kidney disease with stage 1 through stage 4 chronic kidney disease, or unspecified chronic kidney disease; Translations: [Hypertensive heart disease with heart failure] Onset: 05-16-2022 Chronic Occlusion or stenosis of precerebral arteries (3 sources) Carotid atherosclerosis; Translations: [Occlusion and stenosis of unspecified carotid artery] Onset: 05-17-2019 04-19-2024 Chronic Open wounds of extremities (5 sources) Injury of right leg; Translations: [Unspecified open wound, right lower leg, subsequent encounter] Onset: 04-10-2024 04-10-2024 Episodic Osteoarthritis (3 sources) Arthritis of right knee; Translations: [Unilateral primary osteoarthritis, right knee] Onset: 06-08-2022 04-19-2024 Chronic Other aftercare (3 sources) Long-term current use of anticoagulant; Translations: [terminal gauger (current) use of anticoagulants] Episodic Other circulatory disease (2 sources) Orthostatic hypotension; Translations: [Orthostatic hypotension] 05-22-2020 Episodic Other hereditary and degenerative nervous system conditions (2 sources) Restless legs; Translations: [Restless legs syndrome] 05-19-2020 Chronic Other nervous system disorders (10 sources) Cervical myelopathy; Translations: [Disease of spinal cord, unspecified] Onset: 10-18-2023 04-30-2020 Chronic Other nervous system disorders (6 sources) Carpal tunnel syndrome; Translations: [Carpal tunnel syndrome, bilateral upper limbs] 07-06-2022 Chronic Other nervous system disorders (7 sources) Carpal tunnel syndrome of left wrist; Translations: [Carpal tunnel syndrome, left upper limb] Onset: 10-18-2023 04-19-2024 Chronic Other nervous system disorders (1 source) Disease of spinal cord, unspecified Onset: 03-18-2022 Resolved: 03-18-2022 Chronic Other nervous system disorders (2 sources) Carpal tunnel syndrome, left upper limb Onset: 03-18-2022 Resolved: 03-18-2022 Chronic Other nervous system disorders (2 sources) Postoperative pain ; Translations: [Other acute postprocedural pain] 05-08-2020 Episodic Other nervous system disorders (2 sources) Abnormal gait; Translations: [Unspecified abnormalities of gait and mobility] 05-08-2020 Episodic Other upper respiratory disease (3 sources) Chronic rhinitis; Translations: [Chronic rhinitis] Onset: 07-25-2022 07-25-2022 Chronic Paralysis (5 sources) Tetraplegia; Translations: [Quadriplegia, C5-C7 incomplete] Onset: 10-18-2023 05-08-2020 Chronic Peripheral and visceral atherosclerosis (6 sources) Peripheral vascular disease; Translations: [Peripheral vascular disease, unspecified] Onset: 11-03-2023 11-03-2023 Chronic Residual codes; unclassified (2 sources) Difficulty sleeping ; Translations: [Sleep deprivation] 05-19-2020 Episodic Residual codes; unclassified (1 source) Other specified postprocedural states Episodic Skin and subcutaneous tissue infections (8 sources) Cellulitis of lower leg; Translations: [Cellulitis of right lower limb] Onset: 03-28-2024 03-28-2024 Episodic Spondylosis; intervertebral disc disorders; other back problems (5 sources) Prolapsed cervical intervertebral disc; Translations: [Other cervical disc displacement, high cervical region] Chronic Superficial injury; contusion (3 sources) Hematoma of right lower leg; Translations: [Contusion of right lower leg, initial encounter] Onset: 04-26-2024 04-19-2024 Episodic Unclassified (1 source) Carpal tunnel syndrome, left upper limb; Translations: [Carpal tunnel syndrome, left upper limb] Onset: 07-06-2022 Unclassified (1 source) Encounter for preprocedural laboratory examination; Translations: [Encounter for preprocedural laboratory examination] Onset: 06-22-2022 Unclassified (1 source) Encounter for checking and testing of cardiac pacemaker pulse generator [battery]; Translations: [Encounter for checking and testing of cardiac pacemaker pulse generator [battery]] Onset: 01-12-2022 Unclassified (3 sources) LOW BACK PAIN, UNSPECIFIED; Translations: [LOW BACK PAIN, UNSPECIFIED] Onset: 11-18-2022 Unclassified (4 sources) CONTACT W/AND (SUSP) EXPOS COVID-19; Translations: [CONTACT W/AND (SUSP) EXPOS COVID-19] Onset: 12-20-2021 Unclassified (1 source) Wound Check Onset: 04-19-2024 Past or Other Problems Problem Classification Problem Date Documented Da te Episodic/Chronic Complications of surgical procedures or medical care (4 sources) Postprocedural hemorrhage of skin and subcutaneous tissue following a dermatologic procedure; Translations: [POSTP H SKIN AND SC TISS FLW DERM PCR] Onset: 05-12-2022 Episodic Mood disorders (3 sources) Recurrent major depressive episodes, mild ; Translations: [Major depressive disorder, recurrent, mild] Onset: 11-03-2023 Resolved: 12-04-2023 12-04-2023 Chronic Open wounds of extremities (4 sources) Open bite of left hand, initial encounter; Translations: [Laceration of lower leg without foreign body] Onset: 06-08-2022 Episodic Other aftercare (2 sources) care home (current) use of anticoagulants; Translations: [AUTOMOBILE INSURANCE CLAIM EXAMINER CURRNT USE ANTICOAGULANTS] Onset: 05-16-2022 Episodic Other aftercare (1 source) Other terminal gauger (current) drug therapy; Translations: [OTH [facility] CURRENT DRUG THERAPY] Onset: 05-16-2022 Episodic Other aftercare (1 source) terminal gauger (current) use of aspirin; Translations: [AUTOMOBILE INSURANCE CLAIM EXAMINER CURRENT USE OF ASPIRIN] Onset: 05-16-2022 Episodic Other aftercare (3 sources) Long-term current use of drug therapy; Translations: [Other shelter (current) drug therapy] Onset: 12-04-2023 12-04-2023 Episodic Other and unspecified benign neoplasm (5 sources) History of polyp of colon; Translations: [Personal history of colonic polyps] Onset: 10-18-2023 10-02-2018 Episodic Other connective tissue disease (1 source) Arthrodesis status Onset: 03-18-2022 Resolved: 03-18-2022 Episodic Other connective tissue disease (3 sources) Facial weakness; Translations: [FACIAL WEAKNESS] Onset: 12-15-2021 Episodic Other gastrointestinal disorders (5 sources) Dysphagia; Translations: [Dysphagia, unspecified] Onset: 10-18-2023 05-11-2020 Episodic Other lower respiratory disease (1 source) Other nonspecific abnormal finding of lung field; Translations: [OTH NONSPECIFIC ABN FIND LNG FIELD] Onset: 04-06-2022 Episodic Other lower respiratory disease (2 sources) Other forms of dyspnea; Translations: [Other forms of dyspnea] Onset: 10-18-2023 Episodic Other male genital disorders (6 sources) Hemospermia; Translations: [Hematospermia] Onset: 02-14-2023 11-03-2023 Episodic Other nervous system disorders (1 source) Cedeño's palsy; 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] Onset: 12-20-2021 Episodic Other nervous system disorders (6 sources) Cedeño's palsy; 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] Onset: 11-03-2023 11-03-2023 Episodic Other non-traumatic joint disorders (1 source) [...] SCREEN MALIG NEOPLASM PROSTATE] Onset: 12-16-2021 Episodic Phlebitis; thrombophlebitis and thromboembolism (6 sources) Bilateral deep vein thrombosis of lower extremities; Translations: [Acute embolism and thrombosis of unspecified deep veins of lower extremity, bilateral] Onset: 11-03-2023 11-03-2023 Episodic Residual codes; unclassified (5 sources) Patient encounter status; Translations: [Encounter for prophylactic measures, unspecified] Onset: 12-04-2023 05-08-2020 Episodic Residual codes; unclassified (6 sources) Bilateral lower limb edema; Translations: [Localized edema] Onset: 11-03-2023 11-03-2023 Episodic Screening and history of mental health and substance abuse codes (1 source) Personal history of nicotine dependence; Translations: [PERSONAL HISTORY OF NICOTINE DEPEND] Onset: 05-16-2022 Episodic Spondylosis; intervertebral disc disorders; other back problems (14 sources) Spinal stenosis, cervical region; Translations: [Degenerative cervical spinal stenosis] Onset: 01-28-2022 11-03-2023 Episodic Sprains and strains (2 sources) Sprain [...] Value Interpretation Reference Range Facility Office Visiton 04-29-2024 Follow-up visit [id number] Jason Bartholomew 1945 M Date Provider Department Center 04/29/2024 ISH GARCIA Hos Family History Problem Relation Age of Onset Heart failure Mother Stroke Brother Heart failure Brother Family Status - Relation Status Age at Mother Brother Level of Service:75998 ND OFFICE/OUTPATIENT ESTABLISHED MOD MDM 30 MIN [facility] Optifoam Non-Adhesive [place] 04-26-2024 Applied in clinic today MANUALLY TRANSCRIBED RESULTS Diaphonics 36on 11-02-2023 36 Regarding stress test result from 10/30/2023: MD Veronica Rios MA Please let him know the stress test was normal Thanks Patient's made aware and she verbalized understanding. Normal [facility] Office Visiton 10-18-2023 Follow-up visit [id number] Jason Bartholomew 1945 Date Provider Department Center 10/18/2023 271-[address] [place] DEONTE Doherty Family History Problem Relation Age of Onset Heart failure Mother Stroke Brother Heart failure Brother Family Status - Relation Status Age at Mother Brother Level of Service:92079 [place] OFFICE/OUTPATIENT ESTABLISHED MOD [facility] NO DI FFERENTIALon 08-09-2023 Erythrocyte distribution width (RBC) [Ratio] 15.3 % High 11.0 - 15.0 % [facility] Hematocrit (Bld) [Volume fraction] 35.7 % Low 42.0 - 54.0 % [facility] Hemoglobin (Bld) [Mass/Vol] 11.0 g/dL Low 14.0 - 18.0 g/dL [facility] Interpretation and review of laboratory results [facility] MCH (RBC) [Entitic mass] 27.0 pg 25.9 - 34.0 pg [facility] MCHC (RBC) [Mass/Vol] 30.8 g/dL 29.9 - 35.2 g/dL [facility] MCV (RBC) [Entitic vol] 87.7 fL 80.0 - 94.0 fL [facility] Platelet mean volume (Bld) [Entitic vol] 10.9 fL 9.5 - 13.5 fL [facility] PLT 244 [facility] RBC 4.07 Low [facility] WBC 7.4 [facility] 05-04-2023 Follow-up visit [id number] Jason Bartholomew 1945 Date Provider Department Center 05/04/2023 [id number]-NHARREZZXAMADOR MEYER DEONTE Doherty Family History Problem Relation Age of Onset Heart failure Mother Stroke Brother Heart failure Brother Family Status - Relation Status Age at Mother Brother Level of Service:92036 ND OFFICE/OUTPATIENT ESTABLISHED LOW MDM 20-29 MIN Normal [facility] PROF CHEM 8 (BAS METB)on Anion gap [Moles/Vol] 11.0 mmol/L Normal [facility] Comment on above: Performed By: #### M G, BMP, URIC, ALB, PHOS #### [facility] [address] [place] [address] Dr. Terence Love Calcium [Mass/Vol] 9.2 mg/dL Normal 8.5-10.1 [facility] Comment on above: Performed By: #### M G, BMP, URIC, ALB, PHOS #### [facility] [address] [place] [address] Dr. Terence Love Chloride [Moles/Vol] 101 mmol/L Normal 98-107 [facility] Comment on above: Performed By: #### M G, BMP, URIC, ALB, PHOS #### [facility] [address] [place] [address] Dr. Terence Love CO2 [Moles/Vol] 32.1 mmol/L Critically high 21.0-32.0 [facility] Comment on above: Performed By: #### M G, BMP, URIC, ALB, PHOS #### [facility] [address] [place] [address] Dr. Terence Love Creatinine [Mass/Vol] 1.70 mg/dL Critically high 0.70-1.30 [facility] Comment on above: Performed By: #### M G, BMP, URIC, ALB, PHOS #### [facility] [address] [place] [address] Dr. Terence Love EGFR-AF COLOMBIAN 47 mL/min/1.73m2 Critically low >=60 [facility] Comment on above: Performed By: #### M G, BMP, URIC, ALB, PHOS #### [facility] [address] [place] [address] Dr. Terence Love EGFR-NON AF COLOMBIAN 39 mL/min/1.73m2 Critically low >=60 [facility] Comment on above: Performed By: #### M G, BMP, URIC, ALB, PHOS #### [facility] [address] [address] [address] Terence Love Glucose [Mass/Vol] 188 mg/dL Critically high 74-106 T [facility] Comment on above: Performed By: #### M G, BMP, URIC, ALB, PHOS #### [facility] [address] [place] [address] Dr. Terence Love Potassium [Moles/Vol] 4.1 mmol/L Normal 3.5-5.1 [facility] Comment on above: Performed By: #### M G, BMP, URIC, ALB, PHOS #### [facility] [address] [place] [address] Dr. Terence Love Sodium [Moles/Vol] 140 mmol/L Normal 136-145 [facility] Comment on above: Performed By: #### M G, BMP, URIC, ALB, PHOS #### [facility] [address] [place] [address] Dr. Terence Love Urea nitrogen [Mass/Vol] 26.0 mg/dL Critically high 7.0-18.0 [facility] Comment on above: Performed By: #### M G, BMP, URIC, ALB, PHOS #### [facility] [address] [place] [address] Dr. Terence Love Urea nitrogen/Creatinine [Mass ratio] 15.3 mg/mg Normal [facility] Comment on above: Performed By: #### M G, BMP, URIC, ALB, PHOS #### [facility] [address] [place] [address] Dr. Terence Love BNPon 11-17-2022 Natriuretic peptide B (Bld) [Mass/Vol] 305.0 pg/mL Normal <=1,800.0 [facility] Comment on above: Performed By: #### M G, BMP, URIC, ALB, PHOS #### [facility] [address] [place] [address] Dr. Terence Love CBC AUTO DIFFon 11-17-2022 BASO # 0.0 103/ul Normal 0.0-0.1 [facility] Comment on above: Performed By: #### M G, BMP, URIC, ALB, PHOS #### [facility] [address] [place] [address] Dr. Terence Love Basophils/100 WBC (Bld) 0.5 % Normal 0.2-2.0 [facility] Comment on above: Performed By: #### M G, BMP, URIC, ALB, PHOS #### [facility] [address] [place] [address] Dr. Terence Love EO # 0.1 103/ul Normal 0.0-0.7 [facility] Comment on above: Performed By: #### M G, BMP, URIC, ALB, PHOS #### [facility] [address] [place] [address] Dr. Terence Love Eosinophils/100 WBC (Bld) 2.0 % Normal 0.9-7.0 [facility] Comment on above: Performed By: #### M G, BMP, URIC, ALB, PHOS #### [facility] [address] [place] [address] Dr. Terence Love Erythrocyte distribution width (RBC) [Ratio] 14.5 % Normal 11.0-15.0 [facility] Comment on above: Performed By: #### M G, BMP, URIC, ALB, PHOS #### [facility] [address] [place] [address] Dr. Terence Love Hematocrit (Bld) [Volume fraction] 40.8 % Critically low 42.0-54.0 [facility] Comment on above: Performed By: #### M G, BMP, URIC, ALB, PHOS #### [facility] [address] [place] [address] Dr. Terence Love Hemoglobin (Bld) [Mass/Vol] 13.3 g/dL Critically low 14.0-18.0 [facility] Comment on above: Performed By: #### M G, BMP, URIC, ALB, PHOS #### [facility] [address] [place] [address] Dr. Terence Love IG # 0.02 10e3/ul Normal 0.00-0.03 [facility] Comment on above: Performed By: #### M G, BMP, URIC, ALB, PHOS #### [facility] [address] [place] [address] Dr. Terence Love IG % 0.3 % Normal 0.0-0.5 [facility] Comment on above: Performed By: #### M G, BMP, URIC, ALB, PHOS #### [facility] [address] [place] [address] Dr. Terence Love LYMPH # 1.1 103/ul Critically low 1.2-3.8 [facility] Comment on above: Performed By: #### M G, BMP, URIC, ALB, PHOS #### [facility] [address] [place] [address] Dr. Terence Love Lymphocytes/100 WBC (Bld) 18.9 % Critically low 20.5-60.0 [facility] Comment on above: Performed By: #### M G, BMP, URIC, ALB, PHOS #### [facility] [address] [place] [address] Dr. Terence Love MANUAL DIFF REQ NO Normal [facility] Comment on above: Performed By: #### M G, BMP, URIC, ALB, PHOS #### [facility] [address] [place] [address] Dr. Terence Love MCH (RBC) [Entitic mass] 30.2 pg Normal 25.9-34.0 [facility] Comment on above: Performed By: #### M G, BMP, URIC, ALB, PHOS #### [facility] [address] [place] [address] Dr. Terence Love MCHC (RBC) [Mass/Vol] 32.6 g/dL Normal 29.9-35.2 [facility] Comment on above: Performed By: #### M G, BMP, URIC, ALB, PHOS #### [facility] [address] [place] [address] Dr. Terence Love MCV (RBC) [Entitic vol] 92.5 fL Normal 80.0-94.0 [facility] Comment on above: Performed By: #### M G, BMP, URIC, ALB, PHOS #### [facility] [address] [place] [address] Dr. Terence Love MONO # 0.7 103/ul Normal 0.3-0.8 [facility] Comment on above: Performed By: #### M G, BMP, URIC, ALB, PHOS #### [facility] [address] [address] [address] Terence Love Monocytes/100 WBC (Bld) 10.9 % Normal 1.7-12.0 [facility] Comment on above: Performed By: #### M G, BMP, URIC, ALB, PHOS #### [facility] [address] [place] [address] Dr. Terence Love NEUT # 4.1 103/ul Normal 1.4-6.5 [facility] Comment on above: Performed By: #### M G, BMP, URIC, ALB, PHOS #### [facility] [address] [place] [address] Dr. Terence Love Neutrophils/100 WBC (Bld) 67.4 % Normal 43.0-75.0 [facility] Comment on above: Performed By: #### M G, BMP, URIC, ALB, PHOS #### [facility] [address] [place] [address] Dr. Terence Love Platelet mean volume (Bld) [Entitic vol] 10.6 fL Normal 9.5-13.5 [facility] Comment on above: Performed By: #### M G, BMP, URIC, ALB, PHOS #### [facility] [address] [place] [address] Dr. Terence Love PLT 219 103/ul Normal 150-450 [facility] Comment on above: Performed By: #### M G, BMP, URIC, ALB, PHOS #### [facility] [address] [place] [address] Dr. Terence Love RBC 4.41 106/ul Critically low 4.70-6.10 [facility] Comment on above: Performed By: #### M G, BMP, URIC, ALB, PHOS #### [facility] [address] [place] [address] Dr. Terence Love WBC 6.0 103/ul Normal 4.0-11.0 [facility] Comment on above: Performed By: #### M G, BMP, URIC, ALB, PHOS #### [facility] [address] [place] [address] Dr. Terence Love PROF 14(COMP METB)on 023 Albumin [Mass/Vol] 3.9 g/dL Normal 3.4-5.0 [facility] Comment on above: Performed By: #### M G, BMP, URIC, ALB, PHOS #### [facility] [address] [place] [address] Dr. Terence Love Albumin/Globulin [Mass ratio] 1.1 {ratio} Normal [facility] Comment on above: Performed By: #### M G, BMP, URIC, ALB, PHOS #### [facility] [address] [place] [address] Dr. Terence Love ALP [Catalytic activity/Vol] 69 U/L Normal 46-116 [facility] Comment on above: Performed By: #### M G, BMP, URIC, ALB, PHOS #### [facility] [address] [place] [address] Dr. Terence Love ALT [Catalytic activity/Vol] 33 U/L Normal 16-63 [facility] Comment on above: Performed By: #### M G, BMP, URIC, ALB, PHOS #### [facility] [address] [place] [address] Dr. Terence Love Anion gap [Moles/Vol] 11.9 mmol/L Normal [facility] Comment on above: Performed By: #### M G, BMP, URIC, ALB, PHOS #### [facility] [address] [place] [address] Dr. Terence Love AST [Catalytic activity/Vol] 21 U/L Normal 15-37 [facility] Comment on above: Performed By: #### M G, BMP, URIC, ALB, PHOS #### [facility] [address] [place] [address] Dr. Terence Love Bilirubin [Mass/Vol] 0.6 mg/dL Normal 0.2-1.0 [facility] Comment on above: Performed By: #### M G, BMP, URIC, ALB, PHOS #### [facility] [address] [place] [address] Dr. Terence Love Calcium [Mass/Vol] 9.3 mg/dL Normal 8.5-10.1 [facility] Comment on above: Performed By: #### M G, BMP, URIC, ALB, PHOS #### [facility] [address] [place] [address] Dr. Terence Love Chloride [Moles/Vol] 101 mmol/L Normal 98-107 [facility] Comment on above: Performed By: #### M G, BMP, URIC, ALB, PHOS #### [facility] [address] [place] [address] Dr. Terence Love CO2 [Moles/Vol] 31.3 mmol/L Normal 21.0-32.0 [facility] Comment on above: Performed By: #### M G, BMP, URIC, ALB, PHOS #### [facility] [address] [place] [address] Dr. Terence Love Creatinine [Mass/Vol] 1.94 mg/dL Critically high 0.70-1.30 [facility] Comment on above: Performed By: #### M G, BMP, URIC, ALB, PHOS #### [facility] [address] [place] [address] Dr. Terence Love EGFR-AF COLOMBIAN 41 mL/min/1.73m2 Critically low >=60 [facility] Comment on above: Performed By: #### M G, BMP, URIC, ALB, PHOS #### [facility] [address] [place] [address] Dr. Terence Love EGFR-NON AF COLOMBIAN 34 mL/min/1.73m2 Critically low >=60 [facility] Comment on above: Performed By: #### M G, BMP, URIC, ALB, PHOS #### [facility] [address] [place] [address] Dr. Terence Love Globulin (S) [Mass/Vol] 3.5 g/dL Normal T [facility] Comment on above: Performed By: #### M G, BMP, URIC, ALB, PHOS #### [facility] [address] [address] [address] Terence Love Glucose [Mass/Vol] 127 mg/dL Critically high 74-106 T [facility] Comment on above: Performed By: #### M G, BMP, URIC, ALB, PHOS #### [facility] [address] [address] [address] Terence Love Potassium [Moles/Vol] 4.2 mmol/L Normal 3.5-5.1 [facility] Comment on above: Performed By: #### M G, BMP, URIC, ALB, PHOS #### [facility] [address] [place] [address] Dr. Terence Love Protein [Mass/Vol] 7.4 g/dL Normal 6.4-8.2 [facility] Comment on above: Performed By: #### M G, BMP, URIC, ALB, PHOS #### [facility] [address] [place] [address] Dr. Terence Love Sodium [Moles/Vol] 140 mmol/L Normal 136-145 [facility] Comment on above: Performed By: #### M G, BMP, URIC, ALB, PHOS #### [facility] [address] [place] [address] Dr. Terence Love Urea nitrogen [Mass/Vol] 26.0 mg/dL Critically high 7.0-18.0 [facility] Comment on above: Performed By: #### M G, BMP, URIC, ALB, PHOS #### [facility] [address] [address] [address] Terence Love Urea nitrogen/Creatinine [Mass ratio] 13.4 mg/mg Normal [facility] Comment on above: Performed By: #### M G, BMP, URIC, ALB, PHOS #### [facility] [address] [place] [address] Dr. Terence Love XR CHEST 2 Von [...] by: GEORGIE CHARLES Date: 2022-11-17 13:[address] [facility] [address] LSPINE WO CONon 3 CT LSVULCAN WO CON EXAMINATION: CT LSPINE WO CON [...] by: RAJENDRA FRANCO Date: 2022-11-15 07:36 Normal [facility] ALBUMINon 08-12-2022 Albumin [Mass/Vol] 3.8 g/dL Normal 3.4-5.0 [facility] Comment on above: Performed By: #### M G, BMP, URIC, ALB, PHOS #### [facility] [address] [place] [address] Dr. Terence Love HEMOGRAM AND PLATELon 2022 Hematocrit (Bld) [Volume fraction] 38.3 % Critically low 42.0-54.0 [facility] Comment on above: Performed By: #### M G, BMP, URIC, ALB, PHOS #### [facility] [address] [place] [address] Dr. Terence Love Hemoglobin (Bld) [Mass/Vol] 12.5 g/dL Critically low 14.0-18.0 [facility] Comment on above: Performed By: #### M G, BMP, URIC, ALB, PHOS #### [facility] [address] [place] [address] Dr. Terence Love MCH (RBC) [Entitic mass] 29.7 pg Normal 25.9-34.0 [facility] Comment on above: Performed By: #### M G, BMP, URIC, ALB, PHOS #### [facility] [address] [place] [address] Dr. Terence Love MCHC (RBC) [Mass/Vol] 32.6 g/dL Normal 29.9-35.2 [facility] Comment on above: Performed By: #### M G, BMP, URIC, ALB, PHOS #### [facility] [address] [place] [address] Dr. Terence Love MCV (RBC) [Entitic vol] 91.0 fL Normal 80.0-94.0 [facility] Comment on above: Performed By: #### M G, BMP, URIC, ALB, PHOS #### [facility] [address] [place] [address] Dr. Terence Love PLT 192 103/ul Normal 150-450 [facility] Comment on above: Performed By: #### M G, BMP, URIC, ALB, PHOS #### [facility] [address] [place] [address] Dr. Terence Love RBC 4.21 106/ul Critically low 4.70-6.10 [facility] Comment on above: Performed By: #### M G, BMP, URIC, ALB, PHOS #### [facility] [address] [place] [address] Dr. Terence Love WBC 6.2 103/ul Normal 4.0-11.0 [facility] Comment on above: Performed By: #### M G, BMP, URIC, ALB, PHOS #### [facility] [address] [place] [address] Dr. Terence Love MAGNESIUMon 08-12-2022 Magnesium [Mass/Vol] 1.8 mg/dL Normal 1.8-2.4 [facility] Comment on above: Performed By: #### B MP #### [facility] [address] [place] [address] Dr. Terence Love PHOSPHORUSon 08-12-2022 Phosphate [Mass/Vol] 4.1 mg/dL Normal 2.6-4.7 [facility] Comment on above: Performed By: #### B MP #### [facility] [address] [place] [address] Dr. Terence Love PROF CHEM 8 (BAS METB)on Anion gap [Moles/Vol] 14.2 mmol/L Normal [facility] Comment on above: Performed By: #### M G, BMP, URIC, ALB, PHOS #### [facility] [address] [place] [address] Dr. Terence Love Calcium [Mass/Vol] 9.4 mg/dL Normal 8.5-10.1 [facility] Comment on above: Performed By: #### M G, BMP, URIC, ALB, PHOS #### [facility] [address] [place] [address] Dr. Terence Love Chloride [Moles/Vol] 102 mmol/L Normal 98-107 [facility] Comment on above: Performed By: #### M G, BMP, URIC, ALB, PHOS #### [facility] [address] [place] [address] Dr. Terence Love CO2 [Moles/Vol] 29.4 mmol/L Normal 21.0-32.0 [facility] Comment on above: Performed By: #### M G, BMP, URIC, ALB, PHOS #### [facility] [address] [place] [address] Dr. Terence Love Creatinine [Mass/Vol] 1.54 mg/dL Critically high 0.70-1.30 [facility] Comment on above: Performed By: #### M G, BMP, URIC, ALB, PHOS #### [facility] [address] [address] [address] Terence Love EGFR-AF COLOMBIAN 53 mL/min/1.73m2 Critically low >=60 [facility] Comment on above: Performed By: #### M G, BMP, URIC, ALB, PHOS #### [facility] [address] [place] [address] Dr. Terence Love EGFR-NON AF COLOMBIAN 44 mL/min/1.73m2 Critically low >=60 [facility] Comment on above: Performed By: #### M G, BMP, URIC, ALB, PHOS #### [facility] [address] [place] [address] Dr. Terence Love Glucose [Mass/Vol] 196 mg/dL Critically high 74-106 [facility] Comment on above: Performed By: #### M G, BMP, URIC, ALB, PHOS #### [facility] [address] [place] [address] Dr. Terence Love Potassium [Moles/Vol] 4.6 mmol/L Normal 3.5-5.1 [facility] Comment on above: Performed By: #### M G, BMP, URIC, ALB, PHOS #### [facility] [address] [address] [address] Terence Love Sodium [Moles/Vol] 141 mmol/L Normal 136-145 [facility] Comment on above: Performed By: #### M G, BMP, URIC, ALB, PHOS #### [facility] [address] [place] [address] Dr. Terence Love Urea nitrogen [Mass/Vol] 26.0 mg/dL Critically high 7.0-18.0 [facility] Comment on above: Performed By: #### M G, BMP, URIC, ALB, PHOS #### [facility] [address] [address] [address] Terence Love Urea nitrogen/Creatinine [Mass ratio] 16.9 mg/mg Normal [facility] Comment on above: Performed By: #### M G, BMP, URIC, ALB, PHOS #### [facility] [address] [address] [address] Terence Love URIC ACID SERUMon 08-12-2022 Urate [Mass/Vol] 6.0 mg/dL Normal 3.5-7.2 [facility] Comment on above: Performed By: #### M G, BMP, URIC, ALB, PHOS #### [facility] [address] [address] [address] Terence Love Glucose Glucometer (BldC) [M ass/Vol]Ordered By: Darien Escamilla on 07-06-2022 Glucose [Mass/Vol] 82 mg/dL [facility] Comment on above: Random Glucose Refer ence Range is dependent on time and content of last meal. Glucose of more than 200 mg/dL in a nonstressed, ambulatory subject supports the diagnosis of Diabetes Mellitus. Glucose Poct Glucometerson 0 07-06-2022 Commemt1 Glu2: Cleaned Meter Normal [facility] Comment on above: Result Comment: PERF ORMED BY: [facility] [address] [place] [address] PATHOLOGIST MEDIA CONSULTANT KEZIA MUÑOZ M.D. Performed By: #### G LULS #### Point of Care testing , Glucose [Mass/Vol] 82 mg/dL Normal [facility] Comment on above: Result Comment: [place] Glucose Reference Range is dependent on time and content of last meal. Glucose of more than 200 mg/dL in a nonstressed, ambulatory subject supports the diagnosis of Diabetes Mellitus. Performed By: #### G LULS #### Point of Care testing , No Panel InformationOrdered By: Darien Escamilla on 07-06-2022 Bedside Glucose Comment Glu2: cleaned meter [facility] Basic Metabolic Panelon 12-2 Anion gap [Moles/Vol] 10.3 mmol/L Normal 6.0-15.0 [facility] Comment on above: Performed By: #### C BC, BMP #### [facility] [address] Calcium [Mass/Vol] 9.3 mg/dL Normal 8.2-10.2 [facility] Comment on above: Result Comment: PERF ORMED BY: [place] [address] PATHOLOGIST MEDIA CONSULTANT KEZIA MUÑOZ M.D. Performed By: #### C BC, BMP #### [address] Chloride [Moles/Vol] 102 mmol/L Normal 95-114 [facility] Comment on above: Performed By: #### C BC, BMP #### [address] CO2 [Moles/Vol] 28.3 mmol/L Normal 22.0-30.0 [facility] Comment on above: Performed By: #### C BC, BMP #### [address] Creatinine [Mass/Vol] 1.62 mg/dL High 0.64-1.27 [facility] Comment on above: Performed By: #### C BC, BMP #### [address] Estimated GFR ( [place] [address] [facility] Comment on above: Result Comment: GFR estimated reference range: According to KDOQI guidelines, <60 ml/min/1.73m2 is sufficient to diagnose a patient with chronic kidney disease. Performed By: #### C BC, BMP #### [address] Estimated GFR (Non- Am [address] [facility] Comment on above: Performed By: #### C BC, BMP #### [place] [address] [place] Glucose [Mass/Vol] 202 mg/dL High 70-100 [facility] System Comment on above: Result Comment: [facility] Glucose Reference Range is dependent on time and content of last meal. Glucose of more than 200 mg/dL in a nonstressed, ambulatory subject supports the diagnosis of Diabetes Mellitus. ADA recommended reference range Performed By: #### C BC, BMP #### [facility] [address] Potassium [Moles/Vol] 4.6 mmol/L Normal 3.5-5.1 [facility] Comment on above: Performed By: #### C BC, BMP #### [facility] [address] Sodium [Moles/Vol] 136 mmol/L Normal 136-146 [facility] Comment on above: Performed By: #### C BC, BMP #### [facility] [address] Urea nitrogen [Mass/Vol] 25 mg/dL High 9-23 [facility] Comment on above: Performed By: #### C BC, BMP #### [facility] [address] [place] [address] [place] Basophils Auto (Bld) [#/Vol] Ordered By: Darien Escamilla on 06-22-2022 Basophils (Bld) [#/Vol] 0.0 10*3/uL 0.0-0.2 [facility] Basophils/100 WBC Auto (Bld) Ordered By: Darien Escamilla on 06-22-2022 Basophils/100 WBC (Bld) 0.5 % . [facility] Complete Blood Count Auto Di ffon 06-22-2022 Basophils (Bld) [#/Vol] 0.0 10*3/uL Normal 0.0-0.2 [facility] Comment on above: Result Comment: PERF ORMED BY: [place] [address] PATHOLOGIST MEDIA CONSULTANT KEZIA MUÑOZ M.D. Performed By: #### C BC, BMP #### [facility] [address] [place] [address] [place] Basophils/100 WBC (Bld) 0.5 % Normal . [facility] Comment on above: Performed By: #### C BC, BMP #### [facility] [address] Eosinophils (Bld) [#/Vol] 0.1 10*3/uL Normal 0.0-0.45 [facility] Comment on above: Performed By: #### C BC, BMP #### [facility] [address] Eosinophils/100 WBC (Bld) 1.5 % Normal . [facility] Comment on above: Performed By: #### C BC, BMP #### [address] Erythrocyte distribution width (RBC) [Ratio] 14.3 % Normal 12.0-14.8 [facility] Comment on above: Performed By: #### C BC, BMP #### [address] Hematocrit (Bld) [Volume fraction] 38.3 % Low 38.8-50.0 [facility] Comment on above: Performed By: #### C BC, BMP #### [address] Hemoglobin (Bld) [Mass/Vol] 12.6 g/dL Low 13.0-17.0 [facility] Comment on above: Performed By: #### C BC, BMP #### [address] Lymphocytes (Bld) [#/Vol] 0.9 10*3/uL Low 1.00-4.8 [facility] Comment on above: Performed By: #### C BC, BMP #### [address] Lymphocytes/100 WBC (Bld) 16.3 % Normal . [facility] Comment on above: Performed By: #### C BC, BMP #### [address] MCH (RBC) [Entitic mass] 29.8 pg Normal 27.5-35.2 [facility] Comment on above: Performed By: #### C BC, BMP #### [facility] [address] MCV (RBC) [Entitic vol] 90.2 fL Normal 83.5-101 F [facility] Comment on above: Performed By: #### C BC, BMP #### [facility] [address] Mean Corpuscular HGB Conc 33.0 g/dL Normal 32.5-35.6 [facility] Comment on above: Performed By: #### C BC, BMP #### [facility] [address] Monocytes (Bld) [#/Vol] 0.6 10*3/uL Normal 0.0-0.8 [facility] Comment on above: Performed By: #### C BC, BMP #### [place] [address] [place] Monocytes/100 WBC (Bld) 9.9 % Normal . [facility] Comment on above: Performed By: #### C BC, BMP #### [facility] [address] [place] [address] [place] Neutrophils (Bld) [#/Vol] 4.2 10*3/uL Normal 1.8-7.7 [facility] Comment on above: Performed By: #### C BC, BMP #### [place] [address] [place] Neutrophils/100 WBC (Bld) 71.8 % Normal . [facility] Comment on above: Performed By: #### C BC, BMP #### [facility] [address] [place] [address] [place] NRBC% 0.2 /100{WBC} Normal 0-0.5 [facility] Comment on above: Performed By: #### C BC, BMP #### [facility] [address] Platelet mean volume (Bld) [Entitic vol] 9.0 fL Normal 6.6-10.1 [facility] Comment on above: Performed By: #### C BC, BMP #### [facility] [address] Platelets (Bld) [#/Vol] 180 10*3/uL Normal 150-450 [facility] Comment on above: Performed By: #### C BC, BMP #### [facility] [address] RBC (Bld) [#/Vol] 4.25 10*6/uL Normal 3.90-5.60 [facility] Comment on above: Performed By: #### C BC, BMP #### [facility] [address] WBC (Bld) [#/Vol] 5.8 10*3/uL Normal 4.1-10.5 [facility] Comment on above: Performed By: #### C BC, BMP #### [facility] [address] Creatinine and Glomerular fi ltration rate.predicted panel (S/P/Bld)Ordered By: Darien Escamilla on 06-22-2022 Creatinine [Mass/Vol] 1.62 mg/dL 0.64-1.27 [facility] ECG 12 lead ECGon 06-22-2022 ECG 12 lead ECG [facility] [place] [address] [place] [address] Electrocardiograph Report Signed Patient: Jason Bartholomew MR#: [id number] : 1945 Acct:[id number] Age/Sex: 76 / M ADM Date: 06/22/22 Loc: Room: Type: [facility] Attending Dr: Darien Escamilla MD Ordering Provider: [...] By Gabby Celis DO 06/22 1306 Normal [facility] Eosinophils Auto (Bld) [#/Vo l]Ordered By: Darien Escamilla on 06-22-2022 Eosinophils (Bld) [#/Vol] 0.1 10*3/uL 0.0-0.45 [facility] Eosinophils/100 WBC Auto (Bl d)Ordered By: Darien Escamilla on 06-22-2022 Eosinophils/100 WBC (Bld) 1.5 % . [facility] Erythrocyte distribution wid th Auto (RBC) [Ratio]Ordered By: Darien Escamilla on 06-22-2022 Erythrocyte distribution width (RBC) [Ratio] 14.3 % 12.0-14.8 [facility] Estimated glomerular filtrat ion rate (GFR) non- AmericanOrdered By: Darien Escamilla on 06-22-2022 GFR/1.73 sq M.predicted among non-blacks MDRD (S/P/Bld) [Vol rate/Area] 41 mL/Min [facility] Hematocrit Auto (Bld) [Volum e fraction]Ordered By: Darien Escamilla on 06-22-2022 Hematocrit (Bld) [Volume fraction] 38.3 % 38.8-50.0 [facility] Hemoglobin [Mass/volume] in BloodOrdered By: Darien Escamilla on 06-22-2022 Hemoglobin (Bld) [Mass/Vol] 12.6 g/dL 13.0-17.0 [facility] Leukocytes [#/volume] correc jose for nucleated erythrocytes in Blood by Automated counOrdered By: Darien Escamilla on 06-22-2022 WBC corrected for nucl RBC Auto (Bld) [#/Vol] 5.8 10*3/uL 4.1-10.5 [facility] Lymphocytes Auto (Bld) [#/Vo l]Ordered By: Darien Escamilla on 06-22-2022 Lymphocytes (Bld) [#/Vol] 0.9 10*3/uL 1.00-4.8 [facility] Lymphocytes/100 WBC Auto (Bl d)Ordered By: Darien Escamilla on 06-22-2022 Lymphocytes/100 WBC (Bld) 16.3 % . [facility] MCH Auto (RBC) [Entitic mass ]Ordered By: Darien Escamilla on 06-22-2022 MCH (RBC) [Entitic mass] 29.8 pg 27.5-35.2 [facility] MCHC Auto (RBC) [Mass/Vol]Or dered By: Darien Escamilla on 06-22-2022 MCHC (RBC) [Mass/Vol] 33.0 g/dL 32.5-35.6 [facility] MCV Auto (RBC) [Entitic vol] Ordered By: Darien Escamilla on 06-22-2022 MCV (RBC) [Entitic vol] 90.2 fL 83.5-101 F [facility] Monocytes Auto (Bld) [#/Vol] Ordered By: Darien Escamilla on 06-22-2022 Monocytes (Bld) [#/Vol] 0.6 10*3/uL 0.0-0.8 [facility] Monocytes/100 WBC Auto (Bld) Ordered By: Darien Escamilla on 06-22-2022 Monocytes/100 WBC (Bld) 9.9 % . F [facility] Neutrophils Auto (Bld) [#/Vo l]Ordered By: Darien Escamilla on 06-22-2022 Neutrophils (Bld) [#/Vol] 4.2 10*3/uL 1.8-7.7 [facility] Neutrophils/100 WBC Auto (Bl d)Ordered By: Darien Escamilla on 06-22-2022 Neutrophils/100 WBC (Bld) 71.8 % . [facility] No Panel InformationOrdered By: Darien Escamilla on 06-22-2022 Estimated GFR () 50 mL/Min [facility] Comment on above: GFR estimated refere nce range: According to KDOQI guidelines, <60 ml/min/1.73m2 is sufficient to diagnose a patient with chronic kidney disease. Pharmacy Creatinine Clearance (Chem N/A [facility] Nucleated erythrocytes [Pres ence] in Blood by Automated countOrdered By: Darien Escamilla on 06-22-2022 Nucleated RBC Auto Ql (Bld) 0.2 /100{WBC} 0-0.5 [facility] Platelet mean volume Auto (B ld) [Entitic vol]Ordered By: Darien Escamilla on 06-22-2022 Platelet mean volume (Bld) [Entitic vol] 9.0 fL 6.6-10.1 [facility] Platelets Auto (Bld) [#/Vol] Ordered By: Darien Escamilla on 06-22-2022 Platelets (Bld) [#/Vol] 180 10*3/uL 150-450 [facility] RBC Auto (Bld) [#/Vol]Ordere d By: Darien Escamilla on 06-22-2022 RBC (Bld) [#/Vol] 4.25 10*6/uL 3.90-5.60 [facility] Serum or plasma anion gap de terminationOrdered By: Darien Escamilla on 06-22-2022 Anion gap [Moles/Vol] 10.3 mmol/L 6.0-15.0 [facility] Serum or plasma calcium abhishek urement (mass/volume)Ordered By: Darien Escamilla on 06-22-2022 Calcium [Mass/Vol] 9.3 mg/dL 8.2-10.2 [facility] Serum or plasma chloride abraham surement (moles/volume)Ordered By: Darien Escamilla on 06-22-2022 Chloride [Moles/Vol] 102 mmol/L 95-114 [facility] Serum or plasma glucose abhishek urement (mass/volume)Ordered By: Darien Escamilla on 06-22-2022 Glucose [Mass/Vol] 202 mg/dL 70-100 [facility] Comment on above: ADA recommended refe rence rangeRandom Glucose Reference Range is dependent on time and content of last meal. Glucose of more than 200 mg/dL in a nonstressed, ambulatory subject supports the diagnosis of Diabetes Mellitus. Serum or plasma potassium me asurement (moles/volume)Ordered By: Darien Escamilla on 06-22-2022 Potassium [Moles/Vol] 4.6 mmol/L 3.5-5.1 [facility] Serum or plasma sodium measu rement (moles/volume)Ordered By: Darien Escamilla on 06-22-2022 Sodium [Moles/Vol] 136 mmol/L 136-146 [facility] Serum or plasma total carbon dioxide measurement (moles/volume)Ordered By: Darien Escamilla on 06-22-2022 CO2 [Moles/Vol] 28.3 mmol/L 22.0-30.0 [facility] Serum or plasma urea nitroge n measurement (mass/volume)Ordered By: Darien Escamilla on 06-22-2022 Urea nitrogen [Mass/Vol] 25 mg/dL 03-25 [facility] WBC Auto (Bld) [#/Vol]Ordere d By: Darien Escamilla on 06-22-2022 WBC (Bld) [#/Vol] 5.8 10*3/uL 4.1-10.5 [facility] Covid-19 PCR (CVDTB)on 04-02 SARS-CoV-2 (COVID-19) RNA KOLTON+probe Ql (Unsp spec) Not detected Normal NOT DETECTED [facility] Comment on above: Result Comment: This test is not yet approved or cleared by the [place] FDA. When there are no FDA-approved or cleared tests available, and other criteria are met, FDA can make tests available under an emergency access mechanism called an Emergency Use Authorization (EUA). The EUA for this test is supported by the [place] of Health and Human Service's (HHS's) declaration [...] SARS-CoV-2. Performed By: #### C [facility] #### [facility] [address] [place] [address] Dr. Terence Love CTA CHEST WO W [...] by: RAJENDRA FRANCO Date: 2022-04-04 08:00 Normal [facility] CBC AUTO DIFFon 04-02-2022 BASO # 0.0 103/ul Normal 0.0-0.1 [facility] Comment on above: Performed By: #### M G, BMP, URIC, ALB, PHOS #### [facility] [address] [address] [address] Terenec Love Basophils/100 WBC (Bld) 0.5 % Normal 0.2-2.0 [facility] Comment on above: Performed By: #### M G, BMP, URIC, ALB, PHOS #### [facility] [address] [address] [address] Terence Love EO # 0.1 103/ul Normal 0.0-0.7 [facility] Comment on above: Performed By: #### M G, BMP, URIC, ALB, PHOS #### [facility] [address] [address] [address] Terence Love Eosinophils/100 WBC (Bld) 1.9 % Normal 0.9-7.0 [facility] Comment on above: Performed By: #### M G, BMP, URIC, ALB, PHOS #### [facility] [address] [place] [address] Dr. Terence Love Erythrocyte distribution width (RBC) [Ratio] 13.8 % Normal 11.0-15.0 [facility] Comment on above: Performed By: #### M G, BMP, URIC, ALB, PHOS #### [facility] [address] [place] [address] Dr. Terence Love Hematocrit (Bld) [Volume fraction] 40.9 % Critically low 42.0-54.0 [facility] Comment on above: Performed By: #### M G, BMP, URIC, ALB, PHOS #### [facility] [address] [place] [address] Dr. Terence Love Hemoglobin (Bld) [Mass/Vol] 13.6 g/dL Critically low 14.0-18.0 [facility] Comment on above: Performed By: #### M G, BMP, URIC, ALB, PHOS #### [facility] [address] [place] [address] Dr. Terence Love IG # 0.02 10e3/ul Normal 0.00-0.03 [facility] Comment on above: Performed By: #### M G, BMP, URIC, ALB, PHOS #### [facility] [address] [place] [address] Dr. Terence Love IG % 0.3 % Normal 0.0-0.5 [facility] Comment on above: Performed By: #### M G, BMP, URIC, ALB, PHOS #### [facility] [address] [place] [address] Dr. Terence Love LYMPH # 1.1 103/ul Critically low 1.2-3.8 [facility] Comment on above: Performed By: #### M G, BMP, URIC, ALB, PHOS #### [facility] [address] [place] [address] Dr. Terence Love Lymphocytes/100 WBC (Bld) 16.9 % Critically low 20.5-60.0 [facility] Comment on above: Performed By: #### M G, BMP, URIC, ALB, PHOS #### [facility] [address] [place] [address] Dr. Terence Love MANUAL DIFF REQ NO Normal [facility] Comment on above: Performed By: #### M G, BMP, URIC, ALB, PHOS #### [facility] [address] [place] [address] Dr. Terence Love MCH (RBC) [Entitic mass] 30.3 pg Normal 25.9-34.0 [facility] Comment on above: Performed By: #### M G, BMP, URIC, ALB, PHOS #### [facility] [address] [place] [address] Dr. Terence Love MCHC (RBC) [Mass/Vol] 33.3 g/dL Normal 29.9-35.2 [facility] Comment on above: Performed By: #### M G, BMP, URIC, ALB, PHOS #### [facility] [address] [place] [address] Dr. Terence Love MCV (RBC) [Entitic vol] 91.1 fL Normal 80.0-94.0 [facility] Comment on above: Performed By: #### M G, BMP, URIC, ALB, PHOS #### [facility] [address] [place] [address] Dr. Terence Love MONO # 0.6 103/ul Normal 0.3-0.8 [facility] Comment on above: Performed By: #### M G, BMP, URIC, ALB, PHOS #### [facility] [address] [place] [address] Dr. Terence Love Monocytes/100 WBC (Bld) 10.1 % Normal 1.7-12.0 [facility] Comment on above: Performed By: #### M G, BMP, URIC, ALB, PHOS #### [facility] [address] [place] [address] Dr. Terence Love NEUT # 4.4 103/ul Normal 1.4-6.5 [facility] Comment on above: Performed By: #### M G, BMP, URIC, ALB, PHOS #### [facility] [address] [place] [address] Dr. Terence Love Neutrophils/100 WBC (Bld) 70.3 % Normal 43.0-75.0 [facility] Comment on above: Performed By: #### M G, BMP, URIC, ALB, PHOS #### [facility] [address] [place] [address] Dr. Terence Love Platelet mean volume (Bld) [Entitic vol] 10.6 fL Normal 9.5-13.5 [facility] Comment on above: Performed By: #### M G, BMP, URIC, ALB, PHOS #### [facility] [address] [place] [address] Dr. Terence Love PLT 179 103/ul Normal 150-450 [facility] Comment on above: Performed By: #### M G, BMP, URIC, ALB, PHOS #### [facility] [address] [place] [address] Dr. Terence Love RBC 4.49 106/ul Critically low 4.70-6.10 [facility] Comment on above: Performed By: #### M G, BMP, URIC, ALB, PHOS #### [facility] [address] [place] [address] Dr. Terence Love WBC 6.2 103/ul Normal 4.0-11.0 [facility] Comment on above: Performed By: #### M G, BMP, URIC, ALB, PHOS #### [facility] [address] [place] [address] Dr. Terence Love PROF CHEM 8 (BAS METB)on Anion gap [Moles/Vol] 8.8 mmol/L Normal [facility] Comment on above: Performed By: #### B MP #### [facility] [address] [place] [address] Dr. Terence Love Calcium [Mass/Vol] 9.1 mg/dL Normal 8.5-10.1 [facility] Comment on above: Performed By: #### B MP #### [facility] [address] [address] [address] Terence Love Chloride [Moles/Vol] 102 mmol/L Normal 98-107 [facility] Comment on above: Performed By: #### B MP #### [facility] [address] [address] [address] Terence Love CO2 [Moles/Vol] 31.6 mmol/L Normal 21.0-32.0 [facility] Comment on above: Performed By: #### B MP #### [facility] [address] [address] [address] Terence Love Creatinine [Mass/Vol] 1.48 mg/dL Critically high 0.70-1.30 [facility] Comment on above: Performed By: #### B MP #### [facility] [address] [address] [address] Terence Love EGFR-AF COLOMBIAN 56 mL/min/1.73m2 Critically low >=60 [facility] Comment on above: Performed By: #### B MP #### [facility] [address] [address] [address] Terence Love EGFR-NON AF COLOMBIAN 46 mL/min/1.73m2 Critically low >=60 [facility] Comment on above: Performed By: #### B MP #### [facility] [address] [address] [address] Terence Love Glucose [Mass/Vol] 125 mg/dL Critically high 74-106 [facility] Comment on above: Performed By: #### B MP #### [facility] [address] [address] [address] Terence Love Potassium [Moles/Vol] 4.4 mmol/L Normal 3.5-5.1 [facility] Comment on above: Performed By: #### B MP #### [facility] [address] [address] [address] Terence Love Sodium [Moles/Vol] 138 mmol/L Normal 136-145 [facility] Comment on above: Performed By: #### B MP #### [facility] [address] [place] [address] Dr. Terence Love Urea nitrogen [Mass/Vol] 24.0 mg/dL Critically high 7.0-18.0 [facility] Comment on above: Performed By: #### B MP #### [facility] [address] [place] [address] Dr. Terence Love Urea nitrogen/Creatinine [Mass ratio] 16.2 mg/mg Normal [facility] Comment on above: Performed By: #### B MP #### [facility] [address] [place] [address] Dr. Terence Love PROF CHEM 8 (BAS METB)on Anion gap [Moles/Vol] 13.4 mmol/L Normal [facility] Comment on above: Performed By: #### M G, BMP, URIC, ALB, PHOS #### [facility] [address] [place] [address] Dr. Terence Love Calcium [Mass/Vol] 9.1 mg/dL Normal 8.5-10.1 [facility] Comment on above: Performed By: #### M G, BMP, URIC, ALB, PHOS #### [facility] [address] [place] [address] Dr. Terence Love Chloride [Moles/Vol] 103 mmol/L Normal 98-107 [facility] Comment on above: Performed By: #### M G, BMP, URIC, ALB, PHOS #### [facility] [address] [place] [address] Dr. Terence Love CO2 [Moles/Vol] 27.9 mmol/L Normal 21.0-32.0 [facility] Comment on above: Performed By: #### M G, BMP, URIC, ALB, PHOS #### [facility] [address] [place] [address] Dr. Terence Love Creatinine [Mass/Vol] 1.66 mg/dL Critically high 0.70-1.30 [facility] Comment on above: Performed By: #### M G, BMP, URIC, ALB, PHOS #### [facility] [address] [address] [address] Terence Love EGFR-AF COLOMBIAN 49 mL/min/1.73m2 Critically low >=60 [facility] Comment on above: Performed By: #### M G, BMP, URIC, ALB, PHOS #### [facility] [address] [address] [address] Terence Love EGFR-NON AF COLOMBIAN 40 mL/min/1.73m2 Critically low >=60 [facility] Comment on above: Performed By: #### M G, BMP, URIC, ALB, PHOS #### [facility] [address] [address] [address] Terence Love Glucose [Mass/Vol] 211 mg/dL Critically high 74-106 [facility] Comment on above: Performed By: #### M G, BMP, URIC, ALB, PHOS #### [facility] [address] [place] [address] Dr. Terence Love Potassium [Moles/Vol] 4.3 mmol/L Normal 3.5-5.1 [facility] Comment on above: Performed By: #### M G, BMP, URIC, ALB, PHOS #### [facility] [address] [address] [address] Terence Love Sodium [Moles/Vol] 140 mmol/L Normal 136-145 [facility] Comment on above: Performed By: #### M G, BMP, URIC, ALB, PHOS #### [facility] [address] [place] [address] Dr. Terence Love Urea nitrogen [Mass/Vol] 31.0 mg/dL Critically high 7.0-18.0 [facility] Comment on above: Performed By: #### M G, BMP, URIC, ALB, PHOS #### [facility] [address] [place] [address] Dr. Terence Love Urea nitrogen/Creatinine [Mass ratio] 18.7 mg/mg Normal [facility] Comment on above: Performed By: #### M G, BMP, URIC, ALB, PHOS #### [facility] [address] [place] [address] Dr. Terence Love ECHOCARDIO M/2D COMPLETEon 0 02-02-2022 ECHOCARDIO M/2D COMPLETE Patient: JASON BARTHOLOMEW Exam Date: 02/02/2022 : 1945 Gender:M Ordering : DR ISH STOVER M.D. Admission #: [id number] Family : DR IDRIS JOSE . Order #: [id number] CLICK HERE TO VIEW EXAM ECHOCARDIOGRAM REPORT [...] Boyd M.D. on 02/02/2022 at 16:56 Normal [facility] MR cervical spine wo conon 0 01-28-2022 MR cervical spine wo con [facility] [place] [address] MRI Report Signed Patient: Jason Bartholomew MR#: [id number] : 1945 Acct:[id number] Age/Sex: 76 / M ADM Date: 01/28/22 Loc: MR Room: Type: [facility] Attending Dr: Idris Jose MD Copies to: [...] Elie Gerardo M.D.01/28/2022 12:25 PM Dictation Location: [place] [address] Transcribed By: [facility] 01/28/22 1225 Dictated By: Elie Gerardo II, MD 01/28/22 1211 Signed By: 01/28/22 1225 Normal [facility] PTH INTACTon 01-08-2022 PTH, Intact 27 pg/mL Normal 15-65 [facility] Comment on above: Performed By: #### M G, BMP, URIC, ALB, PHOS #### [facility] [address] [place] [address] Dr. Terence Love ALBUMINon 01-07-2022 Albumin [Mass/Vol] 3.9 g/dL Normal 3.4-5.0 [facility] Comment on above: Performed By: #### M G, BMP, URIC, ALB, PHOS #### [facility] [address] [place] [address] Dr. Terence Love CBC AUTO DIFFon 01-07-2022 BASO # 0.0 103/ul Normal 0.0-0.1 [facility] Comment on above: Performed By: #### C BC #### [facility] [address] [place] [address] Dr. Terence Love Basophils/100 WBC (Bld) 0.3 % Normal 0.2-2.0 [facility] Comment on above: Performed By: #### C BC #### [facility] [address] [place] [address] Dr. Terence Love EO # 0.1 103/ul Normal 0.0-0.7 [facility] Comment on above: Performed By: #### C BC #### [facility] [address] [place] [address] Dr. Terence Love Eosinophils/100 WBC (Bld) 2.0 % Normal 0.9-7.0 [facility] Comment on above: Performed By: #### C BC #### [facility] [address] [place] [address] Dr. Terence Love Erythrocyte distribution width (RBC) [Ratio] 13.9 % Normal 11.0-15.0 [facility] Comment on above: Performed By: #### C BC #### [facility] [address] [place] [address] Dr. Terence Love Hematocrit (Bld) [Volume fraction] 45.2 % Normal 42.0-54.0 [facility] Comment on above: Performed By: #### C BC #### [facility] [address] [place] [address] Dr. Terence Love Hemoglobin (Bld) [Mass/Vol] 14.4 g/dL Normal 14.0-18.0 [facility] Comment on above: Performed By: #### C BC #### [facility] [address] [place] [address] Dr. Terence Love IG # 0.03 10e3/ul Normal 0.00-0.03 [facility] Comment on above: Performed By: #### C BC #### [facility] [address] [place] [address] Dr. Terence Love IG % 0.5 % Normal 0.0-0.5 [facility] Comment on above: Performed By: #### C BC #### [facility] [address] [place] [address] Dr. Terence Love LYMPH # 1.0 103/ul Critically low 1.2-3.8 [facility] Comment on above: Performed By: #### C BC #### [facility] [address] [place] [address] Dr. Terence Love Lymphocytes/100 WBC (Bld) 16.3 % Critically low 20.5-60.0 [facility] Comment on above: Performed By: #### C BC #### [facility] [address] [place] [address] Dr. Terence Love MANUAL DIFF REQ NO Normal [facility] Comment on above: Performed By: #### C BC #### [facility] [address] [address] [address] Terence Love MCH (RBC) [Entitic mass] 29.3 pg Normal 25.9-34.0 [facility] Comment on above: Performed By: #### C BC #### [facility] [address] [place] [address] Dr. Terence Love MCHC (RBC) [Mass/Vol] 31.9 g/dL Normal 29.9-35.2 [facility] Comment on above: Performed By: #### C BC #### [facility] [address] [place] [address] Dr. Terence Love MCV (RBC) [Entitic vol] 92.1 fL Normal 80.0-94.0 [facility] Comment on above: Performed By: #### C BC #### [facility] [address] [place] [address] Dr. Terence Love MONO # 0.6 103/ul Normal 0.3-0.8 [facility] Comment on above: Performed By: #### C BC #### [facility] [address] [place] [address] Dr. Terence Love Monocytes/100 WBC (Bld) 9.3 % Normal 1.7-12.0 [facility] Comment on above: Performed By: #### C BC #### [facility] [address] [place] [address] Dr. Terence Love NEUT # 4.4 103/ul Normal 1.4-6.5 [facility] Comment on above: Performed By: #### C BC #### [facility] [address] [place] [address] Dr. Terence Love Neutrophils/100 WBC (Bld) 71.6 % Normal 43.0-75.0 [facility] Comment on above: Performed By: #### C BC #### [facility] [address] [place] [address] Dr. Terence Love Platelet mean volume (Bld) [Entitic vol] 10.8 fL Normal 9.5-13.5 [facility] Comment on above: Performed By: #### C BC #### [facility] [address] [address] [address] Terence Love PLT 203 103/ul Normal 150-450 [facility] Comment on above: Performed By: #### C BC #### [facility] [address] [place] [address] Dr. Terence Love RBC 4.91 106/ul Normal 4.70-6.10 [facility] Comment on above: Performed By: #### C BC #### [facility] [address] [address] [address] Terence Love WBC 6.1 103/ul Normal 4.0-11.0 [facility] Comment on above: Performed By: #### C BC #### [facility] [address] [place] [address] Dr. Terence Love MAGNESIUMon 01-07-2022 Magnesium [Mass/Vol] 1.7 mg/dL Critically low 1.8-2.4 [facility] Comment on above: Performed By: #### M G, BMP, URIC, ALB, PHOS #### [facility] [address] [place] [address] Dr. Terence Love MICROALB CREAT RATIO RANDOMo n 01-07-2022 mALB 2.3 mg/L Normal <=30.0 [facility] Comment on above: Performed By: #### M CRR #### [facility] [address] [place] [address] Dr. Terence Love MALB CR RATIO 18.9 mg/g Normal 0.0-29.9 [facility] Comment on above: Performed By: #### M CRR #### [facility] [address] [place] [address] Dr. Terence FRASERB CR RATIO RANGE SEE BELOW Normal [facility] Comment on above: Result Comment: NO M ICROALBUMINURIA 0-29 MG/G CLINICAL MICROALBUMINURIA 30-300 MG/G MACROALBUMINURIA >300 MG/G Performed By: #### M CRR #### [facility] [address] [place], [place] [id number] Dr. Terence Love URINE CREAT 121.78 mg/dL Normal 20.00-300.00 [facility] Comment on above: Performed By: #### M CRR #### [facility] [address] [place] [address] Dr. Terence Love PHOSPHORUSon 01-07-2022 Phosphate [Mass/Vol] 4.2 mg/dL Normal 2.6-4.7 [facility] Comment on above: Performed By: #### M G, BMP, URIC, ALB, PHOS #### [facility] [address] [place] [address] Dr. Terence Love PROF CHEM 8 (BAS METB)on Anion gap [Moles/Vol] 11.0 mmol/L Normal [facility] Comment on above: Performed By: #### M G, BMP, URIC, ALB, PHOS #### [facility] [address] [place] [address] Dr. Terence Love Calcium [Mass/Vol] 9.2 mg/dL Normal 8.5-10.1 [facility] Comment on above: Performed By: #### M G, BMP, URIC, ALB, PHOS #### [facility] [address] [place] [address] Dr. Terence Love Chloride [Moles/Vol] 102 mmol/L Normal 98-107 [facility] Comment on above: Performed By: #### M G, BMP, URIC, ALB, PHOS #### [facility] [address] [place] [address] Dr. Terence Love CO2 [Moles/Vol] 29.2 mmol/L Normal 21.0-32.0 [facility] Comment on above: Performed By: #### M G, BMP, URIC, ALB, PHOS #### [facility] [address] [place] [address] Dr. Terence Love Creatinine [Mass/Vol] 1.58 mg/dL Critically high 0.70-1.30 [facility] Comment on above: Performed By: #### M G, BMP, URIC, ALB, PHOS #### [facility] [address] [place] [address] Dr. Terence Love EGFR-AF COLOMBIAN 52 mL/min/1.73m2 Critically low >=60 [facility] Comment on above: Performed By: #### M G, BMP, URIC, ALB, PHOS #### [facility] [address] [place] [address] Dr. Terence Love EGFR-NON AF COLOMBIAN 43 mL/min/1.73m2 Critically low >=60 [facility] Comment on above: Performed By: #### M G, BMP, URIC, ALB, PHOS #### [facility] [address] [place] [address] Dr. Terence Love Glucose [Mass/Vol] 220 mg/dL Critically high 74-106 T [facility] Comment on above: Performed By: #### M G, BMP, URIC, ALB, PHOS #### [facility] [address] [place] [address] Dr. Terence Love Potassium [Moles/Vol] 4.9 mmol/L Normal 3.5-5.1 [facility] Comment on above: Performed By: #### M G, BMP, URIC, ALB, PHOS #### [facility] [address] [place] [address] Dr. Terence Love Sodium [Moles/Vol] 138 mmol/L Normal 136-145 [facility] Comment on above: Performed By: #### M G, BMP, URIC, ALB, PHOS #### [facility] [address] [place] [address] Dr. Terence Love Urea nitrogen [Mass/Vol] 22.0 mg/dL Critically high 7.0-18.0 [facility] Comment on above: Performed By: #### M G, BMP, URIC, ALB, PHOS #### [facility] [address] [place] [address] Dr. Terence Love Urea nitrogen/Creatinine [Mass ratio] 13.9 mg/mg Normal [facility] Comment on above: Performed By: #### M G, BMP, URIC, ALB, PHOS #### [facility] [address] [address] [address] Terence Love UA RANDOMon 01-07-2022 Bilirubin Ql (U) Negative Normal NEGATIVE [facility] Comment on above: Performed By: #### M G, BMP, URIC, ALB, PHOS #### [facility] [address] [place] [address] Dr. Terence Love Clarity (U) CLEAR Normal CLEAR [facility] Comment on above: Performed By: #### M G, BMP, URIC, ALB, PHOS #### [facility] [address] [place] [address] Dr. Terence Love Color (U) YELLOW Normal YELLOW [facility] Comment on above: Performed By: #### M G, BMP, URIC, ALB, PHOS #### [facility] [address] [place] [address] Dr. Terence Love Glucose Ql (U) 250 mg/dl Abnormal NEGATIVE [facility] Comment on above: Performed By: #### M G, BMP, URIC, ALB, PHOS #### [facility] [address] [place] [address] Dr. Terence Love Hemoglobin Ql (U) Negative Normal NEGATIVE [facility] Comment on above: Performed By: #### M G, BMP, URIC, ALB, PHOS #### [facility] [address] [place] [address] Dr. Terence Love Ketones Ql (U) Negative Normal NEGATIVE [facility] Comment on above: Performed By: #### M G, BMP, URIC, ALB, PHOS #### [facility] [address] [place] [address] Dr. Terence Love LEUKOCYTES Negative Normal NEGATIVE [facility] Comment on above: Performed By: #### M G, BMP, URIC, ALB, PHOS #### [facility] [address] [place] [address] Dr. Terence Love Nitrite Ql (U) Negative Normal NEGATIVE [facility] Comment on above: Performed By: #### M G, BMP, URIC, ALB, PHOS #### [facility] [address] [place] [address] Dr. Terence Love pH (U) 5.5 [pH] Normal 5-9 [facility] Comment on above: Performed By: #### M G, BMP, URIC, ALB, PHOS #### [facility] [address] [place] [address] Dr. Terence Love SPEC GRAVITY 1.020 Normal 1.005-<=1.02 5 [facility] Comment on above: Performed By: #### M G, BMP, URIC, ALB, PHOS #### [facility] [address] [place] [address] Dr. Terence Love UA PROTEIN Negative Normal NEGATIVE/ TRACE [facility] Comment on above: Performed By: #### M G, BMP, URIC, ALB, PHOS #### [facility] [address] [place] [address] Dr. Terence Love Urobilinogen Qn (U) 0.2 {Cherise'U}/dL Normal 0.2 - 1. 0 [facility] Comment on above: Performed By: #### M G, BMP, URIC, ALB, PHOS #### [facility] [address] [place] [address] Dr. Terence Love URIC ACID SERUMon 01-07-2022 Urate [Mass/Vol] 5.7 mg/dL Normal 3.5-7.2 [facility] Comment on above: Performed By: #### M G, BMP, URIC, ALB, PHOS #### [facility] [address] [place] [address] Dr. Terence Love VITAMIN D 25 OHon 01-07-2022 VIT D 25-OH 32.1 ng/mL Normal [facility] Comment on above: Performed By: #### V ITAD #### [facility] [address] [place] [address] Dr. Terence Love VIT D RANGES SEE BELOW Normal [facility] Comment on above: Result Comment: <20 ng/mL Vit D deficient 20 - <30 ng/mL Vit D insufficient 30 - 100 ng/mL Vit D sufficient >100 ng/mL Potential Toxicity Performed By: #### V ITAD #### [facility] [address] [address] [address] Terence Love CBC W MANUAL DIFFon 12-17-19 22 ATYPICAL LYMPH # 0.29 103/ul Normal [facility] Comment on above: Performed By: #### M G, BMP, URIC, ALB, PHOS #### [facility] [address] [place] [address] Dr. Terence Love ATYPICAL LYMPH % 3 % Normal [facility] Comment on above: Performed By: #### M G, BMP, URIC, ALB, PHOS #### [facility] [address] [place] [address] Dr. Terence Love BAND # 0.2 103/ul Normal 0.0-0.3 [facility] Comment on above: Performed By: #### M G, BMP, URIC, ALB, PHOS #### [facility] [address] [place] [address] Dr. Terence Love BAND % 2 % Normal 0-5 [facility] Comment on above: Performed By: #### M G, BMP, URIC, ALB, PHOS #### [facility] [address] [place] [address] Dr. Terence Love BASOM # 0.00 103/ul Normal 0.00-0.10 [facility] Comment on above: Performed By: #### M G, BMP, URIC, ALB, PHOS #### [facility] [address] [place] [address] Dr. Terence Love BASOM % 0.0 % Critically low 0.2-2.0 [facility] Comment on above: Performed By: #### M G, BMP, URIC, ALB, PHOS #### [facility] [address] [place] [address] Dr. Terence Love BLAST # Normal [facility] Comment on above: Performed By: #### M G, BMP, URIC, ALB, PHOS #### [facility] [address] [place] [address] Dr. Terence Love BLAST % Normal [facility] Comment on above: Performed By: #### M G, BMP, URIC, ALB, PHOS #### [facility] [address] [place] [address] Dr. Terence Love CORRECTED WBC Normal 4.0-11.0 [facility] Comment on above: Performed By: #### M G, BMP, URIC, ALB, PHOS #### [facility] [address] [place] [address] Dr. Terence Love EOS # 0.00 103/ul Normal 0.00-0.70 [facility] Comment on above: Performed By: #### M G, BMP, URIC, ALB, PHOS #### [facility] [address] [place] [address] Dr. Terence Love EOS% 0.0 % Critically low 0.9-7.0 [facility] Comment on above: Performed By: #### M G, BMP, URIC, ALB, PHOS #### [facility] [address] [place] [address] Dr. Terence Love HCT 41.3 % Critically low 42.0-54.0 [facility] Comment on above: Performed By: #### M G, BMP, URIC, ALB, PHOS #### [facility] [address] [place] [address] Dr. Terence Love HGB 13.8 g/dl Critically low 14.0-18.0 [facility] Comment on above: Performed By: #### M G, BMP, URIC, ALB, PHOS #### [facility] [address] [place] [address] Dr. Terence Love LYMPHM # 0.19 103/ul Critically low 1.20-3.80 [facility] Comment on above: Performed By: #### M G, BMP, URIC, ALB, PHOS #### [facility] [address] [place] [address] Dr. Terence Love LYMPHM% 2.0 % Critically low 20.5-60.0 [facility] Comment on above: Performed By: #### M G, BMP, URIC, ALB, PHOS #### [facility] [address] [place] [address] Dr. Terence Love MCH 29.4 pg Normal 25.9-34.0 [facility] Comment on above: Performed By: #### M G, BMP, URIC, ALB, PHOS #### [facility] [address] [place] [address] Dr. Terence Love MCHC 33.4 g/dl Normal 29.9-35.2 [facility] Comment on above: Performed By: #### M G, BMP, URIC, ALB, PHOS #### [facility] [address] [address] [address] Terence Love MCV 87.9 fL Normal 80.0-94.0 [facility] Comment on above: Performed By: #### M G, BMP, URIC, ALB, PHOS #### [facility] [address] [place] [address] Dr. Terence Love METAMYELOCYTE # Normal [facility] Comment on above: Performed By: #### M G, BMP, URIC, ALB, PHOS #### [facility] [address] [place] [address] Dr. Terence Love METAMYELOCYTE % Normal [facility] Comment on above: Performed By: #### M G, BMP, URIC, ALB, PHOS #### [facility] [address] [place] [address] Dr. Terence Love MONOM# 0.10 103/ul Critically low 0.30-0.80 [facility] Comment on above: Performed By: #### M G, BMP, URIC, ALB, PHOS #### [facility] [address] [place] [address] Dr. Terence Love MONOM% 1.0 % Critically low 1.7-12.0 [facility] Comment on above: Performed By: #### M G, BMP, URIC, ALB, PHOS #### [facility] [address] [place] [address] Dr. Terence Love MPV 10.7 fL Normal 9.5-13.5 [facility] Comment on above: Performed By: #### M G, BMP, URIC, ALB, PHOS #### [facility] [address] [place] [address] Dr. Terence Love MYELOCYTE # Normal [facility] Comment on above: Performed By: #### M G, BMP, URIC, ALB, PHOS #### [facility] [address] [place] [address] Dr. Terence Love MYELOCYTE % Normal [facility] Comment on above: Performed By: #### M G, BMP, URIC, ALB, PHOS #### [facility] [address] [address] [address] Terence Love NRBC Normal [facility] Comment on above: Performed By: #### M G, BMP, URIC, ALB, PHOS #### [facility] [address] [place] [address] Dr. Terence Love PLT 214 103/ul Normal 150-450 [facility] Comment on above: Performed By: #### M G, BMP, URIC, ALB, PHOS #### [facility] [address] [place] [address] Dr. Terence Love RBC 4.70 106/ul Normal 4.70-6.10 [facility] Comment on above: Performed By: #### M G, BMP, URIC, ALB, PHOS #### [facility] [address] [place] [address] Dr. Terence Love RDW 13.2 % Normal 11.0-15.0 [facility] Comment on above: Performed By: #### M G, BMP, URIC, ALB, PHOS #### [facility] [address] [place] [address] Dr. Terence Love SEG # 8.83 103/ul Critically high 1.40-6.50 [facility] Comment on above: Performed By: #### M G, BMP, URIC, ALB, PHOS #### [facility] [address] [place] [address] Dr. Terence Love SEG % 92.0 % Critically high 43.0-75.0 [facility] Comment on above: Performed By: #### M G, BMP, URIC, ALB, PHOS #### [facility] [address] [address] [address] Terence Love WBC 9.6 103/ul Normal 4.0-11.0 [facility] Comment on above: Performed By: #### M G, BMP, URIC, ALB, PHOS #### [facility] [address] [place] [address] Dr. Terence Love PROF CHEM 8 (BAS METB)on Anion gap [Moles/Vol] 13.7 mmol/L Normal [facility] Comment on above: Performed By: #### M G, BMP, URIC, ALB, PHOS #### [facility] [address] [place] [address] Dr. Terence Love Calcium [Mass/Vol] 9.1 mg/dL Normal 8.5-10.1 [facility] Comment on above: Performed By: #### M G, BMP, URIC, ALB, PHOS #### [facility] [address] [place] [address] Dr. Terence Love Chloride [Moles/Vol] 102 mmol/L Normal 98-107 [facility] Comment on above: Performed By: #### M G, BMP, URIC, ALB, PHOS #### [facility] [address] [place] [address] Dr. Terence Love CO2 [Moles/Vol] 25.2 mmol/L Normal 21.0-32.0 [facility] Comment on above: Performed By: #### M G, BMP, URIC, ALB, PHOS #### [facility] [address] [place] [address] Dr. Terence Love Creatinine [Mass/Vol] 1.57 mg/dL Critically high 0.70-1.30 [facility] Comment on above: Performed By: #### M G, BMP, URIC, ALB, PHOS #### [facility] [address] [place] [address] Dr. Terence Love EGFR-AF COLOMBIAN 52 mL/min/1.73m2 Critically low >=60 [facility] Comment on above: Performed By: #### M G, BMP, URIC, ALB, PHOS #### [facility] [address] [place] [address] Dr. Terence Love EGFR-NON AF COLOMBIAN 43 mL/min/1.73m2 Critically low >=60 [facility] Comment on above: Performed By: #### M G, BMP, URIC, ALB, PHOS #### [facility] [address] [place] [address] Dr. Terence Love Glucose [Mass/Vol] 193 mg/dL Critically high 74-106 T [facility] Comment on above: Performed By: #### M G, BMP, URIC, ALB, PHOS #### [facility] [address] [place] [address] Dr. Terence Love Potassium [Moles/Vol] 3.9 mmol/L Normal 3.5-5.1 [facility] Comment on above: Performed By: #### M G, BMP, URIC, ALB, PHOS #### [facility] [address] [place] [address] Dr. Terence Love Sodium [Moles/Vol] 137 mmol/L Normal 136-145 [facility] Comment on above: Performed By: #### M G, BMP, URIC, ALB, PHOS #### [facility] [address] [place] [address] Dr. Terence Love Urea nitrogen [Mass/Vol] 26.0 mg/dL Critically high 7.0-18.0 [facility] Comment on above: Performed By: #### M G, BMP, URIC, ALB, PHOS #### [facility] [address] [place] [address] Dr. Terence Love Urea nitrogen/Creatinine [Mass ratio] 16.6 mg/mg Normal [facility] Comment on above: Performed By: #### M G, BMP, URIC, ALB, PHOS #### [facility] [address] [place] [address] Dr. Terence Love CBC AUTO DIFFon 12-15-2021 BASO # 0.0 103/ul Normal 0.0-0.1 [facility] Comment on above: Performed By: #### M G, BMP, URIC, ALB, PHOS #### [facility] [address] [place] [address] Dr. Terence Love Basophils/100 WBC (Bld) 0.4 % Normal 0.2-2.0 [facility] Comment on above: Performed By: #### M G, BMP, URIC, ALB, PHOS #### [facility] [address] [place] [address] Dr. Terence Love EO # 0.1 103/ul Normal 0.0-0.7 [facility] Comment on above: Performed By: #### M G, BMP, URIC, ALB, PHOS #### [facility] [address] [place] [address] Dr. Terence Love Eosinophils/100 WBC (Bld) 1.2 % Normal 0.9-7.0 [facility] Comment on above: Performed By: #### M G, BMP, URIC, ALB, PHOS #### [facility] [address] [place] [address] Dr. Terence Love Erythrocyte distribution width (RBC) [Ratio] 13.2 % Normal 11.0-15.0 [facility] Comment on above: Performed By: #### M G, BMP, URIC, ALB, PHOS #### [facility] [address] [place] [address] Dr. Terence Love Hematocrit (Bld) [Volume fraction] 43.3 % Normal 42.0-54.0 [facility] Comment on above: Performed By: #### M G, BMP, URIC, ALB, PHOS #### [facility] [address] [place] [address] Dr. Terence Love Hemoglobin (Bld) [Mass/Vol] 14.1 g/dL Normal 14.0-18.0 [facility] Comment on above: Performed By: #### M G, BMP, URIC, ALB, PHOS #### [facility] [address] [place] [address] Dr. Terence Love IG # 0.02 10e3/ul Normal 0.00-0.03 [facility] Comment on above: Performed By: #### M G, BMP, URIC, ALB, PHOS #### [facility] [address] [place] [address] Dr. Terence Love IG % 0.3 % Normal 0.0-0.5 [facility] Comment on above: Performed By: #### M G, BMP, URIC, ALB, PHOS #### [facility] [address] [place] [address] Dr. Terence Love LYMPH # 1.3 103/ul Normal 1.2-3.8 [facility] Comment on above: Performed By: #### M G, BMP, URIC, ALB, PHOS #### [facility] [address] [place] [address] Dr. Terence Love Lymphocytes/100 WBC (Bld) 18.0 % Critically low 20.5-60.0 [facility] Comment on above: Performed By: #### M G, BMP, URIC, ALB, PHOS #### [facility] [address] [place] [address] Dr. Terence Love MANUAL DIFF REQ NO Normal [facility] Comment on above: Performed By: #### M G, BMP, URIC, ALB, PHOS #### [facility] [address] [place] [address] Dr. Terence Love MCH (RBC) [Entitic mass] 29.4 pg Normal 25.9-34.0 [facility] Comment on above: Performed By: #### M G, BMP, URIC, ALB, PHOS #### [facility] [address] [place] [address] Dr. Terence Love MCHC (RBC) [Mass/Vol] 32.6 g/dL Normal 29.9-35.2 [facility] Comment on above: Performed By: #### M G, BMP, URIC, ALB, PHOS #### [facility] [address] [place] [address] Dr. Terence Love MCV (RBC) [Entitic vol] 90.2 fL Normal 80.0-94.0 [facility] Comment on above: Performed By: #### M G, BMP, URIC, ALB, PHOS #### [facility] [address] [place] [address] Dr. Terence Love MONO # 0.8 103/ul Normal 0.3-0.8 [facility] Comment on above: Performed By: #### M G, BMP, URIC, ALB, PHOS #### [facility] [address] [place] [address] Dr. Terence Love Monocytes/100 WBC (Bld) 11.2 % Normal 1.7-12.0 [facility] Comment on above: Performed By: #### M G, BMP, URIC, ALB, PHOS #### [facility] [address] [place] [address] Dr. Terence Love NEUT # 5.0 103/ul Normal 1.4-6.5 [facility] Comment on above: Performed By: #### M G, BMP, URIC, ALB, PHOS #### [facility] [address] [place] [address] Dr. Terence Love Neutrophils/100 WBC (Bld) 68.9 % Normal 43.0-75.0 [facility] Comment on above: Performed By: #### M G, BMP, URIC, ALB, PHOS #### [facility] [address] [place] [address] Dr. Terence Love Platelet mean volume (Bld) [Entitic vol] 10.5 fL Normal 9.5-13.5 [facility] Comment on above: Performed By: #### M G, BMP, URIC, ALB, PHOS #### [facility] [address] [place] [address] Dr. Terence Love PLT 211 103/ul Normal 150-450 [facility] Comment on above: Performed By: #### M G, BMP, URIC, ALB, PHOS #### [facility] [address] [place] [address] Dr. Terence Love RBC 4.80 106/ul Normal 4.70-6.10 [facility] Comment on above: Performed By: #### M G, BMP, URIC, ALB, PHOS #### [facility] [address] [place] [address] Dr. Terence Love WBC 7.3 103/ul Normal 4.0-11.0 [facility] Comment on above: Performed By: #### M G, BMP, URIC, ALB, PHOS #### [facility] [address] [address] STROKE HEAD WOon [...] by: GEOVANNA URBINA Date: 2021-12-15 14:54 Normal [facility] CTA HEAD WO W CONon 12-16-19 22 [...] of the carotid arteries, vertebral arteries, or viejas of Enrique. 2. 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 3. No specific findings to account for patient's symptoms. Electronically authenticated by: PAPITO GUAMAN Date: 2021-12-15 17:12 Normal [facility] Covid-19 PCR (CVDTBH)on 12-01 SARS-CoV-2 (COVID-19) RNA KOLTON+probe Ql (Unsp spec) Not detected Normal NOT DETECTED [facility] Comment on above: Result Comment: When [...] for this test is supported by the [place] of Health and Human Service's declaration that [...] M G, BMP, URIC, ALB, PHOS #### [facility] [address] [place] [address] Dr. Terence Love ER URINE PROFILEon 2 Bilirubin Ql (U) Negative Normal NEGATIVE [facility] Comment on above: Performed By: #### M G, BMP, URIC, ALB, PHOS #### [facility] [address] [place] [address] Dr. Terence Love Clarity (U) CLEAR Normal CLEAR [facility] Comment on above: Performed By: #### M G, BMP, URIC, ALB, PHOS #### [facility] [address] [address] [address] Terence Love Color (U) LT. YELLOW Normal YELLOW [facility] Comment on above: Performed By: #### M G, BMP, URIC, ALB, PHOS #### [facility] [address] [place] [address] Dr. Terence TORIBIO A micrscopic examination will be performed if indicated. Normal [facility] Comment on above: Performed By: #### M G, BMP, URIC, ALB, PHOS #### [facility] [address] [place] [address] Dr. Terence Love Glucose Ql (U) 100 mg/dl Abnormal NEGATIVE [facility] Comment on above: Performed By: #### M G, BMP, URIC, ALB, PHOS #### [facility] [address] [place] [address] Dr. Terence Love Hemoglobin Ql (U) Negative Normal NEGATIVE [facility] Comment on above: Performed By: #### M G, BMP, URIC, ALB, PHOS #### [facility] [address] [address] [address] Terence Love Ketones Ql (U) Negative Normal NEGATIVE [facility] Comment on above: Performed By: #### M G, BMP, URIC, ALB, PHOS #### [facility] [address] [place] [address] Dr. Terence Love LEUKOCYTES Negative Normal NEGATIVE [facility] Comment on above: Performed By: #### M G, BMP, URIC, ALB, PHOS #### [facility] [address] [place] [address] Dr. Terence Love Nitrite Ql (U) Negative Normal NEGATIVE [facility] Comment on above: Performed By: #### M G, BMP, URIC, ALB, PHOS #### [facility] [address] [place] [address] Dr. Terence Love pH (U) 5.5 [pH] Normal 5-9 [facility] Comment on above: Performed By: #### M G, BMP, URIC, ALB, PHOS #### [facility] [address] [place] [address] Dr. Terence Love SPEC GRAVITY 1.010 Normal 1.005-<=1.02 5 [facility] Comment on above: Performed By: #### M G, BMP, URIC, ALB, PHOS #### [facility] [address] [place] [address] Dr. Terence Love UA PROTEIN Negative Normal NEGATIVE/ TRACE [facility] Comment on above: Performed By: #### M G, BMP, URIC, ALB, PHOS #### [facility] [address] [place] [address] Dr. Terence Love UR MICRO IND NOT INDICATED Normal [facility] Comment on above: Performed By: #### M G, BMP, URIC, ALB, PHOS #### [facility] [address] [place] [address] Dr. Terence Love Urobilinogen Qn (U) 0.2 {Cherise'U}/dL Normal 0.2 - 1. 0 [facility] Comment on above: Performed By: #### M G, BMP, URIC, ALB, PHOS #### [facility] [address] [place] [address] Dr. Terence Love POINT OF CARE GLUCOSEon 12-01 Glucose [Mass/Vol] 124 mg/dL Critically high 74-106 T [facility] Comment on above: Performed By: #### M G, BMP, URIC, ALB, PHOS #### [facility] [address] [place] [address] Dr. Terence Love PROF 14(COMP METB)on 022 Albumin [Mass/Vol] 4.0 g/dL Normal 3.4-5.0 [facility] Comment on above: Performed By: #### M G, BMP, URIC, ALB, PHOS #### [facility] [address] [place] [address] Dr. Terence Love Albumin/Globulin [Mass ratio] 1.1 {ratio} Normal [facility] Comment on above: Performed By: #### M G, BMP, URIC, ALB, PHOS #### [facility] [address] [place] [address] Dr. Terence Love ALP [Catalytic activity/Vol] 81 U/L Normal 46-116 [facility] Comment on above: Performed By: #### M G, BMP, URIC, ALB, PHOS #### [facility] [address] [place] [address] Dr. Terence Love ALT [Catalytic activity/Vol] 29 U/L Normal 16-63 [facility] Comment on above: Performed By: #### M G, BMP, URIC, ALB, PHOS #### [facility] [address] [place] [address] Dr. Terence Love Anion gap [Moles/Vol] 14.5 mmol/L Normal [facility] Comment on above: Performed By: #### M G, BMP, URIC, ALB, PHOS #### [facility] [address] [place] [address] Dr. Terence Love AST [Catalytic activity/Vol] 18 U/L Normal 15-37 [facility] Comment on above: Performed By: #### M G, BMP, URIC, ALB, PHOS #### [facility] [address] [place] [address] Dr. Terence Love Bilirubin [Mass/Vol] 0.8 mg/dL Normal 0.2-1.0 [facility] Comment on above: Performed By: #### M G, BMP, URIC, ALB, PHOS #### [facility] [address] [place] [address] Dr. Terence Love Calcium [Mass/Vol] 9.3 mg/dL Normal 8.5-10.1 [facility] Comment on above: Performed By: #### M G, BMP, URIC, ALB, PHOS #### [facility] [address] [place] [address] Dr. Terence Love Chloride [Moles/Vol] 102 mmol/L Normal 98-107 [facility] Comment on above: Performed By: #### M G, BMP, URIC, ALB, PHOS #### [facility] [address] [place] [address] Dr. Terence Love CO2 [Moles/Vol] 26.7 mmol/L Normal 21.0-32.0 [facility] Comment on above: Performed By: #### M G, BMP, URIC, ALB, PHOS #### [facility] [address] [place] [address] Dr. Terence Love Creatinine [Mass/Vol] 1.56 mg/dL Critically high 0.70-1.30 [facility] Comment on above: Performed By: #### M G, BMP, URIC, ALB, PHOS #### [facility] [address] [place] [address] Dr. Terence Love EGFR-AF COLOMBIAN 52 mL/min/1.73m2 Critically low >=60 [facility] Comment on above: Performed By: #### M G, BMP, URIC, ALB, PHOS #### [facility] [address] [place] [address] Dr. Terence Love EGFR-NON AF COLOMBIAN 43 mL/min/1.73m2 Critically low >=60 [facility] Comment on above: Performed By: #### M G, BMP, URIC, ALB, PHOS #### [facility] [address] [place] [address] Dr. Terence Love Globulin (S) [Mass/Vol] 3.6 g/dL Normal [facility] Comment on above: Performed By: #### M G, BMP, URIC, ALB, PHOS #### [facility] [address] [place] [address] Dr. Terence Love Glucose [Mass/Vol] 179 mg/dL Critically high 74-106 [facility] Comment on above: Performed By: #### M G, BMP, URIC, ALB, PHOS #### [facility] [address] [place] [address] Dr. Terence Love Potassium [Moles/Vol] 4.2 mmol/L Normal 3.5-5.1 [facility] Comment on above: Performed By: #### M G, BMP, URIC, ALB, PHOS #### [facility] [address] [place] [address] Dr. Terence Love Protein [Mass/Vol] 7.6 g/dL Normal 6.4-8.2 [facility] Comment on above: Performed By: #### M G, BMP, URIC, ALB, PHOS #### [facility] [address] [place] [address] Dr. Terence Love Sodium [Moles/Vol] 139 mmol/L Normal 136-145 [facility] Comment on above: Performed By: #### M G, BMP, URIC, ALB, PHOS #### [facility] [address] [place] [address] Dr. Terence Love Urea nitrogen [Mass/Vol] 26.0 mg/dL Critically high 7.0-18.0 [facility] Comment on above: Performed By: #### M G, BMP, URIC, ALB, PHOS #### [facility] [address] [place] [address] Dr. Terence Love Urea nitrogen/Creatinine [Mass ratio] 16.7 mg/mg Normal [facility] Comment on above: Performed By: #### M G, BMP, URIC, ALB, PHOS #### [facility] [address] [place] [address] Dr. Terence Love PROTIMEon 12-15-2021 INR Coag (PPP) [Relative time] 1.01 {INR} Normal [facility] Comment on above: Performed By: #### M G, BMP, URIC, ALB, PHOS #### [facility] [address] [place] [address] Dr. Terence Love INR GUIDELINES SEE BELOW Normal [facility] Comment on above: Result Comment: THERESA RED INR: 2.0 - 3.0 CONDITIONS NOT LISTED BELOW 2.5 - 3.5 FOR PROSTHETIC HEART VALVE REPLACEMENT 2.5 - 3.5 RECURRENT THROMBOSIS Performed By: #### M G, BMP, URIC, ALB, PHOS #### [facility] [address] [place] [address] Dr. Terence Love PT Coag (PPP) [Time] 10.9 s Normal 9.0-11.6 [facility] Comment on above: Performed By: #### M G, BMP, URIC, ALB, PHOS #### [facility] [address] [place] [address] Dr. Terence Love PTTon 12-15-2021 aPTT Coag (Bld) [Time] 26.8 s Normal 22.3-36.2 [facility] Comment on above: Performed By: #### M G, BMP, URIC, ALB, PHOS #### [facility] [address] [place] [address] Dr. Terence Love TROPONIN, HIGH SENSITIVITYon 12-15-2021 HSTROP 6.0 pg/mL Normal 4.0-76.1 [facility] Comment on above: Result Comment: CUT- OFF POINTS HAVE BEEN ESTABLISHED BASED ON THE FOURTH UNIVERSAL DEFINITIONS OF MYOCARDIAL INFARCTION. THE UPPER REFERENCE LIMIT (URL) OF TROPONIN, DEFINED THE 99TH PERCENTILE OF cTnI DISTRIBUTION IN A REFERENCE POPULATION, HAS BEEN CONFIRMED THE DECISION THRESHOLD FOR TX DIAGNOSIS. Performed By: #### M G, BMP, URIC, ALB, PHOS #### [facility] [address] [place] [address] Dr. Terence Love TSHon 12-15-2021 TSH 1.163 uIU/mL Normal 0.358-3.740 [facility] Comment on above: Performed By: #### M G, BMP, URIC, ALB, PHOS #### [facility] [address] [place] [address] Dr. Terence Love XR CHEST 2 Von [...] GEORGIE CHARLES Date: 2021-12-15 14:50 Normal [facility] CBC AUTO DIFFon 12-14-2021 BASO # 0.0 103/ul Normal 0.0-0.1 [facility] Comment on above: Performed By: #### M G, BMP, URIC, ALB, PHOS #### [facility] [address] [place] [address] Dr. Terence Love Basophils/100 WBC (Bld) 0.6 % Normal 0.2-2.0 [facility] Comment on above: Performed By: #### M G, BMP, URIC, ALB, PHOS #### [facility] [address] [place] [address] Dr. Terence Love EO # 0.1 103/ul Normal 0.0-0.7 [facility] Comment on above: Performed By: #### M G, BMP, URIC, ALB, PHOS #### [facility] [address] [place] [address] Dr. Terence Love Eosinophils/100 WBC (Bld) 1.4 % Normal 0.9-7.0 [facility] Comment on above: Performed By: #### M G, BMP, URIC, ALB, PHOS #### [facility] [address] [place] [address] Dr. Terence Love Erythrocyte distribution width (RBC) [Ratio] 13.2 % Normal 11.0-15.0 [facility] Comment on above: Performed By: #### M G, BMP, URIC, ALB, PHOS #### [facility] [address] [place] [address] Dr. Terence Love Hematocrit (Bld) [Volume fraction] 40.6 % Critically low 42.0-54.0 [facility] Comment on above: Performed By: #### M G, BMP, URIC, ALB, PHOS #### [facility] [address] [place] [address] Dr. Terence Love Hemoglobin (Bld) [Mass/Vol] 13.3 g/dL Critically low 14.0-18.0 [facility] Comment on above: Performed By: #### M G, BMP, URIC, ALB, PHOS #### [facility] [address] [place] [address] Dr. Terence Love IG # 0.03 10e3/ul Normal 0.00-0.03 [facility] Comment on above: Performed By: #### M G, BMP, URIC, ALB, PHOS #### [facility] [address] [place] [address] Dr. Terence Love IG % 0.4 % Normal 0.0-0.5 [facility] Comment on above: Performed By: #### M G, BMP, URIC, ALB, PHOS #### [facility] [address] [place] [address] Dr. Terence Love LYMPH # 1.2 103/ul Normal 1.2-3.8 [facility] Comment on above: Performed By: #### M G, BMP, URIC, ALB, PHOS #### [facility] [address] [place] [address] Dr. Terence Love Lymphocytes/100 WBC (Bld) 17.5 % Critically low 20.5-60.0 [facility] Comment on above: Performed By: #### M G, BMP, URIC, ALB, PHOS #### [facility] [address] [place] [address] Dr. Terence Love MANUAL DIFF REQ NO Normal [facility] Comment on above: Performed By: #### M G, BMP, URIC, ALB, PHOS #### [facility] [address] [place] [address] Dr. Terence Love MCH (RBC) [Entitic mass] 29.6 pg Normal 25.9-34.0 [facility] Comment on above: Performed By: #### M G, BMP, URIC, ALB, PHOS #### [facility] [address] [place] [address] Dr. Terence Love MCHC (RBC) [Mass/Vol] 32.8 g/dL Normal 29.9-35.2 [facility] Comment on above: Performed By: #### M G, BMP, URIC, ALB, PHOS #### [facility] [address] [place] [address] Dr. Terence Love MCV (RBC) [Entitic vol] 90.4 fL Normal 80.0-94.0 [facility] Comment on above: Performed By: #### M G, BMP, URIC, ALB, PHOS #### [facility] [address] [place] [address] Dr. Terence Love MONO # 0.7 103/ul Normal 0.3-0.8 [facility] Comment on above: Performed By: #### M G, BMP, URIC, ALB, PHOS #### [facility] [address] [place] [address] Dr. Terence Love Monocytes/100 WBC (Bld) 10.4 % Normal 1.7-12.0 [facility] Comment on above: Performed By: #### M G, BMP, URIC, ALB, PHOS #### [facility] [address] [place] [address] Dr. Terence Love NEUT # 4.8 103/ul Normal 1.4-6.5 [facility] Comment on above: Performed By: #### M G, BMP, URIC, ALB, PHOS #### [facility] [address] [place] [address] Dr. Terence Love Neutrophils/100 WBC (Bld) 69.7 % Normal 43.0-75.0 [facility] Comment on above: Performed By: #### M G, BMP, URIC, ALB, PHOS #### [facility] [address] [place] [address] Dr. Terence Love Platelet mean volume (Bld) [Entitic vol] 11.0 fL Normal 9.5-13.5 [facility] Comment on above: Performed By: #### M G, BMP, URIC, ALB, PHOS #### [facility] [address] [address] [address] Terence Love PLT 202 103/ul Normal 150-450 [facility] Comment on above: Performed By: #### M G, BMP, URIC, ALB, PHOS #### [facility] [address] [place] [address] Dr. Terence Love RBC 4.49 106/ul Critically low 4.70-6.10 [facility] Comment on above: Performed By: #### M G, BMP, URIC, ALB, PHOS #### [facility] [address] [place] [address] Dr. Terence Love WBC 6.9 103/ul Normal 4.0-11.0 [facility] Comment on above: Performed By: #### M G, BMP, URIC, ALB, PHOS #### [facility] [address] [place] [address] Dr. Terence Love GLYCOHEMOGLOBIN A1Con 2021 ADA RECOMMENDATION SEE BELOW Normal [facility] Comment on above: Result Comment: ADA RECOMMENDED LIMIT 4.0 - 6.0 ADA THERAPEUTIC TARGET < 7.0 ACTION SUGGESTED > 7.0 Performed By: #### M G, BMP, URIC, ALB, PHOS #### [facility] [address] [place] [address] Dr. Terence Love Glucose [Mass/Vol] 180 mg/dL Normal [facility] Comment on above: Performed By: #### M G, BMP, URIC, ALB, PHOS #### [facility] [address] [place] [address] Dr. Terence Love HbA1c (Bld) [Mass fraction] 7.9 % Critically high 4.5-6.2 [facility] Comment on above: Performed By: #### M G, BMP, URIC, ALB, PHOS #### [facility] [address] [place] [address] Dr. Terence Love LIPID PROFILEon 12-14-2021 CHOL-HDL RATIO NORM SEE BELOW Normal [facility] Comment on above: Result Comment: 3.3 - 4.4 LOW RISK 4.4 - 7.1 AVERAGE RISK 7.1 - 11.0 MODERATE RISK >11.0 HIGH RISK Performed By: #### M G, BMP, URIC, ALB, PHOS #### [facility] [address] [address] [address] Terence Love Cholesterol [Mass/Vol] 156 mg/dL Normal <=200 [facility] Comment on above: Performed By: #### M G, BMP, URIC, ALB, PHOS #### [facility] [address] [place] [address] Dr. Terence Love Cholesterol in HDL [Mass/Vol] 55 mg/dL Normal 40-60 [facility] Comment on above: Performed By: #### M G, BMP, URIC, ALB, PHOS #### [facility] [address] [place] [address] Dr. Terence Love Cholesterol in LDL [Mass/Vol] 76.2 mg/dL Normal [facility] Comment on above: Performed By: #### M G, BMP, URIC, ALB, PHOS #### [facility] [address] [place] [address] Dr. Terence Love Cholesterol.total/Dotty sterol in HDL [Mass ratio] 2.8 {ratio} Normal [facility] Comment on above: Performed By: #### M G, BMP, URIC, ALB, PHOS #### [facility] [address] [place] [address] Dr. Terence Love HDL NORMAL > or = 60 mg/dl - LOW CARDIOVASCULAR RISK <40 mg/dl - HIGH CARDIOVASCULAR RISK Normal [facility] Comment on above: Performed By: #### M G, BMP, URIC, ALB, PHOS #### [facility] [address] [place] [address] Dr. Terence Love LDL CALC NORMAL SEE BELOW Normal [facility] Comment on above: Result Comment: <100 mg/dl OPTIMAL 100 - 129 mg/dl NEAR OR ABOVE OPTIMAL 130 - 159 mg/dl BORDERLINE HIGH 160 - 189 mg/dl HIGH >190 mg/dl VERY HIGH Performed By: #### M G, BMP, URIC, ALB, PHOS #### [facility] [address] [place] [address] Dr. Terence Love Triglyceride [Mass/Vol] 124 mg/dL Normal <=150 T [facility] Comment on above: Performed By: #### M G, BMP, URIC, ALB, PHOS #### [facility] [address] [address] [address] Terence Love VLDL CALC 24.8 mg/dL Normal [facility] Comment on above: Performed By: #### M G, BMP, URIC, ALB, PHOS #### [facility] [address] [address] [address] Terence Love MICROALBUMIN, RAND URon 06- mALB 1.3 mg/L Normal <=30.0 [facility] Comment on above: Performed By: #### M G, BMP, URIC, ALB, PHOS #### [facility] [address] [place] [address] Dr. Terence Love PROF CHEM 8 (BAS METB)on Anion gap [Moles/Vol] 8.9 mmol/L Normal [facility] Comment on above: Performed By: #### M G, BMP, URIC, ALB, PHOS #### [facility] [address] [place] [address] Dr. Terence Love Calcium [Mass/Vol] 8.6 mg/dL Normal 8.5-10.1 [facility] Comment on above: Performed By: #### M G, BMP, URIC, ALB, PHOS #### [facility] [address] [address] [address] Terence Love Chloride [Moles/Vol] 104 mmol/L Normal 98-107 [facility] Comment on above: Performed By: #### M G, BMP, URIC, ALB, PHOS #### [facility] [address] [place] [address] Dr. Terence Love CO2 [Moles/Vol] 30.5 mmol/L Normal 21.0-32.0 [facility] Comment on above: Performed By: #### M G, BMP, URIC, ALB, PHOS #### [facility] [address] [place] [address] Dr. Terence Love Creatinine [Mass/Vol] 1.71 mg/dL Critically high 0.70-1.30 [facility] Comment on above: Performed By: #### M G, BMP, URIC, ALB, PHOS #### [facility] [address] [place] [address] Dr. Terence Love EGFR-AF COLOMBIAN 47 mL/min/1.73m2 Critically low >=60 [facility] Comment on above: Performed By: #### M G, BMP, URIC, ALB, PHOS #### [facility] [address] [place] [address] Dr. Terence Love EGFR-NON AF COLOMBIAN 39 mL/min/1.73m2 Critically low >=60 [facility] Comment on above: Performed By: #### M G, BMP, URIC, ALB, PHOS #### [facility] [address] [place] [address] Dr. Terence Love Glucose [Mass/Vol] 214 mg/dL Critically high 74-106 [facility] Comment on above: Performed By: #### M G, BMP, URIC, ALB, PHOS #### [facility] [address] [place] [address] Dr. Terence Love Potassium [Moles/Vol] 4.4 mmol/L Normal 3.5-5.1 [facility] Comment on above: Performed By: #### M G, BMP, URIC, ALB, PHOS #### [facility] [address] [address] [address] Terence Love Sodium [Moles/Vol] 139 mmol/L Normal 136-145 [facility] Comment on above: Performed By: #### M G, BMP, URIC, ALB, PHOS #### [facility] [address] [address] [address] Terence Love Urea nitrogen [Mass/Vol] 32.0 mg/dL Critically high 7.0-18.0 [facility] Comment on above: Performed By: #### M G, BMP, URIC, ALB, PHOS #### [facility] [address] [place] [address] Dr. Terence Love Urea nitrogen/Creatinine [Mass ratio] 18.7 mg/mg Normal [facility] Comment on above: Performed By: #### M G, BMP, URIC, ALB, PHOS #### [facility] [address] [place], [place] [address] Dr. Terence Normann 12-14-2021 AST [Catalytic activity/Vol] 14 U/L Critically low 15-37 [facility] Comment on above: Performed By: #### M G, BMP, URIC, ALB, PHOS #### [facility] [address] [place], [place] [address] Dr. Terence Love SGPTon 12-14-2021 ALT [Catalytic activity/Vol] 27 U/L Normal 16-63 [facility] Comment on above: Performed By: #### M G, BMP, URIC, ALB, PHOS #### [facility] [address] [place], [place] [address] Dr. Terence Love XR knee RT 4V*on 05-01-2021 XR knee RT 4V* [facility] [employer] Other XR knee RT 4V* [facility] [employer] Other XR knee RT 4V* [address] [place] [address] [employer] Other XR knee RT 4V* [place] [address] No rt [employer] Other XR knee RT 4V* [facility] [employer] Other XR knee RT 4V* Signed [employer] Other XR knee RT 4V* Patient: Jason Bartholomew MR#: [id number] Price [employer] Other XR knee RT 4V* [address] [employer] Other XR knee RT 4V* : 1945 Acct:[id number] [employer] Other XR knee RT 4V* Age/Sex: 75 / M ADM Date: 05/01/21 [employer] Other XR knee RT 4V* Loc: XDUCLY Room: Type: REG I [employer] Other XR knee RT 4V* Attending Dr: Sonali JUNG [employer] Other XR knee RT 4V* Ordering Provider: ERICH Rosen [employer] Other XR knee RT 4V* Date of Service: 05/01/21 [employer] Other XR knee RT 4V* XR/XR knee RT 4V*: Acute pain of right knee [employer] Other XR knee RT 4V* ([id number]) XR/XR ankle RT min 3V*: Acute pain of right knee;Acute right ankle pain [employer] Other XR knee RT 4V* Copies to: ERICH Rosen [employer] Other XR knee RT 4V* CLINICAL DATA: Patient was moving a box and slipped and fell yesterday. Lateral right ankle and [employer] Other XR knee RT 4V* medial right knee pain. [employer] Other XR knee RT 4V* RIGHT ANKLE - 3 views [employer] Other XR knee RT 4V* COMPARISON: None [facility] Other XR knee RT 4V* AP, lateral and oblique views were obtained. There is osteopenia. There is no evidence of [employer] Other XR knee RT 4V* fracture or dislocation. There are minor degenerative changes with spurring at the dorsum of the [employer] Other XR knee RT 4V* talus and calcaneal spurs. There is mild anterolateral soft tissue swelling. There is Conmio Other XR knee RT 4V* atherosclerotic disease. Conmio Other XR knee RT 4V* XR/XR ankle RT min 3V* Conmio Other XR knee RT 4V* IMPRESSION: Sociall Other XR knee RT 4V* NO DEFINITE ACUTE BONY INJURY. Conmio Other XR knee RT 4V* RIGHT KNEE - 4 views Conmio Other XR knee RT 4V* AP, lateral and both oblique views were obtained. There is no acute fracture or dislocation. There Conmio Other XR knee RT 4V* is mild narrowing of the medial tibiofemoral and patellofemoral joint compartments. There is mild Conmio Other XR knee RT 4V* marginal spurring. There is a trace amount of joint fluid. No focal soft tissue swelling is noted. Conmio Other XR knee RT 4V* OSTEOPENIA AND DEGENERATIVE CHANGES. Conmio Other XR knee RT 4V* NO ACUTE BONY INJURY. Conmio Other XR knee RT 4V* Impression dictated by: Char Jade M.D.05/01/2021 12:06 PM Conmio Other XR knee RT 4V* Dictation Location: [place] [address] Conmio Other XR knee RT 4V* Transcribed By: STEVEN 05/01/21 1206 Conmio Other XR knee RT 4V* Dictated By: Char Jade MD 05/01/21 1208 Conmio Other XR knee RT 4V* Signed By: Maven Other XR knee RT 4V* 05/01/[address] [facility] [employer] Other Cardiovascular Lab Reporton 06-14-2019 Cardiovascular Lab Report [facility] Patient Name: Jason Bartholomew [facility] Skip MR #: [id number] Department of Physician: Gilberto Manning M.D. Division of Service Date: 06/12/2019 Cardiology Birthdate: 1945 Adult Cardiovascular Room #: [id number] [facility] [address] [facility]. [place] [address] Cardiovascular Laboratory Report INDICATIONS: The patient is [...] Skip/Gilberto Manning M.D. Date Trans: 06/14/2019 10:16 A/bert [id number] cc: Idris Jose M.D. [address] [facility] [address] Normal [facility] BASIC METABOLIC PANELon 06-02 Calcium [Mass/Vol] 8.8 mg/dL Normal 8.6-10.3 [facility] Comment on above: Order Comment: No: D o not add to previous draw Performed By: #### 1 69, 40405 ####[facility] [facility] [place] [address], [facility] Chloride [Moles/Vol] 104 mmol/L Normal 98-107 [facility] Comment on above: Order Comment: No: D o not add to previous draw Performed By: #### 1 69, 20619 ####[facility] [facility] [place] [place] [address], [facility] CO2 [Moles/Vol] 28 mmol/L Normal 21-31 [facility] Comment on above: Order Comment: No: D o not add to previous draw Performed By: #### 1 69, 10700 ####[facility] [facility] [place] [address], [facility] Creatinine [Mass/Vol] 1.39 mg/dL High 0.70-1.30 [facility] Comment on above: Order Comment: No: D o not add to previous draw Performed By: #### 1 69, 38166 ####[facility] [facility] [place] [address], [facility] GFR/1.73 sq M predicted among blacks MDRD (S/P/Bld) [Vol rate/Area] 60 ml/min/1.73sq m Abnormal >60 [facility] Comment on above: Order Comment: No: D o not add to previous draw Result Comment: Calc ulation may not be valid for patients over 70 years Performed By: #### 1 69, 89736 ####[facility] [facility] GFR/1.73 sq M predicted among non-blacks MDRD (S/P/Bld) [Vol rate/Area] 50 ml/min/1.73sq m Abnormal >60 [facility] Comment on above: Order Comment: No: D o not add to previous draw Result Comment: Calc ulation may not be valid for patients over 70 years Performed By: #### 1 69, 58593 ####[facility] Glucose [Mass/Vol] 128 mg/dL High 70-100 [facility] Comment on above: Order Comment: No: D o not add to previous draw Performed By: #### 1 69, 76469 ####[facility] Potassium [Moles/Vol] 3.3 mmol/L Low 3.5-5.1 [facility] Comment on above: Order Comment: No: D o not add to previous draw Performed By: #### 1 69, 83731 ####[facility] Sodium [Moles/Vol] 143 mmol/L Normal 136-145 [facility] Comment on above: Order Comment: No: D o not add to previous draw Performed By: #### 1 69, 34006 ####[facility] Urea nitrogen [Mass/Vol] 40 mg/dL High 7-25 [facility] Comment on above: Order Comment: No: D o not add to previous draw Performed By: #### 1 69, 69357 ####[facility] [facility].[address] CBC COMPLETE BLOOD COUNTon 08-14-2018 Erythrocyte distribution width (RBC) [Ratio] 14.0 % Normal 11.5-15.0 [facility] Comment on above: Order Comment: No: D o not add to previous draw Dup Performed By: #### 5 0608 #### [facility] [address] [place] [address], [facility] Hematocrit (Bld) [Volume fraction] 30.5 % Low 39.0-50.0 [facility] Comment on above: Order Comment: No: D o not add to previous draw Dup Performed By: #### 5 0608 #### [facility] [address] [place] [address], [facility] Hemoglobin (Bld) [Mass/Vol] 9.9 g/dL Low 13.0-17.0 [facility] Comment on above: Order Comment: No: D o not add to previous draw Dup Performed By: #### 5 0608 #### [facility] [address] [place] [address], [facility] MCH (RBC) [Entitic mass] 30.0 pg Normal 27.0-33.0 [facility] Comment on above: Order Comment: No: D o not add to previous draw Dup Performed By: #### 5 0608 #### [facility] [address] [facility] [place] [address], [facility] MCHC (RBC) [Mass/Vol] 32.5 g/dL Normal 32.0-35.0 [facility] Comment on above: Order Comment: No: D o not add to previous draw Dup Performed By: #### 5 0608 #### [facility] [address] [place] [address], [facility] MCV (RBC) [Entitic vol] 92.4 fL Normal 82.0-98.0 T isabella [facility] Comment on above: Order Comment: No: D o not add to previous draw Dup Performed By: #### 5 0608 #### [facility] [address] [place] [address], [facility] Nucleated RBC/100 WBC (Bld) [Ratio] 0 % Normal 0-0 [facility] Comment on above: Order Comment: No: D o not add to previous draw Dup Performed By: #### 5 0608 #### [facility] [address] [place] [address], [facility] PLAT CNT 154 10*3/uL Normal 150-400 [facility] Comment on above: Order Comment: No: D o not add to previous draw Dup Performed By: #### 5 0608 #### [facility] [address] [place] [address], [facility] RBC (Bld) [#/Vol] 3.30 10*6/uL Low 4.20-5.70 [facility] Comment on above: Order Comment: No: D o not add to previous draw Dup Performed By: #### 5 0608 #### [facility] [address] [place] [address], [facility] WBC (Bld) [#/Vol] 11.68 10*3/uL High 4.00-10.60 [facility] Comment on above: Order Comment: No: D o not add to previous draw Dup Performed By: #### 5 0608 #### [facility] [address] [place] [id number], [facility] MAGNESIUM BLOODon 06-13-2019 Magnesium [Mass/Vol] 1.8 mg/dL Low 1.9-2.7 [facility] Comment on above: Order Comment: No: D o not add to previous draw Performed By: #### 8 7002 #### [facility] [address] [place] [address], [facility] POC GLUCOSE LABon 06-13-2019 Glucose [Mass/Vol] 341 mg/dL High 70-100 [facility] Comment on above: Performed By: #### 8 5499 #### [facility] [address] [place] [address], [place] Glucose [Mass/Vol] 124 mg/dL High 70-100 [facility] Comment on above: Performed By: #### 3 0738 #### [address] PORTABLE CHEST 1 VIEWon 06-02 PORTABLE CHEST 1 VIEW [facility] Department of Radiology [address] [place] [id number] Patient Name: JASON BARTHOLOMEW : 1945 Sex: M Age: Race: White Pt. Location: [address] [place] [address] Patient Status: I Ordered Date: 06/13/2019 7:00:00 [...] appreciated. Electronically signed by:Noreen Menendez. Transcribed by: [email or web address], User Resident: Electronically Signed by: NOREEN MENENDEZ @ 06/13/2019 08:20 AM Normal [facility] Comment on above: Order Comment: R/O P neumothorax PROTHROMBIN TIMEon 9 INR Coag (PPP) [Relative time] 1.14 {INR} Normal 0.91-1.16 [facility] Comment on above: Order Comment: No: [...] 1995;108:[id number]. Performed By: #### 8 5499 #### [place] [address] [address] PT Coag (PPP) [Time] 14.7 s Normal 12.3-14.8 [facility] Comment on above: Order Comment: No: D o not add to previous draw Result Comment: ALL RESULTS MUST BE INTERPRETED WITH RESPECT TO BLOOD DRAWING ARTIFACT OR DILUTION ERROR OF ANTICOAGULANT AT THE TIME OF SAMPLING. Performed By: #### 8 5499 #### [facility] [address] [place] [address], [facility] BASIC METABOLIC PANELon 06-02 Calcium [Mass/Vol] 9.1 mg/dL Normal 8.6-10.3 [facility] Comment on above: Order Comment: No: D o not add to previous draw Performed By: #### 8 5499 #### [facility] [address] [place] [address], [facility] Chloride [Moles/Vol] 110 mmol/L High 98-107 [facility] Comment on above: Order Comment: No: D o not add to previous draw Performed By: #### 8 5499 #### [facility] [address] [place] [address], [facility] CO2 [Moles/Vol] 27 mmol/L Normal 21-31 The [facility] Comment on above: Order Comment: No: D o not add to previous draw Performed By: #### 8 5499 #### [facility] [address] [place] [address], [facility] Creatinine [Mass/Vol] 1.48 mg/dL High 0.70-1.30 [facility] Comment on above: Order Comment: No: D o not add to previous draw Performed By: #### 8 5499 #### [facility] [address] [place] [address], [facility] GFR/1.73 sq M predicted among blacks MDRD (S/P/Bld) [Vol rate/Area] 56 ml/min/1.73sq m Abnormal >60 [facility] Comment on above: Order Comment: No: D o not add to previous draw Result Comment: Calc ulation may not be valid for patients over 70 years Performed By: #### 8 5499 #### [facility] [address] [place] [address], [facility] GFR/1.73 sq M predicted among non-blacks MDRD (S/P/Bld) [Vol rate/Area] 46 ml/min/1.73sq m Abnormal >60 [facility] Comment on above: Order Comment: No: D o not add to previous draw Result Comment: Calc ulation may not be valid for patients over 70 years Performed By: #### 8 5499 #### [facility] [address] [place] [address], [facility] Glucose [Mass/Vol] 152 mg/dL High 70-100 [facility] Comment on above: Order Comment: No: D o not add to previous draw Performed By: #### 8 5499 #### [facility] [address] [place] [address], [facility] Potassium [Moles/Vol] 3.4 mmol/L Low 3.5-5.1 [facility] Comment on above: Order Comment: No: D o not add to previous draw Performed By: #### 8 5499 #### [facility] [address] [place] [address], [place] Sodium [Moles/Vol] 147 mmol/L High 136-145 [facility] Comment on above: Order Comment: No: D o not add to previous draw Performed By: #### 8 5499 #### [facility] [address] [place] [address], [place] Urea nitrogen [Mass/Vol] 54 mg/dL High 7-25 [facility] Comment on above: Order Comment: No: D o not add to previous draw Performed By: #### 8 5499 #### [facility] [address] [place] [address], [facility] CBC COMPLETE BLOOD COUNTon 1 08-13-2018 Erythrocyte distribution width (RBC) [Ratio] 14.4 % Normal 11.5-15.0 [facility] Comment on above: Order Comment: No: D o not add to previous draw Dup Performed By: #### 5 0608 #### [facility] [address] [place] [id number], [facility] Hematocrit (Bld) [Volume fraction] 27.7 % Low 39.0-50.0 [facility] Comment on above: Order Comment: No: D o not add to previous draw Dup Performed By: #### 5 0608 #### [facility] [address] [place] [address], [facility] Hemoglobin (Bld) [Mass/Vol] 9.0 g/dL Low 13.0-17.0 [facility] Comment on above: Order Comment: No: D o not add to previous draw Dup Performed By: #### 5 0608 #### [facility] [address] [place] [id number], [facility] MCH (RBC) [Entitic mass] 30.0 pg Normal 27.0-33.0 [facility] Comment on above: Order Comment: No: D o not add to previous draw Dup Performed By: #### 5 0608 #### [facility] [address] [place] [id number], [facility] MCHC (RBC) [Mass/Vol] 32.5 g/dL Normal 32.0-35.0 [facility] Comment on above: Order Comment: No: D o not add to previous draw Dup Performed By: #### 5 0608 #### [facility] [address] [facility] [place] [address], [facility] MCV (RBC) [Entitic vol] 92.3 fL Normal 82.0-98.0 [facility] Comment on above: Order Comment: No: D o not add to previous draw Dup Performed By: #### 5 0608 #### [facility] [address] [place] [id number], [facility] Nucleated RBC/100 WBC (Bld) [Ratio] 0 % Normal 0-0 [facility] Comment on above: Order Comment: No: D o not add to previous draw Dup Performed By: #### 5 0608 #### [facility] [address] [facility] [address], [facility] PLAT CNT 121 10*3/uL Low 150-400 [facility] Comment on above: Order Comment: No: D o not add to previous draw Dup Performed By: #### 5 0608 #### [facility] [address] [facility] [place] [address], [facility] RBC (Bld) [#/Vol] 3.00 10*6/uL Low 4.20-5.70 [facility] Comment on above: Order Comment: No: D o not add to previous draw Dup Performed By: #### 5 0608 #### [facility] [address] [facility] [place] [address], [facility] WBC (Bld) [#/Vol] 10.60 10*3/uL Normal 4.00-10.60 [facility] Comment on above: Order Comment: No: D o not add to previous draw Dup Performed By: #### 5 0608 #### [facility] [address] [facility]. [address] Cardiovascular Lab Reporton 06-12-2019 Cardiovascular Lab Report [facility] Patient Name: [facility] Skip MR #: [id number] Department of Physician: Alyx Patel M.Verna Division of Service Date: 06/11/2019 Cardiology Birthdate: 1945 Adult Cardiovascular Room #: [id number] Services [place] [address] Cardiovascular Laboratory Report CARDIOGRAPHER: Hardeep Grimes M.D. PROCEDURE: Pacemaker in the [...] fascia. Electrocautery was used to hemostasis. A 7-[place] [employer] was then advanced over the first [...] DATA: Medtronic battery/pulse generator, model #W1DI01, serial #[id number]. Leads/Medtronic. RA model #5076-45, serial #[id number]. RV lead, model #48256-74, serial #[id number]. MEASURED DATA: RA lead, P-wage 1.4 mV, [...] Skip/Bryan Curtis M.D. Date Trans: 06/12/2019 07:42 Skip/bert [id number] cc: Idris Jose M.D. [address] [facility] [address] Normal [facility] MAGNESIUM BLOODon 06-12-2019 Magnesium [Mass/Vol] 2.2 mg/dL Normal 1.9-2.7 [facility] Comment on above: Order Comment: No: D o not add to previous draw Performed By: #### 8 5499 #### [facility] [address] [facility] [place] [address], [facility] POC GLUCOSE LABon 06-12-2019 Glucose [Mass/Vol] 219 mg/dL High 70-100 [facility] Comment on above: Performed By: #### 8 5499 #### [facility] [address] [place] [address], [place] Glucose [Mass/Vol] 56 mg/dL Low 70-100 [facility] Comment on above: Performed By: #### 3 0738 #### [facility] [address] [facility] [place] [address], [facility] Glucose [Mass/Vol] 270 mg/dL High 70-100 [facility] Comment on above: Performed By: #### 8 5499 #### [facility] [address] [facility] [place] [address], [facility] Glucose [Mass/Vol] 156 mg/dL High 70-100 [facility] Comment on above: Performed By: #### 3 0313 #### [facility] [address] [facility] [place] [address], [facility] PORTABLE CHEST 1 VIEWon 06-02 PORTABLE CHEST 1 VIEW [facility] Department of Radiology [address] [place] [id number] Patient Name: JASON BARTHOLOMEW : 1945 Sex: M Age: Race: White Pt. Location: [id number] Patient Status: I Ordered Date: 06/12/2019 5:00:00 [...] pneumothorax. Electronically signed by:Lazaro Capone. Transcribed by: [email or web address], User Resident: Electronically Signed by: LAZARO CAPONE @ 06/12/2019 08:09 AM Normal [facility] Comment on above: Order Comment: R/O P neumothorax US RENALon 06-12-2019 US RENAL [facility] Department of Radiology [address] [place] [id number] Patient Name: JASON BARTHOLOMEW : 1945 Sex: M Age: Race: White Pt. Location: [address] [place] [address] Patient Status: I Ordered Date: 06/10/2019 3:25:00 [...] hydronephrosis. Electronically signed by:Gabby Bedolla. Transcribed by: [email or web address], User Resident: Electronically Signed by: GABBY BEDOLLA @ 06/12/2019 10:27 AM Normal [facility] Comment on above: Order Comment: R/O H ydronephrosis ARTERIAL BLOOD GAS WITH ICAo n 06-11-2019 BASE EXCESS 3 mmol/L Normal -2-3 [facility] Comment on above: Performed By: #### 8 4511 ####[facility] [place] [address], [facility] DELIVERY SYSTEMS BIPAP 06/07 Normal [facility] Comment on above: Performed By: #### 8 4511 ####[facility] [place] [address], [place] FIO2 40 % Normal [facility] Comment on above: Performed By: #### 8 4511 ####[facility] [place] [address], [place] HCO3 (Bld) [Moles/Vol] 26 mmol/L Normal 21-28 Th e [facility] Comment on above: Performed By: #### 8 4511 ####[facility] [place] [address], [place] IONIZED CALCIUM 1.20 mmol/L Normal 1.13-1.32 [facility] Comment on above: Performed By: #### 8 4511 ####[facility] [place] [address], [place] Oxygen (Bld) [Partial pressure] 62 mm[Hg] Low 83-108 [facility] Comment on above: Performed By: #### 8 4511 ####[facility] [place] [address], [place] Oxygen saturation in Blood 93.8 % Low 94.0-97.0 [facility] Comment on above: Performed By: #### 8 4511 ####[facility] [place] [address], [place] PCO2 32 mmHg Low 35-45 [facility] Comment on above: Performed By: #### 8 4511 ####[facility] [place] [address], [place] pH (Bld) 7.52 [pH] High 7.35-7.45 [facility] Comment on above: Performed By: #### 8 4511 ####[facility] [place] [address], [place] BASIC METABOLIC PANELon 12- Calcium [Mass/Vol] 9.1 mg/dL Normal 8.6-10.3 [facility] Comment on above: Order Comment: No: D o not add to previous draw Performed By: #### 0 0071 ####[facility] [place] [address], [place] Chloride [Moles/Vol] 107 mmol/L Normal 98-107 [facility] Comment on above: Order Comment: No: D o not add to previous draw Performed By: #### 0 0071 ####[facility] [place] [address], [place] CO2 [Moles/Vol] 28 mmol/L Normal 21-31 The [facility] Comment on above: Order Comment: No: D o not add to previous draw Performed By: #### 0 0071 ####[facility] [facility] [place] [place] [address], [facility] Creatinine [Mass/Vol] 2.17 mg/dL High 0.70-1.30 [facility] Comment on above: Order Comment: No: D o not add to previous draw Performed By: #### 0 0071 ####[facility] [facility] [place] [address], [facility] GFR/1.73 sq M predicted among blacks MDRD (S/P/Bld) [Vol rate/Area] 36 ml/min/1.73sq m Abnormal >60 [facility] Comment on above: Order Comment: No: D o not add to previous draw Result Comment: Calc ulation may not be valid for patients over 70 years Performed By: #### 0 0071 ####[facility] [facility] [place] [address], [facility] GFR/1.73 sq M predicted among non-blacks MDRD (S/P/Bld) [Vol rate/Area] 30 ml/min/1.73sq m Abnormal >60 [facility] Comment on above: Order Comment: No: D o not add to previous draw Result Comment: Calc ulation may not be valid for patients over 70 years Performed By: #### 0 0071 ####[facility] [facility] [place] [address], [facility] Glucose [Mass/Vol] 121 mg/dL High 70-100 [facility] Comment on above: Order Comment: No: D o not add to previous draw Performed By: #### 0 0071 ####[facility] [facility] [place] [address], [facility] Potassium [Moles/Vol] 3.5 mmol/L Normal 3.5-5.1 [facility] Comment on above: Order Comment: No: D o not add to previous draw Performed By: #### 0 0071 ####[facility] [place] [address], [place] Sodium [Moles/Vol] 143 mmol/L Normal 136-145 [facility] Comment on above: Order Comment: No: D o not add to previous draw Performed By: #### 0 0071 ####[facility] [place] [address], [place] Urea nitrogen [Mass/Vol] 66 mg/dL High 7-25 [facility] [facility] Comment on above: Order Comment: No: D o not add to previous draw Performed By: #### 0 0071 ####[facility] [place] [address], [place] Calcium [Mass/Vol] 9.2 mg/dL Normal 8.6-10.3 [facility] Comment on above: Order Comment: No: D o not add to previous draw Performed By: #### 8 [id number] #### [facility] [address] [place] [address], [place] Chloride [Moles/Vol] 105 mmol/L Normal 98-107 [facility] Comment on above: Order Comment: No: D o not add to previous draw Performed By: #### 8 [id number] #### [facility] [address] [place] [address], [place] CO2 [Moles/Vol] 26 mmol/L Normal 21-31 The [facility] Comment on above: Order Comment: No: D o not add to previous draw Performed By: #### 8 [id number] #### [facility] [address] [place] [address], [place] Creatinine [Mass/Vol] 2.43 mg/dL High 0.70-1.30 [facility] Comment on above: Order Comment: No: D o not add to previous draw Performed By: #### 8 [id number] #### [facility] [address] [place] [address], [place] GFR/1.73 sq M predicted among blacks MDRD (S/P/Bld) [Vol rate/Area] 32 ml/min/1.73sq m Abnormal >60 [facility] Comment on above: Order Comment: No: D o not add to previous draw Result Comment: Calc ulation may not be valid for patients over 70 years Performed By: #### 8 [id number] #### [facility] [address] [place] [address], [place] GFR/1.73 sq M predicted among non-blacks MDRD (S/P/Bld) [Vol rate/Area] 26 ml/min/1.73sq m Abnormal >60 [facility] Comment on above: Order Comment: No: D o not add to previous draw Result Comment: Calc ulation may not be valid for patients over 70 years Performed By: #### 8 [id number] #### [facility] [address] [place] [address], [place] Glucose [Mass/Vol] 160 mg/dL High 70-100 [facility] Comment on above: Order Comment: No: D o not add to previous draw Performed By: #### 8 [id number] #### [facility] [address] [place] [address], [place] Potassium [Moles/Vol] 3.6 mmol/L Normal 3.5-5.1 [facility] Comment on above: Order Comment: No: D o not add to previous draw Performed By: #### 8 [id number] #### [facility] [address] [place] [address], [place] Sodium [Moles/Vol] 140 mmol/L Normal 136-145 [facility] Comment on above: Order Comment: No: D o not add to previous draw Performed By: #### 8 [id number] #### [facility] [address] [place] [address], [place] Urea nitrogen [Mass/Vol] 68 mg/dL High 7-25 [facility] Comment on above: Order Comment: No: D o not add to previous draw Performed By: #### 8 [id number] #### [facility] [address] [place] [address], [facility] CBC COMPLETE BLOOD COUNTon 08-12-2018 Erythrocyte distribution width (RBC) [Ratio] 14.3 % Normal 11.5-15.0 [facility] Comment on above: Order Comment: No: D o not add to previous draw Performed By: #### 3 0313 #### [facility] [address] [place] [address], [facility] Hematocrit (Bld) [Volume fraction] 25.1 % Low 39.0-50.0 [facility] Comment on above: Order Comment: No: D o not add to previous draw Performed By: #### 3 0313 #### [facility] [address] [place] [address], [facility] Hemoglobin (Bld) [Mass/Vol] 8.3 g/dL Low 13.0-17.0 [facility] Comment on above: Order Comment: No: D o not add to previous draw Performed By: #### 3 0313 #### [facility] [address] [place] [address], [facility] MCH (RBC) [Entitic mass] 29.9 pg Normal 27.0-33.0 [facility] Comment on above: Order Comment: No: D o not add to previous draw Performed By: #### 3 0313 #### [facility] [address] [place] [address], [facility] MCHC (RBC) [Mass/Vol] 33.1 g/dL Normal 32.0-35.0 [facility] Comment on above: Order Comment: No: D o not add to previous draw Performed By: #### 3 0313 #### [facility] [address] [place] [address], [facility] MCV (RBC) [Entitic vol] 90.3 fL Normal 82.0-98.0 T he [facility] Comment on above: Order Comment: No: D o not add to previous draw Performed By: #### 3 0313 #### [facility] [address] Nucleated RBC/100 WBC (Bld) [Ratio] 0 % Normal 0-0 [facility] Comment on above: Order Comment: No: D o not add to previous draw Performed By: #### 3 0313 #### [facility] [address] [address], [facility] PLAT CNT 101 10*3/uL Low 150-400 [facility] Comment on above: Order Comment: No: D o not add to previous draw Performed By: #### 3 0313 #### [facility] [address] [place] [address], [facility] RBC (Bld) [#/Vol] 2.78 10*6/uL Low 4.20-5.70 [facility] Comment on above: Order Comment: No: D o not add to previous draw Performed By: #### 3 0313 #### [facility] [address] [place] [address], [facility] WBC (Bld) [#/Vol] 14.45 10*3/uL High 4.00-10.60 [facility] Comment on above: Order Comment: No: D o not add to previous draw Performed By: #### 3 0313 #### [facility] [address] Cardiovascular Lab Reporton 06-11-2019 Cardiovascular Lab Report [facility] Patient Name: Jason Bartholomew [facility] Skip MR #: [id number] Department of Physician: Gilberto Manning M.D. Division of Service Date: 06/11/2019 Cardiology Birthdate: 1945 Adult Cardiovascular Room #: [facility] [address] [place] [address] Cardiovascular Laboratory Report INDICATIONS: This is the gentleman who 4 days ago underwent aortic valve replacement. He has had intermittent complete heart block with asystolic. His sternal wires were noted earlier in the day to not be functioning intermittently and then were not functioning at all. He was being rescued paced from external pacing pad. He was brought emergently down to the slab installer. It was an emergent procedure. He was [...] Manning M.D. Date Trans: 06/11/2019 01:20 P/bert [id number] cc: Idris Jose M.D. [address] [facility] [address] [place] [facility] Cardiovascular Lab Report [facility] Patient Name: Jason Bartholomew [facility] Skip MR #: [id number] Department of Physician: Gilberto Manning M.D. Division of Service Date: 06/11/2019 Cardiology Birthdate: 1945 Adult Cardiovascular Room #: [id number] Services [facility] [address] [facility]. [place] [address] Cardiovascular Laboratory Report INDICATIONS: This is the gentleman who 4 days ago underwent aortic valve replacement. He has had intermittent complete heart block with asystolic. His sternal wires were noted earlier in the day to not be functioning intermittently and then were not functioning at all. He was being rescued paced from external pacing pad. He was brought emergently down to the slab installer. It was an emergent procedure. He was [...] A/Gilberto Manning M.D. Date Trans: 06/11/2019 01:20 P/hanselo [id number] cc: Idris Jose M.D. [address] [facility] [address] Normal [facility] MAGNESIUM BLOODon 06-11-2019 Magnesium [Mass/Vol] 2.4 mg/dL Normal 1.9-2.7 [facility] Comment on above: Order Comment: No: D o not add to previous draw Performed By: #### 8 [id number] #### [facility] [address] [facility] [place] [address], [facility] PHOSPHORUS BLOODon 9 Phosphate [Mass/Vol] 3.7 mg/dL Normal 2.5-5.0 [facility] Comment on above: Order Comment: No: D o not add to previous draw Performed By: #### 8 7002 #### [facility] [address] [facility] [place] [address], [facility] POC GLUCOSE LABon 06-11-2019 Glucose [Mass/Vol] 181 mg/dL High 70-100 [facility] Comment on above: Performed By: #### 8 [id number] #### [facility] [address] [facility] [place] [address], [facility] Glucose [Mass/Vol] 121 mg/dL High 70-100 [facility] Comment on above: Performed By: #### 8 [id number] ####[facility] [facility] [place] [address], [place] Glucose [Mass/Vol] 153 mg/dL High 70-100 [facility] Comment on above: Performed By: #### 8 5499 ####[facility] [place] [address], [facility] PORTABLE CHEST 1 VIEWon 06-02 PORTABLE CHEST 1 VIEW [facility] Department of Radiology [address] [place] [id number] Patient Name: JASON BARTHOLOMEW : 1945 Sex: M Age: Race: White Pt. Location: [id number] Patient Status: I Ordered Date: 06/11/2019 6:30:00 [...] days Electronically signed by:Noreen Menendez. Transcribed by: [email or web address], User Resident: Electronically Signed by: NOREEN MENENDEZ @ 06/11/2019 08:37 AM Normal [facility] Comment on above: Order Comment: R/O P neumothorax, post-op AVR *BLOOD CULTUREon 06-10-2019 Bacteria identified Cx Nom (Bld) Clinical Report: (D) Specimen: BLOOD CULTURE Collected: 06/10/2019 14:21 Status: Final Last Updated: 06/16/2019 06:09 CULT RES (Final) No Growth Day 5 Normal [facility] Comment on above: Performed By: #### 3 0313 #### [facility] [address] [place] [address], [facility] BASIC METABOLIC PANELon -0 Calcium [Mass/Vol] 9.4 mg/dL Normal 8.6-10.3 [facility] Comment on above: Order Comment: No: D o not add to previous draw Performed By: #### 8 [id number] #### [facility] [address] [place] [address], [facility] Chloride [Moles/Vol] 101 mmol/L Normal 98-107 [facility] Comment on above: Order Comment: No: D o not add to previous draw Performed By: #### 8 5499 #### [facility] [address] [place] [address], [place] CO2 [Moles/Vol] 25 mmol/L Normal 21-31 [facility] Comment on above: Order Comment: No: D o not add to previous draw Performed By: #### 8 5499 #### [facility] [address] [place] [address], [place] Creatinine [Mass/Vol] 2.71 mg/dL High 0.70-1.30 [facility] Comment on above: Order Comment: No: D o not add to previous draw Performed By: #### 8 [id number] #### [facility] [address] [place] [address], [place] GFR/1.73 sq M predicted among blacks MDRD (S/P/Bld) [Vol rate/Area] 28 ml/min/1.73sq m Abnormal >60 [facility] Comment on above: Order Comment: No: D o not add to previous draw Result Comment: Calc ulation may not be valid for patients over 70 years Performed By: #### 8 [id number] #### [facility] [address] [place] [address], [place] GFR/1.73 sq M predicted among non-blacks MDRD (S/P/Bld) [Vol rate/Area] 23 ml/min/1.73sq m Abnormal >60 [facility] Comment on above: Order Comment: No: D o not add to previous draw Result Comment: Calc ulation may not be valid for patients over 70 years Performed By: #### 8 [id number] #### [facility] [address] [place] [address], [place] Glucose [Mass/Vol] 246 mg/dL High 70-100 [facility] Comment on above: Order Comment: No: D o not add to previous draw Performed By: #### 8 5499 #### [facility] [address] [place] [address], [place] Potassium [Moles/Vol] 4.3 mmol/L Normal 3.5-5.1 [facility] Comment on above: Order Comment: No: D o not add to previous draw Performed By: #### 8 5499 #### [facility] [address] [place] [address], [place] Sodium [Moles/Vol] 139 mmol/L Normal 136-145 [facility] Comment on above: Order Comment: No: D o not add to previous draw Performed By: #### 8 5499 #### [facility] [address] [place] [address], [place] Urea nitrogen [Mass/Vol] 59 mg/dL High 7-25 [facility] Comment on above: Order Comment: No: D o not add to previous draw Performed By: #### 8 [id number] #### [facility] [address] [place] [address], [place] Calcium [Mass/Vol] 9.6 mg/dL Normal 8.6-10.3 [facility] Comment on above: Performed By: #### 8 5499 #### [facility] [address] [place] [address], [place] Chloride [Moles/Vol] 104 mmol/L Normal 98-107 [facility] Comment on above: Performed By: #### 8 [id number] #### [facility] [address] [place] [address], [place] CO2 [Moles/Vol] 25 mmol/L Normal 21-31 The [facility] Comment on above: Performed By: #### 8 5499 #### [facility] [address] [place] [address], [place] Creatinine [Mass/Vol] 2.12 mg/dL High 0.70-1.30 [facility] Comment on above: Performed By: #### 8 [id number] #### [facility] [address] [place] [address], [place] GFR/1.73 sq M predicted among blacks MDRD (S/P/Bld) [Vol rate/Area] 37 ml/min/1.73sq m Abnormal >60 [facility] Comment on above: Result Comment: Calc ulation may not be valid for patients over 70 years Performed By: #### 8 [id number] #### [facility] [address] [place] [address], [place] GFR/1.73 sq M predicted among non-blacks MDRD (S/P/Bld) [Vol rate/Area] 31 ml/min/1.73sq m Abnormal >60 [facility] Comment on above: Result Comment: Calc ulation may not be valid for patients over 70 years Performed By: #### 8 [id number] #### [facility] [address] [place] [address], [place] Glucose [Mass/Vol] 170 mg/dL High 70-100 [facility] Comment on above: Performed By: #### 8 5499 #### [facility] [address] [place] [address], [place] Potassium [Moles/Vol] 3.3 mmol/L Low 3.5-5.1 [facility] Comment on above: Performed By: #### 8 [id number] #### [facility] [address] [place] [address], [place] Sodium [Moles/Vol] 141 mmol/L Normal 136-145 [facility] Comment on above: Performed By: #### 8 5499 #### [facility] [address] [place] [address], [place] Urea nitrogen [Mass/Vol] 52 mg/dL High 7-25 [facility] Comment on above: Performed By: #### 8 [id number] #### [facility] [address] CBC COMPLETE BLOOD COUNTon 08-11-2018 Erythrocyte distribution width (RBC) [Ratio] 14.6 % Normal 11.5-15.0 [facility] Comment on above: Order Comment: No: D o not add to previous draw Performed By: #### 3 0313 #### [facility] [address] [place] [address], [facility] Hematocrit (Bld) [Volume fraction] 27.8 % Low 39.0-50.0 [facility] Comment on above: Order Comment: No: D o not add to previous draw Performed By: #### 3 3 #### [facility] [address] [place] [address], [facility] Hemoglobin (Bld) [Mass/Vol] 9.4 g/dL Low 13.0-17.0 [facility] Comment on above: Order Comment: No: D o not add to previous draw Performed By: #### 3 0313 #### [facility] [address] [place] [address], [facility] IMM PLATELET FRAC 5.2 % Normal 0.8-6.3 The [facility] Comment on above: Order Comment: No: D o not add to previous draw Performed By: #### 3 0313 #### [facility] [address] [place] [address], [facility] MCH (RBC) [Entitic mass] 29.9 pg Normal 27.0-33.0 [facility] Comment on above: Order Comment: No: D o not add to previous draw Performed By: #### 3 0313 #### [facility] [address] [place] [address], [facility] MCHC (RBC) [Mass/Vol] 33.8 g/dL Normal 32.0-35.0 [facility] Comment on above: Order Comment: No: D o not add to previous draw Performed By: #### 3 0313 #### [facility] [address] [place] [address], [facility] MCV (RBC) [Entitic vol] 88.5 fL Normal 82.0-98.0 T he [facility] Comment on above: Order Comment: No: D o not add to previous draw Performed By: #### 3 0313 #### [facility] [address] [place] [id number], [facility] Nucleated RBC/100 WBC (Bld) [Ratio] 0 % Normal 0-0 [facility] Comment on above: Order Comment: No: D o not add to previous draw Performed By: #### 3 0313 #### [facility] [address] [place] [id number], [facility] PLAT CNT 96 10*3/uL Low 150-400 [facility] Comment on above: Order Comment: No: D o not add to previous draw Performed By: #### 3 0313 #### [facility] [address] [place] [id number], [facility] RBC (Bld) [#/Vol] 3.14 10*6/uL Low 4.20-5.70 The [facility] Comment on above: Order Comment: No: D o not add to previous draw Performed By: #### 3 0313 #### [facility] [address] [facility] [place] [id number], [facility] WBC (Bld) [#/Vol] 17.03 10*3/uL High 4.00-10.60 [facility] Comment on above: Order Comment: No: D o not add to previous draw Performed By: #### 3 0313 #### [facility] [address] [place] [id number], [facility] CREATININE URINE RANDOMon Creatinine [Mass/Vol] 77.0 mg/dL Normal [facility] Comment on above: Order Comment: No: D o not add to previous draw Result Comment: Ther e are no established reference values for random urine specimens Performed By: #### 8 [id number] #### [facility] [address] [place] [address], [place] MAGNESIUM BLOODon 06-10-2019 Magnesium [Mass/Vol] 2.6 mg/dL Normal 1.9-2.7 [facility] Comment on above: Performed By: #### 8 5499 #### [facility] [address] [place] [address], [place] Magnesium [Mass/Vol] 1.8 mg/dL Low 1.9-2.7 [facility] Comment on above: Order Comment: No: D o not add to previous draw Performed By: #### 8 [id number] #### [facility] [address] [place] [address], [place] OSMOLALITY BLOODon 9 Osmolality [Osmolality] 308 mOsm/kg High 285-305 [facility] Comment on above: Performed By: #### 8 5499 #### [facility] [address] [place] [address], [place] PHOSPHORUS BLOODon 9 Phosphate [Mass/Vol] 2.9 mg/dL Normal 2.5-5.0 [facility] Comment on above: Order Comment: No: D o not add to previous draw Performed By: #### 8 5499 #### [facility] [address] [place] [address], [place] POC GLUCOSE LABon 06-10-2019 Glucose [Mass/Vol] 153 mg/dL High 70-100 [facility] Comment on above: Performed By: #### 8 [id number] #### [facility] [address] [place] [address], [place] Glucose [Mass/Vol] 186 mg/dL High 70-100 [facility] Comment on above: Performed By: #### 8 5499 #### [facility] [address] [place] [address], [place] Glucose [Mass/Vol] 256 mg/dL High 70-100 [facility] Comment on above: Performed By: #### 8 5499 ####[facility] [facility] [place] [address], [facility] Glucose [Mass/Vol] 178 mg/dL High 70-100 [facility] Comment on above: Performed By: #### 3 0738 #### [facility] [address] [place] [address], [facility] PORTABLE CHEST 1 VIEWon PORTABLE CHEST 1 VIEW [facility] Department of Radiology [address] [place] [address] Patient Name: JASON BARTHOLOMEW : 1945 Sex: M Age: Race: White Pt. Location: [id number] Patient Status: I Ordered Date: 06/10/2019 5:00:00 [...] cardiomegaly. Electronically signed by:Lazaro Capone. Transcribed by: [email or web address], User Resident: Electronically Signed by: LAZARO CAPONE @ 06/10/2019 07:38 AM Normal The [facility] Comment on above: Order Comment: R/O P neumothorax SODIUM URINE RANDOMon 2018 Sodium (U) [Moles/Vol] 65 mmol/L Normal Th e [facility] Comment on above: Order Comment: No: D o not add to previous draw Result Comment: Ther e are no established reference values for random urine specimens Performed By: #### 8 [id number] #### [facility] [address] [place] [address], [facility] APTTon 06-09-2019 aPTT Coag (Bld) [Time] 31.4 s Normal 25.0-35.0 Th e [facility] Comment on above: Order Comment: No: [...] PURPOSE. Performed By: #### 5 0608 #### [facility] [address] [place] [address], [facility] aPTT Coag (Bld) [Time] 31.1 s Normal 25.0-35.0 Th e [facility] Comment on above: Order Comment: No: [...] PURPOSE. Performed By: #### 8 [id number] #### [facility] [address] [facility]. [address] ARTERIAL BLOOD GAS WITH ICAo n 06-09-2019 BASE EXCESS -4 mmol/L Low -2-3 [facility] Comment on above: Performed By: #### 8 4511 ####[facility] [facility].[address] DELIVERY SYSTEMS BiPAP Normal The [facility] Comment on above: Performed By: #### 8 4511 ####[facility] [facility].[address] FIO2 100 % Normal The [facility] Comment on above: Performed By: #### 8 4511 ####[facility] [facility].[address] HCO3 (Bld) [Moles/Vol] 19 mmol/L Low 21-28 e [facility] Comment on above: Performed By: #### 8 4511 ####[facility] [facility].[address] IONIZED CALCIUM 1.24 mmol/L Normal 1.13-1.32 The [facility] Comment on above: Performed By: #### 8 4511 ####[facility] [facility].[address] Oxygen (Bld) [Partial pressure] 179 mm[Hg] Critically high 83-108 [facility] Comment on above: Performed By: #### 8 4511 ####[facility] [facility].[address] Oxygen saturation in Blood 96.9 % Normal 94.0-97.0 [facility] Comment on above: Performed By: #### 8 4511 ####[facility] [place] [address], [facility] PCO2 29 mmHg Low 35-45 [facility] Comment on above: Performed By: #### 8 4511 ####[facility] [place] [address], [facility] PEEP 6.0 CMH20 Normal The [facility] Comment on above: Performed By: #### 8 4511 ####[facility] [place] [address], [facility] [facility] pH (Bld) 7.43 [pH] Normal 7.35-7.45 [facility] Comment on above: Performed By: #### 8 4511 ####[facility] [place] [address], [facility] PRESSURE SUPPORT 12 Normal [facility] Comment on above: Performed By: #### 8 4511 ####[facility] [facility] [place] [id number] [place] [address] BASE EXCESS -5 mmol/L Low -2-3 The [facility] Comment on above: Order Comment: RESUL TS CHECKED AND CALLED. ACCURATELY READ BACK BY Savanna TRUONG RN-SAMPLE IS MIXED Performed By: #### 8 4511 ####[facility] [facility] [place] [address], [facility] DELIVERY SYSTEMS NASAL CANNULA Normal The [facility] Comment on above: Order Comment: RESUL TS CHECKED AND CALLED. ACCURATELY READ BACK BY Savanna TRUONG RN-SAMPLE IS MIXED Performed By: #### 8 4511 ####[facility] [facility] [place] [address], [facility] HCO3 (Bld) [Moles/Vol] 18 mmol/L Low 21-28 Th e [facility] Comment on above: Order Comment: RESUL TS CHECKED AND CALLED. ACCURATELY READ BACK BY Savanna TRUONG RN-SAMPLE IS MIXED Performed By: #### 8 4511 ####[facility] [place] [address], [facility] IONIZED CALCIUM 1.23 mmol/L Normal 1.13-1.32 The [facility] Comment on above: Order Comment: RESUL TS CHECKED AND CALLED. ACCURATELY READ BACK BY Savanna TRUONG RN-SAMPLE IS MIXED Performed By: #### 8 4511 ####[facility] [facility] [place] [address], [facility] LPM 6.0 LPM Normal [facility] Comment on above: Order Comment: RESUL TS CHECKED AND CALLED. ACCURATELY READ BACK BY Savanna TRUONG RN-SAMPLE IS MIXED Performed By: #### 8 4511 ####[facility] [facility] Oxygen (Bld) [Partial pressure] 40 mm[Hg] Critically low 83-108 [facility] Comment on above: Order Comment: RESUL TS CHECKED AND CALLED. ACCURATELY READ BACK BY Savanna TRUONG RN-SAMPLE IS MIXED Performed By: #### 8 4511 ####[facility] [facility].[address] Oxygen saturation in Blood 80.5 % Critically low 94.0-97.0 The [facility] Comment on above: Order Comment: RESUL TS CHECKED AND CALLED. ACCURATELY READ BACK BY Savanna TRUONG RN-SAMPLE IS MIXED Performed By: #### 8 4511 ####[facility] [facility].[address] PCO2 27 mmHg Low 35-45 The [facility] Comment on above: Order Comment: RESUL TS CHECKED AND CALLED. ACCURATELY READ BACK BY Savanna TRUONG RN-SAMPLE IS MIXED Performed By: #### 8 4511 ####[facility] [place] [address], [facility] pH (Bld) 7.43 [pH] Normal 7.35-7.45 The [facility] Comment on above: Order Comment: RESUL TS CHECKED AND CALLED. ACCURATELY READ BACK BY Savanna TRUONG RN-SAMPLE IS MIXED Performed By: #### 8 4511 ####[facility] [place] [address], [facility] BASIC METABOLIC PANELon 12-0 Calcium [Mass/Vol] 9.1 mg/dL Normal 8.6-10.3 [facility] Comment on above: Order Comment: No: D o not add to previous draw Performed By: #### 8 7002 #### [facility] [address] [place] [address], [place] Chloride [Moles/Vol] 106 mmol/L Normal 98-107 [facility] Comment on above: Order Comment: No: D o not add to previous draw Performed By: #### 8 7002 #### [facility] [address] [place] [address], [place] CO2 [Moles/Vol] 19 mmol/L Low 21-31 The [facility] Comment on above: Order Comment: No: D o not add to previous draw Performed By: #### 8 7002 #### [facility] [address] [place] [address], [place] Creatinine [Mass/Vol] 2.33 mg/dL High 0.70-1.30 [facility] Comment on above: Order Comment: No: D o not add to previous draw Performed By: #### 8 7002 #### [facility] [address] [place] [address], [place] GFR/1.73 sq M predicted among blacks MDRD (S/P/Bld) [Vol rate/Area] 33 ml/min/1.73sq m Abnormal >60 The [facility] Comment on above: Order Comment: No: D o not add to previous draw Result Comment: Calc ulation may not be valid for patients over 70 years Performed By: #### 8 7002 #### [facility] [address] [place] [address], [place] GFR/1.73 sq M predicted among non-blacks MDRD (S/P/Bld) [Vol rate/Area] 27 ml/min/1.73sq m Abnormal >60 [facility] Comment on above: Order Comment: No: D o not add to previous draw Result Comment: Calc ulation may not be valid for patients over 70 years Performed By: #### 8 [id number] #### [facility] [address] [place] [address], [place] Glucose [Mass/Vol] 215 mg/dL High 70-100 [facility] Comment on above: Order Comment: No: D o not add to previous draw Performed By: #### 8 700 #### [facility] [address] [place] [address], [place] Potassium [Moles/Vol] 4.1 mmol/L Normal 3.5-5.1 The [facility] Comment on above: Order Comment: No: D o not add to previous draw Performed By: #### 8 700 #### [facility] [address] [place] [address], [place] Sodium [Moles/Vol] 137 mmol/L Normal 136-145 [facility] Comment on above: Order Comment: No: D o not add to previous draw Performed By: #### 8 7002 #### [facility] [address] [place] [address], [place] Urea nitrogen [Mass/Vol] 49 mg/dL High 7-25 [facility] Comment on above: Order Comment: No: D o not add to previous draw Performed By: #### 8 700 #### [facility] [address] [place] [address], [place] Calcium [Mass/Vol] 9.2 mg/dL Normal 8.6-10.3 [facility] Comment on above: Order Comment: No: D o not add to previous draw Performed By: #### 8 700 #### [facility] [address] [place] [address], [place] Chloride [Moles/Vol] 108 mmol/L High 98-107 [facility] Comment on above: Order Comment: No: D o not add to previous draw Performed By: #### 8 7002 #### [facility] [address] [place] [address], [place] CO2 [Moles/Vol] 24 mmol/L Normal 21-31 The [facility] Comment on above: Order Comment: No: D o not add to previous draw Performed By: #### 8 7002 #### [facility] [address] [place] [address], [place] Creatinine [Mass/Vol] 1.71 mg/dL High 0.70-1.30 The [facility] Comment on above: Order Comment: No: D o not add to previous draw Performed By: #### 8 7002 #### [facility] [address] [place] [address], [facility] GFR/1.73 sq M predicted among blacks MDRD (S/P/Bld) [Vol rate/Area] 47 ml/min/1.73sq m Abnormal >60 [facility] Comment on above: Order Comment: No: D o not add to previous draw Result Comment: Calc ulation may not be valid for patients over 70 years Performed By: #### 8 7002 #### [facility] [address] [place] [address], [place] GFR/1.73 sq M predicted among non-blacks MDRD (S/P/Bld) [Vol rate/Area] 39 ml/min/1.73sq m Abnormal >60 [facility] Comment on above: Order Comment: No: D o not add to previous draw Result Comment: Calc ulation may not be valid for patients over 70 years Performed By: #### 8 7002 #### [facility] [address] [place] [address], [place] Glucose [Mass/Vol] 89 mg/dL Normal 70-100 [facility] Comment on above: Order Comment: No: D o not add to previous draw Performed By: #### 8 7002 #### [facility] [address] [place] [address], [facility] Potassium [Moles/Vol] 3.8 mmol/L Normal 3.5-5.1 [facility] Comment on above: Order Comment: No: D o not add to previous draw Performed By: #### 8 7002 #### [facility] [address] [place] [address], [place] Sodium [Moles/Vol] 140 mmol/L Normal 136-145 [facility] Comment on above: Order Comment: No: D o not add to previous draw Performed By: #### 8 7002 #### [facility] [address] [place] [address], [place] Urea nitrogen [Mass/Vol] 36 mg/dL High 7-25 [facility] Comment on above: Order Comment: No: D o not add to previous draw Performed By: #### 8 7002 #### [facility] [address] [place] [address], [facility] CBC COMPLETE BLOOD COUNTon 1 08-10-2018 Erythrocyte distribution width (RBC) [Ratio] 14.9 % Normal 11.5-15.0 [facility] Comment on above: Order Comment: No: D o not add to previous draw Performed By: #### 3 0313 #### [facility] [address] [place] [address], [place] Hematocrit (Bld) [Volume fraction] 26.4 % Low 39.0-50.0 The [facility] Comment on above: Order Comment: No: D o not add to previous draw Performed By: #### 3 0313 #### [facility] [address] [place] [address], [place] Hemoglobin (Bld) [Mass/Vol] 9.0 g/dL Low 13.0-17.0 The [facility] Comment on above: Order Comment: No: D o not add to previous draw Performed By: #### 3 0313 #### [facility] [address] [place] [address], [facility] IMM PLATELET FRAC 5.0 % Normal 0.8-6.3 The [facility] Comment on above: Order Comment: No: D o not add to previous draw Performed By: #### 3 0313 #### [facility] [address] [place] [address], [facility] MCH (RBC) [Entitic mass] 30.2 pg Normal 27.0-33.0 The [facility] Comment on above: Order Comment: No: D o not add to previous draw Performed By: #### 3 0313 #### [facility] [address] [place] [address], [facility] MCHC (RBC) [Mass/Vol] 34.1 g/dL Normal 32.0-35.0 The [facility] Comment on above: Order Comment: No: D o not add to previous draw Performed By: #### 3 0313 #### [facility] [address] [facility] [place] [address], [facility] MCV (RBC) [Entitic vol] 88.6 fL Normal 82.0-98.0 T he [facility] Comment on above: Order Comment: No: D o not add to previous draw Performed By: #### 3 0313 #### [facility] [address] [facility] [place] [address], [facility] Nucleated RBC/100 WBC (Bld) [Ratio] 0 % Normal 0-0 [facility] Comment on above: Order Comment: No: D o not add to previous draw Performed By: #### 3 0313 #### [facility] [address] [place] [id number], [facility] PLAT CNT 81 10*3/uL Low 150-400 [facility] Comment on above: Order Comment: No: D o not add to previous draw Result Comment: Prev iously Resulted 81 Performed By: #### 3 0313 #### [facility] [address] [place] [id number], [facility] RBC (Bld) [#/Vol] 2.98 10*6/uL Low 4.20-5.70 The [facility] Comment on above: Order Comment: No: D o not add to previous draw Performed By: #### 3 0313 #### [facility] [address] [place] [address], [place] WBC (Bld) [#/Vol] 10.77 10*3/uL High 4.00-10.60 The [facility] Comment on above: Order Comment: No: D o not add to previous draw Performed By: #### 3 0313 #### [facility] [address] [place] [address], [facility] Erythrocyte distribution width (RBC) [Ratio] 14.7 % Normal 11.5-15.0 The [facility] Comment on above: Order Comment: No: D o not add to previous draw Performed By: #### 3 0313 #### [facility] [address] [place] [address], [place] Hematocrit (Bld) [Volume fraction] 23.6 % Low 39.0-50.0 The [facility] Comment on above: Order Comment: No: D o not add to previous draw Performed By: #### 3 0313 #### [facility] [address] [place] [address], [facility] Hemoglobin (Bld) [Mass/Vol] 7.9 g/dL Low 13.0-17.0 The [facility] Comment on above: Order Comment: No: D o not add to previous draw Performed By: #### 3 0313 #### [facility] [address] [place] [address], [place] IMM PLATELET FRAC 5.4 % Normal 0.8-6.3 The [facility] Comment on above: Order Comment: No: D o not add to previous draw Performed By: #### 3 0313 #### [facility] [address] [facility] [place] [address], [facility] MCH (RBC) [Entitic mass] 29.5 pg Normal 27.0-33.0 The [facility] Comment on above: Order Comment: No: D o not add to previous draw Performed By: #### 3 0313 #### [facility] [address] [place] [address], [facility] MCHC (RBC) [Mass/Vol] 33.5 g/dL Normal 32.0-35.0 The [facility] Comment on above: Order Comment: No: D o not add to previous draw Performed By: #### 3 0313 #### [facility] [address] [facility] [place] [address], [facility] MCV (RBC) [Entitic vol] 88.1 fL Normal 82.0-98.0 T [facility] Comment on above: Order Comment: No: D o not add to previous draw Performed By: #### 3 0313 #### [facility] [address] [facility] [place] [address], [facility] Nucleated RBC/100 WBC (Bld) [Ratio] 0 % Normal 0-0 The [facility] Comment on above: Order Comment: No: D o not add to previous draw Performed By: #### 3 0313 #### [facility] [address] [facility] [place] [id number], [facility] PLAT CNT 81 10*3/uL Low 150-400 The [facility] Comment on above: Order Comment: No: D o not add to previous draw Performed By: #### 3 0313 #### [facility] [address] [place] [address], [facility] RBC (Bld) [#/Vol] 2.68 10*6/uL Low 4.20-5.70 The [facility] Comment on above: Order Comment: No: D o not add to previous draw Performed By: #### 3 0313 #### [facility] [address] [place] [address], [facility] WBC (Bld) [#/Vol] 10.66 10*3/uL High 4.00-10.60 The [facility] Comment on above: Order Comment: No: D o not add to previous draw Performed By: #### 3 0313 #### [facility] [address] [place] [address], [place] MAGNESIUM BLOODon 06-09-2019 Magnesium [Mass/Vol] 2.0 mg/dL Normal 1.9-2.7 The [facility] Comment on above: Order Comment: No: D o not add to previous draw Performed By: #### 8 7002 #### [facility] [address] [place] [address], [place] PHOSPHORUS BLOODon 9 Phosphate [Mass/Vol] 3.5 mg/dL Normal 2.5-5.0 The [facility] Comment on above: Order Comment: No: D o not add to previous draw Performed By: #### 8 7002 #### [facility] [address] [place] [address], [place] POC GLUCOSE LABon 06-09-2019 Glucose [Mass/Vol] 235 mg/dL High 70-100 [facility] Comment on above: Performed By: #### 8 5499 #### [facility] [address] [place] [address], [place] Glucose [Mass/Vol] 201 mg/dL High 70-100 [facility] Comment on above: Performed By: #### 3 0738 #### [facility] [address] [place] [address], [place] Glucose [Mass/Vol] 180 mg/dL High 70-100 [facility] Comment on above: Performed By: #### 8 5499 #### [facility] [address] [place] [address], [place] Glucose [Mass/Vol] 160 mg/dL High 70-100 [facility] Comment on above: Performed By: #### 8 5499 #### [facility] [address] [place] [address], [place] Glucose [Mass/Vol] 92 mg/dL Normal 70-100 [facility] Comment on above: Performed By: #### 8 5499 #### [facility] [address] [place] [address], [place] Glucose [Mass/Vol] 115 mg/dL High 70-100 [facility] Comment on above: Performed By: #### 8 5499 #### [facility] [address] [place] [address], [place] Glucose [Mass/Vol] 130 mg/dL High 70-100 [facility] Comment on above: Performed By: #### 3 0738 #### [facility] [address] [facility] [place] [address], [place] Glucose [Mass/Vol] 210 mg/dL High 70-100 [facility] Comment on above: Performed By: #### 8 5499 #### [facility] [address] [facility] [place] [address], [place] Glucose [Mass/Vol] 240 mg/dL High 70-100 [facility] Comment on above: Performed By: #### 3 0738 #### [facility] [address] [facility] [place] [address], [place] PORTABLE CHEST 1 VIEWon 12-0 PORTABLE CHEST 1 VIEW [facility] Department of Radiology [address] [place] [id number] Patient Name: JASON BARTHOLOMEW : 1945 Sex: M Age: Race: White Pt. Location: [address] [place] [address] Patient Status: I Ordered Date: 06/09/2019 3:25:00 [...] midlung. Electronically signed by:Lazaro Capone. Transcribed by: [email or web address], User Resident: Electronically Signed by: LAZARO CAPONE @ 06/10/2019 08:11 AM Normal The [facility] Comment on above: Order Comment: R/O P neumothorax PORTABLE CHEST 1 VIEW [facility] Department of Radiology [address] [place] [id number] Patient Name: JASON BARTHOLOMEW : 1945 Sex: M Age: Race: White Pt. Location: [id number] Patient Status: I Ordered Date: 06/09/2019 8:15:00 [...] Cardiomediastinal silhouette remains unchanged. Interval removal of Mayslick-Teresa catheter. Mediastinal drain present. Aortic valve prosthesis. Right-sided chest tube remains with small right apical pneumothorax measuring 6 mm from the pleura. No significant change in right-sided loculated pleural effusion or right-sided upper lobe airspace disease. Left lung is clear. No subdiaphragmatic free air. IMPRESSION: 1. Small right apical pneumothorax. 2. Interval removal of Mayslick-Teresa catheter. Remaining tubes are stable. 3. No significant change in right-sided pleural parenchymal process. Findings were discussed with FADIA Thomas at 9:15 AM on 06/09/2019. Approved by:Misbah Jo on 06/09/2019 9:16 AM EST. INoreen, have reviewed the images and report and concur with these findings. Electronically signed by:Noreen Menendez. Transcribed by: [email or web address], User Resident: [email or web address] Electronically Signed by: NOREEN MENENDEZ @ 06/10/2019 07:11 AM I personally read this/these film(s) with this resident Normal The [facility] Comment on above: Order Comment: R/O P neumothorax PROTHROMBIN TIMEon 9 INR Coag (PPP) [Relative time] 1.26 {INR} High 0.91-1.16 The [facility] Comment on above: Order Comment: No: [...] 1995;108:[id number]. Performed By: #### 5 0608 #### [facility] [address] [facility]. [address] PT Coag (PPP) [Time] 15.9 s High 12.3-14.8 The [facility] Comment on above: Order Comment: No: D o not add to previous draw Dup Result Comment: ALL RESULTS MUST BE INTERPRETED WITH RESPECT TO BLOOD DRAWING ARTIFACT OR DILUTION ERROR OF ANTICOAGULANT AT THE TIME OF SAMPLING. Performed By: #### 5 0608 #### [facility] [address] [facility]. [address] INR Coag (PPP) [Relative time] 1.30 {INR} High 0.91-1.16 The [facility] Comment on above: Order Comment: No: [...] 1995;[id number]. Performed By: #### 8 5499 #### [facility] [address] [facility]. [address] PT Coag (PPP) [Time] 16.3 s High 12.3-14.8 The [facility] Comment on above: Order Comment: No: D o not add to previous draw Result Comment: ALL RESULTS MUST BE INTERPRETED WITH RESPECT TO BLOOD DRAWING ARTIFACT OR DILUTION ERROR OF ANTICOAGULANT AT THE TIME OF SAMPLING. Performed By: #### 8 [id number] #### [facility] [address] [facility]. [address] APTTon 06-08-2019 aPTT Coag (Bld) [Time] 31.6 s Normal 25.0-35.0 Th e [facility] Comment on above: Order Comment: No: [...] PURPOSE. Performed By: #### 8 [id number] #### [facility] [address] [place] [address], [facility] aPTT Coag (Bld) [Time] 32.6 s Normal 25.0-35.0 Th e [facility] Comment on above: Order Comment: No: [...] PURPOSE. Performed By: #### 5 0608 #### [facility] [address] ARTERIAL BLOOD GAS WITH ICAo n 06-08-2019 BASE EXCESS -1 mmol/L Normal -2-3 The [facility] Comment on above: Performed By: #### 8 4511 ####[facility] [facility].[address] DELIVERY SYSTEMS NASAL CANNULA Normal The [facility] Comment on above: Performed By: #### 8 4511 ####[facility] [place] [address], [facility] HCO3 (Bld) [Moles/Vol] 24 mmol/L Normal 21-28 Th e [facility] Comment on above: Performed By: #### 8 4511 ####[facility] [place] [address], [facility] IONIZED CALCIUM 1.37 mmol/L High 1.13-1.32 The [facility] Comment on above: Performed By: #### 8 4511 ####[facility] [place] [address], [facility] LPM 2.0 LPM Normal The [facility] Comment on above: Performed By: #### 8 4511 ####[facility] [place] [address], [facility] Oxygen (Bld) [Partial pressure] 93 mm[Hg] Normal 83-108 The [facility] Comment on above: Performed By: #### 8 4511 ####[facility] [address], [facility] Oxygen saturation in Blood 96.6 % Normal 94.0-97.0 [facility] Comment on above: Performed By: #### 8 4511 ####[facility] [place] [address], [facility] PCO2 39 mmHg Normal 35-45 The [facility] Comment on above: Performed By: #### 8 4511 ####[facility] [place] [address], [facility] pH (Bld) 7.40 [pH] Normal 7.35-7.45 [facility] Comment on above: Performed By: #### 8 4511 ####[facility] [place] [address], [facility] BASIC METABOLIC PANELon 12-0 Calcium [Mass/Vol] 9.6 mg/dL Normal 8.6-10.3 [facility] Comment on above: Order Comment: post op day 1No: Do not add to previous draw Performed By: #### 8 [id number] #### [facility] [address] [place] [address], [facility] Chloride [Moles/Vol] 107 mmol/L Normal 98-107 [facility] Comment on above: Order Comment: post op day 1No: Do not add to previous draw Performed By: #### 8 [id number] #### [facility] [address] [place] [address], [place] CO2 [Moles/Vol] 24 mmol/L Normal 21-31 [facility] Comment on above: Order Comment: post op day 1No: Do not add to previous draw Performed By: #### 8 [id number] #### [facility] [address] [place] [address], [place] Creatinine [Mass/Vol] 1.55 mg/dL High 0.70-1.30 [facility] Comment on above: Order Comment: post op day 1No: Do not add to previous draw Performed By: #### 8 [id number] #### [facility] [address] [place] [address], [place] GFR/1.73 sq M predicted among blacks MDRD (S/P/Bld) [Vol rate/Area] 53 ml/min/1.73sq m Abnormal >60 [facility] Comment on above: Order Comment: post op day 1No: Do not add to previous draw Result Comment: Calc ulation may not be valid for patients over 70 years Performed By: #### 8 [id number] #### [facility] [address] [place] [address], [place] GFR/1.73 sq M predicted among non-blacks MDRD (S/P/Bld) [Vol rate/Area] 44 ml/min/1.73sq m Abnormal >60 [facility] Comment on above: Order Comment: post op day 1No: Do not add to previous draw Result Comment: Calc ulation may not be valid for patients over 70 years Performed By: #### 8 [id number] #### [facility] [address] [place] [address], [place] Glucose [Mass/Vol] 103 mg/dL High 70-100 [facility] Comment on above: Order Comment: post op day 1No: Do not add to previous draw Performed By: #### 8 [id number] #### [facility] [address] [place] [address], [place] Potassium [Moles/Vol] 4.1 mmol/L Normal 3.5-5.1 [facility] Comment on above: Order Comment: post op day 1No: Do not add to previous draw Performed By: #### 8 [id number] #### [facility] [address] [address], [place] Sodium [Moles/Vol] 138 mmol/L Normal 136-145 [facility] Comment on above: Order Comment: post op day 1No: Do not add to previous draw Performed By: #### 8 [id number] #### [facility] [address] [place] [address], [place] Urea nitrogen [Mass/Vol] 29 mg/dL High 7-25 [facility] Comment on above: Order Comment: post op day 1No: Do not add to previous draw Performed By: #### 8 [id number] #### [facility] [address] [place] [address], [place] CBC COMPLETE BLOOD COUNTon 1 08-09-2018 Erythrocyte distribution width (RBC) [Ratio] 13.9 % Normal 11.5-15.0 [facility] Comment on above: Order Comment: No: D o not add to previous draw Dup Performed By: #### 5 0608 #### [facility] [address] [place] [address], [place] Hematocrit (Bld) [Volume fraction] 18.6 % Low 39.0-50.0 [facility] Comment on above: Order Comment: No: D o not add to previous draw Dup Performed By: #### 5 0608 #### [facility] [address] [place] [address], [place] Hemoglobin (Bld) [Mass/Vol] 6.4 g/dL Low 13.0-17.0 [facility] Comment on above: Order Comment: No: D o not add to previous draw Dup Performed By: #### 5 0608 #### [facility] [address] [place] [address], [facility] IMM PLATELET FRAC 3.7 % Normal 0.8-6.3 [facility] Comment on above: Order Comment: No: D o not add to previous draw Dup Performed By: #### 5 0608 #### [facility] [address] MCH (RBC) [Entitic mass] 29.6 pg Normal 27.0-33.0 [facility] Comment on above: Order Comment: No: D o not add to previous draw Dup Performed By: #### 5 0608 #### [facility] [address] [facility] [place] [address], [facility] MCHC (RBC) [Mass/Vol] 34.4 g/dL Normal 32.0-35.0 [facility] Comment on above: Order Comment: No: D o not add to previous draw Dup Performed By: #### 5 0608 #### [facility] [address] [facility] [place] [address], [facility] MCV (RBC) [Entitic vol] 86.1 fL Normal 82.0-98.0 [facility] Comment on above: Order Comment: No: D o not add to previous draw Dup Performed By: #### 5 0608 #### [facility] [address] [facility] [place] [address], [facility] Nucleated RBC/100 WBC (Bld) [Ratio] 0 % Normal 0-0 [facility] Comment on above: Order Comment: No: D o not add to previous draw Dup Performed By: #### 5 0608 #### [facility] [address] [place] [address], [facility] PLAT CNT 103 10*3/uL Low 150-400 [facility] Comment on above: Order Comment: No: D o not add to previous draw Dup Performed By: #### 5 0608 #### [facility] [address] [place] [address], [facility] RBC (Bld) [#/Vol] 2.16 10*6/uL Low 4.20-5.70 [facility] Comment on above: Order Comment: No: D o not add to previous draw Dup Performed By: #### 5 0608 #### [facility] [address] [place] [address], [facility] WBC (Bld) [#/Vol] 9.48 10*3/uL Normal 4.00-10.60 [facility] Comment on above: Order Comment: No: D o not add to previous draw Dup Performed By: #### 5 0608 #### [facility] [address] [place] [address], [facility] COOXIMETRYon 06-08-2019 COHB 3 % Normal [facility] Comment on above: Performed By: #### 7 0207 ####[facility] [facility] [place] [address], [facility] METHB 1 % Normal [facility] Comment on above: Performed By: #### 7 0207 ####[facility] [place] [address], [facility] Oxygen saturation in Blood 67.9 % Normal 65.0-75.0 [facility] Comment on above: Performed By: #### 7 0207 ####[facility] [place] [address], [facility] THB 6.6 g/dL Normal [facility] Comment on above: Performed By: #### 7 0207 ####[facility] [place] [address], [facility] HEMOGLOBINon 06-08-2019 Hemoglobin (Bld) [Mass/Vol] 7.5 g/dL Low 13.0-17.0 [facility] Comment on above: Order Comment: No: D o not add to previous draw Dup Performed By: #### 5 0608 #### [facility] [address] Hemoglobin (Bld) [Mass/Vol] 8.3 g/dL Low 13.0-17.0 [facility] Comment on above: Order Comment: No: D o not add to previous draw Performed By: #### 3 0313 #### [facility] [address] LACTATE BLOODon 06-08-2019 Lactate [Moles/Vol] 0.8 mmol/L Normal 0.5-2.2 [facility] Comment on above: Order Comment: post op day 1No: Do not add to previous draw Performed By: #### 8 [id number] #### [facility] [address] [facility] [address] MAGNESIUM BLOODon 06-08-2019 Magnesium [Mass/Vol] 2.2 mg/dL Normal 1.9-2.7 [facility] Comment on above: Order Comment: post op day 1No: Do not add to previous draw Performed By: #### 8 [id number] #### [facility] [address] Operative Reporton 9 Operative Report MR#: [id number] I [facility] Pt. Name: Jason Bartholomew Room #: [id number] Discharge Date: Birthdate: 1945 OPERATIVE REPORT DATE OF SURGERY: 06/07/2019 SURGEON: Janeth Hutton MD PREOPERATIVE DIAGNOSIS: Postoperative bleeding status post minimally invasive aortic valve replacement. POSTOPERATIVE DIAGNOSIS: Postoperative bleeding status post minimally invasive aortic valve replacement. OPERATION: Exploration of right medial thoracotomy wound and washout of the chest, correction of coagulopathy. CARDIOGRAPHER: Mattie. ANESTHESIA: General with endotracheal intubation. ANESTHESIOLOGIST: [...] Hutton MD Date Trans: 06/08/2019 08:25 A/bert [id number] cc: Idris Jose M.D. [address] [facility] [address] [place] [facility] Operative Report MR#: [id number] I [facility] Pt. Name: Jason Bartholomew Room #: [id number] Discharge Date: Birthdate: 1945 OPERATIVE REPORT DATE [...] Hutton MD Date Trans: 06/08/2019 01:08 Skip/bert [id number] cc: Idris Jose M.D. [address] [facility] [address] Normal [facility] POC GLUCOSE LABon 06-08-2019 Glucose [Mass/Vol] 104 mg/dL High 70-100 [facility] Comment on above: Performed By: #### 3 0738 #### [facility] [address] [place] [address], [facility] Glucose [Mass/Vol] 79 mg/dL Normal 70-100 [facility] Comment on above: Performed By: #### 8 [id number] #### [facility] [address] [place] [address], [place] Glucose [Mass/Vol] 105 mg/dL High 70-100 [facility] Comment on above: Performed By: #### 3 0738 #### [facility] [address] [place] [address], [place] Glucose [Mass/Vol] 112 mg/dL High 70-100 [facility] Comment on above: Performed By: #### 3 0313 #### [facility] [address] [place] [address], [place] Glucose [Mass/Vol] 134 mg/dL High 70-100 [facility] Comment on above: Performed By: #### 3 0313 #### [facility] [address] [place] [address], [place] Glucose [Mass/Vol] 99 mg/dL Normal 70-100 [facility] Comment on above: Performed By: #### 3 0738 #### [facility] [address] [place] [address], [place] Glucose [Mass/Vol] 97 mg/dL Normal 70-100 [facility] Comment on above: Performed By: #### 3 0738 #### [facility] [address] [place] [address], [place] Glucose [Mass/Vol] 117 mg/dL High 70-100 [facility] Comment on above: Performed By: #### 8 5499 #### [facility] [address] [place] [address], [place] Glucose [Mass/Vol] 96 mg/dL Normal 70-100 [facility] Comment on above: Performed By: #### 8 5499 #### [facility] [address] [facility] [place] [address], [facility] Glucose [Mass/Vol] 105 mg/dL High 70-100 [facility] Comment on above: Performed By: #### 8 5499 #### [facility] [address] [facility] [place] [address], [facility] PORTABLE CHEST 1 VIEWon PORTABLE CHEST 1 VIEW [facility] Department of Radiology [address] [place] [address] [id number] Patient Name: JASON BARTHOLOMEW : 1945 Sex: M Age: Race: White Pt. Location: [id number] Patient Status: I Ordered Date: 06/08/2019 7:00:00 [...] study. Right side chest the tube, right-sided [place]-Teresa catheter again noted, and mediastinal drain are [...] findings. Electronically signed by:Noreen Menendez. Transcribed by: [email or web address], User Resident: NICHOLAS CASEY Electronically Signed by: NOREEN MENENDEZ @ 06/08/2019 03:39 PM I personally read this/these film(s) with this resident Normal [facility] Comment on above: Order Comment: Check Chest Tube Position PROTHROMBIN TIMEon 9 INR Coag (PPP) [Relative time] 1.30 {INR} High 0.91-1.16 [facility] Comment on above: Order Comment: post op [...] 1995;108:[id number]. Performed By: #### 8 [id number] #### [facility] [address] [place] [address], [facility] PT Coag (PPP) [Time] 16.3 s High 12.3-14.8 [facility] Comment on above: Order Comment: post op day 1No: Do not add to previous draw Result Comment: ALL RESULTS MUST BE INTERPRETED WITH RESPECT TO BLOOD DRAWING ARTIFACT OR DILUTION ERROR OF ANTICOAGULANT AT THE TIME OF SAMPLING. Performed By: #### 8 [id number] #### [facility] [address] [place] [address], [facility] RBC'S 2 UNITSon 06-08-2019 CROSSMATCH INTERP 1 COMP Normal [facility] Comment on above: Performed By: #### 8 6002 ####[facility] [facility] [place] [address], [facility] CROSSMATCH INTERP 2 COMP Normal [facility] Comment on above: Performed By: #### 8 6002 ####[facility] [facility] [place] [address], [facility] PRODUCT CODE 1 E[address] [facility] Comment on above: Performed By: #### 8 6002 ####[facility] [facility] [place] [address], [facility] PRODUCT CODE 2 E[address] Normal [address] [facility] Comment on above: Performed By: #### 8 6002 ####[facility] [facility] [place] [address], [facility] PRODUCT STATUS 1 RE Normal The [facility] Comment on above: Result Comment: Resu lt changed by IF on 06/10/2019 07:04. The previous value was XM. Performed By: #### 8 6002 ####[facility] [facility] [place] [address], [facility] PRODUCT STATUS 2 PT Normal The [facility] Comment on above: Result Comment: Resu lt changed by IF on 06/08/2019 23:37. The previous value was XM. Result changed by IF on 06/09/2019 02:00. The previous value was IS. Performed By: #### 8 6002 ####[facility] UNIT ABO 1 A Normal [facility] Comment on above: Performed By: #### 8 6002 ####[facility], [place] [address] [place] [address] UNIT ABO 2 A Normal [facility] Comment on above: Performed By: #### 8 6002 ####[facility] [facility] UNIT ID 1 [id number] Normal The [facility] Comment on above: Performed By: #### 8 6002 ####[facility] [facility].[address] UNIT ID 2 [id number] Normal The [facility] Comment on above: Performed By: #### 8 6002 ####[facility] [facility].[address] UNIT RH 1 Positive Normal [facility] Comment on above: Performed By: #### 8 6002 ####[facility] UNIT RH 2 Positive Normal [facility] Comment on above: Performed By: #### 8 6002 ####[facility] [facility].[address] ACTIVATED CLOTTING TIMEon ACTIVATED CLOTTING TIME 121 sec Normal 82-152 T he [facility] Comment on above: Performed By: #### 8 [id number] #### [facility] [address] [place] [address], [place] ACTIVATED CLOTTING TIME 104 sec Normal 82-152 T he [facility] Comment on above: Performed By: #### 8 5499 #### [facility] [address] [place] [address], [place] ACTIVATED CLOTTING TIME 443 sec High 82-152 T he [facility] Comment on above: Performed By: #### 8 [id number] #### [facility] [address] [place] [address], [place] ACTIVATED CLOTTING TIME 467 sec High 82-152 T he [facility] Comment on above: Performed By: #### 8 [id number] #### [facility] [address] [place] [address], [place] ACTIVATED CLOTTING TIME 380 sec High 82-152 T he [facility] Comment on above: Performed By: #### 8 [id number] #### [facility] [address] [place] [address], [facility] ACTIVATED CLOTTING TIME 443 sec High 82-152 T [facility] Comment on above: Performed By: #### 8 5499 #### [facility] [address] [place] [address], [place] ACTIVATED CLOTTING TIME 479 sec High 82-152 [facility] Comment on above: Performed By: #### 8 5499 #### [facility] [address] [place] [address], [facility] ACTIVATED CLOTTING TIME 121 sec Normal 82-152 [facility] Comment on above: Performed By: #### 8 5499 #### [facility] [address] [place] [address], [facility] APTTon 06-07-2019 aPTT Coag (Bld) [Time] 63.3 s High 25.0-35.0 Th e [facility] Comment on above: Result Comment: ALL RESULTS [...] 19:52 Performed By: #### 8 [id number] #### [facility] [address] [place] [address], [facility] aPTT Coag (Bld) [Time] 72.3 s Critically high 25.0-35. 0 [facility] Comment on above: Order Comment: No: D [...] 18:39 Performed By: #### 8 [id number] #### [facility] [address] [facility] [place] [address], [facility] aPTT Coag (Bld) [Time] 32.6 s Normal 25.0-35.0 e [facility] Comment on above: Result Comment: ALL RESULTS [...] PURPOSE. Performed By: #### 8 [id number] #### [facility] [address] [facility] [place] [address], [facility] ARTERIAL BLOOD GAS WITH ICAo n 06-07-2019 BASE EXCESS -3 mmol/L Low -2-3 [facility] Comment on above: Performed By: #### 8 4511 ####[facility] [facility] [place] [address], [facility] DELIVERY SYSTEMS VENTILATOR Normal The [facility] Comment on above: Performed By: #### 8 4511 ####[facility] [facility] [place] [address], [facility] FIO2 40 % Normal The [facility] Comment on above: Performed By: #### 8 4511 ####[facility] [facility] [place] [address], [facility] HCO3 (Bld) [Moles/Vol] 22 mmol/L Normal 21-28 Th e [facility] Comment on above: Performed By: #### 8 4511 ####[place] [id number] [facility] [place] [address], [facility] IONIZED CALCIUM 1.38 mmol/L High 1.13-1.32 The [facility] Comment on above: Performed By: #### 8 4511 ####[facility] [facility] [place] [address], [facility] MIN VOLUME 14.5 Normal The [facility] Comment on above: Performed By: #### 8 4511 ####[facility] [facility] [place] [address], [facility] MODALITY Positive Normal The [facility] Comment on above: Performed By: #### 8 4511 ####[facility] [facility] [place] [address], [facility] Oxygen (Bld) [Partial pressure] 144 mm[Hg] Critically high 83-108 The [facility] Comment on above: Performed By: #### 8 4511 ####[facility] [facility] [place] [address], [facility] Oxygen saturation in Blood 96.7 % Normal 94.0-97.0 The [facility] Comment on above: Performed By: #### 8 4511 ####[facility] [facility] [place] [address], [facility] PCO2 35 mmHg Normal 35-45 The [facility] Comment on above: Performed By: #### 8 4511 ####[facility] [address], [facility] PEEP 8.0 CMH20 Normal [facility] Comment on above: Performed By: #### 8 4511 ####[facility] [place] [address], [facility] pH (Bld) 7.40 [pH] Normal 7.35-7.45 The [facility] Comment on above: Performed By: #### 8 4511 ####[facility] [facility] [place] [address], [facility] PRESSURE SUPPORT 8 Normal The [facility] Comment on above: Performed By: #### 8 4511 ####[facility] BASE EXCESS -2 mmol/L Normal -2-3 The [facility] Comment on above: Performed By: #### 8 4511 ####[facility] [facility].[address] DELIVERY SYSTEMS VENT Normal The [facility] Comment on above: Performed By: #### 8 4511 ####[facility] [place] [address], [facility] FIO2 40 % Normal [facility] Comment on above: Performed By: #### 8 4511 ####[facility] [place] [address], [facility] HCO3 (Bld) [Moles/Vol] 23 mmol/L Normal 21-28 Th e [facility] Comment on above: Performed By: #### 8 4511 ####[facility] [place] [address], [facility] IONIZED CALCIUM 1.48 mmol/L High 1.13-1.32 The [facility] Comment on above: Performed By: #### 8 4511 ####[facility] [place] [address], [facility] MIN VOLUME 6.0 Normal The [facility] Comment on above: Performed By: #### 8 4511 ####[facility] [place] [address], [facility] MODALITY SIMV Normal The [facility] Comment on above: Performed By: #### 8 4511 ####[facility] [place] [address], [facility] Oxygen (Bld) [Partial pressure] 105 mm[Hg] Normal 83-108 The [facility] Comment on above: Performed By: #### 8 4511 ####[facility] [place] [address], [facility] Oxygen saturation in Blood 96.7 % Normal 94.0-97.0 The [facility] Comment on above: Performed By: #### 8 4511 ####[facility] [place] [address], [facility] PCO2 42 mmHg Normal 35-45 The [facility] Comment on above: Performed By: #### 8 4511 ####[facility] [place] [address], [facility] PEEP 8.0 CMH20 Normal The [facility] Comment on above: Performed By: #### 8 4511 ####[facility] [place] [address], [place] pH (Bld) 7.35 [pH] Normal 7.35-7.45 [facility] Comment on above: Performed By: #### 8 4511 ####[facility] [place] [address], [facility] PRESSURE SUPPORT 5 Normal [facility] Comment on above: Performed By: #### 8 4511 ####[facility] [place] [address], [facility] TIDAL VOLUME (VT) CC 500 cc Normal [facility] Comment on above: Performed By: #### 8 4511 ####[facility] [place] [address], [place] BASE EXCESS 0 mmol/L Normal -2-3 [facility] Comment on above: Performed By: #### 8 5499 #### [facility] [address] [place] [address], [facility] DELIVERY SYSTEMS VENT Normal [facility] Comment on above: Performed By: #### 8 5499 #### [facility] [address] [place] [address], [place] FIO2 40 % Normal [facility] Comment on above: Performed By: #### 8 5499 #### [facility] [address] [place] [address], [place] HCO3 (Bld) [Moles/Vol] 24 mmol/L Normal 21-28 [facility] Comment on above: Performed By: #### 8 5499 #### [facility] [address] [place] [address], [place] IONIZED CALCIUM 1.34 mmol/L High 1.13-1.32 [facility] Comment on above: Performed By: #### 8 5499 #### [facility] [address] [place] [address], [place] MIN VOLUME 11.0 Normal [facility] Comment on above: Performed By: #### 8 5499 #### [facility] [address] [place] [address], [place] MODALITY Positive Normal [facility] Comment on above: Performed By: #### 8 5499 #### [facility] [address] [place] [address], [facility] Oxygen (Bld) [Partial pressure] 157 mm[Hg] Critically high 83-108 [facility] Comment on above: Performed By: #### 8 5499 #### [facility] [address] [place] [address], [place] Oxygen saturation in Blood 96.5 % Normal 94.0-97.0 [facility] Comment on above: Performed By: #### 8 5499 #### [facility] [address] [place] [address], [place] PCO2 33 mmHg Low 35-45 [facility] Comment on above: Performed By: #### 8 5499 #### [facility] [address] [place] [address], [place] PEEP 8.0 CMH20 Normal [facility] Comment on above: Performed By: #### 8 5499 #### [facility] [address] [place] [address], [place] pH (Bld) 7.46 [pH] High 7.35-7.45 [facility] Comment on above: Performed By: #### 8 5499 #### [facility] [address] [place] [address], [facility] PRESSURE SUPPORT 10 Normal [facility] Comment on above: Performed By: #### 8 5499 #### [facility] [address] [place] [address], [place] BASE EXCESS -2 mmol/L Normal -2-3 [facility] Comment on above: Order Comment: R/O P neumothorax Performed By: #### 8 4511 ####[facility] [place] [address], [place] DELIVERY SYSTEMS VENT Normal [facility] Comment on above: Order Comment: R/O P neumothorax Performed By: #### 8 4511 ####[facility] [place] [address], [facility] FIO2 50 % Normal [facility] Comment on above: Order Comment: R/O P neumothorax Performed By: #### 8 4511 ####[facility] [place] [address], [facility] HCO3 (Bld) [Moles/Vol] 23 mmol/L Normal 21-28 e [facility] Comment on above: Order Comment: R/O P neumothorax Performed By: #### 8 4511 ####[facility] [place] [address], [facility] IONIZED CALCIUM 1.39 mmol/L High 1.13-1.32 [facility] Comment on above: Order Comment: R/O P neumothorax Performed By: #### 8 4511 ####[facility] [facility] [place] [address], [facility] MIN VOLUME 6.0 Normal [facility] Comment on above: Order Comment: R/O P neumothorax Performed By: #### 8 4511 ####[facility] [facility] [place] [address], [facility] MODALITY SIMV Normal [facility] Comment on above: Order Comment: R/O P neumothorax Performed By: #### 8 4511 ####[facility] [place] [address], [facility] Oxygen (Bld) [Partial pressure] 168 mm[Hg] Critically high 83-108 [facility] Comment on above: Order Comment: R/O P neumothorax Performed By: #### 8 4511 ####[facility] [place] [address], [facility] Oxygen saturation in Blood 97.2 % High 94.0-97.0 [facility] Comment on above: Order Comment: R/O P neumothorax Performed By: #### 8 4511 ####[facility] [place] [address], [facility] PCO2 42 mmHg Normal 35-45 [facility] Comment on above: Order Comment: R/O P neumothorax Performed By: #### 8 4511 ####[facility] [place] [address], [facility] PEEP 8.0 CMH20 Normal [facility] Comment on above: Order Comment: R/O P neumothorax Performed By: #### 8 4511 ####[facility] [place] [address], [facility] pH (Bld) 7.35 [pH] Normal 7.35-7.45 [facility] Comment on above: Order Comment: R/O P neumothorax Performed By: #### 8 4511 ####[facility] [place] [address], [facility] PRESSURE SUPPORT 5 Normal [facility] Comment on above: Order Comment: R/O P neumothorax Performed By: #### 8 4511 ####[facility] TIDAL VOLUME (VT) CC 500 cc Normal [facility] Comment on above: Order Comment: R/O P neumothorax Performed By: #### 8 4511 ####[facility] [place] [address], [facility] BASIC METABOLIC PANELon 12-0 -2019 Calcium [Mass/Vol] 10.1 mg/dL Normal 8.6-10.3 [facility] Comment on above: Order Comment: No: D o not add to previous draw Performed By: #### 8 5499 #### [facility] [address] [place] [address], [facility] Chloride [Moles/Vol] 107 mmol/L Normal 98-107 [facility] Comment on above: Order Comment: No: D o not add to previous draw Performed By: #### 8 5499 #### [facility] [address] [place] [address], [place] CO2 [Moles/Vol] 24 mmol/L Normal 21-31 [facility] Comment on above: Order Comment: No: D o not add to previous draw Performed By: #### 8 5499 #### [facility] [address] [place] [address], [place] Creatinine [Mass/Vol] 1.66 mg/dL High 0.70-1.30 [facility] Comment on above: Order Comment: No: D o not add to previous draw Performed By: #### 8 5499 #### [facility] [address] [place] [address], [place] GFR/1.73 sq M predicted among blacks MDRD (S/P/Bld) [Vol rate/Area] 49 ml/min/1.73sq m Abnormal >60 [facility] Comment on above: Order Comment: No: D o not add to previous draw Result Comment: Calc ulation may not be valid for patients over 70 years Performed By: #### 8 5499 #### [facility] [address] [place] [address], [place] GFR/1.73 sq M predicted among non-blacks MDRD (S/P/Bld) [Vol rate/Area] 41 ml/min/1.73sq m Abnormal >60 [facility] Comment on above: Order Comment: No: D o not add to previous draw Result Comment: Calc ulation may not be valid for patients over 70 years Performed By: #### 8 5499 #### [facility] [address] [place] [address], [place] Glucose [Mass/Vol] 115 mg/dL High 70-100 [facility] Comment on above: Order Comment: No: D o not add to previous draw Performed By: #### 8 5499 #### [facility] [address] [place] [address], [place] Sodium [Moles/Vol] 136 mmol/L Normal 136-145 [facility] Comment on above: Order Comment: No: D o not add to previous draw Performed By: #### 8 5499 #### [facility] [address] [place] [address], [place] Urea nitrogen [Mass/Vol] 31 mg/dL High 7-25 [facility] Comment on above: Order Comment: No: D o not add to previous draw Performed By: #### 8 5499 #### [facility] [address] [place] [address], [place] Calcium [Mass/Vol] 9.4 mg/dL Normal 8.6-10.3 [facility] Comment on above: Order Comment: No: D o not add to previous draw Performed By: #### 8 7002 #### [facility] [address] [place] [address], [place] Chloride [Moles/Vol] 104 mmol/L Normal 98-107 [facility] Comment on above: Order Comment: No: D o not add to previous draw Performed By: #### 8 7002 #### [facility] [address] [place] [address], [place] CO2 [Moles/Vol] 23 mmol/L Normal 21-31 The [facility] Comment on above: Order Comment: No: D o not add to previous draw Performed By: #### 8 7002 #### [facility] [address] [place] [address], [place] Creatinine [Mass/Vol] 1.73 mg/dL High 0.70-1.30 [facility] Comment on above: Order Comment: No: D o not add to previous draw Performed By: #### 8 7002 #### [facility] [address] [place] [address], [facility] GFR/1.73 sq M predicted among blacks MDRD (S/P/Bld) [Vol rate/Area] 47 ml/min/1.73sq m Abnormal >60 [facility] Comment on above: Order Comment: No: D o not add to previous draw Result Comment: Calc ulation may not be valid for patients over 70 years Performed By: #### 8 7002 #### [facility] [address] [place] [address], [facility] GFR/1.73 sq M predicted among non-blacks MDRD (S/P/Bld) [Vol rate/Area] 39 ml/min/1.73sq m Abnormal >60 [facility] Comment on above: Order Comment: No: D o not add to previous draw Result Comment: Calc ulation may not be valid for patients over 70 years Performed By: #### 8 7002 #### [facility] [address] [place] [address], [facility] Glucose [Mass/Vol] 128 mg/dL High 70-100 [facility] Comment on above: Order Comment: No: D o not add to previous draw Performed By: #### 8 7002 #### [facility] [address] [place] [address], [place] Potassium [Moles/Vol] 3.9 mmol/L Normal 3.5-5.1 [facility] Comment on above: Order Comment: No: D o not add to previous draw Performed By: #### 8 5499 #### [facility] [address] [place] [address], [place] Performed By: #### 8 7002 #### [facility] [address] [place] [address], [place] Sodium [Moles/Vol] 134 mmol/L Low 136-145 [facility] Comment on above: Order Comment: No: D o not add to previous draw Performed By: #### 8 7002 #### [facility] [address] [place] [address], [place] Urea nitrogen [Mass/Vol] 34 mg/dL High 7-25 [facility] Comment on above: Order Comment: No: D o not add to previous draw Performed By: #### 8 7002 #### [facility] [address] [place] [address], [place] Calcium [Mass/Vol] 10.7 mg/dL High 8.6-10.3 [facility] Comment on above: Performed By: #### 4 1000, 83070, 43339 ####[facility] [place] [address], [place] Chloride [Moles/Vol] 101 mmol/L Normal 98-107 [facility] Comment on above: Performed By: #### 4 1000, 08202, 62772 ####[facility] [place] [address], [place] CO2 [Moles/Vol] 20 mmol/L Low 21-31 The [facility] Comment on above: Performed By: #### 4 999, 92740, 24452 ####[facility] [place] [address], [place] Creatinine [Mass/Vol] 1.79 mg/dL High 0.70-1.30 [facility] Comment on above: Performed By: #### 4 1000, 46775, 75649 ####[facility] [place] [address], [place] GFR/1.73 sq M predicted among blacks MDRD (S/P/Bld) [Vol rate/Area] 45 ml/min/1.73sq m Abnormal >60 [facility] Comment on above: Result Comment: Calc ulation may not be valid for patients over 70 years Performed By: #### 4 999, 84271, 13415 ####[facility] [place] [address], [facility] GFR/1.73 sq M predicted among non-blacks MDRD (S/P/Bld) [Vol rate/Area] 37 ml/min/1.73sq m Abnormal >60 [facility] Comment on above: Result Comment: Calc ulation may not be valid for patients over 70 years Performed By: #### 4 1000, 84077, 59737 ####[facility] [place] [address], [facility] Glucose [Mass/Vol] 219 mg/dL High 70-100 [facility] Comment on above: Performed By: #### 4 1000, 62516, 34739 ####[facility] [place] [address], [facility] Potassium [Moles/Vol] 4.2 mmol/L Normal 3.5-5.1 [facility] Comment on above: Performed By: #### 4 1000, 07857, 35595 ####[facility] [place] [address], [facility] Sodium [Moles/Vol] 128 mmol/L Low 136-145 [facility] Comment on above: Performed By: #### 4 1000, 64978, 12066 ####[facility] [place] [address], [facility] Urea nitrogen [Mass/Vol] 37 mg/dL High 7-25 [facility] Comment on above: Performed By: #### 4 1000, 89825, 53726 ####[facility] [place] [address], [facility] CARDIAC MAGNESIUM BLOODon Magnesium [Mass/Vol] 2.1 mg/dL Normal 1.9-2.7 [facility] Comment on above: Performed By: #### 8 7002 #### [facility] [address] [place] [address], [facility] CBC COMPLETE BLOOD COUNTon 1 08-08-2018 Hematocrit (Bld) [Volume fraction] 23.0 % Low 39.0-50.0 [facility] Comment on above: Order Comment: No: D o not add to previous draw Dup Performed By: #### 5 0608 #### [facility] [address] [place] [address], [facility] MCH (RBC) [Entitic mass] 29.4 pg Normal 27.0-33.0 [facility] Comment on above: Order Comment: No: D o not add to previous draw Dup Performed By: #### 5 0608 #### [facility] [address] [place] [id number], [facility] MCHC (RBC) [Mass/Vol] 33.9 g/dL Normal 32.0-35.0 [facility] Comment on above: Order Comment: No: D o not add to previous draw Dup Performed By: #### 5 0608 #### [facility] [address] [place] [address], [facility] MCV (RBC) [Entitic vol] 86.8 fL Normal 82.0-98.0 [facility] Comment on above: Order Comment: No: D o not add to previous draw Dup Performed By: #### 5 0608 #### [facility] [address] [facility] [place] [address], [facility] PLAT CNT 101 10*3/uL Low 150-400 [facility] Comment on above: Order Comment: No: D o not add to previous draw Dup Performed By: #### 5 0608 #### [facility] [address] [place] [address], [facility] RBC (Bld) [#/Vol] 2.65 10*6/uL Low 4.20-5.70 [facility] Comment on above: Order Comment: No: D o not add to previous draw Dup Performed By: #### 5 0608 #### [facility] [address] WBC (Bld) [#/Vol] 11.51 10*3/uL High 4.00-10.60 [facility] Comment on above: Order Comment: No: D o not add to previous draw Dup Performed By: #### 5 0608 #### [facility] [address] Erythrocyte distribution width (RBC) [Ratio] 13.2 % Normal 11.5-15.0 [facility] Comment on above: Order Comment: No: D o not add to previous draw Dup Performed By: #### 5 0608 #### [facility] [address] Hematocrit (Bld) [Volume fraction] 24.4 % Low 39.0-50.0 [facility] Comment on above: Performed By: #### 5 0608 #### [facility] [address] Hemoglobin (Bld) [Mass/Vol] 8.1 g/dL Low 13.0-17.0 [facility] Comment on above: Performed By: #### 5 0608 #### [facility] [address] [place] [address], [facility] MCH (RBC) [Entitic mass] 29.1 pg Normal 27.0-33.0 [facility] Comment on above: Performed By: #### 5 0608 #### [facility] [address] [place] [address], [facility] MCHC (RBC) [Mass/Vol] 33.2 g/dL Normal 32.0-35.0 [facility] Comment on above: Performed By: #### 5 0608 #### [facility] [address] [place] [address], [facility] MCV (RBC) [Entitic vol] 87.8 fL Normal 82.0-98.0 T [facility] Comment on above: Performed By: #### 5 0608 #### [facility] [address] [place] [address], [facility] Nucleated RBC/100 WBC (Bld) [Ratio] 0 % Normal 0-0 [facility] Comment on above: Order Comment: No: D o not add to previous draw Dup Performed By: #### 5 0608 #### [facility] [address] [place] [address], [facility] Order Comment: No: D o not add to previous draw Performed By: #### 3 0313 #### [facility] [address] [place] [address], [facility] PLAT CNT 125 10*3/uL Low 150-400 [facility] Comment on above: Performed By: #### 5 0608 #### [facility] [address] [place] [address], [facility] RBC (Bld) [#/Vol] 2.78 10*6/uL Low 4.20-5.70 [facility] Comment on above: Performed By: #### 5 0608 #### [facility] [address] [place] [address], [facility] WBC (Bld) [#/Vol] 14.37 10*3/uL High 4.00-10.60 [facility] Comment on above: Performed By: #### 5 0608 #### [facility] [address] [place] [address], [facility] Erythrocyte distribution width (RBC) [Ratio] 13.1 % Normal 11.5-15.0 [facility] Comment on above: Order Comment: No: D o not add to previous draw Dup Performed By: #### 5 0608 #### [facility] [address] [place] [address], [facility] Hematocrit (Bld) [Volume fraction] 25.4 % Low 39.0-50.0 [facility] Comment on above: Order Comment: No: D o not add to previous draw Dup Performed By: #### 5 0608 #### [facility] [address] [place] [address], [facility] Hemoglobin (Bld) [Mass/Vol] 8.7 g/dL Low 13.0-17.0 [facility] Comment on above: Order Comment: No: D o not add to previous draw Dup Performed By: #### 5 0608 #### [facility] [address] [place] [address], [facility] MCH (RBC) [Entitic mass] 29.6 pg Normal 27.0-33.0 [facility] Comment on above: Order Comment: No: D o not add to previous draw Dup Performed By: #### 5 0608 #### [facility] [address] [place] [address], [facility] MCHC (RBC) [Mass/Vol] 34.3 g/dL Normal 32.0-35.0 [facility] Comment on above: Order Comment: No: D o not add to previous draw Dup Performed By: #### 5 0608 #### [facility] [address] [place] [address], [facility] MCV (RBC) [Entitic vol] 86.4 fL Normal 82.0-98.0 [facility] Comment on above: Order Comment: No: D o not add to previous draw Dup Performed By: #### 5 0608 #### [facility] [address] [place] [address], [facility] PLAT CNT 145 10*3/uL Low 150-400 [facility] Comment on above: Order Comment: No: D o not add to previous draw Dup Performed By: #### 5 0608 #### [facility] [address] [place] [address], [facility] Order Comment: No: D o not add to previous draw Performed By: #### 3 0313 #### [facility] [address] [place] [address], [facility] RBC (Bld) [#/Vol] 2.94 10*6/uL Low 4.20-5.70 [facility] Comment on above: Order Comment: No: D o not add to previous draw Dup Performed By: #### 5 0608 #### [facility] [address] [place] [id number], [facility] WBC (Bld) [#/Vol] 13.47 10*3/uL High 4.00-10.60 [facility] Comment on above: Order Comment: No: D o not add to previous draw Dup Performed By: #### 5 0608 #### [facility] [address] [facility] [place] [address], [facility] Hematocrit (Bld) [Volume fraction] 22.6 % Low 39.0-50.0 [facility] Comment on above: Order Comment: No: D o not add to previous draw Performed By: #### 3 0313 #### [facility] [address] [facility] [place] [address], [facility] Hemoglobin (Bld) [Mass/Vol] 7.7 g/dL Low 13.0-17.0 [facility] Comment on above: Order Comment: No: D o not add to previous draw Performed By: #### 3 [id number] #### [facility] [address] [facility] [address] [place] [address], [facility] MCH (RBC) [Entitic mass] 30.0 pg Normal 27.0-33.0 [facility] Comment on above: Order Comment: No: D o not add to previous draw Performed By: #### 3 [id number] #### [facility] [address] [facility] [place] [address], [facility] MCHC (RBC) [Mass/Vol] 34.1 g/dL Normal 32.0-35.0 [facility] Comment on above: Order Comment: No: D o not add to previous draw Performed By: #### 3 [id number] #### [facility] [address] [place] [address], [facility] [facility] MCV (RBC) [Entitic vol] 87.9 fL Normal 82.0-98.0 T he [facility] Comment on above: Order Comment: No: D o not add to previous draw Performed By: #### 3 0313 #### [facility] [address] [place] [address], [facility] RBC (Bld) [#/Vol] 2.57 10*6/uL Low 4.20-5.70 [facility] Comment on above: Order Comment: No: D o not add to previous draw Performed By: #### 3 0313 #### [facility] [address] [place] [address], [facility] WBC (Bld) [#/Vol] 12.23 10*3/uL High 4.00-10.60 [facility] Comment on above: Order Comment: No: D o not add to previous draw Performed By: #### 3 0313 #### [facility] [address] [place] [address], [facility] Erythrocyte distribution width (RBC) [Ratio] 12.7 % Normal 11.5-15.0 The [facility] Comment on above: Order Comment: No: D o not add to previous draw Performed By: #### 3 0313 #### [facility] [address] [place] [address], [facility] Performed By: #### 5 0608 #### [facility] [address] [place] [address], [place] Hematocrit (Bld) [Volume fraction] 21.9 % Low 39.0-50.0 [facility] Comment on above: Performed By: #### 5 0608 #### [facility] [address] [place] [address], [place] Hemoglobin (Bld) [Mass/Vol] 7.2 g/dL Low 13.0-17.0 The [facility] Comment on above: Performed By: #### 5 0608 #### [facility] [address] [place] [address], [facility] MCH (RBC) [Entitic mass] 29.6 pg Normal 27.0-33.0 [facility] Comment on above: Performed By: #### 5 0608 #### [facility] [address] [place] [address], [facility] MCHC (RBC) [Mass/Vol] 32.9 g/dL Normal 32.0-35.0 [facility] Comment on above: Performed By: #### 5 0608 #### [facility] [address] [facility] [place] [address], [facility] MCV (RBC) [Entitic vol] 90.1 fL Normal 82.0-98.0 T he [facility] Comment on above: Performed By: #### 5 0608 #### [facility] [address] [facility] [address], [facility] PLAT CNT 168 10*3/uL Normal 150-400 The [facility] Comment on above: Performed By: #### 5 0608 #### [facility] [address] [facility] [place] [place] [address], [facility] RBC (Bld) [#/Vol] 2.43 10*6/uL Low 4.20-5.70 The [facility] Comment on above: Performed By: #### 5 0608 #### [facility] [address] [address], [facility] WBC (Bld) [#/Vol] 17.05 10*3/uL High 4.00-10.60 [facility] Comment on above: Performed By: #### 5 0608 #### [facility] [address] [place] [id number], [facility] Hemoglobin (Bld) [Mass/Vol] 7.8 g/dL Low 12.0-17.0 The [facility] Comment on above: Order Comment: No: D o not add to previous draw Dup Performed By: #### 5 0608 #### [facility] [address] [place] [address], [facility] Performed By: #### 8 5499 #### [facility] [address] [place] [address], [facility] COOXIMETRYon 06-07-2019 COHB 2 % Normal The [facility] Comment on above: Performed By: #### 7 0207 ####[facility] [place] [address], [facility] METHB 1 % Normal The [facility] Comment on above: Performed By: #### 7 0207 ####[facility] [place] [address], [facility] Oxygen saturation in Blood 72.8 % Normal 65.0-75.0 The [facility] Comment on above: Performed By: #### 7 0207 ####[facility] [place] [address], [facility] THB 8.5 g/dL Normal The [facility] Comment on above: Performed By: #### 7 0207 ####[facility] [place] [address], [facility] FIBRINOGENon 06-07-2019 FIBRINOGEN 217 mg/dL Normal 150-425 The [facility] Comment on above: Performed By: #### 8 5499 #### [facility] [address] [place] [address], [facility] FRESH FROZEN PLASMA 2 UNITSo n 06-07-2019 PRODUCT CODE 1 E[address] Normal [address] [facility] Comment on above: Performed By: #### 8 7002 #### [facility] [address] [place] [address], [facility] PRODUCT CODE 2 E[address] Normal [address] [facility] Comment on above: Performed By: #### 8 7002 #### [facility] [address] [place] [address], [facility] PRODUCT STATUS 1 PT Normal The [facility] Comment on above: Result Comment: Resu lt changed by IF on 06/07/2019 19:01. The previous value was XM. Result changed by IF on 06/08/2019 00:30. The previous value was IS. Performed By: #### 8 7002 #### [facility] [address] [place] [address], [place] PRODUCT STATUS 2 PT Normal The [facility] Comment on above: Result Comment: Resu lt changed by IF on 06/07/2019 19:01. The previous value was XM. Result changed by IF on 06/07/2019 19:40. The previous value was IS. Result changed by IF on 06/07/2019 21:57. The previous value was XM. Result changed by IF on 06/08/2019 00:30. The previous value was IS. Performed By: #### 8 7002 #### [facility] [address] [place] [address], [place] UNIT ABO 1 AB Normal The [facility] Comment on above: Performed By: #### 8 700 #### [facility] [address] [place] [address], [place] UNIT ABO 2 AB Normal The [facility] Comment on above: Performed By: #### 8 700 #### [facility] [address] [place] [address], [place] UNIT ID 1 [id number] Normal The [facility] Comment on above: Performed By: #### 8 700 #### [facility] [address] [place] [address], [place] UNIT ID 2 [id number] Normal The [facility] Comment on above: Performed By: #### 8 700 #### [facility] [address] [place] [address], [place] UNIT RH 1 Positive Normal The [facility] Comment on above: Performed By: #### 8 7002 #### [facility] [address] [place] [address], [place] UNIT RH 2 Positive Normal The [facility] Comment on above: Performed By: #### 8 7002 #### [facility] [address] [place] [address], [place] LACTATE BLOODon 06-07-2019 Lactate [Moles/Vol] 1.7 mmol/L Normal 0.5-2.2 The [facility] Comment on above: Order Comment: No: D o not add to previous draw Performed By: #### 8 5499 #### [facility] [address] [place] [address], [place] Lactate [Moles/Vol] 1.3 mmol/L Normal 0.5-2.2 The [facility] Comment on above: Order Comment: No: D o not add to previous draw Performed By: #### 8 7002 #### [facility] [address] [place] [address], [place] Lactate [Moles/Vol] 1.4 mmol/L Normal 0.5-2.2 [facility] Comment on above: Performed By: #### 8 5499 #### [facility] [address] [place] [address], [place] MAGNESIUM BLOODon 06-07-2019 Magnesium [Mass/Vol] 2.0 mg/dL Normal 1.9-2.7 The [facility] Comment on above: Order Comment: No: D o not add to previous draw Performed By: #### 8 5499 #### [facility] [address] [place] [address], [place] Magnesium [Mass/Vol] 2.7 mg/dL Normal 1.9-2.7 [facility] Comment on above: Performed By: #### 4 1000, [id number], 42731 ####[facility] [place] [address], [facility] OSMOLALITY BLOODon 9 Osmolality [Osmolality] 292 mOsm/kg Normal 285-305 [facility] Comment on above: Order Comment: No: D o not add to previous draw Performed By: #### 8 7002 #### [facility] [address] [place] [address], [facility] PERFUSION BLOOD PANELon 12-0 BASE EXCESS -2.0 mmol/L Normal -2.0-3.0 [facility] Comment on above: Performed By: #### 8 5499 #### [facility] [address] [place] [address], [facility] Glucose [Mass/Vol] 125 mg/dL High 70-105 [facility] Comment on above: Performed By: #### 8 5499 #### [facility] [address] [place] [address], [facility] Hematocrit (Bld) [Volume fraction] 27 % Low 38-51 [facility] Comment on above: Performed By: #### 8 [id number] #### [facility] [address] [place] [address], [facility] Hemoglobin (Bld) [Mass/Vol] 9.2 g/dL Low 12.0-17.0 [facility] Comment on above: Performed By: #### 8 [id number] #### [facility] [address] [place] [address], [facility] IONIZED CALCIUM 1.36 mmol/L High 1.12-1.32 [facility] Comment on above: Performed By: #### 8 5499 #### [facility] [address] [place] [address], [facility] Oxygen (Bld) [Partial pressure] 300.0 mm[Hg] High 80.0-105.0 [facility] Comment on above: Performed By: #### 8 [id number] #### [facility] [address] [place] [address], [facility] PCO2 50.8 mmHg High 35.0-45.0 [facility] Comment on above: Performed By: #### 8 5499 #### [facility] [address] [place] [address], [facility] pH (Bld) 7.30 [pH] Low 7.35-7.45 [facility] Comment on above: Performed By: #### 8 [id number] #### [facility] [address] [place] [id number], [facility] Potassium [Moles/Vol] 3.6 mmol/L Normal 3.5-4.9 [facility] Comment on above: Performed By: #### 8 5499 #### [facility] [address] [place] [address], [facility] Sodium [Moles/Vol] 138 mmol/L Normal 138-146 [facility] Comment on above: Performed By: #### 8 5499 #### [facility] [address] [place] [address], [facility] BASE EXCESS -6.0 mmol/L Low -2.0-3.0 [facility] Comment on above: Performed By: #### 8 5499 #### [facility] [address] [place] [id number], [facility] Glucose [Mass/Vol] 186 mg/dL High 70-105 [facility] Comment on above: Performed By: #### 8 5499 #### [facility] [address] [place] [id number], [facility] Hematocrit (Bld) [Volume fraction] 21 % Low 38-51 [facility] Comment on above: Performed By: #### 8 [id number] #### [facility] [address] [place] [id number], [facility] Hemoglobin (Bld) [Mass/Vol] 7.1 g/dL Low 12.0-17.0 [facility] Comment on above: Performed By: #### 8 [id number] #### [facility] [address] [place] [address], [facility] IONIZED CALCIUM 1.71 mmol/L Critically high 1.12-1.32 [facility] Comment on above: Performed By: #### 8 [id number] #### [facility] [address] [place] [address], [facility] Oxygen (Bld) [Partial pressure] 112.0 mm[Hg] High 80.0-105.0 [facility] Comment on above: Performed By: #### 8 [id number] #### [facility] [address] [facility] [place] [address], [facility] PCO2 44.6 mmHg Normal 35.0-45.0 [facility] Comment on above: Performed By: #### 8 [id number] #### [facility] [address] [place] [address], [facility] pH (Bld) 7.26 [pH] Low 7.35-7.45 [facility] Comment on above: Performed By: #### 8 [id number] #### [facility] [address] [place] [address], [facility] Potassium [Moles/Vol] 4.2 mmol/L Normal 3.5-4.9 [facility] Comment on above: Performed By: #### 8 [id number] #### [facility] [address] [place] [address], [place] Sodium [Moles/Vol] 132 mmol/L Low 138-146 [facility] Comment on above: Performed By: #### 8 [id number] #### [facility] [address] [place] [address], [facility] BASE EXCESS -6.0 mmol/L Low -2.0-3.0 [facility] Comment on above: Performed By: #### 8 [id number] #### [facility] [address] [place] [address], [facility] Glucose [Mass/Vol] 211 mg/dL High 70-105 [facility] Comment on above: Performed By: #### 8 [id number] #### [facility] [address] [place] [address], [facility] Hematocrit (Bld) [Volume fraction] 21 % Low 38-51 [facility] Comment on above: Performed By: #### 8 [id number] #### [facility] [address] [place] [address], [facility] Hemoglobin (Bld) [Mass/Vol] 7.1 g/dL Low 12.0-17.0 [facility] Comment on above: Performed By: #### 8 [id number] #### [facility] [address] [place] [address], [place] IONIZED CALCIUM 1.71 mmol/L Critically high 1.12-1.32 [facility] Comment on above: Performed By: #### 8 [id number] #### [facility] [address] [place] [address], [facility] Oxygen (Bld) [Partial pressure] 103.0 mm[Hg] Normal 80.0-105.0 [facility] Comment on above: Performed By: #### 8 [id number] #### [facility] [address] [place] [address], [place] PCO2 39.8 mmHg Normal 35.0-45.0 [facility] Comment on above: Performed By: #### 8 [id number] #### [facility] [address] [place] [address], [place] pH (Bld) 7.30 [pH] Low 7.35-7.45 [facility] Comment on above: Performed By: #### 8 [id number] #### [facility] [address] [place] [address], [facility] Potassium [Moles/Vol] 4.1 mmol/L Normal 3.5-4.9 [facility] Comment on above: Performed By: #### 8 [id number] #### [facility] [address] [place] [address], [place] Sodium [Moles/Vol] 130 mmol/L Low 138-146 [facility] Comment on above: Performed By: #### 8 [id number] #### [facility] [address] [place] [address], [facility] BASE EXCESS -2.0 mmol/L Normal -2.0-3.0 [facility] Comment on above: Performed By: #### 3 0738 #### [facility] [address] [place] [address], [facility] Glucose [Mass/Vol] 219 mg/dL High 70-105 [facility] Comment on above: Performed By: #### 3 0738 #### [facility] [address] [place] [address], [facility] Hematocrit (Bld) [Volume fraction] 26 % Low 38-51 [facility] Comment on above: Performed By: #### 3 0738 #### [facility] [address] [place] [address], [facility] Hemoglobin (Bld) [Mass/Vol] 8.8 g/dL Low 12.0-17.0 [facility] Comment on above: Performed By: #### 3 0738 #### [facility] [address] [place] [address], [facility] IONIZED CALCIUM 1.07 mmol/L Low 1.12-1.32 [facility] Comment on above: Performed By: #### 3 0738 #### [facility] [address] [place] [address], [facility] Oxygen (Bld) [Partial pressure] 308.0 mm[Hg] High 80.0-105.0 [facility] Comment on above: Performed By: #### 3 0738 #### [facility] [address] [place] [address], [place] PCO2 33.2 mmHg Low 35.0-45.0 [facility] Comment on above: Performed By: #### 3 0738 #### [facility] [address] [place] [address], [place] pH (Bld) 7.42 [pH] Normal 7.35-7.45 [facility] Comment on above: Performed By: #### 3 0738 #### [facility] [address] [place] [address], [place] Potassium [Moles/Vol] 5.3 mmol/L High 3.5-4.9 [facility] Comment on above: Performed By: #### 3 0738 #### [facility] [address] [place] [address], [place] Sodium [Moles/Vol] 130 mmol/L Low 138-146 [facility] Comment on above: Performed By: #### 3 0738 #### [facility] [address] [place] [address], [place] BASE EXCESS 0.0 mmol/L Normal -2.0-3.0 [facility] Comment on above: Performed By: #### 8 [id number] #### [facility] [address] [place] [address], [place] Glucose [Mass/Vol] 187 mg/dL High 70-105 [facility] Comment on above: Performed By: #### 8 [id number] #### [facility] [address] [place] [address], [place] Hematocrit (Bld) [Volume fraction] 23 % Low 38-51 [facility] Comment on above: Performed By: #### 8 [id number] #### [facility] [address] [place] [address], [facility] IONIZED CALCIUM 1.13 mmol/L Normal 1.12-1.32 [facility] Comment on above: Performed By: #### 8 [id number] #### [facility] [address] [facility] Oxygen (Bld) [Partial pressure] 434.0 mm[Hg] High 80.0-105.0 [facility] Comment on above: Performed By: #### 8 [id number] #### [facility] [address] [facility] [place] [address], [facility] PCO2 37.2 mmHg Normal 35.0-45.0 [facility] Comment on above: Performed By: #### 8 [id number] #### [facility] [address] [facility]. [address] pH (Bld) 7.43 [pH] Normal 7.35-7.45 [facility] Comment on above: Performed By: #### 8 [id number] #### [facility] [address] [facility] [place] [address], [facility] Potassium [Moles/Vol] 4.7 mmol/L Normal 3.5-4.9 [facility] Comment on above: Performed By: #### 8 [id number] #### [facility] [address] [facility] [place] [address], [facility] Sodium [Moles/Vol] 131 mmol/L Low 138-146 [facility] Comment on above: Performed By: #### 8 [id number] #### [facility] [address] [place] [address], [facility] BASE EXCESS -2.0 mmol/L Normal -2.0-3.0 [facility] Comment on above: Performed By: #### 8 5499 #### [facility] [address] [place] [address], [place] Glucose [Mass/Vol] 163 mg/dL High 70-105 [facility] Comment on above: Performed By: #### 8 [id number] #### [facility] [address] [place] [address], [place] Hematocrit (Bld) [Volume fraction] 28 % Low 38-51 [facility] Comment on above: Performed By: #### 8 [id number] #### [facility] [address] [place] [address], [place] Hemoglobin (Bld) [Mass/Vol] 9.5 g/dL Low 12.0-17.0 [facility] Comment on above: Performed By: #### 8 [id number] #### [facility] [address] [place] [address], [facility] IONIZED CALCIUM 1.12 mmol/L Normal 1.12-1.32 [facility] Comment on above: Performed By: #### 8 [id number] #### [facility] [address] [place] [address], [place] Oxygen (Bld) [Partial pressure] 372.0 mm[Hg] High 80.0-105.0 [facility] Comment on above: Performed By: #### 8 [id number] #### [facility] [address] [place] [address], [place] PCO2 39.6 mmHg Normal 35.0-45.0 [facility] Comment on above: Performed By: #### 8 [id number] #### [facility] [address] [place] [address], [place] pH (Bld) 7.37 [pH] Normal 7.35-7.45 [facility] Comment on above: Performed By: #### 8 [id number] #### [facility] [address] [place] [address], [place] Potassium [Moles/Vol] 4.3 mmol/L Normal 3.5-4.9 [facility] Comment on above: Performed By: #### 8 [id number] #### [facility] [address] [place] [address], [facility] Sodium [Moles/Vol] 131 mmol/L Low 138-146 [facility] Comment on above: Performed By: #### 8 [id number] #### [facility] [address] [place] [address], [facility] BASE EXCESS -3.0 mmol/L Low -2.0-3.0 [facility] Comment on above: Performed By: #### 8 [id number] #### [facility] [address] [place] [address], [facility] Glucose [Mass/Vol] 159 mg/dL High 70-105 [facility] Comment on above: Performed By: #### 8 [id number] #### [facility] [address] [facility] [place] [address], [facility] Hematocrit (Bld) [Volume fraction] 30 % Low 38-51 [facility] Comment on above: Performed By: #### [id number] #### [facility] [address] [place] [address], [facility] Hemoglobin (Bld) [Mass/Vol] 10.2 g/dL Low 12.0-17.0 [facility] Comment on above: Performed By: #### [id number] #### [facility] [address] [facility] [place] [address], [facility] IONIZED CALCIUM 1.18 mmol/L Normal 1.12-1.32 [facility] Comment on above: Performed By: #### [id number] #### [facility] [address] [place] [address], [facility] Oxygen (Bld) [Partial pressure] 207.0 mm[Hg] High 80.0-105.0 [facility] Comment on above: Performed By: #### [id number] #### [facility] [address] [place] [address], [facility] PCO2 41.7 mmHg Normal 35.0-45.0 [facility] Comment on above: Performed By: #### [id number] #### [facility] [address] [place] [address], [facility] pH (Bld) 7.34 [pH] Low 7.35-7.45 [facility] - [place] Comment on above: Performed By: #### 8 [id number] #### [facility] [address] [place] [id number], [facility] Potassium [Moles/Vol] 4.3 mmol/L Normal 3.5-4.9 [facility] Comment on above: Performed By: #### 8 [id number] #### [facility] [address] [place] [address], [facility] Sodium [Moles/Vol] 132 mmol/L Low 138-146 [facility] Comment on above: Performed By: #### 8 [id number] #### [facility] [address] [place] [address], [facility] Hematocrit (Bld) [Volume fraction] 30 % Low 38-51 [facility] Comment on above: Performed By: #### 8 [id number] #### [facility] [address] [place] [id number], [facility] Hemoglobin (Bld) [Mass/Vol] 10.2 g/dL Low 12.0-17.0 [facility] Comment on above: Performed By: #### 8 [id number] #### [facility] [address] [place] [id number], [facility] Oxygen (Bld) [Partial pressure] 48.0 mm[Hg] Normal [facility] Comment on above: Performed By: #### 8 [id number] #### [facility] [address] [place] [address], [facility] BASE EXCESS -1.0 mmol/L Normal -2.0-3.0 [facility] Comment on above: Performed By: #### 8 [id number] #### [facility] [address] [place] [address], [place] Glucose [Mass/Vol] 113 mg/dL High 70-105 [facility] Comment on above: Performed By: #### 8 [id number] #### [facility] [address] [place] [address], [facility] Hematocrit (Bld) [Volume fraction] 28 % Low 38-51 [facility] Comment on above: Performed By: #### 8 [id number] #### [facility] [address] [place] [address], [facility] Hemoglobin (Bld) [Mass/Vol] 9.5 g/dL Low 12.0-17.0 [facility] Comment on above: Performed By: #### 8 [id number] #### [facility] [address] [place] [address], [facility] IONIZED CALCIUM 1.18 mmol/L Normal 1.12-1.32 [facility] Comment on above: Performed By: #### 8 [id number] #### [facility] [address] [place] [address], [facility] Oxygen (Bld) [Partial pressure] 250.0 mm[Hg] High 80.0-105.0 [facility] Comment on above: Performed By: #### 8 [id number] #### [facility] [address] [place] [address], [facility] PCO2 36.1 mmHg Normal 35.0-45.0 [facility] Comment on above: Performed By: #### 8 [id number] #### [facility] [address] [place] [address], [facility] pH (Bld) 7.42 [pH] Normal 7.35-7.45 [facility] Comment on above: Performed By: #### 8 [id number] #### [facility] [address] [place] [address], [place] Potassium [Moles/Vol] 4.1 mmol/L Normal 3.5-4.9 [facility] Comment on above: Performed By: #### 8 [id number] #### [facility] [address] [place] [address], [place] Sodium [Moles/Vol] 130 mmol/L Low 138-146 [facility] Comment on above: Performed By: #### 8 [id number] #### [facility] [address] [place] [address], [place] PHOSPHORUS BLOODon 9 Phosphate [Mass/Vol] 3.8 mg/dL Normal 2.5-5.0 [facility] Comment on above: Order Comment: No: D o not add to previous draw Performed By: #### 8 [id number] #### [facility] [address] [place] [address], [place] Phosphate [Mass/Vol] 3.4 mg/dL Normal 2.5-5.0 [facility] Comment on above: Performed By: #### 4 1000, [id number], 10843 ####[facility] [place] [address], [place] POC GLUCOSE LABon 06-07-2019 Glucose [Mass/Vol] 104 mg/dL High 70-100 [facility] Comment on above: Performed By: #### 8 [id number] #### [facility] [address] [place] [address], [place] Glucose [Mass/Vol] 120 mg/dL High 70-100 [facility] Comment on above: Performed By: #### 8 [id number] ####[facility] [place] [address], [place] Glucose [Mass/Vol] 146 mg/dL High 70-100 [facility] Comment on above: Performed By: #### 8 [id number] #### [facility] [address] [facility] [place] [address], [place] Glucose [Mass/Vol] 151 mg/dL High 70-100 [facility] Comment on above: Performed By: #### 8 [id number] #### [facility] [address] [facility] [place] [address], [place] Glucose [Mass/Vol] 150 mg/dL High 70-100 [facility] Comment on above: Performed By: #### 8 [id number] #### [facility] [address] [facility] [place] [address], [place] Glucose [Mass/Vol] 128 mg/dL High 70-100 [facility] Comment on above: Performed By: #### 8 [id number] #### [facility] [address] [facility] [place] [address], [facility] PORTABLE CHEST 1 VIEW 12-0 PORTABLE CHEST 1 VIEW [facility] Department of Radiology [address] [place] [id number] Patient Name: JASON BARTHOLOMEW : 1945 Sex: M Age: Race: White Pt. Location: [id number] Patient Status: I Ordered Date: 06/07/2019 1:45:00 [...] chest tube. No evidence of right-sided pneumothorax. [place]-Teresa catheter present tip is just inside the [...] pneumothorax Electronically signed by:Paige Hameed. Transcribed by: [email or web address], User Resident: Electronically Signed by: PAIGE HAMEED @ 06/07/2019 03:11 PM Normal [facility] Comment on above: Order Comment: Check Chest Tube Position, ON ARRIVAL TO CVU PORTABLE CHEST FOREIGN BODYo n 06-07-2019 PORTABLE CHEST FOREIGN BODY [facility] Department of Radiology [address] [place] [id number] Patient Name: JASON BARTHOLOMEW : 1945 Sex: M Age: Race: White Pt. Location: [id number] Patient Status: I Ordered Date: 06/07/2019 7:00:00 [...] mediastinal drain, ET tube, enteric tube, and [place]-Teresa catheter are in satisfactory position with no [...] findings. Electronically signed by:Noreen Menendez. Transcribed by: [email or web address], User Resident: NICHOLAS DHAYIHI Electronically Signed by: NOREEN MENENDEZ @ 06/08/2019 06:13 AM I personally read this/these film(s) with this resident Normal [facility] Comment on above: Order Comment: R/O f quinn body PROTHROMBIN TIMEon 9 INR Coag (PPP) [Relative time] 1.44 {INR} High 0.91-1.16 [facility] Comment on above: Result Comment: ACCC P [...] 1995;108:231S-246S. Performed By: #### 8 [id number] #### [facility] [address] [place] [address], [facility] PT Coag (PPP) [Time] 17.7 s High 12.3-14.8 [facility] Comment on above: Result Comment: ALL RESULTS MUST BE INTERPRETED WITH RESPECT TO BLOOD DRAWING ARTIFACT OR DILUTION ERROR OF ANTICOAGULANT AT THE TIME OF SAMPLING. Performed By: #### 8 [id number] #### [facility] [address] [place] [id number], [place] INR Coag (PPP) [Relative time] 1.33 {INR} High 0.91-1.16 [facility] Comment on above: Order Comment: No: D o not add to previous draw Result Comment: [facility] P RECOMMENDED INR FOR WARFARIN THERAPY ------- [...] 1995;108:231S-246S. Performed By: #### 8 [id number] #### [facility] [address] [facility]. [address] PT Coag (PPP) [Time] 16.6 s High 12.3-14.8 [facility] Comment on above: Order Comment: No: D o not add to previous draw Result Comment: ALL RESULTS MUST BE INTERPRETED WITH RESPECT TO BLOOD DRAWING ARTIFACT OR DILUTION ERROR OF ANTICOAGULANT AT THE TIME OF SAMPLING. Performed By: #### 8 [id number] #### [facility] [address] [facility] [place] [address], [facility] INR Coag (PPP) [Relative time] 1.42 {INR} High 0.91-1.16 [facility] Comment on above: Result Comment: [facility] P RECOMMENDED INR FOR WARFARIN THERAPY ------- [...] 1995;108:231S-246S. Performed By: #### 8 [id number] #### [facility] [address] [place] [address], [facility] PT Coag (PPP) [Time] 17.5 s High 12.3-14.8 [facility] Comment on above: Result Comment: ALL RESULTS MUST BE INTERPRETED WITH RESPECT TO BLOOD DRAWING ARTIFACT OR DILUTION ERROR OF ANTICOAGULANT AT THE TIME OF SAMPLING. Performed By: #### 8 [id number] #### [facility] [address] [place] [address], [facility] RBC'S 2 UNITSon 06-07-2019 CROSSMATCH INTERP 1 COMP Normal [facility] Comment on above: Performed By: #### 8 [id number] ####[facility] [facility] [place] [address], [facility] CROSSMATCH INTERP 2 COMP Normal [facility] Comment on above: Performed By: #### 8 [id number] ####[facility] [place] [address], [facility] PRODUCT CODE 1 E[address] [facility] Comment on above: Performed By: #### 8 [id number] ####[facility] [place] [address], [facility] PRODUCT CODE 2 E0336 Normal The [facility] Comment on above: Performed By: #### 8 [id number] ####[facility] [place] [address], [facility] PRODUCT STATUS 1 PT Normal The [facility] Comment on above: Result Comment: Resu lt changed by IF on 06/07/2019 18:23. The previous value was XM. Result changed by IF on 06/07/2019 19:40. The previous value was IS. Result changed by IF on 06/08/2019 04:52. The previous value was XM. Result changed by IF on 06/09/2019 00:30. The previous value was IS. Performed By: #### 8 [id number] ####[facility] [place] [address], [facility] PRODUCT STATUS 2 PT Normal The [facility] Comment on above: Result Comment: Resu lt changed by IF on 06/07/2019 18:23. The previous value was XM. Result changed by IF on 06/07/2019 19:40. The previous value was IS. Result changed by IF on 06/08/2019 03:43. The previous value was XM. Result changed by IF on 06/09/2019 00:30. The previous value was IS. Performed By: #### 8 [id number] ####[facility] UNIT ABO 1 AB Normal [facility] Comment on above: Performed By: #### 8 [id number] ####[facility] [place] [address], [facility] UNIT ABO 2 AB Normal [facility] Comment on above: Performed By: #### 8 [id number] ####[facility] [place] [address], [facility] UNIT ID 1 [id number] Normal The [facility] Comment on above: Performed By: #### 8 [id number] ####[facility] [place] [address], [facility] UNIT ID 2 [id number] Normal The [facility] Comment on above: Performed By: #### 8 [id number] ####[facility] [place] [address], [facility] UNIT RH 1 Positive Normal [facility] Comment on above: Performed By: #### 8 [id number] ####[facility] [place] [address], [place] UNIT RH 2 Positive Normal [facility] Comment on above: Performed By: #### 8 [id number] ####[facility] [place] [address], [place] CROSSMATCH INTERP 1 COMP Normal [facility] Comment on above: Performed By: #### 8 [id number] #### [facility] [address] [place] [address], [place] CROSSMATCH INTERP 2 COMP Normal [facility] Comment on above: Performed By: #### 8 [id number] #### [facility] [address] [place] [address], [place] PRODUCT CODE 1 E0336 Normal [address] [facility] Comment on above: Performed By: #### 8 [id number] #### [facility] [address] [place] [address], [place] PRODUCT CODE 2 E0336 Normal [address] [facility] Comment on above: Performed By: #### 8 [id number] #### [facility] [address] [place] [address], [place] PRODUCT STATUS 1 PT Normal The [facility] Comment on above: Result Comment: Resu lt changed by IF on 06/07/2019 09:27. The previous value was XM. Result changed by IF on 06/07/2019 14:24. The previous value was IS. Result changed by IF on 06/07/2019 15:56. The previous value was XM. Result changed by IF on 06/08/2019 00:30. The previous value was IS. Performed By: #### 8 [id number] #### [facility] [address] PRODUCT STATUS 2 PT Normal [facility] Comment on above: Result Comment: Resu lt changed by IF on 06/07/2019 09:27. The previous value was XM. Result changed by IF on 06/07/2019 14:24. The previous value was IS. Result changed by IF on 06/07/2019 17:35. The previous value was XM. Result changed by IF on 06/08/2019 00:30. The previous value was IS. Performed By: #### 8 [id number] #### [facility] [address] UNIT ABO 1 AB Normal [facility] Comment on above: Performed By: #### 8 [id number] #### [facility] [address] UNIT ABO 2 AB Normal [facility] Comment on above: Performed By: #### 8 [id number] #### [facility] [address] UNIT ID 1 [id number] Normal The [facility] Comment on above: Performed By: #### 8 [id number] #### [facility] [address] [place] [address], [facility] UNIT ID 2 [id number] Normal The [facility] Comment on above: Performed By: #### 8 [id number] #### [facility] [address] [place] [address], [facility] UNIT RH 1 Positive Normal [facility] Comment on above: Performed By: #### 8 [id number] #### [facility] [address] [place] [address], [facility] UNIT RH 2 Positive Normal [facility] Comment on above: Performed By: #### 8 [id number] #### [facility] [address] [place] [address], [facility] UFH HEPARIN ASSAYon 06-07-20 UNFRACTIONATED HEPARIN 0.18 IU/mL Low 0.30-0.70 Th e [facility] Comment on above: Result Comment: [place] roxaban and Apixaban will interfere with the anti Xa assay used to monitor UFH and LMWH. Added per Protocol Performed By: #### 8 [id number] #### [facility] [address] [place] [address], [facility] UNFRACTIONATED HEPARIN 0.40 IU/mL Normal 0.30-0.70 Th e [facility] Comment on above: Result Comment: [place] roxaban and Apixaban will interfere with the anti Xa assay used to monitor UFH and LMWH. UFH add per Protocol Performed By: #### 8 [id number] #### [facility] [address] [facility]. [address] Vital Signs Date Time Vital Sign Value Performing Clinician Facility 04-26-2024 13:48-0400 Body temperature 97.7 [degF] Lexi Dwayne WATER SERVICE DISPATCHER-HUMAN RELATIONS MANAGER Work Phone: [facility] 04-26-2024 13:48-0400 Diastolic blood pressure 65 mm[Hg] Lexi Dwayne WATER SERVICE DISPATCHER-HUMAN RELATIONS MANAGER Work Phone: [facility] 04-26-2024 13:48-0400 Heart rate 74 /min Lexi Dwayne WATER SERVICE DISPATCHER-HUMAN RELATIONS MANAGER Work Phone: [facility] 04-26-2024 13:48-0400 Respiratory rate 16 /min Lexi Dwayne WATER SERVICE DISPATCHER-HUMAN RELATIONS MANAGER Work Phone: [facility] 04-26-2024 13:48-0400 Systolic blood pressure 107 mm[Hg] Lexi Dwayne WATER SERVICE DISPATCHER-HUMAN RELATIONS MANAGER Work Phone: [facility] 04-19-2024 10:34-0400 Body temperature 97.5 [degF] Lion Lloyd WATER SERVICE DISPATCHER-HUMAN RELATIONS MANAGER Work Phone: [facility] 04-19-2024 10:34-0400 Diastolic blood pressure 78 mm[Hg] Lion Lloyd WATER SERVICE DISPATCHER-HUMAN RELATIONS MANAGER Work Phone: [facility] 04-19-2024 10:34-0400 Heart rate 90 /min Lion Lloyd WATER SERVICE DISPATCHER-HUMAN RELATIONS MANAGER Work Phone: [facility] 04-19-2024 10:34-0400 Respiratory rate 16 /min Lion Lloyd WATER SERVICE DISPATCHER-HUMAN RELATIONS MANAGER Work Phone: [facility] 04-19-2024 10:34-0400 Systolic blood pressure 160 mm[Hg] Lion Lloyd WATER SERVICE DISPATCHER-HUMAN RELATIONS MANAGER Work Phone: [facility] 04-10-2024 10:54-0400 Body height 175.3 cm Idris Jose MD Work Phone: [facility] 04-10-2024 10:54-0400 Body mass index (BMI) [Ratio] 27.47 kg/m2 Idris Jose MD Work Phone: [facility] 04-10-2024 10:54-0400 Body temperature 97.11 [degF] Idris Jose MD Work Phone: [facility] 04-10-2024 10:54-0400 Body weight 84.37 kg Idris Jose MD Work Phone: [facility] 04-10-2024 10:54-0400 Diastolic blood pressure 76 mm[Hg] Idris Jose MD Work Phone: [facility] 04-10-2024 10:54-0400 Heart rate 102 /min Idris Jose MD Work Phone: [facility] 04-10-2024 10:54-0400 Respiratory rate 20 /min Idris Jose MD Work Phone: [facility] 04-10-2024 10:54-0400 SaO2% (BldA) [Mass fraction] 98 % Idris Jose MD Work Phone: [facility] 04-10-2024 10:54-0400 Systolic blood pressure 150 mm[Hg] Idris Jose MD Work Phone: [facility] 07-28-2023 14:00-0500 Body height 175.26 cm Sonali Catie Other [employer] Other 07-28-2023 14:00-0500 Body mass index (BMI) [Ratio] 28.35 kg/m2 Sonali Catie Other [employer] Other 07-28-2023 14:00-0500 Body temperature 97.6 [degF] Snoali Catie Other [employer] Other 07-28-2023 14:00-0500 Body weight 87.09 kg Sonali Catie Other [employer] Other 07-28-2023 14:00-0500 Diastolic blood pressure 84 mm[Hg] Sonali Catie Other [facility] Other 07-28-2023 14:00-0500 Respiratory rate 18 /min Sonali Weavermond Other [facility] Other 07-28-2023 14:00-0500 SaO2% (BldA) [Mass fraction] 97 % Sonali Catie Other [employer] Other 07-28-2023 14:00-0500 Systolic blood pressure 114 mm[Hg] Sonali Catie Other [employer] Other 07-21-2022 14:00-0500 Body height 175.26 cm Kylah Valenzuela Other [employer] Other 07-21-2022 14:00-0500 Body mass index (BMI) [Ratio] 27.32 kg/m2 Kylah Valenzuela Other [facility] [employer] Other 07-21-2022 14:00-0500 Body weight 83.92 kg Kylah Valenzuela Other [employer] Other 07-06-2022 08:35-0500 Diastolic blood pressure 80 mm[Hg] MD Idris Jose Work Phone: [facility] 07-06-2022 08:35-0500 Heart rate 63 /min MD Idirs Jose Work Phone: [facility] 07-06-2022 08:35-0500 Respiratory rate 16 /min MD Idris Jose Work Phone: [facility] 07-06-2022 08:35-0500 SaO2% (BldA) [Mass fraction] 95 % MD Idris Jose Work Phone: [facility] 07-06-2022 08:35-0500 Systolic blood pressure 159 mm[Hg] MD Idris Jose Work Phone: [facility] 07-06-2022 07:37-0500 Body mass index (BMI) [Ratio] 27.3 kg/m2 MD Idirs Jose Work Phone: [facility] 07-06-2022 07:27-0500 Body height 175.26 cm MD Idris Jose Work Phone: [facility] 07-06-2022 07:27-0500 Body weight 83.91 kg MD Idris Jose Work Phone: [facility] 07-06-2022 06:11-0500 Body temperature 97.9 [degF] MD Idris Jose Work Phone: [facility] 03-18-2022 11:20-0400 Body height 175.26 cm Darien Escamilla Other [employer] Other 03-18-2022 11:20-0400 Body mass index (BMI) [Ratio] 27.32 kg/m2 Darien Escamilla Other [employer] Other 03-18-2022 11:20-0400 Body weight 83.92 kg Darien Escamilla Other [employer] Other 05-01-2021 11:40-0400 Body height 175.26 cm Sonali Catie Other [employer] Other 05-01-2021 11:40-0400 Body mass index (BMI) [Ratio] 28.06 kg/m2 Sonali Catie Other [employer] Other 05-01-2021 11:40-0400 Body temperature 96.4 [degF] Snoali Catie Other [employer] Other 05-01-2021 11:40-0400 Body weight 86.18 kg Sonali Catie Other [facility] Other 05-01-2021 11:40-0400 Diastolic blood pressure 71 mm[Hg] Sonali Catie Other [employer] Other 05-01-2021 11:40-0400 Respiratory rate 18 /min Sonali Catie Other [employer] Other 05-01-2021 11:40-0400 SaO2% (BldA) [Mass fraction] 99 % Sonali Catie Other [employer] Other 05-01-2021 11:40-0400 Systolic blood pressure 161 mm[Hg] Sonali Catie Other [employer] Other 06-07-2019 22:15-0500 Respiratory rate 12 /min JANETH HUTTON [facility] Comment on above: Performed By: #### [id number] ####[facility] 06-07-2019 16:49-0500 Respiratory rate 12 /min JANETH HUTTON [facility] Comment on above: Order Comment: R/O Pneumothorax Performed By: #### [id number] ####[facility] Encounters Encounter Date Encounter Type Care Provider Facility Start: 04-29-2024 End: 04-29-2024 ambulatory [facility] Start: 04-26-2024 End: 04-26-2024 ambulatory LEXI GOLDMAN [facility] Start: 04-26-2024 End: 04-26-2024 Patient encounter procedure Lion Agarwaliván WATER SERVICE DISPATCHER-HUMAN RELATIONS MANAGER Work Phone: [facility] Comment on above: 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); Hematoma of right lower leg Start: 04-22-2024 End: 04-22-2024 Telephone encounter Lexi Quiroz RN [facility] Comment on above: Care Navigation Start: 04-19-2024 End: 04-19-2024 ambulatory LION Funmi PREMA [facility] Start: 04-19-2024 End: 04-19-2024 Office outpatient new 20 minutes Lion Funmi Prema WATER SERVICE DISPATCHER-HUMAN RELATIONS MANAGER Work Phone: [facility] Comment on above: 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); Hematoma of right lower leg Start: 04-10-2024 End: 04-10-2024 Gareth Jose MD Work Phone: [facility] Start: 04-10-2024 End: 04-10-2024 Bamboo flowsheet Idris Jose MD Work Phone: [facility] Start: 04-10-2024 End: 04-10-2024 Office outpatient visit 15 minutes Idris Jose MD Work Phone: [facility] Comment on above: Cellulitis of right lower leg (Primary Dx); Wound of right leg, subsequent encounter Start: 04-10-2024 End: 04-10-2024 ambulatory IDRIS JOSE Not Available Start: 03-28-2024 End: 03-28-2024 ambulatory IDRIS JOSE Not Available Start: 03-12-2024 End: 03-12-2024 ambulatory [facility] Start: 12-04-2023 End: 12-04-2023 ambulatory IDRIS JOSE Not Available Start: 10-18-2023 End: 10-18-2023 ambulatory [facility] Start: 09-28-2023 End: 09-28-2023 ambulatory [facility] Start: 09-12-2023 End: 09-12-2023 ambulatory [facility] Start: 08-21-2023 End: 08-21-2023 ambulatory RAHEL Herron [employer]PL[employer] Not Available Start: 08-09-2023 Clinis[facility] Result Encounter Generic External Data Provider [facility] External Department Unsolicited Start: 08-09-2023 [facility]inis[facility] Result Encounter Generic External Data Provider [facility] External Department Unsolicited Start: 07-28-2023 End: 07-28-2023 ambulatory Sonali Haddad Other [employer] Other Start: 07-28-2023 Office outpatient visit 15 minutes Sonali Haddad [facility] [place] Start: 05-04-2023 ambulatory [facility] Start: 11-30-2022 ambulatory SHAIKH Iván Dooley y:H1 Start: 11-17-2022 End: 11-18-2022 ambulatory Iván NUNU Facility:H1 Start: 11-14-2022 End: 11-15-[address] RAJENDRA FRANCO Facility:H1 Start: 08-12-2022 End: 08-13-[address] DOCTOR LADD Facility:H1 Start: 07-21-2022 End: 07-21-2022 ambulatory Kylah Valenzuela Other [employer] Other Start: 07-21-2022 Postop follow up vis it related to original px Kylah Valenzuela [facility] Start: 07-06-2022 End: 07-06-2022 ambulatory Idris Jose Facility:[facility] Start: 07-06-2022 End: 07-06-2022 Admission to same day surgery center MD Idris Jose Work Phone: [facility] [place] Start: 07-06-2022 End: 07-06-2022 ambulatory MD Idris Jose Work Phone: [facility] Work Phone: Start: 06-22-2022 End: 06-22-2022 ambulatory Idris Jose Facility:[facility] Start: 06-22-2022 End: 06-22-2022 ambulatory MD Idris Jose Work Phone: [facility] Work Phone: Start: 06-22-2022 End: 06-22-2022 Patient encounter procedure MD Idris Jose Work Phone: [facility] Start: 06-02-2022 End: 06-02-2022 ambulatory Darien Escamilla Other [facility] [employer] Other Start: 06-02-2022 Office outpatient visit 25 minutes Darien Escamilla [facility] Start: 05-12-2022 End: 05-12-[address] EB BETANCOURT . Facility:H1 Start: 04-19-2022 End: 04-20-[address] IDRIS JOSE Facility:H1 Start: 04-02-2022 End: 04-03-[address] IDRIS JOSE Facility:H1 Start: 03-18-2022 End: 03-18-2022 ambulatory Darien Escamilla Other [facility] [employer] Other Start: 03-18-2022 Office outpatient visit 15 minutes Darien Escamilla [facility] Start: 02-09-2022 End: 02-10-[address] IDRIS JOSE Facility:H1 Start: 02-02-2022 End: 02-03-[address] ISH STOVER Facility:H1 Start: 01-28-2022 ambulatory Facility:[id number] Start: 01-28-2022 End: 01-28-2022 ambulatory Idris Jose Facility:[facility] Start: 01-12-2022 ambulatory Facility:[id number] Start: 01-12-2022 End: 01-12-2022 ambulatory Idris Jose Facility:[facility] Start: 01-07-2022 End: 01-08-[address] DOCTOR LADD Facility:H1 Start: 12-15-2021 End: 12-16-[address] PAPITO GUAMAN Facility:H1 Start: 12-14-2021 End: 12-15-[address] IDRIS JOSE Facility:H1 Start: 05-01-2021 Office outpatient visit 15 minutes Sonali Haddad [facility] [place] Start: 06-07-2019 End: 06-13-2019 Evaluation and management of inpatient [facility] Facility:[facility] Procedures Date Procedure Procedure Detail Performing Clinician Start: 04-26-2024 NURSING COMMUNICATION A yandy Lloyd WATER SERVICE DISPATCHER-HUMAN RELATIONS MANAGER Work Phone: Start: 08-09-2023 [facility] CBC WITH PLATEL ET NO DIFFERENTIAL Generic External Data Provider Start: 11-17-[address] RAJENDRA FRANCO Comment on above: Performed By: #### M G, BMP, URIC, ALB, PHOS #### [facility] [address] [place] [address] Dr. Terence Love Start: 07-06-2022 Decompression of med yakelin nerve MD Idris Jose Work Phone: Start: 12-14-[address] RAJENDRA FRANCO Comment on above: Performed By: #### M G, BMP, URIC, ALB, PHOS #### [facility] [address] [address] [address] Terence Love Start: 06-12-2019 INSERTION OF [...] Treatment Date Care Activity Detail Author Start: 03-23-2034 DTaP,Tdap and Td Vaccines (2 - Td or Tdap) DTaP,Tdap and Td Vaccines (2 - Td or Tdap) [facility] Start: 03-06-2025 Urine screening for protein Diabetes: Urine Protein Screening [facility] Start: 05-03-2024 End: 05-03-2024 Patient encounter procedure 05/03/2024 2:00 PM EDT Office Visit [facility] [address] [place] [address] Lion Lloyd, WATER SERVICE DISPATCHER-HUMAN RELATIONS MANAGER [address] [place] [address] Lexi Goldman, WATER SERVICE DISPATCHER-HUMAN RELATIONS MANAGER [address] [place] [address] [facility] Start: 05-01-2024 End: 05-01-2024 Patient encounter procedure 05/01/2024 11:30 AM EDT Office Visit [facility] [address] [place] [address] Idris Jose MD [address] [place] [address] [facility] Start: 04-26-2024 End: 04-26-2024 Patient encounter procedure 04/26/2024 1:40 PM EDT Office Visit [facility] [address] [place] [address] Lion Lloyd, WATER SERVICE DISPATCHER-HUMAN RELATIONS MANAGER [address] [place] [address] Lexi Goldman, WATER SERVICE DISPATCHER-HUMAN RELATIONS MANAGER [address] [place] [address] [facility] Start: 03-03-2024 COVID-19 Vaccine ( season) COVID-19 Vaccine ( season) [facility] Start: 03-03-2024 Influenza vaccination [facility] Start: 02-15-2024 Adult BMI Screening Adult BMI Screening [facility] Start: 02-15-2024 Tobacco Screening Tobacco Screening [facility] Start: 03-03-2023 Influenza vaccination Influenza Vaccine (#1) [facility] Start: 07-06-2022 End: 07-06-2022 [facility] Start: 12-01-2017 Hemoglobin A1c measurement Diabetes: Hemoglobin A1C [facility] Start: 2008 Fall Risk Screening Fall Risk Screening [facility] Start: 1993 Administration of varicella zoster vaccine Zoster (Shingles) Vaccine (1 of 2) [facility] Start: 1962 Administration of varicella zoster vaccine Zoster (Shingles) Vaccine (1 of 2) [facility] Start: 1962 Urine screening for protein Diabetes: Urine Protein Screening [facility] Start: 1955 Depression Screening Depression Screening [facility] Start: 1953 Glaucoma screening Diabetes: Retinopathy Screening [facility] Start: 1945 Medicare Annual Wellness (AWV) Medicare Annual Wellness (AWV) [facility] Start: 1945 Medicare Annual Wellness Visit Medicare Annual Wellness Visit [facility] Patient referral [facility] Work Phone: Immunizations Immunization Date Immunization Notes Care Provider Fa cili 05-11-2023 influenza virus vaccine, unspecified formulation Idris Jose MD Work Phone: [facility] 05-06-2022 COVID-19 mRNA Bivale nt Booster (Moderna) MD Idris Jose Work Phone: [facility] 05-06-2022 influenza virus vaccine, unspecified formulation Generic Provider [facility] 09-02-2020 COVID-19 mRNA-1273 (Moderna) MD Idris Jose Work Phone: [facility] 08-05-2020 COVID-19 mRNA-1273 (Moderna) MD Idris Jose Work Phone: [facility] 06-04-2014 influenza virus vaccine, unspecified formulation Lion Lloyd WATER SERVICE DISPATCHER-HUMAN RELATIONS MANAGER Work Phone: [facility] 06-04-2014 pneumococcal conjuga te vaccine, 13 valent Lion Lloyd WATER SERVICE DISPATCHER-HUMAN RELATIONS MANAGER Work Phone: [facility] Payers Date Payer Category Payer Self-pay [id number] 2017 Commercial Managed C are - POS [employer] [id number] 2017 Managed Care HMO (unspecified) [employer] AETNA [id number] 2017-Present [id number] [place] [id number] HMO [id number] 2008 Medicare [id number] 1959 Medicare [id number] 1959 Private Health Insurance [id number] 1945 Unknown [id number] 2.16.840.1.811850.3.57 9.2.647 1943 Unknown [id number] 2.16840.1.336594.3.57 9.2.356 1943 Unknown [id number] 2.16.840.1.124139.3.57 9.2.356 1943 Unknown [id number] 2.16.840.1.897791.3.57 9.2.593 1943 Unknown [id number] 2.16.840.1.642539.3.57 9.2.593 1943 Unknown [id number] 2.16.840.1.989974.3.57 9.2.593 1943 Unknown [id number] 2.16.840.1.027952.3.57 9.2.593 194 Unknown [id number] 2.16.840.1.096804.3.57 9.2.593 194 Unknown [id number] 2.16.840.1.717141.3.57 9.2.593 194 Unknown [id number] 2.16.840.1.077723.3.57 9.2.593 194 Unknown [id number] 2.16.840.1.057327.3.57 9.2.593 194 Unknown [id number] 2.16.840.1.364484.3.57 9.2.593 1943 Unknown [id number] 2.16.840.1.846289.3.57 9.2.593 1943 Unknown [id number] 2.16.840.1.502173.3.57 9.2.593 1943 Unknown [id number] 2.16.840.1.885934.3.57 9.2.593 1943 Unknown [id number] 2.16.840.1.774042.3.57 9.2.1259 1943 Unknown [id number] 2.16.840.1.648598.3.57 9.2.1259 1943 Unknown [id number] 2.16.840.1.811113.3.57 9.2.1259 1943 Unknown [id number] 2.16.840.1.476032.3.57 9.2.1259 1943 Unknown [id number] 2.16.840.1.939611.3.57 9.2.1286 1943 Unknown [id number] 2.16.840.1.691996.3.57 9.2.1286 Medicare [id number] Private Health Insurance Unknown [employer] Benefit [id number] Unknown [id number] 2.16.840.1.727372.3.57 9.2.531 Unknown [id number] 2.16.840.1.019354.3.57 9.2.531 Unknown [id number] 2.16.840.1.526154.3.57 9.2.531 Unknown [id number] 2.16.840.1.802806.3.57 9.2.531 Social History Date Type Detail Facility Unknown if ever smoked [facility] Other Start: 08-13-2020 End: 12-22-2022 Sex Assigned At [facility] [employer] Other Start: 06-22-2022 End: 03-28-2024 Tobacco smoking status [facility] Ex-smoker (finding) [facility] Start: 1945 Sex Assigned At Male F [facility] Start: 07-25-2022 End: 12-22-2022 Tobacco smoking status [facility] Never smoked tobacco [facility] Start: 12-22-2022 End: 04-26-2024 Alcohol intake Current drinker of alcohol (finding) [facility] Start: 08-13-2020 End: 12-22-2022 History of Social function [facility] Start: 12-22-2022 Alcohol Comment Caffeine 2-3 c ups per day [facility] Start: 1945 Sex Assigned At Not on file [facility] End: 07-03-1969 History of tobacco use Current smoker [facility] End: 07-03-1969 History of tobacco use Cigarette Smoker [facility] History of tobacco use Passive smoker [facility] Start: 07-25-2022 Tobacco use and exposure Smokeless tobacco non-user [facility] Start: 02-05-2015 Sex Male (finding) [facility] Medical Equipment Procedure Code Equipment Code Equipment Origin al Text Equipment Identifier Dates Intervertebral-b yosvany internal spinal fixation system ([id number] FDA Start: 04-29-2020 Spinal fixation plate, non-bioabsorbable ()[id number] FDA Start: 04-29-2020 Spinal fixation plate, non-bioabsorbable ()[id number] FDA Start: 05-01-2020 Spinal fixation plate, non-bioabsorbable ()[id number] FDA Start: 04-29-2020 by miscellaneous route. Goals Date Patient Goal Desired Activity /State Clinical Notes 05-01-2021 to 04-29-2024 Lexi Goldman APRN-SHINE - 04/26/2024 1:40 PM EDTPatient InstructionsTelephone Encounter - Lexi Quiroz RN - 04/22/2024 11:43 AM EDTTelephone Encounter - Lexi Quiroz RN - 04/22/2024 11:43 AM EDT Note Date & Type Note Facility 04-29-2024 Note [facility] Cardiology Clinic Note Chief Complaint: Patient here for 6 mo follow up HFpEF, CAD, valve disorder, and PAF. Had echo last week and labs in Mar 2024. He's now seeing wound care for RLE wound s/p fall. Also being treated for anemia. Denies chest pain, SOB, syncope, and bleeding on Xarelto. Gets lightheaded in the mornings when he wakes up. HPI: Florencio Bartholomew is a 78 y.o. male With a history of mild to moderate coronary artery disease, prior aortic valve replacement with a bioprosthetic valve here in routine follow-up States that he is more short of breath than he used to be several months ago. Denies chest pain. No orthopnea, no paroxysmal external dyspnea, no lower extremity edema. UPDATE 04/29/2024 He has lost 12 to 13 pounds since his last visit Cardiology ROS: Review of Systems Constitutional: Positive for malaise/fatigue. Skin: Positive for color change. Musculoskeletal: Positive for falls, muscle weakness and myalgias. Gastrointestinal: Positive for [...] Rfl: 0 furosemide (Lasix) 20 mg tablet, TAKE 1 TABLET BY MOUTH WITH BREAKFAST and WITH evening meal, Disp: 180 tablet, Rfl: 3 gabapentin (Neurontin) [...] tablet, Rfl: 3 Last Recorded Vitals BP 96/60 (BP Location: Left arm, Patient Position: Sitting) Pulse 86 Ht 1.753 m (5' 9 ) Wt 81.2 kg (179 lb) SpO2 99% BMI 26.43 kg/m??? Physical Examination: GENERAL: alert and oriented [...] PSYCH: appropriate mood, affect, and judgement. INVESTIGATIONS: Echocardiogram-[facility] Name: JASON BARTHOLOMEW Study Date: 09/28/2023 02:28 PM B/P: / HR: Date of : 1945 Location: [facility] Height: 69 in. Age: 78 year(s) Patient Room : Weight: 193 lb. Gender: Male Patient Status: OutPt BSA: 2.03 m2 (more content not included)... [facility] 04-26-2024 History of Presen t illness Narrative Images from the original note were not included. Wound Care Progress Note Patient: Jason Bartholomew Date of : 1945 Chief Complaint: Traumatic right lower leg wound, follow up Subjective/HPI: Jason is a 78 y.o. male who present to [facility] for evaluation of 1 ulcer(s) on the right lateral Lower leg. Patient established with wound clinic 04/19/2024. Current daily wound care includes: Solution moist to moist dressing changes twice daily. Patient has daughters performing dressing changes without difficulty. Patient presented to the ER 03/23/2024 for cellulitis of the right leg. Patient states proximally 1 week prior to his ER admission he fell on a drill battery. He developed a large what he thought was a scab. Patient is taking is a Xarelto for atrial fibrillation and history of bilateral DVT. X-ray and ESR was normal. Patient has been treated with antibiotic and soft and Augmentin. Patient's chart was reviewed for all available supporting documentation, laboratory results and radiographic examination. Measurable wound changes: Decreased wound measurement 1.0 cm decrease right lower leg calf circumference Patient accompanied by: Self, arrives in wheelchair, ambulates with the use of a cane Nutritional screen shows patient does not take in three servings of protein per day. Patient does deny fever, chills, sweats or other symptoms of infection. Prescribed antibiotics: Completed as prescribed Today's reported Blood sugar:95 Lab Results Component Value Date HGBA1C 7.2 (H) 08/31/2017 HGBA1C 6.8 (H) 08/11/2015 Tobacco:denied - never a smoker Contributing comorbid conditions: Atrial fibrillation treated with Xarelto Patient Active Problem List Diagnosis Chronic rhinitis Hematospermia Traumatic ulcer of right lower leg with fat layer exposed ([facility]) Aortic valve stenosis Anxiety Arthritis of right knee Cedeño's palsy Benign essential hypertension Bilateral leg edema BPH without urinary obstruction Carcinoma of prostate ([facility]) Carotid atherosclerosis Carpal tunnel syndrome, left upper limb Cellulitis of right lower leg Cervical myelopathy ([facility]) CHF (congestive heart failure), NYHA class III, acute on chronic, diastolic ([facility]) Chronic heart failure with preserved ejection fraction (HFpEF) ([facility]) Complete heart block ([facility]) Degenerative cervical spinal stenosis Degenerative lumbar spinal stenosis Diabetic polyneuropathy ([facility]) DVT of lower extremity, bilateral ([facility]) Dyslipidemia Dysphagia Gastroesophageal reflux disease History of colon polyps Incomplete 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 ([facility]) Laceration without foreign body, left lower leg, initial encounter Leukocytosis Paroxysmal atrial fibrillation ([facility]) Peripheral vascular disease, unspecified ([facility]) Type 2 diabetes mellitus with hyperglycemia, without long-term current use of insulin ([facility]) Stage 3 chronic kidney disease ([facility]) CKD stage 3b, GFR 30-44 ml/min ([facility]) Past Medical History: Diagnosis Date Blood in semen Cancer ([facility]) SKIN, PROSTATE Diabetes mellitus ([facility]) GERD (gastroesophageal reflux disease) Hyperlipidemia Hypertension Hypertensive heart disease Past Surgical History: Procedure Laterality Date APPENDECTOMY CAROTID ARTERY ANGIOPLASTY Left 07/03/2010 CERVICAL SPINE SURGERY c clamp in neck RELEASE TRIGGER FINGER Left 09/08/2021 Performed by Quan Chong DO at [facility]PAIR Bilateral Current Outpatient Medications Medication Sig Dispense Refill aspirin 81 mg Take 1 tablet (81 mg total) by mouth in the morning. atorvastatin (LIPITOR) 40 mg tablet Take 1 tablet (40 mg total) by mouth in the morning. azelastine-fluticasone (DYMISTA) 137-50 mcg/spray spray,non-aerosol USE 2 SPRAYS IN EACH NOSTRIL TWICE DAILY 69 g 0 blood sugar diagnostic strip by miscellaneous route. carvediloL (COREG) 12.5 mg tablet Take 1 tablet (12.5 mg total) by mouth in the morning and 1 tablet (12.5 mg total) before bedtime. gabapentin (NEURONTIN) 600 mg tablet Take 1 tablet (600 mg total) by mouth 3 (three) times a day. glimepiride (AMARYL) 2 mg tablet Take 1 tablet (2 mg total) by mouth every morning before breakfast. montelukast (SINGULAIR) 10 mg tablet Take 1 tablet (10 mg total) by mouth in the morning. 90 tablet 2 omeprazole (PriLOSEC) 20 mg capsule Take 1 capsule (20 mg total) by mouth in the morning and 1 capsule (20 mg total) before bedtime. rivaroxaban (XARELTO) 15 mg tablet Xarelto 15 mg tablet rOPINIRole (REQUIP) 0.25 mg tablet Take 1 tablet (0.25 mg total) by mouth nightly. TAKE 2 HRS BEFORE BED sodium hypochlorite (DAKIN'S SOLUTION) 0.25 % external solution Apply onto gauze and apply to leg ulcer two times daily. 473 mL 1 tamsulosin (FLOMAX) 0.4 mg capsule Take 1 capsule (0.4 mg total) by mouth in the morning. torsemide (DEMADEX) 5 mg tablet Take 1 tablet (5 mg total) by mouth daily. No current facility-administered medications for this visit. Allergies Allergen Reactions Sulfa (Sulfonamide Antibiotics) The following portions of the patient's history were reviewed and updated as appropriate: allergies, current medications, past family history, past medical history, past social history, past surgical history, problem list, and medication reconciliation was completed including current medication and post discharge medication. PAIN: Pain Description: Burning, Sharp, Intermittent Pain Scale 0/10: 8 Relieved by: Rest Review of Systems Constitutional: Negative for activity change, appetite change, chills, diaphoresis, fatigue, fever and unexpected weight change. HENT: Negative for sneezing and sore throat. Respiratory: Negative for cough and shortness of breath. Cardiovascular: Positive for leg swelling. Gastrointestinal: Negative for abdominal pain, constipation, diarrhea, nausea and vomiting. Genitourinary: Negative for difficulty urinating and flank pain. Musculoskeletal: Positive for arthralgias and gait problem. Skin: Positive for wound. Negative for color change and rash. Neurological: Negative for dizziness and syncope. Psychiatric/Behavioral: Negative for behavioral problems, confusion and decreased concentration. The patient is nervous/anxious. Objective: Vitals: 04/26/24 1348 BP: 107/65 Pulse: 74 Resp: 16 Temp: 36.5 C (97.7 F) Physical Exam Vitals reviewed. Constitutional: General: He is not in acute distress. Appearance: He is not ill-appearing or diaphoretic. Cardiovascular: Rate and Rhythm: Normal rate. Pulses: Dorsalis pedis pulses are 2+ on the right side. Posterior tibial pulses are 2+ on the right side. Comments: Right pedal pulses strongly palpable Right leg with 1 to 2+ soft pitting edema Right leg warm, diminished hair growth Pulmonary: Effort: Pulmonary effort is normal. No respiratory distress. Breath sounds: No wheezing. Musculoskeletal: General: Swelling and tenderness present. Right lower leg: No edema. Left lower leg: No edema. Skin: General: Skin is warm and dry. Capillary Refill: Capillary refill takes less than 2 seconds. Findings: Bruising and wound present. No erythema or rash. Neurological: Mental Status: He is alert and oriented to person, place, and time. Psychiatric: Mood and Affect: Mood normal. Behavior: Behavior normal. Wound Assessment: Wound 04/19/24 1 Traumatic Leg Right;Anterior (Active) Wound Image Pre debridement Post debridement 04/26/24 135 Site Assessment Red;Yellow;Moist;Hatfield;Brown 04/26/241349 Daya-wound Assessment Wing[place];Blanchable erythema 04/26/241349 Wound Length (cm) 3.9 cm 04/26/241405 Wound Width (cm) 3.7 cm 04/26/241405 Wound Surface Area (cm^2) 14.43 cm^2 04/26/246 Wound Depth (cm) 0.7 cm 04/26/241405 Wound Volume (cm^3) 10.101 cm^3 04/26/241405 Change in Wound Size % 8.38 04/26/241405 Drainage Description Serosanguineous;Hatfield 04/26/241349 Drainage Amount Moderate 04/26/241349 Treatments Cleansed with;Soak with;Vashe/Hypochlorous Acid 04/26/241349 Debridement Performed? Y 04/26/241405 Type of Debridement Sharp to Muscle 04/26/241405 Debridement Area (cm^2) 14.43 cm^2 04/26/246 Dressing Type Foam;Gauze Rolled/Kerlix 04/19/24 1053 Dressing Changed New 04/19/24 1053 Dressing Status Clean;Dry;Intact 04/19/24 1053 Wound Bed Granulation (%) < 25% 04/26/241349 Wound Bed Slough (%) 50% to 75% 04/26/241349 Wound Bed Eschar (%) 25% to 50% 04/26/241349 Tunneling 1 (cm) 2.1 cm 04/26/241349 Tunneling 1 Clock Position of Wound 3 o'clock 04/26/241349 Undermining 1 (cm) 2 cm 04/26/241349 Start: Undermining 1 Clock Position 11 o'clock 04/26/241349 End: Undermining 1 Clock Position 5 o'clock 04/26/241349 Discussion: Debridement includes the removal of foreign material and/or devitalized tissue until healthy tissue is exposed. Risks, benefits and alternatives were discussed with the patient. We discussed possible complications, including infection and bleeding. Written consent was obtained prior to the procedure. Timeout procedure completed. Goals of debridement include: removal of devitalized tissue, decrease risk of infection, promote wound healing and prevent further complications. Procedure: Debridement/Procedure Level: Removal of devitalized tissue, nonviable tissue, and/or infection: Sub-q/Tissue/Muscle Removal of gelatinous blood clots Instrument Used: Adson, Curette, and Scissors Anesthesia EMLA Bleeding: Large Bleeding Control: Pressure Added Pain Control: None Specimen Taken: None Total Surface Area of Debridement: 14.43 cm2 Dressing: The wound was cleansed with wound wash and a moist 0.125%Dakins gauze covered with foam dressing was placed in wound clinic. Patient Status: Well tolerated by patient. Assessment/Plan/Education: 1. Traumatic ulcer of right lower leg with fat layer exposed (CMS-HCC) (Primary) 2. Hematoma of right lower leg Wash mild soap and water 0.125% Dakin's moist to moist dressing changes twice daily Cover with foam or other dressing of comfort Discussed with patient negative pressure wound therapy, he is agreeable. The wound needs 1 more week of cleansing and then possibly switch to negative pressure. Patient instructed in Other: Traumatic wounds care to right and leg. Patient verbalize understanding of treatment regimen and the importance of adherence. Patient verbalized understanding. We will continue to follow closely to avoid any complications or infection. Our short term goal is wound compliance. Our shelter goal is wound closure. The patient was taught to watch for S/S of infection (redness, pus, pain, increased swelling, chills or fever) and to call the PCP or wound care clinic if such occurs. The patient was educated on offloading the area by avoiding direct pressure to the wound bed. Education as well as the pathophysiology of the disease process was provided on infection, edema, necrotic tissue and its relationship to nonhealing wounds. Education was also provided on treatment plan. Patient verbalized understanding. Follow up wound clinic in 1 week. Instructed to contact wound clinic/PCP or ER should symptoms worsen. Total time spent was 24 minutes: Preparing to see the patient (e.g., review of tests) Obtaining and/or reviewing separately obtained history Performing a medically appropriate examination and/or evaluation Counseling and educating the patient/family/caregiver Ordering medications, tests, or procedures Documenting clinical information in the electronic or other health record - FARHAN GARCÍA 04/26/24 2:21 PM Lexi Goldman APRN, SHINE, CWS, CHER[facility]:[phone] FARHAN García 04/26/24 3762 documented in this encounter [facility] 04-26-2024 Instructions Apple Lam RN - 04/26/2024 1:40 PM EDT Wound Management Treatment Plan Wound Location(s): Right anterior leg HOW TO CARE FOR YOUR WOUND The following should be performed Twice daily and as needed. STEP 1: Cleanse wound with soap and water then pat dry STEP 2: Pack wound bed lightly with moistened gauze in 0.125% Dakins Also pack the undermining, tunneling areas of wound bed. (Undermining, tunneling was noted from the 11 o'clock to the 5 o'clock area. With the head as the 12 o'clock position) STEP 4: Apply triad around outside of wound then place foam over wound STEP 5: Wrap with roll gauze and tape (no tape on skin),. STEP 6: Secure dressings with Tubi/Medigrip ACTIVITY: Avoid direct pressure to wound(s) at all times NUTRITION: High protein diet SKIN CARE: Moisturize all dry and intact skin SWELLING CONTROL: Elevate legs whenever sitting to level of heart/hips or higher. ITEMS TO FOLLOW UP ON: Length Width Depth Wound 04/19/24 1 Traumatic Leg Right;Anterior-Wound Length (cm): 3.9 cm Wound 04/19/24 1 Traumatic Leg Right;Anterior-Wound Width (cm): 3.7 cm Wound 04/19/24 1 Traumatic Leg Right;Anterior-Wound Depth (cm): 0.7 cm Wound drainage Type Description moderate Sanguinous bloody documented in this encounter [facility] 04-22-2024 Miscellaneous Notes [employer] returned call to patient after message left on nurse line requesting whether he needed more antibiotics. [employer] reviewed provider's note from 04/19/24, which stated to take current antibiotics until gone and no plan for additional antibiotics at this time. [employer] informed patient of above. Patient verbalized understanding. documented in this encounter [facility] 04-22-2024 Telephone encounter Note [employer] returned call to patient after message left on nurse line requesting whether he needed more antibiotics. [employer] reviewed provider's note from 04/19/24, which stated to take current antibiotics until gone and no plan for additional antibiotics at this time. [employer] informed patient of above. Patient verbalized understanding. [facility] 04-19-2024 History of Presen t illness Narrative Images from the original note were not included. Wound Care Progress Note Patient: Jason Bartholomew Date of : 1945 Chief Complaint: nonhealing leg wound, new patient Subjective/HPI: Jason is a 78 y.o. male who present to [facility] for evaluation of 1 ulcer(s) on the right lower leg. Presented to ER on 03/23 for cellulitis right leg. Patient states wound occured week prior when he bumped his leg during a fall and later developed large scab. After several days developed redness and swelling to lower leg. Skin painful, red, and warm to touch. X-ray at that time was normal per PCP. He was treated with ancef and augmentin. Follow up PCP 04/10 for wound worsening and prescribed augmentin and referral to wound care. Patient was first assessed in wound clinic on 04/19/24. Current daily wound care includes open to air. Pain is worse with walking and standing. Patient accompanied by:patient Nutritional screen shows patient is not taking increased amounts of protein in the diet. Patient does deny fever, chills, sweats or other symptoms of infection. Area remains slightly swollen. He is taking augmentin as prescribed Reported blood sugar 96 today Tobacco use: reports that he has never smoked. He has never used smokeless tobacco. Contributing comorbid conditions:type II diabetes, CHF, PVD, CKD stage III Glucose Date Value Ref Range Status 04/18/2019 135 (H) 65 - 99 mg/dL Final Hemoglobin A1C Date Value Ref Range Status 08/31/2017 7.2 (H) 4.4 - 6.4 % Final 08/11/2015 6.8 (H) 4.3 - 5.6 % Final Comment: [place] [employer] guidelines indicate that patients with HgbA1c in the range 5.7-6.4% are at increased risk for development of diabetes, and intervention by lifestyle modification may be beneficial. HgbA1c greater or equal to 6.5% is considered diagnostic of diabetes. Wound related history: Vascular studies: Last cx: No results found for: WOUNDCX , SUPERFICIAL , TISSUECULTU Osteomyelitis check: none Prior Authorization ordered: none Travel Screening Question Response Have you been in contact with someone who was sick? No / Unsure Do you have any of the following new or worsening symptoms? None of these Have you traveled internationally or domestically in the last month? No Travel History Travel since 03/20/24 No documented travel since 03/20/24 Patient Active Problem List Diagnosis Chronic rhinitis Hematospermia Traumatic ulcer of right lower leg with fat layer exposed ([facility]) Aortic valve stenosis Anxiety Arthritis of right knee Cedeño's palsy Benign essential hypertension Bilateral leg edema BPH without urinary obstruction Carcinoma of prostate ([facility]) Carotid atherosclerosis Carpal tunnel syndrome, left upper limb Cellulitis of right lower leg Cervical myelopathy ([facility]) CHF (congestive heart failure), NYHA class III, acute on chronic, diastolic ([facility]) Chronic heart failure with preserved ejection fraction (HFpEF) ([facility]) Complete heart block ([facility]) Degenerative cervical spinal stenosis Degenerative lumbar spinal stenosis Diabetic polyneuropathy ([facility]) DVT of lower extremity, bilateral ([facility]) Dyslipidemia Dysphagia Gastroesophageal reflux disease History of colon polyps Incomplete 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 ([facility]) Laceration without foreign body, left lower leg, initial encounter Leukocytosis Paroxysmal atrial fibrillation ([facility]) Peripheral vascular disease, unspecified ([facility]) Type 2 diabetes mellitus with hyperglycemia, without long-term current use of insulin ([facility]) Stage 3 chronic kidney disease ([facility]) CKD stage 3b, GFR 30-44 ml/min ([facility]) Past Medical History: Diagnosis Date Blood in semen Cancer ([facility]) SKIN, PROSTATE Diabetes mellitus ([facility]) GERD (gastroesophageal reflux disease) Hyperlipidemia Hypertension Hypertensive heart disease Past Surgical History: Procedure Laterality Date APPENDECTOMY CAROTID ARTERY ANGIOPLASTY Left 07/03/2010 CERVICAL SPINE SURGERY c clamp in neck RELEASE TRIGGER FINGER Left 09/08/2021 Performed by Quan Chong DO at [facility] ROTATOR CUFF REPAIR Bilateral Current Outpatient Medications Medication Sig Dispense Refill aspirin 81 mg Take 1 tablet (81 mg total) by mouth in the morning. atorvastatin (LIPITOR) 40 mg tablet Take 1 tablet (40 mg total) by mouth in the morning. azelastine-fluticasone (DYMISTA) 137-50 mcg/spray spray,non-aerosol USE 2 SPRAYS IN EACH NOSTRIL TWICE DAILY 69 g 0 blood sugar diagnostic strip by miscellaneous route. carvediloL (COREG) 12.5 mg tablet Take 1 tablet (12.5 mg total) by mouth in the morning and 1 tablet (12.5 mg total) before bedtime. gabapentin (NEURONTIN) 600 mg tablet Take 1 tablet (600 mg total) by mouth 3 (three) times a day. glimepiride (AMARYL) 2 mg tablet Take 1 tablet (2 mg total) by mouth every morning before breakfast. montelukast (SINGULAIR) 10 mg tablet Take 1 tablet (10 mg total) by mouth in the morning. 90 tablet 2 omeprazole (PriLOSEC) 20 mg capsule Take 1 capsule (20 mg total) by mouth in the morning and 1 capsule (20 mg total) before bedtime. rivaroxaban (XARELTO) 15 mg tablet Xarelto 15 mg tablet rOPINIRole (REQUIP) 0.25 mg tablet Take 1 tablet (0.25 mg total) by mouth nightly. TAKE 2 HRS BEFORE BED tamsulosin (FLOMAX) 0.4 mg capsule Take 1 capsule (0.4 mg total) by mouth in the morning. sodium hypochlorite (DAKIN'S SOLUTION) 0.25 % external solution Apply onto gauze and apply to leg ulcer two times daily. 473 mL 1 torsemide (DEMADEX) 5 mg tablet Take 1 tablet (5 mg total) by mouth daily. (Patient not taking: Reported on 04/19/2024) No current facility-administered medications for this visit. Allergies Allergen Reactions Sulfa (Sulfonamide Antibiotics) Social History Tobacco Use Smoking status: Never Smokeless tobacco: Never Substance Use Topics Alcohol use: Yes The following portions of the patient's history were reviewed and updated as appropriate: allergies, current medications, past family history, past medical history, past social history, past surgical history, problem list, and medication reconciliation was completed including current medication and post discharge medication. PAIN: Pain Scale 0/10: 3 Review of Systems Constitutional: Negative for activity change, appetite change, chills, diaphoresis, fatigue, fever and unexpected weight change. HENT: Negative for sneezing and sore throat. Gastrointestinal: Negative for abdominal pain, constipation, diarrhea, nausea and vomiting. Genitourinary: Negative for difficulty urinating and flank pain. Musculoskeletal: Positive for arthralgias and gait problem. Skin: Positive for wound. Negative for color change and rash. Neurological: Negative for dizziness and syncope. Psychiatric/Behavioral: Negative for behavioral problems, confusion and decreased concentration. Objective: Vitals: 04/19/24 1034 BP: 160/78 Pulse: 90 Resp: 16 Temp: 36.4 C (97.5 F) Physical Exam Vitals reviewed. Constitutional: General: He is not in acute distress. Appearance: He is not ill-appearing or diaphoretic. HENT: Mouth/Throat: Mouth: Mucous membranes are moist. Cardiovascular: Rate and Rhythm: Normal rate. Pulses: Dorsalis pedis pulses are 2+ on the right side. Posterior tibial pulses are 2+ on the right side. Pulmonary: Effort: Pulmonary effort is normal. No respiratory distress. Abdominal: General: There is no distension. Palpations: Abdomen is soft. Tenderness: There is no abdominal tenderness. There is no guarding. Musculoskeletal: General: Swelling and tenderness present. Right lower leg: No edema. Left lower leg: No edema. Skin: General: Skin is warm and dry. Capillary Refill: Capillary refill takes less than 2 seconds. Findings: Wound present. No erythema or rash. Neurological: Mental Status: He is alert and oriented to person, place, and time. Psychiatric: Mood and Affect: Mood normal. Behavior: Behavior normal. Wound Assessment: Wound 04/19/24 1 Traumatic Leg Right;Anterior (Active) Wound Image 04/19/24 1053 Site Assessment Eschar Stable 04/19/24 1040 Daya-wound Assessment Swelling;Red 04/19/24 1040 Wound Length (cm) 4.5 cm 04/19/24 1040 Wound Width (cm) 3.5 cm 04/19/24 1040 Wound Surface Area (cm^2) 15.75 cm^2 04/19/24 1040 Wound Depth (cm) 1 cm 04/19/24 1053 Drainage Description Sanguineous 04/19/24 105 Drainage Amount Moderate 04/19/24 1053 Treatments Dakins solution 04/19/24 1053 Debridement Performed? Y 04/19/24 1053 Type of Debridement Sharp to Subcutaneous 04/19/24 1053 Dressing Type Foam;Gauze Rolled/Kerlix 04/19/24 1053 Dressing Changed New 04/19/24 1053 Dressing Status Clean;Dry;Intact 04/19/24 1053 Wound Bed Eschar (%) 100% 04/19/24 1040 Measurable Improvement: initial wound encounter Discussion:Risks, benefits and alternatives were discussed with the patient. We discussed possible complications, including infection and bleeding. Written consent was obtained prior to the procedure. Timeout procedure completed. Procedure: Debridement/Procedure Level: Removal of devitalized tissue Sub-q/Tissue Instrument Used: Curette and Scissors Anesthesia Emla Bleeding: Small Bleeding Control: None Added Pain Control: None Specimen Taken: None Total Surface Area of Debridement: 15.75cm2 Dressing: The wound was cleansed with wound wash and a dakins dressing was placed in wound clinic. Patient Status: Well tolerated by patient. Assessment/Plan/Education: 1. 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 Hematoma of right lower leg Patient educated on course of hematoma and verbalizes understanding Implement Dakins at this time, possible transition to Vashe in the next few appointments when wound is tack cleaner Patient educated on how to change dressings. He states he and his daughter will be able to change dressings declines home care. Monitor for uncontrolled bleeding. Patient is on xarelto Continue augmentin until complete Avoid prolonged leg dependency. Wash legs and feet every day, apply moisturizing lotion at night, avoid lotion between the toes. Raise feet above the level of the heart 10-15 min several times daily. Wear compression stockings as prescribed-double layer tubigrip applied Patient instructed in Other: traumatic wound care to right and leg. Patient verbalizes understanding of strategies to prevent infection, treatment regimen and the importance of adherence, and when to contact the physician, HH, and/or EMS. The patient was taught to watch for S/S of infection (redness, pus, pain, increased swelling, chills or fever) and to call the PCP or wound care clinic if such occurs. The patient was educated on offloading the area by avoiding direct pressure to the wound bed. Education as well as the pathophysiology of the disease process was provided on infection, edema and its relationship to nonhealing wounds. Education was also provided on treatment plan. Patient verbalized understanding. We will continue to follow closely to avoid any complications or infection. Our short term goal is wound compliance. Our terminal gauger goal is wound closure. Follow up wound clinic in 1 week. Instructed to contact wound clinic/PCP or ER should symptoms worsen. Total time spent was 32 minutes: Preparing to see the patient (e.g., review of tests) Obtaining and/or reviewing separately obtained history Performing a medically appropriate examination and/or evaluation Counseling and educating the patient/family/caregiver Ordering medications, tests, or procedures Documenting clinical information in the electronic or other health record Yandy REAL, DIAZ [facility] Office: [phone] Email: [email or web address] Thank you very much for allowing us to participate in your patients care. Your referrals are greatly appreciated, please do not hesitate to contact our service with any questions or concerns regarding the care management. FARHAN Scott 04/19/24 1320 documented in this encounter [facility] [employer] [facility] 04-19-2024 Instructions Amita Stevens RN - 04/19/2024 10:20 AM EDT Wound Management Treatment Plan Wound Location(s): Right anterior leg HOW TO CARE FOR YOUR WOUND The following should be performed Twice daily and as needed. STEP 1: Cleanse wound with soap and water then pat dry STEP 2: Pack with lightly with moistened gauze in 0.125% Dakins STEP 4: Apply triad around outside of wound then place foam over wound STEP 5: Wrap with roll gauze and tape (no tape on skin),. STEP 6: Secure dressings with Tubi/Medigrip ACTIVITY: Avoid direct pressure to wound(s) at all times NUTRITION: High protein diet SKIN CARE: Moisturize all dry and intact skin SWELLING CONTROL: Elevate legs whenever sitting to level of heart/hips or higher. 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 Associated Problem(s): Cellulitis of right lower leg Redness improved with antibiotics but worsened over past few days. Increased pain and swelling and repeat augmentin. Refer to wound care. Images from the original note were not included. Subjective Patient ID: Jason Bartholomew is a 78 y.o. male who presents for Leg Swelling (Open sore). C/o increased redness and swelling on right lower leg. Bumped leg in March and developed large hematoma and wound. Developed cellulitis and to ER 03/23 and treated with augmentin. Redness and swelling improved with antibiotics. Scab came off but wound continues to bleed and drain. Over past few days developed redness around room and swelling. Pain increased and difficulty walking. Concerned of infection and made appointment. Review of Systems Constitutional: Negative for fatigue. Respiratory: Negative for cough, shortness of breath and wheezing. Cardiovascular: Negative for chest pain and palpitations. Gastrointestinal: Negative for abdominal pain, diarrhea, nausea and vomiting. Genitourinary: Negative for dysuria. Objective Physical Exam Constitutional: General: He is not in acute distress. Appearance: Normal appearance. HENT: Head: Normocephalic. Right Ear: Tympanic membrane and ear canal normal. Left Ear: Tympanic membrane and ear canal normal. Eyes: Extraocular Movements: Extraocular movements intact. Pupils: Pupils are equal, round, and reactive to light. Cardiovascular: Rate and Rhythm: Normal rate and regular rhythm. Heart sounds: No murmur heard. No friction rub. No gallop. Pulmonary: Breath sounds: Normal breath sounds. No wheezing, rhonchi or rales. Abdominal: General: Bowel sounds are normal. There is no distension. Palpations: Abdomen is soft. Tenderness: There is no abdominal tenderness. There is no guarding or rebound. Musculoskeletal: Left lower leg: No edema. Neurological: Mental Status: He is alert. Assessment/Plan Problem List Items Addressed This Visit Cellulitis of right lower leg - Primary Redness improved with antibiotics but worsened over past few days. Increased pain and swelling and repeat augmentin. Refer to wound care. Relevant Medications amoxicillin-clavulanate (Augmentin) 875-125 MG tablet Other Relevant Orders Ambulatory referral to Wound Clinic Wound of right leg, subsequent encounter Wound not healing well and refer to wound care. Relevant Orders Ambulatory referral to Wound Clinic documented in this encounter [facility] 10-18-2023 Note [facility] Cardiology Clinic Note Chief Complaint: Patient here for follow up echo performed at [facility] a few weeks ago. Had routine labs [...] PSYCH: appropriate mood, affect, and judgement. INVESTIGATIONS: Echocardiogram-[facility] Name: JASON BARTHOLOMEW Study Date: 09/28/2023 02:28 PM B/P: / HR: Date of : 1945 Location: [facility] Height: 69 in. Age: 78 year(s) Patient Room : Weight: 193 lb. Gender: Male Patient Status: OutPt BSA: 2.03 m2 Indica (more content not included)... [facility] 07-28-2023 Evaluation note Encounter Date Diagnosis Assessment [...] by cat, initial encounter (ICD-10 - W55.01XA) [facility] Other 11-02-2023 NotePatient here today c/o hypotension and lightheadedness. BP before he came today was 78/51. Says he's taking carvedilol 6.25mg bid. Denies chest pain, SOB, and bleeding on warfarin. Review of Systems Gastrointestinal: Positive for heartburn. Neurological: Positive for light-headedness. All other systems reviewed and are negative.[facility] 05-04-2023 NoteCardiology Clinic Note Subjective Jason Bartholomew [...] EP study LA baseline (more content not included)...[facility] 07-21-2022 Evaluation note* Encounter Date Diagnosis Assessment Notes Treatment Notes Treatment Clinical Notes Jul, Status post carpal tunnel release (ICD-10 - Z98.890) Mr Bartholomew is doing well. 3 sutures removed. Edcuation completed to continue strenghting hands with exercises given. Patient can be return on as needed basis [facility] Other 12-01-2022 Evaluation note* Encounter Date Diagnosis [...] and to be off anticoagualtion thaerapy. Jun, care home current use of anticoagulant therapy (ICD-10 - Z79.01) Jun, Primary hypertension (ICD-10 - I10) [facility] Other 09-16-2022 Evaluation note* Encounter Date Diagnosis [...] patient agrees. 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 (CMS-HCC)- Primary Hematoma of right lower leg [facility] Diagnosis Traumatic ulcer of right lower leg with fat layer exposed (CMS-HCC)- Primary Hematoma of right lower leg documented in this encounter [facility] SystemHistory general Narrative - Reported* Type Description Date Medical History HTN Medical History DM II Medical History GERD Medical History hyperlipidemia Medical History asthma Surgical History BILATERAL ROTATOR CUFF Surgical History APPENDECTOMY Surgical History neck surgery on vessles Surgical History carpal tunnel release right Surgical History cardiac pacemeker Surgical History broken neck Hospitalization History see above [facility] Other History general Narrative - Reported* Type Description Date Medical History HTN Medical History DM II Medical History GERD Medical History hyperlipidemia Medical History asthma Surgical History BILATERAL ROTATOR CUFF Surgical History APPENDECTOMY Surgical History neck surgery on vessles Surgical History carpal tunnel release right Surgical History cardiac pacemeker Surgical History broken neck Surgical History carpel tunnel L Hospitalization History see above [facility] Other History general Narrative - Reported* Type Description Date Medical History HTN (hypertension) Medical History Diabetes Medical History Hyperlipidemia Medical History Asthma Surgical History BILATERAL ROTATOR CUFF Surgical History APPENDECTOMY Surgical History neck surgery on vessles Surgical History carpal tunnel release right Surgical History cardiac pacemeker Surgical History broken neck Surgical History carpel tunnel L Hospitalization History see above [facility] Other Hospital Discharge instructions Additional Instructions DISCHARGE [...] appointment to see your physician in two weeks.[facility] Work Phone: InstructionsNot on filedocumented in this encounter Critical access hospital for referral (narrative)* Consultation (Routine) - Pending Review Specialty Diagnoses / Procedures Referred By Lloyd harper Referred To Contact Wound Care Diagnoses Cellulitis of right lower leg Wound of right leg, subsequent encounter Procedures ND OFFICE/OUTPATIENT [facility] 60 MINUTES Idris Jose MD [address] [place] [address] Sekou Sanches MD [address], [place] [address] Referral ID Status Reason Start Date Expiration Date Visits Requested Visits Authorized [id number] Pending Review Specialty Services Required 04/10/2024 10/07/2024 1 1 [facility] Summary Purpose Family History No Family History Records Found Relationship Condition Age at Onset Recorded Date/T sarina brother Heart disease Unknown Cerebrovascular accident (CVA) Unknown Not Specified Heart disease Unknown father Cerebrovascular accident (CVA) Unknown Advance Directives No Advanced Directives Records Found Advance Directive Response Recorded Date/ Time Advance Directives No October 01 11:34am Documents on File Type Date Recorded Patient Executive Pilot Expl anation Power of Insulation Cupola Charger 02/19/2024 11:25 AM cande r of workers compensation defense attorney Documents on File Type Date Recorded Patient Executive Pilot Expl anation Power of Insulation Cupola Charger 02/19/2024 11:25 AM cande r of workers compensation defense attorney Hospital Course Note MR#: [id number] I [facility] Pt. 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 DATE CREATED AUTHOR AUTHOR'S ORGANIZ ATION 08/06/2022 [facility] DATE CREATED AUTHOR AUTHOR'S ORGANIZ ATION 12/13/2022 [facility] pital DATE CREATED AUTHOR AUTHOR'S ORGANIZ ATION 04/12/2024 [facility] EPIC DATE CREATED AUTHOR AUTHOR'S ORGANIZ ATION 04/28/2024 [facility] DATE CREATED AUTHOR AUTHOR'S ORGANIZ ATION 04/30/2024 [facility] REASON FOR VISIT (unrecogniz ed section and content) Reason Comments Leg Swelling Open sore Reason Comments Wound Check Specialty Diagnoses / Procedures Referred By Lloyd harper Referred To Contact Wound Care Diagnoses Wound of right leg, subsequent encounter Idris Jose MD [address] [place] [address] Phone: tel: fax: [facility] [address] [place] [address] Phone: tel: fax: Referral ID Status Reason Start Date Expiration Date Visits Requested Visits Authorized [id number] Pending Review Specialty Services Required 04/17/2025 1 1 Reason Onset Date Comments Care Navigation 04/22/2024 Reason Comments Wound Check Specialty Diagnoses / Procedures Referred By Lloyd harper Referred To Contact Wound Care Diagnoses Wound of right leg, subsequent encounter Idris Jose MD [address] [place] [address] Phone: tel: fax: [facility] [address] [place] [address] Phone: tel: fax: Referral ID Status Reason Start Date Expiration Date Visits Requested Visits Authorized [id number] Pending Review Specialty Services Required 4 04/17/2025 1 1 Care Teams (unrecognized sec tion and content) Team Status: Inactive Member Role Status Dates Idris Jose MD Primary Care Provider Active Darien Escamilla MD Attending Provider Active Team Status: Active Member Role Status Dates Idris Jose MD Primary Care Provider Active 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 Relationship Specialty Start Date End Date Idris Jose MD PCP - General Cardiology 11/22/22 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 Relationship Specialty Start Date End Date Idris Jose MD [address] [place] [id number] PCP - General Family Medicine 08/21/23 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 Relationship Specialty Start Date End Date Idris Jose MD [address] [place] [address] PCP - General Family Medicine 08/21/23 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 Relationship Specialty Start Date End Date Idris Jose MD PCP - General 11/02/16 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 Relationship Specialty Start Date End Date Idris Jose MD PCP - General 11/02/16 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 Relationship Specialty Start Date End Date Idris Jose MD PCP - General 11/02/16 Goals (unrecognized section and content) Goals may [...] BE BASED ON THE PRIMARY CLINICAL RECORDS. [facility] [employer] [employer] [facility]. provides no warranty or guarantee of the accuracy or completeness of information in this document.
[2024-05-01 13:02] LABS: Estimated Average Glucose 123 mg/dL; Glycohemoglobin A1C 5.9 % (4.5-6.2)
[2024-05-01 13:07] LABS: Basophils Percent Auto 0.5 % (0.2-2.0); Eosinophils Absolute Auto 0.1 10^3/uL (0.0-0.7); Eosinophils Percent Auto 1.7 % (0.9-7.0); Hematocrit 32.5 % (42.0-54.0); Hemoglobin 10.5 g/dL (14.0-18.0); Immature Granulocytes Abs Auto 0.01 10^3/uL (0.00-0.03); Immature Granulocytes Pct Auto 0.2 % (0.0-0.5); Lymphocytes Absolute Auto 1.2 10^3/uL (1.2-3.8); Lymphocytes Percent Auto 18.3 % (20.5-60.0); Mean Corpuscular HGB Conc 32.3 g/dL (29.9-35.2); Mean Corpuscular Hemoglobin 28.6 pg (25.9-34.0); Mean Corpuscular Volume 88.6 fL (80.0-94.0); Mean Platelet Volume 10.4 fL (9.5-13.5); Monocytes Absolute Auto 0.6 10^3/uL (0.3-0.8); Monocytes Percent Auto 9.6 % (1.7-12.0); Neutrophils Absolute Auto 4.6 10^3/uL (1.4-6.5); Neutrophils Percent Auto 69.7 % (43.0-75.0); Platelet Count 232 10^3/uL (150-450); Red Blood Count 3.67 10^6/uL (4.70-6.10); Red Cell Distribution Width 19.1 % (11.0-15.0); White Blood Count 6.6 10^3/uL (4.0-11.0)
[2024-05-01 13:24] LABS: Anion Gap 14.9; BUN Creatinine Ratio 13.5; Calcium 9.3 mg/dL (8.5-10.1); Carbon Dioxide 29.1 mmol/L (21.0-32.0); Chloride 102 mmol/L (98-107); Estimated GFR (African America 43 (>=60 mL/min/1.73m^2); Estimated GFR (Non-African Ame 35 (>=60 mL/min/1.73m^2); Glucose 198 mg/dL (74-106); Sodium 142 mmol/L (136-145)
[2024-05-01 13:47] LABS: Alanine Aminotransferase 20 U/L (16-63); Albumin Level 3.4 g/dL (3.4-5.0); Alkaline Phosphatase 110 U/L (46-116); Aspartate Amino Transferase 18 U/L (15-37); Bilirubin Direct 0.1 mg/dL (0.0-0.2); Bilirubin Total 0.5 mg/dL (0.2-1.0); Chol HDL Ratio 2.9; Cholesterol 140 mg/dL (<=200); Globulin 3.5 g/dL; HDL Cholesterol 49 mg/dL (40-60); LDL Cholesterol Calculated 68.8 mg/dL; Total Protein 6.9 g/dL (6.4-8.2); Triglycerides 111 mg/dL (<=150); VLDL CHOLESTEROL 22.2 mg/dL
[2024-05-01 14:03] LABS: Prostate Specific Antigen Scrn 0.29 ng/mL (<=4.00)
== END 2024-05-01 12:11 | disposition home or self-care (01) ==
LOC: LAB 12:10
PROVIDERS: PCP Family Medicine; Visit Provider Family Medicine
DX: Z79.899 Other long term (current) drug therapy (principal); E11.65 Type 2 diabetes mellitus with hyperglycemia; E78.5 Hyperlipidemia, unspecified; Z12.5 Encounter for screening for malignant neoplasm of prostate; N18.32 Chronic kidney disease, stage 3b
CPT/HCPCS: 36415; 80048; 80061; 80076; 83036; 85025; G0103

== ENCOUNTER 2024-05-01 12:12 | Outpatient (OUT) | payer MEDICARE, OTHER, SELFPAY ==
[2024-05-01 13:19] LABS: Creatinine Urine Random 59.79 mg/dL (20.00-300.00); Microalbumin Urine Random <1.3 mg/dL (<=30.0)
[2024-05-01 13:30] LABS: Percent Iron Saturation 9.2 %
[2024-05-01 14:56] LABS: Magnesium 1.4 mg/dL (1.8-2.4); Phosphorus 3.6 mg/dL (2.6-4.7)
[2024-05-02 11:10] LABS: PTH, Intact 42 pg/mL (15-65)
== END 2024-05-01 12:13 | disposition home or self-care (01) ==
LOC: LAB 12:12
PROVIDERS: PCP Family Medicine
DX: Z79.899 Other long term (current) drug therapy (principal); E11.65 Type 2 diabetes mellitus with hyperglycemia; E78.5 Hyperlipidemia, unspecified; Z12.5 Encounter for screening for malignant neoplasm of prostate; N18.32 Chronic kidney disease, stage 3b
CPT/HCPCS: 36415; 80048; 80061; 80076; 82042; 82043; 82306; 82570; 82728; 83036; 83540; 83550; 83735; 83970; 84100; 85025; G0103

== ENCOUNTER 2024-08-05 12:22 | Day surgery (SDC) | payer MEDICARE, OTHER, SELFPAY ==
--- NOTE | 2024-08-05 12:26 | FL_ITS ---
[address] [address] Patient Name: JASON DEAN MRN: [id number] date: 1945 Sex: M Assigned Patient Location: [place] Current Patient Location: [place] Accession/Order Number: [id number] Exam Date: 08/05/2024 12:50 Report Date: 08/05/2024 15:56 At the request of: RAHEL HENSLEY Procedure: FL arthrogram shoulder EXAMINATION: FL arthrogram shoulder, FL guided needle placement HISTORY: Shoulder Pain FLUORO DOSE: Cannot be calculated. mGy Reference air kerma (Ka,r) COMPARISON: No relevant comparison available. TECHNIQUE: An arthrogram was performed under fluoroscopic guidance using non-ionic contrast material in the usual sterile manner after obtaining informed consent. Standard level fluoroscopic mode of operation utilized. FINDINGS: JOINT: Right shoulder NEEDLE: 25 gauge, 3.5 spinal needle. MEDICATION: 2 mL buffered 1% lidocaine for subcutaneous anesthesia. Approximately 6 mL injected into joint space consisting of a mixture of 5 mL Omnipaque-240 and 5 mL 1% Xylocaine. TECHNIQUE: Anterior approach under fluoroscopic guidance. CLINICAL: No significant pain prior to injection or change in pain following the injection. COMPLICATIONS: None. OTHER: Negative. FL/FL arthrogram shoulder IMPRESSION: 1. Technically successful arthrogram without complication. 2. Please see separate CT arthrogram report. Electronically authenticated by: PAPITO GUAMAN Date: 08/05/2024 15:56
--- NOTE | 2024-08-05 12:26 | FL_ITS ---
[address] [address] Patient Name: JASON DEAN MRN: [id number] date: 1945 Sex: M Assigned Patient Location: [place] Current Patient Location: [place] Accession/Order Number: [id number] Exam Date: 08/05/2024 12:50 Report Date: 08/05/2024 15:56 At the request of: RAHEL HENSLEY Procedure: FL guided needle placement EXAMINATION: FL arthrogram shoulder, FL guided needle placement HISTORY: Shoulder Pain FLUORO DOSE: Cannot be calculated. mGy Reference air kerma (Ka,r) COMPARISON: No relevant comparison available. TECHNIQUE: An arthrogram was performed under fluoroscopic guidance using non-ionic contrast material in the usual sterile manner after obtaining informed consent. Standard level fluoroscopic mode of operation utilized. FINDINGS: JOINT: Right shoulder NEEDLE: 25 gauge, 3.5 spinal needle. MEDICATION: 2 mL buffered 1% lidocaine for subcutaneous anesthesia. Approximately 6 mL injected into joint space consisting of a mixture of 5 mL Omnipaque-240 and 5 mL 1% Xylocaine. TECHNIQUE: Anterior approach under fluoroscopic guidance. CLINICAL: No significant pain prior to injection or change in pain following the injection. COMPLICATIONS: None. OTHER: Negative. FL/FL guided needle placement IMPRESSION: 1. Technically successful arthrogram without complication. 2. Please see separate CT arthrogram report. Electronically authenticated by: PAPITO GUAMAN Date: 08/05/2024 15:56
[2024-08-05] MEDS: LIDOCAINE HCL 15 ML, SODIUM BICARBONATE 1 MEQ INJ (13:15)
--- NOTE | 2024-08-05 13:52 | CT_ITS ---
The [address] [address] Patient Name: JASON DEAN MRN: [id number] date: 1945 Sex: M Assigned Patient Location: [place] Current Patient Location: Accession/Order Number: [id number] Exam Date: 08/05/2024 13:48 Report Date: 08/06/2024 11:02 At the request of: RAHEL HENSLEY Procedure: CT Shoulder RT w contrast Exam Type: CT RIGHT SHOULDER Exam Date and Time: 08/05/2024 1:48 PM EST Indication: 79 years old Male with pain Comparison: No recent relevant imaging TECHNIQUE: Axial CT images of the right shoulder following the uneventful intra-articular administration of contrast. See separate arthrogram report. Coronal and sagittal reformatted images were obtained. Dose reduction techniques were achieved by using automated exposure control and/or adjustment of mA and/or kV according to patient size and/or use of iterative reconstruction technique. FINDINGS: The acromioclavicular joint appears congruent with joint space narrowing, marginal osteophytes and capsular hypertrophy. Contrast fluid within the subacromial subdeltoid bursa is consistent with a full-thickness rotator cuff tear. There are full-thickness, fullwidth tears of the supraspinatus and infraspinatus tendons with proximal retraction the glenoid. The teres minor tendon appears intact. The subscapularis tendon demonstrates full-thickness, near full width tearing. Atrophy of the supraspinatus, infraspinatus and subscapularis muscles. Intracapsular biceps tendon is not confidently identified and potentially torn. The humerus is high riding on the glenoid. Moderate osteoarthritis of the glenohumeral joint with joint space narrowing marginal osteophytes. No axillary lymphadenopathy. Limited evaluation of the right hemithorax is without acute or suspicious abnormality. CT/CT Shoulder RT w contrast IMPRESSION: 1. Massive rotator cuff tear. 2. Probable intracapsular biceps tendon rupture. 3. Moderate acromioclavicular and glenohumeral osteoarthritis. No fracture. Electronically authenticated by: DAWSON POLLARD Date: 08/06/2024 11:02
--- NOTE | 2024-08-06 09:33 | SUR.PREOP ---
07/30/23 Pt instructed on procedure, date, time,and prep. Pt states that he has been allowed to hold his Xarelto previously for surgical procedure. Pt instructed to hold Xarelto for 2 days and Aspirin for 5 days prior to procedure.
== END 2024-08-05 13:45 | disposition home or self-care (01) ==
LOC: FL 12:23
PROVIDERS: Radiology Diagnostic Radiology; PCP Family Medicine; Visit Provider Nurse Practitioner Family
DX: M24.811 Other specific joint derangements of right shoulder, not elsewhere classified (principal); M75.121 Complete rotator cuff tear or rupture of right shoulder, not specified as traumatic
CPT/HCPCS: 23350; 73201; 77002; Q9967

== ENCOUNTER 2024-10-16 12:50 | Outpatient (OUT) | payer MEDICARE, OTHER, SELFPAY ==
--- NOTE | 2024-10-16 13:00 | CA_ITS ---
Patient Name: JASON DEAN MR#: [id number] : 1945 Exam Date: 10/16/2024 Ordering Doctor: DR ISH STOVER M.D. ECHOCARDIOGRAM REPORT PROCEDURE: CA ECHO DOPPLER COMPLETE INDICATIONS: Aortic valve replacement, pacemaker, hypertension COMPARISON: None. DESCRIPTION: COMPLETE ECHOCARDIOGRAM Real-time transthoracic echocardiography with 2D, M-mode, spectral and color flow Doppler performed. QUALITY: Technical quality was good. LEFT VENTRICLE: Normal chamber size. Normal left ventricular wall thickness. Normal systolic function. LV EF: Normal left ventricular ejection fraction, (60-65%). DIASTOLIC: Grade II diastolic dysfunction. ATRIAL SEPTUM: Visually appears intact. LEFT ATRIUM: Mild dilatation. RIGHT ATRIUM: Normal chamber size. RIGHT VENTRICLE: Normal chamber size. Normal systolic function. Pacer wire present. TRICUSPID VALVE: Normal mobility and thickness. No stenosis with mild regurgitation. Doppler studies reveal moderately (45-60) elevated right sided pressures. RVSP 48 mmHg MITRAL VALVE: Normal mobility and thickness. No evidence of mitral valve stenosis. There is no mitral annular calcification. Trivial mitral regurgitation. AORTIC VALVE: Bio-Prosthetic valve appears well seated in the aortic position with abnormal doppler flow. Mean gradient 18 mmHg, peak velocity 2.74 m/s. No aortic regurgitation. AORTIC ROOT: Normal diameter and appearance, measuring 3.2 cm. PULMONIC VALVE: Normal thickness and mobility. No stenosis. Trivial regurgitation. PERICARDIUM: No evidence of pericardial effusion. IVC: Appears dilated. Does not fully collapse. PLEURA: CONCLUSION: 1. Normal left ventricular size and systolic function. LVEF is estimated at 60 to 65%. 2. Normal right ventricular size and systolic function. 3. Grade 2 diastolic dysfunction. 4. Bioprosthetic aortic valve is well-seated with normal Doppler flows and no regurgitation. 5. Mild tricuspid regurgitation. 6. Moderately elevated right-sided pressures. RVSP is 48 mmHg. Adult Echocardiography Procedure Report Left Ventricle LVEDD (3.7 - 5.6 cm): 4.15 cm LVESD (2.2 - 4.0 cm): 2.74 cm LVIVS thickness (0.6 - 1.2 cm): 0.93 cm LVPW thickness (0.5 - 1.0 cm): 0.94 cm e': 0.06 m/s E - e': 16.46 LVOT Max Gradient: 3.45 mm[Hg] LVOT Area (cm2): 0.93 m/s Peak Velocity (LVOT): 0.93 m/s Mean Velocity (LVOT): 0.64 m/s LVOT Diameter 2.00 cm Left Atrium LA Volume Index (2D A2C): 37.39 ml/m2 Left Atrium Systolic Dimension: 4.34 cm Mitral Valve MV E to A Ratio: 1.04 Mitral Valve A-Wave Peak Velocity: 0.97 m/s Mitral Valve E-Wave Peak Velocity: 1.01 m/s Right Ventricle Aorta AO Root Diam: 3.17 cm Aortic Valve AoV Area (Peak Jerardo): 1.06 cm2, 1.06 cm2 AoV Area (VTI): 1.09 cm2, 1.09 cm2 Peak Velocity(Antegrade Flow): 2.74 m/s Peak Gradient(Antegrade Flow): 29.95 mm[Hg] Mean Velocity(Antegrade Flow): 2.01 m/s Mean Gradient(Antegrade Flow): 17.79 mm[Hg] Velocity Time Integral: 66.96 cm Tricuspid Valve Peak Velocity (Regurgitant Flow): 2.50 m/s, 2.85 m/s, 2.83 m/s Pulmonic Valve Mean Gradient: 3.53 mm[Hg] Mean Velocity: 0.85 m/s Peak Velocity: 1.40 m/s, 1.26 m/s Peak Gradient: 6.31 mm[Hg], 7.85 mm[Hg] Right Atrium Right Atrium Systolic Pressure: 43.41 ml, 43.41 ml Dictated by: Dedrick Boyd M.D. on 10/16/2024 at 20:54 Approved by: Dedrick Boyd M.D. on 10/16/2024 at 20:59
== END 2024-10-16 12:51 | disposition home or self-care (01) ==
LOC: CARD 12:50
PROVIDERS: PCP Family Medicine; Visit Provider Internal Medicine Interventional Cardiology
DX: I35.9 Nonrheumatic aortic valve disorder, unspecified (principal); I35.0 Nonrheumatic aortic (valve) stenosis
CPT/HCPCS: 93306

== ENCOUNTER 2024-11-07 15:03 | Outpatient (OUT) | payer MEDICARE, OTHER, SELFPAY ==
[2024-11-07 15:20] LABS: Basophils Percent Auto 0.6 % (0.2-2.0); Eosinophils Absolute Auto 0.2 10^3/uL (0.0-0.7); Eosinophils Percent Auto 2.7 % (0.9-7.0); Hematocrit 38.9 % (42.0-54.0); Hemoglobin 12.4 g/dL (14.0-18.0); Immature Granulocytes Abs Auto 0.02 10^3/uL (0.00-0.03); Immature Granulocytes Pct Auto 0.3 % (0.0-0.5); Lymphocytes Absolute Auto 1.3 10^3/uL (1.2-3.8); Lymphocytes Percent Auto 19.8 % (20.5-60.0); Mean Corpuscular HGB Conc 31.9 g/dL (29.9-35.2); Mean Corpuscular Hemoglobin 29.7 pg (25.9-34.0); Mean Corpuscular Volume 93.1 fL (80.0-94.0); Mean Platelet Volume 10.6 fL (9.5-13.5); Monocytes Absolute Auto 0.7 10^3/uL (0.3-0.8); Monocytes Percent Auto 10.2 % (1.7-12.0); Neutrophils Absolute Auto 4.4 10^3/uL (1.4-6.5); Neutrophils Percent Auto 66.4 % (43.0-75.0); Platelet Count 217 10^3/uL (150-450); Red Blood Count 4.18 10^6/uL (4.70-6.10); Red Cell Distribution Width 14.3 % (11.0-15.0); White Blood Count 6.6 10^3/uL (4.0-11.0)
[2024-11-07 15:44] LABS: Anion Gap 4.6; BUN Creatinine Ratio 13.8; Calcium 9.4 mg/dL (8.5-10.1); Carbon Dioxide 36.4 mmol/L (21.0-32.0); Chloride 104 mmol/L (98-107); Estimated GFR (African America 34 (>=60 mL/min/1.73m^2); Estimated GFR (Non-African Ame 28 (>=60 mL/min/1.73m^2); Glucose 183 mg/dL (74-106); Sodium 141 mmol/L (136-145)
== END 2024-11-07 15:04 | disposition home or self-care (01) ==
LOC: LAB 15:07
PROVIDERS: PCP Family Medicine
DX: I50.31 Acute diastolic (congestive) heart failure (principal)
CPT/HCPCS: 36415; 80048; 83880; 85025

== ENCOUNTER 2024-12-13 11:22 | Outpatient (OUT) | payer MEDICARE, OTHER, SELFPAY ==
--- OUTSIDE RECORDS SUMMARY | 2024-03-12 06:39 | XMS_ITS ---
Author Organization [facility] in [place] Address [address] [place] [address] Care Team Providers Care Rooter Operator Name Role Phone Idris Donnelly MD Primary Care Provider Unavailab german Artloki Rashawn Unavailable [phone] REASON FOR VISIT Iron pill Medications Medication SIG (Take, Route, Frequency, Duration) Notes Start Date End Date Status Ferrous Sulfate 325 (65 Fe) MG 1 tablet Orally daily for 30 days 03/11/2024 Active Encounters Encounter Location Date Provider Diagnosis [facility] [address] [place] [address] 03/12/2024 Rashawn Becerra Chronic kidney disease, stage 3b N18.32 Assessments Encounter Date Diagnosis (ICD Code) Assessment Notes Treatment Notes Treatment Clinical Notes Section Notes 03/12/2024 Chronic kidney disease, stage 3b (ICD-10 - N18.32) Plan Of Treatment Medication Medication Name Sig Start Date Stop Date Notes Ferrous Sulfate 325 (65 Fe) MG 1 tablet Orally daily for 30 days 03/11/2024 Next Appt Details Provider Name:Rashawn Becerra, 12/23/2024 02:20:00 PM, [address] [place], [address], Progress Notes * Cole BARTHOLOMEW ADOB:[birth year] (78 yo M)Acc No.[id number]:03/12/2024 Patient: Cole VICENTE :1945 A ge:78 Y S ex:Male Address:[address] [place], [address] * Refills Refill Ferrous Sulfate Tablet Delayed Release, 325 (65 Fe) MG, Orally, 30, 1 tablet, daily, 30 days, Refills=5 * true * Date: Generated for Sadi brewer/Vera/Julio on: 0 12/13/2024 11:24 AM EDT
--- OUTSIDE RECORDS SUMMARY | 2024-11-11 10:00 | XMS_ITS ---
Author Organization The [facility] in [place] Address [address] [place] [address] Care Team Providers Care Program Proposals Coordinator Name Role Phone Idris Donnelly MD Primary Care Provider Unavailab Rashawn Benz Unavailable [phone] REASON FOR VISIT 6 month ov Encounters Encounter Location Date Provider Diagnosis [facility] [address] [place] [address] 11/11/2024 Rashawn Becerra Plan Of Treatment Next Appt Details Provider Name:Rashawn Becerra, 12/23/2024 02:20:00 PM, [address] [place], [address], Progress Notes * Cole BARTHOLOMEW ADOB:[birth year] (79 yo M)Acc No.[id number]:11/11/2024 UNLOCKED PROGRESS NOTE Progress Note Patient: Cole VICENTE Provider: Victor Hugo Becerra MD :1945 A ge:79 Y S ex:Male Date:11/11/2024 Address:[facility] [address], [id number] Pcp:Idris Donnelly MD Subjective: * Chief Complaints: * 1 . 6 month ov. * Medical History: Objective: * Vitals: Assessment: Plan: * Treatment: * * Electronic signature of Rashawn Becerra MD, [id number] on 12/13/2024 at 11:24 AM EDT Sign off status: Pending Visit Status: R /S (Rescheduled) * Provider: Victor Hugo Becerra MD Date: 0 11/11/2024 Generated for Sadi brewer/Vera/Kamilaitting on: 0 12/13/2024 11:24 AM EDT
--- OUTSIDE RECORDS SUMMARY | 2024-12-13 11:24 | XMS_ITS | Clinical Summary ---
Author Organization [facility] Address [id number] [address] [place] [address] Care Team Providers Care Sheet Metal Smith Name Role Phone Idris Donnelly MD Primary Care Provider [phone] Allergies Active Allergy Reactions Criticality Noted Date Comments Sulfa (Sulfonamide Antibiotics) 10/2016 Medications rOPINIRole (REQUIP) 0.25 mg tablet Take 1 tablet (0.25 mg total) by mouth nightly. TAKE 2 HRS BEFORE BED Active omeprazole (PriLOSEC) 20 mg capsule Take 1 capsule (20 mg total) by mouth in the morning and 1 capsule (20 mg total) before bedtime. Active atorvastatin (LIPITOR) 40 mg tablet Take 1 tablet (40 mg total) by mouth in the morning. Active glimepiride (AMARYL) 2 mg tablet Take 1 tablet (2 mg total) by mouth every morning before breakfast. Active blood sugar diagnostic strip by miscellaneous route. Active carvediloL (COREG) 12.5 mg tablet Take 1 tablet (12.5 mg total) by mouth in the morning and 1 tablet (12.5 mg total) before bedtime. Active gabapentin (NEURONTIN) 600 mg tablet Take 1 tablet (600 mg total) by mouth 3 (three) times a day. 2 Active tamsulosin (FLOMAX) 0.4 mg capsule Take 1 capsule (0.4 mg total) by mouth in the morning. 2 Active torsemide (DEMADEX) 5 mg tablet Take 1 tablet (5 mg total) by mouth daily. Active aspirin 81 mg Take 1 tablet (81 mg total) by mouth in the morning. Active montelukast (SINGULAIR) 10 mg tabletIndicati ons:Chronic rhinitis Take 1 tablet (10 mg total) by mouth in the morning. 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 Bilateral leg edema 11/03/2023 BPH without urinary obstruction 11/03/2023 Complete heart block 11/03/2023 Degenerative cervical spinal stenosis 11/03/2023 Degenerative lumbar spinal stenosis 11/03/2023 Diabetic polyneuropathy 11/03/2023 DVT of lower extremity, bilateral 11/03/2023 Dyslipidemia 11/03/2023 Gastroesophageal reflux disease 11/03/2023 Peripheral vascular disease, unspecified 024 Type 2 diabetes mellitus wit h hyperglycemia, without long-term current use of insulin 11/03/2023 CKD stage 3b, GFR 30-44 ml/min 11/03/2023 Anxiety 10/18/2023 Carpal tunnel syndrome, left upper limb 10/18/19 Cervical myelopathy 10/18/2023 Dysphagia 10/18/2023 History of colon polyps 10/18/2023 Incomplete 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 10/18/2023 Leukocytosis 10/18/2023 Neurologic gait dysfunction 10/18/2023 Orthostatic hypotension 10/18/2023 Hematospermia 02/14/2023 Overview (02/14/2023): 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 Explained to him that there are a few papers associating hematospermia with prostate cancer but given that he has already had this no additional concern. This is almost always a benign condition. Reassured him with no additional workup planned unless this becomes an ongoing issue. CHF (congestive heart failur e), NYHA class III, acute on chronic, diastolic 11/30/2022 Overview (04/19/2024): Last Assessment & Plan: [facility] III- SOB with ADLs, minimal exertion. + edema and weight gain with CKD Continue GDMT- Asked pt to increase lasix back to 40 mg daily or 20 mg bid. He is currently taking 20 mg daily r/t low b/p and dizziness B/P 116/70 at home Had extended d/w pt regarding low sodium diet, and fluid restriction of 1.5- 2L/day, and to weight himself daily- call office for weight gain of 2 pounds in 1 day or 5 pounds in 1 week- he voiced understanding Monitor daily weights, I&O, fluid restriction 1.5-2L/day, renal function and electrolytes- please maintain K+>4 and Mg > 2 Chronic rhinitis 07/25/2022 Arthritis of right knee 06/08/2022 Laceration without foreign b yosvany, left lower leg, initial encounter 06/08/2022 Paroxysmal atrial fibrillation 03/22/2022 Overview (04/19/2024): Last Assessment & Plan: Currently in sinus rhythm per EKG today. Continue coreg and xarelto anticoagulation Aortic valve stenosis 12/18/2020 Benign essential hypertension 05/17/2019 Overview (04/19/2024): Last Assessment & Plan: Hypertension is stable- D/W pt that his low b/p is not really hypotensive. Carcinoma of prostate 05/17/2019 Carotid atherosclerosis 05/17/2019 Stage 3 chronic kidney disease 05/17/2019 Overview (04/19/2024): Last Assessment & Plan: F/U with nephrology Immunizations Immunization Administration Dates Next Due Influenza, Unspecified 06/04/2014 Pneumococcal Conjugate 13-Valent 06/04/2014 Family History Medical History Relation Name Comments No Known Problems Father Heart disease Mother Mental illness Mother Relation Name Status Comments Father Mother Social History Tobacco Use Types Packs/Day Years Used Date Smoking Tobacco: Never Smokeless Tobacco: Never Tobacco Cessation:Counseling Given: Not Answered Alcohol Use Standard Drinks/Week Comments Yes 0 (1 standard drink = 0.6 oz pur e alcohol) Childcare Answer Date Recorded Childcare Unknown 12/12/2018 Employment Answer Date Recorded Employment Unknown 12/12/2018 Hunger Screening Answer Date Recorded Within the past 12 months we worried whether our food would run out before we got money to buy more. Never True 07/19/2024 Within the past 12 months th e food we bought just didn't last and we didn't have money to get more. Never True 07/19/2024 Purpose - Life Answer Date Recorded Purpose and direction in life Unknown Sex and Gender Information Value Date Recorded Sex Assigned at Not on file Legal Sex Male 11:21 AM EDT Gender Identity Not on file Sexual Orientation Not on file Last Filed Vital Signs Vital Sign Reading Time Taken Comments Blood Pressure 128/80 08/02/2024 1:21 PM EST Pulse 75 08/02/2024 1:21 PM EST Temperature 36.6 C (97.8 F) 08/02/2024 1:21 PM EST Respiratory Rate 16 08/02/2024 1:21 PM EST Oxygen Saturation 97% 08/01/2016 2:45 PM EST Inhaled Oxygen Concentration - - Weight 92.1 kg (203 lb) 02/14/2023 2:41 PM EDT Height 175.3 cm (5' 9 ) 02/14/2023 2:41 PM EDT Body Mass Index 29.98 02/14/2023 2:41 PM EDT Plan of Treatment Health Maintenance Due Date Last Done Comments Depression Screening 1955 Zoster (Shingles) Vaccine (1 of 2) 1962 Fall Risk Screening 2008 COVID-19 Vaccine (7 - Modern a risk season) 2024 05/08/2024, 05/11/2023, 05/06/2022, Additional history exists Influenza Vaccine 03/03/2025 05/08/2024, , 05/06/2022, Additional history exists Tobacco Screening 08/02/2025 08/02/2024 DTaP,Tdap and Td Vaccines (2 - Td or Tdap) 03/23/2034 03/23/2024 Medical Devices Not on file Insurance MEDICARE [facility] Care Teams Sheet Metal Smith Relationship Specialty Start Date End Date Idris Donnelly MD PCP - General 11/02/16
--- OUTSIDE RECORDS SUMMARY | 2024-12-13 11:25 | XMS_ITS | Encounter Summary ---
Author Organization [facility] Address [address] [place] [address] Care Team Providers Care Gelatin Powder Mixer Name Role Phone Idris Donnelly MD Primary Care Provider [phone] Encounter Details Date Type Department Care Team (Late Contact Info) Description 03/19/2024 Orders Only [facility] [address] [place] [phone] Idris Donnelly MD [address] [place] [phone] Social History Tobacco Use Types Packs/Day Years Used Date Smoking Tobacco: Former Cigarettes Q uit: 1970 Alcohol Use Standard Drinks/Week Comments Yes 2 (1 standard drink = 0.6 oz pur e alcohol) Caffeine 2-3 cups per day Sex and Gender Information Value Date Recorded Sex Assigned at Not on file Legal Sex Male 8:00 PM EDT Gender Identity Not on file Sexual Orientation Not on file documented as of this encounter Plan of Treatment Upcoming Encounters Date Type Department Care Team (Late Contact Info) Description 01/01/2025 1:00 PM EDT Office Visit [facility] [address] [place] [address] Ernie Burch PA [address] [place] [address] 01/02/2025 11:15 AM EDT Office Visit [facility] [address] [place] [phone] Idris Donnelly MD [address] [place] [address] documented as of this encounter Visit Diagnoses Not on filedocumented in this encounter Care Teams Gelatin Powder Mixer Relationship Specialty Start Date End Date Idris Donnelly MD [address] [place] [address] PCP - General Family Medicine 08/21/23 documented as of this encounter
--- OUTSIDE RECORDS SUMMARY | 2024-12-13 11:25 | XMS_ITS | Clinical Summary ---
Author Organization [facility] Address [address] [place] [address] Care Team Providers Care Interventional Radiology Technologist Name Role Phone Idris Donnelly MD Primary Care Provider [phone] Allergies Active Allergy Reactions Criticality Noted Date Comments Sulfa Antibiotics Swelling,Unknown Medium 10/04/2016 Other Reaction(s): Not available Medications Xarelto 20 MG tablet TAKE 1 TABLET WITH EVENING MEAL, TAKE WITH FOOD 023 Active lisinopril 40 MG tablet Oral for 90 Active furosemide (Lasix) 20 MG tablet TAKE 1 TABLET BY MOUTH DAILY NEEDED (take for the next 2-3 days, may take NEEDED for leg swelling and SHORTNESS OF BREATH) Active aspirin 81 MG EC tablet Take 1 tablet by mouth in the morning. Active hydrALAZINE (Apresoline) 25 MG tablet 024 Active glimepiride (Amaryl) 2 MG tabletIndication s:Type 2 diabetes mellitus with hyperglycemia, with long-term current use of insulin (HCC) Take 1 tablet (2 mg) by mouth in the morning and 1 tablet (2 mg) before bedtime. 180 tablet 3 024 Active pioglitazone (Actos) 30 MG tabletIndication s:Type 2 diabetes mellitus with hyperglycemia (HCC) TAKE 1 TABLET DAILY 90 tablet 3 024 Active atorvastatin (Lipitor) 40 MG tabletIndication s:Dyslipidemia TAKE 1 TABLET DAILY 90 tablet 3 024 Active tamsulosin (Flomax) 0.4 MG 24 hr capsuleIndicatio ns:BPH without urinary obstruction TAKE 1 CAPSULE DAILY 90 capsule 3 024 Active carvedilol (Coreg) 6.25 MG tabletIndication s:Chronic heart failure with preserved ejection fraction (HFpEF) ([facility]) TAKE 1 TABLET TWICE A DAY 180 tablet 3 Active ferrous sulfate (Fe Tabs) 325 (65 Fe) MG EC tabletIndication s:Iron deficiency anemia due to chronic blood loss Take 1 tablet (325 mg) by mouth in the morning. Take with meals. Do not crush, chew, or split.. 30 tablet 11 Active glucose blood test stripIndications :Type 2 diabetes mellitus with hyperglycemia, without long-term current use of insulin ([facility]) Test once daily 100 each 12 024 2024 Active methylPREDNISolo ne (Medrol Dospak) 4 MG tabletsIndicatio ns:Impingement of left shoulder Follow schedule on package instructions 21 tablet Active Additional Information Patient not taking.Reported on 07/29/2024 montelukast (Singulair) 10 MG tabletIndication s:Seasonal allergic rhinitis due to pollen TAKE 1 TABLET DAILY 30 tablet 5 025 Active Azelastine-Fluti casone 137-50 MCG/ACT suspensionIndica tions:Seasonal allergic rhinitis due to pollen ADMINISTER 2 SPRAYS INTO AFFECTED NOSTRIL(S) IN THE MORNING AND 2 SPRAYS BEFORE BEDTIME. 69 g 3 025 Active pantoprazole (ProtoNix) 40 MG EC tabletIndication s:Gastroesophage al reflux disease, unspecified whether esophagitis present TAKE 1 TABLET BY MOUTH TWICE DAILY 180 tablet 3 025 Active rOPINIRole (Requip) 0.25 MG tabletIndication s:Restless legs TAKE 1 TABLET BY MOUTH AT BEDTIME 90 tablet 3 025 Active gabapentin (Neurontin) 600 MG tabletIndication s:Spinal stenosis, cervical region Take 1 tablet (600 mg) by mouth in the morning and 1 tablet (600 mg) in the evening and 1 tablet (600 mg) before bedtime. 90 tablet 2 025 Active rOPINIRole (Requip) 0.25 MG tabletIndication s:Restless legs Take 1 tablet (0.25 mg) by mouth at bedtime 90 tablet 3 024 2024 Discontinued gabapentin (Neurontin) 600 MG tabletIndication s:Spinal stenosis, cervical region TAKE 1 TABLET BY MOUTH THREE TIMES DAILY (IN THE MORNING, IN THE EVENING, and BEFORE bedtime) 90 tablet 2 025 2024 Discontinued(R eorder) Active Problems Problem Noted Date Diagnosed Date Chronic pain of both shoulders 07/04/2024 Assessment & Plan (07/04/2024 11:24 AM EST): Severe pain and decreased ROM of arms. Prior bilateral rotator cuff surgery years ago. Refer to ortho and start PT. Use tylenol PRN. Unsteady gait 04/29/2024 Traumatic ulcer of right lower leg with fat laye r exposed 04/19/2024 Assessment & Plan (07/04/2024 11:25 AM EST): Healing well and follow with wound care. Wound of right leg, subsequent encounter Assessment & Plan (04/10/2024 11:13 AM EDT): Wound not healing well and refer to wound care. Chronic heart failure with p reserved ejection fraction (HFpEF) 12/04/2023 Assessment & Plan (07/04/2024 11:24 AM EST): Edema stable and continue medication. Elevate legs PRN. Follow up with cardiology as scheduled. Assessment & Plan (12/04/2023 1:34 PM EDT): Edema stable and continue medication. Elevate legs PRN. Follow up with cardiology as scheduled. Paroxysmal atrial fibrillation 12/04/2023 Assessment & Plan (07/04/2024 11:25 AM EST): In NSR and monitor. Follow up with cardiology as scheduled. Assessment & Plan (12/04/2023 1:35 PM EDT): In NSR and monitor. Follow up with cardiology as scheduled. 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 Assessment & Plan (12/04/2023 1:35 PM EDT): BP controlled and monitor PRN. BPH without urinary obstruction 11/03/2023 Complete heart block 11/03/2023 Degenerative cervical spinal stenosis 11/03/2023 Degenerative lumbar spinal stenosis 11/03/2023 Assessment & Plan (03/28/2024 2:24 PM EDT): Unsteady when up and moving and script for cane to patient. Dyslipidemia 11/03/2023 Bilateral leg edema 11/03/2023 Gastroesophageal reflux disease 11/03/2023 Hematospermia 11/03/2023 Peripheral vascular disease, unspecified 024 Assessment & Plan (07/04/2024 11:25 AM EST): Symptoms stable and continue medication. Assessment & Plan (12/04/2023 1:35 PM EDT): C/o discoloration and check FELICIA. CKD stage 3b, GFR 30-44 ml/min 11/03/2023 Assessment & Plan (07/04/2024 11:26 AM EST): Repeat labs next visit. Type 2 diabetes mellitus wit h hyperglycemia, without long-term current use of insulin 11/03/2023 Assessment & Plan (07/04/2024 11:26 AM EST): Not checking BS but last A1C 5.9. Stick to ADA diet and limit carbs. Assessment & Plan (03/28/2024 2:24 PM EDT): Reports BS controlled and due for A1C. Stick to ADA diet and limit carbs. Assessment & Plan (12/04/2023 1:35 PM EDT): Reports BS controlled and due for A1C. Stick to ADA diet and limit carbs. Diabetic polyneuropathy 11/03/2023 Assessment & Plan (07/04/2024 11:25 AM EST): Pain stable and continue neurontin. Assessment & Plan (12/04/2023 1:34 PM EDT): Pain stable and continue neurontin. Resolved Problems Problem Noted Date Diagnosed Date Resolved Date Cellulitis of right lower leg 03/28/2024 07/04/2024 Assessment & Plan (04/10/2024 11:12 AM EDT): Redness improved with antibiotics but worsened over past few days. Increased pain and swelling and repeat augmentin. Refer to wound care. Assessment & Plan (03/28/2024 2:23 PM EDT): Redness improved and complete antibiotics as prescribed. Major depressive disorder, r ecurrent episode, mild 11/03/2023 12/04/2023 Encounters Date Type Department Care Team Description 12/03/2024 Refill [facility] [address] [place] [phone] Idris Donnelly MD Spinal stenosis, cervical region 11/30/2024 Refill [facility] [address] [place] [address] Idris Donnelly MD Restless legs 11/07/2024 Clinisync Result Encounter [facility] External Department Unsolicited Provider, Generic External Data 10/31/2024 Refill [facility] [address] [place] [address] Idris Donnelly MD Spinal stenosis, cervical region 10/16/2024 Clinisync Result Encounter [facility] External Department Unsolicited Provider, Generic External Data 10/07/2024 Refill [facility] [address] [place] [phone] Idris Donnelly MD Gastroesophageal reflux disease, unspecified whether esophagitis present from Last 3 Months Family History Medical History Relation Name Comments Diabetes Father Stroke Father Heart disease Mother Hypertension Mother Relation Name Status Comments Father Mother Sister 1 sister Social History Tobacco Use Types Packs/Day Years Used Date Smoking Tobacco: Former Cigarettes Q uit: 1970 Passive Smoke Exposure: Past Tobacco Cessation:Counseling Given: No Alcohol Use Standard Drinks/Week Comments Yes 2 (1 standard drink = 0.6 oz pur e alcohol) Caffeine 2-3 cups per day PHQ-2 Answer Date Recorded Patient Health Questionnaire-2 Score 0 03/28/2024 Sex and Gender Information Value Date Recorded Sex Assigned at Not on file Legal Sex Male 8:00 PM EDT Gender Identity Not on file Sexual Orientation Not on file Last Filed Vital Signs Vital Sign Reading Time Taken Comments Blood Pressure 130/58 07/04/2024 10:47 AM EST Pulse 96 07/04/2024 10:47 AM EST Temperature 36.4 C (97.5 F) 07/04/2024 10:47 AM EST Respiratory Rate 20 07/04/2024 10:47 AM EST Oxygen Saturation 97% 07/04/2024 10:47 AM EST Inhaled Oxygen Concentration - - Weight 85.3 kg (188 lb) 07/04/2024 10:47 AM EST Height 175.3 cm (5' 9 ) 07/04/2024 10:47 AM EST Body Mass Index 27.76 07/04/2024 10:47 AM EST Plan of Treatment Upcoming Encounters Date Type Department Care Team (Late st Contact Info) Description 01/01/2025 1:00 PM EDT Office Visit [facility] [address] [place] [phone] Ernie Burch PA [address] [place] [address] 01/02/2025 11:15 AM EDT Office Visit [facility] [address] [place] [phone] Idris Donnelly MD [address] [place] [address] Health Maintenance Due Date Last Done Comments Diabetes: Retinopathy Screening 1955 Diabetes: Hemoglobin A1C 10/30/2024 05/01/2024, 03/0 07/2017 Diabetes: Urine Protein Screening 03/06/2025 03/06/2024, 04/18/2019, 04/26/2018, Additional history exists Pneumococcal Vaccine: 65+ Years Completed 03/23/2020, 05/03/2015, 06/04/2014, Additional history exists Influenza Vaccine Completed 05/08/2024, , 05/06/2022, Additional history exists Procedures Procedure Name Priority Date/Time Associated Diagnosis Comments ALL PRO BNP Routine 11/07/2024 3:15 PM EDT ALL BASIC METABOLIC PANEL Routine 11/07/2024 3:15 PM EDT ALL CBC WITH AUTO DIFF Routine 11/07/2024 3:15 PM EDT CA ECHO DOPPLER COMPLETE 10/16/2024 8:59 PM EDT from Last 3 Months Results * ALL PRO BNP (11/07/2024 3:15 PM EDT) NT PRO B TYPE NATRIURETIC PEPT 343.0 <=1,800.0 pg/mL [facility] 11/07/2024 3:15 PM EDT 11/07/2024 3:17 PM EDT Narrative [facility] - 11/07/2024 3:44 PM EDT Generic External Data Provider [facility] F inal Result [facility] * (ABNORMAL) ALL CBC WITH AUTO DIFF (11/07/2024 3:15 PM EDT) TB WBC 6.6 4.0 - 11.0 10 3/uL TBH TBH RBC 4.18(L) 4.70 - 6.10 10 6/uL TBH TBH HGB 12.4(L) 14.0 - 18.0 g/dL TBH TBH HCT 38.9(L) 42.0 - 54.0 % TBH TBH MCV 93.1 80.0 - 94.0 fL TBH TBH MCH 29.7 25.9 - 34.0 pg TBH TBH MCHC 31.9 29.9 - 35.2 g/dL TBH TBH RDW 14.3 11.0 - 15.0 % TBH TBH PLT 217 150 - 450 10 3/uL TBH TBH MPV 10.6 9.5 - 13.5 fL TBH NEUTROPHILS PERCENT AUTO 66.4 43.0 - 75.0 % TBH LYMPHOCYTES PERCENT AUTO 19.8(L) 20.5 - 60.0 % TBH MONOCYTES PERCENT AUTO 10.2 1.7 - 12.0 % TBH TBH EO % 2.7 0.9 - 7.0 % TBH BASOPHILS PERCENT AUTO 0.6 0.2 - 2.0 % TBH IMMATURE GRANULOCYTES PCT AUTO 0.3 0.0 - 0.5 % TBH NEUTROPHILS ABSOLUTE AUTO 4.4 1.4 - 6.5 10 3/uL TBH LYMPHOCYTES ABSOLUTE AUTO 1.3 1.2 - 3.8 10 3/uL TBH MONOCYTES ABSOLUTE AUTO 0.7 0.3 - 0.8 10 3/uL TBH TBH EO # 0.2 0.0 - 0.7 10 3/uL TBH BASOPHILS ABSOLUTE AUTO 0.0 0.0 - 0.1 10 3/uL TBH IMMATURE GRANULOCYTES ABS AUTO 0.02 0.00 - 0.03 10 3/uL TBH 11/07/2024 3:15 PM EDT 11/07/2024 3:17 PM EDT Narrative [facility] - 11/07/2024 3:21 PM EDT us Generic External Data Provider [facility] F inal Result [facility] * (ABNORMAL) ALL BASIC METABOLIC PANEL (11/07/2024 3:15 PM EDT) SODIUM 141 136 - 145 mmol/L TBH POTASSIUM 4.0 3.5 - 5.1 mmol/L TBH CHLORIDE 104 98 - 107 mmol/L TBH CARBON DIOXIDE 36.4(H) 21.0 - 32.0 mmol/L TBH ANION GAP 4.6 TBH GLUCOSE 183(H) 74 - 106 mg/dL TBH BLOOD UREA NITROGEN 31.0(H) 7.0 - 18.0 mg/dL TBH CREATININE 2.25(H) 0.70 - 1.30 mg/dL TBH TBH EGFR-AF BANGLADESHI 34(L) >=60 mL/min/1.7 3m 2 TBH TBH EGFR-NON AF BANGLADESHI 28(L) >=60 mL/min/1.7 3m 2 TBH BUN CREATININE RATIO 13.8 TBH CALCIUM 9.4 8.5 - 10.1 mg/dL TBH 11/07/2024 3:15 PM EDT 11/07/2024 3:17 PM EDT Narrative [facility] - 11/07/2024 3:44 PM EDT us Generic External Data Provider [facility] F inal Result [facility] * CA ECHO DOPPLER COMPLETE (10/16/2024 8:59 PM EDT) Anatomical Region Laterality Modality Other 10/16/2024 8:59 PM EDT Narrative 10/16/2024 9:00 [place] [address] Cardiology Report Signed Patient: JASON BARTHOLOMEW MR#: [id number] : 1945 Acct:[id number] Age/Sex: 79 / M ADM Date: 10/16/24 Loc: CARD Attending Dr: Johnathan Stover M.D. Ordering Physician: Johnathan Stover M.D. Date of Service: 10/16/24 Procedure(s): CA echo doppler complete Accession Number(s): [id number] cc: Johnathan Stover M.D.; Idris Donnelly M.D. Patient Name: JASON BARTHOLOMEW MR#: [id number] : 1945 Exam Date: 10/16/2024 Ordering Doctor: DR JOHNATHAN STOVER M.D. ECHOCARDIOGRAM REPORT PROCEDURE: CA ECHO DOPPLER COMPLETE INDICATIONS: Aortic valve replacement, pacemaker, hypertension COMPARISON: None. DESCRIPTION: COMPLETE ECHOCARDIOGRAM Real-time transthoracic echocardiography with 2D, M-mode, spectral and color flow Doppler performed. QUALITY: Technical quality was good. LEFT VENTRICLE: Normal chamber size. Normal left ventricular wall thickness. Normal systolic function. LV EF: Normal left ventricular ejection fraction, (60-65%). DIASTOLIC: Grade II diastolic dysfunction. ATRIAL SEPTUM: Visually appears intact. LEFT ATRIUM: Mild dilatation. RIGHT ATRIUM: Normal chamber size. RIGHT VENTRICLE: Normal chamber size. Normal systolic function. Pacer wire present. TRICUSPID VALVE: Normal mobility and thickness. No stenosis with mild regurgitation. Doppler studies reveal moderately (45-60) elevated right sided pressures. RVSP 48 mmHg MITRAL VALVE: Normal mobility and thickness. No evidence of mitral valve stenosis. There is no mitral annular calcification. Trivial mitral regurgitation. AORTIC VALVE: Bio-Prosthetic valve appears well seated in the aortic position with abnormal doppler flow. Mean gradient 18 mmHg, peak velocity 2.74 m/s. No aortic regurgitation. AORTIC ROOT: Normal diameter and appearance, measuring 3.2 cm. PULMONIC VALVE: Normal thickness and mobility. No stenosis. Trivial regurgitation. PERICARDIUM: No evidence of pericardial effusion. IVC: Appears dilated. Does not fully collapse. PLEURA: CONCLUSION: 1. Normal left ventricular size and systolic function. LVEF is estimated at 60 to 65%. 2. Normal right ventricular size and systolic function. 3. Grade 2 diastolic dysfunction. 4. Bioprosthetic aortic valve is well-seated with normal Doppler flows and no regurgitation. 5. Mild tricuspid regurgitation. 6. Moderately elevated right-sided pressures. RVSP is 48 mmHg. Adult Echocardiography Procedure Report Left Ventricle LVEDD (3.7 - 5.6 cm): 4.15 cm LVESD (2.2 - 4.0 cm): 2.74 cm LVIVS thickness (0.6 - 1.2 cm): 0.93 cm LVPW thickness (0.5 - 1.0 cm): 0.94 cm e': 0.06 m/s E - e': 16.46 LVOT Max Gradient: 3.45 mm[Hg] LVOT Area (cm2): 0.93 m/s Peak Velocity (LVOT): 0.93 m/s Mean Velocity (LVOT): 0.64 m/s LVOT Diameter 2.00 cm Left Atrium LA Volume Index (2D A2C): 37.39 ml/m2 Left Atrium Systolic Dimension: 4.34 cm Mitral Valve MV E to A Ratio: 1.04 Mitral Valve A-Wave Peak Velocity: 0.97 m/s Mitral Valve E-Wave Peak Velocity: 1.01 m/s Right Ventricle Aorta AO Root Diam: 3.17 cm Aortic Valve AoV Area (Peak Jerardo): 1.06 cm2, 1.06 cm2 AoV Area (VTI): 1.09 cm2, 1.09 cm2 Peak Velocity(Antegrade Flow): 2.74 m/s Peak Gradient(Antegrade Flow): 29.95 mm[Hg] Mean Velocity(Antegrade Flow): 2.01 m/s Mean Gradient(Antegrade Flow): 17.79 mm[Hg] Velocity Time Integral: 66.96 cm Tricuspid Valve Peak Velocity (Regurgitant Flow): 2.50 m/s, 2.85 m/s, 2.83 m/s Pulmonic Valve Mean Gradient: 3.53 mm[Hg] Mean Velocity: 0.85 m/s Peak Velocity: 1.40 m/s, 1.26 m/s Peak Gradient: 6.31 mm[Hg], 7.85 mm[Hg] Right Atrium Right Atrium Systolic Pressure: 43.41 ml, 43.41 ml Dictated by: Halie Boyd M.D. on 10/16/2024 at 20:54 Approved by: Halie Boyd M.D. on 10/16/2024 at 20:59 Dictated By: HALIE BOYD Signed By: 10/16/242099 DD/ 58 TD/TT: Funeral Greeter: Procedure Note Radiology, Radiologist, MD - 10/16/2024 [place] [address] Cardiology Report Signed Patient: JASON BARTHOLOMEW [facility]#: [id number] : 3Acct:[id number] Age/Sex: 79 / MADM Date: 10/16/24 Loc: CARD Attending Dr: Johnathan Stover M.D. Ordering Physician: Johnathan Stover M.D. Date of Service: 10/16/24 Procedure(s): CA echo doppler complete Accession Number(s): [id number] cc: Johnathan Stover M.D.; Idris Donnelly M.D. Patient Name: JASON BARTHOLOMEW MR#: [id number] : 1945 Exam Date: 10/16/2024 Ordering Doctor: DR JOHNATHAN STOVER M.D. ECHOCARDIOGRAM REPORT PROCEDURE: CA ECHO DOPPLER COMPLETE INDICATIONS: Aortic valve replacement, pacemaker, hypertension COMPARISON: None. DESCRIPTION: COMPLETE ECHOCARDIOGRAM Real-time transthoracic echocardiography with 2D, M-mode, spectral and color flow Dopplerperformed. QUALITY: Technical quality was good. LEFT VENTRICLE: Normal chamber size. Normal left ventricular wall thickness. Normal systolic function. LV EF: Normal left ventricular ejection fraction, (60-65%). DIASTOLIC: Grade II diastolic dysfunction. ATRIAL SEPTUM: Visually appears intact. LEFT ATRIUM: Mild dilatation. RIGHT ATRIUM: Normal chamber size. RIGHT VENTRICLE: Normal chamber size. Normal systolic function.Pacer wire present. TRICUSPID VALVE: Normal mobility and thickness. No stenosis with mild regurgitation. Doppler studies reveal moderately (45-60) elevated rightsided pressures. RVSP 48 mmHg MITRAL VALVE: Normal mobility and thickness. No evidence of mitralvalve stenosis. There is no mitral annular calcification. Trivial mitral regurgitation. AORTIC VALVE: Bio-Prosthetic valve appears well seated in the aortic position with abnormal doppler flow. Mean gradient 18 mmHg, peak velocity2.74 m/s. No aortic regurgitation. AORTIC ROOT: Normal diameter and appearance, measuring 3.2 cm. PULMONIC VALVE: Normal thickness and mobility. No stenosis. Trivial regurgitation. PERICARDIUM: No evidence of pericardial effusion. IVC: Appears dilated. Does not fully collapse. PLEURA: CONCLUSION: 1. Normal left ventricular size and systolic function. LVEF is estimatedat 60 to 65%. 2. Normal right ventricular size and systolic function. 3. Grade 2 diastolic dysfunction. 4. Bioprosthetic aortic valve is well-seated with normal Doppler flows andno regurgitation. 5. Mild tricuspid regurgitation. 6. Moderately elevated right-sided pressures. RVSP is 48 mmHg. Adult Echocardiography Procedure Report Left Ventricle LVEDD (3.7 - 5.6 cm): 4.15 cm LVESD (2.2 - 4.0 cm): 2.74 cm LVIVS thickness (0.6 - 1.2 cm): 0.93 cm LVPW thickness (0.5 - 1.0 cm): 0.94 cm e': 0.06 m/s E - e': 16.46 LVOT Max Gradient: 3.45 mm[Hg] LVOT Area (cm2): 0.93 m/s Peak Velocity (LVOT): 0.93 m/s Mean Velocity (LVOT): 0.64 m/s LVOT Diameter 2.00 cm Left Atrium LA Volume Index (2D A2C): 37.39 ml/m2 Left Atrium Systolic Dimension: 4.34 cm Mitral Valve MV E to A Ratio: 1.04 Mitral Valve A-Wave Peak Velocity: 0.97 m/s Mitral Valve E-Wave Peak Velocity: 1.01 m/s Right Ventricle Aorta AO Root Diam: 3.17 cm Aortic Valve AoV Area (Peak Jerardo): 1.06 cm2, 1.06 cm2 AoV Area (VTI): 1.09 cm2, 1.09 cm2 Peak Velocity(Antegrade Flow): 2.74 m/s Peak Gradient(Antegrade Flow): 29.95 mm[Hg] Mean Velocity(Antegrade Flow): 2.01 m/s Mean Gradient(Antegrade Flow): 17.79 mm[Hg] Velocity Time Integral: 66.96 cm Tricuspid Valve Peak Velocity (Regurgitant Flow): 2.50 m/s, 2.85 m/s, 2.83 m/s Pulmonic Valve Mean Gradient: 3.53 mm[Hg] Mean Velocity: 0.85 m/s Peak Velocity: 1.40 m/s, 1.26 m/s Peak Gradient: 6.31 mm[Hg], 7.85 mm[Hg] Right Atrium Right Atrium Systolic Pressure: 43.41 ml, 43.41 ml Dictated by: Halie Boyd M.D. on 10/16/2024 at 20:54 Approved by: Halie Boyd M.D. on 10/16/2024 at 20:59 Dictated By: HALIE BOYD Signed By:10/16/242099 DD/ 58 TD/TT: Funeral Greeter: us Generic External Data Provider [facility] Final Result from Last 3 Months Insurance MEDICARE [employer] Advance Directives Documents on File Type Date Recorded Patient Project Mgr Expl anation Power of Cloth Weigher 02/19/2024 11:25 AM cande avina of family law attorney Care Teams Interventional Radiology Technologist Relationship Specialty Start Date End Date Idris Donnelly MD [address] [place] [phone] PCP - General Family Medicine 08/21/23
--- OUTSIDE RECORDS SUMMARY | 2024-12-13 11:25 | XMS_ITS | Encounter Summary ---
Author Organization [facility] Address [address] [place] [address] Care Team Providers Care Firer Watertender Name Role Phone Idris Donnelly MD Primary Care Provider [phone] Encounter Details Date Type Department Care Team (Late Contact Info) Description 01/25/2024 [facility] [address] [place] [phone] Idris Donnelly MD [address] [place] [phone] Social History Tobacco Use Types Packs/Day Years [...] Visit [facility] [address] [place] [address] Ernie Burch PA [address] [place] [address] 01/02/2025 11:15 AM EDT [facility] [address] [place] [phone] Idris Donnelly MD [address] [place] [address] documented as of this encounter Visit Diagnoses Not on filedocumented in this encounter Care Teams Firer Watertender Relationship Specialty Start Date End Date Idris Donnelly MD [address] [place] [address] PCP - General Family Medicine 08/21/23 documented as of this encounter
--- OUTSIDE RECORDS SUMMARY | 2024-12-13 11:25 | XMS_ITS | Encounter Summary ---
Author Organization [facility] Address [address] [place] [address] Care Team Providers Care Aerial Installer Name Role Phone Idris Donnelly MD Primary Care Provider [phone] Reason for Visit * Reason Comments Med Refill Encounter Details Date Type Department Care Team (Late Contact Info) Description 11/30/2024 Refill [facility] [address] [place] [address] Idris Donnelly MD [address] [place] [address] Restless legs Social History Tobacco Use Types Packs/Day Years Used Date Smoking Tobacco: Former Cigarettes Q uit: 1970 Passive Smoke Exposure: Past Alcohol Use Standard Drinks/Week Comments Yes 2 [...] on file documented as of this encounter Miscellaneous Notes * Telephone Encounter - BINTA BURCH - 12/02/2024 12:13 PM EDT MEDICATION SENT TO [facility] documented in this encounter Plan of Treatment Upcoming Encounters Date Type Department Care Team (Late Contact Info) Description 01/01/2025 1:00 PM EDT Office Visit [facility] [address] [place] [address] Ernie Burch, PA [address] [place] [address] 01/02/2025 11:15 AM EDT Office Visit [facility] [address] [place] [phone] Idris Donnelly MD [address] [place] [address] documented as of this encounter Visit Diagnoses Diagnosis Restless legs Restless legs syndrome (RLS) documented in this encounter Care Teams Aerial Installer Relationship Specialty Start Date End Date Idris Donnelly MD [address] [place] [address] PCP - General Family Medicine 08/21/23 documented as of this encounter
--- OUTSIDE RECORDS SUMMARY | 2024-12-13 11:25 | XMS_ITS | Encounter Summary ---
Author Organization [facility] Address [address] [place] [address] Care Team Providers Care Gold Leaf Printer Name Role Phone Idris Donnelly MD Primary Care Provider [phone] Encounter Details Date Type Department Care Team (Late Contact Info) Description 09/29/2023 [facility] [address] [place] [address] Idris Donnelly MD [address] [place] [address] Social History Tobacco Use Types Packs/Day Years [...] Visit [facility] [address] [place] [address] Ernie Burch PA [address] [place] [address] 01/02/2025 11:15 AM EDT [facility] [address] [place] [address] Idris Donnelly MD [address] [place] [address] documented as of this encounter Procedures Procedure Name Priority Date/Time Associated Diagnosis Comments ECHOCARDIOGRAM WITH DOPPLER IF INDICATED Routine 09/29/2023 7:24 AM EDT documented in this encounter Results * ECHOCARDIOGRAM WITH DOPPLER IF INDICATED (09/29/2023 7:24 AM EDT) Anatomical Region Laterality Modality Radiographic Emy ging Irdis Donnelly MD IMG XR PROCEDURES Final Result documented in this encounter Visit Diagnoses Not on filedocumented in this encounter Care Teams Gold Leaf Printer Relationship Specialty Start Date End Date Idris Donnelly MD [address] [place] [address] PCP - General Family Medicine 08/21/23 documented as of this encounter
--- OUTSIDE RECORDS SUMMARY | 2024-12-13 11:25 | XMS_ITS | Encounter Summary ---
Author Organization [facility] Address [address] [place] [address] Care Team Providers Care Mining Support Worker Name Role Phone Chris Jose MD Primary Care Provider [phone] Encounter Details Date Type Department Care Team (Late st Contact Info) Description 12/11/2023 Clinisync Result Encounter [facility] External Department Unsolicited Chris Jose MD [address] [place] [address] Social History Tobacco Use Types Packs/Day Years [...] Visit [facility] [address] [place] [phone] Ernie Burch, PA [address] [place] [address] 01/02/2025 11:15 AM EDT Office Visit [facility] [address] [place] [address] Chris Jose MD [address] [place] [address] documented as of this encounter Procedures Procedure Name Priority Date/Time Associated Diagnosis Comments VASC US LOWER EXTREMITY ARTERIAL DUPLEX BILATERAL 12/11/2023 3:47 PM EDT documented in this encounter Results * Vascular US lower extremity arterial duplex bilateral (12/11/2023 3:47 PM EDT) Anatomical Region Laterality Modality Lower Extremities Ultrasound 12/11/2023 3:47 PM EDT Narrative 12/11/2023 3:50 PM EDT [address] [address] Ultrasound Report Signed Patient: COLE BARTHOLOMEW MR#: [id number] : 1945 Acct:[id number] Age/Sex: 78 / M ADM Date: 12/11/23 Loc: US Attending Dr: Chris Jose M.D. Ordering Physician: Chris Jose M.D. Date of Service: 12/11/23 Procedure(s): US arterial duplex LE BI Accession Number(s): [id number] cc: Chris Jose M.D. [address] [address] Patient Name: COLE BARTHOLOMEW MRN: [id number] date: 1945 Sex: M Assigned Patient Location: US Current Patient Location: US Accession/Order Number: [id number] Exam Date: 12/11/2023 13:38 Report Date: 12/11/2023 15:47 At the request of: CHRIS JOSE Procedure: US arterial duplex LE BI EXAMINATION: US arterial duplex LE BI HISTORY: Peripheral Vascular Disease I73.9 COMPARISON: No relevant comparison available. TECHNIQUE: Color duplex Doppler ultrasound evaluation analysis was performed in the usual manner. FINDINGS: RIGHT LOWER EXTREMITY ARTERIAL Mild atherosclerotic plaque. Triphasic waveforms proximally. Biphasic waveforms popliteal and posterior tibial arteries External Iliac PSV: 95.1 cm/s External Iliac EDV: 0.0 cm/s Common Femoral PSV: 91.1 cm/s Common Femoral EDV: 0.0 cm/s Superficial Femoral Proximal PSV: 118.2 cm/s Proximal EDV: 0.0 cm/s Mid PSV: 94.9 cm/s Mid EDV: 0.0 cm/s Distal PSV: 157.4 cm/s Distal EDV: 0.0 cm/s Popliteal Proximal PSV: 92.5 cm/s Popliteal Proximal EDV: 0.0 cm/s Posterior Tibial Proximal PSV: 72.5 cm/s Proximal EDV: 6.3 cm/s Mid PSV: 56.4 cm/s Mid EDV: 6.3 cm/s Distal PSV: 64.7 cm/s Distal EDV: 0.0 cm/s Anterior Tibial Proximal PSV: 61.2 cm/s Proximal EDV: 0.0 cm/s Mid PSV: 96.7 cm/s Mid EDV: 0.0 cm/s Distal PSV: 95.1 cm/s Distal EDV: 7.9 cm/s LEFT LOWER EXTREMITY ARTERIAL Mild atherosclerotic plaque. Triphasic waveforms proximally. Biphasic waveform distal popliteal posterior tibial and anterior tibial arteries External Iliac PSV: 131.9 cm/s External Iliac EDV: 0.0 cm/s Common Femoral PSV: 155.5 cm/s Common Femoral EDV: 0.0 cm/s Superficial Femoral Proximal PSV: 115.9 cm/s Proximal EDV: 0.0 cm/s Mid PSV: 102.0 cm/s Mid EDV: 0.0 cm/s Distal PSV: 113.6 cm/s Distal EDV: 0.0 cm/s Popliteal Proximal PSV: Popliteal Proximal EDV: Posterior Tibial Proximal PSV: 35.7 cm/s Proximal EDV: 0.0 cm/s Mid PSV: 21.7 cm/s Mid EDV: 0.0 cm/s Distal PSV: 37.4 cm/s Distal EDV: Anterior Tibial Proximal PSV: 78.6 cm/s Proximal EDV: 0.0 cm/s Mid PSV: 74.7 cm/s Mid EDV: 0.0 cm/s Distal PSV: 127.9 cm/s Distal EDV: 9.7 cm/s US/US arterial duplex LE BI IMPRESSION: Wave forms suggest mild distal peripheral arterial disease Electronically authenticated by: RAJENDRA FRANCO Date: 12/11/2023 15:47 Dictated By: Rajendra Franco M.D. Signed By: 12/11/23 1550 DD/ 1547 TD/TT: High Speed Printer Operator: Procedure Note Radiology, Radiologist, MD - 12/11/2023 [place] [address] Ultrasound Report Signed Patient: COLE BARTHOLOMEW AMR#: [id number] : 1945cct:[id number] Age/Sex: 78 / MADM Date: 12/11/23 Loc: US Attending Dr: Chris Jose M.D. Ordering Physician: Chris Jose M.D. Date of Service: 12/11/23 Procedure(s): US arterial duplex LE BI Accession Number(s): [id number] cc: Chris Jose M.D. [address] [place] [address] Patient Name: COLE BARTHOLOMEW MRN: [id number] date: 1945 Sex: M Assigned Patient Location: US Current Patient Location: US Accession/Order Number: [id number] Exam Date: 12/11/2023 13:38 Report Date: 12/11/2023 15:47 At the request of: CHRIS JOSE Procedure: US arterial duplex LE BI EXAMINATION: US arterial duplex LE BI HISTORY: Peripheral Vascular Disease I73.9 COMPARISON: No relevant comparison available. TECHNIQUE: Color duplex Doppler ultrasound evaluation analysis wasperformed in the usual manner. FINDINGS: RIGHT LOWER EXTREMITY ARTERIAL Mild atherosclerotic plaque. Triphasic waveforms proximally. Biphasic waveforms popliteal and posterior tibial arteries External Iliac PSV: 95.1 cm/s External Iliac EDV: 0.0 cm/s Common Femoral PSV: 91.1 cm/s Common Femoral EDV: 0.0 cm/s Superficial Femoral Proximal PSV: 118.2 cm/s Proximal EDV: 0.0 cm/s Mid PSV: 94.9 cm/s Mid EDV: 0.0 cm/s Distal PSV: 157.4 cm/s Distal EDV: 0.0 cm/s Popliteal Proximal PSV: 92.5 cm/s Popliteal Proximal EDV: 0.0 cm/s Posterior Tibial Proximal PSV: 72.5 cm/s Proximal EDV: 6.3 cm/s Mid PSV: 56.4 cm/s Mid EDV: 6.3 cm/s Distal PSV: 64.7 cm/s Distal EDV: 0.0 cm/s Anterior Tibial Proximal PSV: 61.2 cm/s Proximal EDV: 0.0 cm/s Mid PSV: 96.7 cm/s Mid EDV: 0.0 cm/s Distal PSV: 95.1 cm/s Distal EDV: 7.9 cm/s LEFT LOWER EXTREMITY ARTERIAL Mild atherosclerotic plaque. Triphasic waveforms proximally. Biphasicwaveform distal popliteal posterior tibial and anterior tibial arteries External Iliac PSV: 131.9 cm/s External Iliac EDV: 0.0 cm/s Common Femoral PSV: 155.5 cm/s Common Femoral EDV: 0.0 cm/s Superficial Femoral Proximal PSV: 115.9 cm/s Proximal EDV: 0.0 cm/s Mid PSV: 102.0 cm/s Mid EDV: 0.0 cm/s Distal PSV: 113.6 cm/s Distal EDV: 0.0 cm/s Popliteal Proximal PSV: Popliteal Proximal EDV: Posterior Tibial Proximal PSV: 35.7 cm/s Proximal EDV: 0.0 cm/s Mid PSV: 21.7 cm/s Mid EDV: 0.0 cm/s Distal PSV: 37.4 cm/s Distal EDV: Anterior Tibial Proximal PSV: 78.6 cm/s Proximal EDV: 0.0 cm/s Mid PSV: 74.7 cm/s Mid EDV: 0.0 cm/s Distal PSV: 127.9 cm/s Distal EDV: 9.7 cm/s US/US arterial duplex LE BI IMPRESSION: Wave forms suggest mild distal peripheral arterial disease Electronically authenticated by: RAJENDRA FRANCO Date: 12/11/2023 15:47 Dictated By: Rajendra Franco M.D. Signed By:12/11/23 1550 DD/ 1547 TD/TT: High Speed Printer Operator: us Chris Jose MD [facility] [place] PROCEDURES Final Result documented in this encounter Visit Diagnoses Not on filedocumented in this encounter Care Teams Mining Support Worker Relationship Specialty Start Date End Date Chris Jose MD [address] [place] [address] PCP - General Family Medicine 08/21/23 documented as of this encounter
--- OUTSIDE RECORDS SUMMARY | 2024-12-13 11:25 | XMS_ITS | Encounter Summary ---
Author Organization [facility] Address [id number] [address] [place] [address] Care Team Providers Care Transfer Operator Name Role Phone Idris Donnelly MD Primary Care Provider [phone] Reason for Visit * Reason Comments Med Refill Encounter Details Date Type Department Care Team ([facility] st Contact Info) Description 01/07/[address] [facility] [address] [facility] [place] [phone] Maia Cook, PA-C [address] [facility] [address] [place] [address] Chronic rhinitis Social History Tobacco Use Types Packs/Day Years Used Date Smoking Tobacco: Never Smokeless Tobacco: Never Alcohol Use Standard Drinks/Week Comments Yes 0 (1 standard drink = 0.6 oz pur e alcohol) Childcare Answer Date Recorded Childcare Unknown 12/12/2018 Employment Answer Date Recorded Employment Unknown 12/12/2018 Hunger Screening Answer Date Recorded Within the past 12 months we worried whether our food would run out before we got money to buy more. Never True 02/14/2023 Within the past 12 months th e food we bought just didn't last and we didn't have money to get more. Never True 02/14/2023 Purpose - Life Answer Date Recorded Purpose and direction in life Unknown Sex and Gender Information Value Date Recorded Sex Assigned at Not on file Legal Sex Male 11:21 AM EDT Gender Identity Not on file Sexual Orientation Not on file documented as of this encounter Plan of Treatment Not on file documented as of this encounter Visit Diagnoses Diagnosis Chronic rhinitis documented in this encounter Care Teams Transfer Operator Relationship Specialty Start Date End Date Idris Donnelly MD PCP - General 11/02/16 documented as of this encounter
--- OUTSIDE RECORDS SUMMARY | 2024-12-13 11:25 | XMS_ITS | Encounter Summary ---
Author Organization [facility] Address [address] [place] [address] Care Team Providers Care Upholstery Cutter Name Role Phone Idris Donnelly MD Primary Care Provider [phone] Encounter Details Date Type Department Care Team (Late st Contact Info) Description 12/22/2022 Abstract [facility] [address] [place] [address] Bolivar Blankenship, OLGA Social History Tobacco Use Types Packs/Day Years Used Date Smoking Tobacco: Never Tobacco Cessation:Counseling Given: Not Answered Alcohol Use Standard Drinks/Week Comments Yes 2 [...] Office Visit [facility] [address] [place] [address] Ernie Burch, PA [address] [place] [address] 01/02/2025 11:15 AM EDT Office Visit [facility] [address] [place] [address] Idris Donnelly MD [address] [place] [address] documented as of this encounter Visit Diagnoses Not on filedocumented in this encounter Care Teams Upholstery Cutter Relationship Specialty Start Date End Date Idris Donnelly MD [address] [place] [address] PCP - General Family Medicine 08/21/23 documented as of this encounter
--- OUTSIDE RECORDS SUMMARY | 2024-12-13 11:25 | XMS_ITS | Clinical Summary ---
Author Organization [facility] Address [address] [place] [address] Phone Care Team Providers Care Project Administrative Assistant Name Role Phone Unavailable Primary Care Provider Unavailabl e Social History Tobacco Use Types Packs/Day Years Used Date Smoking Tobacco: Never Assessed Sex and Gender Information Value Date Recorded Sex Assigned at Not on file Legal Sex Male 5:39 AM EST Gender Identity Not on file Sexual Orientation Not on file Plan of Treatment Health Maintenance Due Date Last Done Comments Lipid Panel 1945 Yearly Adult Physical 1945 DTaP/Tdap/Td Vaccines (1 - Tdap) 1965 Pneumococcal Vaccine (1 of 1 - PCV) 1993 Zoster Vaccines (1 of 2) 1993 RSV High Risk: (Elderly (60+ ) or Population) (1 - 1-dose 75+ series) 2018 COVID-19 Vaccine ( - 2023-2 5 season) 2024 Influenza Vaccine (Season Ended) 2025 HIB Vaccines Aged Out No longer eligi ble based on patient's age to complete this topic HPV Vaccines Aged Out No longer eligi ble based on patient's age to complete this topic Hepatitis A Vaccines Aged Out No long er eligible based on patient's age to complete this topic Hepatitis B Vaccines Aged Out No long er eligible based on patient's age to complete this topic IPV Vaccines Aged Out No longer eligi ble based on patient's age to complete this topic Meningococcal Vaccine Aged Out No mitch jerald eligible based on patient's age to complete this topic Rotavirus Vaccines Aged Out No longer eligible based on patient's age to complete this topic
--- OUTSIDE RECORDS SUMMARY | 2024-12-13 11:25 | XMS_ITS | Encounter Summary ---
Author Organization [facility] Address [id number] [address] [place] [address] Care Team Providers Care Assembler Liquid Center Name Role Phone Idris Donnelly MD Primary Care Provider [phone] Encounter Details Date Type Department Care Team (Late st Contact Info) Description 01/30/2017 [facility]ation [facility] [address] [place] [address] [place] [address] Malathi Schneider LPN Social History Tobacco Use Types Packs/Day Years Used Date Smoking Tobacco: Never Alcohol Use Standard Drinks/Week Comments Yes 0 (1 standard drink = 0.6 oz pur e alcohol) Sex and Gender Information Value Date Recorded Sex Assigned at Not on file Legal Sex Male 11:21 AM EDT Gender Identity Not on file Sexual Orientation Not on file documented as of this encounter Plan of Treatment Not on file documented as of this encounter Visit Diagnoses Not on filedocumented in this encounter Care Teams Assembler Liquid Center Relationship Specialty Start Date End Date Idris Donnelly MD PCP - General 11/02/16 documented as of this encounter
--- OUTSIDE RECORDS SUMMARY | 2024-12-13 11:25 | XMS_ITS | Encounter Summary ---
Author Organization [facility] Address [address] [place] [address] Care Team Providers Care Sales Product Specialist Name Role Phone Idris Donnelly MD Primary Care Provider [phone] Encounter Details Date Type Department Care Team (Late st Contact Info) Description 10/30/2023 Clinisync Result Encounter [facility] External Department Unsolicited Provider, Generic External Data Social History Tobacco Use Types Packs/Day Years [...] EDT Office Visit [facility] [address] [place] [address] Ernie Burch, PA [address] [place] [address] 01/02/2025 11:15 AM EDT Office Visit [facility] [address] [place] [address] Idris Donnelly MD [address] [place] [address] documented as of this encounter Procedures Procedure Name Priority Date/Time Associated Diagnosis Comments NM DIONISIO PERF SPECT REST STR 10/30/2023 2:06 PM EDT documented in this encounter Results * NM DIONISIO PERF SPECT REST STR (10/30/2023 2:06 PM EDT) Anatomical Region Laterality Modality Other 10/30/2023 2:06 PM EDT Narrative 10/30/2023 2:07 [place] [address] Nuclear Medicine Report Signed Patient: COLE BARTHOLOMEW MR#: [id number] : 1945 Acct:[id number] Age/Sex: 78 / M ADM Date: 10/30/23 Loc: [place] Attending Dr: Ish Stover M.D. Ordering Physician: Ish Stover M.D. Date of Service: 10/30/23 Procedure(s): NM dionisio perf SPECT rest str Accession Number(s): [id number] cc: Ish Stover M.D.; Idris Donnelly M.D. Patient Name: COLE BARTHOLOMEW MR#: [id number] : 1945 Exam Date: 10/30/2023 Ordering Doctor: DR ISH STOVER M.D. RADIOLOGY REPORT PROCEDURE: NM DIONISIO PERF SPECT REST STR COMPARISON: None. INDICATIONS: CHEST PAIN, SOB, ENCOUNTER FOR OTHER PREPROCEDURAL TECHNIQUE: Exam Description: Stress/Rest one day protocol gated SPECT Rest Imagin.0 mCi Tc-99m Cardiolite IV on 10/30/2023 Stress Imaging 29.9 mCi Tc-99m Cardiolite IV on 10/30/2023 Exercise Protocol: 0.4 mg Lexiscan given IV Heart Rate (bpm): Rest: 61 Max: 85 PMHR: 60 Blood Pressure: Rest: 162/82 Max: 168/76 Symptoms: Rest and peak stress ECG findings were pending and the exercise portion of the study was pending per attending physician Dr. MONGE . For more details please see separate cardiac stress test report. FINDINGS: QUALITY OF STUDY: Excellent. PERFUSION DEFECT: None. LOCATION: N/A SIZE: N/A. SEVERITY: N/A. TYPE: N/A. WALL MOTION: Normal. LV SIZE: Normal. 81 mL. TID / TCD: None; 0.9 LVEF: Normal. Calculated EF 74%. SUMMARY: Myocardial perfusion imaging study is NORMAL. CONCLUSION: 1. Normal nuclear medicine myocardial perfusion scan. Dictated by: Ronan Mackenzie M.D. on 10/30/2023 at 14:05 Approved by: Ronan Mackenzie M.D. on 10/30/2023 at 14:06 Dictated By: Ronan Mackenzie M.D. Signed By: 10/30/23 1407 DD/ 1406 TD/TT: Specimen Transporter: Procedure Note Radiology, Radiologist, MD - 10/30/2023 [place] [address] Nuclear Medicine Report Signed Patient: COLE BARTHOLOMEW AMR#: [id number] : 1945cct:[id number] Age/Sex: 78 / MADM Date: 10/30/23 Loc: [place] Attending Dr: Ish Stover M.D. Ordering Physician: Ish Stover M.D. Date of Service: 10/30/23 Procedure(s): NM dionisio perf SPECT rest str Accession Number(s): [id number] cc: Ish Stover M.D.; Idris Donnelly M.D. Patient Name: COLE BARTHOLOMEW MR#: [id number] : 1945 Exam Date: 10/30/2023 Ordering Doctor: DR ISH STOVER M.D. RADIOLOGY REPORT PROCEDURE: NM DIONISIO PERF SPECT REST STR COMPARISON: None. INDICATIONS: CHEST PAIN, SOB, ENCOUNTER FOR OTHER PREPROCEDURAL TECHNIQUE: Exam Description: Stress/Rest one day protocol gated SPECT Rest Imagin.0 mCi Tc-99m Cardiolite IV on 10/30/2023 Stress Imaging 29.9 mCi Tc-99m Cardiolite IV on 10/30/2023 Exercise Protocol: 0.4 mg Lexiscan given IV Heart Rate (bpm): Rest: 61 Max: 85 PMHR: 60 Blood Pressure: Rest: 162/82 Max: 168/76 Symptoms: Rest and peak stress ECG findings were pending and the exercise portion ofthe study was pending per attending physician Dr. MONGE . For more detailsplease see separate cardiac stress test report. FINDINGS: QUALITY OF STUDY: Excellent. PERFUSION DEFECT: None. LOCATION: N/A SIZE: N/A. SEVERITY: N/A. TYPE: N/A. WALL MOTION: Normal. LV SIZE: Normal. 81 mL. TID / TCD: None; 0.9 LVEF: Normal. Calculated EF 74%. SUMMARY: Myocardial perfusion imaging study is NORMAL. CONCLUSION: 1. Normal nuclear medicine myocardial perfusion scan. Dictated by: Ronan Mackenzie M.D. on 10/30/2023 at 14:05 Approved by: Ronan Mackenzie M.D. on 10/30/2023 at 14:06 Dictated By: Ronan Mackenzie M.D. Signed By:10/30/23 1407 DD/ 1406 TD/TT: Specimen Transporter: Generic External Data Provider [facility] Final Result documented in this encounter Visit Diagnoses Not on filedocumented in this encounter Care Teams Sales Product Specialist Relationship Specialty Start Date End Date Idris Donnelly MD [address] [place] [address] PCP - General Family Medicine 08/21/23 documented as of this encounter
--- OUTSIDE RECORDS SUMMARY | 2024-12-13 11:25 | XMS_ITS | Encounter Summary ---
Author Organization [facility] Address [address] [place] [address] Care Team Providers Care Mobile Web Application Developer Name Role Phone Idris Donnelly MD Primary Care Provider [phone] Reason for Visit * Reason Onset Date Comments Med Refill 12/03/2024 Encounter Details Date Type Department Care Team (Late st Contact Info) Description 12/03[facility] [address] [place] [address] Idris Donnelly MD [address] [place] [address] Spinal stenosis, cervical region Social History Tobacco Use Types Packs/Day Years [...] Office Visit [facility] [address] [place] [phone] Ernie Burch, REUBEN [address] [place], [place] [address] 01/02/2025 11:15 AM EDT Office Visit [facility] [address] [place] [address] Idris Donnelly MD [address] [place] [address] documented as of this encounter Visit Diagnoses Diagnosis Spinal stenosis, cervical region documented in this encounter Care Teams Mobile Web Application Developer Relationship Specialty Start Date End Date Idris Donnelly MD [address] [place] [address] PCP - General Family Medicine 08/21/23 documented as of this encounter
--- OUTSIDE RECORDS SUMMARY | 2024-12-13 11:25 | XMS_ITS | Encounter Summary ---
Author Organization [facility] Address [address] [place] [address] Care Team Providers Care Gasket Maker Name Role Phone Idris Donnelly MD Primary Care Provider [phone] Encounter Details Date Type Department Care Team (Late st Contact Info) Description 12/12/2023 Orders Only [facility] [address] [place] [address] Idris Donnelly MD [address] [place] [address] Social History Tobacco Use Types Packs/Day Years [...] Office Visit [facility] [address] [place] [address] Ernie Burch PA [address] [place] [address] 01/02/2025 11:15 AM EDT Office Visit [facility] [address] [place] [address] Idris Donnelly MD [address] [place] [address] documented as of this encounter Procedures Procedure Name Priority Date/Time Associated Diagnosis Comments US ARTERIAL DUPLEX BILATERAL Routine 12/12/2023 11:40 AM EDT documented in this encounter Results * US ARTERIAL DUPLEX BILATERAL (12/12/2023 11:40 AM EDT) Anatomical Region Laterality Modality Radiographic Emy ging Idris Donnelly MD IMG XR PROCEDURES Final Result documented in this encounter Visit Diagnoses Not on filedocumented in this encounter Care Teams Gasket Maker Relationship Specialty Start Date End Date Idris Donnelly MD [address] [place] [address] PCP - General Family Medicine 08/21/23 documented as of this encounter
--- OUTSIDE RECORDS SUMMARY | 2024-12-13 11:25 | XMS_ITS | Encounter Summary ---
Author Organization [facility] Address [id number] [address] [place] [address] Care Team Providers Care Test Borer Helper Name Role Phone Idris Donnelly MD Primary Care Provider Reason for Visit * Reason Comments Med Refill Encounter Details Date Type Department Care Team ([facility] st Contact Info) Description 08/08/2023 [facility] [address] [facility] [place] [phone] Maia Cook, PA-C [address] [facility] [address] [place] [address] Chronic rhinitis Social History Tobacco [...] encounter Miscellaneous Notes * Telephone Encounter - Meka BENJAMÍN Chávez - 08/08/2023 12:24 PM EST Left a message for patient to inform him that we need to set up an appointment for him since it hasbeen a year since he was seen so we can refill his medications, asked to give the office a call back to schedule. * Telephone Encounter - Meka BENJAMÍN Chávez - 08/08/2023 12:24 PM EST Left a second message for the patient to inform him that we have a medication refill request, askedto give the office a call back as he does need an appointment since it has been over a year since he was seen last. documented in this encounter Plan of Treatment Not on file documented as of this encounter Visit Diagnoses Diagnosis Chronic rhinitis documented in this encounter Care Teams Test Borer Helper Relationship Specialty Start Date End Date Idris Donnelly MD PCP - General 11/02/16 documented as of this encounter
--- OUTSIDE RECORDS SUMMARY | 2024-12-13 11:25 | XMS_ITS | Encounter Summary ---
Author Organization [facility] Address [address] [place] [address] Care Team Providers Care Dragline Operator Name Role Phone Idris Donnelly MD Primary Care Provider Reason for Visit * Reason Comments Med Refill Encounter Details Date Type Department Care Team (Late Contact Info) Description 08/08/2023 Refill [facility] [address] [place] [address] Idris Donnelly MD [address] [place] [address] Spinal stenosis, cervical region Social History Tobacco Use Types Packs/Day Years Used Date Smoking Tobacco: Never Alcohol Use Standard Drinks/Week Comments Yes 2 [...] Visit [facility] [address] [place] [address] Ernie Burch, PA [address] [place] [address] 01/02/2025 11:15 AM EDT Office Visit [facility] [address] [place] [address] Idris Donnelly MD [address] [place] [address] documented as of this encounter Visit Diagnoses Diagnosis Spinal stenosis, cervical region documented in this encounter Care Teams Dragline Operator Relationship Specialty Start Date End Date Idris Donnelly MD [address] [place] [address] PCP - General Family Medicine 08/21/23 documented as of this encounter
--- OUTSIDE RECORDS SUMMARY | 2024-12-13 11:25 | XMS_ITS | Encounter Summary ---
Author Organization [facility] Address [address] [place] [address] Care Team Providers Care Professional Nursing Assistant Name Role Phone Idris Donnelly MD Primary Care Provider [phone] Encounter Details Date Type Department Care Team (Late st Contact Info) Description 03/25/2024 Orders Only [facility] [address] [place] [address] Jacky Jerome MD [address] [place] [address] Social History Tobacco Use Types Packs/Day Years [...] on file documented as of this encounter Functional Status * Over the past 2 weeks, how often have you been bothered by any of the following problems? Question Answer Date of Assessment Author Little interest or pleasure in doing things Not at all 03/28/2024 2:04 PM EDT Jodee Fernandes M A Feeling down, depressed, or hopeless Not at all 03/28/2024 2:04 PM EDT Jodee Fernandes M A Patient Health Questionnaire -2 Score 0 03/28/2024 2:04 PM EDT Fernandes, Saebel, M A documented as of this encounter Plan of Treatment Upcoming Encounters Date Type Department Care Team (Late st Contact Info) Description 01/01/2025 1:00 PM EDT Office Visit [facility] [address] [place] [phone] Ernie Burch PA [address] [facility] [place] [address] 01/02/2025 11:15 AM EDT Office Visit [facility] [address] [place] [phone] Idris Donnelly MD [address] [place] [address] documented as of this encounter Procedures Procedure Name Priority Date/Time Associated Diagnosis Comments XR TIBIA FIBULA 2 VIEWS RIGHT Routine 03/25/2024 9:41 AM EDT documented in this encounter Results * XR tibia fibula 2 views right (03/25/2024 9:41 AM EDT) Anatomical Region Laterality Modality Lower Extremities, Lower Leg Right Rad iographic Imaging us Jacky Jerome MD IMG XR PROCEDURES Final Resul t documented in this encounter Visit Diagnoses Not on filedocumented in this encounter Care Teams Professional Nursing Assistant Relationship Specialty Start Date End Date Idris Donnelly MD [address] [place] [address] PCP - General Family Medicine 08/21/23 documented as of this encounter
--- OUTSIDE RECORDS SUMMARY | 2024-12-13 11:25 | XMS_ITS ---
Author Organization [facility] Address [id number] [address] [place] [address] Care Team Providers Care Group President Name Role Phone Idris Donnelly MD Primary Care Provider [phone] Active Problems Problem Noted Date Diagnosed Date [...] 11/30/2022 Overview (04/19/2024): Last Assessment & Plan: [facility] III- SOB with ADLs, minimal exertion. + [...] Last Assessment & Plan: F/U with nephrology Current Treatment and Therapy Plans No current plan information found. Past Treatment and Therapy Plans
--- OUTSIDE RECORDS SUMMARY | 2024-12-13 11:26 | XMS_ITS | Encounter Summary ---
Author Organization [facility] Address [address] [place] [address] Care Team Providers Care Rehab Services Aide Name Role Phone Idris Donnelly MD Primary Care Provider [phone] Encounter Details Date Type Department Care Team (Late st Contact Info) Description 04/24/2024 Clinisync Result Encounter [facility] External Department Unsolicited [...] Office Visit [facility] [address] [place] [address] Ernie Burch, PA [address] [place] [address] 01/02/2025 11:15 AM EDT Office Visit [facility] [address] [place] [phone] Idris Donnelly MD [address] [place] [address] documented as of this encounter Procedures Procedure Name Priority Date/Time Associated Diagnosis Comments CA ECHO DOPPLER COMPLETE 04/24/2024 7:15 PM EDT documented in this encounter Results * CA ECHO DOPPLER COMPLETE (04/24/2024 7:15 PM EDT) Anatomical Region Laterality Modality Other 04/24/2024 7:15 PM EDT Narrative 04/24/2024 7:16 [place] [address] Cardiology Report Signed Patient: COLE BARTHOLOMEW MR#: [id number] : 1945 Acct:[id number] Age/Sex: 78 / M ADM Date: 04/24/24 Loc: CARD Attending Dr: Ish Stover M.D. Ordering Physician: Ish Stover M.D. Date of Service: 04/24/24 Procedure(s): CA echo doppler complete Accession Number(s): [id number] cc: Ish Stover M.D.; Idris Donnelly M.D. Patient Name: COLE BARTHOLOMEW MR#: [id number] : 1945 Exam Date: 04/24/2024 Ordering Doctor: DR ISH STOVER M.D. ECHOCARDIOGRAM REPORT PROCEDURE: CA ECHO DOPPLER COMPLETE INDICATIONS: Aortic valve stenosis - aortic valve replacement, pacemaker, hypertension, diabetes COMPARISON: None. DESCRIPTION: COMPLETE ECHOCARDIOGRAM Real-time transthoracic echocardiography with 2D, M-mode, spectral and color flow Doppler performed. QUALITY: Technical quality was good. LEFT VENTRICLE: Normal chamber size. Normal left ventricular wall thickness. Normal systolic function. LV EF: Normal left ventricular ejection fraction, (55-60%). DIASTOLIC: Grade II diastolic dysfunction. ATRIAL SEPTUM: Visually appears intact. LEFT ATRIUM: Mild dilatation. RIGHT ATRIUM: Moderate dilatation. RIGHT VENTRICLE: Mild chamber dilatation. Normal right ventricular systolic function. Pacer wire present. TRICUSPID VALVE: Normal mobility and thickness. No stenosis with mild regurgitation. Doppler studies reveal moderately (45-60) elevated right sided pressures. RVSP 55 mmHg MITRAL VALVE: Normal mobility and thickness. Mild mitral regurgitation. AORTIC VALVE: Bio-Prosthetic valve appears well seated in the aortic position with abnormal doppler flow. Mean gradient 12 mmHg. DVI 0.3. No aortic regurgitation. AORTIC ROOT: Normal diameter and appearance. PULMONIC VALVE: Normal thickness and mobility. No stenosis. Trivial regurgitation. PERICARDIUM: No evidence of pericardial effusion. IVC: IVC is dilated (2.3 cm) with no collapse. PLEURA: CONCLUSION: 1. Normal left ventricular size and systolic function. LVEF is 55-60%. 2. Mildly dilated right ventricle with normal systolic function. 3. Grade II diastolic dysfunction. 4. Bioprosthetic aortic valve with normal Doppler flows and no regurgitation. 5. Mild mitral and tricuspid regurgitation. 6. Moderately elevated right sided pressures. RVSP is 55 mmHg. Adult Echocardiography Procedure Report Left Ventricle LVEDD (3.7 - 5.6 cm): 4.13 cm LVESD (2.2 - 4.0 cm): 2.96 cm LVIVS thickness (0.6 - 1.2 cm): 0.95 cm LVPW thickness (0.5 - 1.0 cm): 0.80 cm e': 0.07 m/s E - e': 12.19 LVOT Max Gradient: 2.44 mm[Hg] LVOT Area (cm2): 0.78 m/s Peak Velocity (LVOT): 0.78 m/s Mean Velocity (LVOT): 0.53 m/s LVOT Diameter 1.80 cm Left Atrium LA Volume Index (2D A2C): 32.63 ml/m2 Left Atrium Systolic Dimension: 4.08 cm Mitral Valve MV E to A Ratio: 0.92 Mitral Valve A-Wave Peak Velocity: 0.94 m/s Mitral Valve E-Wave Peak Velocity: 0.86 m/s Right Ventricle Aorta AO Root Diam: 2.93 cm Aortic Valve AoV Area (Peak Jerardo): 0.79 cm2, 0.79 cm2 AoV Area (VTI): 0.96 cm2, 0.96 cm2 Peak Velocity(Antegrade Flow): 2.51 m/s Peak Gradient(Antegrade Flow): 25.22 mm[Hg] Mean Velocity(Antegrade Flow): 1.59 m/s Mean Gradient(Antegrade Flow): 12.25 mm[Hg] Velocity Time Integral: 58.22 cm Tricuspid Valve Peak Velocity (Regurgitant Flow): 2.62 m/s, 3.17 m/s Pulmonic Valve Mean Gradient: 3.83 mm[Hg] Mean Velocity: 0.91 m/s Peak Velocity: 1.36 m/s, 1.32 m/s Peak Gradient: 7.01 mm[Hg], 7.35 mm[Hg] Right Atrium Right Atrium Systolic Pressure: 63.28 ml, 63.28 ml Dictated by: Dedrick Boyd M.D. on 04/24/2024 at 19:05 Approved by: Dedrick Boyd M.D. on 04/24/2024 at 19:15 Dictated By: DEDRICK BOYD Signed By: 04/24/241915 DD/ 14 TD/TT: Director Account Management: Procedure Note Radiology, Radiologist, MD - 04/24/2024 [place] [address] Cardiology Report Signed Patient: COLE BARTHOLOMEW AMR#: [id number] : 1945cct:[id number] Age/Sex: 78 / MADM Date: 04/24/24 Loc: CARD Attending Dr: Ish Stover M.D. Ordering Physician: Ish Stover M.D. Date of Service: 04/24/24 Procedure(s): CA echo doppler complete Accession Number(s): [id number] cc: Ish Stover M.D.; Idris Donnelly M.D. Patient Name: COLE BARTHOLOMEW MR#: [id number] : 1945 Exam Date: 04/24/2024 Ordering Doctor: DR ISH STOVER M.D. ECHOCARDIOGRAM REPORT PROCEDURE: CA ECHO DOPPLER COMPLETE INDICATIONS: Aortic valve stenosis - aortic valve replacement,pacemaker, hypertension, diabetes COMPARISON: None. DESCRIPTION: COMPLETE ECHOCARDIOGRAM Real-time transthoracic echocardiography with 2D, M-mode, spectral and color flow Dopplerperformed. QUALITY: Technical quality was good. LEFT VENTRICLE: Normal chamber size. Normal left ventricular wall thickness. Normal systolic function. LV EF: Normal left ventricular ejection fraction, (55-60%). DIASTOLIC: Grade II diastolic dysfunction. ATRIAL SEPTUM: Visually appears intact. LEFT ATRIUM: Mild dilatation. RIGHT ATRIUM: Moderate dilatation. RIGHT VENTRICLE: Mild chamber dilatation. Normal right ventricular systolic function. Pacer wire present. TRICUSPID VALVE: Normal mobility and thickness. No stenosis with mild regurgitation. Doppler studies reveal moderately (45-60) elevated rightsided pressures. RVSP 55 mmHg MITRAL VALVE: Normal mobility and thickness. Mild mitralregurgitation. AORTIC VALVE: Bio-Prosthetic valve appears well seated in the aortic position with abnormal doppler flow. Mean gradient 12 mmHg. DVI 0.3. Noaortic regurgitation. AORTIC ROOT: Normal diameter and appearance. PULMONIC VALVE: Normal thickness and mobility. No stenosis. Trivial regurgitation. PERICARDIUM: No evidence of pericardial effusion. IVC: IVC is dilated (2.3 cm) with no collapse. PLEURA: CONCLUSION: 1. Normal left ventricular size and systolic function. LVEF is 55-60%. 2. Mildly dilated right ventricle with normal systolic function. 3. Grade II diastolic dysfunction. 4. Bioprosthetic aortic valve with normal Doppler flows and noregurgitation. 5. Mild mitral and tricuspid regurgitation. 6. Moderately elevated right sided pressures. RVSP is 55 mmHg. Adult Echocardiography Procedure Report Left Ventricle LVEDD (3.7 - 5.6 cm): 4.13 cm LVESD (2.2 - 4.0 cm): 2.96 cm LVIVS thickness (0.6 - 1.2 cm): 0.95 cm LVPW thickness (0.5 - 1.0 cm): 0.80 cm e': 0.07 m/s E - e': 12.19 LVOT Max Gradient: 2.44 mm[Hg] LVOT Area (cm2): 0.78 m/s Peak Velocity (LVOT): 0.78 m/s Mean Velocity (LVOT): 0.53 m/s LVOT Diameter 1.80 cm Left Atrium LA Volume Index (2D A2C): 32.63 ml/m2 Left Atrium Systolic Dimension: 4.08 cm Mitral Valve MV E to A Ratio: 0.92 Mitral Valve A-Wave Peak Velocity: 0.94 m/s Mitral Valve E-Wave Peak Velocity: 0.86 m/s Right Ventricle Aorta AO Root Diam: 2.93 cm Aortic Valve AoV Area (Peak Jerardo): 0.79 cm2, 0.79 cm2 AoV Area (VTI): 0.96 cm2, 0.96 cm2 Peak Velocity(Antegrade Flow): 2.51 m/s Peak Gradient(Antegrade Flow): 25.22 mm[Hg] Mean Velocity(Antegrade Flow): 1.59 m/s Mean Gradient(Antegrade Flow): 12.25 mm[Hg] Velocity Time Integral: 58.22 cm Tricuspid Valve Peak Velocity (Regurgitant Flow): 2.62 m/s, 3.17 m/s Pulmonic Valve Mean Gradient: 3.83 mm[Hg] Mean Velocity: 0.91 m/s Peak Velocity: 1.36 m/s, 1.32 m/s Peak Gradient: 7.01 mm[Hg], 7.35 mm[Hg] Right Atrium Right Atrium Systolic Pressure: 63.28 ml, 63.28 ml Dictated by: Dedrick Boyd M.D. on 04/24/2024 at 19:05 Approved by: Dedrick Boyd M.D. on 04/24/2024 at 19:15 Dictated By: DEDRICK BOYD Signed By:04/24/241915 DD/ 14 TD/TT: Director Account Management: Generic External Data Provider [facility] Final Result documented in this encounter Visit Diagnoses Not on filedocumented in this encounter Care Teams Rehab Services Aide Relationship Specialty Start Date End Date Idris Donnelly MD [address] [facility] [place] [address] PCP - General Family Medicine 08/21/23 documented as of this encounter
--- OUTSIDE RECORDS SUMMARY | 2024-12-13 11:26 | XMS_ITS | Encounter Summary ---
Author Organization [facility] tem Address [id number] [address] [place] [address] Care Team Providers Care Tool Grinder Name Role Phone Idris Donnelly MD Primary Care Provider [phone] Encounter Details Date Type Department Care Team ([facility] st Contact Info) Description 11/01/2022 Orders Only [facility] - ENT [address] [facility] [place] [phone] Maia Cook, PA-C [address] [facility] [address] [place], [place] [phone] Chronic rhinitis Social History Tobacco Use Types Packs/Day Years Used Date Smoking Tobacco: Never Smokeless Tobacco: Never Alcohol Use Standard Drinks/Week Comments Yes 0 (1 standard drink = 0.6 oz pur e alcohol) Childcare Answer Date Recorded Childcare Unknown 12/12/2018 Employment Answer Date Recorded Employment Unknown 12/12/2018 Purpose - Life Answer Date Recorded Purpose [...] rhinitis documented in this encounter Care Teams Tool Grinder Relationship Specialty Start Date End Date Idris Donnelly MD PCP - General 11/02/16 documented as of this encounter
[2024-12-13 11:50] LABS: Hematocrit 39.2 % (42.0-54.0); Hemoglobin 12.8 g/dL (14.0-18.0); Mean Corpuscular HGB Conc 32.7 g/dL (29.9-35.2); Mean Platelet Volume 10.4 fL (9.5-13.5); Platelet Count 190 10^3/uL (150-450); Red Blood Count 4.26 10^6/uL (4.70-6.10); Red Cell Distribution Width 14.4 % (11.0-15.0); White Blood Count 6.1 10^3/uL (4.0-11.0)
[2024-12-13 11:56] LABS: Bilirubin Urine NEGATIVE (NEGATIVE); Blood Urine NEGATIVE (NEGATIVE); Clarity Urine CLEAR (CLEAR); Color Urine LT. YELLOW (YELLOW); Glucose Urine UA NEGATIVE (NEGATIVE); Ketones Urine NEGATIVE (NEGATIVE); Leukocyte Esterase Urine NEGATIVE (NEGATIVE); Nitrite Urine NEGATIVE (NEGATIVE); Protein Urine NEGATIVE (NEG/TRACE); Urobilinogen Urine 0.2 EU/dL (0.2-1.0)
[2024-12-13 12:05] LABS: Bacteria Urine NONE SEEN #/HPF (NONE SEEN); Cast Seen? NONE SEEN #/LPF (NONE SEEN); Crystals Seen? None Seen #/HPF (None Seen); Mucus Urine NONE SEEN (NONE SEEN); Squamous Epithelial Cell Urine NONE SEEN #/LPF (NONE/RARE); WBC Urine NONE SEEN #/HPF (NONE SEEN)
[2024-12-13 12:06] LABS: RBC Urine NONE SEEN #/HPF (0-2)
[2024-12-13 12:25] LABS: Albumin Level 3.5 g/dL (3.4-5.0); Anion Gap 11.7; BUN Creatinine Ratio 17.9; Calcium 9.2 mg/dL (8.5-10.1); Carbon Dioxide 31.4 mmol/L (21.0-32.0); Chloride 103 mmol/L (98-107); Estimated GFR (African America 50 (>=60 mL/min/1.73m^2); Estimated GFR (Non-African Ame 41 (>=60 mL/min/1.73m^2); Glucose 120 mg/dL (74-106); Magnesium 1.8 mg/dL (1.8-2.4); Phosphorus 3.7 mg/dL (2.6-4.7); Potassium 4.1 mmol/L (3.5-5.1); Sodium 142 mmol/L (136-145); Uric Acid 8.8 mg/dL (3.5-7.2)
[2024-12-13 14:32] LABS: Creatinine Urine Random 18.49 mg/dL (20.00-300.00); Microalbumin Urine Random <1.3 mg/dL (<=30.0)
== END 2024-12-13 11:23 | disposition home or self-care (01) ==
LOC: LAB 11:22
PROVIDERS: PCP Family Medicine; Visit Provider Internal Medicine
DX: N18.32 Chronic kidney disease, stage 3b (principal)
CPT/HCPCS: 36415; 80048; 81001; 82042; 82043; 82570; 83735; 84100; 84550; 85027

== ENCOUNTER 2025-01-04 15:47 | Emergency (ER) | payer MEDICARE, OTHER, SELFPAY ==
--- OUTSIDE RECORDS SUMMARY | 2024-11-11 10:00 | XMS_ITS ---
Author Organization The [facility] in [place] Address [address] [place] [address] Care Team Providers Care Substance Abuse Specialist Name Role Phone Idris Donnelly MD Primary Care Provider Unavailab Rashawn Benz Unavailable [phone] REASON FOR VISIT 6 month ov Encounters Encounter Location Date Provider Diagnosis [facility] [place] [address] [place] [address] 11/11/2024 Rashawn Becerra Plan Of Treatment Next Appt Details Provider Name:Rashawn Becerra, 06/09/2025 03:00:00 PM, [address] [place], [address], Progress Notes * Cole BARTHOLOMEW ADOB:[birth year] (79 yo M)Acc No.[id number]:11/11/2024 UNLOCKED PROGRESS NOTE Progress Note Patient: Cole VICENTE Provider: Victor Hugo Becerra MD :1945 A ge:79 Y S ex:Male Date:11/11/2024 Address:[facility] [address], [id number] Pcp:Idris Donnelly MD Subjective: * Chief Complaints: * 1 . 6 month ov. * Medical History: Objective: * Vitals: Assessment: Plan: * Treatment: * * Electronic signature of Rashawn Becerra MD, [id number] on 01/04/2025 at 03:53 PM EDT Sign off status: Pending Visit Status: R /S (Rescheduled) * Provider: Victor Hugo Becerra MD Date: 0 11/11/2024 Generated for Sadi brewer/Vera/Julio on: 0 01/04/2025 03:53 PM EDT
--- OUTSIDE RECORDS SUMMARY | 2025-01-02 11:15 | XMS_ITS | Encounter Summary ---
Author Organization [facility] Address [address] [place] [address] Care Team Providers Care Latent Print Examiner Name Role Phone Idris Donnelly MD Primary Care Provider [phone] Reason for Visit * Reason Comments Follow-up Encounter Details Date Type Department Care Team (Late st Contact Info) Description 01/02/2025 11:15 AM EDT Office Visit [facility] [address] [place] [address] Idris Donnelly MD [address] [place] [address] Type 2 diabetes mellitus with hyperglycemia, without long-term current use of insulin (HCC) (Primary Dx); Essential hypertension, benign ; Diabetic polyneuropathy associated with type 2 diabetes mellitus (HCC); Chronic heart failure with preserved ejection fraction (HFpEF) (HCC); Paroxysmal atrial fibrillation (HCC); Peripheral vascular disease, unspecified Social History Tobacco Use Types Packs/Day Years [...] on file documented as of this encounter Last Filed Vital Signs Vital Sign Reading Time Taken Comments Blood Pressure 148/86 01/02/2025 11:21 AM EDT Pulse 99 01/02/2025 11:21 AM EDT Temperature 36.4 C (97.5 F) 01/02/2025 11:21 AM EDT Respiratory Rate 18 01/02/2025 11:21 AM EDT Oxygen Saturation 97% 01/02/2025 11:21 AM EDT Inhaled Oxygen Concentration - - Weight 85.3 kg (188 lb) 01/02/2025 11:21 AM EDT Height 175.3 cm (5' 9 ) 01/02/2025 11:21 AM EDT Body Mass Index 27.76 01/02/2025 11:21 AM EDT documented in this encounter Progress Notes * Idris Donnelly MD - 01/02/2025 11:42 AM EDTAssociated Problem(s): Type 2 diabetes mellitus with hyperglycemia, without long-term current use of insulin (HCC) Not checking BS and due for A1C. Stick to ADA diet and limit carbs. * Idris Donnelly MD - 01/02/2025 11:42 AM EDTAssociated Problem(s): Peripheral vascular disease, unspecified Symptoms stable and continue medication. * Idris Donnelly MD - 01/02/2025 11:42 AM EDTAssociated Problem(s): Paroxysmal atrial fibrillation (HCC) In NSR and monitor. Follow up with cardiology as scheduled. * Idris Donnelly MD - 01/02/2025 11:41 AM EDTAssociated Problem(s): Essential hypertension, benign BP controlled and monitor PRN. * Idris Donnelly MD - 01/02/2025 11:41 AM EDTAssociated Problem(s): Diabetic polyneuropathy (HCC) Pain stable and continue neurontin. * Idris Donnelly MD - 01/02/2025 11:41 AM EDTAssociated Problem(s): Chronic heart failure with preserved ejection fraction (HFpEF) ([facility]) Edema stable and continue medication. Elevate legs PRN. Follow up with cardiology as scheduled. * Idris Donnelly MD - 01/02/2025 11:15 AM EDT Images from the original note were not included. Subjective Patient ID: Cole Bartholomew is a 79 y.o. male who presents for Follow-up. Follow up DM, HTN, neuropathy, CHF, and afib. Not checking BS away from office and due for A1C. Tries to eat well and stick to ADA diet. Denies signs of elevated BS such as polyuria, polyphagia or polydipsia. Checking BP PRN and typically controlled. BP normal today. Taking medication daily and tolerating without side effects. Neuropathy stable. Mild pain and burning in feet. Symptoms worse with increased walking and standing. Using neurontin and pain tolerable. Edema controlled with medication. Mild swelling at end of day and if on feet a lot. Edema improved in am and with elevation. Afib stable. No palpitations or heart racing. Not lightheaded or dizzy. PVD stable and no pain or discomfort in legs with walking. Review of Systems Constitutional: Negative for fatigue. [...] Assessment/Plan Problem List Items Addressed This Visit Essential hypertension, benign BP controlled and monitor PRN. Peripheral vascular disease, unspecified Symptoms stable and continue medication. Type 2 diabetes mellitus with hyperglycemia, without long-term current use of insulin (HCC) - Primary Not checking BS and due for A1C. Stick to ADA diet and limit carbs. Relevant Orders Hemoglobin A1c Diabetic polyneuropathy (HCC) Pain stable and continue neurontin. Chronic heart failure with preserved ejection fraction (HFpEF) (HCC) Edema stable and continue medication. Elevate legs PRN. Follow up with cardiology as scheduled. Paroxysmal atrial fibrillation (HCC) In NSR and monitor. Follow up with cardiology as scheduled. documented in this encounter Plan of Treatment Upcoming Encounters Date Type Department Care Team (Late st Contact Info) Description 07/07/2025 2:00 PM EST Office Visit [facility] [address] [place] [address] Idris Donnelly MD [address] [place] [address] Scheduled Orders Name Type Priority Associated Diagnoses Orde r Schedule Hemoglobin A1c Lab Routine Type 2 diabetes mellitus with hyperglycemia, without long-term current use of insulin (HCC) Expected: 01/02/2025 (Approximate), Expires: 01/02/2026 documented as of this encounter Visit Diagnoses Diagnosis Type 2 diabetes mellitus with hyperglycemia, without long-term current use of insulin (HCC)- Primary Essential hypertension, benign Essential hypertension, benign Diabetic polyneuropathy associated with type 2 diabetes mellitus (HCC) Chronic heart failure with preserved ejection fraction (HFpEF) (HCC) Paroxysmal atrial fibrillation (HCC) Atrial fibrillation Peripheral vascular disease, unspecified documented in this encounter Care Teams Latent Print Examiner Relationship Specialty Start Date End Date Idris Donnelly MD [address] [place] [address] PCP - General Family Medicine 08/21/23 documented as of this encounter
[2025-01-04] VITALS (16 sets, daily range): BP systolic 127–168; BP diastolic 60–82; PULSE 65–94; TEMP 36.8; O2SAT 95–98; BMI 26.6
--- OUTSIDE RECORDS SUMMARY | 2025-01-04 15:54 | XMS_ITS | Encounter Summary ---
Author Organization [facility] Address [id number] [address] [place] [address] Care Team Providers Care Housing Assistant Property Manager Name Role Phone Idris Donnelly MD Primary Care Provider [phone] Encounter Details Date Type Department Care Team (Late st Contact Info) Description 01/30/[address] [facility] [address] [place] [address] [place] [phone] Malathi Schneider LPN Social History Tobacco Use [...] on filedocumented in this encounter Care Teams Housing Assistant Property Manager Relationship Specialty Start Date End Date Idris Donnelly MD PCP - General 11/02/16 documented as of this encounter
--- OUTSIDE RECORDS SUMMARY | 2025-01-04 15:54 | XMS_ITS | Encounter Summary ---
Author Organization [facility] Address [address] [place] [address] Care Team Providers Care Horizontal Boring Mill Operator Name Role Phone Idris Donnelly MD Primary Care Provider [phone] Encounter Details Date Type Department Care Team [...] 2:00 PM EST Office Visit [facility] [address] [place] [address] Idris Donnelly MD [address] [place] [address] documented as of this encounter Procedures Procedure Name Priority Date/Time Associated Diagnosis Comments CA ECHO DOPPLER COMPLETE 04/24/2024 7:15 PM EDT documented in this encounter Results * CA ECHO DOPPLER COMPLETE (04/24/2024 7:15 PM EDT) Anatomical Region Laterality Modality Other 04/24/2024 7:15 PM EDT Narrative 04/24/2024 7:16 PM EDT The [address] [address] Cardiology Report Signed Patient: COLE BARTHOLOMEW MR#: [id number] : 1945 Acct:[id number] Age/Sex: 78 / M ADM Date: 04/24/24 Loc: CARD Attending Dr: Ish Stover M.D. Ordering Physician: Ish Stover M.D. Date of Service: 04/24/24 Procedure(s): CA echo doppler complete Accession Number(s): [id number] cc: Ish Stover M.D.; Idris Donnelly M.D. Patient Name: COLE BARTHOLOMEW MR#: [id number] : 1945 Exam Date: 04/24/2024 Ordering Doctor: [...] Pressure: 63.28 ml, 63.28 ml Dictated by: Halie Boyd M.D. on 04/24/2024 at 19:05 Approved by: Halie Boyd M.D. on 04/24/2024 at 19:15 Dictated By: HALIE BOYD Signed By: 04/24/241915 DD/ 14 TD/TT: Window Shade Cloth Sewer: Procedure Note Radiology, Radiologist, MD - 04/24/2024 [place] [address] Cardiology Report Signed Patient: COLE BARTHOLOMEW AMR#: [id number] : 1945cct:[id number] Age/Sex: 78 / MADM Date: 04/24/24 Loc: CARD Attending Dr: Ish Stover M.D. Ordering Physician: Ish Stover M.D. Date of Service: 04/24/24 Procedure(s): CA echo doppler complete Accession Number(s): [id number] cc: Ish Stover M.D.; Idris Donnelly M.D. Patient Name: COLE BARTHOLOMEW MR#: [id number] : 1945 Exam Date: 04/24/2024 Ordering Doctor: [...] Pressure: 63.28 ml, 63.28 ml Dictated by: Halie Boyd M.D. on 04/24/2024 at 19:05 Approved by: Halie Boyd M.D. on 04/24/2024 at 19:15 Dictated By: HALEI BOYD Signed By:04/24/241915 DD/ 14 TD/TT: Window Shade Cloth Sewer: us Generic External Data Provider [facility] Final Result documented in this encounter Visit Diagnoses Not on filedocumented in this encounter Care Teams Horizontal Boring Mill Operator Relationship Specialty Start Date End Date Idris Donnelly MD [address] [place] [address] PCP - General Family Medicine 08/21/23 documented as of this encounter
--- OUTSIDE RECORDS SUMMARY | 2025-01-04 15:54 | XMS_ITS | Encounter Summary ---
Author Organization [facility] Address [address] [place] [address] Care Team Providers Care Police Captain Name Role Phone Idris Donnelly MD Primary Care Provider [phone] Reason for Visit * Reason Comments Med Refill Encounter Details Date Type Department Care Team (Late Contact Info) Description 01/04/2025 Refill [facility] [address] [place] [address] Idris Donnelly MD [address] [place] [address] Dyslipidemia ; Seasonal allergic rhinitis due to pollen Social History Tobacco Use Types Packs/Day Years [...] Department Care Team (Late Contact Info) Description 07/07/2025 2:00 PM EST Office Visit [facility] [address] [place] [address] Idris Donnelly MD [address] [place] [address] documented as of this encounter Visit Diagnoses Diagnosis Dyslipidemia Other and unspecified hyperlipidemia Seasonal allergic rhinitis due to pollen documented in this encounter Care Teams Police Captain Relationship Specialty Start Date End Date Idris Donnelly MD [address] [place] [address] PCP - General Family Medicine 08/21/23 documented as of this encounter
--- OUTSIDE RECORDS SUMMARY | 2025-01-04 15:54 | XMS_ITS | Encounter Summary ---
Author Organization [facility] Address [address] [place] [address] Care Team Providers Care Social Media Marketer Name Role Phone Idris Donnelly MD Primary Care Provider [phone] Reason for Visit * Reason Comments Med Refill Encounter Details Date Type Department Care Team (Late st Contact Info) Description 04/20/[address] [facility] [address] [place] [address] Johnathan Bowman MD [address] [facility] [address] [facility] [place] [place] [address] Edema of both lower extremities; Acute on chronic diastolic heart failure (CMS/HCC) Social History Tobacco Use Types Packs/Day Years Used Date Smoking Tobacco: Former Cigarettes 1 950 - 1960 Smokeless Tobacco: Never Alcohol Use Standard Drinks/Week Comments Yes 0 (1 standard drink = 0.6 oz pur e alcohol) OCCASIONAL MA Safety & Environment Answer Date Rec orded Fear of Current or Ex-Partner Not on file Emotionally Abused Not on file 08/24/2023 Physically Abused Not on file 08/24/2023 Sexually Abused Not on file 08/24/2023 Physically or Sexually Abused Not on file Sex and Gender Information Value Date Recorded Sex Assigned at Male 11/04/2024 12:37 PM EDT Legal Sex Male 12:20 AM EDT Gender Identity Male 11/04/2024 12:37 PM EDT Sexual Orientation Heterosexual or Straight 10/2024 12:37 PM EDT documented as of this encounter Plan of Treatment Not on file documented as of this encounter Visit Diagnoses Diagnosis Edema of both lower extremities Acute on chronic diastolic heart failure (CMS/HCC) Acute on chronic diastolic heart failure documented in this encounter Care Teams Social Media Marketer Relationship Specialty Start Date End Date Idris Donnelly MD [address] [place] [address] PCP - General 03/09/22 documented as of this encounter
--- OUTSIDE RECORDS SUMMARY | 2025-01-04 15:54 | XMS_ITS | Encounter Summary ---
Author Organization [facility] Address [address] [place] [address] Care Team Providers Care Molder Sweep Name Role Phone Idris Donenlly MD Primary Care Provider [phone] Encounter Details Date Type Department Care Team [...] 07/07/2025 2:00 PM EST Office Visit [facility] [address] [place] [address] Idris Donnelly MD [address] [place] [address] documented as of this encounter Procedures Procedure Name Priority Date/Time Associated Diagnosis Comments NM DIONISIO PERF SPECT REST STR 10/30/2023 2:06 PM EDT documented in this encounter Results * NM DIONISIO PERF SPECT REST STR (10/30/2023 2:06 PM EDT) Anatomical Region Laterality Modality Other 10/30/2023 2:06 PM EDT Narrative 10/30/2023 2:07 [place] [address] Nuclear Medicine Report Signed Patient: COLE BARTHOLOMEW MR#: [id number] : 1945 Acct:[id number] Age/Sex: 78 / M ADM Date: 10/30/23 Loc: [place] Attending Dr: Ish tSover M.D. Ordering Physician: Ish Stover M.D. Date of Service: 10/30/23 Procedure(s): NM dionisio perf SPECT rest str Accession Number(s): [id number] cc: Ish Stover M.D.; Idris Donnelly M.D. Patient Name: COLE BARTHOLOMEW MR#: [id number] : 1945 Exam Date: 10/30/2023 Ordering Doctor: [...] study was pending per attending physician Dr. WILKES . For more details please see separate [...] Signed By: 10/30/23 1407 DD/ 1406 TD/TT: Server Systems Administrator: Procedure Note Radiology, Radiologist, - 10/30/2023 [place] [address] Nuclear Medicine Report Signed Patient: COLE BARTHOLOMEW AMR#: [id number] : 1945cct:[id number] Age/Sex: 78 / MADM Date: 10/30/23 Loc: [place] Attending Dr: Ish Stover M.D. Ordering Physician: Ish Stover M.D. Date of Service: 10/30/23 Procedure(s): NM dionisio perf SPECT rest str Accession Number(s): [id number] cc: Ish Stover M.D.; Idris Donnelly M.D. Patient Name: COLE BARTHOLOMEW MR#: [id number] : 1945 Exam Date: 10/30/2023 Ordering Doctor: [...] M.D. Signed By:10/30/23 1407 DD/ 1406 TD/TT: Server Systems Administrator: us Generic External Data Provider [facility] Final Result documented in this encounter Visit Diagnoses Not on filedocumented in this encounter Care Teams Molder Sweep Relationship Specialty Start Date End Date Idris Donnelly MD [address] [place] [address] PCP - General Family Medicine 08/21/23 documented as of this encounter
--- OUTSIDE RECORDS SUMMARY | 2025-01-04 15:54 | XMS_ITS | Encounter Summary ---
Author Organization [facility] Address [address] [place] [address] Care Team Providers Care Publications Sales Representative Name Role Phone Idris Donnelly MD Primary Care Provider Encounter Details Date Type Department Care Team (Late Contact Info) Description 09/29/2023 Orders Only [facility] [address] [place] [address] Idris Donnelly MD [address] [place] [address] Social History Tobacco Use Types Packs/Day Years [...] 07/07/2025 2:00 PM EST Office Visit [facility] [address] [place] [address] Idris Donnelly MD [address] [place] [address] documented as of this encounter Procedures Procedure [...] on filedocumented in this encounter Care Teams Publications Sales Representative Relationship Specialty Start Date End Date Idris Donnelly MD [address] [place] [address] PCP - General Family Medicine 08/21/23 documented as of this encounter
--- OUTSIDE RECORDS SUMMARY | 2025-01-04 15:54 | XMS_ITS | Encounter Summary ---
Author Organization [facility] Address [address] [place] [address] Care Team Providers Care Voice Data Communications Engineer Name Role Phone Chris Jose MD Primary Care Provider [phone] Encounter Details Date Type Department Care Team (Late st Contact Info) Description 12/11/2023 Clinisync Result Encounter [facility] External Department Unsolicited Chris Jose MD [address] [place] [address] Social History Tobacco Use Types Packs/Day Years [...] 07/07/2025 2:00 PM EST Office Visit [facility] [address] [place] [address] Chris Jose MD [address] [place] [address] documented as of this encounter Procedures Procedure Name Priority Date/Time Associated Diagnosis Comments VASC US LOWER EXTREMITY ARTERIAL DUPLEX BILATERAL 12/11/2023 3:47 PM EDT documented in this encounter Results * Vascular US lower extremity arterial duplex bilateral (12/11/2023 3:47 PM EDT) Anatomical Region Laterality Modality Lower Extremities Ultrasound 12/11/2023 3:47 PM EDT Narrative 12/11/2023 3:50 [place] [address] Ultrasound Report Signed Patient: COLE BARTHOLOMEW MR#: [id number] : 1945 Acct:[id number] Age/Sex: 78 / M ADM Date: 12/11/23 Loc: US Attending Dr: Chris Jose M.D. Ordering Physician: Chris Jose M.D. Date of Service: 12/11/23 Procedure(s): US arterial duplex LE BI Accession Number(s): [id number] cc: Chris Jose M.D. [place] [address] Patient Name: COLE BARTHOLOMEW MRN: [id number] date: 1945 Sex: M Assigned Patient Location: US Current Patient Location: US Accession/Order Number: [id number] Exam Date: 12/11/2023 13:38 Report Date: 12/11/2023 [...] Signed By: 12/11/23 1550 DD/ 1547 TD/TT: Bean Roaster: Procedure Note Radiology, Radiologist, MD - 12/11/2023 [place] [address] Ultrasound Report Signed Patient: COLE BARTHOLOMEW AMR#: [id number] : 1945cct:[id number] Age/Sex: 78 / MADM Date: 12/11/23 Loc: US Attending Dr: Chris Jose M.D. Ordering Physician: Chris Jose M.D. Date of Service: 12/11/23 Procedure(s): US arterial duplex LE BI Accession Number(s): [id number] cc: Chris Jose M.D. The [place] [address] Patient Name: COLE BARTHOLOMEW MRN: [id number] date: 1945 Sex: M Assigned Patient Location: US Current Patient Location: US Accession/Order Number: [id number] Exam Date: 12/11/2023 13:38 Report Date: 12/11/2023 [...] Dictated By: Rajendra Franco M.D. Signed By:12/11/23 9688 DD/ 1547 TD/TT: Bean Roaster: Chris Jose MD IM US PROCEDURES Final Result documented in this encounter Visit Diagnoses Not on filedocumented in this encounter Care Teams Voice Data Communications Engineer Relationship Specialty Start Date End Date Chris Jose MD [address] [place] [address] PCP - General Family Medicine 08/21/23 documented as of this encounter
--- OUTSIDE RECORDS SUMMARY | 2025-01-04 15:54 | XMS_ITS | Encounter Summary ---
Author Organization [facility] Address [id number] [address] [place] [address] Care Team Providers Care Supervisor Pipeline Maintenance Name Role Phone Idris Donnelly MD Primary Care Provider [phone] Encounter Details Date Type Department Care Team ([facility] st Contact Info) Description 11/01/2022 Orders Only [facility] Center - ENT [address] [facility] [place] [address] Maia Cook, PA-C [address] [facility] [address] [place] [address] Chronic rhinitis Social History Tobacco [...] rhinitis documented in this encounter Care Teams Supervisor Pipeline Maintenance Relationship Specialty Start Date End Date Idris Donnelly MD PCP - General 11/02/16 documented as of this encounter
--- OUTSIDE RECORDS SUMMARY | 2025-01-04 15:54 | XMS_ITS | Encounter Summary ---
Author Organization [facility] Address [id number] [address] [place] [address] Care Team Providers Care [place] Biometrics Professor Name Role Phone Idris Donnelly MD Primary Care Provider Reason for Visit * Reason Comments Med Refill Encounter Details Date Type Department Care Team ([facility] st Contact Info) Description 01/07/2024 Refill [facility] [address] [facility] [place] [phone] Maia Cook, PA-C [address] [facility] [address] [place] [address] Chronic rhinitis Social History Tobacco [...] rhinitis documented in this encounter Care Teams Forest Biometrics Professor Relationship Specialty Start Date End Date Idris Donnelly MD PCP - General 11/02/16 documented as of this encounter
--- OUTSIDE RECORDS SUMMARY | 2025-01-04 15:54 | XMS_ITS | Encounter Summary ---
Author Organization [facility] Address [address] [place] [address] Care Team Providers Care Fellmongering Machine Operator Name Role Phone Idris Donnelly MD Primary Care Provider [phone] Encounter Details Date Type Department Care Team ([facility] Contact Info) Description 03/19/2024 Orders Only [facility] [address] [place] [address] Idris Donnelly MD [address] [place] [address] Social History Tobacco Use Types Packs/Day Years [...] 07/07/2025 2:00 PM EST Office Visit [facility] [address] [place] [address] Idris Donnelly MD [address] [place] [address] documented as of this encounter Visit Diagnoses Not on filedocumented in this encounter Care Teams Fellmongering Machine Operator Relationship Specialty Start Date End Date Idris Donnelly MD [address] [place] [address] PCP - General Family Medicine 08/21/23 documented as of this encounter
--- OUTSIDE RECORDS SUMMARY | 2025-01-04 15:54 | XMS_ITS | Encounter Summary ---
Author Organization [facility] Address [id number] [address] [place] [address] Care Team Providers Care Assistant Auto Center Manager Name Role Phone Idris Donnelly MD Primary Care Provider Reason for Visit * Reason Comments Med Refill Encounter Details Date Type Department Care Team ([facility] st Contact Info) Description 08/08/2023 [facility] [address] [facility] [place] [address] Maia Cook, PA-C [address] [facility] [address] [place] [address] Chronic rhinitis Social History Tobacco [...] rhinitis documented in this encounter Care Teams Assistant Auto Center Manager Relationship Specialty Start Date End Date Idris Donnelly MD PCP - General 11/02/16 documented as of this encounter
--- OUTSIDE RECORDS SUMMARY | 2025-01-04 15:54 | XMS_ITS | Clinical Summary ---
Author Organization [facility] Address [address] [place] [address] Phone Care Team Providers Care Rivet Heater Name Role Phone Unavailable Primary Care Provider [...] - 2023-2 5 season) 2024 Influenza Vaccine (#1) 2025 HIB Vaccines Aged Out No longer eligi ble based on patient's age to complete this topic HPV Vaccines (No Doses Required) Completed Hepatitis A Vaccines Aged Out No long [...]
--- OUTSIDE RECORDS SUMMARY | 2025-01-04 15:54 | XMS_ITS | Encounter Summary ---
Author Organization [facility] Address [address] [place] [address] Care Team Providers Care Almond Cutting Machine Tender Name Role Phone Idris Donnelly MD Primary Care Provider [phone] Encounter Details Date Type Department Care Team (Late Contact Info) Description 01/02/2025 Bamboo flowsheet [facility] [address] [place] [address] Idris Donnelly MD [address] [place] [address] Social History Tobacco Use Types Packs/Day Years [...] 07/07/2025 2:00 PM EST Office Visit [facility] [address] [place] [address] Idris Donnelly MD [address] [place] [address] documented as of this encounter Visit Diagnoses Not on filedocumented in this encounter Care Teams Almond Cutting Machine Tender Relationship Specialty Start Date End Date Idris Donnelly MD [address] [place] [address] PCP - General Family Medicine 08/21/23 documented as of this encounter
--- OUTSIDE RECORDS SUMMARY | 2025-01-04 15:54 | XMS_ITS | Encounter Summary ---
Author Organization [facility] Address [address] [place] [address] Care Team Providers Care Monotype Mechanic Name Role Phone Idris Donnelly MD Primary Care Provider [phone] Reason for Visit * Reason Comments Med Refill Encounter Details Date Type Department Care Team ([facility] Contact Info) Description 08/08/2023 Refill [facility] [address] [place] [address] Idris Donnelly MD [address] [place] [address] Spinal stenosis, cervical region Social History Tobacco [...] 07/07/2025 2:00 PM EST Office Visit [facility] [address] [place] [address] Idris Donnelly MD [address] [place] [address] documented as of this encounter Visit Diagnoses Diagnosis Spinal stenosis, cervical region documented in this encounter Care Teams Monotype Mechanic Relationship Specialty Start Date End Date Idris Donnelly MD [address] [place] [address] PCP - General Family Medicine 08/21/23 documented as of this encounter
--- OUTSIDE RECORDS SUMMARY | 2025-01-04 15:54 | XMS_ITS | Clinical Summary ---
Author Organization [facility] Address [address] [place] [address] Care Team Providers Care Licensed Tax Consultant Name Role Phone Idris Donnelly MD Primary Care Provider [phone] Allergies Active Allergy Reactions Criticality Noted Date Comments Sulfa (Sulfonamide Antibiotics) Swelling Medium 12/2021 Medications aspirin 81 mg EC tablet Take 1 tablet by mouth in the morning. Active atorvastatin (Lipitor) 40 mg tablet Take 1 tablet by mouth in the evening. Active carvedilol (Coreg) 25 mg tablet Take 6.25 tablets by mouth in the morning and at bedtime. Active gabapentin (Neurontin) 600 mg tablet Take 1 tablet by mouth in the morning, at noon, and at bedtime. Active glimepiride (Amaryl) 2 mg tablet Take 1 tablet by mouth with breakfast. Active montelukast (Singulair) 10 mg tablet Take 1 tablet by mouth in the morning. Active rOPINIRole (Requip) 0.25 mg tablet Take 1 tablet as needed by oral route for 90 days. Active tamsulosin (Flomax) 0.4 mg 24 hr capsule Take 1 capsule as needed by oral route for 90 days. Active pioglitazone (Actos) 30 mg tablet Take 30 mg by mouth in the morning. Active famotidine (Pepcid) 20 mg tabletIndications :Paroxysmal A-fib (CMS/HCC) Take 1 tablet (20 mg) by mouth in the morning and at bedtime. 60 tablet 2 Active azelastine-flutic asone 137-50 mcg/spray spray,non-aerosol INSTILL 2 SPRAYS INTO EACH NOSTRIL 2 TIMES DAILY 2 Active omeprazole (PriLOSEC) [address] capsule Take 20 mg by mouth in the morning and 20 mg in the evening. Active pantoprazole (ProtoNix) 40 mg EC tablet Take 1 tablet twice a day by oral route for 90 days. Active hydrALAZINE (Apresoline) 25 mg tabletIndications :Essential hypertension TAKE 1 TABLET IN THE MORNING AND AT BEDTIME 180 tablet 3 4 Active ferrous sulfate 325 (65 Fe) MG EC tablet 1 (one) time each day at the same time. 4 Active carvedilol (Coreg) 3.125 mg tabletIndications :Benign hypertensive heart disease with heart failure (CMS/HCC) TAKE 1 TABLET BY MOUTH TWICE DAILY (WITH BREAKFAST and WITH evening meal) 90 tablet 3 4 Active furosemide (Lasix) 20 mg tabletIndications :Edema of both lower extremities,Acute on chronic diastolic heart failure (CMS/HCC) TAKE 1 TABLET BY MOUTH TWICE DAILY (WITH BREAKFAST and WITH evening meal) 180 tablet 3 5 Active rivaroxaban (Xarelto) 20 mg tabletIndications :Paroxysmal atrial fibrillation (CMS/HCC) Take 1 tablet (20 mg) by mouth daily with evening meal. Take with food. 90 tablet 3 5 Active Active Problems Problem Noted Date Diagnosed Date Chronic pain of both shoulders 07/04/2024 Cellulitis of right lower leg 03/28/2024 Overview (04/29/2024): Last Assessment & Plan: Redness improved with antibiotics but worsened over past few days. Increased pain and swelling and repeat augmentin. Refer to wound care. Chronic heart failure with p reserved ejection fraction (HFpEF) 12/04/2023 Overview (04/29/2024): Last Assessment & Plan: Edema stable and continue medication. Elevate legs PRN. Follow up with cardiology as scheduled. 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 Diabetic polyneuropathy 11/03/2023 Overview (04/29/2024): Last Assessment & Plan: Pain stable and continue neurontin. DVT of lower extremity, bilateral 11/03/2023 Dyslipidemia 11/03/2023 Gastroesophageal reflux disease 11/03/2023 Peripheral vascular disease, unspecified 024 Overview (04/29/2024): Last Assessment & Plan: C/o discoloration and check FELICIA. Type 2 diabetes mellitus wit h hyperglycemia, without long-term current use of insulin 11/03/2023 Overview (04/29/2024): Last Assessment & Plan: Reports BS controlled and due for A1C. Stick to ADA diet and limit carbs. Anxiety 10/18/2023 10/18/2023 Carpal tunnel syndrome, left upper limb 10/18/19 24 10/18/2023 Cervical myelopathy 10/18/2023 10/18/2023 Dysphagia 10/18/2023 10/18/2023 Encounter for prophylactic measures, unspecified 10/18/2023 10/18/2023 History of colon polyps 10/18/2023 10/18/19 24 Impaired mobility and ADLs 10/18/202310/17 Incomplete 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 10/18/2023 10/18/2023 Neurologic gait dysfunction 10/18/2023 0401/2024 Leukocytosis 10/18/2023 10/18/2023 Orthostatic hypotension 10/18/2023 10/18/19 24 Restless leg syndrome 10/18/2023 10/18/2023 Postoperative pain after spinal surgery 10/18/19 24 10/18/2023 Poor sleep 10/18/2023 10/18/2023 Hematospermia 02/14/2023 04/05/2023 Overview (04/05/2023): 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 [...] class III, acute on chronic, diastolic 11/30/2022 Assessment & Plan (11/30/2022 2:02 PM EDT): [facility] III- SOB with ADLs, minimal exertion. + [...] and Mg > 2 Chronic rhinitis 07/25/2022 04/05/2023 Arthritis of right knee 06/08/2022 Laceration of left lower extremity 06/08/2022 Laceration without foreign b yosvany, left lower leg, initial encounter 06/08/2022 Osteoarthritis of knee 06/08/2022 Paroxysmal atrial fibrillation 03/22/2022 Assessment & Plan (11/30/2022 2:03 PM EDT): Currently in sinus rhythm per EKG today. Continue coreg and xarelto anticoagulation Assessment & Plan (06/10/2022 3:57 PM EST): P A fib s/p A fib ablation with Dr Ponce Remains on xarelto anticoagulation, and coreg. EKG today sinus rhythm with Rt BBB- Lt axis deviation. Aortic valve stenosis 12/18/2020 History of deep vein thrombosis 12/18/2020 Carcinoma of prostate 05/17/2019 Carotid atherosclerosis 05/17/2019 Essential hypertension 05/17/2019 Assessment & Plan (11/30/2022 2:03 PM EDT): Hypertension is stable- D/W pt that his low b/p is not really hypotensive. Stage 3 chronic kidney disease 05/17/2019 Assessment & Plan (11/30/2022 1:58 PM EDT): F/U with nephrology Type 2 diabetes mellitus 05/17/2019 Encounters Date Type Department Care Team Description 12/02/2024 Refill [place] [address] [facility] [place] [address] Veronica Farley MA Paroxysmal atrial fibrillation (CMS/HCC) 11/30/2024 Refill [facility] [address] [place] [facility] [address] Johnathan Bowman MD Edema of both lower extremities; Acute on chronic diastolic heart failure (CMS/HCC) 11/13/2024 1:00 PM EDT Office Visit [place] [address] [place] [facility] [place] [address] Johnathan Bowman MD S/P aortic valve replacement with bioprosthetic valve (Primary Dx); Essential hypertension; Stage 3b chronic kidney disease (CMS/HCC); Coronary artery disease involving [place] coronary artery of [place] heart, unspecified whether angina present 11/07/2024 2:30 PM EDT Office Visit [place] [address] [place] [facility] [place] [address] Derrick Arredondo CNP Acute heart failure with preserved ejection fraction (CMS/HCC) (Primary Dx); Bilateral lower extremity edema; Benign hypertensive heart disease with heart failure (CMS/HCC); Coronary artery disease involving [place] coronary artery of [place] heart, unspecified whether angina present; Paroxysmal atrial fibrillation ([facility]); H/O prosthetic aortic valve replacement; Nonrheumatic aortic valve stenosis; Stage 3b chronic kidney disease (CMS/HCC) 10/07/2024 11:15 AM EDT Ancillary Procedure [facility] [address] [place] [address] Adjustment and management of cardiac pacemaker from Last 3 Months Family History Medical History Relation Name Comments Heart failure Brother Stroke Brother Heart failure Mother Relation Name Status Comments Brother Father Mother Sister Social History Tobacco Use Types Packs/Day Years Used Date Smoking Tobacco: Former Cigarettes 1 950 - 1960 Smokeless Tobacco: Never Tobacco Cessation:Counseling Given: Not Answered Alcohol Use Standard Drinks/Week Comments Yes 0 (1 standard drink = 0.6 oz pur e alcohol) OCCASIONAL [place] Safety & Environment Answer Date Rec orded [...] Heterosexual or Straight 10/2024 12:37 PM EDT Last Filed Vital Signs Vital Sign Reading Time Taken Comments Blood Pressure 135/69 11/13/2024 12:59 PM EDT Pulse 75 11/13/2024 12:59 PM EDT Temperature 36.8 C (98.2 F) 04/21/2022 8:00 PM EDT Respiratory Rate 16 04/21/2022 8:00 PM EDT Oxygen Saturation 95% 11/13/2024 12:59 PM EDT Inhaled Oxygen Concentration - - Weight 84.4 kg (186 lb) 11/13/2024 12:59 PM EDT Height 175.3 cm (5' 9 ) 11/13/2024 12:59 PM EDT Body Mass Index 27.47 11/13/2024 12:59 PM EDT Plan of Treatment Health Maintenance Due Date Last Done Comments Medicare Annual Wellness (AWV) 1945 Diabetes: Retinopathy Screening 1953 Depression Screening 1955 Zoster Vaccines (1 of 2) 1993 Fall Risk Screening 2008 Diabetes: Hemoglobin A1C 09/02/2019 06/03/2019, 03/0 07/2017 Diabetes: Urine Protein Screening 04/18/2020 04/18/2019 COVID-19 Vaccine ( season) 2024 05/08/2024, 05/11/2023, 05/06/2022, Additional history exists Influenza Vaccine (#1) 2025 , 05/11/2023, 05/06/2022, Additional history exists Adult Tetanus 03/23/2034 03/23/2024 Pneumococcal Vaccine: 50+ Years Completed 05/03/2015, 06/04/2014, 06/04/2014 HIB Vaccines Aged Out No longer eligi ble based on patient's age to complete this topic HPV Vaccines Aged Out No longer eligi ble based on patient's age to complete this topic IPV Vaccines Aged Out No longer eligi ble based on patient's age to complete this topic Meningococcal B Vaccine Aged Out No l onger eligible based on patient's age to complete this topic Meningococcal Vaccine Aged Out No mitch jerald eligible based on patient's age to complete this topic Rotavirus Vaccines Aged Out No longer eligible based on patient's age to complete this topic Procedures Procedure Name Priority Date/Time Associated Diagnosis Comments CARDIAC DEVICE CHECK CHECK - REMOTE Routine 11/08/2024 12:47 PM EDT Adjustment and management of cardiac pacemaker CARDIAC DEVICE CHECK CHECK - REMOTE Routine 10/25/2024 11:16 AM EDT Adjustment and management of cardiac pacemaker HEMOGLOBIN A1C STAT 06/03/2019 12:15 PM EST from Last 3 Months or Most Recently Relevant to Health Maintenance Results * CARDIAC DEVICE CHECK - REMOTE - PACEMAKER (11/08/2024 12:47 PM EDT) Only the most recent of2 resultswithin the time period is included. BSA 2.03 m2 CPACS Cullen Ponce MD CV IMPLANTABLE CARDIAC DEVICE GA OCEDURES Final Result CPACS * (ABNORMAL) Hemoglobin A1C (06/03/2019 12:15 PM EST) Hemoglobin A1C 6.9(H) 4.0 - 6.0 % LAB CONVERSIONS Estimated Average Glucose 151(H) 70 - 126 mg/dL LAB CONVERSIONS 06/03/2019 12:1 5 PM EST 06/03/2019 12:42 PM EST Ho Hutton MD LAB BLOOD ORDERABLES Final Resu lt LAB CONVERSIONS from Last 3 Months or Most Recently Relevant to Health Maintenance Insurance MEDICARE [employer] Advance Directives * Full Code (Latest Code Status on File) Date Activated Date Inactivated Comments 04/21/2022 5:50 PM 04/21/2022 10:17 PM Care Teams Licensed Tax Consultant Relationship Specialty Start Date End Date Idris Donnelly MD [address] [place] [address] [facility] - General 03/09/22
--- OUTSIDE RECORDS SUMMARY | 2025-01-04 15:54 | XMS_ITS | Encounter Summary ---
Author Organization [facility] Address [address] [place] [address] Care Team Providers Care Cripple Cutter Name Role Phone Idris Donnelly MD Primary Care Provider [phone] Encounter Details Date Type Department Care Team ([facility] Contact Info) Description 01/25/2024 Orders Only [facility] [address] [place] [phone] Idris Donnelly MD [address] [place] [address] Social History Tobacco Use Types Packs/Day Years [...] 07/07/2025 2:00 PM EST Office Visit [facility] [address] [place] [address] Idris Donnelly MD [address] [place] [address] documented as of this encounter Visit Diagnoses Not on filedocumented in this encounter Care Teams Cripple Cutter Relationship Specialty Start Date End Date Idris Donnelly MD [address] [place] [phone] PCP - General Family Medicine 08/21/23 documented as of this encounter
--- OUTSIDE RECORDS SUMMARY | 2025-01-04 15:54 | XMS_ITS | Encounter Summary ---
Author Organization [facility] Address [address] [place] [address] Care Team Providers Care Trucker Hand Name Role Phone Idris Donnelly MD Primary Care Provider [phone] Encounter Details Date Type Department Care Team (Late st Contact Info) Description 03/25/2024 Orders Only [facility] [address] [place] [address] Jacky Jerome MD [address] [place] [address] Social History Tobacco Use Types Packs/Day Years [...] 07/07/2025 2:00 PM EST Office Visit [facility] [address] [place] [address] Idris Donnelly MD [address] [place] [address] documented as of this encounter Procedures Procedure [...] on filedocumented in this encounter Care Teams Trucker Hand Relationship Specialty Start Date End Date Idris Donnelly MD [address] [place] [phone] PCP - General Family Medicine 08/21/23 documented as of this encounter
--- OUTSIDE RECORDS SUMMARY | 2025-01-04 15:54 | XMS_ITS | Clinical Summary ---
Author Organization [employer] [facility] tem Address [id number] [address] [place] [address] Care Team Providers Care Certified Tumor Registrar Name Role Phone Idris Donnelly MD Primary Care Provider [phone] Allergies Active Allergy Reactions Criticality Noted Date [...] 11/30/2022 Overview (04/19/2024): Last Assessment & Plan: [facility] III- SOB with ADLs, minimal exertion. + [...] Medical Devices Not on file Insurance [facility] Care Teams Certified Tumor Registrar Relationship Specialty Start Date End Date Idris Donnelly MD PCP - General 11/02/16
--- OUTSIDE RECORDS SUMMARY | 2025-01-04 15:54 | XMS_ITS | Encounter Summary ---
Author Organization [facility] Address [address] [place] [address] Care Team Providers Care Web Operations Specialist Name Role Phone Idris Donnelly MD Primary Care Provider [phone] Encounter Details Date Type Department Care Team (Late Contact Info) Description 12/12/2023 Orders Only [facility] [address] [place] [phone] Idris Donnelly MD [address] [place] [address] Social History Tobacco Use Types Packs/Day Years [...] Office Visit [facility] [address] [place] [phone] Idris Donnelly MD [address] [place] [address] documented as of this encounter Procedures Procedure [...] on filedocumented in this encounter Care Teams Web Operations Specialist Relationship Specialty Start Date End Date Idris Donnelly MD [address] [place] [phone] PCP - General Family Medicine 08/21/23 documented as of this encounter
--- OUTSIDE RECORDS SUMMARY | 2025-01-04 15:54 | XMS_ITS | Encounter Summary ---
Author Organization [facility] Address [address] [place] [address] Care Team Providers Care Tobacco Roller Name Role Phone Idris Donnelly MD Primary Care Provider [phone] Encounter Details Date Type Department Care Team (Late Contact Info) Description 12/22/2022 Abstract [facility] [address] [place] [address] Bolivar Blankenship PT Social History Tobacco Use Types Packs/Day Years [...] 2:00 PM EST Office Visit [facility] [address] [place] [address] Idris Donnelly MD [address] [place] [address] documented as of this encounter Visit Diagnoses Not on filedocumented in this encounter Care Teams Tobacco Roller Relationship Specialty Start Date End Date Idris Donnelly MD [address] [place] [address] PCP - General Family Medicine 08/21/23 documented as of this encounter
--- OUTSIDE RECORDS SUMMARY | 2025-01-04 15:54 | XMS_ITS | Clinical Summary ---
Author Organization [facility] Healthcare Address [address] [place] [address] Care Team Providers Care Medical Receptionist Name Role Phone Idris Donnelly MD Primary Care Provider [phone] Allergies Active Allergy Reactions Criticality Noted Date Comments Sulfa Antibiotics Swelling,Unknown Medium 10/04/2016 Other Reaction(s): Not available Medications Xarelto 20 MG tablet TAKE 1 TABLET WITH EVENING MEAL, TAKE WITH FOOD 023 Active furosemide (Lasix) 20 MG tablet TAKE 1 TABLET BY MOUTH DAILY NEEDED (take for the next 2-3 days, may take NEEDED for leg swelling and SHORTNESS OF BREATH) Active aspirin 81 MG EC tablet Take 1 tablet by mouth in the morning. Active glimepiride (Amaryl) 2 MG tabletIndication s:Type 2 diabetes mellitus with hyperglycemia, with long-term current use of insulin ([facility]) Take 1 tablet (2 mg) by mouth in the morning and 1 tablet (2 mg) before bedtime. 180 tablet 3 024 Active pioglitazone (Actos) 30 MG tabletIndication s:Type 2 diabetes mellitus with hyperglycemia ([facility]) TAKE 1 TABLET DAILY 90 tablet 3 024 Active atorvastatin (Lipitor) 40 MG tabletIndication s:Dyslipidemia TAKE 1 TABLET DAILY 90 tablet 3 024 Active tamsulosin (Flomax) 0.4 MG 24 hr capsuleIndicatio ns:BPH without urinary obstruction TAKE 1 CAPSULE DAILY 90 capsule 3 024 Active carvedilol (Coreg) 6.25 MG tabletIndication s:Chronic heart failure with preserved ejection fraction (HFpEF) ([facility]) TAKE 1 TABLET TWICE A DAY 180 tablet 3 024 Active ferrous sulfate (Fe Tabs) 325 (65 Fe) MG EC tabletIndication s:Iron deficiency anemia due to chronic blood loss Take 1 tablet (325 mg) by mouth in the morning. Take with meals. Do not crush, chew, or split.. 30 tablet 11 Active glucose blood test stripIndications :Type 2 diabetes mellitus with hyperglycemia, without long-term current use of insulin (HCC) Test once daily 100 each 12 024 2024 Active montelukast (Singulair) 10 MG tabletIndication s:Seasonal allergic rhinitis due to pollen TAKE 1 TABLET DAILY 30 tablet 5 Active Azelastine-Fluti casone 137-50 MCG/ACT suspensionIndica tions:Seasonal [...] before bedtime. 90 tablet 2 025 Active lisinopril 40 MG tablet Oral for 90 2024 Discontinued hydrALAZINE (Apresoline) 25 MG tablet 024 2024 Discontinued methylPREDNISolo ne (Medrol Dospak) 4 MG tabletsIndicatio ns:Impingement of left shoulder Follow schedule on package instructions 21 tablet 025 2024 Discontinued Active Problems Problem Noted Date Diagnosed Date [...] Healing well and follow with wound care. Chronic heart failure with p reserved ejection fraction (HFpEF) 12/04/2023 Assessment & Plan (01/02/2025 11:41 AM EDT): Edema stable and continue medication. Elevate legs PRN. Follow up with cardiology as scheduled. Assessment & Plan (07/04/2024 11:24 AM EST): Edema stable and continue medication. Elevate legs PRN. Follow up with cardiology as scheduled. Assessment & Plan (12/04/2023 1:34 PM EDT): Edema stable and continue medication. Elevate legs PRN. Follow up with cardiology as scheduled. Paroxysmal atrial fibrillation 12/04/2023 Assessment & Plan (01/02/2025 11:42 AM EDT): In NSR and monitor. Follow up with cardiology as scheduled. Assessment & Plan (07/04/2024 11:25 AM EST): [...] Essential hypertension, benign 11/03/2023 Assessment & Plan (01/02/2025 11:41 AM EDT): BP controlled and monitor PRN. Assessment & Plan (07/04/2024 11:25 AM EST): BP controlled and monitor PRN. Assessment & Plan (12/04/2023 1:35 PM EDT): BP controlled and monitor PRN. BPH without urinary obstruction 11/03/2023 Complete heart block 11/03/2023 Degenerative cervical spinal stenosis 11/03/2023 Degenerative lumbar spinal stenosis 11/03/2023 Assessment & Plan (03/28/2024 2:24 PM EDT): Unsteady when up and moving and script for cane to patient. Dyslipidemia 11/03/2023 Gastroesophageal reflux disease 11/03/2023 Hematospermia 11/03/2023 Peripheral vascular disease, unspecified 024 Assessment & Plan (01/02/2025 11:42 AM EDT): Symptoms stable and continue medication. Assessment & Plan (07/04/2024 11:25 AM EST): Symptoms stable and continue medication. Assessment & Plan (12/04/2023 1:35 PM EDT): C/o discoloration and check FELICIA. CKD stage 3b, GFR 30-44 ml/min 11/03/2023 Assessment & Plan (07/04/2024 11:26 AM EST): Repeat labs next visit. Type 2 diabetes mellitus wit h hyperglycemia, without long-term current use of insulin 11/03/2023 Assessment & Plan (01/02/2025 11:42 AM EDT): Not checking BS and due for A1C. Stick to ADA diet and limit carbs. Assessment & Plan (07/04/2024 11:26 AM EST): [...] carbs. Diabetic polyneuropathy 11/03/2023 Assessment & Plan (01/02/2025 11:41 AM EDT): Pain stable and continue neurontin. Assessment & Plan (07/04/2024 11:25 AM EST): Pain stable and continue neurontin. Assessment & Plan (12/04/2023 1:34 PM EDT): Pain stable and continue neurontin. Resolved Problems Problem Noted Date Diagnosed Date Resolved Date Wound of right leg, subsequent encounter 04/10/2024 01/02/2025 Assessment & Plan (04/10/2024 11:13 AM EDT): Wound not healing well and refer to wound care. Cellulitis of right lower leg 03/28/2024 07/04/2024 Assessment & Plan (04/10/2024 11:12 AM EDT): Redness improved with antibiotics but worsened over past few days. Increased pain and swelling and repeat augmentin. Refer to wound care. Assessment & Plan (03/28/2024 2:23 PM EDT): Redness improved and complete antibiotics as prescribed. Bilateral leg edema 11/03/2023 01/03/20 25 Major depressive disorder, r ecurrent episode, mild 11/03/2023 12/04/2023 Encounters Date Type Department Care Team Description 01/04/2025 Refill [facility] [address] [place] [phone] Idris Donnelly MD Dyslipidemia ; Seasonal allergic rhinitis due to pollen 01/02/2025 11:15 AM EDT Office Visit [facility] [address] [place] [address] Idris Donnelly MD Type 2 diabetes mellitus with hyperglycemia, without long-term current use of insulin (HCC) (Primary Dx); Essential hypertension, benign ; Diabetic polyneuropathy associated with type 2 diabetes mellitus (HCC); Chronic heart failure with preserved ejection fraction (HFpEF) (HCC); Paroxysmal atrial fibrillation (HCC); Peripheral vascular disease, unspecified 01/02/2025 Bamboo flowsheet [facility] [address] [place] [id number] Idris Donnelly MD 12/13/2024 Clinisync Result Encounter [facility] External Department Unsolicited Provider, Generic External Data 12/03/2024 Refill [facility] [address] [place] [address] Idris Donnelly MD Spinal stenosis, cervical region 11/30/2024 Refill [facility] [address] [place] [address] Idris Donnelly MD Restless legs 11/07/2024 Clinisync Result Encounter [facility] External Department Unsolicited Provider, Generic External Data 10/31/2024 Refill [facility] [address] [place] [address] Idris Donnelly MD Spinal stenosis, cervical region 10/16/2024 Clinisync Result Encounter [facility] External Department Unsolicited Provider, Generic External Data 10/07/2024 Refill [facility] [address] [place] [address] Idris Donnelly MD Gastroesophageal reflux disease, unspecified [...] Mass Index 27.76 01/02/2025 11:21 AM EDT Plan of Treatment Upcoming Encounters Date Type Department Care Team (Late st Contact Info) Description 07/07/2025 2:00 PM EST Office Visit [facility] [address] [place] [address] Idris Donnelly MD [address] [place] [address] Health Maintenance Due Date Last Done Comments Diabetes: Retinopathy Screening 1955 Diabetes: Hemoglobin A1C 10/30/2024 05/01/2024, 03/0 07/2017 Influenza Vaccine (#1) 2025 , 05/11/2023, 05/06/2022, Additional history exists Diabetes: Urine Protein Screening 12/13/2025 12/13/2024, 03/06/2024, 04/18/2019, Additional history exists Pneumococcal Vaccine: 65+ Years Completed 03/23/2020, 05/03/2015, 06/04/2014, Additional history exists Procedures Procedure Name Priority Date/Time Associated Diagnosis Comments ALL ALBUMIN Routine 12/13/2024 11:42 AM EDT ALL MAGNESIUM Routine 12/13/2024 11:42 AM EDT ALL PHOSPHOROUS Routine 12/13/2024 11:42 AM EDT ALL URIC ACID Routine 12/13/2024 11:42 AM EDT ALL BASIC METABOLIC PANEL Routine 12/13/2024 11:42 AM EDT [facility] CBC WITH PLATELET NO DIFFERENTIAL Routine 12/13/2024 11:42 AM EDT TBH MICROALB CREAT RATIO RANDOM Routine 12/13/2024 11:15 AM EDT [facility] URINALYSIS, WITH MICROSCOPIC Routine 12/13/2024 11:15 AM EDT ALL PRO BNP Routine 11/07/2024 3:15 PM EDT ALL BASIC METABOLIC PANEL Routine 11/07/2024 3:15 PM EDT ALL CBC WITH AUTO DIFF Routine 11/07/2024 3:15 PM EDT CA ECHO DOPPLER COMPLETE 10/16/2024 8:59 PM EDT from Last 3 Months Results * (ABNORMAL) [facility] CBC WITH PLATELET NO DIFFERENTIAL (12/13/2024 11:42 AM EDT) TBH WBC 6.1 4.0 - 11.0 10 3/uL TBH TBH RBC 4.26(L) 4.70 - 6.10 10 6/uL TBH TBH HGB 12.8(L) 14.0 - 18.0 g/dL TBH TBH HCT 39.2(L) 42.0 - 54.0 % TBH TBH MCV 92.0 80.0 - 94.0 fL TBH TBH MCH 30.0 25.9 - 34.0 pg TBH TBH MCHC 32.7 29.9 - 35.2 g/dL TBH TBH RDW 14.4 11.0 - 15.0 % TBH TBH PLT 190 150 - 450 10 3/uL TBH TBH MPV 10.4 9.5 - 13.5 fL TBH 12/13/2024 11:4 2 AM EDT 12/13/2024 11:43 AM EDT Narrative CLIN[facility] - 12/13/2024 11:52 AM EDT Generic External Data Provider [facility] F inal Result Performing Organization Address City/[facility] Co de Phone Number CL[facility]NC TB * (ABNORMAL) ALL URIC ACID (12/13/2024 11:42 AM EDT) URIC ACID 8.8(H) 3.5 - 7.2 mg/dL TBH 12/13/2024 11:4 2 AM EDT 12/13/2024 11:43 AM EDT Narrative CLIN[facility]NC - 12/13/2024 12:32 PM EDT Generic External Data Provider CLINISYNC F inal Result Performing Organization Address [facility] de Phone Number CL[facility] TB * ALL PHOSPHOROUS (12/13/2024 11:42 AM EDT) PHOSPHORUS 3.7 2.6 - 4.7 mg/dL TBH 12/13/2024 11:4 2 AM EDT 12/13/2024 11:43 AM EDT Narrative CLINISYNC - 12/13/2024 12:32 PM EDT Generic External Data Provider CLINISYNC F inal Result Performing Organization Address [facility] de Phone Number [facility] TB * ALL MAGNESIUM (12/13/2024 11:42 AM EDT) MAGNESIUM 1.8 1.8 - 2.4 mg/dL TBH 12/13/2024 11:4 2 AM EDT 12/13/2024 11:43 AM EDT Narrative CLINISYNC - 12/13/2024 12:32 PM EDT Generic External Data Provider CLINISYNC F inal Result Performing Organization Address [facility] de Phone Number [facility] * (ABNORMAL) ALL BASIC METABOLIC PANEL (12/13/2024 11:42 AM EDT) Only the most recent of2 resultswithin the time period is included. SODIUM 142 136 - 145 mmol/L TBH POTASSIUM 4.1 3.5 - 5.1 mmol/L TBH CHLORIDE 103 98 - 107 mmol/L TBH CARBON DIOXIDE 31.4 21.0 - 32.0 mmol/L TBH ANION GAP 11.7 TBH GLUCOSE 120(H) 74 - 106 mg/dL TBH BLOOD UREA NITROGEN 29.0(H) 7.0 - 18.0 mg/dL TBH CREATININE 1.62(H) 0.70 - 1.30 mg/dL TBH TBH EGFR-AF POLISH 50(L) >=60 mL/min/1.7 3m 2 TBH TBH EGFR-NON AF POLISH 41(L) >=60 mL/min/1.7 3m 2 TBH BUN CREATININE RATIO 17.9 TBH CALCIUM 9.2 8.5 - 10.1 mg/dL TBH 12/13/2024 11:4 2 AM EDT 12/13/2024 11:43 AM EDT Narrative CLINISYNC - 12/13/2024 12:32 PM EDT Generic External Data Provider CLINISYNC F inal Result Performing Organization Address [facility] de Phone Number CLINISYMT TB * ALL ALBUMIN (12/13/2024 11:42 AM EDT) ALBUMIN LEVEL 3.5 3.4 - 5.0 g/dL TBH 12/13/2024 11:4 2 AM EDT 12/13/2024 11:43 AM EDT Narrative CLIN[facility]YNC - 12/13/2024 12:32 PM EDT Generic External Data Provider CLINIS[facility]NC F inal Result Performing Organization Address [facility] Co de Phone Number [facility] * (ABNORMAL) TBH MICROALB CREAT RATIO RANDOM (12/13/2024 11:15 AM EDT) MICROALBUMIN URINE RANDOM <1.3 <=30.0 mg/dL TBH CREATININE URINE RANDOM 18.49(L) 20.00 - 300.00 mg/dL TBH 12/13/2024 11:1 5 AM EDT 12/13/2024 11:43 AM EDT Narrative CLINISYNC - 12/13/2024 2:33 PM EDT Generic External Data Provider CLIN[facility] F inal Result Performing Organization Address [facility] de Phone Number MARY TB * [facility] URINALYSIS, WITH MICROSCOPIC (12/13/2024 11:15 AM EDT) COLOR URINE LT. YELLOW YELLOW TBH CLARITY URINE CLEAR CLEAR TBH SPECIFIC GRAVITY URINE 1.010 1.005 - 1.025 TBH PH URINE 7.0 5.0 - 9.0 TBH PROTEIN URINE NEGATIVE NEG/TRACE mg/dL TBH GLUCOSE URINE UA NEGATIVE NEGATIVE mg/dL TBH BILIRUBIN URINE NEGATIVE NEGATIVE TBH KETONES URINE NEGATIVE NEGATIVE mg/dL TBH BLOOD URINE NEGATIVE NEGATIVE TBH NITRITE URINE NEGATIVE NEGATIVE TBH UROBILINOGEN URINE 0.2 0.2 - 1.0 EU/dL TBH LEUKOCYTE ESTERASE URINE NEGATIVE NEGATIVE TBH TBH WBC NONE SEEN NONE SEEN #/HPF TBH TBH RBC NONE SEEN 0 - 2 #/HPF TBH BACTERIA URINE NONE SEEN NONE SEEN #/HPF TBH MUCUS URINE NONE SEEN NONE SEEN TBH SQUAMOUS EPITHELIAL CELL URINE NONE SEEN NONE/RARE #/LPF TBH CRYSTALS SEEN? None Seen None Seen #/HPF TBH CAST SEEN? NONE SEEN NONE SEEN #/LPF TBH 12/13/2024 11:1 5 AM EDT 12/13/2024 11:43 AM EDT Narrative CLINISYNC - 12/13/2024 12:06 PM EDT Generic External Data Provider [facility] F inal Result [facility] * ALL PRO BNP (11/07/2024 3:15 PM EDT) NT PRO B TYPE NATRIURETIC PEPT 343.0 <=1,800.0 pg/mL TB 11/07/2024 3:15 PM EDT 11/07/2024 3:17 PM EDT Narrative CLINISYNC - 11/07/2024 3:44 PM EDT us Generic External Data Provider [facility] F inal Result [facility] * (ABNORMAL) ALL CBC WITH AUTO DIFF (11/07/2024 3:15 PM EDT) Pathologist [facility] TB WBC 6.6 4.0 - 11.0 10 3/uL TBH TBH RBC 4.18(L) 4.70 - 6.10 10 6/uL TBH TBH HGB 12.4(L) 14.0 - 18.0 g/dL TBH TB HCT 38.9(L) 42.0 - 54.0 % TBH [...] External Data Provider CLINIS[facility]NC F inal Result [facility] * CA ECHO DOPPLER COMPLETE (10/16/2024 8:59 PM EDT) Anatomical Region Laterality Modality Other 10/16/2024 8:59 PM EDT Narrative 10/16/2024 9:00 [place] [address] Cardiology Report Signed Patient: JASON BARTHOLOMEW MR#: [id number] : 1945 Acct:[id number] Age/Sex: 79 / M ADM Date: 10/16/24 Loc: CARD Attending Dr: Johnathan Stover M.D. Ordering Physician: Johnathan Stover M.D. Date of Service: 10/16/24 Procedure(s): CA echo doppler complete Accession Number(s): [id number] cc: Johnathan Stover M.D.; Idris Donnelly M.D. Patient Name: JASON BARTHOLOMEW MR#: [id number] : 1945 Exam Date: 10/16/2024 Ordering Doctor: [...] BOYD Signed By: 10/16/242099 DD/ 58 TD/TT: Field Artillery Fire Control Man: Procedure Note Radiology, Radiologist, MD - 10/16/2024 [place] [address] Cardiology Report Signed Patient: JASON BARTHOLOMEW AMR#: [id number] : 1945cct:[id number] Age/Sex: 79 / MADM Date: 10/16/24 Loc: CARD Attending Dr: Johnathan Stover M.D. Ordering Physician: Johnathan Stover M.D. Date of Service: 10/16/24 Procedure(s): CA echo doppler complete Accession Number(s): [id number] cc: Johnathan Stover M.D.; Idris Donnelly M.D. Patient Name: JASON BARTHOLOMEW MR#: [id number] : 1945 Exam Date: 10/16/2024 Ordering Doctor: [...] HALIE BOYD Signed By:10/16/242099 DD/ 58 TD/TT: Field Artillery Fire Control Man: Generic External Data Provider [facility] Final Result from Last 3 Months Insurance MEDICARE [employer] Advance Directives Documents on File Type Date Recorded Patient Cad Application Support Specialist Expl anation Power of Publication Designer 02/19/2024 11:25 AM cande avina of litigation attorney Care Teams Medical Receptionist Relationship Specialty Start Date End Date Idris Donnelly MD [address] [place] [address] PCP - General Family Medicine 08/21/23
--- OUTSIDE RECORDS SUMMARY | 2025-01-04 15:54 | XMS_ITS ---
Author Organization [facility] Address [address] [place] [address] Care Team Providers Care Assistant Boiler Operator Name Role Phone Idris Donnlely MD Primary Care Provider [phone] Active Problems Problem Noted Date Diagnosed Date [...] level 10/18/2023 10/18/2023 Neurologic gait dysfunction 10/18/2023 04/01/2024 Leukocytosis 10/18/2023 10/18/2023 Orthostatic hypotension 10/18/2023 10/18/19 [...] Assessment & Plan (11/30/2022 2:02 PM EDT): [place] III- SOB with ADLs, minimal exertion. + [...] with nephrology Type 2 diabetes mellitus 05/17/2019 Current Treatment and Therapy Plans No current plan information found. Past Treatment and Therapy Plans No past plan information found. Lifetime Dose Tracking * Chemical Lifetime Dose Automatic Entry Manual Entr y Fluoro Time 2 minutes 0 minutes 2 minutes Air Kerma 15 mGy 0 mGy 15 mGy
--- OUTSIDE RECORDS SUMMARY | 2025-01-04 15:54 | XMS_ITS ---
Author Organization [facility] tem Address [id number] [address] [place] [address] Care Team Providers Care Naturalization Examiner Name Role Phone Idris Donnelly MD Primary Care Provider [phone] Active Problems Problem Noted Date Diagnosed Date [...] 11/30/2022 Overview (04/19/2024): Last Assessment & Plan: [facility] III- SOB with ADLs, minimal exertion. [...]
--- NOTE | 2025-01-04 15:55 | XR_ITS ---
The [address] [address] Patient Name: JASON DEAN MRN: [id number] date: 1945 Sex: M Assigned Patient Location: ED.MAIN Current Patient Location: ED.MAIN Accession/Order Number: [id number] Exam Date: 01/04/2025 17:14 Report Date: 01/04/2025 17:15 At the request of: ROSITA VAZ MD Procedure: XR chest 1V Plain film chest Single view HISTORY: Chest pain COMPARISON: 11/17/2022 FINDINGS: SUPPORT DEVICES: Intact cardiac device POSTSURGICAL CHANGES: None HEART: Within normal limits PULMONARY SIL: Within normal limits MEDIASTINUM: Unremarkable LUNGS AND PLEURA: No acute lung process, pleural effusion or pneumothorax identified. BONY STRUCTURES: Intact ADDITIONAL FINDINGS None XR/XR chest 1V IMPRESSION: No acute process. Impression dictated by: Jacky Hollingsworth M.D. 01/04/2025 5:15 PM Dictation Location: [employer] Electronically authenticated by: [id number] Y Date: 01/04/2025 17:15
--- NOTE | 2025-01-04 15:55 | ECG_ITS ---
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 Measurements Intervals [place] Rate: 68 P: 63 [place]: 168 QRS: 109 QRSD: 132 T: 52 QT: 416 QTc: 433 Interpretive Statements 1100 Sinus rhythm 2450 Right bundle branch block 7300 Indeterminate axis 9150 abnormal ECG Compared to ECG 12/15/2021 15:05:10 Indeterminate axis now present Atrial-paced complex(es) or rhythm no longer present Electronically Signed On 01-05-2025 17:24:53 EDT by HALIE EPSTEIN M.D.
--- OUTSIDE RECORDS SUMMARY | 2025-01-04 15:55 | XMS_ITS | CCD ---
Author Organization [facility] Care Team Providers Care Upholstery Technician Name Role Phone MASROOR, JANETH Admitting Unavailable MASROOR, JANETH Attending Unavailable IDRIS JOSE Primary Care Unavailable NADEREIDRIS Sky Referring Unavailable MASROOR, JANETH Surgeon Unavailable OK Procedure Practitioner Unavailab MINE Stafford Surgeon Unavailable OK Procedure Practitioner Unavailab GILBERTO Peña Surgeon Unavailable OK Procedure Practitioner Unavailab BRYAN Nelson AM Surgeon Unavailable OK Procedure Practitioner Unavailab Sonali Fowler Unavailable Darien Escamilla Unavailable MD Idris Jose Primary Care Provider MD Darien Escamilla Attending Provider Idris Jose Primary Care Unavailable Idris Jose Admitting Unavailable Idris Jose Attending Unavailable Idris Jose Primary Care Unavailable Idris Jose Admitting Unavailable Idris Jose Attending Unavailable Idris Jose Primary Care Unavailable Darien Escamilla Attending Unavailable Darien Escamilla Admitting Unavailable Damon, Idris Primary Care Unavailable Darien Escamilla Attending Unavailable Darien Escamilla Admitting Unavailable Kylah Valenzuela Unavailable SHIRLEYSBURGDR RAJENDRA V Consulting Unavailable APLINGBONITA Admitting Unavailable APLINGBONITA Attending Unavailable NADEREJose Daniel, DR IDRIS Valdivia Primary Care Unavailable BONITA LOWE Consulting Unavailable MISC, DR HAMPTON Admitting Unavailable [...] DR IDRIS Valdivia Primary Care Unavailable YIFAN, KYA Admitting Unavailable YIFAN, KYA Attending Unavailable YIFAN, KYA Consulting Unavailable ELTAHAWY, DR DENG Admitting Unavailable [...] e HAY ., DR MEMBRENO Consulting Unavailable DERROWGEOVANNA Consulting Unavailable NEFCY, PETER Consulting Unavailable FAWWAD, ALLRED H Primary Care Unavailable FAWWAD, ALLRED H Admitting Unavailable FAWWAD, ALLRED H Attending Unavailable FAWWAD, ALLRED H Consulting Unavailable NEFCY, PETER Consulting Unavailable Idris Jose MD Primary Care Provider Idris Jose MD Primary Care Provider [phone] Idris Jose MD Primary Care Provider [phone] LION LLOYD Attending Unavailable ZACHEREIDRIS Sky Referring Unavailable DAMON, IDRIS Primary Care Unavailable LEXI GOLDMAN Attending Unavailable ZACHEREIDRIS Sky Referring Unavailable ZACHEREJose Daniel, IDRIS Primary Care Unavailable LEXI GOLDMAN Attending Unavailable NADEREIDRIS Sky Referring Unavailable NADERER, IDRIS Primary Care Unavailable JONES, LEXI P Attending Unavailable NADERER, IDRIS Referring Unavailable NADERER, IDRIS Primary Care Unavailable JONES, LEXI P Attending Unavailable NADERER, IDRIS Referring Unavailable NADERER, IDRIS Primary Care Unavailable JONES, LEXI P Attending Unavailable NADERER, IDRIS Referring Unavailable NADERER, IDRIS Primary Care Unavailable JONES, LEXI P Attending Unavailable NADERER, IDRIS Referring Unavailable NADERER, IDRIS Primary Care Unavailable JONES, LEXI P Attending Unavailable NADERER, IDRIS Referring Unavailable NADERER, IDRIS Primary Care Unavailable JONES, LEXI P Attending Unavailable NADERER, IDRIS Referring Unavailable NADERER, IDRIS Primary Care Unavailable BRINK, OLU Attending Unavailable NADERER, IDRIS Referring Unavailable JENKINS, EUGENIE Attending Unavailable NADERER, IDRIS Referring Unavailable APLING, BONITA Herron Attending Unavailable KELBLEY, KYA Attending Unavailable NADERER, IDRIS Referring Unavailable KELBLEY, KYA Attending Unavailable NADERER, IDRIS Referring Unavailable JR. MATHIEU, HALIE Antunez Attending Unavaila laly BURCH, VONDA Gay Attending Unavailable BURCH, VONDA Gay Referring Unavailable NADERER, IDRIS Attending Unavailable NADERER, IDRIS Attending Unavailable NADERER, IDRIS Attending Unavailable NADERER, IDRIS Attending Unavailable APLING, BONITA Herron Attending Unavailable NADERER, IDRIS Referring Unavailable APLING, BONITA Gopal Referring Unavailable JENKINS, EUGENIE Attending Unavailable NADERER, IDRIS Referring Unavailable KELBLEY, KYA Attending Unavailable NADERER, IDRIS Referring Unavailable KELBLEY, KYA Attending Unavailable NADERER, IDRIS Referring Unavailable BRINK, OLU Attending Unavailable NADERER, IDRIS Referring Unavailable YANCY, DERRICK Attending Unavailable ELTAHAWY, JOHNATHAN Attending Unavailable ROSALINDA, ORLANDO Referring Unavailable ELTAHAWY, JOHNATHAN Attending Unavailable ROSALINDA, ORLANDO Referring Unavailable ROSALINDA, ORLANDO Referring Unavailable Allergies Allergy Classification Reported Allergen(s) Allergy Type Date of Onset Reaction(s) Facility (6 sources) Sulfonamides (Antibiotic); Translations: [SULFA (SULFONAMIDE ANTIBIOTICS)] Drug allergy (disorder) 10-05-19 17 Rash [facility] Repository (5 sources) Sulfonamides (Antibiotic) Propensity to adverse reactions (Ishaan) 07/31/2013 Skin Rash Skin Rash [employer] Other (1 source) Sulfonamides (Antibiotic) Drug allergy (disorder) 07-06-19 23 [facility] Repository (20 sources) Sulfonamides (Antibiotic) Drug Allergy 10-05-19 17 [...] aspirin 81 mg delayed release oral tablet (20 sources) Platelet Aggregation Inhibitor, Nonsteroidal Anti-inflammatory Drug Start: 04-24-2020 End: 06-02-2020 take 81 mg by mouth once daily Aspirin Active 81 MG PO Daily June 02, 2020 12:00am take 1 tablet by dominic th every twenty-four hours Aspirin 81 MG 1 tablet Orally Once a day Active atorvastatin 40 mg oral tablet (20 sources) HMG-CoA Reductase Inhibitor Start: 01-08-2024 atorvastatin (Lipito r) 40 MG tablet Indications: Dyslipidemia TAKE 1 TABLET DAILY 90 tablet 3 [...] & Fluticasone 137 & 50 MCG/ACT therapy (9 sources) Start: 10-23-2023 take 2 spray(s) nasal route in the morning Azelastine & Fluticasone 137 & 50 MCG/ACT therapy Indications: Seasonal allergic rhinitis due to pollen Administer 2 sprays into affected nostril(s) in the morning and at noon 3 each 3 10/23/2023 Active azelastine hydrochloride 0.137 mg/actuat / fluticasone propionate 0.05 mg/actuat metered dose nasal spray (20 sources) Corticosteroid, Histamine-1 Receptor Antagonist Start: 08-14-2024 take 2 spray(s) nasal route in the morning Azelastine-Flutic asone 137-50 MCG/ACT suspension Indications: Seasonal allergic rhinitis due to pollen ADMINISTER 2 SPRAYS INTO AFFECTED NOSTRIL(S) IN THE MORNING AND 2 SPRAYS BEFORE BEDTIME. 69 g 3 08/14/2024 Active Start: 08-01-2024 End: 08-14-2024 take 2 spray(s) nasal route in the morning Azelastine-Fluticasone 137-50 MCG/ACT suspension Indications: Seasonal allergic rhinitis due to pollen ADMINISTER 2 SPRAYS INTO AFFECTED NOSTRIL(S) IN THE MORNING AND 2 SPRAYS BEFORE BEDTIME. 23 g 3 08/01/2024 08/14/2024 Discontinued (Reorder) Start: 07-01-2024 take 2 spray(s) nasa l route in the morning Azelastine-Fluticasone 137-50 MCG/ACT suspension Indications: Seasonal allergic rhinitis due to pollen ADMINISTER 2 SPRAYS INTO AFFECTED NOSTRIL(S) IN THE MORNING AND 2 SPRAYS BEFORE BEDTIME. 23 g 3 07/01/2024 Active Start: 11-01-2022 take 2 spray(s) nasa l route twice daily azelastine-fluticasone (DYMISTA) 137-50 mcg/spray spray,non-aerosol Indications: Chronic rhinitis USE 2 SPRAYS IN EACH NOSTRIL TWICE DAILY 69 g 11/01/2022 Active Start: 09-26-2018 End: 06-02-2020 Azelastine-Fluticasone Disco ntinued 1 SPRAY INTRANASAL Bedtime September 25, 2018 11:00pm June 02, 2020 1:26pm carvedilol 6.25 mg oral tablet (20 sources) alpha-Adrenergic Robert, beta-Adrenergic Robert Start: 04-22-2024 carvedilol (Core g) 6.25 MG tablet Indications: Chronic heart failure with preserved ejection fraction (HFpEF) (HCC) TAKE 1 TABLET TWICE A DAY 180 tablet 3 04/22/2024 Active Start: 08-09-2023 carvedilol (Co reg) 6.25 MG tablet 08/09/2023 Active Start: 06-22-2022 take 12.5 mg by mout h twice daily at mealtime Carvedilol Active 12.5 MG PO Twice daily with meals June 22, 2022 10:34am Start: 04-24-2020 End: 06-22-2022 take 25 mg by mouth twice daily at mealtime Carvedilol Discontinued 25 MG PO Twice daily with meals June 02, 2020 12:00am June 22, 2022 [...] Three times daily July 06, 2022 12:00am ferrous sulfate 325 mg delayed release oral tablet (20 sources) Start: 05-01-2024 take 1 tablet by mouth at mealtime ferrous sulfate (Fe Tabs) 325 (65 Fe) MG EC tablet Indications: Iron deficiency anemia due to chronic blood loss Take 1 tablet (325 mg) by mouth in the morning. Take with meals. Do not crush, chew, or split.. 30 tablet 11 05/01/2024 Active furosemide 20 mg oral tablet (20 sources) Loop Diuretic take 1 tablet by mouth once daily as needed furosemide (Lasix) 20 MG tablet TAKE 1 TABLET BY MOUTH DAILY NEEDED (take for the next 2-3 days, may take NEEDED for leg swelling and SHORTNESS OF BREATH) Active gabapentin 600 mg oral tablet (20 sources) Anti-epileptic Agent Start: 08-13-2021 End: 12-03-2024 take 1 tablet by mouth in the morning, then take 1 tablet by mouth in the evening, then take 1 tablet by mouth at bedtime gabapentin (Neurontin) 600 MG tablet Indications: Spinal stenosis, cervical region Take 1 tablet (600 mg) by mouth in the morning and 1 tablet (600 mg) in the evening and 1 tablet (600 mg) before bedtime. 90 tablet 2 12/04/2024 Active Start: 04-24-2020 End: 06-02-2020 take 600 mg by mouth three times daily Gabapentin Active 600 MG PO Three times daily 90 June 02, 2020 12:00am glimepiride 2 mg oral tablet (20 sources) Sulfonylurea Start: 12-27-2023 take 1 tablet [...] 12:00am hydrALAZINE hydrochloride 25 mg oral tablet (20 sources) Arteriolar Vasodilator Start: 11-23-2023 End: 01-02-2025 hydrALAZINE (Apresoline) 25 MG tablet 11/23/2023 01/02/2025 Discontinued levoFLOXacin 750 mg oral tablet (6 sources) Quinolone Antimicrobial Start: 07-18-2024 End: 07-25-2024 take 1 tablet by mouth once daily levoFLOXacin (Levaquin) 750 MG tablet Indications: Upper respiratory tract infection, unspecified type Take 1 tablet (750 mg) by mouth Daily for 7 days 7 tablet 07/18/2024 07/25/2024 Active Start: 06-24-2024 End: 07-04-2024 take 1 tablet by mouth once daily levoFLOXacin (Levaquin) 750 MG tablet Indications: Upper respiratory tract infection, unspecified type Take 1 tablet (750 mg) by mouth Daily for 7 days 7 tablet 06/24/2024 07/04/2024 Discontinued montelukast 10 mg oral tablet (20 sources) Leukotriene Receptor Antagonist Start: 08-05-2024 montelukast (Singulair) 10 MG tablet Indications: Seasonal allergic rhinitis due to pollen TAKE 1 TABLET DAILY 30 tablet 5 08/05/2024 Active Start: 07-25-2022 take 1 tablet by dominic th once daily montelukast (Singulair) 10 MG tablet Indications: Seasonal allergic rhinitis due to pollen Take 1 tablet (10 mg) by mouth Daily 90 tablet 3 10/23/2023 Active Start: 09-26-2018 End: 06-22-2022 take 10 mg by mouth once daily Montelukast Discontinue d 10 MG PO Daily 30 June 02, 2020 12:00am June 22, 2022 10:34am omeprazole 20 mg delayed release oral capsule (20 sources) Proton Pump Inhibitor Start: 06-02-2020 take [...] pantoprazole 40 mg delayed release oral tablet (20 sources) Proton Pump Inhibitor Start: 10-07-2024 take 1 tablet by mouth twice daily pantoprazole (ProtoNix) 40 MG EC tablet Indications: Gastroesophageal reflux disease, unspecified whether esophagitis present TAKE 1 TABLET BY MOUTH TWICE DAILY 180 tablet 3 10/07/2024 Active Start: 08-15-2024 take 1 tablet by dominic th twice daily pantoprazole (ProtoNix) 40 MG EC tablet Indications: Gastroesophageal reflux disease, unspecified whether esophagitis present Take 1 tablet twice a day by oral route for 90 days. 180 tablet 3 08/15/2024 Active Start: 09-12-2023 take 1 tablet by dominic th twice daily pantoprazole (ProtoNix) 40 MG EC [...] 2020 2:18pm pioglitazone 30 mg oral tablet (20 sources) Peroxisome Proliferator Receptor alpha Agonist, Peroxisome Proliferator Receptor gamma Agonist, Thiazolidinedione Start: 01-08-2024 pioglitazone (Actos) 30 MG tablet Indications: Type 2 diabetes mellitus with hyperglycemia (HCC) TAKE [...] 2022 12:00am rivaroxaban 20 mg oral tablet (20 sources) Factor Xa Inhibitor Start: 04-03-2023 Xarelto [...] 2022 10:25am rOPINIRole 0.25 mg oral tablet (20 sources) Nonergot Dopamine Agonist Start: 01-03-2024 End: 01-02-2025 take 1 tablet by mouth at bedtime rOPINIRole (Requip) 0.25 MG tablet Indications: Restless legs TAKE 1 TABLET BY MOUTH AT BEDTIME 90 tablet 3 12/02/2024 Active Start: 09-26-2018 End: 06-22-2022 take 0.25 mg by mouth once daily Ropinirole Discontinued 0.25 MG PO Daily June 22, 2022 12:00am June 22, 2022 10:36am tamsulosin hydrochloride 0.4 mg oral capsule (20 sources) alpha-Adrenergic Robert Start: 08-17-2021 tamsu losin (Flomax) 0.4 MG 24 hr capsule Indications: BPH without urinary obstruction TAKE 1 CAPSULE DAILY 90 capsule 3 01/08/2024 Active Start: 09-26-2018 End: 06-02-2020 take 0.4 [...] 2020 12:00am June 02, 2020 1:26pm Balsam [place] Oil (Venelex) Ointment (2 sources) Start: 06-02-20 End: 06-22-20 Balsam [place]inder[place] Oil (Venelex) Ointment Discontinued 1 APPLIC TOPICAL [...] 2:17pm sodium hypochlorite 1.25 mg/ml topical solution (9 sources) Start: 04-26-20 End: 04-26-20 1 Application, topical, Once, On Mon04/26/24 at 1430, For 1 dose Start: 04-19-2024 End: 06-07-2024 sodium hypochlorite (DAKIN'S SOLUTION) 0.25 % external solution Indications: Hematoma of right lower leg Apply onto gauze and apply to leg ulcer two times daily. 473 mL 1 04/19/2024 06/07/2024 Discontinued (Therapy completed) 3 ml insulin aspart, human 100 unt/ml pen injector (2 sources) Insulin Analog Start: 05-07-2020 End: 06-02-2020 Insulin Aspart U-100 (Novolog Flexpen U-100 Insulin) 100 unit/mL (3 mL) Insulin Pen Discontinued 0 UNITS SUBCUT 3X/Day with meals and bedtime 0 May 07, 2020 12:00am June 02, 2020 1:26pm 3 ml insulin detemir 100 unt/ml pen injector (4 sources) Insulin Analog Start: 05-07-2020 End: 06-22-2022 Insulin Detemir U-100 (Levemir Flextouch U-100 Insuln) 100 unit/mL (3 mL) Insulin Pen Discontinued 12 UNITS SUBCUT Daily 10 30June 02, 2020 12:00am June 22, 2022 10:23am lidocaine 25 mg/ml / prilocaine 25 mg/ml topical cream (4 sources) Antiarrhythmic, Amide Local Anesthetic Start: 07-05-2024 End: 07-05-2024 1 Application, topical, Once, On Mon07/05/24 at 1415, For 1 dose, If no allergy, apply topically to wounds with each wound care appointment with practitioner for pain control. Start: 05-17-2024 End: 05-17-2024 1 Application, topical, Once , On Mon05/17/24 at 1430, For 1 dose, If no allergy, apply topically to wounds with each wound care appointment with practitioner for pain control. Start: 05-03-2024 End: 05-03-2024 1 Application, topical, Once , On Mon05/03/24 at 1430, For 1 dose, If no allergy, apply topically to wounds with each wound care appointment with practitioner for pain control. Start: 04-26-2024 End: 04-26-2024 1 Application, topical, Once , On Mon04/26/24 at 1415, For 1 dose, If no allergy, apply topically to wounds with each wound care appointment with practitioner for pain control. lisinopril 40 mg oral tablet (20 sources) Angiotensin Converting Enzyme Inhibitor Start: 09-26-2018 End: 04-24-2020 take 1 tablet by mouth once daily Lisinopril Discontinued 1 TAB PO Daily September 25, 2018 11:00pm April 24, 2020 2:17pm End: 01-02-2025 lisinopril 40 MG tablet Oral for 90 01/02/2025 Discontinued suprep bowel prep kit 17.5-3.13-1.6 gm/177ml solution [...] SUPREP NOT COVERED BY INS Aug, Active 1 ml methylPREDNISolone acetate 40 mg/ml injection (20 sources) Corticosteroid Start: 09-04-2024 End: 09-04-2024 methylPREDNISolone acetate (DEPO-Medrol) injection 40 mg Start: 09-04-2024 End: 09-04-2024 40 mg, Intra-articular, Once PRN Procedure, Starting on Mon09/04/24 at 1354, For 1 dose Start: 07-08-2024 End: 01-02-2025 methylPREDNISolone (Medrol D ospak) 4 MG tablets Indications: Impingement of left shoulder Follow schedule on package instructions 21 tablet 07/08/2024 01/02/2025 Discontinued Start: 07-08-2024 methylPREDNISo lone (Medrol Dospak) 4 MG tablets Indications: Impingement of left shoulder Follow schedule on package instructions 21 tablet 07/08/2024 Active mupirocin 0.02 mg/mg topical ointment (2 [...] 2020 2:18pm torsemide 5 mg oral tablet (13 sources) Loop Diuretic Start: 09-26-2018 End: 04-24-2020 [...] of daily living] 05-08-2020 Episodic Anxiety disorders (13 sources) Anxiety; Translations: [Anxiety disorder, unspecified] Onset: 10-18-2023 05-09-2020 Chronic Cancer of prostate (11 sources) Carcinoma of prostate; Translations: [Malignant neoplasm of prostate] Onset: 05-17-2019 04-19-2024 Chronic Cancer of prostate (1 source) Personal history of malignant neoplasm of prostate; Translations: [PERSONAL HX MALIG NEOPLASM PROSTATE] Onset: 11-22-2022 Episodic Cardiac dysrhythmias (20 sources) Paroxysmal atrial fibrillation; Translations: [Paroxysmal atrial fibrillation] Onset: 03-22-2022 Chronic Chronic kidney disease (20 sources) Chronic kidney disease, unspecified; Translations: [Chronic kidney disease stage 3B ] Onset: 05-17-2019 12-04-2023 Chronic Chronic kidney disease (4 sources) Chronic kidney disease; Translations: [CHRONIC KIDNEY DISEASE STAGE 3B] Onset: 08-12-2022 Chronic ulcer of skin (20 sources) Ulcer of lower extremity; Translations: [Non-pressure chronic ulcer of unspecified part of right lower leg with fat layer exposed] Onset: 04-19-2024 06-21-2024 Chronic Conduction disorders (20 sources) Unspecified right bundle-branch block; Translations: [Presence of cardiac pacemaker] Onset: 12-20-2021 11-03-2023 Chronic Congestive heart failure; nonhypertensive (20 sources) Acute on chronic diastolic (congestive) heart failure; Translations: [Chronic heart failure co-occurrent with normal ejection fraction] Onset: 11-17-2022 Chronic Coronary atherosclerosis and other heart disease (2 sources) Atherosclerotic heart disease of rincon coronary artery without angina pectoris; Translations: [Atherosclerotic heart disease of rincon coronary artery without angina pectoris] Onset: 11-07-2024 Chronic Deficiency and other anemia (1 source) Iron deficiency anemia due to blood loss; Translations: [Iron deficiency anemia secondary to blood loss (chronic)] 05-01-2024 Chronic Diabetes mellitus with complications (20 sources) Type 2 diabetes mellitus with diabetic chronic kidney disease; Translations: [Type 2 diabetes mellitus with hyperglycemia] Onset: 12-14-2021 Chronic Diabetes mellitus without complication (1 source) Type 2 diabetes mellitus without complications; Translations: [TYPE 2 DM WITHOUT COMPLICATIONS] Onset: 12-20-2021 Chronic Diseases of white blood cells (13 sources) Leukocytosis; Translations: [Elevated white blood cell count, unspecified] Onset: 10-18-2023 05-08-2020 Chronic Disorders of lipid metabolism (20 sources) Hyperlipidemia, unspecified; Translations: [Dyslipidemia] Onset: 12-16-2021 11-03-2023 Chronic E Codes: Natural/environment (1 source) Bitten by cat, initial encounter Episodic Esophageal disorders (20 sources) Gastroesophageal reflux disease; Translations: [Gastro-esophageal reflux disease without esophagitis] Onset: 11-03-2023 11-03-2023 Chronic Essential hypertension (20 sources) Essential hypertension; Translations: [Essential (primary) hypertension] Onset: 05-17-2019 Chronic Heart valve disorders (20 sources) Presence of prosthetic heart valve; Translations: [Nonrheumatic aortic (valve) stenosis] Onset: 12-18-2020 Chronic Hyperplasia of prostate (20 sources) Benign prostatic hypertrophy without outflow obstruction; Translations: [Benign prostatic hyperplasia without lower urinary tract symptoms] Onset: 11-03-2023 11-03-2023 Chronic Hypertension with complications and secondary hypertension (3 sources) Hypertensive chronic kidney disease with stage 1 through stage 4 chronic kidney disease, or unspecified chronic kidney disease; Translations: [Hypertensive heart disease with heart failure] Onset: 05-16-2022 Chronic Occlusion or stenosis of precerebral arteries (11 sources) Carotid atherosclerosis; Translations: [Occlusion and stenosis of unspecified carotid artery] Onset: 05-17-2019 04-19-2024 Chronic Osteoarthritis (20 sources) Arthritis of right knee; Translations: [Unilateral primary osteoarthritis, right knee] Onset: 06-08-2022 04-19-2024 Chronic Other acquired deformities (2 sources) Eugenio legged; Translations: [Varus deformity, not elsewhere classified, left knee] 09-04-2024 Episodic Other aftercare (3 sources) Long-term current use of anticoagulant; Translations: [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] Episodic Other hereditary and degenerative nervous system conditions (2 sources) Restless legs; Translations: [Restless legs syndrome] 05-19-2020 Chronic Other nervous system disorders (18 sources) Cervical myelopathy; Translations: [Disease of spinal cord, unspecified] Onset: 10-18-2023 04-30-2020 Chronic Other nervous system disorders (6 sources) Carpal tunnel syndrome; Translations: [Carpal tunnel syndrome, bilateral upper limbs] 07-06-2022 Chronic Other nervous system disorders (15 sources) Carpal tunnel syndrome of left wrist; [...] [Other acute postprocedural pain] 05-08-2020 Episodic Other non-traumatic joint disorders (5 sources) Derangement of right shoulder joint; Translations: [Other specific joint derangements of right shoulder, not elsewhere classified] 07-29-2024 Chronic Other non-traumatic joint disorders (2 sources) Rotator cuff arthropathy of right shoulder; Translations: [Other specific arthropathies, not elsewhere classified, right shoulder] 08-21-2024 Chronic Other non-traumatic joint disorders (2 sources) Arthritis of left knee 09-05-2024 Chronic Other non-traumatic joint disorders (3 sources) Pain in right knee; Translations: [Pain in joint, lower leg] Onset: 05-01-2021 Resolved: 05-01-2021 Episodic Other non-traumatic joint disorders (4 sources) Pain in left shoulder; Translations: [Pain in joint, shoulder region] 07-08-2024 Episodic Other non-traumatic joint disorders (4 sources) Disorder of shoulder; Translations: [Other specified joint disorders, left shoulder] 07-08-2024 Episodic Other non-traumatic joint disorders (2 sources) Pain in right shoulder; Translations: [Pain in joint, shoulder region] 07-29-2024 Episodic Other non-traumatic joint disorders (2 sources) Pain in left knee; Translations: [Pain in joint, lower leg] 09-03-2024 Episodic Other non-traumatic joint disorders (2 sources) Instability of joint of left knee; Translations: [Other instability, left knee] 09-04-2024 Episodic Other upper respiratory disease (11 sources) Chronic rhinitis; Translations: [Chronic rhinitis] Onset: 07-25-2022 07-25-2022 Chronic Other upper respiratory disease (1 source) Allergic rhinitis due to pollen; Translations: [Allergic rhinitis due to pollen] 08-14-2024 Chronic Paralysis (13 sources) Tetraplegia; Translations: [Quadriplegia, C5-C7 incomplete] Onset: 10-18-2023 05-08-2020 Chronic Peripheral and visceral atherosclerosis (20 sources) Peripheral vascular disease; Translations: [Peripheral vascular [...] W/AND (SUSP) EXPOS COVID-19] Onset: 12-20-2021 Unclassified (4 sources) Bilateral chronic pain of upper limbs 07-04-2024 Unclassified (1 source) Wound Check Onset: 04-19-2024 Past or Other Problems Problem Classification Problem Date Documented Da te Episodic/Chronic Complications of surgical procedures or medical care (4 sources) Postprocedural hemorrhage of skin and subcutaneous tissue following a dermatologic procedure; Translations: [POSTP H SKIN AND SC TISS FLW DERM PCR] Onset: 05-12-2022 Episodic Mood disorders (20 sources) Recurrent major depressive episodes, mild ; Translations: [Major depressive disorder, recurrent, mild] Onset: 11-03-2023 Resolved: 12-04-2023 12-04-2023 Chronic Open wounds of extremities (12 sources) Open bite of left hand, initial encounter; Translations: [Laceration of lower leg without foreign body] Onset: 06-08-2022 Episodic Open wounds of extremities (20 sources) Injury of right leg; Translations: [Unspecified open wound, right lower leg, subsequent encounter] Onset: 04-10-2024 Resolved: 01-02-2025 04-10-2024 Episodic Other aftercare (2 sources) alf (current) use of anticoagulants; Translations: [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] Onset: 05-16-2022 Episodic Other aftercare (1 source) 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; Translations: [OTH M[facility] CURRENT DRUG THERAPY] Onset: 05-16-2022 Episodic Other aftercare (1 source) alf (current) use of aspirin; 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] Onset: 05-16-2022 Episodic Other aftercare (20 sources) Long-term current use of drug therapy; Translations: [Other mcc (current) drug therapy] Onset: 12-04-2023 12-04-2023 Episodic Other and unspecified benign neoplasm (13 sources) History of polyp of colon; Translations: [Personal history of colonic polyps] Onset: 10-18-2023 10-02-2018 Episodic Other circulatory disease (10 sources) Orthostatic hypotension; Translations: [Orthostatic hypotension] Onset: 10-18-2023 05-22-2020 Episodic Other connective tissue disease (1 source) Arthrodesis status Onset: 03-18-2022 Resolved: 03-18-2022 Episodic Other connective tissue disease (3 sources) Facial weakness; Translations: [FACIAL WEAKNESS] Onset: 12-15-2021 Episodic Other gastrointestinal disorders (13 sources) Dysphagia; Translations: [Dysphagia, unspecified] Onset: 10-18-2023 05-11-2020 Episodic Other lower respiratory disease (1 source) Other nonspecific abnormal finding of lung field; Translations: [OTH NONSPECIFIC ABN FIND LNG FIELD] Onset: 04-06-2022 Episodic Other male genital disorders (20 sources) Hemospermia; Translations: [Hematospermia] Onset: 02-14-2023 11-03-2023 Episodic Other nervous system disorders (20 sources) Abnormal gait; Translations: [Unspecified abnormalities of gait and mobility] Onset: 10-18-2023 05-08-2020 Episodic Other nervous system disorders (1 source) Cedeño's palsy; 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] Onset: 12-20-2021 Episodic Other nervous system disorders (20 sources) Cedeño's palsy; 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] Onset: 11-03-2023 11-03-2023 Episodic Other non-traumatic joint disorders (1 source) Pain in right ankle and joints of right foot; Translations: [Acute right ankle pain M25.571] Onset: 05-01-2021 Resolved: 05-01-2021 Episodic Other non-traumatic joint disorders (20 sources) Bilateral chronic pain of upper limbs; Translations: [Pain in right shoulder] Onset: 07-04-2024 07-04-2024 Episodic Other screening for suspected conditions (not mental disorders or infectious disease) (1 source) Encounter for screening for malignant neoplasm of prostate; Translations: [ENC SCREEN MALIG NEOPLASM PROSTATE] Onset: 12-16-2021 Episodic Phlebitis; thrombophlebitis and thromboembolism (20 sources) Bilateral deep vein thrombosis of lower extremities; Translations: [Acute embolism and thrombosis of unspecified deep veins of lower extremity, bilateral] Onset: 11-03-2023 11-03-2023 Episodic Residual codes; unclassified (20 sources) Patient encounter status; Translations: [Encounter for prophylactic measures, unspecified] Onset: 12-04-2023 05-08-2020 Episodic Residual codes; unclassified (20 sources) Bilateral lower limb edema; Translations: [Localized edema] Onset: 11-03-2023 Resolved: 01-02-2025 11-03-2023 Episodic Residual codes; unclassified (1 source) Localized edema; Translations: [Localized edema] Onset: 04-19-2024 Episodic Screening and history of mental health and substance abuse codes (1 source) Personal history of nicotine dependence; Translations: [PERSONAL HISTORY OF NICOTINE DEPEND] Onset: 05-16-2022 Episodic Skin and subcutaneous tissue infections (20 sources) Cellulitis of lower leg; Translations: [Cellulitis of right lower limb] Onset: 03-28-2024 Resolved: 07-04-2024 03-28-2024 Episodic Spondylosis; intervertebral disc disorders; other back problems (20 sources) Spinal stenosis, cervical region; Translations: [Degenerative cervical spinal stenosis] Onset: 01-28-2022 11-03-2023 Episodic Sprains and strains (2 sources) Sprain of unspecified site of right knee, initial encounter; Translations: [Sprain of unspecified ligament of right ankle, initial encounter] Onset: 05-01-2021 Resolved: 05-01-2021 Episodic Superficial injury; contusion (6 sources) Contusion of right lower leg, initial encounter; Translations: [Hematoma of right lower leg] Onset: 04-26-2024 04-19-2024 Episodic Unclassified (1 source) LOW BACK PAIN, UNSPECIFIED; Translations: [LOW BACK PAIN, UNSPECIFIED] Onset: 11-14-2022 Unclassified (1 source) CONTACT W/AND (SUSP) EXPOS COVID-19; Translations: [CONTACT W/AND (SUSP) EXPOS COVID-19] Onset: 04-19-2022 Unclassified (4 sources) Acute pain of right knee 09-05-2024 Results Test Name Value Interpretation Reference Range Facility [facility] CBC WITH PLATELET NO DI FFERENTIALon 12-13-2024 Erythrocyte distribution width (RBC) [Ratio] 14.4 % 11.0 - 15.0 % [facility] Hematocrit (Bld) [Volume fraction] 39.2 % Low 42.0 - 54.0 % [facility] Hemoglobin (Bld) [Mass/Vol] 12.8 g/dL Low 14.0 - 18.0 g/dL [facility] Interpretation and review of laboratory results Abnormal [facility] MCH (RBC) [Entitic mass] 30 pg 25.9 - 34.0 pg [facility] MCHC (RBC) [Mass/Vol] 32.7 g/dL 29.9 - 35.2 g/dL [facility] MCV (RBC) [Entitic vol] 92 fL 80.0 - 94.0 fL [facility] Platelet mean volume (Bld) [Entitic vol] 10.4 fL 9.5 - 13.5 fL [facility] TB PLT 190 [facility] TB RBC 4.26 Low [facility] WBC 6.1 [facility] Office Visiton 11-13-2024 Follow-up visit [id number] Jason Bartholomew 1945 M Date Provider Department Center 11/13/2024 [id number]-JOHNATHAN BOWMAN CARD [facility] Family History Problem Relation Age of Onset Heart failure Mother Stroke Brother Heart failure Brother Family Status - Relation Status Age at Mother Father Sister Brother Level of Service:48151 [place] OFFICE/OUTPATIENT ESTABLISHED LOW MDM 20 MIN Normal [facility] ALL CBC WITH AUTO DIFFon BASOPHILS ABSOLUTE AUTO 0 N [place] [facility] Healthcare Basophils/100 WBC (Bld) 0.6 % 0.2 - 2.0 % [facility] Eosinophils/100 WBC (Bld) 2.7 % 0.9 - 7.0 % [facility] Erythrocyte distribution width (RBC) [Ratio] 14.3 % 11.0 - 15.0 % [facility] Hematocrit (Bld) [Volume fraction] 38.9 % Low 42.0 - 54.0 % [facility] Hemoglobin (Bld) [Mass/Vol] 12.4 g/dL Low 14.0 - 18.0 g/dL [facility] IMMATURE GRANULOCYTES ABS AUTO 0.02 [facility] Immature granulocytes/100 WBC (Bld) 0.3 % 0.0 - 0.5 % [facility] Interpretation and review of laboratory results Abnormal [facility] LYMPHOCYTES ABSOLUTE AUTO 1.3 [facility] Lymphocytes/100 WBC (Bld) 19.8 % Low 20.5 - 60.0 % [facility] MCH (RBC) [Entitic mass] 29.7 pg 25.9 - 34.0 pg [facility] MCHC (RBC) [Mass/Vol] 31.9 g/dL 29.9 - 35.2 g/dL [facility] MCV (RBC) [Entitic vol] 93.1 fL 80.0 - 94.0 fL [facility] MONOCYTES ABSOLUTE AUTO 0.[address] [facility] Monocytes/100 WBC (Bld) 10.2 % 1.7 - 12.0 % [facility] NEUTROPHILS ABSOLUTE AUTO 4.4 [facility] Neutrophils/100 WBC (Bld) 66.4 % 43.0 - 75.0 % [facility] Platelet mean volume (Bld) [Entitic vol] 10.6 fL 9.5 - 13.5 fL [facility] TBH EO # 0.2 [facility]H PLT 217 [facility] RBC 4.18 Low [facility] WBC 6.6 [facility] Healthcare Office Visiton 11-07-2024 Follow-up visit [id number] Jason Bartholomew 1945 M Date Provider Department Center 11/07/2024 [id number] [facility] Hos Family History Problem Relation Age of Onset Heart failure Mother Stroke Brother Heart failure Brother Family Status - Relation Status Age at Mother Father Sister Brother Level of Service:90837 [place] OFFICE/OUTPATIENT ESTABLISHED HIGH MDM 40 MIN Normal [facility] CA ECHO DOPPLER COMPLETEon 0 10-16-2024 [place] [address] Cardiology Report Signed Patient: JASON BARTHOLOMEW MR#: [id number] : 1945 Acct:[id number] Age/Sex: 79 / M ADM Date: 10/16/24 Loc: CARD Attending Dr: Johnathan Bowman M.D. Ordering Physician: Johnathan Bowman M.D. Date of Service: 10/16/24 Procedure(s): CA echo doppler complete Accession Number(s): [id number] cc: Johnathan Bowman M.D.; Idris Jose M.D. Patient Name: JASON BARTHOLOMEW MR#: [id number] : 1945 Exam Date: 10/16/2024 Ordering Doctor: DR JOHNATHAN BOWMAN M.D. ECHOCARDIOGRAM REPORT PROCEDURE: CA ECHO DOPPLER [...] Halie Boyd M.D. on 10/16/2024 at 20:59 (more content not included)... [facility] Radiology, Radiologist, MD - 10/16/2024 [place] [address] Cardiology Report Signed Patient: JASON BARTHOLOMEW MR#: [id number] : 1945 Acct:[id number] Age/Sex: 79 / M ADM Date: 10/16/24 Loc: CARD Attending Dr: Johnathan Bowman M.D. Ordering Physician: Johnathan Bowman M.D. Date of Service: 10/16/24 Procedure(s): CA echo doppler complete Accession Number(s): [id number] cc: Johnathan Bowman M.D.; Idris Jose M.D. Patient Name: JASON BARTHOLOMEW MR#: [id number] : 1945 Exam Date: 10/16/2024 Ordering Doctor: DR JOHNATHAN BOWMAN M.D. ECHOCARDIOGRAM REPORT PROCEDURE: CA ECHO DOPPLER [...] BOYD Signed By: 10/16/242099 DD/ 58 TD/TT: Clinical Sales Consultant: [facility] [employer] Radiology Study observation (narrative) [facility] [employer] [facility] CA ECHO DOPPLER COMPLETEOrde red By: Radiologist Radiology on 10-16-2024 [facility] [employer] Work Phone: XR Knee - left 1 or 2 Viewso n 09-05-2024 Imaging Result: AP and Lateral left knee: Weight bearing Bilateral knees with bone on bone articulation medial joint line Moderate patellafemoral changes favroing arthritis Mild effusion. 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 no manipulation performed Immobilization: brace Post-procedure assessment neurovascularly intact Patient tolerance: patient tolerated the procedure well with no immediate complications Comments A left L1820 off the shelf, prefabricated, knee orthosis with condylar pads and joints with or without patellar control was dispensed, fitted, and adjusted at this visit. The function of the device is to provide support, decrease edema, control motion at the knee joint. It will redistribute pressure and allow more comfortable weight-bearing and better support. It is for increased stability of the knee joint. The goals of the device are to decrease pain decrease inflammation, increase stability and to allow the patient to ambulate independently. The device is medically necessary for the condition, symptoms and diagnosis. It was dispensed and fitted for the patient, and it fit properly. The patient was educated as to proper use and care, and this was reviewed in detail. Written instructions and warranty information were given with the device. A receipt for the device is on file. The current supplier standards were given to the patient. [facility] patient agreement was completed at time of dispensement.. The patient stated that the device was comfortable when fitted in the office and the patient was able to ambulate without distress with this knee orthosis. At the time of dispensement, the device was suitable and not substandard. [facility] REUBEN Herrera 09/05/2024 6:58 AM L Inj/Asp: R knee on 09/04/2024 1:54 PM Indications: pain Details: 22 G needle, anterolateral approach Medications: 40 mg methylPREDNISolone acetate 40 MG/ML Outcome: tolerated well, no immediate complications E UTILIZING ASEPTIC TECHNIQUE PT GIVEN INJECTION IN RIGHT KNEE, NEUROVASC INTACT S/P INJ, TOLERATED WELL Procedure, treatment alternatives, risks and benefits explained, specific risks discussed. Consent was given by the patient. [facility] REUBEN Herrera 09/05/2024 6:58 AM L Inj/Asp: L knee on 09/04/2024 1:54 PM Indications: pain Details: 22 G needle, anterolateral approach Medications: 40 mg methylPREDNISolone acetate 40 MG/ML Outcome: tolerated well, no immediate complications UTILIZING ASEPTIC TECHNIQUE PT GIVEN INJECTION IN LEFT KNEE, NEUROVASC INTACT S/P INJ, TOLERATED WELL Procedure, treatment alternatives, risks and benefits explained, specific risks discussed. Consent was given by the patient. Patient was prepped and draped in the usual sterile fashion. [facility] [employer] XR Knee - left 1 or 2 Viewso n 09-04-2024 Radiology Study observation (narrative) [facility] CT Shoulder - right W contra [facility] 08-06-2024 [place] [address] CT Scan Report Signed Patient: JASON BARTHOLOMEW MR#: [id number] : 1945 Acct:[id number] Age/Sex: 79 / M ADM Date: 08/05/24 Loc: [place] Attending Dr: BONITA LOWE LINUX SYSTEM ENGINEER Ordering Physician: BONITA LOWE NP Date of Service: 08/05/24 Procedure(s): CT Shoulder RT w contrast Accession Number(s): [id number] cc: Idris Jose M.D. [place] [address] Patient Name: JASON BARTHOLOMEW MRN: [id number] date: 1945 Sex: M Assigned Patient Location: [place] Current Patient Location: Accession/Order Number: [id number] Exam Date: 08/05/2024 13:48 Report Date: 08/06/2024 11:02 At the request of: BONITA LOWE Procedure: CT Shoulder RT w contrast Exam Type: CT RIGHT SHOULDER Exam Date and Time: 08/05/2024 1:48 PM EST Indication: 79 years old Male with pain Comparison: No recent relevant imaging TECHNIQUE: Axial CT images of the right shoulder following the uneventful intra-articular administration of contrast. See separate arthrogram report. Coronal and sagittal reformatted images were obtained. Dose reduction techniques were achieved by using automated exposure control and/or adjustment of mA and/or kV according to patient size and/or use of iterative reconstruction technique. FINDINGS: The acromioclavicular joint appears congruent with joint space narrowing, marginal osteophytes and capsular hypertrophy. Contrast fluid within the subacromial subdeltoid bursa is consistent with a full-thickness rotator cuff tear. There are full-thickness, fullwidth tears of the supraspinatus and infraspinatus tendons with proximal retraction the glenoid. The teres minor tendon appears intact. The subscapularis tendon demonstrates full-thickness, near full width tearing. Atrophy of the supraspinatus, infraspinatus and subscapularis muscles. Intracapsular biceps tendon is not confidently identified and potentially torn. The humerus is high riding on the glenoid. Moderate osteoarthritis of the glenohumeral joint with joint space narrowing marginal osteophytes. No axillary lymphadenopathy. Limited evaluation of the right hemithorax is without acute or suspicious abnormality. CT/CT Shoulder RT w contrast IMPRESSION: 1. Massive rotator cuff tear. 2. Probable intracapsular biceps tendon rupture. 3. Moderate acromioclavicular and glenohumeral osteoarthritis. No fracture. Electronically authenticated by: ROBERTO POLLARD Date: 08/06/2024 11:02 Dictated By: Roberto Pollard M.D. Signed By: 08/06/24 1104 DD/ 1102 TD/TT: Clinical Sales Consultant: [facility] Radiology, Radiologist, MD - 08/06/2024 [place] [address] CT Scan Report Signed Patient: JASON BARTHOLOMEW MR#: [id number] : 1945 Acct:[id number] Age/Sex: 79 / M ADM Date: 08/05/24 Loc: [place] Attending Dr: BONITA LOWE NP Ordering Physician: BONITA LOWE NP Date of Service: 08/05/24 Procedure(s): CT Shoulder RT w contrast Accession Number(s): [id number] cc: Idris Jose M.D. [facility] [place] [id number] Patient Name: JASON BARTHOLOMEW MRN: [facility]:[id number] date: 1945 Sex: M Assigned Patient Location: [place] Current Patient Location: Accession/Order Number: [id number] Exam Date: 08/05/2024 13:48 Report Date: 08/06/2024 11:02 At the request of: BONITA LOWE Procedure: CT Shoulder RT w contrast Exam Type: CT RIGHT SHOULDER Exam Date and Time: 08/05/2024 1:48 PM EST Indication: 79 years old Male with pain Comparison: No recent relevant imaging TECHNIQUE: Axial CT images of the right shoulder following the uneventful intra-articular administration of contrast. See separate arthrogram report. Coronal and sagittal reformatted images were obtained. Dose reduction techniques were achieved by using automated exposure control and/or adjustment of mA and/or kV according to patient size and/or use of iterative reconstruction technique. FINDINGS: The acromioclavicular joint appears congruent with joint space narrowing, marginal osteophytes and capsular hypertrophy. Contrast fluid within the subacromial subdeltoid bursa is consistent with a full-thickness rotator cuff tear. There are full-thickness, fullwidth tears of the supraspinatus and infraspinatus tendons with proximal retraction the glenoid. The teres minor tendon appears intact. The subscapularis tendon demonstrates full-thickness, near full width tearing. Atrophy of the supraspinatus, infraspinatus and subscapularis muscles. Intracapsular biceps tendon is not confidently identified and potentially torn. The humerus is high riding on the glenoid. Moderate osteoarthritis of the glenohumeral joint with joint space narrowing marginal osteophytes. No axillary lymphadenopathy. Limited evaluation of the right hemithorax is without acute or suspicious abnormality. CT/CT Shoulder RT w contrast IMPRESSION: 1. Massive rotator cuff tear. 2. Probable intracapsular biceps tendon rupture. 3. Moderate acromioclavicular and glenohumeral osteoarthritis. No fracture. Electronically authenticated by: ROBERTO POLLARD Date: 08/06/2024 11:02 Dictated By: Roberto Pollard M.D. Signed By: 08/06/24 1104 DD/ 1102 TD/TT: Clinical Sales Consultant: [facility] [employer] Radiology Study observation (narrative) [facility] CT Shoulder - right W contra st IVOrdered By: Radiologist Radiology on 08-06-2024 [facility] [employer] Work Phone: No Panel InformationOrdered By: Radiologist Radiology on 08-05-2024 [facility] [employer] Work Phone: No Panel Informationon 08-05 Radiology Study observation (narrative) [facility] [employer] RF Guidance for fine needle aspiration of Unspecified body regionon 08-05-2024 [place] [address] Fluoroscopy Report Signed Patient: JASON BARTHOLOMEW MR#: [id number] : 1945 Acct:[id number] Age/Sex: 79 / M ADM Date: 08/05/24 Loc: [place] Attending Dr: BONITA LOWE NP Ordering Physician: BONITA LOWE NP Date of Service: 08/05/24 Procedure(s): FL guided needle placement Accession Number(s): [id number] cc: BONITA LOWE LINUX SYSTEM ENGINEER; Idris Jose M.D. [place] [address] Patient Name: JASON BARTHOLOMEW MRN: [facility]:[id number] date: 1945 Sex: M Assigned Patient Location: [place] Current Patient Location: [place] Accession/Order Number: [id number] Exam Date: 08/05/2024 12:50 Report Date: 08/05/2024 15:56 At the request of: BONITA LOWE Procedure: FL guided needle placement EXAMINATION: FL arthrogram shoulder, FL guided needle placement HISTORY: Shoulder Pain FLUORO DOSE: Cannot be calculated. mGy Reference air kerma (Ka,r) COMPARISON: No relevant comparison available. TECHNIQUE: An arthrogram was performed under fluoroscopic guidance using non-ionic contrast material in the usual sterile manner after obtaining informed consent. Standard level fluoroscopic mode of operation utilized. FINDINGS: JOINT: Right shoulder NEEDLE: 25 gauge, 3.5 spinal needle. MEDICATION: 2 mL buffered 1% lidocaine for subcutaneous anesthesia. Approximately 6 mL injected into joint space consisting of a mixture of 5 mL Omnipaque-240 and 5 mL 1% Xylocaine. TECHNIQUE: Anterior approach under fluoroscopic guidance. CLINICAL: No significant pain prior to injection or change in pain following the injection. COMPLICATIONS: None. OTHER: Negative. FL/FL guided needle placement IMPRESSION: 1. Technically successful arthrogram without complication. 2. Please see separate CT arthrogram report. Electronically authenticated by: PAPITO GUAMAN Date: 08/05/2024 15:56 Dictated By: Papito Guaman M.D. Signed By: 08/05/24 1559 DD/ 1556 TD/TT: Clinical Sales Consultant: [facility] Radiology, Radiologist, - 08/05/2024 [place] [address] Fluoroscopy Report Signed Patient: JASON BARTHOLOMEW MR#: [id number] : 1945 Acct:[id number] Age/Sex: 79 / M ADM Date: 08/05/24 Loc: [place] Attending Dr: BONITA LOWE LINUX SYSTEM ENGINEER Ordering Physician: BONITA LOWE NP Date of Service: 08/05/24 Procedure(s): FL guided needle placement Accession Number(s): [id number] cc: BONITA LOWE LINUX SYSTEM ENGINEER; Idris Jose M.D. [facility] [place] [id number] Patient Name: JASON BARTHOLOMEW MRN: [facility]:[id number] date: 1945 Sex: M Assigned Patient Location: [place] Current Patient Location: [place] Accession/Order Number: [id number] Exam Date: 08/05/2024 12:50 Report Date: 08/05/2024 15:56 At the request of: BONITA LOWE Procedure: FL guided needle placement EXAMINATION: FL arthrogram shoulder, FL guided needle placement HISTORY: Shoulder Pain FLUORO DOSE: Cannot be calculated. mGy Reference air kerma (Ka,r) COMPARISON: No relevant comparison available. TECHNIQUE: An arthrogram was performed under fluoroscopic guidance using non-ionic contrast material in the usual sterile manner after obtaining informed consent. Standard level fluoroscopic mode of operation utilized. FINDINGS: JOINT: Right shoulder NEEDLE: 25 gauge, 3.5 spinal needle. MEDICATION: 2 mL buffered 1% lidocaine for subcutaneous anesthesia. Approximately 6 mL injected into joint space consisting of a mixture of 5 mL Omnipaque-240 and 5 mL 1% Xylocaine. TECHNIQUE: Anterior approach under fluoroscopic guidance. CLINICAL: No significant pain prior to injection or change in pain following the injection. COMPLICATIONS: None. OTHER: Negative. FL/FL guided needle placement IMPRESSION: 1. Technically successful arthrogram without complication. 2. Please see separate CT arthrogram report. Electronically authenticated by: PAPITO GUAMAN Date: 08/05/2024 15:56 Dictated By: Papito Guaman M.D. Signed By: 08/05/24 1559 DD/ 1556 TD/TT: Clinical Sales Consultant: [facility] [place] [address] Fluoroscopy Report Signed Patient: JASON BARTHOLOMEW MR#: [id number] : 1945 Acct:[id number] Age/Sex: 79 / M ADM Date: 08/05/24 Loc: [place] Attending Dr: BONITA LOWE LINUX SYSTEM ENGINEER Ordering Physician: BONITA LOWE NP Date of Service: 08/05/24 Procedure(s): FL arthrogram shoulder Accession Number(s): [id number] cc: BONITA LOWE NP; Idris Jose M.D. [place] [address] Patient Name: JASON BARTHOLOMEW MRN: [id number] date: 1945 Sex: M Assigned Patient Location: [place] Current Patient Location: [place] Accession/Order Number: [id number] Exam Date: 08/05/2024 12:50 Report Date: 08/05/2024 15:56 At the request of: BONITA LOWE Procedure: FL arthrogram shoulder EXAMINATION: FL arthrogram shoulder, FL guided needle placement HISTORY: Shoulder Pain FLUORO DOSE: Cannot be calculated. mGy Reference air kerma (Ka,r) COMPARISON: No relevant comparison available. TECHNIQUE: An arthrogram was performed under fluoroscopic guidance using non-ionic contrast material in the usual sterile manner after obtaining informed consent. Standard level fluoroscopic mode of operation utilized. FINDINGS: JOINT: Right shoulder NEEDLE: 25 gauge, 3.5 spinal needle. MEDICATION: 2 mL buffered 1% lidocaine for subcutaneous anesthesia. Approximately 6 mL injected into joint space consisting of a mixture of 5 mL Omnipaque-240 and 5 mL 1% Xylocaine. TECHNIQUE: Anterior approach under fluoroscopic guidance. CLINICAL: No significant pain prior to injection or change in pain following the injection. COMPLICATIONS: None. OTHER: Negative. FL/FL arthrogram shoulder IMPRESSION: 1. Technically successful arthrogram without complication. 2. Please see separate CT arthrogram report. Electronically authenticated by: PAPITO GUAMAN Date: 08/05/2024 15:56 Dictated By: Papito Guaman M.D. Signed By: 08/05/24 1559 DD/ 1556 TD/TT: Clinical Sales Consultant: [facility] Radiology, Radiologist, - 08/05/2024 [place] [address] Fluoroscopy Report Signed Patient: JASON BARTHOLOMEW MR#: [id number] : 1945 Acct:[id number] Age/Sex: 79 / M ADM Date: 08/05/24 Loc: [place] Attending Dr: BONITA LOWE NP Ordering Physician: BONITA LOWE NP Date of Service: 08/05/24 Procedure(s): FL arthrogram shoulder Accession Number(s): [id number] cc: BONITA LOWE LINUX SYSTEM ENGINEER; Idris Jose M.D. [address] [place] [id number] Patient Name: JASON BARTHOLOMEW MRN: [facility]:[id number] date: 1945 Sex: M Assigned Patient Location: [place] Current Patient Location: [place] Accession/Order Number: [id number] Exam Date: 08/05/2024 12:50 Report Date: 08/05/2024 15:56 At the request of: BONITA LOWE Procedure: FL arthrogram shoulder EXAMINATION: FL arthrogram shoulder, FL guided needle placement HISTORY: Shoulder Pain FLUORO DOSE: Cannot be calculated. mGy Reference air kerma (Ka,r) COMPARISON: No relevant comparison available. TECHNIQUE: An arthrogram was performed under fluoroscopic guidance using non-ionic contrast material in the usual sterile manner after obtaining informed consent. Standard level fluoroscopic mode of operation utilized. FINDINGS: JOINT: Right shoulder NEEDLE: 25 gauge, 3.5 spinal needle. MEDICATION: 2 mL buffered 1% lidocaine for subcutaneous anesthesia. Approximately 6 mL injected into joint space consisting of a mixture of 5 mL Omnipaque-240 and 5 mL 1% Xylocaine. TECHNIQUE: Anterior approach under fluoroscopic guidance. CLINICAL: No significant pain prior to injection or change in pain following the injection. COMPLICATIONS: None. OTHER: Negative. FL/FL arthrogram shoulder IMPRESSION: 1. Technically successful arthrogram without complication. 2. Please see separate CT arthrogram report. Electronically authenticated by: PAPITO GUAMAN Date: 08/05/2024 15:56 Dictated By: Papito Guaman M.D. Signed By: 08/05/24 1559 DD/ 1556 TD/TT: Clinical Sales Consultant: [facility] XR Shoulder - left 2 Viewson 07-09-2024 [facility] Imaging Result: AP, and scapular Y of left shoulder show humeral head to be well centered in the glenoid fossa without evidence of fracture or dislocation or degeneration. Metallic rotator cuff anchors appear without complication to the proximal humerus. The acromioclavicular joint was on remarkable. Cardiac device noted. Lung harrington visualized on today's x-ray showed excellent lung markings. Impression no acute bony process left shoulder. [facility] XR Shoulder - left 2 ViewsOr dered By: Jr. Felton on 07-09-2024 [facility] Work Phone: XR Shoulder - left 2 Viewson 07-08-2024 Radiology Study observation (narrative) [facility] No Panel Informationon 07-05 Applied in clinic today MANUALLY TRANSCRIBED RESULTS [facility] No Panel Informationon 06-21 Applied in clinic today MANUALLY TRANSCRIBED RESULTS [facility] No Panel Informationon 06-07 Applied in clinic today MANUALLY TRANSCRIBED RESULTS No Panel InformationOrdered By: Amita Stevens on 06-07-2024 [facility] No Panel Informationon 05-17 Applied in clinic today MANUALLY TRANSCRIBED RESULTS [facility] No Panel Informationon 05-03 Applied in clinic today MANUALLY TRANSCRIBED RESULTS [facility] ALL CBC WITH AUTO DIFFon BASOPHILS ABSOLUTE AUTO [address] [facility] Basophils/100 WBC (Bld) 0.5 % 0.2 - 2.0 % [facility] Eosinophils/100 WBC (Bld) 1.7 % 0.9 - 7.0 % [facility] Erythrocyte distribution width (RBC) [Ratio] 19.1 % High 11.0 - 15.0 % [facility] Hematocrit (Bld) [Volume fraction] 32.5 % Low 42.0 - 54.0 % [facility] Hemoglobin (Bld) [Mass/Vol] 10.5 g/dL Low 14.0 - 18.0 g/dL [facility] IMMATURE GRANULOCYTES ABS AUTO 0.01 [facility] Immature granulocytes/100 WBC (Bld) 0.2 % 0.0 - 0.5 % [facility] Interpretation and review of laboratory results Abnormal [facility] LYMPHOCYTES ABSOLUTE AUTO 1.2 [facility] Lymphocytes/100 WBC (Bld) 18.3 % Low 20.5 - 60.0 % [facility] MCH (RBC) [Entitic mass] 28.6 pg 25.9 - 34.0 pg [facility] MCHC (RBC) [Mass/Vol] 32.3 g/dL 29.9 - 35.2 g/dL [facility] MCV (RBC) [Entitic vol] 88.6 fL 80.0 - 94.0 fL [facility] MONOCYTES ABSOLUTE AUTO 0.[address] [facility] Monocytes/100 WBC (Bld) 9.6 % 1.7 - 12.0 % [facility] NEUTROPHILS ABSOLUTE AUTO 4.6 [facility] Neutrophils/100 WBC (Bld) 69.7 % 43.0 - 75.0 % [facility] Platelet mean volume (Bld) [Entitic vol] 10.4 fL 9.5 - 13.5 fL [facility]H EO # 0.1 [facility] PLT 232 [facility] RBC 3.67 Low [facility] WBC 6.6 [facility] Healthcare Office Visiton 04-29-2024 Follow-up visit [id number] Jason Bartholomew 1945 M Date Provider Department Center 04/29/2024 [facility] Family History Problem Relation Age of Onset Heart failure Mother Stroke Brother Heart failure Brother Family Status - Relation Status Age at Mother Brother Level of Service:45176 OK OFFICE/OUTPATIENT ESTABLISHED MOD MDM 30 MIN Normal [facility] Non-Adhesive [place] 04-26-2024 Applied in clinic today MANUALLY TRANSCRIBED RESULTS [facility] ALL URINALYSISon 03-06-2024 BILIRUBIN URINE Negative NEGATIVE [facility] BLOOD URINE Negative NEGATIVE [facility] Clarity (U) CLEAR CLEAR [facility] Color (U) LT. YELLOW YELLOW [facility] GLUCOSE URINE UA Negative NEGATIVE mg/dL [facility] Ketones Ql (U) Negative NEGATIVE mg/dL [facility] Leukocyte esterase Test strip Ql (U) Negative NEGATIVE [facility] NITRITE URINE Negative NEGATIVE [facility] pH (U) 6.0 [pH] 5.0 - 9.0 [facility] PROTEIN URINE Negative NEG/TRACE mg/dL [facility] SPECIFIC GRAVITY URINE 1.010 1.005 - 1.025 [facility] UROBILINOGEN URINE 0.2 EU/dL 0.2 - 1.0 EU/dL [facility] HMHP CBC WITH PLATELET NO DI FFERENTIALon 08-09-2023 Erythrocyte distribution width (RBC) [Ratio] 15.3 % High 11.0 - 15.0 % [facility] Hematocrit (Bld) [Volume fraction] 35.7 % Low 42.0 - 54.0 % [facility] Hemoglobin (Bld) [Mass/Vol] 11.0 g/dL Low 14.0 - 18.0 g/dL [facility] Interpretation and review of laboratory results Abnormal [facility] MCH (RBC) [Entitic mass] 27.0 pg 25.9 - 34.0 pg [facility] MCHC (RBC) [Mass/Vol] 30.8 g/dL 29.9 - 35.2 g/dL [facility] MCV (RBC) [Entitic vol] 87.7 fL 80.0 - 94.0 fL [facility] Platelet mean volume (Bld) [Entitic vol] 10.9 fL 9.5 - 13.5 fL [facility] TB PLT 244 [facility] RBC 4.07 Low [facility] WBC 7.4 [facility] PROF CHEM 8 (BAS METB)on Anion gap [Moles/Vol] 11.0 mmol/L Normal [facility] Comment on above: Performed By: #### M G, BMP, URIC, ALB, PHOS #### [facility] [address] [address] [address] Terence Love Calcium [Mass/Vol] 9.2 mg/dL Normal 8.5-10.1 [facility] Comment on above: Performed By: #### M G, BMP, URIC, ALB, PHOS #### [facility] [address] [place] [address] Dr. Terence Love Chloride [Moles/Vol] 101 mmol/L Normal 98-107 [facility] Comment on above: Performed By: #### M G, BMP, URIC, ALB, PHOS #### [facility] [address] [place] [address] Dr. Terence Love CO2 [Moles/Vol] 32.1 mmol/L Critically high 21.0-32.0 [facility] Comment on above: Performed By: #### M G, BMP, URIC, ALB, PHOS #### [facility] [address] [place] [address] Dr. Terence Love Creatinine [Mass/Vol] 1.70 mg/dL Critically high 0.70-1.30 [facility] Comment on above: Performed By: #### M G, BMP, URIC, ALB, PHOS #### [facility] [address] [place] [address] Dr. Terence Love EGFR-AF MOROCCAN 47 mL/min/1.73m2 Critically low >=60 [facility] Comment on above: Performed By: #### M G, BMP, URIC, ALB, PHOS #### [facility] [address] [place] [address] Dr. Terence Love EGFR-NON AF MOROCCAN 39 mL/min/1.73m2 Critically low >=60 [facility] Comment on above: Performed By: #### M G, BMP, URIC, ALB, PHOS #### [facility] [address] [place] [address] Dr. Terence Love Glucose [Mass/Vol] 188 mg/dL Critically high 74-106 [facility] Comment on above: Performed By: #### M G, BMP, URIC, ALB, PHOS #### [facility] [address] [place] [address] Dr. Terence Love Potassium [Moles/Vol] 4.1 mmol/L Normal 3.5-5.1 [facility] Comment on above: Performed By: #### M G, BMP, URIC, ALB, PHOS #### [facility] [address] [place] [address] Dr. Terence Love Sodium [Moles/Vol] 140 mmol/L Normal 136-145 [facility] Comment on above: Performed By: #### M G, BMP, URIC, ALB, PHOS #### [facility] [address] [place] [address] Dr. Terence Love Urea nitrogen [Mass/Vol] 26.0 mg/dL Critically high 7.0-18.0 [facility] Comment on above: Performed By: #### M G, BMP, URIC, ALB, PHOS #### [facility] [address] [place] [address] Dr. Terence Love Urea nitrogen/Creatinine [Mass ratio] 15.3 mg/mg Normal [facility] Comment on above: Performed By: #### M G, BMP, URIC, ALB, PHOS #### [facility] [address] [place] [address] Dr. Terence Love BNPon 11-17-2022 Natriuretic peptide B (Bld) [Mass/Vol] 305.0 pg/mL Normal <=1,800.0 [facility] Comment on above: Performed By: #### M G, BMP, URIC, ALB, PHOS #### [facility] [address] [place] [address] Dr. Terence Love CBC AUTO DIFFon 11-17-2022 BASO # 0.0 103/ul Normal 0.0-0.1 [facility] Comment on above: Performed By: #### M G, BMP, URIC, ALB, PHOS #### [facility] [address] [place] [address] Dr. Terence Love Basophils/100 WBC (Bld) 0.5 % Normal 0.2-2.0 [facility] Comment on above: Performed By: #### M G, BMP, URIC, ALB, PHOS #### [facility] [address] [place] [address] Dr. Terence Love EO # 0.1 103/ul Normal 0.0-0.7 [facility] Comment on above: Performed By: #### M G, BMP, URIC, ALB, PHOS #### [facility] [address] [place] [address] Dr. Terence Love Eosinophils/100 WBC (Bld) 2.0 % Normal 0.9-7.0 [facility] Comment on above: Performed By: #### M G, BMP, URIC, ALB, PHOS #### [facility] [address] [place] [address] Dr. Terence Love Erythrocyte distribution width (RBC) [Ratio] 14.5 % Normal 11.0-15.0 [facility] Comment on above: Performed By: #### M G, BMP, URIC, ALB, PHOS #### [facility] [address] [place] [address] Dr. Terence Love Hematocrit (Bld) [Volume fraction] 40.8 % Critically low 42.0-54.0 [facility] Comment on above: Performed By: #### M G, BMP, URIC, ALB, PHOS #### [facility] [address] [place] [address] Dr. Terence Love Hemoglobin (Bld) [Mass/Vol] 13.3 g/dL Critically low 14.0-18.0 [facility] Comment on above: Performed By: #### M G, BMP, URIC, ALB, PHOS #### [facility] [address] [place] [address] Dr. Terence Love IG # 0.02 10e3/ul Normal 0.00-0.03 [facility] Comment on above: Performed By: #### M G, BMP, URIC, ALB, PHOS #### [facility] [address] [place] [address] Dr. Terence Love IG % 0.3 % Normal 0.0-0.5 [facility] Comment on above: Performed By: #### M G, BMP, URIC, ALB, PHOS #### [facility] [address] [place] [address] Dr. Terence Love LYMPH # 1.1 103/ul Critically low 1.2-3.8 [facility] Comment on above: Performed By: #### M G, BMP, URIC, ALB, PHOS #### [facility] [address] [place] [address] Dr. Terence Love Lymphocytes/100 WBC (Bld) 18.9 % Critically low 20.5-60.0 [facility] Comment on above: Performed By: #### M G, BMP, URIC, ALB, PHOS #### [facility] [address] [place] [address] Dr. Terence Love MANUAL DIFF REQ NO Normal [facility] Comment on above: Performed By: #### M G, BMP, URIC, ALB, PHOS #### [facility] [address] [place] [address] Dr. Terence Love MCH (RBC) [Entitic mass] 30.2 pg Normal 25.9-34.0 [facility] Comment on above: Performed By: #### M G, BMP, URIC, ALB, PHOS #### [facility] [address] [place] [address] Dr. Terence Love MCHC (RBC) [Mass/Vol] 32.6 g/dL Normal 29.9-35.2 [facility] Comment on above: Performed By: #### M G, BMP, URIC, ALB, PHOS #### [facility] [address] [place] [address] Dr. Terence Love MCV (RBC) [Entitic vol] 92.5 fL Normal 80.0-94.0 [facility] Comment on above: Performed By: #### M G, BMP, URIC, ALB, PHOS #### [facility] [address] [place] [address] Dr. Terence Love MONO # 0.7 103/ul Normal 0.3-0.8 [facility] Comment on above: Performed By: #### M G, BMP, URIC, ALB, PHOS #### [facility] [address] [place] [address] Dr. Terence Love Monocytes/100 WBC (Bld) 10.9 % Normal 1.7-12.0 [facility] Comment on above: Performed By: #### M G, BMP, URIC, ALB, PHOS #### [facility] [address] [address] [address] Terence Love NEUT # 4.1 103/ul Normal 1.4-6.5 [facility] Comment on above: Performed By: #### M G, BMP, URIC, ALB, PHOS #### [facility] [address] [place] [address] Dr. Terence Love Neutrophils/100 WBC (Bld) 67.4 % Normal 43.0-75.0 [facility] Comment on above: Performed By: #### M G, BMP, URIC, ALB, PHOS #### [facility] [address] [place] [address] Dr. Terence Love Platelet mean volume (Bld) [Entitic vol] 10.6 fL Normal 9.5-13.5 [facility] Comment on above: Performed By: #### M G, BMP, URIC, ALB, PHOS #### [facility] [address] [place] [address] Dr. Terence Love PLT 219 103/ul Normal 150-450 [facility] Comment on above: Performed By: #### M G, BMP, URIC, ALB, PHOS #### [facility] [address] [place] [address] Dr. Terence Love RBC 4.41 106/ul Critically low 4.70-6.10 [facility] Comment on above: Performed By: #### M G, BMP, URIC, ALB, PHOS #### [facility] [address] [place] [address] Dr. Terence Love WBC 6.0 103/ul Normal 4.0-11.0 [facility] Comment on above: Performed By: #### M G, BMP, URIC, ALB, PHOS #### [facility] [address] [place] [address] Dr. Terence Love PROF 14(COMP METB)on 023 Albumin [Mass/Vol] 3.9 g/dL Normal 3.4-5.0 [facility] Comment on above: Performed By: #### M G, BMP, URIC, ALB, PHOS #### [facility] [address] [place] [address] Dr. Terence Love Albumin/Globulin [Mass ratio] 1.1 {ratio} Normal [facility] Comment on above: Performed By: #### M G, BMP, URIC, ALB, PHOS #### [facility] [address] [place] [address] Dr. Terence Love ALP [Catalytic activity/Vol] 69 U/L Normal 46-116 [facility] Comment on above: Performed By: #### M G, BMP, URIC, ALB, PHOS #### [facility] [address] [place] [address] Dr. Terence Love ALT [Catalytic activity/Vol] 33 U/L Normal 16-63 [facility] Comment on above: Performed By: #### M G, BMP, URIC, ALB, PHOS #### [facility] [address] [place] [address] Dr. Terence Love Anion gap [Moles/Vol] 11.9 mmol/L Normal [facility] Comment on above: Performed By: #### M G, BMP, URIC, ALB, PHOS #### [facility] [address] [place] [address] Dr. Terence Love AST [Catalytic activity/Vol] 21 U/L Normal 15-37 [facility] Comment on above: Performed By: #### M G, BMP, URIC, ALB, PHOS #### [facility] [address] [place] [address] Dr. Terence Love Bilirubin [Mass/Vol] 0.6 mg/dL Normal 0.2-1.0 [facility] Comment on above: Performed By: #### M G, BMP, URIC, ALB, PHOS #### [facility] [address] [place] [address] Dr. Terence Love Calcium [Mass/Vol] 9.3 mg/dL Normal 8.5-10.1 [facility] Comment on above: Performed By: #### M G, BMP, URIC, ALB, PHOS #### [facility] [address] [place] [address] Dr. Terence Love Chloride [Moles/Vol] 101 mmol/L Normal 98-107 [facility] Comment on above: Performed By: #### M G, BMP, URIC, ALB, PHOS #### [facility] [address] [place] [address] Dr. Terence Love CO2 [Moles/Vol] 31.3 mmol/L Normal 21.0-32.0 [facility] Comment on above: Performed By: #### M G, BMP, URIC, ALB, PHOS #### [facility] [address] [place] [address] Dr. Terence Love Creatinine [Mass/Vol] 1.94 mg/dL Critically high 0.70-1.30 [facility] Comment on above: Performed By: #### M G, BMP, URIC, ALB, PHOS #### [facility] [address] [place] [address] Dr. Terence Love EGFR-AF MOROCCAN 41 mL/min/1.73m2 Critically low >=60 [facility] Comment on above: Performed By: #### M G, BMP, URIC, ALB, PHOS #### [facility] [address] [place] [address] Dr. Terence Love EGFR-NON AF MOROCCAN 34 mL/min/1.73m2 Critically low >=60 [facility] Comment on above: Performed By: #### M G, BMP, URIC, ALB, PHOS #### [facility] [address] [place] [address] Dr. Terence Love Globulin (S) [Mass/Vol] 3.5 g/dL Normal [facility] Comment on above: Performed By: #### M G, BMP, URIC, ALB, PHOS #### [facility] [address] [place] [address] Dr. Terence Love Glucose [Mass/Vol] 127 mg/dL Critically high 74-106 [facility] Comment on above: Performed By: #### M G, BMP, URIC, ALB, PHOS #### [facility] [address] [address] [address] Terence Love Potassium [Moles/Vol] 4.2 mmol/L Normal 3.5-5.1 [facility] Comment on above: Performed By: #### M G, BMP, URIC, ALB, PHOS #### [facility] [address] [address] [address] Terence Love Protein [Mass/Vol] 7.4 g/dL Normal 6.4-8.2 [facility] Comment on above: Performed By: #### M G, BMP, URIC, ALB, PHOS #### [facility] [address] [place] [address] Dr. Terence Love Sodium [Moles/Vol] 140 mmol/L Normal 136-145 [facility] Comment on above: Performed By: #### M G, BMP, URIC, ALB, PHOS #### [facility] [address] [place] [address] Dr. Terence Love Urea nitrogen [Mass/Vol] 26.0 mg/dL Critically high 7.0-18.0 [facility] Comment on above: Performed By: #### M G, BMP, URIC, ALB, PHOS #### [facility] [address] [place] [address] Dr. Terence Love Urea nitrogen/Creatinine [Mass ratio] 13.4 mg/mg Normal [facility] Comment on above: Performed By: #### M G, BMP, URIC, ALB, PHOS #### [facility] [address] [place] [address] Dr. Terence Love XR CHEST 2 Von [...] GEORGIE CHARLES Date: 2022-11-17 13:11 Normal [facility] CT LSPINE WO CONon 3 CT LSPINE [...] RAJENDRA FRANCO Date: 2022-11-15 07:36 Normal [facility] ALBUMINon 08-12-2022 Albumin [Mass/Vol] 3.8 g/dL Normal 3.4-5.0 [facility] Comment on above: Performed By: #### M G, BMP, URIC, ALB, PHOS #### [facility] [address] [place] [address] Dr. Terence Love HEMOGRAM AND PLATELon 2022 Hematocrit (Bld) [Volume fraction] 38.3 % Critically low 42.0-54.0 [facility] Comment on above: Performed By: #### M G, BMP, URIC, ALB, PHOS #### [facility] [address] [place] [address] Dr. Terence Love Hemoglobin (Bld) [Mass/Vol] 12.5 g/dL Critically low 14.0-18.0 [facility] Comment on above: Performed By: #### M G, BMP, URIC, ALB, PHOS #### [facility] [address] [place] [address] Dr. Terence oLve MCH (RBC) [Entitic mass] 29.7 pg Normal 25.9-34.0 [facility] Comment on above: Performed By: #### M G, BMP, URIC, ALB, PHOS #### [facility] [address] [place] [address] Dr. Terence Love MCHC (RBC) [Mass/Vol] 32.6 g/dL Normal 29.9-35.2 [facility] Comment on above: Performed By: #### M G, BMP, URIC, ALB, PHOS #### [facility] [address] [place] [address] Dr. Terence Love MCV (RBC) [Entitic vol] 91.0 fL Normal 80.0-94.0 [facility] Comment on above: Performed By: #### M G, BMP, URIC, ALB, PHOS #### [facility] [address] [place] [address] Dr. Terence Love PLT 192 103/ul Normal 150-450 [facility] Comment on above: Performed By: #### M G, BMP, URIC, ALB, PHOS #### [facility] [address] [place] [address] Dr. Terence Love RBC 4.21 106/ul Critically low 4.70-6.10 [facility] Comment on above: Performed By: #### M G, BMP, URIC, ALB, PHOS #### [facility] [address] [place] [address] Dr. Terence Love WBC 6.2 103/ul Normal 4.0-11.0 [facility] Comment on above: Performed By: #### M G, BMP, URIC, ALB, PHOS #### [facility] [address] [place] [address] Dr. Terence Love MAGNESIUMon 08-12-2022 Magnesium [Mass/Vol] 1.8 mg/dL Normal 1.8-2.4 [facility] Comment on above: Performed By: #### B MP #### [facility] [address] [place] [address] Dr. Terence Love PHOSPHORUSon 08-12-2022 Phosphate [Mass/Vol] 4.1 mg/dL Normal 2.6-4.7 [facility] Comment on above: Performed By: #### B MP #### [facility] [address] [place] [address] Dr. Terence Love PROF CHEM 8 (BAS METB)on Anion gap [Moles/Vol] 14.2 mmol/L Normal [facility] Comment on above: Performed By: #### M G, BMP, URIC, ALB, PHOS #### [facility] [address] [place] [address] Dr. Terence Love Calcium [Mass/Vol] 9.4 mg/dL Normal 8.5-10.1 [facility] Comment on above: Performed By: #### M G, BMP, URIC, ALB, PHOS #### [facility] [address] [place] [address] Dr. Terence Love Chloride [Moles/Vol] 102 mmol/L Normal 98-107 [facility] Comment on above: Performed By: #### M G, BMP, URIC, ALB, PHOS #### [facility] [address] [place] [address] Dr. Terence Love CO2 [Moles/Vol] 29.4 mmol/L Normal 21.0-32.0 [facility] Comment on above: Performed By: #### M G, BMP, URIC, ALB, PHOS #### [facility] [address] [place] [address] Dr. Terence Love Creatinine [Mass/Vol] 1.54 mg/dL Critically high 0.70-1.30 [facility] Comment on above: Performed By: #### M G, BMP, URIC, ALB, PHOS #### [facility] [address] [place] [address] Dr. Terence Love EGFR-AF MOROCCAN 53 mL/min/1.73m2 Critically low >=60 [facility] Comment on above: Performed By: #### M G, BMP, URIC, ALB, PHOS #### [facility] [address] [place] [address] Dr. Terence Love EGFR-NON AF MOROCCAN 44 mL/min/1.73m2 Critically low >=60 [facility] Comment on above: Performed By: #### M G, BMP, URIC, ALB, PHOS #### [facility] [address] [place] [address] Dr. Terence Love Glucose [Mass/Vol] 196 mg/dL Critically high 74-106 T [facility] Comment on above: Performed By: #### M G, BMP, URIC, ALB, PHOS #### [facility] [address] [place] [address] Dr. Terence Love Potassium [Moles/Vol] 4.6 mmol/L Normal 3.5-5.1 [facility] Comment on above: Performed By: #### M G, BMP, URIC, ALB, PHOS #### [facility] [address] [place] [address] Dr. Terence Love Sodium [Moles/Vol] 141 mmol/L Normal 136-145 [facility] Comment on above: Performed By: #### M G, BMP, URIC, ALB, PHOS #### [facility] [address] [place] [address] Dr. Terence Love Urea nitrogen [Mass/Vol] 26.0 mg/dL Critically high 7.0-18.0 [facility] Comment on above: Performed By: #### M G, BMP, URIC, ALB, PHOS #### [facility] [address] [place] [address] Dr. Terence Love Urea nitrogen/Creatinine [Mass ratio] 16.9 mg/mg Normal [facility] Comment on above: Performed By: #### M G, BMP, URIC, ALB, PHOS #### [facility] [address] [place], [place] [address] Dr. Terence Love URIC ACID SERUMon 08-12-2022 Urate [Mass/Vol] 6.0 mg/dL Normal 3.5-7.2 [facility] Comment on above: Performed By: #### M G, BMP, URIC, ALB, PHOS #### [facility] [address] [address] [address] Terence Love Glucose Glucometer (BldC) [M ass/Vol]Ordered By: Darien Escamilla on 07-06-2022 Glucose [Mass/Vol] 82 mg/dL [facility] Comment on above: Random Glucose Refer ence Range is dependent on time and content of last meal. Glucose of more than 200 mg/dL in a nonstressed, ambulatory subject supports the diagnosis of Diabetes Mellitus. Glucose Poct Glucometerson 0 07-06-2022 Commemt1 Glu2: Cleaned Meter [facility] Comment on above: Result Comment: PERF ORMED BY: [facility] [address] [place] [address] PATHOLOGIST [employer] PR[employer] OPERATOR KEZIA MUÑOZ M.D. Performed By: #### G LULS #### Point of Care testing , Glucose [Mass/Vol] 82 mg/dL Normal [facility] Comment on above: Result Comment: [place] Glucose Reference Range is dependent on time and content of last meal. Glucose of more than 200 mg/dL in a nonstressed, ambulatory subject supports the diagnosis of Diabetes Mellitus. Performed By: #### G LULS #### Point of Care testing , No Panel InformationOrdered By: Darien Escamilla on 07-06-2022 Bedside Glucose Comment Glu2: cleaned meter [facility] Basic Metabolic Panelon 12-2 Anion gap [Moles/Vol] 10.3 mmol/L Normal 6.0-15.0 [facility] Comment on above: Performed By: #### C BC, BMP #### [facility] [address] Calcium [Mass/Vol] 9.3 mg/dL Normal 8.2-10.2 [facility] Comment on above: Result Comment: PERF ORMED BY: [place] [address] PATHOLOGIST [employer]ANT PRINT OPERATOR KEZIA MUÑOZ M.D. Performed By: #### C BC, BMP #### [facility] [address] [place] [address] [place] Chloride [Moles/Vol] 102 mmol/L Normal 95-114 [facility] Comment on above: Performed By: #### C BC, BMP #### [facility] [address] CO2 [Moles/Vol] 28.3 mmol/L Normal 22.0-30.0 [facility] Comment on above: Performed By: #### C BC, BMP #### [address] Creatinine [Mass/Vol] 1.62 mg/dL High 0.64-1.27 [facility] Comment on above: Performed By: #### C BC, BMP #### [address] Estimated GFR ( [place] 50 [facility] Comment on above: Result Comment: GFR estimated reference range: According to KDOQI guidelines, <60 ml/min/1.73m2 is sufficient to diagnose a patient with chronic kidney disease. Performed By: #### C BC, BMP #### [facility] [address] [place] [address] [place] Estimated GFR (Non- Am 41 [facility] Comment on above: Performed By: #### C BC, BMP #### [facility] [address] [place] [address] [place] Glucose [Mass/Vol] 202 mg/dL High 70-100 [facility] Comment on above: Result Comment: [place] om Glucose Reference Range is dependent on time and content of last meal. Glucose of more than 200 mg/dL in a nonstressed, ambulatory subject supports the diagnosis of Diabetes Mellitus. ADA recommended reference range Performed By: #### C BC, BMP #### [address] [place] [address] [place] Potassium [Moles/Vol] 4.6 mmol/L Normal 3.5-5.1 [facility] Comment on above: Performed By: #### C BC, BMP #### [facility] [address] Sodium [Moles/Vol] 136 mmol/L Normal 136-146 [facility] Comment on above: Performed By: #### C BC, BMP #### [facility] [address] Urea nitrogen [Mass/Vol] 25 mg/dL High 03-25 [facility] Comment on above: Performed By: #### C BC, BMP #### [address] Basophils Auto (Bld) [#/Vol] Ordered By: Darien Escamilla on 06-22-2022 Basophils (Bld) [#/Vol] 0.0 10*3/uL 0.0-0.2 [facility] Basophils/100 WBC Auto (Bld) Ordered By: Darien Escamilla on 06-22-2022 Basophils/100 WBC (Bld) 0.5 % . [facility] Complete Blood Count Auto Di ffon 06-22-2022 Basophils (Bld) [#/Vol] 0.0 10*3/uL Normal 0.0-0.2 [facility] Comment on above: Result Comment: PERF ORMED BY: [place] [address] PATHOLOGIST INSTANT PRINT OPERATOR KEZIA MUÑOZ M.D. Performed By: #### C BC, BMP #### [address] Basophils/100 WBC (Bld) 0.5 % Normal . [facility] Comment on above: Performed By: #### C BC, BMP #### [address] Eosinophils (Bld) [#/Vol] 0.1 10*3/uL Normal 0.0-0.45 [facility] Comment on above: Performed By: #### C BC, BMP #### [facility] [address] Eosinophils/100 WBC (Bld) 1.5 % Normal . [facility] Comment on above: Performed By: #### C BC, BMP #### [facility] [address] Erythrocyte distribution width (RBC) [Ratio] 14.3 % Normal 12.0-14.8 [facility] Comment on above: Performed By: #### C BC, BMP #### [facility] [address] Hematocrit (Bld) [Volume fraction] 38.3 % Low 38.8-50.0 [facility] Comment on above: Performed By: #### C BC, BMP #### [address] Hemoglobin (Bld) [Mass/Vol] 12.6 g/dL Low 13.0-17.0 [facility] Comment on above: Performed By: #### C BC, BMP #### [address] Lymphocytes (Bld) [#/Vol] 0.9 10*3/uL Low 1.00-4.8 [facility] Comment on above: Performed By: #### C BC, BMP #### [address] Lymphocytes/100 WBC (Bld) 16.3 % Normal . [facility] Comment on above: Performed By: #### C BC, BMP #### [place] [address] [place] MCH (RBC) [Entitic mass] 29.8 pg Normal 27.5-35.2 [facility] Comment on above: Performed By: #### C BC, BMP #### [address] MCV (RBC) [Entitic vol] 90.2 fL Normal 83.5-101 [facility] Comment on above: Performed By: #### C BC, BMP #### [facility] [address] Mean Corpuscular HGB Conc 33.0 g/dL Normal 32.5-35.6 [facility] Comment on above: Performed By: #### C BC, BMP #### [facility] [address] [place] [address] [place] Monocytes (Bld) [#/Vol] 0.6 10*3/uL Normal 0.0-0.8 [facility] Comment on above: Performed By: #### C BC, BMP #### [facility] [address] Monocytes/100 WBC (Bld) 9.9 % Normal . [facility] Comment on above: Performed By: #### C DERIC, BMP #### [address] Neutrophils (Bld) [#/Vol] 4.2 10*3/uL Normal 1.8-7.7 [facility] Comment on above: Performed By: #### C BC, BMP #### [address] Neutrophils/100 WBC (Bld) 71.8 % Normal . [facility] Comment on above: Performed By: #### C BC, BMP #### [address] NRBC% 0.2 /100{WBC} Normal 0-0.5 [facility] Comment on above: Performed By: #### C BC, BMP #### [facility] [address] [place] [address] [place] Platelet mean volume (Bld) [Entitic vol] 9.0 fL Normal 6.6-10.1 [facility] Comment on above: Performed By: #### C BC, BMP #### [place] [address] [place] Platelets (Bld) [#/Vol] 180 10*3/uL Normal 150-450 [facility] Comment on above: Performed By: #### C BC, BMP #### [address] [place] [address] [place] RBC (Bld) [#/Vol] 4.25 10*6/uL Normal 3.90-5.60 [facility] Comment on above: Performed By: #### C BC, BMP #### [facility] [address] WBC (Bld) [#/Vol] 5.8 10*3/uL Normal 4.1-10.5 [facility] Comment on above: Performed By: #### C BC, BMP #### [address] Creatinine and Glomerular fi ltration rate.predicted panel (S/P/Bld)Ordered By: Darien Escamilla on 06-22-2022 Creatinine [Mass/Vol] 1.62 mg/dL 0.64-1.27 [facility] ECG 12 lead ECGon 06-22-2022 ECG 12 lead ECG [facility] [place] [address] [place] [address] Electrocardiograph Report Signed Patient: Jason Bartholomew MR#: [id number] : 1945 Acct:[id number] Age/Sex: 76 / M ADM Date: 06/22/22 Loc: Room: Type: [facility] Attending Dr: Darien Escamilla MD [...] By Gabby Celis DO 06/22 1306 Normal [facility] Eosinophils Auto (Bld) [#/Vo l]Ordered By: Darien Escamilla on 06-22-2022 Eosinophils (Bld) [#/Vol] 0.1 10*3/uL 0.0-0.45 [facility] Eosinophils/100 WBC Auto (Bl d)Ordered By: Darien Escamilla on 06-22-2022 Eosinophils/100 WBC (Bld) 1.5 % . [facility] Erythrocyte distribution wid th Auto (RBC) [Ratio]Ordered By: Darien Escamilla on 06-22-2022 Erythrocyte distribution width (RBC) [Ratio] 14.3 % 12.0-14.8 [facility] Estimated glomerular filtrat ion rate (GFR) non- AmericanOrdered By: Darien Escamilla on 06-22-2022 GFR/1.73 sq M.predicted among non-blacks MDRD (S/P/Bld) [Vol rate/Area] 41 mL/Min [facility] Hematocrit Auto (Bld) [Volum e fraction]Ordered By: Darien Escamilla on 06-22-2022 Hematocrit (Bld) [Volume fraction] 38.3 % 38.8-50.0 [facility] Hemoglobin [Mass/volume] in BloodOrdered By: Darien Escamilla on 06-22-2022 Hemoglobin (Bld) [Mass/Vol] 12.6 g/dL 13.0-17.0 [facility] Leukocytes [#/volume] correc jose for nucleated erythrocytes in Blood by Automated counOrdered By: Darien Escamilla on 06-22-2022 WBC corrected for nucl RBC Auto (Bld) [#/Vol] 5.8 10*3/uL 4.1-10.5 [facility] Lymphocytes Auto (Bld) [#/Vo l]Ordered By: Darien Escamilla on 06-22-2022 Lymphocytes (Bld) [#/Vol] 0.9 10*3/uL 1.00-4.8 [facility] Lymphocytes/100 WBC Auto (Bl d)Ordered By: Darien Escamilla on 06-22-2022 Lymphocytes/100 WBC (Bld) 16.3 % . [facility] MCH Auto (RBC) [Entitic mass ]Ordered By: Darien Escamilla on 06-22-2022 MCH (RBC) [Entitic mass] 29.8 pg 27.5-35.2 [facility] MCHC Auto (RBC) [Mass/Vol]Or dered By: Darien Escamilla on 06-22-2022 MCHC (RBC) [Mass/Vol] 33.0 g/dL 32.5-35.6 [facility] MCV Auto (RBC) [Entitic vol] Ordered By: Darien Escamilla on 06-22-2022 MCV (RBC) [Entitic vol] 90.2 fL 83.5-101 [facility] Monocytes Auto (Bld) [#/Vol] Ordered By: Darien Escamilla on 06-22-2022 Monocytes (Bld) [#/Vol] 0.6 10*3/uL 0.0-0.8 [facility] Monocytes/100 WBC Auto (Bld) Ordered By: Darien Escamilla on 06-22-2022 Monocytes/100 WBC (Bld) 9.9 % . [facility] Neutrophils Auto (Bld) [#/Vo l]Ordered By: Darien Escamilla on 06-22-2022 Neutrophils (Bld) [#/Vol] 4.2 10*3/uL 1.8-7.7 [facility] Neutrophils/100 WBC Auto (Bl d)Ordered By: Darien Escamilla on 06-22-2022 Neutrophils/100 WBC (Bld) 71.8 % . [facility] No Panel InformationOrdered By: Darien Escamilla on 06-22-2022 Estimated GFR () 50 mL/Min [facility] Comment on above: GFR estimated refere nce range: According to KDOQI guidelines, <60 ml/min/1.73m2 is sufficient to diagnose a patient with chronic kidney disease. Pharmacy Creatinine Clearance (Chem N/A [facility] Nucleated erythrocytes [Pres ence] in Blood by Automated countOrdered By: Darien Escamilla on 06-22-2022 Nucleated RBC Auto Ql (Bld) 0.2 /100{WBC} 0-0.5 [facility] Platelet mean volume Auto (B ld) [Entitic vol]Ordered By: Darien Escamilla on 06-22-2022 Platelet mean volume (Bld) [Entitic vol] 9.0 fL 6.6-10.1 [facility] Platelets Auto (Bld) [#/Vol] Ordered By: Darien Escamilla on 06-22-2022 Platelets (Bld) [#/Vol] 180 10*3/uL 150-450 [facility] RBC Auto (Bld) [#/Vol]Ordere d By: Darien Escamilla on 06-22-2022 RBC (Bld) [#/Vol] 4.25 10*6/uL 3.90-5.60 [facility] Serum or plasma anion gap de terminationOrdered By: Darien Escamilla on 06-22-2022 Anion gap [Moles/Vol] 10.3 mmol/L 6.0-15.0 [facility] Serum or plasma calcium abhishek urement (mass/volume)Ordered By: Darien Escamilla on 06-22-2022 Calcium [Mass/Vol] 9.3 mg/dL 8.2-10.2 [facility] Serum or plasma chloride abraham surement (moles/volume)Ordered By: Darien Escamilla on 06-22-2022 Chloride [Moles/Vol] 102 mmol/L 95-114 [facility] Serum or plasma glucose abhishek urement (mass/volume)Ordered By: Darien Escamilla on 06-22-2022 Glucose [Mass/Vol] 202 mg/dL 70-100 [facility] Comment on above: ADA recommended refe rence rangeRandom Glucose Reference Range is dependent on time and content of last meal. Glucose of more than 200 mg/dL in a nonstressed, ambulatory subject supports the diagnosis of Diabetes Mellitus. Serum or plasma potassium me asurement (moles/volume)Ordered By: Darien Escamilla on 06-22-2022 Potassium [Moles/Vol] 4.6 mmol/L 3.5-5.1 [facility] Serum or plasma sodium measu rement (moles/volume)Ordered By: Darien Escamilla on 06-22-2022 Sodium [Moles/Vol] 136 mmol/L 136-146 [facility] Serum or plasma total carbon dioxide measurement (moles/volume)Ordered By: Darien Escamilla on 06-22-2022 CO2 [Moles/Vol] 28.3 mmol/L 22.0-30.0 [facility] Serum or plasma urea nitroge n measurement (mass/volume)Ordered By: Darien Escamilla on 06-22-2022 Urea nitrogen [Mass/Vol] 25 mg/dL 03-25 [facility] WBC Auto (Bld) [#/Vol]Ordere d By: Darien Escamilla on 06-22-2022 WBC (Bld) [#/Vol] 5.8 10*3/uL 4.1-10.5 [facility] Covid-19 PCR (CVDTB)on 04-02 SARS-CoV-2 (COVID-19) RNA KOLTON+probe Ql (Unsp spec) Not detected Normal NOT DETECTED [facility] Comment on above: Result Comment: This test is not yet approved or cleared by the [place] FDA. When there are no FDA-approved or cleared tests available, and other criteria are met, FDA can make tests available under an emergency access mechanism called an Emergency Use Authorization (EUA). The EUA for this test is supported by the [place] of Health and Human Service's (HHS's) declaration [...] consistent with SARS-CoV-2. Performed By: #### [facility] #### [facility] [address] [address] [address] Terence Love CTA CHEST WO W [...] RAJENDRA FRANCO Date: 2022-04-04 08:00 Normal [facility] CBC AUTO DIFFon 04-02-2022 BASO # 0.0 103/ul Normal 0.0-0.1 [facility] Comment on above: Performed By: #### M G, BMP, URIC, ALB, PHOS #### [facility] [address] [place] [address] Dr. Terence Love Basophils/100 WBC (Bld) 0.5 % Normal 0.2-2.0 [facility] Comment on above: Performed By: #### M G, BMP, URIC, ALB, PHOS #### [facility] [address] [place] [address] Dr. Terence Love EO # 0.1 103/ul Normal 0.0-0.7 [facility] Comment on above: Performed By: #### M G, BMP, URIC, ALB, PHOS #### [facility] [address] [place] [address] Dr. Terence Love Eosinophils/100 WBC (Bld) 1.9 % Normal 0.9-7.0 [facility] Comment on above: Performed By: #### M G, BMP, URIC, ALB, PHOS #### [facility] [address] [place] [address] Dr. Terence Love Erythrocyte distribution width (RBC) [Ratio] 13.8 % Normal 11.0-15.0 [facility] Comment on above: Performed By: #### M G, BMP, URIC, ALB, PHOS #### [facility] [address] [place] [address] Dr. Terence Love Hematocrit (Bld) [Volume fraction] 40.9 % Critically low 42.0-54.0 [facility] Comment on above: Performed By: #### M G, BMP, URIC, ALB, PHOS #### [facility] [address] [place] [address] Dr. Terence Love Hemoglobin (Bld) [Mass/Vol] 13.6 g/dL Critically low 14.0-18.0 [facility] Comment on above: Performed By: #### M G, BMP, URIC, ALB, PHOS #### [facility] [address] [place] [address] Dr. Terence Love IG # 0.02 10e3/ul Normal 0.00-0.03 [facility] Comment on above: Performed By: #### M G, BMP, URIC, ALB, PHOS #### [facility] [address] [place] [address] Dr. Terence Love IG % 0.3 % Normal 0.0-0.5 [facility] Comment on above: Performed By: #### M G, BMP, URIC, ALB, PHOS #### [facility] [address] [place] [address] Dr. Terence Love LYMPH # 1.1 103/ul Critically low 1.2-3.8 [facility] Comment on above: Performed By: #### M G, BMP, URIC, ALB, PHOS #### [facility] [address] [place] [address] Dr. Terence Love Lymphocytes/100 WBC (Bld) 16.9 % Critically low 20.5-60.0 [facility] Comment on above: Performed By: #### M G, BMP, URIC, ALB, PHOS #### [facility] [address] [place] [address] Dr. Terence Love MANUAL DIFF REQ NO Normal [facility] Comment on above: Performed By: #### M G, BMP, URIC, ALB, PHOS #### [facility] [address] [place] [address] Dr. Terence Love MCH (RBC) [Entitic mass] 30.3 pg Normal 25.9-34.0 [facility] Comment on above: Performed By: #### M G, BMP, URIC, ALB, PHOS #### [facility] [address] [place] [address] Dr. Terence Love MCHC (RBC) [Mass/Vol] 33.3 g/dL Normal 29.9-35.2 [facility] Comment on above: Performed By: #### M G, BMP, URIC, ALB, PHOS #### [facility] [address] [place] [address] Dr. Terence Love MCV (RBC) [Entitic vol] 91.1 fL Normal 80.0-94.0 [facility] Comment on above: Performed By: #### M G, BMP, URIC, ALB, PHOS #### [facility] [address] [place] [address] Dr. Terence Love MONO # 0.6 103/ul Normal 0.3-0.8 [facility] Comment on above: Performed By: #### M G, BMP, URIC, ALB, PHOS #### [facility] [address] [place] [address] Dr. Terence Love Monocytes/100 WBC (Bld) 10.1 % Normal 1.7-12.0 [facility] Comment on above: Performed By: #### M G, BMP, URIC, ALB, PHOS #### [facility] [address] [place] [address] Dr. Terence Love NEUT # 4.4 103/ul Normal 1.4-6.5 [facility] Comment on above: Performed By: #### M G, BMP, URIC, ALB, PHOS #### [facility] [address] [place] [address] Dr. Terence Love Neutrophils/100 WBC (Bld) 70.3 % Normal 43.0-75.0 [facility] Comment on above: Performed By: #### M G, BMP, URIC, ALB, PHOS #### [facility] [address] [place] [address] Dr. Terence Love Platelet mean volume (Bld) [Entitic vol] 10.6 fL Normal 9.5-13.5 [facility] Comment on above: Performed By: #### M G, BMP, URIC, ALB, PHOS #### [facility] [address] [place] [address] Dr. Terence Love PLT 179 103/ul Normal 150-450 [facility] Comment on above: Performed By: #### M G, BMP, URIC, ALB, PHOS #### [facility] [address] [place] [address] Dr. Terence Love RBC 4.49 106/ul Critically low 4.70-6.10 [facility] Comment on above: Performed By: #### M G, BMP, URIC, ALB, PHOS #### [facility] [address] [place] [address] Dr. Terence Love WBC 6.2 103/ul Normal 4.0-11.0 [facility] Comment on above: Performed By: #### M G, BMP, URIC, ALB, PHOS #### [facility] [address] [place] [address] Dr. Terence Love PROF CHEM 8 (BAS METB)on Anion gap [Moles/Vol] 8.8 mmol/L Normal [facility] Comment on above: Performed By: #### B MP #### [facility] [address] [place] [address] Dr. Terence Love Calcium [Mass/Vol] 9.1 mg/dL Normal 8.5-10.1 [facility] Comment on above: Performed By: #### B MP #### [facility] [address] [place] [address] Dr. Terence Love Chloride [Moles/Vol] 102 mmol/L Normal 98-107 [facility] Comment on above: Performed By: #### B MP #### [facility] [address] [place] [address] Dr. Terence Love CO2 [Moles/Vol] 31.6 mmol/L Normal 21.0-32.0 [facility] Comment on above: Performed By: #### B MP #### [facility] [address] [address] [address] Terence Love Creatinine [Mass/Vol] 1.48 mg/dL Critically high 0.70-1.30 [facility] Comment on above: Performed By: #### B MP #### [facility] [address] [address] [address] Terence Love EGFR-AF MOROCCAN 56 mL/min/1.73m2 Critically low >=60 [facility] Comment on above: Performed By: #### B MP #### [facility] [address] [address] [address] Terence Love EGFR-NON AF MOROCCAN 46 mL/min/1.73m2 Critically low >=60 [facility] Comment on above: Performed By: #### B MP #### [facility] [address] [address] [address] Terence Love Glucose [Mass/Vol] 125 mg/dL Critically high 74-106 [facility] Comment on above: Performed By: #### B MP #### [facility] [address] [address] [address] Terence Love Potassium [Moles/Vol] 4.4 mmol/L Normal 3.5-5.1 [facility] Comment on above: Performed By: #### B MP #### [facility] [address] [address] [address] Terence Love Sodium [Moles/Vol] 138 mmol/L Normal 136-145 [facility] Comment on above: Performed By: #### B MP #### [facility] [address] [address] [address] Terence Love Urea nitrogen [Mass/Vol] 24.0 mg/dL Critically high 7.0-18.0 [facility] Comment on above: Performed By: #### B MP #### [facility] [address] [address] [address] Terence Love Urea nitrogen/Creatinine [Mass ratio] 16.2 mg/mg Normal [facility] Comment on above: Performed By: #### B MP #### [facility] [address] [place] [address] Dr. Terence Love PROF CHEM 8 (BAS METB)on Anion gap [Moles/Vol] 13.4 mmol/L Normal [facility] Comment on above: Performed By: #### M G, BMP, URIC, ALB, PHOS #### [facility] [address] [place] [address] Dr. Terence Love Calcium [Mass/Vol] 9.1 mg/dL Normal 8.5-10.1 [facility] Comment on above: Performed By: #### M G, BMP, URIC, ALB, PHOS #### [facility] [address] [place] [address] Dr. Terence Love Chloride [Moles/Vol] 103 mmol/L Normal 98-107 [facility] Comment on above: Performed By: #### M G, BMP, URIC, ALB, PHOS #### [facility] [address] [place] [address] Dr. Terence Love CO2 [Moles/Vol] 27.9 mmol/L Normal 21.0-32.0 [facility] Comment on above: Performed By: #### M G, BMP, URIC, ALB, PHOS #### [facility] [address] [place] [address] Dr. Terence Love Creatinine [Mass/Vol] 1.66 mg/dL Critically high 0.70-1.30 [facility] Comment on above: Performed By: #### M G, BMP, URIC, ALB, PHOS #### [facility] [address] [place] [address] Dr. Terence Love EGFR-AF MOROCCAN 49 mL/min/1.73m2 Critically low >=60 [facility] Comment on above: Performed By: #### M G, BMP, URIC, ALB, PHOS #### [facility] [address] [place] [address] Dr. Terence Love EGFR-NON AF MOROCCAN 40 mL/min/1.73m2 Critically low >=60 [facility] Comment on above: Performed By: #### M G, BMP, URIC, ALB, PHOS #### [facility] [address] [address] [address] Terence Love Glucose [Mass/Vol] 211 mg/dL Critically high 74-106 [facility] Comment on above: Performed By: #### M G, BMP, URIC, ALB, PHOS #### [facility] [address] [address] [address] Terence Love Potassium [Moles/Vol] 4.3 mmol/L Normal 3.5-5.1 [facility] Comment on above: Performed By: #### M G, BMP, URIC, ALB, PHOS #### [facility] [address] [address] [address] Terence Love Sodium [Moles/Vol] 140 mmol/L Normal 136-145 [facility] Comment on above: Performed By: #### M G, BMP, URIC, ALB, PHOS #### [facility] [address] [address] [address] Terence Love Urea nitrogen [Mass/Vol] 31.0 mg/dL Critically high 7.0-18.0 [facility] Comment on above: Performed By: #### M G, BMP, URIC, ALB, PHOS #### [facility] [address] [address] [address] Terence Love Urea nitrogen/Creatinine [Mass ratio] 18.7 mg/mg Normal [facility] Comment on above: Performed By: #### M G, BMP, URIC, ALB, PHOS #### [facility] [address] [address] [address] Terence Love ECHOCARDIO M/2D COMPLETEon 0 02-02-2022 ECHOCARDIO M/2D COMPLETE Patient: JASON BARTHOLOMEW Exam Date: 02/02/2022 : 1945 Gender:M Ordering : DR JOHNTAHAN BOWMAN M.D. Admission #: [id number] Family : DR IDRIS JOSE . Order #: [id number] CLICK HERE TO VIEW EXAM ECHOCARDIOGRAM REPORT [...] Gradient: 7.70 mm[Hg] Right Atrium Dictated by: Halie Boyd M.D. on 02/02/2022 at 16:50 Approved by: Halie Boyd M.D. on 02/02/2022 at 16:56 Normal [facility] MR cervical spine wo conon 0 01-28-2022 MR cervical spine wo con [facility] [place] [address] MRI Report Signed Patient: Jason Bartholomew MR#: [id number] : 1945 Acct:[id number] Age/Sex: 76 / M ADM Date: 01/28/22 Loc: Room: Type: [facility] Attending Dr: Idris Jose MD Copies to: [...] Elie Gerardo M.D.01/28/2022 12:25 PM Dictation Location: [place] [address] Transcribed By: STEVEN 01/28/22 1225 Dictated By: Elie Gerardo II, MD 01/28/22 1211 Signed By: 01/28/22 1225 Normal [facility] PTH INTACTon 01-08-2022 PTH, Intact 27 pg/mL Normal 15-65 [facility] Comment on above: Performed By: #### M G, BMP, URIC, ALB, PHOS #### [facility] [address] [place] [address] Dr. Terence Love ALBUMINon 01-07-2022 Albumin [Mass/Vol] 3.9 g/dL Normal 3.4-5.0 [facility] Comment on above: Performed By: #### M G, BMP, URIC, ALB, PHOS #### [facility] [address] [place] [address] Dr. Terence Love CBC AUTO DIFFon 01-07-2022 BASO # 0.0 103/ul Normal 0.0-0.1 [facility] Comment on above: Performed By: #### C BC #### [facility] [address] [place] [address] Dr. Terence Love Basophils/100 WBC (Bld) 0.3 % Normal 0.2-2.0 [facility] Comment on above: Performed By: #### C BC #### [facility] [address] [place] [address] Dr. Terence Love EO # 0.1 103/ul Normal 0.0-0.7 [facility] Comment on above: Performed By: #### C BC #### [facility] [address] [place] [address] Dr. Terence Love Eosinophils/100 WBC (Bld) 2.0 % Normal 0.9-7.0 [facility] Comment on above: Performed By: #### C BC #### [facility] [address] [place] [address] Dr. Terence Love Erythrocyte distribution width (RBC) [Ratio] 13.9 % Normal 11.0-15.0 [facility] Comment on above: Performed By: #### C BC #### [facility] [address] [place] [address] Dr. Terence Love Hematocrit (Bld) [Volume fraction] 45.2 % Normal 42.0-54.0 [facility] Comment on above: Performed By: #### C BC #### [facility] [address] [place] [address] Dr. Terence Love Hemoglobin (Bld) [Mass/Vol] 14.4 g/dL Normal 14.0-18.0 [facility] Comment on above: Performed By: #### C BC #### [facility] [address] [place] [address] Dr. Terence Love IG # 0.03 10e3/ul Normal 0.00-0.03 [facility] Comment on above: Performed By: #### C BC #### [facility] [address] [place] [address] Dr. Terence Love IG % 0.5 % Normal 0.0-0.5 [facility] Comment on above: Performed By: #### C BC #### [facility] [address] [place] [address] Dr. Terence Love LYMPH # 1.0 103/ul Critically low 1.2-3.8 [facility] Comment on above: Performed By: #### C BC #### [facility] [address] [place] [address] Dr. Terence Love Lymphocytes/100 WBC (Bld) 16.3 % Critically low 20.5-60.0 [facility] Comment on above: Performed By: #### C BC #### [facility] [address] [place] [address] Dr. Terence Love MANUAL DIFF REQ NO Normal [facility] Comment on above: Performed By: #### C BC #### [facility] [address] [place] [address] Dr. Terence Love MCH (RBC) [Entitic mass] 29.3 pg Normal 25.9-34.0 [facility] Comment on above: Performed By: #### C BC #### [facility] [address] [place] [address] Dr. Terence Love MCHC (RBC) [Mass/Vol] 31.9 g/dL Normal 29.9-35.2 [facility] Comment on above: Performed By: #### C BC #### [facility] [address] [place] [address] Dr. Terence Love MCV (RBC) [Entitic vol] 92.1 fL Normal 80.0-94.0 [facility] Comment on above: Performed By: #### C BC #### [facility] [address] [place] [address] Dr. Terence Love MONO # 0.6 103/ul Normal 0.3-0.8 [facility] Comment on above: Performed By: #### C BC #### [facility] [address] [place] [address] Dr. Terence Love Monocytes/100 WBC (Bld) 9.3 % Normal 1.7-12.0 [facility] Comment on above: Performed By: #### C BC #### [facility] [address] [place] [address] Dr. Terence Love NEUT # 4.4 103/ul Normal 1.4-6.5 [facility] Comment on above: Performed By: #### C BC #### [facility] [address] [place] [address] Dr. Terence Love Neutrophils/100 WBC (Bld) 71.6 % Normal 43.0-75.0 [facility] Comment on above: Performed By: #### C BC #### [facility] [address] [place] [address] Dr. Terence Love Platelet mean volume (Bld) [Entitic vol] 10.8 fL Normal 9.5-13.5 [facility] Comment on above: Performed By: #### C BC #### [facility] [address] [place] [address] Dr. Terence Love PLT 203 103/ul Normal 150-450 [facility] Comment on above: Performed By: #### C BC #### [facility] [address] [place] [address] Dr. Terence Love RBC 4.91 106/ul Normal 4.70-6.10 [facility] Comment on above: Performed By: #### C BC #### [facility] [address] [place] [address] Dr. Terence Love WBC 6.1 103/ul Normal 4.0-11.0 [facility] Comment on above: Performed By: #### C BC #### [facility] [address] [place] [address] Dr. Terence Love MAGNESIUMon 01-07-2022 Magnesium [Mass/Vol] 1.7 mg/dL Critically low 1.8-2.4 [facility] Comment on above: Performed By: #### M G, BMP, URIC, ALB, PHOS #### [facility] [address] [place] [address] Dr. Terence Love MICROALB CREAT RATIO RANDOMo n 01-07-2022 mALB 2.3 mg/L Normal <=30.0 [facility] Comment on above: Performed By: #### M CRR #### [facility] [address] [place] [address] Dr. Terence Love MALB CR RATIO 18.9 mg/g Normal 0.0-29.9 [facility] Comment on above: Performed By: #### M CRR #### [facility] [address] [place] [address] Dr. Terence Love MALB CR RATIO RANGE SEE BELOW Normal [facility] Comment on above: Result Comment: NO M ICROALBUMINURIA 0-29 MG/G CLINICAL MICROALBUMINURIA 30-300 MG/G MACROALBUMINURIA >300 MG/G Performed By: #### M CRR #### [facility] [address] [place] [address] Dr. Terence Love URINE CREAT 121.78 mg/dL Normal 20.00-300.0 0 [facility] Comment on above: Performed By: #### M CRR #### [facility] [address] [place] [address] Dr. Terence Love PHOSPHORUSon 01-07-2022 Phosphate [Mass/Vol] 4.2 mg/dL Normal 2.6-4.7 [facility] Comment on above: Performed By: #### M G, BMP, URIC, ALB, PHOS #### [facility] [address] [place] [address] Dr. Terence Love PROF CHEM 8 (BAS METB)on Anion gap [Moles/Vol] 11.0 mmol/L Normal [facility] Comment on above: Performed By: #### M G, BMP, URIC, ALB, PHOS #### [facility] [address] [place] [address] Dr. Terence Love Calcium [Mass/Vol] 9.2 mg/dL Normal 8.5-10.1 [facility] Comment on above: Performed By: #### M G, BMP, URIC, ALB, PHOS #### [facility] [address] [place] [address] Dr. Terence Love Chloride [Moles/Vol] 102 mmol/L Normal 98-107 [facility] Comment on above: Performed By: #### M G, BMP, URIC, ALB, PHOS #### [facility] [address] [place] [address] Dr. Terence Love CO2 [Moles/Vol] 29.2 mmol/L Normal 21.0-32.0 [facility] Comment on above: Performed By: #### M G, BMP, URIC, ALB, PHOS #### [facility] [address] [place] [address] Dr. Terence Love Creatinine [Mass/Vol] 1.58 mg/dL Critically high 0.70-1.30 [facility] Comment on above: Performed By: #### M G, BMP, URIC, ALB, PHOS #### [facility] [address] [place] [address] Dr. Terence Love EGFR-AF MOROCCAN 52 mL/min/1.73m2 Critically low >=60 [facility] Comment on above: Performed By: #### M G, BMP, URIC, ALB, PHOS #### [facility] [address] [place] [address] Dr. Terence Love EGFR-NON AF MOROCCAN 43 mL/min/1.73m2 Critically low >=60 [facility] Comment on above: Performed By: #### M G, BMP, URIC, ALB, PHOS #### [facility] [address] [address] [address] Terence Love Glucose [Mass/Vol] 220 mg/dL Critically high 74-106 [facility] Comment on above: Performed By: #### M G, BMP, URIC, ALB, PHOS #### [facility] [address] [address] [address] Terence Love Potassium [Moles/Vol] 4.9 mmol/L Normal 3.5-5.1 [facility] Comment on above: Performed By: #### M G, BMP, URIC, ALB, PHOS #### [facility] [address] [place] [address] Dr. Terence Love Sodium [Moles/Vol] 138 mmol/L Normal 136-145 [facility] Comment on above: Performed By: #### M G, BMP, URIC, ALB, PHOS #### [facility] [address] [address] [address] Terence Love Urea nitrogen [Mass/Vol] 22.0 mg/dL Critically high 7.0-18.0 [facility] Comment on above: Performed By: #### M G, BMP, URIC, ALB, PHOS #### [facility] [address] [address] [address] Terence Love Urea nitrogen/Creatinine [Mass ratio] 13.9 mg/mg Normal [facility] Comment on above: Performed By: #### M G, BMP, URIC, ALB, PHOS #### [facility] [address] [address] [address] Terence Love UA RANDOMon 01-07-2022 Bilirubin Ql (U) Negative Normal NEGATIVE [facility] Comment on above: Performed By: #### M G, BMP, URIC, ALB, PHOS #### [facility] [address] [place] [address] Dr. Terence Love Clarity (U) CLEAR Normal CLEAR [facility] Comment on above: Performed By: #### M G, BMP, URIC, ALB, PHOS #### [facility] [address] [address] [address] Terence Love Color (U) YELLOW Normal YELLOW [facility] Comment on above: Performed By: #### M G, BMP, URIC, ALB, PHOS #### [facility] [address] [address] [address] Terence Love Glucose Ql (U) 250 mg/dl Abnormal NEGATIVE [facility] Comment on above: Performed By: #### M G, BMP, URIC, ALB, PHOS #### [facility] [address] [address] [address] Terence Love Hemoglobin Ql (U) Negative Normal NEGATIVE [facility] Comment on above: Performed By: #### M G, BMP, URIC, ALB, PHOS #### [facility] [address] [address] [address] Terence Loev Ketones Ql (U) Negative Normal NEGATIVE [facility] Comment on above: Performed By: #### M G, BMP, URIC, ALB, PHOS #### [facility] [address] [address] [address] Terence Love LEUKOCYTES Negative Normal NEGATIVE [facility] Comment on above: Performed By: #### M G, BMP, URIC, ALB, PHOS #### [facility] [address] [address] [address] Terence Love Nitrite Ql (U) Negative Normal NEGATIVE [facility] Comment on above: Performed By: #### M G, BMP, URIC, ALB, PHOS #### [facility] [address] [address] [address] Terence Love pH (U) 5.5 [pH] Normal 5-9 [facility] Comment on above: Performed By: #### M G, BMP, URIC, ALB, PHOS #### [facility] [address] [address] [address] Terence Love SPEC GRAVITY 1.020 Normal 1.005-<=1.0 25 [facility] Comment on above: Performed By: #### M G, BMP, URIC, ALB, PHOS #### [facility] [address] [place] [address] Dr. Terence Love UA PROTEIN Negative Normal NEGATIVE/ TRACE [facility] Comment on above: Performed By: #### M G, BMP, URIC, ALB, PHOS #### [facility] [address] [place] [address] Dr. Terence Love Urobilinogen Qn (U) 0.2 {Cherise'U}/dL Normal 0.2 - 1. 0 [facility] Comment on above: Performed By: #### M G, BMP, URIC, ALB, PHOS #### [facility] [address] [place] [address] Dr. Terence Love URIC ACID SERUMon 01-07-2022 Urate [Mass/Vol] 5.7 mg/dL Normal 3.5-7.2 [facility] Comment on above: Performed By: #### M G, BMP, URIC, ALB, PHOS #### [facility] [address] [place] [address] Dr. Terence Love VITAMIN D 25 OHon 01-07-2022 VIT D 25-OH 32.1 ng/mL Normal [facility] Comment on above: Performed By: #### V ITAD #### [facility] [address] [place] [address] Dr. Terence Love VIT D RANGES SEE BELOW Normal [facility] Comment on above: Result Comment: <20 ng/mL Vit D deficient 20 - <30 ng/mL Vit D insufficient 30 - 100 ng/mL Vit D sufficient >100 ng/mL Potential Toxicity Performed By: #### V ITAD #### [facility] [address] [place] [address] Dr. Terence Love CBC W MANUAL DIFFon 12-17-19 22 ATYPICAL LYMPH # 0.29 103/ul Normal [facility] Comment on above: Performed By: #### M G, BMP, URIC, ALB, PHOS #### [facility] [address] [place] [address] Dr. Terence Love ATYPICAL LYMPH % 3 % Normal [facility] Comment on above: Performed By: #### M G, BMP, URIC, ALB, PHOS #### [facility] [address] [place] [address] Dr. Terence Love BAND # 0.2 103/ul Normal 0.0-0.3 [facility] Comment on above: Performed By: #### M G, BMP, URIC, ALB, PHOS #### [facility] [address] [place] [address] Dr. Terence Love BAND % 2 % Normal 0-5 [facility] Comment on above: Performed By: #### M G, BMP, URIC, ALB, PHOS #### [facility] [address] [place] [address] Dr. Terence Love BASOM # 0.00 103/ul Normal 0.00-0.10 [facility] Comment on above: Performed By: #### M G, BMP, URIC, ALB, PHOS #### [facility] [address] [place] [address] Dr. Terence Love BASOM % 0.0 % Critically low 0.2-2.0 [facility] Comment on above: Performed By: #### M G, BMP, URIC, ALB, PHOS #### [facility] [address] [place] [address] Dr. Terence Love BLAST # Normal [facility] Comment on above: Performed By: #### M G, BMP, URIC, ALB, PHOS #### [facility] [address] [place] [address] Dr. Terence Love BLAST % Normal [facility] Comment on above: Performed By: #### M G, BMP, URIC, ALB, PHOS #### [facility] [address] [place] [address] Dr. Terence Love CORRECTED WBC Normal 4.0-11.0 [facility] Comment on above: Performed By: #### M G, BMP, URIC, ALB, PHOS #### [facility] [address] [place] [address] Dr. Terence Love EOS # 0.00 103/ul Normal 0.00-0.70 [facility] Comment on above: Performed By: #### M G, BMP, URIC, ALB, PHOS #### [facility] [address] [place] [address] Dr. Terence Love EOS% 0.0 % Critically low 0.9-7.0 [facility] Comment on above: Performed By: #### M G, BMP, URIC, ALB, PHOS #### [facility] [address] [place] [address] Dr. Terence Love HCT 41.3 % Critically low 42.0-54.0 [facility] Comment on above: Performed By: #### M G, BMP, URIC, ALB, PHOS #### [facility] [address] [place] [address] Dr. Terence Love HGB 13.8 g/dl Critically low 14.0-18.0 [facility] Comment on above: Performed By: #### M G, BMP, URIC, ALB, PHOS #### [facility] [address] [place] [address] Dr. Terence Love LYMPHM # 0.19 103/ul Critically low 1.20-3.80 [facility] Comment on above: Performed By: #### M G, BMP, URIC, ALB, PHOS #### [facility] [address] [place] [address] Dr. Terence Love LYMPHM% 2.0 % Critically low 20.5-60.0 [facility] Comment on above: Performed By: #### M G, BMP, URIC, ALB, PHOS #### [facility] [address] [place] [address] Dr. Terence Love MCH 29.4 pg Normal 25.9-34.0 [facility] Comment on above: Performed By: #### M G, BMP, URIC, ALB, PHOS #### [facility] [address] [place] [address] Dr. Terence Love MCHC 33.4 g/dl Normal 29.9-35.2 [facility] Comment on above: Performed By: #### M G, BMP, URIC, ALB, PHOS #### [facility] [address] [address] [address] Terence Love MCV 87.9 fL Normal 80.0-94.0 [facility] Comment on above: Performed By: #### M G, BMP, URIC, ALB, PHOS #### [facility] [address] [place] [address] Dr. Terence Love METAMYELOCYTE # Normal [facility] Comment on above: Performed By: #### M G, BMP, URIC, ALB, PHOS #### [facility] [address] [place] [address] Dr. Terence Love METAMYELOCYTE % Normal [facility] Comment on above: Performed By: #### M G, BMP, URIC, ALB, PHOS #### [facility] [address] [place] [address] Dr. Terence Love MONOM# 0.10 103/ul Critically low 0.30-0.80 [facility] Comment on above: Performed By: #### M G, BMP, URIC, ALB, PHOS #### [facility] [address] [place] [address] Dr. Terence Love MONOM% 1.0 % Critically low 1.7-12.0 [facility] Comment on above: Performed By: #### M G, BMP, URIC, ALB, PHOS #### [facility] [address] [place] [address] Dr. Terence Love MPV 10.7 fL Normal 9.5-13.5 [facility] Comment on above: Performed By: #### M G, BMP, URIC, ALB, PHOS #### [facility] [address] [place] [address] Dr. Terence Love MYELOCYTE # Normal [facility] Comment on above: Performed By: #### M G, BMP, URIC, ALB, PHOS #### [facility] [address] [place] [address] Dr. Terence Love MYELOCYTE % Normal [facility] Comment on above: Performed By: #### M G, BMP, URIC, ALB, PHOS #### [facility] [address] [address] [address] Terence Love NRBC Normal [facility] Comment on above: Performed By: #### M G, BMP, URIC, ALB, PHOS #### [facility] [address] [address] [address] Terence Love PLT 214 103/ul Normal 150-450 [facility] Comment on above: Performed By: #### M G, BMP, URIC, ALB, PHOS #### [facility] [address] [address] [address] Terence Love RBC 4.70 106/ul Normal 4.70-6.10 [facility] Comment on above: Performed By: #### M G, BMP, URIC, ALB, PHOS #### [facility] [address] [place] [address] Dr. Terence Love RDW 13.2 % Normal 11.0-15.0 [facility] Comment on above: Performed By: #### M G, BMP, URIC, ALB, PHOS #### [facility] [address] [address] [address] Terence Love SEG # 8.83 103/ul Critically high 1.40-6.50 [facility] Comment on above: Performed By: #### M G, BMP, URIC, ALB, PHOS #### [facility] [address] [address] [address] Terence Love SEG % 92.0 % Critically high 43.0-75.0 [facility] Comment on above: Performed By: #### M G, BMP, URIC, ALB, PHOS #### [facility] [address] [address] [address] Terence Love WBC 9.6 103/ul Normal 4.0-11.0 [facility] Comment on above: Performed By: #### M G, BMP, URIC, ALB, PHOS #### [facility] [address] [address] [address] Terence Love PROF CHEM 8 (BAS METB)on Anion gap [Moles/Vol] 13.7 mmol/L Normal [facility] Comment on above: Performed By: #### M G, BMP, URIC, ALB, PHOS #### [facility] [address] [address] [address] Terence Love Calcium [Mass/Vol] 9.1 mg/dL Normal 8.5-10.1 [facility] Comment on above: Performed By: #### M G, BMP, URIC, ALB, PHOS #### [facility] [address] [place] [address] Dr. Terence Love Chloride [Moles/Vol] 102 mmol/L Normal 98-107 [facility] Comment on above: Performed By: #### M G, BMP, URIC, ALB, PHOS #### [facility] [address] [place] [address] Dr. Terence Love CO2 [Moles/Vol] 25.2 mmol/L Normal 21.0-32.0 [facility] Comment on above: Performed By: #### M G, BMP, URIC, ALB, PHOS #### [facility] [address] [place] [address] Dr. Terence Love Creatinine [Mass/Vol] 1.57 mg/dL Critically high 0.70-1.30 [facility] Comment on above: Performed By: #### M G, BMP, URIC, ALB, PHOS #### [facility] [address] [place] [address] Dr. Terence Love EGFR-AF MOROCCAN 52 mL/min/1.73m2 Critically low >=60 [facility] Comment on above: Performed By: #### M G, BMP, URIC, ALB, PHOS #### [facility] [address] [place] [address] Dr. Terence Love EGFR-NON AF MOROCCAN 43 mL/min/1.73m2 Critically low >=60 [facility] Comment on above: Performed By: #### M G, BMP, URIC, ALB, PHOS #### [facility] [address] [place] [address] Dr. Terence Love Glucose [Mass/Vol] 193 mg/dL Critically high 74-106 [facility] Comment on above: Performed By: #### M G, BMP, URIC, ALB, PHOS #### [facility] [address] [place] [address] Dr. Terence Love Potassium [Moles/Vol] 3.9 mmol/L Normal 3.5-5.1 [facility] Comment on above: Performed By: #### M G, BMP, URIC, ALB, PHOS #### [facility] [address] [place] [address] Dr. eTrence Love Sodium [Moles/Vol] 137 mmol/L Normal 136-145 [facility] Comment on above: Performed By: #### M G, BMP, URIC, ALB, PHOS #### [facility] [address] [place] [address] Dr. Terence Love Urea nitrogen [Mass/Vol] 26.0 mg/dL Critically high 7.0-18.0 [facility] Comment on above: Performed By: #### M G, BMP, URIC, ALB, PHOS #### [facility] [address] [place] [address] Dr. Terence Love Urea nitrogen/Creatinine [Mass ratio] 16.6 mg/mg Normal [facility] Comment on above: Performed By: #### M G, BMP, URIC, ALB, PHOS #### [facility] [address] [place] [address] Dr. Terence Love CBC AUTO DIFFon 12-15-2021 BASO # 0.0 103/ul Normal 0.0-0.1 [facility] Comment on above: Performed By: #### M G, BMP, URIC, ALB, PHOS #### [facility] [address] [place] [address] Dr. Terence Love Basophils/100 WBC (Bld) 0.4 % Normal 0.2-2.0 [facility] Comment on above: Performed By: #### M G, BMP, URIC, ALB, PHOS #### [facility] [address] [place] [address] Dr. Terence Love EO # 0.1 103/ul Normal 0.0-0.7 [facility] Comment on above: Performed By: #### M G, BMP, URIC, ALB, PHOS #### [facility] [address] [place] [address] Dr. Terence Love Eosinophils/100 WBC (Bld) 1.2 % Normal 0.9-7.0 [facility] Comment on above: Performed By: #### M G, BMP, URIC, ALB, PHOS #### [facility] [address] [place] [address] Dr. Terence Love Erythrocyte distribution width (RBC) [Ratio] 13.2 % Normal 11.0-15.0 [facility] Comment on above: Performed By: #### M G, BMP, URIC, ALB, PHOS #### [facility] [address] [place] [address] Dr. Terence Love Hematocrit (Bld) [Volume fraction] 43.3 % Normal 42.0-54.0 [facility] Comment on above: Performed By: #### M G, BMP, URIC, ALB, PHOS #### [facility] [address] [place] [address] Dr. Terence Love Hemoglobin (Bld) [Mass/Vol] 14.1 g/dL Normal 14.0-18.0 [facility] Comment on above: Performed By: #### M G, BMP, URIC, ALB, PHOS #### [facility] [address] [place] [address] Dr. Terence Love IG # 0.02 10e3/ul Normal 0.00-0.03 [facility] Comment on above: Performed By: #### M G, BMP, URIC, ALB, PHOS #### [facility] [address] [place] [address] Dr. Terence Love IG % 0.3 % Normal 0.0-0.5 [facility] Comment on above: Performed By: #### M G, BMP, URIC, ALB, PHOS #### [facility] [address] [place] [address] Dr. Terence Love LYMPH # 1.3 103/ul Normal 1.2-3.8 [facility] Comment on above: Performed By: #### M G, BMP, URIC, ALB, PHOS #### [facility] [address] [place] [address] Dr. Terence Love Lymphocytes/100 WBC (Bld) 18.0 % Critically low 20.5-60.0 [facility] Comment on above: Performed By: #### M G, BMP, URIC, ALB, PHOS #### [facility] [address] [place] [address] Dr. Terence Love MANUAL DIFF REQ NO Normal [facility] Comment on above: Performed By: #### M G, BMP, URIC, ALB, PHOS #### [facility] [address] [place] [address] Dr. Terence Love MCH (RBC) [Entitic mass] 29.4 pg Normal 25.9-34.0 [facility] Comment on above: Performed By: #### M G, BMP, URIC, ALB, PHOS #### [facility] [address] [place] [address] Dr. Terence Love MCHC (RBC) [Mass/Vol] 32.6 g/dL Normal 29.9-35.2 [facility] Comment on above: Performed By: #### M G, BMP, URIC, ALB, PHOS #### [facility] [address] [place] [address] Dr. Terence Love MCV (RBC) [Entitic vol] 90.2 fL Normal 80.0-94.0 [facility] Comment on above: Performed By: #### M G, BMP, URIC, ALB, PHOS #### [facility] [address] [place] [address] Dr. Terence Love MONO # 0.8 103/ul Normal 0.3-0.8 [facility] Comment on above: Performed By: #### M G, BMP, URIC, ALB, PHOS #### [facility] [address] [place] [address] Dr. Terence Love Monocytes/100 WBC (Bld) 11.2 % Normal 1.7-12.0 [facility] Comment on above: Performed By: #### M G, BMP, URIC, ALB, PHOS #### [facility] [address] [place] [address] Dr. Terence Love NEUT # 5.0 103/ul Normal 1.4-6.5 [facility] Comment on above: Performed By: #### M G, BMP, URIC, ALB, PHOS #### [facility] [address] [place] [address] Dr. Terence Love Neutrophils/100 WBC (Bld) 68.9 % Normal 43.0-75.0 [facility] Comment on above: Performed By: #### M G, BMP, URIC, ALB, PHOS #### [facility] [address] [place] [address] Dr. Terence Love Platelet mean volume (Bld) [Entitic vol] 10.5 fL Normal 9.5-13.5 [facility] Comment on above: Performed By: #### M G, BMP, URIC, ALB, PHOS #### [facility] [address] [place] [address] Dr. Terence Love PLT 211 103/ul Normal 150-450 [facility] Comment on above: Performed By: #### M G, BMP, URIC, ALB, PHOS #### [facility] [address] [place] [address] Dr. Terence Love RBC 4.80 106/ul Normal 4.70-6.10 [facility] Comment on above: Performed By: #### M G, BMP, URIC, ALB, PHOS #### [facility] [address] [place] [address] Dr. Terence Love WBC 7.3 103/ul Normal 4.0-11.0 [facility] Comment on above: Performed By: #### M G, BMP, URIC, ALB, PHOS #### [facility] [address] [place] [address] STROKE HEAD WOon [...] by: GEOVANNA URBINA Date: 2021-12-15 14:54 Normal [facility] CTA HEAD WO W CONon 12-16-19 22 CTA HEAD WO W CON EXAMINATION: CTA HEA D WO W CON, CTA NECK WO W [...] of the carotid arteries, vertebral arteries, or [place] of [place]rique. 2. 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 3. No specific findings to account for patient's symptoms. Electronically authenticated by: PAPITO GUAMAN Date: 2021-12-15 17:12 Normal [facility] Covid-19 PCR (CVDTB)on 12-01 SARS-CoV-2 (COVID-19) RNA KOLTON+probe Ql (Unsp spec) Not detected Normal NOT DETECTED [facility] Comment on above: Result Comment: When diagnostic [...] for this test is supported by the [place] of Health and Human Service's declaration that [...] M G, BMP, URIC, ALB, PHOS #### [facility] [address] [place] [address] Dr. Terence Love ER URINE PROFILEon 2 Bilirubin Ql (U) Negative Normal NEGATIVE [facility] Comment on above: Performed By: #### M G, BMP, URIC, ALB, PHOS #### [facility] [address] [address] [address] Terence Love Clarity (U) CLEAR Normal CLEAR [facility] Comment on above: Performed By: #### M G, BMP, URIC, ALB, PHOS #### [facility] [address] [place] [address] Dr. Terence Love Color (U) LT. YELLOW Normal YELLOW [facility] Comment on above: Performed By: #### M G, BMP, URIC, ALB, PHOS #### [facility] [address] [place] [address] Dr. Terence TORIBIO A micrscopic examination will be performed if indicated. Normal [facility] Comment on above: Performed By: #### M G, BMP, URIC, ALB, PHOS #### [facility] [address] [place] [address] Dr. Terence Love Glucose Ql (U) 100 mg/dl Abnormal NEGATIVE [facility] Comment on above: Performed By: #### M G, BMP, URIC, ALB, PHOS #### [facility] [address] [place] [address] Dr. Terence Love Hemoglobin Ql (U) Negative Normal NEGATIVE [facility] Comment on above: Performed By: #### M G, BMP, URIC, ALB, PHOS #### [facility] [address] [place] [address] Dr. Terence Love Ketones Ql (U) Negative Normal NEGATIVE [facility] Comment on above: Performed By: #### M G, BMP, URIC, ALB, PHOS #### [facility] [address] [place] [address] Dr. Terence Love LEUKOCYTES Negative Normal NEGATIVE [facility] Comment on above: Performed By: #### M G, BMP, URIC, ALB, PHOS #### [facility] [address] [place] [address] Dr. Terence Love Nitrite Ql (U) Negative Normal NEGATIVE [facility] Comment on above: Performed By: #### M G, BMP, URIC, ALB, PHOS #### [facility] [address] [place] [address] Dr. Terence Love pH (U) 5.5 [pH] Normal 5-9 [facility] Comment on above: Performed By: #### M G, BMP, URIC, ALB, PHOS #### [facility] [address] [address] [address] Terence Love SPEC GRAVITY 1.010 Normal 1.005-<=1.0 25 [facility] Comment on above: Performed By: #### M G, BMP, URIC, ALB, PHOS #### [facility] [address] [place] [address] Dr. Terence Love UA PROTEIN Negative Normal NEGATIVE/ TRACE [facility] Comment on above: Performed By: #### M G, BMP, URIC, ALB, PHOS #### [facility] [address] [place] [address] Dr. Terence Love UR MICRO IND NOT INDICATED Normal [facility] Comment on above: Performed By: #### M G, BMP, URIC, ALB, PHOS #### [facility] [address] [place] [address] Dr. Terence Love Urobilinogen Qn (U) 0.2 {Cherise'U}/dL Normal 0.2 - 1. 0 [facility] Comment on above: Performed By: #### M G, BMP, URIC, ALB, PHOS #### [facility] [address] [place] [address] Dr. Terence Love POINT OF CARE GLUCOSEon 12-01 Glucose [Mass/Vol] 124 mg/dL Critically high 74-106 [facility] Comment on above: Performed By: #### M G, BMP, URIC, ALB, PHOS #### [facility] [address] [place] [address] Dr. Terence Love PROF 14(COMP METB)on 022 Albumin [Mass/Vol] 4.0 g/dL Normal 3.4-5.0 [facility] Comment on above: Performed By: #### M G, BMP, URIC, ALB, PHOS #### [facility] [address] [place] [address] Dr. Terence Love Albumin/Globulin [Mass ratio] 1.1 {ratio} Normal [facility] Comment on above: Performed By: #### M G, BMP, URIC, ALB, PHOS #### [facility] [address] [place] [address] Dr. Terence Love ALP [Catalytic activity/Vol] 81 U/L Normal 46-116 [facility] Comment on above: Performed By: #### M G, BMP, URIC, ALB, PHOS #### [facility] [address] [place] [address] Dr. Terence Love ALT [Catalytic activity/Vol] 29 U/L Normal 16-63 [facility] Comment on above: Performed By: #### M G, BMP, URIC, ALB, PHOS #### [facility] [address] [place] [address] Dr. Terence Love Anion gap [Moles/Vol] 14.5 mmol/L Normal [facility] Comment on above: Performed By: #### M G, BMP, URIC, ALB, PHOS #### [facility] [address] [place] [address] Dr. Terence Love AST [Catalytic activity/Vol] 18 U/L Normal 15-37 [facility] Comment on above: Performed By: #### M G, BMP, URIC, ALB, PHOS #### [facility] [address] [place] [address] Dr. Terence Love Bilirubin [Mass/Vol] 0.8 mg/dL Normal 0.2-1.0 [facility] Comment on above: Performed By: #### M G, BMP, URIC, ALB, PHOS #### [facility] [address] [place] [address] Dr. Terence Love Calcium [Mass/Vol] 9.3 mg/dL Normal 8.5-10.1 [facility] Comment on above: Performed By: #### M G, BMP, URIC, ALB, PHOS #### [facility] [address] [place] [address] Dr. Terence Love Chloride [Moles/Vol] 102 mmol/L Normal 98-107 [facility] Comment on above: Performed By: #### M G, BMP, URIC, ALB, PHOS #### [facility] [address] [place] [address] Dr. Terence Love CO2 [Moles/Vol] 26.7 mmol/L Normal 21.0-32.0 [facility] Comment on above: Performed By: #### M G, BMP, URIC, ALB, PHOS #### [facility] [address] [place] [address] Dr. Terence Love Creatinine [Mass/Vol] 1.56 mg/dL Critically high 0.70-1.30 [facility] Comment on above: Performed By: #### M G, BMP, URIC, ALB, PHOS #### [facility] [address] [address] [address] Terence Love EGFR-AF MOROCCAN 52 mL/min/1.73m2 Critically low >=60 [facility] Comment on above: Performed By: #### M G, BMP, URIC, ALB, PHOS #### [facility] [address] [place] [address] Dr. Terence Love EGFR-NON AF MOROCCAN 43 mL/min/1.73m2 Critically low >=60 [facility] Comment on above: Performed By: #### M G, BMP, URIC, ALB, PHOS #### [facility] [address] [place] [address] Dr. Terence Love Globulin (S) [Mass/Vol] 3.6 g/dL Normal [facility] Comment on above: Performed By: #### M G, BMP, URIC, ALB, PHOS #### [facility] [address] [place] [address] Dr. Terence Love Glucose [Mass/Vol] 179 mg/dL Critically high 74-106 [facility] Comment on above: Performed By: #### M G, BMP, URIC, ALB, PHOS #### [facility] [address] [place] [address] Dr. Terence Love Potassium [Moles/Vol] 4.2 mmol/L Normal 3.5-5.1 [facility] Comment on above: Performed By: #### M G, BMP, URIC, ALB, PHOS #### [facility] [address] [place] [address] Dr. Terence Love Protein [Mass/Vol] 7.6 g/dL Normal 6.4-8.2 [facility] Comment on above: Performed By: #### M G, BMP, URIC, ALB, PHOS #### [facility] [address] [place] [address] Dr. Terence Love Sodium [Moles/Vol] 139 mmol/L Normal 136-145 [facility] Comment on above: Performed By: #### M G, BMP, URIC, ALB, PHOS #### [facility] [address] [place] [address] Dr. Terence Love Urea nitrogen [Mass/Vol] 26.0 mg/dL Critically high 7.0-18.0 The [facility] Comment on above: Performed By: #### M G, BMP, URIC, ALB, PHOS #### [facility] [address] [place] [address] Dr. Terence Love Urea nitrogen/Creatinine [Mass ratio] 16.7 mg/mg Normal The [facility] Comment on above: Performed By: #### M G, BMP, URIC, ALB, PHOS #### [facility] [address] [place] [address] Dr. Terence Love PROTIMEon 12-15-2021 INR Coag (PPP) [Relative time] 1.01 {INR} Normal The [facility] Comment on above: Performed By: #### M G, BMP, URIC, ALB, PHOS #### [facility] [address] [place] [address] Dr. Terence Love INR GUIDELINES SEE BELOW Normal [facility] Comment on above: Result Comment: THERESA RED INR: 2.0 - 3.0 CONDITIONS NOT LISTED BELOW 2.5 - 3.5 FOR PROSTHETIC HEART VALVE REPLACEMENT 2.5 - 3.5 RECURRENT THROMBOSIS Performed By: #### M G, BMP, URIC, ALB, PHOS #### [facility] [address] [place] [address] Dr. Terence Love PT Coag (PPP) [Time] 10.9 s Normal 9.0-11.6 The [facility] Comment on above: Performed By: #### M G, BMP, URIC, ALB, PHOS #### [facility] [address] [address] [address] Terence Love PTTon 12-15-2021 aPTT Coag (Bld) [Time] 26.8 s Normal 22.3-36.2 Th e [facility] Comment on above: Performed By: #### M G, BMP, URIC, ALB, PHOS #### [facility] [address] [address] [address] Terence Love TROPONIN, HIGH SENSITIVITYon 12-15-2021 HSTROP 6.0 pg/mL Normal 4.0-76.1 [facility] Comment on above: Result Comment: CUT- OFF POINTS HAVE BEEN ESTABLISHED BASED ON THE FOURTH UNIVERSAL DEFINITIONS OF MYOCARDIAL INFARCTION. THE UPPER REFERENCE LIMIT (URL) OF TROPONIN, DEFINED THE 99TH PERCENTILE OF cTnI DISTRIBUTION IN A REFERENCE POPULATION, HAS BEEN CONFIRMED THE DECISION THRESHOLD FOR MO DIAGNOSIS. Performed By: #### M G, BMP, URIC, ALB, PHOS #### [facility] [address] [place] [address] Dr. Terence Love TSHon 12-15-2021 TSH 1.163 uIU/mL Normal 0.358-3.740 The [facility] Comment on above: Performed By: #### M G, BMP, URIC, ALB, PHOS #### [facility] [address] [place] [address] Dr. Terence Love XR CHEST 2 Von [...] GEORGIE CHARLES Date: 2021-12-15 14:50 Normal The [facility] CBC AUTO DIFFon 12-14-2021 BASO # 0.0 103/ul Normal 0.0-0.1 [facility] Comment on above: Performed By: #### M G, BMP, URIC, ALB, PHOS #### [facility] [address] [place] [address] Dr. Terence Love Basophils/100 WBC (Bld) 0.6 % Normal 0.2-2.0 [facility] Comment on above: Performed By: #### M G, BMP, URIC, ALB, PHOS #### [facility] [address] [place] [address] Dr. Terence Love EO # 0.1 103/ul Normal 0.0-0.7 [facility] Comment on above: Performed By: #### M G, BMP, URIC, ALB, PHOS #### [facility] [address] [place] [address] Dr. Terence Love Eosinophils/100 WBC (Bld) 1.4 % Normal 0.9-7.0 [facility] Comment on above: Performed By: #### M G, BMP, URIC, ALB, PHOS #### [facility] [address] [place] [address] Dr. Terence oLve Erythrocyte distribution width (RBC) [Ratio] 13.2 % Normal 11.0-15.0 [facility] Comment on above: Performed By: #### M G, BMP, URIC, ALB, PHOS #### [facility] [address] [place] [address] Dr. Terence Love Hematocrit (Bld) [Volume fraction] 40.6 % Critically low 42.0-54.0 [facility] Comment on above: Performed By: #### M G, BMP, URIC, ALB, PHOS #### [facility] [address] [place] [address] Dr. Terence Love Hemoglobin (Bld) [Mass/Vol] 13.3 g/dL Critically low 14.0-18.0 [facility] Comment on above: Performed By: #### M G, BMP, URIC, ALB, PHOS #### [facility] [address] [place] [address] Dr. Terence Love IG # 0.03 10e3/ul Normal 0.00-0.03 [facility] Comment on above: Performed By: #### M G, BMP, URIC, ALB, PHOS #### [facility] [address] [place] [address] Dr. Terence Love IG % 0.4 % Normal 0.0-0.5 [facility] Comment on above: Performed By: #### M G, BMP, URIC, ALB, PHOS #### [facility] [address] [place] [address] Dr. Terence Love LYMPH # 1.2 103/ul Normal 1.2-3.8 [facility] Comment on above: Performed By: #### M G, BMP, URIC, ALB, PHOS #### [facility] [address] [place] [address] Dr. Terence Love Lymphocytes/100 WBC (Bld) 17.5 % Critically low 20.5-60.0 [facility] Comment on above: Performed By: #### M G, BMP, URIC, ALB, PHOS #### [facility] [address] [place] [address] Dr. Terence Love MANUAL DIFF REQ NO Normal [facility] Comment on above: Performed By: #### M G, BMP, URIC, ALB, PHOS #### [facility] [address] [place] [address] Dr. Terence Love MCH (RBC) [Entitic mass] 29.6 pg Normal 25.9-34.0 [facility] Comment on above: Performed By: #### M G, BMP, URIC, ALB, PHOS #### [facility] [address] [place] [address] Dr. Terence Love MCHC (RBC) [Mass/Vol] 32.8 g/dL Normal 29.9-35.2 [facility] Comment on above: Performed By: #### M G, BMP, URIC, ALB, PHOS #### [facility] [address] [place] [address] Dr. Terence Love MCV (RBC) [Entitic vol] 90.4 fL Normal 80.0-94.0 [facility] Comment on above: Performed By: #### M G, BMP, URIC, ALB, PHOS #### [facility] [address] [place] [address] Dr. Terence Love MONO # 0.7 103/ul Normal 0.3-0.8 [facility] Comment on above: Performed By: #### M G, BMP, URIC, ALB, PHOS #### [facility] [address] [place] [address] Dr. Terence Love Monocytes/100 WBC (Bld) 10.4 % Normal 1.7-12.0 [facility] Comment on above: Performed By: #### M G, BMP, URIC, ALB, PHOS #### [facility] [address] [place] [address] Dr. Terence Love NEUT # 4.8 103/ul Normal 1.4-6.5 [facility] Comment on above: Performed By: #### M G, BMP, URIC, ALB, PHOS #### [facility] [address] [place] [address] Dr. Terence Love Neutrophils/100 WBC (Bld) 69.7 % Normal 43.0-75.0 [facility] Comment on above: Performed By: #### M G, BMP, URIC, ALB, PHOS #### [facility] [address] [place] [address] Dr. Terence Love Platelet mean volume (Bld) [Entitic vol] 11.0 fL Normal 9.5-13.5 [facility] Comment on above: Performed By: #### M G, BMP, URIC, ALB, PHOS #### [facility] [address] [place] [address] Dr. Terence Love PLT 202 103/ul Normal 150-450 The [facility] Comment on above: Performed By: #### M G, BMP, URIC, ALB, PHOS #### [facility] [address] [place] [address] Dr. Terence Love RBC 4.49 106/ul Critically low 4.70-6.10 The [facility] Comment on above: Performed By: #### M G, BMP, URIC, ALB, PHOS #### [facility] [address] [address] [address] Terence Love WBC 6.9 103/ul Normal 4.0-11.0 [facility] Comment on above: Performed By: #### M G, BMP, URIC, ALB, PHOS #### [facility] [address] [place] [address] Dr. Terence Love GLYCOHEMOGLOBIN A1Con 2021 ADA RECOMMENDATION SEE BELOW Normal [facility] Comment on above: Result Comment: ADA RECOMMENDED LIMIT 4.0 - 6.0 ADA THERAPEUTIC TARGET < 7.0 ACTION SUGGESTED > 7.0 Performed By: #### M G, BMP, URIC, ALB, PHOS #### [facility] [address] [place] [address] Dr. Terence Love Glucose [Mass/Vol] 180 mg/dL Normal [facility] Comment on above: Performed By: #### M G, BMP, URIC, ALB, PHOS #### [facility] [address] [place] [address] Dr. Terence Love HbA1c (Bld) [Mass fraction] 7.9 % Critically high 4.5-6.2 [facility] Comment on above: Performed By: #### M G, BMP, URIC, ALB, PHOS #### [facility] [address] [place] [address] Dr. Terence Love LIPID PROFILEon 12-14-2021 CHOL-HDL RATIO NORM SEE BELOW Normal [facility] Comment on above: Result Comment: 3.3 - 4.4 LOW RISK 4.4 - 7.1 AVERAGE RISK 7.1 - 11.0 MODERATE RISK >11.0 HIGH RISK Performed By: #### M G, BMP, URIC, ALB, PHOS #### [facility] [address] [place] [address] Dr. Terence Love Cholesterol [Mass/Vol] 156 mg/dL Normal <=200 [facility] Comment on above: Performed By: #### M G, BMP, URIC, ALB, PHOS #### [facility] [address] [address] [address] Terence Love Cholesterol in HDL [Mass/Vol] 55 mg/dL Normal 40-60 [facility] Comment on above: Performed By: #### M G, BMP, URIC, ALB, PHOS #### [facility] [address] [address] [address] Terence Love Cholesterol in LDL [Mass/Vol] 76.2 mg/dL Normal [facility] Comment on above: Performed By: #### M G, BMP, URIC, ALB, PHOS #### [facility] [address] [address] [address] Terence Love Cholesterol.total/Dotty sterol in HDL [Mass ratio] 2.8 {ratio} Normal [facility] Comment on above: Performed By: #### M G, BMP, URIC, ALB, PHOS #### [facility] [address] [place] [address] Dr. Terence Love HDL NORMAL > or = 60 mg/dl - LO W CARDIOVASCULAR RISK <40 mg/dl - HIGH CARDIOVASCULAR RISK Normal [facility] Comment on above: Performed By: #### M G, BMP, URIC, ALB, PHOS #### [facility] [address] [place] [address] Dr. Terence Love LDL CALC NORMAL SEE BELOW Normal [facility] Comment on above: Result Comment: <100 mg/dl OPTIMAL 100 - 129 mg/dl NEAR OR ABOVE OPTIMAL 130 - 159 mg/dl BORDERLINE HIGH 160 - 189 mg/dl HIGH >190 mg/dl VERY HIGH Performed By: #### M G, BMP, URIC, ALB, PHOS #### [facility] [address] [place] [address] Dr. Terence Love Triglyceride [Mass/Vol] 124 mg/dL Normal <=150 T [facility] Comment on above: Performed By: #### M G, BMP, URIC, ALB, PHOS #### [facility] [address] [address] [address] Terence Love VLDL CALC 24.8 mg/dL Normal [facility] Comment on above: Performed By: #### M G, BMP, URIC, ALB, PHOS #### [facility] [address] [place] [address] Dr. Terence Love MICROALBUMIN, RAND URon 12-01 mALB 1.3 mg/L Normal <=30.0 [facility] Comment on above: Performed By: #### M G, BMP, URIC, ALB, PHOS #### [facility] [address] [place] [address] Dr. Terence Love PROF CHEM 8 (BAS METB)on Anion gap [Moles/Vol] 8.9 mmol/L Normal [facility] Comment on above: Performed By: #### M G, BMP, URIC, ALB, PHOS #### [facility] [address] [place] [address] Dr. Terence Love Calcium [Mass/Vol] 8.6 mg/dL Normal 8.5-10.1 [facility] Comment on above: Performed By: #### M G, BMP, URIC, ALB, PHOS #### [facility] [address] [place] [address] Dr. Terence Love Chloride [Moles/Vol] 104 mmol/L Normal 98-107 The [facility] Comment on above: Performed By: #### M G, BMP, URIC, ALB, PHOS #### [facility] [address] [place] [address] Dr. Terence Love CO2 [Moles/Vol] 30.5 mmol/L Normal 21.0-32.0 [facility] Comment on above: Performed By: #### M G, BMP, URIC, ALB, PHOS #### [facility] [address] [place] [address] Dr. Terenec Love Creatinine [Mass/Vol] 1.71 mg/dL Critically high 0.70-1.30 [facility] Comment on above: Performed By: #### M G, BMP, URIC, ALB, PHOS #### [facility] [address] [place] [address] Dr. Terence Love EGFR-AF MOROCCAN 47 mL/min/1.73m2 Critically low >=60 [facility] Comment on above: Performed By: #### M G, BMP, URIC, ALB, PHOS #### [facility] [address] [address] [address] Terence Love EGFR-NON AF MOROCCAN 39 mL/min/1.73m2 Critically low >=60 [facility] Comment on above: Performed By: #### M G, BMP, URIC, ALB, PHOS #### [facility] [address] [place] [address] Dr. Terence Love Glucose [Mass/Vol] 214 mg/dL Critically high 74-106 T [facility] Comment on above: Performed By: #### M G, BMP, URIC, ALB, PHOS #### [facility] [address] [place] [address] Dr. Terence Love Potassium [Moles/Vol] 4.4 mmol/L Normal 3.5-5.1 [facility] Comment on above: Performed By: #### M G, BMP, URIC, ALB, PHOS #### [facility] [address] [place] [address] Dr. Terence Love Sodium [Moles/Vol] 139 mmol/L Normal 136-145 [facility] Comment on above: Performed By: #### M G, BMP, URIC, ALB, PHOS #### [facility] [address] [place] [address] Dr. Terence Love Urea nitrogen [Mass/Vol] 32.0 mg/dL Critically high 7.0-18.0 [facility] Comment on above: Performed By: #### M G, BMP, URIC, ALB, PHOS #### [facility] [address] [place] [address] Dr. Terence Love Urea nitrogen/Creatinine [Mass ratio] 18.7 mg/mg Normal [facility] Comment on above: Performed By: #### M G, BMP, URIC, ALB, PHOS #### [facility] [address] [place] [address] Dr. Terence Love SGOTon 12-14-2021 AST [Catalytic activity/Vol] 14 U/L Critically low 15-37 [facility] Comment on above: Performed By: #### M G, BMP, URIC, ALB, PHOS #### [facility] [address] [place], [place] [address] Dr. Terence Love REINAPTon 12-14-2021 ALT [Catalytic activity/Vol] 27 U/L Normal 16-63 [facility] Comment on above: Performed By: #### M G, BMP, URIC, ALB, PHOS #### [facility] [address] [place], [place] [address] Dr. Terence Love XR knee RT 4V*on 05-01-2021 XR knee RT 4V* [facility] [employer] Other XR knee RT 4V* [facility] [employer] Other XR knee RT 4V* [address] [place] [address] [employer] Other XR knee RT 4V* [place] [id number] No rt [employer] Other XR knee RT 4V* XRay Report [employer] Other XR knee RT 4V* Signed [employer] Other XR knee RT 4V* Patient: Jason Bartholomew MR#: [id number] [place] [employer] Other XR knee RT 4V* 778 [employer] Other XR knee RT 4V* : 1945 Acct:[id number] [employer] Other XR knee RT 4V* Age/Sex: 75 / M ADM Date: 05/01/21 [employer] Other XR knee RT 4V* Loc: XDUCLY Room: Type: [facility] [employer] Other XR knee RT 4V* Attending Dr: Sonali Haddad [employer] ENGINEER-C [employer] Other XR knee RT 4V* Ordering Provider: ERICH Rosen [place] [employer] Other XR knee RT 4V* Date of Service: 05/01/21 [place] [employer] Other XR knee RT 4V* XR/XR knee RT 4V*: Acute pain of right knee [place] [employer] Other XR knee RT 4V* ([id number]) XR/XR ankle RT min 3V*: Acute pain of right knee;Acute right ankle pain [employer] Other XR knee RT 4V* Copies to: ERICH Rosen [employer] Other XR knee RT 4V* CLINICAL DATA: Patient was moving a box and slipped and fell yesterday. Lateral right ankle and [employer] Other XR knee RT 4V* medial right knee pain. [employer] Other XR knee RT 4V* RIGHT ANKLE - 3 views [employer] Other XR knee RT 4V* COMPARISON: None [place] [employer] Other XR knee RT 4V* AP, lateral and oblique views were obtained. There is osteopenia. There is no evidence of [employer] Other XR knee RT 4V* fracture or dislocation. There are minor degenerative changes with spurring at the dorsum of the [employer] Other XR knee RT 4V* talus and calcaneal spurs. There is mild anterolateral soft tissue swelling. There is [employer] Other XR knee RT 4V* atherosclerotic disease. [employer] Other XR knee RT 4V* XR/XR ankle RT min 3V* [employer] Other XR knee RT 4V* IMPRESSION: [employer] [facility] [employer] Other XR knee RT 4V* NO DEFINITE ACUTE BONY INJURY. [employer] Other XR knee RT 4V* RIGHT KNEE - 4 views [employer] Other XR knee RT 4V* AP, lateral and both oblique views were obtained. There is no acute fracture or dislocation. There [employer] Other XR knee RT 4V* is mild narrowing of the medial tibiofemoral and patellofemoral joint compartments. There is mild [employer] Other XR knee RT 4V* marginal spurring. There is a trace amount of joint fluid. No focal soft tissue swelling is noted. [employer] Other XR knee RT 4V* OSTEOPENIA AND DEGENERATIVE CHANGES. [employer] Other XR knee RT 4V* NO ACUTE BONY INJURY. [employer] Other XR knee RT 4V* Impression dictated by: Char Jade M.D.05/01/2021 12:06 PM [employer] Other XR knee RT 4V* Dictation Location: [place] [address] [employer] Other XR knee RT 4V* Transcribed By: [facility] 05/01/21 1206 [employer] Other XR knee RT 4V* Dictated By: Char Jade MD 05/01/21 1203 [employer] Other XR knee RT 4V* Signed By: [employer] Other XR knee RT 4V* 05/01/21 1202 [employer] Other Cardiovascular Lab Reporton 06-14-2019 Cardiovascular Lab Report [facility] Patient Name: [facility] A MR #: [id number] Department of Physician: Gilberto Manning M.D. Division of Service Date: 06/12/2019 Cardiology Birthdate: 1945 Adult Cardiovascular Room #: 3CD [id number] [facility] [address] [place] [id number] Cardiovascular Laboratory Report INDICATIONS: The patient is [...] A Gilberto Manning M.D. Date Dict: 06/14/2019/09:06 Kita Manning M.D. Date Trans: 06/14/2019 10:16 Skip/bert [id number] cc: Idris Jose M.D. [address] [place] [address] Normal [facility] BASIC METABOLIC PANELon 06-02 Calcium [Mass/Vol] 8.8 mg/dL Normal 8.6-10.[address] [facility] Comment on above: Order Comment: No: D o not add to previous draw Performed By: #### 1 0, [id number] ####[facility] [place] [address], [facility] Chloride [Moles/Vol] 104 mmol/L Normal 98-107 [facility] Comment on above: Order Comment: No: D o not add to previous draw Performed By: #### 1 0, [id number] ####[facility] [place] [address], [facility] CO2 [Moles/Vol] 28 mmol/L Normal 21-31 [facility] Comment on above: Order Comment: No: D o not add to previous draw Performed By: #### 1 0, [id number] ####[facility] [place] [address], [facility] Creatinine [Mass/Vol] 1.39 mg/dL High 0.70-1.30 [facility] Comment on above: Order Comment: No: D o not add to previous draw Performed By: #### 1 69, [id number] ####[facility] [place] [address], [facility] GFR/1.73 sq M predicted among blacks MDRD (S/P/Bld) [Vol rate/Area] 60 ml/min/1.73sq m Abnormal >60 The [facility] Comment on above: Order Comment: No: D o not add to previous draw Result Comment: Calc ulation may not be valid for patients over 70 years Performed By: #### 1 69, [id number] ####[facility] [place] [address], [facility] GFR/1.73 sq M predicted among non-blacks MDRD (S/P/Bld) [Vol rate/Area] 50 ml/min/1.73sq m Abnormal >60 [facility] Comment on above: Order Comment: No: D o not add to previous draw Result Comment: Calc ulation may not be valid for patients over 70 years Performed By: #### 1 69, [id number] ####[facility] [place] [address], [facility] Glucose [Mass/Vol] 128 mg/dL High 70-[address] [facility] Comment on above: Order Comment: No: D o not add to previous draw Performed By: #### 1 69, [id number] ####[facility] [place] [address], [facility] [facility] Potassium [Moles/Vol] 3.3 mmol/L Low 3.5-5.1 [facility] Comment on above: Order Comment: No: D o not add to previous draw Performed By: #### 1 69, 98962 ####[facility] [place] [address], [facility] Sodium [Moles/Vol] 143 mmol/L Normal 136-[address] [facility] Comment on above: Order Comment: No: D o not add to previous draw Performed By: #### 1 69, 11706 ####[facility] [facility].[address] Urea nitrogen [Mass/Vol] 40 mg/dL High 7-25 [facility] Comment on above: Order Comment: No: D o not add to previous draw Performed By: #### 1 69, 97566 ####[facility] [facility].[address] CBC COMPLETE BLOOD COUNTon 08-14-2018 Erythrocyte distribution width (RBC) [Ratio] 14.0 % Normal 11.5-15.0 [facility] Comment on above: Order Comment: No: D o not add to previous draw Dup Performed By: #### 5 0608 #### [facility] [address] [place] [address], [facility] Hematocrit (Bld) [Volume fraction] 30.5 % Low 39.0-50.0 [facility] Comment on above: Order Comment: No: D o not add to previous draw Dup Performed By: #### 5 0608 #### [facility] [address] [facility] [place] [address], [facility] Hemoglobin (Bld) [Mass/Vol] 9.9 g/dL Low 13.0-17.0 [facility] Comment on above: Order Comment: No: D o not add to previous draw Dup Performed By: #### 5 0608 #### [facility] [address] [place] [address], [facility] MCH (RBC) [Entitic mass] 30.0 pg Normal 27.0-33.0 [facility] Comment on above: Order Comment: No: D o not add to previous draw Dup Performed By: #### 5 0608 #### [facility] [address] [place] [address], [facility] MCHC (RBC) [Mass/Vol] 32.5 g/dL Normal 32.0-35.0 [facility] Comment on above: Order Comment: No: D o not add to previous draw Dup Performed By: #### 5 0608 #### [facility] [address] [place] [address], [facility] MCV (RBC) [Entitic vol] 92.4 fL Normal 82.0-98.0 T [facility] Comment on above: Order Comment: No: D o not add to previous draw Dup Performed By: #### 5 0608 #### [facility] [address] [place] [address], [facility] Nucleated RBC/100 WBC (Bld) [Ratio] 0 % Normal 0-0 [facility] Comment on above: Order Comment: No: D o not add to previous draw Dup Performed By: #### 5 0608 #### [facility] [address] [place] [address], [facility] PLAT CNT 154 10*3/uL Normal 150-400 The [facility] Comment on above: Order Comment: No: D o not add to previous draw Dup Performed By: #### 5 0608 #### [facility] [address] [facility] [place] [address], [facility] RBC (Bld) [#/Vol] 3.30 10*6/uL Low 4.20-5.70 The [facility] Comment on above: Order Comment: No: D o not add to previous draw Dup Performed By: #### 5 0608 #### [facility] [address] [place] [address], [facility] WBC (Bld) [#/Vol] 11.68 10*3/uL High 4.00-10.60 [facility] Comment on above: Order Comment: No: D o not add to previous draw Dup Performed By: #### 5 0608 #### [facility] [address] [place] [address], [facility] MAGNESIUM BLOODon 06-13-2019 Magnesium [Mass/Vol] 1.8 mg/dL Low 1.9-2.7 [facility] Comment on above: Order Comment: No: D o not add to previous draw Performed By: #### 8 7002 #### [facility] [address] [place] [address], [facility] POC GLUCOSE LABon 06-13-2019 Glucose [Mass/Vol] 341 mg/dL High 70-[address] [facility] Comment on above: Performed By: #### 8 5499 #### [facility] [address] [place] [address], [facility] Glucose [Mass/Vol] 124 mg/dL High 70-[address] [facility] Comment on above: Performed By: #### 3 0738 #### [facility] [address] [place] [address], [facility] PORTABLE CHEST 1 VIEWon 06-02 PORTABLE CHEST 1 VIEW [facility] Department of Radiology [address] [place] [id number] Patient Name: JASON BARTHOLOMEW : 1945 Sex: M Age: Race: White Pt. Location: [id number] Patient Status: I Ordered Date: 06/13/2019 7:00:00 [...] appreciated. Electronically signed by:Noreen Menendez. Transcribed by: [email or web address], User Resident: Electronically Signed by: NOREEN MENENDEZ @ 06/13/2019 08:20 AM Normal [facility] Comment on above: Order Comment: R/O P neumothorax PROTHROMBIN TIMEon 9 INR Coag (PPP) [Relative time] 1.14 {INR} Normal 0.91-1.16 [facility] Comment on above: Order Comment: [...] 1995;[id number]. Performed By: #### 8 [id number] #### [facility] [address] [place] [address], [facility] PT Coag (PPP) [Time] 14.7 s Normal 12.3-14.8 [facility] Comment on above: Order Comment: No: D o not add to previous draw Result Comment: ALL RESULTS MUST BE INTERPRETED WITH RESPECT TO BLOOD DRAWING ARTIFACT OR DILUTION ERROR OF ANTICOAGULANT AT THE TIME OF SAMPLING. Performed By: #### 8 [id number] #### [facility] [address] [place] [address], [facility] BASIC METABOLIC PANELon 06-02 Calcium [Mass/Vol] 9.1 mg/dL Normal 8.6-10.3 [facility] Comment on above: Order Comment: No: D o not add to previous draw Performed By: #### 8 [id number] #### [facility] [address] [place] [address], [place] Chloride [Moles/Vol] 110 mmol/L High 98-107 [facility] Comment on above: Order Comment: No: D o not add to previous draw Performed By: #### 8 [id number] #### [facility] [address] [place] [address], [place] CO2 [Moles/Vol] 27 mmol/L Normal 21-31 [facility] Comment on above: Order Comment: No: D o not add to previous draw Performed By: #### 8 5499 #### [facility] [address] [place] [address], [place] Creatinine [Mass/Vol] 1.48 mg/dL High 0.70-1.30 [facility] Comment on above: Order Comment: No: D o not add to previous draw Performed By: #### 8 [id number] #### [facility] [address] [place] [address], [place] GFR/1.73 sq M predicted among blacks MDRD (S/P/Bld) [Vol rate/Area] 56 ml/min/1.73sq m Abnormal >60 [facility] Comment on above: Order Comment: No: D o not add to previous draw Result Comment: Calc ulation may not be valid for patients over 70 years Performed By: #### 8 [id number] #### [facility] [address] [place] [address], [place] GFR/1.73 sq M predicted among non-blacks MDRD (S/P/Bld) [Vol rate/Area] 46 ml/min/1.73sq m Abnormal >60 [facility] Comment on above: Order Comment: No: D o not add to previous draw Result Comment: Calc ulation may not be valid for patients over 70 years Performed By: #### 8 [id number] #### [facility] [address] [place] [address], [place] Glucose [Mass/Vol] 152 mg/dL High 70-[address] [facility] Comment on above: Order Comment: No: D o not add to previous draw Performed By: #### 8 [id number] #### [facility] [address] [place] [address], [place] Potassium [Moles/Vol] 3.4 mmol/L Low 3.5-5.1 [facility] Comment on above: Order Comment: No: D o not add to previous draw Performed By: #### 8 [id number] #### [facility] [address] [place] [address], [place] Sodium [Moles/Vol] 147 mmol/L High 136-[address] [facility] Comment on above: Order Comment: No: D o not add to previous draw Performed By: #### 8 [id number] #### [facility] [address] [place] [address], [facility] Urea nitrogen [Mass/Vol] 54 mg/dL High 7-25 [facility] Comment on above: Order Comment: No: D o not add to previous draw Performed By: #### 8 [id number] #### [facility] [address] [place] [address], [facility] CBC COMPLETE BLOOD COUNTon 08-13-2018 Erythrocyte distribution width (RBC) [Ratio] 14.4 % Normal 11.5-15.0 [facility] Comment on above: Order Comment: No: D o not add to previous draw Dup Performed By: #### 5 0608 #### [facility] [address] [place] [address], [facility] Hematocrit (Bld) [Volume fraction] 27.7 % Low 39.0-50.0 [facility] Comment on above: Order Comment: No: D o not add to previous draw Dup Performed By: #### 5 0608 #### [facility] [address] [place] [address], [facility] Hemoglobin (Bld) [Mass/Vol] 9.0 g/dL Low 13.0-17.0 [facility] Comment on above: Order Comment: No: D o not add to previous draw Dup Performed By: #### 5 0608 #### [facility] [address] [place] [address], [facility] MCH (RBC) [Entitic mass] 30.0 pg Normal 27.0-33.0 [facility] Comment on above: Order Comment: No: D o not add to previous draw Dup Performed By: #### 5 0608 #### [facility] [address] [place] [address], [facility] MCHC (RBC) [Mass/Vol] 32.5 g/dL Normal 32.0-35.0 [facility] Comment on above: Order Comment: No: D o not add to previous draw Dup Performed By: #### 5 0608 #### [facility] [address] [place] [address], [facility] MCV (RBC) [Entitic vol] 92.3 fL Normal 82.0-98.0 T [facility] Comment on above: Order Comment: No: D o not add to previous draw Dup Performed By: #### 5 0608 #### [facility] [address] [place] [address], [facility] Nucleated RBC/100 WBC (Bld) [Ratio] 0 % Normal 0-0 [facility] Comment on above: Order Comment: No: D o not add to previous draw Dup Performed By: #### 5 0608 #### [facility] [address] [place] [address], [facility] PLAT CNT 121 10*3/uL Low 150-400 [facility] Comment on above: Order Comment: No: D o not add to previous draw Dup Performed By: #### 5 0608 #### [facility] [address] [place] [address], [facility] RBC (Bld) [#/Vol] 3.00 10*6/uL Low 4.20-5.70 [facility] Comment on above: Order Comment: No: D o not add to previous draw Dup Performed By: #### 5 0608 #### [facility] [address] [place] [address], [facility] WBC (Bld) [#/Vol] 10.60 10*3/uL Normal 4.00-10.60 [facility] Comment on above: Order Comment: No: D o not add to previous draw Dup Performed By: #### 5 0608 #### [facility] [address] Cardiovascular Lab Reporton 06-12-2019 Cardiovascular Lab Report [facility] Patient Name: [facility] A MR #: [id number] Department of Physician: Bryan Curtis, Medicine M.D. Division of Service Date: 06/11/2019 Cardiology Birthdate: 1945 Adult Cardiovascular Room #: [id number] [place] [address] Cardiovascular Laboratory Report [employer]NAGER: Hardeep Grimes M.D. PROCEDURE: Pacemaker in [...] fascia. Electrocautery was used to hemostasis. A 7-Italian SafeSheath was then advanced over the first [...] DATA: Medtronic battery/pulse generator, model #W1DI01, serial #[id number]. Leads/Medtronic. RA model #5076-45, serial #[id number]. RV lead, model #81759-67, serial #[id number]. MEASURED DATA: RA lead, P-wage 1.4 mV, [...] P Bryan Curtis M.D. Date Dict: 06/12/2019/06:41 Brionna Curtis M.D. Date Trans: 06/12/2019 07:42 Skip/bert [id number] cc: Idris Jose M.D. [address] [facility] [address] Normal [facility] MAGNESIUM BLOODon 06-12-2019 Magnesium [Mass/Vol] 2.2 mg/dL Normal 1.9-2.7 [facility] Comment on above: Order Comment: No: D o not add to previous draw Performed By: #### 8 [id number] #### [facility] [address] [place] [address], [facility] POC GLUCOSE LABon 06-12-2019 Glucose [Mass/Vol] 219 mg/dL High 70-[address] [facility] Comment on above: Performed By: #### 8 5499 #### [facility] [address] [place] [address], [place] Glucose [Mass/Vol] 56 mg/dL Low 70-[address] [facility] Comment on above: Performed By: #### 3 0738 #### [facility] [address] [place] [address], [place] Glucose [Mass/Vol] 270 mg/dL High 70-[address] [facility] Comment on above: Performed By: #### 8 5499 #### [facility] [address] [place] [address], [facility] Glucose [Mass/Vol] 156 mg/dL High 70-100 [facility] Comment on above: Performed By: #### 3 0313 #### [facility] [address] [place] [address], [facility] PORTABLE CHEST 1 VIEWon 06-02 PORTABLE CHEST 1 VIEW [facility] Department of Radiology [address] [place] [id number] Patient Name: JASON BARTHOLOMEW : 1945 Sex: M Age: Race: White Pt. Location: [id number] Patient Status: I Ordered Date: 06/12/2019 5:00:00 [...] pneumothorax. Electronically signed by:Lazaro Capone. Transcribed by: [email or web address], User Resident: Electronically Signed by: LAZARO CAPONE @ 06/12/2019 08:09 AM Normal [facility] Comment on above: Order Comment: R/O P neumothorax US RENALon 06-12-2019 RENAL [facility] Department of Radiology [address] [place] [id number] Patient Name: JASON BARTHOLOMEW : 1945 Sex: M Age: Race: White Pt. Location: [id number] Patient Status: I Ordered Date: 06/10/2019 3:25:00 [...] hydronephrosis. Electronically signed by:Gabby Bedolla. Transcribed by: [email or web address], User Resident: Electronically Signed by: GABBY BEDOLLA @ 06/12/2019 10:27 AM Normal [facility] Comment on above: Order Comment: R/O H ydronephrosis ARTERIAL BLOOD GAS WITH ICAo n 06-11-2019 BASE EXCESS 3 mmol/L Normal -2-3 [facility] Comment on above: Performed By: #### 8 4511 ####[facility] [facility].[address] DELIVERY SYSTEMS BIPAP 06/07 Normal [facility] Comment on above: Performed By: #### 8 4511 ####[facility] [place] [address], [facility] FIO2 40 % Normal [facility] Comment on above: Performed By: #### 8 4511 ####[facility] [place] [address], [facility] HCO3 (Bld) [Moles/Vol] 26 mmol/L Normal 21-28 Th e [facility] Comment on above: Performed By: #### 8 4511 ####[facility] [place] [address], [facility] IONIZED CALCIUM 1.20 mmol/L Normal 1.13-1.32 The [facility] Comment on above: Performed By: #### 8 4511 ####[facility] [place] [address], [facility] Oxygen (Bld) [Partial pressure] 62 mm[Hg] Low 83-108 [facility] Comment on above: Performed By: #### 8 4511 ####[facility] [place] [address], [facility] Oxygen saturation in Blood 93.8 % Low 94.0-97.0 [facility] Comment on above: Performed By: #### 8 4511 ####[facility] [place] [address], [facility] PCO2 32 mmHg Low 35-45 [facility] Comment on above: Performed By: #### 8 4511 ####[facility] [place] [address], [facility] pH (Bld) 7.52 [pH] High 7.35-7.45 [facility] Comment on above: Performed By: #### 8 4511 ####[facility] [address], [facility] BASIC METABOLIC PANELon 12- Calcium [Mass/Vol] 9.1 mg/dL Normal 8.6-10.3 [facility] Comment on above: Order Comment: No: D o not add to previous draw Performed By: #### 0 0071 ####[facility] [place] [address], [facility] Chloride [Moles/Vol] 107 mmol/L Normal 98-107 [facility] Comment on above: Order Comment: No: D o not add to previous draw Performed By: #### 0 0071 ####[facility] [place] [address], [place] CO2 [Moles/Vol] 28 mmol/L Normal 21-31 The [facility] Comment on above: Order Comment: No: D o not add to previous draw Performed By: #### 0 0071 ####[facility] [id number], [facility] Creatinine [Mass/Vol] 2.17 mg/dL High 0.70-1.30 [facility] Comment on above: Order Comment: No: D o not add to previous draw Performed By: #### 0 0071 ####[facility] [place] [address], [place] GFR/1.73 sq M predicted among blacks MDRD (S/P/Bld) [Vol rate/Area] 36 ml/min/1.73sq m Abnormal >60 [facility] Comment on above: Order Comment: No: D o not add to previous draw Result Comment: Calc ulation may not be valid for patients over 70 years Performed By: #### 0 0071 ####[facility] [place] [address], [place] GFR/1.73 sq M predicted among non-blacks MDRD (S/P/Bld) [Vol rate/Area] 30 ml/min/1.73sq m Abnormal >60 [facility] Comment on above: Order Comment: No: D o not add to previous draw Result Comment: Calc ulation may not be valid for patients over 70 years Performed By: #### 0 0071 ####[facility] [place] [address], [place] Glucose [Mass/Vol] 121 mg/dL High 70-[address] [facility] Comment on above: Order Comment: No: D o not add to previous draw Performed By: #### 0 0071 ####[facility] [place] [address], [place] Potassium [Moles/Vol] 3.5 mmol/L Normal 3.5-5.1 [facility] Comment on above: Order Comment: No: D o not add to previous draw Performed By: #### 0 0071 ####[facility] [place] [address], [place] Sodium [Moles/Vol] 143 mmol/L Normal 136-[address] [facility] Comment on above: Order Comment: No: D o not add to previous draw Performed By: #### 0 0071 ####[facility] [place] [address], [place] Urea nitrogen [Mass/Vol] 66 mg/dL High 7-25 [facility] Comment on above: Order Comment: No: D o not add to previous draw Performed By: #### 0 0071 ####[facility] [place] [address], [place] Calcium [Mass/Vol] 9.2 mg/dL Normal 8.6-10.3 [facility] Comment on above: Order Comment: No: D o not add to previous draw Performed By: #### 8 5499 #### [facility] [address] [place] [address], [place] Chloride [Moles/Vol] 105 mmol/L Normal 98-107 [facility] Comment on above: Order Comment: No: D o not add to previous draw Performed By: #### 8 5499 #### [facility] [address] [place] [address], [place] CO2 [Moles/Vol] 26 mmol/L Normal 21-31 [facility] Comment on above: Order Comment: No: D o not add to previous draw Performed By: #### 8 [id number] #### [facility] [address] [place] [address], [place] Creatinine [Mass/Vol] 2.43 mg/dL High 0.70-1.30 [facility] Comment on above: Order Comment: No: D o not add to previous draw Performed By: #### 8 [id number] #### [facility] [address] [place] [address], [place] GFR/1.73 sq M predicted among blacks MDRD (S/P/Bld) [Vol rate/Area] 32 ml/min/1.73sq m Abnormal >60 [facility] Comment on above: Order Comment: No: D o not add to previous draw Result Comment: Calc ulation may not be valid for patients over 70 years Performed By: #### 8 [id number] #### [facility] [address] [place] [address], [place] GFR/1.73 sq M predicted among non-blacks MDRD (S/P/Bld) [Vol rate/Area] 26 ml/min/1.73sq m Abnormal >60 [facility] Comment on above: Order Comment: No: D o not add to previous draw Result Comment: Calc ulation may not be valid for patients over 70 years Performed By: #### 8 [id number] #### [facility] [address] [place] [address], [place] Glucose [Mass/Vol] 160 mg/dL High 70-[address] [facility] Comment on above: Order Comment: No: D o not add to previous draw Performed By: #### 8 5499 #### [facility] [address] [place] [address], [place] Potassium [Moles/Vol] 3.6 mmol/L Normal 3.5-5.1 [facility] Comment on above: Order Comment: No: D o not add to previous draw Performed By: #### 8 5499 #### [facility] [address] [place] [address], [place] Sodium [Moles/Vol] 140 mmol/L Normal 136-[address] [facility] Comment on above: Order Comment: No: D o not add to previous draw Performed By: #### 8 [id number] #### [facility] [address] [place] [address], [place] Urea nitrogen [Mass/Vol] 68 mg/dL High 7-25 [facility] Comment on above: Order Comment: No: D o not add to previous draw Performed By: #### 8 [id number] #### [facility] [address] [place] [address], [place] CBC COMPLETE BLOOD COUNTon 08-12-2018 Erythrocyte distribution width (RBC) [Ratio] 14.3 % Normal 11.5-15.0 [facility] Comment on above: Order Comment: No: D o not add to previous draw Performed By: #### 3 0313 #### [facility] [address] [place] [address], [facility] Hematocrit (Bld) [Volume fraction] 25.1 % Low 39.0-50.0 [facility] Comment on above: Order Comment: No: D o not add to previous draw Performed By: #### 3 0313 #### [facility] [address] [place] [address], [facility] Hemoglobin (Bld) [Mass/Vol] 8.3 g/dL Low 13.0-17.0 [facility] Comment on above: Order Comment: No: D o not add to previous draw Performed By: #### 3 0313 #### [facility] [address] [place] [address], [facility] MCH (RBC) [Entitic mass] 29.9 pg Normal 27.0-33.0 [facility] Comment on above: Order Comment: No: D o not add to previous draw Performed By: #### 3 0313 #### [facility] [address] [place] [address], [facility] MCHC (RBC) [Mass/Vol] 33.1 g/dL Normal 32.0-35.0 [facility] Comment on above: Order Comment: No: D o not add to previous draw Performed By: #### 3 0313 #### [facility] [address] [place] [address], [facility] MCV (RBC) [Entitic vol] 90.3 fL Normal 82.0-98.0 T [facility] Comment on above: Order Comment: No: D o not add to previous draw Performed By: #### 3 0313 #### [facility] [address] [place] [address], [place] Nucleated RBC/100 WBC (Bld) [Ratio] 0 % Normal 0-0 [facility] Comment on above: Order Comment: No: D o not add to previous draw Performed By: #### 3 0313 #### [facility] [address] [place] [address], [facility] PLAT CNT 101 10*3/uL Low 150-400 [facility] Comment on above: Order Comment: No: D o not add to previous draw Performed By: #### 3 0313 #### [facility] [address] [facility] [place] [address], [facility] RBC (Bld) [#/Vol] 2.78 10*6/uL Low 4.20-5.70 [facility] Comment on above: Order Comment: No: D o not add to previous draw Performed By: #### 3 0313 #### [facility] [address] [facility] [place] [address], [facility] WBC (Bld) [#/Vol] 14.45 10*3/uL High 4.00-10.60 [facility] Comment on above: Order Comment: No: D o not add to previous draw Performed By: #### 3 0313 #### [facility] [address] [facility] Cardiovascular Lab Reporton 06-11-2019 Cardiovascular Lab Report [facility] Patient Name: [facility] A MR #: [id number] Department of Physician: Gilberto Manning M.D. Division of Service Date: 06/11/2019 Cardiology Birthdate: 1945 Adult Cardiovascular Room #: Services [facility] [address] [place], [place] [address] Cardiovascular Laboratory Report INDICATIONS: This is the gentleman who 4 days ago underwent aortic valve replacement. He has had intermittent complete heart block with asystolic. His sternal wires were noted earlier in the day to not be functioning intermittently and then were not functioning at all. He was being rescued paced from external pacing pad. [place] emergently [place]. It was an emergent procedure. He was [...] Manning M.D. Date Trans: 06/11/2019 01:20 P/hanselo [id number] cc: Idris Jose M.D. [address] [facility] [address] [place] [facility] Cardiovascular Lab Report [facility] Patient Name: Jason Bartholomew [facility] Skip MR #: [id number] Department of Physician: Gilberto Manning M.D. Division of Service Date: 06/11/2019 Cardiology Birthdate: 1945 Adult Cardiovascular Room #: 3CD [id number] [place] [address] Cardiovascular Laboratory Report INDICATIONS: This is the gentleman who 4 days ago underwent aortic valve replacement. He has had intermittent complete heart block with asystolic. His sternal wires were noted earlier in the day to not be functioning intermittently and then were not functioning at all. He was being rescued paced from external pacing pad. He was brought emergently [place] to the [place]. It was an emergent procedure. He was [...] Manning M.D. Date Trans: 06/11/2019 01:20 P/mmo [id number] cc: Idris Jose M.D. [address] [facility] [address] Normal [facility] MAGNESIUM BLOODon 06-11-2019 Magnesium [Mass/Vol] 2.4 mg/dL Normal 1.9-2.7 [facility] Comment on above: Order Comment: No: D o not add to previous draw Performed By: #### 8 [id number] #### [facility] [address] [place] [address], [facility] PHOSPHORUS BLOODon 9 Phosphate [Mass/Vol] 3.7 mg/dL Normal 2.5-5.0 [facility] Comment on above: Order Comment: No: D o not add to previous draw Performed By: #### 8 7002 #### [facility] [address] [place] [address], [place] POC GLUCOSE LABon 06-11-2019 Glucose [Mass/Vol] 181 mg/dL High 70-[address] [facility] Comment on above: Performed By: #### 8 [id number] #### [facility] [address] [place] [address], [place] Glucose [Mass/Vol] 121 mg/dL High 70-[address] [facility] Comment on above: Performed By: #### 8 5499 ####[facility] [place] [address], [facility] Glucose [Mass/Vol] 153 mg/dL High 70-[address] [facility] Comment on above: Performed By: #### 8 5499 ####[facility] [place], [place] [address] PORTABLE CHEST 1 VIEWon 06-02 PORTABLE CHEST 1 VIEW [facility] Department of Radiology [address] [place] [address] Patient Name: JASON BARTHOLOMEW : 1945 Sex: M Age: Race: White Pt. Location: [id number] Patient Status: I Ordered Date: 06/11/2019 6:30:00 [...] days Electronically signed by:Noreen Menendez. Transcribed by: [id number], User Resident: Electronically Signed by: NOREEN MENENDEZ @ 06/11/2019 08:37 AM Normal [facility] Comment on above: Order Comment: R/O P neumothorax, post-op AVR *BLOOD CULTUREon 06-10-2019 Bacteria identified Cx Nom (Bld) Clinical Report: (D) Specimen: BLOOD CULTURE Collected: 06/10/2019 14:21 Status: Final Last Updated: 06/16/2019 06:09 CULT RES (Final) No Growth Day 5 Normal [facility] Comment on above: Performed By: #### 3 0313 #### [facility] [address] [place] [address], [facility] BASIC METABOLIC PANELon 12-0 Calcium [Mass/Vol] 9.4 mg/dL Normal 8.6-10.3 [facility] Comment on above: Order Comment: No: D o not add to previous draw Performed By: #### 8 [id number] #### [facility] [address] [place] [address], [place] Chloride [Moles/Vol] 101 mmol/L Normal 98-107 [facility] Comment on above: Order Comment: No: D o not add to previous draw Performed By: #### 8 [id number] #### [facility] [address] [place] [address], [place] CO2 [Moles/Vol] 25 mmol/L Normal 21-31 [facility] Comment on above: Order Comment: No: D o not add to previous draw Performed By: #### 8 [id number] #### [facility] [address] [place] [address], [place] Creatinine [Mass/Vol] 2.71 mg/dL High 0.70-1.30 [facility] Comment on above: Order Comment: No: D o not add to previous draw Performed By: #### 8 [id number] #### [facility] [address] [place] [address], [facility] GFR/1.73 sq M predicted among blacks MDRD (S/P/Bld) [Vol rate/Area] 28 ml/min/1.73sq m Abnormal >60 The [facility] Comment on above: Order Comment: No: D o not add to previous draw Result Comment: Calc ulation may not be valid for patients over 70 years Performed By: #### 8 [id number] #### [facility] [address] [place] [address], [facility] GFR/1.73 sq M predicted among non-blacks MDRD (S/P/Bld) [Vol rate/Area] 23 ml/min/1.73sq m Abnormal >60 The [facility] Comment on above: Order Comment: No: D o not add to previous draw Result Comment: Calc ulation may not be valid for patients over 70 years Performed By: #### 8 [id number] #### [facility] [address] [place] [address], [place] Glucose [Mass/Vol] 246 mg/dL High 70-100 [facility] Comment on above: Order Comment: No: D o not add to previous draw Performed By: #### 8 [id number] #### [facility] [address] [place] [address], [place] Potassium [Moles/Vol] 4.3 mmol/L Normal 3.5-5.1 [facility] Comment on above: Order Comment: No: D o not add to previous draw Performed By: #### 8 [id number] #### [facility] [address] [place] [address], [place] Sodium [Moles/Vol] 139 mmol/L Normal 136-[address] [facility] Comment on above: Order Comment: No: D o not add to previous draw Performed By: #### 8 [id number] #### [facility] [address] [place] [address], [place] Urea nitrogen [Mass/Vol] 59 mg/dL High 7-25 [facility] Comment on above: Order Comment: No: D o not add to previous draw Performed By: #### 8 [id number] #### [facility] [address] [place] [address], [place] Calcium [Mass/Vol] 9.6 mg/dL Normal 8.6-10.[address] [facility] Comment on above: Performed By: #### 8 5499 #### [facility] [address] [place] [address], [place] Chloride [Moles/Vol] 104 mmol/L Normal 98-107 [facility] Comment on above: Performed By: #### 8 5499 #### [facility] [address] [place] [address], [place] CO2 [Moles/Vol] 25 mmol/L Normal 21-31 [facility] Comment on above: Performed By: #### 8 5499 #### [facility] [address] [place] [address], [place] Creatinine [Mass/Vol] 2.12 mg/dL High 0.70-1.30 [facility] Comment on above: Performed By: #### 8 5499 #### [facility] [address] [place] [address], [place] GFR/1.73 sq M predicted among blacks MDRD (S/P/Bld) [Vol rate/Area] 37 ml/min/1.73sq m Abnormal >60 The [facility] Comment on above: Result Comment: Calc ulation may not be valid for patients over 70 years Performed By: #### 8 [id number] #### [facility] [address] [place] [address], [facility] GFR/1.73 sq M predicted among non-blacks MDRD (S/P/Bld) [Vol rate/Area] 31 ml/min/1.73sq m Abnormal >60 [facility] Comment on above: Result Comment: Calc ulation may not be valid for patients over 70 years Performed By: #### 8 [id number] #### [facility] [address] [place] [address], [place] Glucose [Mass/Vol] 170 mg/dL High 70-[address] [facility] Comment on above: Performed By: #### 8 5499 #### [facility] [address] [place] [address], [place] Potassium [Moles/Vol] 3.3 mmol/L Low 3.5-5.1 [facility] Comment on above: Performed By: #### 8 5499 #### [facility] [address] [place] [address], [place] Sodium [Moles/Vol] 141 mmol/L Normal 136-[address] [facility] Comment on above: Performed By: #### 8 [id number] #### [facility] [address] [place] [address], [place] Urea nitrogen [Mass/Vol] 52 mg/dL High 7-25 [facility] Comment on above: Performed By: #### 8 [id number] #### [facility] [address] [place] [address], [facility] CBC COMPLETE BLOOD COUNTon 1 08-11-2018 Erythrocyte distribution width (RBC) [Ratio] 14.6 % Normal 11.5-15.0 [facility] Comment on above: Order Comment: No: D o not add to previous draw Performed By: #### 3 4093 #### [facility] [address] [place] [address], [facility] Hematocrit (Bld) [Volume fraction] 27.8 % Low 39.0-50.0 [facility] Comment on above: Order Comment: No: D o not add to previous draw Performed By: #### 3 0313 #### [facility] [address] [place] [address], [facility] Hemoglobin (Bld) [Mass/Vol] 9.4 g/dL Low 13.0-17.0 [facility] Comment on above: Order Comment: No: D o not add to previous draw Performed By: #### 3 0313 #### [facility] [address] [place] [id number], [facility] IMM PLATELET FRAC 5.2 % Normal 0.8-6.3 The [facility] Comment on above: Order Comment: No: D o not add to previous draw Performed By: #### 3 0313 #### [facility] [address] [place] [address], [facility] MCH (RBC) [Entitic mass] 29.9 pg Normal 27.0-33.0 [facility] Comment on above: Order Comment: No: D o not add to previous draw Performed By: #### 3 0313 #### [facility] [address] [place] [address], [facility] MCHC (RBC) [Mass/Vol] 33.8 g/dL Normal 32.0-35.0 [facility] Comment on above: Order Comment: No: D o not add to previous draw Performed By: #### 3 0313 #### [facility] [address] [place] [address], [facility] MCV (RBC) [Entitic vol] 88.5 fL Normal 82.0-98.0 T isabella [facility] Comment on above: Order Comment: No: D o not add to previous draw Performed By: #### 3 0313 #### [facility] [address] [place] [address], [facility] Nucleated RBC/100 WBC (Bld) [Ratio] 0 % Normal 0-0 [facility] Comment on above: Order Comment: No: D o not add to previous draw Performed By: #### 3 0313 #### [facility] [address] [place] [address], [place] PLAT CNT 96 10*3/uL Low 150-400 [facility] Comment on above: Order Comment: No: D o not add to previous draw Performed By: #### 3 0313 #### [facility] [address] [place] [address], [facility] RBC (Bld) [#/Vol] 3.14 10*6/uL Low 4.20-5.70 The [facility] Comment on above: Order Comment: No: D o not add to previous draw Performed By: #### 3 0313 #### [facility] [address] [place] [address], [place] WBC (Bld) [#/Vol] 17.03 10*3/uL High 4.00-10.60 [facility] Comment on above: Order Comment: No: D o not add to previous draw Performed By: #### 3 0313 #### [facility] [address] [place] [id number], [facility] CREATININE URINE RANDOMon Creatinine [Mass/Vol] 77.0 mg/dL Normal [facility] Comment on above: Order Comment: No: D o not add to previous draw Result Comment: Ther e are no established reference values for random urine specimens Performed By: #### 8 [id number] #### [facility] [address] [place] [id number], [facility] MAGNESIUM BLOODon 06-10-2019 Magnesium [Mass/Vol] 2.6 mg/dL Normal 1.9-2.7 [facility] Comment on above: Performed By: #### 8 5499 #### [facility] [address] [place] [address], [place] Magnesium [Mass/Vol] 1.8 mg/dL Low 1.9-2.7 [facility] Comment on above: Order Comment: No: D o not add to previous draw Performed By: #### 8 5499 #### [facility] [address] [place] [address], [place] OSMOLALITY BLOODon 9 Osmolality [Osmolality] 308 mOsm/kg High 285-305 [facility] Comment on above: Performed By: #### 8 5499 #### [facility] [address] [place] [address], [place] PHOSPHORUS BLOODon 9 Phosphate [Mass/Vol] 2.9 mg/dL Normal 2.5-5.0 [facility] Comment on above: Order Comment: No: D o not add to previous draw Performed By: #### 8 5499 #### [facility] [address] [place] [address], [place] POC GLUCOSE LABon 06-10-2019 Glucose [Mass/Vol] 153 mg/dL High 70-[address] [facility] Comment on above: Performed By: #### 8 5499 #### [facility] [address] [place] [address], [place] Glucose [Mass/Vol] 186 mg/dL High 70-[address] [facility] [facility] Comment on above: Performed By: #### 8 5499 #### [facility] [address] [place] [address], [place] Glucose [Mass/Vol] 256 mg/dL High 70-[address] [facility] [facility] Comment on above: Performed By: #### 8 5499 ####[facility] [place] [address], [place] Glucose [Mass/Vol] 178 mg/dL High 70-100 The [facility] Comment on above: Performed By: #### 3 0738 #### [address] PORTABLE CHEST 1 VIEWon PORTABLE CHEST 1 VIEW [facility] Department of Radiology [address] [place] [address] [place] [address] Patient Name: JASON BARTHOLOMEW : 1945 Sex: M Age: Race: White Pt. Location: [id number] Patient Status: I Ordered Date: 06/10/2019 5:00:00 [...] cardiomegaly. Electronically signed by:Lazaro Capone. Transcribed by: [id number], User Resident: Electronically Signed by: LAZARO CAPONE @ 06/10/2019 07:38 AM Normal [facility] Comment on above: Order Comment: R/O P neumothorax SODIUM URINE RANDOMon 2018 Sodium (U) [Moles/Vol] 65 mmol/L Normal Th e [facility] Comment on above: Order Comment: No: D o not add to previous draw Result Comment: Ther e are no established reference values for random urine specimens Performed By: #### 8 5499 #### [facility] [address] [facility]. [address] APTTon 06-09-2019 aPTT Coag (Bld) [Time] 31.4 s Normal 25.0-35.0 Th e [facility] Comment on above: Order Comment: [...] PURPOSE. Performed By: #### 5 0608 #### [facility] [address] [place] [address], [facility] aPTT Coag (Bld) [Time] 31.1 s Normal 25.0-35.0 Th e [facility] Comment on above: Order Comment: [...] PURPOSE. Performed By: #### 8 5499 #### [facility] [address] ARTERIAL BLOOD GAS WITH ICAo n 06-09-2019 BASE EXCESS -4 mmol/L Low -2-3 [facility] Comment on above: Performed By: #### 8 4511 ####[facility] [place] [address], [facility] [employer] BiPAP Normal The [facility] Comment on above: Performed By: #### 8 4511 ####[facility] [place] [address], [facility] FIO2 100 % Normal [facility] Comment on above: Performed By: #### 8 4511 ####[facility] [place] [address], [facility] HCO3 (Bld) [Moles/Vol] 19 mmol/L Low 21-28 e [facility] Comment on above: Performed By: #### 8 4511 ####[facility] [place] [address], [facility] IONIZED CALCIUM 1.24 mmol/L Normal 1.13-1.32 The [facility] Comment on above: Performed By: #### 8 4511 ####[facility] [place] [address], [facility] Oxygen (Bld) [Partial pressure] 179 mm[Hg] Critically high 83-108 [facility] Comment on above: Performed By: #### 8 4511 ####[facility] [place] [address], [facility] Oxygen saturation in Blood 96.9 % Normal 94.0-97.0 [facility] Comment on above: Performed By: #### 8 4511 ####[facility] [place] [address], [facility] PCO2 29 mmHg Low 35-45 [facility] Comment on above: Performed By: #### 8 4511 ####[facility] [place] [address], [facility] PEEP 6.0 CMH20 Normal [facility] Comment on above: Performed By: #### 8 4511 ####[facility] [facility].[address] pH (Bld) 7.43 [pH] Normal 7.35-7.45 [facility] Comment on above: Performed By: #### 8 4511 ####[facility] [facility].[address] PRESSURE SUPPORT 12 Normal The [facility] Comment on above: Performed By: #### 8 4511 ####[facility] BASE EXCESS -5 mmol/L Low -2-3 The [facility] Comment on above: Order Comment: RESUL TS CHECKED AND CALLED. ACCURATELY READ BACK BY Savanna TRUONG RN-SAMPLE IS MIXED Performed By: #### 8 4511 ####[facility] [employer] NASAL CANNULA Normal The [facility] Comment on above: Order Comment: RESUL TS CHECKED AND CALLED. ACCURATELY READ BACK BY Savanna TRUONG RN-SAMPLE IS MIXED Performed By: #### 8 4511 ####[facility] HCO3 (Bld) [Moles/Vol] 18 mmol/L Low 21-28 Th e [facility] Comment on above: Order Comment: RESUL TS CHECKED AND CALLED. ACCURATELY READ BACK BY Savanna TRUONG RN-SAMPLE IS MIXED Performed By: #### 8 4511 ####[facility] IONIZED CALCIUM 1.23 mmol/L Normal 1.13-1.32 The [facility] Comment on above: Order Comment: RESUL TS CHECKED AND CALLED. ACCURATELY READ BACK BY Savanna TRUONG RN-SAMPLE IS MIXED Performed By: #### 8 4511 ####[facility] [place] [address], [facility] LPM 6.0 LPM Normal [facility] Comment on above: Order Comment: RESUL TS CHECKED AND CALLED. ACCURATELY READ BACK BY Savanna TRUONG RN-SAMPLE IS MIXED Performed By: #### 8 4511 ####[facility] [place] [address], [facility] Oxygen (Bld) [Partial pressure] 40 mm[Hg] Critically low 83-108 [facility] Comment on above: Order Comment: RESUL TS CHECKED AND CALLED. ACCURATELY READ BACK BY Savanna TRUONG RN-SAMPLE IS MIXED Performed By: #### 8 4511 ####[facility] Oxygen saturation in Blood 80.5 % Critically low 94.0-97.0 [facility] Comment on above: Order Comment: RESUL TS CHECKED AND CALLED. ACCURATELY READ BACK BY Savanna TRUONG RN-SAMPLE IS MIXED Performed By: #### 8 4511 ####[facility] [place] [address], [facility] PCO2 27 mmHg Low 35-45 [facility] Comment on above: Order Comment: RESUL TS CHECKED AND CALLED. ACCURATELY READ BACK BY Savanna TRUONG, RN-SAMPLE IS MIXED Performed By: #### 8 4511 ####[facility] [place] [address], [facility] pH (Bld) 7.43 [pH] Normal 7.35-7.45 [facility] Comment on above: Order Comment: RESUL TS CHECKED AND CALLED. ACCURATELY READ BACK BY Savanna TRUONG RN-SAMPLE IS MIXED Performed By: #### 8 4511 ####[facility] [place] [address], [facility] BASIC METABOLIC PANELon 12-0 Calcium [Mass/Vol] 9.1 mg/dL Normal 8.6-10.3 [facility] Comment on above: Order Comment: No: D o not add to previous draw Performed By: #### 8 7002 #### [facility] [address] [place] [address], [place] Chloride [Moles/Vol] 106 mmol/L Normal 98-107 [facility] Comment on above: Order Comment: No: D o not add to previous draw Performed By: #### 8 7002 #### [facility] [address] [place] [address], [place] CO2 [Moles/Vol] 19 mmol/L Low 21-31 [facility] Comment on above: Order Comment: No: D o not add to previous draw Performed By: #### 8 7002 #### [facility] [address] [place] [address], [place] Creatinine [Mass/Vol] 2.33 mg/dL High 0.70-1.30 [facility] Comment on above: Order Comment: No: D o not add to previous draw Performed By: #### 8 7002 #### [facility] [address] [place] [address], [place] GFR/1.73 sq M predicted among blacks MDRD (S/P/Bld) [Vol rate/Area] 33 ml/min/1.73sq m Abnormal >60 The [facility] Comment on above: Order Comment: No: D o not add to previous draw Result Comment: Calc ulation may not be valid for patients over 70 years Performed By: #### 8 7002 #### [facility] [address] [place] [address], [place] GFR/1.73 sq M predicted among non-blacks MDRD (S/P/Bld) [Vol rate/Area] 27 ml/min/1.73sq m Abnormal >60 The [facility] Comment on above: Order Comment: No: D o not add to previous draw Result Comment: Calc ulation may not be valid for patients over 70 years Performed By: #### 8 7002 #### [facility] [address] [place] [address], [place] Glucose [Mass/Vol] 215 mg/dL High 70-[address] [facility] Comment on above: Order Comment: No: D o not add to previous draw Performed By: #### 8 7002 #### [facility] [address] [place] [address], [place] Potassium [Moles/Vol] 4.1 mmol/L Normal 3.5-5.1 [facility] Comment on above: Order Comment: No: D o not add to previous draw Performed By: #### 8 7002 #### [facility] [address] [place] [address], [place] Sodium [Moles/Vol] 137 mmol/L Normal 136-[address] [facility] Comment on above: Order Comment: No: D o not add to previous draw Performed By: #### 8 7002 #### [facility] [address] [place] [address], [place] Urea nitrogen [Mass/Vol] 49 mg/dL High 7-25 [facility] Comment on above: Order Comment: No: D o not add to previous draw Performed By: #### 8 700 #### [facility] [address] [place] [address], [place] Calcium [Mass/Vol] 9.2 mg/dL Normal 8.6-10.[address] [facility] Comment on above: Order Comment: No: D o not add to previous draw Performed By: #### 8 7002 #### [facility] [address] [place] [address], [place] Chloride [Moles/Vol] 108 mmol/L High 98-107 [facility] Comment on above: Order Comment: No: D o not add to previous draw Performed By: #### 8 7002 #### [facility] [address] [address], [place] CO2 [Moles/Vol] 24 mmol/L Normal 21-31 [facility] Comment on above: Order Comment: No: D o not add to previous draw Performed By: #### 8 7002 #### [facility] [address] [place] [address], [place] Creatinine [Mass/Vol] 1.71 mg/dL High 0.70-1.30 [facility] Comment on above: Order Comment: No: D o not add to previous draw Performed By: #### 8 [id number] #### [facility] [address] [place] [address], [place] GFR/1.73 sq M predicted among blacks MDRD (S/P/Bld) [Vol rate/Area] 47 ml/min/1.73sq m Abnormal >60 The [facility] Comment on above: Order Comment: No: D o not add to previous draw Result Comment: Calc ulation may not be valid for patients over 70 years Performed By: #### 8 [id number] #### [facility] [address] [place] [address], [place] GFR/1.73 sq M predicted among non-blacks MDRD (S/P/Bld) [Vol rate/Area] 39 ml/min/1.73sq m Abnormal >60 [facility] Comment on above: Order Comment: No: D o not add to previous draw Result Comment: Calc ulation may not be valid for patients over 70 years Performed By: #### 8 [id number] #### [facility] [address] [place] [address], [place] Glucose [Mass/Vol] 89 mg/dL Normal 70-100 [facility] Comment on above: Order Comment: No: D o not add to previous draw Performed By: #### 8 7002 #### [facility] [address] [place] [address], [place] Potassium [Moles/Vol] 3.8 mmol/L Normal 3.5-5.[address] [facility] Comment on above: Order Comment: No: D o not add to previous draw Performed By: #### 8 7002 #### [facility] [address] [place] [address], [facility] Sodium [Moles/Vol] 140 mmol/L Normal 136-[address] [facility] Comment on above: Order Comment: No: D o not add to previous draw Performed By: #### 8 [id number] #### [facility] [address] [place] [address], [facility] Urea nitrogen [Mass/Vol] 36 mg/dL High 7-25 [facility] Comment on above: Order Comment: No: D o not add to previous draw Performed By: #### 8 [id number] #### [facility] [address] [place] [address], [facility] CBC COMPLETE BLOOD COUNTon 1 08-10-2018 Erythrocyte distribution width (RBC) [Ratio] 14.9 % Normal 11.5-15.0 [facility] Comment on above: Order Comment: No: D o not add to previous draw Performed By: #### 3 0313 #### [facility] [address] [place] [address], [facility] Hematocrit (Bld) [Volume fraction] 26.4 % Low 39.0-50.0 [facility] Comment on above: Order Comment: No: D o not add to previous draw Performed By: #### 3 0313 #### [facility] [address] [place] [address], [facility] Hemoglobin (Bld) [Mass/Vol] 9.0 g/dL Low 13.0-17.0 [facility] Comment on above: Order Comment: No: D o not add to previous draw Performed By: #### 3 0313 #### [facility] [address] [place] [address], [place] IMM PLATELET FRAC 5.0 % Normal 0.8-6.3 [facility] Comment on above: Order Comment: No: D o not add to previous draw Performed By: #### 3 0313 #### [facility] [address] [place] [address], [facility] MCH (RBC) [Entitic mass] 30.2 pg Normal 27.0-33.0 [facility] Comment on above: Order Comment: No: D o not add to previous draw Performed By: #### 3 0313 #### [facility] [address] [place] [address], [facility] MCHC (RBC) [Mass/Vol] 34.1 g/dL Normal 32.0-35.0 [facility] Comment on above: Order Comment: No: D o not add to previous draw Performed By: #### 3 0313 #### [facility] [address] [place] [address], [facility] MCV (RBC) [Entitic vol] 88.6 fL Normal 82.0-98.0 T [facility] Comment on above: Order Comment: No: D o not add to previous draw Performed By: #### 3 0313 #### [facility] [address] [place] [address], [facility] Nucleated RBC/100 WBC (Bld) [Ratio] 0 % Normal 0-0 [facility] Comment on above: Order Comment: No: D o not add to previous draw Performed By: #### 3 0313 #### [facility] [address] [place] [address], [facility] PLAT CNT 81 10*3/uL Low 150-400 [facility] Comment on above: Order Comment: No: D o not add to previous draw Result Comment: Prev iously Resulted 81 Performed By: #### 3 0313 #### [facility] [address] [place] [address], [facility] RBC (Bld) [#/Vol] 2.98 10*6/uL Low 4.20-5.70 The [facility] Comment on above: Order Comment: No: D o not add to previous draw Performed By: #### 3 0313 #### [facility] [address] [place] [address], [facility] WBC (Bld) [#/Vol] 10.77 10*3/uL High 4.00-10.60 [facility] Comment on above: Order Comment: No: D o not add to previous draw Performed By: #### 3 0313 #### [facility] [address] [place] [address], [facility] Erythrocyte distribution width (RBC) [Ratio] 14.7 % Normal 11.5-15.0 [facility] Comment on above: Order Comment: No: D o not add to previous draw Performed By: #### 3 0313 #### [facility] [address] [place] [address], [facility] Hematocrit (Bld) [Volume fraction] 23.6 % Low 39.0-50.0 [facility] Comment on above: Order Comment: No: D o not add to previous draw Performed By: #### 3 0313 #### [facility] [address] [place] [address], [facility] Hemoglobin (Bld) [Mass/Vol] 7.9 g/dL Low 13.0-17.0 [facility] Comment on above: Order Comment: No: D o not add to previous draw Performed By: #### 3 0313 #### [facility] [address] [place] [address], [place] IMM PLATELET FRAC 5.4 % Normal 0.8-6.3 The [facility] Comment on above: Order Comment: No: D o not add to previous draw Performed By: #### 3 0313 #### [facility] [address] [place] [address], [place] MCH (RBC) [Entitic mass] 29.5 pg Normal 27.0-33.0 [facility] Comment on above: Order Comment: No: D o not add to previous draw Performed By: #### 3 0313 #### [facility] [address] [place] [id number], [facility] MCHC (RBC) [Mass/Vol] 33.5 g/dL Normal 32.0-35.0 [facility] Comment on above: Order Comment: No: D o not add to previous draw Performed By: #### 3 0313 #### [facility] [address] [place] [id number], [facility] MCV (RBC) [Entitic vol] 88.1 fL Normal 82.0-98.0 T he [facility] Comment on above: Order Comment: No: D o not add to previous draw Performed By: #### 3 0313 #### [facility] [address] [place] [id number], [facility] Nucleated RBC/100 WBC (Bld) [Ratio] 0 % Normal 0-0 [facility] Comment on above: Order Comment: No: D o not add to previous draw Performed By: #### 3 0313 #### [facility] [address] [place] [id number], [facility] PLAT CNT 81 10*3/uL Low 150-400 [facility] Comment on above: Order Comment: No: D o not add to previous draw Performed By: #### 3 0313 #### [facility] [address] [place] [id number], [facility] RBC (Bld) [#/Vol] 2.68 10*6/uL Low 4.20-5.70 The [facility] Comment on above: Order Comment: No: D o not add to previous draw Performed By: #### 3 0313 #### [facility] [address] [place] [id number], [place] WBC (Bld) [#/Vol] 10.66 10*3/uL High 4.00-10.60 [facility] Comment on above: Order Comment: No: D o not add to previous draw Performed By: #### 3 0313 #### [facility] [address] [place] [address], [place] MAGNESIUM BLOODon 06-09-2019 Magnesium [Mass/Vol] 2.0 mg/dL Normal 1.9-2.7 [facility] Comment on above: Order Comment: No: D o not add to previous draw Performed By: #### 8 7002 #### [facility] [address] [place] [address], [place] PHOSPHORUS BLOODon 9 Phosphate [Mass/Vol] 3.5 mg/dL Normal 2.5-5.0 [facility] Comment on above: Order Comment: No: D o not add to previous draw Performed By: #### 8 7002 #### [facility] [address] [place] [address], [place] POC GLUCOSE LABon 06-09-2019 Glucose [Mass/Vol] 235 mg/dL High 70-[address] [facility] [facility] Comment on above: Performed By: #### 8 5499 #### [facility] [address] [place] [address], [place] Glucose [Mass/Vol] 201 mg/dL High 70-[address] [facility] Comment on above: Performed By: #### 3 0738 #### [facility] [address] [place] [address], [place] Glucose [Mass/Vol] 180 mg/dL High 70-[address] [facility] Comment on above: Performed By: #### 8 5499 #### [facility] [address] [place] [address], [place] Glucose [Mass/Vol] 160 mg/dL High 70-[address] [facility] Comment on above: Performed By: #### 8 [id number] #### [facility] [address] [address], [place] Glucose [Mass/Vol] 92 mg/dL Normal 70-[address] [facility] Comment on above: Performed By: #### 8 5499 #### [facility] [address] [place] [address], [place] Glucose [Mass/Vol] 115 mg/dL High 70-[address] [facility] Comment on above: Performed By: #### 8 5499 #### [facility] [address] [place] [address], [place] Glucose [Mass/Vol] 130 mg/dL High 70-[address] [facility] Comment on above: Performed By: #### 3 0738 #### [facility] [address] [facility] [place] [address], [place] Glucose [Mass/Vol] 210 mg/dL High 70-[address] [facility] Comment on above: Performed By: #### 8 5499 #### [facility] [address] [place] [address], [place] Glucose [Mass/Vol] 240 mg/dL High 70-[address] [facility] Comment on above: Performed By: #### 3 0738 #### [facility] [address] [place] [address], [facility] PORTABLE CHEST 1 VIEW 12-0 PORTABLE CHEST 1 VIEW [facility] Department of Radiology [address] [place] [id number] Patient Name: JASON BARTHOLOMEW : 1945 Sex: M Age: Race: White Pt. Location: [id number] Patient Status: I Ordered Date: 06/09/2019 3:25:00 [...] midlung. Electronically signed by:Lazaro Capone. Transcribed by: [email or web address], User Resident: Electronically Signed by: LAZARO CAPONE @ 06/10/2019 08:11 AM Normal The [facility] Comment on above: Order Comment: R/O P neumothorax PORTABLE CHEST 1 VIEW [facility] Department of Radiology [address] [place] [id number] Patient Name: JASON BARTHOLOMEW : 1945 Sex: M Age: Race: White Pt. Location: [id number] Patient Status: I Ordered Date: 06/09/2019 8:15:00 [...] Cardiomediastinal silhouette remains unchanged. Interval removal of Salem-Teresa catheter. Mediastinal drain present. Aortic valve prosthesis. Right-sided chest tube remains with small right apical pneumothorax measuring 6 mm from the pleura. No significant change in right-sided loculated pleural effusion or right-sided upper lobe airspace disease. Left lung is clear. No subdiaphragmatic free air. IMPRESSION: 1. Small right apical pneumothorax. 2. Interval removal of Salem-Teresa catheter. Remaining tubes are stable. 3. No significant change in right-sided pleural parenchymal process. Findings were discussed with FADIA Thomas at 9:15 AM on 06/09/2019. Approved by:Misbah Jo on 06/09/2019 9:16 AM EST. I, Noreen Menendez, have reviewed the images and report and concur with these findings. Electronically signed by:Noreen Menendez. Transcribed by: [email or web address], User Resident: MISBAH JO Electronically Signed by: NOREEN MENENDEZ @ 06/10/2019 07:11 AM I personally read this/these film(s) with this resident Normal The [facility] Comment on above: Order Comment: R/O P neumothorax PROTHROMBIN TIMEon 9 INR Coag (PPP) [Relative time] 1.26 {INR} High 0.91-1.16 [facility] Comment on above: Order Comment: No: D o not add to previous draw Dup Result Comment: [facility] P RECOMMENDED INR FOR WARFARIN [...] 1995;108:231S-246S. Performed By: #### 5 0608 #### [facility] [address] [place] [address], [facility] PT Coag (PPP) [Time] 15.9 s High 12.3-14.8 [facility] Comment on above: Order Comment: No: D o not add to previous draw Dup Result Comment: ALL RESULTS MUST BE INTERPRETED WITH RESPECT TO BLOOD DRAWING ARTIFACT OR DILUTION ERROR OF ANTICOAGULANT AT THE TIME OF SAMPLING. Performed By: #### 5 0608 #### [facility] [address] [place] [address], [facility] INR Coag (PPP) [Relative time] 1.30 {INR} High 0.91-1.16 [facility] Comment on above: Order Comment: No: D o not add to previous draw Result Comment: [facility] P RECOMMENDED INR FOR WARFARIN [...] 1995;108:231S-246S. Performed By: #### 8 5499 #### [facility] [address] PT Coag (PPP) [Time] 16.3 s High 12.3-14.8 [facility] Comment on above: Order Comment: No: D o not add to previous draw Result Comment: ALL RESULTS MUST BE INTERPRETED WITH RESPECT TO BLOOD DRAWING ARTIFACT OR DILUTION ERROR OF ANTICOAGULANT AT THE TIME OF SAMPLING. Performed By: #### 8 [id number] #### [facility] [address] APTTon 06-08-2019 aPTT Coag (Bld) [Time] 31.6 s Normal 25.0-35.0 Th e [facility] Comment on above: Order Comment: [...] PURPOSE. Performed By: #### 8 [id number] #### [facility] [address] [place] [address], [facility] aPTT Coag (Bld) [Time] 32.6 s Normal 25.0-35.0 Th e [facility] Comment on above: Order Comment: [...] PURPOSE. Performed By: #### 5 0608 #### [facility] [address] ARTERIAL BLOOD GAS WITH ICAo n 06-08-2019 BASE EXCESS -1 mmol/L Normal -2-3 [facility] Comment on above: Performed By: #### 8 4511 ####[facility] [place] [address], [facility] [employer] NASAL CANNULA Normal [facility] Comment on above: Performed By: #### 8 4511 ####[facility] [place] [address], [facility] HCO3 (Bld) [Moles/Vol] 24 mmol/L Normal 21-28 Th e [facility] Comment on above: Performed By: #### 8 4511 ####[facility] [place] [address], [facility] IONIZED CALCIUM 1.37 mmol/L High 1.13-1.32 [facility] Comment on above: Performed By: #### 8 4511 ####[facility] [place] [address], [facility] LPM 2.0 LPM Normal [facility] Comment on above: Performed By: #### 8 4511 ####[facility] [place] [address], [place] Oxygen (Bld) [Partial pressure] 93 mm[Hg] Normal 83-108 [facility] Comment on above: Performed By: #### 8 4511 ####[facility] [place] [address], [place] Oxygen saturation in Blood 96.6 % Normal 94.0-97.0 [facility] Comment on above: Performed By: #### 8 4511 ####[facility] [place] [address], [place] PCO2 39 mmHg Normal 35-45 [facility] Comment on above: Performed By: #### 8 4511 ####[facility] [place] [address], [place] pH (Bld) 7.40 [pH] Normal 7.35-7.45 [facility] Comment on above: Performed By: #### 8 4511 ####[facility] [place] [address], [place] BASIC METABOLIC PANELon 12-0 Calcium [Mass/Vol] 9.6 mg/dL Normal 8.6-10.3 [facility] Comment on above: Order Comment: post op day 1No: Do not add to previous draw Performed By: #### 8 [id number] #### [facility] [address] [place] [address], [place] Chloride [Moles/Vol] 107 mmol/L Normal 98-107 [facility] Comment on above: Order Comment: post op day 1No: Do not add to previous draw Performed By: #### 8 [id number] #### [facility] [address] [place] [address], [place] CO2 [Moles/Vol] 24 mmol/L Normal 21-31 [facility] Comment on above: Order Comment: post op day 1No: Do not add to previous draw Performed By: #### 8 5499 #### [facility] [address] [place] [address], [place] Creatinine [Mass/Vol] 1.55 mg/dL High 0.70-1.30 [facility] Comment on above: Order Comment: post op day 1No: Do not add to previous draw Performed By: #### 8 [id number] #### [facility] [address] [place] [address], [place] GFR/1.73 sq M predicted among blacks MDRD (S/P/Bld) [Vol rate/Area] 53 ml/min/1.73sq m Abnormal >60 [facility] Comment on above: Order Comment: post op day 1No: Do not add to previous draw Result Comment: Calc ulation may not be valid for patients over 70 years Performed By: #### 8 [id number] #### [facility] [address] [place] [address], [place] GFR/1.73 sq M predicted among non-blacks MDRD (S/P/Bld) [Vol rate/Area] 44 ml/min/1.73sq m Abnormal >60 [facility] Comment on above: Order Comment: post op day 1No: Do not add to previous draw Result Comment: Calc ulation may not be valid for patients over 70 years Performed By: #### 8 [id number] #### [facility] [address] [place] [address], [place] Glucose [Mass/Vol] 103 mg/dL High 70-100 [facility] Comment on above: Order Comment: post op day 1No: Do not add to previous draw Performed By: #### 8 [id number] #### [facility] [address] [place] [address], [place] Potassium [Moles/Vol] 4.1 mmol/L Normal 3.5-5.1 [facility] Comment on above: Order Comment: post op day 1No: Do not add to previous draw Performed By: #### 8 [id number] #### [facility] [address] [place] [address], [facility] Sodium [Moles/Vol] 138 mmol/L Normal 136-145 [facility] Comment on above: Order Comment: post op day 1No: Do not add to previous draw Performed By: #### 8 [id number] #### [facility] [address] [place] [address], [facility] Urea nitrogen [Mass/Vol] 29 mg/dL High 7-25 [facility] Comment on above: Order Comment: post op day 1No: Do not add to previous draw Performed By: #### 8 [id number] #### [facility] [address] [place] [id number], [facility] CBC COMPLETE BLOOD COUNTon 1 08-09-2018 Erythrocyte distribution width (RBC) [Ratio] 13.9 % Normal 11.5-15.0 [facility] Comment on above: Order Comment: No: D o not add to previous draw Dup Performed By: #### 5 0608 #### [facility] [address] [place] [address], [facility] Hematocrit (Bld) [Volume fraction] 18.6 % Low 39.0-50.0 [facility] Comment on above: Order Comment: No: D o not add to previous draw Dup Performed By: #### 5 0608 #### [facility] [address] [place] [address], [facility] Hemoglobin (Bld) [Mass/Vol] 6.4 g/dL Low 13.0-17.0 [facility] Comment on above: Order Comment: No: D o not add to previous draw Dup Performed By: #### 5 0608 #### [facility] [address] [place] [address], [place] IMM PLATELET FRAC 3.7 % Normal 0.8-6.3 [facility] Comment on above: Order Comment: No: D o not add to previous draw Dup Performed By: #### 5 0608 #### [facility] [address] [place] [address], [facility] MCH (RBC) [Entitic mass] 29.6 pg Normal 27.0-33.0 [facility] Comment on above: Order Comment: No: D o not add to previous draw Dup Performed By: #### 5 0608 #### [facility] [address] [place] [address], [facility] MCHC (RBC) [Mass/Vol] 34.4 g/dL Normal 32.0-35.0 [facility] Comment on above: Order Comment: No: D o not add to previous draw Dup Performed By: #### 5 0608 #### [facility] [address] [place] [address], [facility] MCV (RBC) [Entitic vol] 86.1 fL Normal 82.0-98.0 T [facility] Comment on above: Order Comment: No: D o not add to previous draw Dup Performed By: #### 5 0608 #### [facility] [address] [place] [address], [facility] Nucleated RBC/100 WBC (Bld) [Ratio] 0 % Normal 0-0 [facility] Comment on above: Order Comment: No: D o not add to previous draw Dup Performed By: #### 5 0608 #### [facility] [address] [place] [address], [facility] PLAT CNT 103 10*3/uL Low 150-400 [facility] Comment on above: Order Comment: No: D o not add to previous draw Dup Performed By: #### 5 0608 #### [facility] [address] [place] [address], [facility] RBC (Bld) [#/Vol] 2.16 10*6/uL Low 4.20-5.70 [facility] Comment on above: Order Comment: No: D o not add to previous draw Dup Performed By: #### 5 0608 #### [facility] [address] [place] [address], [facility] WBC (Bld) [#/Vol] 9.48 10*3/uL Normal 4.00-10.60 [facility] Comment on above: Order Comment: No: D o not add to previous draw Dup Performed By: #### 5 0608 #### [facility] [address] [place] [address], [facility] COOXIMETRYon 06-08-2019 COHB 3 % Normal [facility] Comment on above: Performed By: #### 7 0207 ####[facility] [facility] METHB 1 % Normal [facility] Comment on above: Performed By: #### 7 0207 ####[facility] Oxygen saturation in Blood 67.9 % Normal 65.0-75.0 [facility] Comment on above: Performed By: #### 7 0207 ####[facility] [facility] THB 6.6 g/dL Normal [facility] Comment on above: Performed By: #### 7 0207 ####[facility] HEMOGLOBINon 06-08-2019 Hemoglobin (Bld) [Mass/Vol] 7.5 g/dL Low 13.0-17.0 [facility] Comment on above: Order Comment: No: D o not add to previous draw Dup Performed By: #### 5 0608 #### [facility] [address] [place] [address], [facility] Hemoglobin (Bld) [Mass/Vol] 8.3 g/dL Low 13.0-17.0 [facility] Comment on above: Order Comment: No: D o not add to previous draw Performed By: #### 3 0313 #### [facility] [address] [place] [address], [facility] LACTATE BLOODon 06-08-2019 Lactate [Moles/Vol] 0.8 mmol/L Normal 0.5-2.2 [facility] Comment on above: Order Comment: post op day 1No: Do not add to previous draw Performed By: #### 8 [id number] #### [facility] [address] MAGNESIUM BLOODon 06-08-2019 Magnesium [Mass/Vol] 2.2 mg/dL Normal 1.9-2.7 [facility] Comment on above: Order Comment: post op day 1No: Do not add to previous draw Performed By: #### 8 [id number] #### [facility] [address] [facility] Operative Reporton 9 Operative Report MR#: [id number] I [facility] Pt. 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 POSTOPERATIVE DIAGNOSIS: Postoperative bleeding status post minimally invasive aortic valve replacement. OPERATION: Exploration of right medial thoracotomy wound and washout of the chest, correction of coagulopathy. [employer]: Mattie. ANESTHESIA: General with endotracheal intubation. [...] Hutton MD Date Trans: 06/08/2019 08:25 A/bert [id number] cc: Idris Jose M.D. [address] [address] [place] [facility] Operative Report MR#: [id number] I [facility] Pt. Name: Jason Bartholomew Room #: [id number] Discharge Date: Birthdate: 1945 OPERATIVE REPORT DATE [...] Hutton MD Date Trans: 06/08/2019 01:08 A/bert [id number] cc: Idris Jose M.D. [address] [facility] [address] Normal [facility] POC GLUCOSE LABon 06-08-2019 Glucose [Mass/Vol] 104 mg/dL High 70-[address] [facility] Comment on above: Performed By: #### 3 0763 #### [facility] [address] [place] [address], [place] Glucose [Mass/Vol] 79 mg/dL Normal 70-[address] [facility] Comment on above: Performed By: #### 8 [id number] #### [facility] [address] [place] [address], [place] Glucose [Mass/Vol] 105 mg/dL High 70-[address] [facility] Comment on above: Performed By: #### 3 0738 #### [facility] [address] [place] [address], [place] Glucose [Mass/Vol] 112 mg/dL High 70-100 [facility] Comment on above: Performed By: #### 3 0313 #### [facility] [address] [place] [address], [place] Glucose [Mass/Vol] 134 mg/dL High 70-100 [facility] Comment on above: Performed By: #### 3 0313 #### [facility] [address] [place] [address], [place] Glucose [Mass/Vol] 99 mg/dL Normal 70-100 [facility] Comment on above: Performed By: #### 3 0738 #### [facility] [address] [place] [address], [place] Glucose [Mass/Vol] 97 mg/dL Normal 70-100 [facility] Comment on above: Performed By: #### 3 0738 #### [facility] [address] [place] [address], [place] Glucose [Mass/Vol] 117 mg/dL High 70-100 [facility] Comment on above: Performed By: #### 8 [id number] #### [facility] [address] [place] [address], [place] Glucose [Mass/Vol] 96 mg/dL Normal 70-100 [facility] Comment on above: Performed By: #### 8 [id number] #### [facility] [address] [place] [address], [place] Glucose [Mass/Vol] 105 mg/dL High 70-100 [facility] Comment on above: Performed By: #### 8 [id number] #### [facility] [address] [place] [address], [place] PORTABLE CHEST 1 VIEWon 12-0 7-2019 PORTABLE CHEST 1 VIEW [facility] Department of Radiology [address] [place] [address] Patient Name: JASON BARTHOLOMEW : 1945 Sex: M Age: Race: White Pt. Location: [id number] Patient Status: I Ordered Date: 06/08/2019 7:00:00 [...] study. Right side chest the tube, right-sided Salem-Teresa catheter again noted, and mediastinal drain are [...] Approved by:Nicholas Casey on 06/08/2019 6:17 AM RILEY. Hawa, Noreen Menendez, have reviewed the images and report and concur with these findings. Electronically signed by:Noreen Menendez. Transcribed by: [email or web address], User Resident: NICHOLAS CASEY Electronically Signed by: NOREEN MENENDEZ @ 06/08/2019 03:39 PM I personally read this/these film(s) with this resident Normal [facility] Comment on above: Order Comment: Check Chest Tube Position PROTHROMBIN TIMEon 9 INR Coag (PPP) [Relative time] 1.30 {INR} High 0.91-1.16 [facility] Comment on above: Order Comment: [...] 1995;108:231S-246S. Performed By: #### 8 5499 #### [address] PT Coag (PPP) [Time] 16.3 s High 12.3-14.8 [facility] Comment on above: Order Comment: post op day 1No: Do not add to previous draw Result Comment: ALL RESULTS MUST BE INTERPRETED WITH RESPECT TO BLOOD DRAWING ARTIFACT OR DILUTION ERROR OF ANTICOAGULANT AT THE TIME OF SAMPLING. Performed By: #### 8 [id number] #### [facility] [address] [place] [address], [facility] RBC'S 2 UNITSon 06-08-2019 CROSSMATCH INTERP 1 COMP Normal [facility] Comment on above: Performed By: #### 8 [id number] ####[facility] [place] [address], [facility] CROSSMATCH INTERP 2 COMP Normal [facility] Comment on above: Performed By: #### 8 6002 ####[facility] [facility].[address] PRODUCT CODE 1 E0336 Normal The [facility] Comment on above: Performed By: #### 8 6002 ####[facility] [place] [address], [facility] PRODUCT CODE 2 E0336 Normal The [facility] Comment on above: Performed By: #### 8 6002 ####[facility] [place] [address], [facility] PRODUCT STATUS 1 RE Normal [facility] Comment on above: Result Comment: Resu lt changed by IF on 06/10/2019 07:04. The previous value was XM. Performed By: #### 8 6002 ####[facility] [facility].[address] PRODUCT STATUS 2 PT Normal [facility] Comment on above: Result Comment: Resu lt changed by IF on 06/08/2019 23:37. The previous value was XM. Result changed by IF on 06/09/2019 02:00. The previous value was IS. Performed By: #### 8 6002 ####[facility] [place] [address], [facility] UNIT ABO 1 A Normal [facility] Comment on above: Performed By: #### 8 6002 ####[facility] [place] [address], [facility] UNIT ABO 2 A Normal [facility] Comment on above: Performed By: #### 8 6002 ####[facility] [place] [address], [facility] UNIT ID 1 [id number] Normal [facility] Comment on above: Performed By: #### 8 6002 ####[facility] [place] [address], [facility] UNIT ID 2 [id number] Normal [facility] Comment on above: Performed By: #### 8 6002 ####[facility] [place] [address], [facility] UNIT RH 1 Positive Normal [facility] Comment on above: Performed By: #### 8 6002 ####[facility] [place] [address], [facility] UNIT RH 2 Positive Normal [facility] Comment on above: Performed By: #### 8 6002 ####[facility] [place] [address], [place] ACTIVATED CLOTTING TIMEon ACTIVATED CLOTTING TIME 121 sec Normal 82-152 T [facility] Comment on above: Performed By: #### 8 [id number] #### [facility] [address] [place] [address], [place] ACTIVATED CLOTTING TIME 104 sec Normal 82-152 T [facility] Comment on above: Performed By: #### 8 [id number] #### [facility] [address] [place] [address], [place] ACTIVATED CLOTTING TIME 443 sec High 82-152 T [facility] Comment on above: Performed By: #### 8 [id number] #### [facility] [address] [place] [address], [place] ACTIVATED CLOTTING TIME 467 sec High 82-152 T [facility] Comment on above: Performed By: #### 8 [id number] #### [facility] [address] [place] [address], [place] ACTIVATED CLOTTING TIME 380 sec High 82-152 T [facility] Comment on above: Performed By: #### 8 [id number] #### [facility] [address] [place] [address], [place] ACTIVATED CLOTTING TIME 443 sec High 82-152 T [facility] Comment on above: Performed By: #### 8 [id number] #### [facility] [address] [place] [address], [place] ACTIVATED CLOTTING TIME 479 sec High 82-152 T [facility] Comment on above: Performed By: #### 8 [id number] #### [facility] [address] [place] [address], [place] ACTIVATED CLOTTING TIME 121 sec Normal 82-152 T [facility] Comment on above: Performed By: #### 8 [id number] #### [facility] [address] [place] [address], [place] APTTon 06-07-2019 aPTT Coag (Bld) [Time] 63.3 s High 25.0-35.0 [facility] Comment on above: Result Comment: ALL RESULTS [...] 19:52 Performed By: #### 8 5499 #### [facility] [address] [place], [address] aPTT Coag (Bld) [Time] 72.3 s Critically high 25.0-35. 0 [facility] Comment on above: [...] 18:39 Performed By: #### 8 [id number] #### [facility] [address] [place] [address], [facility] aPTT Coag (Bld) [Time] 32.6 s Normal 25.0-35.0 [facility] Comment on above: Result Comment: ALL RESULTS [...] PURPOSE. Performed By: #### 8 [id number] #### [facility] [address] ARTERIAL BLOOD GAS WITH ICAo n 06-07-2019 BASE EXCESS -3 mmol/L Low -2-3 [facility] Comment on above: Performed By: #### 8 4511 ####[facility] [place] [address], [facility] DELIVERY SYSTEMS VENTILATOR Normal [facility] Comment on above: Performed By: #### 8 4511 ####[facility] [place] [address], [facility] FIO2 40 % Normal [facility] Comment on above: Performed By: #### 8 4511 ####[facility] [place] [address], [place] HCO3 (Bld) [Moles/Vol] 22 mmol/L Normal 21-28 [facility] Comment on above: Performed By: #### 8 4511 ####[facility] [place] [address], [place] IONIZED CALCIUM 1.38 mmol/L High 1.13-1.32 [facility] Comment on above: Performed By: #### 8 4511 ####[facility] [place] [address], [place] MIN VOLUME 14.5 Normal [facility] Comment on above: Performed By: #### 8 4511 ####[facility] [place] [address], [facility] MODALITY Positive Normal [facility] Comment on above: Performed By: #### 8 4511 ####[facility] [place] [address], [place] Oxygen (Bld) [Partial pressure] 144 mm[Hg] Critically high 83-108 [facility] Comment on above: Performed By: #### 8 4511 ####[facility] [place] [address], [facility] Oxygen saturation in Blood 96.7 % Normal 94.0-97.0 [facility] Comment on above: Performed By: #### 8 4511 ####[facility] [place] [address], [place] PCO2 35 mmHg Normal 35-45 [facility] Comment on above: Performed By: #### 8 4511 ####[facility] [place] [address], [place] PEEP 8.0 CMH20 Normal [facility] Comment on above: Performed By: #### 8 4511 ####[facility] [place] [address], [facility] pH (Bld) 7.40 [pH] Normal 7.35-7.45 [facility] Comment on above: Performed By: #### 8 4511 ####[facility] [place] [address], [place] PRESSURE SUPPORT 8 Normal [facility] Comment on above: Performed By: #### 8 4511 ####[facility] [place] [address], [facility] BASE EXCESS -2 mmol/L Normal -2-3 The [facility] Comment on above: Performed By: #### 8 4511 ####[facility] [place] [address], [facility] [employer] VENT Normal [facility] Comment on above: Performed By: #### 8 4511 ####[facility] [place] [address], [place] FIO2 40 % Normal [facility] Comment on above: Performed By: #### 8 4511 ####[facility] [place] [address], [place] HCO3 (Bld) [Moles/Vol] 23 mmol/L Normal 21-28 [facility] Comment on above: Performed By: #### 8 4511 ####[facility] [place] [address], [place] IONIZED CALCIUM 1.48 mmol/L High 1.13-1.32 [facility] Comment on above: Performed By: #### 8 4511 ####[facility] [place] [address], [place] MIN VOLUME 6.0 Normal [facility] Comment on above: Performed By: #### 8 4511 ####[facility] [place] [address], [place] MODALITY SIMV Normal [facility] Comment on above: Performed By: #### 8 4511 ####[facility] [place] [address], [place] Oxygen (Bld) [Partial pressure] 105 mm[Hg] Normal 83-108 [facility] Comment on above: Performed By: #### 8 4511 ####[facility] [place] [address], [place] Oxygen saturation in Blood 96.7 % Normal 94.0-97.0 [facility] Comment on above: Performed By: #### 8 4511 ####[facility] [place] [address], [place] PCO2 42 mmHg Normal 35-45 [facility] Comment on above: Performed By: #### 8 4511 ####[facility] [place] [address], [place] PEEP 8.0 CMH20 Normal [facility] Comment on above: Performed By: #### 8 4511 ####[facility] [place] [address], [place] pH (Bld) 7.35 [pH] Normal 7.35-7.45 [facility] Comment on above: Performed By: #### 8 4511 ####[facility] [place] [address], [place] PRESSURE SUPPORT 5 Normal [facility] Comment on above: Performed By: #### 8 4511 ####[facility] [place] [address], [place] TIDAL VOLUME (VT) CC 500 cc Normal [facility] Comment on above: Performed By: #### 8 4511 ####[facility] [place] [address], [facility] BASE EXCESS 0 mmol/L Normal -2-3 [facility] Comment on above: Performed By: #### 8 5499 #### [facility] [address] [place] [address], [facility] [employer] VENT Normal [facility] Comment on above: Performed By: #### 8 5499 #### [facility] [address] [place] [address], [facility] FIO2 40 % Normal [facility] Comment on above: Performed By: #### 8 [id number] #### [facility] [address] [place] [address], [facility] HCO3 (Bld) [Moles/Vol] 24 mmol/L Normal 21-28 e [facility] Comment on above: Performed By: #### 8 [id number] #### [facility] [address] [place] [address], [facility] IONIZED CALCIUM 1.34 mmol/L High 1.13-1.32 [facility] Comment on above: Performed By: #### 8 5499 #### [facility] [address] [place] [address], [facility] MIN VOLUME 11.0 Normal [facility] Comment on above: Performed By: #### 8 [id number] #### [facility] [address] [place] [address], [facility] MODALITY Positive Normal [facility] Comment on above: Performed By: #### 8 [id number] #### [facility] [address] [place] [address], [facility] Oxygen (Bld) [Partial pressure] 157 mm[Hg] Critically high 83-108 [facility] Comment on above: Performed By: #### 8 [id number] #### [facility] [address] [place] [address], [facility] Oxygen saturation in Blood 96.5 % Normal 94.0-97.0 [facility] Comment on above: Performed By: #### 8 [id number] #### [facility] [address] [place] [address], [facility] PCO2 33 mmHg Low 35-45 [facility] Comment on above: Performed By: #### 8 [id number] #### [facility] [address] [place] [address], [facility] PEEP 8.0 CMH20 Normal [facility] Comment on above: Performed By: #### 8 [id number] #### [facility] [address] [place] [address], [facility] pH (Bld) 7.46 [pH] High 7.35-7.45 [facility] Comment on above: Performed By: #### 8 [id number] #### [facility] [address] [place] [address], [facility] PRESSURE SUPPORT 10 Normal [facility] Comment on above: Performed By: #### 8 [id number] #### [facility] [address] [place] [address], [facility] BASE EXCESS -2 mmol/L Normal -2-3 [facility] Comment on above: Order Comment: R/O P neumothorax Performed By: #### 8 4511 ####[facility] [place] [address], [facility] [employer] VENT Normal [facility] Comment on above: Order Comment: R/O P neumothorax Performed By: #### 8 4511 ####[facility] [place] [address], [facility] FIO2 50 % Normal [facility] Comment on above: Order Comment: R/O P neumothorax Performed By: #### 8 4511 ####[facility] [place] [address], [facility] HCO3 (Bld) [Moles/Vol] 23 mmol/L Normal 21-28 [facility] Comment on above: Order Comment: R/O P neumothorax Performed By: #### 8 4511 ####[facility] [place] [address], [facility] IONIZED CALCIUM 1.39 mmol/L High 1.13-1.32 [facility] Comment on above: Order Comment: R/O P neumothorax Performed By: #### 8 4511 ####[facility] [place] [address], [facility] MIN VOLUME 6.0 Normal [facility] Comment on above: Order Comment: R/O P neumothorax Performed By: #### 8 4511 ####[facility] [place] [address], [facility] MODALITY SIMV Normal [facility] Comment on above: Order Comment: R/O P neumothorax Performed By: #### 8 4511 ####[facility] Oxygen (Bld) [Partial pressure] 168 mm[Hg] Critically high 83-108 [facility] Comment on above: Order Comment: R/O P neumothorax Performed By: #### 8 4511 ####[facility] Oxygen saturation in Blood 97.2 % High 94.0-97.0 [facility] Comment on above: Order Comment: R/O P neumothorax Performed By: #### 8 4511 ####[facility] [place] [address], [facility] PCO2 42 mmHg Normal 35-45 [facility] Comment on above: Order Comment: R/O P neumothorax Performed By: #### 8 4511 ####[facility] [place] [address], [facility] PEEP 8.0 CMH20 Normal [facility] Comment on above: Order Comment: R/O P neumothorax Performed By: #### 8 4511 ####[facility] [place] [address], [place] pH (Bld) 7.35 [pH] Normal 7.35-7.45 [facility] Comment on above: Order Comment: R/O P neumothorax Performed By: #### 8 4511 ####[facility] [place] [address], [facility] PRESSURE SUPPORT 5 Normal [facility] Comment on above: Order Comment: R/O P neumothorax Performed By: #### 8 4511 ####[facility] [place] [address], [facility] TIDAL VOLUME (VT) CC 500 cc Normal [facility] Comment on above: Order Comment: R/O P neumothorax Performed By: #### 8 4511 ####[facility] [place] [address], [facility] BASIC METABOLIC PANELon 12-0 Calcium [Mass/Vol] 10.1 mg/dL Normal 8.6-10.3 [facility] Comment on above: Order Comment: No: D o not add to previous draw Performed By: #### 8 [id number] #### [facility] [address] [place] [address], [place] Chloride [Moles/Vol] 107 mmol/L Normal 98-107 [facility] Comment on above: Order Comment: No: D o not add to previous draw Performed By: #### 8 [id number] #### [facility] [address] [place] [address], [place] CO2 [Moles/Vol] 24 mmol/L Normal 21-31 [facility] Comment on above: Order Comment: No: D o not add to previous draw Performed By: #### 8 [id number] #### [facility] [address] [place] [address], [place] Creatinine [Mass/Vol] 1.66 mg/dL High 0.70-1.30 [facility] Comment on above: Order Comment: No: D o not add to previous draw Performed By: #### 8 [id number] #### [facility] [address] [place] [address], [facility] GFR/1.73 sq M predicted among blacks MDRD (S/P/Bld) [Vol rate/Area] 49 ml/min/1.73sq m Abnormal >60 [facility] Comment on above: Order Comment: No: D o not add to previous draw Result Comment: Calc ulation may not be valid for patients over 70 years Performed By: #### 8 [id number] #### [facility] [address] [place] [address], [facility] GFR/1.73 sq M predicted among non-blacks MDRD (S/P/Bld) [Vol rate/Area] 41 ml/min/1.73sq m Abnormal >60 [facility] Comment on above: Order Comment: No: D o not add to previous draw Result Comment: Calc ulation may not be valid for patients over 70 years Performed By: #### 8 [id number] #### [facility] [address] [place] [address], [place] Glucose [Mass/Vol] 115 mg/dL High 70-[address] [facility] Comment on above: Order Comment: No: D o not add to previous draw Performed By: #### 8 [id number] #### [facility] [address] [place] [address], [place] Sodium [Moles/Vol] 136 mmol/L Normal 136-[address] [facility] Comment on above: Order Comment: No: D o not add to previous draw Performed By: #### 8 [id number] #### [facility] [address] [place] [address], [place] Urea nitrogen [Mass/Vol] 31 mg/dL High 7-25 [facility] Comment on above: Order Comment: No: D o not add to previous draw Performed By: #### 8 [id number] #### [facility] [address] [place] [address], [place] Calcium [Mass/Vol] 9.4 mg/dL Normal 8.6-10.3 [facility] Comment on above: Order Comment: No: D o not add to previous draw Performed By: #### 8 7002 #### [facility] [address] [place] [address], [place] Chloride [Moles/Vol] 104 mmol/L Normal 98-107 [facility] Comment on above: Order Comment: No: D o not add to previous draw Performed By: #### 8 7002 #### [facility] [address] [address], [place] CO2 [Moles/Vol] 23 mmol/L Normal 21-31 [facility] Comment on above: Order Comment: No: D o not add to previous draw Performed By: #### 8 7002 #### [facility] [address] [place] [address], [place] Creatinine [Mass/Vol] 1.73 mg/dL High 0.70-1.30 [facility] Comment on above: Order Comment: No: D o not add to previous draw Performed By: #### 8 7002 #### [facility] [address] [place] [address], [place] GFR/1.73 sq M predicted among blacks MDRD (S/P/Bld) [Vol rate/Area] 47 ml/min/1.73sq m Abnormal >60 [facility] Comment on above: Order Comment: No: D o not add to previous draw Result Comment: Calc ulation may not be valid for patients over 70 years Performed By: #### 8 7002 #### [facility] [address] [place] [address], [facility] GFR/1.73 sq M predicted among non-blacks MDRD (S/P/Bld) [Vol rate/Area] 39 ml/min/1.73sq m Abnormal >60 [facility] Comment on above: Order Comment: No: D o not add to previous draw Result Comment: Calc ulation may not be valid for patients over 70 years Performed By: #### 8 7002 #### [facility] [address] [place] [address], [place] Glucose [Mass/Vol] 128 mg/dL High 70-[address] [facility] Comment on above: Order Comment: No: D o not add to previous draw Performed By: #### 8 7002 #### [facility] [address] [place] [address], [place] Potassium [Moles/Vol] 3.9 mmol/L Normal 3.5-5.1 [facility] Comment on above: Order Comment: No: D o not add to previous draw Performed By: #### 8 5499 #### [facility] [address] [place] [address], [place] Performed By: #### 8 [id number] #### [facility] [address] [place] [address], [place] Sodium [Moles/Vol] 134 mmol/L Low 136-[address] [facility] Comment on above: Order Comment: No: D o not add to previous draw Performed By: #### 8 7002 #### [facility] [address] [place] [address], [place] Urea nitrogen [Mass/Vol] 34 mg/dL High 7-25 [facility] Comment on above: Order Comment: No: D o not add to previous draw Performed By: #### 8 7002 #### [facility] [address] [place] [address], [facility] Calcium [Mass/Vol] 10.7 mg/dL High 8.6-10.3 [facility] Comment on above: Performed By: #### 4 1000, 67434, 92814 ####[facility] [place] [address], [place] Chloride [Moles/Vol] 101 mmol/L Normal 98-107 [facility] Comment on above: Performed By: #### 4 1000, 65073, 41714 ####[facility] [place] [address], [place] CO2 [Moles/Vol] 20 mmol/L Low 21-31 [facility] Comment on above: Performed By: #### 4 1000, 55695, 22720 ####[facility] [place] [address], [facility] Creatinine [Mass/Vol] 1.79 mg/dL High 0.70-1.30 [facility] Comment on above: Performed By: #### 4 1000, 22960, 98628 ####[facility] [place] [address], [facility] GFR/1.73 sq M predicted among blacks MDRD (S/P/Bld) [Vol rate/Area] 45 ml/min/1.73sq m Abnormal >60 [facility] Comment on above: Result Comment: Calc ulation may not be valid for patients over 70 years Performed By: #### 4 1000, 06469, 00509 ####[facility] [id number], [facility] GFR/1.73 sq M predicted among non-blacks MDRD (S/P/Bld) [Vol rate/Area] 37 ml/min/1.73sq m Abnormal >60 [facility] Comment on above: Result Comment: Calc ulation may not be valid for patients over 70 years Performed By: #### 4 1000, 86923, 04300 ####[facility] [place] [address], [facility] Glucose [Mass/Vol] 219 mg/dL High 70-[address] [facility] Comment on above: Performed By: #### 4 1000, 26399, 74171 ####[facility] [place] [address], [facility] Potassium [Moles/Vol] 4.2 mmol/L Normal 3.5-5.1 [facility] Comment on above: Performed By: #### 4 999, 89442, 66233 ####[facility] [place] [address], [facility] Sodium [Moles/Vol] 128 mmol/L Low 136-[address] [facility] Comment on above: Performed By: #### 4 999, 94905, 05174 ####[facility] [place] [address], [facility] Urea nitrogen [Mass/Vol] 37 mg/dL High 7-25 [facility] Comment on above: Performed By: #### 4 999, 05696, 57768 ####[facility] [place] [address], [facility] CARDIAC MAGNESIUM BLOODon Magnesium [Mass/Vol] 2.1 mg/dL Normal 1.9-2.7 [facility] Comment on above: Performed By: #### 8 7002 #### [facility] [address] [place] [address], [facility] CBC COMPLETE BLOOD COUNTon 1 08-08-2018 Hematocrit (Bld) [Volume fraction] 23.0 % Low 39.0-50.0 [facility] Comment on above: Order Comment: No: D o not add to previous draw Dup Performed By: #### 5 0608 #### [facility] [address] [place] [address], [facility] MCH (RBC) [Entitic mass] 29.4 pg Normal 27.0-33.0 [facility] Comment on above: Order Comment: No: D o not add to previous draw Dup Performed By: #### 5 0608 #### [facility] [address] [place] [address], [facility] MCHC (RBC) [Mass/Vol] 33.9 g/dL Normal 32.0-35.0 [facility] Comment on above: Order Comment: No: D o not add to previous draw Dup Performed By: #### 5 0608 #### [facility] [address] [place] [address], [facility] MCV (RBC) [Entitic vol] 86.8 fL Normal 82.0-98.0 T [facility] Comment on above: Order Comment: No: D o not add to previous draw Dup Performed By: #### 5 0608 #### [facility] [address] [facility] [place] [place] [address], [facility] PLAT CNT 101 10*3/uL Low 150-400 [facility] Comment on above: Order Comment: No: D o not add to previous draw Dup Performed By: #### 5 0608 #### [facility] [address] [place] [address], [facility] RBC (Bld) [#/Vol] 2.65 10*6/uL Low 4.20-5.70 [facility] Comment on above: Order Comment: No: D o not add to previous draw Dup Performed By: #### 5 0608 #### [facility] [address] [place] [address], [facility] WBC (Bld) [#/Vol] 11.51 10*3/uL High 4.00-10.60 [facility] Comment on above: Order Comment: No: D o not add to previous draw Dup Performed By: #### 5 0608 #### [facility] [address] Erythrocyte distribution width (RBC) [Ratio] 13.2 % Normal 11.5-15.0 [facility] Comment on above: Order Comment: No: D o not add to previous draw Dup Performed By: #### 5 0608 #### [facility] [address] Hematocrit (Bld) [Volume fraction] 24.4 % Low 39.0-50.0 [facility] Comment on above: Performed By: #### 5 0608 #### [facility] [address] Hemoglobin (Bld) [Mass/Vol] 8.1 g/dL Low 13.0-17.0 [facility] Comment on above: Performed By: #### 5 0608 #### [facility] [address] MCH (RBC) [Entitic mass] 29.1 pg Normal 27.0-33.0 [facility] Comment on above: Performed By: #### 5 0608 #### [facility] [address] [place] [address], [facility] MCHC (RBC) [Mass/Vol] 33.2 g/dL Normal 32.0-35.0 [facility] Comment on above: Performed By: #### 5 0608 #### [facility] [address] MCV (RBC) [Entitic vol] 87.8 fL Normal 82.0-98.0 T [facility] Comment on above: Performed By: #### 5 0608 #### [facility] [address] Nucleated RBC/100 WBC (Bld) [Ratio] 0 % Normal 0-0 [facility] Comment on above: Order Comment: No: D o not add to previous draw Dup Performed By: #### 5 0608 #### [facility] [address] [place] [address], [facility] Order Comment: No: D o not add to previous draw Performed By: #### 3 0313 #### [facility] [address] [place] [address], [facility] PLAT CNT 125 10*3/uL Low 150-400 [facility] Comment on above: Performed By: #### 5 0608 #### [facility] [address] [place] [address], [facility] RBC (Bld) [#/Vol] 2.78 10*6/uL Low 4.20-5.70 [facility] Comment on above: Performed By: #### 5 0608 #### [facility] [address] [place] [id number], [facility] WBC (Bld) [#/Vol] 14.37 10*3/uL High 4.00-10.60 [facility] Comment on above: Performed By: #### 5 0608 #### [facility] [address] [place] [address], [facility] Erythrocyte distribution width (RBC) [Ratio] 13.1 % Normal 11.5-15.0 [facility] Comment on above: Order Comment: No: D o not add to previous draw Dup Performed By: #### 5 0608 #### [facility] [address] [place] [address], [facility] Hematocrit (Bld) [Volume fraction] 25.4 % Low 39.0-50.0 [facility] Comment on above: Order Comment: No: D o not add to previous draw Dup Performed By: #### 5 0608 #### [facility] [address] [place] [id number], [facility] Hemoglobin (Bld) [Mass/Vol] 8.7 g/dL Low 13.0-17.0 [facility] Comment on above: Order Comment: No: D o not add to previous draw Dup Performed By: #### 5 0608 #### [facility] [address] [place] [address], [facility] MCH (RBC) [Entitic mass] 29.6 pg Normal 27.0-33.0 [facility] Comment on above: Order Comment: No: D o not add to previous draw Dup Performed By: #### 5 0608 #### [facility] [address] [place] [address], [facility] MCHC (RBC) [Mass/Vol] 34.3 g/dL Normal 32.0-35.0 [facility] Comment on above: Order Comment: No: D o not add to previous draw Dup Performed By: #### 5 0608 #### [facility] [address] [place] [address], [facility] MCV (RBC) [Entitic vol] 86.4 fL Normal 82.0-98.0 T [facility] Comment on above: Order Comment: No: D o not add to previous draw Dup Performed By: #### 5 0608 #### [facility] [address] [place] [address], [facility] PLAT CNT 145 10*3/uL Low 150-400 [facility] Comment on above: Order Comment: No: D o not add to previous draw Dup Performed By: #### 5 0608 #### [facility] [address] Order Comment: No: D o not add to previous draw Performed By: #### 3 0313 #### [facility] [address] [place] [address], [facility] RBC (Bld) [#/Vol] 2.94 10*6/uL Low 4.20-5.70 [facility] Comment on above: Order Comment: No: D o not add to previous draw Dup Performed By: #### 5 0608 #### [facility] [address] WBC (Bld) [#/Vol] 13.47 10*3/uL High 4.00-10.60 [facility] Comment on above: Order Comment: No: D o not add to previous draw Dup Performed By: #### 5 0608 #### [facility] [address] [place] [address], [facility] Hematocrit (Bld) [Volume fraction] 22.6 % Low 39.0-50.0 [facility] Comment on above: Order Comment: No: D o not add to previous draw Performed By: #### 3 0313 #### [facility] [address] [place] [address], [facility] Hemoglobin (Bld) [Mass/Vol] 7.7 g/dL Low 13.0-17.0 [facility] Comment on above: Order Comment: No: D o not add to previous draw Performed By: #### 3 0313 #### [facility] [address] [place] [address], [facility] MCH (RBC) [Entitic mass] 30.0 pg Normal 27.0-33.0 [facility] Comment on above: Order Comment: No: D o not add to previous draw Performed By: #### 3 0313 #### [facility] [address] [place] [address], [facility] MCHC (RBC) [Mass/Vol] 34.1 g/dL Normal 32.0-35.0 [facility] Comment on above: Order Comment: No: D o not add to previous draw Performed By: #### 3 0313 #### [facility] [address] [place] [address], [facility] MCV (RBC) [Entitic vol] 87.9 fL Normal 82.0-98.0 T is[facility] Comment on above: Order Comment: No: D o not add to previous draw Performed By: #### 3 0313 #### [facility] [address] [place] [address], [facility] RBC (Bld) [#/Vol] 2.57 10*6/uL Low 4.20-5.70 [facility] Comment on above: Order Comment: No: D o not add to previous draw Performed By: #### 3 0313 #### [facility] [address] [place] [address], [facility] WBC (Bld) [#/Vol] 12.23 10*3/uL High 4.00-10.60 [facility] Comment on above: Order Comment: No: D o not add to previous draw Performed By: #### 3 0313 #### [facility] [address] Erythrocyte distribution width (RBC) [Ratio] 12.7 % Normal 11.5-15.0 [facility] Comment on above: Order Comment: No: D o not add to previous draw Performed By: #### 3 0313 #### [facility] [address] [facility]. [address] Performed By: #### 5 0608 #### [facility] [address] [facility]. [address] Hematocrit (Bld) [Volume fraction] 21.9 % Low 39.0-50.0 [facility] Comment on above: Performed By: #### 5 0608 #### [facility] [address] [place] [address], [facility] Hemoglobin (Bld) [Mass/Vol] 7.2 g/dL Low 13.0-17.0 [facility] Comment on above: Performed By: #### 5 0608 #### [facility] [address] [place] [address], [facility] MCH (RBC) [Entitic mass] 29.6 pg Normal 27.0-33.0 [facility] Comment on above: Performed By: #### 5 0608 #### [facility] [address] [place] [address], [facility] MCHC (RBC) [Mass/Vol] 32.9 g/dL Normal 32.0-35.0 [facility] Comment on above: Performed By: #### 5 0608 #### [facility] [address] [place] [address], [facility] MCV (RBC) [Entitic vol] 90.1 fL Normal 82.0-98.0 T [facility] Comment on above: Performed By: #### 5 0608 #### [facility] [address] [place] [address], [facility] PLAT CNT 168 10*3/uL Normal 150-400 [facility] Comment on above: Performed By: #### 5 0608 #### [facility] [address] [place] [address], [facility] RBC (Bld) [#/Vol] 2.43 10*6/uL Low 4.20-5.70 [facility] Comment on above: Performed By: #### 5 0608 #### [facility] [address] [place] [address], [facility] WBC (Bld) [#/Vol] 17.05 10*3/uL High 4.00-10.60 [facility] Comment on above: Performed By: #### 5 0608 #### [facility] [address] [place] [address], [facility] Hemoglobin (Bld) [Mass/Vol] 7.8 g/dL Low 12.0-17.0 [facility] Comment on above: Order Comment: No: D o not add to previous draw Dup Performed By: #### 5 0608 #### [facility] [address] [place] [address], [facility] Performed By: #### 8 5499 #### [facility] [address] COOXIMETRYon 06-07-2019 COHB 2 % Normal [facility] Comment on above: Performed By: #### 7 0207 ####[facility] METHB 1 % Normal [facility] Comment on above: Performed By: #### 7 0207 ####[facility] Oxygen saturation in Blood 72.8 % Normal 65.0-75.0 [facility] Comment on above: Performed By: #### 7 0207 ####[facility] THB 8.5 g/dL Normal [facility] Comment on above: Performed By: #### 7 0207 ####[facility] FIBRINOGENon 06-07-2019 FIBRINOGEN 217 mg/dL Normal 150-425 [facility] Comment on above: Performed By: #### 8 5499 #### [facility] [address] FRESH FROZEN PLASMA 2 UNITSo n 06-07-2019 PRODUCT CODE 1 E2701 Normal The [facility] Comment on above: Performed By: #### 8 7002 #### [facility] [address] PRODUCT CODE 2 E2701 Normal [facility] Comment on above: Performed By: #### 8 7002 #### [facility] [address] PRODUCT STATUS 1 PT Normal [facility] Comment on above: Result Comment: Resu lt changed by IF on 06/07/2019 19:01. The previous value was XM. Result changed by IF on 06/08/2019 00:30. The previous value was IS. Performed By: #### 8 700 #### [facility] [address] PRODUCT STATUS 2 PT Normal [facility] Comment on above: Result Comment: Resu lt changed by IF on 06/07/2019 19:01. The previous value was XM. Result changed by IF on 06/07/2019 19:40. The previous value was IS. Result changed by IF on 06/07/2019 21:57. The previous value was XM. Result changed by IF on 06/08/2019 00:30. The previous value was IS. Performed By: #### 8 700 #### [facility] [address] [facility]. [address] UNIT ABO 1 AB Normal [facility] Comment on above: Performed By: #### 8 7001 #### [facility] [address] UNIT ABO 2 AB Normal [facility] Comment on above: Performed By: #### 8 7001 #### [facility] [address] [facility]. [address] UNIT ID 1 [id number] Normal [facility] Comment on above: Performed By: #### 8 7001 #### [facility] [address] UNIT ID 2 [id number] Normal [facility] Comment on above: Performed By: #### 8 7001 #### [facility] [address] [place] [address], [facility] UNIT RH 1 Positive Normal [facility] Comment on above: Performed By: #### 8 7001 #### [facility] [address] [place] [address], [facility] UNIT RH 2 Positive Normal [facility] Comment on above: Performed By: #### 8 7002 #### [facility] [address] [place] [address], [facility] LACTATE BLOODon 06-07-2019 Lactate [Moles/Vol] 1.7 mmol/L Normal 0.5-2.2 [facility] Comment on above: Order Comment: No: D o not add to previous draw Performed By: #### 8 [id number] #### [facility] [address] [place] [address], [place] Lactate [Moles/Vol] 1.3 mmol/L Normal 0.5-2.2 [facility] Comment on above: Order Comment: No: D o not add to previous draw Performed By: #### 8 7002 #### [facility] [address] [place] [address], [place] Lactate [Moles/Vol] 1.4 mmol/L Normal 0.5-2.2 [facility] Comment on above: Performed By: #### 8 5499 #### [facility] [address] [place] [address], [facility] MAGNESIUM BLOODon 06-07-2019 Magnesium [Mass/Vol] 2.0 mg/dL Normal 1.9-2.7 [facility] Comment on above: Order Comment: No: D o not add to previous draw Performed By: #### 8 5499 #### [facility] [address] [place] [address], [facility] Magnesium [Mass/Vol] 2.7 mg/dL Normal 1.9-2.7 [facility] Comment on above: Performed By: #### 4 1000, 29593, 64425 ####[facility] [place] [address], [facility] OSMOLALITY BLOODon 9 Osmolality [Osmolality] 292 mOsm/kg Normal 285-305 [facility] Comment on above: Order Comment: No: D o not add to previous draw Performed By: #### 8 7002 #### [facility] [address] [place] [address], [facility] PERFUSION BLOOD PANELon 12-0 BASE EXCESS -2.0 mmol/L Normal -2.0-3.0 [facility] Comment on above: Performed By: #### 8 [id number] #### [facility] [address] [place] [address], [facility] Glucose [Mass/Vol] 125 mg/dL High 70-105 [facility] Comment on above: Performed By: #### 8 [id number] #### [facility] [address] [place] [address], [facility] Hematocrit (Bld) [Volume fraction] 27 % Low 38-51 [facility] Comment on above: Performed By: #### 8 [id number] #### [facility] [address] Hemoglobin (Bld) [Mass/Vol] 9.2 g/dL Low 12.0-17.0 [facility] Comment on above: Performed By: #### 8 [id number] #### [facility] [address] [place] [address], [facility] IONIZED CALCIUM 1.36 mmol/L High 1.12-1.32 [facility] Comment on above: Performed By: #### 8 5499 #### [facility] [address] Oxygen (Bld) [Partial pressure] 300.0 mm[Hg] High 80.0-105.0 [facility] Comment on above: Performed By: #### 8 [id number] #### [facility] [address] [place] [address], [facility] PCO2 50.8 mmHg High 35.0-45.0 [facility] Comment on above: Performed By: #### 8 5499 #### [facility] [address] [place] [address], [facility] pH (Bld) 7.30 [pH] Low 7.35-7.45 [facility] Comment on above: Performed By: #### 8 5499 #### [facility] [address] [place] [address], [facility] Potassium [Moles/Vol] 3.6 mmol/L Normal 3.5-4.9 [facility] Comment on above: Performed By: #### 8 [id number] #### [facility] [address] [place] [address], [facility] Sodium [Moles/Vol] 138 mmol/L Normal 138-[address] [facility] Comment on above: Performed By: #### 8 [id number] #### [facility] [address] [place] [address], [facility] BASE EXCESS -6.0 mmol/L Low -2.0-3.0 [facility] Comment on above: Performed By: #### 8 [id number] #### [facility] [address] [place] [id number], [facility] Glucose [Mass/Vol] 186 mg/dL High 70-[address] [facility] Comment on above: Performed By: #### 8 [id number] #### [facility] [address] [place] [address], [facility] Hematocrit (Bld) [Volume fraction] 21 % Low 38-51 [facility] Comment on above: Performed By: #### 8 [id number] #### [facility] [address] [place] [address], [facility] Hemoglobin (Bld) [Mass/Vol] 7.1 g/dL Low 12.0-17.0 [facility] Comment on above: Performed By: #### 8 [id number] #### [facility] [address] [place] [id number], [facility] IONIZED CALCIUM 1.71 mmol/L Critically high 1.12-1.32 [facility] Comment on above: Performed By: #### 8 [id number] #### [facility] [address] [place] [address], [facility] Oxygen (Bld) [Partial pressure] 112.0 mm[Hg] High 80.0-105.0 [facility] Comment on above: Performed By: #### 8 [id number] #### [facility] [address] [place] [address], [facility] PCO2 44.6 mmHg Normal 35.0-45.0 [facility] Comment on above: Performed By: #### 8 [id number] #### [facility] [address] [place] [address], [facility] pH (Bld) 7.26 [pH] Low 7.35-7.45 [facility] Comment on above: Performed By: #### 8 [id number] #### [facility] [address] [place] [address], [facility] Potassium [Moles/Vol] 4.2 mmol/L Normal 3.5-4.9 [facility] Comment on above: Performed By: #### 8 [id number] #### [facility] [address] [place] [address], [place] Sodium [Moles/Vol] 132 mmol/L Low 138-[address] [facility] Comment on above: Performed By: #### 8 5499 #### [facility] [address] [place] [address], [place] BASE EXCESS -6.0 mmol/L Low -2.0-3.0 [facility] Comment on above: Performed By: #### 8 [id number] #### [facility] [address] [place] [address], [place] Glucose [Mass/Vol] 211 mg/dL High 70-[address] [facility] Comment on above: Performed By: #### 8 [id number] #### [facility] [address] [place] [address], [facility] Hematocrit (Bld) [Volume fraction] 21 % Low 38-51 [facility] Comment on above: Performed By: #### 8 [id number] #### [facility] [address] [place] [address], [facility] Hemoglobin (Bld) [Mass/Vol] 7.1 g/dL Low 12.0-17.0 [facility] Comment on above: Performed By: #### 8 [id number] #### [facility] [address] [place] [address], [facility] IONIZED CALCIUM 1.71 mmol/L Critically high 1.12-1.32 [facility] Comment on above: Performed By: #### 8 [id number] #### [facility] [address] [facility] [place] [address], [facility] Oxygen (Bld) [Partial pressure] 103.0 mm[Hg] Normal 80.0-105.0 [facility] Comment on above: Performed By: #### 8 [id number] #### [facility] [address] [place] [address], [facility] PCO2 39.8 mmHg Normal 35.0-45.0 [facility] Comment on above: Performed By: #### 8 [id number] #### [facility] [address] [place] [id number], [facility] pH (Bld) 7.30 [pH] Low 7.35-7.45 [facility] Comment on above: Performed By: #### 8 [id number] #### [facility] [address] [place] [id number], [facility] Potassium [Moles/Vol] 4.1 mmol/L Normal 3.5-4.9 [facility] Comment on above: Performed By: #### 8 [id number] #### [facility] [address] [place] [address], [facility] Sodium [Moles/Vol] 130 mmol/L Low 138-[address] [facility] Comment on above: Performed By: #### 8 [id number] #### [facility] [address] [place] [address], [facility] BASE EXCESS -2.0 mmol/L Normal -2.0-3.0 [facility] Comment on above: Performed By: #### 3 0738 #### [facility] [address] [place] [address], [facility] Glucose [Mass/Vol] 219 mg/dL High 70-[address] [facility] Comment on above: Performed By: #### 3 0738 #### [facility] [address] [place] [address], [facility] Hematocrit (Bld) [Volume fraction] 26 % Low 38-51 [facility] Comment on above: Performed By: #### 3 0738 #### [facility] [address] [place] [address], [facility] Hemoglobin (Bld) [Mass/Vol] 8.8 g/dL Low 12.0-17.0 [facility] Comment on above: Performed By: #### 3 0738 #### [facility] [address] [place] [address], [facility] IONIZED CALCIUM 1.07 mmol/L Low 1.12-1.32 The [facility] Comment on above: Performed By: #### 3 0738 #### [facility] [address] [place] [address], [facility] Oxygen (Bld) [Partial pressure] 308.0 mm[Hg] High 80.0-105.0 [facility] Comment on above: Performed By: #### 3 0738 #### [facility] [address] [place] [address], [facility] PCO2 33.2 mmHg Low 35.0-45.0 [facility] Comment on above: Performed By: #### 3 0738 #### [facility] [address] [place] [address], [facility] pH (Bld) 7.42 [pH] Normal 7.35-7.45 [facility] Comment on above: Performed By: #### 3 0738 #### [facility] [address] [place] [address], [facility] Potassium [Moles/Vol] 5.3 mmol/L High 3.5-4.9 [facility] Comment on above: Performed By: #### 3 0738 #### [facility] [address] [place] [address], [facility] Sodium [Moles/Vol] 130 mmol/L Low 138-[address] [facility] Comment on above: Performed By: #### 3 0738 #### [facility] [address] [place] [address], [facility] BASE EXCESS 0.0 mmol/L Normal -2.0-3.0 [facility] Comment on above: Performed By: #### 8 [id number] #### [facility] [address] [place] [address], [facility] Glucose [Mass/Vol] 187 mg/dL High 70-[address] [facility] Comment on above: Performed By: #### 8 [id number] #### [facility] [address] [place] [address], [facility] Hematocrit (Bld) [Volume fraction] 23 % Low 38-51 [facility] Comment on above: Performed By: #### 8 [id number] #### [facility] [address] [place] [address], [facility] IONIZED CALCIUM 1.13 mmol/L Normal 1.12-1.32 [facility] Comment on above: Performed By: #### 8 [id number] #### [facility] [address] [place] [address], [facility] Oxygen (Bld) [Partial pressure] 434.0 mm[Hg] High 80.0-105.0 [facility] Comment on above: Performed By: #### 8 [id number] #### [facility] [address] [place] [address], [place] PCO2 37.2 mmHg Normal 35.0-45.0 [facility] Comment on above: Performed By: #### 8 [id number] #### [facility] [address] [place] [address], [place] pH (Bld) 7.43 [pH] Normal 7.35-7.45 [facility] Comment on above: Performed By: #### 8 [id number] #### [facility] [address] [place] [address], [place] Potassium [Moles/Vol] 4.7 mmol/L Normal 3.5-4.9 [facility] Comment on above: Performed By: #### 8 [id number] #### [facility] [address] [place] [address], [place] Sodium [Moles/Vol] 131 mmol/L Low 138-[address] [facility] Comment on above: Performed By: #### 8 [id number] #### [facility] [address] [place] [address], [place] BASE EXCESS -2.0 mmol/L Normal -2.0-3.0 [facility] Comment on above: Performed By: #### 8 [id number] #### [facility] [address] [place] [address], [place] Glucose [Mass/Vol] 163 mg/dL High 70-[address] [facility] Comment on above: Performed By: #### 8 [id number] #### [facility] [address] [place] [address], [place] Hematocrit (Bld) [Volume fraction] 28 % Low 38-51 [facility] Comment on above: Performed By: #### 8 [id number] #### [facility] [address] [place] [address], [facility] Hemoglobin (Bld) [Mass/Vol] 9.5 g/dL Low 12.0-17.0 [facility] Comment on above: Performed By: #### 8 [id number] #### [facility] [address] [place] [address], [facility] IONIZED CALCIUM 1.12 mmol/L Normal 1.12-1.32 [facility] Comment on above: Performed By: #### 8 [id number] #### [facility] [address] [place] [address], [facility] Oxygen (Bld) [Partial pressure] 372.0 mm[Hg] High 80.0-105.0 [facility] Comment on above: Performed By: #### 8 [id number] #### [facility] [address] [place] [address], [facility] PCO2 39.6 mmHg Normal 35.0-45.0 [facility] Comment on above: Performed By: #### 8 [id number] #### [facility] [address] [place] [address], [facility] pH (Bld) 7.37 [pH] Normal 7.35-7.45 [facility] Comment on above: Performed By: #### 8 [id number] #### [facility] [address] [place] [address], [place] Potassium [Moles/Vol] 4.3 mmol/L Normal 3.5-4.9 [facility] Comment on above: Performed By: #### 8 [id number] #### [facility] [address] [place] [address], [place] Sodium [Moles/Vol] 131 mmol/L Low 138-146 [facility] Comment on above: Performed By: #### 8 [id number] #### [facility] [address] [place] [address], [facility] BASE EXCESS -3.0 mmol/L Low -2.0-3.0 [facility] Comment on above: Performed By: #### 8 [id number] #### [facility] [address] [place] [address], [facility] Glucose [Mass/Vol] 159 mg/dL High 70-105 [facility] Comment on above: Performed By: #### 8 [id number] #### [facility] [address] [place] [address], [facility] Hematocrit (Bld) [Volume fraction] 30 % Low 38-51 [facility] Comment on above: Performed By: #### 8 [id number] #### [facility] [address] [place] [address], [facility] Hemoglobin (Bld) [Mass/Vol] 10.2 g/dL Low 12.0-17.0 [facility] Comment on above: Performed By: #### 8 [id number] #### [facility] [address] [place] [address], [facility] IONIZED CALCIUM 1.18 mmol/L Normal 1.12-1.32 [facility] Comment on above: Performed By: #### 8 [id number] #### [facility] [address] [place] [address], [facility] Oxygen (Bld) [Partial pressure] 207.0 mm[Hg] High 80.0-105.0 [facility] Comment on above: Performed By: #### 8 [id number] #### [facility] [address] [place] [address], [facility] PCO2 41.7 mmHg Normal 35.0-45.0 [facility] Comment on above: Performed By: #### 8 [id number] #### [facility] [address] [place] [address], [place] pH (Bld) 7.34 [pH] Low 7.35-7.45 [facility] Comment on above: Performed By: #### 8 [id number] #### [facility] [address] [place] [address], [place] Potassium [Moles/Vol] 4.3 mmol/L Normal 3.5-4.9 [facility] Comment on above: Performed By: #### 8 [id number] #### [facility] [address] [place] [address], [place] Sodium [Moles/Vol] 132 mmol/L Low 138-146 [facility] Comment on above: Performed By: #### 8 [id number] #### [facility] [address] [place] [address], [facility] Hematocrit (Bld) [Volume fraction] 30 % Low 38-51 [facility] Comment on above: Performed By: #### 8 [id number] #### [facility] [address] [place] [address], [place] Hemoglobin (Bld) [Mass/Vol] 10.2 g/dL Low 12.0-17.0 [facility] Comment on above: Performed By: #### 8 [id number] #### [facility] [address] [place] [address], [place] Oxygen (Bld) [Partial pressure] 48.0 mm[Hg] Normal [facility] Comment on above: Performed By: #### 8 [id number] #### [facility] [address] [place] [address], [place] BASE EXCESS -1.0 mmol/L Normal -2.0-3.0 [facility] Comment on above: Performed By: #### 8 [id number] #### [facility] [address] [place] [address], [place] Glucose [Mass/Vol] 113 mg/dL High 70-105 [facility] Comment on above: Performed By: #### 8 [id number] #### [facility] [address] [place] [address], [facility] Hematocrit (Bld) [Volume fraction] 28 % Low 38-51 [facility] Comment on above: Performed By: #### 8 [id number] #### [facility] [address] [place] [address], [facility] Hemoglobin (Bld) [Mass/Vol] 9.5 g/dL Low 12.0-17.0 [facility] Comment on above: Performed By: #### 8 [id number] #### [facility] [address] [place] [id number], [facility] IONIZED CALCIUM 1.18 mmol/L Normal 1.12-1.32 [facility] Comment on above: Performed By: #### 8 5499 #### [facility] [address] [place] [address], [facility] Oxygen (Bld) [Partial pressure] 250.0 mm[Hg] High 80.0-105.0 [facility] Comment on above: Performed By: #### 8 [id number] #### [facility] [address] [place] [address], [facility] PCO2 36.1 mmHg Normal 35.0-45.0 [facility] Comment on above: Performed By: #### 8 [id number] #### [facility] [address] [place] [address], [place] pH (Bld) 7.42 [pH] Normal 7.35-7.45 [facility] Comment on above: Performed By: #### 8 5499 #### [facility] [address] [place] [address], [place] Potassium [Moles/Vol] 4.1 mmol/L Normal 3.5-4.9 [facility] Comment on above: Performed By: #### 8 5499 #### [facility] [address] [place] [address], [place] Sodium [Moles/Vol] 130 mmol/L Low 138-[address] [facility] Comment on above: Performed By: #### 8 5499 #### [facility] [address] [place] [address], [place] PHOSPHORUS BLOODon 9 Phosphate [Mass/Vol] 3.8 mg/dL Normal 2.5-5.0 [facility] Comment on above: Order Comment: No: D o not add to previous draw Performed By: #### 8 [id number] #### [facility] [address] [place] [address], [place] Phosphate [Mass/Vol] 3.4 mg/dL Normal 2.5-5.0 [facility] Comment on above: Performed By: #### 4 1000, [address], [address] ####[facility] [place] [address], [place] POC GLUCOSE LABon 06-07-2019 Glucose [Mass/Vol] 104 mg/dL High 70-100 [facility] Comment on above: Performed By: #### 8 5499 #### [facility] [address] [place] [address], [place] Glucose [Mass/Vol] 120 mg/dL High 70-[address] [facility] [facility] Comment on above: Performed By: #### 8 5499 ####[facility] [place] [address], [place] Glucose [Mass/Vol] 146 mg/dL High 70-[address] [facility] Comment on above: Performed By: #### 8 5499 #### [facility] [address] [place] [address], [place] Glucose [Mass/Vol] 151 mg/dL High 70-[address] [facility] Comment on above: Performed By: #### 8 5499 #### [facility] [address] [place] [address], [facility] Glucose [Mass/Vol] 150 mg/dL High 70-[address] [facility] Comment on above: Performed By: #### 8 5499 #### [facility] [address] [place] [address], [place] Glucose [Mass/Vol] 128 mg/dL High 70-[address] [facility] Comment on above: Performed By: #### 8 5499 #### [facility] [address] [place] [address], [facility] PORTABLE CHEST 1 VIEWon PORTABLE CHEST 1 [facility]IEW [facility] Department of Radiology [address] [place] [id number] Patient Name: JASON BARTHOLOMEW : 1945 Sex: M Age: Race: White Pt. Location: [id number] Patient Status: I Ordered Date: 06/07/2019 1:45:00 [...] chest tube. No evidence of right-sided pneumothorax. Salem-Teresa catheter present tip is just inside the [...] pneumothorax Electronically signed by:Paige Hameed. Transcribed by: [email or web address], User Resident: Electronically Signed by: PAIGE HAMEED @ 06/07/2019 03:11 PM Normal The [facility] Comment on above: Order Comment: Check Chest Tube Position, ON ARRIVAL TO CVU PORTABLE CHEST FOREIGN BODYo n 06-07-2019 PORTABLE CHEST FOREIGN BODY [facility] Department of Radiology [address] [place] [id number] Patient Name: JASON BARTHOLOMEW : 1945 Sex: M Age: Race: White Pt. Location: [id number] Patient Status: I Ordered Date: 06/07/2019 7:00:00 [...] mediastinal drain, ET tube, enteric tube, and Salem-Teresa catheter are in satisfactory position with no [...] findings. Electronically signed by:Noreen Menendez. Transcribed by: [email or web address], User Resident: NICHOLAS CASEY Electronically Signed by: NOREEN MENENDEZ @ 06/08/2019 06:13 AM I personally read this/these film(s) with this resident Normal [facility] Comment on above: Order Comment: R/O f oreign body PROTHROMBIN TIMEon 9 INR Coag (PPP) [Relative time] 1.44 {INR} High 0.91-1.16 [facility] Comment on above: Result Comment: [facility] P RECOMMENDED INR FOR WARFARIN [...] 1995;108:231S-246S. Performed By: #### 8 [id number] #### [facility] [address] [place] [address], [facility] PT Coag (PPP) [Time] 17.7 s High 12.3-14.8 [facility] Comment on above: Result Comment: ALL RESULTS MUST BE INTERPRETED WITH RESPECT TO BLOOD DRAWING ARTIFACT OR DILUTION ERROR OF ANTICOAGULANT AT THE TIME OF SAMPLING. Performed By: #### 8 [id number] #### [facility] [address] [place] [address], [facility] INR Coag (PPP) [Relative time] 1.33 {INR} High 0.91-1.16 [facility] Comment on above: Order Comment: No: D o not add to previous draw Result Comment: [facility] P RECOMMENDED INR FOR WARFARIN [...] 1995;108:231S-246S. Performed By: #### 8 5499 #### [facility] [address] PT Coag (PPP) [Time] 16.6 s High 12.3-14.8 [facility] Comment on above: Order Comment: No: D o not add to previous draw Result Comment: ALL RESULTS MUST BE INTERPRETED WITH RESPECT TO BLOOD DRAWING ARTIFACT OR DILUTION ERROR OF ANTICOAGULANT AT THE TIME OF SAMPLING. Performed By: #### 8 [id number] #### [facility] [address] INR Coag (PPP) [Relative time] 1.42 {INR} High 0.91-1.16 [facility] Comment on above: Result Comment: [facility] P [...] 1995;108:231S-246S. Performed By: #### 8 5499 #### [facility] [address] PT Coag (PPP) [Time] 17.5 s High 12.3-14.8 [facility] Comment on above: Result Comment: ALL RESULTS MUST BE INTERPRETED WITH RESPECT TO BLOOD DRAWING ARTIFACT OR DILUTION ERROR OF ANTICOAGULANT AT THE TIME OF SAMPLING. Performed By: #### 8 [id number] #### [facility] [address] [facility]. [address] RBC'S 2 UNITSon 06-07-2019 CROSSMATCH INTERP 1 COMP Normal [facility] Comment on above: Performed By: #### 8 6002 ####[facility] CROSSMATCH INTERP 2 COMP Normal [facility] Comment on above: Performed By: #### 8 6002 ####[facility] PRODUCT CODE 1 E0336 Normal The [facility] Comment on above: Performed By: #### 8 6002 ####[facility] PRODUCT CODE 2 E0336 Normal The [facility] Comment on above: Performed By: #### 8 6002 ####[facility] PRODUCT STATUS 1 PT Normal The [facility] Comment on above: Result Comment: Resu lt changed by IF on 06/07/2019 18:23. The previous value was XM. Result changed by IF on 06/07/2019 19:40. The previous value was IS. Result changed by IF on 06/08/2019 04:52. The previous value was XM. Result changed by IF on 06/09/2019 00:30. The previous value was IS. Performed By: #### 8 6002 ####[facility] [place] [address], [facility] PRODUCT STATUS 2 PT Normal [facility] Comment on above: Result Comment: Resu lt changed by IF on 06/07/2019 18:23. The previous value was XM. Result changed by IF on 06/07/2019 19:40. The previous value was IS. Result changed by IF on 06/08/2019 03:43. The previous value was XM. Result changed by IF on 06/09/2019 00:30. The previous value was IS. Performed By: #### 8 6002 ####[facility] [place] [address], [facility] UNIT ABO 1 AB Normal [facility] Comment on above: Performed By: #### 8 6002 ####[facility] [place] [address], [place] UNIT ABO 2 AB Normal The [facility] Comment on above: Performed By: #### 8 6002 ####[place] [address] [place] [address], [facility] UNIT ID 1 [id number] Normal [facility] Comment on above: Performed By: #### 8 6002 ####[facility] [place] [address], [facility] UNIT ID 2 [id number] Normal [facility] Comment on above: Performed By: #### 8 6002 ####[facility] [place] [address], [place] UNIT RH 1 Positive Normal The [facility] Comment on above: Performed By: #### 8 6002 ####[facility] [place] [address], [facility] UNIT RH 2 Positive Normal The [facility] Comment on above: Performed By: #### 8 6002 ####[facility] [place] [address], [facility] CROSSMATCH INTERP 1 COMP Normal The [facility] Comment on above: Performed By: #### 8 [id number] #### [facility] [address] [place] [address], [facility] CROSSMATCH INTERP 2 COMP Normal The [facility] Comment on above: Performed By: #### 8 5499 #### [facility] [address] [place] [address], [facility] PRODUCT CODE 1 E0336 Normal The [facility] Comment on above: Performed By: #### 8 5499 #### [facility] [address] [place] [address], [facility] PRODUCT CODE 2 E0336 Normal The [facility] Comment on above: Performed By: #### 8 [id number] #### [facility] [address] [place] [address], [facility] PRODUCT STATUS 1 PT Normal The [facility] Comment on above: Result Comment: Resu lt changed by IF on 06/07/2019 09:27. The previous value was XM. Result changed by IF on 06/07/2019 14:24. The previous value was IS. Result changed by IF on 06/07/2019 15:56. The previous value was XM. Result changed by IF on 06/08/2019 00:30. The previous value was IS. Performed By: #### 8 [id number] #### [facility] [address] [place] [address], [facility] PRODUCT STATUS 2 PT Normal The [facility] Comment on above: Result Comment: Resu lt changed by IF on 06/07/2019 09:27. The previous value was XM. Result changed by IF on 06/07/2019 14:24. The previous value was IS. Result changed by IF on 06/07/2019 17:35. The previous value was XM. Result changed by IF on 06/08/2019 00:30. The previous value was IS. Performed By: #### 8 [id number] #### [facility] [address] [place] [address], [facility] UNIT ABO 1 AB Normal [facility] Comment on above: Performed By: #### 8 [id number] #### [facility] [address] [place], [place] [address] [place] [address] UNIT ABO 2 AB Normal [facility] Comment on above: Performed By: #### 8 [id number] #### [facility] [address] UNIT ID 1 [id number] Normal [facility] Comment on above: Performed By: #### 8 [id number] #### [facility] [address] UNIT ID 2 [id number] Normal [facility] Comment on above: Performed By: #### 8 [id number] #### [facility] [address] [facility] UNIT RH 1 Positive Normal [facility] Comment on above: Performed By: #### 8 [id number] #### [facility] [address] [place] [address], [facility] UNIT RH 2 Positive Normal [facility] Comment on above: Performed By: #### 8 [id number] #### [facility] [address] [facility]. [address] UFH HEPARIN ASSAYon 06-07-20 19 UNFRACTIONATED HEPARIN 0.18 IU/mL Low 0.30-0.70 Th e [facility] Comment on above: Result Comment: [place] roxaban and Apixaban will interfere with the anti Xa assay used to monitor UFH and LMWH. Added per Protocol Performed By: #### 8 [id number] #### [facility] 3000 [facility]. [address] UNFRACTIONATED HEPARIN 0.40 IU/mL Normal 0.30-0.70 Th e [facility] Comment on above: Result Comment: Izzy roxaban and Apixaban will interfere with the anti Xa assay used to monitor UFH and LMWH. UFH add per Protocol Performed By: #### [id number] #### [facility] [address] Vital Signs Date Time Vital Sign Value Performing Clinician Facility 01-02-2025 [id number] Body height 175.3 cm Idris Jose MD Work Phone: [facility] 01-02-2025 11:21-0400 Body mass index (BMI) [Ratio] 27.76 kg/m2 Idris Jose MD Work Phone: [facility] 01-02-2025 11:21-0400 Body temperature 97.5 [degF] Idris Jose MD Work Phone: [facility] 01-02-2025 11:21-0400 Body weight 85.28 kg Idris Jose MD Work Phone: [facility] 01-02-2025 11:21-0400 Diastolic blood pressure 86 mm[Hg] Idris Jose MD Work Phone: [facility] 01-02-2025 11:21-0400 Heart rate 99 /min Idris Jose MD Work Phone: [facility] 01-02-2025 11:21-0400 Respiratory rate 18 /min Idris Jose MD Work Phone: [facility] 01-02-2025 11:21-0400 SaO2% (BldA) [Mass fraction] 97 % Idris Jose MD Work Phone: [facility] 01-02-2025 11:21-0400 Systolic blood pressure 148 mm[Hg] Idris Jose MD Work Phone: [facility] 07-19-2024 13:42-0500 Body temperature 97.81 [degF] Lexi Goldman SPECIAL CLIENT BUS DRIVER-COIL CUTTER Work Phone: [facility] 07-19-2024 13:42-0500 Respiratory rate 16 /min Lexi Goldman SPECIAL CLIENT BUS DRIVER-COIL CUTTER Work Phone: [facility] 07-05-2024 13:51-0500 Body temperature 97.3 [degF] Lexi Goldman SPECIAL CLIENT BUS DRIVER-COIL CUTTER Work Phone: [facility] 07-05-2024 13:51-0500 Diastolic blood pressure 65 mm[Hg] Lexi Goldman SPECIAL CLIENT BUS DRIVER-COIL CUTTER Work Phone: [facility] 07-05-2024 13:51-0500 Heart rate 77 /min Lexi Goldman SPECIAL CLIENT BUS DRIVER-COIL CUTTER Work Phone: [facility] 07-05-2024 13:51-0500 Respiratory rate 16 /min Lexi Goldman SPECIAL CLIENT BUS DRIVER-COIL CUTTER Work Phone: [facility] 07-05-2024 13:51-0500 Systolic blood pressure 125 mm[Hg] Lexi Goldman SPECIAL CLIENT BUS DRIVER-COIL CUTTER Work Phone: [facility] 07-04-2024 10:47-0500 Body height 175.3 cm Idris Jose MD Work Phone: [facility] 07-04-2024 10:47-0500 Body mass index (BMI) [Ratio] 27.76 kg/m2 Idris Jose MD Work Phone: [facility] 07-04-2024 10:47-0500 Body temperature 97.5 [degF] Idris Jose MD Work Phone: [facility] 07-04-2024 10:47-0500 Body weight 85.28 kg Idris Jose MD Work Phone: [facility] 07-04-2024 10:47-0500 Diastolic blood pressure 58 mm[Hg] Idris Jose MD Work Phone: [facility] 07-04-2024 10:47-0500 Heart rate 96 /min Idris Jose MD Work Phone: [facility] 07-04-2024 10:47-0500 Respiratory rate 20 /min Idris Jose MD Work Phone: [facility] 07-04-2024 10:47-0500 SaO2% (BldA) [Mass fraction] 97 % Idris Jose MD Work Phone: [facility] 07-04-2024 10:47-0500 Systolic blood pressure 130 mm[Hg] Idris Jsoe MD Work Phone: [facility] 06-21-2024 13:51-0500 Body temperature 98.91 [degF] Lexi Goldman SPECIAL CLIENT BUS DRIVER-COIL CUTTER Work Phone: [facility] 06-21-2024 13:51-0500 Diastolic blood pressure 72 mm[Hg] Lexi Goldman SPECIAL CLIENT BUS DRIVER-COIL CUTTER Work Phone: [facility] 06-21-2024 13:51-0500 Heart rate 69 /min Lexi Goldman SPECIAL CLIENT BUS DRIVER-COIL CUTTER Work Phone: [facility] 06-21-2024 13:51-0500 Respiratory rate 16 /min Lexi Goldman SPECIAL CLIENT BUS DRIVER-COIL CUTTER Work Phone: [facility] 06-21-2024 13:51-0500 Systolic blood pressure 153 mm[Hg] Lexi Goldman SPECIAL CLIENT BUS DRIVER-COIL CUTTER Work Phone: [facility] 06-07-2024 13:44-0500 Body temperature 98.01 [degF] Lexi Goldman SPECIAL CLIENT BUS DRIVER-COIL CUTTER Work Phone: [facility] 06-07-2024 13:44-0500 Diastolic blood pressure 50 mm[Hg] Lexi Goldman SPECIAL CLIENT BUS DRIVER-COIL CUTTER Work Phone: [facility] 06-07-2024 13:44-0500 Heart rate 90 /min Lexi Goldman SPECIAL CLIENT BUS DRIVER-COIL CUTTER Work Phone: [facility] 06-07-2024 13:44-0500 Respiratory rate 16 /min Lexi Goldman SPECIAL CLIENT BUS DRIVER-COIL CUTTER Work Phone: [facility] 06-07-2024 13:44-0500 Systolic blood pressure 116 mm[Hg] Lexi Goldman SPECIAL CLIENT BUS DRIVER-COIL CUTTER Work Phone: [facility] 05-17-2024 13:00-0500 Body temperature 97.81 [degF] Lexi Goldman SPECIAL CLIENT BUS DRIVER-COIL CUTTER Work Phone: [facility] 05-17-2024 13:00-0500 Diastolic blood pressure 68 mm[Hg] Lexi Goldman SPECIAL CLIENT BUS DRIVER-COIL CUTTER Work Phone: [facility] 05-17-2024 13:00-0500 Heart rate 79 /min Lexi Goldman SPECIAL CLIENT BUS DRIVER-COIL CUTTER Work Phone: [facility] 05-17-2024 13:00-0500 Respiratory rate 16 /min Lexi Goldman SPECIAL CLIENT BUS DRIVER-COIL CUTTER Work Phone: [facility] 05-17-2024 13:00-0500 Systolic blood pressure 117 mm[Hg] Lexi Goldman SPECIAL CLIENT BUS DRIVER-COIL CUTTER Work Phone: [facility] 05-03-2024 14:02-0400 Body temperature 97.3 [degF] Lexi Goldman SPECIAL CLIENT BUS DRIVER-COIL CUTTER Work Phone: [facility] 05-03-2024 14:02-0400 Diastolic blood pressure 80 mm[Hg] Lexi Goldman SPECIAL CLIENT BUS DRIVER-COIL CUTTER Work Phone: [facility] 05-03-2024 14:02-0400 Heart rate 85 /min Lexi Goldman SPECIAL CLIENT BUS DRIVER-COIL CUTTER Work Phone: [facility] 05-03-2024 14:02-0400 Respiratory rate 16 /min Lexi Goldman SPECIAL CLIENT BUS DRIVER-COIL CUTTER Work Phone: [facility] 05-03-2024 14:02-0400 Systolic blood pressure 153 mm[Hg] Lexi Goldman SPECIAL CLIENT BUS DRIVER-COIL CUTTER Work Phone: [facility] 04-26-2024 13:48-0400 Body temperature 97.7 [degF] Lexi Goldman SPECIAL CLIENT BUS DRIVER-COIL CUTTER Work Phone: [facility] 04-26-2024 13:48-0400 Diastolic blood pressure 65 mm[Hg] Lexi Goldman SPECIAL CLIENT BUS DRIVER-COIL CUTTER Work Phone: [facility] 04-26-2024 13:48-0400 Heart rate 74 /min Lexi Goldman SPECIAL CLIENT BUS DRIVER-COIL CUTTER Work Phone: [facility] 04-26-2024 13:48-0400 Respiratory rate 16 /min Lexi Goldman SPECIAL CLIENT BUS DRIVER-COIL CUTTER Work Phone: [facility] 04-26-2024 13:48-0400 Systolic blood pressure 107 mm[Hg] Lexi Goldman SPECIAL CLIENT BUS DRIVER-COIL CUTTER Work Phone: [facility] 04-19-2024 10:34-0400 Body temperature 97.5 [degF] Lion Lloyd SPECIAL CLIENT BUS DRIVER-COIL CUTTER Work Phone: [facility] 04-19-2024 10:34-0400 Diastolic blood pressure 78 mm[Hg] Lion Lloyd SPECIAL CLIENT BUS DRIVER-COIL CUTTER Work Phone: [facility] 04-19-2024 10:34-0400 Heart rate 90 /min Lion Lloyd SPECIAL CLIENT BUS DRIVER-COIL CUTTER Work Phone: [facility] 04-19-2024 10:34-0400 Respiratory rate 16 /min Lion Lloyd SPECIAL CLIENT BUS DRIVER-COIL CUTTER Work Phone: [facility] 04-19-2024 10:34-0400 Systolic blood pressure 160 mm[Hg] Lion Lloyd SPECIAL CLIENT BUS DRIVER-COIL CUTTER Work Phone: [facility] 04-10-2024 10:54-0400 Body height 175.3 cm Idris Jose MD Work Phone: [facility] 04-10-2024 10:54-0400 Body mass index (BMI) [Ratio] 27.47 kg/m2 Idris Jose MD Work Phone: [facility] 04-10-2024 10:54-0400 Body temperature 97.11 [degF] Idris Jose MD Work Phone: [facility] 04-10-2024 10:54-0400 Body weight 84.37 kg Idris Jose MD Work Phone: [facility] 04-10-2024 10:54-0400 Diastolic blood pressure 76 mm[Hg] Idris Jose MD Work Phone: [facility] 04-10-2024 10:54-0400 Heart rate 102 /min Idris Jose MD Work Phone: [facility] 04-10-2024 10:54-0400 Respiratory rate 20 /min Idris Jose MD Work Phone: [facility] 04-10-2024 10:54-0400 SaO2% (BldA) [Mass fraction] 98 % Idris Jose MD Work Phone: [facility] 04-10-2024 10:54-0400 Systolic blood pressure 150 mm[Hg] Idris Jose MD Work Phone: [facility] 03-28-2024 14:00-0400 Body height 175.3 cm Idris Jose MD Work Phone: [facility] 03-28-2024 14:00-0400 Body mass index (BMI) [Ratio] 27.32 kg/m2 Idris Jose MD Work Phone: [facility] 03-28-2024 14:00-0400 Body temperature 97.11 [degF] Idris Jose MD Work Phone: [facility] 03-28-2024 14:00-0400 Body weight 83.92 kg Idris Jose MD Work Phone: [facility] 03-28-2024 14:00-0400 Diastolic blood pressure 60 mm[Hg] Idris Jose MD Work Phone: [facility] [employer] 03-28-2024 14:00-0400 Heart rate 85 /min Idris Jose MD Work Phone: [facility] [employer] 03-28-2024 14:00-0400 SaO2% (BldA) [Mass fraction] 98 % Idris Jose MD Work Phone: [facility] 03-28-2024 14:00-0400 Systolic blood pressure 120 mm[Hg] Idris Jose MD Work Phone: [facility] 07-28-2023 14:00-0500 Body height 175.26 cm Sonali Weavermond Other [employer] Other 07-28-2023 14:00-0500 Body mass index (BMI) [Ratio] 28.35 kg/m2 Sonali Catie Other [employer] Other 07-28-2023 14:00-0500 Body temperature 97.6 [degF] Sonali Catie Other [employer] Other 07-28-2023 14:00-0500 Body weight 87.09 kg Sonali Catie Other [employer] Other 07-28-2023 14:00-0500 Diastolic blood pressure 84 mm[Hg] Sonali Catie Other [employer] Other 07-28-2023 14:00-0500 Respiratory rate 18 /min Sonali Catie Other [employer] Other 07-28-2023 14:00-0500 SaO2% (BldA) [Mass fraction] 97 % Sonali Catie Other [employer] Other 07-28-2023 14:00-0500 Systolic blood pressure 114 mm[Hg] Sonali Haddad Other [employer] Other 07-21-2022 14:00-0500 Body height 175.26 cm Kylah Valenzuela Other [employer] Other 07-21-2022 14:00-0500 Body mass index (BMI) [Ratio] 27.32 kg/m2 Kylah Valenzuela Other [employer] Other 07-21-2022 14:00-0500 Body weight 83.92 kg Kylah Valenzuela Other [employer] Other 07-06-2022 08:35-0500 Diastolic blood pressure 80 mm[Hg] MD Idris Jose Work Phone: [facility] 07-06-2022 08:35-0500 Heart rate 63 /min MD Idris Jose Work Phone: [facility] 07-06-2022 08:35-0500 Respiratory rate 16 /min MD Idris Jose Work Phone: [facility] 07-06-2022 08:35-0500 SaO2% (BldA) [Mass fraction] 95 % MD Idris Jose Work Phone: [facility] 07-06-2022 08:35-0500 Systolic blood pressure 159 mm[Hg] MD Idris Jose Work Phone: [facility] 07-06-2022 07:37-0500 Body mass index (BMI) [Ratio] 27.3 kg/m2 MD Idris Jose Work Phone: [facility] 07-06-2022 07:27-0500 Body height 175.26 cm MD Idris Jose Work Phone: [facility] 07-06-2022 07:27-0500 Body weight 83.91 kg MD Idris Jose Work Phone: [facility] 07-06-2022 06:11-0500 Body temperature 97.9 [degF] MD Idris Jose Work Phone: [facility] 03-18-2022 11:20-0400 Body height 175.26 cm Darien Escamilla Other [employer] Other 03-18-2022 11:20-0400 Body mass index (BMI) [Ratio] 27.32 kg/m2 Darien Escamilla Other [employer] Other 03-18-2022 11:20-0400 Body weight 83.92 kg Darien Escamilla Other [employer] Other 05-01-2021 11:40-0400 Body height 175.26 cm Sonali Weavermond Other [employer] Other 05-01-2021 11:40-0400 Body mass index (BMI) [Ratio] 28.06 kg/m2 Sonali Catie Other [employer] Other 05-01-2021 11:40-0400 Body temperature 96.4 [degF] Sonali Catie Other [employer] Other 05-01-2021 11:40-0400 Body weight 86.18 kg Sonali Catie Other [employer] Other 05-01-2021 11:40-0400 Diastolic blood pressure 71 mm[Hg] Sonali Catie Other [employer] Other 05-01-2021 11:40-0400 Respiratory rate 18 /min Sonali Catie Other [employer] Other 05-01-2021 11:40-0400 SaO2% (BldA) [Mass fraction] 99 % Sonali Haddad Other [employer] Other 05-01-2021 11:40-0400 Systolic blood pressure 161 mm[Hg] Sonali Haddad Other [employer] Other 06-07-2019 22:15-0500 Respiratory rate 12 /min JANETH HUTTON [facility] Comment on above: Performed By: #### [id number] ####[facility] 06-07-2019 16:49-0500 Respiratory rate 12 /min JANETH HUTTON [facility] Comment on above: Order Comment: R/O Pneumothorax Performed By: [id number] ####[facility] Encounters Encounter Date Encounter Type Care Provider Facility Start: 01-02-2025 End: 01-02-2025 Gareth Jose MD Work Phone: [facility] Start: 01-02-2025 End: 01-02-2025 [facility] Work Phone: [facility] Start: 01-02-2025 End: 01-02-2025 Office outpatient visit 25 minutes Idris Jose MD Work Phone: [facility] Comment on above: Type 2 diabetes christi itus with hyperglycemia, without long-term current use of insulin (HCC) (Primary Dx); Essential hypertension, benign ; Diabetic polyneuropathy associated with type 2 diabetes mellitus (HCC); Chronic heart failure with preserved ejection fraction (HFpEF) (HCC); Paroxysmal atrial fibrillation (HCC); Peripheral vascular disease, unspecified Start: 12-13-2024 End: 12-13-2024 Clinisync Result Encounter Generic External Data Provider [facility] External Department Unsolicited Start: 12-13-2024 End: 12-13-2024 Clinisync Result Encounter Generic External Data Provider [facility] External Department Unsolicited Start: 12-03-2024 End: 12-04-2024 Refill Idris Jose MD Work Phone: [facility] Comment on above: Spinal stenosis, cer vical region Start: 11-13-2024 End: 11-13-2024 ambulatory [facility] Start: 11-08-2024 ambulatory [facility] Start: 11-07-2024 End: 11-07-2024 ambulatory [address] [facility] Start: 11-07-2024 End: 11-07-2024 Clinisync Result Encounter Generic External Data Provider [facility] External Department Unsolicited Start: 11-07-2024 End: 11-07-2024 Clinisync Result Encounter Generic External Data Provider [facility] External Department Unsolicited Start: 10-31-2024 End: 11-04-2024 Refill Idris Jose MD Work Phone: [facility] Comment on above: Spinal stenosis, cer vical region Start: 10-25-2024 ambulatory [facility] Start: 10-16-2024 End: 10-16-2024 Clinisync Result Encounter Generic External Data Provider [facility] External Department Unsolicited Start: 10-16-2024 End: 10-16-2024 Clinisync Result Encounter Generic External Data Provider [facility] External Department Unsolicited Start: 09-04-2024 End: 09-04-2024 [employer]amboo flowsheet Vonda ALEXIS Work Phone: [facility] Start: 09-04-2024 End: 09-04-2024 Bamboo flowsheet Vonda ALEXIS Work Phone: [facility] Start: 09-04-2024 End: 09-04-2024 ambulatory VONDA BURCH Not Available Start: 09-04-2024 End: 09-04-2024 Office outpatient visit 25 minutes Vonda ALEXIS Work Phone: [facility] Comment on above: Acute pain of right knee (Primary Dx); Acute pain of left knee; Arthritis of right knee; Arthritis of left knee; Instability of left knee joint; Varus deformity, not elsewhere classified, left knee Start: 08-23-2024 End: 09-02-2024 Telephone encounter Eugenie Jenkins PT [facility] Comment on above: Check on PT fu; fu; Call Back Start: 08-20-2024 End: 08-20-2024 [employer] JrWalt Felton DO Work Phone: [facility] Start: 08-20-2024 End: 08-20-2024 [employer] Jr. Halie Felton DO Work Phone: [facility] Start: 08-20-2024 End: 08-20-2024 ambulatory HALIE CHRISTIE Not Available Start: 08-20-2024 End: 08-20-2024 Office outpatient visit 15 minutes Jr. Halie Felton DO Work Phone: [facility] Comment on above: Chronic pain of both shoulders (Primary Dx); Rotator cuff arthropathy, right Start: 08-14-2024 End: 08-14-2024 Refill Idris Jose MD Work Phone: [facility] Comment on above: Seasonal allergic rh initis due to pollen Start: 08-07-2024 End: 08-07-2024 Refill Idris Jose MD Work Phone: [facility] Comment on above: Spinal stenosis, cer vical region Start: 08-06-2024 End: 08-06-2024 Clinisync Result Encounter Generic External Data Provider [facility] External Department Unsolicited Start: 08-06-2024 End: 08-06-2024 Clinisync Result Encounter Generic External Data Provider [facility] External Department Unsolicited Start: 08-05-2024 End: 08-05-2024 Clinisync Result Encounter Generic External Data Provider [facility] External Department Unsolicited Start: 08-05-2024 End: 08-05-2024 Clinisync Result Encounter Generic External Data Provider [facility] External Department Unsolicited Start: 08-02-2024 End: 08-03-2024 ambulatory Kya Espinoza EVENT MARKETING ASSISTANT [facility] Comment on above: Chronic pain of both shoulders (Primary Dx) Start: 08-02-2024 End: 08-02-2024 Bamboo flowsheet Kya Espinoza EVENT MARKETING ASSISTANT [facility] Start: 08-02-2024 End: 08-02-2024 Bamboo flowsheet Kya Espinoza EVENT MARKETING ASSISTANT [facility] Start: 08-02-2024 End: 08-02-2024 ambulatory LEXI GOLDMAN [facility] Start: 07-30-2024 End: 07-30-2024 ambulatory Kya Espinoza EVENT MARKETING ASSISTANT [facility] Comment on above: Chronic pain of both shoulders (Primary Dx) Start: 07-30-2024 End: 07-31-2024 Telephone encounter Bonita Lowe LINUX SYSTEM ENGINEER Work Phone: [facility] Comment on above: CT Scan Start: 07-29-2024 End: 07-29-2024 Bamboo flowsheet Bonita Lowe LINUX SYSTEM ENGINEER Work Phone: [facility] Start: 07-29-2024 End: 07-29-2024 Bamboo flowsheet Bonita Lowe LINUX SYSTEM ENGINEER Work Phone: [facility] Start: 07-29-2024 End: 07-29-2024 Office outpatient visit 15 minutes Bonita Lowe LINUX SYSTEM ENGINEER Work Phone: [facility] Comment on above: Left shoulder pain, unspecified chronicity (Primary Dx); Impingement of left shoulder; Glenohumeral arthritis, left; Acute pain of right shoulder; Internal derangement of right shoulder Start: 07-29-2024 End: 07-29-2024 ambulatory BONITA LOWE Not Available Start: 07-26-2024 End: 07-26-2024 ambulatory Eugenie Jenkins PT [facility] Comment on above: Chronic pain of both shoulders (Primary Dx) Start: 07-23-2024 End: 07-23-2024 Bamboo flowsheet Olu Brink EVENT MARKETING ASSISTANT [facility] Start: 07-23-2024 End: 07-23-2024 Bamboo flowsheet Olu Brink EVENT MARKETING ASSISTANT [facility] Start: 07-23-2024 End: 07-23-2024 ambulatory Olu Brink EVENT MARKETING ASSISTANT [facility] Comment on above: Chronic pain of both shoulders (Primary Dx) Start: 07-19-2024 End: 07-19-2024 Bamboo flowsheet Olu Brink EVENT MARKETING ASSISTANT [facility] Start: 07-19-2024 End: 07-19-2024 Bamboo flowsheet Olu Brink EVENT MARKETING ASSISTANT [facility] Start: 07-19-2024 End: 07-21-2024 ambulatory Olu Conwayink EVENT MARKETING ASSISTANT [facility] Comment on above: Chronic pain of both shoulders (Primary Dx) Start: 07-19-2024 End: 07-19-2024 Office outpatient visit 10 minutes Lion Lloyd APRN-COIL CUTTER Work Phone: [facility] Comment on above: Traumatic ulcer of r ight lower leg, limited to breakdown of skin (CMS-HCC) (Primary Dx); Traumatic ulcer of left lower leg, limited to breakdown of skin (CMS-HCC); Bilateral leg edema Start: 07-16-2024 End: 07-16-2024 Bamboo flowsheet Kya Kelbley EVENT MARKETING ASSISTANT [facility] Start: 07-16-2024 End: 07-16-2024 Bamboo flowsheet Kya Kelbley EVENT MARKETING ASSISTANT [facility] Start: 07-16-2024 End: 07-16-2024 ambulatory Kya Kelbley EVENT MARKETING ASSISTANT [facility] Comment on above: Chronic pain of both shoulders (Primary Dx) Start: 07-12-2024 End: 07-12-2024 Bamboo flowsheet Kya Kelbley EVENT MARKETING ASSISTANT [facility] Start: 07-12-2024 End: 07-12-2024 Bamboo flowsheet Kya Kelbley EVENT MARKETING ASSISTANT [facility] Start: 07-12-2024 End: 07-15-2024 ambulatory Kya Kelbley EVENT MARKETING ASSISTANT [facility] Comment on above: Chronic pain of both shoulders (Primary Dx) Start: 07-10-2024 End: 07-10-2024 ambulatory Eugenie Jenkins PT [facility] Comment on above: Chronic pain of both shoulders (Primary Dx) Start: 07-10-2024 End: 07-10-2024 Bamboo flowsheet Eugenie Jenkins PT [facility] Start: 07-10-2024 End: 07-10-2024 Bamboo flowsheet Eugenie Jenkins PT [facility] Start: 07-08-2024 End: 07-08-2024 Bamboo flowsheet Bonita Lowe LINUX SYSTEM ENGINEER Work Phone: [facility] Start: 07-08-2024 End: 07-08-2024 Bamboo flowsheet Bonita Herron Apljesús LINUX SYSTEM ENGINEER Work Phone: [facility] Start: 07-08-2024 End: 07-08-2024 Office outpatient visit 25 minutes Bonita Lowe LINUX SYSTEM ENGINEER Work Phone: [facility] Comment on above: Left shoulder pain, unspecified chronicity (Primary Dx); Chronic pain of both shoulders; Impingement of left shoulder; Glenohumeral arthritis, left Start: 07-08-2024 End: 07-08-2024 ambulatory BONITA LOWE Not Available Start: 07-05-2024 End: 07-05-2024 ambulatory LEXI Garduno JONES [facility] Start: 07-05-2024 End: 07-05-2024 Office outpatient visit 10 minutes Lion Lloyd APRN-COIL CUTTER Work Phone: [facility] Comment on above: 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) Start: 07-04-2024 End: 07-04-2024 Bamboo flowsheet Idris Jose MD Work Phone: [facility] Start: 07-04-2024 End: 07-04-2024 Bamboo flowsheet Idris Jose MD Work Phone: [facility] Start: 07-04-2024 End: 07-04-2024 ambulatory IDRIS JSOE Not Available Start: 07-04-2024 End: 07-04-2024 Office outpatient visit 25 minutes Idris Jose MD Work Phone: [facility] Comment on above: Type 2 diabetes christi itus with hyperglycemia, without long-term current use of insulin ([facility]/HCC) (Primary Dx); Essential hypertension, benign ([facility]); Diabetic polyneuropathy associated with type 2 diabetes mellitus ([facility]); Traumatic ulcer of right lower leg with fat layer exposed ([facility]); Chronic heart failure with preserved ejection fraction (HFpEF) ([facility]); Peripheral vascular disease, unspecified ([facility]); Paroxysmal atrial fibrillation ([facility]); Chronic pain of both shoulders; CKD stage 3b, GFR 30-44 ml/min ([facility]); Type 2 diabetes mellitus 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 ([facility]); Type 2 diabetes mellitus with diabetic chronic kidney disease ([facility]) Start: 06-21-2024 End: 06-21-2024 ambulatory [facility] Start: 06-21-2024 End: 06-21-2024 Office outpatient visit 10 minutes Lion Lloyd APRN-COIL CUTTER Work Phone: [facility] Comment on above: Traumatic ulcer of r ight lower leg with fat layer exposed ([facility]-HCC) (Primary Dx) Start: 06-07-2024 End: 06-07-2024 ambulatory [facility] Start: 06-07-2024 End: 06-07-2024 Office outpatient visit 10 minutes Lion Lloyd APRN-COIL CUTTER Work Phone: [facility] Comment on above: Traumatic ulcer of r ight lower leg with fat layer exposed ([facility]) (Primary Dx); Hematoma of right lower leg Start: 05-20-2024 End: 05-20-2024 Telephone encounter Raisa Ocampo LPN [facility] Outpatient Start: 05-17-2024 End: 05-17-2024 ambulatory [facility] Start: 05-17-2024 End: 05-17-2024 Patient encounter procedure Lion Lloyd SPECIAL CLIENT BUS DRIVER-COIL CUTTER Work Phone: [facility] Comment on above: 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); Hematoma of right lower leg Start: 05-07-2024 End: 05-07-2024 Telephone encounter Monique Noel RN [facility] Outpatient Comment on above: Care Navigation Start: 05-03-2024 End: 05-03-2024 Office outpatient visit 15 minutes Lion M Art SPECIAL CLIENT BUS DRIVER-COIL CUTTER Work Phone: [facility] Comment on above: 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); Hematoma of right lower leg Start: 05-03-2024 End: 05-03-2024 ambulatory [facility] Start: 05-01-2024 End: 05-01-2024 Clinisync Result Encounter Idris Jose MD Work Phone: [facility] Unsolicited Start: 05-01-2024 End: 05-01-2024 Clinisync Result Encounter Idris Jose MD Work Phone: [facility] Unsolicited Start: 05-01-2024 End: 05-01-2024 Orders Only Idris Jose MD Work Phone: [facility] Comment on above: Iron deficiency anem ia due to chronic blood loss (Primary Dx) Start: 04-29-2024 End: 04-29-2024 ambulatory [facility] Start: 04-26-2024 End: 04-26-2024 ambulatory [facility] Start: 04-26-2024 End: 04-26-2024 Patient encounter procedure Lion M Art SPECIAL CLIENT BUS DRIVER-COIL CUTTER Work Phone: [facility] Comment on above: 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); Hematoma of right lower leg Start: 04-22-2024 End: 04-22-2024 Telephone encounter Lexi Quiroz RN [facility] Outpatient Comment on above: Care Navigation Start: 04-19-2024 End: 04-19-2024 ambulatory LION Funmi LLOYD [facility] Start: 04-19-2024 End: 04-19-2024 Office outpatient new 20 minutes Lion Lloyd SPECIAL CLIENT BUS DRIVER-COIL CUTTER Work Phone: [facility] Comment on above: Traumatic ulcer of r ight lower leg with fat layer exposed ([facility]) (Primary Dx); Hematoma of right lower leg Start: 04-10-2024 End: 04-10-2024 Bamboo flowsheet Idris [...] JOSE Not Available Start: 03-28-2024 End: 03-28-2024 Bamboo flowsheet Idris Jose MD Work Phone: [facility] Start: 03-28-2024 End: 03-28-2024 Bamboo flowsheet Idris Jose MD Work Phone: [facility] Start: 03-28-2024 End: 03-28-2024 Office outpatient visit 25 minutes Idris Jose MD Work Phone: [facility] Comment on above: Cellulitis of right lower leg (Primary Dx); Type 2 diabetes mellitus with hyperglycemia, without long-term current use of insulin ([facility]); CKD stage 3b, GFR 30-44 ml/min ([facility]); Dyslipidemia ([facility]); Screening PSA (prostate specific antigen); Encounter for long-term (current) use of medications; Degenerative lumbar spinal stenosis Start: 03-28-2024 End: 03-28-2024 ambulatory IDRIS JOSE Not Available Start: 03-12-2024 End: 03-12-2024 ambulatory [facility] Start: 03-06-2024 End: 03-06-2024 Clinisync Result Encounter Generic External Data Provider [facility] Department Unsolicited Start: 03-06-2024 End: 03-06-2024 Clinisync Result Encounter Generic External Data Provider [facility] External Department Unsolicited Start: 12-04-2023 End: 12-04-2023 ambulatory IDRIS JOSE Not Available Start: 08-09-2023 Clinisync Result Encounter Generic External Data Provider [facility] External Department Unsolicited Start: 08-09-2023 Clinisync Result Encounter Generic External Data Provider [facility] External Department Unsolicited Start: 07-28-2023 End: 07-28-2023 ambulatory Sonali Haddad Other [employer] Other Start: 07-28-2023 Office outpatient vi sit 15 minutes Sonali Haddad [facility] [place] Start: 11-30-2022 ambulatory SHAIKH Iván EDDY Facilit y:H1 Start: 11-17-2022 End: 11-18-2022 ambulatory SHAIKH Iván EDDY Facility:[facility] Start: 11-14-2022 End: 11-15-[address] RAJENDRA FRANCO Facility:[facility] Start: 08-12-2022 End: 08-13-[address] DOCTOR LADD Facility:[facility] Start: 07-21-2022 End: 07-21-2022 ambulatory Kylah Valenzuela Other [employer] Other Start: 07-21-2022 Postop follow up vis it related to original px Kylah Valenzuela [facility] Start: 07-06-2022 End: 07-06-2022 ambulatory Idris Jose Facility:[facility] Start: 07-06-2022 End: 07-06-2022 Admission to same day surgery center MD Idris Jose Work Phone: [facility] [place] Start: 07-06-2022 End: 07-06-2022 ambulatory MD Idris Jose Work Phone: [facility] Work Phone: Start: 06-22-2022 End: 06-22-2022 ambulatory Idris Jose Facility:[facility] Start: 06-22-2022 End: 06-22-2022 ambulatory MD Idris Jose Work Phone: [facility] Work Phone: Start: 06-22-2022 End: 06-22-2022 Patient encounter procedure MD Idris Jose Work Phone: [facility] Start: 06-02-2022 End: 06-02-2022 ambulatory Darien Escamilla Other [employer] Other Start: 06-02-2022 Office outpatient vi sit [address] [facility] Start: 05-12-2022 End: 05-12-[address] KYA BETANCOURT . Facility:[facility]1 Start: 04-19-2022 End: 04-20-[address] IDRIS JOSE Facility:[facility]1 Start: 04-02-2022 End: 04-03-[address] IDRIS JOSE Facility:[facility]1 Start: 03-18-2022 End: 03-18-2022 ambulatory Darien Escamilla Other [employer] Other Start: 03-18-2022 Office outpatient vi sit [address] [facility] Neurosurgery Start: 02-09-2022 End: 02-10-[address] IDRIS JOSE Facility:[facility]1 Start: 02-02-2022 End: 02-03-[address] JOHNATHAN BOWMAN Facility:[facility]1 Start: 01-28-2022 ambulatory Facility:[id number] Start: 01-28-2022 End: 01-28-2022 ambulatory Idris Jose Facility:[facility] Start: 01-12-2022 ambulatory Facility:[id number] Start: 01-12-2022 End: 01-12-2022 ambulatory Idris Jose Facility:[facility] Start: 01-07-2022 End: 01-08-[address] DOCTOR LADD Facility:[facility]1 Start: 12-15-2021 End: 12-16-[address] PAPITO GUAMAN Facility:[facility]1 Start: 12-14-2021 End: 12-15-[address] IDRIS JOSE Facility:[facility]1 Start: 05-01-2021 Office outpatient vi sit 15 minutes Sonali Haddad [facility] [place] Start: 06-07-2019 End: 06-13-2019 Evaluation and management of inpatient JANETH JAKEAK Facility:[facility] Procedures Date Procedure Procedure Detail Performing Clinician Start: 12-13-2024 HMHP CBC WITH PLATEL ET NO DIFFERENTIAL Generic External Data Provider Start: 11-07-2024 ALL CBC WITH AUTO DIFF Generic External Data Provider Start: 10-16-2024 CA ECHO DOPPLER COMPLETE Generic External Data Provider Start: 09-04-2024 CAST / SPLINT / FX Nicholas lizzy ALEXIS Work Phone: Start: 09-04-2024 Arthrocentesis aspir &/inj major jt/bursa w/o us Vonda ALEXIS Work Phone: Start: 09-04-2024 Arthrocentesis aspir &/inj major jt/bursa w/o us Vonda ALEXIS Work Phone: Start: 09-04-2024 Radiologic examinati on knee 1/2 views Vonda ALEXIS Work Phone: Start: 08-06-2024 Ct upper extremity w/contrast material Generic External Data Provider Start: 08-05-2024 RF Guidance for fine needle aspiration of Unspecified body region Generic External Data Provider Start: 08-05-2024 XR ARTHROGRAM SHOULDER Generic External Data Provider Start: 07-08-2024 Radex shoulder compl ete minimum 2 views Bonita Lowe LINUX SYSTEM ENGINEER Work Phone: Start: 07-05-2024 NURSING COMMUNICATION A yandy Lloyd SPECIAL CLIENT BUS DRIVER-COIL CUTTER Work Phone: Start: 06-21-2024 NURSING COMMUNICATION A yandy Lloyd SPECIAL CLIENT BUS DRIVER-COIL CUTTER Work Phone: Start: 06-07-2024 NURSING COMMUNICATION A yandy Lloyd SPECIAL CLIENT BUS DRIVER-COIL CUTTER Work Phone: Start: 05-17-2024 NURSING COMMUNICATION A yandy Lloyd SPECIAL CLIENT BUS DRIVER-COIL CUTTER Work Phone: Start: 05-03-2024 NURSING COMMUNICATION A yandy Lloyd SPECIAL CLIENT BUS DRIVER-COIL CUTTER Work Phone: Start: 05-01-2024 ALL CBC WITH AUTO DIFF dIris Jose MD Work Phone: Start: 04-26-2024 NURSING COMMUNICATION A yandy Lloyd SPECIAL CLIENT BUS DRIVER-COIL CUTTER Work Phone: Start: 03-06-2024 ALL URINALYSIS Generic External Data Provider Start: 08-09-2023 [facility] CBC WITH PLATEL ET NO DIFFERENTIAL Generic External Data Provider Start: 11-17-[address] RAJENDRA FRANCO Comment on above: Performed By: #### M G, BMP, URIC, ALB, PHOS #### [facility] [address] [address] [address] Terence Love Start: 07-06-2022 Decompression of med yakelin nerve MD Idris Jose Work Phone: Start: 12-14-[address] RAJENDRA FRANCO Comment on above: Performed By: #### M G, BMP, URIC, ALB, PHOS #### [facility] [address] [address] [address] Terence Love Start: 06-12-2019 INSERTION OF [...] Td Vaccines (2 - Td or Tdap) [facility] Start: 12-13-2025 Urine screening for protein Diabetes: Urine Protein Screening [facility] Start: 07-07-2025 End: 07-07-2025 Patient encounter procedure 07/07/2025 2:00 PM EST [facility] [address] [place] [address] Idris Jose MD [address] [place] [address] [facility] Start: 07-05-2025 Tobacco Screening Tobacco Screening [facility] Start: 06-21-2025 Tobacco Screening Tobacco Screening [facility] Start: 06-07-2025 Tobacco Screening Tobacco Screening [facility] Start: 05-17-2025 Tobacco Screening Tobacco Screening [facility] Start: 05-03-2025 Tobacco Screening Tobacco Screening [facility] Start: 04-26-2025 Tobacco Screening Tobacco Screening [facility] Start: 03-06-2025 Urine screening for protein Diabetes: Urine Protein Screening [facility] Start: 03-03-2025 Influenza vaccination Influenza Vacc ine (#1) [facility] Start: 01-02-2025 End: 01-02-2026 Hemoglobin A1c/Hemoglobin.total in Blood Hemoglobin A1c Lab Routine Type 2 diabetes mellitus with hyperglycemia, without long-term current use of insulin (HCC) Expected: 01/02/2025 (Approximate), Expires: 01/02/2026 [facility] Work Phone: Comment on above: Expected: 01/02/2025 (Approximate), Expires: 01/02/2026 Start: 01-02-2025 End: 01-02-2025 Patient encounter procedure [facility] Comment on above: Arrived Start: 01-01-2025 End: 01-01-2025 Patient encounter procedure 01/01/2025 1:00 PM EDT Office Visit [facility] [address] [place] [address] Vonda Burch PA [address] [facility] [address] [place] [address] [facility] Start: 10-30-2024 Hemoglobin A1c measurement Diabetes: Hemoglobin A1C [facility] Start: 09-17-2024 End: 09-17-2024 Patient encounter procedure 09/17/2024 11:30 AM EDT Office Visit [facility] [address] Jr. Halie Felton DO [address] [facility] [address] [place] [address] [facility] Start: 09-04-2024 End: 09-04-2024 Patient encounter procedure 09/04/2024 1:15 PM EST Office Visit [facility] [address] [place] [address] Vonda Burch PA [address] [facility] [address] [place] [address] [facility] Start: 08-20-2024 End: 08-20-2024 Patient encounter procedure 08/20/2024 11:15 AM EST Office Visit [facility] [address] [place] [phone] Jr. Halie Felton, DO [address] [facility] [address] [place] [address] [facility] Start: 08-07-2024 End: 08-07-2024 Patient encounter procedure 08/07/2024 9:30 AM EST Office Visit [facility] [address] [facility] [address] [place] [phone] Jr. Halie Felton, DO [address] [facility] [address] [place] [address] [facility] Start: 08-02-2024 End: 08-02-2024 ambulatory 08/02/2024 2:30 PM EST Treatment [facility] [address] [facility] [address] [place] [phone] Kya Espinoza PTA [facility] Start: 08-02-2024 End: 08-02-2024 Patient encounter procedure 08/02/2024 1:00 PM EST Office Visit [facility] [address] [place] [phone] Lion Lloyd, SPECIAL CLIENT BUS DRIVER-COIL CUTTER [address] [facility] [address] [place] [address] Lexi Goldman, SPECIAL CLIENT BUS DRIVER-COIL CUTTER [address] [place] [address] [facility] Start: 07-30-2024 End: 07-30-2024 ambulatory 07/30/2024 3:30 PM EST Treatment [facility] [address] [place] [address] [place] [address] Kya Espinoza, EVENT MARKETING ASSISTANT [facility] Start: 07-29-2024 End: 07-29-2025 CT Shoulder - right Arthrogram CT shoulder arthrogram right Imaging Routine Internal derangement of right shoulder Expected: 07/29/2024 (Approximate), Expires: 07/29/2025 [facility] Work Phone: Comment on above: Expected: 07/29/2024 (Approximate), Expires: 07/29/2025 Start: 07-29-2024 End: 07-29-2024 Patient encounter procedure [facility] Comment on above: Left shoulder pain, unspecified chronicity (Primary Dx); Impingement of left shoulder; Glenohumeral arthritis, left Start: 07-26-2024 End: 07-26-2024 ambulatory 07/26/2024 1:30 PM EST Treatment [facility] [address] [facility] [address] [place] [phone] Eugenie Jenkins, OLGA [facility] Start: 07-23-2024 End: 07-23-2024 ambulatory [facility] Comment on above: Chronic pain of both shoulders (Primary Dx) Start: 07-19-2024 End: 07-19-2024 ambulatory [facility] Comment on above: Arrived Start: 07-19-2024 End: 07-19-2024 Patient encounter procedure 07/19/2024 1:20 PM EST Office Visit [facility] [address] [place] [phone] Lion Lloyd, SPECIAL CLIENT BUS DRIVER-COIL CUTTER [address] [facility] [address] [place] [address] Lexi Goldman, SPECIAL CLIENT BUS DRIVER-COIL CUTTER [address] [place] [address] [facility] Start: 07-16-2024 End: 07-16-2024 ambulatory 07/16/2024 1:30 PM EST Treatment [facility] [address] [facility] [address] [place] [phone] Kya Espinoza, REMBERTO [facility] Start: 07-12-2024 End: 07-12-2024 ambulatory [facility] Comment on above: Arrived Start: 07-10-2024 End: 07-10-2024 ambulatory [facility] Comment on above: Chronic pain of both shoulders Start: 07-08-2024 End: 07-08-2024 Patient encounter procedure 07/08/2024 1:30 PM EST Office Visit [facility] [address] [facility] [address] [place] [address] Bonita Lowe, LINUX SYSTEM ENGINEER [address] [facility] [address] [place] [address] Left shoulder pain, unspecified chronicity (Primary Dx); Chronic pain of both shoulders [facility] Comment on above: Left shoulder pain, unspecified chronicity (Primary Dx); Chronic pain of both shoulders Start: 07-05-2024 End: 07-05-2024 Patient encounter procedure 07/05/2024 10:20 AM EST Office Visit [facility] [address] [place] [facility] [address] Lion Lloyd, SPECIAL CLIENT BUS DRIVER-COIL CUTTER [address] [place] [address] Lexi Goldman, SPECIAL CLIENT BUS DRIVER-COIL CUTTER [address] [place] [address] [facility] Start: 07-03-2024 COVID-19 Vaccine ( season) COVID-19 Vaccine ( season) [facility] Start: 06-21-2024 End: 06-21-2024 Patient encounter procedure 06/21/2024 1:40 PM EST Office Visit [facility] [address] [place] [facility] [place] [address] Lion Lloyd, SPECIAL CLIENT BUS DRIVER-COIL CUTTER [address] [place] [address] Lexi Goldman, SPECIAL CLIENT BUS DRIVER-COIL CUTTER [address] [place] [address] [facility] Start: 06-07-2024 End: 06-07-2024 Patient encounter procedure 06/07/2024 1:40 PM EST Office Visit [facility] [address] [place] [facility] [address] Lion Lloyd, SPECIAL CLIENT BUS DRIVER-COIL CUTTER [address] [place] [address] Lexi Goldman, SPECIAL CLIENT BUS DRIVER-COIL CUTTER [address] [place] [address] [facility] Start: 05-17-2024 End: 05-17-2024 Patient encounter procedure 05/17/2024 2:00 PM EST Office Visit [facility] [address] [place] [facility] [place] [address] Lion Lloyd, SPECIAL CLIENT BUS DRIVER-COIL CUTTER [address] [place] [address] Lexi Goldman, SPECIAL CLIENT BUS DRIVER-COIL CUTTER [address] [place] [address] [facility] Start: 05-03-2024 End: 05-03-2024 Patient encounter procedure 05/03/2024 2:00 PM EDT Office Visit [facility] [address] [place] [address] Lion Lloyd, SPECIAL CLIENT BUS DRIVER-COIL CUTTER [address] [place] [address] Lexi Goldman, SPECIAL CLIENT BUS DRIVER-COIL CUTTER [address] [place] [address] [facility] Start: 05-01-2024 End: 05-01-2024 Patient encounter procedure 05/01/2024 11:30 AM EDT Office Visit [facility] [address] [place] [address] Idris Jose MD [address] [place] [address] [facility] Start: 04-26-2024 End: 04-26-2024 Patient encounter procedure 04/26/2024 1:40 PM EDT Office Visit [facility] [address] [place] [address] Lion Lloyd, SPECIAL CLIENT BUS DRIVER-COIL CUTTER [address] [place] [address] [place] [address] Lexi Goldman, SPECIAL CLIENT BUS DRIVER-COIL CUTTER [address] [place] [address] [facility] Start: 03-28-2024 End: 03-28-2025 Basic metabolic 1998 panel - Serum or Plasma Basic metabolic panel Lab Routine CKD stage 3b, GFR 30-44 ml/min ([facility]) Expected: 03/28/2024 (Approximate), Expires: 03/28/2025 [facility] Comment on above: Expected: 03/28/2024 (Approximate), Expires: 03/28/2025 Start: 03-28-2024 End: 03-28-2025 CBC W Auto Differential panel - Blood CBC and differential Lab Routine Encounter for long-term (current) use of medications Expected: 03/28/2024 (Approximate), Expires: 03/28/2025 [facility] Work Phone: Comment on above: Expected: 03/28/2024 (Approximate), Expires: 03/28/2025 Start: 03-28-2024 End: 03-28-2025 Hemoglobin A1c/Hemoglobin.total in Blood Hemoglobin A1c Lab Routine Type 2 diabetes mellitus with hyperglycemia, without long-term current use of insulin ([facility]) Expected: 03/28/2024 (Approximate), Expires: 03/28/2025 [facility] Comment on above: Expected: 03/28/2024 (Approximate), Expires: 03/28/2025 Start: 03-28-2024 End: 03-28-2025 Hepatic function 2000 panel - Serum or Plasma Hepatic function panel Lab Routine Encounter for long-term (current) use of medications Expected: 03/28/2024 (Approximate), Expires: 03/28/2025 [facility] Comment on above: Expected: 03/28/2024 (Approximate), Expires: 03/28/2025 Start: 03-28-2024 End: 03-28-2025 Lipid 1996 panel - Serum or Plasma Lipid panel Lab Routine Dyslipidemia ([facility]) Expected: 03/28/2024 (Approximate), Expires: 03/28/2025 [facility] Comment on above: Expected: 03/28/2024 (Approximate), Expires: 03/28/2025 Start: 03-28-2024 End: 03-28-2024 Patient encounter procedure 03/28/2024 2:00 PM EDT [facility] [address] [place] [phone] Idris Jose MD [address] [place] [address] Arrived KATE ROSALES Comment on above: Arrived Start: 03-28-2024 End: 03-28-2025 Prostate specific Ag [Mass/volume] in Serum or Plasma PSA Lab Routine Screening PSA (prostate specific antigen) Expected: 03/28/2024 (Approximate), Expires: 03/28/2025 [facility] Comment on above: Expected: 03/28/2024 (Approximate), Expires: 03/28/2025 Start: 03-03-2024 COVID-19 Vaccine ( season) COVID-19 Vaccine ( season) [facility] Start: 03-03-2024 COVID-19 Vaccine ( season) COVID-19 Vaccine () [facility] Start: 03-03-2024 Influenza vaccination [facility] Start: 02-15-2024 Adult BMI Screening Adult BMI Screen ing [facility] Start: 02-15-2024 Tobacco Screening Tobacco Screening [facility] Start: 03-03-2023 Influenza vaccination Influenza Vacc ine (#1) [facility] Start: 07-06-2022 End: 07-06-2022 [facility] Start: 04-18-2020 Urine screening for protein Diabetes: Urine Protein Screening [facility] Start: 12-01-2017 Hemoglobin A1c measurement Diabetes: Hemoglobin A1C [facility] Start: 2008 Fall Risk Screening Fall Risk Screen ing [facility] Start: 1993 Administration of varicella zoster vaccine Zoster (Shingles) Vaccine (1 of 2) [facility] Start: 1962 Administration of varicella zoster vaccine Zoster (Shingles) Vaccine (1 of 2) [facility] Start: 1962 Urine screening for protein Diabetes: Urine Protein Screening [facility] Start: 1955 Depression Screening Depression Scre ening [facility] Start: 1953 Glaucoma screening Diabetes: R etinopathy Screening [facility] Start: 1943 Medicare Annual Well ness (AWV) Medicare Annual Wellness (AWV) [facility] Start: 1943 Medicare Annual Well ness Visit Medicare Annual Wellness Visit [facility] Patient referral [facility] Work Phone: Immunizations Immunization Date Immunization Notes Care Provider Viviana cililynette 05-08-2024 influenza virus vaccine, unspecified formulation Idris Jose MD Work Phone: [facility] 11-09-2023 influenza virus vaccine, unspecified formulation Generic Provider [facility] 05-06-2022 COVID-19 mRNA Bivale nt Booster (Moderna) MD Idris Jose Work Phone: [facility] 05-06-2022 influenza virus vaccine, unspecified formulation Generic Provider [facility] 09-02-2020 COVID-19 mRNA-[id number] (Moderna) MD Idris Jose Work Phone: [facility] 08-05-2020 COVID-19 [id number] (Moderna) MD Idris Jose Work Phone: [facility] 06-04-2014 influenza virus vaccine, unspecified formulation Lion Lloyd SPECIAL CLIENT BUS DRIVER-COIL CUTTER Work Phone: [facility] 06-04-2014 pneumococcal conjuga te vaccine, 13 valent Lion Agarwal SPECIAL CLIENT BUS DRIVER-COIL CUTTER Work Phone: [facility] Payers Date Payer Category Payer Self-pay [id number] 2017 Commercial Managed C are - POS [employer] [id number] 2017 Managed Care HMO (unspecified) [id number] 2008 Medicare [id number]. 1.13.69 [id number] 1959 Medicare [id number] 1959 Private Health Insurance [id number] 1943 Unknown [id number] 2.16.840.1.868490.3.57 9.2.647 1943 Unknown [id number] 2.16.840.1.780505.3.57 9.2.356 1943 Unknown [id number] 2.16.840.1.046826.3.57 9.2.356 1943 Unknown [id number] 2.16.840.1.356401.3.57 9.2.593 1943 Unknown [id number] 2.16.840.1.435558.3.57 9.2.593 1943 Unknown [id number] 2.16.840.1.637916.3.57 9.2.593 1943 Unknown [id number] 2.16.840.1.370849.3.57 9.2.593 1943 Unknown [id number] 2.16.840.1.285143.3.57 9.2.593 1943 Unknown [id number] 2.16.840.1.745456.3.57 9.2.593 1943 Unknown [id number] 2.16.840.1.188998.3.57 9.2.593 1943 Unknown [id number] 2.16.840.1.541136.3.57 9.2.593 1943 Unknown [id number] 2.16.840.1.905030.3.57 9.2.593 1943 Unknown [id number] 2.16.840.1.140230.3.57 9.2.593 1943 Unknown [id number] 2.16.840.1.080620.3.57 9.2.593 1943 Unknown [id number] 2.16.840.1.713669.3.57 9.2.593 1943 Unknown [id number] 2.16.840.1.074917.3.57 9.2.1286 194 Unknown [id number] 2.16.840.1.976392.3.57 9.2.1286 1943 Unknown [id number] 2.16.840.1.273951.3.57 9.2.1286 1943 Unknown [id number] 2.16.840.1.017166.3.57 9.2.1286 1943 Unknown [id number] 2.16.840.1.440281.3.57 9.2.1286 1943 Unknown [id number] 2.16.840.1.046876.3.57 9.2.1286 1943 Unknown [id number] 2.16.840.1.574501.3.57 9.2.1286 1943 Unknown [id number] 2.16840.1.273029.3.57 9.2.1286 1943 Unknown [id number] 2.16.840.1.811867.3.57 9.2.1286 1943 Unknown [id number] 2.16.840.1.270513.3.57 9.2.1259 1943 Unknown [id number] 2.16840.1.118502.3.57 9.2.1259 1943 Unknown [id number] 2.16.840.1.120219.3.57 9.2.1259 1943 Unknown [id number] 2.16.840.1.223515.3.57 9.2.1259 1943 Unknown [id number] 2.16.840.1.256351.3.57 9.2.1259 194 Unknown [id number] 2.16.840.1.520110.3.57 9.2.1259 1943 Unknown [id number] 2.16.840.1.900136.3.57 9.2.1259 1943 Unknown [id number] 2.16.840.1.054020.3.57 9.2.1259 1943 Unknown [id number] 2.16.840.1.722786.3.57 9.2.1259 1943 Unknown [id number] 2.16.840.1.101205.3.57 9.2.1259 1943 Unknown [id number] 2.16.840.1.783094.3.57 9.2.125 1943 Unknown [id number] 2.16.840.1.482979.3.57 9.2.125 1943 Unknown [id number] 2.16.840.1.655756.3.57 9.2.1259 1943 Unknown [id number] 2.16.840.1.230740.3.57 9.2.125 1943 Unknown [id number] 2.16.840.1.439009.3.57 9.2.125 1943 Unknown [id number] 2.16.840.1.186895.3.57 9.2.1259 1943 Unknown [id number] 2.16.840.1.931964.3.57 9.2.125 1943 Unknown [id number] 2.16.840.1.028934.3.57 9.2.1259 Medicare [id number] Private Health Insurance Unknown [employer] Benefit [id number] Unknown [id number] 2.16.840.1.995291.3.57 9.2.531 Unknown [id number] 2.16.840.1.948033.3.57 9.2.531 Unknown [id number] 2.16.840.1.444903.3.57 9.2.531 Unknown [id number] 2.16.840.1.266397.3.57 9.2.531 Social History Date Type Detail Facility Unknown if ever smoked [place] [employer] Other Start: 12-22-2022 End: 03-28-2024 Sex Assigned At [facility] Other Start: 06-22-2022 End: 03-28-2024 Tobacco smoking status SDIS Ex-smoker (finding) [facility] Start: 1945 Sex Assigned At [facility] Start: 07-25-2022 End: 12-22-2022 Tobacco smoking status [facility] Never smoked tobacco [facility] Start: 12-22-2022 End: 01-02-2025 Alcohol intake Current drinker of alcohol (finding) [facility] Start: 12-22-2022 End: 03-28-2024 History of Social function [facility] Start: 12-22-2022 Alcohol Comment Caffeine 2-3 c ups per day [facility] Start: 1945 Sex Assigned At Not on file [facility] End: 07-03-1969 History of tobacco use Current smoker [facility] End: 07-03-1969 History of tobacco use Cigarette Smoker [facility] History of tobacco use Passive smoker [facility] Start: 07-25-2022 Tobacco use and exposure Smokeless tobacco non-user [facility] Unknown [facility] Start: 02-05-2015 Sex Male (finding) [facility] Medical Equipment Procedure Code Equipment Code Equipment Origin al Text Equipment Identifier Dates Intervertebral-b yosvany internal spinal fixation system [id number] FDA Start: 04-29-2020 Spinal fixation plate, non-bioabsorbable ()[id number] FDA Start: 04-29-2020 Spinal fixation plate, non-bioabsorbable ()[id number] FDA Start: 05-01-2020 Spinal fixation plate, non-bioabsorbable ()[id number] FDA Start: 04-29-2020 [id number] Start: 05-27-2024 End: 05-27-2025 Goals Date Patient Goal Desired Activity /State Clinical Notes 05-01-2021 to 01-02-2025 Idris Jose MD - 01/02/2025 11:42 AM Kenny Jose MD - 01/02/2025 11:42 AM Kenny Jose MD - 01/02/2025 11:42 AM Kenny Jose MD - 01/02/2025 11:41 AM EDTPatient Instructions Note Date & Type Note Facility 01-02-2025 History of Present illness Narrative Associated Problem(s): Type 2 diabetes mellitus with hyperglycemia, without long-term current use of insulin (HCC) Not checking BS and due for A1C. Stick to ADA diet and limit carbs. Associated Problem(s): Peripheral vascular disease, unspecified Symptoms stable and continue medication. Associated Problem(s): Paroxysmal atrial fibrillation (HCC) In NSR and monitor. Follow up with cardiology as scheduled. Associated Problem(s): Essential hypertension, benign BP controlled and monitor PRN. Associated Problem(s): Diabetic polyneuropathy (HCC) Pain stable and continue neurontin. Associated Problem(s): Chronic heart failure with preserved ejection fraction (HFpEF) (HCC) Edema stable and continue medication. Elevate legs PRN. Follow up with cardiology as scheduled. Images from the original note were not included. Subjective Patient ID: Jason Bartholomew is a 79 y.o. male who [...] cardiology as scheduled. documented in this encounter [facility] 11-13-2024 Note [facility] Cardiology Clinic Note Chief Complaint: Patient here for 1 week follow up labs per Derrick Arredondo COIL CUTTER Per patient he is feeling fine. No cardiac complaints HPI: Florencio Bartholomew is a 79 y.o. male With a history of mild [...] to 13 pounds since his last visit UPDATE 11/13/2024 Doing well; he has not had any recent rapid weight gain. He is put on about 6 pounds since April. Denies exertional shortness of breath, no orthopnea, no paroxysmal tunnel dyspnea. He has lower extremity edema worse at the end of the long day. It improves when she wakes up. 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 Cardiology ROS: Review of Systems Skin: Positive for color change. Musculoskeletal: Positive [...] He reports that he quit smoking about 65 years ago. His smoking use included cigarettes. He started smoking about 75 years ago. He has never used smokeless tobacco. He reports current alcohol use. He reports that he does not use drugs. Family History Family History Problem Relation Name [...] morning and at bedtime., Disp: , Rfl: carvedilol (Coreg) 3.125 mg tablet, TAKE 1 TABLET BY MOUTH TWICE DAILY (WITH BREAKFAST and WITH evening meal), Disp: 90 tablet, Rfl: 3 famotidine (Pepcid) 20 mg tablet, Take 1 tablet (20 mg) by mouth in the morning and at bedtime., Disp: 60 tablet, Rfl: 0 ferrous sulfate 325 (65 Fe) MG EC tablet, 1 (one) time each day at the same time., Disp: , Rfl: furosemide (Lasix) 20 mg tablet, TAKE 1 [...] AT BEDTIME (Patient not taking: Reported on 11/07/2024), Disp: 180 tablet, Rfl: 3 montelukast (Singulair) [...] 90 tablet, Rfl: 3 Last Recorded Vitals Ht 1.753 m (5' 9 ) BMI 27.47 kg/m??? Physical Examination: GENERAL: alert and oriented [...] NEURO: strength/sensation equal and symmetric in bilateral uppe (more content not included)... [facility] 11-07-2024 Note SUBJECTIVE Reason for Visit: Jason Bartholomew is a 79 y.o. year old male patient being seen for 6-month follow-up. HPI: Jason Bartholomew is a 79 y.o. year old male with significant medical history of mild to moderate CAD, HFpEF, CKD III, prior aortic valve replacement with bioprosthetic valve, s/p Medtronic pacemaker 06/11/2019, and PAF (status post A-fib ablation 04/21/2022). 11/07/2024 office visit: Patient was seen and evaluated in the office today for a routine 6-month follow-up. He denies chest pain but does report exertional dyspnea, which has been present over the past few weeks but has slightly improved in the last week. He admits to increased dietary salt intake in recent weeks (chip consumption and ham). He has noted worsening +1 lower extremity edema over the same time period, along with a gradual decrease in urine output over the past several weeks to months. He is scheduled to follow up with nephrology in the coming weeks. He appears in no acute distress. 04/29/2024 office visit (Dr. Bowman): States that he is more short of breath than he used to be several months ago. Denies chest pain. No orthopnea, no paroxysmal external dyspnea, no lower extremity edema. UPDATE 04/29/2024 He has lost 12 to 13 pounds since his last visit Past Medical History: Diagnosis Date Atrial fibrillation (CMS/HCC) Cedeño's palsy BPH (benign prostatic hyperplasia) Coronary artery disease Diabetes mellitus (CMS/HCC) GERD (gastroesophageal reflux disease) Hyperlipidemia Hypertension Past Surgical History: Procedure Laterality Date APPENDECTOMY CARDIAC VALVE REPLACEMENT CAROTID ENDARTERECTOMY CARPAL TUNNEL RELEASE Left 07/06/2022 INSERT / REPLACE / REMOVE PACEMAKER SHOULDER SURGERY Patient Active Problem List Diagnosis Aortic valve stenosis Carcinoma of prostate (CMS/HCC) Carotid atherosclerosis Essential hypertension History of deep vein thrombosis Stage 3 chronic kidney disease (CMS/HCC) Type 2 diabetes mellitus (CMS/HCC) Paroxysmal atrial fibrillation ([facility]/HCC) Arthritis of right knee Laceration of left lower extremity Laceration without foreign body, left lower leg, initial encounter Osteoarthritis of knee CHF (congestive heart failure), NYHA class III, acute on chronic, diastolic ([facility]/HCC) Chronic rhinitis Hematospermia Anxiety Carpal tunnel syndrome, left upper limb Cervical myelopathy (CMS/[facility]) Dysphagia Encounter for prophylactic measures, unspecified History of colon polyps Impaired mobility and ADLs Incomplete 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 ([facility]) Neurologic gait dysfunction Leukocytosis Orthostatic hypotension Restless leg syndrome Postoperative pain after spinal surgery Poor sleep Cedeño's palsy Bilateral leg edema BPH without urinary obstruction Cellulitis of right lower leg Chronic heart failure with preserved ejection fraction (HFpEF) (CMS/HCC) Complete heart block (CMS/HCC) Degenerative cervical spinal stenosis Degenerative lumbar spinal stenosis Diabetic polyneuropathy (CMS/HCC) DVT of lower extremity, bilateral (CMS/HCC) Dyslipidemia Encounter for long-term (current) use of medications Gastroesophageal reflux disease Peripheral vascular disease, unspecified Type 2 diabetes mellitus with hyperglycemia, without long-term current use of insulin (CMS/HCC) family history includes Heart failure in his brother and mother; Stroke in his brother. Social History Tobacco Use Smoking status: Former Current packs/day: 0.00 Types: Cigarettes Start date: 1949 Quit date: 1959 Years since quittin.3 Smokeless tobacco: Never Substance Use Topics Alcohol use: Yes Comment: OCCASIONAL OBJECTIVE Visit Vitals Smoking Status Former Physical Exam Constitutional: General Appearance: well-developed, appears stated age. Level of Distress: no acute distress. Neck: Jugular Veins: normal jugular venous pressure. Lungs: Auscultation: no rales or rhonchi and normal breath sounds. Cardiovascular: Rate And Rhythm: regular Heart Sounds: + murmur RUSB Extremities: +1 edema Peripheral Pulses: Pulses: full and equal in all extremities except if noted. Abdomen: Inspection and Palpation: non distended or tender and soft. Musculoskeletal: Inspection: no joint tenderness or swelling. Neurologic: Gait: normal gait. Psychiatric: Mental Status: alert and normal affect. Skin: Inspection and Palpation: warm and dry. Allergies: Allergies Allergen Reactions Sulfa (Sulfonamide Antibiotics) Swelling Outpatient Medications: Current Outpatient Medications Medication Instructions aspirin 81 mg EC tablet 1 tablet, oral, Daily atorvastatin (Lipitor) 40 mg tablet 1 tablet, oral, Every evening azelastine-fluticasone 137-50 mcg/spray spray,non-aerosol INSTILL 2 SPRAYS INTO EACH NOSTRIL 2 TIMES DAILY carvedilol (Coreg) 25 mg tablet 6.25 tablets, oral, 2 times daily RT carvedilol (Coreg) 3.125 mg tablet TA (more content not included)... [facility] 11-04-2024 Telephone encounter Note [facility] 11-04-2024 Miscellaneous Notes documented in this encounter [facility] 09-04-2024 History of Present illness Narrative Associated Order(s): L Inj/Asp: L knee; L Inj/Asp: R knee; Cast / Splint / Fx Post-Procedure Diagnose(s): Arthritis of left knee; Arthritis of right knee; Instability of left knee joint; Acute pain of left knee; Acute pain of right knee; Varus deformity, not elsewhere classified, left knee Images from the original note were not included. lefHISTORY OF PRESENT ILLNESS: EST PT Jason Bartholomew is an 79 y.o. @ male. (EST PT WITH [facility])-FLARE UP LT KNEE PAIN- HX LT KNEE CORTISONE INJ 08/21/23 XRAY LT KNEE TODAY EPIC 09/04/24 CORTISONE INJ 02/08/21,, 08/30/21, 05/18/22, 08/31/22, 08/21/23 HINGED BRACE VOLTAREN GEL WALKING SLOWLY WITH A CANE. PAIN IN KNEE, CAN BE MOSTLY POSTERIOR. +TYL PRN. +VOLTAREN. +POPPING, CRACKING. +GIVING OUT. SOMETIMES WAKES AT HS. History of Present Illness The patient came in to get his knee pain checked out, with the left knee hurting more than the right. 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 In the past, he has had cortisone injections that worked well for him. The pain is mainly around the inside of his knee and the area where the kneecap meets the thigh bone. We talked about the x-rays right there in the room. He mentioned that he wants to stick with the injections because they have helped him before. We also talked about changing some activities to help with the pain. He asked to get both knees injected today because he has limited time away from home due to his caregiving responsibilities. He plans to come back in 4 months if he needs more injections. He didn't have any more questions and was very thankful. Knee Pain - Onset: Not specified. - Location: Mainly around the inside of the knee and the area where the kneecap meets the thigh bone. - Duration: Not specified. - Character: Pain, with the left knee hurting more than the right. - Alleviating/Aggravating Factors: Cortisone injections have worked well in the past; prefers non-surgical treatment due to caregiving responsibilities; discussed changing some activities to help with the pain. - Timing: Plans to come back in 4 months if he needs more injections. - Severity: Not specified, but significant enough to seek injections and avoid surgery. ALLERGIES: Allergies Allergen Reactions Sulfa Antibiotics Swelling and Unknown Other Reaction(s): Not available HOME MEDICATIONS: Current Outpatient Medications Medication Instructions aspirin 81 MG EC tablet 1 tablet, Daily atorvastatin (LIPITOR) 40 mg, Oral, Daily Azelastine-Fluticasone 137-50 MCG/ACT suspension ADMINISTER 2 SPRAYS INTO AFFECTED NOSTRIL(S) IN THE MORNING AND 2 SPRAYS BEFORE BEDTIME. carvedilol (COREG) 6.25 mg, Oral, 2 times daily ferrous sulfate (FE TABS) 325 mg, Oral, Daily with breakfast, Do not crush, chew, or split. furosemide (Lasix) 20 MG tablet TAKE 1 TABLET BY MOUTH DAILY NEEDED (take for the next 2-3 days, may take NEEDED for leg swelling and SHORTNESS OF BREATH) gabapentin (Neurontin) 600 MG tablet TAKE 1 TABLET BY MOUTH THREE TIMES DAILY (IN THE MORNING, IN THE EVENING and BEFORE bedtime) glimepiride (AMARYL) 2 mg, Oral, 2 times daily glucose blood test strip Test once daily hydrALAZINE (Apresoline) 25 MG tablet lisinopril 40 MG tablet Oral for 90 methylPREDNISolone (Medrol Dospak) 4 MG tablets Follow schedule on package instructions montelukast (SINGULAIR) 10 mg, Oral, Daily pantoprazole (ProtoNix) 40 MG EC tablet Take 1 tablet twice a day by oral route for 90 days. pioglitazone (ACTOS) 30 mg, Oral, Daily rOPINIRole (REQUIP) 0.25 mg, Oral, Nightly tamsulosin (FLOMAX) 0.4 mg, Oral, Daily Xarelto 20 MG tablet TAKE 1 TABLET WITH EVENING MEAL, TAKE WITH FOOD PHYSICAL EXAM: Knee Musculoskeletal Exam Gait Antalgic: right and left Inspection Leg length disparity: no discrepancy Right Erythema: none Effusion: mild Edema: none Ecchymosis: none Deformity: none Alignment: varus Left Erythema: none Effusion: mild Edema: none Ecchymosis: none Deformity: none Alignment: varus Palpation Right Right knee palpation is unremarkable. Increased warmth: none Masses: none Crepitus: patellofemoral and medial Tenderness: present Medial joint line: moderate Patella: mild Left Left knee palpation is unremarkable. Increased warmth: none Masses: none Crepitus: patellofemoral and medial Tenderness: present Medial joint line: moderate Patella: mild Range of Motion Right Right knee range of motion is normal and full. Active extension: 5 Passive extension: 5 Active flexion: 115 Passive flexion: 120 Left Left knee range of motion is normal and full. Active extension: 5 Passive extension: 5 Active flexion: 115 Passive flexion: 120 Strength Right Right knee strength is normal. Extension: 5/5. Extension is affected by pain. Flexion: 5/5. Flexion is affected by pain. Left Left knee strength is normal. Extension: 5/5. Extension is affected by pain. Flexion: 5/5. Flexion is affected by pain. Instability Right Instability signs: none - stable Anterior drawer: normal Left Anterior drawer: normal Instability additional comments: Left knee with MCL and LCL laxity, firm end point noted. Neurovascular Right Right knee neurovascular exam is normal. Pulses - PT: normal Posterior tibial: 2+ Capillary refill: warm and well-perfused Left Left knee neurovascular exam is normal. Pulses - PT: normal Posterior tibial: 2+ Capillary refill: warm and well-perfused Special Signs Right Right knee special signs are normal. Patellar compression: mild Patellar apprehension: mild Left Left knee special signs are normal. Straight leg raise: normal Patellar compression: mild Patellar apprehension: mild General Constitutional: appears stated age Labored breathing: no Psychiatric: normal mood and affect Neurological: alert Skin: intact Lymphadenopathy: none Physical Exam Vitals: There is no height or weight on file to calculate BMI. Tobacco Use: Medium Risk (09/04/2024) Patient History Smoking Tobacco Use: Former Smokeless Tobacco Use: Unknown Passive Exposure: Past Alcohol Use: Not on file IMAGING: Results L Inj/Asp: L knee on 09/04/2024 1:54 PM Indications: pain Details: 22 G needle, anterolateral approach Medications: 40 mg methylPREDNISolone acetate 40 MG/ML Outcome: tolerated well, no immediate complications UTILIZING ASEPTIC TECHNIQUE PT GIVEN INJECTION IN LEFT KNEE, NEUROVASC INTACT S/P INJ, TOLERATED WELL Procedure, treatment alternatives, risks and benefits explained, specific risks discussed. Consent was given by the patient. Patient was prepped and draped in the usual sterile fashion. L Inj/Asp: R knee on 09/04/2024 1:54 PM Indications: pain Details: 22 G needle, anterolateral approach Medications: 40 mg methylPREDNISolone acetate 40 MG/ML Outcome: tolerated well, no immediate complications E UTILIZING ASEPTIC TECHNIQUE PT GIVEN INJECTION IN RIGHT KNEE, NEUROVASC INTACT S/P INJ, TOLERATED WELL Procedure, treatment alternatives, risks and benefits explained, specific risks discussed. Consent was given by the patient. Cast / Splint / Fx Date/Time: 09/04/2024 2:00 PM Performed by: REUBEN Herrera Authorized by: REUBEN Herrera Consent given by: patient Timeout: Immediately prior to procedure a time out was called to verify the correct patient, procedure, equipment, postal support employee and site/side marked as required Injury Location details: left knee Pre-procedure assessment neurovascularly intact Range of motion: reduced Procedure Manipulation performed? no manipulation performed Immobilization: brace Post-procedure assessment neurovascularly intact Patient tolerance: patient tolerated the procedure well with no immediate complications Comments A left L1820 off the shelf, prefabricated, knee orthosis with condylar pads and joints with or without patellar control was dispensed, fitted, and adjusted at this visit. The function of the device is to provide support, decrease edema, control motion at the knee joint. It will redistribute pressure and allow more comfortable weight-bearing and better support. It is for increased stability of the knee joint. The goals of the device are to decrease pain decrease inflammation, increase stability and to allow the patient to ambulate independently. The device is medically necessary for the condition, symptoms and diagnosis. It was dispensed and fitted for the patient, and it fit properly. The patient was educated as to proper use and care, and this was reviewed in detail. Written instructions and warranty information were given with the device. A receipt for the device is on file. The current supplier standards were given to the patient. [employer] patient agreement was completed at time of dispensement.. The patient stated that the device was comfortable when fitted in the office and the patient was able to ambulate without distress with this knee orthosis. At the time of dispensement, the device was suitable and not substandard. Orders Placed This Encounter Procedures L Inj/Asp This order was created via procedure documentation XR knee 1 or 2 views left Order Specific Question: Views Answer: AP Order Specific Question: Views Answer: Lateral Order Specific Question: Reason for exam: Answer: LEFT KNEE PAIN ASSESSMENT: ICD-10-CM 1. Acute pain of left knee M25.562 XR knee 1 or 2 views left Assessment & Plan 1. Bilateral knee pain, left greater than right. He has had a cortisone injection in the past with good relief. Pain is medial and patellofemoral. X-rays were discussed at bedside. He reports he is not in the position for any surgical intervention at this time and is requesting conservative measures with injections which he has received in the past with good relief. We discussed activity modifications. Patient would like to have both knees injected today given time constraints with being away from his home as he cares for family. He will follow up in 4 months for possible repeat injections if symptoms are needed. X-ray was discussed at the bedside. Patient had no further questions and was very appreciative. Follow-up The patient will follow up in 4 months. Hinged knee brace left knee: pt noting instability and not ready for surgery.. has used in the past with relief... declines though of medial compliance analyst brace with application and use. Questions answered in laymen terms at the bedside. The diagnosis, home exercise plan and any ongoing restrictions/ recommendations reviewed. If unable to be reached in office, I recommend evaluation at nearest Emergency Room if any symptoms worsened or new symptoms develop for requiring urgent evaluation. documented in this encounter [facility] 08-26-2024 Telephone encounter Note He called back noting per fu the doctor said he is in need of a R shoulder repair; he said he is dealing w/ no pain but it is in need of sx. He said there really was no indication given per doctor if more PT is needed; but he did request for your recommendation on what to do now. [facility] 08-26-2024 Miscellaneous Notes He called back noting per fu the doctor said he is in need of a R shoulder repair; he said he is dealing w/ no pain but it is in need of sx. He said there really was no indication given per doctor if more PT is needed; but he did request for your recommendation on what to do now. Tried to contact to check on fu that was on 08/20 but had to lm requesting a call back to check on PT status. And ask if we need to schedule on. documented in this encounter [facility] 08-23-2024 Telephone encounter Note Tried to contact to check on fu that was on 08/20 but had to lm requesting a call back to check on PT status. And ask if we need to schedule on. [facility] 08-20-2024 History of Present illness Narrative Images from the original note were not included. HISTORY OF PRESENT ILLNESS: EST PT Jason Bartholomew is an 79 y.o. @ male. EST PT WITH [facility]. HERE FOR RT SHOULDER CT/ARTHROGRAM RESULTS [facility] 08/05/24 CT/ARTHROGRAM 08/05/24 [facility] XR 07/08/24 EPIC MDP 07/08/24 50% RELIEF PHYSICAL THERAPY JVS JOHN PRIOR B/L ROTATOR CUFF REPAIR PER DR BOURNE IN [place] PT NOTES MINIMAL DISCOMFORT- VERY LIMITED ROM- PT CONTINUES TO SLEEP ON RECLINER - NO PAIN MEDS - +N/T IN HANDS - +GABAPENTIN COTY: PT JERKED ARM WHEN HE ALMOST FELL ~ 2 MNS AGO, NOTES INCREASED SHOULDER PAIN WHICH HAD BEEN ONGOING PRIOR TO THIS INCIDENT *ON XARELTO FOR A-FIB* Pt's has Alzheimer's, has been having to do a lot. RT handed. ALLERGIES: Allergies Allergen Reactions Sulfa Antibiotics Swelling and Unknown Other Reaction(s): Not available HOME MEDICATIONS: Current Outpatient Medications Medication Instructions aspirin 81 MG EC tablet 1 tablet, Daily atorvastatin (LIPITOR) 40 mg, Oral, Daily Azelastine-Fluticasone 137-50 MCG/ACT suspension ADMINISTER 2 SPRAYS INTO AFFECTED NOSTRIL(S) IN THE MORNING AND 2 SPRAYS BEFORE BEDTIME. carvedilol (COREG) 6.25 mg, Oral, 2 times daily ferrous sulfate (FE TABS) 325 mg, Oral, Daily with breakfast, Do not crush, chew, or split. furosemide (Lasix) 20 MG tablet TAKE 1 TABLET BY MOUTH DAILY NEEDED (take for the next 2-3 days, may take NEEDED for leg swelling and SHORTNESS OF BREATH) gabapentin (Neurontin) 600 MG tablet TAKE 1 TABLET BY MOUTH THREE TIMES DAILY (IN THE MORNING, IN THE EVENING and BEFORE bedtime) glimepiride (AMARYL) 2 mg, Oral, 2 times daily glucose blood test strip Test once daily hydrALAZINE (Apresoline) 25 MG tablet lisinopril 40 MG tablet Oral for 90 methylPREDNISolone (Medrol Dospak) 4 MG tablets Follow schedule on package instructions montelukast (SINGULAIR) 10 mg, Oral, Daily pantoprazole (ProtoNix) 40 MG EC tablet Take 1 tablet twice a day by oral route for 90 days. pioglitazone (ACTOS) 30 mg, Oral, Daily rOPINIRole (REQUIP) 0.25 mg, Oral, Nightly tamsulosin (FLOMAX) 0.4 mg, Oral, Daily Xarelto 20 MG tablet TAKE 1 TABLET WITH EVENING MEAL, TAKE WITH FOOD PHYSICAL EXAM: Shoulder Musculoskeletal Exam Inspection Right Right shoulder inspection is normal. Ecchymosis: none Peripheral edema: none Atrophy: none Masses: none Palpation Right Crepitus: no crepitus Increased warmth: none Tenderness: present Anterior shoulder: mild AC joint: mild Proximal biceps: moderate Lateral arm: mild Range of Motion Right Right shoulder range of motion is normal. Active ROM: pain. Passive ROM: pain. Active forward elevation: 90. Passive forward elevation: 160. Shoulder active abduction: 90. Passive abduction: 160. Active external rotation at side: 40. Passive external rotation at side: 50. Internal rotation: L1. Strength Right External rotation: 5/5. Internal rotation: 5/5. Abduction: 3/5. Biceps: 5/5. Triceps: 5/5. Neurovascular Right Radial pulse: normal and 2+ Capillary refill: <3 sec Axillary nerve sensory distribution: normal Scapula Right Right shoulder scapula is normal. Position: normal Winging: none Special Tests Right Rotator Cuff Signs Neer's test: positive Johnson test: positive Painful arc test: positive Biceps/paul Signs Speed's test: positive General Constitutional: appears stated age Neurological: alert and oriented x3 Vitals: There is no height or weight on file to calculate BMI. Tobacco Use: Medium Risk (08/20/2024) Patient History Smoking Tobacco Use: Former Smokeless Tobacco Use: Unknown Passive Exposure: Past Alcohol Use: Not on file IMAGING: Procedures No orders of the defined types were placed in this encounter. ASSESSMENT: ICD-10-CM 1. Chronic pain of both shoulders M25.511 G89.29 M25.512 2. Rotator cuff arthropathy, right M12.811 PLAN: We have discussed his symptoms, physical exam, and CAT scan. He has a rotator cuff arthropathy. He refuses surgical intervention at this time. States that he is in no pain, persistent lack of motion and is concerned about. His home exercise program. We'll see him back when necessary for his shoulders. We will see him back in 1 month for his left knee. Questions answered in laymen terms at the bedside. The diagnosis, home exercise plan and any ongoing restrictions/ recommendations reviewed. If unable to be reached in office, I recommend evaluation at nearest Emergency Room if any symptoms worsened or new symptoms develop for requiring urgent evaluation. documented in this encounter [facility] 07-31-2024 Telephone encounter Note Left message for pt to see Dr Felton on 08/07 at 9:30 in [place] office [facility] 07-31-2024 Miscellaneous Notes Left message for pt to see Dr Felton on 08/07 at 9:30 in [place] office Patient called to let you know that he has his CT scan scheduled for 08/05 at [facility] at 12:30. documented in this encounter [facility] 07-30-2024 Telephone encounter Note Patient called to let you know that he has his CT scan scheduled for 08/05 at [facility] at 12:30. [facility] 07-29-2024 History of Present illness Narrative Images from the original note were not included. Subjective Patient ID: Jason Bartholomew is a 79 y.o. male. LT shoulder/RT shoulder 3 weeks s/p MDP (07/08/24) with 50% improvement and P.T. #6 noms john ~ 6 weeks. Pt started to fall and caught himself, pain ever since. Loss of ROM. Prior RCR bilateral shoulders. He notes his shoulders were bothering him even before the fall. He notes he jerked really hard when he was about to fall but did not fall or hit anything. Pain will be lateral upper arm with movements. No pain meds. Denies topicals. ROM has improved some. Continues PT, doing HEP. Pain can be around 4/10. Denies much today. Pain at rest 0/10, with activities (therapy pain in the left shoulder) 4-5/10 Admits N/T in hands since neck sx, no more than usual. Taking Gabapentin. Occas popping. Does not wake at HS, sleeps in recliner. Hx of physical therapy in the past. [place]: PCP 07/04/24, XR NOMS 07/08/24, TYL, MDP (07/08/24), PT NOMS John Pt's has Alzheimer's, has been having to do a lot. RT handed. Objective Right Shoulder Exam Range of Motion Active abduction: 70 Muscle Strength Abduction: 3/5 Tests Drop arm: positive Left Shoulder Exam Range of Motion Active abduction: 90 Muscle Strength Abduction: 3/5 Tests Johnson test: positive Drop arm: positive Shoulder Musculoskeletal Exam Palpation Right Tenderness: none Left Tenderness: present Range of Motion Right Active forward elevation: 50. Shoulder active abduction: 70. Active external rotation in abduction: 50. Internal rotation: side. Left Active ROM: no pain. Active forward elevation: 90. Shoulder active abduction: 90. Active external rotation in abduction: 50. Internal rotation: L5. Strength Right Abduction: 3/5. Left Abduction: 3/5. Special Tests Right Rotator Cuff Signs Drop arm test: positive Left Rotator Cuff Signs Johnson test: positive Drop arm test: positive I reviewed the P.T. note from 07/19/24 #4, pt still having significant pain in the left shoulder, has marked weakness in the right shoulder. Assessment/Plan Encounter Diagnoses: ICD-10-CM 1. Left shoulder pain, unspecified chronicity M25.512 2. Impingement of left shoulder M25.812 3. Glenohumeral arthritis, left M19.012 4. Acute pain of right shoulder M25.511 5. Internal derangement of right shoulder M24.811 May continue with therapy/HEP, discussed a CT arthrogram to be done at [facility] of the right shoulder, f/U s/p CT of the arthrogram of the right shoulder documented in this encounter [facility] 07-26-2024 History of Present illness Narrative Physical Therapy Treatment Visit Patient Name: Jason Bartholomew Today's Date: 07/26/2024 Encounter Diagnoses Name Primary? Chronic pain of both shoulders Yes Visit number: 5 Timed Code Treatment: 47 minutes Total Treatment Time: 57 minutes Time In: 1330 Time Out: 1435 History: Pt states all of the sudden he noticed he wasn't raising his shoulders too high. Has a history of broke neck, 4-5 years ago. Now having trouble reaching up into cupboards. Left shoulder is more painful but can reach higher with that arm. States was given steroids which has helped with pain. Has a history of bilateral RCR. Also states he know he has arthritis in bilateral shoulders. Has had to sleep in recliner now because he gets significant pain when rolling onto either shoulder. Precautions: PACEMAKER Subjective: Pt states shoulders are feeling better. Some pain in left shoulder today. Pain: 4/10 Objective: PT Evaluation (07/10/2024) Right SHOULDER AROM: 32 degrees flexion, 38 degrees abduction, 20 degrees ER PROM: 138 degrees flexion, 114 degrees abduction, 65 degrees ER Strength: flexion 4-/5, abduction 3+/5, ER 2/5, IR 4/5; supraspinatus 3-/5 Special Test: difficulty obtaining testing positions Left SHOULDER AROM: 68 degrees flexion, 70 degrees abduction, 38 degrees ER PROM: 138 degrees flexion, 128 degrees abduction, 66 degrees ER Strength: flexion 4-/5, abduction 4-/5, ER 3-/5, IR 4+/5; supraspinatus 3-/5 Special Test: difficulty obtaining testing positions Treatment: Manual Therapy: Passive ROM, Joint mobilization, Soft Tissue Mobilization, Myofascial Release, Muscle Energy Technique, Neural Mobilization, Myofascial Cupping, Dry Needling, IASTM, and Scar mobilization as needed. Therapeutic Exercise: (38 minutes supervised ) Guided pt through ther and flex ex per grid to improve bilateral UE/ shoulder Strength, Endurance, Flexibility, ROM, HEP, Neural Mobilization, Power, and Core Stability as needed. Therapeutic Activity: Exercises to improve dynamic activities, functional tasks, functional mobility to return to prior activity level as needed. Neuromuscular re-education: Balance Training, Muscle Facilitation, Dynamic Stability, Core Stabilization, and Blood Flow Restriction Training (BFRT) as needed. Modalities: Heat and/or Ice. HP to bilateral shoulders in sitting at end of treatment Assessment: Pt has completed 5 PT sessions for bilateral shoulder pain. AROM right shoulder: 42 degrees flexion, 64 degrees abduction; AROM left shoulder: 75 degrees flexion, 85 degrees abduction. Performed exercises in supine this date with good nuno. Will continue to progress as pt tolerates. Outcome Measure: Upper Extremity Functional Index (UEFI): 37/80 Rehab Diagnosis: bilateral shoulder pain and weakness; limited shoulder ROM and mobility bilateral Short Term Goal: To be met in 2 weeks Goal 1: Pt to be instructed in home exercise program. Half-Way Goals: To be met in 10 weeks Goal 1: Pt to report independence and compliance with home program. Goal 2: Pt to achieve 90 degrees of right shoulder flexion to assist with overhead reaching. Goal 3: Pt to achieve 90 degrees of right shoulder abduction to assist with grooming hair. Goal 4: Pt to achieve 4-/5 strength right shoulder in all planes to assist with functional tasks and lifting. Goal 5: Pt to achieve 130 degrees of left shoulder flexion to assist with overhead reaching. Goal 6: Pt to achieve 120 degrees of left shoulder abduction to assist with grooming hair. Goal 7: Pt to achieve 4/5 strength left shoulder in all planes to assist with functional tasks and lifting. Goal 8: Pt to score no less than 50/80 on UEFI indicating improved QOL. Pt will benefit from skilled PT for 2x/week from 07/10/2024 to 09/18/2024 to address the above impairments. I hereby deem this POC medically necessary. Please sign below. Date: documented in this encounter [facility] 07-19-2024 History of Present illness Narrative Images from the original note were not included. Wound Care Progress Note Patient: Jason Bartholomew Date of : 1945 Chief Complaint: Traumatic right lower leg wound, follow up Presents with a small new wound of left medial lower leg Subjective/HPI: Jason is a 79 y.o. male who present to [facility] for evaluation of 2 ulcer(s) on the right lateral lower leg and left medial lower leg. Patient established with wound clinic 04/19/2024. Current daily wound care includes: Alginate covered with dry gauze, changed daily by patient's daughter. Patient states he hit his left lower leg on the shed door while attempting to open it. Patient presented to the ER 03/23/2024 for [...] results and radiographic examination. Measurable wound changes: Decrease wound measurement, 100% granulation 0.8 cm increase right lower leg calf circumference Patient accompanied by: Self, arrives in wheelchair, ambulates with the use of a cane Nutritional screen shows patient does not take in three servings of protein per day. Patient does deny fever, chills, sweats or other symptoms of infection. Prescribed antibiotics: Completed as prescribed Today's reported Blood sugar: 97 Lab Results Component Value Date HGBA1C 7.2 (H) 08/31/2017 HGBA1C 6.8 (H) 08/11/2015 Tobacco:denied - never a smoker Contributing comorbid conditions: Atrial fibrillation treated with Xarelto Patient Active Problem List Diagnosis Chronic rhinitis Hematospermia Traumatic ulcer of right lower leg with fat layer exposed ([facility] [place]) Aortic valve stenosis Anxiety Arthritis of right knee Cedeño's palsy Benign essential hypertension Bilateral leg edema BPH without urinary obstruction Carcinoma of prostate ([facility] [place]) Carotid atherosclerosis Carpal tunnel syndrome, left upper limb Cellulitis of right lower leg Cervical myelopathy ([facility] [place]) CHF (congestive heart failure), NYHA class III, acute on chronic, diastolic ([facility] [place]) Chronic heart failure with preserved ejection fraction (HFpEF) ([facility] [place]) Complete heart block ([facility] [place]) Degenerative cervical spinal stenosis Degenerative lumbar spinal stenosis Diabetic polyneuropathy ([facility] [place]) DVT of lower extremity, bilateral ([facility] [place]) Dyslipidemia Dysphagia Gastroesophageal reflux disease History of colon polyps Incomplete 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 ([facility] [place]) Laceration without foreign body, left lower leg, initial encounter Leukocytosis Paroxysmal atrial fibrillation ([facility] [place]) Peripheral vascular disease, unspecified ([facility] [place]) Type 2 diabetes mellitus with hyperglycemia, without long-term current use of insulin ([facility] [place]) Stage 3 chronic kidney disease ([facility]) CKD stage 3b, GFR 30-44 ml/min ([facility] [place]) Neurologic gait dysfunction Unsteady gait Orthostatic hypotension Chronic pain of both shoulders Past Medical History: Diagnosis Date Blood in semen Cancer ([facility]) SKIN, PROSTATE Diabetes mellitus ([facility]) GERD (gastroesophageal reflux disease) Hyperlipidemia Hypertension Hypertensive heart disease Past Surgical History: Procedure Laterality Date APPENDECTOMY CAROTID ARTERY ANGIOPLASTY Left 07/03/2010 CERVICAL SPINE SURGERY c clamp in neck RELEASE TRIGGER FINGER Left 09/08/2021 Performed by Quan Chong DO at [facility] ROTATOR CUFF REPAIR Bilateral Current Outpatient [...] Allergies Allergen Reactions Sulfa (Sulfonamide Antibiotics) Social Drivers of Health Food Insecurity: No Food Insecurity (07/19/2024) Hunger Screening Food Insecurity - Worry: Never True Food Insecurity - Inability: Never True Housing Instability: Not on file Transportation Needs: Not on file Utility Difficulties: Not on file Interpersonal Safety: Unknown (08/24/2023) [facility] [place] [facility] Environment Fear of Current or Ex-Partner: Not on file Emotionally Abused: Not on file Physically Abused: Not on file Sexually Abused: Not on file Physically or Sexually Abused: Not on file Financial Resource Strain: Not on file Childcare: Unknown (12/12/2018) Childcare Childcare: Unknown Recent Concern: Childcare - High Risk (09/26/2018) Childcare Childcare: Unknown Employment: Unknown (12/12/2018) Employment Employment: Unknown Recent Concern: Employment - High Risk (09/26/2018) Employment Employment: Unknown Purpose - Life: Unknown (08/13/2020) Purpose - Life Purpose and direction in life: Unknown Depression: Not at risk (03/28/2024) Received from [facility] PHQ-2 Patient Health Questionnaire-2 Score: 0 Alcohol Use: Not on file Tobacco Use: Medium Risk (07/08/2024) Received from [facility] Patient History Smoking Tobacco Use: Former Smokeless Tobacco Use: Unknown Passive Exposure: Past Social Connections: Not on file Physical Activity: Not on file Stress: Not on file The following portions of the patient's history were reviewed and updated as appropriate: allergies, current medications, past family history, past medical history, past social history, past surgical history, problem list, and medication reconciliation was completed including current medication and post discharge medication. PAIN: denies Pain Scale 0/10: 0 Review of Systems Constitutional: Negative for activity [...] concentration. The patient is nervous/anxious. Objective: Vitals: 07/19/24 1342 Resp: 16 Temp: 36.6 C (97.8 F) Physical Exam Vitals reviewed. Constitutional: General: He is not in acute distress. Appearance: He is not ill-appearing or diaphoretic. Cardiovascular: Rate and Rhythm: Normal rate. Pulses: Dorsalis pedis pulses are 2+ on the right side. Posterior tibial pulses are 2+ on the right side. Comments: Right and left pedal pulses strongly palpable Right and left leg with 1+ soft pitting daya wound edema Right and left leg warm, diminished hair growth Pulmonary: Effort: Pulmonary effort is normal. No respiratory distress. Breath sounds: No wheezing. Musculoskeletal: General: Swelling and tenderness present. Right lower leg: No edema. Left lower leg: No edema. Skin: General: Skin is warm and dry. Capillary Refill: Capillary refill takes less than 2 seconds. Findings: Wound present. No bruising, erythema or rash. Neurological: Mental Status: He is alert and oriented to person, place, and time. Psychiatric: Mood and Affect: Mood normal. Behavior: Behavior normal. Wound Assessment: Wound 04/19/24 1 Traumatic Leg Right;Anterior (Active) Wound Image 07/19/241349 Site Assessment Hypergranulation;Red 07/19/241349 Daya-wound Assessment Blanchable erythema;[place] 07/19/241349 Wound Length (cm) 0.6 cm 07/19/241349 Wound Width (cm) 0.4 cm 07/19/241349 Wound Surface Area (cm^2) 0.24 cm^2 07/19/241349 Wound Depth (cm) 0.1 cm 07/19/241349 Wound Volume (cm^3) 0.024 cm^3 07/19/241349 Change in Wound Size % 98.48 07/19/241349 Drainage Description Serosanguineous 07/19/241349 Drainage Amount Scant 07/19/241349 Treatments Cleansed with;Soak with;Vashe/Hypochlorous Acid 07/19/241349 Debridement Performed? N 07/19/241349 Dressing Type Other (Comment);Dry Dressing 07/19/241349 Dressing Changed New 07/19/241349 Dressing Status Clean;Dry;Intact 07/19/241349 Wound Bed Granulation (%) 100% 07/19/241349 New wound with daya wound ecchymosis Assessment/Plan/Education: 1. Traumatic ulcer of right lower leg, limited to breakdown of skin (CMS-HCC) 2. Traumatic ulcer of left lower leg, limited to breakdown of skin (CMS-HCC) 3. Bilateral leg edema Wash mild soap and water Bacitracin ointment to wound bed Cover with band aid Single layer Tubigrip, bilateral Change every day Avoid prolonged leg dependency. Wash legs and feet every day, apply moisturizing lotion at night, avoid lotion between the toes. Raise feet above the level of the heart 10-15 min several times daily. Follow a low sodium diet. Wear compression stockings as prescribed. Calf pump exercises daily. Patient instructed in Other: Traumatic wounds care to right and leg. Patient verbalize understanding of treatment regimen and the importance of adherence. Patient verbalized understanding. We will continue to follow closely to avoid any complications or infection. Our short term goal is wound compliance. Our mcc goal is wound closure. The patient was [...] verbalized understanding. Follow up wound clinic in 2 weeks. Instructed to contact wound clinic/PCP or ER should symptoms worsen. Total time spent was 19 minutes: Preparing to see the patient (e.g., review of tests) Obtaining and/or reviewing separately obtained history Performing a medically appropriate examination and/or evaluation Counseling and educating the patient/family/caregiver Ordering medications, tests, or procedures Documenting clinical information in the electronic or other health record - FARHAN GARCÍA 07/19/24 2:05 PM Lexi Goldman APRN, [place], [place], CHERELLE [facility]:[phone] FARHAN García 04/26/24 1447 FARHAN García 05/03/24 1514 FARHAN García 05/17/24 1450 FARHAN García 06/07/24 1439 FARHAN García 06/21/24 1428 FARHAN García 07/05/24 1434 FARHAN García 07/19/24 1410 documented in this encounter [facility] 07-19-2024 Instructions Apple Lam RN - 07/19/2024 1:20 PM EST 05/17/24: wound care supplies will be ordered through a company called [employer].. They will be sent to your house. Wound Management Treatment Plan Wound Location(s): Right anterior leg, left anterior lower leg HOW TO CARE FOR YOUR WOUND The following should be performed Every day and as needed. STEP 1: Cleanse wound with soap and water then pat dry Apply antibacterial ointment to wound beds to right and left lower legs Cover with band aide Change daily STEP 2: Secure dressings with Tubi/Medigrip from base of toes to bend of knee ACTIVITY: Avoid direct pressure to wound(s) at all times NUTRITION: High protein diet SKIN CARE: Moisturize all dry and intact skin SWELLING CONTROL: Elevate legs whenever sitting to level of heart/hips or higher. Copper compression socks on [employer] ITEMS TO FOLLOW UP ON: Length Width Depth Wound drainage Type Description small Sanguinous bloody documented in this encounter [facility] 07-10-2024 History of Present illness Narrative Images from the original note were not included. Physical Therapy Evaluation Visit Patient Name: Jason Bartholomew Today's Date: 07/10/2024 Encounter Diagnoses Name Primary? Chronic pain of both shoulders Yes Visit number: 1 Timed Code Treatment Minutes: 40 minutes Total Treatment Time: 50 minutes Time In: 1430 Time Out: 1523 History: Pt states all of the sudden he noticed he wasn't raising his shoulders too high. Has a history of broke neck, 4-5 years ago. Now having trouble reaching up into cupboards. Left shoulder is more painful but can reach higher with that arm. States was given steroids which has helped with pain. Has a history of bilateral RCR. Also states he know he has arthritis in bilateral shoulders. Has had to sleep in recliner now because he gets significant pain when rolling onto either shoulder. Precautions: PACEMAKER Subjective: bilateral shoulders, left greater than right Pain: 10/10 Objective: PT Evaluation (07/10/2024) Right SHOULDER AROM: 32 degrees flexion, 38 degrees abduction, 20 degrees ER PROM: 138 degrees flexion, 114 degrees abduction, 65 degrees ER Strength: flexion 4-/5, abduction 3+/5, ER 2/5, IR 4/5; supraspinatus 3-/5 Special Test: difficulty obtaining testing positions Left SHOULDER AROM: 68 degrees flexion, 70 degrees abduction, 38 degrees ER PROM: 138 degrees flexion, 128 degrees abduction, 66 degrees ER Strength: flexion 4-/5, abduction 4-/5, ER 3-/5, IR 4+/5; supraspinatus 3-/5 Special Test: difficulty obtaining testing positions Treatment: Education: HEP education with demonstration, Educated on Eval Findings and POC Manual Therapy: Passive ROM, Joint mobilization, Soft Tissue Mobilization, Myofascial Release, Muscle Energy Technique, Neural Mobilization, Myofascial Cupping, Dry Needling, IASTM, and Scar mobilization as needed. Therapeutic Exercise: (14 minutes) Strength, Endurance, Flexibility, ROM, HEP, Neural Mobilization, Power, and Core Stability as needed. Pt performed and instructed in home program this date; written instructions and pictures issued with good pt understanding. Therapeutic Activity: Exercises to improve dynamic activities, functional tasks, functional mobility to return to prior activity level as needed. Neuromuscular re-education: Balance Training, Muscle Facilitation, Dynamic Stability, Core Stabilization, and Blood Flow Restriction Training (BFRT) as needed. Modalities: Heat and/or Ice. HP to bilateral shoulders in sitting at end of treatment Assessment: Pt is 79 y/o male with complaints of bilateral shoulder pain and weakness. Pt presents with significantly limited right shoulder AROM and decrease strength. Question possible right RC tear. Limited strength left shoulder due to pain. Pt will benefit from further PT. Outcome Measure: Upper Extremity Functional Index (UEFI): 37/80 Rehab Diagnosis: bilateral shoulder pain and weakness; limited shoulder ROM and mobility bilateral Short Term Goal: To be met in 2 weeks Goal 1: Pt to be instructed in home exercise program. Half-Way Goals: To be met in 10 weeks Goal 1: Pt to report independence and compliance with home program. Goal 2: Pt to achieve 90 degrees of right shoulder flexion to assist with overhead reaching. Goal 3: Pt to achieve 90 degrees of right shoulder abduction to assist with grooming hair. Goal 4: Pt to achieve 4-/5 strength right shoulder in all planes to assist with functional tasks and lifting. Goal 5: Pt to achieve 130 degrees of left shoulder flexion to assist with overhead reaching. Goal 6: Pt to achieve 120 degrees of left shoulder abduction to assist with grooming hair. Goal 7: Pt to achieve 4/5 strength left shoulder in all planes to assist with functional tasks and lifting. Goal 8: Pt to score no less than 50/80 on UEFI indicating improved QOL. Pt will benefit from skilled PT for 2x/week from 07/10/2024 to 09/18/2024 to address the above impairments. I hereby deem this POC medically necessary. Please sign below. Date: documented in this encounter [facility] 07-08-2024 History of Present illness Narrative Images from the original note were not included. Subjective Patient ID: Jason Bartholomew is a 79 y.o. male. LT shoulder ~ 3 weeks. Pt started to fall and caught himself, pain ever since. Loss of ROM. Prior RCR bilateral shoulders. He notes his shoulders were bothering him even before the fall. He notes he jerked really hard when he was about to fall but did not fall or hit anything. Pain lateral and posterior. Taking TYL prn. Used to use a cream in the past. Admits N/T since neck sx. Taking Gabapentin. Denies swelling or bruising. Wakes at HS, unable to lay on sides- sleeping in recliner. Intermittent cracking. Hx of physical therapy in the past. [place]: PCP 07/04/24, XR NOMS 07/08/24, TYL Pt's has Alzheimer's, has been having to do a lot. RT handed. States he has a bruise over RT bicep. Denies pain. Objective Right Shoulder Exam Range of Motion Active abduction: 90 Muscle Strength Abduction: 4-/5 Left Shoulder Exam Range of Motion Active abduction: 90 Muscle Strength Abduction: 4-/5 Tests Johnson test: positive Drop arm: negative Shoulder Musculoskeletal Exam Palpation Left Crepitus: no crepitus Tenderness: present Anterior shoulder: moderate Trapezius: mild Range of Motion Right Active forward elevation: 90. Shoulder active abduction: 90. Left Active ROM: pain. Active forward elevation: 90. Shoulder active abduction: 90. Strength Right Abduction: 4-/5. Left Abduction: 4-/5. Special Tests Left Rotator Cuff Signs Johnson test: positive Drop arm test: negative Biceps/paul Signs Speed's test: positive AC Joint Signs Active horizontal adduction pain: positive XR shoulder 2+ views left Imaging Result: AP, and scapular Y of left shoulder show humeral head to be well centered in the glenoid fossa without evidence of fracture or dislocation or degeneration. Metallic rotator cuff anchors appear without complication to the proximal humerus. The acromioclavicular joint was on remarkable. Cardiac device noted. Lung harrington visualized on today's x-ray showed excellent lung markings. Impression no acute bony process left shoulder. I reviewed the PCP note from 07/04/24, referred to ortho and P.T., suggested to take TYL. Assessment/Plan Encounter Diagnoses: ICD-10-CM 1. Left shoulder pain, unspecified chronicity M25.512 XR shoulder 2+ views left 2. Chronic pain of both shoulders M25.511 Ambulatory referral to Orthopaedic Surgery G89.29 M25.512 3. Impingement of left shoulder M25.812 methylPREDNISolone (Medrol Dospak) 4 MG tablets 4. Glenohumeral arthritis, left M19.012 will try MDP, take as directed, no nsaids while taking MDP until 24 hrs after the last dose of MDP, may increase BP/HR f/U in 3 weeks, continue with therapy Depending on how he is doing may recommend a CT arthrogram documented in this encounter [facility] 07-05-2024 History of Present illness Narrative Images from the original note were not included. Wound Care Progress Note Patient: Jason Bartholomew Date of : 1945 Chief Complaint: Traumatic right lower leg wound, follow up Subjective/HPI: Jason is a 79 y.o. male who present to [facility] for evaluation of 1 ulcer(s) on the right lateral Lower leg. Patient established with wound clinic 04/19/2024. Current daily wound care includes: Alginate covered with dry gauze, changed daily by patient's daughter. Patient presented to the ER 03/23/2024 for [...] results and radiographic examination. Measurable wound changes: Decrease wound measurement, 100% granulation 0.4 cm increase right lower leg calf circumference Patient accompanied by: Self, arrives in wheelchair, ambulates with the use of a cane Nutritional screen shows patient does not take in three servings of protein per day. Patient does deny fever, chills, sweats or other symptoms of infection. Prescribed antibiotics: Completed as prescribed Today's reported Blood sugar: 94 Lab Results Component Value Date HGBA1C 7.2 (H) 08/31/2017 HGBA1C 6.8 (H) 08/11/2015 Tobacco:denied - never a smoker Contributing comorbid conditions: Atrial fibrillation treated with Xarelto Patient Active Problem List Diagnosis Chronic rhinitis Hematospermia Traumatic ulcer of right lower leg with fat layer exposed ([facility]) Aortic valve stenosis Anxiety Arthritis of right knee Cedeño's palsy Benign essential hypertension Bilateral leg edema BPH without urinary obstruction Carcinoma of prostate ([facility]) Carotid atherosclerosis Carpal tunnel syndrome, left upper limb Cellulitis of right lower leg Cervical myelopathy ([facility]) CHF (congestive heart failure), NYHA class III, acute on chronic, diastolic ([facility]) Chronic heart failure with preserved ejection fraction (HFpEF) ([facility]) Complete heart block ([facility]) Degenerative cervical spinal stenosis Degenerative lumbar spinal stenosis Diabetic polyneuropathy ([facility]) DVT of lower extremity, bilateral ([facility]) Dyslipidemia Dysphagia Gastroesophageal reflux disease History of colon polyps Incomplete 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 ([facility] [place]) Laceration without foreign body, left lower leg, initial encounter Leukocytosis Paroxysmal atrial fibrillation ([facility]) Peripheral vascular disease, unspecified ([facility]) Type 2 diabetes mellitus with hyperglycemia, without long-term current use of insulin ([facility]) Stage 3 chronic kidney disease ([facility] [place]) CKD stage 3b, GFR 30-44 ml/min ([facility]) Neurologic gait dysfunction Unsteady gait Orthostatic hypotension Chronic pain of both shoulders Past Medical History: Diagnosis Date Blood in semen Cancer ([facility]) SKIN, PROSTATE Diabetes mellitus ([facility]) GERD (gastroesophageal reflux disease) Hyperlipidemia Hypertension Hypertensive heart disease Past Surgical History: Procedure Laterality Date APPENDECTOMY CAROTID ARTERY ANGIOPLASTY Left 07/03/2010 CERVICAL SPINE SURGERY c clamp in neck RELEASE TRIGGER FINGER Left 09/08/2021 Performed by Quan Chong DO at [facility] ROTATOR CUFF REPAIR Bilateral Current Outpatient [...] Allergies Allergen Reactions Sulfa (Sulfonamide Antibiotics) Social Drivers of Health Food Insecurity: No Food Insecurity (07/05/2024) Hunger Screening Food Insecurity - Worry: Never True Food Insecurity - Inability: Never True Housing Instability: Not on file Transportation Needs: Not on file Utility Difficulties: Not on file Interpersonal Safety: Unknown (08/24/2023) Received from [facility] Safety & Environment Fear of Current or Ex-Partner: Not on file Emotionally Abused: Not on file Physically Abused: Not on file Sexually Abused: Not on file Physically or Sexually Abused: Not on file Financial Resource Strain: Not on file Childcare: Unknown (12/12/2018) Childcare Childcare: Unknown Recent Concern: Childcare - High Risk (09/26/2018) Childcare Childcare: Unknown Employment: Unknown (12/12/2018) Employment Employment: Unknown Recent Concern: Employment - High Risk (09/26/2018) Employment Employment: Unknown Purpose - Life: Unknown (08/13/2020) Purpose - Life Purpose and direction in life: Unknown Depression: Not at risk (03/28/2024) Received from [facility] PHQ-2 Patient Health Questionnaire-2 Score: 0 Alcohol Use: Not on file Tobacco Use: Medium Risk (07/04/2024) Received from [facility] Patient History Smoking Tobacco Use: Former Smokeless Tobacco Use: Unknown Passive Exposure: Past Social Connections: Not on file Physical Activity: Not on file Stress: Not on file The following portions of the patient's history were reviewed and updated as appropriate: allergies, current medications, past family history, past medical history, past social history, past surgical history, problem list, and medication reconciliation was completed including current medication and post discharge medication. PAIN: denies Pain Scale 0/10: 0 Review of Systems Constitutional: Negative for activity [...] concentration. The patient is nervous/anxious. Objective: Vitals: 07/05/24 1351 BP: 125/65 Pulse: 77 Resp: 16 Temp: 36.3 C (97.3 F) Physical Exam Vitals reviewed. Constitutional: General: He is not in acute distress. Appearance: He is not ill-appearing or diaphoretic. Cardiovascular: Rate and Rhythm: Normal rate. Pulses: Dorsalis pedis pulses are 2+ on the right side. Posterior tibial pulses are 2+ on the right side. Comments: Right pedal pulses strongly palpable Right leg with 1+ soft pitting daya wound edema Right leg warm, diminished hair growth [...] 1 Traumatic Leg Right;Anterior (Active) Wound Image 07/05/241401 Site Assessment Hypergranulation;Red 07/05/241401 Daya-wound Assessment Blanchable erythema;[place] 07/05/241401 Wound Length (cm) 1.6 cm 07/05/241401 Wound Width (cm) 1.2 cm 07/05/241401 Wound Surface Area (cm^2) 1.92 cm^2 07/05/242 Wound Depth (cm) 0.1 cm 07/05/241401 Wound Volume (cm^3) 0.192 cm^3 07/05/241401 Change in Wound Size % 87.81 07/05/24 140 Drainage Description Serosanguineous 07/05/241401 Drainage Amount Small 07/05/241401 Treatments Cleansed with;Soak with;Vashe/Hypochlorous Acid 07/05/241401 Debridement Performed? N 07/05/241401 Dressing Type Alginate;Silicone dressing;Foam;Other (Comment) 07/05/241401 Dressing Changed Changed 07/05/241401 Dressing Status Clean;Dry;Intact 07/05/241401 Wound Bed Granulation (%) 100% 07/05/241401 Assessment/Plan/Education: 1. Traumatic ulcer of right lower leg with fat layer exposed (CMS-HCC) (Primary) Wash mild soap and water Calcium alginate, cut to fit wound bed Cover with foam or other dressing of comfort TRIAD to daya wound if needed for comfort Single layer Tubigrip Change every other day Patient instructed in Other: Traumatic wounds care to right and leg. Patient verbalize understanding of treatment regimen and the importance of adherence. Patient verbalized understanding. We will continue to follow closely to avoid any complications or infection. Our short term goal is wound compliance. 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 The patient was [...] verbalized understanding. Follow up wound clinic in 2 weeks. Instructed to contact wound clinic/PCP or ER should symptoms worsen. Total time spent was 19 minutes: Preparing to see the patient (e.g., review of tests) Obtaining and/or reviewing separately obtained history Performing a medically appropriate examination and/or evaluation Counseling and educating the patient/family/caregiver Ordering medications, tests, or procedures Documenting clinical information in the electronic or other health record - FARHAN GARCÍA 07/05/24 2:32 PM Lexi Goldman APRN, [place], [place], CHERELLE [facility]:[phone] FARHAN García 04/26/24 1447 FARHAN García 05/03/24 1514 FARHAN García 05/17/24 1450 FARHAN García 06/07/24 1439 FARHAN García 06/21/24 1428 FARHAN García 07/05/24 1434 documented in this encounter [facility] 07-05-2024 Instructions Apple Lam RN - 07/05/2024 1:40 PM EST 05/17/24: wound care supplies will be ordered through a company called [email or web address].. They will be sent to your house. Wound Management Treatment Plan Wound Location(s): Right anterior leg HOW TO CARE FOR YOUR WOUND The following should be performed Every other day and as needed. STEP 1: Cleanse wound with soap and water then pat dry STEP 2: Apply calcium alginate to wound bed STEP 4: Apply triad around outside of wound then place foam over wound STEP 5: Wrap with roll gauze and tape (no tape on skin) or may use band aide. STEP 6: Secure dressings with Tubi/Medigrip ACTIVITY: Avoid direct pressure to wound(s) at all times NUTRITION: High protein diet SKIN CARE: Moisturize all dry and intact skin SWELLING CONTROL: Elevate legs whenever sitting to level of heart/hips or higher. Copper compression socks on [employer] ITEMS TO FOLLOW UP ON: Length Width Depth Wound 04/19/24 1 Traumatic Leg Right;Anterior-Wound Length (cm): 1.6 cm Wound 04/19/24 1 Traumatic Leg Right;Anterior-Wound Width (cm): 1.2 cm Wound 04/19/24 1 Traumatic Leg Right;Anterior-Wound Depth (cm): 0.1 cm Wound drainage Type Description small Sanguinous bloody 2 documented in this encounter [facility] 07-04-2024 History of Present illness Narrative Associated Problem(s): CKD stage 3b, GFR 30-44 ml/min ([facility]) Repeat labs next visit. Associated Problem(s): Type 2 diabetes mellitus with hyperglycemia, without long-term current use of insulin ([facility]) Not checking BS but last A1C 5.9. Stick to ADA diet and limit carbs. Associated Problem(s): Traumatic ulcer of right lower leg with fat layer exposed (CMS/HCC) Healing well and follow with wound care. Associated Problem(s): Peripheral vascular disease, unspecified (CMS/HCC) Symptoms stable and continue medication. Associated Problem(s): Paroxysmal atrial fibrillation (CMS/HCC) In NSR and monitor. Follow up with cardiology as scheduled. Associated Problem(s): Essential hypertension, benign (CMS/HCC) BP controlled and monitor PRN. Associated Problem(s): Diabetic polyneuropathy (CMS/HCC) Pain stable and continue neurontin. Associated Problem(s): Chronic pain of both shoulders Severe pain and decreased ROM of arms. Prior bilateral rotator cuff surgery years ago. Refer to ortho and start PT. Use tylenol PRN. Associated Problem(s): Chronic heart failure with preserved ejection fraction (HFpEF) (CMS/HCC) Edema stable and continue medication. Elevate legs PRN. Follow up with cardiology as scheduled. Images from the original note were not included. Subjective Patient ID: Jason Bartholomew is a 79 y.o. male who presents for Follow-up and Shoulder Pain (Both shoulders). Follow up DM, HTN, neuropathy, CHF, and afib. C/o bilateral shoulder pain for months but worse over past few weeks. Started to fall and caught self. Severe pain in both shoulders since. Decreased ROM and not able to extend or forward flex past 90 degrees. Severe pain to lift or raise arm. Pain limiting use of arms. Not checking BS away from office but last A1C 5.9. Tries to eat well and stick to [...] pain or discomfort in legs with walking. Shoulder Pain Review of Systems Constitutional: Negative for fatigue. [...] Items Addressed This Visit Essential hypertension, benign (CMS/HCC) BP controlled and monitor PRN. Peripheral vascular disease, unspecified (CMS/HCC) Symptoms stable and continue medication. Type 2 diabetes mellitus with hyperglycemia, without long-term current use of insulin (CMS/HCC) - Primary Not checking BS but last A1C 5.9. Stick to ADA diet and limit carbs. Diabetic polyneuropathy (CMS/HCC) Pain stable and continue neurontin. Chronic heart failure with preserved ejection fraction (HFpEF) (CMS/HCC) Edema stable and continue medication. Elevate legs PRN. Follow up with cardiology as scheduled. Paroxysmal atrial fibrillation (CMS/HCC) In NSR and monitor. Follow up with cardiology as scheduled. Traumatic ulcer of right lower leg with fat layer exposed (CMS/HCC) Healing well and follow with wound care. Chronic pain of both shoulders Severe pain and decreased ROM of arms. Prior bilateral rotator cuff surgery years ago. Refer to ortho and start PT. Use tylenol PRN. Relevant Orders Ambulatory referral to Physical Therapy Ambulatory referral to Orthopaedic Surgery documented in this encounter [facility] 06-21-2024 History of Present illness Narrative Images from the original note were not included. Wound Care Progress Note Patient: Jason Bartholomew Date of : 1945 Chief Complaint: Traumatic right lower leg wound, follow up Subjective/HPI: Jason is a 78 y.o. male who present to [facility] for evaluation of 1 ulcer(s) on the right lateral Lower leg. Patient established with wound clinic 04/19/2024. Current daily wound care includes: Alginate covered with dry gauze, changed daily by patient's daughter. Patient presented to the ER 03/23/2024 for [...] results and radiographic examination. Measurable wound changes: Decrease wound measurement, 100% granulation 0.2 cm decrease right lower leg calf circumference Patient accompanied by: Self, arrives in wheelchair, ambulates with the use of a cane Nutritional screen shows patient does not take in three servings of protein per day. Patient does deny fever, chills, sweats or other symptoms of infection. Prescribed antibiotics: Completed as prescribed Today's reported Blood sugar: 98 Lab Results Component Value Date HGBA1C 7.2 (H) 08/31/2017 HGBA1C 6.8 (H) 08/11/2015 Tobacco:denied - never a smoker Contributing comorbid conditions: Atrial fibrillation treated with Xarelto Patient Active Problem List Diagnosis Chronic rhinitis Hematospermia Traumatic ulcer of right lower leg with fat layer exposed ([facility]) Aortic valve stenosis Anxiety Arthritis of right knee Cedeño's palsy Benign essential hypertension Bilateral leg edema BPH without urinary obstruction Carcinoma of prostate ([facility]) Carotid atherosclerosis Carpal tunnel syndrome, left upper limb Cellulitis of right lower leg Cervical myelopathy ([facility]) CHF (congestive heart failure), NYHA class III, acute on chronic, diastolic ([facility]) Chronic heart failure with preserved ejection fraction (HFpEF) ([facility]) Complete heart block ([facility]) Degenerative cervical spinal stenosis Degenerative lumbar spinal stenosis Diabetic polyneuropathy ([facility]) DVT of lower extremity, bilateral ([facility]) Dyslipidemia Dysphagia Gastroesophageal reflux disease History of colon polyps Incomplete 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 ([facility]) Laceration without foreign body, left lower leg, initial encounter Leukocytosis Paroxysmal atrial fibrillation ([facility]) Peripheral vascular disease, unspecified ([facility]) Type 2 diabetes mellitus with hyperglycemia, without long-term current use of insulin ([facility]) Stage 3 chronic kidney disease ([facility]) CKD stage 3b, GFR 30-44 ml/min ([facility]) Neurologic gait dysfunction Unsteady gait Orthostatic hypotension Past Medical History: Diagnosis Date Blood in semen Cancer ([facility]) SKIN, PROSTATE Diabetes mellitus ([facility]) GERD (gastroesophageal reflux disease) Hyperlipidemia Hypertension Hypertensive heart disease Past Surgical History: Procedure Laterality Date APPENDECTOMY CAROTID ARTERY ANGIOPLASTY Left 07/03/2010 CERVICAL SPINE SURGERY c clamp in neck RELEASE TRIGGER FINGER Left 09/08/2021 Performed by Quan Chong DO at [facility] ROT[facility] CUFF REPAIR Bilateral Current Outpatient [...] current medication and post discharge medication. PAIN: denies Pain Scale 0/10: 0 Review of Systems Constitutional: Negative for activity [...] concentration. The patient is nervous/anxious. Objective: Vitals: 06/21/24 135 BP: 153/72 Pulse: 69 Resp: 16 Temp: 37.2 C (98.9 F) Physical Exam Vitals reviewed. Constitutional: General: He is not in acute distress. Appearance: He is not ill-appearing or diaphoretic. Cardiovascular: Rate and Rhythm: Normal rate. Pulses: Dorsalis pedis pulses are 2+ on the right side. Posterior tibial pulses are 2+ on the right side. Comments: Right pedal pulses strongly palpable Right leg with 1+ soft pitting daya wound edema Right leg warm, diminished hair growth [...] 1 Traumatic Leg Right;Anterior (Active) Wound Image 06/21/241357 Site Assessment Hypergranulation;Moist 06/21/241357 Daya-wound Assessment Blanchable erythema 06/21/241357 Wound Length (cm) 2.3 cm 06/21/241357 Wound Width (cm) 2 cm 06/21/241357 Wound Surface Area (cm^2) 4.6 cm^2 06/21/241357 Change in Wound Size % 70.79 06/21/24 135 Drainage Description Sanguineous 06/21/241357 Drainage Amount Moderate 06/21/241357 Treatments Cleansed with;Wound cleanser;Soak with;Vashe/Hypochlorous Acid 06/21/241357 Debridement Performed? N 06/21/24 141 Dressing Type Alginate;Foam 06/21/241410 Dressing Changed Changed 06/21/241410 Dressing Status Clean;Dry;Intact 06/21/241410 Wound Bed Granulation (%) 100% 06/21/241357 Assessment/Plan/Education: 1. Traumatic ulcer of right lower leg with fat layer exposed (CMS-HCC) (Primary) Wash mild soap and water Calcium alginate, cut to fit wound bed Cover with foam or other dressing of comfort TRIAD to daya wound if needed for comfort Single layer Tubigrip Change every other day Patient instructed in Other: Traumatic wounds care to right and leg. Patient verbalize understanding of treatment regimen and the importance of adherence. Patient verbalized understanding. We will continue to follow closely to avoid any complications or infection. Our short term goal is wound compliance. Our mcc goal is wound closure. The patient was [...] verbalized understanding. Follow up wound clinic in 3 weeks. Instructed to contact wound clinic/PCP or ER should symptoms worsen. Total time spent was 19 minutes: Preparing to see the patient (e.g., review of tests) Obtaining and/or reviewing separately obtained history Performing a medically appropriate examination and/or evaluation Counseling and educating the patient/family/caregiver Ordering medications, tests, or procedures Documenting clinical information in the electronic or other health record - FARHAN GARCÍA 06/21/24 2:22 PM Lexi Goldman APRN, SHINE, CWS, CHERELLE [facility]:[phone] FARHAN García 04/26/24 1447 FARHAN García 05/03/24 1514 FARHAN García 05/17/24 1450 FARHAN García 06/07/24 1439 FARHAN García 06/21/24 1428 documented in this encounter [facility] 06-21-2024 Instructions Amita Stevens RN - 06/21/2024 1:40 PM EST 05/17/24: wound care supplies will be ordered through a company called [employer].. They will be sent to your house. Wound Management Treatment Plan Wound Location(s): Right anterior leg HOW TO CARE FOR YOUR WOUND The following should be performed Every other day and as needed. STEP 1: Cleanse wound with soap and water then pat dry STEP 2: Apply calcium alginate to wound bed STEP 4: Apply triad around outside of wound then place foam over wound STEP 5: Wrap with roll gauze and tape (no tape on skin) STEP 6: Secure dressings with Tubi/Medigrip ACTIVITY: Avoid direct pressure to wound(s) at all times NUTRITION: High protein diet SKIN CARE: Moisturize all dry and intact skin SWELLING CONTROL: Elevate legs whenever sitting to level of heart/hips or higher. Copper compression socks on [employer] ITEMS TO FOLLOW UP ON: Length Width Depth Wound 04/19/24 1 Traumatic Leg Right;Anterior-Wound Length (cm): 2.3 cm Wound 04/19/24 1 Traumatic Leg Right;Anterior-Wound Width (cm): 2 cm Wound drainage Type Description moderate Sanguinous bloody 2 documented in this encounter [facility] 06-07-2024 History of Present illness Narrative Images from the original note were not included. Wound Care Progress Note Patient: Jason Bartholomew Date of : 1945 Chief Complaint: Traumatic right lower leg wound, follow up Subjective/HPI: Jason is a 78 y.o. male who present to [facility] for evaluation of 1 ulcer(s) on the right lateral Lower leg. Patient established with wound clinic 04/19/2024. Current daily wound care includes: Alginate covered with dry gauze, changed daily by patient's daughter. Patient presented to the ER 03/23/2024 for [...] results and radiographic examination. Measurable wound changes: Increased wound measurement, 100% granulation 0.9 cm increase right lower leg calf circumference Patient accompanied by: Self, arrives in wheelchair, ambulates with the use of a cane Nutritional screen shows patient does not take in three servings of protein per day. Patient does deny fever, chills, sweats or other symptoms of infection. Prescribed antibiotics: Completed as prescribed Today's reported Blood sugar: not recorded today Lab Results Component Value Date HGBA1C 7.2 (H) 08/31/2017 HGBA1C 6.8 (H) 08/11/2015 Tobacco:denied - never a smoker Contributing comorbid conditions: Atrial fibrillation treated with Xarelto Patient Active Problem List Diagnosis Chronic rhinitis Hematospermia Traumatic ulcer of right lower leg with fat layer exposed ([facility]) Aortic valve stenosis Anxiety Arthritis of right knee Cedeño's palsy Benign essential hypertension Bilateral leg edema BPH without urinary obstruction Carcinoma of prostate ([facility]) Carotid atherosclerosis Carpal tunnel syndrome, left upper limb Cellulitis of right lower leg Cervical myelopathy ([facility]) CHF (congestive heart failure), NYHA class III, acute on chronic, diastolic ([facility]) Chronic heart failure with preserved ejection fraction (HFpEF) ([facility]) Complete heart block ([facility]) Degenerative cervical spinal stenosis Degenerative lumbar spinal stenosis Diabetic polyneuropathy ([facility]) DVT of lower extremity, bilateral ([facility]) Dyslipidemia Dysphagia Gastroesophageal reflux disease History of colon polyps Incomplete 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 ([facility]) Laceration without foreign body, left lower leg, initial encounter Leukocytosis Paroxysmal atrial fibrillation ([facility]) Peripheral vascular disease, unspecified ([facility]) Type 2 diabetes mellitus with hyperglycemia, without long-term current use of insulin ([facility]) Stage 3 chronic kidney disease ([facility]) CKD stage 3b, GFR 30-44 ml/min ([facility]) Neurologic gait dysfunction Unsteady gait Orthostatic hypotension Past Medical History: Diagnosis Date Blood in semen Cancer ([facility]) SKIN, PROSTATE Diabetes mellitus ([facility]) GERD (gastroesophageal reflux disease) Hyperlipidemia Hypertension Hypertensive heart disease Past Surgical History: Procedure Laterality Date APPENDECTOMY CAROTID ARTERY ANGIOPLASTY Left 07/03/2010 CERVICAL SPINE SURGERY c clamp in neck RELEASE TRIGGER FINGER Left 09/08/2021 Performed by Quan Chong DO at [facility] CUFF REPAIR Bilateral Current Outpatient [...] current medication and post discharge medication. PAIN: denies Pain Scale 0/10: 0 Review of Systems Constitutional: Negative for activity [...] concentration. The patient is nervous/anxious. Objective: Vitals: 06/07/24 1344 BP: 116/50 Pulse: 90 Resp: 16 Temp: 36.7 C (98 F) Physical Exam Vitals reviewed. Constitutional: General: He is not in acute distress. Appearance: He is not ill-appearing or diaphoretic. Cardiovascular: Rate and Rhythm: Normal rate. Pulses: Dorsalis pedis pulses are 2+ on the right side. Posterior tibial pulses are 2+ on the right side. Comments: Right pedal pulses strongly palpable Right leg with 1+ soft pitting daya wound edema Right leg warm, diminished hair growth [...] 1 Traumatic Leg Right;Anterior (Active) Wound Image 06/07/24 135 Site Assessment Red;Yellow 06/07/241351 Daya-wound Assessment Blanchable erythema 06/07/24 135 Wound Length (cm) 3.9 cm 06/07/24 135 Wound Width (cm) 3.1 cm 06/07/24 135 Wound Surface Area (cm^2) 12.09 cm^2 06/07/24 135 Wound Depth (cm) 0.2 cm 06/07/241351 Wound Volume (cm^3) 2.418 cm^3 06/07/241351 Change in Wound Size % 23.24 06/07/24 135 Drainage Description Serosanguineous 06/07/241351 Drainage Amount Small 06/07/241351 Treatments Cleansed with;Wound cleanser;Soak with;Vashe/Hypochlorous Acid 06/07/241351 Debridement Performed? N 06/07/241351 Wound Bed Granulation (%) 75% to 100% 06/07/241351 Wound Bed Slough (%) < 25% 06/07/241351 Assessment/Plan/Education: 1. Traumatic ulcer of right lower leg with fat layer exposed (CMS-HCC) (Primary) 2. Hematoma of right lower leg Wash mild soap and water Calcium alginate, cut to fit wound bed Cover with foam or other dressing of comfort TRIAD to daya wound if needed for comfort Single layer Tubigrip Patient instructed in Other: Traumatic wounds care to right and leg. Patient verbalize understanding of treatment regimen and the importance of adherence. Patient verbalized understanding. We will continue to follow closely to avoid any complications or infection. Our short term goal is wound compliance. 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 The patient was [...] verbalized understanding. Follow up wound clinic in 2 weeks. Instructed to contact wound clinic/PCP or ER should symptoms worsen. Total time spent was 19 minutes: Preparing to see the patient (e.g., review of tests) Obtaining and/or reviewing separately obtained history Performing a medically appropriate examination and/or evaluation Counseling and educating the patient/family/caregiver Ordering medications, tests, or procedures Documenting clinical information in the electronic or other health record - LEXI GOLDMAN APRN-SHINE 06/07/24 2:01 PM Lexi Goldman APRN, SHINE, CWS, CHERELLE [facility]:[phone] Lexi Goldman, SPECIAL CLIENT BUS DRIVER-COIL CUTTER 04/26/24 1447 Lexi Goldman, SPECIAL CLIENT BUS DRIVER-COIL CUTTER 05/03/24 1514 Lexi Goldman, SPECIAL CLIENT BUS DRIVER-COIL CUTTER 05/17/24 1450 Lexi Goldman, SPECIAL CLIENT BUS DRIVER-COIL CUTTER 06/07/24 1439 documented in this encounter [facility] 06-07-2024 Instructions Amita Setvens RN - 06/07/2024 1:40 PM EST 05/17/24: wound care supplies will be ordered through a company called [employer].. They will be sent to your house. Wound Management Treatment Plan Wound Location(s): Right anterior leg HOW TO CARE FOR YOUR WOUND The following should be performed daily and as needed. STEP 1: Cleanse wound with soap and water then pat dry STEP 2: Apply calcium alginate to wound bed STEP 4: Apply triad around outside of wound then place foam over wound STEP 5: Wrap with roll gauze and tape (no tape on skin) STEP 6: Secure dressings with Tubi/Medigrip ACTIVITY: Avoid direct pressure to wound(s) at all times NUTRITION: High protein diet SKIN CARE: Moisturize all dry and intact skin SWELLING CONTROL: Elevate legs whenever sitting to level of heart/hips or higher. Copper compression socks on [employer] ITEMS TO FOLLOW UP ON: Length Width Depth Wound 04/19/24 1 Traumatic Leg Right;Anterior-Wound Length (cm): 3.9 cm Wound 04/19/24 1 Traumatic Leg Right;Anterior-Wound Width (cm): 3.1 cm Wound 04/19/24 1 Traumatic Leg Right;Anterior-Wound Depth (cm): 0.2 cm Wound drainage Type Description moderate Sanguinous bloody 2 documented in this encounter [facility] 05-20-2024 Miscellaneous Notes [employer] Room Service Supervisor received voicemail on nurse line from [place] with [facility] wound care complete, stating that insurance requires there to be heavy drainage in order to supply the secondary dressing of foam. If there is not heavy drainage there will need to be a different secondary dressing ordered and a new order along with clinic notes be faxed over. If there is heavy drainage the order and notes will need to reflect this and be re-faxed. [employer] Room Service Supervisor routed this message to Lexi Goldman NP and [place] wound care staff to address the above request. documented in this encounter [facility] 05-20-2024 Telephone encounter Note [employer] Room Service Supervisor received voicemail on nurse line from Monique with [facility] wound care complete, stating that insurance requires there to be heavy drainage in order to supply the secondary dressing of foam. If there is not heavy drainage there will need to be a different secondary dressing ordered and a new order along with clinic notes be faxed over. If there is heavy drainage the order and notes will need to reflect this and be re-faxed. [employer] Room Service Supervisor routed this message to Lexi Goldman NP and [place] wound care staff to address the above request. [facility] 05-17-2024 History of Present illness Narrative Images from the original note were not included. Wound Care Progress Note Patient: Jason Bartholomew Date of : 1945 Chief Complaint: Traumatic right lower leg wound, follow up Subjective/HPI: Jason is a 78 y.o. male who present to [facility] for evaluation of 1 ulcer(s) on the right lateral Lower leg. Patient established with wound clinic 04/19/2024. Current daily wound care includes: Alginate covered with dry gauze, changes daily by patient's daughter. Patient presented to the ER 03/23/2024 for [...] examination. Measurable wound changes: Decreased wound measurement 2.6 cm increase right lower leg calf circumference Patient accompanied by: Self, arrives in wheelchair, ambulates with the use of a cane Nutritional screen shows patient does not take in three servings of protein per day. Patient does deny fever, chills, sweats or other symptoms of infection. Prescribed antibiotics: Completed as prescribed Today's reported Blood sugar: 96 Lab Results Component Value Date HGBA1C 7.2 (H) 08/31/2017 HGBA1C 6.8 (H) 08/11/2015 Tobacco:denied - never a smoker Contributing comorbid conditions: Atrial fibrillation treated with Xarelto Patient Active Problem List Diagnosis Chronic rhinitis Hematospermia Traumatic ulcer of right lower leg with fat layer exposed ([facility]) Aortic valve stenosis Anxiety Arthritis of right knee Cedeño's palsy Benign essential hypertension Bilateral leg edema BPH without urinary obstruction Carcinoma of prostate ([facility]) Carotid atherosclerosis Carpal tunnel syndrome, left upper limb Cellulitis of right lower leg Cervical myelopathy ([facility]) CHF (congestive heart failure), NYHA class III, acute on chronic, diastolic ([facility]) Chronic heart failure with preserved ejection fraction (HFpEF) ([facility]) Complete heart block ([facility]) Degenerative cervical spinal stenosis Degenerative lumbar spinal stenosis Diabetic polyneuropathy ([facility]) DVT of lower extremity, bilateral ([facility] Dyslipidemia Dysphagia Gastroesophageal reflux disease History of colon polyps Incomplete 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 ([facility]) Laceration without foreign body, left lower leg, initial encounter Leukocytosis Paroxysmal atrial fibrillation ([facility]) Peripheral vascular disease, unspecified ([facility]) Type 2 diabetes mellitus with hyperglycemia, without long-term current use of insulin ([facility]) Stage 3 chronic kidney disease ([facility]) CKD stage 3b, GFR 30-44 ml/min ([facility]) Neurologic gait dysfunction Unsteady gait Orthostatic hypotension Past Medical History: Diagnosis Date Blood in semen Cancer ([facility]) SKIN, PROSTATE Diabetes mellitus ([facility]) GERD (gastroesophageal reflux disease) Hyperlipidemia Hypertension Hypertensive heart disease Past Surgical History: Procedure Laterality Date APPENDECTOMY CAROTID ARTERY ANGIOPLASTY Left 07/03/2010 CERVICAL SPINE SURGERY c clamp in neck RELEASE TRIGGER FINGER Left 09/08/2021 Performed by Quan Chong DO at [facility] CUFF REPAIR Bilateral Current Outpatient [...] current medication and post discharge medication. PAIN: denies Pain Scale 0/10: 0 Review of Systems Constitutional: Negative for activity [...] concentration. The patient is nervous/anxious. Objective: Vitals: 05/17/24 1300 BP: 117/68 Pulse: 79 Resp: 16 Temp: 36.6 C (97.8 F) Physical Exam Vitals reviewed. Constitutional: General: He is not in acute distress. Appearance: He is not ill-appearing or diaphoretic. Cardiovascular: Rate and Rhythm: Normal rate. Pulses: Dorsalis pedis pulses are 2+ on the right side. Posterior tibial pulses are 2+ on the right side. Comments: Right pedal pulses strongly palpable Right leg with 1+ soft pitting edema Right leg warm, diminished [...] (Active) Wound Image Pre debridement Post debridement 05/17/24 1400 Site Assessment Red;Yellow;[place] 05/17/24 1400 Wound Length (cm) 3.7 cm 05/17/24 1430 Wound Width (cm) 3.2 cm 05/17/24 1430 Wound Surface Area (cm^2) 11.84 cm^2 05/17/24 1430 Wound Depth (cm) 0.3 cm 05/17/241429 Wound Volume (cm^3) 3.552 cm^3 05/17/24 1430 Change in Wound Size % 24.83 05/17/241429 Drainage Description Serosanguineous;Yellow 05/17/241399 Drainage Amount Moderate 05/17/24 1400 Debridement Performed? Y 05/17/24 143 Type of Debridement Selective 05/17/241429 Debridement Area (cm^2) 11.84 cm^2 05/17/241429 Wound Bed Granulation (%) 50% to 75% 05/17/241399 Wound Bed Slough (%) 25% to 50% 05/17/241399 Discussion: Debridement is the removal of foreign material and/or devitalized tissue until healthy tissue is exposed. Risks, benefits and alternatives were discussed with the patient. We discussed possible complications, including infection and bleeding. Written consent was obtained prior to the procedure. Timeout procedure completed. Goal of debridement includes: removal of devitalized tissue, decrease risk of infection, promote wound healing and prevent further complications. Procedure: Debridement/Procedure Level: Removal of devitalized tissue, nonviable tissue and/or infection. Selective Instrument Used: Vashe moist 4 X 4 gauze Anesthesia EMLA Bleeding: Small Bleeding Control: Pressure Added Pain Control: None Specimen Taken: None Total Surface Area of Debridement: 11.84 cm2 Patient tolerates procedure well Assessment/Plan/Education: 1. Traumatic ulcer of right lower leg with fat layer exposed (CMS-HCC) (Primary) 2. Hematoma of right lower leg Wash mild soap and water Calcium alginate, cut to fit wound bed Cover with foam or other dressing of comfort Wound is progressing, NPWT not necessary at this time. TRIAD to daya wound Patient instructed in Other: Traumatic wounds care to right and leg. Patient verbalize understanding of treatment regimen and the importance of adherence. Patient verbalized understanding. We will continue to follow closely to avoid any complications or infection. Our short term goal is wound compliance. 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 The patient was [...] verbalized understanding. Follow up wound clinic in 3 weeks. Instructed to contact wound clinic/PCP or ER should symptoms worsen. Total time spent was 20 minutes: Preparing to see the patient (e.g., review of tests) Obtaining and/or reviewing separately obtained history Performing a medically appropriate examination and/or evaluation Counseling and educating the patient/family/caregiver Ordering medications, tests, or procedures Documenting clinical information in the electronic or other health record - FARHAN GARCÍA 05/17/24 2:37 PM Lexi Goldman APRN, SHINE, CWS, CHERELLE [facility] [facility]:[phone] FARHAN García 04/26/24 1443 FARHAN García 05/03/24 0122 FARHAN García 05/17/24 1450 documented in this encounter [facility] 05-17-2024 Instructions Apple Lam RN - 05/17/2024 2:00 PM EST 05/17/24: wound care supplies will be ordered through a company called [employer].. They will be sent to your house. Wound Management Treatment Plan Wound Location(s): Right anterior leg HOW TO CARE FOR YOUR WOUND The following should be performed daily and as needed. STEP 1: Cleanse wound with soap and water then pat dry STEP 2: Apply calcium alginate to wound bed STEP 4: Apply triad around outside of wound then place foam over wound STEP 5: Wrap with roll gauze and tape (no tape on skin) STEP 6: Secure dressings with Tubi/Medigrip ACTIVITY: Avoid direct pressure to wound(s) at all times NUTRITION: High protein diet SKIN CARE: Moisturize all dry and intact skin SWELLING CONTROL: Elevate legs whenever sitting to level of heart/hips or higher. ITEMS TO FOLLOW UP ON: Length Width Depth Wound drainage Type Description moderate Sanguinous bloody documented in this encounter [facility] 05-07-2024 Miscellaneous Notes Call received from pt stating he will be running out of dressing supplies. [employer] Room Service Supervisor reviewed chart and supplies were ordered 04-19-24 from [facility]. Supplies can only be dispensed every 30 days, so unable to order additional supplies at this time. [employer] Room Service Supervisor offered for pt to berry picker machine operator some supplies at wound care, however scientific writer is at [facility] and pt is seen at [facility], which is closed today. [employer] Room Service Supervisor instructed pt to call [place] office in the am and scientific writer will forward this note to provider and case nurse. Pt verbalized understanding and appreciated assistance. documented in this encounter [facility] 05-07-2024 Telephone encounter Note Call received from pt stating he will be running out of dressing supplies. [employer] Room Service Supervisor reviewed chart and supplies were ordered 04-19-24 from [facility]. Supplies can only be dispensed every 30 days, so unable to order additional supplies at this time. [employer] Room Service Supervisor offered for pt to berry picker machine operator some supplies at wound care, however scientific writer is at [facility] and pt is seen at [facility], which is closed today. [employer] Room Service Supervisor instructed pt to call [place] office in the am and scientific writer will forward this note to provider and case nurse. Pt verbalized understanding and appreciated assistance. [facility] 05-03-2024 History of Present illness Narrative Images from the original note were not included. Wound Care Progress Note Patient: Jason Bartholomew Date of : 1945 Chief Complaint: Traumatic right lower leg wound, follow up Subjective/HPI: Jason is a 78 y.o. male who present to [facility] for evaluation of 1 ulcer(s) on the right lateral Lower leg. Patient established with wound clinic 04/19/2024. Current daily wound care includes: Dakins Solution moist to moist dressing changes twice daily. Patient's daughter is performing dressing changes without difficulty. Patient reports increase bleeding 2-3 days post debridement at last wound clinic appointment. Patient presented to the ER 03/23/2024 for [...] examination. Measurable wound changes: Decreased wound measurement 2.0 cm decrease right lower leg calf circumference Patient accompanied by: Self, arrives in wheelchair, ambulates with the use of a cane Nutritional screen shows patient does not take in three servings of protein per day. Patient does deny fever, chills, sweats or other symptoms of infection. Prescribed antibiotics: Completed as prescribed Today's reported Blood sugar: not recorded today Lab Results Component Value Date HGBA1C 7.2 (H) 08/31/2017 HGBA1C 6.8 (H) 08/11/2015 Tobacco:denied - never a smoker Contributing comorbid conditions: Atrial fibrillation treated with Xarelto Patient Active Problem List Diagnosis Chronic rhinitis Hematospermia Traumatic ulcer of right lower leg with fat layer exposed ([facility]) Aortic valve stenosis Anxiety Arthritis of right knee Cedeño's palsy Benign essential hypertension Bilateral leg edema BPH without urinary obstruction Carcinoma of prostate ([facility]) Carotid atherosclerosis Carpal tunnel syndrome, left upper limb Cellulitis of right lower leg Cervical myelopathy ([facility]) CHF (congestive heart failure), NYHA class III, acute on chronic, diastolic ([facility]) Chronic heart failure with preserved ejection fraction (HFpEF) ([facility]) Complete heart block ([facility]) Degenerative cervical spinal stenosis Degenerative lumbar spinal stenosis Diabetic polyneuropathy ([facility]) DVT of lower extremity, bilateral ([facility]) Dyslipidemia Dysphagia Gastroesophageal reflux disease History of colon polyps Incomplete 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 ([facility]) Laceration without foreign body, left lower leg, initial encounter Leukocytosis Paroxysmal atrial fibrillation ([facility]) Peripheral vascular disease, unspecified ([facility]) Type 2 diabetes mellitus with hyperglycemia, without long-term current use of insulin ([facility]) Stage 3 chronic kidney disease ([facility]) CKD stage 3b, GFR 30-44 ml/min ([facility]) Past Medical History: Diagnosis Date Blood in semen Cancer ([facility]) SKIN, PROSTATE Diabetes mellitus ([facility]) GERD (gastroesophageal reflux disease) Hyperlipidemia Hypertension Hypertensive heart disease Past Surgical History: Procedure Laterality Date APPENDECTOMY CAROTID ARTERY ANGIOPLASTY Left 07/03/2010 CERVICAL SPINE SURGERY c clamp in neck RELEASE TRIGGER FINGER Left 09/08/2021 Performed by Quan Chong DO at [facility] ROT[facility] CUFF REPAIR Bilateral Current Outpatient [...] tablet (5 mg total) by mouth daily. Current Facility-Administered Medications Medication Dose Route Frequency Provider Last Rate Last Admin lidocaine-prilocaine (EMLA) cream 1 Application 1 Application topical Once Lion Lloyd, SPECIAL CLIENT BUS DRIVER-COIL CUTTER Allergies Allergen Reactions Sulfa (Sulfonamide Antibiotics) The following portions of the patient's history were reviewed and updated as appropriate: allergies, current medications, past family history, past medical history, past social history, past surgical history, problem list, and medication reconciliation was completed including current medication and post discharge medication. PAIN: denies Review of Systems Constitutional: Negative for activity [...] concentration. The patient is nervous/anxious. Objective: Vitals: 05/03/24 1402 BP: 153/80 Pulse: 85 Resp: 16 Temp: 36.3 C (97.3 F) Physical Exam Vitals reviewed. Constitutional: General: He is not in acute distress. Appearance: He is not ill-appearing or diaphoretic. Cardiovascular: Rate and Rhythm: Normal rate. Pulses: Dorsalis pedis pulses are 2+ on the right side. Posterior tibial pulses are 2+ on the right side. Comments: Right pedal pulses strongly palpable Right leg with 1+ soft pitting edema Right leg warm, diminished [...] 1 Traumatic Leg Right;Anterior (Active) Wound Image 05/03/241412 Site Assessment Red;Yellow;Black 05/03/241412 Daya-wound Assessment Swelling;Lone Star 05/03/241412 Wound Length (cm) 3.9 cm 05/03/241412 Wound Width (cm) 3.5 cm 05/03/241412 Wound Surface Area (cm^2) 13.65 cm^2 05/03/241412 Wound Depth (cm) 0.5 cm 05/03/241412 Wound Volume (cm^3) 6.825 cm^3 05/03/241412 Change in Wound Size % 13.33 05/03/241412 Drainage Amount Large Copious 05/03/241412 Treatments Cleansed with;Wound cleanser;Soak with;Vashe/Hypochlorous Acid 05/03/241412 Debridement Performed? N 05/03/241438 Dressing Type Alginate;Foam 05/03/241412 Dressing Changed New 05/03/241412 Dressing Status Clean;Dry;Intact 05/03/241412 Wound Bed Granulation (%) 50% to 75% 05/03/241412 Wound Bed Slough (%) 25% to 50% 05/03/241412 Wound Bed Eschar (%) < 25% 05/03/241412 Undermining 1 (cm) 0.6 cm 05/03/241412 Start: Undermining 1 Clock Position 5 o'clock 05/03/241412 End: Undermining 1 Clock Position 6 o'clock 05/03/241412 Assessment/Plan/Education: 1. Traumatic ulcer of right lower leg with fat layer exposed (CMS-HCC) (Primary) 2. Hematoma of right lower leg Wash mild soap and water STOP Dakin's Calcium alginate, cut to fit wound bed Cover with foam or other dressing of comfort Wound is progressing, NPWT not necessary at this time. Patient instructed in Other: Traumatic wounds care to right and leg. Patient verbalize understanding of treatment regimen and the importance of adherence. Patient verbalized understanding. We will continue to follow closely to avoid any complications or infection. Our short term goal is wound compliance. Our mcc goal is wound closure. The patient was [...] verbalized understanding. Follow up wound clinic in 2 weekz. Instructed to contact wound clinic/PCP or ER should symptoms worsen. Total time spent was 22 minutes: Preparing to see the patient (e.g., review of tests) Obtaining and/or reviewing separately obtained history Performing a medically appropriate examination and/or evaluation Counseling and educating the patient/family/caregiver Ordering medications, tests, or procedures Documenting clinical information in the electronic or other health record - FARHAN GARCÍA 05/03/24 2:21 PM Lexi Goldman APRN, SHINE, CWS, CHERELLE [facility]:[phone] FARHAN García 04/26/24 1685 FARHAN García 05/03/24 1510 documented in this encounter [facility] 05-03-2024 Instructions Amita Stevens RN - 05/03/2024 2:00 PM EDT Wound Management Treatment Plan Wound Location(s): Right anterior leg HOW TO CARE FOR YOUR WOUND The following should be performed daily and as needed. STEP 1: Cleanse wound with soap and water then pat dry STEP 2: Apply calcium alginate to wound bed tucking into undermining at 5 oclock to 6 oclock STEP 4: Apply triad around outside of wound then place foam over wound STEP 5: Wrap with roll gauze and tape (no tape on skin) or foam dressing STEP 6: Secure dressings with Tubi/Medigrip ACTIVITY: [...] 04/19/24 1 Traumatic Leg Right;Anterior-Wound Width (cm): 3.5 cm Wound 04/19/24 1 Traumatic Leg Right;Anterior-Wound Depth (cm): 0.5 cm Wound drainage Type Description moderate Sanguinous bloody documented in this encounter [facility] 04-29-2024 Note [facility] Cardiology Clinic Note Chief Complaint: Patient here [...] PSYCH: appropriate mood, affect, and judgement. INVESTIGATIONS: Echocardiogram-[facility] Name: JASON BARTHOLOMEW Study Date: 09/28/2023 02:28 PM B/P: / HR: Date of : 1945 Location: [facility] Height: 69 in. Age: 78 year(s) Patient Room : Weight: 193 lb. Gender: Male Patient Status: OutPt BSA: 2.03 m2 (more content not included)... [facility] 04-26-2024 History of Present illness Narrative Images from the original note were not included. Wound Care Progress Note Patient: Jason Bartholomew Date of : 1945 Chief Complaint: Traumatic right lower leg wound, follow up Subjective/HPI: Jason is a 78 y.o. male who present to [facility] for evaluation of 1 ulcer(s) [...] right lower leg with fat layer exposed ([facility]) Aortic valve stenosis Anxiety Arthritis of right knee Cedeño's palsy Benign essential hypertension Bilateral leg edema BPH without urinary obstruction Carcinoma of prostate ([facility]) Carotid atherosclerosis Carpal tunnel syndrome, left upper limb Cellulitis of right lower leg Cervical myelopathy ([facility]) CHF (congestive heart failure), NYHA class III, acute on chronic, diastolic ([facility]) Chronic heart failure with preserved ejection fraction (HFpEF) ([facility]) Complete heart block ([facility]) Degenerative cervical spinal stenosis Degenerative lumbar spinal stenosis Diabetic polyneuropathy ([facility]) DVT of lower extremity, bilateral ([facility]) Dyslipidemia Dysphagia Gastroesophageal reflux disease History of colon polyps Incomplete 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 ([facility]) Laceration without foreign body, left lower leg, initial encounter Leukocytosis Paroxysmal atrial fibrillation ([facility]) Peripheral vascular disease, unspecified ([facility]) Type 2 diabetes mellitus with hyperglycemia, without long-term current use of insulin ([facility]) Stage 3 chronic kidney disease ([facility]) CKD stage 3b, GFR 30-44 ml/min ([facility]) Past Medical History: Diagnosis Date Blood in semen Cancer ([facility]) SKIN, PROSTATE Diabetes mellitus ([facility]) GERD (gastroesophageal reflux disease) Hyperlipidemia Hypertension Hypertensive heart disease Past Surgical History: Procedure Laterality Date APPENDECTOMY CAROTID ARTERY ANGIOPLASTY Left 07/03/2010 CERVICAL SPINE SURGERY c clamp in neck RELEASE TRIGGER FINGER Left 09/08/2021 Performed by Quan Chong DO at [facility] ROT[facility] CUFF REPAIR Bilateral Current Outpatient [...] (Active) Wound Image Pre debridement Post debridement 04/26/241349 Site Assessment Red;Yellow;Moist;[place]field;Brown 04/26/241349 Daya-wound Assessment Lone Star;Blanchable erythema 04/26/241349 Wound Length (cm) 3.9 cm [...] cm^2 04/26/246 Dressing Type Foam;Gauze Rolled/Kerlix 04/19/24 105 Dressing Changed New 04/19/24 105 Dressing Status Clean;Dry;Intact 04/19/24 105 Wound Bed Granulation (%) < 25% 04/26/241349 [...] short term goal is wound compliance. 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 The patient was [...] Goldman APRN, SHINE, CWS, CHERELLE [facility]:[phone] FARHAN García 04/26/24 5081 documented in this encounter [facility] 04-26-2024 Instructions Apple Lam RN - 04/26/2024 [...] moderate Sanguinous bloody documented in this encounter [facility] 04-22-2024 Miscellaneous Notes [employer] Room Service Supervisor returned call to patient after message left on nurse line requesting whether he needed more antibiotics. [employer] Room Service Supervisor reviewed provider's note from 04/19/24, which stated to take current antibiotics until gone and no plan for additional antibiotics at this time. [employer] Room Service Supervisor informed patient of above. Patient verbalized understanding. documented in this encounter [facility] 04-22-2024 Telephone encounter Note [employer] Room Service Supervisor returned call to patient after message left on nurse line requesting whether he needed more antibiotics. [employer] Room Service Supervisor reviewed provider's note from 04/19/24, which stated to take current antibiotics until gone and no plan for additional antibiotics at this time. [employer] Room Service Supervisor informed patient of above. Patient verbalized understanding. [facility] 04-19-2024 History of Present illness Narrative Images from the original note were not included. Wound Care Progress Note Patient: Jason Bartholomew Date of : 1945 Chief Complaint: nonhealing leg wound, new patient Subjective/HPI: Jason is a 78 y.o. male who present to [facility] for evaluation of 1 ulcer(s) [...] (H) 4.3 - 5.6 % Final Comment: [place] [employer] guidelines indicate that patients with [...] right lower leg with fat layer exposed ([facility]) Aortic valve stenosis Anxiety Arthritis of right knee Cedeño's palsy Benign essential hypertension Bilateral leg edema BPH without urinary obstruction Carcinoma of prostate ([facility]) Carotid atherosclerosis Carpal tunnel syndrome, left upper limb Cellulitis of right lower leg Cervical myelopathy ([facility]) CHF (congestive heart failure), NYHA class III, acute on chronic, diastolic ([facility]) Chronic heart failure with preserved ejection fraction (HFpEF) ([facility]) Complete heart block ([facility]) Degenerative cervical spinal stenosis Degenerative lumbar spinal stenosis Diabetic polyneuropathy ([facility]) DVT of lower extremity, bilateral ([facility]) Dyslipidemia Dysphagia Gastroesophageal reflux disease History of colon polyps Incomplete 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 ([facility]) Laceration without foreign body, left lower leg, initial encounter Leukocytosis Paroxysmal atrial fibrillation ([facility]) Peripheral vascular disease, unspecified ([facility]) Type 2 diabetes mellitus with hyperglycemia, without long-term current use of insulin ([facility]) Stage 3 chronic kidney disease ([facility]) CKD stage 3b, GFR 30-44 ml/min ([facility]) Past Medical History: Diagnosis Date Blood in semen Cancer ([facility]) SKIN, PROSTATE Diabetes mellitus ([facility]) GERD (gastroesophageal reflux disease) Hyperlipidemia Hypertension Hypertensive heart disease Past Surgical History: Procedure Laterality Date APPENDECTOMY CAROTID ARTERY ANGIOPLASTY Left 07/03/2010 CERVICAL SPINE SURGERY c clamp in neck RELEASE TRIGGER FINGER Left 09/08/2021 Performed by Quan Chong DO at [facility] ROTATOR CUFF REPAIR Bilateral Current Outpatient Medications [...] the next few appointments 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 Follow up wound [...] or other health record Yandy REAL, DIAZ [facility] Wound Care Office: [phone] Email: [email or web address] Thank you very much for allowing us to participate in your patients care. Your referrals are greatly appreciated, please do not hesitate to contact our service with any questions or concerns regarding the care management. FARHAN Scott 04/19/24 1320 documented in this encounter [facility] 04-19-2024 Instructions Amita Stevens RN - 04/19/2024 [...] or higher. ITEMS TO FOLLOW UP ON: stock supervisor Dakins at pharamcy Length Width Depth Wound drainage Type Description moderate Sanguinous bloody documented in this encounter [facility] 04-10-2024 History of Present illness Narrative Associated Problem(s): Wound of right [...] to Wound Clinic documented in this encounter [facility] 03-28-2024 History of Present illness Narrative Associated Problem(s): Type 2 diabetes mellitus with hyperglycemia, without long-term current use of insulin ([facility]) Reports BS controlled and due for A1C. Stick to ADA diet and limit carbs. Associated Problem(s): Degenerative lumbar spinal stenosis Unsteady when up and moving and script for cane to patient. Associated Problem(s): Cellulitis of right lower leg Redness improved and complete antibiotics as prescribed. Images from the original note were not included. Subjective Patient ID: Jason Bartholomew is a 78 y.o. male who presents for Follow-up ([facility] ER F/U, RT LEG WOUND). ER follow up from 03/23 for cellulitis right leg. Scrapped mcmahan about 1 week prior and developed large scab. After several days developed redness and swelling to lower leg. Skin painful, red, and warm to touch. Pain to walk or stand. Afebrile and no nausea. To ER and labs and x-ray normal. Given dose ancef and script for augmentin. Much improved today. Mild redness but not as swollen. Not as red and no longer warm to touch. BS controlled around 100-110. Did not have labs drawn last visit. Denies signs of elevated BS such as polyuria, polyphagia or polydipsia. Requests a cane. History of lumbar spinal stenosis and unsteady when up and moving. Worried will fall and requests cane to help with balance. Review of Systems Constitutional: Negative for fatigue. [...] Assessment/Plan Problem List Items Addressed This Visit Degenerative lumbar spinal stenosis Unsteady when up and moving and script for cane to patient. Dyslipidemia ([facility]) Relevant Orders Lipid panel CKD stage 3b, GFR 30-44 ml/min ([facility]) Relevant Orders Basic metabolic panel Type 2 diabetes mellitus with hyperglycemia, without long-term current use of insulin ([facility]) Reports BS controlled and due for A1C. Stick to ADA diet and limit carbs. Relevant Orders Hemoglobin A1c Encounter for long-term (current) use of medications Relevant Orders CBC and differential Hepatic function panel Screening PSA (prostate specific antigen) Relevant Orders PSA Cellulitis of right lower leg - Primary Redness improved and complete antibiotics as prescribed. documented in this encounter [facility] 07-28-2023 Evaluation note Encounter Date Diagnosis Assessment [...] by cat, initial encounter (ICD-10 - W55.01XA) [facility] Other 01-19-2023 Evaluation note* Encounter Date Diagnosis Assessment Notes Treatment Notes Treatment Clinical Notes Jul, Status post carpal tunnel release (ICD-10 - Z98.890) Mr Bartholomew is doing well. 3 sutures removed. Edcuation completed to continue strenghting hands with exercises given. Patient can be return on as needed basis [facility] Other 12-01-2022 Evaluation note* Encounter Date Diagnosis [...] and to be off anticoagualtion thaerapy. Jun, alf current use of anticoagulant therapy (ICD-10 - Z79.01) Jun, Primary hypertension (ICD-10 - I10) [facility] Other 09-16-2022 Evaluation note* Encounter Date Diagnosis [...] patient agrees. A referral will be sent [facility] Other 10-30-2021 Evaluation note* Encounter Date Diagnosis [...] unspecified ligament, initial encounter (ICD-10 - S93.401A) [employer] Other Evaluation noteNo assessment information available [facility] Work Phone: Evaluation note* Diagnosis Cellulitis of right lower leg- Primary Wound of right leg, subsequent encounter documented in this encounter [facility] HealthcareEvaluation note* Diagnosis Type 2 diabetes mellitus with hyperglycemia, without long-term current use of insulin (CMS/HCC)- Primary Essential hypertension, benign (CMS/HCC) Essential hypertension, benign Chronic heart failure with preserved ejection fraction (HFpEF) (CMS/HCC) Paroxysmal atrial fibrillation (CMS/HCC) Atrial fibrillation Diabetic polyneuropathy associated with type 2 diabetes mellitus (CMS/HCC) Peripheral vascular disease, unspecified (CMS/HCC) Peripheral vascular disease, unspecified CKD stage 3b, GFR 30-44 ml/min (CMS/HCC) Encounter for long-term (current) use of medications Encounter for long-term (current) use of other medications Dyslipidemia (CMS/HCC) Other and unspecified hyperlipidemia Screening PSA (prostate specific antigen) Special screening for malignant neoplasm of prostate Type 2 diabetes mellitus with stage 3b chronic kidney disease, without long-term current use of insulin (HCC) (CMS/HCC) Type 2 diabetes mellitus 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, without long-term current use of insulin (CMS/HCC) Cellulitis of right lower leg- Primary Type 2 diabetes mellitus with hyperglycemia, without long-term current use of insulin (CMS/HCC) CKD stage 3b, GFR 30-44 ml/min (CMS/HCC) Dyslipidemia (CMS/HCC) Other and unspecified hyperlipidemia Screening PSA (prostate specific antigen) Special screening for malignant neoplasm of prostate Encounter for long-term (current) use of medications Encounter for long-term (current) use of other medications Degenerative lumbar spinal stenosis Spinal stenosis of lumbar region Cellulitis of right lower leg- Primary Wound of right leg, subsequent encounter Iron deficiency anemia due to chronic blood loss- Primary Iron deficiency anemia secondary to blood loss (chronic) documented in this encounter [facility] HealthcareEvaluation note* Diagnosis Cellulitis of right lower leg- Primary Type 2 diabetes mellitus with hyperglycemia, without long-term current use of insulin (CMS/HCC) CKD stage 3b, GFR 30-44 ml/min (CMS/HCC) Dyslipidemia (CMS/HCC) Other and unspecified hyperlipidemia Screening PSA (prostate specific antigen) Special screening for malignant neoplasm of prostate Encounter for long-term (current) use of medications Encounter for long-term (current) use of other medications Degenerative lumbar spinal stenosis Spinal stenosis of lumbar region documented in this encounter [facility] HealthcareEvaluation note* Diagnosis Traumatic ulcer of right lower leg with fat layer exposed ([facility]-HCC)- Primary [facility] Diagnosis Type 2 diabetes mellitus with hyperglycemia, without long-term current use of insulin (CMS/HCC)- Primary Essential hypertension, benign (CMS/HCC) Essential hypertension, benign Chronic heart failure with preserved ejection fraction (HFpEF) (CMS/HCC) Paroxysmal atrial fibrillation (CMS/HCC) Atrial fibrillation Diabetic polyneuropathy associated with type 2 diabetes mellitus (CMS/HCC) Peripheral vascular disease, unspecified (CMS/HCC) Peripheral vascular disease, unspecified CKD stage 3b, GFR 30-44 ml/min (CMS/HCC) Encounter for long-term (current) use of medications Encounter for long-term (current) use of other medications Dyslipidemia (CMS/HCC) Other and unspecified hyperlipidemia Screening PSA (prostate specific antigen) Special screening for malignant neoplasm of prostate Type 2 diabetes mellitus with stage 3b chronic kidney disease, without long-term current use of insulin (HCC) (CMS/HCC) Type 2 diabetes mellitus 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, without long-term current use of insulin (CMS/HCC) Cellulitis of right lower leg- Primary Type 2 diabetes mellitus with hyperglycemia, without long-term current use of insulin (CMS/HCC) CKD stage 3b, GFR 30-44 ml/min (CMS/HCC) Dyslipidemia (CMS/HCC) Other and unspecified hyperlipidemia Screening PSA (prostate specific antigen) Special screening for malignant neoplasm of prostate Encounter for long-term (current) use of medications Encounter for long-term (current) use of other medications Degenerative lumbar spinal stenosis Spinal stenosis of lumbar region Cellulitis of right lower leg- Primary Wound of right leg, subsequent encounter Type 2 diabetes mellitus with hyperglycemia, without long-term current use of insulin (CMS/HCC)- Primary Essential hypertension, benign (CMS/HCC) Essential hypertension, benign Diabetic polyneuropathy associated with type 2 diabetes mellitus (CMS/HCC) Traumatic ulcer of right lower leg with fat layer exposed (CMS/HCC) Chronic heart failure with preserved ejection fraction (HFpEF) (CMS/HCC) Peripheral vascular disease, unspecified (CMS/HCC) Peripheral vascular disease, unspecified Paroxysmal atrial fibrillation (CMS/HCC) Atrial fibrillation Chronic pain of both shoulders CKD stage 3b, GFR 30-44 ml/min (CMS/HCC) Type 2 diabetes mellitus 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 (CMS/HCC) Type 2 diabetes mellitus with diabetic chronic kidney disease (CMS/HCC) documented in this encounter [facility]* Diagnosis Traumatic ulcer of right lower leg with fat layer exposed (CMS-HCC)- [facility] Diagnosis Type 2 diabetes mellitus with hyperglycemia, without long-term current use of insulin (CMS/HCC)- Primary Essential hypertension, benign (CMS/HCC) Essential hypertension, benign Chronic heart failure with preserved ejection fraction (HFpEF) (CMS/HCC) Paroxysmal atrial fibrillation (CMS/HCC) Atrial fibrillation Diabetic polyneuropathy associated with type 2 diabetes mellitus (CMS/HCC) Peripheral vascular disease, unspecified (CMS/HCC) Peripheral vascular disease, unspecified CKD stage 3b, GFR 30-44 ml/min (CMS/HCC) Encounter for long-term (current) use of medications Encounter for long-term (current) use of other medications Dyslipidemia (CMS/HCC) Other and unspecified hyperlipidemia Screening PSA (prostate specific antigen) Special screening for malignant neoplasm of prostate Type 2 diabetes mellitus with stage 3b chronic kidney disease, without long-term current use of insulin (HCC) (CMS/HCC) Type 2 diabetes mellitus 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, without long-term current use of insulin (CMS/HCC) Cellulitis of right lower leg- Primary Type 2 diabetes mellitus with hyperglycemia, without long-term current use of insulin (CMS/HCC) CKD stage 3b, GFR 30-44 ml/min (CMS/HCC) Dyslipidemia (CMS/HCC) Other and unspecified hyperlipidemia Screening PSA (prostate specific antigen) Special screening for malignant neoplasm of prostate Encounter for long-term (current) use of medications Encounter for long-term (current) use of other medications Degenerative lumbar spinal stenosis Spinal stenosis of lumbar region Cellulitis of right lower leg- Primary Wound of right leg, subsequent encounter Type 2 diabetes mellitus with hyperglycemia, without long-term current use of insulin (CMS/HCC)- Primary Essential hypertension, benign (CMS/HCC) Essential hypertension, benign Diabetic polyneuropathy associated with type 2 diabetes mellitus (CMS/HCC) Traumatic ulcer of right lower leg with fat layer exposed (CMS/HCC) Chronic heart failure with preserved ejection fraction (HFpEF) (CMS/HCC) Peripheral vascular disease, unspecified (CMS/HCC) Peripheral vascular disease, unspecified Paroxysmal atrial fibrillation (CMS/HCC) Atrial fibrillation Chronic pain of both shoulders CKD stage 3b, GFR 30-44 ml/min (CMS/HCC) Type 2 diabetes mellitus 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 (CMS/HCC) Type 2 diabetes mellitus with diabetic chronic kidney disease (CMS/HCC) Left shoulder pain, unspecified chronicity- Primary Chronic pain of both shoulders Impingement of left shoulder Glenohumeral arthritis, left documented in this encounter [facility]* Diagnosis Type 2 diabetes mellitus with hyperglycemia, without long-term current use of insulin (CMS/HCC)- Primary Essential hypertension, benign (CMS/HCC) Essential hypertension, benign Chronic heart failure with preserved ejection fraction (HFpEF) (CMS/HCC) Paroxysmal atrial fibrillation (CMS/HCC) Atrial fibrillation Diabetic polyneuropathy associated with type 2 diabetes mellitus (CMS/HCC) Peripheral vascular disease, unspecified (CMS/HCC) Peripheral vascular disease, unspecified CKD stage 3b, GFR 30-44 ml/min ([facility]/HCC) Encounter for long-term (current) use of medications Encounter for long-term (current) use of other medications Dyslipidemia ([facility]/HCC) Other and unspecified hyperlipidemia Screening PSA (prostate specific antigen) Special screening for malignant neoplasm of prostate Type 2 diabetes mellitus with stage 3b chronic kidney disease, without long-term current use of insulin (HCC) ([facility]/HCC) Type 2 diabetes mellitus 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, without long-term current use of insulin ([facility]/HCC) Cellulitis of right lower leg- Primary Type 2 diabetes mellitus with hyperglycemia, without long-term current use of insulin (CMS/HCC) CKD stage 3b, GFR 30-44 ml/min (CMS/HCC) Dyslipidemia (CMS/HCC) Other and unspecified hyperlipidemia Screening PSA (prostate specific antigen) Special screening for malignant neoplasm of prostate Encounter for long-term (current) use of medications Encounter for long-term (current) use of other medications Degenerative lumbar spinal stenosis Spinal stenosis of lumbar region Cellulitis of right lower leg- Primary Wound of right leg, subsequent encounter Type 2 diabetes mellitus with hyperglycemia, without long-term current use of insulin (CMS/HCC)- Primary Essential hypertension, benign (CMS/HCC) Essential hypertension, benign Diabetic polyneuropathy associated with type 2 diabetes mellitus (CMS/HCC) Traumatic ulcer of right lower leg with fat layer exposed (CMS/HCC) Chronic heart failure with preserved ejection fraction (HFpEF) (CMS/HCC) Peripheral vascular disease, unspecified (CMS/HCC) Peripheral vascular disease, unspecified Paroxysmal atrial fibrillation (CMS/HCC) Atrial fibrillation Chronic pain of both shoulders CKD stage 3b, GFR 30-44 ml/min (CMS/HCC) Type 2 diabetes mellitus 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 (CMS/HCC) Type 2 diabetes mellitus with diabetic chronic kidney disease (CMS/HCC) Chronic pain of both shoulders- Primary documented in this encounter [facility]* Diagnosis Type 2 diabetes mellitus with hyperglycemia, without long-term current use of insulin (CMS/HCC)- Primary Essential hypertension, benign (CMS/HCC) Essential hypertension, benign Chronic heart failure with preserved ejection fraction (HFpEF) (CMS/HCC) Paroxysmal atrial fibrillation (CMS/HCC) Atrial fibrillation Diabetic polyneuropathy associated with type 2 diabetes mellitus (CMS/HCC) Peripheral vascular disease, unspecified (CMS/HCC) Peripheral vascular disease, unspecified CKD stage 3b, GFR 30-44 ml/min (CMS/HCC) Encounter for long-term (current) use of medications Encounter for long-term (current) use of other medications Dyslipidemia (CMS/HCC) Other and unspecified hyperlipidemia Screening PSA (prostate specific antigen) Special screening for malignant neoplasm of prostate Type 2 diabetes mellitus with stage 3b chronic kidney disease, without long-term current use of insulin (HCC) (CMS/HCC) Type 2 diabetes mellitus 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, without long-term current use of insulin (CMS/HCC) Cellulitis of right lower leg- Primary Type 2 diabetes mellitus with hyperglycemia, without long-term current use of insulin (CMS/HCC) CKD stage 3b, GFR 30-44 ml/min (CMS/HCC) Dyslipidemia (CMS/HCC) Other and unspecified hyperlipidemia Screening PSA (prostate specific antigen) Special screening for malignant neoplasm of prostate Encounter for long-term (current) use of medications Encounter for long-term (current) use of other medications Degenerative lumbar spinal stenosis Spinal stenosis of lumbar region Cellulitis of right lower leg- Primary Wound of right leg, subsequent encounter Type 2 diabetes mellitus with hyperglycemia, without long-term current use of insulin (CMS/HCC)- Primary Essential hypertension, benign (CMS/HCC) Essential hypertension, benign Diabetic polyneuropathy associated with type 2 diabetes mellitus (CMS/HCC) Traumatic ulcer of right lower leg with fat layer exposed (CMS/HCC) Chronic heart failure with preserved ejection fraction (HFpEF) (CMS/HCC) Peripheral vascular disease, unspecified (CMS/HCC) Peripheral vascular disease, unspecified Paroxysmal atrial fibrillation (CMS/HCC) Atrial fibrillation Chronic pain of both shoulders CKD stage 3b, GFR 30-44 ml/min (CMS/HCC) Type 2 diabetes mellitus 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 (CMS/HCC) Type 2 diabetes mellitus with diabetic chronic kidney disease (CMS/HCC) Chronic pain of both shoulders- Primary documented in this encounter [facility]* Diagnosis Type 2 diabetes mellitus with hyperglycemia, without long-term current use of insulin (CMS/HCC)- Primary Essential hypertension, benign (CMS/HCC) Essential hypertension, benign Chronic heart failure with preserved ejection fraction (HFpEF) (CMS/HCC) Paroxysmal atrial fibrillation (CMS/HCC) Atrial fibrillation Diabetic polyneuropathy associated with type 2 diabetes mellitus (CMS/HCC) Peripheral vascular disease, unspecified (CMS/HCC) Peripheral vascular disease, unspecified CKD stage 3b, GFR 30-44 ml/min (CMS/HCC) Encounter for long-term (current) use of medications Encounter for long-term (current) use of other medications Dyslipidemia (CMS/HCC) Other and unspecified hyperlipidemia Screening PSA (prostate specific antigen) Special screening for malignant neoplasm of prostate Type 2 diabetes mellitus with stage 3b chronic kidney disease, without long-term current use of insulin (HCC) (CMS/HCC) Type 2 diabetes mellitus 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, without long-term current use of insulin (CMS/HCC) Cellulitis of right lower leg- Primary Type 2 diabetes mellitus with hyperglycemia, without long-term current use of insulin (CMS/HCC) CKD stage 3b, GFR 30-44 ml/min (CMS/HCC) Dyslipidemia (CMS/HCC) Other and unspecified hyperlipidemia Screening PSA (prostate specific antigen) Special screening for malignant neoplasm of prostate Encounter for long-term (current) use of medications Encounter for long-term (current) use of other medications Degenerative lumbar spinal stenosis Spinal stenosis of lumbar region Cellulitis of right lower leg- Primary Wound of right leg, subsequent encounter Type 2 diabetes mellitus with hyperglycemia, without long-term current use of insulin (CMS/HCC)- Primary Essential hypertension, benign (CMS/HCC) Essential hypertension, benign Diabetic polyneuropathy associated with type 2 diabetes mellitus (CMS/HCC) Traumatic ulcer of right lower leg with fat layer exposed (CMS/HCC) Chronic heart failure with preserved ejection fraction (HFpEF) (CMS/HCC) Peripheral vascular disease, unspecified (CMS/HCC) Peripheral vascular disease, unspecified Paroxysmal atrial fibrillation (CMS/HCC) Atrial fibrillation Chronic pain of both shoulders CKD stage 3b, GFR 30-44 ml/min (CMS/HCC) Type 2 diabetes mellitus 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 (CMS/HCC) Type 2 diabetes mellitus with diabetic chronic kidney disease (CMS/HCC) Chronic pain of both shoulders- Primary documented in this encounter [facility]* Diagnosis Type 2 diabetes mellitus with hyperglycemia, without long-term current use of insulin (CMS/HCC)- Primary Essential hypertension, benign (CMS/HCC) Essential hypertension, benign Chronic heart failure with preserved ejection fraction (HFpEF) (CMS/HCC) Paroxysmal atrial fibrillation (CMS/HCC) Atrial fibrillation Diabetic polyneuropathy associated with type 2 diabetes mellitus (CMS/HCC) Peripheral vascular disease, unspecified (CMS/HCC) Peripheral vascular disease, unspecified CKD stage 3b, GFR 30-44 ml/min (CMS/HCC) Encounter for long-term (current) use of medications Encounter for long-term (current) use of other medications Dyslipidemia (CMS/HCC) Other and unspecified hyperlipidemia Screening PSA (prostate specific antigen) Special screening for malignant neoplasm of prostate Type 2 diabetes mellitus with stage 3b chronic kidney disease, without long-term current use of insulin (HCC) (CMS/HCC) Type 2 diabetes mellitus 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, without long-term current use of insulin (CMS/HCC) Cellulitis of right lower leg- Primary Type 2 diabetes mellitus with hyperglycemia, without long-term current use of insulin (CMS/HCC) CKD stage 3b, GFR 30-44 ml/min (CMS/HCC) Dyslipidemia (CMS/HCC) Other and unspecified hyperlipidemia Screening PSA (prostate specific antigen) Special screening for malignant neoplasm of prostate Encounter for long-term (current) use of medications Encounter for long-term (current) use of other medications Degenerative lumbar spinal stenosis Spinal stenosis of lumbar region Cellulitis of right lower leg- Primary Wound of right leg, subsequent encounter Type 2 diabetes mellitus with hyperglycemia, without long-term current use of insulin (CMS/HCC)- Primary Essential hypertension, benign (CMS/HCC) Essential hypertension, benign Diabetic polyneuropathy associated with type 2 diabetes mellitus (CMS/HCC) Traumatic ulcer of right lower leg with fat layer exposed (CMS/HCC) Chronic heart failure with preserved ejection fraction (HFpEF) (CMS/HCC) Peripheral vascular disease, unspecified (CMS/HCC) Peripheral vascular disease, unspecified Paroxysmal atrial fibrillation (CMS/HCC) Atrial fibrillation Chronic pain of both shoulders CKD stage 3b, GFR 30-44 ml/min (CMS/HCC) Type 2 diabetes mellitus 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 (CMS/HCC) Type 2 diabetes mellitus with diabetic chronic kidney disease (CMS/HCC) Chronic pain of both shoulders- Primary documented in this encounter [facility]* Diagnosis Traumatic ulcer of right lower leg, limited to breakdown of skin (CMS-HCC)- Primary Traumatic ulcer of left lower leg, limited to breakdown of skin ([facility]) Bilateral leg edema Edema [facility] Diagnosis Type 2 diabetes mellitus with hyperglycemia, without long-term current use of insulin (CMS/HCC)- Primary Essential hypertension, benign (CMS/HCC) Essential hypertension, benign Chronic heart failure with preserved ejection fraction (HFpEF) (CMS/HCC) Paroxysmal atrial fibrillation ([facility]/HCC) Atrial fibrillation Diabetic polyneuropathy associated with type 2 diabetes mellitus (CMS/HCC) Peripheral vascular disease, unspecified (CMS/HCC) Peripheral vascular disease, unspecified CKD stage 3b, GFR 30-44 ml/min ([facility]/HCC) Encounter for long-term (current) use of medications Encounter for long-term (current) use of other medications Dyslipidemia (CMS/HCC) Other and unspecified hyperlipidemia Screening PSA (prostate specific antigen) Special screening for malignant neoplasm of prostate Type 2 diabetes mellitus with stage 3b chronic kidney disease, without long-term current use of insulin (HCC) ([facility]/HCC) Type 2 diabetes mellitus 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, without long-term current use of insulin (CMS/HCC) Cellulitis of right lower leg- Primary Type 2 diabetes mellitus with hyperglycemia, without long-term current use of insulin (CMS/HCC) CKD stage 3b, GFR 30-44 ml/min (CMS/HCC) Dyslipidemia (CMS/HCC) Other and unspecified hyperlipidemia Screening PSA (prostate specific antigen) Special screening for malignant neoplasm of prostate Encounter for long-term (current) use of medications Encounter for long-term (current) use of other medications Degenerative lumbar spinal stenosis Spinal stenosis of lumbar region Cellulitis of right lower leg- Primary Wound of right leg, subsequent encounter Type 2 diabetes mellitus with hyperglycemia, without long-term current use of insulin (CMS/HCC)- Primary Essential hypertension, benign (CMS/HCC) Essential hypertension, benign Diabetic polyneuropathy associated with type 2 diabetes mellitus (CMS/HCC) Traumatic ulcer of right lower leg with fat layer exposed (CMS/HCC) Chronic heart failure with preserved ejection fraction (HFpEF) ([facility]) Peripheral vascular disease, unspecified ([facility]) Peripheral vascular disease, unspecified Paroxysmal atrial fibrillation ([facility]/HCC) Atrial fibrillation Chronic pain of both shoulders CKD stage 3b, GFR 30-44 ml/min ([facility]/HCC) Type 2 diabetes mellitus 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 ([facility]/HCC) Type 2 diabetes mellitus with diabetic chronic kidney disease ([facility]/HCC) Chronic pain of both shoulders- Primary Left shoulder pain, unspecified chronicity- Primary Impingement of left shoulder Glenohumeral arthritis, left documented in this encounter [facility]* Diagnosis Type 2 diabetes mellitus with hyperglycemia, without long-term current use of insulin ([facility])- Primary Essential hypertension, benign (CMS/HCC) Essential hypertension, benign Chronic heart failure with preserved ejection fraction (HFpEF) (CMS/HCC) Paroxysmal atrial fibrillation ([facility]/HCC) Atrial fibrillation Diabetic polyneuropathy associated with type 2 diabetes mellitus (CMS/HCC) Peripheral vascular disease, unspecified (CMS/HCC) Peripheral vascular disease, unspecified CKD stage 3b, GFR 30-44 ml/min ([facility]/HCC) Encounter for long-term (current) use of medications Encounter for long-term (current) use of other medications Dyslipidemia (CMS/HCC) Other and unspecified hyperlipidemia Screening PSA (prostate specific antigen) Special screening for malignant neoplasm of prostate Type 2 diabetes mellitus with stage 3b chronic kidney disease, without long-term current use of insulin (HCC) ([facility]/HCC) Type 2 diabetes mellitus 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, without long-term current use of insulin ([facility]/HCC) Cellulitis of right lower leg- Primary Type 2 diabetes mellitus with hyperglycemia, without long-term current use of insulin (CMS/HCC) CKD stage 3b, GFR 30-44 ml/min (CMS/HCC) Dyslipidemia (CMS/HCC) Other and unspecified hyperlipidemia Screening PSA (prostate specific antigen) Special screening for malignant neoplasm of prostate Encounter for long-term (current) use of medications Encounter for long-term (current) use of other medications Degenerative lumbar spinal stenosis Spinal stenosis of lumbar region Cellulitis of right lower leg- Primary Wound of right leg, subsequent encounter Type 2 diabetes mellitus with hyperglycemia, without long-term current use of insulin ([facility]/HCC)- Primary Essential hypertension, benign (CMS/HCC) Essential hypertension, benign Diabetic polyneuropathy associated with type 2 diabetes mellitus ([facility]/HCC) Traumatic ulcer of right lower leg with fat layer exposed ([facility]) Chronic heart failure with preserved ejection fraction (HFpEF) ([facility]/HCC) Peripheral vascular disease, unspecified (CMS/HCC) Peripheral vascular disease, unspecified Paroxysmal atrial fibrillation ([facility]/HCC) Atrial fibrillation Chronic pain of both shoulders CKD stage 3b, GFR 30-44 ml/min (CMS/HCC) Type 2 diabetes mellitus 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 (CMS/HCC) Type 2 diabetes mellitus with diabetic chronic kidney disease ([facility]/HCC) Chronic pain of both shoulders- Primary Left shoulder pain, unspecified chronicity- Primary Impingement of left shoulder Glenohumeral arthritis, left documented in this encounter [facility]* Diagnosis Type 2 diabetes mellitus with hyperglycemia, without long-term current use of insulin ([facility]/HCC)- Primary Essential hypertension, benign (CMS/HCC) Essential hypertension, benign Chronic heart failure with preserved ejection fraction (HFpEF) (CMS/HCC) Paroxysmal atrial fibrillation ([facility]/HCC) Atrial fibrillation Diabetic polyneuropathy associated with type 2 diabetes mellitus (CMS/HCC) Peripheral vascular disease, unspecified (CMS/HCC) Peripheral vascular disease, unspecified CKD stage 3b, GFR 30-44 ml/min ([facility]) Encounter for long-term (current) use of medications Encounter for long-term (current) use of other medications Dyslipidemia (CMS/HCC) Other and unspecified hyperlipidemia Screening PSA (prostate specific antigen) Special screening for malignant neoplasm of prostate Type 2 diabetes mellitus with stage 3b chronic kidney disease, without long-term current use of insulin (HCC) (CMS/HCC) Type 2 diabetes mellitus 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, without long-term current use of insulin (CMS/HCC) Cellulitis of right lower leg- Primary Type 2 diabetes mellitus with hyperglycemia, without long-term current use of insulin (CMS/HCC) CKD stage 3b, GFR 30-44 ml/min (CMS/HCC) Dyslipidemia (CMS/HCC) Other and unspecified hyperlipidemia Screening PSA (prostate specific antigen) Special screening for malignant neoplasm of prostate Encounter for long-term (current) use of medications Encounter for long-term (current) use of other medications Degenerative lumbar spinal stenosis Spinal stenosis of lumbar region Cellulitis of right lower leg- Primary Wound of right leg, subsequent encounter Type 2 diabetes mellitus with hyperglycemia, without long-term current use of insulin (CMS/HCC)- Primary Essential hypertension, benign (CMS/HCC) Essential hypertension, benign Diabetic polyneuropathy associated with type 2 diabetes mellitus (CMS/HCC) Traumatic ulcer of right lower leg with fat layer exposed (CMS/HCC) Chronic heart failure with preserved ejection fraction (HFpEF) (CMS/HCC) Peripheral vascular disease, unspecified (CMS/HCC) Peripheral vascular disease, unspecified Paroxysmal atrial fibrillation (CMS/HCC) Atrial fibrillation Chronic pain of both shoulders CKD stage 3b, GFR 30-44 ml/min (CMS/HCC) Type 2 diabetes mellitus 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 (CMS/HCC) Type 2 diabetes mellitus with diabetic chronic kidney disease (CMS/HCC) Left shoulder pain, unspecified chronicity- Primary Impingement of left shoulder Glenohumeral arthritis, left Acute pain of right shoulder Internal derangement of right shoulder documented in this encounter [facility]* Diagnosis Type 2 diabetes mellitus with hyperglycemia, without long-term current use of insulin (CMS/HCC)- Primary Essential hypertension, benign (CMS/HCC) Essential hypertension, benign Chronic heart failure with preserved ejection fraction (HFpEF) (CMS/HCC) Paroxysmal atrial fibrillation (CMS/HCC) Atrial fibrillation Diabetic polyneuropathy associated with type 2 diabetes mellitus (CMS/HCC) Peripheral vascular disease, unspecified (CMS/HCC) Peripheral vascular disease, unspecified CKD stage 3b, GFR 30-44 ml/min (CMS/HCC) Encounter for long-term (current) use of medications Encounter for long-term (current) use of other medications Dyslipidemia (CMS/HCC) Other and unspecified hyperlipidemia Screening PSA (prostate specific antigen) Special screening for malignant neoplasm of prostate Type 2 diabetes mellitus with stage 3b chronic kidney disease, without long-term current use of insulin (HCC) (CMS/HCC) Type 2 diabetes mellitus 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, without long-term current use of insulin (CMS/HCC) Cellulitis of right lower leg- Primary Type 2 diabetes mellitus with hyperglycemia, without long-term current use of insulin (CMS/HCC) CKD stage 3b, GFR 30-44 ml/min (CMS/HCC) Dyslipidemia (CMS/HCC) Other and unspecified hyperlipidemia Screening PSA (prostate specific antigen) Special screening for malignant neoplasm of prostate Encounter for long-term (current) use of medications Encounter for long-term (current) use of other medications Degenerative lumbar spinal stenosis Spinal stenosis of lumbar region Cellulitis of right lower leg- Primary Wound of right leg, subsequent encounter Type 2 diabetes mellitus with hyperglycemia, without long-term current use of insulin (CMS/HCC)- Primary Essential hypertension, benign (CMS/HCC) Essential hypertension, benign Diabetic polyneuropathy associated with type 2 diabetes mellitus (CMS/HCC) Traumatic ulcer of right lower leg with fat layer exposed (CMS/HCC) Chronic heart failure with preserved ejection fraction (HFpEF) (CMS/HCC) Peripheral vascular disease, unspecified (CMS/HCC) Peripheral vascular disease, unspecified Paroxysmal atrial fibrillation (CMS/HCC) Atrial fibrillation Chronic pain of both shoulders CKD stage 3b, GFR 30-44 ml/min (CMS/HCC) Type 2 diabetes mellitus 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 (CMS/HCC) Type 2 diabetes mellitus with diabetic chronic kidney disease (CMS/HCC) Internal derangement of right shoulder- Primary documented in this encounter [facility] HealthcareEvaluation note* Diagnosis Type 2 diabetes mellitus with hyperglycemia, without long-term current use of insulin (CMS/HCC)- Primary Essential hypertension, benign (CMS/HCC) Essential hypertension, benign Chronic heart failure with preserved ejection fraction (HFpEF) (CMS/HCC) Paroxysmal atrial fibrillation (CMS/HCC) Atrial fibrillation Diabetic polyneuropathy associated with type 2 diabetes mellitus (CMS/HCC) Peripheral vascular disease, unspecified (CMS/HCC) Peripheral vascular disease, unspecified CKD stage 3b, GFR 30-44 ml/min (CMS/HCC) Encounter for long-term (current) use of medications Encounter for long-term (current) use of other medications Dyslipidemia (CMS/HCC) Other and unspecified hyperlipidemia Screening PSA (prostate specific antigen) Special screening for malignant neoplasm of prostate Type 2 diabetes mellitus with stage 3b chronic kidney disease, without long-term current use of insulin (HCC) (CMS/HCC) Type 2 diabetes mellitus 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, without long-term current use of insulin (CMS/HCC) Cellulitis of right lower leg- Primary Type 2 diabetes mellitus with hyperglycemia, without long-term current use of insulin (CMS/HCC) CKD stage 3b, GFR 30-44 ml/min (CMS/HCC) Dyslipidemia (CMS/HCC) Other and unspecified hyperlipidemia Screening PSA (prostate specific antigen) Special screening for malignant neoplasm of prostate Encounter for long-term (current) use of medications Encounter for long-term (current) use of other medications Degenerative lumbar spinal stenosis Spinal stenosis of lumbar region Cellulitis of right lower leg- Primary Wound of right leg, subsequent encounter Type 2 diabetes mellitus with hyperglycemia, without long-term current use of insulin (CMS/HCC)- Primary Essential hypertension, benign (CMS/HCC) Essential hypertension, benign Diabetic polyneuropathy associated with type 2 diabetes mellitus (CMS/HCC) Traumatic ulcer of right lower leg with fat layer exposed (CMS/HCC) Chronic heart failure with preserved ejection fraction (HFpEF) (CMS/HCC) Peripheral vascular disease, unspecified (CMS/HCC) Peripheral vascular disease, unspecified Paroxysmal atrial fibrillation (CMS/HCC) Atrial fibrillation Chronic pain of both shoulders CKD stage 3b, GFR 30-44 ml/min (CMS/HCC) Type 2 diabetes mellitus 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 (CMS/HCC) Type 2 diabetes mellitus with diabetic chronic kidney disease (CMS/HCC) Chronic pain of both shoulders- Primary documented in this encounter [facility] HealthcareEvaluation note* Diagnosis Type 2 diabetes mellitus with hyperglycemia, without long-term current use of insulin (CMS/HCC)- Primary Essential hypertension, benign (CMS/HCC) Essential hypertension, benign Chronic heart failure with preserved ejection fraction (HFpEF) (CMS/HCC) Paroxysmal atrial fibrillation (CMS/HCC) Atrial fibrillation Diabetic polyneuropathy associated with type 2 diabetes mellitus (CMS/HCC) Peripheral vascular disease, unspecified (CMS/HCC) Peripheral vascular disease, unspecified CKD stage 3b, GFR 30-44 ml/min (CMS/HCC) Encounter for long-term (current) use of medications Encounter for long-term (current) use of other medications Dyslipidemia (CMS/HCC) Other and unspecified hyperlipidemia Screening PSA (prostate specific antigen) Special screening for malignant neoplasm of prostate Type 2 diabetes mellitus with stage 3b chronic kidney disease, without long-term current use of insulin (HCC) (CMS/HCC) Type 2 diabetes mellitus 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, without long-term current use of insulin (CMS/HCC) Cellulitis of right lower leg- Primary Type 2 diabetes mellitus with hyperglycemia, without long-term current use of insulin (CMS/HCC) CKD stage 3b, GFR 30-44 ml/min (CMS/HCC) Dyslipidemia (CMS/HCC) Other and unspecified hyperlipidemia Screening PSA (prostate specific antigen) Special screening for malignant neoplasm of prostate Encounter for long-term (current) use of medications Encounter for long-term (current) use of other medications Degenerative lumbar spinal stenosis Spinal stenosis of lumbar region Cellulitis of right lower leg- Primary Wound of right leg, subsequent encounter Type 2 diabetes mellitus with hyperglycemia, without long-term current use of insulin (CMS/HCC)- Primary Essential hypertension, benign (CMS/HCC) Essential hypertension, benign Diabetic polyneuropathy associated with type 2 diabetes mellitus (CMS/HCC) Traumatic ulcer of right lower leg with fat layer exposed (CMS/HCC) Chronic heart failure with preserved ejection fraction (HFpEF) (CMS/HCC) Peripheral vascular disease, unspecified (CMS/HCC) Peripheral vascular disease, unspecified Paroxysmal atrial fibrillation (CMS/HCC) Atrial fibrillation Chronic pain of both shoulders CKD stage 3b, GFR 30-44 ml/min (CMS/HCC) Type 2 diabetes mellitus 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 (CMS/HCC) Type 2 diabetes mellitus with diabetic chronic kidney disease (CMS/HCC) Chronic pain of both shoulders- Primary documented in this encounter [facility] HealthcareEvaluation note* Diagnosis Type 2 diabetes mellitus with hyperglycemia, without long-term current use of insulin (CMS/HCC)- Primary Essential hypertension, benign (CMS/HCC) Essential hypertension, benign Chronic heart failure with preserved ejection fraction (HFpEF) (CMS/HCC) Paroxysmal atrial fibrillation (CMS/HCC) Atrial fibrillation Diabetic polyneuropathy associated with type 2 diabetes mellitus (CMS/HCC) Peripheral vascular disease, unspecified (CMS/HCC) Peripheral vascular disease, unspecified CKD stage 3b, GFR 30-44 ml/min ([facility]/HCC) Encounter for long-term (current) use of medications Encounter for long-term (current) use of other medications Dyslipidemia (CMS/HCC) Other and unspecified hyperlipidemia Screening PSA (prostate specific antigen) Special screening for malignant neoplasm of prostate Type 2 diabetes mellitus with stage 3b chronic kidney disease, without long-term current use of insulin (HCC) ([facility]/HCC) Type 2 diabetes mellitus 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, without long-term current use of insulin (CMS/HCC) Cellulitis of right lower leg- Primary Type 2 diabetes mellitus with hyperglycemia, without long-term current use of insulin (CMS/HCC) CKD stage 3b, GFR 30-44 ml/min ([facility]/HCC) Dyslipidemia (CMS/HCC) Other and unspecified hyperlipidemia Screening PSA (prostate specific antigen) Special screening for malignant neoplasm of prostate Encounter for long-term (current) use of medications Encounter for long-term (current) use of other medications Degenerative lumbar spinal stenosis Spinal stenosis of lumbar region Cellulitis of right lower leg- Primary Wound of right leg, subsequent encounter Type 2 diabetes mellitus with hyperglycemia, without long-term current use of insulin ([facility]/HCC)- Primary Essential hypertension, benign (CMS/HCC) Essential hypertension, benign Diabetic polyneuropathy associated with type 2 diabetes mellitus (CMS/HCC) Traumatic ulcer of right lower leg with fat layer exposed (CMS/HCC) Chronic heart failure with preserved ejection fraction (HFpEF) (CMS/HCC) Peripheral vascular disease, unspecified (CMS/HCC) Peripheral vascular disease, unspecified Paroxysmal atrial fibrillation ([facility]/HCC) Atrial fibrillation Chronic pain of both shoulders CKD stage 3b, GFR 30-44 ml/min ([facility]/HCC) Type 2 diabetes mellitus 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 (CMS/HCC) Type 2 diabetes mellitus with diabetic chronic kidney disease (CMS/HCC) Spinal stenosis, cervical region documented in this encounter [facility] HealthcareEvaluation note* Diagnosis Type 2 diabetes mellitus with hyperglycemia, without long-term current use of insulin (CMS/HCC)- Primary Essential hypertension, benign (CMS/HCC) Essential hypertension, benign Chronic heart failure with preserved ejection fraction (HFpEF) (CMS/HCC) Paroxysmal atrial fibrillation (CMS/HCC) Atrial fibrillation Diabetic polyneuropathy associated with type 2 diabetes mellitus (CMS/HCC) Peripheral vascular disease, unspecified (CMS/HCC) Peripheral vascular disease, unspecified CKD stage 3b, GFR 30-44 ml/min ([facility]/HCC) Encounter for long-term (current) use of medications Encounter for long-term (current) use of other medications Dyslipidemia (CMS/HCC) Other and unspecified hyperlipidemia Screening PSA (prostate specific antigen) Special screening for malignant neoplasm of prostate Type 2 diabetes mellitus with stage 3b chronic kidney disease, without long-term current use of insulin (HCC) ([facility]/HCC) Type 2 diabetes mellitus 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, without long-term current use of insulin ([facility]/HCC) Cellulitis of right lower leg- Primary Type 2 diabetes mellitus with hyperglycemia, without long-term current use of insulin ([facility]/HCC) CKD stage 3b, GFR 30-44 ml/min ([facility]/HCC) Dyslipidemia (CMS/HCC) Other and unspecified hyperlipidemia Screening PSA (prostate specific antigen) Special screening for malignant neoplasm of prostate Encounter for long-term (current) use of medications Encounter for long-term (current) use of other medications Degenerative lumbar spinal stenosis Spinal stenosis of lumbar region Cellulitis of right lower leg- Primary Wound of right leg, subsequent encounter Type 2 diabetes mellitus with hyperglycemia, without long-term current use of insulin ([facility]/HCC)- Primary Essential hypertension, benign ([facility]/HCC) Essential hypertension, benign Diabetic polyneuropathy associated with type 2 diabetes mellitus ([facility]/HCC) Traumatic ulcer of right lower leg with fat layer exposed ([facility]/HCC) Chronic heart failure with preserved ejection fraction (HFpEF) ([facility]/HCC) Peripheral vascular disease, unspecified ([facility]/HCC) Peripheral vascular disease, unspecified Paroxysmal atrial fibrillation ([facility]/HCC) Atrial fibrillation Chronic pain of both shoulders CKD stage 3b, GFR 30-44 ml/min ([facility]/HCC) Type 2 diabetes mellitus 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 ([facility]/HCC) Type 2 diabetes mellitus with diabetic chronic kidney disease ([facility]/HCC) Seasonal allergic rhinitis due to pollen documented in this encounter [facility] HealthcareEvaluation note* Diagnosis Traumatic ulcer of right lower leg with fat layer exposed (CMS-HCC)- Primary Hematoma of right lower leg [facility] Diagnosis Traumatic ulcer of right lower leg with fat layer exposed ([facility]-HCC)- Primary Hematoma of right lower leg [facility]* Diagnosis Traumatic ulcer of right lower leg with fat layer exposed (CMS-HCC)- Primary Hematoma of right lower leg documented [facility]* Diagnosis Traumatic ulcer of right lower leg with fat layer exposed (CMS-HCC)- Primary Hematoma of right lower leg documented in [facility]* Diagnosis Type 2 diabetes mellitus with hyperglycemia, without long-term current use of insulin (CMS/HCC)- Primary Essential hypertension, benign (CMS/HCC) Essential hypertension, benign Chronic heart failure with preserved ejection fraction (HFpEF) ([facility]) Paroxysmal atrial fibrillation ([facility]) Atrial fibrillation Diabetic polyneuropathy associated with type 2 diabetes mellitus ([facility]) Peripheral vascular disease, unspecified ([facility]) Peripheral vascular disease, unspecified CKD stage 3b, GFR 30-44 ml/min ([facility]) Encounter for long-term (current) use of medications Encounter for long-term (current) use of other medications Dyslipidemia (CMS/HCC) Other and unspecified hyperlipidemia Screening PSA (prostate specific antigen) Special screening for malignant neoplasm of prostate Type 2 diabetes mellitus with stage 3b chronic kidney disease, without long-term current use of insulin (HCC) ([facility]) Type 2 diabetes mellitus 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, without long-term current use of insulin ([facility]/HCC) Cellulitis of right lower leg- Primary Type 2 diabetes mellitus with hyperglycemia, without long-term current use of insulin ([facility]/HCC) CKD stage 3b, GFR 30-44 ml/min ([facility]) Dyslipidemia ([facility]/HCC) Other and unspecified hyperlipidemia Screening PSA (prostate specific antigen) Special screening for malignant neoplasm of prostate Encounter for long-term (current) use of medications Encounter for long-term (current) use of other medications Degenerative lumbar spinal stenosis Spinal stenosis of lumbar region Cellulitis of right lower leg- Primary Wound of right leg, subsequent encounter Type 2 diabetes mellitus with hyperglycemia, without long-term current use of insulin (CMS/HCC)- Primary Essential hypertension, benign (CMS/HCC) Essential hypertension, benign Diabetic polyneuropathy associated with type 2 diabetes mellitus (CMS/HCC) Traumatic ulcer of right lower leg with fat layer exposed (CMS/HCC) Chronic heart failure with preserved ejection fraction (HFpEF) ([facility]) Peripheral vascular disease, unspecified (CMS/HCC) Peripheral vascular disease, unspecified Paroxysmal atrial fibrillation (CMS/HCC) Atrial fibrillation Chronic pain of both shoulders CKD stage 3b, GFR 30-44 ml/min (CMS/HCC) Type 2 diabetes mellitus 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 (CMS/HCC) Type 2 diabetes mellitus with diabetic chronic kidney disease (CMS/HCC) Chronic pain of both shoulders- Primary Rotator cuff arthropathy, right documented in this encounter [facility] HealthcareEvaluation note* Diagnosis Type 2 diabetes mellitus with hyperglycemia, without long-term current use of insulin (CMS/HCC)- Primary Essential hypertension, benign (CMS/HCC) Essential hypertension, benign Chronic heart failure with preserved ejection fraction (HFpEF) (CMS/HCC) Paroxysmal atrial fibrillation (CMS/HCC) Atrial fibrillation Diabetic polyneuropathy associated with type 2 diabetes mellitus (CMS/HCC) Peripheral vascular disease, unspecified (CMS/HCC) Peripheral vascular disease, unspecified CKD stage 3b, GFR 30-44 ml/min (CMS/HCC) Encounter for long-term (current) use of medications Encounter for long-term (current) use of other medications Dyslipidemia (CMS/HCC) Other and unspecified hyperlipidemia Screening PSA (prostate specific antigen) Special screening for malignant neoplasm of prostate Type 2 diabetes mellitus with stage 3b chronic kidney disease, without long-term current use of insulin (HCC) (CMS/HCC) Type 2 diabetes mellitus 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, without long-term current use of insulin (CMS/HCC) Cellulitis of right lower leg- Primary Type 2 diabetes mellitus with hyperglycemia, without long-term current use of insulin (CMS/HCC) CKD stage 3b, GFR 30-44 ml/min (CMS/HCC) Dyslipidemia (CMS/HCC) Other and unspecified hyperlipidemia Screening PSA (prostate specific antigen) Special screening for malignant neoplasm of prostate Encounter for long-term (current) use of medications Encounter for long-term (current) use of other medications Degenerative lumbar spinal stenosis Spinal stenosis of lumbar region Cellulitis of right lower leg- Primary Wound of right leg, subsequent encounter Type 2 diabetes mellitus with hyperglycemia, without long-term current use of insulin (CMS/HCC)- Primary Essential hypertension, benign (CMS/HCC) Essential hypertension, benign Diabetic polyneuropathy associated with type 2 diabetes mellitus (CMS/HCC) Traumatic ulcer of right lower leg with fat layer exposed (CMS/HCC) Chronic heart failure with preserved ejection fraction (HFpEF) (CMS/HCC) Peripheral vascular disease, unspecified (CMS/HCC) Peripheral vascular disease, unspecified Paroxysmal atrial fibrillation (CMS/HCC) Atrial fibrillation Chronic pain of both shoulders CKD stage 3b, GFR 30-44 ml/min (CMS/HCC) Type 2 diabetes mellitus 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 (CMS/HCC) Type 2 diabetes mellitus with diabetic chronic kidney disease (CMS/HCC) Acute pain of right knee- Primary Acute pain of left knee Arthritis of right knee Arthritis of left knee Instability of left knee joint Varus deformity, not elsewhere classified, left knee documented in this encounter [facility]* Diagnosis Type 2 diabetes mellitus with hyperglycemia, without long-term current use of insulin (CMS/HCC)- Primary Essential hypertension, benign (CMS/HCC) Essential hypertension, benign Chronic heart failure with preserved ejection fraction (HFpEF) (CMS/HCC) Paroxysmal atrial fibrillation (CMS/HCC) Atrial fibrillation Diabetic polyneuropathy associated with type 2 diabetes mellitus (CMS/HCC) Peripheral vascular disease, unspecified (CMS/HCC) Peripheral vascular disease, unspecified CKD stage 3b, GFR 30-44 ml/min ([facility]/HCC) Encounter for long-term (current) use of medications Encounter for long-term (current) use of other medications Dyslipidemia (CMS/HCC) Other and unspecified hyperlipidemia Screening PSA (prostate specific antigen) Special screening for malignant neoplasm of prostate Type 2 diabetes mellitus with stage 3b chronic kidney disease, without long-term current use of insulin (HCC) ([facility]/HCC) Type 2 diabetes mellitus 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, without long-term current use of insulin ([facility]/HCC) Cellulitis of right lower leg- Primary Type 2 diabetes mellitus with hyperglycemia, without long-term current use of insulin (CMS/HCC) CKD stage 3b, GFR 30-44 ml/min (CMS/HCC) Dyslipidemia (CMS/HCC) Other and unspecified hyperlipidemia Screening PSA (prostate specific antigen) Special screening for malignant neoplasm of prostate Encounter for long-term (current) use of medications Encounter for long-term (current) use of other medications Degenerative lumbar spinal stenosis Spinal stenosis of lumbar region Cellulitis of right lower leg- Primary Wound of right leg, subsequent encounter Type 2 diabetes mellitus with hyperglycemia, without long-term current use of insulin (CMS/HCC)- Primary Essential hypertension, benign (CMS/HCC) Essential hypertension, benign Diabetic polyneuropathy associated with type 2 diabetes mellitus (CMS/HCC) Traumatic ulcer of right lower leg with fat layer exposed (CMS/HCC) Chronic heart failure with preserved ejection fraction (HFpEF) (CMS/HCC) Peripheral vascular disease, unspecified (CMS/HCC) Peripheral vascular disease, unspecified Paroxysmal atrial fibrillation (CMS/HCC) Atrial fibrillation Chronic pain of both shoulders CKD stage 3b, GFR 30-44 ml/min (CMS/HCC) Type 2 diabetes mellitus 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 (CMS/HCC) Type 2 diabetes mellitus with diabetic chronic kidney disease (CMS/HCC) Spinal stenosis, cervical region documented in this encounter [facility] HealthcareEvaluation note* Diagnosis Type 2 diabetes mellitus with hyperglycemia, without long-term current use of insulin (CMS/HCC)- Primary Essential hypertension, benign (CMS/HCC) Essential hypertension, benign Chronic heart failure with preserved ejection fraction (HFpEF) (CMS/HCC) Paroxysmal atrial fibrillation (CMS/HCC) Atrial fibrillation Diabetic polyneuropathy associated with type 2 diabetes mellitus (CMS/HCC) Peripheral vascular disease, unspecified (CMS/HCC) Peripheral vascular disease, unspecified CKD stage 3b, GFR 30-44 ml/min ([facility]/HCC) Encounter for long-term (current) use of medications Encounter for long-term (current) use of other medications Dyslipidemia (CMS/HCC) Other and unspecified hyperlipidemia Screening PSA (prostate specific antigen) Special screening for malignant neoplasm of prostate Type 2 diabetes mellitus with stage 3b chronic kidney disease, without long-term current use of insulin (HCC) ([facility]/HCC) Type 2 diabetes mellitus 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, without long-term current use of insulin ([facility]/HCC) Cellulitis of right lower leg- Primary Type 2 diabetes mellitus with hyperglycemia, without long-term current use of insulin (CMS/HCC) CKD stage 3b, GFR 30-44 ml/min ([facility]/HCC) Dyslipidemia (CMS/HCC) Other and unspecified hyperlipidemia Screening PSA (prostate specific antigen) Special screening for malignant neoplasm of prostate Encounter for long-term (current) use of medications Encounter for long-term (current) use of other medications Degenerative lumbar spinal stenosis Spinal stenosis of lumbar region Cellulitis of right lower leg- Primary Wound of right leg, subsequent encounter Type 2 diabetes mellitus with hyperglycemia, without long-term current use of insulin (CMS/HCC)- Primary Essential hypertension, benign (CMS/HCC) Essential hypertension, benign Diabetic polyneuropathy associated with type 2 diabetes mellitus (CMS/HCC) Traumatic ulcer of right lower leg with fat layer exposed (CMS/HCC) Chronic heart failure with preserved ejection fraction (HFpEF) (CMS/HCC) Peripheral vascular disease, unspecified (CMS/HCC) Peripheral vascular disease, unspecified Paroxysmal atrial fibrillation (CMS/HCC) Atrial fibrillation Chronic pain of both shoulders CKD stage 3b, GFR 30-44 ml/min (CMS/HCC) Type 2 diabetes mellitus 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 (CMS/HCC) Type 2 diabetes mellitus with diabetic chronic kidney disease (CMS/HCC) Spinal stenosis, cervical region documented in this encounter [facility] HealthcareEvaluation note* Diagnosis Type 2 diabetes mellitus with hyperglycemia, without long-term current use of insulin (HCC)- Primary Essential hypertension, benign Essential hypertension, benign Chronic heart failure with preserved ejection fraction (HFpEF) (HCC) Paroxysmal atrial fibrillation (HCC) Atrial fibrillation Diabetic polyneuropathy associated with type 2 diabetes mellitus (HCC) Peripheral vascular disease, unspecified CKD stage 3b, GFR 30-44 ml/min ([facility] Encounter for long-term (current) use of medications Encounter for long-term (current) use of other medications Dyslipidemia Other and unspecified hyperlipidemia Screening PSA (prostate specific antigen) Special screening for malignant neoplasm of prostate Type 2 diabetes mellitus with stage 3b chronic kidney disease, without long-term current use of insulin (HCC) Type 2 diabetes mellitus 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, without long-term current use of insulin (HCC) Cellulitis of right lower leg- Primary Type 2 diabetes mellitus with hyperglycemia, without long-term current use of insulin (HCC) CKD stage 3b, GFR 30-44 ml/min ([facility]) Dyslipidemia Other and unspecified hyperlipidemia Screening PSA (prostate specific antigen) Special screening for malignant neoplasm of prostate Encounter for long-term (current) use of medications Encounter for long-term (current) use of other medications Degenerative lumbar spinal stenosis Spinal stenosis of lumbar region Type 2 diabetes mellitus with hyperglycemia, without long-term current use of insulin (HCC)- Primary Essential hypertension, benign Essential hypertension, benign Diabetic polyneuropathy associated with type 2 diabetes mellitus (HCC) Traumatic ulcer of right lower leg with fat layer exposed (HCC) Chronic heart failure with preserved ejection fraction (HFpEF) (HCC) Peripheral vascular disease, unspecified Paroxysmal atrial fibrillation (HCC) Atrial fibrillation Chronic pain of both shoulders CKD stage 3b, GFR 30-44 ml/min ([facility]-HCC) Type 2 diabetes mellitus 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 (HCC) Type 2 diabetes mellitus with diabetic chronic kidney disease (HCC) Type 2 diabetes mellitus with hyperglycemia, without long-term current use of insulin (HCC)- Primary Essential hypertension, benign Essential hypertension, benign Diabetic polyneuropathy associated with type 2 diabetes mellitus (HCC) Chronic heart failure with preserved ejection fraction (HFpEF) (HCC) Paroxysmal atrial fibrillation (HCC) Atrial fibrillation Peripheral vascular disease, unspecified [facility]* Type Description Date Medical History HTN Medical History DM II Medical History GERD Medical History hyperlipidemia Medical History asthma Surgical History BILATERAL ROTATOR CUFF Surgical History APPENDECTOMY Surgical History neck surgery on vessles Surgical History carpal tunnel release right Surgical History cardiac pacemeker Surgical History broken neck Hospitalization History see above [employer] Other History general Narrative - Reported* Type Description Date Medical History HTN Medical History DM II Medical History GERD Medical History hyperlipidemia Medical History asthma Surgical History BILATERAL ROTATOR CUFF Surgical History APPENDECTOMY Surgical History neck surgery on vessles Surgical History carpal tunnel release right Surgical History cardiac pacemeker Surgical History broken neck Surgical History carpel tunnel L Hospitalization History see above [employer] Other Hisaupd general Narrative - Reported* Type Description Date Medical History HTN (hypertension) Medical History Diabetes Medical History Hyperlipidemia Medical History Asthma Surgical History BILATERAL ROTATOR CUFF Surgical History APPENDECTOMY Surgical History neck surgery on vessles Surgical History carpal tunnel release right Surgical History cardiac pacemeker Surgical History broken neck Surgical History carpel tunnel L Hospitalization History see above [employer] Other Hospital Discharge instructions Additional Instructions DISCHARGE [...] appointment to see your physician in two weeks.[facility] Work Phone: InstructionsNot on filedocumented in this encounter [facility] filedocumented in this encounter [facility]ructionsNot on filedocumented in this encounter [facility] System[facility] for referral (narrative)* Consultation (Routine) - Pending Review Specialty Diagnoses / Procedures Referred By Contac t Referred To Contact Wound Care Diagnoses Cellulitis of right lower leg Wound of right leg, subsequent encounter Procedures OK OFFICE/OUTPATIENT NEW HIGH MDM 60 MINUTES Idris Jose MD [address] [place] [address] Sekou Sanches MD [address], [place] [address] Referral ID Status Reason Start Date Expiration Date Visits Requested Visits Authorized [id number] Pending Review Specialty Services Required 04/10/2024 10/07/2024 1 1 [facility] for visit Narrative* Rehabilitation - Outpatient (Routine) - Authorized Specialty Diagnoses / Procedures Referred By Contac t Referred To Contact Physical Therapy Diagnoses Chronic pain of both shoulders Procedures OK OFFICE/OUTPATIENT NEW HIGH MDM 60 MINUTES Idris Jose MD [address] [place] [address] Phone: tel: fax: Eugenie Jenkins PT Referral ID Status Reason Start Date Expiration Date Visits Requested Visits Authorized [id number] Authorized Specialty Services Required 07/04/2024 12/31/2024 10 10 [facility] for visit Narrative* Rehabilitation - Outpatient (Routine) - Authorized Specialty Diagnoses / Procedures Referred By Contac t Referred To Contact Physical Therapy Diagnoses Chronic pain of both shoulders Procedures OK OFFICE/OUTPATIENT NEW HIGH MDM 60 MINUTES Idris Jsoe MD [address] [place] [address] Phone: tel: fax: Eugenie Jenkins PT Referral ID Status Reason Start Date Expiration Date Visits Requested Visits Authorized [id number] Authorized Specialty Services Required 07/04/2024 07/02/2025 10 30 [facility] Summary Purpose Family History Relationship Condition Age at Onset Recorded Date/T sarina brother Heart disease Unknown Cerebrovascular accident (CVA) Unknown Not Specified Heart disease Unknown father Cerebrovascular accident (CVA) Unknown Advance Directives Advance Directive Response Recorded Date/ Time Advance Directives No October 01 11:34am Documents on File Type Date Recorded Patient Inventory Control/Shipping Receiving Expl anation Power of Pot Fluxer 02/19/2024 11:25 AM cande r of ip attorney Documents on File Type Date Recorded Patient Inventory Control/Shipping Receiving Expl anation Power of Pot Fluxer 02/19/2024 11:25 AM cande r of ip attorney Hospital Course Note MR#: [id number] [facility] Pt. 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 DATE CREATED AUTHOR AUTHOR'S ORGANIZ ATION 04/04/2022 [facility] DATE CREATED AUTHOR AUTHOR'S ORGANIZ ATION 08/06/2022 [facility] DATE CREATED AUTHOR AUTHOR'S ORGANIZ ATION 12/13/2022 [facility] DATE CREATED AUTHOR AUTHOR'S ORGANIZ ATION 08/04/2024 [facility] DATE CREATED AUTHOR AUTHOR'S ORGANIZ ATION 09/09/2024 [facility] EPIC DATE CREATED AUTHOR AUTHOR'S ORGANIZ ATION 11/14/2024 [facility] REASON FOR VISIT (unrecogniz ed section and content) Reason Comments Leg Swelling Open sore Reason Comments Follow-up [facility] ER F/U, RT LEG W OUND Reason Comments Wound Check Specialty Diagnoses / Procedures Referred By Lloyd harper Referred To Contact Wound Care Diagnoses Wound of right leg, subsequent encounter Idris Jose MD [address] [place] [address] Phone: tel: fax: [facility] [address] [place] [address] Phone: tel: fax: Referral ID Status Reason Start Date Expiration Date Visits Requested Visits Authorized [id number] Pending Review Specialty Services Required 04/17/2025 1 1 Reason Comments Follow-up Shoulder Pain Both shoulders Reason Comments Pain Specialty Diagnoses / Procedures Referred By Contac t Referred To Contact Orthopaedic Surgery Diagnoses Chronic pain of both shoulders Idris Jose MD [address] [place] [address] Phone: tel: fax: Jr. Halie Felton, DO [address] [address] Phone: tel: fax: Referral ID Status Reason Start Date Expiration Date V isits Requested Visits Authorized [id number] Closed Specialty Services Required 07/04/2024 12/31/2024 1 1 Reason Comments Wound Check Specialty Diagnoses / Procedures Referred By Contac t Referred To Contact Wound Care Diagnoses Wound of right leg, subsequent encounter Idris Jose MD [address] [place] [address] Phone: tel: fax: [facility] [address] [place] [address] Phone: tel: fax: Referral ID Status Reason Start Date Expiration Date Visits Requested Visits Authorized [id number] Pending Review Specialty Services Required 04/17/2025 1 1 Reason Comments Follow-up Reason Onset Date Comments CT Scan 07/30/2024 Reason Comments Med Refill Reason Onset Date Comments Med Refill 08/14/2024 Reason Onset Date Comments Care Navigation 04/22/2024 Reason Comments Wound Check Specialty Diagnoses / Procedures Referred By Contac t Referred To Contact Wound Care Diagnoses Wound of right leg, subsequent encounter Idris Jose MD [address] [place] [address] Phone: tel: fax: [facility] [address] [place] [address] Phone: tel: fax: Referral ID Status Reason Start Date Expiration Date Visits Requested Visits Authorized [id number] Pending Review Specialty Services Required 04/17/2025 1 1 Reason Onset Date Comments Care Navigation 05/07/2024 Reason Onset Date Comments Check on PT fu 08/23/2024 fu 08/26/2024 Call Back 08/26/2024 Reason Comments Pain Reason Onset Date Comments Med Refill 12/03/2024 Reason Comments Follow-up Care Teams (unrecognized sec tion and content) Team Status: Inactive Member Role Status Dates Idris Jose MD Primary Care Provider Active Darien Escamilla MD Attending Provider Active Team Status: Active Member Role Status Dates Idris Jose MD Primary Care Provider Active Upholstery Technician Relationship Specialty Start Date End Date Idris Jose MD PCP - General Cardiology 11/22/22 Upholstery Technician Relationship Specialty Start Date End Date Idris Jose MD [address] [place] [address] PCP - General Family Medicine 08/21/23 Upholstery Technician Relationship Specialty Start Date End Date Idris Jose MD [address] [place] [address] PCP - General Family Medicine 08/21/23 Upholstery Technician Relationship Specialty Start Date End Date Idris Jose MD [address] [place] [address] PCP - General Family Medicine 08/21/23 Upholstery Technician Relationship Specialty Start Date End Date Idris Jose MD [address] [place] [address] PCP - General Family Medicine 08/21/23 Upholstery Technician Relationship Specialty Start Date End Date Idris Jose MD [address] [place] [address] PCP - General Family Medicine 08/21/23 Upholstery Technician Relationship Specialty Start Date End Date Idris Jose MD [address] [place] [address] PCP - General Family Medicine 08/21/23 Upholstery Technician Relationship Specialty Start Date End Date Idris Jose MD [address] [place] [address] PCP - General Family Medicine 08/21/23 Upholstery Technician Relationship Specialty Start Date End Date Idris Jose MD PCP - General 11/02/16 Upholstery Technician Relationship Specialty Start Date End Date Idris Jose MD [address] [place] [address] PCP - General Family Medicine 08/21/23 Upholstery Technician Relationship Specialty Start Date End Date Idris Jose MD [address] [place] [address] PCP - General Family Medicine 08/21/23 Upholstery Technician Relationship Specialty Start Date End Date Idris Jose MD PCP - General 11/02/16 Upholstery Technician Relationship Specialty Start Date End Date Idris Jose MD [address] [place] [address] PCP - General Family Medicine 08/21/23 Upholstery Technician Relationship Specialty Start Date End Date Idris Jose MD [address] [place] [address] PCP - General Family Medicine 08/21/23 Upholstery Technician Relationship Specialty Start Date End Date Idris Jose MD [address] [place] [address] PCP - General Family Medicine 08/21/23 Upholstery Technician Relationship Specialty Start Date End Date Idris Jose MD [address] [place] [address] PCP - General Family Medicine 08/21/23 Upholstery Technician Relationship Specialty Start Date End Date Idris Jose MD [address] [place] [address] PCP - General Family Medicine 08/21/23 Upholstery Technician Relationship Specialty Start Date End Date Idris Jose MD [address] [place] [address] PCP - General Family Medicine 08/21/23 Upholstery Technician Relationship Specialty Start Date End Date Idris Jose MD [address] [place] [address] PCP - General Family Medicine 08/21/23 Upholstery Technician Relationship Specialty Start Date End Date Idris Jose MD [address] [place] [address] PCP - General Family Medicine 08/21/23 Upholstery Technician Relationship Specialty Start Date End Date Idris Jose MD PCP - General 11/02/16 Upholstery Technician Relationship Specialty Start Date End Date Idris Jose MD [address] [place] [address] PCP - General Family Medicine 08/21/23 Upholstery Technician Relationship Specialty Start Date End Date Idris Jose MD [address] [place] [address] PCP - General Family Medicine 08/21/23 Upholstery Technician Relationship Specialty Start Date End Date Idris Jose MD [address] [place] [address] PCP - General Family Medicine 08/21/23 Upholstery Technician Relationship Specialty Start Date End Date Idris Jose MD [address] [place] [address] PCP - General Family Medicine 08/21/23 Upholstery Technician Relationship Specialty Start Date End Date Idris Jose MD [address] [place] [address] PCP - General Family Medicine 08/21/23 Upholstery Technician Relationship Specialty Start Date End Date Idris Jose MD [address] [place] [address] PCP - General Family Medicine 08/21/23 Upholstery Technician Relationship Specialty Start Date End Date Idris Jose MD [address] [place] [address] PCP - General Family Medicine 08/21/23 Upholstery Technician Relationship Specialty Start Date End Date Idris Jose MD [address] [place] [address] PCP - General Family [facility] 08/21/23 Upholstery Technician Relationship Specialty Start Date End Date Idris Jose MD PCP - General 11/02/16 Upholstery Technician Relationship Specialty Start Date End Date Idris Jose MD PCP - General 11/02/16 Upholstery Technician Relationship Specialty Start Date End Date Idris Jose MD PCP - General 11/02/16 Upholstery Technician Relationship Specialty Start Date End Date Idris Jose MD PCP - General 11/02/16 Upholstery Technician Relationship Specialty Start Date End Date Idris Jose MD PCP - General 11/02/16 Upholstery Technician Relationship Specialty Start Date End Date Idris Jose MD PCP - General 11/02/16 Upholstery Technician Relationship Specialty Start Date End Date Idris Jose MD PCP - General 11/02/16 Upholstery Technician Relationship Specialty Start Date End Date Idris Jose MD [address] [place] [address] PCP General Family Medicine 08/21/23 Upholstery Technician Relationship Specialty Start Date End Date Idris Jose MD [address] [place] [address] PCP - [facility] Family Medicine 08/21/23 Upholstery Technician Relationship Specialty Start Date End Date Idris Jose MD [address] [place] [address] PCP - General Family Medicine 08/21/23 Goals (unrecognized section and content) Goals may [...] BE BASED ON THE PRIMARY CLINICAL RECORDS. [facility] [employer] [facility]. provides no warranty or guarantee of the accuracy or completeness of information in this document.
--- NOTE | 2025-01-04 15:56 | ED.GENADUL1 ---
HPI HPI - General Adult General Chief complaint: Chest Pain Stated complaint: CHEST PAIN/BURNING Time Seen by Provider: 01/04/25 15:54 History of Present Illness HPI narrative: 79-year-old male presents to the emergency department for pain and burning in his chest. It began during the middle of the night, he estimates between 2 and 3:00 in the morning. It has been there continuously since then until the paramedics gave him nitroglycerin. They also gave him an aspirin pill. He states he does not believe he has any more of this burning or pain. He has a history of a valve replacement and he is not sure if he has ever had a heart catheterization in the past. He does not believe he has any stents. No fever cough back pain or shortness of breath. Related Data Home Medications �Medication �Instructions �Recorded �Confirmed atorvastatin 40 mg tablet 40 mg PO DAILY 03/23/24 01/04/25 azelastine 137 mcg (0.1 %) nasal 2 spray intranasal BID 03/23/24 01/04/25 spray carvedilol 6.25 mg tablet 6.25 mg PO BID 03/23/24 01/04/25 furosemide 20 mg tablet 20 mg PO BID 03/23/24 01/04/25 gabapentin 600 mg tablet 600 mg PO TID 03/23/24 01/04/25 glimepiride 2 mg tablet 2 mg PO BID 03/23/24 01/04/25 montelukast 10 mg tablet 10 mg PO DAILY 03/23/24 01/04/25 rivaroxaban 20 mg tablet (Xarelto) 20 mg PO QPM 03/23/24 01/04/25 ropinirole 0.25 mg tablet 0.25 mg PO BEDTIME 03/23/24 01/04/25 tamsulosin 0.4 mg capsule 0.4 mg PO DAILY 03/23/24 01/04/25 aspirin 81 mg capsule 81 mg PO DAILY 07/30/24 01/04/25 ferrous sulfate 325 mg (65 mg 325 mg PO .3 days a week 07/30/24 01/04/25 iron) tablet,delayed release pantoprazole 40 mg tablet,delayed 40 mg PO BID 07/30/24 01/04/25 release Allergies Allergy/AdvReac Type Severity Reaction Status Date / Time Sulfa (Sulfonamide AdvReac Intermediate swelling Verified 07/22/23 12:49 Antibiotics) Opioid HPI Opioid Management Most Recent Opioid Data: Last Pain Scale 0 08/05/24, 13:45 Review of Systems ROS Narrative A ten point review of systems is negative except as noted above. [facility] Medical History (Updated 01/04/25 @ 18:08 by Mir Jerome MD) Right shoulder pain �M25.511 - Pain in right shoulder (ICD-10) Arthritis �M19.90 - Unspecified osteoarthritis, unspecified site (ICD-10) High cholesterol �E78.00 - Pure hypercholesterolemia, unspecified (ICD-10) Diabetes �E11.9 - Type 2 diabetes mellitus without complications (ICD-10) CKD (chronic kidney disease) �N18.9 - Chronic kidney disease, unspecified (ICD-10) BPH (benign prostatic hyperplasia) �N40.0 - Benign prostatic hyperplasia without lower urinary tract symptoms (ICD-10) GERD (gastroesophageal reflux disease) �K21.9 - Gastro-esophageal reflux disease without esophagitis (ICD-10) Atrial fibrillation �I48.91 - Unspecified atrial fibrillation (ICD-10) CHF (congestive heart failure) �I50.9 - Heart failure, unspecified (ICD-10) PVD (peripheral vascular disease) �I73.9 - Peripheral vascular disease, unspecified (ICD-10) HTN (hypertension) �I10 - Essential (primary) hypertension (ICD-10) DVT (deep venous thrombosis) �I82.409 - Acute embolism and thrombosis of unspecified deep veins of unspecified lower extremity (ICD-10) Cervical radiculopathy �M54.12 - Radiculopathy, cervical region (ICD-10) Diabetic neuropathy �E11.40 - Type 2 diabetes mellitus with diabetic neuropathy, unspecified (ICD-10) Lumbar stenosis �M48.061 - Spinal stenosis, lumbar region without neurogenic claudication (ICD-10) Cervical stenosis of spine �M48.02 - Spinal stenosis, cervical region (ICD-10) 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 - Personal history of other diseases of the nervous system and sense organs (ICD-10) RLS (restless legs syndrome) �G25.81 - Restless legs syndrome (ICD-10) Surgical History (Updated 07/30/24 @ 10:08 by Arlet Jerry) Status post trigger finger release �Z98.890 - Other specified postprocedural states (ICD-10) Acquired fusion of cervical spine �M43.22 - Fusion of spine, cervical region (ICD-10) History of carpal tunnel release of both wrists �Z98.890 - Other specified postprocedural states (ICD-10) History of left-sided carotid endarterectomy �Z98.890 - Other specified postprocedural states (ICD-10) Pacemaker �Z95.0 - Presence of cardiac pacemaker (ICD-10) History of appendectomy �Z90.49 - Acquired absence of other specified parts of digestive tract (ICD-10) H/O aortic valve replacement �Z95.2 - Presence of prosthetic heart valve (ICD-10) History of cardiac ablation for atrial fibrillation �Z98.890 - Other specified postprocedural states (ICD-10) �I48.91 - Unspecified atrial fibrillation (ICD-10) History of repair of rotator cuff �Z98.890 - Other specified postprocedural states (ICD-10) Social History Smoking status: Former smoker Little interest or pleasure in doing things: not at all Feeling down, depressed, or hopeless: not at all Exam Narrative Exam Narrative: Nurses note and vital signs reviewed and patient is not hypoxic. General: The patient appears well and in no apparent distress. Patient is resting comfortably on cart. Skin: Warm, dry, no pallor noted. There is no rash noted. Head: Normocephalic, atraumatic Eye: Normal conjunctiva, no drainage Ears, Nose, Mouth, and Throat: oral mucosa is moist. Nares patent. Cardiovascular: Regular Rate and Rhythm Respiratory: Patient is in no distress, no accessory muscle use, lungs are clear to auscultation, no wheezing, rales or rhonchi Back: non-tender GI: Soft and nontender Musculoskeletal: The patient has no evidence of calf tenderness, no pitting edema, symmetrical pulses noted bilaterally Neurological: A&O, normal speech Psychiatric: Cooperative Constitutional Vital Signs, click to edit/add: Last Vital Signs Temp 98.3 F 01/04/25 15:51 Pulse 68 01/04/25 17:20 Resp 20 01/04/25 17:20 BP 127/60 01/04/25 17:01 Pulse Ox 96 01/04/25 17:20 O2 Del Method Room Air 01/04/25 15:51 Course Vital Signs Vital signs: Vital Signs Temperature 98.3 F 01/04/25 15:51 Pulse Rate 79 01/04/25 15:51 Respiratory Rate 18 01/04/25 15:51 Blood Pressure 160/82 H 01/04/25 15:51 Pulse Oximetry 98 01/04/25 15:51 Oxygen Delivery Method Room Air 01/04/25 15:51 Temperature 98.3 F 01/04/25 15:51 Pulse Rate 68 01/04/25 17:20 Respiratory Rate 20 01/04/25 17:20 Blood Pressure 127/60 01/04/25 17:01 Pulse Oximetry 96 01/04/25 17:20 Oxygen Delivery Method Room Air 01/04/25 15:51 Medical Decision Making MDM Narrative Medical decision making narrative: 2 sets of troponin are negative and his symptoms have resolved completely. He attributes it to heartburn, due to a hamburger that he had eaten. There is no evidence of CAD right now and he will be discharged home. Treatment diagnosis and follow-up were discussed with the patient. Differential Diagnosis Differential Diagnosis: STEMI, NSTEMI, GE reflux, chest pain Lab Data Lab results reviewed: Yes I reviewed the patient's lab results Labs: Lab Results 01/04/25 01/04/25 Range/Units 16:10 17:13 WBC 9.2 (4.0-11.0) 10^3/uL RBC 3.68 L (4.70-6.10) 10^6/uL Hgb 11.3 L (14.0-18.0) g/dL Hct 34.1 L (42.0-54.0) % MCV 92.7 (80.0-94.0) fL MCH 30.7 (25.9-34.0) pg MCHC 33.1 (29.9-35.2) g/dL RDW 13.9 (11.0-15.0) % Plt Count 186 (150-450) 10^3/uL MPV 10.7 (9.5-13.5) fL Neut % (Auto) 79.0 H (43.0-75.0) % Lymph % (Auto) 11.5 L (20.5-60.0) % Canadian % (Auto) 7.6 (1.7-12.0) % Eos % (Auto) 1.3 (0.9-7.0) % Baso % (Auto) 0.3 (0.2-2.0) % Neut # (Auto) 7.3 H (1.4-6.5) 10^3/uL Lymph # (Auto) 1.1 L (1.2-3.8) 10^3/uL Canadian # (Auto) 0.7 (0.3-0.8) 10^3/uL Eos # (Auto) 0.1 (0.0-0.7) 10^3/uL Baso # (Auto) 0.0 (0.0-0.1) 10^3/uL Abs Immat Gran (auto) 0.03 (0.00-0.03) 10^3/uL Imm/Tot Granulo (auto) 0.3 (0.0-0.5) % Sodium 145 (136-145) mmol/L Potassium 4.2 (3.5-5.1) mmol/L Chloride 106 (98-107) mmol/L Carbon Dioxide 28.1 (21.0-32.0) mmol/L Anion Gap 15.1 BUN 54.0 H (7.0-18.0) mg/dL Creatinine 1.80 H (0.70-1.30) mg/dL Est GFR ( Amer) 44 L (>=60 mL/min/1.73m^2) Est GFR (Non-Af Amer) 36 L (>=60 mL/min/1.73m^2) BUN/Creatinine Ratio 30.0 Glucose 149 H (74-106) mg/dL Calcium 9.1 (8.5-10.1) mg/dL Troponin I High Sens 7.0 6.7 (4.0-76.1) pg/mL Imaging Data Chest x-ray: Radiologist's impression: ITS Impressions Chest X-Ray 01/04/25 15:55 IMPRESSION: No acute process. Impression dictated by: Jacky Hollingsworth M.D. 01/04/2025 5:15 PM Dictation Location: [place] [id number] Electronically authenticated by: [id number] Y Date: 01/04/2025 17:15 ECG Data Attestation: I personally reviewed and interpreted this ECG as follows: (EKG on my interpretation shows sinus rhythm with a right bundle branch block and a rate of 68.) Discharge Plan Discharge Chief Complaint: Chest Pain Clinical Impression: Chest pain Patient Disposition: Home, Self-Care Time of Disposition Decision: 18:08 Condition: Good Mode of Transportation: Private Vehicle Prescriptions / Home Meds: No Action atorvastatin 40 mg tablet 40 mg PO DAILY carvedilol 6.25 mg tablet 6.25 mg PO BID gabapentin 600 mg tablet 600 mg PO TID glimepiride 2 mg tablet 2 mg PO BID tamsulosin 0.4 mg capsule 0.4 mg PO DAILY ropinirole 0.25 mg tablet 0.25 mg PO BEDTIME montelukast 10 mg tablet 10 mg PO DAILY furosemide 20 mg tablet 20 mg PO BID azelastine 137 mcg (0.1 %) spray,non-aerosol 2 spray INTRANASAL BID Xarelto 20 mg tablet 20 mg PO QPM pantoprazole 40 mg tablet,delayed release (DR/EC) 40 mg PO BID aspirin 81 mg capsule 81 mg PO DAILY ferrous sulfate 325 mg (65 mg iron) tablet,delayed release (DR/EC) 325 mg PO .3 days a week Print Language: Monegasque Instructions: Chest Pain (ED) Referrals: Idris Donnelly MD [Primary Care Provider, Family Practice] - 1 week
[2025-01-04 16:21] LABS: Hematocrit 34.1 % (42.0-54.0); Hemoglobin 11.3 g/dL (14.0-18.0); Immature Granulocytes Abs Auto 0.03 10^3/uL (0.00-0.03); Immature Granulocytes Pct Auto 0.3 % (0.0-0.5); Lymphocytes Absolute Auto 1.1 10^3/uL (1.2-3.8); Mean Corpuscular HGB Conc 33.1 g/dL (29.9-35.2); Mean Corpuscular Hemoglobin 30.7 pg (25.9-34.0); Mean Corpuscular Volume 92.7 fL (80.0-94.0); Platelet Count 186 10^3/uL (150-450); Red Blood Count 3.68 10^6/uL (4.70-6.10); White Blood Count 9.2 10^3/uL (4.0-11.0)
--- NOTE | 2025-01-04 16:24 | PC.NURSE ---
holding Nitro at this time per ER DR, no chest pain at this time.
[2025-01-04 16:42] LABS: Anion Gap 15.1; Blood Urea Nitrogen 54.0 mg/dL (7.0-18.0); Calcium 9.1 mg/dL (8.5-10.1); Carbon Dioxide 28.1 mmol/L (21.0-32.0); Chloride 106 mmol/L (98-107); Estimated GFR (African America 44 (>=60 mL/min/1.73m^2); Estimated GFR (Non-African Ame 36 (>=60 mL/min/1.73m^2); Glucose 149 mg/dL (74-106); Potassium 4.2 mmol/L (3.5-5.1); Sodium 145 mmol/L (136-145)
== END 2025-01-04 18:27 | disposition home or self-care (01) ==
PROVIDERS: Emergency Provider Emergency Medicine; PCP Family Medicine
DX: R07.9 Chest pain, unspecified (principal); Z95.2 Presence of prosthetic heart valve; Z95.0 Presence of cardiac pacemaker; Z87.891 Personal history of nicotine dependence
CPT/HCPCS: 36415; 71045; 80048; 84484; 85025; 93005; 99285